=== PATIENT | male | born 1960 | race Caucasian/White ===

== ENCOUNTER 2020-11-08 15:40 | Emergency (ER) | payer OTHER, SELFPAY ==
--- NOTE | 2020-11-08 15:27 | ECG_ITS ---
Test Reason : CHEST PAIN Blood Pressure : / mmHG Vent. Rate : 097 BPM Atrial Rate : 097 BPM P-R Int : 194 ms QRS Dur : 168 ms QT Int : 408 ms P-R-T Axes : 059 117 043 degrees QTc Int : 518 ms Sinus rhythm with occasional Premature ventricular complexes Right bundle branch block Abnormal ECG When compared with ECG of 25-MAR-2019 10:10, Premature ventricular complexes are now Present Referred By: Generic ED Physician Electronically Signed By:Bryan Juarez
[2020-11-08 15:33] VITALS: BP 126/65; PULSE 100; O2SAT 95
[2020-11-08 17:35] VITALS: BP 155/81; PULSE 86; RESP 14; TEMP 36.4; O2SAT 97; BMI 35.4
[2020-11-08 17:52] LABS: MANUAL DIFF FLAG NO
[2020-11-08 17:59] LABS: Basophils Absolute Auto 0.1 X10*3/uL (0.0-0.2); Basophils Percent Auto 0.9 % (0-2); Eosinophils Absolute Auto 0.2 X10*3/uL (0.0-0.4); Eosinophils Percent Auto 1.9 % (0-4); Hematocrit 36.6 % (42-52); Hemoglobin 11.7 g/dl (14.0-18.0); Imm Gran Abs Auto 0.08 X10*3/uL (0.00-0.03); Lymphocytes Absolute Auto 1.1 X10*3/uL (1.2-4.9); Lymphocytes Percent Auto 13.9 % (20-40); Mean Corpuscular Hemoglobin 26.8 pg (27.0-33.0); Mean Corpuscular Volume 83.8 fL (80-98); Mean Platelet Volume 11.6 fL (9.4-12.4); Monocytes Absolute Auto 0.6 X10*3/uL (0.1-1.2); Monocytes Percent Auto 7.5 % (2-11); Neutrophils Absolute Auto 6.2 X10*3/uL (2.0-8.3); Neutrophils Percent Auto 74.8 % (45-73); Platelet Count 117 X10*3/uL (160-400); Red Blood Count 4.37 X10*6/uL (4.60-5.80); Red Cell Distribution Width 14.3 % (11.0-16.0); White Blood Count 8.2 X10*3/uL (4.8-10.8)
[2020-11-08 18:18] LABS: Anion Gap 15 (12-20); Blood Urea Nitrogen 14 mg/dL (9-16); Carbon Dioxide 24 mmol/L (22-29); Chloride 105 mmol/L (96-108); Creatinine Clr Calc Pharmacy 63.5; Estimated Glomerular Filt Rate 47; Glucose Random 153 mg/dL (60-115); Potassium 4.4 mmol/L (3.3-5.1); Sodium 140 mmol/L (135-145)
--- NOTE | 2020-11-08 19:33 | ED_ITS ---
HPI - Chest Pain General Chief Complaint: Chest Pain Stated Complaint: chest pain Time Seen by Provider: 11/08/20 19:33 Source: patient Mode of arrival: ambulatory Limitations: no limitations History of Present Illness HPI narrative: Patient with history of intellectual disability, tetralogy of Fallot status post shunt, AICD placement, asthma, hypothyroidism, seizure disorder, bipolar disorder with frequent chest pain 3 to 4 times a week had cardiac catheterization done in the past which was negative was seen at [facility] today earlier at 03:00 2 sets of cardiac enzymes negative comes here as complaining of similar pain since 16:00 now EKG done was normal sinus rhythm without any ischemic changes Related Data Allergies Allergy/AdvReac Type Severity Reaction Status Date / Time peas Allergy Unknown HIVES Unverified 12/19/19 15:39 From Lipitor Allergy Unknown HIVES Uncoded 12/19/19 15:39 lipitor Allergy Unknown hives, Uncoded 07/03/17 00:00 rash, difficulty breathing peas Allergy Unknown Uncoded 07/03/17 00:00 Review of Systems Review of Systems: Yes all other systems are reviewed and are negative [facility] Past Medical History Medical History Anxiety Artificial cardiac pacemaker Asthma Cardiac defibrillator in place COPD (chronic obstructive pulmonary disease) Depression Developmental delay, mild Diabetes GERD (gastroesophageal reflux disease) History of ETOH abuse Hyperlipidemia Hypertension Hyperthyroidism RBBB Seizure Sleep apnea Surgical History History of cardiac cath Social History Social History Advance Directives: No Physical Exam Vital Signs: Vital Signs: Last Vital Signs Temp 98.7 F 11/08/20 19:34 Pulse 87 11/08/20 19:34 Resp 16 11/08/20 19:34 BP 164/84 H 11/08/20 19:34 Pulse Ox 99 11/08/20 19:34 Body Mass Index 35.4 Appearance: Alert. Oriented X3. No acute distress. Eyes: PERRLA, No Nystagmus ENT: Pharynx normal. Oral Mucosa moist Neck: Normal inspection. Neck supple. CVS: Normal heart rate and rhythm. Pulses normal. Respiratory: No respiratory distress. Equal air entry bilateral, no wheezing/rales/rhonchi Abdomen: Soft and nontender. Bowel sounds are present, no mass palpable, no CVA tenderness Skin: Skin warm and dry. Normal skin color. Normal skin turgor. Extremities: No lower extremity edema. No calf tenderness Neuro: Oriented X 3. MDM - Chest Pain MDM Narrative Medical decision making narrative: Patient with atypical chest pain stable troponin as in the past no acute EKG changes pain similar to that in the pas, t had troponin done in the morning which was also negative will discharge patient home Lab Data Attestation: I reviewed the patient's lab results. Result diagrams: 11/08/20 17:46 11/08/20 17:46 Labs: Lab Results 11/08/20 11/08/20 11/08/20 Range/Units 17:46 17:46 17:46 WBC 8.2 (4.8-10.8) X10*3/uL RBC 4.37 L (4.60-5.80) X10*6/uL Hgb 11.7 L (14.0-18.0) g/dl Hct 36.6 L (42-52) % MCV 83.8 (80-98) fL MCH 26.8 L (27.0-33.0) pg MCHC 32.0 (31.0-36.0) g/dl RDW 14.3 (11.0-16.0) % Plt Count 117 L (160-400) X10*3/uL MPV 11.6 (9.4-12.4) fL Immature Gran % (Auto) 1.0 H (0.0-0.4) % Neut % (Auto) 74.8 H (45-73) % Lymph % (Auto) 13.9 L (20-40) % Runnels % (Auto) 7.5 (2-11) % Eos % (Auto) 1.9 (0-4) % Baso % (Auto) 0.9 (0-2) % Lymph # (Auto) 1.1 L (1.2-4.9) X10*3/uL Runnels # (Auto) 0.6 (0.1-1.2) X10*3/uL Eos # (Auto) 0.2 (0.0-0.4) X10*3/uL Baso # (Auto) 0.1 (0.0-0.2) X10*3/uL Abs Immat Gran (auto) 0.08 H (0.00-0.03) X10*3/uL Absolute Neuts (auto) 6.2 (2.0-8.3) X10*3/uL Absolute Nucleated RBC 0.000 (0.0-0.012) X10*3/uL Nucleated RBC % (auto) 0.0 (0.0-0.2) /100WBC Sodium 140 (135-145) mmol/L Potassium 4.4 (3.3-5.1) mmol/L Chloride 105 (96-108) mmol/L Carbon Dioxide 24 (22-29) mmol/L Anion Gap 15 (12-20) BUN 14 (9-16) mg/dL Creatinine 1.54 H (0.5-1.4) mg/dL Estim Creat Clear Calc 63.5 Estimated GFR 47 Random Glucose 153 H (60-115) mg/dL Calcium 8.0 L (8.4-10.2) mg/dL Troponin I High Sens 8.0 (<3.5-35.0) ng/L ECG Data ECG #1: Attestation: I personally reviewed and interpreted this ECG as follows: Interpretation: Normal sinus rhythm with occasional unifocal PVC admitted branch block bifascicular block heart rate 97 beats per minute no acute ischemic changes no change from the EKG done in the [facility] today Discharge Plan Discharge Clinical Impression: Atypical chest pain Patient Disposition: Home, Self-Care Instructions: Chest Pain (ED) Additional Instructions: Follow-up with your PCP/telephone coin box collector Interventions: ED Discharge Assessment Last Done: 11/08/20 20:25 Discharge Date/Time: 11/08/20 20:25
[2020-11-08 19:34] VITALS: BP 164/84; PULSE 87; RESP 16; TEMP 37.1; O2SAT 99
[2020-11-08] MEDS: Ondansetron ODT 4 MG TAB.RAPDIS TRANSLINGU (20:24)
== END 2020-11-08 20:25 | disposition home or self-care (01) ==
PROVIDERS: Emergency Provider Internal Medicine; PCP Internal Medicine
DX: R07.89 Other chest pain (principal); I10 Essential (primary) hypertension; Z95.0 Presence of cardiac pacemaker
CPT/HCPCS: 36415; 80048; 84484; 85025; 93005; 99283; 99284

== ENCOUNTER 2021-01-02 08:58 | Emergency (ER) | payer OTHER, SELFPAY ==
--- NOTE | ~2021-01-02 | XR_ITS ---
EXAMINATION: XR CHEST CLINICAL INFORMATION: Shortness of breath. COMPARISON: 01/10/2019 chest radiographs. TECHNIQUE: Frontal view of the chest was obtained. FINDINGS: The lungs are clear. The heart and mediastinal structures are unremarkable. Pacemaker devices are noted in place without abnormality. XR/XR chest 1V IMPRESSION: No acute cardiopulmonary process.
[2021-01-02 09:05] VITALS: BP 133/87; PULSE 108; O2SAT 99
[2021-01-02 09:09] VITALS: BP 124/79; PULSE 106; RESP 20; TEMP 36.6; O2SAT 99; BMI 35.4
--- NOTE | 2021-01-02 09:13 | ED_ITS ---
HPI - SOB/Dyspnea General Chief Complaint: Dyspnea Stated Complaint: sob/cough Time Seen by Provider: 01/02/21 09:02 Source: patient Mode of arrival: ambulatory Limitations: no limitations History of Present Illness HPI Narrative: 60 year old male patient with history of intellectual disability, COPD,tetralogy of Fallot status post shunt, AICD placement, asthma, hypothyroidism, seizure disorder, bipolar disorder?presents to the emergency department with non productive cough and SOB X4 days. He states he was at [facility] yesterday and had a COVID test, labs and his entire work up was negative he states they did not give him a breathing treatment, and thats what he wanted. He states he is wheezy and he says i know my body i need one. He has no other concerns at this time. Denies chest pain, fevers, chills, recent sick contacts, changes in bowel habits MD elicited complaint: shortness of breath and cough Pertinent past history: COPD and asthma Onset (ago): day(s) (4) Context: recent illness Timing: intermittent and progressively worsening Severity: moderate Exacerbating factors: lying flat and exertion Relieving factors: bronchodilators Known history of: COPD and asthma Associated symptoms: denies other symptoms Treatment prior to arrival: none Related Data Home oxygen amount: none Previous Rx's Medication Instructions Recorded azithromycin 250 mg tablet See Rx Instructions .ROUTE 01/02/21 (Zithromax Z-Bryan) .COMPLEX #6 tab Allergies Allergy/AdvReac Type Severity Reaction Status Date / Time peas Allergy Unknown HIVES Unverified 12/19/19 15:39 From Lipitor Allergy Unknown HIVES Uncoded 12/19/19 15:39 lipitor Allergy Unknown hives, Uncoded 07/03/17 00:00 rash, difficulty breathing peas Allergy Unknown Uncoded 07/03/17 00:00 Review of Systems Review of Systems: Constitutional: No Fever, No Chills ENT/Mouth: No sore throat, No Rhinorrhea, No Swallowing Difficulty Cardiovascular: No Chest Pain, + SOB, + Orthopnea, No Edema Respiratory: + Cough, No Sputum, No Wheezing, No dyspnea Gastrointestinal: No Nausea, No Vomiting, No Diarrhea, No abdominal Pain Musculoskeletal: No joint pain, No Myalgias Skin: No Skin Lesions, No rash Neuro: No Weakness, No Numbness, No Dizziness, No Headache Psych: + Anxiety/Panic, No Depression Heme/Lymph: No Bruising, No Lymphadenopathy Endocrine: No Polyuria, No Polydipsia [facility] Past Medical History Medical History Anxiety Artificial cardiac pacemaker Asthma Cardiac defibrillator in place COPD (chronic obstructive pulmonary disease) Depression Developmental delay, mild Diabetes GERD (gastroesophageal reflux disease) History of ETOH abuse Hyperlipidemia Hypertension Hyperthyroidism RBBB Seizure Sleep apnea Surgical History History of cardiac cath Social History Social History Alcohol intake: unknown Patient Tobacco Use Status: Tobacco use Unknown Use of substances other than those prescribed or required for medical reasons: Unknown Advance Directives: No Advance Directives Information Provided: No Physical Exam Vital Signs: Vital Signs: Last Vital Signs Temp 97.9 F 01/02/21 09:09 Pulse 106 H 01/02/21 10:04 Resp 20 01/02/21 09:09 BP 124/79 01/02/21 09:09 Pulse Ox 99 01/02/21 09:09 Body Mass Index 35.4 Appearance: Alert. Oriented X3. No acute distress. Eyes: Pupils equal, round and reactive to light. ENT: Pharynx normal. Neck: Normal inspection. Neck supple. CVS: Normal heart rate and rhythm. Pulses normal. Respiratory: No respiratory distress. Breath sounds normal. Abdomen: Soft and nontender. +BS x4 Skin: Skin warm and dry. Normal skin color. Normal skin turgor. No rashes. Extremities: No lower extremity edema. Neuro: Oriented X 3. No motor deficit. No sensory deficit. Anxious Course Course Course Narrative: 60-year-old male with history of intellectual disability, COPD, tetralogy of Fallot status post shunt, AICD placement, asthma, hypothyroidism, seizure disorder, bipolar disorder presents to the ED with cough and SOB X4 days. He states he came in today because he feels like he needs a nebulizing treatment. Although he mentions to the nurses that he has left-sided flank pain, he did not mention this to me. He states he does has discomfort when he coughs. He was discharged from [facility] yesterday, where he had labs, COVID test, and a full workup which was all negative. He states he feels like he is wheezing however upon physical examination there is no wheezing ap preciated. A chest x-ray, COVID swab has been ordered. He will be given a breathing treatment, and plan to discharged home on antibiotics for bronchitis. Reevaluation(s) Reevaluation #1: CXR clear COVID negative. Patient is feeling much better after a Duoneb. He is stable for c/d home. He has an appointment coming up with his Speech Correction Assistant. MDM - SOB/Dyspnea Lab Data Labs: Lab Results 01/02/21 Range/Units 09:22 COVID-19 (CONG) Negative (Negative) COVID-19 Clin Com See Note Critical Care Time Critical Care Time Critical Care Time: No Discharge Plan Discharge Clinical Impression: Cough, Shortness of breath Patient Disposition: Home, Self-Care Instructions: Acute Cough (ED) Additional Instructions: Take your antibiotics as prescribed - as well as your previously prescribed prednisone and inhalers Drink plenty of fluids Your X-ray today showed no pneumonia and you tested negative for COVID Return to the emergency department with new or worsening symptoms Prescriptions: New azithromycin [Zithromax Z-Bryan] 250 mg tablet See Rx Instructions .ROUTE .COMPLEX Qty: 6 RF: 0
[2021-01-02 09:47] LABS: COVID-19 Test Negative (Negative); IDNOW Serial# 9DD0AD1C
[2021-01-02] MEDS: Albuterol/Iprat 2.5/0.5MG 3 ML AMPUL.NEB 1.5 ML INHALE (10:00)
[2021-01-02 10:04] VITALS: PULSE 106; O2SAT 99
== END 2021-01-02 10:50 | disposition home or self-care (01) ==
PROVIDERS: Physician Assistant; Emergency Provider Emergency Medicine; PCP Internal Medicine
DX: R06.02 Shortness of breath (principal); R05.9 Cough, unspecified; Z20.822 Contact with and (suspected) exposure to COVID-19; Z79.899 Other long term (current) drug therapy
CPT/HCPCS: 36415; 71045; 87635; 94640; 99284

== ENCOUNTER 2021-05-13 13:00 | Emergency (ER) | payer OTHER, SELFPAY ==
--- NOTE | 2021-05-13 | ECG_ITS ---
Test Reason : RIGHT ARM PAIN/CHEST PAIN Blood Pressure : / mmHG Vent. Rate : 121 BPM Atrial Rate : 062 BPM P-R Int : 416 ms QRS Dur : 030 ms QT Int : 210 ms P-R-T Axes : 000 076 248 degrees QTc Int : 298 ms Sinus rhythm with 1st degree A-V block with occasional , and consecutive Premature ventricular complexes with junctional escape complexes Right bundle branch block Right axis deviation Low voltage QRS Abnormal ECG When compared with ECG of 08-NOV-2020 15:24, IA interval has increased Referred By: Lindsey Riley Electronically Signed By:Bryan Juarez
--- NOTE | ~2021-05-13 | XR_ITS ---
EXAMINATION: XR CHEST CLINICAL INFORMATION: Chest pain COMPARISON: January 02, 2021 TECHNIQUE: AP portable view of the chest was obtained. FINDINGS: No significant abnormality is noted involving the heart, lungs, mediastinum, bony thorax or soft tissues. AICD in place. XR/XR chest 1V IMPRESSION: No acute disease.
--- NOTE | ~2021-05-13 | CT_ITS ---
EXAMINATION: CT HEAD WITHOUT CONTRAST CT CERVICAL SPINE WITHOUT CONTRAST CLINICAL INFORMATION: Trauma. COMPARISON: Multiple prior studies including most recent CT head and cervical spine 01/10/2019 TECHNIQUE: Imaging was performed from the skull base to vertex without intravenous administration of contrast. In addition, helical noncontrast CT imaging was acquired through the cervical spine and source images were reviewed along with axial reconstructions and sagittal and coronal MPRs. [This CT examination was performed using dose optimization techniques as appropriate, variously including the following: *Automated exposure control *Adjustment of mA and/or kV according to patient size (this includes techniques or standardized protocols for targeted exams where dose is matched to indication/reason for exam; i.e. extremities or head) *Use of iterative reconstruction technique] DLP: 1617 mGy-cm FINDINGS: HEAD: Stable 1 cm ovoid hyperdensity in the left frontal periventricular white matter. No change since CAT scan 09/17/2009 No acute intracranial abnormality. No intracranial mass, hemorrhage, or midline shift is visualized. The ventricles and sulci are proportional. No extra-axial collections are identified. Small retention cyst in the left maxillary sinus. Frontal sinus is hypoplastic. Mastoid air cells and middle ear cavities are normally aerated. CERVICAL SPINE: There is no evidence of acute cervical spine fracture. Vertebral bodies remain normal in height. Cervical vertebrae have normal alignment. There is multilevel degenerative spondylosis of the cervical spine with disc height narrowing and endplate spurs and facet joint arthrosis No pre- or paravertebral soft tissue abnormality is identified. Limited assessment of the lung apices is unremarkable. CT/CT cervical spine wo con IMPRESSION: 1. No acute intracranial pathology. 2. No CT evidence of acute cervical spine fracture or traumatic subluxation
[2021-05-13 13:16] VITALS: BP 105/57; BP 150/70; PULSE 62; PULSE 64; RESP 18; O2SAT 100; O2SAT 95; BMI 35.4
--- NOTE | 2021-05-13 13:30 | PC.NURSE ---
@[phone] CALL PLACED TO [facility] FOR INTERROGATION OF DEFIB AT DR PARKER REQUEST [phone]ING [address] URGENT PAGE OUT TO [facility] TOBACCO DRYING MACHINE OPERATOR ARISTEO OSMAN
--- NOTE | 2021-05-13 13:41 | ED_ITS ---
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 Has a history of AICD. Patient presented today with having lightheadedness subsequently felt something fired on him. [place] a shock. Since then patient has been having chest pain. Over the area of the defibrillator. Patient denies any diaphoresis. Positive history of high choles terol. No history of diabetes, hypertension, mi. Patient had a cardiac catheterization done previously it was grossly negative done at [facility]. Patient was at the store the time. No leg swelling. No bloody stool. No history of the same. No coughing or congestion or upper respiratory symptoms. Patient had his coronavirus vaccine. Patient is mentally challenged. Related Data Previous Rx's Medication Instructions Recorded azithromycin 250 mg tablet See Rx Instructions .ROUTE 01/02/21 (Zithromax Z-Bryan) .COMPLEX #6 tab Allergies Allergy/AdvReac Type Severity Reaction Status Date / Time peas Allergy Unknown HIVES Verified 05/13/21 13:20 From Lipitor Allergy Unknown HIVES Uncoded 05/13/21 13:20 lipitor Allergy Unknown hives, Uncoded 05/13/21 13:20 rash, difficulty breathing peas Allergy Unknown Unknown Uncoded 05/13/21 13:20 Review of Systems Review of Systems: Positive shortness of breath Yes all other systems are reviewed and are negative PMFSH Past Medical History Attestation statement: The following information was validated with the patient. Medical History Anxiety Artificial cardiac pacemaker Asthma Cardiac defibrillator in place COPD (chronic obstructive pulmonary disease) Depression Developmental delay, mild Diabetes GERD (gastroesophageal reflux disease) History of ETOH abuse Hyperlipidemia Hypertension Hyperthyroidism RBBB Seizure Sleep apnea Surgical History History of cardiac cath Social History Social History Alcohol intake: unknown Patient Tobacco Use Status: Tobacco use Unknown Advance Directives: No Advance Directives Information Provided: No Physical Exam Vital Signs: Vital Signs: Last Vital Signs Temp 98.0 F 05/13/21 15:24 Pulse 65 05/13/21 15:24 Resp 16 05/13/21 15:24 BP 120/75 05/13/21 15:24 Pulse Ox 96 05/13/21 15:24 BMI result Body Mass Index 35.4 Appearance: Alert. Oriented X3. No acute distress. Eyes: Pupils equal, round and reactive to light. ENT: Pharynx normal. Neck: Normal inspection. Neck supple. No lymph nodes noted. No crepitus CVS: Normal heart rate and rhythm. Pulses normal. Normal S1 and S2 Respiratory: No respiratory distress. Breath sounds normal. No Wheezing. No rales Abdomen: Soft and nontender. No rigidity. No distention. good BS x4 Skin: Skin warm and dry. Normal skin color. Normal skin turgor. Extremities: No lower extremity edema. Neurovascular intact to all extremities. No Lacerations. No Rash Neuro: Oriented X 3. No motor deficit. No sensory deficit. Moving all extermities. No slurred speech MDM - Chest Pain MDM Narrative Medical decision making narrative: Patient well appearing no distress. EKG is unchanged from previous it showed a sinus pattern heart rate was 60 has a wide QRS that is unchanged from previous patient's electrolytes unremarkable. His AICD was interrogated. The AICD did not fired. Patient's was in a baseline rhythm the whole day. Will discharge patient home. Previously it had a cardiac catheterization at [facility]. The CT was negative for any acute evidence of coronary artery disease. Patient is in stable condition with discharge home Medical Records Data Attestation: I reviewed the patient's medical records. Lab Data Attestation: I reviewed the patient's lab results. Result diagrams: 05/13/21 15:08 05/13/21 15:08 Labs: Lab Results 05/13/21 05/13/21 05/13/21 Range/Units 15:08 15:08 15:08 WBC 7.6 (4.8-10.8) X10*3/uL RBC 4.09 L (4.60-5.80) X10*6/uL Hgb 12.2 L (14.0-18.0) g/dl Hct 37.5 L (42.0-52.0) % MCV 91.7 (80.0-98.0) fL MCH 29.8 (27.0-33.0) pg MCHC 32.5 (31.0-36.0) g/dl RDW 12.9 (11.0-16.0) % Plt Count 103 L (160-400) X10*3/uL MPV 11.4 (9.4-12.4) fL Immature Gran % (Auto) 0.9 H (0.0-0.4) % Neut % (Auto) 68.6 (45-73) % Lymph % (Auto) 16.9 L (20-40) % [place] % (Auto) 7.4 (2-11) % Eos % (Auto) 5.3 H (0-4) % Baso % (Auto) 0.9 (0-2) % Lymph # (Auto) 1.3 (1.2-4.9) X10*3/uL [place] # (Auto) 0.6 (0.1-1.2) X10*3/uL Eos # (Auto) 0.4 (0.0-0.4) X10*3/uL Baso # (Auto) 0.1 (0.0-0.2) X10*3/uL Abs Immat Gran (auto) 0.07 H (0.00-0.03) X10*3/uL Absolute Neuts (auto) 5.2 (2.0-8.3) x10*3/uL Absolute Nucleated RBC 0.000 (0.0-0.012) X10*3/uL Nucleated RBC % (auto) 0.0 (0.0-0.2) /100WBC Sodium 141 (135-145) mmol/L Potassium 4.4 (3.3-5.1) mmol/L Chloride 106 (96-108) mmol/L Carbon Dioxide 28 (22-29) mmol/L Anion Gap 11 L (12-20) BUN 16 (9-16) mg/dL Creatinine 1.20 (0.5-1.4) mg/dL Estim Creat Clear Calc 80.5 Estimated GFR > 60 Random Glucose 113 (60-115) mg/dL Calcium 8.2 L (8.4-10.2) mg/dL Magnesium 2.1 (1.6-2.6) mg/dL Total Bilirubin 1.0 (0.0-1.0) mg/dL Direct Bilirubin 0.4 (0.0-0.5) mg/dL AST 15 (5-37) U/L ALT 14 (0-40) U/L Alkaline Phosphatase 78 (39-117) U/L Troponin I High Sens < 3.5 (<3.5-35.0) ng/L Total Protein 6.3 L (6.5-8.0) g/dL Albumin 3.7 (3.5-5.0) g/dL COVID-19 (CONG) (Negative) COVID-19 Clin Com 05/13/21 Range/Units 15:08 WBC (4.8-10.8) X10*3/uL RBC (4.60-5.80) X10*6/uL Hgb (14.0-18.0) g/dl Hct (42.0-52.0) % MCV (80.0-98.0) fL MCH (27.0-33.0) pg MCHC (31.0-36.0) g/dl RDW (11.0-16.0) % Plt Count (160-400) X10*3/uL MPV (9.4-12.4) fL Immature Gran % (Auto) (0.0-0.4) % Neut % (Auto) (45-73) % Lymph % (Auto) (20-40) % [place] % (Auto) (2-11) % Eos % (Auto) (0-4) % Baso % (Auto) (0-2) % Lymph # (Auto) (1.2-4.9) X10*3/uL [place] # (Auto) (0.1-1.2) X10*3/uL Eos # (Auto) (0.0-0.4) X10*3/uL Baso # (Auto) (0.0-0.2) X10*3/uL Abs Immat Gran (auto) (0.00-0.03) X10*3/uL Absolute Neuts (auto) (2.0-8.3) x10*3/uL Absolute Nucleated RBC (0.0-0.012) X10*3/uL Nucleated RBC % (auto) (0.0-0.2) /100WBC Sodium (135-145) mmol/L Potassium (3.3-5.1) mmol/L Chloride (96-108) mmol/L Carbon Dioxide (22-29) mmol/L Anion Gap (12-20) BUN (9-16) mg/dL Creatinine (0.5-1.4) mg/dL Estim Creat Clear Calc Estimated GFR Random Glucose (60-115) mg/dL Calcium (8.4-10.2) mg/dL Magnesium (1.6-2.6) mg/dL Total Bilirubin (0.0-1.0) mg/dL Direct Bilirubin (0.0-0.5) mg/dL AST (5-37) U/L ALT (0-40) U/L Alkaline Phosphatase (39-117) U/L Troponin I High Sens (<3.5-35.0) ng/L Total Protein (6.5-8.0) g/dL Albumin (3.5-5.0) g/dL COVID-19 (CONG) Negative (Negative) COVID-19 Clin Com See Note Discharge Plan Discharge Clinical Impression: Syncope Patient Disposition: Home, Self-Care Instructions: Syncope (ED) Prescriptions: No Action azithromycin [Zithromax Z-Bryan] 250 mg tablet See Rx Instructions .ROUTE .COMPLEX Qty: 6 0RF Rx Instructions: take 500 mg today (day 1), then 250 mg for 4 days (days 2-5) Referrals: Amari Vyas DO, MD [Primary Care Provider] - 2 days
[2021-05-13] MEDS: ondansetron HCL 4 MG/2 ML VIAL IVPUSH (14:19)
[2021-05-13] MEDS: HYDROmorphone HCl 0.5 MG/0.5 ML SYRINGE IVPUSH (14:19)
[2021-05-13 15:24] VITALS: BP 120/75; PULSE 65; RESP 16; TEMP 36.7; O2SAT 96
[2021-05-13 15:33] LABS: PLT CLUMP 1; SCAN SMEAR FLAG 1
[2021-05-13 15:35] LABS: Basophils Absolute Auto 0.1 X10*3/uL (0.0-0.2); Basophils Percent Auto 0.9 % (0-2); Eosinophils Absolute Auto 0.4 X10*3/uL (0.0-0.4); Eosinophils Percent Auto 5.3 % (0-4); Hematocrit 37.5 % (42.0-52.0); Hemoglobin 12.2 g/dl (14.0-18.0); Imm Gran Abs Auto 0.07 X10*3/uL (0.00-0.03); Imm Gran Pct Auto 0.9 % (0.0-0.4); Lymphocytes Absolute Auto 1.3 X10*3/uL (1.2-4.9); Lymphocytes Percent Auto 16.9 % (20-40); Mean Corpuscular HGB Conc 32.5 g/dl (31.0-36.0); Mean Corpuscular Hemoglobin 29.8 pg (27.0-33.0); Mean Corpuscular Volume 91.7 fL (80.0-98.0); Mean Platelet Volume 11.4 fL (9.4-12.4); Monocytes Absolute Auto 0.6 X10*3/uL (0.1-1.2); Monocytes Percent Auto 7.4 % (2-11); Neutrophils Absolute Auto 5.2 x10*3/uL (2.0-8.3); Neutrophils Percent Auto 68.6 % (45-73); Red Blood Count 4.09 X10*6/uL (4.60-5.80); Red Cell Distribution Width 12.9 % (11.0-16.0)
[2021-05-13 15:36] LABS: COVID-19 Test Negative (Negative)
[2021-05-13 15:37] LABS: Alanine Aminotransferase 14 U/L (0-40); Albumin Level 3.7 g/dL (3.5-5.0); Alkaline Phosphatase 78 U/L (39-117); Anion Gap 11 (12-20); Aspartate Amino Transferase 15 U/L (5-37); Bilirubin Direct 0.4 mg/dL (0.0-0.5); Blood Urea Nitrogen 16 mg/dL (9-16); Calcium 8.2 mg/dL (8.4-10.2); Carbon Dioxide 28 mmol/L (22-29); Chloride 106 mmol/L (96-108); Creatinine Clr Calc Pharmacy 80.5; Estimated Glomerular Filt Rate > 60; Glucose Random 113 mg/dL (60-115); Magnesium 2.1 mg/dL (1.6-2.6); Potassium 4.4 mmol/L (3.3-5.1); Sodium 141 mmol/L (135-145); Total Protein 6.3 g/dL (6.5-8.0)
[2021-05-13 15:38] LABS: Platelet Count 103 X10*3/uL (160-400); White Blood Count 7.6 X10*3/uL (4.8-10.8)
[2021-05-13 15:39] LABS: Troponin-I High Sensitivity < 3.5 ng/L (<3.5-35.0)
[2021-05-13 17:04] LABS: Appearance Urine CLEAR; Color Urine YELLOW; Glucose Urine UA NEG (NEG); Leukocyte Esterase Urine NEG (NEG); Nitrite Urine NEG (NEG); PH 5.5 (5.0-8.0); Specific Gravity - Urine >= 1.030 (1.005-1.025); Urine Blood NEG (NEG); Urine Ketones NEG (NEG); Urine Protein NEG (NEG-TRACE)
[2021-05-13 17:53] LABS: Mucus Urine 1+ /LPF; RBC Urine 0-2 /HPF (0); Squamous Epithelial Cell Urine 1+ /LPF; WBC Urine 0-2 /HPF (0-4)
== END 2021-05-13 21:20 | disposition home or self-care (01) ==
PROVIDERS: Emergency Provider Emergency Medicine Emergency Medical Services; PCP Internal Medicine
DX: R55 Syncope and collapse (principal); R07.89 Other chest pain; M54.9 Dorsalgia, unspecified; Z20.822 Contact with and (suspected) exposure to COVID-19; Z79.899 Other long term (current) drug therapy
CPT/HCPCS: 36415; 70450; 71045; 72125; 80048; 80076; 81001; 83735; 84484; 85025; 87635; 93005; 96374; 96375; 99284; J1170; J2405

== ENCOUNTER 2021-06-20 12:45 | Emergency (ER) | payer OTHER, SELFPAY ==
--- NOTE | ~2021-06-20 | XR_ITS ---
EXAMINATION: XR CHEST CLINICAL INFORMATION: Shortness of breath COMPARISON: May 13, 2021 TECHNIQUE: AP upright portable view of the chest was obtained. FINDINGS: No significant abnormality is noted involving the lungs, mediastinum, bony thorax or soft tissues. There is prominence of the cardiopericardial silhouette. AICD in place. XR/XR chest 1V IMPRESSION: No acute disease.
[2021-06-20 12:53] VITALS: BP 130/83; PULSE 84; RESP 14; TEMP 36.6; O2SAT 97; BMI 35.4
--- NOTE | 2021-06-20 13:12 | ED.CHESTPAIN ---
HPI - Chest Pain General Chief Complaint: Chest Pain Stated Complaint: shock by defib Time Seen by Provider: 06/20/21 13:08 History of Present Illness HPI narrative: Patient is a 61-year-old male with a history of AICD complained that the defibrillator shocked him x1. Patient denies any shortness of breath any chest pain any palpitation at the current time. History of similar symptoms in the past. Patient was sitting at the time under suddenly fired. Patient has no complaint otherwise. Tolerating fluid Related Data Previous Rx's Medication Instructions Recorded azithromycin 250 mg tablet See Rx Instructions .ROUTE 01/02/21 (Zithromax Z-Bryan) .COMPLEX #6 tab Allergies Allergy/AdvReac Type Severity Reaction Status Date / Time peas Allergy Unknown HIVES Verified 05/13/21 13:20 From Lipitor Allergy Unknown HIVES Uncoded 05/13/21 13:20 lipitor Allergy Unknown hives, Uncoded 05/13/21 13:20 rash, difficulty breathing peas Allergy Unknown Unknown Uncoded 05/13/21 13:20 Review of Systems Review of Systems: No fever no chills no dizziness no syncope Also reviewed of the [facility] Past Medical History Attestation statement: The following information was validated with the patient. Medical History Anxiety Artificial cardiac pacemaker Asthma Cardiac defibrillator in place COPD (chronic obstructive pulmonary disease) Depression Developmental delay, mild Diabetes GERD (gastroesophageal reflux disease) History of ETOH abuse Hyperlipidemia Hypertension Hyperthyroidism RBBB Seizure Sleep apnea Surgical History History of cardiac cath Social History Social History Alcohol intake: current Patient Tobacco Use Status: Former Tobacco user Smoked in Last 30 Days: No Use of substances other than those prescribed or required for medical reasons: No Advance Directives: No Advance Directives Information Provided: Yes Physical Exam Vital Signs: Vital Signs: Last Vital Signs Temp 97.9 F 06/20/21 12:53 Pulse 84 06/20/21 12:53 Resp 14 06/20/21 12:53 BP 130/83 06/20/21 12:53 Pulse Ox 97 06/20/21 12:53 BMI result Body Mass Index 35.4 Appearance: Alert. Oriented X3. No acute distress. Eyes: Pupils equal, round and reactive to light. ENT: Pharynx normal. Neck: Normal inspection. Neck supple. No lymph nodes noted. No crepitus CVS: Normal heart rate and rhythm. Pulses normal. Normal S1 and S2 Respiratory: No respiratory distress. Breath sounds normal. No Wheezing. No rales Abdomen: Soft and nontender. No rigidity. No distention. good BS x4 Skin: Skin warm and dry. Normal skin color. Normal skin turgor. Extremities: No lower extremity edema. Neurovascular intact to all extremities. No Lacerations. No Rash Neuro: Oriented X 3. No motor deficit. No sensory deficit. Moving all extermities. No slurred speech MDM - Chest Pain MDM Narrative Medical decision making narrative: Patient's defibrillator interrogated. No arrhythmia no shock was delivered. Electrolytes will be checked. Patient to be discharged home. History of similar episodes in the past. Patient given reassurance. Patient's electrolytes were normal. Patient's EKG showed a sinus pattern heart rate is 70 there is no acute changes when compared to previous EKG. Positive right bundle branch block noted Medical Records Data Attestation: I reviewed the patient's medical records. Lab Data Attestation: I reviewed the patient's lab results. Result diagrams: 06/20/21 13:48 06/20/21 13:48 Labs: Lab Results 06/20/21 06/20/21 06/20/21 Range/Units 13:48 13:48 13:48 WBC 8.2 (4.8-10.8) X10*3/uL RBC 4.03 L (4.60-5.80) X10*6/uL Hgb 12.3 L (14.0-18.0) g/dl Hct 37.3 L (42.0-52.0) % MCV 92.6 (80.0-98.0) fL MCH 30.5 (27.0-33.0) pg MCHC 33.0 (31.0-36.0) g/dl RDW 12.6 (11.0-16.0) % Plt Count 102 L (160-400) X10*3/uL MPV 11.1 (9.4-12.4) fL Immature Gran % (Auto) 1.6 H (0.0-0.4) % Neut % (Auto) 67.3 (45-73) % Lymph % (Auto) 17.6 L (20-40) % [place] % (Auto) 7.4 (2-11) % Eos % (Auto) 4.9 H (0-4) % Baso % (Auto) 1.2 (0-2) % Lymph # (Auto) 1.5 (1.2-4.9) X10*3/uL [place] # (Auto) 0.6 (0.1-1.2) X10*3/uL Eos # (Auto) 0.4 (0.0-0.4) X10*3/uL Baso # (Auto) 0.1 (0.0-0.2) X10*3/uL Abs Immat Gran (auto) 0.13 H (0.00-0.03) X10*3/uL Absolute Neuts (auto) 5.5 (2.0-8.3) x10*3/uL Absolute Nucleated RBC 0.000 (0.0-0.012) X10*3/uL Nucleated RBC % (auto) 0.0 (0.0-0.2) /100WBC Sodium 139 (135-145) mmol/L Potassium 4.2 (3.3-5.1) mmol/L Chloride 108 (96-108) mmol/L Carbon Dioxide 21 L (22-29) mmol/L Anion Gap 14 (12-20) BUN 17 H (9-16) mg/dL Creatinine 1.35 (0.5-1.4) mg/dL Estim Creat Clear Calc 71.6 Estimated GFR 54 Random Glucose 134 H (60-115) mg/dL Calcium 7.4 L D (8.4-10.2) mg/dL Troponin I High Sens < 3.5 (<3.5-35.0) ng/L Discharge Plan Discharge Clinical Impression: Chest pain Patient Disposition: Home, Self-Care Instructions: Chest Pain (DC) Prescriptions: No Action azithromycin [Zithromax Z-Bryan] 250 mg tablet See Rx Instructions .ROUTE .COMPLEX Qty: 6 0RF Rx Instructions: take 500 mg today (day 1), then 250 mg for 4 days (days 2-5) Referrals: Amari Vyas DO, MD [Primary Care Provider] - 2 days
[2021-06-20 13:52] LABS: MANUAL DIFF FLAG NO
[2021-06-20 13:55] LABS: Basophils Absolute Auto 0.1 X10*3/uL (0.0-0.2); Basophils Percent Auto 1.2 % (0-2); Eosinophils Absolute Auto 0.4 X10*3/uL (0.0-0.4); Eosinophils Percent Auto 4.9 % (0-4); Hematocrit 37.3 % (42.0-52.0); Hemoglobin 12.3 g/dl (14.0-18.0); Imm Gran Abs Auto 0.13 X10*3/uL (0.00-0.03); Imm Gran Pct Auto 1.6 % (0.0-0.4); Lymphocytes Absolute Auto 1.5 X10*3/uL (1.2-4.9); Lymphocytes Percent Auto 17.6 % (20-40); Mean Corpuscular Hemoglobin 30.5 pg (27.0-33.0); Mean Corpuscular Volume 92.6 fL (80.0-98.0); Mean Platelet Volume 11.1 fL (9.4-12.4); Monocytes Absolute Auto 0.6 X10*3/uL (0.1-1.2); Monocytes Percent Auto 7.4 % (2-11); Neutrophils Absolute Auto 5.5 x10*3/uL (2.0-8.3); Neutrophils Percent Auto 67.3 % (45-73); Platelet Count 102 X10*3/uL (160-400); Red Blood Count 4.03 X10*6/uL (4.60-5.80); Red Cell Distribution Width 12.6 % (11.0-16.0); White Blood Count 8.2 X10*3/uL (4.8-10.8)
[2021-06-20 14:11] LABS: Anion Gap 14 (12-20); Blood Urea Nitrogen 17 mg/dL (9-16); Calcium 7.4 mg/dL (8.4-10.2); Carbon Dioxide 21 mmol/L (22-29); Chloride 108 mmol/L (96-108); Creatinine Clr Calc Pharmacy 71.6; Estimated Glomerular Filt Rate 54; Glucose Random 134 mg/dL (60-115); Potassium 4.2 mmol/L (3.3-5.1); Sodium 139 mmol/L (135-145)
[2021-06-20 14:13] LABS: Troponin-I High Sensitivity < 3.5 ng/L (<3.5-35.0)
[2021-06-20] MEDS: Acetaminophen 325 MG TABLET 650 MG PO (14:14)
[2021-06-20] MEDS: ondansetron HCL 4 MG/2 ML VIAL IVPUSH (14:15)
--- NOTE | 2021-06-20 14:19 | ECG_ITS ---
Test Reason : chest pain Blood Pressure : / mmHG Vent. Rate : 068 BPM Atrial Rate : 068 BPM P-R Int : 238 ms QRS Dur : 176 ms QT Int : 460 ms P-R-T Axes : 071 111 047 degrees QTc Int : 489 ms Sinus rhythm with 1st degree A-V block Right bundle branch block Abnormal ECG When compared with ECG of 13-MAY-2021 13:17, Premature ventricular complexes are no longer Present Sinus rhythm is no longer with junctional escape complexes Vent. rate has decreased BY 53 BPM Right bundle branch block is now Present Referred By: Lindsey Riley Electronically Signed By:Bryan Juarez
--- NOTE | 2021-06-20 15:56 | PC.NURSE ---
awaiting transport home
== END 2021-06-20 17:20 | disposition home or self-care (01) ==
PROVIDERS: Emergency Provider Emergency Medicine Emergency Medical Services; PCP Internal Medicine
DX: R07.89 Other chest pain (principal); Z87.891 Personal history of nicotine dependence; Z79.899 Other long term (current) drug therapy
CPT/HCPCS: 36415; 71045; 80048; 84484; 85025; 93005; 99285; J2405

== ENCOUNTER 2021-07-23 12:21 | Observation (INO) | payer OTHER, SELFPAY ==
[2021-07-23] VITALS (7 sets, daily range): BP systolic 111–154; BP diastolic 76–102; PULSE 82–109; RESP 13–20; TEMP 35.7–36.9; O2SAT 93–98; BMI 36.9
--- NOTE | 2021-07-23 | ECG_ITS ---
Test Reason : cp Blood Pressure : / mmHG Vent. Rate : 087 BPM Atrial Rate : 087 BPM P-R Int : 232 ms QRS Dur : 184 ms QT Int : 428 ms P-R-T Axes : 061 110 037 degrees QTc Int : 515 ms Sinus rhythm with 1st degree A-V block Right bundle branch block Left posterior fascicular block Abnormal ECG When compared with ECG of 23-JUL-2021 15:40, CT interval has increased No significant changes seen Referred By: Parish Griffin Electronically Signed By:PATO ROMAN MD
--- NOTE | ~2021-07-23 | XR_ITS ---
EXAMINATION: XR CHEST CLINICAL INFORMATION: Chest pain COMPARISON: Chest x-ray 06/20/2021 TECHNIQUE: 2 views of the chest were obtained. FINDINGS: No change in pacemaker leads in the heart. Cardiac mediastinal contours unchanged. No acute abnormality. No pulmonary vascular congestion. Lungs are normally aerated. No pleural effusion and no pneumothorax. Multilevel degenerative spondylosis spine. XR/XR chest 2V IMPRESSION: No acute abnormality of chest.
--- NOTE | 2021-07-23 12:28 | ECG_ITS ---
Test Reason : chest pain Blood Pressure : / mmHG Vent. Rate : 100 BPM Atrial Rate : 100 BPM P-R Int : 198 ms QRS Dur : 174 ms QT Int : 388 ms P-R-T Axes : 069 119 019 degrees QTc Int : 500 ms Normal sinus rhythm with 1st degree A-V block Right bundle branch block Left posterior fascicular block Bifascicular block Abnormal ECG When compared with ECG of 20-JUN-2021 14:22, [place] interval has decreased Referred By: Generic ED Physician Electronically Signed By:PATO ROMAN MD
[2021-07-23 14:49] LABS: MANUAL DIFF FLAG NO
[2021-07-23 14:55] LABS: Basophils Absolute Auto 0.1 X10*3/uL (0.0-0.2); Eosinophils Absolute Auto 0.3 X10*3/uL (0.0-0.4); Eosinophils Percent Auto 4.1 % (0-4); Hematocrit 41.7 % (42.0-52.0); Hemoglobin 14.1 g/dl (14.0-18.0); Imm Gran Abs Auto 0.18 X10*3/uL (0.00-0.03); Imm Gran Pct Auto 2.2 % (0.0-0.4); Lymphocytes Absolute Auto 1.3 X10*3/uL (1.2-4.9); Lymphocytes Percent Auto 15.9 % (20-40); Mean Corpuscular HGB Conc 33.8 g/dl (31.0-36.0); Mean Corpuscular Hemoglobin 30.1 pg (27.0-33.0); Mean Corpuscular Volume 89.1 fL (80.0-98.0); Monocytes Absolute Auto 0.6 X10*3/uL (0.1-1.2); Neutrophils Absolute Auto 5.6 x10*3/uL (2.0-8.3); Neutrophils Percent Auto 69.8 % (45-73); Platelet Count 103 X10*3/uL (160-400); Red Blood Count 4.68 X10*6/uL (4.60-5.80); Red Cell Distribution Width 12.9 % (11.0-16.0)
--- NOTE | 2021-07-23 14:55 | PC.NURSE ---
Pt comes in with complaints of AICD shocking him earlier today, states he had a similar episode approx 1 month ago. Pt states he did not get a call from his [employer] company. Pt is A&Ox4, LCA, SR w/RBBB on monitor and EKG, states intermittant SSCP since earlier today. IV established, labs sent, awaiting MD burch. Call wallace within reach, will continue to monitor.
--- NOTE | 2021-07-23 15:05 | ECG_ITS ---
Test Reason : CHEST PAIN Blood Pressure : / mmHG Vent. Rate : 096 BPM Atrial Rate : 096 BPM P-R Int : 184 ms QRS Dur : 174 ms QT Int : 414 ms P-R-T Axes : 072 118 027 degrees QTc Int : 523 ms Normal sinus rhythm Right bundle branch block Left posterior fascicular block Bifascicular block Abnormal ECG When compared with ECG of 23-JUL-2021 12:30, No significant change was found Referred By: Andreia Landeros Electronically Signed By:PATO ROMAN MD
[2021-07-23 15:10] LABS: Anion Gap 12 (12-20); Blood Urea Nitrogen 16 mg/dL (9-16); Calcium 8.6 mg/dL (8.4-10.2); Carbon Dioxide 29 mmol/L (22-29); Chloride 105 mmol/L (96-108); Creatinine Clr Calc Pharmacy 82.9; Estimated Glomerular Filt Rate > 60; Glucose Random 138 mg/dL (60-115); Potassium 4.6 mmol/L (3.3-5.1); Sodium 141 mmol/L (135-145)
[2021-07-23 15:14] LABS: Troponin-I High Sensitivity 5.9 ng/L (<3.5-35.0)
[2021-07-23] MEDS: Morphine Sulfate 4 MG/ML CARTRIDGE IVPUSH ×2 (15:15→17:23)
[2021-07-23] MEDS: ondansetron HCL 4 MG/2 ML VIAL IVPUSH (15:15)
--- NOTE | 2021-07-23 16:48 | ED_ITS ---
HPI - Chest Pain General Chief Complaint: Chest Pain Stated Complaint: Chest pain' Time Seen by Provider: 07/23/21 14:51 Source: patient Mode of arrival: ambulatory Limitations: no limitations History of Present Illness HPI narrative: 61-year-old male who is seen by [facility] cardiology presents because he feels his defibrillator went off at 12:30 today. He felt a shock. Since then he has had right-sided chest pain. His chest pain feels like a constant pressure and he is nauseous. He sees Dr. Nix at [facility] for cardiology. He has a history of valve surgery as a kid, and has a zipper scar on his chest. States he has no heart palpitations, dizziness, shortness of breath, but has chest pain now. Related Data Previous Rx's Medication Instructions Recorded azithromycin 250 mg tablet See Rx Instructions .ROUTE 01/02/21 (Zithromax Z-Bryan) .COMPLEX #6 tab Allergies Allergy/AdvReac Type Severity Reaction Status Date / Time peas Allergy Unknown HIVES Verified 07/23/21 12:34 From Lipitor Allergy Unknown HIVES Uncoded 07/23/21 12:34 lipitor Allergy Unknown hives, Uncoded 07/23/21 12:34 rash, difficulty breathing peas Allergy Unknown Unknown Uncoded 07/23/21 12:34 Review of Systems Constitutional: Constitutional: Denies body ache(s), Denies chills, Denies fatigue, Denies fever(s), Denies headache(s), Denies malaise and Denies weakness Eyes: Eyes: Denies diplopia ENT: Denies vertigo, Denies dizziness, Denies otalgia, Denies headache(s), Denies mouth pain, Denies post nasal drip, Denies sinus pain, Denies sinus pressure, Denies sore throat and Denies throat swelling Cardiovascular: Cardiovascular: Reports chest pain, Denies syncope, Denies leg edema, Denies lightheadedness, Denies Loss of Consciousness, Denies palpitations and Denies dyspnea Comments: [place] his defibrillator went off, felt a shock Respiratory: Respiratory: Denies chest congestion, Denies cough and Denies dyspnea Gastrointestinal: Gastrointestinal: Denies abdominal pain, Denies hematochezia, Denies constipation, Denies diarrhea, Reports nausea and Denies vomiting Musculoskeletal: Musculoskeletal: Reports no additional musculoskeletal complaints Neurologic: Denies confusion, Denies vertigo, Denies dizziness, Denies syncope, Denies headache(s) and Denies weakness Psychiatric: Psychiatric: Denies anxiety, Denies confusion and Denies depression Endocrine: Endocrine: Denies fatigue and Denies palpitations Allergic/Immunologic: Allergic/Immunologic: Denies throat swelling [facility] Past Medical History Medical History Anxiety Artificial cardiac pacemaker Asthma Cardiac defibrillator in place COPD (chronic obstructive pulmonary disease) Depression Developmental delay, mild Diabetes GERD (gastroesophageal reflux disease) History of ETOH abuse Hyperlipidemia Hypertension Hyperthyroidism RBBB Seizure Sleep apnea Surgical History History of cardiac cath Social History Social History Alcohol intake: current Patient Tobacco Use Status: Former Tobacco user Advance Directives: No Advance Directives Information Provided: Yes Physical Exam Vital Signs: Vital Signs: Last Vital Signs Temp 98.2 F 07/23/21 12:39 Pulse 93 07/23/21 16:03 Resp 15 07/23/21 16:03 BP 111/81 07/23/21 16:03 Pulse Ox 94 07/23/21 16:03 BMI result Body Mass Index 36.9 Const: General: alert and awake; No confusion Nutritional Appearance: obese centrally obese Orientation/consciousness: patient oriented x3 and No confusion Limitations: no limitations HEENT: Head: Yes normal to inspection, Yes normocephalic and Yes atraumatic Ears: hearing grossly normal bilaterally and external ears normal General nose exam: Normal external nose present Face and sinus: Yes normal facial exam Mouth: Normal oral and palatal mucosa present Throat: Yes posterior oropharynx normal Eyes: Conjunctivae: conjunctivae normal Pupils: Equal, round and reactive pupils present EOM: EOMs intact bilaterally Neck: Neck: Yes full ROM, Yes no lymphadenopathy and Yes supple Resp: Effort & Inspection: normal respiratory effort and able to speak in complete sentences Auscultation: clear to auscultation bilaterally, no crackles, no rales, no rhonchi and no wheezes Cardio: Rate: regular rate Rhythm: regular rhythm Heart sounds: S1 normal heart sound present and S2 normal heart sound present GI: Inspection: Yes normal to inspection Palpation (GI): Soft to palpation, nontender, no guarding and not rigid Percussion: Yes normal to percussion Auscultation: normal bowel sounds Skin: General skin exam: no rashes or lesions noted Neuro: General: patient oriented x3 and No confusion Cranial nerves: Yes Equal, round and reactive pupils present Extrem: General: Yes normal to inspection and Yes full ROM Psych: Appearance: grossly normal Affect: normal affect Attitude: amarjit ative Thought process: Normal thought process present Course Course Course Narrative: 61-year-old male presents for chest pain and feeling like his defibrillator went off at 12:30 pm. Patient has nausea. Past medical history includes cardiac catheterization November of 2020, pac emaker/defibrillator, COPD, developmental delay, hypertension, hyperlipidemia, right bundle branch block, sleep apnea. First EKG shows right bundle branch block no acute ischemia. Patient continue s to have chest pain, 2nd EKG done 3 hours later shows no changes. EKG unchanged from June 2021. First troponin is negative, 5.9. Reevaluation(s) Reevaluation #1: Patient's chest pain is mostly resolved, although he states he feels it is starting to come back. No attending physician here is able to interrogate his pacemaker. [place] text with cardiologst Dr Dennison on utility of admitting patient and interrogating his pacemaker here. HEART score of 6 Patient tells me his defibrillator company is [employer]. Patient states he has a fib Dr Dennison states this sounds like an inappropriate dischrge of defibrillator, and that patient should be admitted for observation, and he can interrogate device tomorrow MDM - Chest Pain Lab Data Result diagrams: 07/23/21 14:44 07/23/21 14:44 Labs: Lab Results 07/23/21 07/23/21 07/23/21 Range/Units 14:44 14:44 14:44 WBC 8.0 (4.8-10.8) X10*3/uL RBC 4.68 (4.60-5.80) X10*6/uL Hgb 14.1 (14.0-18.0) g/dl Hct 41.7 L (42.0-52.0) % MCV 89.1 (80.0-98.0) fL MCH 30.1 (27.0-33.0) pg MCHC 33.8 (31.0-36.0) g/dl RDW 12.9 (11.0-16.0) % Plt Count 103 L (160-400) X10*3/uL MPV 11.0 (9.4-12.4) fL Immature Gran % (Auto) 2.2 H (0.0-0.4) % Neut % (Auto) 69.8 (45-73) % Lymph % (Auto) 15.9 L (20-40) % [place] % (Auto) 7.0 (2-11) % Eos % (Auto) 4.1 H (0-4) % Baso % (Auto) 1.0 (0-2) % Lymph # (Auto) 1.3 (1.2-4.9) X10*3/uL [place] # (Auto) 0.6 (0.1-1.2) X10*3/uL Eos # (Auto) 0.3 (0.0-0.4) X10*3/uL Baso # (Auto) 0.1 (0.0-0.2) X10*3/uL Abs Immat Gran (auto) 0.18 H (0.00-0.03) X10*3/uL Absolute Neuts (auto) 5.6 (2.0-8.3) x10*3/uL Absolute Nucleated RBC 0.000 (0.0-0.012) X10*3/uL Nucleated RBC % (auto) 0.0 (0.0-0.2) /100WBC Sodium 141 (135-145) mmol/L Potassium 4.6 (3.3-5.1) mmol/L Chloride 105 (96-108) mmol/L Carbon Dioxide 29 (22-29) mmol/L Anion Gap 12 (12-20) BUN 16 (9-16) mg/dL Creatinine 1.19 (0.5-1.4) mg/dL Estim Creat Clear Calc 82.9 Estimated GFR > 60 Random Glucose 138 H (60-115) mg/dL Calcium 8.6 D (8.4-10.2) mg/dL Troponin I High Sens 5.9 D (<3.5-35.0) ng/L ECG Data ECG #1: Interpretation: 12:30 EKG shows normal sinus at a rate of 100, CO interval 198, QRS 174, QTC 500 which is prolonged, patient has a right bundle-branch block, no ST elevations or depressions. EKG of 06/20/2021 shows right bundle branch block ECG #2: Interpretation: 15:40 sinus at a rate of 96, CO interval 184, QRS 174, QTC 523, right bundle branch block, QTC more prolonged from 1st EKG Scores Heart Score History: -1- moderately suspicious ECG: -1- non specific repolarization disturbance Age: -1- >45 - <65 Risk factory: -2- 3 or more risk factors or treated atherosclerosis Troponin: -0- < or = normal limit Score: 5 Risk: 16.6% Discharge Plan Discharge Clinical Impression: Chest pain, Defibrillator discharge Patient Disposition: Admitted As Inpatient
--- NOTE | 2021-07-23 17:57 | PM.IMHP ---
History of Present Illness Date of Service: 07/23/21 Chief Complaint: AICD Discharge 61-year-old male who is seen by [facility] cardiology presents because he feels his defibrillator went off at 12:30 today. ? He felt a shock.? Since then he has had right-sided chest pain.? His chest pain feels like a constant pressure and he is nauseous. ? He sees Dr. Nix at [facility] for cardiology. Call placed to Cardiology who recommends admit OBS on telemetry and will interrogate AICD and a.m. Review of Systems Review of Systems: Admits to right-sided chest pain that is intermittent Denies shortness of breath Denies nausea vomiting diarrhea Denies fever chills Denies paresthesias [facility] Medical History (Updated 07/23/21 @ 18:02 by Michael Coker DO) Anxiety Artificial cardiac pacemaker Asthma Cardiac defibrillator in place COPD (chronic obstructive pulmonary disease) Depression Developmental delay, mild Diabetes GERD (gastroesophageal reflux disease) History of ETOH abuse Hyperlipidemia Hypertension Hyperthyroidism RBBB Seizure Sleep apnea Surgical History History of cardiac cath Social History (Updated 07/23/21 @ 18:00 by Michael Coker DO) Alcohol intake: former Patient Tobacco Use Status: Former Tobacco user Advance Directives: No Advance Directives Information Provided: Yes Meds Allergies Allergy/AdvReac Type Severity Reaction Status Date / Time peas Allergy Unknown HIVES Verified 07/23/21 12:34 From Lipitor Allergy Unknown HIVES Uncoded 07/23/21 12:34 lipitor Allergy Unknown hives, Uncoded 07/23/21 12:34 rash, difficulty breathing peas Allergy Unknown Unknown Uncoded 07/23/21 12:34 Active Medications: Current Medications Acetaminophen (Acetaminophen 325 Mg Tablet) 650 mg PO Q6H PRN PRN Reason: Pain, Mild (Pain Scale 1-3) Enoxaparin Sodium (Enoxaparin Sodium 40 Mg/0.4 Ml Syringe) 40 mg SUBCUT Q24H RADHA Ondansetron HCl (Ondansetron Hcl 4 Mg/2 Ml Vial) 4 mg IVPUSH Q8H PRN PRN Reason: Nausea and Vomiting Pharmacy Consult (Consult Rx Perform Med Rec) 1 each MISCELLANE ONCE PRN PRN Reason: Consult order Sodium Chloride (0.9 % Sodium Chloride Flush 3 Ml Syringe) 3 ml IVFLUSH QSHIFT [facility] Home Medications Medication Instructions Recorded Confirmed Last Taken Type aspirin 81 mg tablet,delayed 1 tab PO DAILY 07/23/21 Unknown History release cyclobenzaprine 5 mg tablet 1 tab PO DAILY 07/23/21 Unknown History isosorbide mononitrate 30 mg 1 tab PO QAM 07/23/21 Unknown History tablet,extended release 24 hr levothyroxine 75 mcg tablet 1 tab PO QAM 07/23/21 Unknown History lisinopril 2.5 mg tablet 1 tab PO DAILY 07/23/21 Unknown History melatonin 5 mg tablet 1 tab PO BEDTIME 07/23/21 Unknown History naproxen 500 mg tablet 1 tab PO BID 07/23/21 Unknown History olanzapine 2.5 mg tablet mg PO 07/23/21 Unknown History paroxetine HCl 10 mg tablet 1 tab PO QAM 07/23/21 Unknown History trazodone 100 mg tablet 1 tab PO BEDTIME 07/23/21 Unknown History Physical Exam Vital Signs and Narrative: Vital Signs: Last Vital Signs Temp 98.2 F 07/23/21 12:39 Pulse 86 07/23/21 17:53 Resp 17 07/23/21 17:53 BP 125/83 07/23/21 17:53 Pulse Ox 93 07/23/21 17:53 BMI result Body Mass Index 36.9 Const: Other: Awake alert oriented x3 no acute distress Chest: Other: Sternal scar from childhood valvular surgery per patient Resp: Other: Clear to auscultation bilaterally no rales rhonchi or wheezes Cardio: Other: No S4; positive S1-S2; no S3 murmurs rubs or gallops GI: Other: Soft nontender nondistended with normoactive bowel sounds Neuro: Other: Cranial nerves 2-12 grossly intact as tested. Motor is 5/5 all extremities. Sensation is intact. Cognition consistent with developmental delay Extrem: Other: No edema bilaterally Results Labs CBC and Chem 7: 07/23/21 14:44 07/23/21 14:44 Labs: Laboratory Results - last 24 hr 07/23/21 07/23/21 07/23/21 14:44 14:44 14:44 MCV 89.1 MCH 30.1 MCHC 33.8 RDW 12.9 Plt Count 103 L MPV 11.0 Immature Gran % (Auto) 2.2 H Neut % (Auto) 69.8 Lymph % (Auto) 15.9 L [place] % (Auto) 7.0 Eos % (Auto) 4.1 H Baso % (Auto) 1.0 Lymph # (Auto) 1.3 [place] # (Auto) 0.6 Eos # (Auto) 0.3 Baso # (Auto) 0.1 Abs Immat Gran (auto) 0.18 H Absolute Neuts (auto) 5.6 Absolute Nucleated RBC 0.000 Nucleated RBC % (auto) 0.0 Anion Gap 12 Estim Creat Clear Calc 82.9 Estimated GFR > 60 Random Glucose 138 H Calcium 8.6 D Troponin I High Sens 5.9 D Assessment and Plan (1) Defibrillator discharge: Status: Acute (2) Hypertension: Status: Acute (3) Diabetes: Status: Acute (4) COPD (chronic obstructive pulmonary disease): Status: Acute (5) Sleep apnea: Status: Acute Plan 61-year-old male with known history of AICD placement presents after AICD discharge. He states this has happened in the past and there is no difference in his presentation at this time. He does complains of right-sided chest pain that has improved. 1. AICD discharge -cardiology records unavailable at this time -admit to telemetry; cardiology consult in a.m. for interrogation -continue outpatient therapies 2. Hypertension -acceptable control on current therapies -adjust as indicated 3.DMII -states diet control -will follow on list pro correctional scale adjust as indicated -diabetic diet 4. Anxiety/developmental delay -continue all outpatient therapies Full code Lovenox Will require at least 1 midnight going forward to observe on telemetry and interrogation of AICD. This cannot be accomplished in a less acute setting Quality Stroke Does the patient have a stroke diagnosis?: No VTE Prior VTE?: No VTE Risk Level:: Medical - moderate - high VTE Device Contraindication: Treatment Not Indicated VTE Drug Contraindication: N/A - Med Ordered
[2021-07-23 18:14] LABS: COVID-19 Test Negative (Negative)
[2021-07-23 18:19] LABS: Troponin-I High Sensitivity 6.1 ng/L (<3.5-35.0)
--- NOTE | 2021-07-23 18:47 | PHA.MEDREC ---
Pharmacy Consult ? Medication Reconciliation Pharmacy has completed the medication reconciliation. No remarkable issues. Marilin Shah, JanettD
[2021-07-23] MEDS: LORazepam 0.5 MG TABLET PO (19:49)
[2021-07-23] MEDS: Enoxaparin Sodium 40 MG/0.4 ML SYRINGE SUBCUT (19:58)
[2021-07-23] MEDS: Melatonin 3 MG TABLET 6 MG PO (22:36)
[2021-07-23] MEDS: Morphine Sulfate 2 MG/ML CARTRIDGE IVPUSH (22:37)
[2021-07-23] MEDS: Gabapentin 300 MG CAPSULE PO (22:37)
[2021-07-23] MEDS: traZODone HCL 100 MG TABLET PO (22:37)
[2021-07-23 22:55] LABS: Troponin-I High Sensitivity 5.2 ng/L (<3.5-35.0)
--- NOTE | 2021-07-24 | ECG_ITS ---
Test Reason : ed Blood Pressure : / mmHG Vent. Rate : 078 BPM Atrial Rate : 078 BPM P-R Int : 228 ms QRS Dur : 182 ms QT Int : 438 ms P-R-T Axes : 071 119 045 degrees QTc Int : 499 ms Sinus rhythm with 1st degree A-V block Non-specific intra-ventricular conduction block Abnormal ECG When compared with ECG of 23-JUL-2021 21:35, No significant change was found Referred By: Michael Coker Electronically Signed By:PEPE CABALLERO
[2021-07-24 03:58] VITALS: BP 135/74; PULSE 80; RESP 18; TEMP 36.6; O2SAT 93
[2021-07-24] MEDS: Levothyroxine Sodium 75 MCG TABLET PO (06:19)
[2021-07-24 06:42] LABS: MANUAL DIFF FLAG NO
[2021-07-24 07:06] LABS: Basophils Absolute Auto 0.1 X10*3/uL (0.0-0.2); Basophils Percent Auto 1.3 % (0-2); Eosinophils Absolute Auto 0.4 X10*3/uL (0.0-0.4); Eosinophils Percent Auto 6.4 % (0-4); Hematocrit 39.7 % (42.0-52.0); Hemoglobin 13.4 g/dl (14.0-18.0); Imm Gran Abs Auto 0.13 X10*3/uL (0.00-0.03); Imm Gran Pct Auto 1.9 % (0.0-0.4); Lymphocytes Absolute Auto 1.3 X10*3/uL (1.2-4.9); Lymphocytes Percent Auto 18.2 % (20-40); Mean Corpuscular HGB Conc 33.8 g/dl (31.0-36.0); Mean Corpuscular Hemoglobin 30.7 pg (27.0-33.0); Mean Corpuscular Volume 91.1 fL (80.0-98.0); Mean Platelet Volume 11.5 fL (9.4-12.4); Monocytes Absolute Auto 0.7 X10*3/uL (0.1-1.2); Monocytes Percent Auto 9.4 % (2-11); Neutrophils Absolute Auto 4.3 x10*3/uL (2.0-8.3); Neutrophils Percent Auto 62.8 % (45-73); Red Blood Count 4.36 X10*6/uL (4.60-5.80); White Blood Count 6.9 X10*3/uL (4.8-10.8)
[2021-07-24 07:25] LABS: Platelet Count 90 X10*3/uL (160-400)
[2021-07-24 07:31] LABS: Alanine Aminotransferase 11 U/L (0-40); Albumin Level 3.7 g/dL (3.5-5.0); Alkaline Phosphatase 76 U/L (39-117); Anion Gap 11 (12-20); Aspartate Amino Transferase 12 U/L (5-37); Bilirubin Total 0.9 mg/dL (0.0-1.0); Blood Urea Nitrogen 17 mg/dL (9-16); Calcium 8.2 mg/dL (8.4-10.2); Carbon Dioxide 30 mmol/L (22-29); Chloride 102 mmol/L (96-108); Creatinine Clr Calc Pharmacy 85.8; Estimated Glomerular Filt Rate > 60; Glucose Fasting 166 mg/dL (60-99); Potassium 4.6 mmol/L (3.3-5.1); Sodium 138 mmol/L (135-145); Total Protein 6.3 g/dL (6.5-8.0)
[2021-07-24 07:45] VITALS: BP 136/83; PULSE 82; RESP 18; TEMP 36.2; O2SAT 95
--- NOTE | 2021-07-24 08:28 | MHC.CM.PN ---
CM met with Patient at bedside and addressed OCAMPO with him, providing him with the original and placing a copy on the chart. Patient lives in a house with a Roommate and he required no services nor DME ASSISTANT COOK. Patient plans to discuss home PT options with MD. Home with or without services pending PT eval is the goal and CM has initiated and will follow for dc planning. Patient's Sister/Susie is the HCP, Patient has received [employer] vax X2 and PCP is DR. Vyas in [place].
[2021-07-24] MEDS: Aspirin Enteric Coated 81 MG TABLET.DR PO (09:18)
[2021-07-24] MEDS: Gabapentin 300 MG CAPSULE PO (09:18)
[2021-07-24] MEDS: Acetaminophen 325 MG TABLET 650 MG PO (09:18)
[2021-07-24] MEDS: 0.9 % Sodium Chloride Flush 3 ML SYRINGE IVFLUSH (09:19)
[2021-07-24] MEDS: Cyclobenzaprine HCl 5 MG TABLET PO (09:19)
[2021-07-24] MEDS: lisinopriL 2.5 MG TABLET PO (09:19)
[2021-07-24] MEDS: Isosorbide Mononitrate 30 MG TAB.ER.24H PO (09:19)
[2021-07-24] MEDS: Metoprolol Succinate ER 100 MG TAB.ER.24H PO (09:19)
[2021-07-24] MEDS: OLANZapine 2.5 MG TABLET PO (09:20)
[2021-07-24] MEDS: PARoxetine HCL 10 MG TABLET PO (09:20)
[2021-07-24 11:19] VITALS: BP 149/76; PULSE 75; RESP 18; TEMP 36.2; O2SAT 97
--- NOTE | 2021-07-24 12:32 | P.DS_ITS ---
DS: Providers Provider Date of Service: 07/24/21 Date of admission: 07/23/21 17:33 Date of discharge: 07/24/21 Primary care physician: Unknown Physician Consults: 07/23/21 18:59 Consult to Cardiology Routine Consulting Provider: Paul Dennison Reason for consultation: AICD interrogation Has provider been notified: No DS: Diagnosis Discharge Diagnosis (1) Defibrillator discharge: Status: Acute (2) Hypertension: Status: Acute (3) Diabetes: Status: Acute (4) COPD (chronic obstructive pulmonary disease): Status: Acute (5) Sleep apnea: Status: Acute DS: Summary Hospital Course Hospital Course: 61-year-old male who is seen by [facility] cardiology presents because he feels his defibrillator went off at 12:30 today. ? He felt a shock.? Since then he has had right-sided chest pain.? His chest pain feels like a constant pressure and he is nauseous. ? He sees Dr. Nix at [facility] for cardiology.? Call placed to Cardiology who recommends admit OBS on telemetry and will interrogate AICD and a.m. [facility] Patient admitted to telemetry overnight; no acute events overnight. Seen by Cardiology; AICD interrogated and found not to have any recent discharges. Patient is reassured and will be discharged home and resume therapies as pre- hospital Time Spent with Patient Time attestation: Total time spent providing and/or coordinating discharge services: Discharge coordination time: Greater than 30 minutes Quality: Safe Use of Opioids Does Pt have an Active Cancer Diagnosis on the Problem List?: No Quality: Stroke Does the patient have a stroke diagnosis?: No Physical Exam Vital Signs: Vital Signs: Last Vital Signs Temp 97.1 F 07/24/21 11:19 Pulse 75 07/24/21 11:19 Resp 18 07/24/21 11:19 BP 149/76 H 07/24/21 11:19 Pulse Ox 97 07/24/21 11:19 BMI result Body Mass Index 36.9 Const: Other: Awake alert oriented x3 no acute distress Chest: Other: Sternal scar from childhood valvular surgery per patient Resp: Other: Clear to auscultation bilaterally no rales rhonchi or wheezes Cardio: Other: No S4; positive S1-S2; no S3 murmurs rubs or gallops GI: Other: Soft nontender nondistended with normoactive bowel sounds Neuro: Other: Cranial nerves 2-12 grossly intact as tested. Motor is 5/5 all extremities. Sensation is intact. Cognition consistent with developmental delay Extrem: Other: No edema bilaterally DS: Data Data Completed and Pending Labs on day of discharge: Laboratory Results - last 24 hr 07/23/21 07/23/21 07/23/21 14:44 14:44 14:44 WBC 8.0 RBC 4.68 Hgb 14.1 Hct 41.7 L MCV 89.1 MCH 30.1 MCHC 33.8 RDW 12.9 Plt Count 103 L MPV 11.0 Immature Gran % (Auto) 2.2 H Neut % (Auto) 69.8 Lymph % (Auto) 15.9 L [place] % (Auto) 7.0 Eos % (Auto) 4.1 H Baso % (Auto) 1.0 Lymph # (Auto) 1.3 [place] # (Auto) 0.6 Eos # (Auto) 0.3 Baso # (Auto) 0.1 Abs Immat Gran (auto) 0.18 H Absolute Neuts (auto) 5.6 Absolute Nucleated RBC 0.000 Nucleated RBC % (auto) 0.0 Sodium 141 Potassium 4.6 Chloride 105 Carbon Dioxide 29 Anion Gap 12 BUN 16 Creatinine 1.19 Estim Creat Clear Calc 82.9 Estimated GFR > 60 Random Glucose 138 H Fasting Glucose Calcium 8.6 D Total Bilirubin AST ALT Alkaline Phosphatase Troponin I High Sens 5.9 D Total Protein Albumin COVID-19 (CONG) COVID-19 Clin Com 07/23/21 07/23/21 07/23/21 17:48 17:50 21:50 WBC RBC Hgb Hct MCV MCH MCHC RDW Plt Count MPV Immature Gran % (Auto) Neut % (Auto) Lymph % (Auto) [place] % (Auto) Eos % (Auto) Baso % (Auto) Lymph # (Auto) [place] # (Auto) Eos # (Auto) Baso # (Auto) Abs Immat Gran (auto) Absolute Neuts (auto) Absolute Nucleated RBC Nucleated RBC % (auto) Sodium Potassium Chloride Carbon Dioxide Anion Gap BUN Creatinine Estim Creat Clear Calc Estimated GFR Random Glucose Fasting Glucose Calcium Total Bilirubin AST ALT Alkaline Phosphatase Troponin I High Sens 6.1 5.2 Total Protein Albumin COVID-19 (CONG) Negative COVID-19 Clin Com See Note 07/24/21 07/24/21 06:11 06:11 WBC 6.9 RBC 4.36 L Hgb 13.4 L Hct 39.7 L MCV 91.1 MCH 30.7 MCHC 33.8 RDW 13.0 Plt Count 90 L MPV 11.5 Immature Gran % (Auto) 1.9 H Neut % (Auto) 62.8 Lymph % (Auto) 18.2 L [place] % (Auto) 9.4 Eos % (Auto) 6.4 H Baso % (Auto) 1.3 Lymph # (Auto) 1.3 [place] # (Auto) 0.7 Eos # (Auto) 0.4 Baso # (Auto) 0.1 Abs Immat Gran (auto) 0.13 H Absolute Neuts (auto) 4.3 Absolute Nucleated RBC 0.000 Nucleated RBC % (auto) 0.0 Sodium 138 Potassium 4.6 Chloride 102 Carbon Dioxide 30 H Anion Gap 11 L BUN 17 H Creatinine 1.15 Estim Creat Clear Calc 85.8 Estimated GFR > 60 Random Glucose Fasting Glucose 166 H Calcium 8.2 L Total Bilirubin 0.9 AST 12 ALT 11 Alkaline Phosphatase 76 Troponin I High Sens Total Protein 6.3 L Albumin 3.7 COVID-19 (CONG) COVID-19 Clin Com Discharge Plan Discharge Patient Disposition: Home, Self-Care Discharge Diagnosis: Chest pain Referrals: Physician,Unknown J [Primary Care Provider] - 1 Week Discharge Medications: Continued paroxetine HCl 10 mg tablet 1 tab PO DAILY 0RF isosorbide mononitrate 30 mg tablet extended release 24 hr 1 tab PO DAILY 0RF olanzapine 2.5 mg tablet 2.5 mg PO DAILY 0RF aspirin 81 mg tablet,delayed release (DR/EC) 1 tab PO DAILY 0RF levothyroxine 75 mcg tablet 1 tab PO DAILY 0RF trazodone 100 mg tablet 1 tab PO BEDTIME 0RF lisinopril 2.5 mg tablet 1 tab PO DAILY 0RF naproxen 500 mg tablet 1 tab PO BID PRN (Reason: Pain) 0RF cyclobenzaprine 5 mg tablet 1 tab PO DAILY 0RF melatonin 5 mg tablet 1 tab PO BEDTIME 0RF metoprolol succinate 100 mg tablet extended release 24 hr 1 tab PO DAILY 0RF gabapentin 300 mg Capsule 300 mg PO BID 0RF Discharge Orders: Discharge Order (Routine); Ordered 07/24/21 Ordered By: Michael Coker Diet: advance to usual diet Activity on Discharge: As tolerated Stand Alone Forms: Patient Portal Discharge page Care Plan Goals: Resume all previous meds Health Concerns: Follow-up with cardiology as scheduled Plan of Treatment: Follow-up with PCP as scheduled Assessment: See discharge summary
--- NOTE | 2021-07-24 12:38 | MHC.CM.PN ---
Patient has been medically cleared for dc to home today, self care. CM will provide RN with a coupon for a taxi ride home.
--- NOTE | 2021-07-24 13:23 | PM.CNCAR ---
History of Present Illness History of Present Illness Date of Service: 07/24/21 Consult reason: chest pain Chief complaint: AICD discharge Narrative: Patient presented to the hospital yesterday saying that his defibrillator discharge and then he subsequently developed right-sided chest pain. This was relieved with IV morphine. Subsequently last night developed chest pain again which he describes as pressure in the chest again relieved with only IV morphine. EKG did not show any new ischemic changes but shows bifascicular block with right bundle-branch block and left posterior fascicular block. He has remained hemodynamically stable. Troponin see Andreia been within normal limits. He complains of left-sided chest pressure not radiating to left arm which she feels like pressure in his chest. He said he has similar pressure and chest pain the past and has been worked up. He follows with Dr. Nix at [facility] for his defibrillator. He says defibrillator was implanted for atrial fibrillation which is probably not true. He does not know exactly why he has a defibrillator. He has prior history of hypertension, diabetes, sleep apnea, COPD. Review of Systems Constitutional: Constitutional: Reports no additional constitutional complaints Eyes: Eyes: Reports no additional eye complaints Cardiovascular: Cardiovascular: Reports chest pain at rest, Denies rapid heart rate, Denies lightheadedness, Denies Loss of Consciousness and Reports other (ICD discharge as per him) Respiratory: Respiratory: Reports no additional respiratory complaints Gastrointestinal: Gastrointestinal: Reports no additional gastrointestinal complaints Genitourinary: Genitourinary: Reports no additional male genitourinary complaints Musculoskeletal: Musculoskeletal: Reports no additional musculoskeletal complaints Integumentary/Breasts: Skin/Breast: Reports system reviewed and no additional complaints, except as docu Neurologic: Reports system reviewed and no additional complaints, except as documented Psychiatric: Psychiatric: Reports no additional psychiatric complaints [facility] Past Medical History Medical History (Updated 07/23/21 @ 18:02 by Michael Coker DO) Anxiety Artificial cardiac pacemaker Asthma Cardiac defibrillator in place COPD (chronic obstructive pulmonary disease) Depression Developmental delay, mild Diabetes GERD (gastroesophageal reflux disease) History of ETOH abuse Hyperlipidemia Hypertension Hyperthyroidism RBBB Seizure Sleep apnea Surgical History Surgical History History of cardiac cath Social History Social History (Updated 07/23/21 @ 18:00 by Michael Coker DO) Alcohol intake: former Patient Tobacco Use Status: Former Tobacco user service: No Current occupational status: disabled Meds Allergies Allergy/AdvReac Type Severity Reaction Status Date / Time peas Allergy Unknown HIVES Verified 07/23/21 12:34 From Lipitor Allergy Unknown HIVES Uncoded 07/23/21 12:34 lipitor Allergy Unknown hives, Uncoded 07/23/21 12:34 rash, difficulty breathing peas Allergy Unknown Unknown Uncoded 07/23/21 12:34 Active Medications: Current Medications Acetaminophen (Acetaminophen 325 Mg Tablet) 650 mg PO Q6H PRN PRN Reason: Pain, Mild (Pain Scale 1-3) Last Admin: 07/24/21 09:18 Dose: 650 mg Documented by: Aspirin (Aspirin Enteric Coated 81 Mg Tablet.Dr) 81 mg PO DAILY [facility] Last Admin: 07/24/21 09:18 Dose: 81 mg Documented by: Cyclobenzaprine HCl (Cyclobenzaprine Hcl 5 Mg Tablet) 5 mg PO DAILY [facility] Last Admin: 07/24/21 09:19 Dose: 5 mg Documented by: Enoxaparin Sodium (Enoxaparin Sodium 40 Mg/0.4 Ml Syringe) 40 mg SUBCUT Q24H [facility] Last Admin: 07/23/21 19:58 Dose: 40 mg Documented by: Gabapentin (Gabapentin 300 Mg Capsule) 300 mg PO BID [facility] Last Admin: 07/24/21 09:18 Dose: 300 mg Documented by: Isosorbide Mononitrate (Isosorbide Mononitrate 30 Mg Tab.Er.24h) 30 mg PO DAILY [facility]; Protocol Last Admin: 07/24/21 09:19 Dose: 30 mg Documented by: Levothyroxine Sodium (Levothyroxine Sodium 75 Mcg Tablet) 75 mcg PO DAILY@0600 [facility] Last Admin: 07/24/21 06:19 Dose: 75 mcg Documented by: Lisinopril (Lisinopril 2.5 Mg Tablet) 2.5 mg PO DAILY [facility]; Protocol Last Admin: 07/24/21 09:19 Dose: 2.5 mg Documented by: Lorazepam (Lorazepam 0.5 Mg Tablet) 0.5 mg PO Q6H PRN PRN Reason: Anxiety Last Admin: 07/23/21 19:49 Dose: 0.5 mg Documented by: Melatonin (Melatonin 3 Mg Tablet) 6 mg PO BEDTIME [facility] Last Admin: 07/23/21 22:36 Dose: 6 mg Documented by: Metoprolol Succinate (Metoprolol Succinate Er 100 Mg Tab.Er.24h) 100 mg PO DAILY [facility]; Protocol Last Admin: 07/24/21 09:19 Dose: 100 mg Documented by: Olanzapine (Olanzapine 2.5 Mg Tablet) 2.5 mg PO DAILY [facility] Last Admin: 07/24/21 09:20 Dose: 2.5 mg Documented by: Ondansetron HCl (Ondansetron Hcl 4 Mg/2 Ml Vial) 4 mg IVPUSH Q8H PRN PRN Reason: Nausea and Vomiting Paroxetine HCl (Paroxetine Hcl 10 Mg Tablet) 10 mg PO DAILY [facility] Last Admin: 07/24/21 09:20 Dose: 10 mg Documented by: Pharmacy Consult (Consult Rx Perform Med Rec) 1 each MISCELLANE ONCE PRN PRN Reason: Consult order Sodium Chloride (0.9 % Sodium Chloride Flush 3 Ml Syringe) 3 ml IVFLUSH QSHIFT [facility] Last Admin: 07/24/21 09:19 Dose: 3 ml Documented by: Trazodone HCl (Trazodone Hcl 100 Mg Tablet) 100 mg PO BEDTIME [facility] Last Admin: 07/23/21 22:37 Dose: 100 mg Documented by: Home Medications Medication Instructions Recorded Confirmed Last Taken Type aspirin 81 mg tablet,delayed 1 tab PO DAILY 07/23/21 07/23/21 07/23/21 History release cyclobenzaprine 5 mg tablet 1 tab PO DAILY 07/23/21 07/23/21 07/23/21 History gabapentin 300 mg capsule 300 mg PO BID 07/23/21 07/23/21 07/23/21 History isosorbide mononitrate 30 mg 1 tab PO DAILY 07/23/21 07/23/21 07/23/21 History tablet,extended release 24 hr levothyroxine 75 mcg tablet 1 tab PO DAILY 07/23/21 07/23/21 07/23/21 History lisinopril 2.5 mg tablet 1 tab PO DAILY 07/23/21 07/23/21 07/23/21 History melatonin 5 mg tablet 1 tab PO BEDTIME 07/23/21 07/23/21 07/22/21 History metoprolol succinate 100 mg 1 tab PO DAILY 07/23/21 07/23/21 07/23/21 History tablet,extended release 24 hr naproxen 500 mg tablet 1 tab PO BID PRN 07/23/21 07/23/21 Unknown History olanzapine 2.5 mg tablet 2.5 mg PO DAILY 07/23/21 07/23/21 07/23/21 History paroxetine HCl 10 mg tablet 1 tab PO DAILY 07/23/21 07/23/21 07/23/21 History trazodone 100 mg tablet 1 tab PO BEDTIME 07/23/21 07/23/21 07/23/21 History Physical Exam Vital Signs: Vital Signs: Last Vital Signs Temp 97.1 F 07/24/21 11:19 Pulse 75 07/24/21 11:19 Resp 18 07/24/21 11:19 BP 149/76 H 07/24/21 11:19 Pulse Ox 97 07/24/21 11:19 BMI result Body Mass Index 36.9 Const: General: cooperative, comfortable, no acute distress, alert and awake Nutritional Appearance: obese Orientation/consciousness: patient oriented x3 HEENT: Head: Yes normocephalic and Yes atraumatic Neck: Neck: Yes trachea midline, Yes supple and Yes no JVD Resp: Effort & Inspection: normal respiratory effort Auscultation: clear to auscultation bilaterally Cardio: Jugular venous distension: no JVD Palpation: normal PMI Rate: regular rate Rhythm: regular rhythm Heart sounds: S1 normal heart sound present, S2 normal heart sound present, no click, no gallops and no murmurs GI: Auscultation: normal bowel sounds Skin: General skin exam: no rashes or lesions noted Neuro: General: patient oriented x3 and no focal motor deficits Extrem: General: Yes no clubbing, cyanosis or edema Objective Labs and Meds Result diagrams: 07/24/21 06:11 07/24/21 06:11 Lab results: Laboratory Results - last 24 hr 07/23/21 07/23/21 07/23/21 14:44 14:44 14:44 WBC 8.0 RBC 4.68 Hgb 14.1 Hct 41.7 L MCV 89.1 MCH 30.1 MCHC 33.8 RDW 12.9 Plt Count 103 L MPV 11.0 Immature Gran % (Auto) 2.2 H Neut % (Auto) 69.8 Lymph % (Auto) 15.9 L [place] % (Auto) 7.0 Eos % (Auto) 4.1 H Baso % (Auto) 1.0 Lymph # (Auto) 1.3 [place]eman # (Auto) 0.6 Eos # (Auto) 0.3 Baso # (Auto) 0.1 Abs Immat Gran (auto) 0.18 H Absolute Neuts (auto) 5.6 Absolute Nucleated RBC 0.000 Nucleated RBC % (auto) 0.0 Sodium 141 Potassium 4.6 Chloride 105 Carbon Dioxide 29 Anion Gap 12 BUN 16 Creatinine 1.19 Estim Creat Clear Calc 82.9 Estimated GFR > 60 Random Glucose 138 H Fasting Glucose Calcium 8.6 D Total Bilirubin AST ALT Alkaline Phosphatase Troponin I High Sens 5.9 D Total Protein Albumin COVID-19 (CONG) COVID-19 Clin Com 07/23/21 07/23/21 07/23/21 17:48 17:50 21:50 WBC RBC Hgb Hct MCV MCH MCHC RDW Plt Count MPV Immature Gran % (Auto) Neut % (Auto) Lymph % (Auto) [place] % (Auto) Eos % (Auto) Baso % (Auto) Lymph # (Auto) [place]eman # (Auto) Eos # (Auto) Baso # (Auto) Abs Immat Gran (auto) Absolute Neuts (auto) Absolute Nucleated RBC Nucleated RBC % (auto) Sodium Potassium Chloride Carbon Dioxide Anion Gap BUN Creatinine Estim Creat Clear Calc Estimated GFR Random Glucose Fasting Glucose Calcium Total Bilirubin AST ALT Alkaline Phosphatase Troponin I High Sens 6.1 5.2 Total Protein Albumin COVID-19 (CONG) Negative COVID-19 Clin Com See Note 07/24/21 07/24/21 06:11 06:11 WBC 6.9 RBC 4.36 L Hgb 13.4 L Hct 39.7 L MCV 91.1 MCH 30.7 MCHC 33.8 RDW 13.0 Plt Count 90 L MPV 11.5 Immature Gran % (Auto) 1.9 H Neut % (Auto) 62.8 Lymph % (Auto) 18.2 L Hardeman % (Auto) 9.4 Eos % (Auto) 6.4 H Baso % (Auto) 1.3 Lymph # (Auto) 1.3 Hardeman # (Auto) 0.7 Eos # (Auto) 0.4 Baso # (Auto) 0.1 Abs Immat Gran (auto) 0.13 H Absolute Neuts (auto) 4.3 Absolute Nucleated RBC 0.000 Nucleated RBC % (auto) 0.0 Sodium 138 Potassium 4.6 Chloride 102 Carbon Dioxide 30 H Anion Gap 11 L BUN 17 H Creatinine 1.15 Estim Creat Clear Calc 85.8 Estimated GFR > 60 Random Glucose Fasting Glucose 166 H Calcium 8.2 L Total Bilirubin 0.9 AST 12 ALT 11 Alkaline Phosphatase 76 Troponin I High Sens Total Protein 6.3 L Albumin 3.7 COVID-19 (CONG) COVID-19 Clin Com ICD interrogation: dual-chamber [place] ICD in place, evaluated at bedside. No ICD discharge were seen yesterday. No arrhythmias were noted. Atrial pacing thresholds are in our capture mode. Ventricular pacing thresholds are stable. Atrial ventricular sensing is adequate. Pacing and shock lead impedance is stable. Battery life is adequate. Imaging Radiologist's impression: Impressions Chest X-Ray 07/23/21 17:01 IMPRESSION: No acute abnormality of chest. Assessment and Plan (1) Chest pain: Status: Acute Patient chest pain is very atypical for myocardial ischemia. His serial troponins are negative despite prolonged chest pain. His EKG is nonischemic. Cardiac pain appears to be either musculoskeletal or psychological. Can be discharged home from chest pain perspective. Patient also said he had ICD discharge, however ICD interrogation does not reveal any discharge. Again this most likely represents phantom shock. No arrhythmias detected. Continue metoprolol therapy. No other therapy indicated at this point time. Advised to follow-up with his genetic counselor at [facility]. Procedures Date of Service Date of Service: 07/24/21
== END 2021-07-24 14:29 | disposition home or self-care (01) ==
LOC: HO.ED 17:28 → HO.EDOVER 17:52 → HO.IMC 18:25
PROVIDERS: Internal Medicine; Physician Assistant; Admitting Provider Hospitalist; Emergency Provider Emergency Medicine Emergency Medical Services; Visit Provider Hospitalist
DX: R07.9 Chest pain, unspecified (principal); I10 Essential (primary) hypertension; E11.9 Type 2 diabetes mellitus without complications; J44.9 Chronic obstructive pulmonary disease, unspecified; G47.30 Sleep apnea, unspecified; I44.0 Atrioventricular block, first degree; I44.5 Left posterior fascicular block; E78.5 Hyperlipidemia, unspecified; E05.90 Thyrotoxicosis, unspecified without thyrotoxic crisis or storm; K21.9 Gastro-esophageal reflux disease without esophagitis; E66.9 Obesity, unspecified; L90.5 Scar conditions and fibrosis of skin; F41.8 Other specified anxiety disorders; Z87.891 Personal history of nicotine dependence; Z68.36 Body mass index [BMI] 36.0-36.9, adult; Z20.822 Contact with and (suspected) exposure to COVID-19; Z98.890 Other specified postprocedural states; Z88.8 Allergy status to other drugs, medicaments and biological substances; Z91.018 Allergy to other foods; Z79.82 Long term (current) use of aspirin; Z79.899 Other long term (current) drug therapy; Z45.02 Encounter for adjustment and management of automatic implantable cardiac defibrillator
CPT/HCPCS: 36415; 71046; 80048; 80053; 84484; 85025; 87635; 93005; 96372; 96374; 96375; 96376; 99219; 99285; J1650; J2270; J2405

== ENCOUNTER 2021-09-21 09:27 | Inpatient (IN) | payer OTHER, SELFPAY ==
--- NOTE | ~2021-09-21 | XR_ITS ---
EXAMINATION: XR CHEST CLINICAL INFORMATION: Chest pain. COMPARISON: 09/21/2021 TECHNIQUE: Frontal view of the chest was obtained. FINDINGS: The lungs remain hyperexpanded. No focal consolidation. No pleural effusion. Cardiac silhouette is unchanged. Left chest wall pacing device with leads in stable position. XR/XR chest 1V IMPRESSION: No acute abnormality.
--- NOTE | ~2021-09-21 | CT_ITS ---
EXAMINATION: CT ABDOMEN AND PELVIS WITHOUT CONTRAST CLINICAL INFORMATION: Tenderness left costovertebral angle. COMPARISON: 10/29/2016 TECHNIQUE: Multidetector volumetric imaging was performed from the superior aspect of the liver through the pubic symphysis. Sagittal and coronal reformatted images were obtained on the technologist's workstation. This CT examination was performed using dose optimization techniques as appropriate, variously including the following: *Automated exposure control *Adjustment of mA and/or kV according to patient size (this includes techniques or standardized protocols for targeted exams where dose is matched to indication/reason for exam; i.e. extremities or head) *Use of iterative reconstruction technique DLP: 804 mGy-cm FINDINGS: LUNG BASES: Streak artifact produced by cardiac leads. No acute findings in the visualized lung bases. No pulmonary consolidation or pleural effusion at either lung base. LIVER: The liver has normal size, shape, and attenuation. No evidence of liver mass. GALLBLADDER AND BILIARY TREE: Gallbladder is without radiopaque stones, wall thickening or pericholecystic fluid. No dilated bile ducts. PANCREAS: Normal. No edema, pancreatic ductal dilatation or mass. SPLEEN: Normal. ADRENAL GLANDS: Normal. KIDNEYS AND URETERS: The kidneys have normal size and cortical thickness. No perinephric fluid collection. No urolithiasis or hydroureteronephrosis. BLADDER: Urinary bladder is underdistended the bladder wall is chronically circumferentially thickened. No bladder diverticulum or calculus. BOWEL AND PERITONEUM: Stomach and small bowel are unremarkable. There appears to have been remote appendectomy with identification of a residual appendiceal base. This is unchanged in appearance compared to 10/29/2016. No inflammatory changes in the right lower quadrant. Mild diverticulosis of the distal descending and sigmoid colon without diverticulitis. No abdominal free fluid or pneumoperitoneum. Chronic mild haziness of central mesenteric fat is consistent with mild mesenteric panniculitis. ABDOMINAL WALL: Unremarkable. VASCULATURE: Unremarkable. LYMPH NODES: No pathologic sized lymph nodes in the abdomen or pelvis. No inguinal lymphadenopathy. PELVIC VISCERA: Prostate gland is grossly unremarkable. No pelvic mass. No pelvic free fluid. SKELETAL: Mild levocurvature of the degenerated lumbar spine. Facet arthropathy and lumbar spine is worst at the L4-L5 level. Chronic severe loss of disc height at L5-S1, old left pars interarticularis defect of L5 and chronic grade 2 anterolisthesis of L5 on S1. Bilateral neural foraminal stenosis of L5-S1 (left worse than right). CT/CT abdomen pelvis wo con IMPRESSION: * No acute imaging abnormalities in the abdomen or pelvis compared to 10/29/2016. * No evidence of renal calculi or hydroureteronephrosis. * Mild diverticulosis of the distal descending and sigmoid colon without diverticulitis. * Urinary bladder wall is chronically thickened. 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 * Chronic, mild mesenteric panniculitis.
--- NOTE | ~2021-09-21 | XR_ITS ---
EXAMINATION: XR CHEST CLINICAL INFORMATION: Cough, shortness of breath. COMPARISON: 07/23/2021 chest radiographs. TECHNIQUE: 2 views of the chest were obtained. FINDINGS: Support devices: Left-sided pacemaker device appears in good position. No significant abnormality is noted involving the heart, lungs, mediastinum, bony thorax or soft tissues. XR/XR chest 2V IMPRESSION: No acute cardiopulmonary process.
[2021-09-21 09:32] VITALS: BP 171/92; PULSE 100; RESP 20; TEMP 36.6; O2SAT 96; BMI 35.4
--- NOTE | 2021-09-21 10:00 | ED.CHESTPAIN ---
HPI - Chest Pain General Chief Complaint: Chest Pain Stated Complaint: CHEST PAIN, CRISIS Time Seen by Provider: 09/21/21 09:42 Source: patient Mode of arrival: ambulatory Limitations: no limitations History of Present Illness HPI narrative: 61-year-old male with a past medical history of cardiac defibrillator, COPD, anxiety, diabetes, alcohol abuse, hypertension, hyperlipidemia, right bundle branch block, sleep apnea, cardiac catheterization, presents for left-sided chest pain that radiates to left arm and suicidal ideation. Patient also has a cough and sore throat. patient states chest pain started at 11:30 yesterday. He denies nausea, denies shortness of breath. Denies fevers. Has had a cough with phlegm color change and sore throat since yesterday. Patient was seen at [facility] ER and discharged from there at 07:00 this morning. Patient took a bus directly here to [facility]. Patient endorses suicidal ideation. His plan is to take all the pills in his backpack. Tells me he has had 3 prior suicide attempts. States he has had to psychiatric hospital admissions, the last 1 4 months ago. Denies homicidal ideation or auditory or visual hallucinations. States he has been suicidal for 2 days because he is sick of going to the emergency room. States at [facility] he feels the staff think he is faking his symptoms for attention. He was suicidal because he is tired of coming to the emergency room. patient endorses left-sided flank pain and dysuria for the past several days MD complaint: chest pain Pertinent past history: coronary artery disease, [employer] and asthma Onset (ago): day(s) (1) Timing of current episode: constant Prior episodes: Yes Onset: during rest Pain location: left chest Pain radiation: left arm Quality: heaviness Relieving factors: nothing Exacerbating factors: nothing Associated symptoms: cough Treatment prior to arrival: none Risk Factors Coronary artery disease risk factors: diabetes, hyperlipidemia and hypertension Thoracic aortic dissection risk factors: none Related Data Home Medications Medication Instructions Recorded Confirmed aspirin 81 mg tablet,delayed 1 tab PO DAILY 07/23/21 07/23/21 release cyclobenzaprine 5 mg tablet 1 tab PO DAILY 07/23/21 07/23/21 gabapentin 300 mg capsule 300 mg PO BID 07/23/21 07/23/21 isosorbide mononitrate 30 mg 1 tab PO DAILY 07/23/21 07/23/21 tablet,extended release 24 hr levothyroxine 75 mcg tablet 1 tab PO DAILY 07/23/21 07/23/21 lisinopril 2.5 mg tablet 1 tab PO DAILY 07/23/21 07/23/21 melatonin 5 mg tablet 1 tab PO BEDTIME 07/23/21 07/23/21 metoprolol succinate 100 mg 1 tab PO DAILY 07/23/21 07/23/21 tablet,extended release 24 hr naproxen 500 mg tablet 1 tab PO BID PRN Pain 07/23/21 07/23/21 olanzapine 2.5 mg tablet 2.5 mg PO DAILY 07/23/21 07/23/21 paroxetine HCl 10 mg tablet 1 tab PO DAILY 07/23/21 07/23/21 trazodone 100 mg tablet 1 tab PO BEDTIME 07/23/21 07/23/21 Allergies Allergy/AdvReac Type Severity Reaction Status Date / Time peas Allergy Unknown HIVES Verified 07/23/21 12:34 From Lipitor Allergy Unknown HIVES Uncoded 07/23/21 12:34 lipitor Allergy Unknown hives, Uncoded 07/23/21 12:34 rash, difficulty breathing peas Allergy Unknown Unknown Uncoded 07/23/21 12:34 Review of Systems Constitutional: Constitutional: Denies body ache(s), Denies chills, Denies fatigue, Denies fever(s), Denies headache(s), Denies malaise and Denies weakness Eyes: Eyes: Denies diplopia ENT: Denies vertigo, Denies dizziness, Denies otalgia, Denies headache(s), Denies mouth pain, Denies post nasal drip, Denies sinus pain, Denies sinus pressure, Reports sore throat and Denies throat swelling Cardiovascular: Cardiovascular: Reports chest pain, Denies syncope, Denies leg edema, Denies lightheadedness, Denies Loss of Consciousness, Denies palpitations and Denies dyspnea Respiratory: Respiratory: Denies chest congestion, Reports cough and Denies dyspnea Gastrointestinal: Gastrointestinal: Denies abdominal pain, Denies hematochezia, Denies constipation, Denies diarrhea, Denies nausea and Denies vomiting Genitourinary: Genitourinary: Reports dysuria and Reports flank pain Musculoskeletal: Musculoskeletal: Reports no additional musculoskeletal complaints Neurologic: Denies confusion, Denies vertigo, Denies dizziness, Denies syncope, Denies headache(s) and Denies weakness Psychiatric: Psychiatric: Denies anxiety, Denies confusion, Reports depression, Denies visual hallucinations, Denies hallucinations, Denies homicidal ideation and Reports suicidal ideation Endocrine: Endocrine: Denies fatigue and Denies palpitations Allergic/Immunologic: Allergic/Immunologic: Denies throat swelling [facility] Past Medical History Medical History Anxiety Artificial cardiac pacemaker Asthma Cardiac defibrillator in place COPD (chronic obstructive pulmonary disease) Depression Developmental delay, mild Diabetes GERD (gastroesophageal reflux disease) History of ETOH abuse Hyperlipidemia Hypertension Hyperthyroidism RBBB Seizure Sleep apnea Surgical History History of cardiac cath Social History Social History (Updated 07/23/21 @ 18:00 by Michael Coker DO) Alcohol intake: former Patient Tobacco Use Status: Former Tobacco user Advance Directives: No Advance Directives Information Provided: No service: No Current occupational status: disabled Physical Exam Vital Signs: Vital Signs: Last Vital Signs Temp 98 F 09/21/21 09:32 Pulse 101 H 09/21/21 10:27 Resp 18 09/21/21 10:27 BP 171/92 H 09/21/21 09:32 Pulse Ox 96 09/21/21 09:32 O2 Del Method 09/21/21 09:32 BMI result Body Mass Index 35.4 Const: General: alert and awake; No confusion Nutritional Appearance: obese Orientation/consciousness: patient oriented x3 and No confusion Limitations: no limitations HEENT: Head: Yes normal to inspection, Yes normocephalic and Yes atraumatic Ears: hearing grossly normal bilaterally, external ears normal, TM's normal bilaterally and EAC's normal General nose exam: Normal external nose present Face and sinus: Yes normal facial exam and Yes sinuses nontender Mouth: Normal oral and palatal mucosa present Throat: Yes uvula midline and Yes posterior oropharynx abnormal ( Mildly erythematous) Eyes: Conjunctivae: conjunctivae normal Pupils: Equal, round and reactive pupils present EOM: EOMs intact bilaterally Neck: Neck: Yes full ROM, Yes no lymphadenopathy and Yes supple Chest: Chest palpation & inspection: normal inspection of the chest and normal palpation of entire chest wall Resp: Effort & Inspection: normal respiratory effort and able to speak in complete sentences Auscultation: no crackles, no rales, rhonchi, wheezes and diminished lung sounds Cardio: Rate: regular rate Rhythm: regular rhythm Heart sounds: S1 normal heart sound present and S2 normal heart sound present GI: Inspection: Yes Abdominal panniculus present and Yes obesity Palpation (GI): Soft to palpation, nontender, no guarding and not rigid Percussion: Yes normal to percussion Auscultation: normal bowel sounds : General: Yes CVA tenderness on the left Back/Spine/Pelvis: Back: CVA tenderness Skin: General skin exam: no rashes or lesions noted Neuro: General: patient oriented x3 and No confusion Cranial nerves: Yes Equal, round and reactive pupils present Extrem: General: Yes normal to inspection and Yes full ROM Psych: Appearance: grossly normal Affect: normal affect Attitude: cooperative Thought process: Normal thought process present Course Course Course Narrative: 61-year-old male with a past medical history of cardiac stent placement and defibrillator, presents for left-sided chest pain, cough, sore throat, and suicidal ideation. Additionally, patient also endorses dysuria and left-sided flank pain on exam, patient is afebrile with normal vitals. Patient has left-sided CVA tenderness, lungs are wheezy and rhonchorous. Will give nebulizer treatment, Tylenol for chest pain, will test for strep, flu, COVID, will get labs, troponin, EKG, chest x-ray, will get urine and CT abdomen pelvis to rule out stone. Reevaluation(s) Reevaluation #1: EKG shows no acute ischemia, initial troponin is negative, Chest x-ray is negative , shows patient has right bundle-branch block,, chemistry and hematology labs are negative, patient is COVID, flu, strep negative, urine shows no infection or drugs. on reexamination, patient is feeling a little better, states still has chest pain 8/10, lungs show wheezing and rhonchorous but patient is moving more air. Will give aspirin, Motrin, and prednisone CT shows nothing acute, awaiting delta the troponin at 13:30, will refer to crisis at that time if trop remains flat FINDINGS: Support devices: Left-sided pacemaker device appears in good position. No significant abnormality is noted involving the heart, lungs, mediastinum, bony thorax or soft tissues. XR/XR chest 2V IMPRESSION: No acute cardiopulmonary process. CT/CT abdomen pelvis wo con IMPRESSION: *? No acute imaging abnormalities in the abdomen or pelvis compared to 10/29/2016. *? No evidence of renal calculi or hydroureteronephrosis. *? Mild diverticulosis of the distal descending and sigmoid colon without diverticulitis. *? Urinary bladder wall is chronically thickened. 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 *? Chronic, mild mesenteric panniculitis. Reevaluation #2: repeat troponin is negative, patient will be evaluated by crisis now Time: 14:49 Reevaluation #3: patient placed in physician observation at this time, awaiting crisis and behavioral health evaluation MDM - Chest Pain Lab Data Result diagrams: 09/21/21 10:37 09/21/21 10:37 Labs: Lab Results 09/21/21 09/21/21 09/21/21 Range/Units 10:37 10:37 10:37 WBC 4.9 (4.8-10.8) X10*3/uL RBC 4.58 L (4.60-5.80) X10*6/uL Hgb 13.6 L (14.0-18.0) g/dl Hct 41.1 L (42.0-52.0) % MCV 89.7 (80.0-98.0) fL MCH 29.7 (27.0-33.0) pg MCHC 33.1 (31.0-36.0) g/dl RDW 13.3 (11.0-16.0) % Plt Count 86 L (160-400) X10*3/uL MPV 11.5 (9.4-12.4) fL Immature Gran % (Auto) 1.8 H (0.0-0.4) % Neut % (Auto) 66.0 (45-73) % Lymph % (Auto) 14.3 L (20-40) % Beckham % (Auto) 11.6 H (2-11) % Eos % (Auto) 5.1 H (0-4) % Baso % (Auto) 1.2 (0-2) % Lymph # (Auto) 0.7 L (1.2-4.9) X10*3/uL Beckham # (Auto) 0.6 (0.1-1.2) X10*3/uL Eos # (Auto) 0.3 (0.0-0.4) X10*3/uL Baso # (Auto) 0.1 (0.0-0.2) X10*3/uL Abs Immat Gran (auto) 0.09 H (0.00-0.03) X10*3/uL Absolute Neuts (auto) 3.2 (2.0-8.3) x10*3/uL Absolute Nucleated RBC 0.000 (0.0-0.012) X10*3/uL Nucleated RBC % (auto) 0.0 (0.0-0.2) /100WBC Sodium 137 (135-145) mmol/L Potassium 4.5 (3.3-5.1) mmol/L Chloride 105 (96-108) mmol/L Carbon Dioxide 23 (22-29) mmol/L Anion Gap 14 (12-20) BUN 23 H (9-16) mg/dL Creatinine 1.38 (0.5-1.4) mg/dL Estim Creat Clear Calc 70.0 Estimated GFR 53 Random Glucose 145 H (60-115) mg/dL Calcium 8.3 L (8.4-10.2) mg/dL Total Bilirubin 1.1 H (0.0-1.0) mg/dL AST 18 D (5-37) U/L ALT 20 (0-40) U/L Alkaline Phosphatase 81 (39-117) U/L Troponin I High Sens < 3.5 (<3.5-35.0) ng/L Total Protein 7.1 (6.5-8.0) g/dL Albumin 4.2 (3.5-5.0) g/dL Urine Color Urine Appearance Urine pH (5.0-8.0) Ur Specific [place] (1.005-1.025) Urine Protein (NEG-TRACE) MG/DL Urine Glucose (UA) (NEG) MG/DL Urine Ketones (NEG) MG/DL Urine Blood (NEG) Urine Nitrite (NEG) Ur Leukocyte Esterase (NEG) Urine Opiates Screen (Not Detect) Urine Fentanyl Screen (Not Detect) Ur Barbiturates Screen (Not Detect) Ur Phencyclidine Scrn (Not Detect) Ur Amphetamines Screen (Not Detect) U Benzodiazepines Scrn (Not Detect) Urine Cocaine Screen (Not Detect) U Marijuana (THC) Screen (Not Detect) COVID-19 (CONG) (Negative) COVID-19 Clin Com Influenza Type A (ANA) (Negative) Influenza Type B (ANA) (Negative) Influenza A & B Note S. pyogenes GrpA ANA (Negative) 09/21/21 09/21/21 09/21/21 Range/Units 10:37 10:38 10:38 WBC (4.8-10.8) X10*3/uL RBC (4.60-5.80) X10*6/uL Hgb (14.0-18.0) g/dl Hct (42.0-52.0) % MCV (80.0-98.0) fL MCH (27.0-33.0) pg MCHC (31.0-36.0) g/dl RDW (11.0-16.0) % Plt Count (160-400) X10*3/uL MPV (9.4-12.4) fL Immature Gran % (Auto) (0.0-0.4) % Neut % (Auto) (45-73) % Lymph % (Auto) (20-40) % Beckham % (Auto) (2-11) % Eos % (Auto) (0-4) % Baso % (Auto) (0-2) % Lymph # (Auto) (1.2-4.9) X10*3/uL Beckham # (Auto) (0.1-1.2) X10*3/uL Eos # (Auto) (0.0-0.4) X10*3/uL Baso # (Auto) (0.0-0.2) X10*3/uL Abs Immat Gran (auto) (0.00-0.03) X10*3/uL Absolute Neuts (auto) (2.0-8.3) x10*3/uL Absolute Nucleated RBC (0.0-0.012) X10*3/uL Nucleated RBC % (auto) (0.0-0.2) /100WBC Sodium (135-145) mmol/L Potassium (3.3-5.1) mmol/L Chloride (96-108) mmol/L Carbon Dioxide (22-29) mmol/L Anion Gap (12-20) BUN (9-16) mg/dL Creatinine (0.5-1.4) mg/dL Estim Creat Clear Calc Estimated GFR Random Glucose (60-115) mg/dL Calcium (8.4-10.2) mg/dL Total Bilirubin (0.0-1.0) mg/dL AST (5-37) U/L ALT (0-40) U/L Alkaline Phosphatase (39-117) U/L Troponin I High Sens (<3.5-35.0) ng/L Total Protein (6.5-8.0) g/dL Albumin (3.5-5.0) g/dL Urine Color Urine Appearance Urine pH (5.0-8.0) Ur Specific [place] (1.005-1.025) Urine Protein (NEG-TRACE) MG/DL Urine Glucose (UA) (NEG) MG/DL Urine Ketones (NEG) MG/DL Urine Blood (NEG) Urine Nitrite (NEG) Ur Leukocyte Esterase (NEG) Urine Opiates Screen (Not Detect) Urine Fentanyl Screen (Not Detect) Ur Barbiturates Screen (Not Detect) Ur Phencyclidine Scrn (Not Detect) Ur Amphetamines Screen (Not Detect) U Benzodiazepines Scrn (Not Detect) Urine Cocaine Screen (Not Detect) U Marijuana (THC) Screen (Not Detect) COVID-19 (CONG) Negative (Negative) COVID-19 Clin Com See Note Influenza Type A (ANA) Negative (Negative) Influenza Type B (ANA) Negative (Negative) Influenza A & B Note See Note S. pyogenes GrpA ANA Negative (Negative) 09/21/21 09/21/21 09/21/21 Range/Units 10:38 10:38 12:21 WBC (4.8-10.8) X10*3/uL RBC (4.60-5.80) X10*6/uL Hgb (14.0-18.0) g/dl Hct (42.0-52.0) % MCV (80.0-98.0) fL MCH (27.0-33.0) pg MCHC (31.0-36.0) g/dl RDW (11.0-16.0) % Plt Count (160-400) X10*3/uL MPV (9.4-12.4) fL Immature Gran % (Auto) (0.0-0.4) % Neut % (Auto) (45-73) % Lymph % (Auto) (20-40) % Beckham % (Auto) (2-11) % Eos % (Auto) (0-4) % Baso % (Auto) (0-2) % Lymph # (Auto) (1.2-4.9) X10*3/uL Beckham # (Auto) (0.1-1.2) X10*3/uL Eos # (Auto) (0.0-0.4) X10*3/uL Baso # (Auto) (0.0-0.2) X10*3/uL Abs Immat Gran (auto) (0.00-0.03) X10*3/uL Absolute Neuts (auto) (2.0-8.3) x10*3/uL Absolute Nucleated RBC (0.0-0.012) X10*3/uL Nucleated RBC % (auto) (0.0-0.2) /100WBC Sodium (135-145) mmol/L Potassium (3.3-5.1) mmol/L Chloride (96-108) mmol/L Carbon Dioxide (22-29) mmol/L Anion Gap (12-20) BUN (9-16) mg/dL Creatinine (0.5-1.4) mg/dL Estim Creat Clear Calc Estimated GFR Random Glucose (60-115) mg/dL Calcium (8.4-10.2) mg/dL Total Bilirubin (0.0-1.0) mg/dL AST (5-37) U/L ALT (0-40) U/L Alkaline Phosphatase (39-117) U/L Troponin I High Sens < 3.5 (<3.5-35.0) ng/L Total Protein (6.5-8.0) g/dL Albumin (3.5-5.0) g/dL Urine Color STRAW Urine Appearance CLEAR Urine pH 6.0 (5.0-8.0) Ur Specific [place] <= 1.005 (1.005-1.025) Urine Protein NEG (NEG-TRACE) MG/DL Urine Glucose (UA) NEG (NEG) MG/DL Urine Ketones NEG (NEG) MG/DL Urine Blood NEG (NEG) Urine Nitrite NEG (NEG) Ur Leukocyte Esterase NEG (NEG) Urine Opiates Screen Not Detected (Not Detect) Urine Fentanyl Screen Not Detected (Not Detect) Ur Barbiturates Screen Not Detected (Not Detect) Ur Phencyclidine Scrn Not Detected (Not Detect) Ur Amphetamines Screen Not Detected (Not Detect) U Benzodiazepines Scrn Not Detected (Not Detect) Urine Cocaine Screen Not Detected (Not Detect) U Marijuana (THC) Screen Not Detected (Not Detect) COVID-19 (CONG) (Negative) COVID-19 Clin Com Influenza Type A (ANA) (Negative) Influenza Type B (ANA) (Negative) Influenza A & B Note S. pyogenes GrpA ANA (Negative) ECG Data ECG #1: Interpretation: right bundle-branch block, sinus at a rate of 96, CA interval 200, QRS 172, QTC is prolonged at 05:10, no acute ischemia Discharge Plan Discharge Clinical Impression: Suicidal ideation, Chest pain Patient Disposition: Still a Patient Prescriptions: No Action paroxetine HCl 10 mg tablet 1 tab PO DAILY isosorbide mononitrate 30 mg tablet extended release 24 hr 1 tab PO DAILY olanzapine 2.5 mg tablet 2.5 mg PO DAILY aspirin 81 mg tablet,delayed release (DR/EC) 1 tab PO DAILY levothyroxine 75 mcg tablet 1 tab PO DAILY trazodone 100 mg tablet 1 tab PO BEDTIME lisinopril 2.5 mg tablet 1 tab PO DAILY naproxen 500 mg tablet 1 tab PO BID PRN (Reason: Pain) cyclobenzaprine 5 mg tablet 1 tab PO DAILY melatonin 5 mg tablet 1 tab PO BEDTIME metoprolol succinate 100 mg tablet extended release 24 hr 1 tab PO DAILY gabapentin 300 mg Capsule 300 mg PO BID
[2021-09-21] MEDS: Albuterol/Iprat 2.5/0.5MG 3 ML AMPUL.NEB INHALE (10:24)
[2021-09-21 10:27] VITALS: PULSE 101; RESP 18; O2SAT 97
[2021-09-21] MEDS: Acetaminophen 325 MG TABLET 975 MG PO (10:28)
--- NOTE | 2021-09-21 10:35 | PC.NURSE ---
Pt resting comfortably. Meds given as ordered. Pt needs are being met
[2021-09-21 10:46] LABS: MANUAL DIFF FLAG NO
[2021-09-21 10:48] LABS: Appearance Urine CLEAR; Color Urine STRAW; Glucose Urine UA NEG (NEG); Leukocyte Esterase Urine NEG (NEG); Nitrite Urine NEG (NEG); Specific Gravity - Urine <= 1.005 (1.005-1.025); Urine Blood NEG (NEG); Urine Ketones NEG (NEG); Urine Protein NEG (NEG-TRACE)
[2021-09-21 10:50] LABS: Basophils Absolute Auto 0.1 X10*3/uL (0.0-0.2); Basophils Percent Auto 1.2 % (0-2); Eosinophils Absolute Auto 0.3 X10*3/uL (0.0-0.4); Eosinophils Percent Auto 5.1 % (0-4); Hematocrit 41.1 % (42.0-52.0); Hemoglobin 13.6 g/dl (14.0-18.0); Imm Gran Abs Auto 0.09 X10*3/uL (0.00-0.03); Imm Gran Pct Auto 1.8 % (0.0-0.4); Lymphocytes Absolute Auto 0.7 X10*3/uL (1.2-4.9); Lymphocytes Percent Auto 14.3 % (20-40); Mean Corpuscular HGB Conc 33.1 g/dl (31.0-36.0); Mean Corpuscular Hemoglobin 29.7 pg (27.0-33.0); Mean Corpuscular Volume 89.7 fL (80.0-98.0); Mean Platelet Volume 11.5 fL (9.4-12.4); Monocytes Absolute Auto 0.6 X10*3/uL (0.1-1.2); Monocytes Percent Auto 11.6 % (2-11); Neutrophils Absolute Auto 3.2 x10*3/uL (2.0-8.3); Platelet Count 86 X10*3/uL (160-400); Red Blood Count 4.58 X10*6/uL (4.60-5.80); Red Cell Distribution Width 13.3 % (11.0-16.0); White Blood Count 4.9 X10*3/uL (4.8-10.8)
[2021-09-21 11:04] LABS: Amphetamine Screen Urine Not Detected (Not Detect); Barbiturates, Urine Not Detected (Not Detect); Benzodiazepines Screen Urine Not Detected (Not Detect); Cannabinoid Screen Urine Not Detected (Not Detect); Cocaine Screen Urine Not Detected (Not Detect); Fentanyl, urine Not Detected (Not Detect); Opiate Screen Urine Not Detected (Not Detect); Phencyclidine Screen Urine Not Detected (Not Detect)
[2021-09-21 11:05] LABS: Alanine Aminotransferase 20 U/L (0-40); Albumin Level 4.2 g/dL (3.5-5.0); Alkaline Phosphatase 81 U/L (39-117); Anion Gap 14 (12-20); Aspartate Amino Transferase 18 U/L (5-37); Bilirubin Total 1.1 mg/dL (0.0-1.0); Blood Urea Nitrogen 23 mg/dL (9-16); Calcium 8.3 mg/dL (8.4-10.2); Carbon Dioxide 23 mmol/L (22-29); Chloride 105 mmol/L (96-108); Estimated Glomerular Filt Rate 53; Glucose Random 145 mg/dL (60-115); Potassium 4.5 mmol/L (3.3-5.1); Sodium 137 mmol/L (135-145); Total Protein 7.1 g/dL (6.5-8.0)
[2021-09-21 11:07] LABS: COVID-19 Test Negative (Negative)
[2021-09-21 11:07] LABS: IDNOW Serial# 55D5AD1C; Influenza A Negative (Negative); Influenza B2 Negative (Negative)
[2021-09-21 11:11] LABS: Troponin-I High Sensitivity < 3.5 ng/L (<3.5-35.0)
[2021-09-21 11:13] LABS: IDNOW Serial# 08D9AD1C; Strep A Nucleic Acid Negative (Negative)
--- NOTE | 2021-09-21 11:22 | ECG_ITS ---
Test Reason : chest pain Blood Pressure : / mmHG Vent. Rate : 096 BPM Atrial Rate : 096 BPM P-R Int : 200 ms QRS Dur : 172 ms QT Int : 404 ms P-R-T Axes : 055 113 030 degrees QTc Int : 510 ms Normal sinus rhythm Right bundle branch block Abnormal ECG When compared with ECG of 24-JUL-2021 10:47, Right bundle branch block has replaced Non-specific intra-ventricular conduction block Referred By: Andreia Landeros Electronically Signed By:PATO ROMAN MD
[2021-09-21] MEDS: Aspirin 81 MG TAB.CHEW 243 MG PO (12:02)
[2021-09-21] MEDS: predniSONE 20 MG TABLET 60 MG PO (12:03)
[2021-09-21 12:50] LABS: Troponin-I High Sensitivity < 3.5 ng/L (<3.5-35.0)
[2021-09-21 15:12] VITALS: BP 140/75; PULSE 71; RESP 14; TEMP 36.1; O2SAT 95
--- NOTE | 2021-09-21 16:37 | PC.NURSE ---
[facility] smart sheet complete, plan for [facility] to see pt later tonight
--- NOTE | 2021-09-21 21:09 | MHC.CARE ---
Pt signed a CV with CARE at 9pm
[2021-09-22] VITALS (7 sets, daily range): BP systolic 120–209; BP diastolic 56–98; PULSE 87–105; RESP 18–20; TEMP 36.4–36.6; O2SAT 94–97; BMI 36.5
--- NOTE | 2021-09-22 | ECG_ITS ---
Test Reason : CHEST DISCOMFORT Blood Pressure : / mmHG Vent. Rate : 084 BPM Atrial Rate : 084 BPM P-R Int : 214 ms QRS Dur : 184 ms QT Int : 428 ms P-R-T Axes : 070 107 038 degrees QTc Int : 505 ms Sinus rhythm with 1st degree A-V block Right bundle branch block Abnormal ECG When compared with ECG of 21-SEP-2021 11:23, No significant change was found Referred By: Eric Rodriguez Electronically Signed By:PATO ROMAN MD
--- NOTE | 2021-09-22 | ECG_ITS ---
Test Reason : CP Blood Pressure : / mmHG Vent. Rate : 112 BPM Atrial Rate : 112 BPM P-R Int : 184 ms QRS Dur : 156 ms QT Int : 384 ms P-R-T Axes : 055 119 046 degrees QTc Int : 524 ms Sinus tachycardia with occasional Premature ventricular complexes Right bundle branch block Abnormal ECG No previous ECGs available Referred By: Toro Pino Electronically Signed By:PATO ROMAN MD
[2021-09-22] MEDS: traZODone HCL 50 MG TABLET PO (02:24)
[2021-09-22] MEDS: NaPROXEN 500 MG TABLET PO (02:24)
[2021-09-22] MEDS: hydrOXYzine HCL 25 MG TABLET PO (02:24)
--- NOTE | 2021-09-22 04:16 | PC.ADMIT ---
Pt is a 61 yo male admitted to unit after referral from CARE team. Arrived on unit from ED at 0023 on 09/22/21. Legal status: CV. Medical issues are asthma, cardiac pacemaker/defibrillation, COPD, developmental delay, mild diabetes, GERD, hyperlipidemia, HTN, Hyperthyroidism, RBBB, sleep apnea, seizure. Pt also stated that he has hx of passing out at random times, last time was 09/17/[address] [place] [address] [place], states not sure why this happens, possibly seizure related or defib issue? Providers were not able to discern. Pt states he has allergies to lipitor, peas, bee pollen and abilify all of which cause severe anaphylactic reaction. Pt denies substance and ETOH use. Pt states he has been sober for 2.5 years and is a non smoker for the last 30 years. Pt lives in a sober house. Precipitant to admission, per pt and crisis evaluation are that his chronic health issues and increased suicidal thinking brought him first to [facility] [place], then here for his depressive sx when he felt [facility] was dismissive of his mental health concerns. Pt presents as alert, oriented, pleasant, cooperative and talkative, [facility] to [facility] this morning. Provider tomahawk weapon system operator Berny Rodriguez notified of admission and orders obtained. Pt placed on 15 minute safety checks and was able to contract for safety.
[2021-09-22] MEDS: PARoxetine HCL 10 MG TABLET PO (09:04)
[2021-09-22] MEDS: Isosorbide Mononitrate 30 MG TAB.ER.24H PO (09:04)
[2021-09-22] MEDS: lisinopriL 2.5 MG TABLET PO (09:04)
[2021-09-22] MEDS: Levothyroxine Sodium 75 MCG TABLET PO (09:04)
[2021-09-22] MEDS: Aspirin Enteric Coated 81 MG TABLET.DR PO (09:04)
[2021-09-22 09:38] LABS: Alanine Aminotransferase 15 U/L (0-40); Albumin Level 3.8 g/dL (3.5-5.0); Alkaline Phosphatase 85 U/L (39-117); Anion Gap 12 (12-20); Aspartate Amino Transferase 11 U/L (5-37); Bilirubin Total 0.8 mg/dL (0.0-1.0); Blood Urea Nitrogen 20 mg/dL (9-16); Calcium 8.5 mg/dL (8.4-10.2); Carbon Dioxide 27 mmol/L (22-29); Chloride 106 mmol/L (96-108); Cholesterol 182 mg/dL; Creatinine Clr Calc Pharmacy 79.8; Estimated Glomerular Filt Rate > 60; Glucose Fasting 230 mg/dL (60-99); HDL Cholesterol 39 mg/dL; LDL Cholesterol Calculated 122 mg/dl; Potassium 4.9 mmol/L (3.3-5.1); Sodium 140 mmol/L (135-145); Total Protein 6.3 g/dL (6.5-8.0); Triglycerides 109 mg/dL
[2021-09-22 10:21] LABS: Glucose, Whole Blood 221 mg/dL (60-115)
[2021-09-22] MEDS: Aspirin 81 MG TAB.CHEW 324 MG PO (10:25)
[2021-09-22] MEDS: Nitroglycerin 0.4 MG TAB.SUBL SUBLINGUAL (10:30)
--- NOTE | 2021-09-22 10:33 | HO.PSYADMNOT ---
HPI Date of Service: 09/22/21 Chief Complaint: Depression, SI HPI Narrative: 61 yo single white male laura self-presented c/o SI due to chronic medical problems. he reports he had gone to [facility] but they had cleared him medically and did not find him suitable for psychiatric admission, so he came to [facility]. he reported a plan to overdose on his medications, which he brought with him in a backpack. pt was noted to be extremely solicitous of crisis staff and expressing affect incongruent with his stated stated depressed mood but consistent with his stated anxious mood. once on unit, pt c/o severe CP and went to ground in the [place]; rapid response was called and pt was ROMIed after very nearly being discharged to medicine service. met with pt later in the day when things were more calm, but pt was clearly very anxious about his medical status and did c/o SI 2/2 chronic medical problems. agreed to continue current regimen and to investigate whether it would be connelly from cardiology perspective to increase dosages of medications which might prolong QTc. Past Psychiatric History: long h/o crisis evaluations, inpatient stays, reported SI. reported h/o SIB (cutting self with broken CD, taking 8 pills of the same medication at once. both instances occurred while hospitalized). no current outpt providers, PCP prescribes psych meds currently. Medical Evaluation Reviewed: Yes [facility] Medical History Anxiety Artificial cardiac pacemaker Asthma Cardiac defibrillator in place COPD (chronic obstructive pulmonary disease) Depression Developmental delay, mild Diabetes GERD (gastroesophageal reflux disease) History of ETOH abuse Hyperlipidemia Hypertension Hyperthyroidism RBBB Seizure Sleep apnea Surgical History History of cardiac cath Family History: sibs have h/o alcohol use disorder Social History: developmentally disabled. 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 lives in a shared apartment with people he knows from and . he spends time with those friends and with a brother and sister. HS grad with support. mother three years ago, he was very close with her. Substance History: h/o alcohol dependence. sober 2 years, attends . h/o detoxes, [address]. h/o problematic gambling behaviors Trauma History: none described Diagnostics Vital Signs (24Hr): Vital Signs - 24 hr 09/21/21 15:12 09/22/21 00:38 Temperature 97 F 97.7 F Pulse Rate 71 87 Respiratory Rate 14 18 Blood Pressure 140/75 H 136/67 Pulse Oximetry 95 97 Oxygen Delivery Method Room Air Room Air BMI result Body Mass Index 36.5 Labs Results: 09/21/21 10:37 09/22/21 08:39 Labs: Laboratory Results - last 48 hr 09/21/21 09/21/21 09/21/21 10:37 10:37 10:37 WBC 4.9 RBC 4.58 L Hgb 13.6 L Hct 41.1 L MCV 89.7 MCH 29.7 MCHC 33.1 RDW 13.3 Plt Count 86 L MPV 11.5 Immature Gran % (Auto) 1.8 H Neut % (Auto) 66.0 Lymph % (Auto) 14.3 L [place] % (Auto) 11.6 H Eos % (Auto) 5.1 H Baso % (Auto) 1.2 Lymph # (Auto) 0.7 L [place] # (Auto) 0.6 Eos # (Auto) 0.3 Baso # (Auto) 0.1 Abs Immat Gran (auto) 0.09 H Absolute Neuts (auto) 3.2 Absolute Nucleated RBC 0.000 Nucleated RBC % (auto) 0.0 Sodium 137 Potassium 4.5 Chloride 105 Carbon Dioxide 23 Anion Gap 14 BUN 23 H Creatinine 1.38 Estim Creat Clear Calc 70.0 Estimated GFR 53 POC Glucose Random Glucose 145 H Fasting Glucose Calcium 8.3 L Total Bilirubin 1.1 H AST 18 D ALT 20 Alkaline Phosphatase 81 Troponin I High Sens < 3.5 Total Protein 7.1 Albumin 4.2 Triglycerides Cholesterol LDL Cholesterol, Calc HDL Cholesterol Urine Color Urine Appearance Urine pH Ur Specific [place] Urine Protein Urine Glucose (UA) Urine Ketones Urine Blood Urine Nitrite Ur Leukocyte Esterase Urine Opiates Screen Urine Fentanyl Screen Ur Barbiturates Screen Ur Phencyclidine Scrn Ur Amphetamines Screen U Benzodiazepines Scrn Urine Cocaine Screen U Marijuana (THC) Screen COVID-19 (CONG) COVID-19 Clin Com Influenza Type A (ANA) Influenza Type B (ANA) Influenza A & B Note S. pyogenes GrpA ANA 09/21/21 09/21/21 09/21/21 10:37 10:38 10:38 WBC RBC Hgb Hct MCV MCH MCHC RDW Plt Count MPV Immature Gran % (Auto) Neut % (Auto) Lymph % (Auto) [place] % (Auto) Eos % (Auto) Baso % (Auto) Lymph # (Auto) [place] # (Auto) Eos # (Auto) Baso # (Auto) Abs Immat Gran (auto) Absolute Neuts (auto) Absolute Nucleated RBC Nucleated RBC % (auto) Sodium Potassium Chloride Carbon Dioxide Anion Gap BUN Creatinine Estim Creat Clear Calc Estimated GFR POC Glucose Random Glucose Fasting Glucose Calcium Total Bilirubin AST ALT Alkaline Phosphatase Troponin I High Sens Total Protein Albumin Triglycerides Cholesterol LDL Cholesterol, Calc HDL Cholesterol Urine Color Urine Appearance Urine pH Ur Specific [place] Urine Protein Urine Glucose (UA) Urine Ketones Urine Blood Urine Nitrite Ur Leukocyte Esterase Urine Opiates Screen Urine Fentanyl Screen Ur Barbiturates Screen Ur Phencyclidine Scrn Ur Amphetamines Screen U Benzodiazepines Scrn Urine Cocaine Screen U Marijuana (THC) Screen COVID-19 (CONG) Negative COVID-Nubisio Com See Note Influenza Type A (ANA) Negative Influenza Type B (ANA) Negative Influenza A & B Note See Note S. pyogenes GrpA ANA Negative 09/21/21 09/21/21 09/21/21 10:38 10:38 12:21 WBC RBC Hgb Hct MCV MCH MCHC RDW Plt Count MPV Immature Gran % (Auto) Neut % (Auto) Lymph % (Auto) [place] % (Auto) Eos % (Auto) Baso % (Auto) Lymph # (Auto) [place] # (Auto) Eos # (Auto) Baso # (Auto) Abs Immat Gran (auto) Absolute Neuts (auto) Absolute Nucleated RBC Nucleated RBC % (auto) Sodium Potassium Chloride Carbon Dioxide Anion Gap BUN Creatinine Estim Creat Clear Calc Estimated GFR POC Glucose Random Glucose Fasting Glucose Calcium Total Bilirubin AST ALT Alkaline Phosphatase Troponin I High Sens < 3.5 Total Protein Albumin Triglycerides Cholesterol LDL Cholesterol, Calc HDL Cholesterol Urine Color STRAW Urine Appearance CLEAR Urine pH 6.0 Ur Specific [place] <= 1.005 Urine Protein NEG Urine Glucose (UA) NEG Urine Ketones NEG Urine Blood NEG Urine Nitrite NEG Ur Leukocyte Esterase NEG Urine Opiates Screen Not Detected Urine Fentanyl Screen Not Detected Ur Barbiturates Screen Not Detected Ur Phencyclidine Scrn Not Detected Ur Amphetamines Screen Not Detected U Benzodiazepines Scrn Not Detected Urine Cocaine Screen Not Detected U Marijuana (THC) Screen Not Detected COVID-19 (CONG) COVID-19 TrillTip Com Influenza Type A (ANA) Influenza Type B (ANA) Influenza A & B Note S. pyogenes GrpA ANA 09/22/21 09/22/21 08:39 10:17 WBC RBC Hgb Hct MCV MCH MCHC RDW Plt Count MPV Immature Gran % (Auto) Neut % (Auto) Lymph % (Auto) [place] % (Auto) Eos % (Auto) Baso % (Auto) Lymph # (Auto) [place] # (Auto) Eos # (Auto) Baso # (Auto) Abs Immat Gran (auto) Absolute Neuts (auto) Absolute Nucleated RBC Nucleated RBC % (auto) Sodium 140 Potassium 4.9 Chloride 106 Carbon Dioxide 27 Anion Gap 12 BUN 20 H Creatinine 1.23 Estim Creat Clear Calc 79.8 Estimated GFR > 60 POC Glucose 221 H Random Glucose Fasting Glucose 230 H D Calcium 8.5 Total Bilirubin 0.8 AST 11 ALT 15 Alkaline Phosphatase 85 Troponin I High Sens Total Protein 6.3 L Albumin 3.8 Triglycerides 109 Cholesterol 182 LDL Cholesterol, Calc 122 HDL Cholesterol 39 Urine Color Urine Appearance Urine pH Ur Specific [place] Urine Protein Urine Glucose (UA) Urine Ketones Urine Blood Urine Nitrite Ur Leukocyte Esterase Urine Opiates Screen Urine Fentanyl Screen Ur Barbiturates Screen Ur Phencyclidine Scrn Ur Amphetamines Screen U Benzodiazepines Scrn Urine Cocaine Screen U Marijuana (THC) Screen COVID-19 (CONG) COVID-19 Clin Com Influenza Type A (ANA) Influenza Type B (ANA) Influenza A & B Note S. pyogenes GrpA ANA Imaging Radiology Impressions: ITS Impressions Chest X-Ray 09/21/21 10:15 IMPRESSION: No acute cardiopulmonary process. Abdomen/Pelvis CT 09/21/21 10:26 IMPRESSION: * No acute imaging abnormalities in the abdomen or pelvis compared to 10/29/2016. * No evidence of renal calculi or hydroureteronephrosis. * Mild diverticulosis of the distal descending and sigmoid colon without diverticulitis. * Urinary bladder wall is chronically thickened. 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 * Chronic, mild mesenteric panniculitis. Meds/Allergies Allergies Allergies Allergy/AdvReac Type Severity Reaction Status Date / Time aripiprazole [From Abilify] Allergy Severe Rash Verified 09/22/21 02:28 peas Allergy Severe HIVES Verified 09/22/21 02:25 bee pollen [bee stings] AdvReac Severe Anaphylaxis Verified 09/22/21 02:29 lipitor Allergy Severe hives, Uncoded 09/22/21 02:26 rash, difficulty breathing Mental Status Exam Mental Status Exam Narrative: disheveled. no PMA/PMR. cooperative. speech nml in rate, amount, loudness, tone, latency. thoughts linear and logical. affect constricted, hyper-intense, mod-labile (tearful). mood depressed and anxious. endorses SI. no HI/AVH. Assessment & Plan Assessment & Plan (1) Suicidal ideation: Status: Acute Code(s): R45.851 - Suicidal ideations (2) Chest pain: Status: Acute Code(s): R07.9 - Chest pain, unspecified (3) Anxiety: Code(s): F41.9 - Anxiety disorder, unspecified (4) Depression: Code(s): F32.9 - Major depressive disorder, single episode, unspecified (5) Developmental delay, mild: Code(s): R62.50 - Unspecified lack of expected normal physiological development in childhood Plan ROMIed. continue to observe on psych unit. cardiology consult placed. continue home medications regimen. respiratory consult for BiPAP. stabilize, discharge to outpt care. Patient educated on: diagnosis and medication risk/benefits Reason for continued inpatient stay Substantial Risk for: harm to self, inability to function and rapid decompensation
--- NOTE | 2021-09-22 10:33 | PM.PSYDC ---
DS: Providers Provider Date of admission: 09/22/21 00:02 Primary care physician: Amari Vyas DO, MD Consults: 09/22/21 00:03 Consult to Hospitalist Routine Consulting Provider: Hospitalist Reason For Exam: chest discomfot respiratory sx thrombocytopenia DS: Medications Discharge Medications Home Medications: Previous Rx's Medication Instructions Recorded acetaminophen 325 mg tablet 650 mg PO Q6H PRN Headache/Pain 09/22/21 Mild Scale (1-3) #0 tabs aluminum-magnesium hydroxide 200 30 ml PO Q6H PRN Heartburn/Nausea 09/22/21 mg-200 mg/5 mL oral suspension #0 mL (MAG-AL) aspirin 81 mg tablet,delayed 81 mg PO DAILY #0 tabs 09/22/21 release hydroxyzine HCl 25 mg tablet 25 mg PO BEDTIME PRN Anxiety #0 09/22/21 tabs isosorbide mononitrate 30 mg 30 mg PO DAILY #0 tabs 09/22/21 tablet,extended release 24 hr levothyroxine 75 mcg tablet 75 mcg PO DAILY@0630 #0 tabs 09/22/21 lisinopril 2.5 mg tablet 2.5 mg PO DAILY #0 tabs 09/22/21 magnesium hydroxide 400 mg/5 mL 30 ml PO DAILY PRN Constipation #0 09/22/21 oral suspension (Milk of Magnesia) mL naproxen 500 mg tablet 500 mg PO BID PRN Pain, Moderate 09/22/21 (Pain Scale 4-6 #0 tabs nitroglycerin 0.4 mg sublingual 0.4 mg sublingual Q5MX3 PRN chest 09/22/21 tablet (Nitrostat) pain #0 tabs paroxetine HCl 10 mg tablet 10 mg PO DAILY #0 tabs 09/22/21 trazodone 50 mg tablet 50 mg PO BEDTIME PRN Insomnia #0 09/22/21 tabs Data Data Completed and Pending Completed studies during hospitalization [Text1]: 09/21/21 09/21/21 09/21/21 10:37 10:37 10:37 WBC 4.9 RBC 4.58 L Hgb 13.6 L Hct 41.1 L MCV 89.7 MCH 29.7 MCHC 33.1 RDW 13.3 Plt Count 86 L MPV 11.5 Immature Gran % (Auto) 1.8 H Neut % (Auto) 66.0 Lymph % (Auto) 14.3 L [place] % (Auto) 11.6 H Eos % (Auto) 5.1 H Baso % (Auto) 1.2 Lymph # (Auto) 0.7 L [place] # (Auto) 0.6 Eos # (Auto) 0.3 Baso # (Auto) 0.1 Abs Immat Gran (auto) 0.09 H Absolute Neuts (auto) 3.2 Absolute Nucleated RBC 0.000 Nucleated RBC % (auto) 0.0 Sodium 137 Potassium 4.5 Chloride 105 Carbon Dioxide 23 Anion Gap 14 BUN 23 H Creatinine 1.38 Estim Creat Clear Calc 70.0 Estimated GFR 53 POC Glucose Random Glucose 145 H Fasting Glucose Calcium 8.3 L Total Bilirubin 1.1 H AST 18 D ALT 20 Alkaline Phosphatase 81 Troponin I High Sens < 3.5 Total Protein 7.1 Albumin 4.2 Triglycerides Cholesterol LDL Cholesterol, Calc HDL Cholesterol Urine Color Urine Appearance Urine pH Ur Specific [place] Urine Protein Urine Glucose (UA) Urine Ketones Urine Blood Urine Nitrite Ur Leukocyte Esterase Urine Opiates Screen Urine Fentanyl Screen Ur Barbiturates Screen Ur Phencyclidine Scrn Ur Amphetamines Screen U Benzodiazepines Scrn Urine Cocaine Screen U Marijuana (THC) Screen COVID-19 (CONG) COVID-19 Clin Com Influenza Type A (ANA) Influenza Type B (ANA) Influenza A & B Note S. pyogenes GrpA ANA 09/21/21 09/21/21 09/21/21 10:37 10:38 10:38 WBC RBC Hgb Hct MCV MCH MCHC RDW Plt Count MPV Immature Gran % (Auto) Neut % (Auto) Lymph % (Auto) [place] % (Auto) Eos % (Auto) Baso % (Auto) Lymph # (Auto) [place] # (Auto) Eos # (Auto) Baso # (Auto) Abs Immat Gran (auto) Absolute Neuts (auto) Absolute Nucleated RBC Nucleated RBC % (auto) Sodium Potassium Chloride Carbon Dioxide Anion Gap BUN Creatinine Estim Creat Clear Calc Estimated GFR POC Glucose Random Glucose Fasting Glucose Calcium Total Bilirubin AST ALT Alkaline Phosphatase Troponin I High Sens Total Protein Albumin Triglycerides Cholesterol LDL Cholesterol, Calc HDL Cholesterol Urine Color Urine Appearance Urine pH Ur Specific [place] Urine Protein Urine Glucose (UA) Urine Ketones Urine Blood Urine Nitrite Ur Leukocyte Esterase Urine Opiates Screen Urine Fentanyl Screen Ur Barbiturates Screen Ur Phencyclidine Scrn Ur Amphetamines Screen U Benzodiazepines Scrn Urine Cocaine Screen U Marijuana (THC) Screen COVID-19 (CONG) Negative COVID-19 Clin Com See Note Influenza Type A (ANA) Negative Influenza Type B (ANA) Negative Influenza A & B Note See Note S. pyogenes GrpA ANA Negative 09/21/21 09/21/21 09/21/21 10:38 10:38 12:21 WBC RBC Hgb Hct MCV MCH MCHC RDW Plt Count MPV Immature Gran % (Auto) Neut % (Auto) Lymph % (Auto) [place] % (Auto) Eos % (Auto) Baso % (Auto) Lymph # (Auto) [place] # (Auto) Eos # (Auto) Baso # (Auto) Abs Immat Gran (auto) Absolute Neuts (auto) Absolute Nucleated RBC Nucleated RBC % (auto) Sodium Potassium Chloride Carbon Dioxide Anion Gap BUN Creatinine Estim Creat Clear Calc Estimated GFR POC Glucose Random Glucose Fasting Glucose Calcium Total Bilirubin AST ALT Alkaline Phosphatase Troponin I High Sens < 3.5 Total Protein Albumin Triglycerides Cholesterol LDL Cholesterol, Calc HDL Cholesterol Urine Color STRAW Urine Appearance CLEAR Urine pH 6.0 Ur Specific [place] <= 1.005 Urine Protein NEG Urine Glucose (UA) NEG Urine Ketones NEG Urine Blood NEG Urine Nitrite NEG Ur Leukocyte Esterase NEG Urine Opiates Screen Not Detected Urine Fentanyl Screen Not Detected Ur Barbiturates Screen Not Detected Ur Phencyclidine Scrn Not Detected Ur Amphetamines Screen Not Detected U Benzodiazepines Scrn Not Detected Urine Cocaine Screen Not Detected U Marijuana (THC) Screen Not Detected COVID-19 (CONG) COVID-19 Clin Com Influenza Type A (ANA) Influenza Type B (ANA) Influenza A & B Note S. pyogenes GrpA ANA 09/22/21 09/22/21 08:39 10:17 WBC RBC Hgb Hct MCV MCH MCHC RDW Plt Count MPV Immature Gran % (Auto) Neut % (Auto) Lymph % (Auto) [place] % (Auto) Eos % (Auto) Baso % (Auto) Lymph # (Auto) [place] # (Auto) Eos # (Auto) Baso # (Auto) Abs Immat Gran (auto) Absolute Neuts (auto) Absolute Nucleated RBC Nucleated RBC % (auto) Sodium 140 Potassium 4.9 Chloride 106 Carbon Dioxide 27 Anion Gap 12 BUN 20 H Creatinine 1.23 Estim Creat Clear Calc 79.8 Estimated GFR > 60 POC Glucose 221 H Random Glucose Fasting Glucose 230 H D Calcium 8.5 Total Bilirubin 0.8 AST 11 ALT 15 Alkaline Phosphatase 85 Troponin I High Sens Total Protein 6.3 L Albumin 3.8 Triglycerides 109 Cholesterol 182 LDL Cholesterol, Calc 122 HDL Cholesterol 39 Urine Color Urine Appearance Urine pH Ur Specific [place] Urine Protein Urine Glucose (UA) Urine Ketones Urine Blood Urine Nitrite Ur Leukocyte Esterase Urine Opiates Screen Urine Fentanyl Screen Ur Barbiturates Screen Ur Phencyclidine Scrn Ur Amphetamines Screen U Benzodiazepines Scrn Urine Cocaine Screen U Marijuana (THC) Screen COVID-19 (CONG) COVID-19 Clin Com Influenza Type A (ANA) Influenza Type B (ANA) Influenza A & B Note S. pyogenes GrpA ANA Imaging Diagnostic Imaging Impressions Chest X-Ray 09/21/21 10:15 IMPRESSION: No acute cardiopulmonary process. Abdomen/Pelvis CT 09/21/21 10:26 IMPRESSION: * No acute imaging abnormalities in the abdomen or pelvis compared to 10/29/2016. * No evidence of renal calculi or hydroureteronephrosis. * Mild diverticulosis of the distal descending and sigmoid colon without diverticulitis. * Urinary bladder wall is chronically thickened. 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 * Chronic, mild mesenteric panniculitis. DS: Summary Time Spent with Patient Time attestation: Total time spent providing and/or coordinating discharge services: Discharge Plan Discharge Disposition: [facility] Referrals: Amari Vyas DO, MD [Primary Care Provider] - 1 Week Discharge Medications: New isosorbide mononitrate 30 mg Tablet Extended Release 24 Hr 30 mg PO DAILY Qty: 0 0RF Protocol: Hold for SBP< HOLD for SBP < : 90 aspirin 81 mg Tablet,Delayed Release (Dr/Ec) 81 mg PO DAILY Qty: 0 0RF nitroglycerin [Nitrostat] 0.4 mg Tablet, Sublingual 0.4 mg sublingual Q5MX3 PRN (Reason: chest pain) Qty: 0 0RF lisinopril 2.5 mg Tablet 2.5 mg PO DAILY Qty: 0 0RF Protocol: Hold for SBP< HOLD for SBP < : 90 acetaminophen 325 mg Tablet 650 mg PO Q6H PRN (Reason: Headache/Pain Mild Scale (1-3)) Qty: 0 0RF paroxetine HCl 10 mg Tablet 10 mg PO DAILY Qty: 0 0RF naproxen 500 mg Tablet 500 mg PO BID PRN (Reason: Pain, Moderate (Pain Scale 4-6) Qty: 0 0RF trazodone 50 mg Tablet 50 mg PO BEDTIME PRN (Reason: Insomnia) Qty: 0 0RF hydroxyzine HCl 25 mg Tablet 25 mg PO BEDTIME PRN (Reason: Anxiety) Qty: 0 0RF MAG-AL 200-200 mg/5 mL Suspension 30 ml PO Q6H PRN (Reason: Heartburn/Nausea) Qty: 0 0RF magnesium hydroxide [Milk of Magnesia] 400 mg/5 mL Suspension 30 ml PO DAILY PRN (Reason: Constipation) Qty: 0 0RF levothyroxine 75 mcg Tablet 75 mcg PO DAILY@0630 Qty: 0 0RF Discontinued paroxetine HCl 10 mg tablet 1 tab PO DAILY isosorbide mononitrate 30 mg tablet extended release 24 hr 1 tab PO DAILY olanzapine 2.5 mg tablet 2.5 mg PO BID aspirin 81 mg tablet,delayed release (DR/EC) 1 tab PO DAILY levothyroxine 75 mcg tablet 1 tab PO DAILY trazodone 100 mg tablet 1 tab PO BEDTIME lisinopril 2.5 mg tablet 1 tab PO DAILY naproxen 500 mg tablet 1 tab PO BID PRN (Reason: Pain) cyclobenzaprine 5 mg tablet 1 tab PO DAILY melatonin 5 mg tablet 1 tab PO BEDTIME Discharge Orders: Discharge Order (Routine); Ordered 09/22/21 Ordered By: Hema Zeng Forms: Patient Portal Discharge page Care Plan Goals: rule out OR Health Concerns: chest pain chronic medical problems Plan of Treatment: inpatient medical care Assessment: expressing SI without plan or intent
[2021-09-22 11:05] LABS: B Type Natriuretic Peptide 87 pg/mL (<100); Troponin-I High Sensitivity < 3.5 ng/L (<3.5-35.0)
[2021-09-22 12:54] LABS: Glucose, Whole Blood 184 mg/dL (60-115)
[2021-09-22 14:48] LABS: Troponin-I High Sensitivity 4.8 ng/L (<3.5-35.0)
[2021-09-22] MEDS: LORazepam 1 MG TABLET PO (15:08)
[2021-09-22] MEDS: OLANZapine 2.5 MG TABLET PO (15:08)
[2021-09-22] MEDS: Gabapentin 300 MG CAPSULE PO ×2 (15:08→22:57)
[2021-09-22] MEDS: Metoprolol Succinate ER 100 MG TAB.ER.24H PO (15:29)
--- NOTE | 2021-09-22 15:40 | P.CONHOSP_ITS ---
History of Present Illness Data of Consult Service Date: 09/22/21 [place] [facility] [place] Primary Care Provider: Amari Vyas DO, MD HPI Reason for consult: chest discomfort 61yo M with hx Tetralogy of Fallot s/p surgical repair in 1969, trifascicular block s/p AICD 2008 with generator change in 2016, pAF, obesity, HTN, HLD, asthma, PONCE on BiPAP, GERD, DM2, hypothyroidism, possible seizure disorder, bipolar disorder, somatoform disorder, polysubstance abuse, and cognitive delay admitted to inpatient psychiatry with SI. He actually presented to the [place] ED just after being sent home from the [facility] ED yesterday morning. Rapid response was called this morning due to severe 10/10 chest pain radiating to the left arm. Pain is both sharp and squeezing, nonexertional, and partially worsened by pressing on the chest. Associated dyspnea but no wheezing. No di aphoresis. He was hypertensive (209/98) at the time. He was given 324 mg of ASA and NTG 0.4 mg SL x2. Initial hs-Tn-I <3.5, repeat 4.8; BNP 87; CXR without any infiltrates. BP now 127/75 and chest pain is much improved. Of note, he was just admitted to [facility] [place]21 for chest pain and ACS was ruled out. He's had 6 admissions over the past year for the same complaint. He is followed by Joyce Aguero NP of [facility] and is scheduled for outpatient stress test. Review of Systems Review of Systems: Yes all other systems are reviewed and are negative [facility] Medical History Anxiety Artificial cardiac pacemaker Asthma Cardiac defibrillator in place COPD (chronic obstructive pulmonary disease) Depression Developmental delay, mild Diabetes GERD (gastroesophageal reflux disease) History of ETOH abuse Hyperlipidemia Hypertension Hyperthyroidism RBBB Seizure Sleep apnea Surgical History History of cardiac cath Social History Household Members: Other Housing: Other Housing Other:: Sober House Do you presently have visiting nurse or other home services: No Alcohol intake: former Patient Tobacco Use Status: Former Tobacco user Quit Date: 30 years Tobacco use type: Cigarette Smoked in Last 30 Days: No Patient Interested in Nicotine Replacement: No Patient Given Instructions on How to Stop Smoking: No Second Hand Smoke Exposure: No Substance Use Type: Former Substance User, Prescription Drugs and Caffiene Substance Use Type Other:: former marijuana Currently Displaying Signs/Symptoms of Drug Intoxication Withdrawal: No Any prior treatment program specific to substance use: No Have you been hit, kicked, punched, or otherwise hurt by someone within the past year? If so, by whom?: No Do you feel safe in your current relationship?: No Is there a partner from a previous relationship who is making you feel unsafe now?: No Are you made to feel afraid or neglected: No Advance Directives: No Advance Directives Information Provided: No Advance Directives on File: No Healthcare Proxy: Yes (Sister Megha [phone]) Guardian: No Do you have thoughts of harming others: None Do you have a plan to hurt others: No Plan Recently lost weight without trying: No Nutrition Risks: No Nutritional Risk Poor oral hygiene: No service: No Current occupational status: disabled Sexual orientation: Did not discuss. Meds Allergies Allergy/AdvReac Type Severity Reaction Status Date / Time aripiprazole [From Abilify] Allergy Severe Rash Verified 09/22/21 02:28 peas Allergy Severe HIVES Verified 09/22/21 02:25 bee pollen [bee stings] AdvReac Severe Anaphylaxis Verified 09/22/21 02:29 lipitor Allergy Severe hives, Uncoded 09/22/21 02:26 rash, difficulty breathing Active Medications: Current Medications Acetaminophen (Acetaminophen 325 Mg Tablet) 650 mg PO Q6H PRN PRN Reason: Headache/Pain Mild Scale (1-3) Al Hydroxide/Mg Hydroxide (Magnesium Hydrox/Alum Hydrox 30 Ml Oral.Susp) 30 ml PO Q6H PRN PRN Reason: Heartburn/Nausea Albuterol Sulfate (Albuterol Sulfate 90 Mcg 8 Gm Inhaler) 2 puff INHALE RQ4H PRN PRN Reason: Shortness of Breath Aspirin (Aspirin Enteric Coated 81 Mg Tablet.) 81 mg PO DAILY [facility] Last Admin: 09/22/21 09:04 Dose: 81 mg Gabapentin (Gabapentin 300 Mg Capsule) 300 mg PO BID [facility] Last Admin: 09/22/21 15:08 Dose: 300 mg Hydroxyzine HCl (Hydroxyzine Hcl 25 Mg Tablet) 25 mg PO BEDTIME PRN PRN Reason: Anxiety Last Admin: 09/22/21 02:24 Dose: 25 mg Isosorbide Mononitrate (Isosorbide Mononitrate 30 Mg Tab.Er.24h) 30 mg PO DAILY [facility]; Protocol Last Admin: 09/22/21 09:04 Dose: 30 mg Levothyroxine Sodium (Levothyroxine Sodium 75 Mcg Tablet) 75 mcg PO DAILY@0630 [facility] Last Admin: 09/22/21 09:04 Dose: 75 mcg Lisinopril (Lisinopril 2.5 Mg Tablet) 2.5 mg PO DAILY [facility]; Protocol Last Admin: 09/22/21 09:04 Dose: 2.5 mg Magnesium Hydroxide (Milk Of Magnesia 30 Ml Oral.Susp) 30 ml PO DAILY PRN PRN Reason: Constipation Melatonin (Melatonin 3 Mg Tablet) 6 mg PO BEDTIME [facility] Metoprolol Succinate (Metoprolol Succinate Er 100 Mg Tab.Er.24h) 100 mg PO DAILY [facility]; Protocol Last Admin: 09/22/21 15:29 Dose: 100 mg Naproxen (Naproxen 500 Mg Tablet) 500 mg PO BID PRN PRN Reason: Pain, Moderate (Pain Scale 4-6 Last Admin: 09/22/21 02:24 Dose: 500 mg Nitroglycerin (Nitroglycerin 0.4 Mg Tab.Subl) 0.4 mg SUBLINGUAL Q5MX3 PRN PRN Reason: chest pain Olanzapine (Olanzapine 2.5 Mg Tablet) 2.5 mg PO DAILY [facility] Last Admin: 09/22/21 15:08 Dose: 2.5 mg Paroxetine HCl (Paroxetine Hcl 10 Mg Tablet) 10 mg PO DAILY [facility] Last Admin: 09/22/21 09:04 Dose: 10 mg Trazodone HCl (Trazodone Hcl 50 Mg Tablet) 50 mg PO BEDTIME PRN PRN Reason: Insomnia Last Admin: 09/22/21 02:24 Dose: 50 mg Trazodone HCl (Trazodone Hcl 100 Mg Tablet) 100 mg PO BEDTIME [facility] Physical Exam Vital Signs and Narrative: Vital Signs: Last Vital Signs Temp 97.6 F 09/22/21 10:50 Pulse 88 09/22/21 10:50 Resp 18 09/22/21 10:16 BP 120/56 L 09/22/21 10:50 Pulse Ox 95 09/22/21 10:50 O2 Del Method 09/22/21 10:50 BMI result Body Mass Index 36.5 Gen: c/o chest pain, anxious HEENT: sclera anicteric, moist mucus membranes Neck: supple Lungs: clear to auscultation bilaterally Heart: regular rate and rhythm, no murmurs Abd: soft, non-tender, non-distended, obese Ext: no edema Skin: warm/well-perfused Neuro: alert and oriented x3, no focal findings Psych: appropriate affect Results Labs CBC and Chem 7: 09/21/21 10:37 09/22/21 08:39 Labs: Laboratory Results - last 24 hr 09/22/21 09/22/21 09/22/21 08:39 10:17 10:39 Anion Gap 12 Estim Creat Clear Calc 79.8 Estimated GFR > 60 POC Glucose 221 H Fasting Glucose 230 H D Calcium 8.5 Total Bilirubin 0.8 AST 11 ALT 15 Alkaline Phosphatase 85 Troponin I High Sens < 3.5 B-Natriuretic Peptide Total Protein 6.3 L Albumin 3.8 Triglycerides 109 Cholesterol 182 LDL Cholesterol, Calc 122 HDL Cholesterol 39 09/22/21 09/22/21 09/22/21 10:39 12:49 14:15 Anion Gap Estim Creat Clear Calc Estimated GFR POC Glucose 184 H Fasting Glucose Calcium Total Bilirubin AST ALT Alkaline Phosphatase Troponin I High Sens 4.8 B-Natriuretic Peptide 87 Total Protein Albumin Triglycerides Cholesterol LDL Cholesterol, Calc HDL Cholesterol Imaging Radiologist's Impressions: Impressions Chest X-Ray 09/22/21 11:40 IMPRESSION: No acute abnormality. Assessment and Plan (1) Chest pain: Status: Acute Plan 61yo M with hx Tetralogy of Fallot s/p surgical repair in 1969, trifascicular block s/p AICD 2008 with generator change in 2017, pAF, obesity, HTN, HLD, asthma, PONCE on BiPAP, GERD, DM2, hypothyroidism, possible seizure disorder, bipolar disorder, somatoform disorder, polysubstance abuse, and cognitive delay admitted to inpatient psychiatry with SI. Rapid response for severe chest pain. Six admissions for ACS rule-out at [facility] over last year, all negative. Followed by [facility] and scheduled for stress test. # chest pain - Tn-I normal. no ischemic changes on EKG; has sinus rhythm with 1st deg AVB and RBBB, QTc 505 ms. - hs-Tn-I x3 normal, not cardiac chest pain per Cardiology. - continue ASA. pt has severe allergy to atorvastatin. continue metoprolol # RBBB - per Cardiology, follow JT prolongation index rather than QTc given wide QRS. JT prolongation index in him is normal (<112). continue olanzapine, prn hydroxyzine + trazodone, monitor EKG to measure JT prolongation index with any QT-prolonging medication additions/dose changese # HTN - continue metoprolol + Imdur + lisinopril # pAF - not on AC. continue metoprolol # PONCE - BiPAP 17/12 at night # asthma - prn albuterol UPD # thrombocytopenia - chronic- ?related to EtOH abuse # hypothyroidism - continue LT4 Thank you for this consultation. We are signing off the case at this time. Please communicate with us if any new medical questions arise.
--- NOTE | 2021-09-22 16:34 | PC.NURSE ---
Rapid response called on patient for c/o #10 CP. Occupational therapist called for nursing help after patient stated I need some help, I have chest pain I need some help . Patient reported to be walking down [place], using wall for support, slumped down to floor requesting help. Reports 10/10 CP with radiation to right arm and leg. C/O nausea, no diaphoresis. BP 209/98, HR95, RR24, 98% RA. POC 221. ASA administered per MD order, EKG obtained. Nitro 0.4mg administered VS 141/92, HR 99. Repeat Nitro administered. VS stabilized 94/56, HR 85, 96% RA, 97.6 Right side, 120/56, 88HR L side. Patient reports feeling better.
[2021-09-22 17:55] LABS: Glucose, Whole Blood 225 mg/dL (60-115)
[2021-09-22 18:14] LABS: Troponin-I High Sensitivity 5.9 ng/L (<3.5-35.0)
[2021-09-22] MEDS: traZODone HCL 100 MG TABLET PO (22:57)
[2021-09-22] MEDS: Melatonin 3 MG TABLET 6 MG PO (22:57)
[2021-09-22 23:15] LABS: Glucose, Whole Blood 223 mg/dL (60-115)
[2021-09-23] MEDS: Levothyroxine Sodium 75 MCG TABLET PO (06:49)
[2021-09-23 09:20] VITALS: BP 152/98; PULSE 93; RESP 17; TEMP 36.6; O2SAT 95
[2021-09-23] MEDS: Aspirin Enteric Coated 81 MG TABLET.DR PO (09:30)
[2021-09-23] MEDS: PARoxetine HCL 10 MG TABLET PO (09:30)
[2021-09-23] MEDS: lisinopriL 2.5 MG TABLET PO (09:31)
[2021-09-23] MEDS: Isosorbide Mononitrate 30 MG TAB.ER.24H PO (09:32)
[2021-09-23] MEDS: Gabapentin 300 MG CAPSULE PO ×2 (09:32→21:09)
[2021-09-23] MEDS: OLANZapine 2.5 MG TABLET PO (09:32)
[2021-09-23] MEDS: Metoprolol Succinate ER 100 MG TAB.ER.24H PO (09:32)
[2021-09-23 09:38] LABS: Glucose, Whole Blood 133 mg/dL (60-115)
--- NOTE | 2021-09-23 09:59 | P.CONCA_ITS ---
History of Present Illness History of Present Illness Date of Service: 09/23/21 Requesting physician: Hema Zeng Consult reason: other (Abnormal EKG) Chief complaint: Depression, SI Narrative: I was requested to see Joaquín in cardiology consultation today for noted QT prolongation on the EKG in the setting of wide QRS complex with right bundle- branch block. Joaquín S complex prior medical history follows with Dr. Nix at [facility]. He has a defibrillator, prior tetralogy of Fallot repair, last echocardiogram from last October at [facility] showed mild LV systolic dysfunction as well as dilated RV. He also has moderately dilated aortic root at 5 cm. Reported as having mild pulmonary regurgitation. Patient has multiple hospitalization due to chest pain syndrome which has been labile as noncardiac. Patient is very frustrated with this chest pain syndrome and as a result had suicidal ideation. He was therefore admitted to Behavioral Unit here for suicidal ideation. Plan to start him on psychiatric medication there was concern about QT prolongation and cardiology consult was sought. Patient currently continues to have these intermittent chest pain syndromes of unclear etiology but appears to be clearly not ischemic. Workup in the past has been negative. He denies any palpitations. He said last Monday he had a shock from his device and was checked and he was told that there was no clear device discharge and this appears to be more of for phantom shock, question psychological. Review of Systems Constitutional: Constitutional: Reports no additional constitutional complaints Eyes: Eyes: Reports no additional eye complaints Cardiovascular: Cardiovascular: Reports chest pain, Denies lightheadedness, Denies Loss of Consciousness, Denies palpitations and Denies dyspnea Respiratory: Respiratory: Reports no additional respiratory complaints and Denies dyspnea Gastrointestinal: Gastrointestinal: Reports no additional gastrointestinal complaints Genitourinary: Genitourinary: Reports no additional male genitourinary complaints Musculoskeletal: Musculoskeletal: Reports no additional musculoskeletal complaints Integumentary/Breasts: Skin/Breast: Reports system reviewed and no additional complaints, except as docu Neurologic: Reports system reviewed and no additional complaints, except as documented Psychiatric: Psychiatric: Reports suicidal ideation Endocrine: Endocrine: Denies palpitations Hematologic/Lymphatic: Hematologic/Lymphatic: Reports no additional hematologic/lymphatic complaints [facility] Past Medical History Medical History Anxiety Artificial cardiac pacemaker Asthma Cardiac defibrillator in place COPD (chronic obstructive pulmonary disease) Depression Developmental delay, mild Diabetes GERD (gastroesophageal reflux disease) History of ETOH abuse Hyperlipidemia Hypertension Hyperthyroidism RBBB Seizure Sleep apnea Surgical History Surgical History History of cardiac cath Social History Social History Household Members: Other Housing: Other Housing Other:: Sober House Do you presently have visiting nurse or other home services: No Alcohol intake: former Patient Tobacco Use Status: Former Tobacco user Quit Date: 30 years Tobacco use type: Cigarette Smoked in Last 30 Days: No Patient Interested in Nicotine Replacement: No Patient Given Instructions on How to Stop Smoking: No Second Hand Smoke Exposure: No Substance Use Type: Former Substance User, Prescription Drugs and Caffiene Substance Use Type Other:: former marijuana Currently Displaying Signs/Symptoms of Drug Intoxication Withdrawal: No Any prior treatment program specific to substance use: No Have you been hit, kicked, punched, or otherwise hurt by someone within the past year? If so, by whom?: No Do you feel safe in your current relationship?: No Is there a partner from a previous relationship who is making you feel unsafe now?: No Are you made to feel afraid or neglected: No Advance Directives: No Advance Directives Information Provided: No Advance Directives on File: No Healthcare Proxy: Yes (Sister Megha [phone]) Guardian: No Do you have thoughts of harming others: None Do you have a plan to hurt others: No Plan Recently lost weight without trying: No Nutrition Risks: No Nutritional Risk Poor oral hygiene: No service: No Current occupational status: disabled Sexual orientation: Did not discuss. Meds Allergies Allergy/AdvReac Type Severity Reaction Status Date / Time aripiprazole [From Abilify] Allergy Severe Rash Verified 09/22/21 02:28 peas Allergy Severe HIVES Verified 09/22/21 02:25 bee pollen [bee stings] AdvReac Severe Anaphylaxis Verified 09/22/21 02:29 lipitor Allergy Severe hives, Uncoded 09/22/21 02:26 rash, difficulty breathing Active Medications: Current Medications Acetaminophen (Acetaminophen 325 Mg Tablet) 650 mg PO Q6H PRN PRN Reason: Headache/Pain Mild Scale (1-3) Al Hydroxide/Mg Hydroxide (Magnesium Hydrox/Alum Hydrox 30 Ml Oral.Susp) 30 ml PO Q6H PRN PRN Reason: Heartburn/Nausea Albuterol Sulfate (Albuterol Sulfate 90 Mcg 8 Gm Inhaler) 2 puff INHALE RQ4H PRN PRN Reason: Shortness of Breath Albuterol Sulfate (Albuterol Sulfate (0.083%) 2.5 Mg/3 Ml Vial.Neb) 2.5 mg INHALE Q2H PRN PRN Reason: Shortness of Breath/Wheezing Aspirin (Aspirin Enteric Coated 81 Mg Tablet.Dr) 81 mg PO DAILY [facility] Last Admin: 09/23/21 09:30 Dose: 81 mg Gabapentin (Gabapentin 300 Mg Capsule) 300 mg PO BID [facility] Last Admin: 09/23/21 09:32 Dose: 300 mg Hydroxyzine HCl (Hydroxyzine Hcl 25 Mg Tablet) 25 mg PO BEDTIME PRN PRN Reason: Anxiety Last Admin: 09/22/21 02:24 Dose: 25 mg Isosorbide Mononitrate (Isosorbide Mononitrate 30 Mg Tab.Er.24h) 30 mg PO DAILY [facility]; Protocol Last Admin: 09/23/21 09:32 Dose: 30 mg Levothyroxine Sodium (Levothyroxine Sodium 75 Mcg Tablet) 75 mcg PO DAILY@0630 [facility] Last Admin: 09/23/21 06:49 Dose: 75 mcg Lisinopril (Lisinopril 2.5 Mg Tablet) 2.5 mg PO DAILY [facility]; Protocol Last Admin: 09/23/21 09:31 Dose: 2.5 mg Magnesium Hydroxide (Milk Of Magnesia 30 Ml Oral.Susp) 30 ml PO DAILY PRN PRN Reason: Constipation Melatonin (Melatonin 3 Mg Tablet) 6 mg PO BEDTIME [facility] Last Admin: 09/22/21 22:57 Dose: 6 mg Metoprolol Succinate (Metoprolol Succinate Er 100 Mg Tab.Er.24h) 100 mg PO DAILY [facility]; Protocol Last Admin: 09/23/21 09:32 Dose: 100 mg Naproxen (Naproxen 500 Mg Tablet) 500 mg PO BID PRN PRN Reason: Pain, Moderate (Pain Scale 4-6 Last Admin: 09/22/21 02:24 Dose: 500 mg Nitroglycerin (Nitroglycerin 0.4 Mg Tab.Subl) 0.4 mg SUBLINGUAL Q5MX3 PRN PRN Reason: chest pain Olanzapine (Olanzapine 2.5 Mg Tablet) 2.5 mg PO DAILY [facility] Last Admin: 09/23/21 09:32 Dose: 2.5 mg Paroxetine HCl (Paroxetine Hcl 10 Mg Tablet) 10 mg PO DAILY [facility] Last Admin: 09/23/21 09:30 Dose: 10 mg Trazodone HCl (Trazodone Hcl 50 Mg Tablet) 50 mg PO BEDTIME PRN PRN Reason: Insomnia Last Admin: 09/22/21 02:24 Dose: 50 mg Trazodone HCl (Trazodone Hcl 100 Mg Tablet) 100 mg PO BEDTIME [facility] Last Admin: 09/22/21 22:57 Dose: 100 mg Physical Exam Vital Signs: Vital Signs: Last Vital Signs Temp 97.9 F 09/23/21 09:20 Pulse 93 09/23/21 09:20 Resp 17 09/23/21 09:20 BP 152/98 H 09/23/21 09:20 Pulse Ox 95 09/23/21 09:20 O2 Del Method 09/23/21 09:20 BMI result Body Mass Index 36.5 Const: General: cooperative, comfortable, no acute distress, alert and awake Nutritional Appearance: obese Orientation/consciousness: patient oriented x3 HEENT: Head: Yes normocephalic and Yes atraumatic Neck: Neck: Yes trachea midline, Yes supple and Yes no JVD Resp: Effort & Inspection: normal respiratory effort Auscultation: clear to auscultation bilaterally Cardio: Jugular venous distension: no JVD Palpation: normal PMI Rate: regular rate Rhythm: regular rhythm Heart sounds: S1 normal heart sound present, S2 normal heart sound present, no click, no gallops and no murmurs GI: Inspection: Yes obesity Auscultation: normal bowel sounds Skin: General skin exam: no rashes or lesions noted Neuro: General: patient oriented x3 and no focal motor deficits Extrem: General: Yes no clubbing, cyanosis or edema Psych: Thought content: Suicidality present Objective Labs and Meds Result diagrams: 09/21/21 10:37 09/22/21 08:39 Lab results: Laboratory Results - last 24 hr 09/22/21 09/22/21 09/22/21 10:17 10:39 10:39 POC Glucose 221 H Magnesium Troponin I High Sens < 3.5 B-Natriuretic Peptide 87 09/22/21 09/22/21 09/22/21 12:49 14:15 17:42 POC Glucose 184 H Magnesium Troponin I High Sens 4.8 5.9 B-Natriuretic Peptide 09/22/21 09/22/21 09/22/21 17:42 17:50 23:00 POC Glucose 225 H 223 H Magnesium 2.0 Troponin I High Sens B-Natriuretic Peptide 09/23/21 09:29 POC Glucose 133 H Magnesium Troponin I High Sens B-Natriuretic Peptide Imaging Radiologist's impression: Impressions Chest X-Ray 09/22/21 11:40 IMPRESSION: No acute abnormality. Assessment and Plan (1) Abnormal EKG: Status: Acute Patient with right bundle-branch block with very prolonged QRS which is known and associated prognostic implication patient with tetralogy of Fallot repair in the past. But this appears to be not a new finding with right bundle-branch block. He is closely followed by Cardiology at [facility]. He has recurrent chest pain syndrome which appears to be noncardiac in nature. His QT see interval was noted to be prolonged however that is a poor indicator of repolarization in patients with very prolonged QRS complex. A better marker of repolarization inpatient prolonged QRS is JT prolongation index. Calculated JT prolongation index in him on the last EKG was 97.7 milliseconds which is within normal limits. Anything below 112 milliseconds is reasonable. I think he can be started on psychoactive medication and every time there is initiation or dose escalation should be followed by EKG to measure JT prolongation index, which is calculated as JT(100+hr)/518. (JT= QT-QRS). Will sign of the case at this point time. Thank you for allowing us to partake in his care Procedures Date of Service Date of Service: 09/23/21
[2021-09-23] MEDS: Albuterol Sulfate 90 MCG 8 GM INHALER 2 PUFF INHALE ×2 (10:03→22:12)
[2021-09-23 12:58] LABS: Glucose, Whole Blood 200 mg/dL (60-115)
--- NOTE | 2021-09-23 14:56 | P.PNPSI_ITS ---
Subjective Subjective Date of Service: 09/23/21 Reason For Visit: Depression, SI Interim History: pt found resting in his bed. easily rousable, comes to interview room for discussion. states his CP is gone, and he was seen by the flight engineer inspector this morning. states cards told him not to worry about the QTc. MD reviews cardiology note with pt, which supports his statement. c/o feeling agitated (frustrated) that he continues to have this relapsing remitting CP and nobody can tell him what it is. MD informs him cardiology believes it is not cardiac in etiology and suggests it may be psychogenic, which he considers. c/o depression being still high. MD recommends against changes to regimen currently and to continue and observe for improvement, to which pt agrees. per staff, dep 5 and anx 7 yesterday. no SI. no VH. interactive with peers. slept well. appetite good. moderate dep/anx. +SI, feels safe here. had BiPAP NOC. Mental Status Exam Mental Status Exam Narrative: disheveled. no PMA/PMR. cooperative. speech nml in rate, amount, loudness, tone, latency. thoughts linear and logical. affect constricted, hyper-intense, non-labile. mood depressed. endorses SI if he were to be outside the hospital. no HI/AVH expressed. Diagnostics Vital Signs (24Hr): Vital Signs - 24 hr 09/22/21 15:05 09/22/21 22:55 09/23/21 09:20 Temperature 98 F 97.9 F Pulse Rate 101 H 105 H 93 Respiratory Rate 20 18 17 Blood Pressure 127/75 145/85 H 152/98 H Pulse Oximetry 96 94 95 Oxygen Delivery Method Room Air Room Air Room Air BMI result Body Mass Index 36.5 Labs Results: 09/21/21 10:37 09/22/21 08:39 Labs: Laboratory Results - last 48 hr 09/22/21 09/22/21 09/22/21 08:39 10:17 10:39 Sodium 140 Potassium 4.9 Chloride 106 Carbon Dioxide 27 Anion Gap 12 BUN 20 H Creatinine 1.23 Estim Creat Clear Calc 79.8 Estimated GFR > 60 POC Glucose 221 H Fasting Glucose 230 H D Calcium 8.5 Magnesium Total Bilirubin 0.8 AST 11 ALT 15 Alkaline Phosphatase 85 Troponin I High Sens < 3.5 B-Natriuretic Peptide Total Protein 6.3 L Albumin 3.8 Triglycerides 109 Cholesterol 182 LDL Cholesterol, Calc 122 HDL Cholesterol 39 09/22/21 09/22/21 09/22/21 10:39 12:49 14:15 Sodium Potassium Chloride Carbon Dioxide Anion Gap BUN Creatinine Estim Creat Clear Calc Estimated GFR POC Glucose 184 H Fasting Glucose Calcium Magnesium Total Bilirubin AST ALT Alkaline Phosphatase Troponin I High Sens 4.8 B-Natriuretic Peptide 87 Total Protein Albumin Triglycerides Cholesterol LDL Cholesterol, Calc HDL Cholesterol 09/22/21 09/22/21 09/22/21 17:42 17:42 17:50 Sodium Potassium Chloride Carbon Dioxide Anion Gap BUN Creatinine Estim Creat Clear Calc Estimated GFR POC Glucose 225 H Fasting Glucose Calcium Magnesium 2.0 Total Bilirubin AST ALT Alkaline Phosphatase Troponin I High Sens 5.9 B-Natriuretic Peptide Total Protein Albumin Triglycerides Cholesterol LDL Cholesterol, Calc HDL Cholesterol 09/22/21 09/23/21 09/23/21 23:00 09:29 12:53 Sodium Potassium Chloride Carbon Dioxide Anion Gap BUN Creatinine Estim Creat Clear Calc Estimated GFR POC Glucose 223 H 133 H 200 H Fasting Glucose Calcium Magnesium Total Bilirubin AST ALT Alkaline Phosphatase Troponin I High Sens B-Natriuretic Peptide Total Protein Albumin Triglycerides Cholesterol LDL Cholesterol, Calc HDL Cholesterol Imaging Radiology Impressions: ITS Impressions Chest X-Ray 09/21/21 10:15 IMPRESSION: No acute cardiopulmonary process. Abdomen/Pelvis CT 09/21/21 10:26 IMPRESSION: * No acute imaging abnormalities in the abdomen or pelvis compared to 10/29/2016. * No evidence of renal calculi or hydroureteronephrosis. * Mild diverticulosis of the distal descending and sigmoid colon without diverticulitis. * Urinary bladder wall is chronically thickened. 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 * Chronic, mild mesenteric panniculitis. Chest X-Ray 09/22/21 11:40 IMPRESSION: No acute abnormality. Medications Medications Current Medications Acetaminophen (Acetaminophen 325 Mg Tablet) 650 mg PO Q6H PRN PRN Reason: Headache/Pain Mild Scale (1-3) Al Hydroxide/Mg Hydroxide (Magnesium Hydrox/Alum Hydrox 30 Ml Oral.Susp) 30 ml PO Q6H PRN PRN Reason: Heartburn/Nausea Albuterol Sulfate (Albuterol Sulfate 90 Mcg 8 Gm Inhaler) 2 puff INHALE RQ4H PRN PRN Reason: Shortness of Breath Last Admin: 09/23/21 10:03 Dose: 2 puff Albuterol Sulfate (Albuterol Sulfate (0.083%) 2.5 Mg/3 Ml Vial.Neb) 2.5 mg INHALE Q2H PRN PRN Reason: Shortness of Breath/Wheezing Aspirin (Aspirin Enteric Coated 81 Mg Tablet.Dr) 81 mg PO DAILY [facility] Last Admin: 09/23/21 09:30 Dose: 81 mg Gabapentin (Gabapentin 300 Mg Capsule) 300 mg PO BID [facility] Last Admin: 09/23/21 09:32 Dose: 300 mg Hydroxyzine HCl (Hydroxyzine Hcl 25 Mg Tablet) 25 mg PO BEDTIME PRN PRN Reason: Anxiety Last Admin: 09/22/21 02:24 Dose: 25 mg Isosorbide Mononitrate (Isosorbide Mononitrate 30 Mg Tab.Er.24h) 30 mg PO DAILY [facility]; Protocol Last Admin: 09/23/21 09:32 Dose: 30 mg Levothyroxine Sodium (Levothyroxine Sodium 75 Mcg Tablet) 75 mcg PO DAILY@0630 [facility] Last Admin: 09/23/21 06:49 Dose: 75 mcg Lisinopril (Lisinopril 2.5 Mg Tablet) 2.5 mg PO DAILY [facility]; Protocol Last Admin: 09/23/21 09:31 Dose: 2.5 mg Magnesium Hydroxide (Milk Of Magnesia 30 Ml Oral.Susp) 30 ml PO DAILY PRN PRN Reason: Constipation Melatonin (Melatonin 3 Mg Tablet) 6 mg PO BEDTIME [facility] Last Admin: 09/22/21 22:57 Dose: 6 mg Metoprolol Succinate (Metoprolol Succinate Er 100 Mg Tab.Er.24h) 100 mg PO DAILY [facility]; Protocol Last Admin: 09/23/21 09:32 Dose: 100 mg Naproxen (Naproxen 500 Mg Tablet) 500 mg PO BID PRN PRN Reason: Pain, Moderate (Pain Scale 4-6 Last Admin: 09/22/21 02:24 Dose: 500 mg Nitroglycerin (Nitroglycerin 0.4 Mg Tab.Subl) 0.4 mg SUBLINGUAL Q5MX3 PRN PRN Reason: chest pain Olanzapine (Olanzapine 2.5 Mg Tablet) 2.5 mg PO DAILY [facility] Last Admin: 09/23/21 09:32 Dose: 2.5 mg Paroxetine HCl (Paroxetine Hcl 10 Mg Tablet) 10 mg PO DAILY [facility] Last Admin: 09/23/21 09:30 Dose: 10 mg Trazodone HCl (Trazodone Hcl 50 Mg Tablet) 50 mg PO BEDTIME PRN PRN Reason: Insomnia Last Admin: 09/22/21 02:24 Dose: 50 mg Trazodone HCl (Trazodone Hcl 100 Mg Tablet) 100 mg PO BEDTIME [facility] Last Admin: 09/22/21 22:57 Dose: 100 mg Allergies Allergies Allergy/AdvReac Type Severity Reaction Status Date / Time aripiprazole [From Abilify] Allergy Severe Rash Verified 09/22/21 02:28 peas Allergy Severe HIVES Verified 09/22/21 02:25 bee pollen [bee stings] AdvReac Severe Anaphylaxis Verified 09/22/21 02:29 lipitor Allergy Severe hives, Uncoded 09/22/21 02:26 rash, difficulty breathing Assessment & Plan Assessment & Plan (1) Anxiety: Code(s): F41.9 - Anxiety disorder, unspecified (2) Chest pain: Status: Acute Code(s): R07.9 - Chest pain, unspecified Assessment and Plan: 61yo M with hx Tetralogy of Fallot s/p surgical repair in 1969, trifascicular block s/p AICD 2008 with generator change in 2016, pAF, obesity, HTN, HLD, asthma, PONCE on BiPAP, GERD, DM2, hypothyroidism, possible seizure disorder, bipolar disorder, somatoform disorder, polysubstance abuse, and cognitive delay admitted to inpatient psychiatry with SI. Rapid response for severe chest pain. Six admissions for ACS rule-out at [facility] over last year, all negative. Followed by [facility] Cardiology and scheduled for stress test. # chest pain - Tn-I normal. no ischemic changes on EKG; has sinus rhythm with 1st deg AVB and RBBB, QTc 505 ms. - hs-Tn-I x3 normal, not cardiac chest pain per Cardiology. - continue ASA. pt has severe allergy to atorvastatin. continue metoprolol # RBBB - per Cardiology, follow JT prolongation index rather than QTc given wide QRS. JT prolongation index in him is normal (<112). continue olanzapine, prn hydroxyzine + trazodone, monitor EKG to measure JT prolongation index with any QT-prolonging medication additions/dose changese # HTN - continue metoprolol + Imdur + lisinopril # pAF - not on AC. continue metoprolol # PONCE - BiPAP 19/03 at night # asthma - prn albuterol UPD # thrombocytopenia - chronic- ?related to EtOH abuse # hypothyroidism - continue LT4 Thank you for this consultation. We are signing off the case at this time. Please communicate with us if any new medical questions arise. Plan psych presentation unchanged. continue current medications. planning for discharge monday. I spent __35____ minutes with the patient and/or on the patient floor today, greater than?50% of which was spent counseling/coordinating care. Reason for contiued inpatient stay Substantial Risk for: harm to self, inability to function and med/psych decompensation
[2021-09-23 18:31] LABS: Glucose, Whole Blood 190 mg/dL (60-115)
[2021-09-23 20:13] VITALS: BP 135/60; PULSE 94; RESP 24; TEMP 36.8; O2SAT 96
[2021-09-23] MEDS: traZODone HCL 100 MG TABLET PO (21:09)
[2021-09-23] MEDS: Melatonin 3 MG TABLET 6 MG PO (21:09)
[2021-09-24] VITALS (7 sets, daily range): BP systolic 108–133; BP diastolic 65–80; PULSE 81–101; RESP 18–36; TEMP 36.4–36.8; O2SAT 94–96
--- NOTE | 2021-09-24 | ECG_ITS ---
Test Reason : chest pain Blood Pressure : / mmHG Vent. Rate : 090 BPM Atrial Rate : 090 BPM P-R Int : 208 ms QRS Dur : 178 ms QT Int : 412 ms P-R-T Axes : 065 110 046 degrees QTc Int : 504 ms Sinus rhythm with occasional Premature ventricular complexes and Premature atrial complexes Right bundle branch block Left posterior fascicular block Bifascicular block Abnormal ECG When compared with ECG of 22-SEP-2021 10:20, Premature atrial complexes are now Present Referred By: Refugio Sagastume Electronically Signed By:PATO ROMAN MD
[2021-09-24] MEDS: Albuterol Sulfate (0.083%) 2.5 MG/3 ML VIAL.NEB INHALE (00:07)
[2021-09-24] MEDS: Levothyroxine Sodium 75 MCG TABLET PO (06:16)
[2021-09-24] MEDS: Isosorbide Mononitrate 30 MG TAB.ER.24H PO (08:59)
[2021-09-24] MEDS: lisinopriL 2.5 MG TABLET PO (09:00)
[2021-09-24] MEDS: Metoprolol Succinate ER 100 MG TAB.ER.24H PO (09:00)
[2021-09-24] MEDS: PARoxetine HCL 10 MG TABLET PO (09:00)
[2021-09-24] MEDS: Aspirin Enteric Coated 81 MG TABLET.DR PO (09:00)
[2021-09-24] MEDS: OLANZapine 2.5 MG TABLET PO (09:01)
[2021-09-24] MEDS: Gabapentin 300 MG CAPSULE PO ×2 (09:01→21:09)
[2021-09-24 09:08] LABS: Glucose, Whole Blood 160 mg/dL (60-115)
[2021-09-24] MEDS: metFORMIN HCl 500 MG TABLET PO ×2 (13:09→18:04)
--- NOTE | 2021-09-24 14:21 | HO.PSYCHPN ---
Subjective Subjective Date of Service: 09/24/21 Reason For Visit: Depression, SI Interim History: calm, cooperative. states he is feeling more down today, c/o SI. encouraged pt to persevere on current psych regimen. pt c/o too many POC sticks. glucose reviewed, btwn 100 and 200. MD agrees to decrease POC to once daily and suggests starting metformin, with which pt agrees. per staff, anx 7, dep 5. sleeping OK. eating well. groggy in the morning. feels safe in the hospital but emphasizes that if he were in the community, that would not be the case. Mental Status Exam Mental Status Exam Narrative: disheveled. no PMA/PMR. cooperative. speech nml in rate, amount. incr loudness. nml tone, decr latency. thoughts linear and logical. affect constricted, hyper-intense, non-labile. mood depressed. endorses SI if he were to be outside the hospital. no HI/AVH expressed. Diagnostics Vital Signs (24Hr): Vital Signs - 24 hr 09/23/21 20:13 09/24/21 00:11 09/24/21 08:57 Temperature 98.2 F 98.2 F Pulse Rate 94 101 H 91 Respiratory Rate 24 H 18 Blood Pressure 135/60 108/68 Pulse Oximetry 96 95 Oxygen Delivery Method Room Air Room Air BMI result Body Mass Index 36.5 Labs Results: 09/21/21 10:37 09/22/21 08:39 Labs: Laboratory Results - last 48 hr 09/22/21 09/22/21 09/22/21 14:15 17:42 17:42 POC Glucose Magnesium 2.0 Troponin I High Sens 4.8 5.9 09/22/21 09/22/21 09/23/21 17:50 23:00 09:29 POC Glucose 225 H 223 H 133 H Magnesium Troponin I High Sens 09/23/21 09/23/21 09/24/21 12:53 18:27 09:05 POC Glucose 200 H 190 H 160 H Magnesium Troponin I High Sens Imaging Radiology Impressions: ITS Impressions Chest X-Ray 09/21/21 10:15 IMPRESSION: No acute cardiopulmonary process. Abdomen/Pelvis CT 09/21/21 10:26 IMPRESSION: * No acute imaging abnormalities in the abdomen or pelvis compared to 10/29/2016. * No evidence of renal calculi or hydroureteronephrosis. * Mild diverticulosis of the distal descending and sigmoid colon without diverticulitis. * Urinary bladder wall is chronically thickened. 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 * Chronic, mild mesenteric panniculitis. Chest X-Ray 09/22/21 11:40 IMPRESSION: No acute abnormality. Medications Medications Current Medications Acetaminophen (Acetaminophen 325 Mg Tablet) 650 mg PO Q6H PRN PRN Reason: Headache/Pain Mild Scale (1-3) Al Hydroxide/Mg Hydroxide (Magnesium Hydrox/Alum Hydrox 30 Ml Oral.Susp) 30 ml PO Q6H PRN PRN Reason: Heartburn/Nausea Albuterol Sulfate (Albuterol Sulfate 90 Mcg 8 Gm Inhaler) 2 puff INHALE RQ4H PRN PRN Reason: Shortness of Breath Last Admin: 09/23/21 22:12 Dose: 2 puff Albuterol Sulfate (Albuterol Sulfate (0.083%) 2.5 Mg/3 Ml Vial.Neb) 2.5 mg INHALE Q2H PRN PRN Reason: Shortness of Breath/Wheezing Last Admin: 09/24/21 00:07 Dose: 2.5 mg Aspirin (Aspirin Enteric Coated 81 Mg Tablet.Dr) 81 mg PO DAILY [facility] Last Admin: 09/24/21 09:00 Dose: 81 mg Gabapentin (Gabapentin 300 Mg Capsule) 300 mg PO BID [facility]PL[facility] BY [facility] Last Admin: 09/24/21 09:01 Dose: 300 mg Hydroxyzine HCl (Hydroxyzine Hcl 25 Mg Tablet) 25 mg PO BEDTIME PRN PRN Reason: Anxiety Last Admin: 09/22/21 02:24 Dose: 25 mg Isosorbide Mononitrate (Isosorbide Mononitrate 30 Mg Tab.Er.24h) 30 mg PO DAILY [facility]; Protocol Last Admin: 09/24/21 08:59 Dose: 30 mg Levothyroxine Sodium (Levothyroxine Sodium 75 Mcg Tablet) 75 mcg PO DAILY@0630 [facility] Last Admin: 09/24/21 06:16 Dose: 75 mcg Lisinopril (Lisinopril 2.5 Mg Tablet) 2.5 mg PO DAILY [facility] BY [facility]; Protocol Last Admin: 09/24/21 09:00 Dose: 2.5 mg Magnesium Hydroxide (Milk Of Magnesia 30 Ml Oral.Susp) 30 ml PO DAILY PRN PRN Reason: Constipation Melatonin (Melatonin 3 Mg Tablet) 6 mg PO BEDTIME [facility] Last Admin: 09/23/21 21:09 Dose: 6 mg Metformin HCl (Metformin Hcl 500 Mg Tablet) 500 mg PO BIDWM REPLACED BY [facility] Last Admin: 09/24/21 13:09 Dose: 500 mg Metoprolol Succinate (Metoprolol Succinate Er 100 Mg Tab.Er.24h) 100 mg PO DAILY [facility] BY [facility]; Protocol Last Admin: 09/24/21 09:00 Dose: 100 mg Naproxen (Naproxen 500 Mg Tablet) 500 mg PO BID PRN PRN Reason: Pain, Moderate (Pain Scale 4-6 Last Admin: 09/22/21 02:24 Dose: 500 mg Nitroglycerin (Nitroglycerin 0.4 Mg Tab.Subl) 0.4 mg SUBLINGUAL Q5MX3 PRN PRN Reason: chest pain Olanzapine (Olanzapine 2.5 Mg Tablet) 2.5 mg PO DAILY REPLACED BY [facility] Last Admin: 09/24/21 09:01 Dose: 2.5 mg Paroxetine HCl (Paroxetine Hcl 10 Mg Tablet) 10 mg PO DAILY REPLACED BY [facility] Last Admin: 09/24/21 09:00 Dose: 10 mg Trazodone HCl (Trazodone Hcl 50 Mg Tablet) 50 mg PO BEDTIME PRN PRN Reason: Insomnia Last Admin: 09/22/21 02:24 Dose: 50 mg Trazodone HCl (Trazodone Hcl 100 Mg Tablet) 100 mg PO BEDTIME REPLACED BY [facility] Last Admin: 09/23/21 21:09 Dose: 100 mg Allergies Allergies Allergy/AdvReac Type Severity Reaction Status Date / Time aripiprazole [From Abiliy] Allergy Severe Rash Verified 09/22/21 02:28 peas Allergy Severe HIVES Verified 09/22/21 02:25 bee pollen [bee stings] AdvReac Severe Anaphylaxis Verified 09/22/21 02:29 lipitor Allergy Severe hives, Uncoded 09/22/21 02:26 rash, difficulty breathing Assessment & Plan Assessment & Plan (1) Suicidal ideation: Status: Acute Code(s): R45.851 - Suicidal ideations (2) Chest pain: Status: Acute Code(s): R07.9 - Chest pain, unspecified (3) Anxiety: Code(s): F41.9 - Anxiety disorder, unspecified (4) Depression: Code(s): F32.9 - Major depressive disorder, single episode, unspecified (5) Developmental delay, mild: Code(s): R62.50 - Unspecified lack of expected normal physiological development in childhood Plan ROMIed. continue to observe on psych unit. cardiology consult suggests neuroleptic dosing may be increased as clinically indicated. continue home medications regimen. respiratory consult for BiPAP; pt has device metformin 500 BID started 09/24 for DM. stabilize, discharge to outpt care. I spent ___35___ minutes with the patient and/or on the patient floor today, greater than?50% of which was spent counseling/coordinating care. Reason for contiued inpatient stay Substantial Risk for: harm to self, inability to function and rapid decompensation
[2021-09-24] MEDS: hydrOXYzine HCL 25 MG TABLET PO (18:04)
[2021-09-24] MEDS: Nitroglycerin 0.4 MG TAB.SUBL SUBLINGUAL ×2 (18:35→18:46)
--- NOTE | 2021-09-24 19:02 | PM.EVENT ---
Event Note Date of Service: 09/24/21 Event Note: Seen because chest pain that is similar to and claims of AICD going off, Stat ECG shows no ischemic changes, QTc is 504 similar to prvious.. Exam unremarkable, discussed with cardiology and will observe for now, I will request troponin I. Patient is known to have these episodes including recent hospitalization at [facility] where device was checked and found to be Ok.
--- NOTE | 2021-09-24 19:25 | PC.NURSE ---
~6pm Patient was sitting on his bed and reported My pacemaker just fired , when RN stepped into the room patient was slumped forward clutching his chest; reporting 6/10 chest pain, Respirations 36/min, BP 133/80, HR 88, POX 95%; Hospitalist and Psychiatric Provider Notified via [employer]. Nitro glycerin administered x2, Stat ECG obtained. Dr. Sagastume assessed patient at bedside and ECG results. Chest pain resolved and patient is currently ambulating on unit, drinking fluids.
[2021-09-24] MEDS: Melatonin 3 MG TABLET 6 MG PO (21:09)
[2021-09-24] MEDS: traZODone HCL 100 MG TABLET PO (21:09)
[2021-09-25] VITALS (11 sets, daily range): BP systolic 120–152; BP diastolic 57–87; PULSE 81–90; RESP 18–22; TEMP 36.4–36.8; O2SAT 93–96
--- NOTE | 2021-09-25 | ECG_ITS ---
Test Reason : cp Blood Pressure : / mmHG Vent. Rate : 084 BPM Atrial Rate : 084 BPM P-R Int : 214 ms QRS Dur : 184 ms QT Int : 420 ms P-R-T Axes : 109 071 131 degrees QTc Int : 496 ms Sinus rhythm with 1st degree A-V block Right bundle branch block Abnormal ECG When compared with ECG of 24-SEP-2021 18:46, Premature ventricular complexes are no longer Present Premature atrial complexes are no longer Present Referred By: Parish Griffin Electronically Signed By:PEEP CABALLERO
[2021-09-25] MEDS: Nitroglycerin 0.4 MG TAB.SUBL SUBLINGUAL ×3 (02:12→02:30)
[2021-09-25] MEDS: Prochlorperazine Maleate 5 MG TABLET 10 MG PO (02:47)
[2021-09-25] MEDS: oxyCODONE HCl Immed Release 5 MG TABLET PO (02:48)
[2021-09-25] MEDS: Melatonin 3 MG TABLET 6 MG PO ×2 (03:28→22:01)
--- NOTE | 2021-09-25 05:21 | PC.NURSE ---
At approx. 0210 pt woke stating that his pacemaker fired and c/o chest pain 9/10. Vitals 133/73, 85, 93% RA, 97.6, RR 22. Pt did not appear diaphoretic or short of breath. Nitro 0.4 mg administered x3 at 0212, 0219, 0230. Pt continued to c/o pain 9/10 and reported feeling nauseous. Hospitalist, Dr. Guerra, notified at 0223. Stat EKG ordered, oxycodone 5 mg po once and compazine 10 mg po once ordered and administered at 0248. EKG completed and results texted to Dr. Guerra. Vitals remained stable. At 0323 pt reported feeling slightly better, rated pain 5/10. No further orders/recommendations at this time. Pt appears to be resting comfortably, sleeping in naps. Nursing will continue to monitor.
[2021-09-25] MEDS: Levothyroxine Sodium 75 MCG TABLET PO (06:48)
[2021-09-25] MEDS: PARoxetine HCL 10 MG TABLET PO (08:33)
[2021-09-25] MEDS: Aspirin Enteric Coated 81 MG TABLET.DR PO (08:34)
[2021-09-25] MEDS: lisinopriL 2.5 MG TABLET PO (08:34)
[2021-09-25] MEDS: Metoprolol Succinate ER 100 MG TAB.ER.24H PO (08:34)
[2021-09-25] MEDS: Isosorbide Mononitrate 30 MG TAB.ER.24H PO (08:34)
[2021-09-25] MEDS: metFORMIN HCl 500 MG TABLET PO ×2 (08:35→17:50)
[2021-09-25] MEDS: Gabapentin 300 MG CAPSULE PO ×2 (08:35→22:01)
[2021-09-25] MEDS: OLANZapine 2.5 MG TABLET PO (08:46)
[2021-09-25 09:50] LABS: Glucose, Whole Blood 143 mg/dL (60-115)
--- NOTE | 2021-09-25 10:28 | P.PNPSI_ITS ---
Subjective Subjective Date of Service: 09/25/21 Reason For Visit: Depression, SI Subjective Notes: Conditional Voluntary Healthcare Proxy: Yes (Megha sister [phone] not invoked) Medical Problems Affecting Mental Status: Yes Interim History: pt has pacemaker; abnormal ekg.cardiology consutl reviewed and in chart; pain syndrome with possible psychological etiology; pt is somatically focused; he tells me last night he felt a jolt from pacemaker; felt reassured that cardiology consult done and no acute pathology. He then told me about pain in flank area; no changes in urine; no constipation; asked for percocet. encouraged pt to use tylenol, ibuprofen, increase fluids and can use warm packs if needed. UA 09/21 negative and no fever. Pt appeared to do well with reassurance. Medication Compliance: No Side effects from medications: No Attending Groups: No Review of Systems pacemaker and pt report associated pain- monitor and see cardiology recommendations below Medical Review of Systems: unchanged Review of Systems: no change Review of Systems Review of Systems no change Yes all other systems are reviewed and are negative Constitutional: Reports no additional constitutional complaints, Denies body ache(s), Denies chills, Denies fatigue, Denies fever(s), Denies headache(s), Denies malaise and Denies weakness Eyes: Reports no additional eye complaints and Denies diplopia Denies vertigo, Denies dizziness, Denies otalgia, Denies headache(s), Denies mouth pain, Denies post nasal drip, Denies sinus pain, Denies sinus pressure, Reports sore throat and Denies throat swelling Cardiovascular: Reports chest pain, Denies syncope, Denies leg edema, Denies lightheadedness, Denies Loss of Consciousness, Denies palpitations and Denies dyspnea Respiratory: Reports no additional respiratory complaints, Denies chest congestion, Reports cough and Denies dyspnea Gastrointestinal: Reports no additional gastrointestinal complaints, Denies abdominal pain, Denies hematochezia, Denies constipation, Denies diarrhea, Denies nausea and Denies vomiting Genitourinary: Reports no additional male genitourinary complaints, Reports dysuria and Reports flank pain Musculoskeletal: Reports no additional musculoskeletal complaints Comments: pt reports pain/discomfort on lft flank area. Skin/Breast: Reports system reviewed and no additional complaints, except as docu Reports system reviewed and no additional complaints, except as documented, Denies confusion, Denies vertigo, Denies dizziness, Denies syncope, Denies headache(s) and Denies weakness Psychiatric: Denies anxiety, Denies confusion, Reports depression, Denies visual hallucinations, Denies hallucinations, Denies homicidal ideation and Reports suicidal ideation Endocrine: Denies fatigue and Denies palpitations Hematologic/Lymphatic: Reports no additional hematologic/lymphatic complaints Allergic/Immunologic: Denies throat swelling Mental Status Exam Mental Status Exam Narrative: disheveled. cooperative. speech nml in rate, amount. incr loudness. nml tone, decr latency. thoughts linear and logical. theme of thoughts on somatic discomfort. affect constricted, hyper-intense, non-labile. mood depressed. endorses SI if he were to be outside the hospital. no HI/AVH expressed. Judgement: Fair Diagnostics Vital Signs (24Hr): Vital Signs - 24 hr 09/24/21 18:34 09/24/21 18:46 09/24/21 18:35 Temperature Pulse Rate 88 90 88 Respiratory Rate 36 H Blood Pressure 133/80 113/65 133/80 Pulse Oximetry 96 Oxygen Delivery Method Room Air 09/24/21 21:06 09/25/21 02:12 09/25/21 02:30 Temperature 97.6 F Pulse Rate 81 83 87 Respiratory Rate 18 Blood Pressure 131/73 133/73 120/86 Pulse Oximetry 96 Oxygen Delivery Method Room Air 09/25/21 02:10 09/25/21 02:20 09/25/21 02:38 Temperature 97.6 F Pulse Rate 85 87 87 Respiratory Rate 22 H 20 20 Blood Pressure 133/73 120/86 140/59 H Pulse Oximetry 93 95 95 Oxygen Delivery Method Room Air Room Air Room Air 09/25/21 02:46 09/25/21 03:25 09/25/21 02:47 Temperature Pulse Rate 86 81 86 Respiratory Rate 18 18 Blood Pressure 128/78 123/57 L 128/78 Pulse Oximetry 94 94 Oxygen Delivery Method Room Air Room Air 09/25/21 02:52 09/25/21 08:25 Temperature 98.3 F Pulse Rate 86 90 Respiratory Rate 18 Blood Pressure 128/78 152/69 H Pulse Oximetry 96 Oxygen Delivery Method Room Air BMI result Body Mass Index 36.5 Labs Results: 09/21/21 10:37 09/22/21 08:39 Labs: Laboratory Results - last 48 hr 09/23/21 09/23/21 09/24/21 12:53 18:27 09:05 POC Glucose 200 H 190 H 160 H 09/25/21 08:32 POC Glucose 143 H Imaging Radiology Impressions: ITS Impressions Chest X-Ray 09/21/21 10:15 IMPRESSION: No acute cardiopulmonary process. Abdomen/Pelvis CT 09/21/21 10:26 IMPRESSION: * No acute imaging abnormalities in the abdomen or pelvis compared to 10/29/2016. * No evidence of renal calculi or hydroureteronephrosis. * Mild diverticulosis of the distal descending and sigmoid colon without diverticulitis. * Urinary bladder wall is chronically thickened. 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 * Chronic, mild mesenteric panniculitis. Chest X-Ray 09/22/21 11:40 IMPRESSION: No acute abnormality. Medications Medications Current Medications Acetaminophen (Acetaminophen 325 Mg Tablet) 650 mg PO Q6H PRN PRN Reason: Headache/Pain Mild Scale (1-3) Al Hydroxide/Mg Hydroxide (Magnesium Hydrox/Alum Hydrox 30 Ml Oral.Susp) 30 ml PO Q6H PRN PRN Reason: Heartburn/Nausea Albuterol Sulfate (Albuterol Sulfate 90 Mcg 8 Gm Inhaler) 2 puff INHALE RQ4H PRN PRN Reason: Shortness of Breath Last Admin: 09/23/21 22:12 Dose: 2 puff Albuterol Sulfate (Albuterol Sulfate (0.083%) 2.5 Mg/3 Ml Vial.Neb) 2.5 mg INHALE Q2H PRN PRN Reason: Shortness of Breath/Wheezing Last Admin: 09/24/21 00:07 Dose: 2.5 mg Aspirin (Aspirin Enteric Coated 81 Mg Tablet.Dr) 81 mg PO DAILY [facility] Last Admin: 09/25/21 08:34 Dose: 81 mg Gabapentin (Gabapentin 300 Mg Capsule) 300 mg PO BID [facility] Last Admin: 09/25/21 08:35 Dose: 300 mg Hydroxyzine HCl (Hydroxyzine Hcl 25 Mg Tablet) 25 mg PO BEDTIME PRN PRN Reason: Anxiety Last Admin: 09/24/21 18:04 Dose: 25 mg Isosorbide Mononitrate (Isosorbide Mononitrate 30 Mg Tab.Er.24h) 30 mg PO DAILY [facility]; Protocol Last Admin: 06/25/22 08:34 Dose: 30 mg Levothyroxine Sodium (Levothyroxine Sodium 75 Mcg Tablet) 75 mcg PO DAILY@0630 [facility] Last Admin: 09/25/21 06:48 Dose: 75 mcg Lisinopril (Lisinopril 2.5 Mg Tablet) 2.5 mg PO DAILY [facility]; Protocol Last Admin: 09/25/21 08:34 Dose: 2.5 mg Magnesium Hydroxide (Milk Of Magnesia 30 Ml Oral.Susp) 30 ml PO DAILY PRN PRN Reason: Constipation Melatonin (Melatonin 3 Mg Tablet) 6 mg PO BEDTIME [facility] Last Admin: 09/24/21 21:09 Dose: 6 mg Melatonin (Melatonin 3 Mg Tablet) 6 mg PO BEDTIME PRN PRN Reason: insomnia Last Admin: 09/25/21 03:28 Dose: 6 mg Metformin HCl (Metformin Hcl 500 Mg Tablet) 500 mg PO BIDWM [facility] Last Admin: 09/25/21 08:35 Dose: 500 mg Metoprolol Succinate (Metoprolol Succinate Er 100 Mg Tab.Er.24h) 100 mg PO DAILY [facility]; Protocol Last Admin: 09/25/21 08:34 Dose: 100 mg Naproxen (Naproxen 500 Mg Tablet) 500 mg PO BID PRN PRN Reason: Pain, Moderate (Pain Scale 4-6 Last Admin: 09/22/21 02:24 Dose: 500 mg Nitroglycerin (Nitroglycerin 0.4 Mg Tab.Subl) 0.4 mg SUBLINGUAL Q5MX3 PRN PRN Reason: chest pain Last Admin: 09/25/21 02:30 Dose: 1 tab Olanzapine (Olanzapine 2.5 Mg Tablet) 2.5 mg PO DAILY [facility] Last Admin: 09/25/21 08:46 Dose: 2.5 mg Paroxetine HCl (Paroxetine Hcl 10 Mg Tablet) 10 mg PO DAILY [facility] Last Admin: 09/25/21 08:33 Dose: 10 mg Trazodone HCl (Trazodone Hcl 50 Mg Tablet) 50 mg PO BEDTIME PRN PRN Reason: Insomnia Last Admin: 09/22/21 02:24 Dose: 50 mg Trazodone HCl (Trazodone Hcl 100 Mg Tablet) 100 mg PO BEDTIME [facility] Last Admin: 09/24/21 21:09 Dose: 100 mg Allergies Allergies Allergy/AdvReac Type Severity Reaction Status Date / Time aripiprazole [From Abilify] Allergy Severe Rash Verified 09/22/21 02:28 peas Allergy Severe HIVES Verified 09/22/21 02:25 bee pollen [bee stings] AdvReac Severe Anaphylaxis Verified 09/22/21 02:29 lipitor Allergy Severe hives, Uncoded 09/22/21 02:26 rash, difficulty breathing Assessment & Plan Assessment & Plan (1) Suicidal ideation: Status: Acute Code(s): R45.851 - Suicidal ideations (2) Chest pain: Status: Acute Code(s): R07.9 - Chest pain, unspecified Assessment and Plan: review of cardiology consult shows complex cardiac history and pt has been closely followed by Dr Boyd ramon at [facility] summary of consult( see full consult for more details) Pain appears to be more of for phantom shock, question of psychological etiology. He has recurrent chest pain syndrome which appears to be noncardiac in nature.? A better marker of repolarization inpatient prolonged QRS is JT prolongation index- rather than QTC. Calculated JT prolongation index in him on the last EKG was 97.7 milliseconds which is within normal limits.? Anything below 112 milliseconds is reasonable.? Cardiology recommends every time there is initiation or dose escalation should be followed by EKG to measure JT prolongation index, which is calculated as JT(100+hr)/518.? (JT= QT-QRS). (3) Anxiety: Code(s): F41.9 - Anxiety disorder, unspecified (4) Depression: Code(s): F32.9 - Major depressive disorder, single episode, unspecified (5) Developmental delay, mild: Code(s): R62.50 - Unspecified lack of expected normal physiological development in childhood Plan CONTINUE WITH TREATMENT PLAN: continue to observe on psych unit. cardiology consult suggests neuroleptic dosing may be increased as clinically indicated and repeat ekg and calculate JT prolongation by JT(100+hr)/518.? (JT= QT-QRS). with dose escalation or new medications continue home medications regimen. respiratory consult for BiPAP; pt has device metformin 500 BID started 09/24 for DM. stabilize, discharge to outpt care. I spent __30____ minutes with the patient and/or on the patient floor today, greater than?50% of which was spent counseling/coordinating care. Patient educated on: medication risk/benefits, therapeutic strategies and medical condition Informed Consent: further education needed Reason for contiued inpatient stay Substantial Risk for: inability to function, rapid decompensation and med/psych decompensation
--- NOTE | 2021-09-25 19:20 | PC.NURSE ---
Patient reports having had a good day, no episodes of chest pain throughout the day.
[2021-09-25] MEDS: traZODone HCL 100 MG TABLET PO (22:01)
[2021-09-25] MEDS: Lidocaine 4 % Patch ADH..PATCH 1 PATCH TRANSDERMA ×2 (22:04→22:06)
[2021-09-26 08:05] VITALS: BP 157/85; PULSE 79; RESP 20; TEMP 36.6; O2SAT 96
[2021-09-26] MEDS: Albuterol Sulfate 90 MCG 8 GM INHALER 2 PUFF INHALE (08:11)
[2021-09-26] MEDS: lisinopriL 2.5 MG TABLET PO (08:12)
[2021-09-26] MEDS: Isosorbide Mononitrate 30 MG TAB.ER.24H PO (08:12)
[2021-09-26] MEDS: metFORMIN HCl 500 MG TABLET PO ×2 (08:12→17:37)
[2021-09-26] MEDS: OLANZapine 2.5 MG TABLET PO ×2 (08:12→21:49)
[2021-09-26] MEDS: Metoprolol Succinate ER 100 MG TAB.ER.24H PO (08:12)
[2021-09-26] MEDS: Aspirin Enteric Coated 81 MG TABLET.DR PO (08:12)
[2021-09-26] MEDS: Gabapentin 300 MG CAPSULE PO ×2 (08:12→21:13)
[2021-09-26] MEDS: Levothyroxine Sodium 75 MCG TABLET PO (08:13)
[2021-09-26] MEDS: PARoxetine HCL 10 MG TABLET PO (08:13)
[2021-09-26] MEDS: Lidocaine 4 % Patch ADH..PATCH 1 PATCH TRANSDERMA ×2 (08:20→08:21)
[2021-09-26] MEDS: Acetaminophen 325 MG TABLET 650 MG PO (08:21)
[2021-09-26 08:23] LABS: Glucose, Whole Blood 173 mg/dL (60-115)
[2021-09-26] MEDS: NaPROXEN 500 MG TABLET PO ×2 (09:30→21:13)
--- NOTE | 2021-09-26 12:09 | P.PNPSI_ITS ---
Subjective Subjective Date of Service: 09/26/21 Reason For Visit: Depression, SI Interim History: pt is somatically focused; reports left flank pain level 3/10 and he asks again for percocet. he tells me he continues to feels intermittent jolts from pacemaker; calmer with reassurance that cardiology consult done and no acute pathology. No SI or HI, compliant with meds Medication Compliance: Yes Side effects from medications: No Review of Systems Acute medical concerns: No Review of Systems Review of Systems no change Yes all other systems are reviewed and are negative Constitutional: Reports no additional constitutional complaints, Denies body ache(s), Denies chills, Denies fatigue, Denies fever(s), Denies headache(s), Denies malaise and Denies weakness Eyes: Reports no additional eye complaints and Denies diplopia Denies vertigo, Denies dizziness, Denies otalgia, Denies headache(s), Denies mouth pain, Denies post nasal drip, Denies sinus pain, Denies sinus pressure, Reports sore throat and Denies throat swelling Cardiovascular: Reports chest pain, Denies syncope, Denies leg edema, Denies lightheadedness, Denies Loss of Consciousness, Denies palpitations and Denies dyspnea Respiratory: Reports no additional respiratory complaints, Denies chest congestion, Reports cough and Denies dyspnea Gastrointestinal: Reports no additional gastrointestinal complaints, Denies abdominal pain, Denies hematochezia, Denies constipation, Denies diarrhea, Denies nausea and Denies vomiting Genitourinary: Reports no additional male genitourinary complaints, Reports dysuria and Reports flank pain Musculoskeletal: Reports no additional musculoskeletal complaints Skin/Breast: Reports system reviewed and no additional complaints, except as docu Reports system reviewed and no additional complaints, except as documented, Denies confusion, Denies vertigo, Denies dizziness, Denies syncope, Denies headache(s) and Denies weakness Psychiatric: Denies anxiety, Denies confusion, Reports depression, Denies visual hallucinations, Denies hallucinations, Denies homicidal ideation and Reports suicidal ideation Endocrine: Denies fatigue and Denies palpitations Hematologic/Lymphatic: Reports no additional hematologic/lymphatic complaints Allergic/Immunologic: Denies throat swelling Mental Status Exam Mental Status Exam Narrative: disheveled. cooperative. speech nml in rate, amount. incr loudness. nml tone, decr latency. thoughts linear and logical. theme of thoughts on somatic discomfort. affect constricted, hyper-intense, non-labile. mood depressed. endorses SI if he were to be outside the hospital. no HI/AVH expressed. Diagnostics Vital Signs (24Hr): Vital Signs - 24 hr 09/25/21 21:28 09/26/21 08:05 Temperature 97.8 F 97.8 F Pulse Rate 86 79 Respiratory Rate 18 20 Blood Pressure 133/87 157/85 H Pulse Oximetry 96 96 Oxygen Delivery Method Room Air Room Air BMI result Body Mass Index 36.5 Labs Results: 09/21/21 10:37 09/22/21 08:39 Labs: Laboratory Results - last 48 hr 09/25/21 09/26/21 08:32 08:10 POC Glucose 143 H 173 H Imaging Radiology Impressions: ITS Impressions Chest X-Ray 09/21/21 10:15 IMPRESSION: No acute cardiopulmonary process. Abdomen/Pelvis CT 09/21/21 10:26 IMPRESSION: * No acute imaging abnormalities in the abdomen or pelvis compared to 10/29/2016. * No evidence of renal calculi or hydroureteronephrosis. * Mild diverticulosis of the distal descending and sigmoid colon without diverticulitis. * Urinary bladder wall is chronically thickened. 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 * Chronic, mild mesenteric panniculitis. Chest X-Ray 09/22/21 11:40 IMPRESSION: No acute abnormality. Medications Medications Current Medications Acetaminophen (Acetaminophen 325 Mg Tablet) 650 mg PO Q6H PRN PRN Reason: Headache/Pain Mild Scale (1-3) Last Admin: 09/26/21 08:21 Dose: 650 mg Al Hydroxide/Mg Hydroxide (Magnesium Hydrox/Alum Hydrox 30 Ml Oral.Susp) 30 ml PO Q6H PRN PRN Reason: Heartburn/Nausea Albuterol Sulfate (Albuterol Sulfate 90 Mcg 8 Gm Inhaler) 2 puff INHALE RQ4H PRN PRN Reason: Shortness of Breath Last Admin: 09/26/21 08:11 Dose: 2 puff Albuterol Sulfate (Albuterol Sulfate (0.083%) 2.5 Mg/3 Ml Vial.Neb) 2.5 mg INHALE Q2H PRN PRN Reason: Shortness of Breath/Wheezing Last Admin: 09/24/21 00:07 Dose: 2.5 mg Aspirin (Aspirin Enteric Coated 81 Mg Tablet.Dr) 81 mg PO DAILY [facility] Last Admin: 09/26/21 08:12 Dose: 81 mg Gabapentin (Gabapentin 300 Mg Capsule) 300 mg PO BID [facility] Last Admin: 09/26/21 08:12 Dose: 300 mg Hydroxyzine HCl (Hydroxyzine Hcl 25 Mg Tablet) 25 mg PO BEDTIME PRN PRN Reason: Anxiety Last Admin: 09/24/21 18:04 Dose: 25 mg Isosorbide Mononitrate (Isosorbide Mononitrate 30 Mg Tab.Er.24h) 30 mg PO DAILY [facility]; Protocol Last Admin: 09/26/21 08:12 Dose: 30 mg Levothyroxine Sodium (Levothyroxine Sodium 75 Mcg Tablet) 75 mcg PO DAILY@30 [facility] Last Admin: 09/26/21 08:13 Dose: 75 mcg Lidocaine (Lidocaine 4 % Patch Adh..Patch) 1 patch TRANSDERMA DAILY [facility]; Protocol Last Admin: 09/26/21 08:20 Dose: 1 patch Lidocaine (Lidocaine 4 % Patch Adh..Patch) 1 patch TRANSDERMA DAILY [facility]; Protocol Last Admin: 09/26/21 08:21 Dose: 1 patch Lisinopril (Lisinopril 2.5 Mg Tablet) 2.5 mg PO DAILY [facility]; Protocol Last Admin: 09/26/21 08:12 Dose: 2.5 mg Magnesium Hydroxide (Milk Of Magnesia 30 Ml Oral.Susp) 30 ml PO DAILY PRN PRN Reason: Constipation Melatonin (Melatonin 3 Mg Tablet) 6 mg PO BEDTIME [facility] Last Admin: 09/25/21 22:01 Dose: 6 mg Melatonin (Melatonin 3 Mg Tablet) 6 mg PO BEDTIME PRN PRN Reason: insomnia Last Admin: 09/25/21 03:28 Dose: 6 mg Metformin HCl (Metformin Hcl 500 Mg Tablet) 500 mg PO BIDWM [facility] Last Admin: 09/26/21 08:12 Dose: 500 mg Metoprolol Succinate (Metoprolol Succinate Er 100 Mg Tab.Er.24h) 100 mg PO DAILY [facility]; Protocol Last Admin: 09/26/21 08:12 Dose: 100 mg Naproxen (Naproxen 500 Mg Tablet) 500 mg PO BID PRN PRN Reason: Pain, Moderate (Pain Scale 4-6 Last Admin: 09/26/21 09:30 Dose: 500 mg Nitroglycerin (Nitroglycerin 0.4 Mg Tab.Subl) 0.4 mg SUBLINGUAL Q5MX3 PRN PRN Reason: chest pain Last Admin: 09/25/21 02:30 Dose: 1 tab Olanzapine (Olanzapine 2.5 Mg Tablet) 2.5 mg PO DAILY [facility] Last Admin: 09/26/21 08:12 Dose: 2.5 mg Paroxetine HCl (Paroxetine Hcl 10 Mg Tablet) 10 mg PO DAILY [facility] Last Admin: 09/26/21 08:13 Dose: 10 mg Trazodone HCl (Trazodone Hcl 50 Mg Tablet) 50 mg PO BEDTIME PRN PRN Reason: Insomnia Last Admin: 09/22/21 02:24 Dose: 50 mg Trazodone HCl (Trazodone Hcl 100 Mg Tablet) 100 mg PO BEDTIME [facility] Last Admin: 09/25/21 22:01 Dose: 100 mg Allergies Allergies Allergy/AdvReac Type Severity Reaction Status Date / Time aripiprazole [From Abilify] Allergy Severe Rash Verified 09/22/21 02:28 peas Allergy Severe HIVES Verified 09/22/21 02:25 bee pollen [bee stings] AdvReac Severe Anaphylaxis Verified 09/22/21 02:29 lipitor Allergy Severe hives, Uncoded 09/22/21 02:26 rash, difficulty breathing Assessment & Plan Assessment & Plan (1) Suicidal ideation: Status: Acute Code(s): R45.851 - Suicidal ideations (2) Chest pain: Status: Acute Code(s): R07.9 - Chest pain, unspecified Assessment and Plan: review of cardiology consult shows complex cardiac history and pt has been closely followed by Dr Boyd ramon at [facility] summary of consult( see full consult for more details) Pain appears to be more of for phantom shock, question of psychological etiology. He has recurrent chest pain syndrome which appears to be noncardiac in nature.? A better marker of repolarization inpatient prolonged QRS is JT prolongation index- rather than QTC. Calculated JT prolongation index in him on the last EKG was 97.7 milliseconds which is within normal limits.? Anything below 112 milliseconds is reasonable.? Cardiology recommends every time there is initiation or dose escalation should be followed by EKG to measure JT prolongation index, which is calculated as JT(100+hr)/518.? (JT= QT-QRS). (3) Anxiety: Code(s): F41.9 - Anxiety disorder, unspecified (4) Depression: Code(s): F32.9 - Major depressive disorder, single episode, unspecified (5) Developmental delay, mild: Code(s): R62.50 - Unspecified lack of expected normal physiological development in childhood Plan CONTINUE WITH TREATMENT PLAN: continue to observe on psych unit. cardiology consult suggests neuroleptic dosing may be increased as clinically indicated and repeat ekg and calculate JT prolongation by JT(100+hr)/518.? (JT= QT-QRS). with dose escalation or new medications continue home medications regimen. respiratory consult for BiPAP; pt has device metformin 500 BID started 09/24 for DM. started on lidocaine patch stabilize, discharge to outpt care. I spent __15____ minutes with the patient and/or on the patient floor today, greater than?50% of which was spent counseling/coordinating care. Reason for contiued inpatient stay Substantial Risk for: harm to self, inability to function and med/psych decompensation
[2021-09-26 21:10] VITALS: BP 107/67; PULSE 80; RESP 20; TEMP 36.7; O2SAT 96
[2021-09-26] MEDS: hydrOXYzine HCL 25 MG TABLET PO (21:13)
[2021-09-26] MEDS: traZODone HCL 100 MG TABLET PO (21:13)
[2021-09-26] MEDS: Melatonin 3 MG TABLET 6 MG PO (21:13)
[2021-09-27] VITALS (7 sets, daily range): BP systolic 83–119; BP diastolic 53–62; PULSE 84–93; RESP 16; TEMP 36.7; O2SAT 94–97
--- NOTE | 2021-09-27 | ECG_ITS ---
Test Reason : CP Blood Pressure : / mmHG Vent. Rate : 087 BPM Atrial Rate : 087 BPM P-R Int : 192 ms QRS Dur : 182 ms QT Int : 418 ms P-R-T Axes : 065 108 047 degrees QTc Int : 502 ms Normal sinus rhythm Right bundle branch block Abnormal ECG When compared with ECG of 25-SEP-2021 02:50, No significant change was found Referred By: Shirley Wang Electronically Signed By:PEPE CABALLERO
[2021-09-27] MEDS: Levothyroxine Sodium 75 MCG TABLET PO (06:56)
[2021-09-27] MEDS: OLANZapine 2.5 MG TABLET PO (10:02)
[2021-09-27] MEDS: Gabapentin 300 MG CAPSULE PO ×2 (10:02→20:57)
[2021-09-27] MEDS: metFORMIN HCl 500 MG TABLET PO ×2 (10:02→17:48)
[2021-09-27] MEDS: PARoxetine HCL 10 MG TABLET PO (10:02)
[2021-09-27] MEDS: Metoprolol Succinate ER 100 MG TAB.ER.24H PO (10:02)
[2021-09-27] MEDS: Isosorbide Mononitrate 30 MG TAB.ER.24H PO (10:02)
[2021-09-27] MEDS: lisinopriL 2.5 MG TABLET PO (10:02)
[2021-09-27] MEDS: Aspirin Enteric Coated 81 MG TABLET.DR PO (10:02)
[2021-09-27] MEDS: Lidocaine 4 % Patch ADH..PATCH 1 PATCH TRANSDERMA ×2 (10:03)
[2021-09-27] MEDS: Acetaminophen 325 MG TABLET 650 MG PO ×2 (12:33→21:19)
--- NOTE | 2021-09-27 14:59 | HO.PSYCHPN ---
Subjective Subjective Date of Service: 09/27/21 Reason For Visit: Depression, SI Interim History: calm, cooperative. aware he will be discharged tomorrow. interested in glucometer so he can check his FSBS. will F/U with PCP after discharge. does c/o CP pver weekend and flank pain; informs pt that these are complaints to be followed up by his outpatient cardiology team and PCP. per staff, c/o left flank and shoulder pain. tyl/naprox worked well. denies SI/HI. denied CP yesterday. denied anxiety. endorsed dep 6. later in the day agitated and expressing SI. had a PRN of zyprexa, calmed, and slept well. Mental Status Exam Mental Status Exam Narrative: disheveled. no PMA/PMR. cooperative. speech nml in rate, amount. incr loudness. nml tone, decr latency. thoughts linear and logical. affect constricted, hyper-intense, non-labile. mood depressed. no SI/HI/AVH expressed. Diagnostics Vital Signs (24Hr): Vital Signs - 24 hr 09/26/21 21:10 09/27/21 06:00 Temperature 98.1 F 98.1 F Pulse Rate 80 93 Respiratory Rate 20 16 Blood Pressure 107/67 100/53 L Pulse Oximetry 96 95 Oxygen Delivery Method Room Air Room Air BMI result Body Mass Index 36.5 Labs Results: 09/21/21 10:37 09/22/21 08:39 Labs: Laboratory Results - last 48 hr 09/26/21 08:10 POC Glucose 173 H Imaging Radiology Impressions: ITS Impressions Chest X-Ray 09/21/21 10:15 IMPRESSION: No acute cardiopulmonary process. Abdomen/Pelvis CT 09/21/21 10:26 IMPRESSION: * No acute imaging abnormalities in the abdomen or pelvis compared to 10/29/2016. * No evidence of renal calculi or hydroureteronephrosis. * Mild diverticulosis of the distal descending and sigmoid colon without diverticulitis. * Urinary bladder wall is chronically thickened. 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 * Chronic, mild mesenteric panniculitis. Chest X-Ray 09/22/21 11:40 IMPRESSION: No acute abnormality. Medications Medications Current Medications Acetaminophen (Acetaminophen 325 Mg Tablet) 650 mg PO Q6H PRN PRN Reason: Headache/Pain Mild Scale (1-3) Last Admin: 09/27/21 12:33 Dose: 650 mg Al Hydroxide/Mg Hydroxide (Magnesium Hydrox/Alum Hydrox 30 Ml Oral.Susp) 30 ml PO Q6H PRN PRN Reason: Heartburn/Nausea Albuterol Sulfate (Albuterol Sulfate 90 Mcg 8 Gm Inhaler) 2 puff INHALE RQ4H PRN PRN Reason: Shortness of Breath Last Admin: 09/26/21 08:11 Dose: 2 puff Albuterol Sulfate (Albuterol Sulfate (0.083%) 2.5 Mg/3 Ml Vial.Neb) 2.5 mg INHALE Q2H PRN PRN Reason: Shortness of Breath/Wheezing Last Admin: 09/24/21 00:07 Dose: 2.5 mg Aspirin (Aspirin Enteric Coated 81 Mg Tablet.Dr) 81 mg PO DAILY [facility] Last Admin: 09/27/21 10:02 Dose: 81 mg Gabapentin (Gabapentin 300 Mg Capsule) 300 mg PO BID [facility] Last Admin: 09/27/21 10:02 Dose: 300 mg Gabapentin (Gabapentin 300 Mg Capsule) 300 mg PO DAILY PRN PRN Reason: anxiety Hydroxyzine HCl (Hydroxyzine Hcl 25 Mg Tablet) 25 mg PO BEDTIME PRN PRN Reason: Anxiety Last Admin: 09/26/21 21:13 Dose: 25 mg Isosorbide Mononitrate (Isosorbide Mononitrate 30 Mg Tab.Er.24h) 30 mg PO DAILY [facility]; Protocol Last Admin: 09/27/21 10:02 Dose: 30 mg Levothyroxine Sodium (Levothyroxine Sodium 75 Mcg Tablet) 75 mcg PO DAILY@0630 [facility] Last Admin: 09/27/21 06:56 Dose: 75 mcg Lidocaine (Lidocaine 4 % Patch Adh..Patch) 1 patch TRANSDERMA DAILY [facility]; Protocol Last Admin: 09/27/21 10:03 Dose: 1 patch Lidocaine (Lidocaine 4 % Patch Adh..Patch) 1 patch TRANSDERMA DAILY [facility]; Protocol Last Admin: 09/27/21 10:03 Dose: 1 patch Lisinopril (Lisinopril 2.5 Mg Tablet) 2.5 mg PO DAILY [facility]; Protocol Last Admin: 09/27/21 10:02 Dose: 2.5 mg Magnesium Hydroxide (Milk Of Magnesia 30 Ml Oral.Susp) 30 ml PO DAILY PRN PRN Reason: Constipation Melatonin (Melatonin 3 Mg Tablet) 6 mg PO BEDTIME [facility] Last Admin: 09/26/21 21:13 Dose: 6 mg Melatonin (Melatonin 3 Mg Tablet) 6 mg PO BEDTIME PRN PRN Reason: insomnia Last Admin: 09/25/21 03:28 Dose: 6 mg Metformin HCl (Metformin Hcl 500 Mg Tablet) 500 mg PO BIDWM [facility] Last Admin: 09/27/21 10:02 Dose: 500 mg Metoprolol Succinate (Metoprolol Succinate Er 100 Mg Tab.Er.24h) 100 mg PO DAILY [facility]; Protocol Last Admin: 09/27/21 10:02 Dose: 100 mg Naproxen (Naproxen 500 Mg Tablet) 500 mg PO BID PRN PRN Reason: Pain, Moderate (Pain Scale 4-6 Last Admin: 09/26/21 21:13 Dose: 500 mg Nitroglycerin (Nitroglycerin 0.4 Mg Tab.Subl) 0.4 mg SUBLINGUAL Q5MX3 PRN PRN Reason: chest pain Last Admin: 09/25/21 02:30 Dose: 1 tab Olanzapine (Olanzapine 2.5 Mg Tablet) 2.5 mg PO DAILY [facility] Last Admin: 09/27/21 10:02 Dose: 2.5 mg Olanzapine (Olanzapine 2.5 Mg Tablet) 2.5 mg PO DAILY PRN PRN Reason: anxiety somatic preoccupation Last Admin: 09/26/21 21:49 Dose: 2.5 mg Paroxetine HCl (Paroxetine Hcl 10 Mg Tablet) 10 mg PO DAILY [facility] Last Admin: 09/27/21 10:02 Dose: 10 mg Trazodone HCl (Trazodone Hcl 50 Mg Tablet) 50 mg PO BEDTIME PRN PRN Reason: Insomnia Last Admin: 09/22/21 02:24 Dose: 50 mg Trazodone HCl (Trazodone Hcl 100 Mg Tablet) 100 mg PO BEDTIME [facility] Last Admin: 09/26/21 21:13 Dose: 100 mg Allergies Allergies Allergy/AdvReac Type Severity Reaction Status Date / Time aripiprazole [From Abilify] Allergy Severe Rash Verified 09/22/21 02:28 peas Allergy Severe HIVES Verified 09/22/21 02:25 bee pollen [bee stings] AdvReac Severe Anaphylaxis Verified 09/22/21 02:29 lipitor Allergy Severe hives, Uncoded 09/22/21 02:26 rash, difficulty breathing Assessment & Plan Assessment & Plan (1) Suicidal ideation: Status: Acute Code(s): R45.851 - Suicidal ideations (2) Chest pain: Status: Acute Code(s): R07.9 - Chest pain, unspecified Assessment and Plan: review of cardiology consult shows complex cardiac history and pt has been closely followed by Dr Boyd ramon at [facility] summary of consult( see full consult for more details) Pain appears to be more of for phantom shock, question of psychological etiology. He has recurrent chest pain syndrome which appears to be noncardiac in nature.? A better marker of repolarization inpatient prolonged QRS is JT prolongation index- rather than QTC. Calculated JT prolongation index in him on the last EKG was 97.7 milliseconds which is within normal limits.? Anything below 112 milliseconds is reasonable.? Cardiology recommends every time there is initiation or dose escalation should be followed by EKG to measure JT prolongation index, which is calculated as JT(100+hr)/518.? (JT= QT-QRS). (3) Anxiety: Code(s): F41.9 - Anxiety disorder, unspecified (4) Depression: Code(s): F32.9 - Major depressive disorder, single episode, unspecified (5) Developmental delay, mild: Code(s): R62.50 - Unspecified lack of expected normal physiological development in childhood Plan CONTINUE WITH TREATMENT PLAN: continue to observe on psych unit. cardiology consult suggests neuroleptic dosing may be increased as clinically indicated and repeat ekg and calculate JT prolongation by JT(100+hr)/518.? (JT= QT-QRS). with dose escalation or new medications continue home medications regimen. respiratory consult for BiPAP; pt has device metformin 500 BID started 09/24 for DM. started on lidocaine patch discharge to outpt care 09/28. I spent ___25___ minutes with the patient and/or on the patient floor today, greater than?50% of which was spent counseling/coordinating care. Reason for contiued inpatient stay Substantial Risk for: inability to function and rapid decompensation
[2021-09-27] MEDS: Nitroglycerin 0.4 MG TAB.SUBL SUBLINGUAL (20:15)
[2021-09-27] MEDS: oxyCODONE HCl Immed Release 5 MG TABLET PO (20:15)
--- NOTE | 2021-09-27 20:15 | PM.EVENT ---
Event Note Date of Service: 09/27/21 Event Note: Rapid response was called because pt fell to the ground, no head injury or LOC, complains of chest pain (has had similar episodes during this admission), pt claims of AICD going off, Stat ECG shows no ischemic changes, Normal sinus rhythm, Right bundle branch block, QTc is 502 (prev 504, no significant changes). I consulted with hospitalist, Dr. Griffin, will order troponin and oxycodone 5 mg. Pt also received his nitro. Patient is known to have these episodes including [place] [facility] [place] and found to be Ok.
[2021-09-27] MEDS: traZODone HCL 100 MG TABLET PO (20:57)
[2021-09-27] MEDS: Melatonin 3 MG TABLET 6 MG PO (20:57)
[2021-09-27] MEDS: NaPROXEN 500 MG TABLET PO (21:19)
--- NOTE | 2021-09-27 22:13 | PC.NURSE ---
At 20:00 pt came out of his room into the hallway, and lowered self to the ground while grabbing his chest. Rapid response was called, pt was A/Ox3, reporting chest and arm pain and lightheadedness. 0.4mg Nitro SL given at 20:15, VS - BP 107/53, HR 84, O2 97% RR 16. Responding MD ordered labs, EKG, orthostatic VS, 5mg oxycodone given at 20:20. Orthostatic VS show drop in bp when changing position, CONTROL INSPECTOR aware. Pt continues to c/o chest pain, given naproxen, tylenol with HS meds. Pt agreeable to call if feeling lightheaded again and to change positions slowly.
[2021-09-28] MEDS: Levothyroxine Sodium 75 MCG TABLET PO (06:14)
[2021-09-28 08:00] VITALS: BP 125/70; BP 126/82; PULSE 82; PULSE 89; RESP 22; TEMP 36.4; O2SAT 96
[2021-09-28] MEDS: Lidocaine 4 % Patch ADH..PATCH 1 PATCH TRANSDERMA ×2 (08:42→08:44)
[2021-09-28] MEDS: Isosorbide Mononitrate 30 MG TAB.ER.24H PO (08:43)
[2021-09-28] MEDS: PARoxetine HCL 10 MG TABLET PO (08:43)
[2021-09-28] MEDS: Aspirin Enteric Coated 81 MG TABLET.DR PO (08:43)
[2021-09-28] MEDS: OLANZapine 2.5 MG TABLET PO (08:43)
[2021-09-28] MEDS: lisinopriL 2.5 MG TABLET PO (08:44)
[2021-09-28] MEDS: Gabapentin 300 MG CAPSULE PO (08:44)
[2021-09-28] MEDS: Metoprolol Succinate ER 100 MG TAB.ER.24H PO (08:44)
[2021-09-28] MEDS: metFORMIN HCl 500 MG TABLET PO (08:44)
[2021-09-28 08:59] LABS: Glucose, Whole Blood 149 mg/dL (60-115)
[2021-09-28] MEDS: Acetaminophen 325 MG TABLET 650 MG PO (10:57)
--- NOTE | 2021-09-28 11:21 | PM.PSYDC ---
DS: Providers Provider Date of Service: 09/28/21 Date of admission: 09/22/21 00:02 Primary care physician: Amari Vyas DO, MD Consults: 09/22/21 00:03 Consult to Hospitalist Routine Consulting Provider: Hospitalist Reason For Exam: chest discomfot respiratory sx thrombocytopenia 09/22/21 18:49 Consult to Cardiology Routine Consulting Provider: Paul Dennison Reason for consultation: chest pain, hx TOF s/p repair, ICD DS: Diagnosis Discharge Diagnosis (1) Suicidal ideation: Status: Acute (2) Chest pain: Status: Acute (3) Anxiety: (4) Depression: (5) Developmental delay, mild: DS: Medications Discharge Medications Home Medications: Previous Rx's Medication Instructions Recorded acetaminophen 325 mg tablet 650 mg PO Q6H PRN Headache/Pain 09/22/21 Mild Scale (1-3) #0 tabs aspirin 81 mg tablet,delayed 81 mg PO DAILY #0 tabs 09/22/21 release hydroxyzine HCl 25 mg tablet 25 mg PO BEDTIME PRN Anxiety #0 09/22/21 tabs isosorbide mononitrate 30 mg 30 mg PO DAILY #0 tabs 09/22/21 tablet,extended release 24 hr levothyroxine 75 mcg tablet 75 mcg PO DAILY@0630 #0 tabs 09/22/21 lisinopril 2.5 mg tablet 2.5 mg PO DAILY #0 tabs 09/22/21 naproxen 500 mg tablet 500 mg PO BID PRN Pain, Moderate 09/22/21 (Pain Scale 4-6 #0 tabs paroxetine HCl 10 mg tablet 10 mg PO DAILY #0 tabs 09/22/21 albuterol sulfate 90 mcg/actuation 2 puff inhalation RQ4H PRN 09/28/21 aerosol inhaler Shortness Of Breath 30 days #1 inhaler gabapentin 300 mg capsule 300 mg PO BID #0 caps 09/28/21 gabapentin 300 mg capsule 300 mg PO BID 30 days #60 caps 09/28/21 gabapentin 300 mg capsule 300 mg PO DAILY PRN anxiety #0 caps 09/28/21 lidocaine 4 % topical patch 1 patch transdermal DAILY 30 days 09/28/21 (Lidocaine Pain Relief) #30 ea melatonin 3 mg tablet 6 mg PO BEDTIME #0 tabs 09/28/21 metformin 500 mg tablet 500 mg PO BIDWM 30 days #60 tabs 06/28/22 metoprolol succinate 100 mg 100 mg PO DAILY #0 tabs 09/28/21 tablet,extended release 24 hr olanzapine 2.5 mg tablet 2.5 mg PO DAILY #0 tabs 09/28/21 olanzapine 2.5 mg tablet 2.5 mg PO DAILY PRN anxiety 09/28/21 somatic preoccupation #0 tabs trazodone 100 mg tablet 100 mg PO BEDTIME #0 tabs 09/28/21 Mental Status Exam Mental Status Exam Narrative: disheveled. no PMA/PMR. cooperative. speech nml in rate, amount. incr loudness. nml tone, decr latency. thoughts linear and logical. affect constricted, hyper-intense, non-labile. mood a little depressed, not as bad. no SI/SIBI/HI/AVH. Data Data Completed and Pending Completed studies during hospitalization [Text1]: 09/21/21 09/22/21 09/22/21 12:21 08:39 10:17 Sodium 140 Potassium 4.9 Chloride 106 Carbon Dioxide 27 Anion Gap 12 BUN 20 H Creatinine 1.23 Estim Creat Clear Calc 79.8 Estimated GFR > 60 POC Glucose 221 H Fasting Glucose 230 H D Calcium 8.5 Magnesium Total Bilirubin 0.8 AST 11 ALT 15 Alkaline Phosphatase 85 Troponin I High Sens < 3.5 B-Natriuretic Peptide Total Protein 6.3 L Albumin 3.8 Triglycerides 109 Cholesterol 182 LDL Cholesterol, Calc 122 HDL Cholesterol 39 09/22/21 09/22/21 09/22/21 10:39 10:39 12:49 Sodium Potassium Chloride Carbon Dioxide Anion Gap BUN Creatinine Estim Creat Clear Calc Estimated GFR POC Glucose 184 H Fasting Glucose Calcium Magnesium Total Bilirubin AST ALT Alkaline Phosphatase Troponin I High Sens < 3.5 B-Natriuretic Peptide 87 Total Protein Albumin Triglycerides Cholesterol LDL Cholesterol, Calc HDL Cholesterol 09/22/21 09/22/21 09/22/21 14:15 17:42 17:42 Sodium Potassium Chloride Carbon Dioxide Anion Gap BUN Creatinine Estim Creat Clear Calc Estimated GFR POC Glucose Fasting Glucose Calcium Magnesium 2.0 Total Bilirubin AST ALT Alkaline Phosphatase Troponin I High Sens 4.8 5.9 B-Natriuretic Peptide Total Protein Albumin Triglycerides Cholesterol LDL Cholesterol, Calc HDL Cholesterol 09/22/21 09/22/21 09/23/21 17:50 23:00 09:29 Sodium Potassium Chloride Carbon Dioxide Anion Gap BUN Creatinine Estim Creat Clear Calc Estimated GFR POC Glucose 225 H 223 H 133 H Fasting Glucose Calcium Magnesium Total Bilirubin AST ALT Alkaline Phosphatase Troponin I High Sens B-Natriuretic Peptide Total Protein Albumin Triglycerides Cholesterol LDL Cholesterol, Calc HDL Cholesterol 09/23/21 09/23/21 09/24/21 12:53 18:27 09:05 Sodium Potassium Chloride Carbon Dioxide Anion Gap BUN Creatinine Estim Creat Clear Calc Estimated GFR POC Glucose 200 H 190 H 160 H Fasting Glucose Calcium Magnesium Total Bilirubin AST ALT Alkaline Phosphatase Troponin I High Sens B-Natriuretic Peptide Total Protein Albumin Triglycerides Cholesterol LDL Cholesterol, Calc HDL Cholesterol 09/25/21 09/26/21 09/27/21 08:32 08:10 20:26 Sodium Potassium Chloride Carbon Dioxide Anion Gap BUN Creatinine Estim Creat Clear Calc Estimated GFR POC Glucose 143 H 173 H Fasting Glucose Calcium Magnesium Total Bilirubin AST ALT Alkaline Phosphatase Troponin I High Sens 4.0 B-Natriuretic Peptide Total Protein Albumin Triglycerides Cholesterol LDL Cholesterol, Calc HDL Cholesterol 09/28/21 08:56 Sodium Potassium Chloride Carbon Dioxide Anion Gap BUN Creatinine Estim Creat Clear Calc Estimated GFR POC Glucose 149 H Fasting Glucose Calcium Magnesium Total Bilirubin AST ALT Alkaline Phosphatase Troponin I High Sens B-Natriuretic Peptide Total Protein Albumin Triglycerides Cholesterol LDL Cholesterol, Calc HDL Cholesterol Imaging Diagnostic Imaging Impressions Chest X-Ray 09/21/21 10:15 IMPRESSION: No acute cardiopulmonary process. Abdomen/Pelvis CT 09/21/21 10:26 IMPRESSION: * No acute imaging abnormalities in the abdomen or pelvis compared to 10/29/2016. * No evidence of renal calculi or hydroureteronephrosis. * Mild diverticulosis of the distal descending and sigmoid colon without diverticulitis. * Urinary bladder wall is chronically thickened. 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 * Chronic, mild mesenteric panniculitis. Chest X-Ray 09/22/21 11:40 IMPRESSION: No acute abnormality. DS: Summary Hospital Course Hospital Course: per 09/22 admission note: 61 yo single white male laura self-presented c/o SI due to chronic medical problems.? he reports he [place] [facility] but they had cleared him medically and did not find him suitable for psychiatric admission, so he came to [facility].? he reported a plan to overdose on his medications, which he brought with him in a backpack.? pt was noted to be extremely solicitous of crisis staff and expressing affect incongruent with his stated stated depressed mood but consistent with his stated anxious mood.? once on unit, pt c/o severe CP and went to ground in the [place]; rapid response was called and pt was ROMIed after very nearly being discharged to medicine service.? met with pt later in the day when things were more calm, but pt was clearly very anxious about his medical status and did c/o SI 2/2 chronic medical problems.? agreed to continue current regimen and to investigate whether it would be connelly from cardiology perspective to increase dosages of medications which might prolong QTc. Past Psychiatric History: long h/o crisis evaluations, inpatient stays, reported SI. reported h/o SIB (cutting self with broken CD, taking 8 pills of the same medication at once.? both instances occurred while hospitalized). no current outpt providers, PCP prescribes psych meds currently. Medical Evaluation Reviewed: Yes [facility] Medical History? Anxiety Artificial cardiac pacemaker Asthma Cardiac defibrillator in place COPD (chronic obstructive pulmonary disease) Depression Developmental delay, mild Diabetes GERD (gastroesophageal reflux disease) History of ETOH abuse Hyperlipidemia Hypertension Hyperthyroidism RBBB Seizure Sleep apnea Surgical History? History of cardiac cath Family History: sibs have h/o alcohol use disorder Social History: developmentally disabled.? 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 lives in a shared apartment with people he knows from and .? he spends time with those friends and with a brother and sister.? HS grad with support.? mother three years ago, he was very close with her. Substance History: h/o alcohol dependence.? sober 2 years, attends .? h/o detoxes, [address]. h/o problematic gambling behaviors Trauma History: none described 09/23: calm, cooperative.? states he is feeling more down today, c/o SI.? encouraged pt to persevere on current psych regimen.? pt c/o too many POC sticks.? glucose reviewed, btwn 100 and 200.? MD agrees to decrease POC to once daily and suggests starting metformin, with which pt agrees.? per staff, anx 7, dep 5.? sleeping OK.? eating well.? groggy in the morning.? feels safe in the hospital but emphasizes that if he were in the community, that would not be the case. 09/24: pt found resting in his bed.? easily rousable, comes to interview room for discussion.? states his CP is gone, and he was seen by the cotton wringer this morning.? states cards told him not to worry about the QTc.? reviews cardiology note with pt, which supports his statement.? c/o feeling agitated (frustrated) that he continues to have this relapsing remitting CP and nobody can tell him what it is.? MD informs him cardiology believes it is not cardiac in etiology and suggests it may be psychogenic, which he considers.? c/o depression being still high. ? MD recommends against changes to regimen currently and to continue and observe for improvement, to which pt agrees.? per staff, dep 5 and anx 7 yesterday.? no SI.? no VH.? interactive with peers.? slept well.? appetite good.? moderate dep/anx.? +SI, feels safe here.? had BiPAP NOC. 09/25: pt has pacemaker; abnormal ekg.cardiology consutl reviewed and in chart;? pain syndrome with possible psychological etiology; pt is somatically focused; he tells me last night he felt a jolt from pacemaker; felt reassured that cardiology consult done and no acute pathology. He then told me about pain in flank area; no changes in urine; no constipation; asked for percocet. encouraged pt to use tylenol, ibuprofen, increase fluids and can use warm packs if needed. UA 09/21 negative and no fever. Pt appeared to do well with reassurance 09/26: pt is somatically focused; reports left flank pain level 3/10 and he asks again for percocet. he tells me he continues to feels intermittent jolts from pacemaker; calmer with reassurance that cardiology consult done and no acute pathology. No SI or HI, compliant with meds 09/27: calm, cooperative.? aware he will be discharged tomorrow.? interested in glucometer so he can check his FSBS.? will F/U with PCP after discharge.? does c/o CP pver weekend and flank pain; informs pt that these are complaints to be followed up by his outpatient cardiology team and PCP.? per staff, c/o left flank and shoulder pain.? tyl/naprox worked well.? denies SI/HI.? denied CP yesterday.? denied anxiety.? endorsed dep 6.? later in the day agitated and expressing SI.? had a PRN of zyprexa, calmed, and slept well. Precis: continued home medications regimen. respiratory consult for BiPAP; pt has device metformin 500 BID started 09/24 for DM. started on lidocaine patch cardiology consult suggests neuroleptic dosing may be increased as clinically indicated and repeat ekg and calculate? ? JT prolongation? by JT(100+hr)/518.? (JT= QT-QRS) with dose escalation or new medications. discharged to outpt care 09/28. SI resolved. review of cardiology consult shows complex cardiac history and pt has been closely followed by Dr Boyd ramon at [facility] summary of consult( see full consult for more details) Pain appears to be more of for phantom shock, question of psychological etiology. He has recurrent chest pain syndrome which appears to be noncardiac in nature.? A better marker of repolarization inpatient prolonged QRS is JT prolongation index- rather than QTC.? ? Calculated JT prolongation index in him on the last EKG was 97.7 milliseconds which is within normal limits.? Anything below 112 milliseconds is reasonable.? Cardiology recommends every time there is initiation or dose escalation should be followed by EKG to measure JT prolongation index, which is calculated as JT(100+hr)/518.? (JT= QT-QRS). Time Spent with Patient Time attestation: Total time spent providing and/or coordinating discharge services: Time spent: Greater than 30 minutes Discharge Plan Discharge Patient Disposition: Home, Self-Care Discharge Diagnosis: Depressive Disorder NOS Referrals: [facility], THERAPIST [Other] - 10/07/21 10:00 am Jean Paul Drake (psychiatrist) [Other] - 10/21/21 2:00 pm (In office appointment) Amari Vyas DO, MD [Primary Care Provider] - 10/01/21 9:30 am Discharge Medications: New isosorbide mononitrate 30 mg Tablet Extended Release 24 Hr 30 mg PO DAILY Qty: 0 0RF Protocol: Hold for SBP< HOLD for SBP < : 90 aspirin 81 mg Tablet,Delayed Release (Dr/Ec) 81 mg PO DAILY Qty: 0 0RF lisinopril 2.5 mg Tablet 2.5 mg PO DAILY Qty: 0 0RF Protocol: Hold for SBP< HOLD for SBP < : 90 acetaminophen 325 mg Tablet 650 mg PO Q6H PRN (Reason: Headache/Pain Mild Scale (1-3)) Qty: 0 0RF paroxetine HCl 10 mg Tablet 10 mg PO DAILY Qty: 0 0RF naproxen 500 mg Tablet 500 mg PO BID PRN (Reason: Pain, Moderate (Pain Scale 4-6) Qty: 0 0RF hydroxyzine HCl 25 mg Tablet 25 mg PO BEDTIME PRN (Reason: Anxiety) Qty: 0 0RF levothyroxine 75 mcg Tablet 75 mcg PO DAILY@0630 Qty: 0 0RF metformin 500 mg Tablet 500 mg PO BIDWM 30 Days Qty: 60 0RF lidocaine [Lidocaine Pain Relief] 4 % Adhesive Patch,Medicated 1 patch transdermal DAILY 30 Days Qty: 30 0RF Protocol: Apply to: Apply to: left lower back albuterol sulfate 90 mcg/actuation Hfa Aerosol Inhaler 2 puff inhalation RQ4H PRN (Reason: Shortness Of Breath) 30 Days Qty: 1 0RF metoprolol succinate 100 mg Tablet Extended Release 24 Hr 100 mg PO DAILY Qty: 0 0RF Protocol: Hold for SBP/HR < HOLD for SBP < : 90 HOLD for HR < : 60 olanzapine 2.5 mg Tablet 2.5 mg PO DAILY Qty: 0 0RF olanzapine 2.5 mg Tablet 2.5 mg PO DAILY PRN (Reason: anxiety somatic preoccupation ) Qty: 0 0RF trazodone 100 mg Tablet 100 mg PO BEDTIME Qty: 0 0RF gabapentin 300 mg Capsule 300 mg PO DAILY PRN (Reason: anxiety) Qty: 0 0RF gabapentin 300 mg Capsule 300 mg PO BID Qty: 0 0RF melatonin 3 mg Tablet 6 mg PO BEDTIME Qty: 0 0RF gabapentin 300 mg capsule 300 mg PO BID 30 Days Qty: 60 0RF Discontinued paroxetine HCl 10 mg tablet 1 tab PO DAILY isosorbide mononitrate 30 mg tablet extended release 24 hr 1 tab PO DAILY olanzapine 2.5 mg tablet 2.5 mg PO BID aspirin 81 mg tablet,delayed release (DR/EC) 1 tab PO DAILY levothyroxine 75 mcg tablet 1 tab PO DAILY trazodone 100 mg tablet 1 tab PO BEDTIME lisinopril 2.5 mg tablet 1 tab PO DAILY naproxen 500 mg tablet 1 tab PO BID PRN (Reason: Pain) cyclobenzaprine 5 mg tablet 1 tab PO DAILY melatonin 5 mg tablet 1 tab PO BEDTIME Discharge Orders: Discharge Order (Routine); Ordered 09/28/21 Ordered By: Hema Zeng Diet: advance to usual diet Activity on Discharge: As tolerated Stand Alone Forms: Patient Portal Discharge page, Community Support Care Plan Goals: remain safe and stable in outapatient treatment setting Health Concerns: chest pain chronic medical problems Plan of Treatment: take medications as prescribed, attend appointments as scheduled Assessment: not at imminent risk of harm to self or others
[2021-09-28 12:12] VITALS: BP 102/52; BP 109/72; PULSE 91; PULSE 92
== END 2021-09-28 13:09 | disposition home or self-care (01) | DRG 881 ==
LOC: HO.ED 14:49 → HO.PADLT16 09-22 00:08
PROVIDERS: Family Medicine; Physician Assistant; Registered Nurse; Admitting Provider Psychiatry & Neurology Psychiatry; Emergency Provider Emergency Medicine; PCP Internal Medicine; Visit Provider Psychiatry & Neurology Psychiatry
DX: F32.9 Major depressive disorder, single episode, unspecified (principal); R45.851 Suicidal ideations; I10 Essential (primary) hypertension; E78.5 Hyperlipidemia, unspecified; F41.9 Anxiety disorder, unspecified; R62.50 Unspecified lack of expected normal physiological development in childhood; Z20.822 Contact with and (suspected) exposure to COVID-19; I48.0 Paroxysmal atrial fibrillation; E03.9 Hypothyroidism, unspecified; D69.59 Other secondary thrombocytopenia; Z87.891 Personal history of nicotine dependence; E66.9 Obesity, unspecified; G47.33 Obstructive sleep apnea (adult) (pediatric); I45.10 Unspecified right bundle-branch block; G40.909 Epilepsy, unspecified, not intractable, without status epilepticus; F10.10 Alcohol abuse, uncomplicated; Z91.52 Personal history of nonsuicidal self-harm; Z68.36 Body mass index [BMI] 36.0-36.9, adult; Z95.810 Presence of automatic (implantable) cardiac defibrillator; Z88.8 Allergy status to other drugs, medicaments and biological substances; Z79.82 Long term (current) use of aspirin; Z79.84 Long term (current) use of oral hypoglycemic drugs; Z79.890 Hormone replacement therapy; Z79.899 Other long term (current) drug therapy
CPT/HCPCS: 36415; 71045; 71046; 74176; 80053; 80061; 80307; 81003; 82947; 83735; 83880; 84484; 85025; 87502; 87635; 87651; 93005; 94640; 94660; 99285

== ENCOUNTER 2021-10-23 13:49 | Emergency (ER) | payer OTHER, SELFPAY ==
--- NOTE | ~2021-10-23 | XR_ITS ---
EXAMINATION: XR CHEST CLINICAL INFORMATION: Cough COMPARISON: 09/22/2021 TECHNIQUE: Frontal view of the chest was obtained. FINDINGS: A ICD in place unchanged. No significant abnormality is noted involving the heart, lungs, mediastinum, bony thorax or soft tissues. XR/XR chest 1V IMPRESSION: Unremarkable examination.
--- NOTE | ~2021-10-23 | CT_ITS ---
EXAM: CT scan of the head and cervical spine. INDICATION: Reason for Exam Pain, fall TECHNIQUE: A noncontrast CT scan was performed from the skull base to the vertex. A noncontrast CT scan of the cervical spine was performed from the base of the skull through T1 at 2.5 mm and 1.25 mm collimation. Coronal and sagittal reformats were obtained at the acquisition workstation. This CT examination was performed using dose optimization techniques as appropriate, variously including the following: *Automated exposure control *Adjustment of mA and/or kV according to patient size (this includes techniques or standardized protocols for targeted exams where dose is matched to indication/reason for exam; i.e. extremities or head) *Use of iterative reconstruction technique DLP: 673 and 753 mGy-cm COMPARISON: Baseline 05/13/2021 FINDINGS: Head: High density focus left periatrial location similar to baseline favoring calcification. There is no evidence of acute intracranial hemorrhage or territorial infarction. Warner-white matter differentiation is preserved. No abnormal mass effect or midline shift. No extra-axial fluid collections. No abnormal attenuation is demonstrated within the brain parenchyma. Scattered periventricular and deep white matter hypodensities consistent with microangiopathy. The ventricles and sulcal spaces are proportional without hydrocephalus. Proportional prominence of the ventricles and sulcal spaces. No acute osseous or soft tissue abnormalities. The mastoid air cells and visualized portions of the paranasal sinuses are well aerated. Cervical Spine: Bulky spurring anteriorly noted once again. No definite deformity. Dystrophic ossification posteriorly possibly involving the nuchal ligament mid cervical spine. The atlantooccipital and atlantoaxial articulations remain well aligned. Straightening of the normal cervical lordosis. Otherwise, there is anatomic alignment of the vertebral bodies and posterior elements. No evidence of acute fracture or subluxation.There is no prevertebral soft tissue swelling. The thyroid gland and remaining cervical soft tissues are normal in appearance. The lung apices demonstrate no abnormalities. CT/CT cervical spine wo con IMPRESSION: No acute intracranial pathology. Chronic finding stable. No acute fracture subluxation cervical spine.
--- NOTE | 2021-10-23 13:58 | ECG_ITS ---
Test Reason : CHEST PAIN Blood Pressure : / mmHG Vent. Rate : 087 BPM Atrial Rate : 087 BPM P-R Int : 228 ms QRS Dur : 170 ms QT Int : 432 ms P-R-T Axes : 067 117 037 degrees QTc Int : 519 ms Sinus rhythm with 1st degree A-V block Right bundle branch block Left posterior fascicular block Abnormal ECG When compared with ECG of 27-SEP-2021 20:39, AR interval has increased Referred By: Franny Gonzalez Electronically Signed By:Bryan Juarez
[2021-10-23 14:01] VITALS: BP 162/79; PULSE 97; RESP 20; TEMP 36.6; O2SAT 97; BMI 35.4
--- NOTE | 2021-10-23 14:31 | ED.GENADULT ---
HPI - General Adult General Chief complaint: General Medical Stated complaint: dfib went off Time Seen by Provider: 10/23/21 13:58 Source: patient Mode of arrival: EMS History of Present Illness HPI narrative: 61-year-old male brought in by EMS after patient states [place], felt his defibrillator ?go off? and states that it felt like someone punching him in the chest. The firing of his defibrillator patient reports resulted in him falling backwards and striking his head. He denies any loss of consciousness denies any prodrome all symptoms such as dizziness or palpitations and states that the pain did and does radiate down his left arm and worsens with deep inspiration. Patient states that this is happen before and that each time he has been told that the defibrillator did not fire. Patient reports nausea. Related Data Previous Rx's Medication Instructions Recorded acetaminophen 325 mg tablet 650 mg PO Q6H PRN Headache/Pain 09/22/21 Mild Scale (1-3) #0 tabs aspirin 81 mg tablet,delayed 81 mg PO DAILY #0 tabs 09/22/21 release hydroxyzine HCl 25 mg tablet 25 mg PO BEDTIME PRN Anxiety #0 09/22/21 tabs isosorbide mononitrate 30 mg 30 mg PO DAILY #0 tabs 09/22/21 tablet,extended release 24 hr levothyroxine 75 mcg tablet 75 mcg PO DAILY@0630 #0 tabs 09/22/21 lisinopril 2.5 mg tablet 2.5 mg PO DAILY #0 tabs 09/22/21 naproxen 500 mg tablet 500 mg PO BID PRN Pain, Moderate 09/22/21 (Pain Scale 4-6 #0 tabs paroxetine HCl 10 mg tablet 10 mg PO DAILY #0 tabs 09/22/21 albuterol sulfate 90 mcg/actuation 2 puff inhalation RQ4H PRN 09/28/21 aerosol inhaler Shortness Of Breath 30 days #1 inhaler gabapentin 300 mg capsule 300 mg PO BID #0 caps 09/28/21 gabapentin 300 mg capsule 300 mg PO BID 30 days #60 caps 09/28/21 gabapentin 300 mg capsule 300 mg PO DAILY PRN anxiety #0 caps 09/28/21 lidocaine 4 % topical patch 1 patch transdermal DAILY 30 days 09/28/21 (Lidocaine Pain Relief) #30 ea melatonin 3 mg tablet 6 mg PO BEDTIME #0 tabs 09/28/21 metformin 500 mg tablet 500 mg PO BIDWM 30 days #60 tabs 09/28/21 metoprolol succinate 100 mg 100 mg PO DAILY #0 tabs 09/28/21 tablet,extended release 24 hr olanzapine 2.5 mg tablet 2.5 mg PO DAILY #0 tabs 09/28/21 olanzapine 2.5 mg tablet 2.5 mg PO DAILY PRN anxiety 09/28/21 somatic preoccupation #0 tabs trazodone 100 mg tablet 100 mg PO BEDTIME #0 tabs 09/28/21 Allergies Allergy/AdvReac Type Severity Reaction Status Date / Time aripiprazole [From Abilify] Allergy Severe Rash Verified 09/22/21 02:28 peas Allergy Severe HIVES Verified 09/22/21 02:25 bee pollen [bee stings] AdvReac Severe Anaphylaxis Verified 09/22/21 02:29 lipitor Allergy Severe hives, Uncoded 09/22/21 02:26 rash, difficulty breathing Review of Systems Review of Systems: Pertinent positives and negatives as stated in HPI and 10 point review of systems is otherwise negative. [facility] Past Medical History Source: nursing notes reviewed Medical History Anxiety Artificial cardiac pacemaker Asthma Cardiac defibrillator in place COPD (chronic obstructive pulmonary disease) Depression Developmental delay, mild Diabetes GERD (gastroesophageal reflux disease) History of ETOH abuse Hyperlipidemia Hypertension Hyperthyroidism RBBB Seizure Sleep apnea Surgical History History of cardiac cath Social History Social History Household Members: Other Housing: Other Housing Other:: Sober House Do you presently have visiting nurse or other home services: No Alcohol intake: former Patient Tobacco Use Status: Former Tobacco user Quit Date: 30 years Tobacco use type: Cigarette Second Hand Smoke Exposure: No Substance Use Type: Former Substance User, Prescription Drugs and Caffiene Advance Directives: Yes Advance Directives Information Provided: Yes Advance Directives on File: No service: No Current occupational status: disabled Sexual orientation: Did not discuss. Physical Exam ED Vital Signs: Vital Signs - 24 hr 10/23/21 14:01 Temperature 97.8 F Pulse Rate 97 Respiratory Rate 20 Blood Pressure 162/79 H Pulse Oximetry 97 Oxygen Delivery Method Room Air BMI result Body Mass Index 35.4 VITAL SIGNS: Reviewed. GENERAL: Well developed, well nourished, in no acute distress. HEAD: Normocephalic/atraumatic EYES: PERRLA, EOMI EARS: Ext canals without abnormality OROPHARYNX: no oral lesions noted, posterior pharynx clear LUNGS: Normal breath sounds. No adventitious sounds or accessory muscle use. SpO2<97> CARDIOVASCULAR: Regular rate and rhythm without noted murmurs, no JVD or lower extremity edema. ABDOMEN: Soft, non-tender, non-distended with bowel sounds. MUSCULOSKELETAL: No tenderness, deformities, or effusions noted on gross inspection. EXTREMITIES: No cyanosis, clubbing or edema. SKIN: Inspection of the skin reveals no rashes NEUROLOGIC: Alert and oriented x 4. Strength and sensation to light touch were grossly intact x 4. Course Course Course Narrative: 61-year-old male with history and clinical presentation concerning for possible cardiac etiology although possibility of seizure related. Review of all investigations without acute findings when compared to baseline. EKG without acute changes and case was discussed with the geometry professor who recommends interrogation and this was completed. Follow up PO challenge and then d/c home. Reevaluation(s) Reevaluation #1: Called [employer] rep for interrogation. Time: 16:36 Reevaluation #2: Will send infor to Rep, she did call back. Time: 16:45 Medical Decision Making Lab Data Result diagrams: 10/23/21 14:55 10/23/21 14:55 Labs: Lab Results 10/23/21 10/23/21 10/23/21 Range/Units 14:49 14:55 14:55 WBC 7.2 (4.8-10.8) X10*3/uL RBC 4.15 L (4.60-5.80) X10*6/uL Hgb 12.5 L (14.0-18.0) g/dl Hct 37.4 L (42.0-52.0) % MCV 90.1 (80.0-98.0) fL MCH 30.1 (27.0-33.0) pg MCHC 33.4 (31.0-36.0) g/dl RDW 13.0 (11.0-16.0) % Plt Count 90 L (160-400) X10*3/uL MPV 11.4 (9.4-12.4) fL Immature Gran % (Auto) 0.8 H (0.0-0.4) % Neut % (Auto) 74.6 H (45-73) % Lymph % (Auto) 13.3 L (20-40) % Elmore % (Auto) 7.3 (2-11) % Eos % (Auto) 3.0 (0-4) % Baso % (Auto) 1.0 (0-2) % Lymph # (Auto) 1.0 L (1.2-4.9) X10*3/uL Elmore # (Auto) 0.5 (0.1-1.2) X10*3/uL Eos # (Auto) 0.2 (0.0-0.4) X10*3/uL Baso # (Auto) 0.1 (0.0-0.2) X10*3/uL Abs Immat Gran (auto) 0.06 H (0.00-0.03) X10*3/uL Absolute Neuts (auto) 5.4 (2.0-8.3) x10*3/uL Absolute Nucleated RBC 0.000 (0.0-0.012) X10*3/uL Nucleated RBC % (auto) 0.0 (0.0-0.2) /100WBC Smear Tech's Comments VERIFIED PT 13.2 H (10.0-13.1) SEC INR 1.1 (0.9-1.1) VBG pH (7.32-7.43) VBG pCO2 mmHg VBG pO2 mmHg VBG HCO3 (22-26) mmol/L VBG O2 Saturation % VBG Base Excess mmol/L Sodium (135-145) mmol/L Potassium (3.3-5.1) mmol/L Chloride (96-108) mmol/L Carbon Dioxide (22-29) mmol/L Anion Gap (12-20) BUN (9-16) mg/dL Creatinine (0.5-1.4) mg/dL Estim Creat Clear Calc Estimated GFR Random Glucose (60-115) mg/dL Calcium (8.4-10.2) mg/dL Magnesium (1.6-2.6) mg/dL Total Bilirubin (0.0-1.0) mg/dL AST (5-37) U/L ALT (0-40) U/L Alkaline Phosphatase (39-117) U/L Troponin I High Sens (<3.5-35.0) ng/L Total Protein (6.5-8.0) g/dL Albumin (3.5-5.0) g/dL COVID-19 (CONG) Negative (Negative) COVID-19 Clin Com See Note 10/23/21 10/23/21 10/23/21 Range/Units 14:55 14:55 15:05 WBC (4.8-10.8) X10*3/uL RBC (4.60-5.80) X10*6/uL Hgb (14.0-18.0) g/dl Hct (42.0-52.0) % MCV (80.0-98.0) fL MCH (27.0-33.0) pg MCHC (31.0-36.0) g/dl RDW (11.0-16.0) % Plt Count (160-400) X10*3/uL MPV (9.4-12.4) fL Immature Gran % (Auto) (0.0-0.4) % Neut % (Auto) (45-73) % Lymph % (Auto) (20-40) % Elmore % (Auto) (2-11) % Eos % (Auto) (0-4) % Baso % (Auto) (0-2) % Lymph # (Auto) (1.2-4.9) X10*3/uL Elmore # (Auto) (0.1-1.2) X10*3/uL Eos # (Auto) (0.0-0.4) X10*3/uL Baso # (Auto) (0.0-0.2) X10*3/uL Abs Immat Gran (auto) (0.00-0.03) X10*3/uL Absolute Neuts (auto) (2.0-8.3) x10*3/uL Absolute Nucleated RBC (0.0-0.012) X10*3/uL Nucleated RBC % (auto) (0.0-0.2) /100WBC Smear Tech's Comments PT (10.0-13.1) SEC INR (0.9-1.1) VBG pH 7.44 H (7.32-7.43) VBG pCO2 32 mmHg VBG pO2 67 mmHg VBG HCO3 22 (22-26) mmol/L VBG O2 Saturation 93.0 % VBG Base Excess -1.0 mmol/L Sodium 141 (135-145) mmol/L Potassium 3.9 D (3.3-5.1) mmol/L Chloride 109 H (96-108) mmol/L Carbon Dioxide 25 (22-29) mmol/L Anion Gap 11 L (12-20) BUN 14 (9-16) mg/dL Creatinine 1.20 (0.5-1.4) mg/dL Estim Creat Clear Calc 80.5 Estimated GFR > 60 Random Glucose 183 H (60-115) mg/dL Calcium 7.8 L D (8.4-10.2) mg/dL Magnesium 1.8 (1.6-2.6) mg/dL Total Bilirubin 0.8 (0.0-1.0) mg/dL AST 14 (5-37) U/L ALT 15 (0-40) U/L Alkaline Phosphatase 74 (39-117) U/L Troponin I High Sens 5.7 (<3.5-35.0) ng/L Total Protein 6.1 L (6.5-8.0) g/dL Albumin 3.7 (3.5-5.0) g/dL COVID-19 (CONG) (Negative) COVID-19 Clin Com ECG Data Attestation: I personally reviewed and interpreted this ECG as follows: Prior ECG tracings: available for review Interpretation: Sinus rhythm with first-degree AV block (this is new when compared to prior), HR-87, RBBB, no STEMI, Discharge Plan Discharge Clinical Impression: Fall, Encounter for interrogation of cardiac defibrillator Patient Disposition: Home, Self-Care Instructions: Fall Prevention for Older Adults (ED), Implantable Cardioverter Defibrillator (DC) Additional Instructions: 1. Resume all home medications as prescribed. 2. Follow-up with your geometry professor and primary care provider by calling their office is on Monday morning and setting up an appointment for re-evaluation. Return to the ER for worsening symptoms. Prescriptions: No Action isosorbide mononitrate 30 mg Tablet Extended Release 24 Hr 30 mg PO DAILY Qty: 0 0RF Protocol: Hold for SBP< HOLD for SBP < : 90 aspirin 81 mg Tablet,Delayed Release (Dr/Ec) 81 mg PO DAILY Qty: 0 0RF lisinopril 2.5 mg Tablet 2.5 mg PO DAILY Qty: 0 0RF Protocol: Hold for SBP< HOLD for SBP < : 90 acetaminophen 325 mg Tablet 650 mg PO Q6H PRN (Reason: Headache/Pain Mild Scale (1-3)) Qty: 0 0RF paroxetine HCl 10 mg Tablet 10 mg PO DAILY Qty: 0 0RF naproxen 500 mg Tablet 500 mg PO BID PRN (Reason: Pain, Moderate (Pain Scale 4-6) Qty: 0 0RF hydroxyzine HCl 25 mg Tablet 25 mg PO BEDTIME PRN (Reason: Anxiety) Qty: 0 0RF levothyroxine 75 mcg Tablet 75 mcg PO DAILY@0630 Qty: 0 0RF metformin 500 mg Tablet 500 mg PO BIDWM 30 Days Qty: 60 0RF lidocaine [Lidocaine Pain Relief] 4 % Adhesive Patch,Medicated 1 patch transdermal DAILY 30 Days Qty: 30 0RF Protocol: Apply to: Apply to: left lower back albuterol sulfate 90 mcg/actuation Hfa Aerosol Inhaler 2 puff inhalation RQ4H PRN (Reason: Shortness Of Breath) 30 Days Qty: 1 0RF metoprolol succinate 100 mg Tablet Extended Release 24 Hr 100 mg PO DAILY Qty: 0 0RF Protocol: Hold for SBP/HR < HOLD for SBP < : 90 HOLD for HR < : 60 olanzapine 2.5 mg Tablet 2.5 mg PO DAILY Qty: 0 0RF olanzapine 2.5 mg Tablet 2.5 mg PO DAILY PRN (Reason: anxiety somatic preoccupation ) Qty: 0 0RF trazodone 100 mg Tablet 100 mg PO BEDTIME Qty: 0 0RF gabapentin 300 mg Capsule 300 mg PO DAILY PRN (Reason: anxiety) Qty: 0 0RF gabapentin 300 mg Capsule 300 mg PO BID Qty: 0 0RF melatonin 3 mg Tablet 6 mg PO BEDTIME Qty: 0 0RF gabapentin 300 mg capsule 300 mg PO BID 30 Days Qty: 60 0RF
[2021-10-23 15:04] LABS: Mean Corpuscular Volume 90.1 fL (80.0-98.0); PLT CLUMP 1; SCAN SMEAR FLAG 1
[2021-10-23 15:05] LABS: Basophils Absolute Auto 0.1 X10*3/uL (0.0-0.2); Eosinophils Absolute Auto 0.2 X10*3/uL (0.0-0.4); Hematocrit 37.4 % (42.0-52.0); Hemoglobin 12.5 g/dl (14.0-18.0); Imm Gran Abs Auto 0.06 X10*3/uL (0.00-0.03); Imm Gran Pct Auto 0.8 % (0.0-0.4); Lymphocytes Percent Auto 13.3 % (20-40); MANUAL DIFF FLAG SCAN; Mean Corpuscular HGB Conc 33.4 g/dl (31.0-36.0); Mean Corpuscular Hemoglobin 30.1 pg (27.0-33.0); Mean Platelet Volume 11.4 fL (9.4-12.4); Monocytes Absolute Auto 0.5 X10*3/uL (0.1-1.2); Monocytes Percent Auto 7.3 % (2-11); Neutrophils Absolute Auto 5.4 x10*3/uL (2.0-8.3); Neutrophils Percent Auto 74.6 % (45-73); Red Blood Count 4.15 X10*6/uL (4.60-5.80)
[2021-10-23 15:13] LABS: INTERNATIONAL NORM RATIO 1.1 (0.9-1.1); Prothrombin Time 13.2 SEC (10.0-13.1)
[2021-10-23 15:19] LABS: COVID-19 Test Negative (Negative); IDNOW Serial# 55D5AD1C
[2021-10-23 15:23] LABS: Platelet Count 90 X10*3/uL (160-400); SLIDE REVIEW VERIFIED; White Blood Count 7.2 X10*3/uL (4.8-10.8)
[2021-10-23 15:27] LABS: VBG HCO3 22 mmol/L (22-26); VBG pCO2 32 mmHg; VBG pH 7.44 (7.32-7.43); VBG pO2 67 mmHg
[2021-10-23 15:36] LABS: Alanine Aminotransferase 15 U/L (0-40); Albumin Level 3.7 g/dL (3.5-5.0); Alkaline Phosphatase 74 U/L (39-117); Anion Gap 11 (12-20); Aspartate Amino Transferase 14 U/L (5-37); Bilirubin Total 0.8 mg/dL (0.0-1.0); Blood Urea Nitrogen 14 mg/dL (9-16); Calcium 7.8 mg/dL (8.4-10.2); Carbon Dioxide 25 mmol/L (22-29); Chloride 109 mmol/L (96-108); Creatinine Clr Calc Pharmacy 80.5; Estimated Glomerular Filt Rate > 60; Glucose Random 183 mg/dL (60-115); Magnesium 1.8 mg/dL (1.6-2.6); Potassium 3.9 mmol/L (3.3-5.1); Sodium 141 mmol/L (135-145); Total Protein 6.1 g/dL (6.5-8.0)
[2021-10-23 15:40] LABS: Troponin-I High Sensitivity 5.7 ng/L (<3.5-35.0)
[2021-10-23] MEDS: Acetaminophen 325 MG TABLET 975 MG PO (16:48)
[2021-10-23 18:46] LABS: Venous Blood Gas Refer to POC result
[2021-10-23] MEDS: Magnesium Hydrox/Alum Hydrox 30 ML ORAL.SUSP PO (19:02)
== END 2021-10-23 19:27 | disposition home or self-care (01) ==
PROVIDERS: Emergency Provider Student in an Organized Health Care Education/Training Program
DX: Z45.02 Encounter for adjustment and management of automatic implantable cardiac defibrillator (principal); Z95.810 Presence of automatic (implantable) cardiac defibrillator; I44.0 Atrioventricular block, first degree; Z91.81 History of falling; Z20.822 Contact with and (suspected) exposure to COVID-19; E11.9 Type 2 diabetes mellitus without complications; I10 Essential (primary) hypertension; E78.5 Hyperlipidemia, unspecified; Z87.891 Personal history of nicotine dependence; Z79.82 Long term (current) use of aspirin; Z79.899 Other long term (current) drug therapy; Z79.84 Long term (current) use of oral hypoglycemic drugs
CPT/HCPCS: 36415; 70450; 71045; 72125; 80053; 82803; 83735; 84484; 85025; 85610; 87635; 93005; 99283; 99284

== ENCOUNTER 2022-04-07 13:14 | Emergency (ER) | payer OTHER, SELFPAY ==
--- NOTE | 2022-04-07 | ECG_ITS ---
Test Reason : chest pain Blood Pressure : / mmHG Vent. Rate : 093 BPM Atrial Rate : 093 BPM P-R Int : 204 ms QRS Dur : 166 ms QT Int : 410 ms P-R-T Axes : 058 114 043 degrees QTc Int : 509 ms Sinus rhythm with Premature atrial complexes with Aberrant conduction Right bundle branch block Abnormal ECG When compared with ECG of 23-OCT-2021 15:19, No significant changes seen Referred By: Generic ED Physician Electronically Signed By:PEPE CABALLERO
--- NOTE | ~2022-04-07 | CT_ITS ---
EXAMINATION: CT ANGIOGRAM OF THE CHEST WITH AND WITHOUT CONTRAST (CT PULMONARY ANGIOGRAM FOR PE) CLINICAL INFORMATION: Reason for Exam cp with pain radiating to back and shoulder COMPARISON: 05/08/2017 TECHNIQUE: Prior to contrast administration, noncontrast localization images were obtained. Subsequently, multidetector volumetric imaging was performed from the thoracic inlet to below the diaphragms following the administration of 80 mL Omnipaque 350 intravenous contrast. No contrast reaction reported Sagittal, coronal, and MIP oblique sagittal reformatted images were obtained on the CT workstation, uploaded to PACS, and reviewed. This CT examination was performed using dose optimization techniques as appropriate, variously including the following: *Automated exposure control *Adjustment of mA and/or kV according to patient size (this includes techniques or standardized protocols for targeted exams where dose is matched to indication/reason for exam; i.e. extremities or head) *Use of iterative reconstruction technique Total exam dose-length product 410 mGy-cm FINDINGS: QUALITY OF STUDY/CONTRAST BOLUS: Satisfactory. PULMONARY ARTERIES: No central or segmental pulmonary emboli. THORACIC AORTA: No aneurysm or dissection. LUNG: No focal consolidation, nodules or masses. PLEURA: No pleural effusion or pneumothorax. MEDIASTINUM: Cardiomegaly. No pericardial effusion. No significant mediastinal or hilar adenopathy. No evidence of septal bowing or right heart strain. CORONARY ARTERY CALCIFICATION: None visualized on this study. CHEST WALL/AXILLA: No axillary or internal mammary adenopathy. A left chest wall cardiac device is again noted. OSSEOUS STRUCTURES: No acute or suspicious osseous abnormality. UPPER ABDOMEN: Unremarkable. No reflux of contrast into the hepatic veins to suggest elevated right heart pressures. CT/CT angio chest PE protocol IMPRESSION: 1. No acute pulmonary embolus. 2. Cardiomegaly VTE: negative
--- OUTSIDE RECORDS SUMMARY | 2022-04-07 13:25 | XMS_ITS | Continuity of Care Document ---
:1960 Author Organization [facility] Address [address] [place] [address] Support Name Relationship Address Phone Pcp-None, Primary Care Provider Unavailable Unavailabl e Pcp-None, Family Provider Unavailable Unavailable Alissa Limon Emergency Provider [address] [facility] [phone] Semc - Mmr [address] [place] [address] Gurjit Solomon Admit Provider [address] [facility] Ccp [address] [place] [address] Gurjit Solomon Attending Provider [address] [place] [address] Ccp [address] [place] [address] Allergies, Adverse Reactions, Alerts Allergen Type Severity Reaction Last Updated Verified Status atorvastatin Allergy Unknown Hives June 30, 2019 Y Ac tive peas Allergy Unknown Hives (Green Peas) June 30, 2019 Y Active Medications Active Medications Medication Dose Units Route Sig Start Date Status Amlodipine [Norvasc] 2.5 MG PO DAILY April 032018 Active Aspirin [Aspir 81] 81 MG PO DAILY April 21, 2018 Active Levothyroxine Sodium 75 MCG PO 0600 April 032018 Active Sotalol Hcl [Sorine] 80 MG PO TWICE A DAY April 21, 2018 Active Lisinopril [Zestril] 5 MG PO DAILY June 30, 2019 Active Discontinued Medications Medication Dose Units Route Sig Start Date Discontinued Statu s Date Acetaminophen 650 MG PO EVERY 6 AprilJune 30, 2019 Dis continued HOURS PRN 2018 For Pain Albuterol Sulfate 2 PUFF INH EVERY 4 AprilJune 30, 2019 Discontinued [Proventil Hfa] HOURS PRN 2018 For Shortness Of Breath Cyclobenzaprine 5 MG PO THREE TIMES AprilJune 29 20 Discontinued Hcl A DAY PRN 2018 For Muscle Spasm Febuxostat 80 MG PO DAILY AprilJune 30, 2019 Discon tinued [Uloric] 2018 Fluticasone 50 Mcg 1 PUFF INH DAILY AprilApril 21 iscontinued Disk [Flovent 50 2018 Mcg Diskus] Lorazepam [Ativan] 0.5 MG PO DAILY PRN AprilJune 29 020 Discontinued For Anxiety 2018 Metformin 500 MG PO TWICE A DAY AprilJune 30, 2019 Dis continued [Glucophage] WITH MEALS 2018 Montelukast Sodium 10 MG PO ONCE DAILY AprilJune 30, 2019 Discontinued [Singulair] AT BEDTIME 2018 Omeprazole 20 MG PO DAILY AprilJune 30, 2019 Discon tinued [Prilosec] 2018 Trazodone HCl 50 MG PO ONCE DAILY AprilJune 30, 2019 Discontinued AT BEDTIME 2018 Fluticasone 50 Mcg 1 SPRAY NASAL TWICE A DAY AprilJune 30, 2019 Discontinued Nasal [Flonase] 2018 Problem List Active Problems Medical Problem Onset Date Status Obstructive sleep apnea Active Sleep apnea Active Diabetes Active Alcohol abuse Active Essential hypertension Active Type 2 diabetes mellitus Active Dyslipidemia Active Mood disorder Active Afib Active Depression Active Hypothyroidism Active 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 Mixed hyperlipidemia Active Atypical chest pain Active QT prolongation Active Seizure Active Tetralogy of Fallot Active Chest pain, rule out acute myocardial infarction Active Bipolar 1 disorder Active Paroxysmal atrial fibrillation Active 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 Ref. Range Result Comment Add-On Test Request June 30, 2019 Added test 7:50am White Blood Count June 30, 2019 8.7 X10 3/uL 4.5-11.0 2:06am Red Blood Count June 30, 2019 4.78 X10 4.00-5.50 2:06am 6/uL Hemoglobin June 30, 2019 12.5 g/dl 12.0-17.0 2:06am Hematocrit June 30, 2019 40.1 % 35.0-50.0 2:06am Mean Corpuscular Volume June 30, 2019 83.9 fl 80.0-100 .0 2:06am Mean Corpuscular June 30, 2019 26.2 pg Low 27.0-34.0 Hemoglobin 2:06am Mean Corpuscular June 30, 2019 31.2 g/dl 31.0-36.0 Hemoglobin Concent 2:06am Red Cell Distribution June 30, 2019 13.8 % 11.5-15.0 Width 2:06am Platelet Count June 30, 2019 127 X10 3/uL Low 150-400 2:06am Immature Granulocyte % June 30, 2019 1.3 % (Auto) 2:06am Neutrophils (%) (Auto) June 30, 2019 61.7 % 2:06am Lymphocytes (%) (Auto) June 30, 2019 20.1 % 2:06am Monocytes (%) (Auto) June 30, 2019 9.0 % 2:06am Eosinophils (%) (Auto) June 30, 2019 6.4 % 2:06am Basophils (%) (Auto) June 30, 2019 1.5 % 2:06am Immature Granulocyte # June 30, 2019 0.11 X10 High 0.00-0.09 (Auto) 2:06am 3/uL Neutrophils # (Auto) June 30, 2019 5.4 X10 3/uL 1.5-7.8 2:06am Lymphocytes # (Auto) June 30, 2019 1.8 X10 3/uL 1.0-4.8 2:06am Monocytes # (Auto) June 30, 2019 0.8 X10 3/uL 0.0-0.8 2:06am Eosinophils # (Auto) June 30, 2019 0.6 X10 3/uL High 0.0-0.5 2:06am Basophils # (Auto) June 30, 2019 0.1 X10 3/uL 0.0-0.2 2:06am Hemoglobin A1c June 30, 2019 6.5 High 4.3-5.9 2:06am Estimated Average June 30, 2019 140 mg/dl Glucose (eAG) 2:06am Nucleated Red Blood June 30, 2019 0.0 /100 WBC 0.0-0.0 Cells % 2:06am Sodium Level June 30, 2019 136 mmol/L Low 137-146 2:06am Potassium Level June 30, 2019 4.4 mmol/L 3.5-5.3 2:06am Chloride Level June 30, 2019 99 mmol/L 98-107 2:06am Carbon Dioxide Level June 30, 2019 23 mmol/L 23-32 2:06am Anion Gap June 30, 2019 14 mmol/L 5-15 2:06am Blood Urea Nitrogen June 30, 2019 22 mg/dl 5-25 2:06am Creatinine June 30, 2019 1.3 mg/dL 0.6-1.4 2:06am Estimated Creatinine June 30, 2019 74.6 ml/min This value is Clearance 2:06am calculated by Cockcroft Suraj t Equation using ideal body weight. This result is dependent on a n accurate patie nt height and weight which i s obtained from patients medic al record." Cockcroft, D.W . and M.H. Gault . Prediction of creatinine clearance from serum creatinine. Nephron. 1976. 16(1):31-41. Estimated GFR ( June 30, 2019 > 60 60- Guatemalan) 2:06am Estimated GFR June 30, 2019 > 60 60- (Non- 2:06am BUN/Creatinine Ratio June 30, 2019 16.9 10.0-20.0 2:06am Glucose Level June 30, 2019 172 mg/dL High 70-100 2:06am Calcium Level June 30, 2019 8.4 mg/dl Low 8.6-10.3 2:06am Phosphorus Level June 30, 2019 4.1 mg/dL 2.5-4.5 2:06am Magnesium Level June 30, 2019 1.8 mg/dL 1.8-2.5 2:06am Total Bilirubin June 30, 2019 0.3 mg/dl 2:06am Direct Bilirubin June 30, 2019 < 0.2 mg/dl 2:06am Aspartate Amino Transf June 30, 2019 16 U/L 15-41 (AST/SGOT) 2:06am Alanine June 30, 2019 14 U/L 14-63 Aminotransferase 2:06am (ALT/SGPT) Creatine Kinase MB June 30, 2019 2.0 ng/ml 0.0-6.0 9:50am Troponin T June 30, 2019 < 0.01 ng/ml 9:50am Total Protein June 30, 2019 7.0 g/dL 6.4-8.3 2:06am Albumin June 30, 2019 4.1 g/dl 4.0-5.0 2:06am Albumin/Globulin Ratio June 30, 2019 1.4 1.0-2.6 2:06am Triglycerides Level June 30, 2019 134 mg/dL < =150 mg/dL = 2:06am Desirable Cholesterol Level June 30, 2019 177 mg/dl <20 0 mg/dL = 2:06am Desirable LDL Cholesterol, June 30, 2019 99 mg/dl Calculated 2:06am HDL Cholesterol June 30, 2019 51 mg/dL 40- < 40 mg/dl: Low HDL- cholesterol(major risk factor for CHD) 2:06am >/= 60 mg/dl: High HDL-cholesterol(negative risk factor for CHD) HDL-cholestero l is affected by a number of factors, e.g., smoking, excercise, hormones, sex and age. Cholesterol Ratio June 30, 2019 1.9 LDL /HDL Interpretation: (LDL/HDL) 2:06am Ratio Men Wome n 1/2 Average 1. 00 1.47 Average 3.55 3 .22 2X Average 6.2 5 5.03 3X Average 7.9 9 6.14 Cholesterol/HDL Ratio June 30, 2019 3.5 Cholesterol/HDL Interpretation: 2:06am Ratio Men Wom en 1/2 Average 3 .43 3.27 Average 4.97 4.44 2X Average 9. 55 7.05 3X Average 23 .39 11.04 Alkaline Phosphatase June 30, 2019 81 U/L 40-129 2:06am Advance Directives Advance Directive Response Recorded Date/Time Advance Directives No June 30, 2019 10:38 am Health Care Proxy Yes June 30, 2019 10:38 am Pt has Medical Orders for Life Sustaining Tx Form No April 21, 2018 12:53am (MOLST)? Chief Complaint and Reason for Visit Encounter Admit Date Chief Complaint Reason for Visit Discharged Inpatient June 30, 2019 CHEST PAIN R/O Chest pain, rule out acute myocardial infarction 5:59am DC,PACEMAKER FIRED X3 Mood disor ryder Pacemaker compli cations Hospital Discharge Instructions No known hospital discharge instructions. Hospital Discharge Medications Medication Dose Units Route Sig Qty Days Order Status Instru ctions Date Acetaminophen 650 MG PO EVERY 6 April Disconti nued HOURS PRN 2018 For Pain Albuterol 2 PUFF INH EVERY 4 April Discontinued Sulfate HOURS PRN 2018 For Shortness Of Breath Amlodipine 2.5 MG PO DAILY April Aspirin 81 MG PO DAILY April Cyclobenzaprine 5 MG PO THREE April Discont inued Hcl TIMES A 2018 DAY PRN For Muscle Spasm Febuxostat 80 MG PO DAILY Kathryn Discontinued 2018 Fluticasone 50 1 PUFF INH DAILY April Disconti nued Mcg Disk 2018 Levothyroxine 75 MCG PO 0600 April Active Sodium 2018 Lorazepam 0.5 MG PO DAILY PRN April Discontinu ed For 2018 Anxiety Metformin 500 MG PO TWICE A April Discontinued DAY WITH 2018 MEALS Montelukast 10 MG PO ONCE DAILY April Discont inued Sodium AT BEDTIME 2018 Omeprazole 20 MG PO DAILY April Discontinued 2018 Sotalol Hcl 80 MG PO TWICE A Kathryn Active DAY 2018 Trazodone HCl 50 MG PO ONCE DAILY April Disco ntinued AT BEDTIME 2018 Fluticasone 50 1 SPRAY NASAL TWICE A April Discont inued Mcg Nasal DAY 2018 Lisinopril 5 MG PO DAILY June Encounters Encounter Facility Location Admit/Visit Discharge/Departure Atte nding Date Date Provider Discharged [facility] 6 June 30, 2019 June 30, 2019 3:57pm [facility] 5:59am [facility] Discharged [address] [facility] 21April 21, [facility] 2:35[facility] José Encounter Diagnosis Onset Date Chest pain, rule out acute myocardial infarction Mood disorder Pacemaker complications Functional Status Query Response Date Recorded Comment Patient Behavior Appropriate June 30, 2019 11:50pm Cooperative Query Response Date Recorded Comment Assistive Devices None June 30, 2019 10:38am Immunizations No known immunizations. Payers Payer Name Policy Type Covered Covered Relationship Subscriber Sub scriber Constitution Party Constitution Party Id Id [facility] [id number] Self / Same As JOAQUÍN [id number] [facility] NO Patient NO Self Pay Personal Payment (Xie - No Insurance) Plan of Care Instructions Dear Mr. Barrientos, You presented to our hospital with chest pain. We have interrogated your device and you were not shocked. It did not show any arrhythmia to explain your symptoms. Elektrocardiogram of your heart and heart enzymes were also checked and they ruled out a heart attack. You will be discharged back to your resp ite. No changes were made to your medication regimen. You were also evaluated by psychiatry an d they do not believe you have any active suicidal ideation. They recommended that you be discharged back to the respite. Please continue taking all your medicati ons as before. You prefer to follow up with cardiology at [facility]. Please call [phone] or [phone] to make an appointment with cardiology at [facility], Dr. Kali Richardson or Dr. Mack Candelaria. We have left a voicemail for their office for this appo intment. Please follow up with your PCP in a week . It was a pleasure taking care of you! Social History Query Response Date Recorded Comment Lives With Other June 30, 2019 6:38am Query Response Start Date Stop Date Smoking Status Never smoker Vital Signs Vital Reading Result Reference Range Collection Date/ Time Height 1.75 m June 30, 2019 1 0:07am Weight 110.404 kg June 30, 2019 1 0:13am Temperature 97.8 F 97.6 F-99.6 F June 30, 2019 1 1:59am Pulse 78 BPM 60-90 June 30, 2019 1 1:59am Respiration 118 RPM 12-24 June 30, 2019 1 1:59am Pulse Oximetry 100 % 95-100 June 30, 2019 1 1:59am Blood Pressure Systolic 111 90-140 June 11:59am Blood Pressure Diastolic 68 60-90 June 022019 11:59am Body Mass Index 35.9 June 30, 2019 1 0:07am
--- OUTSIDE RECORDS SUMMARY | 2022-04-07 13:25 | XMS_ITS | Continuity of Care Document ---
:1960 Author Organization [facility] Address [address] [place] [address] Support Name Relationship Address Phone Pcp-None, Primary Care Provider Unavailable Unavailabl e Pcp-None, Family Provider Unavailable Unavailable Alissa Limon Emergency Provider [address] [facility] [phone] Semc - Mmr [address] [place] [address] Gurjit Solomon Admit Provider [address] [facility] [phone] Ccp [address] [place] [address] Gurjit Solomon Attending Provider [address] [place] [address] Ccp [address] [place] [address] Allergies, Adverse Reactions, Alerts Allergen Type Severity [...] ( June 30, 2019 > 60 60- Ecuadorean) 2:06am Estimated GFR June 30, 2019 > [...] pain, rule out acute myocardial infarction 5:59am [place],PACEMAKER FIRED X3 Mood disor ryder Pacemaker compli [...] Muscle Spasm Febuxostat 80 MG PO DAILY April Discontinued 2018 Fluticasone 50 1 PUFF INH [...] June 30, 2019 June 30, 2019 3:57pm [facility] 5:59am [facility] Discharged [address] April 21April 21, [facility] 1:03[facility] 2:35pm José Encounter Diagnosis Onset Date Chest pain, rule out acute myocardial infarction Mood disorder Pacemaker complications Functional Status Query Response Date Recorded Comment Patient Behavior Appropriate June 30, 2019 11:50pm Cooperative Query Response Date Recorded Comment Assistive Devices None June 30, 2019 10:38am Immunizations No known immunizations. Payers Payer Name Policy Type Covered Covered Relationship Subscriber Sub scriber Democrat Democrat Id Id [facility] Commercial JOAQUÍN [id number] Self / Same As JOAQUÍN [id number] [facility] NO Patient NO Self Pay Personal [...] prefer to follow up with cardiology at [facility]. Please call [phone] or [phone] to make an appointment with cardiology at [facility], Dr. Kali Richardson or Dr. Mack Candelaria. [...]
--- OUTSIDE RECORDS SUMMARY | 2022-04-07 13:25 | XMS_ITS | Continuity of Care Document ---
:1960 Author Organization [facility] Address [address] [place] [address] Support Name Relationship Address Phone Patricio Gayle Emergency Provider [facility] r Unavailable [address] [place] [address] Pcp-Renny, Primary Care Provider Unavailable Unavailabl e Allergies, Adverse Reactions, Alerts Allergen Type Severity Reaction Last Updated Verified Status atorvastatin Allergy Hives July 14, 2018 Y Ac tive peas Allergy Hives July 14, 2018 Y Activ e Medications No medication information available. Problem List Active Problems Medical Problem Onset Date Status Chest pain Active Procedures Procedure Date Status XR chest 2V July 14, 2018 active EKG ED Electrocardiogram July 14, 2018 active XR chest 1V portable July 11, 2018 completed Relevant Diagnostic Tests and/or Laboratory Data Laboratory Results Test Date/Time Result Interp. Ref. Range Result Comment White Blood Count July 14, 2018 7.3 X10 4.5-11.0 9:03pm 3/uL Red Blood Count July 14, 2018 4.10 X10 4.00-5.50 9:03pm 6/uL Hemoglobin July 14, 2018 11.3 g/dl Low 12.0-17.0 9:03pm Hematocrit July 14, 2018 35.6 % 35.0-50.0 9:03pm Mean Corpuscular July 14, 2018 86.8 fl 80.0-100.0 Volume 9:03pm Mean Corpuscular July 14, 2018 27.6 pg 27.0-34.0 Hemoglobin 9:03pm Mean Corpuscular July 14, 2018 31.7 g/dl 31.0-36.0 Hemoglobin Concent 9:03pm Red Cell Distribution July 14, 2018 13.5 % 11.5-15.0 Width 9:03pm Platelet Count July 14, 2018 116 X10 Low 150-400 9:03pm 3/uL Immature Granulocyte % July 14, 2018 1.9 % (Auto) 9:03pm Neutrophils (%) (Auto) July 14, 2018 64.4 % 9:03pm Lymphocytes (%) (Auto) July 14, 2018 17.7 % 9:03pm Monocytes (%) (Auto) July 14, 2018 8.5 % 9:03pm Eosinophils (%) (Auto) July 14, 2018 6.4 % 9:03pm Basophils (%) (Auto) July 14, 2018 1.1 % 9:03pm Immature Granulocyte # July 14, 2018 0.14 X10 High 0.00-0.09 (Auto) 9:03pm 3/uL Neutrophils # (Auto) July 14, 2018 4.7 X10 1.5-7.8 9:03pm 3/uL Lymphocytes # (Auto) July 14, 2018 1.3 X10 1.0-4.8 9:03pm 3/uL Monocytes # (Auto) July 14, 2018 0.6 X10 0.0-0.8 9:03pm 3/uL Eosinophils # (Auto) July 14, 2018 0.5 X10 0.0-0.5 9:03pm 3/uL Basophils # (Auto) July 14, 2018 0.1 X10 0.0-0.2 9:03pm 3/uL Nucleated Red Blood July 14, 2018 0.0 /100 0.0-0.0 Cells % 9:03pm WBC Prothrombin Time July 11, 2018 14.8 SEC High 11.7-14.7 9:35am Prothromb Time July 11, 2018 1.1 Sugges devendra INR targets for patients on Warfarin therapy. International Ratio 9:35am INDIC ATION TARGET INR -DVT or PE, At rial Fibrillation 2.0 to 3.0 -Valvular dise ase(varies depending on 2.0 to 3.0 or location of va lve, type of valve, and 2.5 to 3.5 risk factors). REFERENCE: The Seventh ACCP Conference on Antithrombotic and Thromblytic T herapy; evidence-based guidelines. Chest 2004; 1 26(Suppl); 163S-696S. Activated Partial July 11, 2018 28.3 Sec 22.3-35.9 Thromboplast Time 9:35am Sodium Level July 14, 2018 140 mmol/L 137-146 9:03pm Potassium Level July 14, 2018 4.7 mmol/L 3.5-5.3 9:03pm Chloride Level July 14, 2018 101 mmol/L 98-107 9:03pm Carbon Dioxide Level July 14, 2018 27 mmol/L 23-32 9:03pm Anion Gap July 14, 2018 12 mmol/L 5-15 9:03pm Blood Urea Nitrogen July 14, 2018 14 mg/dl -25 9:03pm Creatinine July 14, 2018 1.3 mg/dL 0.6-1.4 9:03pm Estimated Creatinine July 14, 2018 63.4 ml/min ???This value is Clearance 9:03pm calculated by Cockcroft Suraj t Equation using ideal body alexia ght. This result is dependent on a n accurate patie nt height and alexia ght which is obtai kayli from patient?? ?s medical record .??? Joey Guzman . and Naeem Bowers. Prediction of creatinine clearance from serum creatini ne. Nephron. 1976. 16(1):31-41. Estimated GFR ( July 14, 2018 > 60 60- Macedonian) 9:03pm Estimated GFR July 14, 2018 > 60 60- (Non- 9:03pm BUN/Creatinine Ratio July 14, 2018 10.8 10.0-20.0 9:03pm Glucose Level July 14, 2018 165 mg/dL High 70-100 9:03pm Calcium Level July 14, 2018 8.4 mg/dl Low 8.6-10.3 9:03pm Magnesium Level July 11, 2018 2.0 mg/dL 1.8-2.5 9:35am Total Bilirubin July 11, 2018 0.4 mg/dl 9:35am Aspartate Amino Transf July 11, 2018 16 U/L 15-41 (AST/SGOT) 9:35am Alanine July 11, 2018 25 U/L 14-63 Aminotransferase 9:35am (ALT/SGPT) Troponin T July 15, 2018 < 0.01 12:12am ng/ml Total Protein July 11, 2018 6.6 g/dL 6.4-8.3 9:35am Albumin July 11, 2018 3.6 g/dl Low 4.0-5.0 9:35am Albumin/Globulin Ratio July 11, 2018 1.2 1.0-2.6 9:35am Alkaline Phosphatase July 11, 2018 117 U/L 40-129 9:35am Advance Directives Advance Directive Response Recorded Date/Time Advance Directives No July 14, 2018 9:51p m Health Care Proxy No July 14, 2018 9:51p m Chief Complaint and Reason for Visit Encounter Admit Date Chief Complaint Reason for Visit Departed Emergency July 14, 2018 8:44pm chest pain Hospital Discharge Instructions No known hospital discharge instructions. Encounters Encounter Facility Location Admit/Visit Discharge/Departure Atte nding Date Date Provider Departed [facility] July 14, 2018 July 15, 2018 1:31am [facility]arted [facility] July 11, 2018 July 11, 2018 2:32pm [facility] Functional Status No known functional status. Immunizations No known immunizations. Payers Payer Name Policy Type Covered Covered Green Party Relationship Subscriber Subscriber Id Green Party Id [facility] JOAQUÍN [id number] Self / Same JOAQUÍN [id number] Care Odin NO As Patient NO [facility] No Medicaid JOAQUÍN [id number] Self / Same JOAQUÍN 1 [id number] PCC NO As Patient NO Medicare A&B Medicare JOAQUÍN [id number] Self / Same JOAQUÍN [id number] Primary NO As Patient NO Self Pay Personal Payment (Xie - No Insurance) Plan of Care No Known Plan of Care Information Social History Query Response Date Recorded Comment Lives With Friend/Roommate July 14, 2018 9:03pm Living Situation Community Housing July 14, 2018 9:03pm Query Response Start Date Stop Date Smoking Status Never smoker Vital Signs Vital Reading Result Reference Range Collection Date/ Time Height 1.75 m July 14, 2018 8 :49pm Weight 113.398 kg July 14, 2018 8 :49pm Temperature 98.2 F 97.6 F-99.6 F July 14, 2018 8 :49pm Pulse 80 BPM 60-90 July 14, 2018 1 1:08pm Respiration 16 RPM 12-24 July 14, 2018 1 1:08pm Pulse Oximetry 99 % 95-100 July 14, 2018 1 1:08pm Blood Pressure Systolic 120 90-140 July 11:08pm Blood Pressure Diastolic 92 60-90 July 022018 11:08pm Body Mass Index 36.9 July 14, 2018 8 :49pm
--- OUTSIDE RECORDS SUMMARY | 2022-04-07 13:25 | XMS_ITS | Continuity of Care Document ---
:1960 Author Organization [facility] Address [address] [place] [address] Support Name Relationship Address Phone Pcp-None, Primary Care Provider Unavailable Unavailabl e Pcp-None, Family Provider Unavailable Unavailable Alissa Limon Emergency Provider [address] [facility] Sem[facility] - Mmr [address] [place] [address] Gurjit Solomon Admit Provider [address] [facility] [phone] C[place] [address] [place] [address] Gurjit Solomon Attending Provider [address] [place] [address] C[place] [address] [place] [address] Allergies, Adverse Reactions, Alerts Allergen Type Severity [...] ( June 30, 2019 > 60 60- Sri Lankan) 2:06am Estimated GFR June 30, 2019 > [...] pain, rule out acute myocardial infarction 5:59am [place],PACEMAKER FIRED X3 Mood disor ryder Pacemaker compli [...] June 30, 2019 June 30, 2019 3:57pm [facility] 5:59am [facility] Discharged [address] April 21April 21, [facility] 1:03am 2:35pm José Encounter Diagnosis Onset [...] scriber Constitution Party Constitution Party Id Id [facility] [id number] Self / Same As JOAQUÍN [id number] [facility] NO Patient NO Self Pay Personal Payment [...] prefer to follow up with cardiology at [facility]. Please call [phone] or [phone] to make an appointment with cardiology at [facility], Dr. Kali Richardson or Dr. Mack Candelaria. [...]
--- OUTSIDE RECORDS SUMMARY | 2022-04-07 13:25 | XMS_ITS | Continuity of Care Document ---
:1960 Author Organization [facility] Address [address] [place] [address] Support Name Relationship Address Phone E/R Physician, E Primary Care Provider Unavailable Unavailab Patricio Ann Emergency Provider [facility] r Unavailable [address] [place] [address] Allergies, Adverse Reactions, Alerts Allergen Type Severity Reaction Last Updated Verified Status atorvastatin Allergy Hives July 11, 2018 Y Ac tive peas Allergy Hives July 11, 2018 Y Activ e Medications No medication information available. Problem List No problem information available. Procedures Procedure Date Status XR chest 1V portable July 11, 2018 completed Relevant Diagnostic Tests and/or Laboratory Data Laboratory Results Test Date/Time Result Interp. Ref. Range Result Comment White Blood Count July 11, 2018 8.5 X10 4.5-11.0 9:35am 3/uL Red Blood Count July 11, 2018 4.22 X10 4.00-5.50 9:35am 6/uL Hemoglobin July 11, 2018 11.6 g/dl Low 12.0-17.0 9:35am Hematocrit July 11, 2018 36.7 % 35.0-50.0 9:35am Mean Corpuscular July 11, 2018 87.0 fl 80.0-100.0 Volume 9:35am Mean Corpuscular July 11, 2018 27.5 pg 27.0-34.0 Hemoglobin 9:35am Mean Corpuscular July 11, 2018 31.6 g/dl 31.0-36.0 Hemoglobin Concent 9:35am Red Cell Distribution July 11, 2018 13.7 % 11.5-15.0 Width 9:35am Platelet Count July 11, 2018 104 X10 Low 150-400 9:35am 3/uL Immature Granulocyte % July 11, 2018 0.7 % (Auto) 9:35am Neutrophils (%) (Auto) July 11, 2018 73.4 % 9:35am Lymphocytes (%) (Auto) July 11, 2018 14.7 % 9:35am Monocytes (%) (Auto) July 11, 2018 7.4 % 9:35am Eosinophils (%) (Auto) July 11, 2018 3.1 % 9:35am Basophils (%) (Auto) July 11, 2018 0.7 % 9:35am Immature Granulocyte # July 11, 2018 0.06 X10 0.00-0.09 (Auto) 9:35am 3/uL Neutrophils # (Auto) July 11, 2018 6.2 X10 1.5-7.8 9:35am 3/uL Lymphocytes # (Auto) July 11, 2018 1.3 X10 1.0-4.8 9:35am 3/uL Monocytes # (Auto) July 11, 2018 0.6 X10 0.0-0.8 9:35am 3/uL Eosinophils # (Auto) July 11, 2018 0.3 X10 0.0-0.5 9:35am 3/uL Basophils # (Auto) July 11, 2018 0.1 X10 0.0-0.2 9:35am 3/uL Nucleated Red Blood July 11, 2018 0.0 /100 0.0-0.0 Cells % 9:35am WBC Prothrombin Time July 11, 2018 14.8 [...] 22.3-35.9 Thromboplast Time 9:35am Sodium Level July 11, 2018 140 mmol/L 137-146 9:35am Potassium Level July 11, 2018 4.1 mmol/L 3.5-5.3 9:35am Chloride Level July 11, 2018 103 mmol/L 98-107 9:35am Carbon Dioxide Level July 11, 2018 24 mmol/L 23-32 9:35am Anion Gap July 11, 2018 13 mmol/L 5-15 9:35am Blood Urea Nitrogen July 11, 2018 16 mg/dl 5-25 9:35am Creatinine July 11, 2018 1.1 mg/dL 0.6-1.4 9:35am Estimated Creatinine July 11, 2018 75.0 ml/min ???This value is Clearance 9:35am calculated by Cockcroft Suraj t Equation using ideal body alexia ght. This result is dependent on a n accurate patie nt height and alexia ght which is obtai kayli from patient?? ?s medical record .??? Joey Guzman . and MJosselinHJosselin Bowers. Prediction of creatinine clearance from serum creatini ne. Nephron. 1976. 16(1):31-41. Estimated GFR ( July 11, 2018 > 60 60- Rwandan) 9:35am Estimated GFR July 11, 2018 > 60 60- (Non- 9:35am BUN/Creatinine Ratio July 11, 2018 14.5 10.0-20.0 9:35am Glucose Level July 11, 2018 198 mg/dL High 70-100 9:35am Calcium Level July 11, 2018 8.4 mg/dl Low 8.6-10.3 9:35am Magnesium Level July 11, 2018 2.0 mg/dL 1.8-2.5 9:35am Total Bilirubin July 11, 2018 0.4 mg/dl 9:35am Aspartate Amino Transf July 11, 2018 16 U/L 15-41 (AST/SGOT) 9:35am Alanine July 11, 2018 25 U/L 14-63 Aminotransferase 9:35am (ALT/SGPT) Troponin T July 11, 2018 < 0.01 9:35am ng/ml Total Protein July 11, 2018 6.6 g/dL 6.4-8.3 9:35am Albumin July 11, 2018 3.6 g/dl Low 4.0-5.0 9:35am Albumin/Globulin Ratio July 11, 2018 1.2 1.0-2.6 9:35am Alkaline Phosphatase July 11, 2018 117 U/L 40-129 9:35am Advance Directives Advance Directive Response Recorded Date/Time Advance Directives No July 11, 2018 9:16a m Health Care Proxy No July 11, 2018 9:16a m Chief Complaint and Reason for Visit Encounter Admit Date Chief Complaint Reason for Visit Departed Emergency July 11, 2018 9:07am Chest pain Hospital Discharge Instructions No known hospital discharge instructions. Encounters Encounter Facility Location Admit/Visit Discharge/Departure Atte nding Date Date Provider Departed [facility] July 11, 2018 July 11, 2018 2:32pm [facility] Functional Status No known functional status. Immunizations No known immunizations. Payers Payer Name Policy Type Covered Covered Libertarian Relationship Subscriber Subscriber Id Libertarian Id [employer] JOAQUÍN [id number] Self / Same JOAQUÍN [id number] Care Tarrs NO As Patient NO [facility] No Medicaid JOAQUÍN [id number] Self / Same JOAQUÍN 1 [id number] PCC NO As Patient NO Medicare A&B Medicare JOAQUÍN [id number] Self / Same JOAQUÍN [id number] Primary NO As Patient NO Self Pay Personal Payment (Xie - No Insurance) Plan of Care No Known Plan of Care Information Social History Query Response Date Recorded Comment Lives With Alone July 11, 2018 9:29am Living Situation [facility] July 11, 2018 9:29am Query Response Start Date Stop Date Smoking Status Never smoker Vital Signs Vital Reading Result Reference Range Collection Date/ Time Height 1.75 m July 11, 2018 9 :28am Weight 113.398 kg July 11, 2018 9 :28am Temperature 97.4 F 97.6 F-99.6 F July 11, 2018 9 :18am Pulse 68 BPM 60-90 July 11, 2018 1 2:23pm Respiration 18 RPM 12-24 July 11, 2018 1 2:23pm Pulse Oximetry 98 % 95-100 July 11, 2018 1 2:23pm Blood Pressure Systolic 110 90-140 July 12:23pm Blood Pressure Diastolic 55 60-90 July 022018 12:23pm Body Mass Index 36.9 July 11, 2018 9 :28am
--- OUTSIDE RECORDS SUMMARY | 2022-04-07 13:25 | XMS_ITS | Continuity of Care Document ---
:1960 Author Organization [facility] Address [address] [place] [address] Support Name Relationship Address Phone Pcp-None, Primary Care Provider Unavailable Unavailabl e Pcp-None, Family Provider Unavailable Unavailable Alissa Limon Emergency Provider [address] [facility] [phone] [address] - [address] [place] [address] Gurjit Solomon Admit Provider [address] [facility] [address] [address] [place] [address] Gurjit Solomon Attending Provider [address] [place] [address] C[address] [place] [address] Allergies, Adverse Reactions, Alerts Allergen Type Severity [...] ( June 30, 2019 > 60 60- Iraqi) 2:06am Estimated GFR June 30, 2019 > [...] pain, rule out acute myocardial infarction 5:59am [place],PACEMAKER FIRED X3 Mood disor ryder Pacemaker compli [...] June 30, 2019 June 30, 2019 3:57pm [facility] 5:59am [facility] Discharged [address] April 21April 21, [facility] 2:35pm José Encounter Diagnosis Onset Date Chest pain, rule out acute myocardial infarction Mood disorder Pacemaker complications Functional Status Query Response Date Recorded Comment Patient Behavior Appropriate June 30, 2019 11:50pm Cooperative Query Response Date Recorded Comment Assistive Devices None June 30, 2019 10:38am Immunizations No known immunizations. Payers Payer Name Policy Type Covered Covered Relationship Subscriber Sub scriber Alliance Party Alliance Party Id Id [facility] [id number] Self / Same As JOAQUÍN [id number] [facility] NO Patient NO Self Pay [...] prefer to follow up with cardiology at [facility]. Please call [phone] or [phone] to make an appointment with cardiology at [facility], Dr. Kali Richardson or Dr. Mack Candelaria. [...]
--- OUTSIDE RECORDS SUMMARY | 2022-04-07 13:26 | XMS_ITS | Continuity of Care Document ---
:1960 Author Organization [facility] Address [address] [place] [address] Support Name Relationship Address Phone Pcp-None, Primary Care Provider Unavailable Unavailabl e Pcp-None, Family Provider Unavailable Unavailable Alissa Limon Emergency Provider [address] [facility] [address] [place] [address] Gurjit Solomon Admit Provider [address] [facility] [address] [address] [place] [address] Gurjit Solomon Attending Provider [address] [place] [address] C[address] [place] [address] Allergies, Adverse Reactions, Alerts Allergen Type Severity [...] ( June 30, 2019 > 60 60- Bhutanese) 2:06am Estimated GFR June 30, 2019 > [...] pain, rule out acute myocardial infarction 5:59am [place],PACEMAKER FIRED X3 Mood disor ryder Pacemaker compli [...] June 30, 2019 June 30, 2019 3:57pm [facility] 5:59am [facility] Discharged [address] April 21April 21, [facility] 2018 1:03am 2:35pm José Encounter Diagnosis Onset Date Chest pain, rule out acute myocardial infarction Mood disorder Pacemaker complications Functional Status Query Response Date Recorded Comment Patient Behavior Appropriate June 30, 2019 11:50pm Cooperative Query Response Date Recorded Comment Assistive Devices None June 30, 2019 10:38am Immunizations No known immunizations. Payers Payer Name Policy Type Covered Covered Relationship Subscriber Sub scriber Republican Republican Id Id [facility] [id number] Self / Same As JOAQUÍN [id number] [facility] NO Patient NO Self Pay Personal [...] prefer to follow up with cardiology at [facility]. Please call [phone] or [phone] to make an appointment with cardiology at [facility], Dr. Kali Richardson or Dr. [...]
--- OUTSIDE RECORDS SUMMARY | 2022-04-07 13:26 | XMS_ITS | Continuity of Care Document ---
:1960 Author Organization [facility] Address [address] [place] [address] Phone Care Team Providers Name Role Phone Pcp-None, MD Singh Primary Care Provider Unavailable Pcp-None, MD Singh Family Provider Unavailable Hospitalist, Model (IS ONLY) Emergency Provider Unavailable MD Juan Andersen Other Provider MD Cathleen Washington Attending Provider MD Louie Hart Other Provider MD Cyndi Sampson Other Provider TERESSA RUIZ Primary Care Provider TERESSA RUIZ Family Provider MD Prakash Saravia Emergency Provider Chief Complaint and Reason for Visit Chief Complaint CHEST PAIN LOWER LT ABD PAIN Reason for Visit Abdominal pain BPH (benign prostatic hyperp lasia) 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 Chest pain Neck pain Tetralogy of Fallot Essential hypertension Mixed hyperlipidemia Paroxysmal atrial fibrillati on Type 2 diabetes mellitus Allergies, Adverse Reactions, Alerts Allergen Type Severity Reaction Last Updated Verified Status atorvastatin Allergy Unknown Hives November 28, Yes Acti ve 2021 9:15pm peas Allergy Unknown Hives (Green November 28, Yes Acti ve Peas) 2021 9:15pm bee venom protein Allergy Unknown November 28, Yes Active (honey bee) 2022 9:20pm Social History Smoking Status Status Start Date End Date Date of Observat ion Never smoked tobacco (finding) M arch 2019 6:38am Observation Status Observation Response Date of Response Lives With Other November 21, 2021 1: 46pm Living Situation [facility] November 21, 2021 12 :13pm Living Situation [facility] November 282021 10:44pm Additional Data Assigned Sex Male Problems Active Problems Medical Problem Onset Date Status BPH (benign prostatic hyperplasia) Activ e Obstructive sleep apnea Active Sleep apnea Active Diabetes Active Alcohol abuse Active Essential hypertension Active Type 2 diabetes mellitus Active Dyslipidemia Active Mood disorder Active Afib Active Depression Active Hypothyroidism Active 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 Mixed hyperlipidemia Active Atypical chest pain Active QT prolongation Active Seizure Active Tetralogy of Fallot Active Tetralogy of Fallot Active Chest pain, rule out acute myocardial infarction Active Bipolar 1 disorder Active Paroxysmal atrial fibrillation Active Neck pain Active 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 Abdominal pain Active Chest pain Active Chest pain Active Hypertension Active Inactive/Resolved Problems Medical Problem Onset Date Status Closed head injury Resolved Medications Medication Status Dose Units Route Directions Qty Days Start End Ins tructions Date Date Metformin Discontin 500 MG PO TWICE A DAY April ued WITH MEALS 2018 1:00am 11:30a m Fluticasone Discontin 1 PUFF INH DAILY Aprilr Propionate ued (Flovent 50 2018, Mcg Diskus) 1:00am 2018 60 PUFF/DISK 2:28am Disk Acetaminophen Discontin 650 MG PO EVERY 6 April Meng h ued HOURS 2018 1:00am 11:34a m Lorazepam Discontin 0.5 MG PO DAILY April ued 2018 1:00am 11:30a m Omeprazole Discontin 20 MG PO DAILY April ued 2018 1:00am 11:30a m Montelukast Discontin 10 MG PO ONCE DAILY April ch ued AT BEDTIME 2018 1:00am 11:30a m Albuterol Discontin 2 PUFF INH EVERY 4 April Sulfate ued HOURS , (Proventil 2018 2019 Hfa) 6.7 GM 1:00am 11:34a Hfa.Aer.Ad m Cyclobenzapri Discontin 5 MG PO THREE TIMES April ne ued A DAY 2018 1:00am 11:30a m Febuxostat Discontin 80 MG PO DAILY April (Uloric) 80 ued , MG Tablet 2018 2019 1:00am 11:30a m Trazodone HCl Discontin 50 MG PO ONCE DAILY April arch ued AT BEDTIME 2018 1:00am 11:30a m Fluticasone Discontin 1 SPRAY NASAL TWICE A DAY April Ma rch Propionate ued 2018 1:00am 11:30a m Isosorbide Active 30 MG PO DAILY November Mononitrate 2021 12:00am Metoprolol Active 100 MG PO DAILY November Succinate 2021 12:00am Olanzapine Active 2.5 MG PO TWICE A DAY November 20, 2021 12:00am Aspirin Active 81 MG PO DAILY November 20, 2021 12:00am Levothyroxine Active 75 MCG PO DAILY November 20, 2021 12:00am Gabapentin Active 300 MG PO TWICE A DAY November 20, 2021 12:00am Albuterol Active 1 INH INH FOUR TIMES [place] Sulfate DAILY 2021 12:00am Lisinopril Active 2.5 MG PO DAILY November 20, 2021 12:00am Naproxen Active 500 MG PO TWICE A DAY November 20, 2021 12:00am Cyclobenzapri Active 5 MG PO DAILY November 12:00am Trazodone Active 100 MG PO ONCE DAILY November AT BEDTIME 2021 12:00am Melatonin Active 5 MG PO ONCE DAILY November AT BEDTIME 2021 12:00am Sennosides Active 8.6 MG PO TWICE A DAY November (Senna) 8.6 , mg Capsule 2021 12:00am Procedures Procedure Date Performed Status EKG ED Electrocardiogram November 20, 2021 1:18am completed XR chest 2V November 20, 2021 1:18am completed CT cervical spine wo contrast November 20, 2021 12:28pm comp leted CT abd pelvis wo/w contrast November 20, 2021 10:57am comple devendra US bladder November 21, 2021 9:28am completed EKG ED Electrocardiogram November 20, 2021 1:40pm completed NM bone scan whole body November 22, 2021 7:00am completed EKG Electrocardiogram November 21, 2021 6:26pm completed CT head/brain wo contrast November 23, 2021 9:22am completed SARS-CoV-2, Influenza & RSV (PCR) comple devendra Relevant Diagnostic Tests and/or Laboratory Data Laboratory Results Test Date/Time Result Interpretation Reference Result Perfo rming Range Comment Site Add-On Test November Added [facility] Request 2021 test [address] [facility] 3:59pm [place] A [address] White Blood Count November 5.6 X10 4.5-11.0 [facility] 2021 3/uL [address] [facility] 8:20am [place] A [address] White Blood Count November 8.5 X10 4.5-11.0 [facility] 2021 3/uL [address] [facility] 9:50pm [place] [address]35 Red Blood Count November 3.95 X10 4.00-5.50 [facility] 2021 6/uL [address] [facility] 8:20am [place] A 60445 Red Blood Count November 4.46 X10 4.00-5.50 [facility] 2021 6/uL [address] [facility] 9:50pm [place] A 74696 Hemoglobin November 12.0 g/dl 12.0-17.0 [facility] 2021 [address] [facility] 8:20am [place] A [address]35 Hemoglobin November 13.8 g/dl 12.0-17.0 [facility] 2021 235 [facility] 9:50pm [place] A [address]27 Hematocrit November 36.9 % 35.0-50.0 [facility] 2021 235 [facility] 8:20am [place] A [address]33 Hematocrit November 41.4 % 35.0-50.0 [facility] 2021 [address] [facility] 9:50pm [place] A [address]389 Mean Corpuscular November 93.4 fl 80.0-100.0 [facility] Volume 2021 [address] [facility] 8:20am [place] A [address]1505 Mean Corpuscular November 92.8 fl 80.0-100.0 [facility] Volume [address] 9:50pm [place] A [address] Mean Corpuscular [place] 30.4 pg 27.0-34.0 [facility] Hemoglobin 2021 [address] [facility] [address] 8:20am [place] A [address] Mean Corpuscular [place] 30.9 pg 27.0-34.0 [facility] Hemoglobin [address] 9:50pm [place] A [address] Mean Corpuscular [place] 32.5 g/dl 31.0-36.0 [facility] Hemoglobin [address] [facility] [address] Con[place] 8:20am [place] A [address]67 Mean Corpuscular November 33.3 g/dl 31.0-36.0 [facility] Hemoglobin [address] [facility] [address] [place] 9:50pm [place] A 11897 Red Cell November 12.6 % 11.5-15.0 [facility] Distribution [address] Width 8:20am [place] A [address]33 Red Cell [place] 12.5 % 11.5-15.0 [facility] Distribution [address] Width 9:50pm [place] A [address]1593 Platelet Count November 90 X10 150-400 [facility] 2021 3/uL [address] [facility] [address] 8:20am [place] A [address]694 Platelet Count November 103 X10 150-400 [facility] 2021 3/uL [address] [facility] [address] 9:50pm [place] A [address] Immature [place] 1.1 % [facility] Granulocyte % [address] (Auto) 8:20am [place] A [address] Immature November 1.5 % [facility] Granulocyte % [address] (Auto) 9:50pm [place] A [address]893 Neutrophils (%) November 62.7 % [facility] (Auto) 2021 [facility] 8:20am [place] A 48496 Neutrophils (%) November 66.2 % [facility] (Auto) 2021 [address] [facility] 9:50pm [place] A 79987 Lymphocytes (%) November 18.8 % [facility] (Auto) 2021 [facility] 8:20am [place] A 12251 Lymphocytes (%) November 18.0 % [facility] (Auto) 2021 [facility] 9:50pm [place] A 10772 Monocytes (%) November 9.8 % [facility] ([facility] 2021 [facility] 8:20am [place] A 94775 Monocytes (%) November 8.7 % [facility] (Auto) 2021 [facility] 9:50pm [place] A 96817 Eosinophils (%) November 6.2 % [facility] (Auto) 2021 [address] [facility] 8:20am [place] A 63438 Eosinophils (%) November 4.2 % [facility] (Auto) 2021 [facility] 9:50pm [place] A 52320 Basophils (%) November 1.4 % [facility] (Auto) 2021 [facility] 8:20am [place] A 81963 Basophils (%) November 1.4 % [facility] (Auto) 2021 [address] [facility] 9:50pm [place] A 00893 Immature [place] 0.06 X10 0.00-0.09 [facility] Granulocyte # 2021 3/uL [address] (Auto) 8:20am [place] A 11536 Immature [place] 0.13 X10 0.00-0.09 [facility] Granulocyte # 2021 3/uL [address] (Auto) 9:50pm [place] A [address]25 Neutrophils # November 3.5 X10 1.5-7.8 [facility] (Auto) 2021 3/uL [address] [facility] 8:20am [place] A 95868 Neutrophils # [place] 5.6 X10 1.5-7.8 [facility] (Auto) 2021 3/uL [address] [facility] [address] 9:50pm [place] A [address]217 Lymphocytes # [place] 1.1 X10 1.0-4.8 [facility] (Auto) 2021 3/uL [address] [facility] [address] 8:20am [place] A [address]884 Lymphocytes # [place] 1.5 X10 1.0-4.8 [facility] (Auto) 2021 3/uL [address] [facility] 9:50pm [place] A 07121 Monocytes # [place] 0.6 X10 0.0-0.8 [facility] (Auto) 2021 3/uL [address] [facility] 8:20am [place] A [address]1192 Monocytes # [place] 0.7 X10 0.0-0.8 [facility] (Auto) 2021 3/uL [address] [facility] 9:50pm [place] A 01365 Eosinophils # [place] 0.4 X10 0.0-0.5 [facility] (Auto) 2021 3/uL [address] [facility] [address] 8:20am [place] A [address]4212 Eosinophils # [place] 0.4 X10 0.0-0.5 [facility] (Auto) 2021 3/uL [address] [facility] 9:50pm [place] A 24603 Basophils # [place] 0.1 X10 0.0-0.2 [facility] (Auto) 2021 3/uL [address] [facility] [address] 8:20am [place] A 10704 Basophils # [place] 0.1 X10 0.0-0.2 [facility] (Auto) 2021 3/uL [address] [facility] 9:50pm [place] A 70671 Hemoglobin A1c November 6.6 4.3-5.9 [facility] 2021 [address] [facility] 6:10am [place] A 22324 Estimated Average November 143 mg/dl [facility] Glucose (eAG) 2021 [address] [facility] 6:10am [place] A 03097 Nucleated Red [place] 0.0 /100 0.0-0.0 [facility] Blood Cells % 2021 WBC [address] [facility] [address] 8:20am [place] A 17583 Nucleated Red [place] 0.0 /100 0.0-0.0 [facility] Blood Cells % 2021 WBC [address] [facility] 9:50pm [place] A [address]6635 Prothrombin Time November 11.1 9.3-12.1 [facility] 2021 Seconds [address] [facility] 5:31am [place] A 65948 Prothromb Time November 1.0 0.9-1.2 Reference Interval is for non-anticoagulated patients. [facility] 2021 Suggested I NR Therapeutic Range for Vitamin K antogonist therapy: [address] [facility] Ratio 5:31am LEVELS OF [place] M A 99978 THERAPY INDICATIONS TARGET INR RANGE Standard Dose Venous Thrombosis, 2.0 - 3.0 Atrial Fibrillation , Pulmonary Embolism. High Dose Valvular H eart Disease, 2.5 - 3.5 Mechanical Heart, Intracardiac Thromb osis. Urine Color November Yellow Yellow [facility] 2021 [address] [facility] 10:06pm [place] A 93211 Urine Clarity November [facility] 2021 [address] [facility] 10:06pm [place] A 63258 Urine pH November 5.5 5.0-8.0 [facility] 2021 [address] [facility] 10:06pm [place] A 68634 Urine Specific November 1.013 1.005-1.03 [facility] [place] 2021 0 [address] [facility] 10:06pm [place] A 22550 Urine Blood November Negative Negative [facility] 2021 mg/dL [address] [facility] 10:06pm [place] A 01544 Urine Protein November Negative Negative [facility] 2021 mg/dL [address] [facility] 10:06pm [place] A 80779 Urine Glucose November Negative Negative [facility] ([facility]) 2021 mg/dl [address] [facility] 10:06pm [place] A 06902 Urine Ketones November Negative Negative [facility] 2021 mg/dL [address] [facility] 10:06pm [place] A 48064 Urine Nitrate November Negative Negative [facility] 2021 [address] [facility] 10:06pm [place] A 03361 Urine Bilirubin November Negative Negative [facility] 2021 mg/dL [address] [facility] 10:06pm Rome[place] Perry A [address] Urine [place] 0.2 Normal [facility] Urobilinogen 2021 E.U./dL [facility] 10:06pm [place] [address] Urine Leukocyte November Negative Negative [facility] Esterase 2021 mg/dL [address] [facility] 10:06pm Romeo [place] 67033 Sodium Level November 141 137-146 [facility] 2021 mmol/L [address] [facility] 6:10am [place] A 55110 Sodium Level November 137 137-146 [facility] 2021 mmol/L [address] [facility] 9:50pm [place] A 05562 Potassium Level November 4.2 3.5-5.3 [facility] 2021 mmol/L [address] [facility] 6:10am [place] A 81013 Potassium Level November 4.7 3.5-5.3 Specimen [facility] 2021 mmol/L hemolyzed, 235 [facility] 9:50pm results [place] A 18804 affected Chloride Level November 102 98-107 [facility] 2021 mmol/L [address] [facility] 6:10am [place] A 49796 Chloride Level November 99 mmol/L 98-107 [facility] 2021 [address] [facility] 9:50pm [place] A 53549 Carbon Dioxide November 26 mmol/L 23-32 [facility] Level 2021 [address] [facility] 6:10am [place] A 65740 Carbon Dioxide November 27 mmol/L [facility] Level 2021 [address] [facility] 9:50pm [place] A 19799 Anion Gap November 13 mmol/L 08-15 [facility] 2021 [address] [facility] 6:10am [place] A 64444 Anion Gap November 11 mmol/L 08-15 [facility] 2021 [address] [facility] 9:50pm [place] A 09511 Blood Urea November 16 mg/dl 08-25 [facility] Nitrogen 2021 235 [facility] 6:10am [place] A 55402 Blood Urea November 22 mg/dl 08-25 [facility] Nitrogen 2021 [address] [facility] 9:50pm [place] A 72611 Creatinine November 1.1 mg/dL 0.6-1.4 [facility] 2021 [address] [facility] 6:10am [place] A 51175 Creatinine November 1.3 mg/dL 0.6-1.4 [facility] 2021 [address] [facility] 9:50pm [place] A 63796 Estimated November 74.7 This value [facility] Creatinine 2021 ml/min is calculated 235 [facility] Clearance 6:10am [place] [address] Gault Equation using ideal body weight. This result is dependent on an accurate patient height and weight which is obtained from patients medical record. Cockmicheletoft, D.W. and M.H. Gault. Prediction of creatinine clearance from serum creatinine. Nephron. 1976. 16(1):31-41. Estimated November 74.4 This value [facility] Creatinine 2021 ml/min is calculated 235 [facility] Clearance 9:50pm [place] [address] Gault Equation using ideal body weight. This result is dependent on an accurate patient height and weight which is obtained from patients medical record. Cockmicheletoft, D.W. and M.H. Gault. Prediction of creatinine clearance from serum creatinine. Nephron. 1976. 16(1):31-41. Estimated GFR November 85 >60 [facility] ( 2021 235 [facility]) 6:10am [place] A 36243 Estimated GFR November 69 >60 [facility] ( 2021 235 [facility]) 9:50pm [place] A 42938 Estimated GFR November 73 >60 [facility] (Non- [address] [place] 6:10am [place] A 75723 Estimated GFR November 60 >60 [facility] (Non- [address] [place] 9:50pm [place] A [address]698 BUN/Creatinine November 14.5 10.0-20.0 [facility] Ratio 2021 235 [facility] 6:10am [place] A 37626 BUN/Creatinine November 16.9 10.0-20.0 [facility] Ratio 2021 [address] [facility] 9:50pm [place] A 18277 Glucose Level November 106 mg/dL 70-100 [facility] 2021 [facility] 6:10am [place] A 31711 Glucose Level November 226 mg/dL 70-100 [facility] 2021 [address] [facility] 9:50pm [place] A 18470 Calcium Level November 8.6 mg/dl 8.6-10.3 [facility] 2021 [address] [facility] 6:10am [place] A 37346 Calcium Level November 8.8 mg/dl 8.6-10.3 [facility] 2021 [address] [facility] 9:50pm [place] A 89475 Total Bilirubin November 0.3 mg/dl <1.1 [facility] 2021 [address] [facility] 9:50pm [place] A 23443 Aspartate Amino November 16 U/L - [facility] Transf (AST/SGOT) 2021 2 35 [facility] 9:50pm [place] A 31187 Alanine November 18 U/L 14-63 [facility] Aminotransferase 2021 23 5 [facility] (ALT/SGPT) 9:50pm Romeo VILLALOBOS 68481 Troponin T High November 13 ng/L <13 Normal range: Females <9 ng/L [facility] Sensitivity 2021 Males <14 ng/L 2 35 [facility] 12:10am [place] [address] Values greater than or equal to 52 ng/L indicates acute myocardial injury/infarction Values between '10 and 51 ng/L' (for females) or '15 and 51 ng/L' (for males) require clinical correlation and is not diagnostic of acute myocardial injury. Consider repeat at 1 and 3 hours. A dynamic incr ease of ? greater than 5 ng/L? at 1 hour or 3 hours indicates of acute myocardial injury/infarction. For a patient with an estimated GFR of less than 30 mL/min/1.73 m2 or receiving dialysis, a dynamic increase of greater than 20% at 3 hours indicates acute myocardial injury. A value of les s than 9 ng/L (in females) or less than 14 ng/L (in males) with a dynamic change of less than 3 ng/L, greater than 3 hours after symptom onset, generally rules out acute myocardial injury/infarction. Refer to Chest Pain order sets for additional clinical decision support (using the HEART score for the ED or the TONI score for the inpatient setting). Total Protein November 6.7 g/dL 6.4-8.3 [facility] 2021 235 [facility] 9:50pm Rome[place] 30[address] Albumin November 4.0 g/dl 4.0-5.0 [facility] 2021 [address] [facility] 9:50pm [place] De[place]re 712[address] Albumin/Globulin November 1.5 1.0-2.6 Denise nolasco [facility] Ratio 2021 [address] [facility] 9:50pm Romeo [place] 196[address] Alkaline November 93 U/L 40-129 [facility] Phosphatase 2021 235 [facility] 9:50pm [place] 174[address] Lipase November 36 U/L 13-60 [facility] 2021 235 [facility] 9:50pm Romeo Deondre 32202 Prostate Specific November 0.63 <3.09 [facility] Antigen 2021 ng/ml 736 [facility] 12:10am [facility] [address] Thyroid November 4.83 0.34-5.60 [facility] Stimulating 2021 uIU/mL [address] [facility] Hormone (TSH) 8:20am [facility] Bedside Glucose November 165 mg/dl 70-100 NOTE: Any discrepancy between finger stick glucose result [facility] 2021 and patient's clin ical presentation should be 235 [facility] 11:31am confirmed by the la boratory. [facility] [address] Microbiology Results Procedure Source Result Collection Result Result Performin g Date/Time Date/Time Comment Site SARS-CoV-2, Nares, Both November 23, Goo d [facility] Influenza & Left & 2021 1:56pm [facility] RSV (PCR) Right [facility] [address] Diagnostic Imaging Reports Report Dictated Date/Time Dictated By Status Radiology Report November 20, 2021 9:08am Deniz Silva MD comp leted [facility] [address] [place] [address] Patient Name: Joaquín Barrientos [facility] rd#: [id number] Address: [address] [place] [address] City/State/Zip: [place] [address]: Ethan Washington MD Insurance: [facility] /Age/Sex: 1960/61/M Self Pay Admit/Reg Date: 11/20/[address]: Haris Bradshaw DO Location: ED[facility]/GSXFR-7 PCP: PcpMd MELANIE Johnson Date of Service: 11/20/21 Order (s): XR chest 2V CPT Code: 46547 Report Number: [id number] Reason for Exam: Chest Pain EXAM: Chest radiograph frontal and later al views INDICATION: Chest pain COMPARISON: Portable chest radiograph f rom 06/30/2019. FINDINGS/IMPRESSION: Stable size of the cardiac silhouette w ith unchanged appearance of left-sided pacemaker. Mild pulmonary vascular conge stion. Right and left lower lobe opacities could represent atelectasis or developing infection/pneumonia. No pleural effusions or pneumothorax. Dictated By: Deniz Silva MD 11/20/21 0 908 Signed By: Deniz Silva MD 11/20/21 0913 TD/TT: 11/20/21 0908Tech: [facility] cc: TASHA; TIA; CRYSTAL Lee MD; Cathleen Washington MD; Vince Bradshaw DO Report Dictated Date/Time Dictated By Status Electrocardiogram November 20, 2021 Warren Rivas MD completed [facility] [address] [place] [address] Patient Name: [facility] rd#: [id number] Address: [address] [place] [address] City/State/Zip: [place] [address]: Ethan Washington MD Insurance: [facility] /Age/Sex: 1960/61/M Self Pay Admit/Reg Date: 11/20/[address]: Haris Bradshaw DO [facility] PCP: Md MELANIE Lee Date of Service: 11/20/21 Order (s): EKG ED Electrocardiogram CPT Code: 20821 Report Number: [id number] Reason for Exam: Chest Pain SINUS RHYTHM RIGHT BUNDLE BRANCH BLOCK LEFT POSTERIOR FASCICULAR BLOCK Dictated By: Warren Rivas MD 11/20/21 Signed By: Warren Rivas MD 11/20/21 1442 TD/TT: 11/20/21 1441Tech: cc: TASHA; CRYSTAL Lee MD; Titus Bradshaw DO Report Dictated Date/Time Dictated By Status Radiology Report November 20, 2021 1:35pm Titus Martinez MD compl eted [facility] [address] [place] [address] Patient Name: [facility] rd#: [id number] Address: [address] [place] [address] 85 City/State/Zip: [place] [address]: Ethan Washington MD Insurance: [facility] /Age/Sex: 1960/61/M Self Pay Admit/Reg Date: 11/20/[address]: Caio Washington MD; Michael Shannon [facility] Location: [facility]/GSXFR-[id number] PCP: PcpMd MELANIE Johnson Date of Service: 11/20/21 Order (s): CT abd pelvis wo/w contrast; CT cervical spine wo contrast CPT Code: 25386; 51811 Report Number: [id number] Reason for Exam: hx cervical fracture in past. neck pain PROCEDURE: CERVICAL SPINE CT HISTORY: Neck pain. History of cervical fracture. COMPARISON: None TECHNIQUE: Noncontrast CT of the cervic al spine.Multiplanar imaging was reviewed. CT technique involves the adju stment of the mA and/or kV according to patient size. MIPS Measure #361 Patient Exposure to Ionizing Radiation was submitted to [employer] (ACR) [place] onal Data Registry (NRDR) and MIPS Measure #359 standard nomenclature was used for Dose Index registry submission and Measure #436 Adaptive Statistical I terative Reconstruction (ASIR) and Auto mA and Smart mA software, were used to r educe radiation dose to the patient. FINDINGS: Please note that CT examinati on of the spinal canal (especially without intrathecal contrast) is very li mited. If there is clinical concern for spinal cord abnormality/injury, spinal s tenosis, disc protrusion or nerve impingement then MRI exam should be cons idered. The prevertebral soft tissues are withi n normal limits. Subtle curvilinear lucency at the base of the dens (sagitta l bone window image, #39), suggesting age indeterminant nondisplaced odontoid type II fracture. Mild cervical lordosis. Multilevel anterior endplate o steophytes. Calcification of anterior longitudinal ligament. Questionable inju ry at the calcified ALL at the levels of C3-C4 and C7-T1. Cervicocranial junction shows no appart ent abnormality. At the C3-C4, there is right uncovertebral hypertrophy causing severe right neuroforaminal narrowing. At C6-7, there are diffuse calcified dis c bulge and central calcified disc protrusion causing spinal canal narrowin g. Visualized soft tissues of the neck preet w no significant abnormality. No acute process at the pulmonary apice s. IMPRESSION: Subtle curvilinear lucency at the base of the dens (sagittal bone window image, #39), suggesting age indeterminant nondi splaced odontoid type II fracture. No prior study available for comparison. Questionable injury at the calcified an terior longitudinal ligament at the levels of C3-C4 and C7-T1. Degenerative change in the cervical spi ne with spinal canal narrowing at C6-C7. Cervical spine MR can be considered for further evaluation. Examination: CT abd pelvis wo/w contras t Indication:abd pain/LLQ Comparison: None Technique: CT abdomen angiography and p leora was performed without and with in travenous contrast . 90 mL of Omnipaque 350. Coronal and sagittal reformatted images were provided for interpretation. MIPS Measure #361 Patient Exposure to Ionizing Radiation was submitted to [employer] (ACR) [facility] Radiology Data Registry (NRDR) and MIPS Measure #359 standard nomenclature was used for Dose Index registry submission and Measure #436 Adaptive S tatistical Iterative Reconstruction (ASIR) and Auto mA and Smart mA software , were used to reduce radiation dose to the patient. Findings: 2 leads pacemaker, partially visualized. Lung bases: Clear. Liver: The liver is unremarkable. Gallbladder: Unremarkable Pancreas: [Unremarkable Spleen: [Unremarkable Adrenal glands: [Unremarkable Kidneys: [Unremarkable Mesentery and retroperitoneum: There is no intraperitoneal free air, free fluid, or formed fluid collections. Ther e are no enlarged mesenteric or retroperitoneal lymph nodes. [There is n o aneurysmal dilatation of the abdominal aorta. Bowel: [There are no dilated loops of b owel or evidence of bowel obstruction. There is no abnormal bowel wall thickeni ng or peribowel inflammatory change. No acute appendicitis. A few diverticula in the sigmoid colon. No diverticulitis. Pelvis: 2.3 cm nodule in the posterior inferior aspect of bladder wall versus prostate protrusion into the bladder. Pr ostate measures 4.7 x 3.4 x 4.3 cm. Questionable trace air in the anterior bladder. Mild bladder wall thickening, measuring 6 mm in thickness. Overlying soft tissues and Axial skelet on: Facet hypertrophy in the lower lumbar spine. Degenerative changes in th e lower lumbar spine with diffuse disc bulge. Bilateral pars defects of L5. Grade 2 a nterolisthesis of L5 over S1. Exaggerated lumbar lordosis. Multilevel disc vacuum phenomena in the thoracolumbar spine. Impression: 2.3 cm nodule in the posterior inferior aspect of bladder wall versus prostate protrusion into the bladder. Direct exam ination or ULTRASOUND is suggested to rule out bladder neoplasm. Mild bladder wall thickening. Question air in the bladder. Clinical correlation with cystitis. No urolithiasis. No hydroureteronephros is. No colonic diverticulitis. Bilateral pars defects of L5. Grade 2 a nterolisthesis of L5 over S1. The above critical findings were discus sed with Dr. Washington at 2:46 PM on 11/20/2021. Dictated By: Titus Martinez MD 11/20/21 13 35 Signed By: Titus Martinez MD 11/20/21 1452 TD/TT: 11/20/21 1335Tech: [id number] cc: TIA; DEANNE; SOREN* Md Jesus MD; Cathleen Washington MD; Ceferino Shannon, PAC Report Dictated Date/Time Dictated By Status Radiology Report November 21, 2021 4:29pm Fer Lopez MD [address] [id number] Patient Name: Joaquín Barrientos rd#: [id number] Address: [address] [place] [address] 85 City/State/Zip: [place] [address]: Ethan Washington MD Insurance: [facility] /Age/Sex: 1960/61/M Self Pay Admit/Reg Date: 11/21/[address]: Caio Washington MD Location: [address] PCP: Md MELANIE Lee Date of Service: 11/21/21 Order (s): US bladder CPT Code: 39957 Report Number: [id number] Reason for Exam: possible tumor per imag ing study US bladder Indication: Possible tumor per imaging study Comparison: CT scan of the abdomen and pelvis dated November 20, 2021. FINDINGS: The prostate gland is prominent and het erogeneous measuring 4.3 x 3.7 x 3.8 cm with a total volume of 32 ml. There is u rinary bladder wall thickening intra and loculation. There is a solid nodule dens ity at the base of the bladder with maximum diameter of 1.3 cm it appears to be adjacent to the protruding segment of the prostate into the bladder lumen w ith more echogenic appearance. A small bladder lesion is not excluded. There is no post void residual. IMPRESSION: Echogenic solid nodule in the base of t he bladder requires further evaluation with direct visualization to exclude jey dder mass. It appears adjacent to the protruding prostate into the bladder bas e. However, the echogenicity is higher than prostate gland. Dictated By: Fer Lopez MD 11/21/211628 Signed By: Fer Lopez MD 11/21/21 164 1 TD/TT: 11/21/211628Tech: [id number] cc: HRSSPETE; PCPNO* Pcp-MD Renny; Cathleen Washington MD Report Dictated Date/Time Dictated By Status Radiology Report November 22, 2021 5:27pm [place] [address] Patient Name: Joaquín Barrientos [facility] rd#: [id number] Address: [address] [place] [address] 85 City/State/Zip: [place] [address]: Ethan Washington MD Insurance: [facility] /Age/Sex: 1960/61/M Self Pay Admit/Reg Date: 11/21/[address]: Caio Washington MD Location: 3A.GS/UR390-E PCP: Md MELANIE Lee Date of Service: 11/22/21 Order (s): NM bone scan whole body CPT Code: 19295 Report Number: [id number] Reason for Exam: c2 fracture THREE PHASE BONE SCAN OF CERVICAL SPINE WELL AND BONE SCAN OF WHOLE BODY CLINICAL INFORMATION PROVIDED: Chronic neck and back pain. Status post fall 2 years ago. Suspected fracture seen on re cent cervical spine CT from November 20, 2021. COMPARISON: Multiple prior studies dati ng back to January 19, 2019 TECHNIQUE: After intravenous administra tion of 23.7 millicurie of technetium 99m labeled MDP, three-phase bone scan o f the cervical spine was obtained. In addition, bone scan was obtained of the whole body. FINDINGS: THREE-PHASE BONE SCAN OF THE CERVICAL S PINE: No significant asymmetric hyperemia is noted. Small asymmetric increased uptake invol ving left upper posterior lateral cervical spine likely due to facet joint DJD seen in this area is seen. No other significant abnormalities are noted. REST OF THE WHOLE BODY BONE SCAN: Increased uptake involving left parieta l bone corresponding to 1.4 x 0.9 cm lobulated lytic lesion seen on head CT f rom January 19, 2019 is noted. Slight heterogeneous thoracolumbar spin e uptake likely corresponding to DJD seen on CT is seen. Evaluation of the proximal femur is bhardwaj ited due to patient's hands overlying this area. Evaluation of the lower extre mity is limited due to motion artifact. (Repeat study was difficult as patient w as complaining of a lot of pain.) Symmetric renal uptake is seen. IMPRESSION: No evidence of increased uptake in the region of C2 Increased uptake involving left parieta l bone corresponding to 1.4 x 0.9 cm lobulated lytic lesion seen on head CT f rom January 19, 2019 of uncertain etiology, likely benign in the absence o f known cancer. Repeat head CT is recommended to assess whether there is a ny significant change in the lytic lesion. Dictated By: Eduar Monzon MD 11/22/211726 Signed By: Eduar Monzon MD 11/22/211736 TD/TT: 11/22/211726Tech: [id number] cc: [facility]; PCPNO* Pcp-MD Renny; Cathleen Washington MD Report Dictated Date/Time Dictated By Status Electrocardiogram November 20, 2021 1:40am Jagjit Blum MD [address] [address] [place] [address] Patient Name: Joaquín Barrientos [facility] rd#: [id number] Address: [address] [place] [address] 85 City/State/Zip: [place] [address]: Ethan Washington MD Insurance: [facility] /Age/Sex: 1960/61/M Self Pay Admit/Reg Date: 11/21/[address]: Olga/ R Olga Correa [id number] PCP: PcpMd MELANIE Johnson Date of Service: 11/20/21 Order (s): EKG ED Electrocardiogram CPT Code: 84557 Report Number: [id number] Reason for Exam: CP Sinus rhythm Right axis deviation Right bundle branch block Left posterior fascicular block Low QRS voltages in precordial leads Dictated By: Jagjit Blum MD 11/20/21 01 40 Signed By: Jagjit Blum MD 11/22/211817 TD/TT: 11/20/21 0140Tech: [email or web address] cc: E/R; PCPNO* E/R PhysicianOlga ; Md Jesus MD Report Dictated Date/Time Dictated By Status Electrocardiogram November 21, 2021 6:26pm Jagjit Blum MD [address] [address] Patient Name: Joaquín Barrientos [facility] rd#: [id number] Address: [address] [place] [address] 85 City/State/Zip: [place] [address]: Ethan Washington MD Insurance: [facility] /Age/Sex: 1960/61/M Self Pay Admit/Reg Date: 11/21/[address]: Caio Washington MD [id number] PCP: Md MELANIE Lee Date of Service: 11/21/21 Order (s): EKG Electrocardiogram CPT Code: 94856 Report Number: [id number] Reason for Exam: CP Sinus rhythm with 1st degree A-V block Rightward axis Right bundle branch block Left posterior fascicular block Low QRS voltages in precordial leads Dictated By: Jagjit Blum MD 11/21/21 18 26 Signed By: Jagjit Blum MD 11/22/211818 TD/TT: 11/21/21 1826Tech: [id number] cc: TIA; SOREN* Md Jesus MD; Cathleen Washington MD Report Dictated Date/Time Dictated By Status Radiology Report November 23, 2021 10:26am Saulo Mcnulty MD completed [facility] [address] [place] [address] Patient Name: Joaquín Barrientos [facility] rd#: [id number] Address: [address] [place] [address] 85 City/State/Zip: [place] [address]: Ethan Washington MD Insurance: [facility] /Age/Sex: 1960/61/M Self Pay Admit/Reg Date: 11/21/[address]: Caio Washington MD Location: [address] PCP: Md MELANIE Lee Date of Service: 11/23/21 Order (s): CT head/brain wo contrast CPT Code: 75469 Report Number: [id number] Reason for Exam: followup parietal lesio n lytic from 2019 CT head/brain wo contrast CLINICAL HISTORY: 61 years old Male wit h followup parietal lesion lytic from 2019 TECHNIQUE: Axial images from the base o f the skull to the vertex are obtained. COMPARISON: 01/19/2019 FINDINGS: This area hyperdensity within the left frontal lobe, similar to the previous exam. Mild periventricular whit e matter changes are present. There is no evidence of intracranial hemorrhage, midline shift or mass-effect. The ventricles and sulci are unremarkable. T here are no extra-axial fluid collections. There are no fluid levels i n the paranasal sinuses. The lytic process within the left parietal lobe se en on the previous exam appears less conspicuous. There is new bone formation in its periphery with increased bony matrix centrally. IMPRESSION: No evidence of acute intracranial proce ss. Stable hyperdense area within the left frontal lobe possibly due to dystrophic calcification. Mild chronic small vessel ischemic ruffin ges. Interval increase in osseous matrix in previously seen osseous lesion within the left parietal skull which appears to be resolving. Automated exposure control and dose red uction techniques were utilized. Dictated By: Saulo Mcnulty MD 2 1026 Signed By: Saulo Mcnulty MD 11/24/21 0 558 TD/TT: 11/23/21 1026Tech: [id number] cc: HRSSPETE; PCPNO* Pcp-MD Renny; Cathleen Washington MD Vital Signs Vital Reading Result Reference Range Collection Date/ Time Height 177.8 cm November 20 11:25pm Weight 108.86 kg November 22 5:15am Body Temperature 97.5 [degF] 97.6-99.6 November 23 7:45am Heart Rate 77 /min 60-90 November 23 9:00am Respiratory rate 20 /min -November 23 7:45am Oxygen saturation by Pulse 98 % 95-100 Novus 2021 7:45am oximetry BP Systolic 127 mm[Hg] 90-140 November 23 7:45am BP Diastolic 86 mm[Hg] 60-90 November 23 7:45am BMI (Body Mass Index) 26.9 kg/m2 November 11:25pm Height 175.26 cm November 28 10:45pm Weight 108.86 kg November 28 10:45pm Body Temperature 97.7 [degF] 97.6-99.6 November 28 11:53pm Heart Rate 76 /min 60-90 November 28 11:53pm Respiratory rate 18 /min -November 28 11:53pm Oxygen saturation by Pulse 95 % 95-100 Novus 2021 11:53pm oximetry BP Systolic 120 mm[Hg] 90-140 November 28 11:53pm BP Diastolic 78 mm[Hg] 60-90 November 28 11:53pm BMI (Body Mass Index) 35.4 kg/m2 November 10:45pm Advance Directives Advance Directive Response Recorded Date/Time Pt has Medical Orders for Life Sustaining Tx Form No November 21, 2021 1:46pm (MOLST)? Advance Directives No November 21, 2021 1: 46pm Health Care Proxy Yes November 21, 2021 1: 46pm Advance Directives No November 28, 2021 9: 34pm Health Care Proxy No November 28, 2021 9: 34pm Insurance Providers Guarantor Joaquín Barrientos Address [address] [address] Contact Info. Home Phone: Payer Policy Id Coverage Id Subscriber's Subscriber Effective Expi ration Name Id Date Date [facility] [id number] Joaquín Floyd [id number] [facility] Medicare A&B [id number] Joaquín Barrientos [id number] Self Pay Self N/A Encounters Encounter Location(s) Arrival/Admit Date Discharge/Depart Date Provider(s) Discharged [facility] November 21, 2021 November 23, 2021 Zamora , Inpatient Medical 9:59am 4:58pm Center-3A Departed [facility] November 28, 2021 November 29, 2021 nul l Emergency Medical 9:07pm 12:08am Center-Emergency Dept Recent Diagnosis Onset Date Abdominal pain BPH (benign prostatic hyperplasia) Cardiac defibrillator in situ Chest pain Neck pain Tetralogy of Fallot Essential hypertension Mixed hyperlipidemia Paroxysmal atrial fibrillation Type 2 diabetes mellitus Functional Status Observation Response Date Recorded Assistive Devices None November 21, 2021 1: 46pm Ambulation Tolerance Good November 23, 2021 1 0:43am Bathing Type Self Care November 23, 2021 10 :43am Date of Last Bowel Movement 11/23/21 November 23, 2021 11:58am Oral Care Teeth Brushing November 23, 2021 10 :43am Mouth Rinse November 23, 2021 10 :43am Mental Status Observation Response Date Recorded Arousable To Name November 23, 2021 11 :58am Patient Behavior Appropriate November 23, 2021 11 :58am Cooperative November 23, 2021 11 :58am Comprehension Ability Understands Concepts November 23, 2021 11:58am Level of Consciousness Awake November 23, 2021 11:58am Alert November 23, 2021 11 :58am Appropriate November 23, 2021 11 :58am Follows Commands November 23, 2021 11 :58am Assessments Diagnosis Onset Date Resolution Status Abdominal pain acute BPH (benign prostatic hyperplasia) acute Cardiac defibrillator in situ ac dianne Chest pain acute Neck pain acute Tetralogy of Fallot chronic Essential hypertension chronic Mixed hyperlipidemia chronic Paroxysmal atrial fibrillation c hronic Type 2 diabetes mellitus chronic Plan of Treatment Future Tests Future scheduled test information is unavailable Pending Tests Test Name Date ordered VTE Risk Assessment Medical November 20, 2021 4:17am Future Visits Future appointment information is unavailable Referrals to Other Providers Reason for Referral Start Provider Provider Contact Provider Address Referral Date Information Pcp-Renny , Md MD TERESSA RUIZ Work Phone: [address] [place] [address] [address] [facility] [address] [place] [address] Wally Bertha Work Phone: [facility] Urology MD Diana [address], [address] [facility] [address] Future Procedures Procedure Name Scheduled Date Hospital Level of Care November 21, 2021 9:59am Discharge November 23, 2021 3:08pm Brace Affected Area November 20, 2021 2:51pm Cardiology Consult November 20, 2021 4:58am Saline Lock Insert/Manage November 20, 2021 1:18am Medical Record Request November 20, 2021 4:28am Notify Provider November 20, 2021 4:19am Oxygen Initiate/Maintain November 20, 2021 1:18am Post Discharge Follow Up November 23, 2021 3:08pm Orthopedics Consult November 20, 2021 10:55am Patient Preference for Pain Management November 20 4:17am Provider Order to Nurse November 20, 2021 4:19am Provider Order to Nurse November 20, 2021 1:56pm Continuous Pulse Oximetry November 20, 2021 1:18am Sequential Compression Device November 20, 2021 4:17am Urology Consult November 22, 2021 3:58pm Saline Lock Insert/Manage November 28, 2021 9:30pm Future Medications Future medication information is unavailable Patient Instructions Benign Prostatic Hyperplasia ED Pain, Acute, Uncertain Cause Goals Acute Goals FOLLOWUP WITH UROLOGY FOR BLADDER LESION AND FOR HEAD CT BECAUSE Bone Scan: No evidence of increased uptake in the r egion of C Increased uptake involving left parietal bone corresponding to 1.4 x 0.9 cm lobulated lytic lesion seen on head CT from January 19, 2019 of uncertain etiology, likely benign in the absence of known cancer. Repeat head CT is recommended to assess whether there is any significant change in the lytic lesion. Pelvis: 2.3 cm nodule in the posterior i nferior aspect of bladder wall versus prostate protrusion into the bladder. Prostate measures 4.7 x 3.4 x 4.3 cm. Questionable trace air in the anterior b ladder. Mild bladder wall thickening, measuring 6 mm in thickness. CAN OBTAIN LIDODERM PATCHES 4% OVER THE COUNTER NOTES FOR YOU TO KEEP AND FOR YOUR DOCTO R: 61 year old male with past medical histo ry of AICD, hypertension, morbid obesity, alcohol use disorder, neuropathic pain. Presents with left-sided chest pain real ly radiation to the back listless and hand numbness associated with cervical neck DJD and na usea Cardiology consult/CHEST PAIN: Chest pain due to High sensitivity troponins are negative x2 Telemetry monitoring I do not think that a stress test is ne cessary at this time as the patient's discomfort appears to be reproducible by abdominal manipulatio n. Given the patient's multiple risk factors, however, if he experiences further discomfort that i s not related to abdominal distension a nuclear stress test would be advised either during this hosp italization, or after he returns to the care of his paced a physician's. Paroxysmal atrial fibrillation previousl y on sotalol this was stopped due to prolonged QTC currently on metoprolol Continue metoprolol XL 100 mg q.a.m. AICD pacemaker has fired previously not recently initially placed in 2004, generator change in 2013 Hypertension Continue Toprol, lisinopril Alcohol use disorder only drank once preet uld not need medication for withdrawal Neuropathic pain Continue gabapentin Neck pain/left upper extremity tingling and weakness Patient Orthopedics He has been unable to follow at regular spine surgery Continue close monitoring 11/23: Follow-up 11/23/2021: Nuclear medicine b one scan has been completed. There is no evidence of increased uptake over the cervical spine . Fracture seen on CT scan likely chronic from a fall 2 years ago. Patient is otherwise neurolog ically intact. Appears his left upper extremity radicular symptoms have improved. No indication fo r acute orthopedic surgical spine intervention. Ortho Spine will sign off. Patient hard collar may be discontinued. However, the patient does have discomfort, may be used on an as-needed basis. CT Neck: Impression 2.3 cm nodule in the posterior inferior aspect of bladder wall versus prostate protrusion into the bladder. Direct examination or ULTRASOUN D is suggested to rule out bladder neoplasm. Mild bladder wall thickening. Question a ir in the bladder. Clinical correlation with cystitis. No urolithiasis. No hydroureteronephrosi s. No colonic diverticulitis. Bilateral pars defects of L5. Grade 2 an terolisthesis of L5 over S1. IMPRESSION: Subtle curvilinear lucency at the base o f the dens (sagittal bone window image, #39), suggesting age indeterminant nondisplaced odontoid type II fracture. No prior study available for comparison Overlying soft tissues and Axial skeleto n: Facet hypertrophy in the lower lumbar spine. Degenerative changes in the lower lumbar spine with d iffuse disc bulge. Bilateral pars defects of L5. Grade 2 an terolisthesis of L5 over S1. Exaggerated lumbar lordosis. Multilevel disc vacuum phenomena in the thoracolumbar spine. Bone Scan: IMPRESSION No evidence of increased uptake in the r egion of C Increased uptake involving left parietal bone corresponding to 1.4 x 0.9 cm lobulated lytic lesion seen on head CT from January 19, 2019 of uncertain etiology, likely benign in the absence of known cancer. Repeat head CT is recommended to assess whether there is any significant change in the lytic lesion. Abdominal pain/nausea Zofran CT and pelvis: Lung bases: Clear. Liver: The liver is unremarkable. Gallbladder: Unremarkable Pancreas: [Unremarkable Spleen: [Unremarkable Adrenal glands: [Unremarkable Kidneys: [Unremarkable Mesentery and retroperitoneum: There is no intraperitoneal free air, free fluid, or formed fluid collections. There are no enlarged mesen teric or retroperitoneal lymph nodes. [There is no aneurysmal dilatation of the abdominal a erickson. Bowel: [There are no dilated loops of scott wel or evidence of bowel obstruction. There is no abnormal bowel wall thickening or peribowel infla mmatory change. No acute appendicitis. A few diverticula in the sigmoid colon. No diverticulitis. Pelvis: 2.3 cm nodule in the posterior i nferior aspect of bladder wall versus prostate protrusion into the bladder. Prostate measures 4.7 x 3.4 x 4.3 cm. Questionable trace air in the anterior b ladder. Mild bladder wall thickening, measuring 6 mm in thickness. BLADDER US: pending Absence of falls Including: - Early & often mobilization when approp riate - Passive/active range of motion as appr opriate - toileting schedule implementation - implementation of fall risk interventi ons Cardiac rhythm stable Including: - Cardiac rhythm back to baseline or antoni eostasis Decrease in sensory misperception Including: - Assess for s/s of Hallucinations and I mpaired Sensory Perception - Reality Orientation - Diversional Activities - Promote Family Participation Alleviation of anxiety Including: -Utilization of coping skills -Demonstrates/verbalizes decreased anxie ty
--- OUTSIDE RECORDS SUMMARY | 2022-04-07 13:26 | XMS_ITS | Continuity of Care Document ---
:1960 Author Organization [facility] Address [address] [place] [address] Phone Support Name Relationship Address Phone Megha Aguayo Sister [address] [facility] [place] [address] Pcp-Renny, Primary Care Provider Unavailable Alissa Mckenna Emergency Provider [address] [facility] [place] [address] Gurjit Solomon Admit Provider [address] [facility] [place] [address] Allergies, Adverse Reactions, Alerts Allergen Type Severity Reaction Last Updated Verified Status atorvastatin Allergy Unknown Hives June 30, 2019 Yes Active peas Allergy Unknown Hives (Green Peas) June 30, 2019 Yes Active Medications Medication Status Dose Units Route Sig Qty Days Start End Instruct ions Date Date Acetaminophen Discontin 650 MG Oral EVERY April ued 6 , HOURS 2018 2019 1:19am 11:34am Albuterol Discontin 2 PUFF Inhalati EVERY April Sulfate ued on 4 , HOURS 2018 2019 1:19am 11:34am Amlodipine Active 2.5 MG Oral DAILY April 21, 2018 1:19am Aspirin Active 81 MG Oral DAILY April 21, 2018 1:19am Cyclobenzaprin Discontin 5 MG Oral THREE April e Hcl ued TIMES , A DAY 2018 2019 1:19am 11:30am Febuxostat Discontin 80 MG Oral DAILY April ued 2018 1:19am 11:30am Fluticasone 50 Discontin 1 PUFF Inhalati DAILY April nuary Mcg Disk ued on 2018 1:19am 1:28am Levothyroxine Active 75 MCG Oral 599 1:19am Lorazepam Discontin 0.5 MG Oral DAILY April ued 2018 1:19am 11:30am Metformin Discontin 500 MG Oral TWICE April ued A DAY 2018 MEALS 1:19am 11:30am Montelukast Discontin 10 MG Oral ONCE April Sodium ued DAILY , AT 2018 2019 BEDTIM 1:19am 11:30am E Omeprazole Discontin 20 MG Oral DAILY April ued 2018 1:19am 11:30am Sotalol Hcl Active 80 MG Oral TWICE April A DAY 2018 1:19am Trazodone HCl Discontin 50 MG Oral ONCE April ued DAILY , AT 2018 2019 BEDTIM 1:19am 11:30am E Fluticasone 50 Discontin 1 SPRAY Nasal TWICE April Mcg Nasal ued A DAY 2018 1:28am 11:30am Lisinopril Active 5 MG Oral DAILY June 30, 2019 11:29am Problems Active Problems Medical Problem Onset Date [...] Onset Date Status Closed head injury Resolved Procedures Procedure Date Performed Status EKG ED Electrocardiogram June 30, 2019 active XR chest 1V portable June 30, 2019 completed EKG Electrocardiogram June 30, 2019 completed Relevant Diagnostic Tests and/or Laboratory Data Laboratory Results Test Date/Time Result Interpretation Reference Result Perfo rming Range Comment Site Add-On Test June 29, [facility], [address] [facility] Request 2019 7:50am test [place] [address] White Blood Count June 29, 8.7 X10 4.5-11.0 [facility], [address] [place] [address] 2019 2:06am 3/uL [place] A 18907 Red Blood Count June 29, 4.78 X10 4.00-5.50 [facility], [address] [place] [address] 2019 2:06am 6/uL [place] A [address] Hemoglobin June 29, 12.5 12.0-17.0 [facility], [address] [place] [address] 2019 2:06am g/dl [place] A [address] Hematocrit June 29, 40.1 % 35.0-50.0 [facility], [address] [place] [address] 2019 2:06am [facility] A 14745 Mean Corpuscular June 29, 83.9 fl 80.0-100.0 [facility], [address] [place] [address] Volume 2019 2:06am [facility] A 33867 Mean Corpuscular June 29, 26.2 pg 27.0-34.0 [facility], [address] [place] [address] Hemoglobin 2020 2:06am [facility] 27394 Mean Corpuscular June 29, 31.2 31.0-36.0 [facility], [address] [place] [address] Hemoglobin Concent 2019 2:06am g/dl [facility] 55795 Red Cell June 29, 13.8 % 11.5-15.0 [facility] Katja [facility], [address] [place] [address] Distribution Width 2019 2:06am [facility] 43320 Platelet Count June 29, 127 X10 150-400 [facility], [address] [place] [address] 2019 2:06am 3/uL [facility] A 81841 Immature June 29, 1.3 % [facility], [address] [place] [address] Granulocyte % 2019 2:[place] [address] (Auto) Neutrophils (%) June 29, 61.7 % [facility], [address] [place] [address] (Auto) 2019 2:06am [facility] A 09113 Lymphocytes (%) June 29, 20.1 % [facility], [address] [place] [address] (Auto) 2019 2:06am [facility] A 82264 Monocytes (%) June 29, 9.0 % [facility], [address] [place] [address] (Auto) 2019 2:06am [facility] A 34358 Eosinophils (%) June 29, 6.4 % [facility], [address] [place] [address] (Auto) 2019 2:06am [place] M A 65783 Basophils (%) June 29, 1.5 % [facility], [address] [place] [address] (Auto) 2019 2:06am [place] M A 95440 Immature June 29, 0.11 X10 0.00-0.09 [facility], [address] [place] [address] Granulocyte # 2019 2:06am 3/uL [place] (Auto) Neutrophils # June 29, 5.4 X10 1.5-7.8 [facility], [address] [place] [address] (Auto) 2019 2:06am 3/uL [place] M A 85440 Lymphocytes # June 29, 1.8 X10 1.0-4.8 [facility], [address] [place] [address] (Auto) 2019 2:06am 3/uL [place] M A 57731 Monocytes # (Auto) June 29, 0.8 X10 0.0-0.8 [facility], [address] [place] [address] 2019 2:06am 3/uL [place] A 77261 Eosinophils # June 29, 0.6 X10 0.0-0.5 [facility], [address] [place] [address] (Auto) 2019 2:06am 3/uL [place] M A 16792 Basophils # (Auto) June 29, 0.1 X10 0.0-0.2 [facility], [address] [place] [address] 2019 2:06am 3/uL [place] A 35177 Hemoglobin A1c June 29, 6.5 4.3-5.9 [facility], [address] [place] [address] 2019 2:06am [place] M A 36254 Estimated Average June 29, 140 [facility], [address] [place] [address] Glucose (eAG) 2019 2:06am mg/dl Sin on Nucleated Red June 29, 0.0 /100 0.0-0.0 [facility], [address] [place] [address] Blood Cells % 2019 2:06am WBC Sin on Sodium Level June 29, 136 137-146 [facility], [address] [facility] 2020 2:06am mmol/L [facility] A 53007 Potassium Level June 29, 4.4 3.5-5.3 [facility], [address] [facility] 2020 2:06am mmol/L [facility] A 49039 Chloride Level June 29, 99 98-107 [facility], [address] [facility] 2020 2:06am mmol/L [facility] A 20470 Carbon Dioxide June 29, 23 23-32 [facility], [address] [facility] Level 2020 2:06am mmol/L [facility] A 32145 Anion Gap June 29, 14 5-[address] [facility], [address] [facility] 2020 2:06am mmol/L [facility] A 96408 Blood Urea June 29, 22 mg/dl 5-25 [facility], [address] [facility] Nitrogen 2019 2:06am [facility] A 74751 Creatinine June 29, 1.3 0.6-1.4 [facility], [address] [place] [address] 2020 2:06am mg/dL [facility] A 71868 Estimated June 29, 74.6 This value [facility], [address] [place] [address] Creatinine 2020 2:06am ml/min is [facility] 55567 Clearance calculated by Cockcroft Gault Equation using ideal body weight. This result is dependent on an accurate patient height and weight which is obtained from patients medical record. Nashcroft, D.W. and M.H. Gault. Prediction of creatinine clearance from serum creatinine. Nephron. 1976. 16(1):31-41 . Estimated GFR June 29, > 60 >60 [facility], [address] [facility] () 2020 2:06am [place] [address] Estimated GFR June 29, > 60 >60 [facility], [address] [place] [address] (Non- 2020 2:06[place] [address] Irish BUN/Creatinine June 29, 16.9 10.0-20.0 [facility], [address] [facility] Ratio 2019 2:06am [place] A 11839 Glucose Level June 29, 172 70-100 [facility], [address] [place] [address] 2019 2:06am mg/dL Kory Mendosa 09622 Calcium Level June 29, 8.4 8.6-10.3 [facility], [address] [place] [address] 2019 2:06am mg/dl [place] 13592 Phosphorus Level June 29, 4.1 2.5-4.5 [facility], [address] [place] [address] 2019 2:06am mg/dL K[place]osa 71727 Magnesium Level June 29, 1.8 1.8-2.5 [facility], [address] [place] [address] 2019 2:06am mg/dL Kory [place]osa 89914 Total Bilirubin June 29, 0.3 <1.2 [facility], [address] [place] [address] 2019 2:06am mg/dl K[place]osa 71943 Direct Bilirubin June 29, < 0.2 <0.5 [facility], [address] [place] [address] 2019 2:06am mg/dl Kory Mendosa 63026 Aspartate Amino June 29, 16 U/L 15-41 [facility], [address] [place] [address] Transf (AST/SGOT) 2019 2:06am Kory VILLALOBOS 08789 Alanine June 29, 14 U/L 14-63 [facility], [address] [place] [address] Aminotransferase 2019 2:06[place] [address] (ALT/SGPT) Creatine Kinase MB June 29, 2.0 0.0-6.0 [facility], [address] [place] [address] 2019 9:50am ng/ml Kory Mendosa 72420 Troponin T June 29, < 0.01 [facility], [address] [place] [address] 2019 9:50am ng/ml K[place]osa 49259 Total Protein June 29, 7.0 g/dL 6.4-8.3 [facility], [address] [place] [address] 2019 2:06am Kory Mendosa 59009 Albumin June 29, 4.1 g/dl 4.0-5.0 [facility], [address] [place] [address] 2019 2:06am [facility] A 79950 Albumin/Globulin June 29, 1.4 1.0-2.6 [facility], [address] [place] [address] Ratio 2019 2:06am [facility] A 83551 Triglycerides June 29, 134 <150 <=150 mg/dL [facility], [address] [place] [address] Level 2019 2:06am mg/dL = Desirable [facility] 98514 Cholesterol Level June 29, 177 <200 <200 mg/dL [facility], [address] [place] [address] 2019 2:06am mg/dl = Desirable [facility] 91651 LDL Cholesterol, June 29, 99 mg/dl <130 [facility], [address] [place] [address] Calculated 2019 2:06am [facility] 75201 HDL Cholesterol June 29, 51 mg/dL >40 < 40 mg/dl: [facility], [address] [place] [address] 2019 2:06am Low [facility] A 62971 HDL-cholest enmanuel(major risk factor for CHD)>/= 60 mg/dl: High HDL-cholest enmanuel(negati ve risk factor for CHD)HDL-cho lesterol is affected by a number of factors, e.g., smoking, excercise, hormones, sex and age. Cholesterol Ratio June 29, 1.9 LDL/HDL [facility], [address] [place] [address] (LDL/HDL) 2019 2:06am Interpretat [facility] 31605 ion:Ratio Men Women1/2 Average 1.00 1.47Average 3.55 3.222X Average 6.25 5.033X Average 7.99 6.14 Cholesterol/HDL June 29, 3.5 Cholesterol [facility], [address] [place] [address] Ratio 2019 2:06am /HDL [facility] A 74899 Interpretat ion: Ratio Men Women 1/2 Average 3.43 3.27 Average 4.97 4.44 2X Average 9.55 7.05 3X Average 23.39 11.04 Alkaline June 29, 81 U/L 40-[address] [facility], [address] [place] [address] Phosphatase 2019 2:06am [facility] 30514 Diagnostic Imaging Reports Report Dictated Date/Time Dictated By Status Communication Report April 21, 2018 1:32pm Service Allscript s completed [address] [address] CDI Assessment Signed Patient: WASHINGTON SARABIA Medical Record#: [id number] : 1960 Acct:[id number] Age/Sex: 58 / M Admit/Reg Date: 04/20/18 Loc: 3NE. Room: [place] [address] Report Number : [id number]: Sharmin Amanda MD PT : WASHINGTON SARABIA : 1960 ACCT: [id number] ADMIT DATE: 04-20-2018 Dictated By: Maya Su Signed By: Maya Su 04/21/18 1 332 DD/ 1332 TD/TT: 04/21/18 133 Cutter First: Maria Elena Peterson cc: * Case Management Initial April 21, 2018 2:23pm Service Allscr ipts completed Assessment [address] [address] Initial Discharge Planning Signed Patient: WASHINGTON SARABIA Medical Record#: [id number] : 1960 Acct:[id number] Age/Sex: 58 / M Admit/Reg Date: 04/20/18 Loc: 3NE. Room: [place] [address] Report Number : [id number]: Sharmin Amanda MD Patient Name: WASHINGTON SARABIA MRN: [id number] Acct Number: [id number] : 1960 Age: 58 Admission Information Patient Type: INPATIENT Admit Date: 04/20/2018 Admit Time: 20:1 5 Admit Reason: CHEST PAIN Unit: 3NE. Bed: [place] [address] Discharge Disposition: Xfer to [facility] 7.Initial Discharge Planning Assessment Created by : Ana alas Date/Time 2018-04-21 14:21:09.000 Initial Discharge Planning Assessment Interviewed:: Patient Prior Functional Status: Independent Have you ever served in the [employer]?: No Living Situation / Support System: Home less Anticipated Discharge Discussed With: P atient Anticipated Discharge Plan: Psych Facil ity (Inpatient) Note: Patient sleeping at time of CM vi sit, answering CM questions minimally. Patient was on an inpatient Psychiatry floor before being transferred to medicine. [facility] PCP [facility] at [facility]. Per EMR, patient is homeless and patient's Megha peña ([phone]) is listed as patient's contact. Patient will like ly be discharged back to inpatient psych when medically cleared. Will cont inue to follow. Electronically signed by: Ana castillo Electronically signed on: 2018-04-21 Dictated By: Maya Su Signed By: Maya Su 04/21/18 1 423 DD/DT: TD/TT: Cutter First: [id number] cc: * Radiology Report April 21, 2018 3:56pm Grant Bashir MD [address] [address] Patient Name: WASHINGTON SARABIA [address]#: [id number] Address: [address] [place] [address] Account#: [id number] City/State/Zip: [place], [place] [address] : Sharmin Amanda MD [facility] /Age/Sex: 1960/58/M Self Pay Admit/Reg Date: 04/20/[address]: Gume Mckeon MD [facility][id number] PCP: Md Jesus Date of Service: 04/20/18 Order (s): XR chest 2V CPT Code: 08967 Report Number: [id number] Reason for Exam: chest pain CHEST (2 views) (30010) History: chest pain Findings: The heart size is within normal limits with a tortuous aorta. The lungs are clear. There is no confluent infiltrate or effusion. There is multilead cardiac pacemaker. IMPRESSION: No acute process seen. No ED interpretation available. Dictated By: Grant Bashir MD 1555 Signed By: Grant Sanchez MD 7 TD/TT: 04/21/18 1556Tech: [id number] cc: Germania Mckeon MD; Md Jesus ; Kylah Amanda MD* Radiology Report June 30, 2019 12:41pm [place] [address] Patient Name: Washington Sarabia [facility] rd#: [id number] Address: [address] [place] [address] Account#: [id number] City/State/Zip: [place] [address]: Gurjit Solomon MD Insurance: [facility] /Age/Sex: 1960/59/M Self Pay Admit/Reg Date: 06/30/[address]: Kylah Limon MD Location: S6W./WA0568-M PCP: Md Jesus Date of Service: 06/30/19 Order (s): XR chest 1V portable CPT Code: 44355 Report Number: [id number] Reason for Exam: Chest Pain CLINICAL INDICATION: Chest pain. ED INTERPRETATION: Cardiomegaly. PORTABLE UPRIGHT CHEST: 06/30/20192019 2:18 AM. The lungs are clear. Top normal heart size. Mediastinum unremarka ble. Cardiac pacer with 3 leads from left chest in good position. No change c ompared with 01/18/2019 . Dictated By: Kali Gayle MD 06/30/191240 Signed By: Kali Gayle MD 06/30/191241 TD/TT: 06/30/191240Tech: [id number] cc: RICO; SOREN; PRUSU* Gurjit Solomon MD; PcpMd Alex ; Esperanza Limon MD Case Management Notes June 30, 2019 12:53pm Service Allscript s [address] Assessment Note Signed Patient: Washington Sarabia Medical Record#: [id number] : 1960 Acct:[id number] Age/Sex: 59 / M Admit/Reg Date: 06/30/19 Loc: [facility]. Room: [address] Report Number : [id number]: Gurjit Solomon MD Patient Name: Washington Sarabia MRN: [id number] Acct Number: [id number] : 1960 Age: 59 Admission Information Patient Type: INPATIENT OBSERVATION Admit Date: 06/30/2019 Admit Time: 05:5 9 Admit Reason: CHEST PAIN R/O MA,PACEMAK ER FIRED X3 Unit: [address] Bed: [address] Discharge Disposition: Home, Self-Care 3. Case Management Note Created by : Celio Redman Date/Time 06-29 12:52:07.000 Note: reports Pt is medically stable to discharge back to [facility]: [facility], [place], [place] today. [facility] requested a copy of his discharge paperwork when he discharges; patient r eports he will walk over from ED when cleared, nurse may provide assista nce to get him there. SW will fax at time of discharge. All in agreement wit h discharge plan. Electronically signed by: Celio Redman Electronically signed on: 2019-06-30 Dictated By: Maya Su Signed By: Maya Su 06/30/19 1 253 DD/DT: TD/TT: Cutter First: [id number] cc: * Advance Directives Advance Directive Response Recorded Date/Time Pt has Medical Orders for Life Sustaining Tx No April 21, 2018 12:53am Form (MOLST)? Advance Directives No June 30, 2019 10: 38am Health Care Proxy Yes June 30, 2019 10: 38am Chief Complaint and Reason for Visit Chief Complaint CHEST PAIN R/O MA,PACEMAKER FIRED X3 Reason for Visit Chest pain, rule out acute m yocardial infarction Mood disorder Pacemaker complications Encounters Encounter Location(s) Arrival/Admit Date Discharge/Depart Date Provider(s) Discharged [facility] April 21, 2018 April 21, 2018 [facility] 1:03am 2:35pm MD Ina Discharged [facility] June 30, 2019 June 30, 2019 Cristina monete A Inpatient Medical 5:59am 3:57pm MD Juanito [address] Recent Diagnosis Onset Date Chest pain, rule out acute myocardial infarction Mood disorder Pacemaker complications Assessments Diagnosis Onset Date Resolution Status Chest pain, rule out acute myocardial infarction acute Mood disorder acute Pacemaker complications acute Functional Status Observation Response Date Recorded Assistive Devices None June 30, 2019 10: 38am Goals Acute Goals Dear Mr. Sarabia, You presented to our hospital with chest pain. We have interrogated your device and you were not shocked. It did not show any arrhythmia to explain your symptoms. Elektrocardiogram of your heart and heart enzymes were also checked and they ruled out a heart attack. You will be discharged back to your [facility] ite. No changes were made to your medication regimen. You were also evaluated by psychiatry an d they do not believe you have any active suicidal ideation. They recommended that you be discharged back to the respite. Please continue taking all your medicati ons as before. You prefer to follow up with cardiology at [facility]. Please call [phone] or [phone] to make an appointment with cardiology at [facility], Dr. Kali Richardson or Dr. Mack Candelaria. We have left a voicemail for their office for this appo intment. Please follow up with your PCP in a week . It was a pleasure taking care of you! Mental Status Observation Response Date Recorded Patient Behavior Appropriate June 30, 2019 11: 50pm Cooperative June 30, 2019 11: 50pm Medical Equipment No Medical Equipment Information available Insurance Providers Guarantor Washington Sarabia Address [address] [place] [address] Contact Info. Home Phone: Payer Policy Id Coverage Id Subscriber's Subscriber Effective Expi ration Name Id Date Date [facility] [id number] WASHINGTON SARABIA [id number] Care [place] Self Pay Self N/A Plan of Treatment Future Tests Future scheduled test information is unavailable Pending Tests Pending diagnostic test information is unavailable Future Visits Future appointment information is unavailable Referrals to Other Providers Reason for Referral Start Provider Provider Contact Provider Address Referral Date Information Md Pcp-None Future Procedures Future procedure information is unavailable Future Medications Future medication information is unavailable Patient Instructions Patient instructions are unavailable Social History Smoking Status Status Date of Observation Never smoked tobacco (finding) June 30, 2019 6:38am Observation Status Observation Response Date of Response Lives With Other June 30, 2019 6:3 8am Assigned Sex Male Vital Signs Vital Reading Result Reference Range Collection Date/ Time Height 175.26 cm June 30, 2019 10:07am Weight 110.40 kg June 30, 2019 10:13am Body Temperature 97.8 [degF] 97.6-99.6 June 29 0 11:59am Heart Rate 78 /min 60-90 June 30, 2019 11:59am Respiratory rate 118 /min 12-24 June 29 0 11:59am Oxygen saturation by Pulse 100 % 95-100 June 30, 2019 11:59am oximetry BP Systolic 111 mm[Hg] 90-140 June 30, 2019 11:59am BP Diastolic 68 mm[Hg] 60-90 June 30, 2019 11:59am BMI (Body Mass Index) 35.9 kg/m2 June 10:07am
--- OUTSIDE RECORDS SUMMARY | 2022-04-07 13:26 | XMS_ITS | Continuity of Care Document ---
:[address] [facility] Address [address] [place] [address] Phone Care Team Providers Name Role Phone Pcp-None, MD Singh Primary Care Provider Unavailable Pcp-None, MD Singh Family Provider Unavailable Hospitalist, Model (IS ONLY) Emergency Provider Unavailable MD Juan Andersen Other Provider MD Cathleen Washington Attending Provider MD Louie Hart Other Provider MD Camilla Padtimothy Other Provider Chief Complaint and Reason for Visit Chief Complaint CHEST PAIN Reason for Visit Abdominal pain 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 Chest pain Neck pain Tetralogy of Fallot Essential hypertension Mixed hyperlipidemia Paroxysmal atrial fibrillati on Type 2 diabetes mellitus Allergies, Adverse Reactions, Alerts Allergen Type Severity Reaction Last Updated Verified Status atorvastatin Allergy Unknown Hives November 20, Yes Acti ve 2021 1:32am peas Allergy Unknown Hives (Green Peas) November 20, Yes Active 2021 1:32am Social History Smoking Status Status Start Date End Date Date of Observat ion Never smoked tobacco (finding) M arch 2019 6:38am Observation Status Observation Response Date of Response Lives With Other November 21, 2021 1: 46pm Living Situation [facility] November 21, 2021 12 :13pm Additional Data Assigned Sex Male Problems Active [...] 1 SPRAY NASAL TWICE A DAY April rch Propionate ued 2018 1:00am 11:30a m Isosorbide Active 30 MG PO DAILY November Mononitrate , (Imdur) 30 mg 2021 Tablet 12:00am Extended Release 24 Hr Metoprolol Active 100 MG PO DAILY November 12:00am Olanzapine Active 2.5 MG PO TWICE A DAY November 20, 2021 12:00am Aspirin Active 81 MG PO DAILY November 20, 2021 12:00am Levothyroxine Active 75 MCG PO DAILY November 20, 2021 12:00am Gabapentin Active 300 MG PO TWICE A DAY November 20, 2021 12:00am Albuterol Active 1 INH INH FOUR TIMES November Sulfate DAILY 2021 12:00am Lisinopril Active 2.5 MG PO DAILY November 20, 2021 12:00am Naproxen Active 500 MG PO TWICE A DAY November 20, 2021 12:00am Cyclobenzapri Active 5 MG PO DAILY November 12:00am Trazodone Active 100 MG PO ONCE DAILY November AT BEDTIME 2021 12:00am Melatonin Active 5 MG PO ONCE DAILY November AT BEDTIME 2021 12:00am Procedures Procedure Date Performed Status [...] head/brain wo contrast November 23, 2021 9:22am active Relevant Diagnostic Tests and/or Laboratory Data Laboratory Results Test Date/Time Result Interpretation Reference Result Perfo rming Range Comment Site Add-On Test November [facility] Request 2021 test [address] [facility] 3:59pm Romeo [place] [address] White Blood November 5.6 X10 4.5-11.0 [facility] Count 2021 3/uL [address] [facility] 8:20am [place]o [place] [address] Red Blood Count November 3.95 X10 4.00-5.50 [facility] 2021 6/uL [address] 8:20am [place] [address] Hemoglobin November 12.0 g/dl 12.0-17.0 [facility] [address] 8:20am [place] [address] Hematocrit November 36.9 % 35.0-50.0 [facility] [address] 8:20am [place] [address] Mean November 93.4 fl 80.0-100.0 [facility] Corpuscular 2021 [address] [facility] [address] Volume 8:20am [place] [address] Mean November 30.4 pg 27.0-34.0 [facility] Corpuscular 2021 [address] [facility] [address] Hemoglobin 8:20[place] [address] Mean November 32.5 g/dl 31.0-36.0 [facility] Corpuscular 2021 [address] [facility] [address] Hemoglobin 8:20[place] [address] Concent Red Cell November 12.6 % 11.5-15.0 [facility] Distribution [address] Width 8:20am [place] [address] Platelet Count November 90 X10 150-400 [facility] 2021 3/uL [address] [facility] 8:20am [place] [address] Immature November 1.1 % [facility] Granulocyte % 2021 [address] [facility] (Auto) 8:20am [place] [address] Neutrophils (%) November 62.7 % [facility] (Auto) 2021 235 [facility] 8:20am [place] [address] Lymphocytes (%) November 18.8 % [facility] (Auto) 2021 235 [facility] 8:20am [place] [address] Monocytes (%) November 9.8 % [facility] (Auto) 2021 [address] [facility] 8:20am [place] [address] Eosinophils (%) November 6.2 % [facility] (Auto) 2021 235 [facility] 8:20am [place] [address] Basophils (%) [place] 1.4 % [facility] (Auto) 2021 [address] [facility] 8:20am [place] [address] Immature [place] 0.06 X10 0.00-0.09 [facility] Granulocyte # 2021 3/uL [address] [facility] (Auto) 8:20am [place] [address] Neutrophils # [place] 3.5 X10 1.5-7.8 [facility] (Auto) 2021 3/uL 235 [facility] 8:20am [place] [address] Lymphocytes # [place] 1.1 X10 1.0-4.8 [facility] (Auto) 2021 3/uL [address] [facility] 8:20am [place] [address] Monocytes # [place] 0.6 X10 0.0-0.8 [facility] (Auto) 2021 3/uL [address] [facility] 8:20am [place] [address] Eosinophils # [place] 0.4 X10 0.0-0.5 [facility] (Auto) 2021 3/uL [address] [facility] 8:20am [place] [address] Basophils # [place] 0.1 X10 0.0-0.2 [facility] (Auto) 2021 3/uL [address] [facility] 8:20am [place] [address] Hemoglobin A1c November 6.6 4.3-5.9 [facility] 2021 [address] [facility] 6:10am [place] [address] Estimated [place] 143 mg/dl [facility] Average Glucose 2021 235 [facility] (eAG) 6:10am [place] [address] Nucleated Red November 0.0 /100 0.0-0.0 [facility] Blood Cells % 2021 WBC [address] [facility] 8:20am [place] [address] Prothrombin [place] 11.1 9.3-12.1 [facility] Time 2021 Seconds 235 [facility] 5:31am [place] [address] Prothromb Time November 1.0 0.9-1.2 Reference Interval is for non-anticoagulated patients. [facility] International 2021 Suggested I NR Therapeutic Range for Vitamin K antogonist therapy: [address] [place] [address] Ratio 5:31am LEVELS [place] [address] THERAPY INDICATIONS TARGET INR RANGE Standard Dose Venous Thrombosis, 2.0 - 3.0 Atrial Fibrillation , Pulmonary Embolism. High Dose Valvular H eart Disease, 2.5 - 3.5 Mechanical Heart, Intracardiac Thromb osis. Sodium Level November 141 137-146 [facility] 2021 mmol/L 235 [facility] 6:10am [place] [address] Potassium Level November 4.2 3.5-5.3 [facility] 2021 mmol/L [address] [place] [address] 6:10am [place] [address] Chloride Level November 102 98-107 [facility] 2021 mmol/L [address] [place] [address] 6:10am [place] [address] Carbon Dioxide November 26 mmol/L -32 [facility] Level 2021 235 [facility] 6:10am [place] [address] Anion Gap November 13 mmol/L -15 [facility] [address] [place] [address] 6:10am [place] [address] Blood Urea November 16 mg/dl -25 [facility] Nitrogen 2021 235 [facility] 6:10am [place] [address] Creatinine November 1.1 mg/dL 0.6-1.4 [facility] 2021 235 [facility] 6:10am [place] [address] Estimated November 74.7 This value [facility] Creatinine 2021 ml/min is calculated [address] [place] [address] Clearance 6:10am [place] [address] Gault Equation using ideal body weight. This result is dependent on an accurate patient height and weight which is obtained from patients medical record. Mukeshoflaura D.W. [employer]. Gault. Prediction of creatinine clearance from serum creatinine. Nephron. 1976. 16(1):31-41. Estimated GFR November 85 >60 [facility] ( 2021 235 [facility]) 6:10am [place] [address] Estimated GFR November 73 >60 [facility] (Non- 2021 [address] [facility] 6:10am [place] [address] BUN/Creatinine November 14.5 10.0-20.0 [facility] Ratio 2021 235 [facility] 6:10am [place] [address] Glucose Level November 106 mg/dL 70-100 [facility] 2021 [facility] 6:10am [place] [address] Calcium Level November 8.6 mg/dl 8.6-10.3 [facility] 2021 235 [facility] 6:10am [place] [address] Troponin T High November 13 ng/L <13 Normal range: Females <9 ng/L [facility] Sensitivity 2021 Males <14 ng/L 2 35 [facility] 12:10am [place] [address] Values greater than or equal to 52 [...] the TONI score for the inpatient setting). Prostate November 0.[address] [facility] Specific 2021 ng/ml [address] Antigen 12:10am [facility] [address] Thyroid November 4.83 0.34-5.60 [facility] Stimulating 2021 uIU/mL [address] [facility] Hormone (TSH) 8:20am [facility] [address] Bedside Glucose November 165 mg/dl 70-100 NOTE: Any discrepancy between finger stick glucose result [facility] 2021 and patient's clin ical presentation should be 235 [facility] 11:31am confirmed by the la boratory. [facility] [address] Diagnostic Imaging Reports Report Dictated Date/Time Dictated By Status Radiology Report November 20, 2021 9:08am Deniz Silva MD comp leted [facility] Care [address] [place] [address] Patient Name: Joaquín Barrientos [facility] rd#: [id number] Address: [address] [place] [address] 85 City/State/Zip: [place] [address]: Laura [place] MD Insurance: [facility] /Age/Sex: 1960/61/M Self Pay Admit/Reg Date: 11/20/[address]: Haris Bradshaw DO Location: ED.ING/GSXFR-7 PCP: Md MELANIE Lee Date of Service: 11/20/21 Order (s): XR chest 2V CPT Code: 40501 Report Number: [id number] Reason for Exam: Chest Pain EXAM: Chest radiograph frontal and later al views INDICATION: Chest pain COMPARISON: Portable chest radiograph f rom 06/30/2019. FINDINGS/IMPRESSION: Stable size of the cardiac silhouette w ith unchanged appearance of left-sided pacemaker. Mild pulmonary vascular conge stion. Right and left lower lobe opacities could represent atelectasis or developing infection/pneumonia. No pleural effusions or pneumothorax. Dictated By: Deniz Sliva MD 11/20/21 0 908 Signed By: Deniz Silva MD 11/20/21 0913 TD/TT: 11/20/21 0908Tech: [facility] cc: TASHA; SHAYESPNABIL; CRYSTAL Lee MD; Cathleen [place] MD; Vince Bradshaw DO Report Dictated Date/Time Dictated By Status Electrocardiogram November 20, 2021 Warren Rivas MD completed [facility] [address] [place] [address] Patient Name: Floyd,[facility] [place] rd#: [id number] Address: [address] [place] [address] 85 City/State/Zip: [place] [address]: Laura Washington MD Insurance: [facility] /Age/Sex: 1960/61/M Self Pay Admit/Reg Date: 11/20/[address]: Haris Bradshaw DO Location: ED.[place] [address] PCP: Md MELANIE Lee Date of Service: 11/20/21 Order (s): EKG ED Electrocardiogram CPT Code: 29933 Report Number: [id number] Reason for Exam: Chest Pain SINUS RHYTHM RIGHT BUNDLE BRANCH BLOCK LEFT POSTERIOR FASCICULAR BLOCK Dictated By: Warren Rivas MD 11/20/21 Signed By: Warren Rivas MD 11/20/21 1442 TD/TT: 11/20/21 1441Tech: cc: TASHA; CRYSTAL Lee MD; Titus Bradshaw DO Report Dictated Date/Time Dictated By Status Radiology Report November 20, 2021 1:35pm Titus Martinez MD compl eted [facility] [address] [place] [address] Patient Name: Joaquín Barrientos [facility] rd#: [id number] Address: [address] [place] [address] 85 City/State/Zip: [place] [address]: Laura [place] MD Insurance: [facility] /Age/Sex: 1960/61/M Self Pay Admit/Reg Date: 11/20/[address]: Caio [place] MD; DAKOTA Mariano Location: ED.ING/GSXFR-7 PCP: Pcp-Md MELANIE Lawson Date of Service: 11/20/21 Order (s): CT abd pelvis wo/w contrast; CT cervical spine wo contrast CPT Code: 79229; 75375 Report Number: [id number] Reason for Exam: hx cervical fracture in past. neck pain PROCEDURE: CERVICAL SPINE CT HISTORY: Neck pain. History of cervical fracture. COMPARISON: None TECHNIQUE: Noncontrast CT of the cervic al spine.Multiplanar imaging was reviewed. CT technique involves the adju stment of the mA and/or kV according to patient size. MIPS Measure #361 Patient Exposure to Ionizing Radiation was submitted to [employer] (ACR) Elizabeth onal Data [...] Exposure to Ionizing Radiation was submitted to [facility] [employer] (ACR) [facility] Radiology Data Registry (NRDR) and MIPS Measure [...] Martinez MD 11/20/21 1452 TD/TT: 11/20/21 1335Tech: [id number] cc: TIA; DEANNE; CRYSTAL Lee MD; Cathleen [place] MD; Ceferino Shannon, PAC Report Dictated Date/Time Dictated By Status Radiology Report November 21, 2021 4:29pm Fer Lopez MD com [address] [address] Patient Name: Joaquín Barrientos [facility] rd#: [id number] Address: [address] [place] [address] City/State/Zip: [place] [address]: Laura [place] MD Insurance: [facility] /Age/Sex: 1960/61/M Self Pay Admit/Reg Date: 11/21/[address]: Caio [place] MD Location: 3A.GS/HX479-[id number] PCP: Md MELANIE Lee Date of Service: 11/21/21 Order (s): US bladder CPT Code: 07576 Report Number: [id number] Reason for Exam: possible tumor per [...] prostate gland. Dictated By: Fer Lopez MD 11/21/219 Signed By: Fer Lopez MD 11/21/21 164 1 TD/TT: 11/21/21 1629Tech: [id number] cc: HRSSPETE; PCPNO* Pcp-MD Renny; Cathleen [place] MD Report Dictated Date/Time Dictated By Status Radiology Report November 22, 2021 5:27pm Eduar Monzon MD [place] [address] [place], [place] [address] Patient Name: Joaquín Barrientos [place] [address]#: [id number] Address: [address] [place] [address] City/State/Zip: [place] [address]: Laura Washington MD Insurance: [facility] /Age/Sex: 1960/61/M Self Pay Admit/Reg Date: 11/21/[address]: Caio [place] MD Location: 3A./SE726-C PCP: Md MELANIE Lee Date of Service: 11/22/21 Order (s): NM bone scan whole body CPT Code: 25634 Report Number: [id number] Reason for Exam: c2 fracture THREE [...] By: Eduar Monzon MD 11/22/211736 TD/TT: 11/22/211726Tech: [facility] cc: HRSSPETE; PCPNO* Md Jesus MD; Cathleen [place] MD Report Dictated Date/Time Dictated By Status Electrocardiogram November 20, 2021 1:40am Jagjit Blum MD [place] [address] [place] [address] Patient Name: Joaquín Barrientos [facility] rd#: [id number] Address: [address] [place] [address] City/State/Zip: [place] [address]: Laura Washington MD Insurance: [facility] /Age/Sex: 1960/61[birth year]M Self Pay Admit/Reg Date: 11/21/[address]: Olga Azul Location: 3A.GS/BA288-Q PCP: Md MELANIE Lee Date of Service: 11/20/21 Order (s): EKG ED Electrocardiogram CPT Code: 03353 Report Number: [id number] Reason for Exam: CP Sinus rhythm Right axis deviation Right bundle branch block Left posterior fascicular block Low QRS voltages in precordial leads Dictated By: Jagjit Blum MD 11/20/21 40 Signed By: Jagjit Blum MD 11/22/211817 TD/TT: 11/20/21 0140Tech: [facility] cc: E/R; PCPNO* E/R Physician,E ; Md Jesus MD Report Dictated Date/Time Dictated By Status Electrocardiogram November 21, 2021 6:26pm Jagjti Blum MD [place] [address] [place] [address] Patient Name: Joaquín Barrientos [facility] rd#: [id number] Address: [address] [place] [address] City/State/Zip: [place] [address]: Laura Washington MD Insurance: [facility] /Age/Sex: 1960/61/M Self Pay Admit/Reg Date: 11/21/[address]: Caio [place] MD Location: [address] [place] [address] PCP: Md MELANIE Lee Date of Service: 11/21/21 Order (s): EKG Electrocardiogram CPT Code: 25017 Report Number: [id number] Reason for Exam: CP Sinus rhythm with 1st degree A-V block Rightward axis Right bundle branch block Left posterior fascicular block Low QRS voltages in precordial leads Dictated By: Jagjit Blum MD 11/21/21 Signed By: Jagjit Blum MD 11/22/211818 TD/TT: 11/21/211825Tech: [facility] cc: HRSSPETE; PCPJUAN Lee MD; Cathleen [place] MD Vital Signs Vital Reading Result Reference Range Collection Date/ Time Height 177.8 cm November 20 11:25pm Weight 108.86 kg November 22 5:15am Body Temperature 97.5 [degF] 97.6-99.6 November 23 7:45am Heart Rate 83 /min 60-90 November 23 7:45am Respiratory rate 20 /min 12-24 November 23 7:45am Oxygen saturation by Pulse 98 % 95-100 Augus t 2021 7:45am oximetry BP Systolic 127 mm[Hg] 90-140 November 23 7:45am BP Diastolic 86 mm[Hg] 60-90 November 23 7:45am BMI (Body Mass Index) 26.9 kg/m2 November 11:25pm Advance Directives Advance Directive Response Recorded Date/Time Pt has Medical Orders for Life Sustaining Tx Form No November 21, 2021 1:46pm (MOLST)? Advance Directives No November 21, 2021 1: 46pm Health Care Proxy Yes November 21, 2021 1: 46pm Insurance Providers Guarantor Joaquín Barrientos Address [address] [place] [address] Contact Info. Home Phone: Payer Policy Id Coverage Id Subscriber's Subscriber Effective Expi ration Name Id Date Date [facility] [id number] Joaquín Barrientos [id number] [place] Self Pay Self N/A Encounters Encounter Location(s) Arrival/Admit Date Discharge/Depart Date Provider(s) Admitted [facility] November 21, 2021 Cathleen savage , Inpatient Medical 9:59am Center-3A Recent Diagnosis Onset Date Abdominal pain Cardiac defibrillator in situ Chest pain Neck pain Tetralogy of Fallot Essential hypertension Mixed hyperlipidemia Paroxysmal atrial fibrillation Type 2 diabetes mellitus Functional Status Observation Response Date Recorded Assistive Devices None November 21, 2021 1: 46pm Ambulation Tolerance Good November 22, 2021 9 :28pm Bathing Type Self Care November 22, 2021 9: 28pm Date of Last Bowel Movement 11/21/21 November 22, 2021 9:31pm Oral Care Teeth Brushing November 22, 2021 9: 28pm Mouth Rinse November 22, 2021 9: 28pm Mental Status Observation Response Date Recorded Arousable To Name November 22, 2021 9: 31pm Patient Behavior Appropriate November 22, 2021 9: 31pm Cooperative November 22, 2021 9: 31pm Comprehension Ability Understands Concepts November 22, 2021 9:31pm Level of Consciousness Awake November 22, 2021 9:31pm Alert November 22, 2021 9: 31pm Appropriate November 22, 2021 9: 31pm Follows Commands November 22, 2021 9: 31pm Assessments Diagnosis Onset Date Resolution Status Abdominal pain acute Cardiac defibrillator in situ [place] Chest pain acute Neck pain acute Tetralogy of Fallot chronic Essential hypertension chronic Mixed hyperlipidemia chronic Paroxysmal atrial fibrillation c hronic Type 2 diabetes mellitus chronic Plan of Treatment Future Tests Future scheduled test information is unavailable Pending Tests Test Name Date ordered VTE Risk Assessment Medical November 20, 2021 4:17am Future Visits Future appointment information is unavailable Referrals to Other Providers Referral information is unavailable Future Procedures Procedure Name Scheduled Date Hospital Level of Care November 21, 2021 9:59am Brace Affected Area November 20, 2021 2:51pm Cardiology Consult November 20, 2021 4:58am Code Status November 20, 2021 4:17am Saline Lock Insert/Manage November 20, 2021 1:18am Medical Record Request November 20, 2021 4:28am Notify Provider November 20, 2021 4:19am Oxygen Initiate/Maintain November 20, 2021 1:18am Orthopedics Consult November 20, 2021 10:55am Patient Preference for Pain Management November 20 4:17am Provider Order to Nurse November 20, 2021 4:19am Provider Order to Nurse November 20, 2021 1:56pm Continuous Pulse Oximetry November 20, 2021 1:18am Sequential Compression Device November 20, 2021 4:17am Urology Consult November 22, 2021 3:58pm Future Medications Future medication information is unavailable Patient Instructions Patient instructions are unavailable Goals Acute Goals Absence of falls Including: - Early & [...]
--- OUTSIDE RECORDS SUMMARY | 2022-04-07 13:26 | XMS_ITS | Continuity of Care Document ---
:1960 Author Organization [facility] Address [address] [place] [address] Phone Care Team Providers Name Role Phone Pcp-Renny, MD Singh Primary Care Provider Unavailable Pcp-MD Melanie Lawson Family Provider Unavailable Hospitalist, Model (IS ONLY) Emergency Provider Unavailable MD Juan Andersen Other Provider MD Cathleen Washington Attending Provider MD Louie Hart Other Provider MD Camilla [facility] Other Provider TERESSA RUIZ Primary Care Provider TERESSA RUIZ Family Provider MD Prakash Saravia Emergency Provider MD Danis Hall Other Provider Chief Complaint and Reason for Visit Chief Complaint CHEST PAIN LOWER LT ABD PAIN CHEST PAIN Reason for Visit Abdominal pain BPH (benign prostatic hyperp lasia) 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 Chest pain Neck pain Tetralogy of Fallot Essential hypertension Mixed hyperlipidemia Paroxysmal atrial fibrillati on Type 2 diabetes mellitus Atypical chest pain Chest pain Allergies, Adverse Reactions, Alerts Allergen Type Severity Reaction Last Updated Verified Status atorvastatin Allergy Unknown Hives Bartlett 31st, Yes Acti ve 2021 9:23am peas Allergy Unknown Hives (Green December 01, Yes Acti ve Peas) 2021 9:23am bee venom protein Allergy Unknown December 01, Yes Active (honey bee) 2021 9:23am Social History Smoking Status Status Start Date End Date Date of Observat ion Never smoked tobacco (finding) M arch 2019 6:38am Observation Status Observation Response Date of Response Lives With Other November 21, 2021 1: 46pm Living Situation Detention November 21, 2021 12 :13pm Living Situation Private Home December 01, 2021 7: 24pm Living Situation [facility] Treatment Facility November [id number] [...] Start End Ins tructions Date Date Metformin Disconti 500 MG PO TWICE A DAY April WITH MEALS 2018 1:00am 11:30a m Fluticasone Disconti 1 PUFF INH DAILY Aprilr Propionate (Flovent 50 2018, Mcg Diskus) 1:00am 2018 60 PUFF/DISK 2:28am Disk Acetaminophen Disconti 650 MG PO EVERY 6 April nu HOURS 2018 1:00am 11:34a m Lorazepam Disconti 0.5 MG PO DAILY April 1:00am 11:30a m Omeprazole Disconti 20 MG PO DAILY April 1:00am 11:30a m Montelukast Disconti 10 MG PO ONCE DAILY Kathryn Meng h nued AT BEDTIME 2018 1:00am 11:30a m Albuterol Disconti 2 PUFF INH EVERY 4 April Sulfate nued HOURS , (Proventil 2018 2019 Hfa) 6.7 GM 1:00am 11:34a Hfa.Aer.Ad m Cyclobenzapri Disconti 5 MG PO THREE TIMES April M arch ne nued A DAY 2018 1:00am 11:30a m Febuxostat Disconti 80 MG PO DAILY April (Uloric) 80 nued , MG Tablet 2018 2019 1:00am 11:30a m Trazodone HCl Disconti 50 MG PO ONCE DAILY April rch nued AT BEDTIME 2018 1:00am 11:30a m Fluticasone Disconti 1 SPRAY NASAL TWICE A DAY April ch Propionate nued 2018 1:00am 11:30a m Isosorbide Active 30 MG PO DAILY November Mononitrate 2021 12:00am Metoprolol Active 100 MG PO DAILY November Succinate 2021 12:00am Olanzapine Active 2.5 MG PO TWICE A DAY November 20, 2021 12:00am Aspirin Active 81 MG PO DAILY November 20, 2021 12:00am Levothyroxine Active 75 MCG PO DAILY@0600 November 20, 2021 12:00am Gabapentin Active 300 MG PO TWICE A DAY November 20, 2021 12:00am Albuterol Active 2 INH INH DAILY November 12:00am Lisinopril Active 2.5 MG PO DAILY November 20, 2021 12:00am Naproxen Active 500 MG PO TWICE A DAY November 20, 2021 12:00am Cyclobenzapri Active 5 MG PO DAILY November ne 2021 12:00am Trazodone Active 100 MG PO ONCE DAILY November AT BEDTIME 2021 12:00am Melatonin Disconti 5 MG PO ONCE DAILY November nued AT BEDTIME 2021 12:00am 3:14pm Sennosides Disconti 8.6 MG PO TWICE A DAY November t (Senna) 8.6 nued , mg Capsule 2021 2021 12:00am 3:28pm Multivitamin Active 1 TAB PO DAILY December 01, 2021 12:00am Metformin Active 500 MG PO TWICE A DAY December 01, 2021 12:00am Diphenhydrami Active 50 MG PO DAILY November ne Hcl 2021 12:00am Magnesium Active 30 ML PO DAILY November Hydroxide , (Milk Of 2021 Magnesia) 400 12:00am mg/5 mL Suspension Bismuth Active 524 MG PO DAILY November do not exc eed Subsalicylate dose s in a (Kaopectate 2021 24 hour (Bismuth 12:00am period Subsalicy)) 262 mg/15 mL Suspension Lidocaine Active 1 PATCH TOPICAL DAILY November leave on most , painful area 2021 for up to 12 12:00am hrs Melatonin Active 3 MG PO DAILY December 01, 2021 12:00am Sennosides Active 17.2 MG PO DAILY November (Senna) 8.6 , mg capsule 2021 3:28pm Procedures Procedure Date Performed Status EKG ED [...] SARS-CoV-2, Influenza & RSV (PCR) comple devendra EKG ED Electrocardiogram December 01, 2021 9:08am active XR chest 2V December 01, 2021 9:13am completed EKG ED Electrocardiogram December 01, 2021 10:05am active Relevant Diagnostic Tests and/or Laboratory Data Laboratory Results Test Date/Time Result Interpretation Reference Result Perfo rming Range Comment Site Add-On Test November Added Good [facility] Request 2021 test [address] [facility] 3:59pm Romeo Mendosa [id number] White Blood Count Bartlett 5.6 X10 4.5-11.0 [facility] 2021 3/uL [address] [facility] 8:20am [place] [address] White Blood Count [place] 8.5 X10 4.5-11.0 [facility] 2021 3/uL [address] [facility] 9:50pm [place] [address]227 White Blood Count Bartlett 6.5 X10 4.5-11.0 [facility] 2021 3/uL [address] [facility] 9:49am [place] [address]114 Red Blood Count November 3.95 X10 4.00-5.50 [facility] 2021 6/uL [address] [facility] 8:20am [place] A [address]2596 Red Blood Count November 4.46 X10 4.00-5.50 [facility] 2021 6/uL [address] [facility] 9:50pm [place] [address]296 Red Blood Count November 4.55 X10 4.00-5.50 [facility] 2021 6/uL [address] [facility] 9:49am [place] 11882 Hemoglobin November 12.0 g/dl 12.0-17.0 [facility] 2021 [address] [facility] 8:20am [place] [address] Hemoglobin November 13.8 g/dl 12.0-17.0 [facility] 2021 [address] [facility] 9:50pm [place] [address]33 Hemoglobin November 13.8 g/dl 12.0-17.0 [facility] 2021 [address] [facility] 9:49am [place] [address]498 Hematocrit November 36.9 % 35.0-50.0 [facility] 2021 [address] [facility] 8:20am [place] [address]78 Hematocrit November 41.4 % 35.0-50.0 [facility] 2021 [address] [facility] 9:50pm [place] A [address]95 Hematocrit November 42.0 % 35.0-50.0 [facility] 2021 [address] [facility] 9:49am [place] A [address] Mean Corpuscular Bartlett 93.4 fl 80.0-100.0 [facility] Volume [address] [facility] [address] 8:20am [place] A [address]197 Mean Corpuscular Bartlett 92.8 fl 80.0-100.0 [facility] Volume [address] [facility] [address] 9:50pm [place] A [address]9622 Mean Corpuscular Bartlett 92.3 fl 80.0-100.0 [facility] Volume 2021 [address] [facility] 9:49am [place] A 42996 Mean Corpuscular Bartlett 30.4 pg 27.0-34.0 [facility] Hemoglobin 2021 [address] [facility] 8:20am [place] A [address]178 Mean Corpuscular Bartlett 30.9 pg 27.0-34.0 [facility] Hemoglobin 2021 [address] [facility] 9:50pm [place] A 17025 Mean Corpuscular Bartlett 30.3 pg 27.0-34.0 [facility] Hemoglobin 2021 [address] [facility] 9:49am [place] A 98608 Mean Corpuscular Bartlett 32.5 g/dl 31.0-36.0 [facility] Hemoglobin 2021 [address] [facility] Concent 8:20am [place] A 95430 Mean Corpuscular Bartlett 33.3 g/dl 31.0-36.0 [facility] Hemoglobin 2021 [address] [facility] Concent 9:50pm [place] A [address]7630 Mean Corpuscular Bartlett 32.9 g/dl 31.0-36.0 [facility] Hemoglobin 2021 [address] [facility] Concent 9:49am [place] A 92093 Red Cell Bartlett 12.6 % 11.5-15.0 [facility] Distribution 2021 235 [facility] Width 8:20am [place] A 43238 Red Cell Bartlett 12.5 % 11.5-15.0 [facility] Distribution [address] Width 9:50pm [place] A [address]4072 Red Cell Bartlett 12.5 % 11.5-15.0 [facility] Distribution [address] Width 9:49am [place] A 29542 Platelet Count November 90 X10 150-400 [facility] 2021 3/uL [address] 8:20am [place] A [address] Platelet Count November 103 X10 150-400 [facility] 2021 3/uL [address] 9:50pm [place] A [address] Platelet Count November 99 X10 150-400 [facility] 2021 3/uL [address] 9:49am [place] A 10802 Immature Bartlett 1.1 % [facility] Granulocyte % [address] (Auto) 8:20am [place] A 86273 Immature Bartlett 1.5 % [facility] Granulocyte % [address] (Auto) 9:50pm [place] A 17206 Immature Bartlett 1.9 % [facility] Granulocyte % [address] (Auto) 9:49am [place] A 42350 Neutrophils (%) November 62.7 % [facility] (Auto) [address] 8:20am [place] A 19864 Neutrophils (%) November 66.2 % [facility] (Auto) [address] 9:50pm [place] A 84788 Neutrophils (%) November 69.9 % [facility] (Auto) [address] 9:49am [place] A 37172 Lymphocytes (%) November 18.8 % [facility] (Auto) [address] 8:20am [place] A 60588 Lymphocytes (%) November 18.0 % [facility] (Auto) 2021 [address] [facility] 9:50pm [place] A 74468 Lymphocytes (%) November 13.4 % [facility] (Auto) 2021 [address] [facility] 9:49am [place] A 57458 Monocytes (%) November 9.8 % [facility] (Auto) 2021 [address] [facility] 8:20am [place] A 44956 Monocytes (%) November 8.7 % [facility] (Auto) 2021 [address] [facility] 9:50pm [place] A 96728 Monocytes (%) November 8.2 % [facility] (Auto) 2021 [facility] 9:49am [place] A 28639 Eosinophils (%) November 6.2 % [facility] (Auto) 2021 [address] [facility] 8:20am [place] A 16829 Eosinophils (%) November 4.2 % [facility] (Auto) 2021 [address] [facility] 9:50pm [place] A 32176 Eosinophils (%) November 5.2 % [facility] (Auto) 2021 [facility] 9:49am [place] A 87446 Basophils (%) November 1.4 % [facility] (Auto) 2021 [address] [facility] 8:20am [place] A 71694 Basophils (%) November 1.4 % [facility] (Auto) 2021 [address] [facility] 9:50pm [place] A 94143 Basophils (%) November 1.4 % [facility] (Auto) [address] [facility] [address] 9:49am [place] A 17926 Immature Bartlett 0.06 X10 0.00-0.09 [facility] Granulocyte # 2021 3/uL [address] (Auto) 8:20am [place] A 57868 Immature Bartlett 0.13 X10 0.00-0.09 [facility] Granulocyte # 2021 3/uL [address] (Auto) 9:50pm [place] A 98179 Immature Bartlett 0.12 X10 0.00-0.09 [facility] Granulocyte # 2021 3/uL [address] [facility] [address] (Auto) 9:49am [place] A 07445 Neutrophils # Bartlett 3.5 X10 1.5-7.8 [facility] (Auto) 2021 3/uL [address] [facility] [address] 8:20am [place] A 20163 Neutrophils # Bartlett 5.6 X10 1.5-7.8 [facility] (Auto) 2021 3/uL [address] [facility] [address] 9:50pm [place] A 86854 Neutrophils # Bartlett 4.5 X10 1.5-7.8 [facility] (Auto) 2021 3/uL [address] [facility] [address] 9:49am [place] A 70852 Lymphocytes # Bartlett 1.1 X10 1.0-4.8 [facility] (Auto) 2021 3/uL [address] 8:20am [place] A 75462 Lymphocytes # Bartlett 1.5 X10 1.0-4.8 [facility] (Auto) 2021 3/uL [address] [facility] [address] 9:50pm [place] A 73423 Lymphocytes # Bartlett 0.9 X10 1.0-4.8 [facility] (Auto) 2021 3/uL [address] 9:49am [place] A 27300 Monocytes # Bartlett 0.6 X10 0.0-0.8 [facility] (Auto) 2021 3/uL [address] 8:20am [place] A 97302 Monocytes # Bartlett 0.7 X10 0.0-0.8 [facility] (Auto) 2021 3/uL [address] 9:50pm [place] A 77410 Monocytes # Bartlett 0.5 X10 0.0-0.8 [facility] (Auto) 2021 3/uL [address] 9:49am [place] A 46018 Eosinophils # Bartlett 0.4 X10 0.0-0.5 [facility] (Auto) 2021 3/uL [address] [facility] 8:20am [place] A 08476 Eosinophils # Bartlett 0.4 X10 0.0-0.5 [facility] (Auto) 2021 3/uL [address] [facility] 9:50pm [place] A 56515 Eosinophils # Bartlett 0.3 X10 0.0-0.5 [facility] (Auto) 2021 3/uL [address] [facility] 9:49am [place] A 40919 Basophils # Bartlett 0.1 X10 0.0-0.2 [facility] (Auto) 2021 3/uL [address] [facility] 8:20am [place] A 24566 Basophils # Bartlett 0.1 X10 0.0-0.2 [facility] (Auto) 2021 3/uL [address] [facility] 9:50pm [place] A 29465 Basophils # Bartlett 0.1 X10 0.0-0.2 [facility] (Auto) 2021 3/uL [address] [facility] 9:49am [place] A 87279 Hemoglobin A1c November 6.6 4.3-5.9 [facility] 2021 [address] [facility] 6:10am [place] A 33559 Estimated Average November 143 mg/dl Go [facility] Glucose (eAG) 2021 [address] [facility] 6:10am [place] A 37092 Nucleated Red Bartlett 0.0 /100 0.0-0.0 [facility] Blood Cells % 2021 WBC [address] [facility] 8:20am [place] A 35833 Nucleated Red Bartlett 0.0 /100 0.0-0.0 [facility] Blood Cells % 2021 WBC [address] [facility] 9:50pm [place] A 06977 Nucleated Red Bartlett 0.0 /100 0.0-0.0 [facility] Blood Cells % 2021 WBC [address] [facility] 9:49am [place] A 98424 Prothrombin Time November 11.1 9.3-12.1 [facility] 2021 Seconds [address] [facility] 5:31am [place] A 02803 Prothromb Time November 1.0 0.9-1.2 Reference Interval is for non-anticoagulated patients. [facility] 2021 Suggested I NR Therapeutic Range for Vitamin K antogonist therapy: [address] [facility] Ratio 5:31am LEVELS OF [place] A 82652 THERAPY INDICATIONS TARGET INR RANGE Standard Dose Venous Thrombosis, 2.0 - 3.0 Atrial Fibrillation , Pulmonary Embolism. High Dose Valvular H eart Disease, 2.5 - 3.5 Mechanical Heart, Intracardiac Thromb osis. Urine Color November Yellow Yellow [facility] 2021 [address] [facility] 10:06pm [place] A 43378 Urine Clarity November Clear Clear [facility] 2021 [address] [facility] 10:06pm [place] A 02360 Urine pH November 5.5 5.0-8.0 [facility] 2021 [address] [facility] 10:06pm [place] A 21936 Urine Specific November 1.013 1.005-1.03 [facility] Scribner 2021 0 [address] [facility] 10:06pm [place] A 25394 Urine Blood November Negative Negative [facility] 2021 mg/dL [address] [facility] 10:06pm [place] A 17610 Urine Protein November Negative Negative [facility] 2021 mg/dL [address] [facility] 10:06pm [place] A 57048 Urine Glucose Bartlett Negative Negative [facility] (UA) 2021 mg/dl [address] [facility] 10:06pm [place] A 05029 Urine Ketones November Negative Negative [facility] 2021 mg/dL [address] [facility] 10:06pm [place] A 94437 Urine Nitrate November Negative Negative [facility] 2021 [address] [facility] 10:06pm [place] A 23151 Urine Bilirubin November Negative Negative [facility] 2021 mg/dL [address] [facility] 10:06pm [place] A 59312 Urine November 0.2 Normal [facility] Urobilinogen 2021 E.U./dL [address] [facility] 10:06pm [place] A 17720 Urine Leukocyte November Negative Negative [facility] Esterase 2021 mg/dL [address] [facility] 10:06pm [place] A 52235 Sodium Level November 141 137-146 [facility] 2021 mmol/L [address] [facility] 6:10am [place] A 97862 Sodium Level November 137 137-146 [facility] 2021 mmol/L [address] [facility] 9:50pm [place] A 72273 Sodium Level November 138 137-146 [facility] 2021 mmol/L [address] [facility] 9:49am [place] A 37956 Potassium Level November 4.2 3.5-5.3 [facility] 2021 mmol/L [address] [facility] 6:10am [place] 73928 Potassium Level November 4.7 3.5-5.3 Specimen [facility] 2021 mmol/L hemolyzed, [address] [facility] 9:50pm results [place] 29974 affected Potassium Level November 5.1 3.5-5.3 [facility] 2021 mmol/L [address] [facility] 9:49am [place] A 58490 Chloride Level November 102 98-107 [facility] 2021 mmol/L [address] [facility] 6:10am [place] A 16016 Chloride Level November 99 mmol/L 98-107 [facility] 2021 [address] [facility] 9:50pm [place] A 89663 Chloride Level November 99 mmol/L 98-107 [facility] 2021 [address] [facility] 9:49am [place] A 80894 Carbon Dioxide November 26 mmol/L -32 [facility] Level 2021 [address] [facility] 6:10am [place] A 68819 Carbon Dioxide November 27 mmol/L [facility] Level 2021 [address] [facility] 9:50pm [place] A 82169 Carbon Dioxide November 27 mmol/L [facility] Level 2021 [address] [facility] 9:49am [place] A 75409 Anion Gap November 13 mmol/L 08-15 [facility] 2021 [address] [facility] 6:10am [place] A 56509 Anion Gap November 11 mmol/L 08-15 [facility] 2021 [address] [facility] 9:50pm [place] A 99504 Anion Gap November 12 mmol/L 08-15 [facility] 2021 [address] [facility] 9:49am [place] A 62167 Blood Urea November 16 mg/dl 08-25 [facility] Nitrogen 2021 [address] [facility] 6:10am [place] A 43124 Blood Urea November 22 mg/dl 08-25 [facility] Nitrogen 2021 [address] [facility] 9:50pm [place] A 81284 Blood Urea November 24 mg/dl 08-25 [facility] Nitrogen 2021 [address] [facility] 9:49am [place] A 08938 Creatinine November 1.1 mg/dL 0.6-1.4 [facility] 2021 [address] [facility] 6:10am [place] A 92276 Creatinine November 1.3 mg/dL 0.6-1.4 [facility] 2021 [address] [facility] 9:50pm [place] A 82801 Creatinine November 1.2 mg/dL 0.6-1.4 [facility] 2021 [address] [facility] 9:49am [place] A 98771 Estimated Bartlett 74.7 This value [facility] Creatinine 2021 ml/min is calculated [address] [facility] Clearance 6:10am [place] [address] Gault Equation using ideal body weight. This result is dependent on an accurate patient height and weight which is obtained from patients medical record. Cockcroft, D.W. and M.H. Gault. Prediction of creatinine clearance from serum creatinine. Nephron. 1975. 16(1):31-41. Estimated November 74.4 This value [facility] Creatinine 2021 ml/min is calculated [address] Clearance 9:50pm [place] [address] Gault Equation using ideal body weight. This result is dependent on an accurate patient height and weight which is obtained from patients medical record. Cockcroft, D.W. and M.H. Gault. Prediction of creatinine clearance from serum creatinine. Nephron. 1975. 16(1):31-41. Estimated November Planning Intern Unable to [facility] Creatinine 2021 Calculate [address] Clearance 9:49am CRCL,Ht [place] A [address]90 and/or Wt missing Estimated GFR November 85 >60 [facility] ([address] Citizen [place]) 6:10am [place] A 80622 Estimated GFR November 69 >60 [facility] ( [address] [place]) 9:50pm [place] A 05442 Estimated GFR November 76 >60 [facility] ( [address] Citizen [place]) 9:49am [place] A 24263 Estimated GFR November 73 >60 [facility] (Non- [address] [place] 6:10am [place] A 56928 Estimated GFR November 60 >60 [facility] (Non- [address] [place] 9:50pm [place] A 84452 Estimated GFR November 66 >60 [facility] (Non- [address] [place] 9:49am [place] A 14226 BUN/Creatinine November 14.5 10.0-20.0 [facility] Ratio [address] 6:10am [place] A 08751 BUN/Creatinine Bartlett 16.9 10.0-20.0 [facility] Ratio 2021 [address] [facility] 9:50pm [place] A 16605 BUN/Creatinine November 20.0 10.0-20.0 [facility] Ratio 2021 [address] [facility] 9:49am [place] A 53206 Glucose Level November 106 mg/dL 70-100 [facility] 2021 [address] [facility] 6:10am [place] A 20682 Glucose Level November 226 mg/dL 70-100 [facility] 2021 [address] [facility] 9:50pm [place] A 95052 Glucose Level November 226 mg/dL 70-100 [facility] 2021 [address] [facility] 9:49am [place] A 89983 Calcium Level November 8.6 mg/dl 8.6-10.3 [facility] 2021 [address] [facility] 6:10am [place] A 43788 Calcium Level November 8.8 mg/dl 8.6-10.3 [facility] 2021 [address] [facility] 9:50pm [place] A 23801 Calcium Level November 9.1 mg/dl 8.6-10.3 [facility] 2021 [address] [facility] 9:49am [place] A 32032 Total Bilirubin November 0.3 mg/dl <1.1 [facility] 2021 [address] [facility] 9:50pm [place] A 30160 Total Bilirubin November 0.4 mg/dl <1.1 [facility] [facility] 2021 235 [facility] 9:49am [place] [address] Aspartate Amino November 16 U/L 15-41 [facility] Transf (AST/SGOT) 2021 2 35 [facility] 9:50pm [place] A [address]692 Aspartate Amino November 17 U/L 15-41 [facility] Transf (AST/SGOT) 2021 2 35 [facility] 9:49am [place] A [address]379 Alanine November 18 U/L 14-63 [facility] Aminotransferase 2021 23 5 [facility] (ALT/SGPT) 9:50pm [facility] [address] Alanine November 20 U/L [facility] Aminotransferase 2021 23 5 [facility] (ALT/SGPT) 9:49am [facility] [address]67 Troponin T High November 13 ng/L <13 Normal range: Females <9 ng/L [facility] Sensitivity 2021 Males <14 ng/L 2 35 [facility] 12:10am [facility] A 83940 Values greater than or equal to 52 [...] the TONI score for the inpatient setting). Troponin T High November 16 ng/L <13 Normal range: Females <9 ng/L [facility] Sensitivity 2021 Males <14 ng/L 2 35 [facility] 1:09pm [facility] A 67168 Values greater than or equal to 52 [...] score for the inpatient setting). Total Protein [place] 6.7 g/dL 6.4-8.3 [facility] 2021 [facility] 9:50pm [place] M A [address]86 Total Protein [place] 6.7 g/dL 6.4-8.3 [facility] 2021 235 [facility] 9:49am [place] [address]289 Albumin [place] 4.0 g/dl 4.0-5.0 [facility] 2021 235 [facility] 9:50pm [place] [address]64 Albumin [place] 4.3 g/dl 4.0-5.0 [facility] 2021 235 [facility] 9:49am [place] A [address]10 Albumin/Globulin [place] 1.5 1.0-2.6 [facility] Ratio 2021 235 [facility] 9:50pm [place] A [address]65 Albumin/Globulin [place] 1.8 1.0-2.6 [facility] Ratio 2021 235 [facility] 9:49am [place] M A [address]8741 Alkaline [place] 93 U/L 40-129 [facility] Phosphatase [address] [facility] [address] 9:50pm [place] A [address]247 Alkaline [place] 84 U/L 40-129 [facility] Phosphatase [address] [facility] [address] 9:49am [place] M A [address]89 Lipase [place] 36 U/L 13-60 [facility] 2021 235 [facility] 9:50pm [place] M A [address]7566 Prostate Specific [place] 0.63 <3.09 [facility] Antigen 2021 ng/ml 736 [facility] 12:10am [facility] [address] Thyroid November 4.83 0.34-5.60 [facility] Stimulating 2021 uIU/mL [address] [facility] Hormone (TSH) 8:20am [facility] Bedside Glucose November 165 mg/dl 70-100 NOTE: Any discrepancy between finger stick glucose result [facility] 2021 and patient's clin ical presentation should be 235 [facility] 11:31am [facility] Bedside Glucose November 133 mg/dl 70-100 NOTE: Any discrepancy between finger stick glucose result [facility] 2021 and patient's clin ical presentation should be 235 [facility] 7:12pm confirmed by the [facility]. [facility] Microbiology Results Procedure Source Result Collection Result Result Performin g Date/Time Date/Time Comment Site SARS-CoV-2, Nares, Both November 23, [facility] Influenza & Left & 2021 1:56pm [facility] ([facility] Right [facility] [address] Diagnostic Imaging Reports Report Dictated Date/Time Dictated By Status Radiology Report November 20, 2021 9:08am Deniz Silva MD comp leted [facility] [address] [place] [address] Patient Name: Joaquín Barrientos [facility] rd#: [id number] Address: [address] [place] [address] City/State/Zip: [place] [address]: Laura Washington MD Insurance: [facility] /Age/Sex: 1960/61[birth year]M Self Pay Admit/Reg Date: 11/20/[address]: Haris Bradshaw DO Location: ED.INGS/GSXFR-7 PCP: PcpMd MELANIE Johnson Date of Service: 11/20/21 Order (s): XR chest 2V CPT Code: 19761 Report Number: [id number] Reason for Exam: Chest Pain EXAM: [...] Silva MD 11/20/21 0913 TD/TT: 11/20/21 0908Tech: [facility] cc: TASHA; TIA; CRYSTAL Lee MD; Cathleen Washington MD; Vince Bradshaw DO Report Dictated Date/Time Dictated By Status Electrocardiogram November 20, 2021 Warren Rivas MD completed [place] [id number] Patient Name: Joaquín Barrientos [facility] rd#: [id number] Address: [address] [place] [address] 85 City/State/Zip: [place] [address]: Laura Washington MD Insurance: [facility] /Age/Sex: 1960/61/M Self Pay Admit/Reg Date: 11/20/[address]: Haris Bradshaw DO [facility] PCP: Md MELANIE Lee Date of Service: 11/20/21 Order (s): EKG ED Electrocardiogram CPT Code: 19742 Report Number: [id number] Reason for Exam: Chest Pain SINUS RHYTHM RIGHT BUNDLE BRANCH BLOCK LEFT POSTERIOR FASCICULAR BLOCK Dictated By: Warren Rivas MD 11/20/21 Signed By: Warren Rivas MD 11/20/21 144 TD/TT: 11/20/21 1441Tech: cc: TASHA; PCPSHANNAN* Md Jesus MD; Titus Bradshaw DO Report Dictated Date/Time Dictated By Status Radiology Report November 20, 2021 1:35pm Titus Martinez MD compl eted [facility] [address] [place] [address] Patient Name: Joaquín Barrientos [facility] rd#: [id number] Address: [address] [place] [address] 85 City/State/Zip: [place] [address]: Laura Washington MD Insurance: [facility] /Age/Sex: 1960/61/M Self Pay Admit/Reg Date: 11/20/[address]: Caio Washington MD; Michael Shannon [facility] Location: ED.[facility]/XFR-7 PCP: Md MELANIE Lee Date of Service: 11/20/21 Order (s): CT abd pelvis wo/w contrast; CT cervical spine wo contrast CPT Code: 60197; 45576 Report Number: [id number] Reason for Exam: hx cervical fracture in past. neck pain PROCEDURE: CERVICAL SPINE CT HISTORY: Neck pain. History of cervical fracture. COMPARISON: None TECHNIQUE: Noncontrast CT of the cervic al spine.Multiplanar imaging was reviewed. CT technique involves the adju stment of the mA and/or kV according to patient size. MIPS Measure #361 Patient Exposure to Ionizing Radiation was submitted to [employer] (A[employer]) Elizabeth onal Data [...] to [employer] ([employer]) [facility] Radiology Data Registry (NRDR) and MIPS [...] Martinez MD 11/20/21 1452 TD/TT: 11/20/21 1335Tech: [id number] cc: TIA; DEANNE; CRYSTAL Singh PcpMD Alex; Cathleen Washington MD; Ceferino Shannon, PAC Report Dictated Date/Time Dictated By Status Radiology Report November 21, 2021 4:29pm Fer Lopez MD com [address] [address] Patient Name: Joaquín Barrientos [facility] rd#: [id number] Address: [address] [place] [address] City/State/Zip: [place] [address]: Laura Washington MD Insurance: [facility] /Age/Sex: 1960/61/M Self Pay Admit/Reg Date: 11/21/[address]: Caio Washington MD Location: 3A.GS/CI840-Q PCP: Md MELANIE Lee Date of Service: 11/21/21 Order (s): US bladder CPT Code: 11761 Report Number: [id number] Reason for Exam: possible tumor per [...] prostate gland. Dictated By: Fer Lopez MD 11/21/21 1629 Signed By: Fer Lopez MD 11/21/21 164 1 TD/TT: 11/21/21 1629Tech: [id number] cc: HRSSPETE; PCPNO* Md Rodriguez-MD Renny; Cathleen Washington MD Report Dictated Date/Time Dictated By Status Radiology Report November 22, 2021 5:27pm Eduar Monzon MD [address] [address] Patient Name: Joaquín Barrientos rd#: [id number] Address: [address] [place] [address] 85 City/State/Zip: [place] [address]: Laura Washington MD Insurance: [facility] /Age/Sex: 1960/61/M Self Pay Admit/Reg Date: 11/21/[address]: Caio Washington MD Location: 3A./NC616-P PCP: Md MELANIE Lee Date of Service: 11/22/21 Order (s): NM bone scan whole body CPT Code: 23540 Report Number: [id number] Reason for Exam: c2 fracture THREE [...] By: Eduar Monzon MD 11/22/211736 TD/TT: 11/22/211726Tech: [facility] cc: HRSSPNABIL; SOREN* Pcp-MD Renny; Cathleen Washington MD Report Dictated Date/Time Dictated By Status Electrocardiogram November 20, 2021 1:40am Jagjit Blum MD [place] [address] [place] [address] Patient Name: Joaquín Barrientos [facility] rd#: [id number] Address: [address] [place] [address] 85 [facility]/Zip: [place] [address]: Laura Washington MD Insurance: [facility] /Age/Sex: 1960/61[birth year]M Self Pay Admit/Reg Date: 11/21/[address]: E/ R Olga Correa Location: 3A./FH840-I PCP: Md MELANIE Lee Date of Service: 11/20/21 Order (s): EKG ED Electrocardiogram CPT Code: 77163 Report Number: [id number] Reason for Exam: CP Sinus rhythm [...] November 21, 2021 6:26pm Jagjit Blum MD [place] [id number] Patient Name: Joaquín Barrientos [facility] rd#: [id number] Address: [address] [place] [address] [facility]/Zip: [place] [address]: Laura Washington MD Insurance: [facility] /Age/Sex: 1960/61/M Self Pay Admit/Reg Date: 11/21/[address]: Caio Washington MD Location: 3A./OC288-V PCP: Md MELANIE Lee Date of Service: 11/21/21 Order (s): EKG Electrocardiogram CPT Code: 65820 Report Number: [id number] Reason for Exam: CP Sinus rhythm with 1st degree A-V block Rightward axis Right bundle branch block Left posterior fascicular block Low QRS voltages in precordial leads Dictated By: Jagjit Blum MD 11/21/21 Signed By: Jagjit Blum MD 11/22/211818 TD/TT: 11/21/211825Tech: [facility] cc: [facility] HEALTHNABIL; SOREN* Pcp-MD Renny; Cathleen Washington MD Report Dictated Date/Time Dictated By Status Radiology Report November 23, 2021 10:26am Saulo Mcnulty MD completed [facility] [address] [place] [address] Patient Name: Joaquín Barrientos [facility] rd#: [id number] Address: [address] [place] [address] City/State/Zip: [place] [address]: Laura Washington MD Insurance: [facility] /Age/Sex: 1960/61/M Self Pay Admit/Reg Date: 11/21/[address]: Caio Washington MD Location: ./XB718-S PCP: PcpMd MELANIE Johnson Date of Service: 11/23/21 Order (s): CT head/brain wo contrast CPT Code: 74982 Report Number: [id number] Reason for Exam: followup parietal lesio n lytic from 2018 CT head/brain wo contrast CLINICAL HISTORY: 61 [...] MD 11/24/21 0 558 TD/TT: 11/23/21 1026Tech: [id number] cc: HRSSPETE; SOREN* PcpMD Alex; Cathleen Washington MD Report Dictated Date/Time Dictated By Status Radiology Report December 01, 2021 10:06am Fer Dodge MD compl eted [place] [address] [place] [address] Patient Name: Joaquín Barrientos [facility] rd#: [id number] Address: [address] City/State/Zip: [place] [address]: Prakash Saravia MD Insurance: [facility] /Age/Sex: 1960/61/M Self Pay Admit/Reg Date: 12/01/[address]: HEAVENLY Montes De Oca Location: ED.GS/ PCP: Pcp-Beba StaffMd Date of Service: 12/01/21 Order (s): XR chest 2V CPT Code: 89033 Report Number: [id number] Reason for Exam: chest pain Patient name: Joaquín Barrientos Exam: XR chest 2V Technique: Portable AP Chest film. Procedure Date and Time: 12/01/2021 9:28 AM Indication: chest pain Comparison: Chest x-ray 11/20/2021. FINDINGS: LINES/TUBES: 3-lead left-sided pacemake r is stable. LUNGS/PLEURA: No focal consolidation. N o pleural effusion. No pneumothorax. HEART AND MEDIASTINUM: Normal cardiomed iastinal silhouette. IMPRESSION: NO ACUTE PROCESS. Dictated By: Fer Dodge MD 12/01/21 1006 Signed By: Fer Dodge MD 12/01/21 1011 TD/TT: 12/01/21 1006Tech: SVCRPACS cc: LOGEM; PCPNS; RICJACQUELINE* DAKOTA Owen; Prakash Saravia MD; TERESSA CONCEPCION Vital Signs Vital Reading Result Reference Range Collection Date/ Time Height 177.8 cm November 20 11:25pm Weight 108.86 kg November 22 5:15am Body Temperature 97.5 [degF] 97.6-99.6 November 23 7:45am Heart Rate 77 /min 60-90 November 23 9:00am Respiratory rate 20 /min -November 23 7:45am Oxygen saturation by Pulse 98 % 95-100 Augus 2021 7:45am oximetry BP Systolic 127 mm[Hg] [...] (Body Mass Index) 35.4 kg/m2 November 10:45pm Heart Rate 84 /min 60-90 December 01 7:10pm Respiratory rate 18 /min -December 01 3:30pm Oxygen saturation by Pulse 95 % 95-100 Nov[facility] 2021 7:10pm oximetry BP Systolic 120 mm[Hg] 90-140 December 01 7:10pm BP Diastolic 83 mm[Hg] 60-90 December 01 7:10pm Advance Directives Advance Directive Response Recorded Date/Time Pt has Medical Orders for Life Sustaining Tx Form No November 21, 2021 1:46pm (MOLST)? Advance Directives No November 21, 2021 1: 46pm Health Care Proxy Yes November 21, 2021 1: 46pm Advance Directives No December 01, 2021 8: 50am Health Care Proxy No December 01, 2021 8: 50am Advance Directives No November 28, 2021 9: 34pm Health Care Proxy No November 28, 2021 9: 34pm Insurance Providers Guarantor Joaquín Barrientos Address [address] [place] [address] Contact Info. Home Phone: Payer Policy Id Coverage Id Subscriber's Subscriber Effective Expi ration Name Id Date Date [facility] [id number] Joaquín Barrientos [id number] [facility] Medicare A&B [id number] Joaquín Barrientos [id number] Self Pay Self N/A Encounters Encounter Location(s) Arrival/Admit Date Discharge/Depart Date Provider(s) Discharged [facility] November 21, 2021 November 23, 2021 Zamora , Inpatient Medical 9:59am 4:58pm [facility] Departed [facility] November 28, 2021 November 29, 2021 nul l Emergency Medical 9:07pm 12:08am Center-Emergency Dept Admitted [facility] December 01, 2021 Cathleen savage , Inpatient Medical 3:24pm [facility] Recent Diagnosis Onset Date Abdominal pain BPH (benign prostatic hyperplasia) Cardiac defibrillator in situ Chest pain Neck pain Tetralogy of Fallot Essential hypertension Mixed hyperlipidemia Paroxysmal atrial fibrillation Type 2 diabetes mellitus Atypical chest pain Chest pain Functional Status Observation Response Date Recorded Assistive Devices None November 21, 2021 1: 46pm Ambulation Tolerance [facility] November 23, 2021 1 0:43am Bathing Type [...] hyperplasia) acute Cardiac defibrillator in situ ac [place] Chest pain acute Neck pain acute Tetralogy of Fallot chronic Essential hypertension chronic Mixed hyperlipidemia chronic Paroxysmal atrial fibrillation c hronic Type 2 diabetes mellitus chronic Atypical chest pain acute Chest pain acute Plan of Treatment Future Tests Future scheduled test information is unavailable Pending Tests Test Name Date ordered [facility] November 20, 2021 4:17am [facility] December 01, 2021 3:24pm Future Visits Future appointment information is unavailable Referrals to Other Providers Reason for Referral Start Provider Provider Contact Provider Address Referral Date Information Pcp-Renny , Md MD TERESSA RUIZ Work Phone: [address] [place] [address] [employer] [address] [place], [place] [address] Wally Stone Work Phone: [facility] Urology MD Diana [address], [address] [facility] [address] Future Procedures Procedure Name Scheduled Date Hospital [...] 4:17am Urology Consult November 22, 2021 3:58pm EKG ED Electrocardiogram December 01, 2021 10:05am EKG ED Electrocardiogram Bartlett 31st, 2022 9:08am Hospital Level of Care December 01, 2021 3:24pm Basic Metabolic Panel December 02, 2021 6:00am Basic Metabolic Panel December 03, 2021 6:00am Cardiology Consult December 01, 2021 7:07pm Complete Blood Count Auto Diff December 02, 2021 6:0 0am Complete Blood Count Auto Diff December 03, 2021 6:0 0am Code Status December 01, 2021 3:24pm ED Transfer of Care to Adm Physician December 01, 2021 3:23pm EKG PRN for Chest Pain December 01, 2021 9:08am Peripheral IV Insert/Manage December 01, 2021 9:08am Patient Preference for Pain Management December 01 3:24pm Provider Order to Nurse December 01, 2021 7:19pm Continuous Pulse Oximetry December 01, 2021 9:08am Sequential Compression Device December 01, 2021 3:24pm Saline Lock Insert/Manage November 28, 2021 9:30pm [...]
--- OUTSIDE RECORDS SUMMARY | 2022-04-07 13:27 | XMS_ITS | Continuity of Care Document ---
:1960 Author Organization [facility] Address [address] [place] [address] Phone Care Team Providers Name Role Phone MOHANRILEYISHTERESSA Espinoza Primary Care Provider MOHANSUSYOlga TERESSA Family Provider Hospitalist, Model (IS ONLY) Emergency Provider Unavailable MD Danis Hall Other Provider MD Sean Salmeron Attending Provider MD Prakash Saravia Emergency Provider MD Faizan Leong Other Provider MD Hardik Han Other Provider MD Grant Ahmadi Other Provider MD Zach Rice Attending Provider MD Thomas Nath Other Provider MD Jesenia Rivas Attending Provider MD Gilmer Mayfield Other Provider MD Cory Cortez Attending Provider MD Nathaniel Rooney Other Provider Chief Complaint and Reason for Visit Chief Complaint CHEST PAIN SYNCOPE AICD FIRING CHEST PAIN Reason for Visit Atypical chest pain Chest pain 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 Essential hypertension Paroxysmal atrial fibrillati on Alcohol abuse Asthma Obstructive sleep apnea Pulmonary embolism Pulmonary nodule Readmission after hospitaliz ation within last 30 days Syncope Diabetes Afib Alcohol abuse Atypical chest pain Defibrillator discharge Pulmonary embolism Tetralogy of Fallot 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 Diabetes Hypertension Atypical chest pain Bipolar 1 disorder Chest pain CAD (coronary artery disease ), [place] coronary artery 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 Essential hypertension Paroxysmal atrial fibrillati on Allergies, Adverse Reactions, Alerts Allergen Type Severity Reaction Last Updated Verified Status atorvastatin Allergy Unknown Hives December 29, Yes A ctive 2021 4:48pm peas Allergy Unknown Hives (Green December 29, Yes A ctive Peas) 2021 4:48pm bee venom protein Allergy Unknown December 29, Yes Active (honey bee) 2021 4:48pm Social History Smoking Status Status Start Date End Date Date of Observat ion Never smoked tobacco (finding) M [facility] 2019 6:38am Observation Status Observation Response Date of Response Living Situation Long-Term November 21, 2021 12 :13pm Living Situation Sober House December 03, 2021 9:23am Living Situation Residential Treatment December 30 Facility 12:52pm Lives With Friend/Roommate December 30, 2021 3:49pm Other December 30, 2021 3:49pm Living Situation Residential Treatment November 28, 2021 10:44pm Facility Is Anyone Dependent on your No December 2:30am Care? Living Situation Private Home December 08, 2021 2:30am Living Situation Residential Treatment December 11 9:00pm Facility Additional Data Assigned Sex Male Family History Relationship Condition Age at Onset Recorded Date/Ti me father Unknown Malignant neoplasm Unknown mother Unknown Heart disease Unknown Problems Active Problems Medical Problem Onset Date Status BPH (benign prostatic hyperplasia) Activ e Readmission after hospitalization within last 30 days Active Obstructive sleep apnea Active Sleep apnea Active Diabetes Active Alcohol abuse Active Essential hypertension Active Type 2 diabetes mellitus Active Dyslipidemia Active Mood disorder Active Afib Active Depression Active Hypothyroidism Active 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 Mixed hyperlipidemia Active Pulmonary nodule Active CAD (coronary artery disease), [place] coronary artery Active Atypical chest pain Active Atypical chest pain Active QT prolongation Active Seizure Active Syncope Active Defibrillator discharge Active Tetralogy of Fallot Active Tetralogy of Fallot Active Chest pain, rule out acute myocardial infarction Active Bipolar 1 disorder Active Paroxysmal atrial fibrillation Active Pulmonary embolism Active Pulmonary embolism Active Neck pain Active 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 Abdominal pain Active Chest pain Active Chest pain Active Chest pain Active Hypertension Active Asthma Active Inactive/Resolved Problems Medical Problem Onset Date Status Closed head injury Resolved Chest pain Resolved Medications Medication Status Dose Units Route Directions Qty Days Start End Ins tructions Date Date Metformin Disconti 500 MG PO TWICE A DAY April WITH MEALS 2018 1:00am 11:30a m Fluticasone Disconti 1 PUFF INH DAILY Apriluar Propionate (Flovent 50 2018, Mcg Diskus) 1:00am 2018 60 PUFF/DISK 2:28am Disk Acetaminophen Disconti 650 MG PO EVERY 6 April nued HOURS 2018 1:00am 11:34a m Lorazepam Disconti 0.5 MG PO DAILY April 1:00am 11:30a m Omeprazole Disconti 20 MG PO DAILY April nued 2018 1:00am 11:30a m Montelukast Disconti 10 MG PO ONCE DAILY April h nued AT BEDTIME 2018 1:00am 11:30a m Albuterol Disconti 2 PUFF INH EVERY 4 April Sulfate nued HOURS , (Proventil 2018 2019 Hfa) 6.7 GM 1:00am 11:34a Hfa.Aer.Ad m Cyclobenzapri Disconti 5 MG PO THREE TIMES April M arch ne nued A DAY 2018 1:00am 11:30a m Febuxostat Disconti 80 MG PO DAILY April (Uloric) 80 nu, MG Tablet 2018 2019 1:00am 11:30a m Trazodone HCl Disconti 50 MG PO ONCE DAILY Kathryn Ma rch nued AT BEDTIME 2018 1:00am 11:30a m Fluticasone Disconti 1 SPRAY NASAL TWICE A DAY April Mar ch Propionate nued 2018 1:00am 11:30a m Isosorbide Disconti 30 MG PO DAILY Novemberem Mononitrate nued 2021 8th, 12:00am 2021 12:22p m Metoprolol Active 100 MG PO DAILY November Succinate 2021 12:00am Olanzapine Active 2.5 MG PO TWICE A DAY November 20, 2021 12:00am Aspirin Disconti 81 MG PO DAILY Novemberem nu2021 8th, 12:00am 2021 12:22p m Levothyroxine Active 75 MCG PO DAILY@0600 November 20, 2021 12:00am Gabapentin Active 300 MG PO TWICE A DAY November 20, 2021 12:00am Albuterol Active 2 INH INH DAILY November 12:00am Lisinopril Active 2.5 MG PO DAILY November 20, 2021 12:00am Naproxen Disconti 500 MG PO TWICE A DAY November 8th, 12:00am 2021 12:22p m Cyclobenzapri Active 5 MG PO DAILY November 12:00am Trazodone Active 100 MG PO ONCE DAILY November AT BEDTIME 2021 12:00am Melatonin Disconti 5 MG PO ONCE DAILY Novembered AT BEDTIME 2021 12:00am 3:14pm Sennosides Disconti 8.6 MG PO TWICE A DAY November Augus t (Senna) 8.6 , mg Capsule 2021 2021 12:00am 3:28pm Multivitamin Disconti 1 TAB PO DAILY November nu2021, 12:00am 2021 8:07am Metformin Disconti 500 MG PO TWICE A DAY Novemberem nued 2021, 12:00am 2021 8:02am Diphenhydrami Active 50 MG PO DAILY November Hcl 2021 12:00am Magnesium Disconti 30 ML PO DAILY [place] Septem Hydroxide nued , mike (Milk Of 2021, Magnesia) 400 12:00am 2021 mg/5 mL 8:08am Suspension Bismuth Active 524 MG PO DAILY November do not exc eed Subsalicylate , dose s in a (Kaopectate 2021 24 hour (Bismuth 12:00am period Subsalicy)) 262 mg/15 mL Suspension Lidocaine Active 1 PATCH TOPICAL DAILY November leave on most , painful area 2021 for up to 12 12:00am hrs Melatonin Active 3 MG PO DAILY December 01, 2021 12:00am Sennosides Disconti 17.2 MG PO DAILY November (Senna) 8.6 nued , mike mg capsule 2021 10, 3:28pm 2021 11:43a m Rivaroxaban Disconti 0 .ROUTE .COMPLEX 1 Sept Sept m take one-15 (Xarelto nued er , mike mg tablet Dvt-Pe Treat 2021, twice d aily 30d Start) 15 12:00am 2021 for 21 days, mg (42)- 20 3:56pm then on e-20 mg (9) mg tablet Tablets,Dose once da meggan; Pack must take with meal/food Acetaminophen Active 650 MG PO DAILY Septemb er 2021 12:00am Rivaroxaban Disconti 15 MG PO TWICE A DAY Sep tem Continue (Xarelto) 15 nued er , mike until mg Tablet 2022 03, 12/29/2021 12:00am 2021 12:48p m Rivaroxaban Disconti [address] art from (Xarelto) 20 nued er 8th, mike 12/30 mg Tablet 2021, 12:00am 2021 3:56pm Nicotine Active 1 PATCH TRANSDE EVERY 24 15 Decemb RM HOURS er 2021 12:25pm Rivaroxaban Disconti 15 MG PO TWICE A DAY 0 Sep tem Xarelto 15 mg p.o. twice daily, until 12/29/2021 (Xarelto) 15 nued er mike Patient should be continued on Xarelto 20 mg p.o. daily from 12/30/2021. mg Tablet 2021 12:47pm 3:56pm Procedures Procedure Date Performed Status EKG ED Electrocardiogram December 01, 2021 9:08am completed XR chest 2V December 01, 2021 9:13am completed EKG ED Electrocardiogram December 01, 2021 10:05am completed EKG ED Electrocardiogram December 29, 2021 4:13pm complet ed CT head/brain wo contrast December 29, 2021 4:21pm comple devendra CT angio chest with contrast December 29, 2021 4:46pm com pleted XR chest 1V portable December 29, 2021 4:13pm completed EKG ED Electrocardiogram December 29, 2021 1:42pm complet ed CT head/brain wo contrast December 07, 2021 8:23pm complet ed CT cervical spine wo contrast December 07, 2021 8:28pm com pleted EKG ED Electrocardiogram December 07, 2021 8:29pm active CT thoracic spine wo contrast December 07, 2021 8:29pm com pleted CT abdomen pelvis w contrast December 07, 2021 8:31pm comp leted CT chest w contrast December 07, 2021 9:35pm completed EKG Electrocardiogram December 08, 2021 8:00am completed US venous duplex LE BI December 08, 2021 8:28am completed Echo TTE comp w/dop w contrast December 08, 2021 8:25am co mpleted SARS-CoV-2, Influenza & RSV (PCR) comple devendra EKG ED Electrocardiogram December 10, 2021 8:54pm complete d XR chest 1V portable December 10, 2021 8:54pm completed EKG Electrocardiogram December 12, 2021 12:52pm completed Relevant Diagnostic Tests and/or Laboratory Data Laboratory Results Test Date/Time Result Interpretation Reference Result Perfo rming Range Comment Site Add-On Test December Added test Good [facility] Request 2021 235 [facility] 1:50am Joseph M A [id number] White Blood December 7.2 X10 4.5-11.0 [facility] Count 2021 3/uL [address] [facility] 6:11am Joseph M A 38850 White Blood December 6.2 X10 4.5-11.0 [facility] Count 2021 3/uL 235 [facility] 6:27am Joseph M A [id number] White Blood Brittany 8.3 X10 4.5-11.0 [facility] Count 2021 3/uL [address] [facility] 7:04am Joseph M A 89734 White Blood Brittany 6.3 X10 4.5-11.0 [facility] Count 2021 3/uL 235 [facility] 9:06am Joseph M A 09034 Red Blood Count Brittany 4.53 X10 4.00-5.50 [facility] 2021 6/uL 235 [facility] 6:11am Joseph M A 94182 Red Blood Count Brittany 4.02 X10 4.00-5.50 [facility] 2021 6/uL 235 [facility] 6:27am Joseph M A 38833 Red Blood Count Brittany 4.49 X10 4.00-5.50 [facility] 2021 6/uL 235 [facility] 7:04am Joseph M A 58665 Red Blood Count Brittany 4.41 X10 4.00-5.50 [facility] 2021 6/uL 235 [facility] 9:06am Joseph M A 69115 Hemoglobin Brittany 13.7 g/dl 12.0-17.0 [facility] 2021 [facility] 6:11am Joseph M A 33572 Hemoglobin Brittany 12.5 g/dl 12.0-17.0 [facility] 2021 [address] [facility] 6:27am Joseph M A 89971 Hemoglobin Brittany 13.3 g/dl 12.0-17.0 [facility] 2021 235 [facility] 7:04am Joseph M A 97605 Hemoglobin Brittany 13.2 g/dl 12.0-17.0 [facility] 2021 235 [facility] 9:06am Joseph M A 75555 Hematocrit Brittany 41.9 % 35.0-50.0 [facility] 2021 [address] [facility] 6:11am Joseph M A 13048 Hematocrit Brittany 37.3 % 35.0-50.0 [facility] [address] [facility] [address] 6:27am [facility] A 81918 Hematocrit December 40.8 % 35.0-50.0 [facility] 2021 [address] [facility] [address] 7:04am [facility] A 34880 Hematocrit December 41.0 % 35.0-50.0 [facility] 2021 [address] [facility] [address] 9:06am [facility] A 07806 Mean December 92.5 fl 80.0-100.0 [facility] Corpuscular [address] Volume 6:11am [facility] A 60846 Mean December 92.8 fl 80.0-100.0 [facility] Corpuscular 2021 [facility] Volume 6:27am [facility] A 55623 Mean December 90.9 fl 80.0-100.0 [facility] Corpuscular [address] [facility] [address] Volume 7:04am [facility] A 91150 Mean December 93.0 fl 80.0-100.0 [facility] Corpuscular [address] Volume 9:06am [facility] A 68486 Mean December 30.2 pg 27.0-34.0 [facility] [address] Hemoglobin 6:11am [facility] 88091 Mean December 31.1 pg 27.0-34.0 [facility] [address] Hemoglobin 6:27am [facility] 74855 Mean December 29.6 pg 27.0-34.0 [facility] [address] Hemoglobin 7:04am [facility] 63401 Mean December 29.9 pg 27.0-34.0 [facility] [address] Hemoglobin 9:06am [facility] 55749 Mean December 32.7 g/dl 31.0-36.0 [facility] [address] Hemoglobin 6:11am Francesco VILLALOBOS 408[address] Concent Mean December 33.5 g/dl 31.0-36.0 [facility] [address] Hemoglobin 6:27[place] [address] Concent Mean December 32.6 g/dl 31.0-36.0 [facility] [address] Hemoglobin 7:04am Francesco VILLALOBOS 19192 Concent Mean December 32.2 g/dl 31.0-36.0 [facility] [address] Hemoglobin 9:06am Francesco VILLALOBOS 68537 Concent Red Cell Brittany 12.5 % 11.5-15.0 [facility] [address] Width 6:11am Joseph M A 89578 Red Cell Brittany 12.3 % 11.5-15.0 [facility] [address] Width 6:27am Joseph [place] A 44629 Red Cell Brittany 12.4 % 11.5-15.0 [facility] [address] Width 7:04am Joseph M A 61698 Red Cell December 13.0 % 11.5-15.0 [facility] [address] Width 9:06am Joseph Orlando A 79014 Platelet Count December 103 X10 150-400 [facility] 2021 3/uL with previous [address] 6:11am results Joseph M A 14336 Platelet Count December 90 X10 3/uL 150-400 [facility] 2021 with previous [address] 6:27am results Joseph M A 46999 Platelet Count December 101 X10 150-400 [facility] 2021 3/uL [address] 7:04am Joseph M A 08731 Platelet Count December 75 X10 3/uL 150-400 [facility] [address] 9:06am Joseph M A 17654 Immature Brittany 1.9 % [facility] Granulocyte % [address] (Auto) 6:11am Joseph M A 35141 Immature Brittany 3.6 % [facility] Granulocyte % [address] (Auto) 9:28pm Joseph M A 44931 Immature Brittany 1.7 % [facility] Granulocyte % [address] (Auto) 2:00pm Joseph M A 71439 Neutrophils (%) December 61.5 % [facility] (Auto) 2021 [address] [facility] [address] 6:11am Joseph M A 60355 Neutrophils (%) December Not [facility] (Auto) 2021 Reportable [address] [facility] [address] 6:27am Joseph M A 35671 Neutrophils (%) December Not [facility] (Auto) 2021 Reportable [address] 7:04am Joseph M A 88814 Neutrophils (%) Brittany 61.5 % [facility] (Auto) 2021 [address] [facility] [address] 2:00pm Joseph M A 87238 Lymphocytes (%) Brittany 19.3 % [facility] (Auto) 2021 [address] [facility] [address] 6:11am Joseph M A 11433 Lymphocytes (%) December Not [facility] (Auto) 2021 Reportable [address] [facility] [facility] [address] 6:27am Joseph M A 89777 Lymphocytes (%) Brittany Not [facility] (Auto) 2021 Reportable [address] 7:04am Joseph M A 27654 Lymphocytes (%) Brittany 18.6 % [facility] (Auto) 2021 [address] [facility] [address] 2:00pm Joseph M A 05815 Monocytes (%) December 10.0 % [facility] (Auto) 2021 [address] [facility] [facility] [address] 6:11am Joseph M A 20906 Monocytes (%) December Not [facility] (Auto) 2021 Reportable [address] 6:27am Joseph M A 44732 Monocytes (%) December Not [facility] (Auto) 2021 Reportable [address] 7:04am Joseph M A 17272 Monocytes (%) Brittany 10.1 % [facility] (Auto) [address] 2:00pm Joseph M A 06563 Eosinophils (%) Brittany 6.0 % [facility] (Auto) [address] 6:11am Joseph M A 11405 Eosinophils (%) Brittany Not [facility] (Auto) 2021 Reportable [address] 6:27am Joseph M A 34120 Eosinophils (%) December Not [facility] (Auto) 2021 Reportable [address] 7:04am Joseph M A 60239 Eosinophils (%) Brittany 7.2 % [facility] (Auto) [address] 2:00pm Joseph M A 74412 Basophils (%) Brittany 1.3 % [facility] (Auto) [address] 6:11am Joseph M A 59413 Basophils (%) December Not [facility] (Auto) 2021 Reportable [address] 6:27am Joseph M A 99789 Basophils (%) December Not [facility] (Auto) 2021 Reportable [address] [facility] [address] 7:04am Joseph M A 20209 Basophils (%) December 0.9 % [facility] (Auto) [address] 2:00pm Joseph M A 90153 Immature Brittany 0.14 X10 0.00-0.09 [facility] Granulocyte # 2021 3/uL [address] (Auto) 6:11am Joseph M A 47940 Immature Brittany 0.28 X10 0.00-0.09 [facility] Granulocyte # 2021 3/uL [address] (Auto) 9:28pm Joseph M A 89884 Immature Brittany 0.12 X10 0.00-0.09 [facility] Granulocyte # 2021 3/uL 235 [facility] (Auto) 2:00pm Joseph M A 29932 Neutrophils # Brittany 4.4 X10 1.5-7.8 [facility] (Auto) 2021 3/uL 235 [facility] 6:11am Joseph M A 43803 Neutrophils # Brittany Not [facility] (Auto) 2021 Reportable 235 [facility] 6:27am Joseph M A 85154 Neutrophils # Brittany Not [facility] (Auto) 2021 Reportable 235 [facility] 7:04am Joseph M A 33114 Neutrophils # Brittany 4.3 X10 1.5-7.8 [facility] (Auto) 2021 3/uL 235 [facility] 2:00pm Joseph M A 41378 Lymphocytes # Brittany 1.4 X10 1.0-4.8 [facility] (Auto) 2021 3/uL 235 [facility] 6:11am Joseph M A 88441 Lymphocytes # Brittany Not [facility] (Auto) 2021 Reportable 235 [facility] 6:27am Joseph M A 45523 Lymphocytes # Brittany Not [facility] (Auto) [address] [place] [address] 7:04am Joseph M A 78325 Lymphocytes # Brittany 1.3 X10 1.0-4.8 [facility] (Auto) 2021 3/uL 235 [facility] 2:00pm Joseph M A 21946 Monocytes # Brittany 0.7 X10 0.0-0.8 [facility] (Auto) 2021 3/uL 235 [facility] 6:11am Joseph M A 29198 Monocytes # Brittany 0.7 X10 0.0-0.8 [facility] (Auto) 2021 3/uL 235 [facility] 9:28pm Joseph M A 55141 Monocytes # Brittany 0.7 X10 0.0-0.8 [facility] (Auto) 2021 3/uL [address] [facility] [address] 2:00pm Joseph M A 75933 Eosinophils # Brittany 0.4 X10 0.0-0.5 [facility] (Auto) 2021 3/uL [address] [facility] [address] 6:11am Joseph M A 97941 Eosinophils # Brittany 0.6 X10 0.0-0.5 [facility] (Auto) 2021 3/uL 235 [facility] 9:28pm Joseph M A 91753 Eosinophils # Brittany 0.5 X10 0.0-0.5 [facility] (Auto) 2021 3/uL 235 [facility] 2:00pm Joseph M A 40760 Basophils # Brittany 0.1 X10 0.0-0.2 [facility] (Auto) 2021 3/uL 235 [facility] 6:11am Joseph M A 14621 Basophils # Brittany Not [facility] (Auto) 2021 Reportable 235 [facility] 6:27am Joseph M A 96303 Basophils # Brittany Not [facility] (Auto) 2021 Reportable 235 [facility] 7:04am Joseph M A 69534 Basophils # Brittany 0.1 X10 0.0-0.2 [facility] (Auto) 2021 3/uL 235 [facility] 2:00pm Joseph M A 61733 Neutrophils % Brittany 59 % [facility] (Manual) 2021 235 [facility] 6:27am Joseph M A 87193 Neutrophils % Brittany 51 % [facility] (Manual) 2021 235 [facility] 7:04am Joseph M A 19542 Neutrophils % Brittany 70 % [facility] (Manual) 2021 235 [facility] 9:06am Joseph M A 81460 Band Brittany 1 % 0-6 [facility] Neutrophils % [address] (Manual) 6:27am Joseph M A 91022 Band Brittany 2 % 0-6 [facility] Neutrophils % 2021 N [facility] (Manual) 7:04am Joseph M A 24113 Lymphocytes % Brittany 19 % [facility] (Manual) 2021 [facility] 6:27am Joseph M A 02027 Lymphocytes % Brittany 28 % [facility] (Manual) [address] [facility] [address] 7:04am Joseph M A 64086 Lymphocytes % Brittany 16 % [facility] (Manual) 2021 [facility] 9:06am Joseph M A 44013 Reactive Brittany 1 % [facility] Lymphocytes % 2021 No rth [facility] (Manual) 6:27am Joseph M A 38967 Reactive Brittany 2 % [facility] Lymphocytes % 2021 N [facility] (Manual) 7:04am Joseph M A 57717 Monocytes % Brittany 8 % [facility] (Manual) 2021 [facility] 6:27am Joseph M A 87576 Monocytes % Brittany 13 % [facility] (Manual) 2021 [facility] 7:04am Joseph M A 03913 Monocytes % Brittany 5 % [facility] (Manual) 2021 [facility] 9:06am Joseph M A 92277 Eosinophils % Brittany 9 % [facility] (Manual) 2021 [facility] 6:27am Joseph M A 98263 Eosinophils % Brittany 4 % [facility] (Manual) 2021 [facility] 7:04am Joseph M A 93660 Eosinophils % Brittany 9 % [facility] (Manual) 2021 [facility] 9:06am Joseph M A 22397 Basophils % Brittany 1 % [facility] (Manual) 2021 [facility] 8:48pm Joseph M A 35812 Metamyelocytes Brittany 3 % 0-1 [facility] % (manual) 8th, [address] [place] [address] 6:27am Joseph M A 22514 Myelocytes % Brittany 2 % 0-0 [facility] (Manual) [address] [place] [address] 8:48pm Joseph M A 54928 Neutrophils # Brittany 3.7 X10 1.5-7.8 [facility] (Manual) 2021 3/uL [address] [place] [address] 6:27am Joseph M A 79291 Neutrophils # Brittany 4.4 X10 1.5-7.8 [facility] [facility] (Manual) 2021 3/uL [address] [place] [address] 7:04am Joseph M A 55885 Neutrophils # Brittany 4.4 X10 1.5-7.8 [facility] (Manual) 2021 3/[address] 9:06am Joseph M A 24906 Lymphocytes # Brittany 1.2 X10 1.0-4.8 [facility] (Manual) 2021 3/uL [address] [place] [address] 6:27am Joseph M A 72624 Lymphocytes # Brittany 2.5 X10 1.0-4.8 [facility] (Manual) 2021 3/uL [address] [place] [address] 7:04am Joseph M A 12125 Lymphocytes # Brittany 1.0 X10 1.0-4.8 [facility] (Manual) 2021 3/uL [address] [place] [address] 9:06am Joseph M A 14199 Monocytes # Brittany 0.5 X10 0.0-0.8 [facility] (Manual) 2021 3/uL [address] [place] [address] 6:27am Joseph M A 94517 Monocytes # Brittany 1.1 X10 0.0-0.8 [facility] (Manual) 2021 3/uL [address] [place] [address] 7:04am Joseph M A 37243 Monocytes # Brittany 0.3 X10 0.0-0.8 [facility] (Manual) 2021 3/uL [address] [place] [address] 9:06am Joseph M A 30697 Eosinophils # Brittany 0.6 X10 0.0-0.5 [facility] (Manual) 2021 3/uL [address] 6:27am Joseph M A 59493 Eosinophils # Brittany 0.3 X10 0.0-0.5 [facility] (Manual) 2021 3/uL [address] 7:04am Joseph M A 31454 Eosinophils # Brittany 0.6 X10 0.0-0.5 [facility] (Manual) 2021 3/uL [address] 9:06am Joseph M A 88960 Basophils # Brittany 0.1 X10 0.0-0.2 [facility] (Manual) 2021 3/uL 235 [facility] 8:48pm Joseph M A [address] [facility] Estimate 2021 235 [facility] 6:27am Joseph M A [address] [facility] Estimate 2021 235 [facility] 7:04am Joseph M A [address] [facility] Estimate 2021 235 [facility] 9:06am Joseph M A 85928 Red Blood Cell Brittany Normal [facility] Morphology 2021 morphology [address] [facility] [address] 8:53am Joseph M A 66877 Red Blood Cell Brittany Normal [facility] Morphology 2021 morphology [address] [facility] [address] 7:04am Joseph M A 48296 Polychromasia Brittany Slight [facility] 2021 [address] 6:27am Joseph M A 48783 Hypochromasia Brittany Slight [facility] 2021 235 [facility] 6:27am Joseph M A 80527 Macrocytosis Brittany Slight [facility] 2021 [address] 9:06am Joseph M A 93444 Ovalocytes Brittany Slight [facility] 2021 [address] 6:27am Joseph M A 53124 Ovalocytes Brittany Slight [facility] 2021 [address] [facility] 9:06am Joseph M A 45231 Nucleated Red Brittany 0.0 /100 0.0-0.0 [facility] Blood Cells % 2021 [facility]BC [address] 6:11am Francesco Perry A 27788 Nucleated Red Brittany 0.0 /100 0.0-0.0 [facility] Blood Cells % 2021 WBC [address] 6:27am Francesco Perry A [address]13 Nucleated Red Brittany 0.0 /100 0.0-0.0 [facility] Blood Cells % 2021 WBC [address] 7:04am Francesco Perry A 01898 Nucleated Red Brittany 0.0 /100 0.0-0.0 [facility] Blood Cells % 2021 WBC [address] [facility] [address] 9:06am Francesco [place] A 91021 Urine Color December Yellow Yellow [facility] 2021 235 [facility] 12:23am [place] A [address] Urine Clarity December Clear Clear [facility] 2021 [address] 12:23am Francesco Perry A 33349 Urine pH December 5.5 5.0-8.0 [facility] 2021 235 [facility] 12:23am Francesco Perry A 68799 Urine Specific Brittany 1.007 1.005-1.03 [facility] [place] 2021 0 235 [facility] 12:23am Francesco Perry A 45310 Urine Blood December Negative Negative [facility] 2021 mg/dL 235 [facility] 12:23am Francesco Perry A 71890 Urine Protein December Negative Negative [facility] 2021 mg/dL 235 [facility] 12:23am Francesco Perry A 71954 Urine Glucose December Negative Negative [facility] (UA) 2021 mg/dl 235 [facility] 12:23am Francesco Perry A 59920 Urine Ketones December Negative Negative [facility] 2021 mg/dL 235 [facility] 12:23am Francesco Perry A 65695 Urine Nitrate December Negative Negative [facility] 2021 [address] [facility] [address] 12:23am Joseph M A 00095 Urine Bilirubin December Negative Negative [facility] 2021 mg/dL 235 [facility] 12:23am Joseph M A 81341 Urine Brittany 0.2 E.U./dL Normal [facility] Urobilinogen 2021 235 [facility] 12:23am Joseph M A 06650 Urine Leukocyte December Negative Negative [facility] Esterase 2021 mg/dL 235 [facility] 12:23am Joseph M A 99290 Sodium Level December 138 mmol/L 137-146 [facility] 2021 235 [facility] 6:11am Joseph M A 83604 Sodium Level December 143 mmol/L 137-146 [facility] 2021 235 [facility] 6:27am Joseph M A 95442 Sodium Level December 141 mmol/L 137-146 [facility] 2021 235 [facility] 7:04am Joseph M A 13313 Sodium Level December 140 mmol/L 137-146 [facility] 2021 235 [facility] 9:06am Joseph M A 29215 Potassium Level December 4.6 mmol/L 3.5-5.3 Specimen [facility] 2021 hemolyzed, [facility] 6:11am results Joseph M A 02215 affected Potassium Level December 4.5 mmol/L 3.5-5.3 [facility] 2021 235 [facility] 6:27am Joseph M A 14070 Potassium Level December 4.3 mmol/L 3.5-5.3 [facility] 2021 235 [facility] 7:04am Joseph M A 85939 Potassium Level December 4.4 mmol/L 3.5-5.3 Specimen [facility] 2021 hemolyzed, 235 [facility] 9:06am results Joseph M A 00972 affected Chloride Level December 99 mmol/L 98-107 [facility] 2021 235 [facility] 6:11am Joseph M A 49966 Chloride Level December 103 mmol/L 98-107 [facility] 2021 [address] [facility] [facility] [facility] [address] 6:27am Joseph M A 03301 Chloride Level December 103 mmol/L 107 [facility] 2021 [address] [facility] [facility] [facility] [address] 7:04am Joseph M A 64425 Chloride Level December 103 mmol/L 107 [facility] 2021 [address] [facility] [facility] [facility] [address] 9:06am Joseph M A 75728 Carbon Dioxide December 23 mmol/L [facility] Level 2021 235 [facility] 6:11am Joseph M A 46394 Carbon Dioxide December 29 mmol/L [facility] Level 2021 235 [facility] 6:27am Joseph M A 42579 Carbon Dioxide December 29 mmol/L [facility] Level 2021 235 [facility] 7:04am Joseph M A 43025 Carbon Dioxide December 26 mmol/L [facility] Level 2021 235 [facility] 9:06am Joseph M A 13570 Anion Gap December 16 mmol/L 08-15 [facility] 2021 235 [facility] 6:11am Joseph M A 10220 Anion Gap December 11 mmol/L 08-15 [facility] 2021 235 [facility] 6:27am Joseph M A 51452 Anion Gap December 9 mmol/L 08-15 [facility] 2021 [address] [facility] [address] 7:04am Joseph M A 15957 Anion Gap December 12 mmol/L 08-15 [facility] 2021 235 [facility] 9:06am Joseph M A 47050 Blood Urea December 31 mg/dl 08-25 [facility] Nitrogen 2021 [address] [facility] [facility] [facility] [address] 6:11am Joseph M A 52945 Blood Urea December 23 mg/dl 08-25 [facility] Nitrogen 2021 [address] [facility] [facility] [facility] [address] 6:27am Joseph M A 22518 Blood Urea December 22 mg/dl 08-25 [facility] Nitrogen 2021 235 [facility] 7:04am Joseph M A 03761 Blood Urea December 17 mg/dl 5-25 [facility] Nitrogen 2021 235 [facility] 9:06am Joseph M A 05638 Creatinine December 1.3 mg/dL 0.6-1.4 [facility] 2021 235 [facility] 6:11am Joseph M A 46935 Creatinine Brittany 1.2 mg/dL 0.6-1.4 [facility] 2021 235 [facility] 6:27am Joseph M A 11721 Creatinine Brittany 1.1 mg/dL 0.6-1.4 [facility] 2021 [address] [facility] [facility] [address] 7:04am Joseph M A 94001 Creatinine December 1.2 mg/dL 0.6-1.4 [facility] 2021 235 [facility] 9:06am Joseph M A 28711 Estimated December 75.2 ml/min This value [facility] Creatinine 2021 is calculated [address] Clearance 6:11am [place] [address] Gault Equation using ideal body weight. This result is dependent on an accurate patient height and weight which is obtained from patients medical record. Cockcroft, D.W. and M.H. Gault. Prediction of creatinine clearance from serum creatinine. Nephron. 1975. 16(1):31-41. Estimated December 81.9 ml/min This value [facility] Creatinine 2021 is calculated [address] Clearance 6:27am [place] [address] Gault Equation using ideal body weight. This result is dependent on an accurate patient height and weight which is obtained from patients medical record. Cockcroft, D.W. and M.H. Gault. Prediction of creatinine clearance from serum creatinine. Nephron. 1975. 16(1):31-41. 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 Creatinine 2021 Calculate [address] Clearance 7:04am CRCL,Ht Joseph M A 11013 and/or Wt missing Estimated December 80.6 ml/min This value [facility] Creatinine 2021 is calculated [address] Clearance 9:06am [place] [address] Gault Equation using ideal body weight. This result is dependent on an accurate patient height and weight which is obtained from patients medical record. Joey Guzman. and M.H. Gault. Prediction of creatinine clearance from serum creatinine. Nephron. 1976. 16(1):31-41. Estimated GFR December 69 >60 [facility] ( [address] Pakistani) 6:11am Joseph M A 50480 Estimated GFR December 76 >60 [facility] ( [address] Pakistani) 6:27am Joseph M A 50135 Estimated GFR December 85 >60 [facility] ( [address] Pakistani) 7:04am Joseph M A 26707 Estimated GFR December 76 >60 [facility] ( [address] Pakistani) 9:06am Joseph M A 03695 Estimated GFR December 60 >60 [facility] (Non- [address] Pakistani 6:11am Joseph M A 11534 Estimated GFR December 66 >60 [facility] (Non- [address] Pakistani 6:27am Joseph M A 00068 Estimated GFR December 73 >60 [facility] (Non- [address] Pakistani 7:04am Joseph M A 27926 Estimated GFR December 66 >60 [facility] (Non- [address] Pakistani 9:06am Joseph M A 17928 BUN/Creatinine December 23.8 10.0-20.0 [facility] Ratio [address] 6:11am Joseph M A 05706 BUN/Creatinine December 19.2 10.0-20.0 [facility] Ratio [address] 6:27am Joseph M A 74874 BUN/Creatinine December 20.0 10.0-20.0 [facility] Ratio 2021 [facility] 7:04am Joseph M A 36379 BUN/Creatinine December 14.2 10.0-20.0 [facility] Ratio 2021 [facility] 9:06am Joseph M A 20527 Glucose Level Brittany 145 mg/dL 70-100 [facility] 2021 [facility] 6:11am Joseph M A 92953 Glucose Level Brittany 103 mg/dL 70-100 [facility] 2021 [facility] 6:27am Joseph M A 44573 Glucose Level Brittany 131 mg/dL 70-100 [facility] 2021 [facility] 7:04am Joseph M A 67435 Glucose Level Brittany 147 mg/dL 70-100 [facility] 2021 [facility] 9:06am Joseph M A 20543 Calcium Level Brittany 8.4 mg/dl 8.6-10.3 [facility] 2021 235 [facility] 6:11am Joseph M A 81355 Calcium Level Brittany 8.5 mg/dl 8.6-10.3 [facility] 2021 235 [facility] 6:27am Joseph M A 52605 Calcium Level Brittany 8.7 mg/dl 8.6-10.3 [facility] 2021 [facility] 7:04am Joseph M A 92243 Calcium Level Brittany 8.2 mg/dl 8.6-10.3 [facility] 2021 235 [facility] 9:06am Joseph M A 91552 Phosphorus Brittany 4.6 mg/dL 2.5-4.5 [facility] Level 2021 235 [facility] 6:27am Joseph M A 18290 Magnesium Level Brittany 1.9 mg/dL 1.8-2.5 [facility] 2021 [facility] 6:27am Joseph M A 90741 Magnesium Level Brittany 2.0 mg/dL 1.8-2.5 [facility] 2021 235 [facility] 9:28pm Francesco Perry A 41680 Total Bilirubin November 0.4 mg/dl <1.1 [facility] 2021 235 [facility] 9:49am Francesco Perry A 73855 Total Bilirubin Brittany 0.4 mg/dl <1.1 [facility] 2021 235 [facility] 6:27am Francesco Perry A 87902 Total Bilirubin Brittany 0.4 mg/dl <1.1 [facility] 2021 235 [facility] 2:00pm Francesco Mendosa 10845 Aspartate Amino November 17 U/L [facility] Transf 2021 [facility] (AST/SGOT) 9:49am Francesco VILLALOBOS 03534 Aspartate Amino December 14 U/L [facility] Transf 2021 235 [facility] (AST/SGOT) 6:27am Francesco VILLALOBOS 66526 Aspartate Amino December 13 U/L [facility] Transf 2021 235 [facility] (AST/SGOT) 2:00pm Francesco VILLALOBOS 93542 Alanine November 20 U/L 14 [facility] Aminotransferas 2021 235 [facility] e (ALT/SGPT) 9:49[place] [address] Alanine December 17 U/L [facility] Aminotransferas 2021 235 [facility] e (ALT/SGPT) 6:27[place] [address] Alanine December 13 U/L 63 [facility] Aminotransferas 2021 [facility] e (ALT/SGPT) 2:00pm [place] [address] Troponin T High November 16 ng/L <13 Normal range: Females <9 ng/L [facility] Sensitivity 2021 Males <14 ng/L 2 35 [facility] 1:09pm Francesco Mendosa 01747 Values greater than or equal to 52 [...] for the inpatient setting). Troponin T High December 11 ng/L <13 Normal range: Females <9 ng/L [facility] Sensitivity 2021 Males <14 ng/L 23 5 [facility] 12:05am [facility] A 14886 Values greater than or equal to 52 [...] for the inpatient setting). Troponin T High December 09 ng/L <13 Normal range: Females <9 ng/L [facility] Sensitivity 2021 Males <14 ng/L 2 35 [facility] 3:55pm Francesco Perry A 38747 Values greater than or equal to 52 [...] for the inpatient setting). Troponin T High December 09 ng/L <13 Normal range: Females <9 ng/L [facility] Sensitivity 2021 Males <14 ng/L 2 35 [facility] 8:06pm Francesco Perry A 73600 Values greater than or equal to 52 [...] score for the inpatient setting). Total Protein [place] 6.7 g/dL 6.4-8.3 [facility] 2021 235 [facility] 9:49am Joseph M A 58796 Total Protein December 6.2 g/dL 6.4-8.3 [facility] 2021 235 [facility] 6:27am Joseph M A 94138 Total Protein Brittany 6.5 g/dL 6.4-8.3 [facility] 2021 235 [facility] 2:00pm Joseph M A 95848 Albumin [place] 4.3 g/dl 4.0-5.0 [facility] 2021 235 [facility] 9:49am Joseph M A 93369 Albumin Brittany 3.7 g/dl 4.0-5.0 [facility] 2021 235 [facility] 6:27am Joseph M A 20102 Albumin Brittany 3.8 g/dl 4.0-5.0 [facility] 2021 235 [facility] 2:00pm Joseph M A 95361 Albumin/Globuli [place] 1.8 1.0-2.6 [facility] n Ratio 2021 235 [facility] 9:49am Joseph M A 82135 Albumin/Globuli Brittany 1.5 1.0-2.6 [facility] n Ratio 2021 235 [facility] 6:27am Joseph M A 66461 Albumin/Globuli Brittany 1.4 1.0-2.6 [facility] n Ratio 2021 235 [facility] 2:00pm Joseph M A 66799 Triglycerides December 246 mg/dL <150 200 - 499 [facility] Level 2021 mg/dL = High [address] 9:06am Joseph M A 60173 Cholesterol December 214 mg/dl <199 200-239 mg/dL [facility] Level 2021 = Borderline [address] 9:06am Joseph M A 67366 LDL December 122 mg/dl <129 [facility] Cholesterol, [address] Calculated 9:06am [facility] [address] HDL Cholesterol December 43 mg/dL >40 < 40 mg/d l: Low HDL-cholesterol(major risk factor for CHD) [facility] 2021 >/= 60 mg/dl: High HDL-cholesterol(negative risk factor for CHD) 235 [facility] 9:06am HDL-cholestero l is affected by a number of factors, e.g., smoking, excercise, hormones, sex and age. Francesco VILLALOBOS 14475 Cholesterol Brittany 2.8 LDL/HDL Interpreta tion: [facility] Ratio (LDL/HDL) 2021 Ratio Men Wom en 235 [facility] 9:06am 1/2 Average 1.00 1.4 7 [facility] 32145 Average 3.55 3.22 2X Average 6.25 5.03 3X Average 7.99 6.14 Cholesterol/HDL Brittany 5.0 Cholesterol/HD L Interpretation: [facility] Ratio 2021 Ratio Men Women 23 5 [facility] 9:06am 1/2 Average 3.43 3. 27 [facility] 53137 Average 4.97 4.44 2X Average 9.55 7.0 5 3X Average 23.39 11 .04 Alkaline [place] 84 U/L 40-129 [facility] Phosphatase 2021 235 [facility] 9:49am Francesco Deondre 35105 Alkaline Brittany 73 U/L 40-129 [facility] Phosphatase 2021 235 [facility] 6:27am Francesco Mendosa 70470 Alkaline Brittany 72 U/L 40-129 [facility] Phosphatase 2021 235 [facility] 2:00pm Francesco Mendosa 06540 Lipase Brittany 30 U/L 13-60 [facility] 2021 235 [facility] 8:48pm Francesco Mendosa 27950 Thyroid Brittany 3.86 uIU/mL 0.34-5.60 [facility] Stimulating 2021 235 [facility] Hormone (TSH) 9:28[place] [address] Bedside Glucose December 181 mg/dl 70-100 NOTE: Any discrepancy between finger stick glucose result [facility] 2021 and patient's clini joanne presentation should be 235 [facility] 11:40am confirmed by the de boratory. [facility] Bedside Glucose December 121 mg/dl 70-100 NOTE: Any discrepancy between finger stick glucose result [facility] 2021 and patient's clini joanne presentation should be [address] [facility] [address] 10:57am confirmed by the de boratory. [facility] Bedside Glucose December 256 mg/dl 70-100 NOTE: Any discrepancy between finger stick glucose result [facility] 2021 and patient's clin ical presentation should be 235 [facility] 11:31am confirmed by the de boratory. [facility] Bedside Glucose December 144 mg/dl 70-100 NOTE: Any discrepancy between finger stick glucose result [facility] 2021 and patient's clin ical presentation should be 235 [facility] 10:28am confirmed by the de boratory. [facility] Microbiology Results Procedure Source Result Collection Result Result Performin g Date/Time Date/Time Comment Site SARS-CoV-2, Nares, Both December [facility] Influenza & Left & [address] [facility] RSV (PCR) Right 2:18am Francesco Mendosa 88563 Diagnostic Imaging Reports Report Dictated Date/Time Dictated By Status Radiology Report December 01, 2021 10:06am Fer Dodge MD compl eted [address] [address] Patient Name: Joaquín Barrientos [facility] rd#: [id number] Address: [address] City/State/Zip: [place] [address]: Prakash Saravia MD Insurance: [facility] /Age/Sex: 1960/61/M Self Pay Admit/Reg Date: 12/01/[address]: HEAVENLY Montes De Oca Location: ED.GS/ PCP: Pcp-Non Staff, Date of Service: 12/01/21 Order (s): XR chest 2V CPT Code: 53300 Report Number: [id number] Reason for Exam: chest pain Patient [...] Dodge MD 12/01/21 1011 TD/TT: 12/01/21 1006Tech: [facility] cc: LOGEM; PCPNS; RICJACQUELINE* DAKOTA Owen; Prakash Saravia MD; TERESSA CONCEPCION Report Dictated Date/Time Dictated By Status Electrocardiogram December 01, 2021 8:57am Prakash Saravia MD comp [place] [id number] Patient Name: Joaquín Barrientos [facility] rd#: [id number] Address: [address] City/State/Zip: [place] [address]: Sean Salmeron MD Insurance: [facility] /Age/Sex: 1960/61/M Self Pay Admit/Reg Date: 12/01/[address]: HEAVENLY Montes De Oca [facility] P[facility]: Pcp-Beba lopes Md Date of Service: 12/01/21 Order (s): EKG ED Electrocardiogram CPT Code: 85752 Report Number: [id number] Reason for Exam: Chest pain CONSIDER ACUTE ST ELEVATION [place] Sinus rhythm with borderline 1st degree A-V block Rightward axis Right bundle branch block Inferior and septal ST elevation, CONSI WILLOW ACUTE INFARCT Lateral ST-T abnormality suggests myoca rdial injury/ischemia Dictated By: Prakash Saravia MD 12/01/21 08 57 Signed By: Prakash Saravia MD 12/02/21 0816 TD/TT: 12/01/21 0857Tech: AMADO cc: LOGEM; PCPNS* DAKOTA Owen; TERESSA RUIZ Report Dictated Date/Time Dictated By Status Electrocardiogram December 01, 2021 10:05am Prakash Saravia MD com pleted [facility] [address] [place] [address] Patient Name: Joaquín Barrientos [facility] [place] rd#: [id number] Address: [address] City/State/Zip: [place] [address]: Sean Salmeron MD Insurance: [facility] /Age/Sex: 1960/61/M Self Pay Admit/Reg Date: 12/01/[address]: HEAVENLY Montes De Oca Location: [address] [place] [address] PCP: Pcp-Beba lopes Md Date of Service: 12/01/21 Order (s): EKG ED Electrocardiogram CPT Code: 15383 Report Number: [id number] Reason for Exam: CHEST PAIN Sinus rhythm Lead(s) unsuitable for analysis: V3 Right axis deviation Right bundle branch block Dictated By: Prakash Saravia MD 12/01/21 10 05 Signed By: Prakash Saravia MD 12/02/21816 TD/TT: 12/01/21 1005Tech: AMADO cc: LOGEM; PCPNS* DAKOTA Owen; TERESSA RUIZ Report Dictated Date/Time Dictated By Status Radiology Report December 07, 2021 10:53pm Lary Rhodes MD completed [facility] [address] [place] [address] Patient Name: Joaquín Barrientos [facility] rd#: [id number] Address: [address] City/State/Zip: [place] [address]: Harlan Davis DO Insurance: [facility] /Age/Sex: 1960/61/M Self Pay Admit/Reg Date: 12/07/[address]: DAKOTA Hutchinson Location: ED.GS/ PCP: Lissette Marin Md Date of Service: 12/07/21 Order (s): CT head/brain wo contrast CPT Code: 64009 Report Number: [id number] Reason for Exam: syncope with head strik e CT Brain History: Headache following injury and syncope. Comparison: Nearly 3 weeks prior. Technique: CT of the brain was performe d without contrast using standard department protocol. Automated exposure control and dose reduction techniques were utilized. Findings: No new disease. No extra-axia l fluid collections. Stable small parenchymal density near left frontal ho rn. Impression: No acute intracranial abnor mality. * * Automated exposure control and dose r eduction techniques were utilized Dictated By: Lary Rhodes MD 12/07/212252 Signed By: Lary Rhodes MD 12/07/21 9 TD/TT: 12/07/212252Tech: [id number] cc: JOSE; VIVEK; ANAM* TERESSA RUIZ; DAKOTA Victor; Phil Davis DO Report Dictated Date/Time Dictated By Status Radiology Report December 07, 2021 10:56pm Lary Rhodes MD completed [address] [address] Patient Name: Joaquín Barrientos rd#: [id number] Address: [facility] City/State/Zip: [place] [address]: Harlan Davis DO Insurance: [facility] /Age/Sex: 1960/61/M Self Pay Admit/Reg Date: 12/07/[address]: DAKOTA Hutchinson Location: ED.GS/ PCP: Lissette Marin Md Date of Service: 12/07/21 Order (s): CT cervical spine wo contrast CPT Code: 07131 Report Number: [id number] Reason for Exam: pain s/p fall Cervical Spine CT History: pain following injury. Technique: Helical CT of the cervical s pine is performed with multiplanar reformations. Automated exposure control and dose reduction techniques were utilized. Comparison: None. Findings: Normal alignment and preserve d mineralization. Protruding nearly confluent bulky anterior osteophytes at multiple levels including ring of C1 and body of C2. Moderate degenerative change s of the apophyseal facets both upper and lower cervical spine. Patent bilater al cervical neural foramina.. The disc spaces are preserved. The atlanto-dens i nterval is narrowed with osteophyte formation. There is no definite preverte bral soft tissue thickening. There is no fracture or dislocation. Impression: No evidence of fracture. La rge bulky anterior osteophytes at multiple levels. Moderate degenerative c hanges of the apophyseal facets. * Automated exposure control and dose r eduction techniques were utilized Dictated By: Lary Rhodes MD 12/07/212255 Signed By: Lary Rhodes MD 12/07/21 230 2 TD/TT: 12/07/212255Tech: [id number] cc: JOSE; VIVEK; ANAM* TERESSA RUIZ; DAKOTA Victor; Phil Davis DO Report Dictated Date/Time Dictated By Status Radiology Report December 08, 2021 7:58am Eduar Rm MD [address] [place] [address] Patient Name: Joaquín Barrientos [facility] rd#: [id number] Address: [address] City/State/Zip: [place] [address]: Jesenia Rivas MD Insurance: [facility] /Age/Sex: 1960/61/M Self Pay Admit/Reg Date: 12/07/[address]: DAKOTA Hutchinson Location: ./[id number] PCP: PcpCarla lopes Md Date of Service: 12/07/21 Order (s): CT abdomen pelvis w contrast; CT chest w contrast; CT thoracic spine wo contrast CPT Code: 96835; 75719; 00359 Report Num mike: [id number] Reason for Exam: L sided lower rib pain s/p fall ADDENDUM Right lower lobe segmental and subsegme ntal pulmonary emboli are noted. Preliminary wet reading was provided by TRS at the conclusion of the exam and there is no clinically significant disag reement. Addendum Dictated By: Eduar Rm MD Addendum Signed By: Eduar Rm MD 2 0837 DD/ /22/833 TD/TT: 12/08/2110/22/833 CHEST [address]: IV adminis tration of 90 cc of Omnipaque 350 and without oral contrast. Please note that subtle bowel pathology cannot be ruled out without the oral contrast. Automated exposure control and dose red uction technique were utilized. CLINICAL INFORMATION PROVIDED: Pain aft er trauma COMPARISON: Chest x-ray from December 01, 2021 FINDINGS: CHEST CT: Minor scattered discoid changes are not ed. 6.7 mm subpleural nodule in the left posterior costophrenic sulcus is no devendra. Major bronchi are grossly normal. No si gnificant pleural abnormality is seen. No significant mediastinal,hilar, axill india, or supraclavicular adenopathy is seen. Left sided pacer is noted. Visualized p ortion of thyroid glands is grossly unremarkable. Visualized portion of the esophagus is unremarkable. Ascending thoracic aorta is mildly prominent measu ring 4.1 cm. Pulmonary arteries are not grossly enlarged. No definite filling de fect is noted within the adequately opacified portion of the pulmonary arter ies No significant pericardial effusion is seen. Old left posterior fifth and sixth rib fractures are noted. Old fract ures involving right posterior ninth and eighth costovertebral junction area are noted. ABDOMEN AND PELVIC CT: Liver demonstrates a normal appearance. There is no bile duct dilatation. Gallbladder is grossly unremarkable. Wright creas demonstrates a normal appearance. The adrenal glands demonstrate normal a ppearance. Spleen demonstrates normal size. Kidneys demonstrate normal appeara nce. Stomach is not well distended and canno t be adequately assessed. Small bowel loops are not dilated or thickened. Scattered colonic diverticulosis is not ed without diverticulitis. Patient is likely status post partial appendectomy. No significant adenopathy is seen. Ther e is no abnormal mesenteric fatty infiltration. No free air is noted. No s ignificant free fluid is seen. No significant ventral hernia is noted. There is no evidence of AAA. SMA is pat ent. 2.1 x 1.4 cm posterior bladder mass mariann domenico protrusion of the mildly enlarged prostate gland is seen. No evidence of decubitus ulcer is seen. There is no definite evidence of clot within the visualized IVC and pelvic vei ns. Penile calcifications suspicious for Peyronie disease are noted. BONES: No aggressive bony lesions are n oted. IMPRESSION: No acute intra-abdominal or intrathorac ic injury 2.1 x 1.4 cm posterior bladder mass mariann domenico protrusion of the mildly enlarged prostate gland. Bladder ultrasound is re commended. 6.7 mm subpleural nodule in the left po sterior costophrenic sulcus The Fleischner Society recommendations for follow-up and management of pulmonary nodules smaller than 8 mm dete cted incidentally on CT are as follows: First, the patient should be identified as low or high risk. Low risk is defined as minimal or absent history of smoking and other known risk factors. All other patients are considered high r isk. If the nodule is greater than 6 mm and less than or equal to 8 mm in diameter, low risk patients require initial follow -up CT in 6 to 12 months and then at 18 to 24 months if no change. High risk pat ients require initial follow-up CT at 3 to 6 months and then at 9 to 12 and agai n for a third time at 24 months if no change. See above for other details. THORACIC SPINE CT CLINICAL INFORMATION PROVIDED: Pain aft er injury COMPARISON: None available at the time of dictation TECHNIQUE: No additional contrast was u tilized. 3D reconstruction using the independent workstation, performed by the neurodiagnostic technologist was reviewed. Automated exposure control and dose red uction technique were utilized. FINDINGS: No fracture-dislocation or aggressive b mira lesion is noted. Osteopenia is noted. 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 9.4 mm probable bone island involving posterior T6 vertebral body is seen. Multilevel mild spondylosis is seen. IMPRESSION: No acute bony injury See the body of report for other detail s. Dr. Eduar rm was able to get in touch with Dr. Rivas at 8:23 AM, 12/08/2021 and discussed the findings in the impres manuel of the report. Dictated By: Eduar Rm MD 12/08/21 0758 Signed By: Eduar Rm MD 12/08/21826 TD/TT: 12/08/21 0758Tech: [id number] cc: VIVEK; PUNEET MENDIETA* TERESSA RUIZ; Jesenia Rivas MD; DAKOTA Victor Report Dictated Date/Time Dictated By Status Electrocardiogram December 08, 2021 12:11am Warren mendoza MD completed [facility] [address] [place] [address] Patient Name: [facility] rd#: [id number] Address: [address] City/State/Zip: [place] [address]: Jesenia Rivas MD Insurance: [facility] /Age/Sex: 1960/61/M Self Pay Admit/Reg Date: 12/07/[address]: Juan A garza MD Location: [address] [place] [address] PCP: Pcp-Beba lopes Md Date of Service: 12/08/21 Order (s): EKG Electrocardiogram CPT Code: 83831 Report Number: [id number] Reason for Exam: SYNCOPE SINUS RHYTHM VENTRICULAR PREMATURE COMPLEX FIRST DEGREE AV BLOCK RBBB AND LPFB Summary: Abnormal ECG Dictated By: Warren Espinal MD 10 Signed By: Warren Espinal MD 12/08/21913 TD/TT: 12/08/2110Tech: ALYSHA cc: MONICA; VIVEK* Javy Molina MD; TERESSA RUIZ Report Dictated Date/Time Dictated By Status Radiology Report December 08, 2021 1:51pm Gaurang Ramos MD c ompleted [facility] [address] [place] [address] Patient Name: [facility] rd#: [id number] Address: [address] City/State/Zip: [place] [address]: Jesenia Rivas MD Insurance: [facility] /Age/Sex: 1960/61/M Self Pay Admit/Reg Date: 12/08/[address]: Susan daugherty MD [id number] PCP: PcpCarla lopes Md Date of Service: 12/08/21 Order (s): US venous duplex LE BI CPT Code: 38514 Report Number: [id number] Reason for Exam: Acute PE, question DVT BILATERAL DUPLEX LEG VENOUS ULTRASOUND ( 97809) HISTORY: Acute PE. TECHNIQUE: Examination of the bilateral common femoral veins, superficial femoral veins and popliteal veins was pe rformed using B-mode imaging with compression, color Doppler flow and spec tral waveform analysis COMPARISON: Left lower limb ultrasound dated . FINDINGS: B-mode imaging demonstrates n o evidence of thrombus, and there is good compressibility seen within all vis ualized vascular structures. Doppler imaging demonstrates good flow throughou t these vascular structures. There is good augmentation seen in the popliteal region with calf compression. The deep calf veins to the extent visualized is n ormal. IMPRESSION: Negative for deep venous thrombosis ciara aterally. Dictated By: Gaurang Ramos MD 12/08/21 1351 Signed By: Gaurang Ramos MD 12/08/21 135 7 TD/TT: 12/08/21 1351Tech: [id number] cc: VIVEK; TERESSA GAYTAN; Jesenia Rivas MD Report Dictated Date/Time Dictated By Status Echocardiogram December 08, 2021 9:28am Daron Leong MD c ompleted [address] [place] [address] Patient Name: Joaquín Barrientos [facility] rd#: [id number] Address: [address] City/State/Zip: [place] [address]: Jesenia Rivas MD Insurance: [facility] /Age/Sex: 1960/61/M Self Pay Admit/Reg Date: 12/08/[address]: Susan daugherty MD Location: 3B./FR001-J PCP: Pcp-Beba lopes Md Date of Service: 12/08/21 Order (s): Echo TTE comp w/dop w contras t CPT Code: C8929 Report Number: [id number] Reason for Exam: Acute pulmonary embolis m Transthoracic Echocardiography Report (T TE) Demographics Patient Name Floyd Yanes Gender Male MR Number [id number] Date of [birth year] Age 61 year (s) Room Number GS351 Height 69 inches Date of study 12/08/2021 Weight 247.01 pounds Referring MD Jesenia Rivas BSA 2.2 6 m^2 MD Erasto Blum MD Interpreting MD Daron Leong MD BMI 3 6.48 kg/m^2 Fellow Sheet Heater Krys Chen [facility] Conclusions Summary Definity .5mL was given IV to enhance w all motion assessment. LV size is normal. EF 50-55% There is mild concentric LVH. ? Patch is seen in images 7-9. No clear residual VSD. Septal motion consistent with prior car diac surgery and/or pacemaker. The left atrium is mildly dilated by in dexed volume. The right atrial chamber size is normal . ICD / Pacemaker lead seen in right hear t. The aortic valve is trileaflet. The aortic valve leaflets are mildly th ickened. There is no aortic stenosis. Mild aortic regurgitation. The mitral valve leaflets are mildly th ickened. There is mitral annular calcification. There is mild mitral regurgitation. There is moderate TR. Estimated RVSP mildly increased at 45 m mHg. Findings MITRAL VALVE: The mitral valve leaflets are mildly th ickened. There is mitral annular calcification. There is mild mitral regurgitation. AORTIC VALVE: The aortic valve is trileaflet. The aortic valve leaflets are mildly th ickened. There is no aortic stenosis. Mild aortic regurgitation. TRICUSPID VALVE: The tricuspid valve is structurally nor mal. There is moderate TR. Estimated RVSP mildly increased at 45 m mHg. PULMONIC VALVE: There is moderate pulmonic regurgitatio n. Peak gradient is 25 mmHg, mean 12 mmHg, 2.5 m/s velocity. ATRIA: The left atrium is mildly dilated by in dexed volume. The right atrial chamber size is normal . ICD / Pacemaker lead seen in right hear t. LEFT VENTRICLE: Definity .5mL was given IV to enhance w all motion assessment. LV size is normal. EF 50-55% There is mild concentric LVH. ? Patch is seen in images 7-9. No clear residual VSD. Septal motion consistent with prior car diac surgery and/or pacemaker. RIGHT VENTRICLE: RV size and systolic function are wes l. Pacemaker / ICD wire visualized in the right ventricle. PERICARDIAL AND PLEURA: There is a pericardial fat pad present. MISCELLANEOUS: Dilated aortic root (4.2 cm). Dilated ascending aorta (3.7 cm). The IVC appears normal with preserved i nspiratory collapse. Type of Study TTE procedure: Echo complete w contrast (MT 6.1), Echo complete w doppler (MT 6.1). Technical Quality: Technically difficul t study due to patient's body habitus.Study Location: Portable Indications: Tetralogy of fallot - 745. 2 and s/P TOF repair. Patient Status: Routine Contrast Medium: Definity. HR: 94 bpmBP: 145/78 mmHg Atria LA Dimension: 3.6 cm LA Systolic Pressu re: 12.37 mmHg LA/Aorta: 0.86 LA Volume/Index: 78.5 ml /35m^2 Left Ventricle Diastolic Dimension: 5.1 cm Systolic Di mension: 3 cm Septum Diastolic: 1.4 cm PW Diastolic: 1.3 cm FS: 41.18 % LV EDV/LV EDV Index: 138 ml/61 m^2 CI: 2.61 l/min*m^2 CO: 5.9 l/min Right Ventricle RVOT VTI: 39.3 cm RV Systolic Pressure: 44.48 mmHg Miscellaneous Aorta Aortic Root: 4.2 cm Ascending Aorta: 3.7 cm Mitral Valve Peak E-Wave: 97.9 cm/s Peak A-Wave: 32. 8 cm/s P1/2t: 33 msec E/A Ratio: 2.98 Mean Velocity: 79.4 cm/s Peak Gradient: 3.83 mmHg Mean Gradient: 3 mmHg Deceleration Time : 113 msec Area (PHT): 6.67 cm^2 Area (continuity) : 2.11 cm^2 Aortic Valve Peak Velocity: 189 cm/s Mean Velocity: 133 cm/s Peak Gradient: 14.29 mmHg Mean Gradient : 7 mmHg Area (continuity): 2.03 cm^2 AV VTI: 31 cm Tricuspid Valve Estimated RVSP: 45 mmHg Estimated RAP: 8 mmHg TR Velocity: 302 cm/s TR Gradient: 36.4 8 mmHg Pulmonic Valve Peak Velocity: 115 cm/s Peak Gradient: 5.29 mmHg Mean Velocity: 81 cm/s Mean Gradient: 3 mmHg Estimated PASP: 44.48 mmHg LVOT Peak Velocity: 107 cm/s Mean Velocity: 68.9 cm/s Peak Gradient: 5 mmHg Mean Gradient: 2 mmHg LVOT Diameter: 2 cm LVOT VTI: 20 cm Signature Dictated By: Daron Leong MD 12/08/21927 Signed By: Daron Leong MD 12/08/21 TD/TT: 12/08/21927Tech: [facility] cc: NATALY; VIVEK; DARRELL* Daron Leong MD; TERESSA RUIZ; Mauro Rivas MD Report Dictated Date/Time Dictated By Status Radiology Report December 11, 2021 10:21am Matt Granger MD co mpleted [address] [address] [place] [address] Patient Name: Joaquín Barrientos [facility] rd#: [id number] Address: [address] City/State/Zip: [place] [address]: Dillon Mcdonald MD Insurance: [facility] /Age/Sex: 1960/61/M Self Pay Admit/Reg Date: 12/11/[address]: Haris Bradshaw DO Location: ED.INGS/GSSailajaFR-4 PCP: PcpCarla arrington Md Date of Service: 12/10/21 Order (s): XR chest 1V portable CPT Code: 66386 Report Number: [id number] Reason for Exam: Chest Pain XR chest 1V portable, 12/10/2021 9:02 PM CLINICAL HISTORY: Chest pain. COMPARISON: 12/01/2021 TECHNIQUE: 1 view is obtained. FINDINGS: The lungs are clear. The heart is enlar ged. The lateral costophrenic sulci are blunted. Left sided pacemaker device is noted. IMPRESSION: No evidence of active cardiopulmonary p rocess. Cardiomegaly. Dictated By: Matt Granger MD 12/11/21 1021 Signed By: Matt Granger MD 12/11/21 1025 TD/TT: 12/11/21 1021Tech: [facility] cc: [id number]; JEANETH01; PCPNS* TERESSA RUIZ; Orlando Dodge; Titus Bradshaw DO Report Dictated Date/Time Dictated By Status Electrocardiogram December 10, 2021 8:49pm Warren Rivas MD co mpleted [address] [address] Patient Name: Joaquín Barrientos [facility] rd#: [id number] Address: [address] City/State/Zip: [place] [address]: Dillon Mcdonald MD Insurance: [facility] /Age/Sex: 1960/61/M Self Pay Admit/Reg Date: 12/11/[address]: Haris Bradshaw DO Location: ED.INGS/GSX-4 PCP: PcpCarla arrington Md Date of Service: 12/10/21 Order (s): EKG ED Electrocardiogram CPT Code: 03390 Report Number: [id number] Reason for Exam: Chest Pain SINUS RHYTHM RIGHT BUNDLE BRANCH BLOCK [120+ ms QRS DURATION, UPRIGHT V1, 40+ ms S IN I/aVL/V4/V5/V6] LEFT POSTERIOR FASCICULAR BLOCK [QRS AX IS > 109, INFERIOR Q] ABNORMAL ECG No STEMI. Dictated By: Warren Rivas MD 12/10/21 49 Signed By: Warren Rivas MD 12/11/21 1311 TD/TT: 12/10/212048Tech: [email or web address] cc: [email or web address]; PCPNS* TERESSA RUIZ; Titus Bradshaw DO Report Dictated Date/Time Dictated By Status Cardiac Catheterization December 02, 2021 12:06pm Erasto Blum MD completed [address] [address] [place] [address] Patient Name: Joaquín Barrientos [facility] rd#: [id number] Address: [address] City/State/Zip: [place] [address]: Sean Salmeron MD Insurance: [facility] /Age/Sex: 1960/61/M Self Pay Admit/Reg Date: 12/03/[address]: Orlando Virgen Location: [address] [place] [address] PCP: Pcp-Beba lopes Md Date of Service: 12/02/21 Order (s): Cardiac Cath Order CPT Code: Report Number: [id number] Reason for Exam: CP Cardiac Catheterization and Peripheral V ascular Report Demographics Name Floyd Yanes 1960 [address] 69 inches Age 61 year(s) Weight 24 5 pounds Gender Male BSA 2.2 5 m^2 Race Caucasi an BMI 36.18 kg/m^2 # Primary Procedure 12/02/2021 Care Date Physician Referring Diagnostic Erasto Blum MD Physician Physician Interventional Physician Admission Status: Inpatient Procedure Risk Factors The patient risk factors include:hyperc holesterolemia, arterial hypertension, diabetes, dyslipidemia an d former tobacco use. Conclusions: Procedure Data Procedure Date Date: 12/02/2021tart: 12:06 Signatures Procedure Type Diagnostic procedure: Cardiac Cath (MT 6.1) Dictated By: Erasto Blum MD 12/02/21 1 206 Signed By: Erasto Blum MD 12/13/21 1510 TD/TT: 12/02/21 1206Tech: [email or web address] cc: VENKATA; PCPNS* Erasto Blum MD; TERESSA RUIZ Report Dictated Date/Time Dictated By Status Electrocardiogram December 12, 2021 12:52pm Jagjit Blum MD completed [address] [address] Patient Name: Joaquín Barrientos [facility] rd#: [id number] Address: [facility] [employer] [facility] [address] City/State/Zip: [place] [address]: Jesenia Rivas MD Insurance: [facility] /Age/Sex: 1960/61/M Self Pay Admit/Reg Date: 12/11/[address]: Kylah gan MD Location: [address] [place], [place] [id number] PCP: PcpCarla lopes Md Date of Service: 12/12/21 Order (s): EKG Electrocardiogram CPT Code: 23902 Report Number: [id number] Reason for Exam: ARRTHYMIA Sinus rhythm with 1st degree A-V block Right axis deviation RBBB with Left Posterior Fascicular Blo ck. Dictated By: Jagjit Blum MD 12/12/21 12 52 Signed By: Jagjit Blum MD 12/13/21 1708 TD/TT: 12/12/21 1252Tech: TAURUS cc: [email or web address]; PCPBENITA* TERESSA RUIZ; Orlando Dodge Report Dictated Date/Time Dictated By Status Radiology Report December 29, 2021 5:06pm Desmond Guillermo MD completed [facility] [address] [place] [address] Patient Name: Joaquín Barrientos rd#: [id number] Address: [address] City/State/Zip: [place] Attend ing Dr: Melania Blake MD Insurance: [facility] /Age/Sex: 1960/61/M Self Pay Admit/Reg Date: 12/29/[address]: Gume Rod MD Location: ED.GS/ PCP: Pcp-Non StaffMd Date of Service: 12/29/21 Order (s): CT head/brain wo contrast CPT Code: 33370 Report Number: [id number] Reason for Exam: severe headache CLINICAL HISTORY:Patient with severe he adache. Please evaluate TECHNIQUE: Axial images through the hea d were obtained. Bone and soft tissue windows were obtained. Sagittal and ruiz nal reconstructions were performed. Automated exposure control and dose redu ction techniques were utilized with mA and kV adjusted for patient size. FINDINGS: Comparison is made with the p rior exam in 12/07/2021 and 11/23/2021. The hyperdensity anterior to left front al horn in the left frontal lobe is unchanged from the prior exam. There is normal avalos-white matter diffe rentiation. The ventricles are of appropriate size and configuration. The sulci are again mildly prominent consist ent with age-related parenchymal tissue loss. There is no evidence of any new intra-axial or extra-axial hemorrhage. T here is no evidence of any midline shift. There is no evidence of any mass, mass effect or edema. There is no territorial region of mass effect or estefany ma to suggest any large area of acute infarction. The cerebellum and brainstem are grossl y unremarkable. The pituitary gland is nonenlarged in size. The visualized extra-axial regions are unremarkable for acute abnormality. There is no evidence of any fracture of the calvarium. The bone windows are unremarkable for acute abnormality. IMPRESSION: 1. There is no evidence of any intracra nial hemorrhage. 2. No obvious large area of territorial mass effect or edema is seen to suggest any large area of acute infarction or ma ss on this nonenhanced study. MRI/MRA would be more sensitive for subtle areas of acute ischemia, subtle mass or subtle aneurysm. 3. Stable appearing 1 cm hyperdensity i n the left frontal lobe adjacent to the left frontal horn. 4. No significant interval change on e prior exam. Dictated By: Desmond Guillermo MD 12/29 Signed By: Desmond Guillermo MD 12/29/211715 TD/TT: 12/29/211705Tech: [id number] cc: MUREL; PCPNS* Loree Blake MD; TERESSA RUIZ Report Dictated Date/Time Dictated By Status Radiology Report December 29, 2021 5:20pm Desmond Guillermo MD completed [address] [address] [place] [address] Patient Name: Joaquín Barrientos [facility] rd#: [id number] Address: [address] City/State/Zip: [place] [address]: Melania Blake MD Insurance: [facility] /Age/Sex: 1960/61/M Self Pay Admit/Reg Date: 12/29/[address]: Gume Rod MD Location: ED.GS/ PCP: PcpCarla Marin Md Date of Service: 12/29/21 Order (s): CT angio chest with contrast CPT Code: 40883 Report Number: [id number] Reason for Exam: f/u PE CLINICAL HISTORY:Patient with chest pain . Please follow-up for pulmonary embolus. TECHNIQUE: Axial images through the [facility] st were obtained following the intravenous injection of 90 mL iodinated contrast in the left antecubital fossa.Automated exposure control and dos e reduction techniques were utilized with mA and kV adjusted for patient size . 2D MIPS reconstructions were performed on the same workstation. Sagit mike and coronal reformat reconstructions were also obtained. Soft tissue tissue, bone and lung windows were also obtained on the same workstation. FINDINGS: Comparison is made with the p rior exam on 12/07/2021. The previously noted distal right lower lung pulmonary emboli are no longer present on this exam. The main pulmonary arteries are patent without evidence of any obvious thrombus or filling defect. The pulmonary artery is normal in size and caliber. There is no evidence of any thrombus or filling defect noted in the remaining distal branches of the pulmona ry arteries in both lungs. The main pulmonary veins are normal in size and c aliber. The a ascending thoracic aorta is again mildly dilated at 4.1 cm. The remaining aorta is normal in size and caliber with out evidence of any aneurysm or dissection. The heart size is mildly enl arged. There is a pacemaker with leads extending into the heart. There is no ev idence of any left heart strain. There is no evidence of any pericardial effusi on. There are mild coronary artery wall calcifications. There is no evidence of any mediastinal or hilar adenopathy. The trachea and mainstem bronchi are patent. The esophag us is intact. There is mild dependent atelectasis and scarring noted at both lung bases. There is no evidence of any mass, consol idation or infiltrate in either lung. There is no evidence of any pleural effu manuel. The 6 mm nodule in the left lower lung is again noted.. The visualized portion of the thyroid g land is grossly intact. There is no evidence of any axillary adenopathy. The visualized abdominal viscera are gr ossly unremarkable for acute abnormality. There is no evidence of any adrenal mass. There is fatty infiltration of the liver. There is a sm all splenule again noted posteriorly in the hilum. The bone windows are unremarkable for a cute abnormality. Lobe of the chronic scattered rib fractures are again seen u nchanged from the prior exam. No acute fractures noted. Mild degenerative buchanan es in the thoracic spine are noted. IMPRESSION: 1. There is no evidence of any new acut e pulmonary arterial thrombus or embolus. The previously noted filling de fects in the right lower pulmonary arteries is no longer present. 2. No acute infiltrate, pleural effusio n or mass is seen in either lung. 3. Other chronic findings as described above unchanged from the prior exam. Dictated By: Desmond Guillermo MD 12/29 Signed By: Desmond Guillermo MD 12/29/21 1734 TD/TT: 12/29/211719Tech: [id number] cc: ARACELI; PCPNS* Loree Blake MD; TERESSA RUIZ Report Dictated Date/Time Dictated By Status Radiology Report December 30, 2021 8:35am Rl Granados MD completed [facility] [address] [place] [address] Patient Name: Joaquín Barrientos [facility] rd#: [id number] Address: [address] City/State/Zip: [place] [address]: Cory Cortez MD Insurance: [facility] /Age/Sex: 1960/61/M Self Pay Admit/Reg Date: 12/29/[address]: Gume Rod MD Location: ED.INGS/GSXFR-5 PCP: PcpCarla arrington Md Date of Service: 12/29/21 Order (s): XR chest 1V portable CPT Code: 60473 Report Number: [id number] Reason for Exam: Chest Pain Study: Portable upright chest 1 view Indication: Chest pain Comparison: 12/10/2021 Findings: Left chest wall device with leads uncha nged. Heart is enlarged but stable. No consolidation or pleural effusion. Minim ally increased interstitial markings. No confluent CHF or pulmonary edema. No pne umothorax. Impression: Cardiomegaly with possible slight interstitial edema. No focal airspace disease or overt CHF. Dictated By: Rl Granados MD 12/3035 Signed By: Rl Granados MD 12/30/2139 TD/TT: 12/30/2135Tech: [email or web address] cc: [email or web address]; [email or web address]; PCPNS* Loree Blake MD; TERESSA RUIZ; Michael Cortez MD Report Dictated Date/Time Dictated By Status Electrocardiogram December 29, 2021 1:42pm Linh Kee completed [facility] [address] [place] [address] Patient Name: Joaquín Barrientos [facility] rd#: [id number] Address: [address] [facility]/Zip: [place] [address]: Cory Cortez MD Insurance: [facility] /Age/Sex: 1960/61/M Self Pay Admit/Reg Date: 12/30/[address]: Mak Davis DO Location: ED.INGS/EUGENIEX-5 PCP: PcpCarla arrington Md Date of Service: 12/29/21 Order (s): EKG ED Electrocardiogram CPT Code: 70663 Report Number: [id number] Reason for Exam: cp SINUS RHYTHM FIRST DEGREE AV BLOCK RBBB AND LPFB Dictated By: Titus Bradshaw DO 12/29/21 134 Signed By: Titus Bradshaw DO 12/30/21 13 54 TD/TT: 12/29/21 1342Tech: [id number] cc: JOSE; PCPNS* TERESSA RUIZ; Harlan Davis DO Report Dictated Date/Time Dictated By Status Electrocardiogram December 29, 2021 4:41pm Warren Rivas MD c ompleted [address] [address] [place] [address] Patient Name: Joaquín Barrientos [facility] rd#: [id number] Address: [address] [facility]/Zip: [place] [address]: Cory Cortez MD Insurance: [facility] /Age/Sex: 1960/61/M Self Pay Admit/Reg Date: 12/30/[address]: Gume Rod MD Location: ED.INGS/EUGENIEXMANDO5 PCP: PcpCarla arrington Md Date of Service: 12/29/21 Order (s): EKG ED Electrocardiogram CPT Code: 53126 Report Number: [id number] Reason for Exam: Chest pain SINUS RHYTHM RIGHT BUNDLE BRANCH BLOCK [120+ ms QRS DURATION, UPRIGHT V1, 40+ ms S IN I/a VL/V4/V5/V6] LEFT POSTERIOR FASCICULAR BLOCK [QRS AX IS > 109, INFERIOR Q] ABNORMAL ECG Dictated By: Warren Rivas MD 12/29/21 16 41 Signed By: Warren Rivas MD 12/30/21 1433 TD/TT: 12/29/21 1641Tech: [email or web address] cc: [email or web address]; PCPNS* Loree Blake MD; TERESSA RUIZ Vital Signs Vital Reading Result Reference Range Collection Date/ Time Height 175.26 cm December 02, 12:39am Weight 111.13 kg December 02, 022 12:39am Body Temperature 98.3 [degF] 97.6-99.6 December 03, 2021 7:25am Heart Rate 81 /min -December 03, 022 11:39am Respiratory rate 20 /min 03-26December 03, 2021 7:25am Oxygen saturation by Pulse 96 % 95-100 [facility] 2021 7:25am oximetry BP Systolic 135 mm[Hg] 90-140 December 03, 2 022 7:25am BP Diastolic 47 mm[Hg] 60-90 December 03, 2 022 7:25am BMI (Body Mass Index) 36.2 kg/m2 December 02, 2021 12:39am Height 175.26 cm December 08, 2:22am Weight 112.26 kg December 08, 022 2:22am Body Temperature 98.1 [degF] 97.6-99.6 December 09, 2021 8:20am Heart Rate 89 /min -December 09, 022 8:20am Respiratory rate 18 /min 03-26December 09, 2021 8:20am Oxygen saturation by Pulse 96 % 95-100 [facility] 2021 8:20am oximetry BP Systolic 136 mm[Hg] 90-140 December 09, 2 022 8:20am BP Diastolic 78 mm[Hg] 60-90 December 09, 2 022 8:20am BMI (Body Mass Index) 36.5 kg/m2 December 08, 2021 2:22am Height 175.26 cm December 11, 2021 9:12pm Weight 110.84 kg December 13, 2021 7:11am Body Temperature 98.2 [degF] 97.6-99.6 December 13, 2021 7:52am Heart Rate 70 /min -December 13, 2021 10:04am Respiratory rate 20 /min 03-26December 13, 2021 7:52am Oxygen saturation by Pulse 96 % 95-100 [facility] 2021 oximetry 10:13am BP Systolic 115 mm[Hg] 90-140 December 13, 2021 7:52am BP Diastolic 66 mm[Hg] 60-90 December 13, 2021 7:52am BMI (Body Mass Index) 36.5 kg/m2 December 11, 2021 9:12pm Height 175.26 cm December 29, 2021 4:34pm Weight 108.86 kg December 29, 2021 4:34pm Body Temperature 97.4 [degF] 97.6-99.6 December 29, 2021 1:40pm Heart Rate 94 /min -December 30, 2021 3:45pm Respiratory rate 20 /min -December 30, 2021 3:45pm Oxygen saturation by Pulse 97 % 95-100 [facility] 2021 3:45pm oximetry BP Systolic 121 mm[Hg] 90-140 December 30, 2021 3:45pm BP Diastolic 72 mm[Hg] 60-90 December 30, 2021 3:45pm BMI (Body Mass Index) 35.4 kg/m2 December 29, 2021 4:34pm Advance Directives Advance Directive Response Recorded Date/Time Advance Directives No November 21, 2021 1: 46pm Health Care Proxy Yes November 21, 2021 1: 46pm Advance Directives No December 02, 2021 11:25am Health Care Proxy No December 02, 2021 11:25am Advance Directives U December 30, 2021 3:49pm Health Care Proxy U December 30, 2021 3:49pm Pt has Medical Orders for Life Sustaining Tx No December 30, 2021 3:49pm Form (MOLST)? Advance Directives No November 28, 2021 9: 34pm Health Care Proxy No November 28, 2021 9: 34pm Advance Directives No December 08, 2021 9:15am Health Care Proxy No December 08, 2021 9:15am Advance Directives No December 12, 2021 1:59pm Health Care Proxy No December 12, 2021 1:59pm Insurance Providers Guarantor Joaquín Barrientos Address [address] [place] [address] Contact Info. Home Phone: Payer Policy Id Coverage Id Subscriber's Subscriber Effective Expi ration Name Id Date Date [facility] [id number] Joaquín Barrientos [id number] [employer] Medicare A&B [id number] Joaquín Maiert [id number] Self Pay Self N/A Encounters Encounter Location(s) Arrival/Admit Date Discharge/Depart Date Provider(s) Discharged [facility] December 03, December 03, 2021 Luther Salmeron , Inpatient Medical 2021 9:24am 1:31pm Center-3A Discharged [facility] December 08, December 09, 2021 Danay Rice Inpatient Medical 2021 12:49pm 2:05pm MD Center-3B Discharged [facility] December 11, December 13, 2021 Susan gonzalez Inpatient Medical 2021 1:50am 2:25pm MD Rob Center-3B Discharged [facility] December 30, December 30, 2021 Millicent Cortez , Inpatient Medical 2021 12:50pm 7:44pm MD Center-Ed Inpatient Recent Diagnosis Onset Date Atypical chest pain Chest pain Cardiac defibrillator in situ Essential hypertension Paroxysmal atrial fibrillation Alcohol abuse Asthma Obstructive sleep apnea Pulmonary embolism Pulmonary nodule Readmission after hospitalization within last 30 days Syncope Diabetes Afib Alcohol abuse Atypical chest pain Defibrillator discharge Pulmonary embolism Tetralogy of Fallot Cardiac defibrillator in situ Diabetes Hypertension Atypical chest pain Bipolar 1 disorder Chest pain CAD (coronary artery disease), [place] coronary artery Cardiac defibrillator in situ Essential hypertension Paroxysmal atrial fibrillation Functional Status Observation Response Date Recorded Assistive Devices None December 02, 2021 11:25am Ambulation Tolerance [facility] December 03, 2021 4:07am Date of Last Bowel Movement 12/03/21December 2n d2021 4:07am Oral Care Teeth Brushing December 03, 2021 4:07am Mouth Rinse December 03, 2021 4:07am Assistive Devices None December 30, 2021 3:49pm Assistive Devices None December 08, 2021 9:15am Ambulation Tolerance [facility] December 09, 2021 10:18am Date of Last Bowel Movement 12/09/21December 8t , 2021 10:18am Oral Care Teeth Brushing December 09, 2021 10:18am Assistive Devices None December 12, 2021 1:59pm Ambulation Tolerance Good December 13 12:00pm Bathing Type Shower December 13, 2021 12:00pm Date of Last Bowel Movement 12/12/21 December 132021 12:00pm Oral Care Teeth Brushing December 13, 2021 12:00pm Antiseptic Oral Rinse December 13 12:00pm Mental Status Observation Response Date Recorded Arousable To Name December 03, 2021 4:07am Patient Behavior Asleep December 03, 2021 4:07am Comprehension Ability Understands Concepts December 03 4:07am Level of Consciousness Awake December 03 4:07am Alert December 03, 2021 4:07am Appropriate December 03, 2021 4:07am Follows Commands December 03, 2021 4:07am Arousable To Name December 09, 2021 11:29am Normal for Patient December 09, 2021 11:29am Patient Behavior Appropriate December 09, 2021 10:22am Cooperative December 09, 2021 10:22am Comprehension Ability Understands Concepts December 09 11:29am Level of Consciousness Awake December 09 11:29am Alert December 09, 2021 11:29am Appropriate December 09, 2021 11:29am Arousable To Name December 13, 2021 10:13am Patient Behavior Appropriate December 13, 2021 10:13am Cooperative December 13, 2021 10:13am Comprehension Ability Understands Concepts December 13 10:13am Level of Consciousness Awake December 13 10:13am Alert December 13, 2021 10:13am Appropriate December 13, 2021 10:13am Follows Commands December 13, 2021 10:13am Assessments Diagnosis Onset Date Resolution Status Atypical chest pain acute Chest pain acute Cardiac defibrillator in situ ch ronic Essential hypertension chronic Paroxysmal atrial fibrillation c hronic Alcohol abuse acute Asthma acute Obstructive sleep apnea acute Pulmonary embolism chronic Pulmonary nodule acute Readmission after hospitalization within last 30 acute days Syncope acute Diabetes chronic Afib acute Alcohol abuse acute Atypical chest pain acute Defibrillator discharge acute Pulmonary embolism chronic Tetralogy of Fallot acute Cardiac defibrillator in situ ch ronic Diabetes chronic Hypertension chronic Atypical chest pain acute Bipolar 1 disorder acute Chest pain acute CAD (coronary artery disease), [place] coronary chronic artery Cardiac defibrillator in situ ch ronic Essential hypertension chronic Paroxysmal atrial fibrillation c hronic Plan of Treatment Future Tests Future scheduled test information is unavailable Pending Tests Test Name Date ordered [facility]TE Risk Assessment Medical November 20, 2021 4:17am [facility]TE Risk Assessment Medical December 03, 2021 9:23am [facility]TE Risk Assessment Medical December 01, 2021 3:24pm [facility]TE Risk Assessment Medical December 29, 2021 9:34p m [facility]TE Risk Assessment Medical December 11, 2021 1:50a m Future Visits Future appointment information is unavailable Referrals to Other Providers Reason for Referral Start Provider Provider Contact Provider Address Referral Date Information Pcp-Renny , Md MD TERESSA RUIZ Work Phone: [address] [place], [place] [address] TERESSA MERCADANTE Work Phone: [address] [place] [address] TERESSA MERCADANTE Work Phone: [address] [place], [place] [address] Wally S Work Phone: [facility] MD Diana [address], [address] [facility] [address] TERESSA MERCADANTE Work Phone: [address] [place] [address] TERESSA MERCADANTE Work Phone: [address] [facility] [address] [place] [address] Future Procedures Procedure Name Scheduled Date Hospital [...] 4:17am Urology Consult November 22, 2021 3:58pm Hospital Level of Care December 03, 2021 9:24am Case Management Consult December 01, 2021 11:47pm Discharge December 03, 2021 11:46am Spiritual Care Consult December 01, 2021 11:47pm Enamel Applier Consult December 01, 2021 11:47pm Cardiology Consult December 01, 2021 7:07pm ED Transfer of Care to Adm Physician December 01, 2021 3:23pm EKG PRN for Chest Pain December 01, 2021 9:08am Peripheral IV Insert/Manage December 01, 2021 9:08am Patient Preference for Pain Management December 01 3:24pm Patient Preference for Pain Management December 03, 2021 9:24am Provider Order to Nurse December 01, 2021 7:19pm Continuous Pulse Oximetry December 01, 2021 9:08am Sequential Compression Device December 01, 2021 3:24pm Sequential Compression Device December 03, 2021 9:24 am Transradial Band December 02, 2021 1:51pm Hospital Level of Care December 30, 2021 12:50pm Discharge December 30, 2021 3:54pm Activity December 29, 2021 9:34pm Cardiology Consult December 29, 2021 9:34pm EKG PRN for Chest Pain December 29, 2021 4:13pm Peripheral IV Insert/Manage December 29, 2021 4:13p m Patient Preference for Pain Management December 29, 2021 9:34pm Provider Order to Nurse December 30, 2021 6:44am Psychiatry Consult December 30, 2021 11:50am Continuous Pulse Oximetry December 29, 2021 4:13pm Sequential Compression Device December 29, 2021 9:3 4pm Saline Lock Insert/Manage November 28, 2021 9:30pm EKG ED Electrocardiogram December 07, 2021 8:29pm Hospital Level of Care December 08, 2021 12:49pm Discharge December 09, 2021 12:24pm Nutrition Consult December 08, 2021 11:30am Activity December 07, 2021 11:44pm Cardiology Consult December 07, 2021 11:46pm Hematology Consult December 08, 2021 8:27am Add Hypoglycemia Protocol Orders December 07, 2021 1 1:46pm Pulmonology Consult December 08, 2021 8:24am Hospital Level of Care December 11, 2021 1:50am Case Management Consult December 12, 2021 6:52am Discharge December 13, 2021 12:31pm Spiritual Care Consult December 12, 2021 6:52am Enamel Applier Consult December 12, 2021 6:52am Cardiology Consult December 11, 2021 1:50am ED Transfer of Care to Adm Physician December 11 2 1:37am Saline Lock Insert/Manage December 10, 2021 8:54pm Oxygen Initiate/Maintain December 10, 2021 8:54pm Patient Preference for Pain Management December 11, 2021 1:50am Continuous Pulse Oximetry December 10, 2021 8:54pm Sequential Compression Device December 11, 2021 1:5 0am Future Medications Future medication information is unavailable Patient Instructions Benign Prostatic Hyperplasia ED Pain, Acute, Uncertain Cause Xarelto Oral Tablet 15 mg Pulmonary Embolism Causes of Syncope Embolism Pulmonary Dc Pulmonary Embolism Understanding the Pain Response ED Chest Pain, Noncardiac Goals Acute Goals Mr. Barrientos YOu will need to follow up with your [facility] doctor within 1-2 weeks. Please see the urologist as an outpatien t regarding your prostate. Please refrain from drinking any alcohol . Thank you Patient will be discharged back to [facility] detox program. Patient is currently on anticoagulation with Xarelto for recently diagnosed pulmonary embolism. To get follow-up with the PCP and also w nya the assistant reading teacher as an outpatient. Patient is explained in detail regarding the risks and benefits of anticoagulation therapy. You came in for evaluation of chest pain presumed to be atypical at this point. You will be discharged to detox facility with plan t o complete your treatment program and to take medications as previously prescribed, there has been no medication changes please follow-up with primary supervisory investigative specialist for restarting anticoagulat ion with Xarelto. Cardiac rhythm stable Including: - Cardiac rhythm back to baseline or antoni eostasis Absence of falls Including: - Early & often mobilization when approp riate - Passive/active range of motion as appr opriate - toileting schedule implementation - implementation of fall risk interventi ons Surgical site healing Including: - Surgical site clean, dry and intact - Absence of redness or drainage - Site care continued as applicable Alleviation of anxiety Including: -Utilization of coping skills -Demonstrates/verbalizes decreased anxie ty Glucose level within specified parameter Absence of falls Including: - Early & often mobilization when approp riate - Passive/active range of motion as appr opriate - toileting schedule implementation - implementation of fall risk interventi ons Understand Mgmt Strategy-DKA Patient/Caregiver understand: - Pathophysiology - Reportable s/s and when to seek medica l care - Treatment plan and post discharge foll ow up - Medication regime, energy conservation , dietary & lifestyle modification Understand Mgmt Strategy-Diabetes Patient/Caregiver understand: - Pathophysiology - Reportable s/s and when to seek medica l care - Treatment plan and post discharge foll ow up - Medication regime, energy conservation , dietary & lifestyle modification Skin integrity intact - No evidence of impaired skin integrity - Patient/caregivers participating in pr eventative measures Prevention of aspiration Including: - Absence of regurgitation, gagging, cou ghing, fever, cyanosis and respiratory insufficiency - Aspiration precautions Understand Mgmt Strategy-Seizure Patient/Caregiver understand: - Pathophysiology - Reportable s/s and when to seek medica l care - Treatment plan and post discharge foll ow up - Medication compliance, environmental s afety & lifestyle modification Cardiac rhythm stable Including: - Cardiac rhythm back to baseline or antoni eostasis Absence of fluid/electrolyte imbalance Including: - Improved lab values - Adequate urine output - Adequate hydration - Stable weight if appropriate Absence of falls Including: - Early & often mobilization when approp riate - Passive/active range of motion as appr opriate - toileting schedule implementation - implementation of fall risk interventi ons Cardiac rhythm stable Including: - Cardiac rhythm back to baseline or antoni eostasis Pt reports/exhibits pain at alejo level Including: - Pain controlled by pharmacological/non -pharmacological means - Establish realistic pain and function goals prior to initiating opioid therapy in patients with chronic pain if applica ble - Discuss known risks and realistic bene fits of opioid therapy Circulatory function W/in Spec Bandar Absence of: - S/s of altered tissue perfusion - Cardiac dysrhythmia - Metabolic acidosis - Pain Improved activity tolerance Including: - Progressing activity toward baseline - Understands energy conservation manage ment - Physical/Occupational therapy if appro priate Understand Mgmt Strategy-Angina Patient/Caregiver understand: - Pathophysiology - Reportable s/s and when to seek medica l care - Treatment plan and post discharge foll ow up - Medication regime, energy conservation & lifestyle modification Safely transition to next level of care Patient/family has: - Appropriate access to resources and avila pport services as applicable
--- OUTSIDE RECORDS SUMMARY | 2022-04-07 13:27 | XMS_ITS | Continuity of Care Document ---
:1960 Author Organization [facility] Address [address] [place] [address] Phone Care Team Providers Name Role Phone Pcp-MD Melanie Lawson Primary Care Provider Unavailable Pcp-MD Melanie Lawson Family Provider Unavailable Hospitalist, Model (IS ONLY) Emergency Provider Unavailable MD Juan Andersen Other Provider MD Cathleen Washington Attending Provider MD Louie Hart Other Provider MD Camilla [facility] Other Provider TERESSA RUIZ Primary Care Provider TERESSA RUIZ Family Provider MD Prakash Saravia Emergency Provider MD Danis Hall Other Provider MD Sean Salmeron Attending Provider Chief Complaint and Reason for Visit Chief Complaint CHEST PAIN LOWER LT ABD PAIN CHEST PAIN Reason for Visit Abdominal pain BPH (benign prostatic hyperp lasia) 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 Chest pain Neck pain Tetralogy of Fallot Essential hypertension Mixed hyperlipidemia Paroxysmal atrial fibrillati on Type 2 diabetes mellitus Atypical chest pain 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 Chest pain Essential hypertension Paroxysmal atrial fibrillati on Allergies, Adverse Reactions, Alerts Allergen Type Severity Reaction Last Updated Verified Status atorvastatin Allergy Unknown Hives December 01, Yes Acti ve 2021 9:23am peas Allergy Unknown Hives (Green December 01, Yes Acti ve Peas) 2021 9:23am bee venom protein Allergy Unknown December 01, Yes Active (honey bee) 2021 9:23am Social History Smoking Status Status Start Date End Date Date of Observat ion Never smoked tobacco (finding) M arch 2019 6:38am Observation Status Observation Response Date of Response Living Situation Care Home November 21, 2021 12 :13pm Living Situation Sober House December 03, 2021 9:23am Lives With Alone December 02, 2021 11:25am Living Situation [facility] November [id number] [...] Disconti 1 PUFF INH DAILY Aprilr Propionate nu (Flovent 50 2018, Mcg Diskus) 1:00am 2018 60 PUFF/DISK 2:28am Disk Acetaminophen Disconti 650 MG PO EVERY 6 April nued HOURS 2018 1:00am 11:34a m Lorazepam Disconti 0.5 MG PO DAILY April 1:00am 11:30a m Omeprazole Disconti 20 MG PO DAILY Apriled 2018 1:00am 11:30a m Montelukast Disconti 10 MG PO ONCE DAILY April Meng h nued AT BEDTIME 2018 1:00am [...] Disconti 50 MG PO ONCE DAILY April Ma rch nued AT BEDTIME 2018 1:00am [...] Albuterol Active 2 INH INH DAILY November Sulfate 2021 12:00am Lisinopril Active 2.5 MG PO [...] Disconti 8.6 MG PO TWICE A DAY 60 November Augus t (Senna) 8.6 nued , mg Capsule [...] ED Electrocardiogram December 01, 2021 10:05am completed Relevant Diagnostic Tests and/or Laboratory Data Laboratory Results Test Date/Time Result Interpretation Reference Result Perfo rming Range Comment Site Add-On Test [place] Added [facility] Request 2021 test [address] [facility] 3:59pm Noel M A [id number] White Blood Count November 5.6 X10 4.5-11.0 [facility] 2021 3/uL [address] [facility] 8:20am Noel M A 24790 White Blood Count November 8.5 X10 4.5-11.0 [facility] 2021 3/uL 235 [facility] 9:50pm Noel M A 05537 White Blood Count December 7.2 X10 4.5-11.0 [facility] 2021 3/uL 235 [facility] 6:11am Noel M A 85961 Red Blood Count November 3.95 X10 4.00-5.50 [facility] 2021 6/uL 235 [facility] 8:20am Noel M A 88746 Red Blood Count November 4.46 X10 4.00-5.50 [facility] 2021 6/uL 235 [facility] 9:50pm Noel M A 67100 Red Blood Count December 4.53 X10 4.00-5.50 [facility] 2021 6/uL 235 [facility] 6:11am Noel M A 03817 Hemoglobin November 12.0 g/dl 12.0-17.0 [facility] 2021 235 [facility] 8:20am Noel M A 34045 Hemoglobin November 13.8 g/dl 12.0-17.0 [facility] 2021 235 [facility] 9:50pm Noel M A 94940 Hemoglobin December 13.7 g/dl 12.0-17.0 [facility] 2021 235 [facility] 6:11am Noel M A 83598 Hematocrit November 36.9 % 35.0-50.0 [facility] 2021 235 [facility] 8:20am Noel M A 52428 Hematocrit November 41.4 % 35.0-50.0 [facility] 2021 235 [facility] 9:50pm Noel M A 37270 Hematocrit Brittany 41.9 % 35.0-50.0 [facility] 2021 235 [facility] 6:11am Noel M A 06804 Mean Corpuscular [place] 93.4 fl 80.0-100.0 [facility] Volume 2021 235 [facility] 8:20am Noel M A 04908 Mean Corpuscular November 92.8 fl 80.0-100.0 [facility] Volume 2021 235 [facility] 9:50pm Noel M A 93793 Mean Corpuscular December 92.5 fl 80.0-100.0 [facility] Volume 2021 235 [facility] 6:11am Noel M A 18314 Mean Corpuscular November 30.4 pg 27.0-34.0 [facility] Hemoglobin 2021 235 [facility] 8:20am Noel M A 27434 Mean Corpuscular November 30.9 pg 27.0-34.0 [facility] Hemoglobin 2021 235 [facility] 9:50pm Noel M A 74689 Mean Corpuscular December 30.2 pg 27.0-34.0 [facility] Hemoglobin 2021 235 [facility] 6:11am Noel M A 29138 Mean Corpuscular November 32.5 g/dl 31.0-36.0 [facility] Hemoglobin 2021 235 [facility] Concent 8:20am Noel M A 91055 Mean Corpuscular November 33.3 g/dl 31.0-36.0 [facility] Hemoglobin 2021 235 [facility]cent 9:50pm Noel M A 29697 Mean Corpuscular Brittany 32.7 g/dl 31.0-36.0 [facility] Hemoglobin 2021 235 [facility] Concent 6:11am Noel M A 09441 Red Cell [place] 12.6 % 11.5-15.0 [facility] Distribution [address] Width 8:20am Noel M A 29819 Red Cell November 12.5 % 11.5-15.0 [facility] Distribution [address] Width 9:50pm Noel M A 24126 Red Cell December 12.5 % 11.5-15.0 [facility] Distribution [address] Width 6:11am Noel M A 05806 Platelet Count November 90 X10 150-400 [facility] 2021 3/uL [address] 8:20am Noel M A 91114 Platelet Count November 103 X10 150-400 [facility] 2021 3/uL [address] 9:50pm Noel M A 26815 Platelet Count December 103 X10 150-400 Correlates [facility] 2021 3/uL with previous [address] 6:11am results Noel M A 11496 Immature November 1.1 % [facility] Granulocyte % [address] (Auto) 8:20am Noel M A 24638 Immature November 1.5 % [facility] Granulocyte % [address] (Auto) 9:50pm Noel M A 34687 Immature December 1.9 % [facility] Granulocyte % [address] (Auto) 6:11am Noel M A 96785 Neutrophils (%) November 62.7 % [facility] (Auto) [address] 8:20am Noel M A 96605 Neutrophils (%) November 66.2 % [facility] (Auto) [address] 9:50pm Noel M A 49203 Neutrophils (%) December 61.5 % [facility] (Auto) [address] 6:11am Noel M A 75504 Lymphocytes (%) November 18.8 % [facility] (Auto) [address] 8:20am Noel M A 73888 Lymphocytes (%) November 18.0 % [facility] (Auto) 2021 235 [facility] 9:50pm Noel M A 52376 Lymphocytes (%) December 19.3 % [facility] (Auto) 2021 235 [facility] 6:11am Noel M A 34701 Monocytes (%) November 9.8 % [facility] (Auto) 2021 235 [facility] 8:20am Noel M A 32533 Monocytes (%) November 8.7 % [facility] (Auto) 2021 235 [facility] 9:50pm Noel M A 40827 Monocytes (%) December 10.0 % [facility] (Auto) 2021 235 [facility] 6:11am Noel M A 08956 Eosinophils (%) November 6.2 % [facility] (Auto) 2021 235 [facility] 8:20am Noel M A 38083 Eosinophils (%) November 4.2 % [facility] (Auto) 2021 235 [facility] 9:50pm Noel M A 84843 Eosinophils (%) December 6.0 % [facility] (Auto) 2021 235 [facility] 6:11am Noel M A 03955 Basophils (%) November 1.4 % [facility] (Auto) 2021 235 [facility] 8:20am Noel M A 28176 Basophils (%) November 1.4 % [facility] (Auto) 2021 235 [facility] 9:50pm Noel M A 10917 Basophils (%) December 1.3 % [facility] (Auto) 2021 235 [facility] 6:11am Noel M A 86411 Immature [place] 0.06 X10 0.00-0.09 [facility] Granulocyte # 2021 3/uL [address] [facility] (Auto) 8:20am Noel M A 91795 Immature [place] 0.13 X10 0.00-0.09 [facility] Granulocyte # 2021 3/uL [address] (Auto) 9:50pm Noel M A 30880 Immature Brittany 0.14 X10 0.00-0.09 [facility] Granulocyte # 2021 3/uL [address] (Auto) 6:11am Noel M A 36222 Neutrophils # [place] 3.5 X10 1.5-7.8 [facility] (Auto) 2021 3/uL [address] [facility] [address] 8:20am Noel M A 68958 Neutrophils # [place] 5.6 X10 1.5-7.8 [facility] (Auto) 2021 3/uL 235 [facility] 9:50pm Noel M A 04280 Neutrophils # Brittany 4.4 X10 1.5-7.8 [facility] (Auto) 2021 3/uL 235 [facility] 6:11am Noel M A 80096 Lymphocytes # [place] 1.1 X10 1.0-4.8 [facility] (Auto) 2021 3/uL [address] [facility] [address] 8:20am Noel M A 27938 Lymphocytes # [place] 1.5 X10 1.0-4.8 [facility] (Auto) 2021 3/uL 235 [facility] 9:50pm Noel M A 72199 Lymphocytes # Brittany 1.4 X10 1.0-4.8 [facility] (Auto) 2021 3/uL [address] [facility] [address] 6:11am Noel M A 04328 Monocytes # [place] 0.6 X10 0.0-0.8 [facility] (Auto) 2021 3/uL [address] [facility] [address] 8:20am Noel M A 28187 Monocytes # [place] 0.7 X10 0.0-0.8 [facility] (Auto) 2021 3/uL 235 [facility] 9:50pm Noel M A 96737 Monocytes # Brittany 0.7 X10 0.0-0.8 [facility] (Auto) 2021 3/uL 235 [facility] 6:11am Noel M A 88894 Eosinophils # [place] 0.4 X10 0.0-0.5 [facility] (Auto) 2021 3/uL [address] [facility] [address] 8:20am Noel M A 69110 Eosinophils # [place] 0.4 X10 0.0-0.5 [facility] (Auto) 2021 3/uL 235 [facility] 9:50pm Noel M A 86832 Eosinophils # Brittany 0.4 X10 0.0-0.5 [facility] (Auto) 2021 3/uL 235 [facility] 6:11am Noel M A 26791 Basophils # [place] 0.1 X10 0.0-0.2 [facility] (Auto) 2021 3/uL 235 [facility] 8:20am Noel M A 35935 Basophils # [place] 0.1 X10 0.0-0.2 [facility] (Auto) 2021 3/uL 235 [facility] 9:50pm Noel M A 09086 Basophils # Brittany 0.1 X10 0.0-0.2 [facility] (Auto) 2021 3/uL 235 [facility] 6:11am Noel M A 99209 Hemoglobin A1c November 6.6 4.3-5.9 [facility] 2021 235 [facility] 6:10am Noel M A 33227 Estimated Average November 143 mg/dl [facility] Glucose (eAG) 2021 [address] [facility] 6:10am Noel M A 83721 Nucleated Red [place] 0.0 /100 0.0-0.0 [facility] Blood Cells % 2021 WBC [address] [facility] [address] 8:20am Noel M A 66307 Nucleated Red [place] 0.0 /100 0.0-0.0 [facility] Blood Cells % 2021 WBC [address] [facility] 9:50pm Noel M A 73440 Nucleated Red Brittany 0.0 /100 0.0-0.0 [facility] Blood Cells % 2021 [facility] Noel M A 93594 Prothrombin Time November 11.1 9.3-12.1 Goo d [facility] 2021 Seconds 235 [facility] 5:31am Noel M A 65409 Prothromb Time November 1.0 0.9-1.2 Reference Interval is for non-anticoagulated patients. [facility] 2021 Suggested I NR Therapeutic Range for Vitamin K antogonist therapy: 235 [facility] Ratio 5:31am LEVELS OF Noel M A 24803 THERAPY INDICATIONS TARGET INR RANGE Standard Dose Venous Thrombosis, 2.0 - 3.0 Atrial Fibrillation , Pulmonary Embolism. High Dose Valvular H eart Disease, 2.5 - 3.5 Mechanical Heart, Intracardiac Thromb osis. Urine Color November Yellow Yellow [facility] 2021 235 [facility] 10:06pm Noel M A 51445 Urine Clarity November Clear Clear [facility] 2021 235 [facility] 10:06pm Noel M A 04413 Urine pH November 5.5 5.0-8.0 [facility] 2021 235 [facility] 10:06pm Noel M A 54175 Urine Specific November 1.013 1.005-1.03 [facility] [place] 2021 0 235 [facility] 10:06pm Noel M A 79720 Urine Blood November Negative Negative [facility] 2021 mg/dL 235 [facility] 10:06pm Noel M A 15541 Urine Protein November Negative Negative [facility] 2021 mg/dL 235 [facility] 10:06pm Noel M A 51218 Urine Glucose November Negative Negative [facility] (UA) 2021 mg/dl 235 [facility] 10:06pm Noel M A 91031 Urine Ketones November Negative Negative [facility] 2021 mg/dL 235 [facility] 10:06pm Noel M A 45302 Urine Nitrate November Negative Negative [facility] 2021 235 [facility] 10:06pm Romeo Perry A 05294 Urine Bilirubin November Negative Negative [facility] 2021 mg/dL 235 [facility] 10:06pm Noel M A 49931 Urine [place] 0.[address] [facility] Urobilinogen 2021 E.U./dL [address] 10:06pm Romeo Perry A 02376 Urine Leukocyte November Negative Negative [facility] Esterase 2021 mg/dL 235 [facility] 10:06pm Noel Orlando A 13094 Sodium Level November 141 137-146 [facility] 2021 mmol/L 235 [facility] 6:10am Noel M A 03791 Sodium Level November 137 137-146 [facility] 2021 mmol/L 235 [facility] 9:50pm Noel Orlando A 78075 Sodium Level December 138 137-146 [facility] 2021 mmol/L 235 [facility] 6:11am Noel M A 62900 Potassium Level November 4.2 3.5-5.3 [facility] 2021 mmol/L 235 [facility] 6:10am Noel M A 05705 Potassium Level November 4.7 3.5-5.3 Specimen [facility] 2021 mmol/L hemolyzed, 235 [facility] 9:50pm results Noel M A 10310 affected Potassium Level December 4.6 3.5-5.3 Specimen [facility] 2021 mmol/L hemolyzed, 235 [facility] 6:11am results Noel M A 72619 affected Chloride Level November 102 98-107 [facility] 2021 mmol/L 235 [facility] 6:10am Noel M A 30994 Chloride Level November 99 mmol/L 98-107 [facility] 2021 235 [facility] 9:50pm Noel M A 04658 Chloride Level December 99 mmol/L 98107 [facility] 2021 235 [facility] 6:11am Noel M A 90300 Carbon Dioxide November 26 mmol/L 23-32 [facility] Level 2021 [address] [facility] [address] 6:10am Noel M A 17719 Carbon Dioxide November 27 mmol/L [facility] Level 2021 [address] [facility] [address] 9:50pm Noel M A 89118 Carbon Dioxide December 24 mmol/L [facility] Level 2021 [address] [facility] [address] 6:11am Noel M A 95255 Anion Gap November 13 mmol/L 08-15 [facility] 2021 [address] [facility] [address] 6:10am Noel M A 10668 Anion Gap November 11 mmol/L 08-15 [facility] 2021 [address] [facility] [address] 9:50pm Noel M A 01920 Anion Gap December 16 mmol/L 08-15 [facility] 2021 235 [facility] 6:11am Noel M A 34651 Blood Urea November 16 mg/dl 08-25 [facility] Nitrogen 2021 235 [facility] 6:10am Noel M A 51858 Blood Urea November 22 mg/dl 08-25 [facility] Nitrogen 2021 [address] [facility] [address] 9:50pm Noel M A 33969 Blood Urea December 31 mg/dl 08-25 [facility] Nitrogen 2021 235 [facility] 6:11am Noel M A 94217 Creatinine November 1.1 mg/dL 0.6-1.4 [facility] [address] [facility] [address] 6:10am Noel M A 02599 Creatinine November 1.3 mg/dL 0.6-1.4 [facility] [address] [facility] [address] 9:50pm Noel M A 57460 Creatinine December 1.3 mg/dL 0.6-1.4 [facility] [address] [facility] [address] 6:11am Noel M A 90912 Estimated November 74.7 This value [facility] Creatinine 2021 ml/min is calculated [address] [facility] [address] Clearance 6:10am [place] [address] Gault Equation using ideal body weight. This result is dependent on an accurate patient height and weight which is obtained from patients medical record. Cockcroft, D.W. and M.H. Gault. Prediction of creatinine clearance from serum creatinine. Nephron. 1975. 16(1):-. Estimated November 74.4 This value [facility] Creatinine 2021 ml/min is calculated [address] Clearance 9:50pm [place] [address] Gault Equation using ideal body weight. This result is dependent on an accurate patient height and weight which is obtained from patients medical record. Cockcroft, D.W. and M.H. Gault. Prediction of creatinine clearance from serum creatinine. Nephron. 1975. 16(1):-41. Estimated December 75.2 This value [facility] Creatinine 2021 ml/min is calculated [address] Clearance 6:11am [place] [address] Gault Equation using ideal body weight. This result is dependent on an accurate patient height and weight which is obtained from patients medical record. Cockcroft, D.W. and M.H. Gault. Prediction of creatinine clearance from serum creatinine. Nephron. 1975. 16(1):31-41. Estimated GFR November 85 >60 [facility] ( [address] [place]) 6:10am Noel M A 19042 Estimated GFR November 69 >60 [facility] ( [address] [place]) 9:50pm Noel M A 26810 Estimated GFR December 69 >60 [facility] ( [address] [place]) 6:11am Noel M A 00376 Estimated GFR November 73 >60 [facility] (Non- [address] [place] 6:10am Noel M A 32829 Estimated GFR November 60 >60 [facility] (Non- [address] [place] 9:50pm Noel M A 51079 Estimated GFR December 60 >60 [facility] (Non- 2021 235 [facility] [place] 6:11am Noel M A 41705 BUN/Creatinine November 14.5 10.0-20.0 [facility] Ratio 2021 235 [facility] 6:10am Noel M A 25453 BUN/Creatinine November 16.9 10.0-20.0 [facility] Ratio 2021 235 [facility] 9:50pm Noel M A 98504 BUN/Creatinine December 23.8 10.0-20.0 [facility] Ratio 2021 235 [facility] 6:11am Noel M A 06419 Glucose Level November 106 mg/dL 70-100 [facility] 2021 235 [facility] 6:10am Noel M A 77220 Glucose Level November 226 mg/dL 70-100 [facility] 2021 235 [facility] 9:50pm Noel M A 07681 Glucose Level December 145 mg/dL 70-100 [facility] 2021 235 [facility] 6:11am Noel M A 46852 Calcium Level November 8.6 mg/dl 8.6-10.3 [facility] 2021 235 [facility] 6:10am Noel M A 70431 Calcium Level November 8.8 mg/dl 8.6-10.3 [facility] 2021 235 [facility] 9:50pm Noel M A 95233 Calcium Level December 8.4 mg/dl 8.6-10.3 [facility] 2021 235 [facility] 6:11am Noel M A 42753 Total Bilirubin November 0.3 mg/dl <1.1 [facility] 2021 235 [facility] 9:50pm Noel M A 16211 Total Bilirubin November 0.4 mg/dl <1.1 [facility] 2021 235 [facility] 9:49am Noel M A 28177 Aspartate Amino [place] 16 U/L 15-41 [facility] Transf (AST/SGOT) 2021 2 35 [facility] 9:50pm Noel M A 49091 Aspartate Amino November 17 U/L 15- [facility] Transf (AST/SGOT) 2021 2 35 [facility] 9:49am [facility] A 77258 Alanine November 18 U/L [facility] Aminotransferase 2021 23 5 [facility] (ALT/SGPT) 9:50pm [place] [address] Alanine November 20 U/L [facility] Aminotransferase 2021 23 5 [facility] (ALT/SGPT) 9:49[place] [address] Troponin T High November 13 ng/L <13 Normal range: Females <9 ng/L [facility] Sensitivity 2021 Males <14 ng/L 2 35 [facility] 12:10am Noel M A 02522 Values greater than or equal to 52 [...] ng/L <13 Normal range: Females <9 ng/L [facility] Sensitivity 2021 Males <14 ng/L 2 35 [facility] 1:09pm Noel M A 03608 Values greater than or equal to 52 [...] setting). Total Protein November 6.7 g/dL 6.4-8.3 [facility] 2021 [facility] 9:50pm Noel M A 18792 Total Protein November 6.7 g/dL 6.4-8.3 [facility] 2021 235 [facility] 9:49am Noel M A 56180 Albumin [place] 4.0 g/dl 4.0-5.0 [facility] 2021 235 [facility] 9:50pm Noel M A 42689 Albumin [place] 4.3 g/dl 4.0-5.0 [facility] 2021 235 [facility] 9:49am Noel M A 59376 Albumin/Globulin [place] 1.5 1.0-2.6 [facility] Ratio 2021 235 [facility] 9:50pm Noel M A 75719 Albumin/Globulin November 1.8 1.0-2.6 [facility] Ratio 2021 235 [facility] 9:49am Noel M A 08142 Alkaline [place] 93 U/L 40-129 [facility] Phosphatase 2021 235 [facility] 9:50pm Noel M A 71964 Alkaline [place] 84 U/L 40-129 [facility] Phosphatase [address] 9:49am Noelkathy Mendosa [address] Lipase November 36 U/L 13-60 [facility] [address] 9:50pm Romeo Mendosa Prostate Specific [place] 0.63 <3.09 [facility] Clinical Labs Antigen 2021 ng/ml 736 [facility] 12:10am [facility] [address] Thyroid November 4.83 0.34-5.60 [facility] Stimulating 2021 uIU/mL [address] [facility] Hormone (TSH) 8:20am [facility] Bedside Glucose November 165 mg/dl 70-100 NOTE: Any discrepancy between finger stick glucose result [facility] 2021 and patient's clin ical presentation should be 235 [facility] 11:31am confirmed by the tn neto. [facility] Bedside Glucose December 181 mg/dl 70-100 NOTE: Any discrepancy between finger stick glucose result [facility] 2021 and patient's clini joanne presentation should be 235 [facility] 11:40am confirmed by the tn [facility]. [facility] Microbiology Results Procedure Source Result Collection Result Result Performin g Date/Time Date/Time Comment Site SARS-CoV-2, Nares, Both November 23, [place] d [facility] Influenza & Left & 2021 1:56pm [address] RSV (PCR) Right Noel M [facility] Reports Report Dictated Date/Time Dictated By Status Radiology Report November 20, 2021 9:08am Deniz Silva MD comp leted [facility] [address] [place] [address] Patient Name: Joaquín Barrientos [facility] rd#: [id number] Address: [address] [place] [address] City/State/Zip: [place] [address]: Ethan Washington MD Insurance: [facility] /Age/Sex: 1960/61[birth year]M Self Pay Admit/Reg Date: 11/20/[address]: Haris Bradshaw DO Location: ED.MELONIE/EUGENIEXFRDavid7 PCP: Md MELANIE Lee Date of Service: 11/20/21 Order (s): XR chest 2V CPT Code: 87796 Report Number: [id number] Reason for Exam: Chest Pain EXAM: [...] Silva MD 11/20/21 0913 TD/TT: 11/20/21 0908Tech: [facility] cc: [id number]; HRSSPETE; PCPNO* PcpMD Alex; Cathleen Washington MD; Vince Bradshaw DO Report Dictated Date/Time Dictated By Status Electrocardiogram November 20, 2021 Warren iRvas MD completed [place] [id number] Patient Name: Joaquín Barrientos [facility] rd#: [id number] Address: [address] [place] [address] 85 City/State/Zip: [place] [address]: Ethan Washington MD Insurance: [facility] /Age/Sex: 1960/61[birth year]M Self Pay Admit/Reg Date: 11/20/[address]: Haris Bradshaw DO Location: ED.MELONIE/EUGENIEXMANDO7 PCP: Md MELANIE Lee Date of Service: 11/20/21 Order (s): EKG ED Electrocardiogram CPT Code: 61211 Report Number: [id number] Reason for Exam: Chest Pain SINUS RHYTHM RIGHT BUNDLE BRANCH BLOCK LEFT POSTERIOR FASCICULAR BLOCK Dictated By: Warren Rivas MD 11/20/21 Signed By: Warren Rivas MD 11/20/21 1442 TD/TT: 11/20/21 1441Tech: cc: [email or web address]; PCPSHANNAN* Pcp-MD Renny; Titus Bradshaw DO Report Dictated Date/Time Dictated By Status Radiology Report November 20, 2021 1:35pm Titus Martinez MD compl eted [facility] [address] [place] [address] Patient Name: Joaquín Barrientos [facility] rd#: [id number] Address: [address] [place] [address] City/State/Zip: [place] [address]: Ethan Washington MD Insurance: [facility] /Age/Sex: 1960/61[birth year]M Self Pay Admit/Reg Date: 11/20/[address]: Caio Washington MD; Michael Moy, [facility] Location: ED[facility]/GSXFR-7 PCP: Pcp-Md MELANIE Lawson Date of Service: 11/20/21 Order (s): CT abd pelvis wo/w contrast; CT cervical spine wo contrast CPT Code: 48053; 21578 Report Number: [id number] Reason for Exam: hx cervical fracture in past. neck pain PROCEDURE: CERVICAL SPINE CT HISTORY: Neck pain. History of cervical fracture. COMPARISON: None TECHNIQUE: Noncontrast CT of the cervic al spine.Multiplanar imaging was reviewed. CT technique involves the adju stment of the mA and/or kV according to patient size. MIPS Measure #361 Patient Exposure to Ionizing Radiation was submitted to [employer] ([employer]) Elizabeth onal Data [...] to [employer] ([employer]) [facility] [...] Martinez MD 11/20/21 1452 TD/TT: 11/20/21 1335Tech: [id number] cc: TIA; DEANNE; CRYSTAL Singh Pcp-MD Renny; Cathleen Washington MD; Ceferino Shannon, PAC Report Dictated Date/Time Dictated By Status Radiology Report November 21, 2021 4:29pm Fer Lopez MD com pleted [facility] [address] [place] [address] Patient Name: Joaquín Barrientos [facility] rd#: [id number] Address: [address] [place] [address] City/State/Zip: [place] [address]: Ethan Washington MD Insurance: [facility] /Age/Sex: 1960/61[birth year]M Self Pay Admit/Reg Date: 11/21/[address]: Caio Washington MD Location: 3A./[id number]-Y PCP: Md MELANIE Lee Date of Service: 11/21/21 Order (s): US bladder CPT Code: 90244 Report Number: [id number] Reason for Exam: possible tumor per [...] November 22, 2021 5:27pm Eduar Monzon MD [place] [address] [place] [address] Patient Name: Joaquín Barrientos [facility] rd#: [id number] Address: [address] [place] [address] City/State/Zip: [place] [address]: Ethan Washington MD Insurance: [facility] /Age/Sex: 1960/61[birth year]M Self Pay Admit/Reg Date: 11/21/[address]: Caio Washington MD Location: 3A./[id number]-M PCP: Md MELANIE Lee Date of Service: 11/22/21 Order (s): NM bone scan whole body CPT Code: 23424 Report Number: [id number] Reason for Exam: c2 fracture THREE [...] By: Eduar Monzon MD 11/22/211736 TD/TT: 11/22/211726Tech: [facility] cc: HRSSPETE; PCPNO* Md Jesus MD; Cathleen Washington MD Report Dictated Date/Time Dictated By Status Electrocardiogram November 20, 2021 1:40am Jagjit Blum MD comp [facility] [address] [place] [address] Patient Name: Joaquín Barrientos [facility] rd#: [id number] Address: [address] [place] [address] City/[facility]/Zip: [place] [address]: Ethan Washington MD Insurance: [facility] /Age/Sex: 1960/61[birth year]M Self Pay Admit/Reg Date: 11/21/[address]: E/ R Olga Correa Location: 3A.[email or web address]][id number] PCP: Md MELANIE Lee Date of Service: 11/20/21 Order (s): EKG ED Electrocardiogram CPT Code: 79656 Report Number: [id number] Reason for Exam: CP Sinus rhythm [...] November 21, 2021 6:26pm Jagjit Blum MD comp [facility] [address] [place] [address] Patient Name: Joaquín Barrientos [facility] rd#: [id number] Address: [address] [place] [address] City/State/Zip: [place] [address]: Ethan Washington MD Insurance: [facility] /Age/Sex: 1960/61/M Self Pay Admit/Reg Date: 11/21/[address]: Caio Washington MD Location: 3A.[facility] [[email or web address]][id number] PCP: Md MELANIE Lee Date of Service: 11/21/21 Order (s): EKG Electrocardiogram CPT Code: 10719 Report Number: [id number] Reason for Exam: CP Sinus rhythm with 1st degree A-V block Rightward axis Right bundle branch block Left posterior fascicular block Low QRS voltages in precordial leads Dictated By: Jagjit Blum MD 11/21/21 18 26 Signed By: Jagjit Blum MD 11/22/211818 TD/TT: 11/21/211825Tech: [facility] cc: HRSSPNABIL; PCPSHANNAN* Md Jesus MD; Cathleen Washington MD Report Dictated Date/Time Dictated By Status Radiology Report November 23, 2021 10:26am Saulo Mcnulty MD completed [address] [address] Patient Name: Joaquín Barrientos [facility] rd#: [id number] Address: [address] [place] [address] 85 City/State/Zip: [place] [address]: Ethan Washington MD Insurance: [facility] /Age/Sex: 1960/61/M Self Pay Admit/Reg Date: 11/21/[address]: Caio Washington MD Location: [address]A.[address] PCP: Md MELANIE Lee Date of Service: 11/23/21 Order (s): CT head/brain wo contrast CPT Code: 24717 Report Number: [id number] Reason for Exam: followup parietal lesio [...] MD 11/24/21 0 558 TD/TT: 11/23/21 1026Tech: [id number] cc: HRSSPETE; PCPNO* Pcp-MD Renny; Cathleen Washington MD Report Dictated Date/Time Dictated By Status Radiology Report December 01, 2021 10:06am [place] [address] Patient Name: Joaquín Barrientos [facility] rd#: [id number] Address: [address] City/State/Zip: [place] [address]: Prakash Saravia MD Insurance: [facility] /Age/Sex: 1960/61[birth year]M Self Pay Admit/Reg Date: 12/01/[address]: HEAVENLY Montes De Oca Location: ED.GS/ PCP: Pcp-Non StaffMd Date of Service: 12/01/21 Order (s): XR chest 2V CPT Code: 94811 Report Number: [id number] Reason for Exam: chest pain Patient [...] Dodge MD 12/01/21 1011 TD/TT: 12/01/21 1006Tech: [facility] cc: LOGEM; PCPNS; AMADO* DAKOTA Owen; Prakash Saravia MD; TERESSA CONCEPCION Report Dictated Date/Time Dictated By Status Electrocardiogram December 01, 2021 8:57am Prakash Saravia MD comp leted [facility] [address] [place] [address] Patient Name: Joaquín Barrientos [facility] rd#: [id number] Address: [address] City/State/Zip: [place] [address]: Sean Salmeron MD Insurance: [facility] /Age/Sex: 1960/61[birth year]M Self Pay Admit/Reg Date: 12/01/[address]: HEAVENLY Montes De Oca Location: [address] [place] [address] PCP: Pcp-Beba lopes Md Date of Service: 12/01/21 Order (s): EKG ED Electrocardiogram CPT Code: 50991 Report Number: [id number] Reason for Exam: Chest pain CONSIDER ACUTE ST ELEVATION CO Sinus rhythm with borderline 1st degree A-V block Rightward axis Right bundle branch block Inferior and septal ST elevation, CONSI WILLOW ACUTE INFARCT Lateral ST-T abnormality suggests myoca rdial injury/ischemia Dictated By: Prakash Saravia MD 12/01/21 08 57 Signed By: Prakash Saravia MD 12/02/21 0816 TD/TT: 12/01/21 0857Tech: AMADO cc: LOGEM; PCPBENITA* DAKOTA Owen; TERESSA RUIZ Report Dictated Date/Time Dictated By Status Electrocardiogram December 01, 2021 10:05am Prakash Saravia MD com pleted [facility] [address] [place] [address] Patient Name: Joaquín Barrientos [facility] rd#: [id number] Address: [address] City/State/Zip: [place] [address]: Sean Salmeron MD Insurance: [facility] /Age/Sex: 1960/61[birth year]M Self Pay Admit/Reg Date: 12/01/[address]: HEAVENLY Montes De Oca Location: [address] [place] [address] PCP: Pcp-Non Kirill lopes Md Date of Service: 12/01/21 Order (s): EKG ED Electrocardiogram CPT Code: 58987 Report Number: [id number] Reason for Exam: CHEST PAIN Sinus rhythm Lead(s) unsuitable for analysis: V3 Right axis deviation Right bundle branch block Dictated By: Prakash Saravia MD 12/01/21 05 Signed By: Prakash Saravia MD 12/02/21816 TD/TT: 12/01/21 1005Tech: AMADO cc: LOGEM; PCPNS* Shira Al PAC; TERESSA RUIZ Vital Signs Vital Reading Result [...] Oxygen saturation by Pulse 95 % 95-100 Augus 2021 11:53pm oximetry BP Systolic 120 mm[Hg] 90-140 November 28 11:53pm BP Diastolic 78 mm[Hg] 60-90 November 28 11:53pm BMI (Body Mass Index) 35.4 kg/m2 November 10:45pm Height 175.26 cm December 02 12:39am Weight 111.13 kg December 02 12:39am Body Temperature 98.3 [degF] 97.6-99.6 December 03, 2021 7:25am Heart Rate 81 /min 60-90 December 03 11:39am Respiratory rate 20 /min -December 03, 2021 7:25am Oxygen saturation by Pulse 96 % 95-100 2021 7:25am oximetry BP Systolic 135 mm[Hg] 90-140 December 03 7:25am BP Diastolic 47 mm[Hg] 60-90 December 03 7:25am BMI (Body Mass Index) 36.2 kg/m2 December 02, 2021 12:39am Advance Directives Advance Directive Response Recorded Date/Time Advance Directives No November 21, 2021 1: 46pm Health Care Proxy Yes November 21, 2021 1: 46pm Advance Directives No December 02, 2021 11:25am Health Care Proxy No December 02, 2021 11:25am Pt has Medical Orders for Life Sustaining Tx No December 02, 2021 11:25am Form (MOLST)? Advance Directives No November 28, 2021 9: 34pm Health Care Proxy No November 28, 2021 9: 34pm Insurance Providers Guarantor Joaquín Barrientos Address [address] [place] [address] Contact Info. Home Phone: Payer Policy Id Coverage Id Subscriber's Subscriber Effective Expi ration Name Id Date Date [facility] [id number] Joaquín Barrientos [id number] [employer] Medicare A&B [id number] Joaquín Barrientos [id number] Self Pay Self N/A Encounters Encounter Location(s) Arrival/Admit Date Discharge/Depart Date Provider(s) Discharged [facility] November 21, 2021 November 23, 2021 Zamora , Inpatient Medical 9:59am 4:58pm Center-[facility] Departed [facility] November 28, 2021 November 29, 2021 nul l Emergency Medical 9:07pm 12:08am Center-Emergency Dept Discharged [facility] December 03December 03, 2021 Luther Salmeron , Inpatient Medical 2021 9:24am 1:31pm Center-3A Recent Diagnosis Onset Date Abdominal pain BPH (benign prostatic hyperplasia) Cardiac defibrillator in situ Chest pain Neck pain Tetralogy of Fallot Essential hypertension Mixed hyperlipidemia Paroxysmal atrial fibrillation Type 2 diabetes mellitus Atypical chest pain Cardiac defibrillator in situ Chest pain Essential hypertension Paroxysmal atrial fibrillation Functional Status Observation Response Date Recorded Assistive Devices None November 21, 2021 1: 46pm Ambulation Tolerance [facility], [facility]1983 November 23, 2021 1 0:43am Bathing Type Self Care November 23, 2021 10 :43am Date of Last Bowel Movement 11/23/21 November 23, 2021 11:58am Oral Care Teeth Brushing November 23, 2021 10 :43am Mouth Rinse November 23, 2021 10 :43am Assistive Devices None December 02, 2021 11:25am Ambulation Tolerance [facility] December 03, 2021 4:07am Date of Last Bowel Movement 12/03/21December 4:07am Oral Care Teeth Brushing December 03, 2021 4:07am Mouth Rinse December 03, 2021 4:07am Mental Status Observation Response Date Recorded Arousable To Name November 23, 2021 11 :58am Patient Behavior Appropriate November 23, 2021 11 :58am Cooperative November 23, 2021 11 :58am Comprehension Ability Understands Concepts November 23, 2021 11:58am Level of Consciousness Awake November 23, 2021 11:58am Alert November 23, 2021 11 :58am Appropriate November 23, 2021 11 :58am Follows Commands November 23, 2021 11 :58am Arousable To Name December 03, 2021 4:07am Patient Behavior Asleep December 03, 2021 4:07am Comprehension Ability Understands Concepts December 03 4:07am Level of Consciousness Awake December 03 4:07am Alert December 03, 2021 4:07am Appropriate December 03, 2021 4:07am Follows Commands December 03, 2021 4:07am Assessments Diagnosis Onset Date Resolution Status Abdominal pain acute BPH (benign prostatic hyperplasia) acute Cardiac defibrillator in situ ac tolowa dee-ni' Chest pain acute Neck pain acute Tetralogy of Fallot chronic Essential hypertension chronic Mixed hyperlipidemia chronic Paroxysmal atrial fibrillation c hronic Type 2 diabetes mellitus chronic Atypical chest pain acute Cardiac defibrillator in situ ac tolowa dee-ni' Chest pain acute Essential hypertension chronic Paroxysmal atrial fibrillation c [...] Md MD TERESSA RUIZ Work Phone: [address] [facility] [address] [place] [address] TERESSA RUIZ Work Phone: [address] [place] [address] [address] [facility] [address] [place] [address] Wally Stone Work Phone: [facility] Urology MD Diana [address], [address] [facility] [address] Future Procedures Procedure Name Scheduled Date Hospital [...] 4:17am Urology Consult November 22, 2021 3:58pm Cardiac Cath Order December 02, 2021 11:13am Hospital Level of Care December 03, 2021 9:24am Case Management Consult December 01, 2021 11:47pm Discharge December 03, 2021 11:46am Spiritual Care Consult December 01, 2021 11:47pm Chinese Herbalist Consult December 01, 2021 11:47pm Cardiology Consult [...] am Transradial Band December 02, 2021 1:51pm Saline Lock Insert/Manage November 28, 2021 9:30pm [...] 6 mm in thickness. BLADDER US: pending Mr. Barrietnos YOu will need to follow up with your [facility] doctor within 1-2 weeks. Please see the urologist as an outpatien t regarding your prostate. Please refrain from drinking any alcohol . Thank you Absence of falls Including: - Early & [...] of coping skills -Demonstrates/verbalizes decreased anxie ty Cardiac rhythm stable Including: - Cardiac rhythm [...]
--- OUTSIDE RECORDS SUMMARY | 2022-04-07 13:27 | XMS_ITS | Continuity of Care Document ---
:1960 Author Organization [facility] Address [address] [place] [address] Phone Care Team Providers Name Role Phone Pcp-MD Melanie Lawson Primary Care Provider Unavailable Pcp-Renny, MD Singh Family Provider Unavailable Hospitalist, Model (IS ONLY) Emergency Provider Unavailable MD Pool Andersen Other Provider MD Cathleen Washington Attending Provider MD Louie Hart Other Provider MD Cyndi Sampson Other Provider TERESSA RUIZ Primary Care Provider TERESSA RUIZ Family Provider MD Prakash Saravia Emergency Provider MD Danis Hall Other Provider MD Sean Salmeron Attending Provider MD Faizan Leong Other Provider MD Hardik Han Other Provider MD Grant Ahmadi Other Provider MD Zach Rice Attending Provider MD Thomas Nath Other Provider MD Dillon Mcdonald Attending Provider Chief Complaint and Reason for Visit Chief Complaint CHEST PAIN LOWER LT ABD PAIN CHEST PAIN SYNCOPE AICD FIRING Reason for Visit Abdominal pain BPH (benign prostatic hyperp lasia) Chest pain Neck pain Tetralogy of Fallot 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 Essential hypertension Mixed hyperlipidemia Paroxysmal atrial fibrillati on Type 2 diabetes mellitus Atypical chest pain Chest pain 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 Essential hypertension Paroxysmal atrial fibrillati on Alcohol abuse Asthma Obstructive sleep apnea Pulmonary embolism Pulmonary nodule Readmission after hospitaliz ation within last 30 days Syncope Diabetes Afib Alcohol abuse Atypical chest pain Defibrillator discharge Pulmonary embolism Tetralogy of Fallot 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 Diabetes Hypertension Allergies, Adverse Reactions, Alerts Allergen Type Severity Reaction Last Updated Verified Status atorvastatin Allergy Unknown Hives December 10, Yes Ac tive 2021 8:56pm peas Allergy Unknown Hives (Green December 10, Yes Ac tive Peas) 2021 8:56pm bee venom protein Allergy Unknown December 10, Yes Active (honey bee) 2021 8:56pm Social History Smoking Status Status Start Date End Date Date of Observat ion Never smoked tobacco (finding) M arch 2019 6:38am Observation Status Observation Response Date of Response Living Situation Snf November 21, 2021 12 :13pm Living Situation Sober House December 03, 2021 9:23am Living Situation Residential Treatment November 28, 2021 10:44pm Facility Is Anyone Dependent on your No December 2:30am Care? Living Situation Private Home December 08, 2021 2:30am Lives With Other December 08, 2021 9:15am Additional Data Assigned Sex Male Family History [...] pacemaker Mixed hyperlipidemia Active Pulmonary nodule Active Atypical chest pain Active QT prolongation [...] 500 MG PO TWICE A DAY April nued WITH MEALS 2018 1:00am 11:30a m Fluticasone Disconti 1 PUFF INH DAILY April Propionate nu (Flovent 50 2018, Mcg Diskus) 1:00am 2018 60 PUFF/DISK 2:28am Disk Acetaminophen Disconti 650 MG PO EVERY 6 April nued HOURS 2018 1:00am 11:34a m Lorazepam Disconti 0.5 MG PO DAILY April nu2018 1:00am 11:30a m Omeprazole Disconti 20 MG PO DAILY April nu2018 1:00am 11:30a m Montelukast Disconti 10 MG [...] m Isosorbide Disconti 30 MG PO DAILY November Mononitrate nu2021 8th, 12:00am 2021 12:22p m Metoprolol Active 100 MG PO DAILY November Succinate 2021 12:00am Olanzapine Active 2.5 MG PO TWICE A DAY November 20, 2021 12:00am Aspirin Disconti 81 MG PO DAILY November 8th, 12:00am 2021 12:22p m Levothyroxine Active [...] Disconti 5 MG PO ONCE DAILY November AT BEDTIME 2021 12:00am 3:14pm Sennosides Disconti 8.6 MG PO TWICE A DAY November Augus t (Senna) 8.6 , mg Capsule 2021 2021 12:00am 3:28pm Multivitamin Active 1 TAB PO DAILY December 01, 2021 12:00am Metformin Active 500 MG PO TWICE A DAY December 01, 2021 12:00am Diphenhydrami Active 50 MG PO DAILY November 12:00am Magnesium Active 30 ML PO DAILY November, (Milk Of 2021 Magnesia) 400 12:00am mg/5 mL Suspension Bismuth Active 524 MG PO DAILY November do not exc eed Subsalicylate , 8 dose s in a (Kaopectate 2021 24 [...] 2021 10, 3:28pm 2021 11:43a m Rivaroxaban Active 0 .ROUTE .COMPLEX 1 Sept t catracho one-15 (Xarelto er 7th, mg tablet Dvt-Pe Treat 2021 twice d aily 30d Start) 15 12:00am for 21 days, mg (42)- 20 then one -20 mg (9) mg tablet Tablets,Dose once da meggan; Pack must take with meal/food Acetaminophen Active 650 MG PO DAILY Sept er 2021 12:00am Rivaroxaban Active 15 MG PO TWICE A DAY Sept Continue (Xarelto) 15 er 8th, until mg Tablet 202112/29/2021 12:00am Rivaroxaban Active 20 MG PO DAILY Sept Start from (Xarelto) 20 er 8th, 12/30 mg Tablet 2021 12:00am Nicotine Active 1 PATCH TRANSDE EVERY 24 15 RM HOURS er 2021 12:25pm Procedures Procedure Date Performed Status EKG ED [...] ED Electrocardiogram December 01, 2021 10:05am completed CT head/brain wo contrast December 07, 2021 [...] 1V portable December 10, 2021 8:54pm completed Relevant Diagnostic Tests and/or Laboratory Data Laboratory Results Test Date/Time Result Interpretation Reference Result Perfo rming Range Comment Site Add-On Test November Added test [facility] Request 2021 [address] [facility] 3:59pm [place] [id number] Add-On Test December Added test [facility] Request 2021 [address] [facility] 1:50am [place] [address]359 White Blood November 5.6 X10 4.5-11.0 [facility] Count 2021 3/uL [address] [facility] 8:20am [place] 57867 White Blood November 8.5 X10 4.5-11.0 [facility] Count 2021 3/uL [address] [facility] 9:50pm [place] 48778 White Blood December 7.2 X10 4.5-11.0 [facility] Count 2021 3/uL [address] [facility] 6:11am [place] 86849 White Blood December 6.2 X10 4.5-11.0 [facility] Count 2021 3/uL [address] [facility] 6:27am [place] [address]239 White Blood Brittany 8.3 X10 4.5-11.0 [facility] Count 2021 3/uL [address] [facility] 7:04am [place] 69137 Red Blood Count November 3.95 X10 4.00-5.50 [facility] 2021 6/uL [address] [facility] 8:20am [place] [address]10 Red Blood Count November 4.46 X10 4.00-5.50 [facility] 2021 6/uL [address] [facility] 9:50pm [place] 27870 Red Blood Count December 4.53 X10 4.00-5.50 [facility] 2021 6/uL [address] [facility] 6:11am [place] 18815 Red Blood Count December 4.02 X10 4.00-5.50 [facility] 2021 6/uL [address] [facility] 6:27am [place] [address]113 Red Blood Count December 4.49 X10 4.00-5.50 [facility] 2021 6/uL [address] [facility] 7:04am [place] [address]100 Hemoglobin November 12.0 g/dl 12.0-17.0 [facility] 2021 [address] [facility] 8:20am [place] [address]30 Hemoglobin November 13.8 g/dl 12.0-17.0 [facility] 2021 [address] [facility] 9:50pm [place] 65369 Hemoglobin Brittany 13.7 g/dl 12.0-17.0 [facility] [address] [facility] 6:11am [place] 22552 Hemoglobin Brittany 12.5 g/dl 12.0-17.0 [facility] 2021 [address] [facility] 6:27am [place] [address]6542 Hemoglobin Brittany 13.3 g/dl 12.0-17.0 [facility] [address] [facility] 7:04am [place] [address]3045 Hematocrit November 36.9 % 35.0-50.0 [facility] [address] 8:20am [place] [address]471 Hematocrit November 41.4 % 35.0-50.0 [facility] [address] 9:50pm [place] A [address]302 Hematocrit December 41.9 % 35.0-50.0 [facility] [address] 6:11am [place] [address]134 Hematocrit December 37.3 % 35.0-50.0 [facility] [address] 6:27am [place] A [address]67 Hematocrit December 40.8 % 35.0-50.0 [facility] [address] 7:04am [place] A 12637 Mean November 93.4 fl 80.0-100.0 [facility] [address] [facility] [address] Volume 8:20am [place] A [address] Mean November 92.8 fl 80.0-100.0 [facility] [address] [facility] [address] Volume 9:50pm [place] A 48627 Mean December 92.5 fl 80.0-100.0 [facility] [address] [facility] [address] Volume 6:11am [place] 03535 Mean December 92.8 fl 80.0-100.0 [facility] [address] Volume 6:27am [place] A 79484 Mean December 90.9 fl 80.0-100.0 [facility] [employer] [address] Volume 7:04am [place] A 71751 Mean November 30.4 pg 27.0-34.0 [facility] [address] Hemoglobin 8:20[place] [address] Mean November 30.9 pg 27.0-34.0 [facility] [address] Hemoglobin 9:50pm [facility] [address] Mean December 30.2 pg 27.0-34.0 [facility] [address] Hemoglobin 6:11am [facility] 48064 Mean December 31.1 pg 27.0-34.0 [facility] [employer] [address] Hemoglobin 6:27am [facility] 71576 Mean December 29.6 pg 27.0-34.0 [facility] [address] Hemoglobin 7:04am [facility] 04672 Mean November 32.5 g/dl 31.0-36.0 [facility] [address] Hemoglobin 8:20am [facility] 73579 Concent Mean November 33.3 g/dl 31.0-36.0 [facility] [address] Hemoglobin 9:50pm [facility] 33502 Concent Mean December 32.7 g/dl 31.0-36.0 [facility] [address] Hemoglobin 6:11am [facility] 32946 Concent Mean December 33.5 g/dl 31.0-36.0 [facility] [address] Hemoglobin 6:27am [facility] 13188 Concent Mean December 32.6 g/dl 31.0-36.0 [facility] [address] Hemoglobin 7:04am [facility] 89388 Concent Red Cell November 12.6 % 11.5-15.0 [facility] Distribution [address] Width 8:20am [facility] [address] Red Cell November 12.5 % 11.5-15.0 [facility] Distribution [address] Width 9:50pm [place] A 58864 Red Cell December 12.5 % 11.5-15.0 [facility] Distribution [address] Width 6:11am [place] 13067 Red Cell December 12.3 % 11.5-15.0 [facility] Distribution [address] Width 6:27am [place] 05153 Red Cell December 12.4 % 11.5-15.0 [facility] Distribution [address] Width 7:04am [place] [address]6623 Platelet Count November 90 X10 3/uL 150-400 [facility] [address] 8:20am [place] [address] Platelet Count November 103 X10 150-400 [facility] 2021 3/uL [address] 9:50pm [place] 11861 Platelet Count December 103 X10 150-400 [facility] 2021 3/uL with previous [address] 6:11am results [place] A [address]8316 Platelet Count December 90 X10 3/uL 150-400 [facility] 2021 with previous [address] 6:27am results [place] A 00736 Platelet Count December 101 X10 150-400 [facility] 2021 3/uL [address] 7:04am [place] 43318 Immature November 1.1 % [facility] Granulocyte % [address] (Auto) 8:20am [place] [address]62 Immature [place] 1.5 % [facility] Granulocyte % [address] (Auto) 9:50pm [place] 61124 Immature Brittany 1.9 % [facility] Granulocyte % [address] (Auto) 6:11am [place] 52399 Immature [place]any 3.6 % [facility] Granulocyte % [address] (Auto) 9:28pm [place] 52206 Neutrophils (%) November 62.7 % [facility] (Auto) [address] 8:20am [place] 63032 Neutrophils (%) November 66.2 % [facility] (Auto) [address] 9:50pm [place] 10171 Neutrophils (%) December 61.5 % [facility] (Auto) [address] 6:11am [place] A 73660 Neutrophils (%) December Not [facility] (Auto) 2021 Reportable [address] 6:27am [place] A 31495 Neutrophils (%) December Not [facility] (Auto) 2021 Reportable [address] [facility] [address] 7:04am [place] A 32019 Lymphocytes (%) November 18.8 % [facility] (Auto) [address] 8:20am [place] 43391 Lymphocytes (%) November 18.0 % [facility] (Auto) [address] 9:50pm [place] 03073 Lymphocytes (%) December 19.3 % [facility] (Auto) [address] 6:11am [place] A 61764 Lymphocytes (%) December Not [facility] (Auto) 2021 Reportable [address] 6:27am [place] A 48729 Lymphocytes (%) December Not [facility] (Auto) 2021 Reportable [address] [facility] [address] 7:04am [place] A 24672 Monocytes (%) November 9.8 % [facility] (Auto) [address] 8:20am [place] A 15450 Monocytes (%) November 8.7 % [facility] (Auto) [address] 9:50pm [place] A 26016 Monocytes (%) December 10.0 % [facility] (Auto) [address] 6:11am [place] A 37709 Monocytes (%) December Not [facility] (Auto) 2021 Reportable [address] 6:27am [place] A 52817 Monocytes (%) December Not [facility] (Auto) 2021 Reportable [address] [facility] [address] 7:04am [place] 35607 Eosinophils (%) November 6.2 % [facility] (Auto) [address] 8:20am [place] 22061 Eosinophils (%) November 4.2 % [facility] (Auto) [address] 9:50pm [place] 62438 Eosinophils (%) Brittany 6.0 % [facility] (Auto) [address] 6:11am [place] A 69159 Eosinophils (%) December Not [facility] (Auto) 2021 Reportable [address] 6:27am [place] A 10833 Eosinophils (%) December Not [facility] (Auto) 2021 Reportable [address] [facility] [address] 7:04am [place] A 63172 Basophils (%) November 1.4 % [facility] (Auto) [address] 8:20am [place] A 07673 Basophils (%) November 1.4 % [facility] (Auto) [address] 9:50pm [place] A 85283 Basophils (%) December 1.3 % [facility] (Auto) [address] 6:11am [place] A 24009 Basophils (%) December Not [facility] (Auto) 2021 Reportable [address] 6:27am [place] 04666 Basophils (%) December Not [facility] (Auto) 2021 Report[address] 7:04am [place] 45396 Immature November 0.06 X10 0.00-0.09 [facility] Granulocyte # 2021 3/uL [address] (Auto) 8:20am [place] 61360 Immature [place] 0.13 X10 0.00-0.09 [facility] Granulocyte # 2021 3/uL [address] (Auto) 9:50pm [place] 67134 Immature Brittany 0.14 X10 0.00-0.09 [facility] Granulocyte # 2021 3/uL [address] (Auto) 6:11am [place] 05536 Immature Brittany 0.28 X10 0.00-0.09 [facility] Granulocyte # 2021 3/uL [address] (Auto) 9:28pm [place] A 10122 Neutrophils # [place] 3.5 X10 1.5-7.8 [facility] (Auto) 2021 3/uL [address] 8:20am [place] A 23302 Neutrophils # [place] 5.6 X10 1.5-7.8 [facility] (Auto) 2021 3/uL [address] 9:50pm [place] A 63119 Neutrophils # Brittany 4.4 X10 1.5-7.8 [facility] (Auto) 2021 3/uL [address] 6:11am [place] A 39640 Neutrophils # Brittany Not [facility] (Auto) [address] [place] [address] 6:27am [place] A 13019 Neutrophils # Brittany Not [facility] (Auto) [address] [place] [address] Street 7:04am [place] A 38087 Lymphocytes # [place] 1.1 X10 1.0-4.8 [facility] (Auto) 2021 3/uL [address] 8:20am [place] A 18858 Lymphocytes # [place] 1.5 X10 1.0-4.8 [facility] (Auto) 2021 3/uL [address] 9:50pm [place] A 29615 Lymphocytes # Brittany 1.4 X10 1.0-4.8 [facility] (Auto) 2021 3/uL [address] [facility] 6:11am [place] A 16074 Lymphocytes # Brittany Not [facility] (Auto) 2021 Reportable [address] [facility] 6:27am [place] A 02637 Lymphocytes # Brittany Not [facility] (Auto) [address] [place] [address] 7:04am [place] A 12834 Monocytes # [place] 0.6 X10 0.0-0.8 [facility] (Auto) 2021 3/uL [address] [facility] 8:20am [place] A 44831 Monocytes # [place] 0.7 X10 0.0-0.8 [facility] (Auto) 2021 3/uL [address] [facility] 9:50pm [place] A 98274 Monocytes # Brittany 0.7 X10 0.0-0.8 [facility] (Auto) 2021 3/uL [address] [facility] 6:11am [place] A 11159 Monocytes # Brittany 0.7 X10 0.0-0.8 [facility] (Auto) 2021 3/uL [address] [facility] 9:28pm [place] A 53723 Eosinophils # [place] 0.4 X10 0.0-0.5 [facility] (Auto) 2021 3/uL [address] [facility] 8:20am [place] A 65721 Eosinophils # [place] 0.4 X10 0.0-0.5 [facility] (Auto) 2021 3/uL [address] [facility] 9:50pm [place] A 28626 Eosinophils # Brittany 0.4 X10 0.0-0.5 [facility] (Auto) 2021 3/uL [address] 6:11am [place] A 54028 Eosinophils # Brittany 0.6 X10 0.0-0.5 [facility] (Auto) 2021 3/uL [address] [facility] 9:28pm [place] A 14018 Basophils # [place] 0.1 X10 0.0-0.2 [facility] (Auto) 2021 3/uL [address] 8:20am [place] A 03344 Basophils # [place] 0.1 X10 0.0-0.2 [facility] (Auto) 2021 3/uL [address] 9:50pm [place] A 72621 Basophils # Brittany 0.1 X10 0.0-0.2 [facility] (Auto) 2021 3/uL [address] 6:11am [place] A 68913 Basophils # Brittany Not [facility] (Auto) 2021 Reportable [address] 6:27am [place] A 38552 Basophils # Brittany Not [facility] (Auto) 2021 Reportable [address] [facility] [address] 7:04am [place] 41498 Neutrophils % Brittany 59 % [facility] (Manual) [address] 6:27am [place] A 89933 Neutrophils % Brittany 51 % [facility] (Manual) [address] 7:04am [place] 89928 Band Brittany 1 % 0-6 [facility] Neutrophils % [address] (Manual) 6:27am [place] A 39227 Band Brittany 2 % 0-6 [facility] Neutrophils % [address] (Manual) 7:04am [place] A 88310 Lymphocytes % Brittany 19 % [facility] (Manual) [address] 6:27am [place] A 13807 Lymphocytes % Brittany 28 % [facility] (Manual) [address] 7:04am [place] A 74572 Reactive Brittany 1 % [facility] Lymphocytes % [address] (Manual) 6:27am [place] A 46122 Reactive Britt[place] 2 % [facility] Lymphocytes % [address] (Manual) 7:04am [place] A 30762 Monocytes % Brittany 8 % [facility] (Manual) 2021 [facility] 6:27am [place] A 65135 Monocytes % Brittany 13 % [facility] (Manual) 2021 [facility] 7:04am [place] A 19521 Eosinophils % Brittany 9 % [facility] (Manual) 2021 [facility] 6:27am [place] 72082 Eosinophils % Brittany 4 % [facility] (Manual) 2021 [facility] 7:04am [place] A 86522 Basophils % Brittany 1 % [facility] (Manual) 2021 [facility] 8:48pm [place] A 26498 Metamyelocytes Brittany 3 % 0-1 [facility] % (manual) 2021 [facility] 6:27am [place] A 15877 Myelocytes % Brittany 2 % 0-0 [facility] (Manual) 2021 [address] [facility] 8:48pm [place] A 75068 Neutrophils # Brittany 3.7 X10 1.5-7.8 [facility] (Manual) 2021 3/uL [address] [facility] 6:27am [place] A 21974 Neutrophils # Brittany 4.4 X10 1.5-7.8 [facility] (Manual) 2021 3/uL [address] [facility] 7:04am [place] A 07031 Lymphocytes # Brittany 1.2 X10 1.0-4.8 [facility] (Manual) 2021 3/uL [address] [facility] 6:27am [place] A 58251 Lymphocytes # Brittany 2.5 X10 1.0-4.8 [facility] (Manual) 2021 3/uL [address] [facility] 7:04am [place] A 47587 Monocytes # Brittany 0.5 X10 0.0-0.8 [facility] (Manual) 2021 3/uL [address] [facility] 6:27am [place] 13207 Monocytes # Brittany 1.1 X10 0.0-0.8 [facility] (Manual) 2021 3/uL [address] [facility] 7:04am [place] A 27738 Eosinophils # Brittany 0.6 X10 0.0-0.5 [facility] (Manual) 2021 3/uL [address] [facility] 6:27am [place] A 86304 Eosinophils # Brittany 0.3 X10 0.0-0.5 [facility] (Manual) 2021 3/uL [address] [facility] 7:04am [place] A 16030 Basophils # Brittany 0.1 X10 0.0-0.2 [facility] (Manual) 2021 3/uL [address] [facility] 8:48pm [place] A 23800 Platelet Brittany Decreased [facility] Estimate 2021 [address] [facility] 6:27am [place] A 48407 Platelet Brittany Decreased [facility] Estimate 2021 [address] [facility] 7:04am [place] A 70321 Red Blood Cell Brittany Normal [facility] Morphology [address] [facility] 8:53am [place] A 02458 Red Blood Cell Brittany Normal [facility] Morphology 2021 morphology 235 [facility] 7:04am [place] A 92630 Polychromasia December Slight [facility] 2021 [address] [facility] 6:27am [place] A 60380 Hypochromasia December Slight [facility] 2021 [address] [facility] 6:27am [place] A 60872 Ovalocytes December Slight [facility] 2021 [address] [facility] 6:27am [place] A 21673 Hemoglobin A1c November 6.6 4.3-5.9 [facility] 2021 [address] [facility] 6:10am [place] 49489 Estimated November 143 mg/dl [facility] Average Glucose 2021 [address] [facility] (eAG) 6:10am [place] 71621 Nucleated Red November 0.0 /100 0.0-0.0 [facility] Blood Cells % 2021 WBC [address] 8:20am [place] [address] Nucleated Red [place] 0.0 /100 0.0-0.0 [facility] Blood Cells % 2021 WBC [address] 9:50pm [place] [address] Nucleated Red Brittany 0.0 /100 0.0-0.0 [facility] Blood Cells % 2021 WBC [address] 6:11am [place] [address] Nucleated Red Brittany 0.0 /100 0.0-0.0 [facility] Blood Cells % 2021 WBC [address] 6:27am [place] [address] Nucleated Red Brittany 0.0 /100 0.0-0.0 [facility] Blood Cells % 2021 WBC [address] [facility] 7:04am [place] [address]52 Prothrombin November 11.1 9.3-12.1 [facility] Time 2021 Seconds 235 [facility] 5:31am [place] [address] Prothromb Time November 1.0 0.9-1.2 Reference Interval is for non-anticoagulated patients. [facility] 2021 Suggested I NR Therapeutic Range for Vitamin K antogonist therapy: [address] [place] [address] Ratio 5:31am LEVELS OF [place] [address]01 THERAPY INDICATIONS TARGET INR RANGE Standard Dose Venous Thrombosis, 2.0 - 3.0 Atrial Fibrillation , Pulmonary Embolism. High Dose Valvular H eart Disease, 2.5 - 3.5 Mechanical Heart, Intracardiac Thromb osis. Urine Color November Yellow Yellow [facility] 2021 [facility] 10:06pm [place] A [address]99 Urine Color December Yellow Yellow [facility] 2021 235 [facility] 12:23am [place] 24994 Urine Clarity November Clear Clear [facility] 2021 235 [facility] 10:06pm [place] A 16514 Urine Clarity December Clear Clear [facility] [address] 12:23am [place] 86987 Urine pH [place] 5.5 5.0-8.0 [facility] 2021 235 [facility] 10:06pm [place] 43847 Urine pH Brittany 5.5 5.0-8.0 [facility] 2021 235 [facility] 12:23am [place] 06787 Urine Specific [place] 1.013 1.005-1.03 [facility] [place] 2021 [address] 10:06pm [place] [address] Urine Specific Brittany 1.007 1.005-1.03 [facility] [place] 2021 0 235 [facility] 12:23am [place] [address]155 Urine Blood November Negative Negative [facility] 2021 mg/dL 235 [facility] 10:06pm [place] 29452 Urine Blood December Negative Negative [facility] 2021 mg/dL 235 [facility] 12:23am [place] 41940 Urine Protein November Negative Negative [facility] 2021 mg/dL 235 [facility] 10:06pm [place] 82423 Urine Protein December Negative Negative [facility] 2021 mg/dL 235 [facility] 12:23am [place] A 46872 Urine Glucose November Negative Negative [facility] () 2021 mg/dl 235 [facility] 10:06pm [place] 64279 Urine Glucose December Negative Negative [facility] (UA) 2021 mg/dl 235 [facility] 12:23am [place] 02904 Urine Ketones November Negative Negative [facility] 2021 mg/dL 235 [facility] 10:06pm [place] [address]1320 Urine Ketones December Negative Negative [facility] 2021 mg/dL 235 [facility] 12:23am [place] 37655 Urine Nitrate November Negative Negative [facility] 2021 235 [facility] 10:06pm [place] 71427 Urine Nitrate December Negative Negative [facility] 2021 235 [facility] 12:23am [place] 04891 Urine Bilirubin November Negative Negative [facility] 2021 mg/dL 235 [facility] 10:06pm [place] 44142 Urine Bilirubin December Negative Negative [facility] 2021 mg/dL 235 [facility] 12:23am [place] 74935 Urine November 0.2 E.U./dL Normal [facility] Urobilinogen 2021 235 No [address] [facility] 10:06pm [place] 76166 Urine December 0.2 E.U./dL Normal [facility]robilinogen 2021 235 [facility] 12:23am [place] 83819 Urine Leukocyte November Negative Negative [facility] Esterase 2021 mg/dL 235 [facility] 10:06pm [place] A 75759 Urine Leukocyte December Negative Negative [facility] Esterase 2021 mg/dL 235 [facility] 12:23am [place] [address]1312 Sodium Level November 141 mmol/L 137-146 [facility] 2021 235 [facility] 6:10am [place] 82756 Sodium Level November 137 mmol/L 137-146 [facility] 2021 235 [facility] 9:50pm [place] 73066 Sodium Level December 138 mmol/L 137-146 [facility] 2021 235 [facility] 6:11am [place] 40327 Sodium Level December 143 mmol/L 137-146 [facility] 2021 235 [facility] 6:27am [place] 46226 Sodium Level December 141 mmol/L 137-146 [facility] 2021 235 [facility] 7:04am [place] 89486 Potassium Level November 4.2 mmol/L 3.5-5.3 [facility] 2021 235 [facility] 6:10am [place] 32558 Potassium Level November 4.7 mmol/L 3.5-5.3 Specimen [facility] 2021 [address]olyzed, [address] 9:50pm results [place] 22142 affected Potassium Level December 4.6 mmol/L 3.5-5.3 Specimen [facility] 2021 hemolyzed, 235 [facility] 6:11am results [place] 40827 affected Potassium Level December 4.5 mmol/L 3.5-5.3 [facility] [address] 6:27am [place] [address]262 Potassium Level December 4.3 mmol/L 3.5-5.3 [facility] [address] 7:04am [place] 65253 Chloride Level November 102 mmol/L 98-107 [facility] [address] 6:10am [place] 83089 Chloride Level November 99 mmol/L 98-107 [facility] 2021 235 [facility] 9:50pm [place] 84231 Chloride Level December 99 mmol/L 98-107 [facility] [address] 6:11am [place] 27125 Chloride Level December 103 mmol/L 98-107 [facility] [address] 6:27am [place] 97993 Chloride Level December 103 mmol/L 98-107 [facility] [address] 7:04am [place] 03562 Carbon Dioxide November 26 mmol/L - [facility] [address] 6:10am [place] A 24448 Carbon Dioxide November 27 mmol/L -32 [facility] Level [address] 9:50pm [place] 01902 Carbon Dioxide December 23 mmol/L -32 [facility] Level [address] 6:11am [place] A 69319 Carbon Dioxide December 29 mmol/L - [facility] Level [address] 6:27am [place] 15273 Carbon Dioxide December 29 mmol/L -32 [facility] Level 2021 235 [facility] 7:04am [place] 71881 Anion Gap November 13 mmol/L 08-15 [facility] 2021 235 [facility] 6:10am [place] 49048 Anion Gap November 11 mmol/L 08-15 [facility] [address] 9:50pm [place] 09890 Anion Gap December 16 mmol/L 08-15 [facility] 2021 235 [facility] 6:11am [place] 26845 Anion Gap December 11 mmol/L 08-15 [facility] 2021 235 [facility] 6:27am [place] 02383 Anion Gap December 9 mmol/L 08-15 [facility] 2021 235 [facility] 7:04am [place] 24164 Blood Urea November 16 mg/dl 08-25 [facility] Nitrogen 2021 235 [facility] 6:10am [place] 61618 Blood Urea November 22 mg/dl 08-25 [facility] Nitrogen 2021 235 [facility] 9:50pm [place] 85726 Blood Urea December 31 mg/dl 08-25 [facility] Nitrogen 2021 235 [facility] 6:11am [place] 85575 Blood Urea December 23 mg/dl 08-25 [facility] Nitrogen 2021 235 [facility] 6:27am [place] 59323 Blood Urea Brittany 22 mg/dl 08-25 [facility] Nitrogen [address] 7:04am [place] 42763 Creatinine November 1.1 mg/dL 0.6-1.4 [facility] 2021 235 [facility] 6:10am [place] 51711 Creatinine November 1.3 mg/dL 0.6-1.4 [facility] 2021 235 [facility] 9:50pm [place] 56396 Creatinine December 1.3 mg/dL 0.6-1.4 [facility] [address] 6:11am [place] [address] Creatinine December 1.2 mg/dL 0.6-1.4 [facility] [address] 6:27am [place] A [address] Creatinine December 1.1 mg/dL 0.6-1.4 [facility] [address] 7:04am [place] A [address] Estimated November 74.7 ml/min This value [facility] Creatinine 2021 is calculated [address] Clearance 6:10am [place] [address] Gault Equation using ideal body weight. This result is dependent on an accurate patient height and weight which is obtained from patients medical record. Cockmicheletoft, D.W. and M.H. Gault. Prediction of creatinine clearance from serum creatinine. Nephron. 1975. 16(1):31-41. Estimated November 74.4 ml/min This value [facility] Creatinine 2021 is calculated [address] Clearance 9:50pm [place] [address] Gault Equation using ideal body weight. This result is dependent on an accurate patient height and weight which is obtained from patients medical record. Cockmicheletoft, D.W. and M.H. Gault. Prediction of creatinine clearance from serum creatinine. Nephron. 1975. 16(1):31-41. Estimated December 75.2 ml/min This value [facility] Creatinine 2021 is calculated [address] [facility] [address] Clearance 6:11am [place] [address] Gault Equation using ideal body weight. This result is dependent on an accurate patient height and weight which is obtained from patients medical record. Cockcroft, D.W. and M.H. Gault. Prediction of creatinine clearance from serum creatinine. Nephron. 1975. 16(1):31-41. Estimated December 81.9 ml/min This value [facility] Creatinine 2021 is calculated [address] Clearance 6:27am [place] [address] Gault Equation using ideal body weight. This result is dependent on an accurate patient height and weight which is obtained from patients medical record. Joey Guzman. and M.H. Robinson. Prediction of creatinine clearance from serum creatinine. Nephron. 1976. 16(1):31-41. Estimated Brittany [employer]cover[employer]anger Unable to [facility] Creatinine [address] Clearance 7:04am CRCL,Ht [place] [address] and/or Wt missing Estimated GFR November 85 >60 [facility] ( [address] Vincentian) 6:10am [place] A 91659 Estimated GFR November 69 >60 [facility] ( [address] Vincentian) 9:50pm [place] 84129 Estimated GFR December 69 >60 [facility] ( [address] Vincentian) 6:11am [place] 13962 Estimated GFR December 76 >60 [facility] ( [address] Vincentian) 6:27am [place] 75966 Estimated GFR December 85 >60 [facility] ( [address] Vincent[place]) 7:04am [place] 87900 Estimated GFR November 73 >60 [facility] (Non- [address] [place] 6:10am [place] 57672 Estimated GFR November 60 >60 [facility] (Non- [address] [place] 9:50pm [place] 82516 Estimated GFR December 60 >60 [facility] (Non- [address] [place] 6:11am [place] 52320 Estimated GFR December 66 >60 [facility] (Non- [address] [place] 6:27am [place] 73519 Estimated GFR December 73 >60 [facility] (Non- [address] [place] 7:04am [place] 32500 BUN/Creatinine November 14.5 10.0-20.0 [facility] Ratio 2021 235 [facility] 6:10am [place] 93569 BUN/Creatinine November 16.9 10.0-20.0 [facility] Ratio 2021 235 [facility] 9:50pm [place] 81915 BUN/Creatinine December 23.8 10.0-20.0 [facility] Ratio 2021 235 [facility] 6:11am [place] 14615 BUN/Creatinine December 19.2 10.0-20.0 [facility] Ratio 2021 235 [facility] 6:27am [place] 52749 BUN/Creatinine December 20.0 10.0-20.0 [facility] Ratio 2021 235 [facility] 7:04am [place] 53321 Glucose Level November 106 mg/dL 70-100 [facility] 2021 235 [facility] 6:10am [place] 67749 Glucose Level November 226 mg/dL 70-100 [facility] 2021 235 [facility] 9:50pm [place] 33236 Glucose Level December 145 mg/dL 70-100 [facility] 2021 235 [facility] 6:11am [place] 77684 Glucose Level December 103 mg/dL 70-100 [facility] 2021 235 [facility] 6:27am [place] 40085 Glucose Level December 131 mg/dL 70-100 [facility] 2021 235 [facility] 7:04am [place] 06214 Calcium Level November 8.6 mg/dl 8.6-10.3 [facility] 2021 235 [facility] 6:10am [place] 17018 Calcium Level November 8.8 mg/dl 8.6-10.3 [facility] 2021 235 [facility] 9:50pm [place] 88618 Calcium Level December 8.4 mg/dl 8.6-10.3 [facility] 2021 [facility] 6:11am [place] 18429 Calcium Level Brittany 8.5 mg/dl 8.6-10.3 [facility] 2021 [facility] 6:27am [place] 01023 Calcium Level Brittany 8.7 mg/dl 8.6-10.3 [facility] 2021 [facility] 7:04am [place] 63735 Phosphorus Brittany 4.6 mg/dL 2.5-4.5 [facility] Level 2021 [facility] 6:27am [place] 61122 Magnesium Level Brittany 1.9 mg/dL 1.8-2.5 [facility] 2021 [facility] 6:27am [place] 13213 Magnesium Level Brittany 2.0 mg/dL 1.8-2.5 [facility] 2021 [facility] 9:28pm [place] 35629 Total Bilirubin [place] 0.3 mg/dl <1.1 [facility] 2021 [facility] 9:50pm [place] 01876 Total Bilirubin [place] 0.4 mg/dl <1.1 [facility] 2021 [facility] 9:49am [place] 68961 Total Bilirubin Brittany 0.4 mg/dl <1.1 [facility] 2021 [facility] 6:27am [place] A 25285 Aspartate Amino [place] 16 U/L 15-41 [facility] Transf 2021 [facility] (AST/SGOT) 9:50pm [place] [address] Aspartate Amino [place] 17 U/L 15-41 [facility] Transf 2021 [facility] (AST/SGOT) 9:49am [place] 20441 Aspartate Amino Brittany 14 U/L 15-41 [facility] Transf 2021 [facility] (AST/SGOT) 6:27am [place] [address]23[address] Alanine [place] 18 U/L 14-63 [facility] Aminotransferas 2021 235 [facility] e (ALT/SGPT) 9:[place] [address] Alanine November 20 U/L [facility] Aminotransferas 2021 235 [facility] e (ALT/SGPT) 9:49[place] [address] Alanine December 17 U/L [facility] Aminotransferas 2021 235 [facility] e (ALT/SGPT) 6:27am [place] [address] Troponin T High November 13 ng/L <13 Normal range: Females <9 ng/L [facility] Sensitivity 2021 Males <14 ng/L 2 35 [facility] 12:10am [place] 45839 Values greater than or equal to 52 [...] ng/L <13 Normal range: Females <9 ng/L [facility] Sensitivity 2021 Males <14 ng/L 2 35 [facility] 1:09pm [place] 21932 Values greater than or equal to 52 [...] ng/L <13 Normal range: Females <9 ng/L [facility] Sensitivity 2021 Males <14 ng/L 23 5 [facility] 12:05am [place] 99503 Values greater than or equal to 52 [...] the inpatient setting). Troponin T High December 12 ng/L <13 Normal range: Females <9 ng/L [facility] Sensitivity 2021 Males <14 ng/L 2 35 [facility] 7:04am [place] 48245 Values greater than or equal to 52 [...] setting). Total Protein November 6.7 g/dL 6.4-8.3 [facility] 2021 [facility] 9:50pm [place] 99145 Total Protein November 6.7 g/dL 6.4-8.3 [facility] 2021 [facility] 9:49am [place] 40118 Total Protein December 6.2 g/dL 6.4-8.3 [facility] 2021 [facility] 6:27am [place] 77450 Albumin November 4.0 g/dl 4.0-5.0 [facility] 2021 [facility] 9:50pm [place] 72550 Albumin November 4.3 g/dl 4.0-5.0 [facility] 2021 [facility] 9:49am [place] 18442 Albumin December 3.7 g/dl 4.0-5.0 [facility] 2021 [facility] 6:27am [place] 68438 Albumin/Globuli November 1.5 1.0-2.6 [facility] n Ratio 2021 [facility] 9:50pm [place] 94846 Albumin/Globuli [place] 1.8 1.0-2.6 [facility] n Ratio [address] 9:49am [place] 48291 Albumin/Globuli December 1.5 1.0-2.6 [facility] n Ratio 2021 235 [facility] 6:27am [place] 77078 Alkaline [place] 93 U/L 40-129 [facility] Phosphatase 2021 [address] [facility] [address] 9:50pm [place] 56203 Alkaline November 84 U/L 40-129 [facility] Phosphatase 2021 [address] [facility] [address] 9:49am [place] 24269 Alkaline Brittany 73 U/L 40-129 [facility] 6:27[facility] [place] 369[address] Lipase November 36 U/L 13-60 [facility] 2021 235 [facility] 9:50pm [place] 81393 Lipase December 30 U/L 13-60 [facility] 2021 235 [facility] 8:48pm [place] 95059 Prostate November 0.63 ng/ml <3.09 [facility] Clinical Labs Specific 2021 [address] [address] [facility] [address] Antigen 12:10am [facility] [address] Thyroid November 4.83 uIU/mL 0.34-5.60 [facility] Stimulating 2021 235 [address] [facility] Hormone (TSH) 8:20[place] [address] Thyroid December 3.86 uIU/mL 0.34-5.60 [facility] Stimulating 2021 235 [address] [facility] Hormone (TSH) 9:28[place] [address] Bedside Glucose November 165 mg/dl 70-100 NOTE: Any discrepancy between finger stick glucose result [facility] 2021 and patient's clin ical presentation should be 235 [facility] 11:31am [place] [address] Bedside Glucose December 181 mg/dl 70-100 NOTE: Any discrepancy between finger stick glucose result [facility] 2021 and patient's clini joanne presentation should be 235 [facility] 11:40am confirmed by the [place]. [facility] Bedside Glucose December 121 mg/dl 70-100 NOTE: Any discrepancy between finger stick glucose result [facility] 2021 and patient's clini joanne presentation should be 235 [facility] 10:57am confirmed by the [place]. [facility] Bedside Glucose December 129 mg/dl 70-100 NOTE: Any discrepancy between finger stick glucose result [facility] 2021 and patient's clin ical presentation should be 235 [facility] 12:42pm confirmed by the [place]. [facility] Microbiology Results Procedure Source Result Collection Result Result Performin g Date/Time Date/Time Comment Site SARS-CoV-2, Nares, Both November 23, [facility] Influenza & Left & 2021 1:56pm [address] RSV (PCR) Right [place] [address] SARS-CoV-2, Nares, Both December [facility] Influenza & Left & [address] RSV (PCR) Right 2:18am [place] [address] Diagnostic Imaging Reports Report Dictated Date/Time Dictated By Status Radiology Report November 20, 2021 9:08am Deniz Silva MD comp [facility] [address] [place] [address] Patient Name: Joaquín Barrientos [facility] rd#: [id number] Address: [address] [place] [address] City/State/Zip: [place] [address]: Laura Washington MD Insurance: [facility] /Age/Sex: 1960/61/M Self Pay Admit/Reg Date: 11/20/[address]: Haris Bradshaw DO Location: ED[facility]/XFR-7 PCP: PcpMd MELANIE Johnson Date of Service: 11/20/21 Order (s): XR chest 2V CPT Code: 76675 Report Number: [id number] Reason for Exam: Chest Pain EXAM: [...] Silva MD 11/20/21 0913 TD/TT: 11/20/21 0908Tech: [facility] cc: TASHA; TIA; CRYSTAL Lee MD; Cathleen Washington MD; Vince Bradshaw DO Report Dictated Date/Time Dictated By Status Electrocardiogram November 20, 2021 Warren Rivas MD completed [address] [id number] Patient Name: Joaquín Barrientos [facility] rd#: [id number] Address: [address] [place] [address] City/State/Zip: [place] [address]: Laura Washington MD Insurance: [facility] /Age/Sex: 1960/61/M Self Pay Admit/Reg Date: 11/20/[address]: Haris Bradshaw DO [facility] PCP: Md MELANIE Lee Date of Service: 11/20/21 Order (s): EKG ED Electrocardiogram CPT Code: 79249 Report Number: [id number] Reason for Exam: Chest Pain SINUS RHYTHM RIGHT BUNDLE BRANCH BLOCK LEFT POSTERIOR FASCICULAR BLOCK Dictated By: Warren Rivas MD 11/20/21 Signed By: Warren Rivas MD 11/20/21 1442 TD/TT: 11/20/21 1441Tech: cc: TASHA; CRYSTAL Lee MD; Titus Bradshaw DO Report Dictated Date/Time Dictated By Status Radiology Report November 20, 2021 1:35pm Titus Martinez MD compl eted [facility] [address] [place] [address] Patient Name: Joaquín Barrientos rd#: [id number] Address: [address] [place] [address] City/State/Zip: [place] [address]: Laura Washington MD Insurance: [facility] /Age/Sex: 1960/61/M Self Pay Admit/Reg Date: 11/20/[address]: Caio Washington MD; Michael Shannon [facility] Location: ED[facility]/GSXFR-7 PCP: Md MELANIE Lee Date of Service: 11/20/21 Order (s): CT abd pelvis wo/w contrast; CT cervical spine wo contrast CPT Code: 74307; 73233 Report Number: [id number] Reason for Exam: hx cervical fracture in past. neck pain PROCEDURE: CERVICAL SPINE CT HISTORY: Neck pain. History of cervical fracture. COMPARISON: None TECHNIQUE: Noncontrast CT of the cervic al spine.Multiplanar imaging was reviewed. CT technique involves the adju stment of the mA and/or kV according to patient size. MIPS Measure #361 Patient Exposure to Ionizing Radiation was submitted to [employer] (ACR) [place] onal Data [...] to [employer] (A[employer]) [place] [employer] Data [employer] (NRDR) and MIPS Measure [...] Martinez MD 11/20/21 1452 TD/TT: 11/20/21 1335Tech: [email or web address] cc: TIA; DEANNE; SOREN* Md Jesus MD; Cathleen Washington MD; Ceferino Shannon PAC Report Dictated Date/Time Dictated By Status Radiology Report November 21, 2021 4:29pm Fer Lopez MD com [address] [id number] Patient Name: Joaquín Barrientos [facility] rd#: [id number] Address: [address] [place] [address] 85 City/State/Zip: [place] [address]: Laura Washington MD Insurance: [facility] /Age/Sex: 1960/61/M Self Pay Admit/Reg Date: 11/21/[address]: Caio Washington MD Location: 3A./AE331-J PCP: Md MELANIE Lee Date of Service: 11/21/21 Order (s): US bladder CPT Code: 99657 Report Number: [id number] Reason for Exam: possible tumor per [...] 11/21/21 1629Tech: [id number] cc: HRSSPETE; PCPNO* Md Jesus MD; Cathleen Washington MD Report Dictated Date/Time Dictated By Status Radiology Report November 22, 2021 5:27pm Eduar Rm MD [address] [id number] Patient Name: Joaquín Barrientos [facility] rd#: [id number] Address: [address] [place] [address] 85 City/State/Zip: [place] [address]: Laura Washington MD Insurance: [facility] /Age/Sex: 1960/61[birth year]M Self Pay Admit/Reg Date: 11/21/[address]: Caio Washington MD Location: 3A.GS/NJ628-Z PCP: Md MELANIE Lee Date of Service: 11/22/21 Order (s): NM bone scan whole body CPT Code: 78829 Report Number: [id number] Reason for Exam: c2 fracture THREE [...] in the lytic lesion. Dictated By: Eduar Rm MD 11/22/211726 Signed By: Eduar Rm MD 11/22/211736 TD/TT: 11/22/211726Tech: [facility] cc: HRSSPNABIL; PCPNO* Pcp-MD Renny; Cathleen Washington MD Report Dictated Date/Time Dictated By Status Electrocardiogram November 20, 2021 1:40am Jagjit Blum MD [address] [address] [place] [address] Patient Name: [place] rd#: [id number] Address: [address] [place] [address] 85 City/State/Zip: [place] [id number] Attending Dr: Laura Washington MD Insurance: [facility] /Age/Sex: 1960/61[birth year]M Self Pay Admit/Reg Date: 11/21/[address]: E/ R Olga Correa Location: 3A./PF319-C PCP: PcpMd MELANIE Johnson Date of Service: 11/20/21 Order (s): EKG ED Electrocardiogram CPT Code: 53481 Report Number: [id number] Reason for Exam: CP Sinus rhythm [...] November 21, 2021 6:26pm [place] [address] Patient Name: Joaquín Barrientos [facility] rd#: [id number] Address: [address] [place] [address] 85 City/State/Zip: [place] [address]: Laura Washington MD Insurance: [facility] /Age/Sex: 1960/61/M Self Pay Admit/Reg Date: 11/21/[address]: Caio Washington MD [facility] PCP: Md MELANIE Lee Date of Service: 11/21/21 Order (s): EKG Electrocardiogram CPT Code: 66892 Report Number: [id number] Reason for Exam: CP Sinus rhythm with 1st degree A-V block Rightward axis Right bundle branch block Left posterior fascicular block Low QRS voltages in precordial leads Dictated By: Jagjit Blum MD 11/21/21 18 Signed By: Jagjit Blum MD 11/22/211818 TD/TT: 11/21/211825Tech: TAURUS cc: TIA; SOREN* Md Jesus MD; Cathleen Washington MD Report Dictated Date/Time Dictated By Status Radiology Report November 23, 2021 10:26am Saulo Mcnulty MD completed [facility] [address] [place] [address] Patient Name: Joaquín Barrientos [facility] rd#: [id number] Address: [address] [place] [address] 85 City/State/Zip: [place] [address]: Laura Washington MD Insurance: [facility] /Age/Sex: 1960/61/M Self Pay Admit/Reg Date: 11/21/[address]: Caio Washington MD Location: 3A./ZJ421-N PCP: Md MELANIE Lee Date of Service: 11/23/21 Order (s): CT head/brain wo contrast CPT Code: 45423 Report Number: [id number] Reason for Exam: followup parietal lesio [...] MD 11/24/21 0 558 TD/TT: 11/23/21 1026Tech: [id number] cc: HRSSPETE; PCPNO* Pcp-MD Renny; Cathleen Washington MD Report Dictated Date/Time Dictated By Status Radiology Report December 01, 2021 10:06am Fer Dodge MD compl eted [facility] [address] [place] [address] Patient Name: Joaquín Barrientos [address] rd#: [id number] Address: [address] City/State/Zip: [place] [address]: Prakash Saravia MD Insurance: [facility] /Age/Sex: 1960/61/M Self Pay Admit/Reg Date: 12/01/[address]: HEAVENLY Montes De Oca Location: ED.GS/ PCP: Pcp-Beba Marin Md Date of Service: 12/01/21 Order (s): XR chest 2V CPT Code: 55620 Report Number: [id number] Reason for Exam: chest pain Patient [...] Dodge MD 12/01/21 1011 TD/TT: 12/01/21 1006Tech: SVCRPA cc: LOGEM; PCPNS; RICJU* DAKOTA Owen; Prakash Saravia MD; TERESSA CONCEPCION Report Dictated Date/Time Dictated By Status Electrocardiogram December 01, 2021 8:57am Prakash Saravia MD comp leted [facility] [address] [place] [address] Patient Name: Joaquín Barrientos [facility] [place] rd#: [id number] Address: [address] City/State/Zip: [place] [address]: Sean Salmeron MD Insurance: [facility] /Age/Sex: 1960/61/M Self Pay Admit/Reg Date: 12/01/[address]: HEAVENLY Montes De Oca Location: [address] [place] [address] PCP: PcpCarla lopes Md Date of Service: 12/01/21 Order (s): EKG ED Electrocardiogram CPT Code: 93209 Report Number: [id number] Reason for Exam: Chest pain CONSIDER ACUTE ST ELEVATION OR Sinus rhythm with borderline 1st degree A-V block Rightward axis Right bundle branch block Inferior and septal ST elevation, CONSI RYDER ACUTE INFARCT Lateral ST-T abnormality suggests myoca rdial injury/ischemia Dictated By: Prakash Saravia MD 12/01/21 57 Signed By: Parkash Saravia MD 12/02/2116 TD/TT: 12/01/21 0857Tech: AMADO cc: LOGEM; PCPNS* Shira Al PAC; TERESSA RUIZ Report Dictated Date/Time Dictated By Status Electrocardiogram December 01, 2021 10:05am Prakash Saravia MD com pleted [facility] [address] [place] [address] Patient Name: Joaquín Barrientos [facility] [place] rd#: [id number] Address: [address] City/State/Zip: [place] [address]: Sean Salmeron MD Insurance: [facility] /Age/Sex: 1960/61/M Self Pay Admit/Reg Date: 12/01/[address]: HEAVENLY Montes De Oca Location: 3A./OJ219-C PCP: PcpCarla lopes Md Date of Service: 12/01/21 Order (s): EKG ED Electrocardiogram CPT Code: 26192 Report Number: [id number] Reason for Exam: CHEST PAIN Sinus rhythm Lead(s) unsuitable for analysis: V3 Right axis deviation Right bundle branch block Dictated By: Prakash Saravia MD 12/01/21 10 05 Signed By: Prakash Saravia MD 12/02/21 08 TD/TT: 12/01/21 1005Tech: AMADO cc: LOGEM; PCPNS* Shira Al PAC; TERESSA RUIZ Report Dictated Date/Time Dictated By Status Radiology Report December 07, 2021 10:53pm Lary Rhodes MD completed [address] [address] [place] [address] Patient Name: Joaquín Barrientos [facility] rd#: [id number] Address: [address] City/State/Zip: [place] [address]: Harlan Davis DO Insurance: [facility] /Age/Sex: 1960/61/M Self Pay Admit/Reg Date: 12/07/[address]: DAKOTA Hutchinson Location: ED./ PCP: PcpCarla Marin Md Date of Service: 12/07/21 Order (s): CT head/brain wo contrast CPT Code: 06852 Report Number: [id number] Reason for Exam: syncope with head [...] were utilized Dictated By: Lary Rhodes MD 12/07/21 225 Signed By: Lary Rhodes MD 12/07/21 225 9 TD/TT: 12/07/21 2253Tech: [email or web address] cc: JOSE; PCPNS; ANAM* TERESSA RUIZ; Erasto Chowdary, DAKOTA; Phil Davis DO Report Dictated Date/Time Dictated By Status Radiology Report December 07, 2021 10:56pm Lary Rhodes MD completed [facility] [address] [place] [address] Patient Name: Joaquín Barrientos [facility] rd#: [id number] Address: [address] City/State/Zip: [place] [address]: Harlan Davis DO Insurance: [facility] /Age/Sex: 1960/61/M Self Pay Admit/Reg Date: 12/07/[address]: DAKOTA Hutchinson Location: ED.GS/ PCP: Pcp-Beba StaffMd Date of Service: 12/07/21 Order (s): CT cervical spine wo contrast CPT Code: 87352 Report Number: [id number] Reason for Exam: pain s/p fall Cervical [...] were utilized Dictated By: Lary Rhodes MD 12/07/21 2256 Signed By: Lary Rhodes MD 12/07/21 230 2 TD/TT: 12/07/21 2256Tech: [id number] cc: [email or web address]; PCPBENITA; ANAM* TERESSA RUIZ; DAKOTA Victor; Phil Davis DO Report Dictated Date/Time Dictated By Status Radiology Report December 08, 2021 7:58am Eduar Rm MD comp [address] [address] [facility] [place] [address] Patient Name: Joaquín Barrientos [facility] rd#: [id number] Address: [address] City/State/Zip: [place] [address]: Jesenia Rivas MD Insurance: [facility] /Age/Sex: 1960/61/M Self Pay Admit/Reg Date: 12/07/[address]: DAKOTA Hutchinson Location: [address] [place] [address] PCP: PcpCarla lopes Md Date of Service: 12/07/21 Order (s): CT abdomen pelvis w contrast; CT chest w contrast; CT thoracic spine wo contrast CPT Code: 31605; 83368; 82737 Report Num mike: [id number] Reason for Exam: L sided lower [...] using the independent workstation, performed by the chief cardiopulmonary technologist was reviewed. Automated exposure control and [...] 12/08/21 0758 Signed By: Eduar Rm MD 12/08/21 0827 TD/TT: 12/08/21 0758Tech: [id number] cc: VIVEK; PUNEET MENDIETA* TERESSA RUIZ; Jesenia Rivas MD; Erasto Chowdary, [facility] Report Dictated Date/Time Dictated By Status Electrocardiogram December 08, 2021 12:11am [place] mendoza MD completed [facility] [address] [place], [place] [address] Patient Name: Joaquín Barrientos [address]#: [id number] Address: [address] City/State/Zip: [place] [address]: Jesenia Rivas MD Insurance: [facility] /Age/Sex: 1960/61/M Self Pay Admit/Reg Date: 12/07/[address]: Juan A garza MD Location: 3B./WJ329-C PCP: Lissette lopes Md Date of Service: 12/08/21 Order (s): EKG Electrocardiogram CPT Code: 99663 Report Number: [id number] Reason for Exam: SYNCOPE SINUS RHYTHM VENTRICULAR PREMATURE COMPLEX FIRST DEGREE AV BLOCK RBBB AND LPFB Summary: Abnormal ECG Dictated By: [place] Espinal MD 10 Signed By: [place] Espinal MD 12/08/2114 TD/TT: 12/08/2110Tech: ALYSHA cc: MONICA; PCPNS* Javy Molina MD; TERESSA RUIZ Report Dictated Date/Time Dictated By Status Radiology Report December 08, 2021 1:51pm Gaurang Ramos MD [facility] [place] [address] Patient Name: Joaquín Barrientos [facility] rd#: [id number] Address: [facility] 0 City/State/Zip: [place] [address]: Jesenia Rivas MD Insurance: [facility] /Age/Sex: 1960/61[birth year]M Self Pay Admit/Reg Date: 12/08/[address]: Griselda daugherty MD Location: 3B./PQ953-I PCP: PcpCarla lopes Md Date of Service: 12/08/21 Order (s): US venous duplex LE BI CPT Code: 57584 Report Number: [id number] Reason for Exam: Acute PE, question DVT BILATERAL DUPLEX LEG VENOUS ULTRASOUND ( 26961) HISTORY: Acute PE. TECHNIQUE: Examination of the [...] 135 7 TD/TT: 12/08/21 1351Tech: [id number] cc: PCPBENITA; TERESSA GAYTAN; Jesenia Rivas MD Report Dictated Date/Time Dictated By Status Echocardiogram December 08, 2021 9:28am Daron [place] [address] Patient Name: Joaquín Barrientos [facility] rd#: [id number] Address: [facility] 0 City/State/Zip: [place] [address]: Jesenia Rivas MD Insurance: [facility] /Age/Sex: 1960/61/M Self Pay Admit/Reg Date: 12/08/[address]: Griselda daugherty MD [facility] PCP: Pcp-Beba lopes Md Date of Service: 12/08/21 Order (s): Echo TTE comp w/dop w contras t CPT Code: C8929 Report Number: [id number] Reason for Exam: Acute pulmonary embolis m Transthoracic Echocardiography Report (T TE) Demographics Patient Name Floyd Yanes Gender Male MR Number [id number] Date of [birth year] Age 61 year (s) Room Number GS351 Height 69 inches Date of study 12/08/2021 Weight 247.01 pounds Referring MD Jesenia Rivas BSA 2.2 6 m^2 MD Erasto Blum MD Interpreting MD Daron Leong MD BMI 3 6.48 kg/m^2 Fellow Mutual Fund Sales Agent Krys Chen, [facility] Conclusions Summary Definity .5mL was given [...] By: Daron Leong MD 12/08/21 TD/TT: 12/08/21927Tech: [email or web address] cc: NATALY; VIVEK; DARRELL* Daron Leong MD; TERESSA RUIZ; Mauro Rivas MD Report Dictated Date/Time Dictated By Status Radiology Report December 11, 2021 10:21am Matt Granger MD co mpleted [address] [address] [place] [address] Patient Name: Joaquín Barrientos [facility] rd#: [id number] Address: [facility] 8 City/State/Zip: [place] [address]: Dillon Mcdonald MD Insurance: [facility] /Age/Sex: 1960/61/M Self Pay Admit/Reg Date: 12/11/[address]: Haris Bradshaw DO Location: ED.INGS/GSXFR-4 PCP: Pcp-Beba arrington Md Date of Service: 12/10/21 Order (s): XR chest 1V portable CPT Code: 61870 Report Number: [id number] Reason for Exam: Chest Pain XR [...] Matt Granger MD 12/11/21 1025 TD/TT: 12/11/21 102Tech: [facility] cc: [email or web address]; [email or web address]; PCPNS* TERESSA RUIZ; Orlando Dodge; Titus Bradshaw DO Report Dictated Date/Time Dictated By Status Electrocardiogram December 10, 2021 8:49pm [place] Rivas MD co mpleted [facility] [address] [place] [address] Patient Name: Joaquín Barrientos [facility] rd#: [id number] Address: [facility] 8 City/State/Zip: [place] [address]: Dillon Mcdonald MD Insurance: [facility] /Age/Sex: 1960/61/M Self Pay Admit/Reg Date: 12/11/[address]: Haris Bradshaw DO Location: ED.[place] [address] PCP: PcpCarla arrington Md Date of Service: 12/10/21 Order (s): EKG ED Electrocardiogram CPT Code: 50119 Report Number: [id number] Reason for Exam: Chest Pain SINUS RHYTHM RIGHT BUNDLE BRANCH BLOCK [120+ ms QRS DURATION, UPRIGHT V1, 40+ ms S IN I/aVL/V4/V5/V6] LEFT POSTERIOR FASCICULAR BLOCK [QRS AX IS > 109, INFERIOR Q] ABNORMAL ECG No STEMI. Dictated By: [place] Rivas MD 12/10/21 20 49 Signed By: [place] Rivas MD 12/11/21 1311 TD/TT: 12/10/212048Tech: SAMANTHA cc: [email or web address]; PCPNS* TERESSA RUIZ; Titus Bradshaw DO Report Dictated Date/Time Dictated By Status Cardiac Catheterization December 02, 2021 12:06pm Erasto Blum MD completed [facility] [address] [place] [address] Patient Name: Joaquín Barrientos [address]#: [id number] Address: [address] City/State/Zip: [place] [address]: Sean Salmeron MD Insurance: [facility] /Age/Sex: 1960/61/M Self Pay Admit/Reg Date: 12/03/[address]: Orlando Virgen [facility] PCP: PcpCarla lopes Md Date of Service: 12/02/21 Order (s): Cardiac Cath Order CPT Code: Report Number: [id number] Reason for Exam: CP Cardiac Catheterization and [...] 12, 2021 12:52pm Jagjit Blum MD completed [facility] [address] [place] [address] Patient Name: Joaquín Barrientos [facility] rd#: [id number] Address: [address] City/State/Zip: [place], [place] Nicolás Attend ing Dr: Jesenia Rivas MD Insurance: [facility] /Age/Sex: 1960/61/M Self Pay Admit/Reg Date: 12/11/[address]: Kylah gan MD Location: 3B./NP805-Z PCP: Pcp-Beba lopes Md Date of Service: 12/12/21 Order (s): EKG Electrocardiogram CPT Code: 94493 Report Number: [id number] Reason for Exam: ARRTHYMIA Sinus rhythm with 1st degree A-V block Right axis deviation RBBB with Left Posterior Fascicular Blo ck. Dictated By: Jagjit Blum MD 12/12/21 12 52 Signed By: Jagjit Blum MD 12/13/21 1708 TD/TT: 12/12/21 1252Tech: TAURUS cc: [email or web address]; PCPNS* TERESSA RUIZ; Orlando Dodge Vital Signs Vital Reading Result Reference Range Collection Date/ Time Height 177.8 cm November 20 11:25pm Weight 108.86 kg November 22 5:15am Body Temperature 97.5 [degF] 97.6-99.6 November 23 7:45am Heart Rate 77 /min 60-90 November 23 9:00am Respiratory rate 20 /min -November 23 7:45am Oxygen saturation by Pulse 98 % 95-100 2021 7:45am oximetry BP Systolic 127 mm[Hg] [...] kg/m2 November 10:45pm Height 175.26 cm December 02, 2 022 12:39am Weight 111.13 kg December 02, 2 022 12:39am Body Temperature 98.3 [degF] 97.6-99.6 December 03, 2021 7:25am Heart Rate 81 /min 60-December 03, 2 022 11:39am Respiratory rate 20 /min 03-26December 03, 2021 7:25am Oxygen saturation by Pulse 96 % 95-100 [facility] 2021 7:25am oximetry BP Systolic 135 mm[Hg] 90-140 December 03, 2 022 7:25am BP Diastolic 47 mm[Hg] 60-90 December 03, 2 022 7:25am BMI (Body Mass Index) 36.2 kg/m2 December 02, 2021 12:39am Height 175.26 cm December 08, 2 022 2:22am Weight 112.26 kg December 08, 2 022 2:22am Body Temperature 98.1 [degF] 97.6-99.6 December 09, 2021 8:20am Heart Rate 89 /min 60-90 December 09, 2 022 8:20am Respiratory rate 18 /min -December 09, 2021 8:20am Oxygen saturation by Pulse 96 % 95-100 [facility] 2021 8:20am oximetry BP Systolic 136 mm[Hg] 90-140 December 09, 2 022 8:20am BP Diastolic 78 mm[Hg] 60-90 December 09, 2 022 8:20am BMI (Body Mass Index) 36.5 kg/m2 December 08, 2021 2:22am Heart Rate 74 /min 60-90 December 11, 2021 3:54pm Respiratory rate 18 /min 12-24 December 11, 2021 3:52pm Oxygen saturation by Pulse 97 % 95-100 Septe 2021 3:52pm oximetry BP Systolic 136 mm[Hg] 90-140 December 11, 2021 3:52pm BP Diastolic 60 mm[Hg] 60-90 December 11, 2021 3:52pm Advance Directives Advance Directive Response Recorded Date/Time Advance Directives No November 21, 2021 1: 46pm Health Care Proxy Yes November 21, 2021 1: 46pm Advance Directives No December 02, 2021 11:25am Health Care Proxy No December 02, 2021 11:25am Advance Directives No November 28, 2021 9: 34pm Health Care Proxy No November 28, 2021 9: 34pm Advance Directives No December 08, 2021 9:15am Health Care Proxy No December 08, 2021 9:15am Pt has Medical Orders for Life Sustaining Tx No December 08, 2021 9:15am Form (MOLST)? Advance Directives No December 10, 2021 8:11pm Health Care Proxy No December 10, 2021 8:11pm Insurance Providers Guarantor Joaquín Barrientos Address [address] [place] [address] Contact Info. Home Phone: Payer Policy Id Coverage Id Subscriber's Subscriber Effective Expi ration Name Id Date Date [facility] [id number] Joaquín Barrientos [id number] [facility] Medicare A&B [id number] Joaquín Barrientos [id number] Self Pay Self N/A Encounters Encounter Location(s) Arrival/Admit Date Discharge/Depart Provi ryder(s) Date Discharged [facility] November 21, 2021 November 23, 2021 Zamora , Inpatient Medical 9:59am 4:58pm Center-3A Departed [facility] November 28, 2021 November 29, 2021 da hernandez Emergency Medical 9:07pm 12:08am Center-Emergency Dept Discharged [facility] December 03December 03, 2021 Luther Salmeron , Inpatient Medical 2021 9:24am 1:31pm Center-3A Discharged [facility] December 08December 09, 2022 Danay Rice Inpatient Medical 2021 12:49pm 2:05pm , Center-3B Admitted [facility] December 11 Inpatient Medical 2021 1:50am Harry [place]-[facility] MD Inpatient Recent Diagnosis Onset Date Abdominal pain BPH (benign prostatic hyperplasia) Chest pain Neck pain Tetralogy of Fallot Cardiac defibrillator in situ Essential hypertension Mixed hyperlipidemia Paroxysmal atrial fibrillation Type 2 diabetes mellitus Atypical chest pain Chest pain Cardiac defibrillator in situ Essential hypertension Paroxysmal atrial fibrillation Alcohol abuse Asthma Obstructive sleep apnea Pulmonary embolism Pulmonary nodule Readmission after hospitalization within last 30 days Syncope Diabetes Afib Alcohol abuse Atypical chest pain Defibrillator discharge Pulmonary embolism Tetralogy of Fallot Cardiac defibrillator in situ Diabetes Hypertension Functional Status Observation Response Date Recorded Assistive [...] None December 02, 2021 11:25am Ambulation Tolerance Good December 03, 2021 4:07am Date of Last Bowel Movement 12/03/21 Brittany 2n 2021 4:07am Oral Care Teeth Brushing December 03, 2021 4:07am Mouth Rinse December 03, 2021 4:07am Assistive Devices None December 08, 2021 9:15am Ambulation Tolerance [facility] December 09, 2021 10:18am Date of Last Bowel Movement 12/09/21December 8t , 2021 10:18am Oral Care Teeth Brushing December 09, 2021 10:18am Mental Status Observation Response Date Recorded Arousable [...] 2021 11:29am Appropriate December 09, 2021 11:29am Assessments Diagnosis Onset Date Resolution Status Abdominal pain acute BPH (benign prostatic hyperplasia) acute Chest pain acute Neck pain acute Tetralogy of Fallot chronic Cardiac defibrillator in situ ch ronic Essential hypertension chronic Mixed hyperlipidemia chronic Paroxysmal [...] situ ch ronic Diabetes chronic Hypertension chronic Plan of Treatment Future Tests Future scheduled test information is unavailable Pending Tests Test Name Date ordered VTE Risk Assessment Medical November 20, 2021 4:17am VTE Risk Assessment Medical December 03, 2021 9:23am [facility]TE Risk Assessment Medical December 01, 2021 3:24pm [facility]TE Risk Assessment Medical December 11, 2021 1:50a m Future Visits Future appointment information is unavailable Referrals to Other Providers Reason for Referral Start Provider Provider Contact Provider Address Referral Date Information Pcp-Md MD TERESSA Lawson Work Phone: [address] [facility] [address] [address] TERESSA RUIZ Work Phone: [address] [place] [address] [address] [facility] [address] Wally Stone Work Phone: [facility] MD Diana [address], [address] [facility] [address] TERESSA RUIZ Work Phone: [address] [address] Future Procedures Procedure Name Scheduled Date [...] Spiritual Care Consult December 01, 2021 11:47pm Arc Trimmer Consult December 01, 2021 11:47pm Cardiology Consult [...] Level of Care December 11, 2021 1:50am Cardiology Consult December 11, 2021 1:50am Code Status December 11, 2021 1:50am ED Transfer of Care to Adm Physician December 11 1:37am Saline Lock Insert/Manage December 10, 2021 [...] Embolism Causes of Syncope Embolism Pulmonary Dc Goals Acute Goals FOLLOWUP WITH UROLOGY FOR [...] mm in thickness. BLADDER US: pending Mr. Barrientos YOu will need to follow up with your [facility] doctor within 1-2 weeks. Please see the [...]
--- OUTSIDE RECORDS SUMMARY | 2022-04-07 13:27 | XMS_ITS | Continuity of Care Document ---
:1960 [facility] Address [address] [place] [address] Phone Support Name Relationship Address Phone Megha Aguayo Sister [address] [facility] [place] [address] Pcp-Renny, Primary Care Provider Unavailable Alissa Mckenna Emergency Provider [address] [facility] [phone] [place] [address] Gurjit Solomon Admit Provider [address] [place] [address] Allergies, Adverse Reactions, Alerts Allergen Type Severity [...] 2019 completed EKG Electrocardiogram June 30, 2019 active Relevant Diagnostic Tests and/or Laboratory Data Laboratory Results Test Date/Time Result Interpretation Reference Result Perfo rming Range Comment Site Add-On Test June 29, [facility], [address] [facility] Request 2019 7:50am [place] [address] White Blood Count June 29, 8.7 X10 4.5-11.0 [facility], [address] [place] [address] 2019 2:06am 3/uL [place] [address] Red Blood Count June 29, 4.78 X10 4.00-5.50 [facility], [address] [place] [address] 2019 2:06am 6/uL [place] [address] Hemoglobin June 29, 12.5 12.0-17.0 [facility], [address] [place] [address] 2019 2:06am g/dl [place] A [address] Hematocrit June 29, 40.1 % 35.0-50.0 [facility], [address] [place] [address] 2019 2:06am [facility] A 38829 Mean Corpuscular June 29, 83.9 fl 80.0-100.0 [facility], [address] [place] [address] Volume 2019 2:06am [facility] A 71346 Mean Corpuscular June 29, 26.2 pg 27.0-34.0 [facility], [address] [place] [address] Hemoglobin 2020 2:06am [facility] 99667 Mean Corpuscular June 29, 31.2 31.0-36.0 [facility], [address] [place] [address] Hemoglobin Concent 2019 2:06am g/dl [facility] 39994 Red Cell June 29, 13.8 % 11.5-15.0 [facility] Katja [facility], [address] [place] [address] Distribution Width 2019 2:06am [facility] 20674 Platelet Count June 29, 127 X10 150-400 [facility], [address] [place] [address] 2019 2:06am 3/uL [facility] A 58558 Immature June 29, 1.3 % [facility], [address] [place] [address] Granulocyte % 2019 2:06[place] [address] (Auto) Neutrophils (%) June 29, 61.7 % [facility], [address] [place] [address] (Auto) 2019 2:06am [facility] A 35248 Lymphocytes (%) June 29, 20.1 % [facility], [address] [place] [address] (Auto) 2019 2:06am [facility] A 30529 Monocytes (%) June 29, 9.0 % [facility], [address] [place] [address] (Auto) 2019 2:06am [facility] A 16482 Eosinophils (%) June 29, 6.4 % [facility], [address] [place] [address] (Auto) 2019 2:06am [place] A 37178 Basophils (%) June 29, 1.5 % [facility], [address] [place] [address] (Auto) 2019 2:06am [place] A 88804 Immature June 29, 0.11 X10 0.00-0.09 [facility], [address] [place] [address] Granulocyte # 2020 2:06am 3/uL [place] (Auto) Neutrophils # June 29, 5.4 X10 1.5-7.8 [facility], [address] [place] [address] (Auto) 2019 2:06am 3/uL [place] A 80184 Lymphocytes # June 29, 1.8 X10 1.0-4.8 [facility], [address] [place] [address] (Auto) 2019 2:06am 3/uL [place] A 34350 Monocytes # (Auto) June 29, 0.8 X10 0.0-0.8 [facility], [address] [place] [address] 2019 2:06am 3/uL [place] A 84088 Eosinophils # June 29, 0.6 X10 0.0-0.5 [facility], [address] [place] [address] (Auto) 2019 2:06am 3/uL [place] A 76521 Basophils # (Auto) June 29, 0.1 X10 0.0-0.2 [facility], [address] [place] [address] 2019 2:06am 3/uL [place] A 11333 Nucleated Red June 29, 0.0 /100 0.0-0.0 [facility], [address] [place] [address] Blood Cells % 2020 2:06am WBC [place] Sodium Level June 29, 136 137-146 [facility], [address] [place] [address] 2019 2:06am mmol/L [place] A 85915 Potassium Level June 29, 4.4 3.5-5.3 [facility], [address] [place] [address] 2019 2:06am mmol/L [place] A 98489 Chloride Level June 29, 99 98-107 [facility], [address] [facility] 2020 2:06am mmol/L [facility] A 52343 Carbon Dioxide June 29, 23 23-32 [facility], [address] [facility] Level 2020 2:06am mmol/L [facility] A 50367 Anion Gap June 29, 14 5-15 [facility], [address] [facility] 2020 2:06am mmol/L [facility] A 02107 Blood Urea June 29, 22 mg/dl 5-25 [facility], [address] [facility] Nitrogen 2019 2:06am [facility] A 78758 Creatinine June 29, 1.3 0.6-1.4 [facility], [address] [place] [address] 2019 2:06am mg/dL [facility] A 47779 Estimated June 29, 74.6 This value [facility], [address] [place] [address] Creatinine 2020 2:06am ml/min is [facility] 61560 Clearance calculated by Cockcroft Gault Equation using ideal body weight. This result is dependent on an accurate patient height and weight which is obtained from patients medical record. MukeshofJoey sanchez. and M.H. Gault. Prediction of creatinine clearance from serum creatinine. Nephron. 1976. 16(1):31-41 . Estimated GFR June 29, > 60 >60 [facility], [address] [place] [address] () 2019 2:06am [facility] 03525 Estimated GFR June 29, > 60 >60 [facility], [address] [place] [address] (Non- 2020 2:06[place] [address] [place] BUN/Creatinine June 29, 16.9 10.0-20.0 [facility], [facility] Ratio 2019 2:06am [facility] A 64565 Glucose Level June 29, 172 70-100 [facility], [address] [place] [address] 2020 2:06am mg/dL [facility] 90892 Calcium Level June 29, 8.4 8.6-10.3 [facility], [address] [place] [address] 2019 2:06am mg/dl [place] A 08052 Phosphorus Level June 29, 4.1 2.5-4.5 [facility], [address] [place] [address] 2019 2:06am mg/dL Kory Mendosa 02787 Magnesium Level June 29, 1.8 1.8-2.5 [facility], [address] [place] [address] 2019 2:06am mg/dL Kory [place] 58737 Total Bilirubin June 29, 0.3 <1.2 [facility], [address] [place] [address] 2019 2:06am mg/dl Kory [place] 42537 Direct Bilirubin June 29, < 0.2 <0.5 [facility], [address] [place] [address] 2019 2:06am mg/dl Kory [place]osa 21483 Aspartate Amino June 29, 16 U/L 15-41 [facility], [address] [place] [address] Transf (AST/SGOT) 2019 2:06am Kory VILLALOBOS 32019 Alanine June 29, 14 U/L 14-63 [facility], [address] [place] [address] Aminotransferase 2019 2:06am B michael VILLALOBOS 72970 (ALT/SGPT) Creatine Kinase MB June 29, 2.0 0.0-6.0 [facility], [address] [place] [address] 2019 9:50am ng/ml Kory [place]osa 80317 Troponin T June 29, < 0.01 [facility], [address] [place] [address] 2019 9:50am ng/ml Kory Mendosa 67992 Total Protein June 29, 7.0 g/dL 6.4-8.3 [facility], [address] [place] [address] 2019 2:06am Kory Mendosa 36600 Albumin June 29, 4.1 g/dl 4.0-5.0 [facility], [address] [place] [address] 2019 2:06am Kory Mendosa 05635 Albumin/Globulin June 29, 1.4 1.0-2.6 [facility], [address] [place] [address] Ratio 2019 2:06am Kory Mendosa 75859 Triglycerides June 29, 134 <150 <=150 mg/dL [facility], [address] [place] [address] Level 2020 2:06am mg/dL = Desirable [facility] 13932 Cholesterol Level June 29, 177 <200 <200 mg/dL [facility], [address] [place] [address] 2019 2:06am mg/dl = Desirable [facility] 73879 LDL Cholesterol, June 29, 99 mg/dl <130 [facility], [address] [place] [address] Calculated 2019 2:06am [facility] 30274 HDL Cholesterol June 29, 51 mg/dL >40 < 40 mg/dl: [facility], [address] [place] [address] 2019 2:06am Low [facility] 42126 HDL-cholest enmanuel(major risk factor for CHD)>/= 60 mg/dl: High HDL-cholest enmanuel(negati ve risk factor for CHD)HDL-cho lesterol is affected by a number of factors, e.g., smoking, excercise, hormones, sex and age. Cholesterol Ratio June 29, 1.9 LDL/HDL [facility], [address] [place] [address] (LDL/HDL) 2019 2:06am Interpretat [facility] 53256 ion:Ratio Men Women1/2 Average 1.00 1.47Average 3.55 3.222X Average 6.25 5.033X Average 7.99 6.14 Cholesterol/HDL June 29, 3.5 Cholesterol [facility], [address] [place] [address] Ratio 2019 2:06am /HDL [facility] 53870 Interpretat ion: Ratio Men Women 1/2 Average 3.43 3.27 Average 4.97 4.44 2X Average 9.55 7.05 3X Average 23.39 11.04 Alkaline June 29, 81 U/L 40-129 [facility] Katja [facility], [address] [place] [address] Phosphatase 2020 2:06am [facility] 24848 Diagnostic Imaging Reports Report Dictated Date/Time Dictated By Status Communication Report April 21, 2018 1:32pm Service Allscript s completed [facility] [address] [place] [address] CDI Assessment Signed Patient: WASHINGTON SARABIA Medical Record#: [id number] : 1960 Acct:[id number] Age/Sex: 58 / M Admit/Reg Date: 04/20/18 Loc: 3NE. Room: [place] [address] Report Number : [id number]: Sharmin Amanda MD PT : WASHINGTON SARABIA : 1960 ACCT: [id number] ADMIT DATE: 04-20-2018 Dictated By: Maya Su Signed By: Maya Su 04/21/18 1 332 DD/ 31 TD/TT: 04/21/181331 Grinding Room Supervisor: Maria Elena Peterson cc: * Case Management Initial April 21, 2018 2:23pm Service Tayla ipts completed Assessment [address] [address] Initial Discharge Planning Signed Patient: WASHINGTON SARABIA Medical Record#: [id number] : 1960 Acct:[id number] Age/Sex: 58 / M Admit/Reg Date: 04/20/18 Loc: 3NE. Room: [place] [address] Report Number : [id number]: Sharmin Amanda MD Patient Name: WASHINGTON SARABIA MRN: [id number] Acct Number: [id number] : 1960 Age: 58 Admission Information Patient Type: INPATIENT Admit Date: 04/20/2018 Admit Time: 20:1 5 Admit Reason: CHEST PAIN Unit: 3NE. Bed: [place] [address] Discharge Disposition: Xfer to [facility] 7.Initial Discharge Planning Assessment Created by : Ana alas Date/Time 2018-04-21 14:21:09.000 Initial Discharge Planning Assessment Interviewed:: Patient Prior Functional Status: Independent Have you ever served in [facility]?: No Living Situation / Support System: Home less Anticipated Discharge Discussed With: Ally dunham Anticipated Discharge Plan: Psych Facil ity (Inpatient) Note: Patient sleeping at time of CM vi sit, answering CM questions minimally. Patient was on an inpatient Psychiatry floor before being transferred to medicine. Patient's PCP is at [facility]. Per EMR, patient is homeless and patient's Megha peña ([phone]) is listed as patient's contact. Patient will like ly be discharged back to inpatient psych when medically cleared. Will cont inue to follow. Electronically signed by: Ana castillo Electronically signed on: 2018-04-21 Dictated By: Maya Su Signed By: Maya Su 04/21/18 1 423 DD/DT: TD/TT: Grinding Room Supervisor: [id number] cc: * Radiology Report April 21, 2018 3:56pm Grant Bashir MD [address] [address] Patient Name: WASHINGTON SARABIA [facility] rd#: [id number] Address: [address] [place] [address] Account#: [id number] City/State/Zip: [place] [address] : Sharmin Amanda MD Insurance: [facility] /Age/Sex: 1960/58/M Self Pay Admit/Reg Date: 04/20/[address]: Gume Mckeon MD Location: [address] [place] [address] PCP: PcpMd Alex Date of Service: 04/20/18 Order (s): XR chest 2V CPT Code: 26864 Report Number: [id number] Reason for Exam: chest pain CHEST (2 views) (52486) History: chest pain Findings: The heart size is within normal limits with a tortuous aorta. The lungs are clear. There is no confluent infiltrate or effusion. There is multilead cardiac pacemaker. IMPRESSION: No acute process seen. No ED interpretation available. Dictated By: Grant Bashir MD 1556 Signed By: Grant Sanchez MD 1557 TD/TT: 04/21/18 1556Tech: [id number] cc: Germania Mckeon MD; PcpMd Alex ; Kylah Amanda MD* Radiology Report June 30, 2019 12:41pm [place] [address] Patient Name: Washington Sarabia [facility] rd#: [id number] Address: [address] [place] [address] Account#: [id number] City/State/Zip: [place] [address]: Gurjit Solomon MD Insurance: [facility] /Age/Sex: 1960/59/M Self Pay Admit/Reg Date: 06/30/[address]: Kylah Limon MD [address] PCP: Md Jesus Date of Service: 06/30/19 Order (s): XR chest 1V portable CPT Code: 58270 Report Number: [id number] Reason for Exam: Chest Pain CLINICAL INDICATION: Chest pain. ED INTERPRETATION: Cardiomegaly. PORTABLE UPRIGHT CHEST: 06/30/20192019 2:18 AM. The lungs are clear. Top normal heart size. Mediastinum unremarka ble. Cardiac pacer with 3 leads from left chest in good position. No change c ompared with 01/18/2019 . Dictated By: Kali Gayle MD 06/30/19 1241 Signed By: Kali Gayle MD 06/30/19 1242 TD/TT: 06/30/19 1241Tech: [id number] cc: RICO; PCPNO; PRUSU* Gurjit Solomon MD; Md Jesus ; Esperanza Limon MD Case Management Notes June 30, 2019 12:53pm [place] [address] CM Assessment Note Signed Patient: Washington Sarabia Medical Record#: [id number] : 1960 Acct:[id number] Age/Sex: 59 / M Admit/Reg Date: 06/30/19 Loc: [facility]. Room: [address] Report Number : [id number]: Gurjit Solomon MD Patient Name: Washington Sarabia MRN: [id number] Acct Number: [id number] : 1960 Age: 59 Admission Information Patient Type: INPATIENT OBSERVATION Admit Date: 06/30/2019 Admit Time: 05:5 9 Admit Reason: CHEST PAIN R/O NC,PACEMAK ER FIRED X3 Unit: [address] Bed: [address] Discharge Disposition: Home, Self-Care 3. Case Management Note Created by : Celio Redman Date/Time 06-29 12:52:07.000 Note: reports Pt is medically stable to discharge back to [facility]: Freddie Camilo MA today. Sarah'ozzy Mariee e requested a copy of his discharge paperwork when he discharges; patient r eports he will walk over from ED when cleared, nurse may provide assista nce to get him there. SW will fax at time of discharge. All in agreement wit discharge plan. Electronically signed by: Celio Redman Electronically signed on: 2019-06-30 Dictated By: Maya Su Signed By: Maya Su 06/30/19 1 253 DD/DT: TD/TT: Grinding Room Supervisor: SUSANA cc: * Advance Directives Advance Directive Response Recorded Date/Time Pt has Medical Orders for Life Sustaining Tx No April 21, 2018 12:53am Form (MOLST)? Advance Directives No June 30, 2019 10: 38am Health Care Proxy Yes June 30, 2019 10: 38am Chief Complaint and Reason for Visit Chief Complaint CHEST PAIN R/O NC,PACEMAKER FIRED X3 Reason for Visit Chest pain, rule out acute m yocardial infarction Mood disorder Pacemaker complications Encounters Encounter Location(s) Arrival/Admit Date Discharge/Depart Date Provider(s) Discharged [facility] April 21, 2018 April 21, 2018 [facility] [place] [facility]-3 1:03am 2:35pm MD Henderson Discharged [facility] June 30, 2019 June 30, 2019 [facility] laura A Inpatient Medical 5:59am 3:57pm MD Juanito Sainte Marie-[address] Recent Diagnosis Onset Date Chest pain, [...] to follow up with cardiology at [facility]. Please call [phone] or [phone] to make an appointment with cardiology at [facility], Dr. Kali Richardson or Dr. Mack Candelaria. We have left a voicemail for their office for this appo intment. Please follow up with your PCP in a week . It was a pleasure taking care of you! Mental Status No Mental Status Information Available Medical Equipment No Medical Equipment Information available Insurance Providers Guarantor Washington Sarabia Address [address] [place], [place] [address] Contact Info. Home Phone: Payer Policy Id Coverage Id Subscriber's Subscriber Effective Expi ration Name Id Date Date [facility] [id number] WASHINGTON SARABIA [id number] [facility] Self Pay Self N/A Plan of Treatment [...]
--- OUTSIDE RECORDS SUMMARY | 2022-04-07 13:28 | XMS_ITS | Continuity of Care Document ---
:1960 Author Organization Address [address] [place] [address] Phone Support Name Relationship Address Phone Megha Aguayo Sister [address] [facility] [place] [address] Pcp-Renny, Primary Care Provider Unavailable Alissa Mckenna Emergency Provider [address] [facility] [phone] [place] [address] Gurjit Solomon Admit Provider [address] [facility] [phone] [place] [address] Allergies, Adverse Reactions, Alerts Allergen Type Severity Reaction Last Updated Verified Status atorvastatin Allergy Unknown Hives January 18, Yes Act kelly 2019 peas Allergy Unknown Hives (Green Peas) January 18, Yes Active 2019 Medications Medication Status Dose Units Route Sig Qty Days Start End Instruct ions Date Date Acetaminophen Active 650 MG Oral EVERY April 08, HOURS 2018 1:19am Albuterol Active 2 PUFF Inhalati EVERY April Sulfate on 07 20, HOURS 2018 1:19am Amlodipine Active 2.5 MG Oral DAILY April 21, 2018 1:19am Aspirin Active 81 MG Oral DAILY April 21, 2018 1:19am Cyclobenzaprin Active 5 MG Oral THREE April e Hcl TIMES 2018 1:19am Febuxostat Active 80 MG Oral DAILY April 21, 2018 1:19am Fluticasone 50 Discontin 1 PUFF Inhalati DAILY April Ja nuary Mcg Disk ued on 2018 1:19am 1:28am Levothyroxine Active 75 MCG Oral 599 1:19am Lorazepam Active 0.5 MG Oral DAILY April 21, 2018 1:19am Metformin Active 500 MG Oral TWICE April A DAY , WITH 2019 MEALS 1:19am Montelukast Active 10 MG Oral ONCE April Sodium DAILY , AT 2019 BEDTIM 1:19am E Omeprazole Active 20 MG Oral DAILY April 21, 2018 1:19am Sotalol Hcl Active 160 MG Oral DAILY April 21, 2018 1:19am Trazodone HCl Active 50 MG Oral ONCE April DAILY , AT 2019 BEDTIM 1:19am E Fluticasone 50 Active 1 SPRAY Nasal TWICE April Mcg Nasal A DAY 2018 1:28am Problems Active Problems Medical Problem Onset Date Status Obstructive sleep apnea Active Sleep apnea Active Diabetes Active Alcohol abuse Active Essential hypertension Active Type 2 diabetes mellitus Active Dyslipidemia Active Afib Active Depression Active Hypothyroidism Active [...] XR chest 1V portable June 30, 2019 active Relevant Diagnostic Tests and/or Laboratory Data Laboratory Results Test Date/Time Result Interpretation Reference Result Perfo rming Range Comment Site White Blood June 29, 8.7 X10 4.5-11.0 [facility], [address] [place] [address] Count 2019 2:06am 3/uL [facility] A [address] Red Blood Count June 29, 4.78 X10 4.00-5.50 [facility] Clinical Labs, [address] [place] [address] 2019 2:06am 6/uL [facility] A 08476 Hemoglobin June 29, 12.5 12.0-17.0 [facility] Clinical Labs, [address] [place] [address] 2019 2:06am g/dl [place] A [address] Hematocrit June 29, 40.1 % 35.0-50.0 [facility] Clinical Labs, [address] [place] [address] 2019 2:06am [place] A 48672 Mean June 29, 83.9 fl 80.0-100.0 [facility] Clinical Labs, [address] [place] [address] Corpuscular 2019 2:06[place] [address] Volume Mean June 29, 26.2 pg 27.0-34.0 [facility] Katja carvalhos Clinical Labs, [address] [place] [address] Corpuscular 2020 2:06am [facility] [address] Hemoglobin Mean June 29, 31.2 31.0-36.0 [facility] Clinical Labs, [address] [facility] Corpuscular 2020 2:06am g/dl [facility] [address] Hemoglobin Concent Red Cell June 29, 13.8 % 11.5-15.0 [facility] Clinical Labs, [address] [place] [address] Distribution 2020 2:06[place] [address] Width Platelet Count June 29, 127 X10 150-400 [facility] Clinical Labs, [address] [place] [address] 2020 2:06am 3/uL [place] A 42287 Immature June 29, 1.3 % [facility] Clinical Labs, [address] [place] [address] Granulocyte % 2020 2:06[place] [address] (Auto) Neutrophils (%) June 29, 61.7 % [facility] Clinical Labs, [address] [place] [address] (Auto) 2020 2:06am [place] A [address]6561 Lymphocytes (%) June 29, 20.1 % [facility] Clinical Labs, [address] [place] [address] (Auto) 2020 2:06am [place] A 58629 Monocytes (%) June 29, 9.0 % [facility] Clinical Labs, [address] [place] [address] (Auto) 2020 2:06am [place] A 67392 Eosinophils (%) June 29, 6.4 % [facility] Clinical Labs, [address] [place] [address] (Auto) 2020 2:06am [place] A 16475 Basophils (%) June 29, 1.5 % [facility] Clinical Labs, [address] [place] [address] (Auto) 2020 2:06am [place] A 06314 Immature June 29, 0.11 X10 0.00-0.09 [facility] Clinical Labs, [address] [place] [address] Granulocyte # 2020 2:06am 3/[place] [address] (Auto) Neutrophils # June 29, 5.4 X10 1.5-7.8 [facility] Clinical Labs, [address] [place] [address] (Auto) 2020 2:06am 3/uL [place] A [address]64 Lymphocytes # June 29, 1.8 X10 1.0-4.8 [facility] Clinical Labs, [address] [facility] (Auto) 2020 2:06am 3/uL [place] A [address] Monocytes # June 29, 0.8 X10 0.0-0.8 [facility], [address] [facility] (Auto) 2020 2:06am 3/uL [place] [address] Eosinophils # June 29, 0.6 X10 0.0-0.5 [facility] Clinical Labs, [address] [place] [address] (Auto) 2020 2:06am 3/uL [place] A [address]81 Basophils # June 29, 0.1 X10 0.0-0.2 [facility] Clinical Labs, [address] [facility] (Auto) 2020 2:06am 3/u[place] [address] Nucleated Red June 29, 0.0 /100 0.0-0.0 [facility] Clinical Labs, [address] [facility] Blood Cells % 2019 2:06[place] [address] Sodium Level June 29, 136 137-146 [facility] Clinical Labs, [address] [facility] 2019 2:06am mmol/L [place] A [address] Potassium Level June 29, 4.4 3.5-5.3 [facility], [address] [place] [address] 2020 2:06am mmol/[place] [address] Chloride Level June 29, 99 98-107 [facility] Clinical Labs, [address] [facility] 2020 2:06am mmol/[place] A [address] Carbon Dioxide June 29, 23 23-32 [facility] Clinical Labs, [address] [place] [address] Level 2020 2:06am mmol/L [place] A [address] Anion Gap June 29, 14 5-15 [facility] Clinical Labs, [address] [facility] 2019 2:06am mmol/L [place] A [address] Blood Urea June 29, 22 mg/dl 5-25 [facility] Clinical Labs, [address] [place] [address] Nitrogen 2019 2:06am [place] A [address] Creatinine June 29, 1.3 0.6-1.4 [facility] Clinical Labs, [address] [place] [address] 2020 2:06am mg/dL [facility] A 10082 Estimated June 29, 74.6 This value [facility] Clinical Labs, [address] [place] [address] Creatinine 2020 2:06am ml/min is [facility] [address] Clearance calculated by Cockcroft Gault Equation using ideal body weight. This result is dependent on an accurate patient height and weight which is obtained from patients medical record. Cockcroft D.W. and M.H. Gault. Prediction of creatinine clearance from serum creatinine. Nephron. 1976. 16(1):31-41. Estimated GFR June 29, > 60 >60 [facility] Clinical Labs, [address] [place] [address] ( 2020 2:06am [place] A [address] Serbian) Estimated GFR June 29, > 60 >60 [facility] Clinical Labs, [address] [place] [address] (Non- 2020 2:[place] [address] Serbian BUN/Creatinine June 29, 16.9 10.0-20.0 [facility] Clinical Labs, [address] [place] [address] Ratio 2020 2:06am [facility] A 24932 Glucose Level June 29, 172 70-100 [facility] Clinical Labs, [address] [place] [address] 2020 2:06am mg/dL [facility] A 08101 Calcium Level June 29, 8.4 8.6-10.3 [facility] Clinical Labs, [address] [place] [address] 2020 2:06am mg/dl [facility] A 20530 Troponin T June 29, < 0.01 [facility] Clinical Labs, [address] [place] [address] 2019 2:06am ng/ml [facility] A 61102 Diagnostic Imaging Reports Report Dictated Date/Time Dictated By Status Communication Report April 21, 2018 1:32pm Service Allscript s completed [facility] [address] [place] [address] CDI Assessment Signed Patient: WASHINGTON SARABIA Medical Record#: [id number] : 1960 Acct:[id number] Age/Sex: 58 / M Admit/Reg Date: 04/20/18 Loc: [facility] Room: [place] [address] Report Number : [id number]: Sharmin Amanda MD PT : WASHINGTON SARABIA : 1960 ACCT: [id number] ADMIT DATE: 04-20-2018 Dictated By: Maya Su Signed By: Maya Su 04/21/18 1 332 DD/ 31 TD/TT: 04/21/181331 Gang Punch Operator: Maria Elena Peterson cc: * Case Management Initial April 21, 2018 2:23pm Service Tayla ipts completed Assessment [address] [address] Initial Discharge Planning Signed Patient: WASHINGTON SARABIA Medical Record#: [id number] : 1960 Acct:[id number] Age/Sex: 58 / M Admit/Reg Date: 04/20/18 Loc: 3NE. Room: [place] [address] Report Number : [id number]: Sharmin Amanda MD Patient Name: WASHINGTON SARABIA MRN: [id number] Acct Number: [id number] : 1960 Age: 58 Admission Information Patient Type: INPATIENT Admit Date: 04/20/2018 Admit Time: 20:1 5 Admit Reason: CHEST PAIN Unit: 3NE. Bed: [place] [address] Discharge Disposition: Xfer to [facility] 7.Initial Discharge Planning Assessment Created by : Ana alas Date/Time 2018-04-21 14:21:09.000 Initial Discharge Planning Assessment Interviewed:: Patient Prior Functional Status: Independent Have you ever served in the [facility] No Living Situation / Support System: Home less Anticipated Discharge Discussed With: Ally atriley Anticipated Discharge Plan: Psych Facil ity (Inpatient) Note: Patient sleeping at time of CM vi sit, answering CM questions minimally. Patient was on an inpatient Psychiatry floor before being transferred to medicine. Patient's PCP is at [facility]. Per EMR, patient is homeless and patient's Megha peña ([phone]) is listed as patient's contact. Patient will like ly be discharged back to inpatient psych when medically cleared. Will cont inue to follow. Electronically signed by: Ana castillo Electronically signed on: 2018-04-21 Dictated By: Maya Su Signed By: Maya Su 04/21/18 1 423 DD/DT: TD/TT: Gang Punch Operator: [id number] cc: * Radiology Report April 21, 2018 3:56pm Grant Bashir MD [address] [address] Patient Name: WASHINGTON SARABIA rd#: [id number] Address: [address] [place] [address] Account#: [id number] City/State/Zip: [place], [place] [address] : Sharmin Amanda MD Insurance: [facility] [place] /Age/Sex: 1960/58/M Self Pay Admit/Reg Date: 04/20/[address]: Gume Mckeon MD Location: [address] [place], [place] [id number] PCP: Md Jesus Date of Service: 04/20/18 Order (s): XR chest 2V CPT Code: 84922 Report Number: [id number] Reason for Exam: chest pain CHEST (2 views) (60433) History: chest pain Findings: The heart size is within normal limits with a tortuous aorta. The lungs are clear. There is no confluent infiltrate or effusion. There is multilead cardiac pacemaker. IMPRESSION: No acute process seen. No ED interpretation available. Dictated By: Grant Bashir MD 1555 Signed By: Grant Sanchez MD 1556 TD/TT: 04/21/181555Tech: [id number] cc: Germania Mckeon MD; Pcp-Md Renny ; Kylah Amanda MD* ED Discharge Packet January 19, 2019 7:15am Mirella Alicia DO completed [address] [address] [employer] Discharge Packet Signed Patient: Washington Sarabia Medical Record#: [id number] : 1960 Acct:[id number] Age/Sex: 58 / M Admit/Reg Date: 01/18/19 Loc: ED. Room: Report Number: [id number]: Selvin Meza MD Your Discharge Instructions: HEAD INJURY Your Prescriptions: Your Referrals: Dictated By: Mirella Alicia DO Signed By: Mirella Alicia DO 01/19/19 0 730 DD/ 4 TD/TT: 01/19/19714 Gang Punch Operator: Bertha DIAZ cc: * Radiology Report January 19, 2019 8:06am Gaurang Ramos MD co mpleted [address] [address] Patient Name: Washington Sarabia [facility] [place] rd#: [id number] Address: [address] [place] [address] Account#: [id number] City/State/[place] [address]: Selvin Meza MD Insurance: [facility] /Age/Sex: 1960/58/M Self Pay Admit/Reg Date: 01/18/[address]: Dwayne Alicia DO Location: ED.[facility]/ PCP: Pcp-Md Renny Date of Service: 01/19/19 Order (s): CT head/brain wo con CPT Code: 23107 Report Number: [id number] Reason for Exam: abnormal head ct BRAIN CT WITHOUT CONTRAST (68584) TECHNIQUE: Contiguous 5-mm axial images through the head were obtained without intravenous contrast. Automated exposure control and iterative reconstruction techniques were used. HISTORY: Follow-up abnormal brain CT in patient with head trauma. COMPARISON: Correlation made to CT brai n from 6 hours prior. FINDINGS: There is a persistent 8 x 6 mm hyperden sity (HU = 68) seen in relation to the tip of the left anterior horn, unchanged in size and appearance compared to prior study. There is no associated tanya a or mass effect. There is no evidence for intraventricular or subarachnoid hem orrhage. There is mild diffuse involutional ruffin ges and cerebral volume loss. There is no evidence for acute stroke neoplastic mass or raised intracranial pressure. 7 mm retention cyst left maxillary sinu s and partial sclerosis right mastoid air cells as previously described. IMPRESSION: Persistent 8 x 6 mm hypodensity related to the tip of the left anterior horn. Differentials would include a focus of c alcification, hemorrhage and calcified vascular anomaly. If clinically indicate d, delayed [address] or MRI recommended for further evaluation. Agreed with the TRS report. Dictated By: Gaurang Ramos MD 01/19/19805 Signed By: Gaurang Ramos MD 01/19/19 081 1 TD/TT: 01/19/19805Tech: [id number] cc: [email or web address]; [id number]; PCPNO* Selvin Meza MD; Mirella [facility] DO; Pcp-Md Renny Radiology Report January 19, 2019 8:12am Gaurang Ramos MD co mpleted [facility] [address] [place] [address] Patient Name: Washington Sarabia [facility] rd#: [id number] Address: [address] [place] [address] Account#: [id number] City/State/[place]: [place] [address]: Selvin Meza MD Insurance: [facility] /Age/Sex: 1960/58/M Self Pay Admit/Reg Date: 01/18/[address]: Jourdan mckeon MD Location: ED.[facility]/ PCP: Md Jesus Date of Service: 01/18/19 Order (s): CT head/brain wo con CPT Code: 12773 Report Number: [id number] Reason for Exam: HEADACHE S/P HEAD TRAUM A BRAIN CT WITHOUT CONTRAST ([id number]) TECHNIQUE: Contiguous 5-mm axial images through the head were obtained without intravenous contrast. Automated exposure control and iterative reconstruction techniques were used. HISTORY: Headache status post trauma COMPARISON: None FINDINGS: There is an 8 x 5 mm hyperdensity seen in relation to the anterior horn of the left lateral ventricle. There is no asso ciated intraventricular or subarachnoid hemorrhage. There is no associated edema or mass effect. There is mild diffuse microangiopathy a nd cerebral volume loss. There is no acute infarction or raised intracranial pressure. There is a small retention cyst left me sentery sinus and partial opacification of the right ethmoid air cells. The skull vault examination is unremark able. IMPRESSION: Subcentimeter hyperdensity seen in rela tion to the tip of the left anterior horn. Differentials would include small intracerebral bleed, area of calcifications or avascular malformation [address] is recommended for further evaluation. Agreed with the TRS report. Dictated By: Gaurang Ramos MD 01/19/19811 Signed By: Gaurang Ramos MD 01/19/19 8 TD/TT: 01/19/19811Tech: [id number] cc: [email or web address]; PCPNO* Selvin Meza MD; Pcp-Md Renny Radiology Report January 19, 2019 3:06pm Gaurang Ramos MD co mpleted [facility] [address] [place] [address] Patient Name: Washington Sarabia [facility] rd#: [id number] Address: [address] [place] [address] Account#: [id number] City/State/Zip: [place] [address]: Selvin Meza MD Insurance: [facility] /Age/Sex: 1960/58/M Self Pay Admit/Reg Date: 01/18/[address]: Jourdan mckeon MD Location: ED.[facility]/ PCP: PcpMd Alex Date of Service: 01/18/19 Order (s): XR chest 2V CPT Code: 37016 Report Number: [id number] Reason for Exam: CHEST PAIN Exam: XR chest 2V Technique: Frontal view chest. Procedure Date and Time: 01/18/2019 10: 10 PM Indication: CHEST PAIN Comparison: Comparison is made to prior study dated 01/16/2019. Limitations: None Findings: Heart is mildly enlarged. Triple lead p acemaker/AICD is noted in position. The lung is clear without focal active lesion. The osseous examination is normal. IMPRESSION: No acute cardiopulmonary abnormality or change in comparison. A negative chest x-ray does not exclude significant underlying pathology and should not preclude further evaluation w ith CT if clinically warranted. A preliminary read from the ED is not a vailable at the time of this dictation. Dictated By: Gaurang Ramos MD 01/19/19 1506 Signed By: Gaurang Ramos MD 01/19/19 150 7 TD/TT: 01/19/19 1506Tech: [id number] cc: [email or web address]; PCPNO* Selvin Meza MD; Pcp-Md Renny Advance Directives Advance Directive Response Recorded Date/Time Pt has Medical Orders for Life Sustaining Tx No April 21, 2018 12:53am Form (MOLST)? Advance Directives No June 30, 2019 6:0 7am Health Care Proxy No June 30, 2019 6:0 7am Chief Complaint and Reason for Visit Chief Complaint CHEST PAIN R/O AK,PACEMAKER FIRED X3 Reason for Visit Chest pain, rule out acute m yocardial infarction Pacemaker complications Encounters Encounter Location(s) Arrival/Admit Date Discharge/Depart Date Provider(s) Discharged [facility] April 21, 2018 April 21[facility] 2:35[facility] MD [place] Departed [facility] January 18, 2019 January 19, 2019 null Emergency Medical 9:09pm 8:19am Center-Emergency Admitted [facility] June 30, 2019 Gurjit Mendosa Inpatient Medical 3:34am MD [facility] Recent Diagnosis Onset Date Chest pain, rule out acute myocardial infarction Pacemaker complications Assessments Diagnosis Onset Date Resolution Status Chest pain, rule out acute myocardial infarction acute Pacemaker complications acute Functional Status No Functional Status information available Goals Goals may be documented in an alternate section. Mental Status No Mental Status Information Available Medical Equipment No Medical Equipment Information available Insurance Providers Guarantor Washington Sarabia Address [address] [place] [address] Contact Info. Home Phone: Payer Policy Id Coverage Id Subscriber's Subscriber Effective Expi ration Name Id Date Date [facility]ly [facility] [id number] WASHINGTON SARABIA [id number] Care [place] Self Pay Self N/A Social History Smoking Status Status Date of Observation Never smoked tobacco (finding) June 30, 2019 2:30am Observation Status Observation Response Date of Response Lives With Alone January 18, 2019 9 :44pm Living Situation Community Housing June 30, 2019 6:3 0am Assigned Sex Male Vital Signs Vital Reading Result Reference Range Collection Date/ Time Height 175.26 cm June 30, 2019 6:05am Weight 104.32 kg June 30, 2019 6:05am Body Temperature 97.1 [degF] 97.6-99.6 June 29 0 2:05am Heart Rate 77 /min 60-90 June 30, 2019 2:35am Respiratory rate 16 /min 12-24 June 29 0 2:35am Oxygen saturation by Pulse 98 % 95-100 June 30, 2019 2:35am oximetry BP Systolic 104 mm[Hg] 90-140 June 30, 2019 2:40am BP Diastolic 49 mm[Hg] 60-90 June 30, 2019 2:40am BMI (Body Mass Index) 34.0 kg/m2 June 6:05am
--- OUTSIDE RECORDS SUMMARY | 2022-04-07 13:28 | XMS_ITS | Continuity of Care Document ---
:1960 Author Organization [facility] Address [address] [place] [address] Phone Support Name Relationship Address Phone Megha Aguayo Sister 49 [facility] [phone] [place] [address] Pcp-Renny, Primary Care Provider Unavailable Alissa Mckenna Emergency Provider [address] [facility] [place] [address] Gurjit Solomon Admit Provider [address] [facility] [phone] [place] [address] Allergies, Adverse Reactions, Alerts Allergen Type Severity [...] 29, [facility], [address] [facility] Request 2019 7:50am [place] A [address] White Blood Count June 29, 8.7 X10 4.5-11.0 [facility], [address] [place] [address] 2019 2:06am 3/uL [place] A [address]187 Red Blood Count June 29, 4.78 X10 4.00-5.50 [facility], [address] [place] [address] 2019 2:06am 6/uL [place] A [address] Hemoglobin June 29, 12.5 12.0-17.0 [facility], [address] [place] [address] 2019 2:06am g/[place] A [address] Hematocrit June 29, 40.1 % 35.0-50.0 [facility], [address] [place] [address] 2019 2:06am [facility] A 95497 Mean Corpuscular June 29, 83.9 fl 80.0-100.0 [facility], [address] [place] [address] Volume 2019 2:06am [facility] A 16155 Mean Corpuscular June 29, 26.2 pg 27.0-34.0 [facility], [address] [place] [address] Hemoglobin 2020 2:06am [facility] 55309 Mean Corpuscular June 29, 31.2 31.0-36.0 [facility], [address] [place] [address] Hemoglobin Concent 2019 2:06am g/dl [facility] 72625 Red Cell June 29, 13.8 % 11.5-15.0 [facility] Katja [facility], [address] [place] [address] Distribution Width 2019 2:06am [facility] 32666 Platelet Count June 29, 127 X10 150-400 [facility], [address] [place] [address] 2019 2:06am 3/uL [facility] A 52268 Immature June 29, 1.3 % [facility], [address] [place] [address] Granulocyte % 2019 2:06[place] [address] (Auto) Neutrophils (%) June 29, 61.7 % [facility], [address] [place] [address] (Auto) 2019 2:06am [facility] A 14730 Lymphocytes (%) June 29, 20.1 % [facility], [address] [place] [address] (Auto) 2019 2:06am [facility] A 49648 Monocytes (%) June 29, 9.0 % [facility], [address] [place] [address] (Auto) 2019 2:06am [facility] A 66543 Eosinophils (%) June 29, 6.4 % [facility], [address] [place] [address] (Auto) 2019 2:06am [place] M A 24474 Basophils (%) June 29, 1.5 % [facility], [address] [place] [address] (Auto) 2019 2:06am [place] A [address] Immature June 29, 0.11 X10 0.00-0.09 [facility], [address] [place] [address] Granulocyte # 2019 2:06am 3/uL [place] (Auto) Neutrophils # June 29, 5.4 X10 1.5-7.8 [facility], [address] [place] [address] (Auto) 2019 2:06am 3/uL [place] M A [address]83 Lymphocytes # June 29, 1.8 X10 1.0-4.8 [facility], [address] [place] [address] (Auto) 2019 2:06am 3/uL [place] A [address] Monocytes # (Auto) June 29, 0.8 X10 0.0-0.8 [facility], [address] [place] [address] 2019 2:06am 3/uL [place] M A 40315 Eosinophils # June 29, 0.6 X10 0.0-0.5 [facility], [address] [place] [address] (Auto) 2019 2:06am 3/uL [place] A [address] Basophils # (Auto) June 29, 0.1 X10 0.0-0.2 [facility], [address] [place] [address] 2019 2:06am 3/uL [place] A [address]504 Hemoglobin A1c June 29, 6.5 4.3-5.9 [facility], [address] [place] [address] 2019 2:06am [place] A [address]25 Estimated Average June 29, 140 [facility], [address] [place] [address] Glucose (eAG) 2019 2:06am mg/dl [place] on Nucleated Red June 29, 0.0 /100 0.0-0.0 [facility], [address] [place] [address] Blood Cells % 2019 2:06am WBC [place] on Sodium Level June 29, 136 137-146 [facility], [address] [facility] 2020 2:06am mmol/L [facility] A 18031 Potassium Level June 29, 4.4 3.5-5.3 [facility], [address] [facility] 2020 2:06am mmol/L [facility] A 86631 Chloride Level June 29, 99 98-107 [facility], [address] [facility] 2020 2:06am mmol/L [facility] A 84718 Carbon Dioxide June 29, 23 23-32 [facility], [address] [facility] Level 2020 2:06am mmol/L [facility] A 01594 Anion Gap June 29, 14 5-15 [facility], [address] [facility] 2020 2:06am mmol/L [facility] A 72092 Blood Urea June 29, 22 mg/dl 5-25 [facility], [address] [facility] Nitrogen 2019 2:06am [facility] A 73329 Creatinine June 29, 1.3 0.6-1.4 [facility], [address] [place] [address] 2020 2:06am mg/dL [facility] A 35223 Estimated June 29, 74.6 This value [facility], [address] [place] [address] Creatinine 2020 2:06am ml/min is [facility] 97100 Clearance calculated by Cockcroft Gault Equation using ideal body weight. This result is dependent on an accurate patient height and weight which is obtained from patients medical record. Nashcroft, D.W. and M.H. Gault. Prediction of creatinine clearance from serum creatinine. Nephron. 1976. 16(1):31-41 . Estimated GFR June 29, > 60 >60 [facility], [address] [facility] () 2020 2:06[place] [address] Estimated GFR June 29, > 60 >60 [facility], [address] [place] [address] (Non- 2020 2:06[place] [address] Armenian BUN/Creatinine June 29, 16.9 10.0-20.0 [facility], [address] [facility] Ratio 2019 2:06am [place] A 23722 Glucose Level June 29, 172 70-100 [facility], [address] [place] [address] 2019 2:06am mg/dL Kory Mendosa 69972 Calcium Level June 29, 8.4 8.6-10.3 [facility], [address] [place] [address] 2019 2:06am mg/dl Kory Mendosa 12465 Phosphorus Level June 29, 4.1 2.5-4.5 [facility], [address] [place] [address] 2019 2:06am mg/dL Kory Mendosa 90751 Magnesium Level June 29, 1.8 1.8-2.5 [facility], [address] [place] [address] 2019 2:06am mg/dL Kory Mendosa 68963 Total Bilirubin June 29, 0.3 <1.2 [facility], [address] [place] [address] 2019 2:06am mg/dl Kory Mendosa 23048 Direct Bilirubin June 29, < 0.2 <0.5 [facility], [address] [place] [address] 2019 2:06am mg/dl Kory Mendosa 34967 Aspartate Amino June 29, 16 U/L 15-41 [facility], [address] [place] [address] Transf (AST/SGOT) 2019 2:06am Kory VILLALOBOS 79941 Alanine June 29, 14 U/L 14-63 [facility], [address] [place] [address] Aminotransferase 2019 2:06[place] [address] (ALT/SGPT) Creatine Kinase MB June 29, 2.0 0.0-6.0 [facility], [address] [place] [address] 2019 9:50am ng/ml Kory Mendosa 04227 Troponin T June 29, < 0.01 [facility], [address] [place] [address] 2019 9:50am ng/ml Kory Mendosa 56493 Total Protein June 29, 7.0 g/dL 6.4-8.3 [facility], [address] [place] [address] 2019 2:06am Kory Mendosa 48709 Albumin June 29, 4.1 g/dl 4.0-5.0 [facility], [address] [place] [address] 2019 2:06am [facility] A 55683 Albumin/Globulin June 29, 1.4 1.0-2.6 [facility], [address] [place] [address] Ratio 2019 2:06am [facility] A 21776 Triglycerides June 29, 134 <150 <=150 mg/dL [facility], [address] [place] [address] Level 2019 2:06am mg/dL = Desirable [facility] 21230 Cholesterol Level June 29, 177 <200 <200 mg/dL [facility], [address] [place] [address] 2019 2:06am mg/dl = Desirable [facility] 64190 LDL Cholesterol, June 29, 99 mg/dl <130 [facility], [address] [place] [address] Calculated 2019 2:06am [facility] 36206 HDL Cholesterol June 29, 51 mg/dL >40 < 40 mg/dl: [facility], [address] [place] [address] 2019 2:06am Low [facility] A 40715 HDL-cholest enmanuel(major risk factor for CHD)>/= 60 mg/dl: High HDL-cholest enmanuel(negati ve risk factor for CHD)HDL-cho lesterol is affected by a number of factors, e.g., smoking, excercise, hormones, sex and age. Cholesterol Ratio June 29, 1.9 LDL/HDL [facility], [address] [place] [address] (LDL/HDL) 2019 2:06am Interpretat [facility] [address] ion:Ratio Men Women1/2 Average 1.00 1.47Average 3.55 3.222X Average 6.25 5.033X Average 7.99 6.14 Cholesterol/HDL June 29, 3.5 Cholesterol [facility], [address] [place] [address] Ratio 2019 2:06am /HDL [facility] A 58167 Interpretat ion: Ratio Men Women 1/2 Average 3.43 3.27 Average 4.97 4.44 2X Average 9.55 7.05 3X Average 23.39 11.04 Alkaline June 29, 81 U/L 40-129 [facility], [address] [place] [address] Phosphatase 2019 2:06am [facility] 66766 Diagnostic Imaging Reports Report Dictated Date/Time Dictated By Status Communication Report April 21, 2018 1:32pm Service Allscript s completed [address] [address] CDI Assessment Signed Patient: WASHINGTON SARABIA Medical Record#: [id number] : 1960 Acct:[id number] Age/Sex: 58 / M Admit/Reg Date: 04/20/18 Loc: 3NE. Room: [place] [address] Report Number : [id number]: Sharmin Amanda MD PT : WASHINGTON SARABIA : 1960 ACCT: [id number] ADMIT DATE: 04-20-2018 Dictated By: Maya Su Signed By: Maya Su 04/21/18 1 332 DD/ 1332 TD/TT: 04/21/18 133 Instrument Panel Assembler: Maria Elena Peterson cc: * Case Management Initial April 21, 2018 2:23pm Service Allscr ipts completed Assessment [address] [address] Initial Discharge Planning Signed Patient: WASHINGTON SARABIA Medical Record#: [id number] : 1960 Acct:[id number] Age/Sex: 58 / M Admit/Reg Date: 04/20/18 Loc: 3NE. Room: [place] [address] Report Number : [id number]: Sharmin Amanda MD Patient Name: WASHINGTON SARABIA MRN: [id number] Acct Number: [id number] : 1960 Age: 58 Admission Information Patient Type: INPATIENT Admit Date: 04/20/2018 Admit Time: 20:1 5 Admit Reason: CHEST PAIN Unit: 3NE. Bed: [place] [address] Discharge Disposition: Xfer to [facility] 7.Initial Discharge Planning Assessment Created by : Ana alas Date/Time 2018-04-21 14:21:09.000 Initial Discharge Planning Assessment Interviewed:: Patient Prior Functional Status: Independent Have you ever served in the [employer]?: No Living Situation / Support System: Home less Anticipated Discharge Discussed With: P atient Anticipated Discharge Plan: Psych Facil ity (Inpatient) Note: Patient sleeping at time of CM vi sit, answering CM questions minimally. Patient was on an inpatient Psychiatry floor before being transferred to medicine. Patient's PCP is at [facility]. Per EMR, patient is homeless and patient's Megha peña ([phone]) is listed as patient's contact. Patient will like ly be discharged back to inpatient psych when medically cleared. Will cont inue to follow. Electronically signed by: Ana castillo Electronically signed on: 2018-04-21 Dictated By: Maya Su Signed By: Maya Su 04/21/18 1 423 DD/DT: TD/TT: Instrument Panel Assembler: [id number] cc: * Radiology Report April 21, 2018 3:56pm Grant Bashir MD [address] [address] Patient Name: WASHINGTON SARABIA [address]#: [id number] Address: [address] [place] [address] Account#: [id number] City/State/Zip: [place], [place] [address] : Sharmin Amanda MD [facility] /Age/Sex: 1960/58/M Self Pay Admit/Reg Date: 04/20/[address]: Gume Mckeon MD [facility][id number] PCP: Md Jesus Date of Service: 04/20/18 Order (s): XR chest 2V CPT Code: 64501 Report Number: [id number] Reason for Exam: chest pain CHEST (2 views) (08179) History: chest pain Findings: The heart size is within normal limits with a tortuous aorta. The lungs are clear. There is no confluent infiltrate or effusion. There is multilead cardiac pacemaker. IMPRESSION: No acute process seen. No ED interpretation available. Dictated By: Grant Bashir MD 1555 Signed By: Grant Sanchez MD 7 TD/TT: 04/21/18 1556Tech: [id number] cc: Germania Mckeon MD; Md Jesus ; Kylah Amanda MD* Radiology Report June 30, 2019 12:41pm K[place] [address] Patient Name: Washington Sarabia [facility] rd#: [id number] Address: [address] [place] [address] Account#: [id number] City/State/Zip: [place] [address]: Gurjit Solomon MD Insurance: [facility] /Age/Sex: 1960/59/M Self Pay Admit/Reg Date: 06/30/[address]: Kylah Limon MD Location: S6W./[id number] PCP: Md Jesus Date of Service: 06/30/19 Order (s): XR chest 1V portable CPT Code: 59912 Report Number: [id number] Reason for Exam: Chest Pain CLINICAL [...] June 30, 2019 12:53pm Service Allscript s [address] Assessment Note Signed Patient: Washington Sarabia Medical Record#: [id number] : 1960 Acct:[id number] Age/Sex: 59 / M Admit/Reg Date: 06/30/19 Loc: [facility]. Room: [address] Report Number : [id number]: Gurjit Solomon MD Patient Name: Washington Sarabia MRN: [id number] Acct Number: [id number] : 1960 Age: 59 Admission Information Patient Type: INPATIENT OBSERVATION Admit Date: 06/30/2019 Admit Time: 05:5 9 Admit Reason: CHEST PAIN R/O AK,PACEMAK ER FIRED X3 Unit: [address] Bed: [address] Discharge Disposition: Home, Self-Care 3. Case Management Note Created by : Celio Redman Date/Time 06-29 12:52:07.000 Note: reports Pt is medically stable to discharge back to CSS: [facility], [place], [place] today. [facility] requested a copy [...] Maya Su 06/30/19 1 253 DD/DT: TD/TT: Instrument Panel Assembler: [id number] cc: * Advance Directives Advance Directive [...] Location(s) Arrival/Admit Date Discharge/Depart Date Provider(s) Discharged [facility] April 21, 2018 April 21, 2018 [facility] Center-3 1:03am 2:35pm MD [place] [facility]charged [facility] June 30, 2019 June 30, 2019 Cristina monete A Inpatient Medical 5:59am 3:57pm MD Juanito [address] Recent Diagnosis Onset Date Chest pain, [...] You will be discharged back to your [facility] ite. No changes were made to your medication regimen. You were also evaluated by psychiatry an d they do not believe you have any active suicidal ideation. They recommended that you be discharged back to the respite. Please continue taking all your medicati ons as before. You prefer to follow up with cardiology at [facility]. Please call [phone] or [phone] to make an appointment with cardiology at [facility], Dr. Kali Richardson or Dr. Mack [...] Insurance Providers Guarantor Washington Sarabia Address [address] [address] Contact Info. Home Phone: Payer Policy Id Coverage Id Subscriber's Subscriber Effective Expi ration Name Id Date Date [facility] [id number] WASHINGTON SARABIA [id number] Care [place] Self Pay Self N/A Plan of Treatment [...]
--- OUTSIDE RECORDS SUMMARY | 2022-04-07 13:28 | XMS_ITS | Continuity of Care Document ---
:1960 Author Organization [facility] Address [address] [place] [address] Phone Care Team Providers Name Role Phone [...] Chest pain CAD (coronary artery disease ), resighini coronary artery 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 [...] Observat ion Never smoked tobacco (finding) [facility] 2019 6:38am Observation Status Observation Response Date of Response Living Situation Alf November 21, 2021 12 :13pm Living Situation [...] Pulmonary nodule Active CAD (coronary artery disease), resighini coronary artery Active Atypical chest pain Active [...] 12:00am Magnesium Disconti 30 ML PO DAILY [facility] Sept[facility] Hydroxide nued , mike (Milk Of [...] Site Add-On Test December Added test Good [facility] Request 2021 [address] [facility] 1:50am Amity M A 43385 White Blood December 7.2 X10 4.5-11.0 [facility] Count 2021 3/uL [address] [facility] 6:11am Amity M A 86015 White Blood December 6.2 X10 4.5-11.0 [facility] Count 2021 3/uL [address] [facility] 6:27am Amity M A 95217 White Blood Brittany 8.3 X10 4.5-11.0 [facility] Center Count 2021 3/uL [address] [facility] 7:04am Amity M A 74472 White Blood Brittany 6.3 X10 4.5-11.0 [facility] Center Count 2021 3/uL [address] [facility] 9:06am Amity M A 63682 Red Blood Count Brittany 4.53 X10 4.00-5.50 [facility] 2021 6/uL [address] [facility] 6:11am Amity M A 62975 Red Blood Count Brittany 4.02 X10 4.00-5.50 [facility] 2021 6/uL [address] [facility] 6:27am Amity M A 68096 Red Blood Count Brittany 4.49 X10 4.00-5.50 [facility] 2021 6/uL [address] [facility] 7:04am Amity M A 57005 Red Blood Count Brittany 4.41 X10 4.00-5.50 [facility] 2021 6/uL [address] [facility] 9:06am Amity M A 05264 Hemoglobin Brittany 13.7 g/dl 12.0-17.0 [facility] [address] [facility] 6:11am Amity M A 88533 Hemoglobin Brittany 12.5 g/dl 12.0-17.0 [facility] 2021 [address] [facility] 6:27am Amity M A 87815 Hemoglobin Brittany 13.3 g/dl 12.0-17.0 [facility] 2021 [address] [facility] 7:04am Amity M A 29059 Hemoglobin Brittany 13.2 g/dl 12.0-17.0 [facility] 2021 [address] [facility] 9:06am Amity M A 40957 Hematocrit Brittany 41.9 % 35.0-50.0 [facility] 2021 [address] [facility] 6:11am Amity M A 17774 Hematocrit Brittany 37.3 % 35.0-50.0 [facility] [address] 6:27am [facility] A 18881 Hematocrit December 40.8 % 35.0-50.0 [facility] [address] 7:04am [facility] A 19313 Hematocrit December 41.0 % 35.0-50.0 [facility] [address] 9:06am [facility] A 68507 Mean December 92.5 fl 80.0-100.0 [facility] Corpuscular [address] Volume 6:11am [facility] A 70341 Mean December 92.8 fl 80.0-100.0 [facility] Volume 6:27am [facility] A 97822 Mean December 90.9 fl 80.0-100.0 [facility] Corpuscular [address] Volume 7:04am [facility] A 14198 Mean December 93.0 fl 80.0-100.0 [facility] Corpuscular [address] Volume 9:06am [facility] A 63825 Mean December 30.2 pg 27.0-34.0 [facility] Corpuscular [address] Hemoglobin 6:11am [facility] 53869 Mean December 31.1 pg 27.0-34.0 [facility] Corpuscular [address] Hemoglobin 6:27am [facility] 36223 Mean December 29.6 pg 27.0-34.0 [facility] Corpuscular [address] Hemoglobin 7:04am [facility] 91649 Mean December 29.9 pg 27.0-34.0 [facility] Corpuscular [address] Hemoglobin 9:06am [facility] 99133 Mean December 32.7 g/dl 31.0-36.0 [facility] Corpuscular [address] Hemoglobin 6:11am Francesco VILLALOBOS [address] Concent Mean December 33.5 g/dl 31.0-36.0 [facility] Corpuscular [address] Hemoglobin 6:27[place] [address] Concent Mean December 32.6 g/dl 31.0-36.0 [facility] Corpuscular [address] Hemoglobin 7:04am Francesco VILLALOBOS 65281 Concent Mean December 32.2 g/dl 31.0-36.0 [facility] Corpuscular [address] Hemoglobin 9:06am Francesco VILLALOBOS 62997 Concent Red Cell Brittany 12.5 % 11.5-15.0 [facility] Distribution [address] Width 6:11am Amity M A 51369 Red Cell Brittany 12.3 % 11.5-15.0 [facility] Distribution [address] Width 6:27am [place] A [address] Red Cell Brittany 12.4 % 11.5-15.0 [facility] Distribution [address] Width 7:04am Amity M A 74173 Red Cell December 13.0 % 11.5-15.0 [facility] Distribution [address] Width 9:06am Amity [place] A 50961 Platelet Count December 103 X10 150-400 [facility] 2021 3/uL with previous [address] 6:11am results [place] M A 83040 Platelet Count December 90 X10 3/uL 150-400 [facility]rel[facility] 2021 with previous [address] 6:27am results Amity M A 47837 Platelet Count December 101 X10 150-400 [facility] 2021 3/uL [address] 7:04am Amity M A 44697 Platelet Count December 75 X10 3/uL 150-400 [facility] [address] 9:06am Amity M A 86405 Immature Brittany 1.9 % [facility] Granulocyte % [address] (Auto) 6:11am Amity M A 44058 Immature Brittany 3.6 % [facility] Granulocyte % [address] (Auto) 9:28pm Amity M A 50070 Immature Brittany 1.7 % [facility] Granulocyte % [address] (Auto) 2:00pm Amity M A 00446 Neutrophils (%) December 61.5 % [facility] (Auto) [address] 6:11am Amity M A 49818 Neutrophils (%) December Not [facility] (Auto) 2021 Reportable [address] 6:27am Amity M A 18858 Neutrophils (%) December Not [facility] (Auto) 2021 Reportable [address] [facility] 7:04am Amity M A 95220 Neutrophils (%) Brittany 61.5 % [facility] (Auto) [address] 2:00pm Amity M A 26778 Lymphocytes (%) Brittany 19.3 % [facility] (Auto) [address] 6:11am Amity M A 98436 Lymphocytes (%) December Not [facility] (Auto) 2021 Reportable [address] 6:27am Amity M A 73396 Lymphocytes (%) Brittany Not [facility] (Auto) 2021 Reportable [address] [facility] 7:04am Amity M A 31617 Lymphocytes (%) Brittany 18.6 % [facility] (Auto) [address] 2:00pm Amity M A 42445 Monocytes (%) December 10.0 % [facility] (Auto) [address] 6:11am Amity M A 41665 Monocytes (%) December Not [facility] (Auto) 2021 Reportable [address] 6:27am Amity M A 37827 Monocytes (%) December Not [facility] (Auto) 2021 Reportable [address] 7:04am Amity M A 37539 Monocytes (%) Brittany 10.1 % [facility] (Auto) [address] 2:00pm Amity M A 70699 Eosinophils (%) Brittany 6.0 % [facility] (Auto) [address] 6:11am Amity M A 85454 Eosinophils (%) Brittany Not [facility] (Auto) 2021 Reportable [address] 6:27am Amity M A 04027 Eosinophils (%) December Not [facility] (Auto) 2021 Reportable [address] 7:04am Amity M A 64735 Eosinophils (%) Brittany 7.2 % [facility] (Auto) 2021 [address] [facility] [address] 2:00pm Amity M A 21355 Basophils (%) Brittany 1.3 % [facility] (Auto) [address] 6:11am Amity M A 69607 Basophils (%) December Not [facility] (Auto) 2021 Reportable [address] 6:27am Amity M A 68124 Basophils (%) December Not [facility] (Auto) 2021 Reportable [address] 7:04am Amity M A 93229 Basophils (%) December 0.9 % [facility] (Auto) [address] 2:00pm Amity M A 52576 Immature Brittany 0.14 X10 0.00-0.09 [facility] Granulocyte # 2021 3/uL [address] (Auto) 6:11am Amity M A 36737 Immature Brittany 0.28 X10 0.00-0.09 [facility] Granulocyte # 2021 3/uL [address] (Auto) 9:28pm Amity M A 01491 Immature Brittany 0.12 X10 0.00-0.09 [facility] Granulocyte # 2021 3/uL 235 [facility] (Auto) 2:00pm Amity M A 12041 Neutrophils # Brittany 4.4 X10 1.5-7.8 [facility] (Auto) 2021 3/uL [address] [facility] 6:11am Amity M A 17133 Neutrophils # Brittany Not [facility] (Auto) 2021 Reportable [address] [facility] 6:27am Amity M A 61793 Neutrophils # Brittany Not [facility] (Auto) 2021 Reportable 235 [facility] 7:04am Amity M A 56564 Neutrophils # Brittany 4.3 X10 1.5-7.8 [facility] (Auto) 2021 3/uL [address] [facility] 2:00pm Amity M A 44313 Lymphocytes # Brittany 1.4 X10 1.0-4.8 [facility] (Auto) 2021 3/uL [address] [facility] 6:11am Amity M A 83653 Lymphocytes # Brittany Not [facility] (Auto) 2021 Reportable [address] [facility] 6:27am Amity M A 37190 Lymphocytes # Brittany Not [facility] (Auto) [address] [place] [address] 7:04am Amity M A 45767 Lymphocytes # Brittany 1.3 X10 1.0-4.8 [facility] (Auto) 2021 3/uL [address] [facility] 2:00pm Amity M A 05623 Monocytes # Brittany 0.7 X10 0.0-0.8 [facility] (Auto) 2021 3/uL [address] [facility] 6:11am Amity M A 80813 Monocytes # Brittany 0.7 X10 0.0-0.8 [facility] (Auto) 2021 3/uL [address] [facility] 9:28pm Amity M A 80206 Monocytes # Brittany 0.7 X10 0.0-0.8 [facility] (Auto) 2021 3/uL [address] 2:00pm Amity M A 80952 Eosinophils # Brittany 0.4 X10 0.0-0.5 [facility] (Auto) 2021 3/uL [address] 6:11am Amity M A 63425 Eosinophils # Brittany 0.6 X10 0.0-0.5 [facility] (Auto) 2021 3/uL [address] [facility] 9:28pm Amity M A 90229 Eosinophils # Brittany 0.5 X10 0.0-0.5 [facility] (Auto) 2021 3/uL [address] [facility] 2:00pm Amity M A 70363 Basophils # Brittany 0.1 X10 0.0-0.2 [facility] (Auto) 2021 3/uL [address] [facility] 6:11am Amity M A 43498 Basophils # Brittany Not [facility] (Auto) 2021 Reportable [address] [facility] 6:27am Amity M A 36739 Basophils # Brittany Not [facility] (Auto) 2021 Reportable 235 [facility] 7:04am Amity M A 17909 Basophils # Brittany 0.1 X10 0.0-0.2 [facility] (Auto) 2021 3/uL [address] [facility] 2:00pm Amity M A 89644 Neutrophils % Brittany 59 % [facility] (Manual) 2021 [address] [facility] 6:27am Amity M A 13018 Neutrophils % Brittany 51 % [facility] (Manual) 2021 [address] [facility] 7:04am Amity M A 82893 Neutrophils % Brittany 70 % [facility] (Manual) 2021 [address] [facility] 9:06am Amity M A 02138 Band Brittany 1 % 0-6 [facility] Neutrophils % [address] (Manual) 6:27am Amity M A 10547 Band Brittany 2 % 0-6 [facility] Neutrophils % 2021 N [facility] (Manual) 7:04am Amity M A 16346 Lymphocytes % Brittany 19 % [facility] (Manual) 2021 [facility] 6:27am Amity M A 18143 Lymphocytes % Brittany 28 % [facility] (Manual) [address] 7:04am Amity M A 58304 Lymphocytes % Brittany 16 % [facility] (Manual) 2021 [facility] 9:06am Amity M A 09522 Reactive Brittany 1 % [facility] Lymphocytes % 2021 No rth [facility] (Manual) 6:27am Amity M A 52010 Reactive Brittany 2 % [facility] Lymphocytes % 2021 N [facility] (Manual) 7:04am Amity M A 83192 Monocytes % Brittany 8 % [facility] (Manual) 2021 [facility] 6:27am Amity M A 38952 Monocytes % Brittany 13 % [facility] (Manual) 2021 [facility] 7:04am Amity M A 28595 Monocytes % Brittany 5 % [facility] (Manual) 2021 [facility] 9:06am Amity M A 15380 Eosinophils % Brittany 9 % [facility] (Manual) 2021 [facility] 6:27am Amity M A 92820 Eosinophils % Brittany 4 % [facility] (Manual) 2021 [facility] 7:04am Amity M A 18035 Eosinophils % Brittany 9 % [facility] (Manual) 2021 [facility] 9:06am Amity M A 69287 Basophils % Brittany 1 % [facility] (Manual) 2021 [facility] 8:48pm Amity M A 04274 Metamyelocytes Brittany 3 % 0-1 [facility] % (manual) 8th, [address] [place] [address] 6:27am Amity M A 51416 Myelocytes % Brittany 2 % 0-0 [facility] (Manual) [address] [place] [address] 8:48pm Amity M A 24274 Neutrophils # Brittany 3.7 X10 1.5-7.8 [facility] (Manual) 2021 3/uL [address] [place] [address] 6:27am Amity M A 07046 Neutrophils # Brittany 4.4 X10 1.5-7.8 [facility] (Manual) 2021 3/uL [address] [place] [address] 7:04am Amity M A 36341 Neutrophils # Brittany 4.4 X10 1.5-7.8 [facility] (Manual) 2021 3/[address] 9:06am Amity M A 96308 Lymphocytes # Brittany 1.2 X10 1.0-4.8 [facility] (Manual) 2021 3/uL [address] [place] [address] 6:27am Amity M A 12262 Lymphocytes # Brittany 2.5 X10 1.0-4.8 [facility] (Manual) 2021 3/uL [address] [place] [address] 7:04am Amity M A 68469 Lymphocytes # Brittany 1.0 X10 1.0-4.8 [facility] (Manual) 2021 3/uL [address] [place] [address] 9:06am Amity M A 59418 Monocytes # Brittany 0.5 X10 0.0-0.8 [facility] (Manual) 2021 3/uL [address] [place] [address] 6:27am Amity M A 76623 Monocytes # Brittany 1.1 X10 0.0-0.8 [facility] (Manual) 2021 3/uL [address] [place] [address] 7:04am Amity M A 43473 Monocytes # Brittany 0.3 X10 0.0-0.8 [facility] (Manual) 2021 3/uL [address] [place] [address] 9:06am Amity M A 08541 Eosinophils # Brittany 0.6 X10 0.0-0.5 [facility] (Manual) 2021 3/uL [address] 6:27am Amity M A 69306 Eosinophils # Brittany 0.3 X10 0.0-0.5 [facility] (Manual) 2021 3/uL [address] 7:04am Amity M A 65533 Eosinophils # Brittany 0.6 X10 0.0-0.5 [facility] (Manual) 2021 3/uL [address] 9:06am Amity M A 37357 Basophils # Brittany 0.1 X10 0.0-0.2 [facility] (Manual) 2021 3/uL [address] [facility] 8:48pm Amity M A 95732 Platelet Brittany Decreased [facility] Estimate 2021 [address] [facility] 6:27am Amity M A 40731 Platelet Brittany Decreased [facility] Estimate 2021 [address] [facility] 7:04am Amity M A 93866 Platelet Brittany Decreased [facility] Estimate 2021 [address] [facility] 9:06am Amity M A 01607 Red Blood Cell Brittany Normal [facility] Morphology 2021 morphology [address] [facility] [facility] [address] 8:53am Amity M A 09857 Red Blood Cell Brittany Normal [facility] Morphology 2021 morphology [address] [facility] [facility] [address] 7:04am Amity M A 96402 Polychromasia Brittany Slight [facility] [address] 6:27am Amity M A 28786 Hypochromasia Brittany Slight [facility] 2021 [address] [facility] 6:27am Amity M A 86606 Macrocytosis Brittany Slight [facility] [address] 9:06am Amity M A 91914 Ovalocytes Brittany Slight [facility] [address] 6:27am Amity M A 58526 Ovalocytes Brittany Slight [facility] [address] 9:06am Amity M A 37811 Nucleated Red Brittany 0.0 /100 0.0-0.0 [facility] Blood Cells % 2021 [facility] [address] [facility] [address] 6:11am Frances[place] A 49993 Nucleated Red Brittany 0.0 /100 0.0-0.0 [facility] Blood Cells % [address] WBC [address] 6:27am Francesco Perry A 91187 Nucleated Red Brittany 0.0 /100 0.0-0.0 [facility] Blood Cells % 2021 WBC [address] 7:04am Francesco Perry A 18025 Nucleated Red Brittany 0.0 /100 0.0-0.0 [facility] Blood Cells % 2021 WBC [address] [facility] [address] 9:06am [place] A 67303 Urine Color December Yellow Yellow [facility] 2021 235 [facility] 12:23am Francesco [place] A 90464 Urine Clarity December Clear Clear [facility] [address] 12:23am Francesco [place] A 36997 Urine pH December 5.5 5.0-8.0 [facility] 2021 [address] [facility] 12:23am Francesco Perry A 29859 Urine Specific Brittany 1.007 1.005-1.03 [facility] [place] 2021 0 235 [facility] 12:23am Francesco [place] A 67018 Urine Blood December Negative Negative [facility] 2021 mg/dL [address] [facility] 12:23am Francesco Perry A 54460 Urine Protein December Negative Negative [facility] 2021 mg/dL [address] [facility] 12:23am Francesco Perry A 96006 Urine Glucose December Negative Negative [facility] (UA) 2021 mg/dl [address] [facility] 12:23am Francesco Perry A 60169 Urine Ketones December Negative Negative [facility] 2021 mg/dL [address] [facility] 12:23am Francesco Perry A 45270 Urine Nitrate December Negative Negative [facility] [address] 12:23am Amity M A 66546 Urine Bilirubin December Negative Negative [facility] 2021 mg/dL [address] [facility] 12:23am Amity M A 74717 Urine Brittany 0.2 E.U./dL Normal [facility] Urobilinogen 2021 235 [facility] 12:23am Amity M A 38754 Urine Leukocyte December Negative Negative [facility] Esterase 2021 mg/dL [address] [facility] 12:23am Amity M A 78736 Sodium Level December 138 mmol/L 137-146 [facility] 2021 [address] [facility] 6:11am Amity M A 27663 Sodium Level December 143 mmol/L 137-146 [facility] 2021 [address] [facility] 6:27am Amity M A 12214 Sodium Level December 141 mmol/L 137-146 [facility] 2021 [address] [facility] 7:04am Amity M A 46850 Sodium Level December 140 mmol/L 137-146 [facility] 2021 [address] [facility] 9:06am Amity M A 20981 Potassium Level December 4.6 mmol/L 3.5-5.3 Specimen [facility] 2021 hemolyzed, [facility] 6:11am results Amity M A 03230 affected Potassium Level December 4.5 mmol/L 3.5-5.3 [facility] 2021 [address] [facility] 6:27am Amity M A 67936 Potassium Level December 4.3 mmol/L 3.5-5.3 [facility] 2021 [address] [facility] 7:04am Amity M A 42054 Potassium Level December 4.4 mmol/L 3.5-5.3 Specimen [facility] 2021 hemolyzed, 235 [facility] 9:06am results Amity M A 07165 affected Chloride Level December 99 mmol/L 98-107 [facility] 2021 [address] [facility] 6:11am Amity M A 66666 Chloride Level December 103 mmol/L 98-107 [facility] [address] 6:27am Amity M A 21772 Chloride Level December 103 mmol/L 107 [facility] [address] 7:04am Amity M A 76527 Chloride Level December 103 mmol/L 107 [facility] [address] 9:06am Amity M A 57861 Carbon Dioxide December 23 mmol/L [facility] Level 2021 [address] [facility] 6:11am Amity M A 90138 Carbon Dioxide December 29 mmol/L [facility] Level 2021 [address] [facility] 6:27am Amity M A 67003 Carbon Dioxide December 29 mmol/L [facility] Level 2021 [address] [facility] 7:04am Amity M A 86046 Carbon Dioxide December 26 mmol/L [facility] Level 2021 [address] [facility] 9:06am Amity M A 67960 Anion Gap December 16 mmol/L 08-15 [facility] 2021 [address] [facility] 6:11am Amity M A 53637 Anion Gap December 11 mmol/L 08-15 [facility] 2021 [address] [facility] 6:27am Amity M A 44411 Anion Gap December 9 mmol/L 08-15 [facility] [address] 7:04am Amity M A 43400 Anion Gap December 12 mmol/L 08-15 [facility] 2021 [address] [facility] 9:06am Amity M A 73246 Blood Urea December 31 mg/dl 08-25 [facility] Nitrogen [address] 6:11am Amity M A 28219 Blood Urea December 23 mg/dl 08-25 [facility] Nitrogen [address] 6:27am Amity M A 15453 Blood Urea December 22 mg/dl 08-25 [facility] Nitrogen 2021 [address] [facility] 7:04am Amity M A 15336 Blood Urea December 17 mg/dl 5-25 [facility] Nitrogen 2021 [address] [facility] 9:06am Amity M A 26049 Creatinine December 1.3 mg/dL 0.6-1.4 [facility] 2021 [address] [facility] 6:11am Amity M A 63028 Creatinine Brittany 1.2 mg/dL 0.6-1.4 [facility] 2021 [address] [facility] 6:27am Amity M A 16261 Creatinine Brittany 1.1 mg/dL 0.6-1.4 [facility] [address] 7:04am Amity M A 65646 Creatinine December 1.2 mg/dL 0.6-1.4 [facility] 2021 [address] [facility] 9:06am Amity M A 00556 Estimated December 75.2 ml/min This value [facility] Creatinine 2021 is calculated [address] Clearance 6:11am [place] [address] Gault Equation using ideal body weight. This result is dependent on an accurate patient height and weight which is obtained from patients medical record. Cockcroft, D.W. and M.H. Gault. Prediction of creatinine clearance from serum creatinine. Nephron. 1975. 16(1):31-41. Estimated December 81.9 ml/min This value [facility] Creatinine 2021 is calculated [address] Clearance 6:27am [place] [address] Gault Equation using ideal body weight. This result is dependent on an accurate patient height and weight which is obtained from patients medical record. Cockcroft, D.W. and M.H. Gault. Prediction of creatinine clearance from serum creatinine. Nephron. 1975. 16(1):31-41. 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 This result is dependent on an accurate patient height and weight which is obtained from patients medical record. Joey Guzman. and M.H. Gault. Prediction of creatinine clearance from serum creatinine. Nephron. 1976. 16(1):31-41. Estimated GFR December 69 >60 [facility] ( [address] Lebanese) 6:11am Amity M A [address]6442 Estimated GFR December 76 >60 [facility] ( [address] Lebanese) 6:27am Amity M A 38300 Estimated GFR December 85 >60 [facility] ( [address] Lebanese) 7:04am Amity M A 12706 Estimated GFR December 76 >60 [facility] ( [address] Lebanese) 9:06am Amity M A 98383 Estimated GFR December 60 >60 [facility] (Non- [address] Lebanese 6:11am Amity M A 71660 Estimated GFR December 66 >60 [facility] (Non- [address] Lebanese 6:27am Amity M A 59098 Estimated GFR December 73 >60 [facility] (Non- [address] Lebanese 7:04am Amity M A 23970 Estimated GFR December 66 >60 [facility] (Non- [address] Lebanese 9:06am Amity M A 42909 BUN/Creatinine December 23.8 10.0-20.0 [facility] Ratio [address] 6:11am Amity M A 49635 BUN/Creatinine December 19.2 10.0-20.0 [facility] Ratio [address] 6:27am Amity M A 01289 BUN/Creatinine December 20.0 10.0-20.0 [facility] Ratio 2021 [facility] 7:04am Amity M A 48692 BUN/Creatinine December 14.2 10.0-20.0 [facility] Ratio 2021 [facility] 9:06am Amity M A 63496 Glucose Level Brittany 145 mg/dL 70-100 [facility] 2021 [facility] 6:11am Amity M A 39262 Glucose Level Brittany 103 mg/dL 70-100 [facility] 2021 [facility] 6:27am Amity M A 15830 Glucose Level Brittany 131 mg/dL 70-100 [facility] 2021 [facility] 7:04am Amity M A 68003 Glucose Level Brittany 147 mg/dL 70-100 [facility] 2021 [facility] 9:06am Amity M A 19170 Calcium Level Brittany 8.4 mg/dl 8.6-10.3 [facility] 2021 235 [facility] 6:11am Amity M A 02225 Calcium Level Brittany 8.5 mg/dl 8.6-10.3 [facility] 2021 235 [facility] 6:27am Amity M A 43019 Calcium Level Brittany 8.7 mg/dl 8.6-10.3 [facility] 2021 [facility] 7:04am Amity M A 73819 Calcium Level Brittany 8.2 mg/dl 8.6-10.3 [facility] 2021 235 [facility] 9:06am Amity M A 79350 Phosphorus Brittany 4.6 mg/dL 2.5-4.5 [facility] Level 2021 235 [facility] 6:27am Amity M A 15349 Magnesium Level Brittany 1.9 mg/dL 1.8-2.5 [facility] 2021 [facility] 6:27am Amity M A 03626 Magnesium Level Brittany 2.0 mg/dL 1.8-2.5 [facility] 2021 235 [facility] 9:28pm Francesco Perry A 14800 Total Bilirubin November 0.4 mg/dl <1.1 [facility] 2021 235 [facility] 9:49am Francesco Perry A 45361 Total Bilirubin Brittany 0.4 mg/dl <1.1 [facility] 2021 235 [facility] 6:27am Francesco Perry A 49461 Total Bilirubin Brittany 0.4 mg/dl <1.1 [facility] 2021 235 [facility] 2:00pm Francesco Mendosa 44006 Aspartate Amino November 17 U/L [facility] Transf 2021 [facility] (AST/SGOT) 9:49am Francesco VILLALOBOS 30678 Aspartate Amino December 14 U/L [facility] Transf 2021 235 [facility] (AST/SGOT) 6:27am Francesco VILLALOBOS 77471 Aspartate Amino December 13 U/L [facility] Transf 2021 235 [facility] (AST/SGOT) 2:00pm Francesco VILLALOBOS 60286 Alanine November 20 U/L 14 [facility] Aminotransferas 2021 235 [facility] e (ALT/SGPT) 9:49[place] [address] Alanine December 17 U/L [facility] Aminotransferas 2021 235 [facility] e (ALT/SGPT) 6:27[place] [address] Alanine December 13 U/L 63 [facility] Aminotransferas 2021 [facility] e (ALT/SGPT) 2:00pm [place] [address] Troponin T High November 16 ng/L <13 Normal range: Females <9 ng/L [facility] Sensitivity 2021 Males <14 ng/L 2 35 [facility] 1:09pm Francesco Mendosa 20670 Values greater than or equal to 52 [...] ng/L <13 Normal range: Females <9 ng/L [facility] Sensitivity 2021 Males <14 ng/L 23 5 [facility] 12:05am [facility] A 91169 Values greater than or equal to 52 [...] ng/L <13 Normal range: Females <9 ng/L [facility] Sensitivity 2021 Males <14 ng/L 2 35 [facility] 3:55pm Francesco Perry A 93810 Values greater than or equal to 52 [...] ng/L <13 Normal range: Females <9 ng/L [facility] Sensitivity 2021 Males <14 ng/L 2 35 [facility] 8:06pm Francesco Perry A 01166 Values greater than or equal to 52 [...] score for the inpatient setting). Total Protein [facility] 6.7 g/dL 6.4-8.3 [facility] 2021 235 [facility] 9:49am Amity M A 88912 Total Protein December 6.2 g/dL 6.4-8.3 [facility] 2021 235 [facility] 6:27am Amity M A 42089 Total Protein Brittany 6.5 g/dL 6.4-8.3 [facility] 2021 235 [facility] 2:00pm Amity M A 65930 Albumin [facility] 4.3 g/dl 4.0-5.0 [facility] 2021 235 [facility] 9:49am Amity M A 74263 Albumin Brittany 3.7 g/dl 4.0-5.0 [facility] 2021 235 [facility] 6:27am Amity M A 76273 Albumin Brittany 3.8 g/dl 4.0-5.0 [facility] 2021 235 [facility] 2:00pm Amity M A 10908 Albumin/Globuli [facility] 1.8 1.0-2.6 [facility] n Ratio 2021 235 [facility] 9:49am Amity M A 00769 Albumin/Globuli Brittany 1.5 1.0-2.6 [facility] n Ratio 2021 235 [facility] 6:27am Amity M A 01046 Albumin/Globuli Brittany 1.4 1.0-2.6 [facility] n Ratio 2021 235 [facility] 2:00pm Amity M A 06057 Triglycerides December 246 mg/dL <150 200 - 499 [facility] Level 2021 mg/dL = High [address] [facility] [address] 9:06am Amity M A 80171 Cholesterol December 214 mg/dl <199 200-239 mg/dL [facility] Level 2021 = Borderline [address] [facility] [address] [facility] [address] 9:06am Amity M A 45908 LDL December 122 mg/dl <129 [facility] Cholesterol, [address] Calculated 9:06am [facility] 65[address] HDL Cholesterol December 43 mg/dL >40 < 40 mg/d l: Low HDL-cholesterol(major risk factor for CHD) [facility] 2021 >/= 60 mg/dl: High HDL-cholesterol(negative risk factor for CHD) 235 [facility] 9:06am HDL-cholestero l is affected by a number of factors, e.g., smoking, excercise, hormones, sex and age. Francesco VILLALOBOS 29890 Cholesterol Brittany 2.8 LDL/HDL Interpreta tion: [facility] Ratio (LDL/HDL) 2021 Ratio Men Wom en 235 [facility] 9:06am 1/2 Average 1.00 1.4 7 [facility] 42939 Average 3.55 3.22 2X Average 6.25 5.03 3X Average 7.99 6.14 Cholesterol/HDL Brittany 5.0 Cholesterol/HD L Interpretation: [facility] Ratio 2021 Ratio Men Women 23 5 [facility] 9:06am 1/2 Average 3.43 3. 27 [facility] 90605 Average 4.97 4.44 2X Average 9.55 7.0 5 3X Average 23.39 11 .04 Alkaline [facility] 84 U/L 40-129 [facility] Phosphatase 2021 235 [facility] 9:49am Francesco Deondre 51006 Alkaline Brittany 73 U/L 40-129 [facility] Phosphatase 2021 235 [facility] 6:27am Francesco Mendosa 73209 Alkaline Brittany 72 U/L 40-129 [facility] Phosphatase 2021 235 [facility] 2:00pm Francesco Mendosa 27508 Lipase Brittany 30 U/L 13-60 [facility] 2021 235 [facility] 8:48pm Francesco Mendosa 68622 Thyroid Brittany 3.86 uIU/mL 0.34-5.60 [facility] Stimulating 2021 235 [facility] Hormone (TSH) 9:28[place] [address] Bedside Glucose December 181 mg/dl 70-100 NOTE: Any discrepancy between finger stick glucose result [facility] 2021 and patient's clini joanne presentation should be 235 [facility] 11:40am confirmed by the ar boratory. [facility] Bedside Glucose December 121 mg/dl 70-100 NOTE: Any discrepancy between finger stick glucose result [facility] 2021 and patient's clini joanne presentation should be [address] [facility] [address] 10:57am confirmed by the ar boratory. [facility] Bedside Glucose December 256 mg/dl 70-100 NOTE: Any discrepancy between finger stick glucose result [facility] 2021 and patient's clin ical presentation should be 235 [facility] 11:31am confirmed by the ar boratory. [facility] Bedside Glucose December 144 mg/dl 70-100 NOTE: Any discrepancy between finger stick glucose result [facility] 2021 and patient's clin ical presentation should be 235 [facility] 10:28am confirmed by the ar boratory. [facility] Microbiology Results Procedure Source Result Collection Result Result Performin g Date/Time Date/Time Comment Site SARS-CoV-2, Nares, Both December [facility] Influenza & Left & 2021 235 [facility] RSV (PCR) Right 2:18am Francesco Mendosa [address] Diagnostic Imaging Reports Report Dictated Date/Time Dictated By Status Radiology Report December 01, 2021 10:06am Fer Dodge MD compl eted [address] [address] Patient Name: Joaquín Barrientos [facility] rd#: [id number] Address: [address] City/State/Zip: [place] [address]: Prakash Saravia MD Insurance: [facility] /Age/Sex: 1960/61[birth year]M Self Pay Admit/Reg Date: 12/01/[address]: HEAVENLY Montes De Oca Location: ED.GS/ PCP: Pcp-Non Staff, Date of Service: 12/01/21 Order (s): XR chest 2V CPT Code: 14744 Report Number: [id number] Reason for Exam: chest pain Patient [...] Dodge MD 12/01/21 1011 TD/TT: 12/01/21 1006Tech: [facility] cc: LOGEM; PCPNS; RICJACQUELINE* DAKOTA Owen; Prakash Saravia MD; TERESSA CONCEPCION Report Dictated Date/Time Dictated By Status Electrocardiogram December 01, 2021 8:57am Prakash Saravia MD comp [place] [id number] Patient Name: Joaquín Barrientos [facility] rd#: [id number] Address: [address] City/State/Zip: [place] [address]: Sean Salmeron MD Insurance: [facility] /Age/Sex: 1960/61[birth year]M Self Pay Admit/Reg Date: 12/01/[address]: HEAVENLY Montes De Oca [facility] PCP: Pcp-Beba lopes Md Date of Service: 12/01/21 Order (s): EKG ED Electrocardiogram CPT Code: 00578 Report Number: [id number] Reason for Exam: Chest pain CONSIDER ACUTE [facility] ELEVATION [place] Sinus rhythm with borderline 1st degree A-V [...] 2021 10:05am Prakash Saravia MD com pleted [facility] [address] [place] [address] Patient Name: Joaquín Barrientos [facility] [address] rd#: [id number] Address: [address] City/State/Zip: [place] [address]: Sean Salmeron MD Insurance: [facility] /Age/Sex: 1960/61[birth year]M Self Pay Admit/Reg Date: 12/01/[address]: HEAVENLY Montes De Oca Location: [address] [place] [address] PCP: Pcp-Beba lopes Md Date of Service: 12/01/21 Order (s): EKG ED Electrocardiogram CPT Code: 69225 Report Number: [id number] Reason for Exam: CHEST PAIN Sinus rhythm Lead(s) unsuitable for analysis: V3 Right axis deviation Right bundle branch block Dictated By: Prakash Saravia MD 12/01/21 10 05 Signed By: Prakash Saravia MD 12/02/21816 TD/TT: 12/01/21 1005Tech: AMADO cc: LOGEM; PCPNS* DAKOTA Owen; TERESSA RUIZ Report Dictated Date/Time Dictated By Status Radiology Report December 07, 2021 10:53pm Lary Rhodes MD completed [facility] [address] [place] [address] Patient Name: Joaquín Barrientos [facility] [address] rd#: [id number] Address: [address] City/State/Zip: [place] [address]: Harlan Davis DO Insurance: [facility] /Age/Sex: 1960/61[birth year]M Self Pay Admit/Reg Date: 12/07/[address]: DAKOTA Hutchinson Location: ED.GS/ PCP: Lissette Marin Md Date of Service: 12/07/21 Order (s): CT head/brain wo contrast CPT Code: 88905 Report Number: [id number] Reason for Exam: syncope with head [...] Lary Rhodes MD 12/07/21 9 TD/TT: 12/07/212252Tech: [id number] cc: JOSE; VIVEK; ANAM* TERESSA RUIZ; DAKOTA Victor; Phil Davis DO Report Dictated Date/Time Dictated By Status Radiology Report December 07, 2021 10:56pm Lary Rhodes MD completed [address] [address] Patient Name: Joaquín Barrientos rd#: [id number] Address: [facility] 0 City/State/Zip: [place] [address]: Harlan Davis DO Insurance: [facility] /Age/Sex: 1960/61[birth year]M Self Pay Admit/Reg Date: 12/07/[address]: DAKOTA Hutchinson Location: ED.GS/ PCP: Lissette Marin Md Date of Service: 12/07/21 Order (s): CT cervical spine wo contrast CPT Code: 64840 Report Number: [id number] Reason for Exam: pain s/p fall [...] Rhodes MD 12/07/21 230 2 TD/TT: 12/07/212255Tech: [id number] cc: JOSE; VIVEK; ANAM* TERESSA RUIZ; DAKOTA Victor; Phil Davis DO Report Dictated Date/Time Dictated By Status Radiology Report December 08, 2021 7:58am Eduar Rm MD [place] [address] [place] [address] Patient Name: Joaquín Barrientos [facility] rd#: [id number] Address: [address] City/State/Zip: [place] [address]: Jesenia Rivas MD Insurance: [facility] /Age/Sex: 1960/61[birth year]M Self Pay Admit/Reg Date: 12/07/[address]: DAKOTA Hutchinson Location: ./NB785-W PCP: PcpCarla lopes Md Date of Service: 12/07/21 Order (s): CT abdomen pelvis w contrast; CT chest w contrast; CT thoracic spine wo contrast CPT Code: 91425; 42965; 24778 Report Num mike: [id number] Reason for Exam: L sided lower [...] using the independent workstation, performed by the instrument technologist was reviewed. Automated exposure control and [...] manuel of the report. Dictated By: Eduar mR MD 12/08/21 0758 Signed By: Eduar Rm MD 12/08/21826 TD/TT: 12/08/21 0758Tech: [id number] cc: VIVEK; PUNEET MENDIETA* TERESSA RUIZ; Jesenia Rivas MD; DAKOTA Victor Report Dictated Date/Time Dictated By Status Electrocardiogram December 08, 2021 12:11am Warren mendoza MD completed [facility] [address] [place] [address] Patient Name: [facility] rd#: [id number] Address: [address] City/State/Zip: [place] [address]: Jesenia Rivas MD Insurance: [facility] /Age/Sex: 1960/61[birth year]M Self Pay Admit/Reg Date: 12/07/[address]: Juan A garza MD Location: [address] [place] [address] PCP: Pcp-Beba lopes Md Date of Service: 12/08/21 Order (s): EKG Electrocardiogram CPT Code: 39623 Report Number: [id number] Reason for Exam: SYNCOPE SINUS RHYTHM VENTRICULAR PREMATURE COMPLEX FIRST DEGREE AV BLOCK RBBB AND LPFB Summary: Abnormal ECG Dictated By: Warren Espinal MD 10 Signed By: Warren Espinal MD 12/08/21913 TD/TT: 12/08/2110Tech: ALYSHA cc: MONICA; VIVEK* Javy Molina MD; TERESSA RUIZ Report Dictated Date/Time Dictated By Status Radiology Report December 08, 2021 1:51pm Gaurang Ramos MD c ompleted [facility] [address] [place] [address] Patient Name: [place] rd#: [id number] Address: [address] City/State/Zip: [place] [address]: Jesenia Rivas MD Insurance: [facility] /Age/Sex: 1960/61/M Self Pay Admit/Reg Date: 12/08/[address]: Griselda daugherty MD [facility] PCP: PcpCarla lopes Md Date of Service: 12/08/21 Order (s): US venous duplex LE BI CPT Code: 54155 Report Number: [id number] Reason for Exam: Acute PE, question DVT BILATERAL DUPLEX LEG VENOUS ULTRASOUND ( 22087) HISTORY: Acute PE. TECHNIQUE: Examination of the [...] 2021 9:28am Daron Leong MD c ompleted [place] [address] [place] [address] Patient Name: Joaquín Barrientos [facility] rd#: [id number] Address: [address] City/State/Zip: [place] [address]: Jesenia Rivas MD Insurance: [facility] /Age/Sex: 1960/61[birth year]M Self Pay Admit/Reg Date: 12/08/[address]: Griselda daugherty MD Location: 3B./OR911-C PCP: Pcp-Beba lopes Md Date of Service: 12/08/21 Order (s): Echo TTE comp w/dop w contras t CPT Code: C8929 Report Number: [id number] Reason for Exam: Acute pulmonary embolis m Transthoracic Echocardiography Report (T TE) Demographics Patient Name Floyd Yanes Gender Male MR Number [id number] Date of [birth year] Age 61 year (s) Room Number GS351 Height 69 inches Date of study 12/08/2021 Weight 247.01 pounds Referring MD Jesenia Rivas BSA 2.2 6 m^2 MD Erasto Blum MD Interpreting MD Daron Leong MD BMI 3 6.48 kg/m^2 Fellow Caramel Cutter Helper Krys Chen [facility] Conclusions Summary Definity .5mL was [...] By: Daron Leong MD 12/08/21 TD/TT: 12/08/21927Tech: [facility] cc: NATALY; VIVEK; DARRELL* Daron Leong MD; TERESSA RUIZ; Mauro Rivas MD Report Dictated Date/Time Dictated By Status Radiology Report December 11, 2021 10:21am Matt Granger MD co mpleted [address] [address] [place] [address] Patient Name: Joaquín Barrientos [facility] rd#: [id number] Address: [address] City/State/Zip: [place] [address]: Dillon Mcdonald MD Insurance: [facility] /Age/Sex: 1960/61[birth year]M Self Pay Admit/Reg Date: 12/11/[address]: Haris Bradshaw DO Location: ED.INGS/GSSailajaFR-4 PCP: PcpCarla arrington Md Date of Service: 12/10/21 Order (s): XR chest 1V portable CPT Code: 10424 Report Number: [id number] Reason for Exam: Chest Pain XR [...] Granger MD 12/11/21 1025 TD/TT: 12/11/21 1021Tech: [facility] cc: [id number]; [id number]; PCPNS* TERESSA RUIZ; Orlando Dodge; Titus Bradshaw DO Report Dictated Date/Time Dictated By Status Electrocardiogram December 10, 2021 8:49pm Warren Rivas MD co mpleted [address] [address] Patient Name: Joaquín Barrientos [facility] rd#: [id number] Address: [address] City/State/Zip: [place] [address]: Dillon Mcdonald MD Insurance: [facility] /Age/Sex: 1960/61[birth year]M Self Pay Admit/Reg Date: 12/11/[address]: Haris Bradshaw DO Location: ED.INGS/GSX-4 PCP: PcpCarla arrington Md Date of Service: 12/10/21 Order (s): EKG ED Electrocardiogram CPT Code: 20634 Report Number: [id number] Reason for Exam: Chest Pain SINUS [...] 02, 2021 12:06pm Erasto Blum MD completed [place] [address] [place] [address] Patient Name: Joaquín Barrientos [facility] rd#: [id number] Address: [address] City/State/Zip: [place] [address]: Sean Salmeron MD Insurance: [facility] /Age/Sex: 1960/61[birth year]M Self Pay Admit/Reg Date: 12/03/[address]: Orlando Virgen Location: [address] [place] [address] PCP: Pcp-Beba lopes Md Date of Service: 12/02/21 Order (s): Cardiac Cath Order CPT Code: Report Number: [id number] Reason for Exam: CP Cardiac Catheterization and [...] 12, 2021 12:52pm Jagjit Blum MD completed [address] [address] Patient Name: Joaquín Barrientos [facility] rd#: [id number] Address: [facility] 8 City/State/Zip: [place] [address]: Jesenia Rivas MD Insurance: [facility] /Age/Sex: 1960/61[birth year]M Self Pay Admit/Reg Date: 12/11/[address]: Kylah gan MD Location: [address] [place], [place] [address]-D PCP: PcpCarla lopes Md Date of Service: 12/12/21 Order (s): EKG Electrocardiogram CPT Code: 45530 Report Number: [id number] Reason for Exam: ARRTHYMIA Sinus rhythm [...] 29, 2021 5:06pm Desmond Guillermo MD completed [facility] [address] [place] [address] Patient Name: Joaquín Barrientos rd#: [id number] Address: [address] City/State/Zip: [place] Attend ing Dr: Melania Blake MD Insurance: [facility] /Age/Sex: 1960/61[birth year]M Self Pay Admit/Reg Date: 12/29/[address]: Gume Rod MD Location: ED.GS/ PCP: Pcp-Non StaffMd Date of Service: 12/29/21 Order (s): CT head/brain wo contrast CPT Code: 24564 Report Number: [id number] Reason for Exam: severe headache CLINICAL [...] By: Desmond Guillermo MD 12/29/211715 TD/TT: 12/29/211705Tech: [id number] cc: MUREL; PCPNS* Loree Blake MD; TERESSA RUIZ Report Dictated Date/Time Dictated By Status Radiology Report December 29, 2021 5:20pm Desmond Guillermo MD completed [address] [address] [place] [address] Patient Name: Joaquín Barrientos [facility] rd#: [id number] Address: [address] City/State/Zip: [place] [address]: Melania Blake MD Insurance: [facility] /Age/Sex: 1960/61[birth year]M Self Pay Admit/Reg Date: 12/29/[address]: Gume Rod MD Location: ED.GS/ PCP: PcpCarla Marin Md Date of Service: 12/29/21 Order (s): CT angio chest with contrast CPT Code: 91052 Report Number: [id number] Reason for Exam: f/u PE CLINICAL HISTORY:Patient with chest pain . Please follow-up for pulmonary embolus. TECHNIQUE: Axial images through the [facility] st were obtained following the intravenous [...] Desmond Guillermo MD 12/29/21 1734 TD/TT: 12/29/211719Tech: [id number] cc: ARACELI; PCPNS* Loree Blake MD; TERESSA RUIZ Report Dictated Date/Time Dictated By Status Radiology Report December 30, 2021 8:35am Rl Granados MD completed [facility] [address] [place] [address] Patient Name: Joaquín Barrientos [facility] [address] rd#: [id number] Address: [address] City/State/Zip: [place] [address]: Cory Cortez MD Insurance: [facility] /Age/Sex: 1960/61[birth year]M Self Pay Admit/Reg Date: 12/29/[address]: Gume Rod MD Location: ED.INGS/GSXFR-5 PCP: PcpCarla arrington Md Date of Service: 12/29/21 Order (s): XR chest 1V portable CPT Code: 02040 Report Number: [id number] Reason for Exam: Chest Pain Study: [...] By: Rl Granados MD 12/30/2139 TD/TT: 12/30/2135Tech: [facility] cc: [id number]; [id number]; PCPNS* Loree Blake MD; TERESSA RUIZ; Michael Cortze MD Report Dictated Date/Time Dictated By Status Electrocardiogram December 29, 2021 1:42pm Linh Kee completed [facility] [address] [place] [address] Patient Name: Joaquín Barrientos [facility] [address] rd#: [id number] Address: [address] [facility]/Zip: [place] [address]: Cory Cortez MD Insurance: [facility] /Age/Sex: 1960/61[birth year]M Self Pay Admit/Reg Date: 12/30/[address]: Mak Davis DO Location: ED.INGS/EUGENIEX-5 PCP: PcpCarla arrington Md Date of Service: 12/29/21 Order (s): EKG ED Electrocardiogram CPT Code: 49413 Report Number: [id number] Reason for Exam: cp SINUS RHYTHM FIRST DEGREE AV BLOCK RBBB AND LPFB Dictated By: Titus Bradshaw DO 12/29/21 134 Signed By: Titus Bradshaw DO 12/30/21 13 54 TD/TT: 12/29/21 1342Tech: [id number] cc: JOSE; PCPNS* TERESSA RUIZ; Harlan Davis DO Report Dictated Date/Time Dictated By Status Electrocardiogram December 29, 2021 4:41pm Warren Rivas MD c ompleted [address] [address] [place] [address] Patient Name: Joaquín Barrientos [facility] rd#: [id number] Address: [address] [facility]/Zip: [place] [address]: Cory Cortez MD Insurance: [facility] /Age/Sex: 1960/61/M Self Pay Admit/Reg Date: 12/30/[address]: Gume Rod MD Location: ED.INGS/EUGENIEXMANDO5 PCP: PcpCarla arrington Md Date of Service: 12/29/21 Order (s): EKG ED Electrocardiogram CPT Code: 62362 Report Number: [id number] Reason for Exam: Chest pain SINUS [...] Oxygen saturation by Pulse 96 % 95-100 [facility] 2021 7:25am oximetry BP Systolic [...] Oxygen saturation by Pulse 96 % 95-100 [facility] 2021 8:20am oximetry BP Systolic [...] Oxygen saturation by Pulse 96 % 95-100 [facility] 2021 oximetry 10:13am BP Systolic [...] Oxygen saturation by Pulse 97 % 95-100 [facility] 2021 3:45pm oximetry BP Systolic [...] 1:59pm Insurance Providers Guarantor Joaquín Barrientos Address [address] [place] [address] Contact Info. Home Phone: Payer Policy Id Coverage Id Subscriber's Subscriber Effective Expi ration Name Id Date Date [facility] [id number] Joaquín Barrientos [id number] [employer] Medicare A&B [id number] Joaquín Maiert [id number] Self Pay Self N/A Encounters Encounter Location(s) Arrival/Admit Date Discharge/Depart Date Provider(s) Discharged [facility] December 03, December 03, 2021 Luther Salmeron , Inpatient Medical 2021 9:24am 1:31pm Center-3A Discharged [facility] December 08, December 09, 2021 Danay Rice Inpatient Medical 2021 12:49pm 2:05pm , Center-3B Discharged [facility] December 11, December 13, 2021 Griselda gonzalez Inpatient Medical 2021 1:50am 2:25pm MD Rob Center-3B Admitted [facility] December 30, Cory bennett , Inpatient Medical 2021 12:50pm Center-Ed Inpatient Recent Diagnosis Onset Date Atypical [...] disorder Chest pain CAD (coronary artery disease), resighini coronary artery Cardiac defibrillator in situ Essential hypertension Paroxysmal atrial fibrillation Functional Status Observation Response Date Recorded Assistive Devices None December 02, 2021 11:25am Ambulation Tolerance [facility] December 03, 2021 4:07am Date of Last Bowel Movement 12/03/21December 2n d2021 4:07am Oral Care Teeth Brushing December 03, 2021 4:07am Mouth Rinse December 03, 2021 4:07am Assistive Devices None December 30, 2021 3:49pm Assistive Devices None December 08, 2021 9:15am Ambulation Tolerance [facility] December 09, 2021 10:18am Date of Last Bowel Movement 12/09/21December 8t , 2021 10:18am Oral Care Teeth Brushing December 09, 2021 10:18am Assistive Devices None December 12, 2021 1:59pm Ambulation Tolerance [facility] December 13 12:00pm Bathing Type Shower December [...] Chest pain acute CAD (coronary artery disease), resighini coronary chronic artery Cardiac defibrillator in situ [...] Pcp-Md MD TERESSA Lawson Work Phone: [address] [address] TERESSA MERCADANTE Work Phone: [address] [address] TERESSA MERCADANTE Work Phone: [address] [place], [place] [address] 6 Wally S Work Phone: [facility] Urology MD Diana [address], [address] [facility] [address] TERESSA MERCADANTE Work Phone: [address] [place], [place] [address] TERESSA MERCADANTE Work Phone: [address] [place], [place] [address] 6 Future Procedures Procedure Name Scheduled [...] Spiritual Care Consult December 01, 2021 11:47pm Scientific Publications Editor Consult December 01, 2021 11:47pm Cardiology Consult [...] 9:34pm Cardiology Consult December 29, 2021 9:34pm Code Status December 29, 2021 9:34pm EKG PRN for [...] Spiritual Care Consult December 12, 2021 6:52am Scientific Publications Editor Consult December 12, 2021 6:52am Cardiology Consult [...] will need to follow up with your [facility] doctor within 1-2 weeks. Please see the urologist as an outpatien t regarding your prostate. Please refrain from drinking any alcohol . Thank you Patient will be discharged back to [place] detox program. Patient is currently on anticoagulation with Xarelto for recently diagnosed pulmonary embolism. 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 Patient is explained in detail regarding the risks and benefits of anticoagulation therapy. You came in for evaluation of chest pain presumed to be atypical at this point. You will be discharged to detox facility with plan t o complete your treatment program and to take medications as previously prescribed, there has been no medication changes please follow-up with primary automation technologist for restarting anticoagulat ion with Xarelto. Cardiac [...]
--- OUTSIDE RECORDS SUMMARY | 2022-04-07 13:28 | XMS_ITS | Continuity of Care Document ---
:1960 Author Organization [facility] Address [address] [place] [address] Phone Support Name Relationship Address Phone Megha Aguayo Sister [address] [facility] [phone] [place] [address] Pcp-Renny, Primary Care Provider Unavailable Alissa Mckenna Emergency Provider [address] [place] [address] Gurjit Solomon Admit Provider [address] [place] [address] Allergies, Adverse Reactions, Alerts Allergen Type Severity [...] [facility] Request 2019 7:50am [place] [address] White Blood Count June 29, 8.7 X10 4.5-11.0 [facility], [address] [place] [address] 2019 2:06am 3/uL [place] A 64852 Red Blood Count June 29, 4.78 X10 4.00-5.50 [facility] . [facility], [address] [place] [address] 2019 2:06am 6/uL [place] A [address] Hemoglobin June 29, 12.5 12.0-17.0 [facility], [address] [place] [address] 2019 2:06am g/dl [place] M A [address]992 Hematocrit June 29, 40.1 % 35.0-50.0 [facility], [address] [place] [address] 2019 2:06am [facility] A 16123 Mean Corpuscular June 29, 83.9 fl 80.0-100.0 [facility], [address] [place] [address] Volume 2019 2:06am [facility] A 77492 Mean Corpuscular June 29, 26.2 pg 27.0-34.0 [facility], [address] [place] [address] Hemoglobin 2020 2:06am [facility] 50756 Mean Corpuscular June 29, 31.2 31.0-36.0 [facility], [address] [place] [address] Hemoglobin Concent 2019 2:06am g/dl [facility] 80262 Red Cell June 29, 13.8 % 11.5-15.0 [facility] Katja [facility], [address] [place] [address] Distribution Width 2019 2:06am [facility] 17095 Platelet Count June 29, 127 X10 150-400 [facility], [address] [place] [address] 2019 2:06am 3/uL [facility] A 00602 Immature June 29, 1.3 % [facility], [address] [place] [address] Granulocyte % 2019 2:06[place] [address] (Auto) Neutrophils (%) June 29, 61.7 % [facility], [address] [place] [address] (Auto) 2019 2:06am [facility] A 44342 Lymphocytes (%) June 29, 20.1 % [facility], [address] [place] [address] (Auto) 2019 2:06am [facility] A 54841 Monocytes (%) June 29, 9.0 % [facility], [address] [place] [address] (Auto) 2019 2:06am [facility] A 32017 Eosinophils (%) June 29, 6.4 % [facility], [address] [place] [address] (Auto) 2019 2:06am [place] M A 34332 Basophils (%) June 29, 1.5 % [facility], [address] [place] [address] (Auto) 2019 2:06am [place] M A 32618 Immature June 29, 0.11 X10 0.00-0.09 [facility], [address] [place] [address] Granulocyte # 2019 2:06am 3/uL [place] on (Auto) Neutrophils # June 29, 5.4 X10 1.5-7.8 [facility], [address] [place] [address] (Auto) 2019 2:06am 3/uL [place] M A 33920 Lymphocytes # June 29, 1.8 X10 1.0-4.8 [facility], [address] [place] [address] (Auto) 2019 2:06am 3/uL [place] A [address]3776 Monocytes # (Auto) June 29, 0.8 X10 0.0-0.8 [facility], [address] [place] [address] 2019 2:06am 3/uL [place] A 59305 Eosinophils # June 29, 0.6 X10 0.0-0.5 [facility], [address] [place] [address] (Auto) 2019 2:06am 3/uL [place] M A 23688 Basophils # (Auto) June 29, 0.1 X10 0.0-0.2 [facility], [address] [place] [address] 2019 2:06am 3/uL [place] A [address]8315 Hemoglobin A1c June 29, 6.5 4.3-5.9 [facility], [address] [place] [address] 2019 2:06am [place] M A 80120 Estimated Average June 29, 140 [facility], [address] [place] [address] Glucose (eAG) 2019 2:06am mg/dl [place] Nucleated Red June 29, 0.0 /100 0.0-0.0 [facility], [address] [place] [address] Blood Cells % 2019 2:06am WBC [place] on Sodium Level June 29, 136 137-146 [facility], [address] [facility] 2020 2:06am mmol/L [facility] A 16316 Potassium Level June 29, 4.4 3.5-5.3 [facility], [address] [facility] 2020 2:06am mmol/L [facility] A 61957 Chloride Level June 29, 99 98-107 [facility], [address] [facility] 2020 2:06am mmol/L [facility] A 32674 Carbon Dioxide June 29, 23 23-32 [facility], [address] [facility] Level 2020 2:06am mmol/L [facility] A 71371 Anion Gap June 29, 14 5-[address] [facility], [address] [facility] 2020 2:06am mmol/L [facility] A 08520 Blood Urea June 29, 22 mg/dl 5-25 [facility], [address] [facility] Nitrogen 2019 2:06am [facility] A 68599 Creatinine June 29, 1.3 0.6-1.4 [facility], [address] [place] [address] 2020 2:06am mg/dL [facility] A 51236 Estimated June 29, 74.6 This value [facility], [address] [place] [address] Creatinine 2020 2:06am ml/min is [facility] 29100 Clearance calculated by Cockcroft Gault Equation using ideal body weight. This result is dependent on an accurate patient height and weight which is obtained from patients medical record. Nashcroft, D.W. and M.H. Gault. Prediction of creatinine clearance from serum creatinine. Nephron. 1976. 16(1):31-41 . Estimated GFR June 29, > 60 >60 [facility], [address] [facility] () 2020 2:06[place] [address] Estimated GFR June 29, > 60 >60 [facility], [address] [place] [address] (Non- 2020 2:06[place] [address] Nicaraguan BUN/Creatinine June 29, 16.9 10.0-20.0 [facility], [address] [facility] Ratio 2019 2:06am [place] A 41272 Glucose Level June 29, 172 70-100 [facility], [address] [place] [address] 2019 2:06am mg/dL Kory [place] 58[address] Calcium Level June 29, 8.4 8.6-10.3 [facility], [address] [place] [address] 2019 2:06am mg/dl [facility] 34405 Phosphorus Level June 29, 4.1 2.5-4.5 [facility], [address] [place] [address] 2019 2:06am mg/dL [place] 92486 Magnesium Level June 29, 1.8 1.8-2.5 [facility], [address] [place] [address] 2019 2:06am mg/dL [place] 49172 Total Bilirubin June 29, 0.3 <1.2 [facility], [address] [place] [address] 2019 2:06am mg/dl [place] 65574 Direct Bilirubin June 29, < 0.2 <0.5 [facility], [address] [place] [address] 2019 2:06am mg/dl K[place] 45781 Aspartate Amino June 29, 16 U/L 15-41 [facility], [address] [place] [address] Transf (AST/SGOT) 2019 2:06am Kory VILLALOBOS 62346 Alanine June 29, 14 U/L 14-63 [facility], [address] [place] [address] Aminotransferase 2019 2:06[place] [address] (ALT/SGPT) Creatine Kinase MB June 29, 2.0 0.0-6.0 [facility], [address] [place] [address] 2019 9:50am ng/ml [facility] [place] 50428 Troponin T June 29, < 0.01 [facility], [address] [place] [address] 2019 9:50am ng/ml [place] 87506 Total Protein June 29, 7.0 g/dL 6.4-8.3 [facility], [address] [place] [address] 2019 2:06am Kory [place] 25933 Albumin June 29, 4.1 g/dl 4.0-5.0 [facility], [address] [place] [address] 2019 2:06am [facility] A 04814 Albumin/Globulin June 29, 1.4 1.0-2.6 [facility], [address] [place] [address] Ratio 2019 2:06am [facility] A 52275 Triglycerides June 29, 134 <150 <=150 mg/dL [facility], [address] [place] [address] Level 2019 2:06am mg/dL = Desirable [facility] 10223 Cholesterol Level June 29, 177 <200 <200 mg/dL [facility], [address] [place] [address] 2019 2:06am mg/dl = Desirable [facility] 45048 LDL Cholesterol, June 29, 99 mg/dl <130 [facility], [address] [place] [address] Calculated 2019 2:06am [facility] 68236 HDL Cholesterol June 29, 51 mg/dL >40 < 40 mg/dl: [facility], [address] [place] [address] 2019 2:06am Low [facility] A 44764 HDL-cholest enmanuel(major risk factor for CHD)>/= 60 mg/dl: High HDL-cholest enmanuel(negati ve risk factor for CHD)HDL-cho lesterol is affected by a number of factors, e.g., smoking, excercise, hormones, sex and age. Cholesterol Ratio June 29, 1.9 LDL/HDL [facility], [address] [place] [address] (LDL/HDL) 2019 2:06am Interpretat [facility] 38599 ion:Ratio Men Women1/2 Average 1.00 1.47Average 3.55 3.222X Average 6.25 5.033X Average 7.99 6.14 Cholesterol/HDL June 29, 3.5 Cholesterol [facility], [address] [place] [address] Ratio 2019 2:06am /HDL [facility] A 05861 Interpretat ion: Ratio Men Women 1/2 Average 3.43 3.27 Average 4.97 4.44 2X Average 9.55 7.05 3X Average 23.39 11.04 Alkaline June 29, 81 U/L 40-[address] [facility], [address] [place] [address] Phosphatase 2019 2:06am [facility] 70174 Diagnostic Imaging Reports Report Dictated Date/Time Dictated By Status Communication Report April 21, 2018 1:32pm Service Allscript s completed [address] [address] CDI Assessment Signed Patient: WASHINGTON SARABIA Medical Record#: [id number] : 1960 Acct:[id number] Age/Sex: 58 / M Admit/Reg Date: 04/20/18 Loc: 3NE. Room: [place] [address] Report Number : [id number]: Sharmin Amanda MD PT : WASHINGTON SARABIA : 1960 ACCT: [id number] ADMIT DATE: 04-20-2018 Dictated By: Maya Su Signed By: Maya Su 04/21/18 1 332 DD/ 1332 TD/TT: 04/21/18 133 Window And Door Installer: Maria Elena Peterson cc: * Case Management Initial April 21, 2018 2:23pm Service Allscr ipts completed Assessment [address] [address] Initial Discharge Planning Signed Patient: WASHINGTON SARABIA Medical Record#: [id number] : 1960 Acct:[id number] Age/Sex: 58 / M Admit/Reg Date: 04/20/18 Loc: 3NE. Room: [place] [address] Report Number : [id number]: Sharmin Amanda MD Patient Name: WASHINGTON SARABIA MRN: [id number] Acct Number: [id number] : 1960 Age: 58 Admission Information Patient Type: INPATIENT Admit Date: 04/20/2018 Admit Time: 20:1 5 Admit Reason: CHEST PAIN Unit: 3NE. Bed: [place] [address] Discharge Disposition: Xfer to [facility] 7.Initial Discharge Planning Assessment Created by : Ana alas Date/Time 2018-04-21 14:21:09.000 Initial Discharge Planning Assessment Interviewed:: Patient Prior Functional Status: Independent Have you ever served in the [employer]?: No Living Situation / Support System: Home less Anticipated Discharge Discussed With: P atient Anticipated Discharge Plan: Psych Facil ity (Inpatient) Note: Patient sleeping at time of CM vi sit, answering CM questions minimally. Patient was on an inpatient Psychiatry floor before being transferred to medicine. Patient's PCP is at [facility]. Per EMR, patient is homeless and patient's Megha peña ([phone]) is listed as patient's contact. Patient will like ly be discharged back to inpatient psych when medically cleared. Will cont inue to follow. Electronically signed by: Ana castillo Electronically signed on: 2018-04-21 Dictated By: Maya Su Signed By: Maya Su 04/21/18 1 423 DD/DT: TD/TT: Window And Door Installer: [id number] cc: * Radiology Report April 21, 2018 3:56pm Grant Bashir MD [address] [address] Patient Name: WASHINGTON SARABIA [address]#: [id number] Address: [address] [place] [address] Account#: [id number] City/State/Zip: [place], [place] [address] : Sharmin Amanda MD [facility] /Age/Sex: 1960/58/M Self Pay Admit/Reg Date: 04/20/[address]: Gume Mckeon MD Location: [facility][id number] PCP: Md Jesus Date of Service: 04/20/18 Order (s): XR chest 2V CPT Code: 86861 Report Number: [id number] Reason for Exam: chest pain CHEST (2 views) (12169) History: chest pain Findings: The heart size is within normal limits with a tortuous aorta. The lungs are clear. There is no confluent infiltrate or effusion. There is multilead cardiac pacemaker. IMPRESSION: No acute process seen. No ED interpretation available. Dictated By: Grant Bashir MD 1555 Signed By: Grant Sanchez MD 7 TD/TT: 04/21/18 1556Tech: [id number] cc: Germania Mckeon MD; Md Jesus ; Kylah Amanda MD* Radiology Report June 30, 2019 12:41pm [place] [address] Patient Name: Washington Sarabia [facility] rd#: [id number] Address: [address] [place] [address] Account#: [id number] City/State/Zip: [place] [address]: Gurjit Solomon MD Insurance: [facility] /Age/Sex: 1960/59/M Self Pay Admit/Reg Date: 06/30/[address]: Kylah Limon MD Location: S6W./[id number] PCP: Md Jseus Date of Service: 06/30/19 Order (s): XR chest 1V portable CPT Code: 08828 Report Number: [id number] Reason for Exam: Chest Pain CLINICAL [...] June 30, 2019 12:53pm Service Allscript s [address] Assessment Note Signed Patient: Washington Sarabia Medical Record#: [id number] : 1960 Acct:[id number] Age/Sex: 59 / M Admit/Reg Date: 06/30/19 Loc: [facility]. Room: [address] Report Number : [id number]: Gurjit Solomon MD Patient Name: Washington Sarabia MRN: [id number] Acct Number: [id number] : 1960 Age: 59 Admission Information Patient Type: INPATIENT OBSERVATION Admit Date: 06/30/2019 Admit Time: 05:5 9 Admit Reason: CHEST PAIN R/O AK,PACEMAK ER FIRED X3 Unit: [address] Bed: [address] Discharge Disposition: Home, Self-Care 3. Case Management Note Created by : Celio Redman Date/Time 06-29 12:52:07.000 Note: reports Pt is medically stable to discharge back to CSS: [facility], [place], [place] today. [facility] requested a copy [...] Maya Su 06/30/19 1 253 DD/DT: TD/TT: Window And Door Installer: [id number] cc: * Electrocardiogram June 30, 2019 6:45am [place] [address] Patient Name: Washington Sarabia [facility] rd#: [id number] Address: [address] [place] [address] Account#: [id number] City/State/Zip: [place] [address]: Gurjit Solomon MD Insurance: [facility] /Age/Sex: 1960/59/M Self Pay Admit/Reg Date: 06/30/[address]: Nic Barrett, PGY [address] PCP: Md Jesus Date of Service: 06/30/19 Order (s): EKG Electrocardiogram CPT Code: 00617 Report Number: [id number] Reason for Exam: chest pain Sinus rhythm with 1st degree A-V block Rightward axis Right bundle branch block Low QRS voltages in precordial leads Comparison Summary: No serial compariso n made Summary: Abnormal ECG Dictated By: Pal Patterson MD 06/30/19 0 645 Signed By: Pal Patterson MD 07/04/19 1218 TD/TT: 06/30/19 0645Tech: [email or web address] cc: REBECCA; SOREN* PcpMd Alex ; Pal Patterson MD Advance Directives Advance Directive Response Recorded Date/Time [...] Location(s) Arrival/Admit Date Discharge/Depart Date Provider(s) [facility]charged [facility] April 21, 2018 April 21, 2018 José Rodriguez [facility] 1:03am 2:35pm MD Kenneth [facility]charged [facility] June 30, 2019 June 30, 2019 Cristina Mendosa Inpatient Medical 5:59am 3:57pm MD Juanito [address] Recent Diagnosis Onset Date Chest pain, [...] cardiology at [facility]. Please call [phone] or [phone] to make an appointment with cardiology at [...] Insurance Providers Guarantor Washington Sarabia Address [address] [address] Contact Info. Home Phone: Payer Policy Id Coverage Id Subscriber's Subscriber Effective Expi ration Name Id Date Date [facility] [id number] WASHINGTON SARABIA [id number] [facility] Self Pay Self N/A Plan of Treatment Future Tests Future scheduled test information is unavailable Pending Tests Pending diagnostic test information is unavailable Future Visits Future appointment information is unavailable Referrals to Other Providers Reason for Referral Start Provider Provider Contact Provider Address Referral Date Information Pcp-None Future Procedures Future procedure information is [...]
--- OUTSIDE RECORDS SUMMARY | 2022-04-07 13:28 | XMS_ITS | Continuity of Care Document ---
:1960 Author Organization [facility] Address [address] [place] [address] Phone Care Team Providers Name Role Phone [...] Provider MD Hardik Han Other Provider MD Galdino Grant Other Provider MD Zach Rice Attending Provider Chief Complaint and Reason for Visit Chief Complaint CHEST PAIN LOWER LT ABD PAIN CHEST PAIN SYNCOPE Reason for Visit Abdominal pain BPH (benign prostatic hyperp [place]) 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 Chest pain Neck pain Tetralogy of Fallot Essential hypertension Mixed hyperlipidemia Paroxysmal atrial fibrillati on Type 2 diabetes mellitus Atypical chest pain 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 Chest pain Essential hypertension Paroxysmal atrial fibrillati on Alcohol abuse Asthma Obstructive sleep apnea Pulmonary embolism Pulmonary nodule Readmission after hospitaliz ation within last 30 days Syncope Diabetes Allergies, Adverse Reactions, Alerts Allergen Type Severity Reaction Last Updated Verified Status atorvastatin Allergy Unknown Hives December 07, Yes Ac tive 2021 7:44pm peas Allergy Unknown Hives (Green December 07, Yes Ac tive Peas) 2021 7:44pm bee venom protein Allergy Unknown December 07, Yes Active (honey bee) 2021 7:44pm Social History Smoking Status Status Start Date End Date Date of Observat ion Never smoked tobacco (finding) M [facility] 2019 6:38am Observation Status Observation Response Date of Response Living Situation Custodial November 21, 2021 12 :13pm Living Situation [...] QT prolongation Active Seizure Active Syncope Active Tetralogy of Fallot Active Tetralogy of [...] Disconti 1 PUFF INH DAILY Apriluar Propionate nued (Flovent 50 2018, Mcg Diskus) 1:00am 2018 60 PUFF/DISK 2:28am Disk Acetaminophen Disconti 650 MG PO EVERY 6 April nued HOURS 2018 1:00am 11:34a m Lorazepam Disconti 0.5 MG PO DAILY April nued 2018 1:00am 11:30a m Omeprazole Disconti 20 MG [...] 30 MG PO DAILY Novemberem Mononitrate nued 2021, 12:00am 2021 12:22p m Metoprolol Active 100 MG PO DAILY November Succinate 2021 12:00am Olanzapine Active 2.5 MG PO TWICE A DAY November 20, 2021 12:00am Aspirin Disconti 81 MG PO DAILY November, 12:00am 2021 12:22p m Levothyroxine Active 75 MCG PO DAILY@0600 November 20, 2021 12:00am Gabapentin Active 300 MG PO TWICE A DAY November 20, 2021 12:00am Albuterol Active 2 INH INH DAILY November 12:00am Lisinopril Active 2.5 MG PO DAILY November 20, 2021 12:00am Naproxen Disconti 500 MG PO TWICE A DAY November, 12:00am 2021 12:22p m Cyclobenzapri Active 5 MG PO DAILY November 12:00am Trazodone Active 100 MG PO ONCE DAILY November AT BEDTIME 2021 12:00am Melatonin Disconti 5 MG PO ONCE DAILY November AT BEDTIME 2021 12:00am 3:14pm Sennosides Disconti 8.6 MG PO TWICE A DAY November t (Senna) 8.6 , mg Capsule 2021 2021 12:00am 3:28pm Multivitamin Active 1 TAB PO DAILY December 01, 2021 12:00am Metformin Active 500 MG PO TWICE A DAY December 01, 2021 12:00am Diphenhydrami Active 50 MG PO DAILY November Hcl 2021 12:00am Magnesium Active 30 ML [...] 8.6 nued , mike mg capsule 2021 7th, 3:28pm 2021 11:43a m Rivaroxaban Active 0 .ROUTE .COMPLEX 1 Sept t catracho one-15 (Xarelto er 7th, mg tablet Dvt-Pe Treat 2021 twice d aily 30d Start) 15 12:00am for 21 days, mg (42)- 20 then one -20 mg (9) mg tablet Tablets,Dose once da meggan; Pack must take with meal/food Acetaminophen Active 650 MG PO DAILY Sept er , 2021 12:00am Rivaroxaban Active 15 MG PO [...] Comment Site Add-On Test November Added test [facility] Request 2021 [address] [facility] 3:59pm [place] [id number] White Blood November 5.6 X10 4.5-11.0 [facility] Count 2021 3/uL [address] [facility] 8:20am [place] [id number] White Blood November 8.5 X10 4.5-11.0 [facility] Count 2021 3/uL [address] [facility] 9:50pm [place] 06062 White Blood Brittany 7.2 X10 4.5-11.0 [facility] Count 2021 3/uL [address] [facility] 6:11am [place] 41989 White Blood Brittany 6.2 X10 4.5-11.0 [facility] Count 2021 3/uL [address] [facility] 6:27am [place] 29637 Red Blood Count November 3.95 X10 4.00-5.50 [facility] 2021 6/uL [address] [facility] 8:20am [place] 75077 Red Blood Count November 4.46 X10 4.00-5.50 [facility] 2021 6/uL [address] [facility] 9:50pm [place] 56967 Red Blood Count December 4.53 X10 4.00-5.50 [facility] 2021 6/uL [address] [facility] 6:11am [place] 57826 Red Blood Count December 4.02 X10 4.00-5.50 [facility] 8th, 2022 6/uL [address] [facility] 6:27am [place] 69504 Hemoglobin November 12.0 g/dl 12.0-17.0 [facility] 2021 [facility] 8:20am [place] 63959 Hemoglobin November 13.8 g/dl 12.0-17.0 [facility] 2021 [facility] 9:50pm [place] 32707 Hemoglobin December 13.7 g/dl 12.0-17.0 [facility] 2021 [facility] 6:11am [place] 18330 Hemoglobin December 12.5 g/dl 12.0-17.0 [facility] 2021 [facility] 6:27am [place] 33912 Hematocrit November 36.9 % 35.0-50.0 [facility] 2021 [facility] 8:20am [place] 71481 Hematocrit November 41.4 % 35.0-50.0 [facility] 2021 [facility] 9:50pm [place] 84632 Hematocrit December 41.9 % 35.0-50.0 [facility] 2021 [facility] 6:11am [place] 65288 Hematocrit December 37.3 % 35.0-50.0 [facility] 2021 [facility] 6:27am [place] 70210 Mean November 93.4 fl 80.0-100.0 [facility] Corpuscular 2021 [facility] Volume 8:20am [place] 32590 Mean November 92.8 fl 80.0-100.0 [facility] Corpuscular 2021 [facility] Volume 9:50pm [place] 25107 Mean December 92.5 fl 80.0-100.0 [facility] Corpuscular 2021 [facility] Volume 6:11am [place] 59655 Mean December 92.8 fl 80.0-100.0 [facility] Corpuscular [address] Volume 6:27am [facility] A 38091 Mean November 30.4 pg 27.0-34.0 [facility] Corpuscular [address] Hemoglobin 8:20am [facility] 01585 Mean November 30.9 pg 27.0-34.0 [facility] [employer] [address] Hemoglobin 9:50pm [facility] 89844 Mean December 30.2 pg 27.0-34.0 [facility] [employer] [address] Hemoglobin 6:11am [facility] 16805 Mean December 31.1 pg 27.0-34.0 [facility] [employer] [address] Hemoglobin 6:27am [facility] 20104 Mean November 32.5 g/dl 31.0-36.0 [facility] [employer] [address] Hemoglobin 8:20am [facility] 15864 Concent Mean November 33.3 g/dl 31.0-36.0 [facility] [employer] [address] Hemoglobin 9:50pm [facility] 51572 Concent Mean December 32.7 g/dl 31.0-36.0 [facility] [employer] [address] Hemoglobin 6:11am [facility] 26276 Concent Mean December 33.5 g/dl 31.0-36.0 [facility] Corp[employer] [address] Hemoglobin 6:27am [facility] 37989 Concent Red Cell November 12.6 % 11.5-15.0 [facility] Distribution [address] Width 8:20am [facility] 73993 Red Cell November 12.5 % 11.5-15.0 [facility] Distribution [address] Width 9:50pm [facility] 05247 Red Cell December 12.5 % 11.5-15.0 [facility] Distribution [address] Width 6:11am [place] 21018 Red Cell December 12.3 % 11.5-15.0 [facility] Distribution [address] Width 6:27am [place] 24280 Platelet Count November 90 X10 3/uL 150-[facility] [address] 8:20am [place] [address] Platelet Count November 103 X10 150-400 [facility] 2021 3/uL [address] 9:50pm [place] [address]25 Platelet Count December 103 X10 150-400 Correlates [facility] 2021 3/uL with previous [address] 6:11am [place] 47239 Platelet Count December 90 X10 3/uL 150-[address] [facility] 2021 with previous [address] 6:27am [place] 75421 Immature November 1.1 % [facility] Granulocyte % [address] (Auto) 8:20am [place] 80918 Immature November 1.5 % [facility] Granulocyte % [address] (Auto) 9:50pm [place] 19978 Immature December 1.9 % [facility] Granulocyte % [address] (Auto) 6:11am [place] 04015 Neutrophils (%) November 62.7 % [facility] (Auto) [address] 8:20am [place] 84949 Neutrophils (%) November 66.2 % [facility] (Auto) [address] 9:50pm [place] 59811 Neutrophils (%) December 61.5 % [facility] (Auto) [address] 6:11am [place] 56086 Neutrophils (%) December Not [facility] (Auto) 2021 Reportable [address] 6:27am [place] 67563 Lymphocytes (%) November 18.8 % [facility] (Auto) [address] 8:20am [place] 78640 Lymphocytes (%) November 18.0 % [facility] (Auto) 2021 [address] [facility] [facility] 9:50pm [place] 62117 Lymphocytes (%) December 19.3 % [facility] (Auto) 2021 [address] [facility] 6:11am [place] 88051 Lymphocytes (%) December Not [facility] (Auto) 2021 Reportable [address] 6:27am [place] 97759 Monocytes (%) November 9.8 % [facility] (Auto) 2021 [address] 8:20am [place] 56617 Monocytes (%) November 8.7 % [facility] (Auto) 2021 [address] 9:50pm [place] 94602 Monocytes (%) December 10.0 % [facility] (Auto) 2021 [address] [facility] 6:11am [place] 69969 Monocytes (%) December Not [facility] (Auto) 2021 Reportable [address] [facility] [facility] 6:27am [place] 29057 Eosinophils (%) November 6.2 % [facility] (Auto) [address] 8:20am [place] 20877 Eosinophils (%) November 4.2 % [facility] (Auto) [address] 9:50pm [place] 77496 Eosinophils (%) December 6.0 % [facility] (Auto) [address] 6:11am [place] 72617 Eosinophils (%) December Not [facility] (Auto) 2021 Reportable [address] 6:27am [place] 84705 Basophils (%) November 1.4 % [facility] (Auto) [address] 8:20am [place] 75095 Basophils (%) [place] 1.4 % [facility] (Auto) 2021 [address] 9:50pm [place] 59560 Basophils (%) Brittany 1.3 % [facility] (Auto) [address] 6:11am [place] 30496 Basophils (%) Brittany Not [facility] (Auto) 2021 Reportable [address] 6:27am [place] 53329 Immature [place] 0.06 X10 0.00-0.09 [facility] Granulocyte # 2021 3/uL [address] (Auto) 8:20am [place] 02426 Immature [place] 0.13 X10 0.00-0.09 [facility] Granulocyte # 2021 3/uL [address] [facility] [address] (Auto) 9:50pm [place] 52172 Immature Brittany 0.14 X10 0.00-0.09 [facility] Granulocyte # 2021 3/uL [address] (Auto) 6:11am [place] 70703 Neutrophils # [place] 3.5 X10 1.5-7.8 [facility] (Auto) 2021 3/uL [address] [facility] [facility] 8:20am [place] 09770 Neutrophils # [place] 5.6 X10 1.5-7.8 [facility] (Auto) 2021 3/uL [address] 9:50pm [place] 10788 Neutrophils # Brittany 4.4 X10 1.5-7.8 [facility] (Auto) 2021 3/uL [address] 6:11am [place] 64716 Neutrophils # Brittany Not [facility] (Auto) 2021 Reportable [address] 6:27am [place] 01329 Lymphocytes # [place] 1.1 X10 1.0-4.8 [facility] (Auto) 2021 3/uL [address] 8:20am [place] 13960 Lymphocytes # [place] 1.5 X10 1.0-4.8 [facility] (Auto) 2021 3/uL [address] [facility] [facility] 9:50pm [place] 63099 Lymphocytes # Brittany 1.4 X10 1.0-4.8 [facility] (Auto) 2021 3/uL [address] 6:11am [place] 19342 Lymphocytes # Brittany Not [facility] (Auto) 2021 Reportable [address] [facility] 6:27am [place] 98704 Monocytes # [place] 0.6 X10 0.0-0.8 [facility] (Auto) 2021 3/uL [address] 8:20am [place] 13664 Monocytes # [place] 0.7 X10 0.0-0.8 [facility] (Auto) 2021 3/uL [address] 9:50pm [place] 62883 Monocytes # Brittany 0.7 X10 0.0-0.8 [facility] (Auto) 2021 3/uL [address] 6:11am [place] 11136 Eosinophils # [place] 0.4 X10 0.0-0.5 [facility] (Auto) 2021 3/uL [address] 8:20am [place] 22618 Eosinophils # [place] 0.4 X10 0.0-0.5 [facility] (Auto) 2021 3/uL [address] 9:50pm [place] 70896 Eosinophils # Brittany 0.4 X10 0.0-0.5 [facility] (Auto) 2021 3/uL [address] 6:11am [place] 24694 Basophils # [place] 0.1 X10 0.0-0.2 [facility] (Auto) 2021 3/uL [address] 8:20am [place] 23368 Basophils # [place] 0.1 X10 0.0-0.2 [facility] (Auto) 2021 3/uL [address] 9:50pm [place] 83663 Basophils # Brittany 0.1 X10 0.0-0.2 [facility] (Auto) 2021/uL [address] 6:11am [place] 64304 Basophils # Brittany Not [facility] (Auto) 2021 Reportable [address] [facility] 6:27am [place] 99692 Neutrophils % Brittany 59 % [facility] (Manual) [address] 6:27am [place] 66093 Band Brittany 1 % 0-6 [facility] Neutrophils % [address] (Manual) 6:27am [place] 70517 Lymphocytes % Brittany 19 % [facility] (Manual) [address] 6:27am [place] 39962 Reactive Brittany 1 % [facility] Lymphocytes % [address] (Manual) 6:27am [place] 91461 Monocytes % Brittany 8 % [facility] (Manual) [address] 6:27am [place] 69347 Eosinophils % Brittany 9 % [facility] (Manual) [address] 6:27am [place] 37863 Basophils % Brittany 1 % [facility] (Manual) [address] 8:48pm [place] 14557 Metamyelocytes Brittany 3 % 0-1 [facility] % (manual) [address] 6:27am [place] 89970 Myelocytes % Brittany 2 % 0-0 [facility] (Manual) [address] 8:48pm [place] 28106 Neutrophils # Brittany 3.7 X10 1.5-7.8 [facility] (Manual) 2021 3/uL [address] 6:27am [place] 73097 Lymphocytes # Brittany 1.2 X10 1.0-4.8 [facility] (Manual) 2021 3/uL [address] [facility] 6:27am [place] 58941 Monocytes # Brittany 0.5 X10 0.0-0.8 [facility] (Manual) 2021 3/uL [address] [facility] 6:27am [place] 03218 Eosinophils # Brittany 0.6 X10 0.0-0.5 [facility] (Manual) 2021 3/uL [address] [facility] 6:27am [place] 58588 Basophils # Brittany 0.1 X10 0.0-0.2 [facility] (Manual) 2021 3/uL [address] [facility] 8:48pm [place] 54535 Platelet Brittany Decreased [facility] Estimate 2021 [address] [facility] 6:27am [place] 48388 Red Blood Cell December Normal [facility] Morphology [address] [facility] 8:53am [place] 93929 Polychromasia Brittany Slight [facility] 2021 [address] [facility] 6:27am [place] [address] [facility] 2021 [address] [facility] 6:27am [place] 37079 Ovalocytes December Slight [facility] 2021 [address] [facility] 6:27am [place] 18659 Hemoglobin A1c November 6.6 4.3-5.9 [facility] 2021 [address] [facility] 6:10am [place] 34863 Estimated November 143 mg/dl [facility] Average Glucose 2021 [address] [facility] (eAG) 6:10am [place] 85797 Nucleated Red November 0.0 /100 0.0-0.0 [facility] Blood Cells % [address] [facility] 8:20am [place] 50655 Nucleated Red November 0.0 /100 0.0-0.0 [facility] Blood Cells % [address] [facility] 9:50pm [place] 93099 Nucleated Red Brittany 0.0 /100 0.0-0.0 [facility] Blood Cells % 2021 WBC [address] 6:11am [place] 08030 Nucleated Red Brittany 0.0 /100 0.0-0.0 [facility] Blood Cells % 2021 WBC [address] 6:27am [place] 74868 Prothrombin November 11.1 9.3-12.1 [facility] Time 2021 Seconds [address] [facility] 5:31am [place] 70211 Prothromb Time November 1.0 0.9-1.2 Reference Interval is for non-anticoagulated patients. [facility] [employer] 2021 Suggested I NR Therapeutic Range for Vitamin K antogonist therapy: [address] [facility] Ratio 5:31am LEVELS OF [place] 46549 THERAPY INDICATIONS TARGET INR RANGE Standard Dose Venous Thrombosis, 2.0 - 3.0 Atrial Fibrillation , Pulmonary Embolism. High Dose Valvular H eart Disease, 2.5 - 3.5 Mechanical Heart, Intracardiac Thromb osis. Urine Color November Yellow Yellow [facility] 2021 [address] [facility] 10:06pm [place] 68658 Urine Color December Yellow Yellow [facility] 2021 [address] [facility] 12:23am [place] 09434 Urine Clarity November Clear Clear [facility] 2021 [address] [facility] 10:06pm [place] 67359 Urine Clarity December Clear Clear [facility] 2021 [address] [facility] 12:23am [place] 53138 Urine pH November 5.5 5.0-8.0 [facility] 2021 [address] [facility] 10:06pm [place] 87000 Urine pH December 5.5 5.0-8.0 [facility] 2021 [address] [facility] 12:23am [place] 51013 Urine Specific [place] 1.013 1.005-1.03 [facility] [place] 2021 [address] 10:06pm [place] 94155 Urine Specific Brittany 1.007 1.005-1.03 [facility] [place] 2021 [address] 12:23am [place] 77396 Urine Blood November Negative Negative [facility] 2021 mg/dL [address] 10:06pm [place] 44615 Urine Blood Brittany Negative Negative [facility] 2021 mg/dL [address] 12:23am [place] 56109 Urine Protein November Negative [address] [facility] 2021 mg/dL [address] 10:06pm [place] 35703 Urine Protein Brittany Negative Negative [facility] 2021 mg/dL [address] 12:23am [place] 52622 Urine Glucose November Negative [address] [facility] () 2021 mg/dl [address] 10:06pm [place] 84383 Urine Glucose Brittany Negative Negative [facility] () 2021 mg/dl [address] 12:23am [place] 91682 Urine Ketones November Negative [address] [facility] 2021 mg/dL [address] 10:06pm [place] 89704 Urine Ketones Brittany Negative Negative [facility] 2021 mg/dL [address] 12:23am [place] 41566 Urine Nitrate November Negative [address] [facility] [address] 10:06pm [place] 90460 Urine Nitrate December Negative Negative [facility] [address] 12:23am [place] 18188 Urine Bilirubin [place] Negative Negative [facility] 2021 mg/dL [address] 10:06pm [place] 08447 Urine Bilirubin Brittany Negative Negative [facility] 2021 mg/dL [address] 12:23am [place] 06369 Urine [place] 0.2 E.U./dL Normal [facility] Urobilinogen [address] 10:06pm [place] 69676 Urine December 0.2 E.U./dL Normal [facility] Urobilinogen 2021 235 [facility] 12:23am [place] 10589 Urine Leukocyte November Negative Negative [facility] Esterase 2021 mg/dL [address] [facility] 10:06pm [place] 50554 Urine Leukocyte December Negative Negative [facility] Esterase 2021 mg/dL [address] [facility] 12:23am [place] 14707 Sodium Level November 141 mmol/L 137-146 [facility] 2021 235 [facility] 6:10am [place] 28773 Sodium Level November 137 mmol/L 137-146 [facility] 2021 235 [facility] 9:50pm [place] 83314 Sodium Level December 138 mmol/L 137-146 [facility] 2021 235 [facility] 6:11am [place] 19850 Sodium Level December 143 mmol/L 137-146 [facility] 2021 [address] [facility] 6:27am [place] 47125 Potassium Level November 4.2 mmol/L 3.5-5.3 [facility] 2021 235 [facility] 6:10am [place] 45054 Potassium Level November 4.7 mmol/L 3.5-5.3 Specimen [facility] 2021 hemolyzed, 235 [facility] 9:50pm results [place] 53978 affected Potassium Level December 4.6 mmol/L 3.5-5.3 Specimen [facility] 2021 hemolyzed, [address] [facility] 6:11am results [place] 53063 affected Potassium Level December 4.5 mmol/L 3.5-5.3 [facility] 2021 [address] [facility] 6:27am [place] 64728 Chloride Level November 102 mmol/L 98-107 [facility] 2021 [address] [facility] 6:10am [place] 33320 Chloride Level November 99 mmol/L 98-107 [facility] [address] 9:50pm [place] 86278 Chloride Level December 99 mmol/L 98107 [facility] [address] 6:11am [place] 83001 Chloride Level December 103 mmol/L [facility] [address] 6:27am [place] [address] Carbon Dioxide November 26 mmol/L [facility] Level 2021 235 [facility] 6:10am [place] A [address] Carbon Dioxide November 27 mmol/L [facility] Level 2021 235 [facility] 9:50pm [place] A [address] Carbon Dioxide December 23 mmol/L [facility] Level 2021 235 [facility] 6:11am [place] A [address]40 Carbon Dioxide December 29 mmol/L [facility] Level 2021 235 [facility] 6:27am [place] A 16599 Anion Gap November 13 mmol/L 08-15 [facility] 2021 235 [facility] 6:10am [place] A 76190 Anion Gap November 11 mmol/L 08-15 [facility] 2021 235 [facility] 9:50pm [place] 50985 Anion Gap December 16 mmol/L 08-15 [facility] 2021 235 [facility] 6:11am [place] [address]78 Anion Gap December 11 mmol/L 08-15 [facility] 2021 235 [facility] 6:27am [place] 15398 Blood Urea November 16 mg/dl 08-25 [facility] Nitrogen 2021 235 [facility] 6:10am [place] [address]64 Blood Urea November 22 mg/dl 08-25 [facility] Nitrogen 2021 235 [facility] 9:50pm [place] A [address]211 Blood Urea December 31 mg/dl 08-25 [facility] Nitrogen 2021 235 [facility] 6:11am [place] A [address]278 Blood Urea December 23 mg/dl 08-25 [facility] Nitrogen [address] 6:27am [place] [address] Creatinine November 1.1 mg/dL 0.6-1.4 [facility] [address] 6:10am [place] [address] Creatinine November 1.3 mg/dL 0.6-1.4 [facility] [address] 9:50pm [place] [address]486 Creatinine December 1.3 mg/dL 0.6-1.4 [facility] [address] 6:11am [place] A [address]89 Creatinine December 1.2 mg/dL 0.6-1.4 [facility] 2021 235 [facility] 6:27am [place] A 18082 Estimated November 74.7 ml/min This value [facility] Creatinine 2021 is calculated [address] Clearance 6:10am [place] [address] Gault Equation using ideal body weight. This result is dependent on an accurate patient height and weight which is obtained from patients medical record. Cockcroft, D.W. and M.H. Gault. Prediction of creatinine clearance from serum creatinine. Nephron. 1975. 16(1):31-41. Estimated November 74.4 ml/min This value [facility] Creatinine 2021 is calculated [address] Clearance 9:50pm [place] [address] Gault Equation using ideal body weight. This result is dependent on an accurate patient height and weight which is obtained from patients medical record. Cockcroft, D.W. and M.H. Gault. Prediction of creatinine clearance from serum creatinine. Nephron. 1975. 16(1):31-41. Estimated December 75.2 ml/min This value [facility] Creatinine 2021 is calculated [address] Clearance 6:11am [place] [address] Gault Equation using ideal body weight. This result is dependent on an accurate patient height and weight which is obtained from patients medical record. Cockcroft, D.W. and M.H. Gault. Prediction of creatinine clearance from serum creatinine. Nephron. 1975. 16(1):31-41. Estimated December 81.9 ml/min This value [facility] Creatinine 2021 is calculated [address] Clearance 6:27am [place] [address] Gault Equation using ideal body weight. This result is dependent on an accurate patient height and weight which is obtained from patients medical record. Cockcroft, D.W. and M.H. Gault. Prediction of creatinine clearance from serum creatinine. Nephron. 1975. 16(1):31-41. Estimated GFR November 85 >60 [facility] ( [address] [place]) 6:10am [place] A [address]126 Estimated GFR November 69 >60 [facility] ( [address] [place]) 9:50pm [place] [address]142 Estimated GFR December [address] >60 [facility] ( [address] [place]) 6:11am [place] A 10050 Estimated GFR December 76 >60 [facility] ( [address] [place]) 6:27am [place] [address]309 Estimated GFR November 73 >60 [facility] (Non- [address] [place] 6:10am [place] A [address]907 Estimated GFR November [address] [facility] (Non- [address] [place] 9:50pm [place] A [address]92 Estimated GFR December [address] [facility] (Non- [address] [place] 6:11am [place] A [address]6790 Estimated GFR December 66 >60 [facility] (Non- 2021 235 [facility] 6:27am [place] A [address]757 BUN/Creatinine November 14.5 10.0-20.0 [facility] Ratio 2021 [facility] 6:10am [place] A [address]106 BUN/Creatinine November 16.9 10.0-20.0 [facility] Ratio 2021 [facility] 9:50pm [place] A 11294 BUN/Creatinine December 23.8 10.0-20.0 [facility] Ratio 2021 [facility] 6:11am [place] A 41582 BUN/Creatinine December 19.2 10.0-20.0 [facility] Ratio 2021 [facility] 6:27am [place] A 36643 Glucose Level November 106 mg/dL 70-100 [facility] 2021 [facility] 6:10am [place] A 52086 Glucose Level November 226 mg/dL 70-100 [facility] 2021 [facility] 9:50pm [place] A 26968 Glucose Level December 145 mg/dL 70-100 [facility] 2021 [facility] 6:11am [place] A 37249 Glucose Level December 103 mg/dL 70-100 [facility] 2021 [facility] 6:27am [place] 63192 Calcium Level November 8.6 mg/dl 8.6-10.3 [facility] 2021 235 [facility] 6:10am [place] A [address]1008 Calcium Level November 8.8 mg/dl 8.6-10.3 [facility] 2021 [facility] 9:50pm [place] 47363 Calcium Level December 8.4 mg/dl 8.6-10.3 [facility] 2021 235 [facility] 6:11am [place] A 17422 Calcium Level December 8.5 mg/dl 8.6-10.3 [facility] 2021 235 [facility] 6:27am [place] [address]408 Phosphorus Brittany 4.6 mg/dL 2.5-4.5 [facility] Level 2021 235 [facility] 6:27am [place] [address]183 Magnesium Level December 1.9 mg/dL 1.8-2.5 [facility] 2021 235 [facility] 6:27am [place] A [address] Total Bilirubin November 0.3 mg/dl <1.1 [facility] 2021 [facility] 9:50pm [place] [address] Total Bilirubin November 0.4 mg/dl <1.1 [facility] 2021 [facility] 9:49am [place] [address] Total Bilirubin December 0.4 mg/dl <1.1 [facility] 2021 [facility] 6:27am [place] [address] Aspartate Amino [place] 16 U/L [facility] Transf 2021 [facility] (AST/SGOT) 9:50pm [place] [address] Aspartate Amino [place] 17 U/L [facility] Transf 2021 [facility] (AST/SGOT) 9:49am [place] 585[address] Aspartate Amino Brittany 14 U/L [facility] Transf 2021 235 [facility] (AST/SGOT) 6:27am [place] 135[address] Alanine November 18 U/L 14 [facility] Aminotransferas 2021 [facility] e (ALT/SGPT) 9:50[place] [address] Alanine [place] 20 U/L [facility] Aminotransferas 2021 [facility] e (ALT/SGPT) 9:49am [place] [address] Alanine Brittany 17 U/L [facility] Aminotransferas 2021 235 [facility] e (ALT/SGPT) 6:27[place] [address] Troponin T High [place] 13 ng/L <13 Normal range: Females <9 ng/L [facility] Sensitivity 2021 Males <14 ng/L 2 35 [facility] 12:10am [place] A [address]2837 Values greater than or equal to 52 [...] ng/L <13 Normal range: Females <9 ng/L [facility] Sensitivity 2021 Males <14 ng/L 2 35 [facility] 1:09pm [place] A [address]2677 Values greater than or equal to 52 [...] the inpatient setting). Troponin T High December 10 ng/L <13 Normal range: Females <9 ng/L [facility] Sensitivity 2021 Males <14 ng/L 23 5 [facility] 12:05am [place] A [address]642 Values greater than or equal to 52 [...] setting). Total Protein November 6.7 g/dL 6.4-8.3 [facility] 2021 [facility] 9:50pm [place] A 84[address] Total Protein November 6.7 g/dL 6.4-8.3 [facility] 2021 235 [facility] 9:49am [place] 33816 Total Protein December 6.2 g/dL 6.4-8.3 [facility] 2021 235 [facility] 6:27am [place] [address]83 Albumin November 4.0 g/dl 4.0-5.0 [facility] 2021 235 [facility] 9:50pm [place] 23951 Albumin November 4.3 g/dl 4.0-5.0 [facility] 2021 235 [facility] 9:49am [place] 68698 Albumin Brittany 3.7 g/dl 4.0-5.0 [facility] 2021 235 [facility] 6:27am [place] A 00598 Albumin/Globuli [place] 1.5 1.0-2.6 [facility] n Ratio 2021 235 [facility] 9:50pm [place] A 46838 Albumin/Globuli November 1.8 1.0-2.6 [facility] n Ratio 2021 235 [facility] 9:49am [place] A 00849 Albumin/Globuli Brittany 1.5 1.0-2.6 [facility] n Ratio 2021 235 [facility] 6:27am [place] 08642 Alkaline November 93 U/L 40-129 [facility] Phosphatase 2021 235 [facility] 9:50pm [place] [address] Alkaline November 84 U/L 40-129 [facility] Phosphatase 2021 235 [facility] 9:49am [place] A 18567 Alkaline December 73 U/L 40-129 [facility] Phosphatase [address] [facility] 6:27am [place] A [address]23 Lipase November 36 U/L 13-60 [facility] 2021 235 [facility] 9:50pm [place] A [address]8822 Lipase Brittany 30 U/L 13-60 [facility] 2021 235 [facility] 8:48pm [place] A 21831 Prostate November 0.63 ng/ml <3.09 [facility] Clinical Labs Specific [address] Antigen 12:10am [facility] [address] Thyroid November 4.83 uIU/mL 0.34-5.60 [facility] Stimulating 2021 235 [facility] Hormone (TSH) 8:20am [place] [address] Bedside Glucose November 165 mg/dl 70-100 NOTE: Any discrepancy between finger stick glucose result [facility] 2021 and patient's clin ical presentation should be 235 [facility] 11:31am confirmed by the [facility]. [facility] [address] Bedside Glucose December 181 mg/dl 70-100 NOTE: Any discrepancy between finger stick glucose result [facility] 2021 and patient's clini joanne presentation should be 235 [facility] 11:40am confirmed by the [facility]. [facility] [address] Bedside Glucose December 121 mg/dl 70-100 NOTE: Any discrepancy between finger stick glucose result [facility] 2021 and patient's clini joanne presentation should be 235 [facility] 10:57am confirmed by the [facility]. [facility] [address] Microbiology Results Procedure Source Result Collection Result Result Performin g Date/Time Date/Time Comment Site SARS-CoV-2, Nares, Both November 23 Goo d [facility] Influenza & Left & 2021 1:56pm 235 [address] [facility] RSV (PCR) Right [facility] [address] SARS-CoV-2, Nares, Both December [facility] Influenza & Left & 2021 [address] [facility] RSV (PCR) Right 2:18am [facility] [address] Diagnostic Imaging Reports Report Dictated Date/Time Dictated By Status Radiology Report November 20, 2021 9:08am Deniz Silva MD comp [facility] [address] [place] [address] Patient Name: Joaquín Barrientos [facility] rd#: [id number] Address: [address] [place] [address] City/State/Zip: [place] [address]: Ethan Washington MD Insurance: [facility] /Age/Sex: 1960/61/M Self Pay Admit/Reg Date: 11/20/[address]: Haris Bradshaw DO Location: ED.[facility]/GSXFR-7 PCP: PcpMd MELANIE Johnson Date of Service: 11/20/21 Order (s): XR chest 2V CPT Code: 18321 Report Number: [id number] Reason for Exam: Chest Pain EXAM: [...] Silva MD 11/20/21 0913 TD/TT: 11/20/21 0908Tech: [facility] cc: TASHA; TIA; CRYSTAL Lee MD; Cathleen Washington MD; Vince Bradshaw DO Report Dictated Date/Time Dictated By Status Electrocardiogram November 20, 2021 Warren Rivas MD completed [facility] [address] [place], [place] [address] [facility] [id number] Address: [address] [place] [address] City/State/Zip: [place] [address]: Ethan Washington MD Insurance: [facility] /Age/Sex: 1960/61[birth year]M Self Pay Admit/Reg Date: 11/20/[address]: Haris Bradshaw DO [facility] PCP: Md MELANIE Lee Date of Service: 11/20/21 Order (s): EKG ED Electrocardiogram CPT Code: 76061 Report Number: [id number] Reason for Exam: Chest Pain SINUS RHYTHM RIGHT BUNDLE BRANCH BLOCK LEFT POSTERIOR FASCICULAR BLOCK Dictated By: Warren Rivas MD 11/20/21 Signed By: Warren Rivas MD 11/20/21 1442 TD/TT: 11/20/21 1441Tech: cc: TASHA; CRYSTAL Lee MD; Titus Bradshaw DO Report Dictated Date/Time Dictated By Status Radiology Report November 20, 2021 1:35pm Titus Martinez MD compl eted [facility] [address] [place] [address] Patient Name: Joaquín Barrientos [facility] rd#: [id number] Address: [address] [place] [address] City/State/Zip: [place] [address]: Ethan Washington MD Insurance: [facility] /Age/Sex: 1960/61/M Self Pay Admit/Reg Date: 11/20/[address]: Caio Washington MD; Michael Shannon [facility] Location: ED.[facility]/GSXFR-7 PCP: PcpMd MELANIE Johnson Date of Service: 11/20/21 Order (s): CT abd pelvis wo/w contrast; CT cervical spine wo contrast CPT Code: 54852; 67970 Report Number: [id number] Reason for Exam: hx cervical fracture in past. neck pain PROCEDURE: CERVICAL SPINE CT HISTORY: Neck pain. History of cervical fracture. COMPARISON: None TECHNIQUE: Noncontrast CT of the cervic al spine.Multiplanar imaging was reviewed. CT technique involves the adju stment of the mA and/or kV according to patient size. MIPS Measure #361 Patient Exposure to Ionizing Radiation was submitted to [employer] (ACR) [place] onal Data [...] to [employer] (ACR) [facility] Radiology Data Registry (NRDR) and MIPS Measure [...] Martinez MD 11/20/21 1452 TD/TT: 11/20/21 1335Tech: [id number] cc: TIA; DEANNE; CRYSTAL Lee MD; Cathleen Washington MD; Ceferino Shannon, PAC Report Dictated Date/Time Dictated By Status Radiology Report November 21, 2021 4:29pm Fer Lopez MD com [address] [id number] Patient Name: Joaquín Barrientos [facility] rd#: [id number] Address: [address] [place] [address] City/State/Zip: [place] [address]: Ethan Washington MD Insurance: [facility] /Age/Sex: 1960/61/M Self Pay Admit/Reg Date: 11/21/[address]: Caio Washington MD Location: .[place] [id number] PCP: Md MELANIE Lee Date of Service: 11/21/21 Order (s): US bladder CPT Code: 21870 Report Number: [id number] Reason for Exam: possible tumor per [...] November 22, 2021 5:27pm Eduar Rm MD [place] [id number] Patient Name: Joaquín Barrientos rd#: [id number] Address: [address] [place] [address] City/State/Zip: [place] [address]: Ethan Washington MD Insurance: [facility] /Age/Sex: 1960/61/M Self Pay Admit/Reg Date: 11/21/[address]: Caio Washington MD Location: 3A./[id number]-F PCP: Md MELANIE Lee Date of Service: 11/22/21 Order (s): NM bone scan whole body CPT Code: 02252 Report Number: [id number] Reason for Exam: c2 fracture THREE [...] By: Eduar Rm MD 11/22/211736 TD/TT: 11/22/211726Tech: [facility] cc: HRSSPETE; PCPNO* Pcp-MD Renny; Cathleen Washington MD Report Dictated Date/Time Dictated By Status Electrocardiogram November 20, 2021 1:40am Jagjit Blum MD [facility] [address] [place] [address] Patient Name: Joaquín Barrientos [facility] rd#: [id number] Address: [address] [place] [address] City/State/Zip: [place] [address]: Ethan Washington MD Insurance: [facility] /Age/Sex: 1960/61[birth year]M Self Pay Admit/Reg Date: 11/21/[address]: Olga Azul Location: 3A./FD878-J PCP: Md MELANIE Lee Date of Service: 11/20/21 Order (s): EKG ED Electrocardiogram CPT Code: 26017 Report Number: [id number] Reason for Exam: CP Sinus rhythm [...] November 21, 2021 6:26pm Jagjit Blum MD [address] [address] Patient Name: Joaquín Barrientos [facility] rd#: [id number] Address: [address] [place] [address] City/State/Zip: [place] [address]: Ethan Washington MD Insurance: [facility] /Age/Sex: 1960/61/M Self Pay Admit/Reg Date: 11/21/[address]: Caio Washington MD [facility] PCP: Md MELANIE Lee Date of Service: 11/21/21 Order (s): EKG Electrocardiogram CPT Code: 06236 Report Number: [id number] Reason for Exam: CP Sinus rhythm with 1st degree A-V block Rightward axis Right bundle branch block Left posterior fascicular block Low QRS voltages in precordial leads Dictated By: Jagjit Blum MD 11/21/21 18 Signed By: Jagjit Blum MD 11/22/211818 TD/TT: 11/21/21 1826Tech: ARKBA cc: SHAYESPNABIL; SOREN* Md Jesus MD; Cathleen Washington MD Report Dictated Date/Time Dictated By Status Radiology Report November 23, 2021 10:26am Saulo Mcnulty MD completed [facility] [address] [place] [address] Patient Name: Joaquín Barrientos [facility] rd#: [id number] Address: [address] [place] [address] City/State/Zip: [place] [address]: Ethan Washington MD Insurance: [facility] /Age/Sex: 1960/61/M Self Pay Admit/Reg Date: 11/21/[address]: Caio Washington MD [facility] PCP: Md MELANIE Lee Date of Service: 11/23/21 Order (s): CT head/brain wo contrast CPT Code: 38194 Report Number: [id number] Reason for Exam: followup parietal lesio [...] MD 11/24/21 0 558 TD/TT: 11/23/21 1026Tech: [id number] cc: HRSSPETE; SOREN* Pcp-MD Renny; Cathleen Washington MD Report Dictated Date/Time Dictated By Status Radiology Report December 01, 2021 10:06am Fer Dodge MD compl eted [address] [address] Patient Name: Joaquín Barrientos rd#: [id number] Address: [email or web address] City/State/Zip: [place] [address]: Prakash Saravia MD Insurance: [facility] /Age/Sex: 1960/61/M Self Pay Admit/Reg Date: 12/01/[address]: HEAVENLY Montes De Oca Location: ED.GS/ PCP: Pcp-Beba Marin Md Date of Service: 12/01/21 Order (s): XR chest 2V CPT Code: 05952 Report Number: [id number] Reason for Exam: chest pain Patient [...] TD/TT: 12/01/21 1006Tech: [id number] cc: LOGEM; PCPNS; AMADO* DAKOTA Owen; Prakash Saravia MD; TERESSA CONCEPCION Report Dictated Date/Time Dictated By Status Electrocardiogram December 01, 2021 8:57am Prakash Saravia MD comp leted [facility] [address] [place] [address] Patient Name: Joaquín Barrientos [facility] rd#: [id number] Address: [address] City/State/Zip: [place] [address]: Sean Salmeron MD Insurance: [facility] /Age/Sex: 1960/61[birth year]M Self Pay Admit/Reg Date: 12/01/[address]: HEAVENLY Montes De Oca [facility] PCP: PcpCarla lopes Md Date of Service: 12/01/21 Order (s): EKG ED Electrocardiogram CPT Code: 90972 Report Number: [id number] Reason for Exam: Chest pain CONSIDER ACUTE ST ELEVATION DC Sinus rhythm with borderline 1st degree A-V [...] 2021 10:05am Prakash Saravia MD com pleted [facility] [address] [place] [address] Patient Name: Joaquín Barrientos [facility] rd#: [id number] Address: [address] City/State/Zip: [place] [address]: Sean Salmeron MD Insurance: [facility] /Age/Sex: 1960/61/M Self Pay Admit/Reg Date: 12/01/[address]: HEAVENLY Montes De Oca Location: 3[id number] PCP: PcpCarla lopes Md Date of Service: 12/01/21 Order (s): EKG ED Electrocardiogram CPT Code: 60281 Report Number: [id number] Reason for Exam: CHEST PAIN Sinus rhythm Lead(s) unsuitable for analysis: V3 Right axis deviation Right bundle branch block Dictated By: Prakash Saravia MD 12/01/21 10 05 Signed By: Prakash Saravia MD 12/02/21 08 TD/TT: 12/01/21 1005Tech: AMADO cc: BORIS; PCPBENITA* Shira Al PAC; TERESSA RUIZ Report Dictated Date/Time Dictated By Status Radiology Report December 07, 2021 10:53pm Lary Rhodes MD completed [place] [address] [address] [place], [place] [address] Patient Name: Joaquín Barrientos [facility] rd#: [id number] Address: [email or web address] City/State/Zip: [place] [address]: Harlan Davis DO Insurance: [facility] /Age/Sex: 1960/61[birth year]M Self Pay Admit/Reg Date: 12/07/[address]: DAKOTA Hutchinson Location: ED.GS/ PCP: PcpCarla Marin Md Date of Service: 12/07/21 Order (s): CT head/brain wo contrast CPT Code: 70210 Report Number: [id number] Reason for Exam: syncope with head strik [...] 12/07/212252 Signed By: Lary Rhodes MD 12/07/21 225 9 TD/TT: 12/07/21 2253Tech: [id number] cc: JOSE; VIVEK; ANAM* TERESSA RUIZ; DAKOTA Victor; Phil Davis DO Report Dictated Date/Time Dictated By Status Radiology Report December 07, 2021 10:56pm Lary Rhodes MD completed [place] [address] No [facility] GRISELDA [place]ters [address] Patient Name: Joaquín Barrientos rd#: [id number] Address: [address] City/State/Zip: [place] [address]: Harlan Davis DO Insurance: [facility] /Age/Sex: 1960/61[birth year]M Self Pay Admit/Reg Date: 12/07/[address]: DAKOTA Hutchinson Location: ED.GS/ PCP: Pcp-Non Staff, Date of Service: 12/07/21 Order (s): CT cervical spine wo contrast CPT Code: 32000 Report Number: [id number] Reason for Exam: pain s/p fall [...] Rhodes MD 12/07/21 230 2 TD/TT: 12/07/212255Tech: [id number] cc: JOSE; PCPNS; ANAM* MERCADANTE,DAKOTA Gonsalez; Phil Davis DO Report Dictated Date/Time Dictated By Status Radiology Report December 08, 2021 7:58am Eduar Rm MD comp [facility] [address] [place] [facility] [place] [address] Patient Name: Joaquín Barrientos rd#: [id number] Address: [address] City/State/Zip: [place] [address]: Jesenia Rivas MD Insurance: [facility] [facility]Age[facility]Sex: 1960/61/M Self Pay Admit/Reg Date: 12/07/[address]: DAKOTA Hutchinson [facility] PCP: PcpCarla lopes Md Date of Service: 12/07/21 Order (s): CT abdomen pelvis w contrast; CT chest w contrast; CT thoracic spine wo contrast CPT Code: 71925; 41729; 36222 Report Num mike: [id number] Reason for Exam: L sided lower [...] using the independent workstation, performed by the electro mechanical technologist was reviewed. Automated exposure control and [...] Rm MD 12/08/21 0827 TD/TT: 12/08/21 0758Tech: [id number] cc: VIVEK; DARRELL; ANAM* TERESSA RUIZ; Jesenia Rivas MD; DAKOTA Victor Report Dictated Date/Time Dictated By Status Electrocardiogram December 08, 2021 12:11am Warren mendoza MD completed [facility] [address] [place] [address] Patient Name: Joaquín Barrientos [facility] rd#: [id number] Address: [email or web address] City/State/Zip: [place] [address]: Jesenia Rivas MD Insurance: [facility] /Age/Sex: 1960/61/M Self Pay Admit/Reg Date: 12/07/[address]: Juan A garza MD Location: 3B./[id number] PCP: PcpCarla lopes Md Date of Service: 12/08/21 Order (s): EKG Electrocardiogram CPT Code: 35226 Report Number: [id number] Reason for Exam: SYNCOPE SINUS RHYTHM VENTRICULAR PREMATURE COMPLEX FIRST DEGREE AV BLOCK RBBB AND LPFB Summary: Abnormal ECG Dictated By: Warren Espinal MD 10 Signed By: Warren Espinal MD 12/08/21 0914 TD/TT: 12/08/2110Tech: ALYSHA cc: MONICA; PCPNS* Javy Molina MD; TERESSA RUIZ Report Dictated Date/Time Dictated By Status Radiology Report December 08, 2021 1:51pm Gaurang Ramos [place] [address] Patient Name: Joaquín Barrientos [facility] rd#: [id number] Address: [email or web address] City/State/Zip: [place] [address]: Jesenia Rivas MD Insurance: [facility] /Age/Sex: 1960/61/M Self Pay Admit/Reg Date: 12/08/[address]: Griselda daugherty MD Location: 3B./[id number] PCP: PcpCarla lopes Md Date of Service: 12/08/21 Order (s): US venous duplex LE BI CPT Code: 68213 Report Number: [id number] Reason for Exam: Acute PE, question DVT BILATERAL DUPLEX LEG VENOUS ULTRASOUND ( 91733) HISTORY: Acute PE. TECHNIQUE: Examination of the [...] 2021 9:28am Daron Leong MD c ompleted [address] [address] [place] [address] Patient Name: Joaquín Barrientos [facility] rd#: [id number] Address: [address] City/State/Zip: [place] [address]: Jesenia Rivas MD Insurance: [facility] /Age/Sex: 1960/61[birth year]M Self Pay Admit/Reg Date: 12/08/[address]: Griselda daugherty MD Location: .[address] PCP: PcpCarla lopes Md Date of Service: 12/08/21 Order (s): Echo TTE comp w/dop w contras t CPT Code: C8929 Report Number: [id number] Reason for Exam: Acute pulmonary embolis m Transthoracic Echocardiography Report (T TE) Demographics Patient Name Floyd Yanes Gender Male MR Number [id number] Date of [birth year] Age 61 year (s) Room Number GS351 Height 69 inches Date of study 12/08/2021 Weight 247.01 pounds Referring MD Jesenia Rivas BSA 2.2 6 m^2 MD Erasto Blum MD Interpreting MD Daron Leong MD BMI 3 6.48 kg/m^2 Fellow [employer] Member Krys Chen, [facility] Conclusions Summary [...] By: Daron Leong MD 12/08/21 TD/TT: 12/08/21927Tech: [facility] cc: NATALY; VIVEK; DARRELL* Daron Leong MD; TERESSA RUIZ; Mauro Rivas MD Report Dictated Date/Time Dictated By Status Cardiac Catheterization December 02, 2021 12:06pm [place] [address] Patient Name: Joaquín Barrientos [address] rd#: [id number] Address: [email or web address] City/State/Zip: [place] [address]: Sean Salmeron MD Insurance: [facility] /Age/Sex: 1960/61/M Self Pay Admit/Reg Date: 12/03/[address]: Orlando Virgen Location: [address] [place] [address] PCP: Pcp-Beba lopes Md Date of Service: 12/02/21 Order (s): Cardiac Cath Order CPT Code: Report Number: [id number] Reason for Exam: CP Cardiac Catheterization and [...] Blum MD 12/13/21 1510 TD/TT: 12/02/21 1206Tech: CCPA cc: VENKATA; PCPNS* Erasto Blum MD; TERESSA RUIZ Vital Signs Vital Reading Result Reference Range Collection Date/ Time Height 177.8 cm November 20 11:25pm Weight 108.86 kg November 22 5:15am Body Temperature 97.5 [degF] 97.6-99.6 November 23 7:45am Heart Rate 77 /min 60-90 November 23 9:00am Respiratory rate 20 /min -November 23 7:45am Oxygen saturation by Pulse 98 % 95-100 [facility] t 2021 7:45am oximetry BP Systolic 127 [...] saturation by Pulse 95 % 95-100 [facility] t 2021 11:53pm oximetry BP Systolic 120 mm[Hg] 90-140 November 28 11:53pm BP Diastolic 78 mm[Hg] 60-90 November 28 11:53pm BMI (Body Mass Index) 35.4 kg/m2 November 10:45pm Height 175.26 cm December 02, 2 022 12:39am Weight 111.13 kg December 02, 2 022 12:39am Body Temperature 98.3 [degF] 97.6-99.6 December 03, 2021 7:25am Heart Rate 81 /min 60-90 December 03, 2 022 11:39am Respiratory rate 20 /min -December 03, 2021 7:25am Oxygen saturation by Pulse 96 % 95-100 [facility] 2021 7:25am oximetry BP Systolic 135 mm[Hg] [...] Oxygen saturation by Pulse 96 % 95-100 [facility] 2021 8:20am oximetry BP Systolic 136 mm[Hg] 90-140 December 09, 2 022 8:20am BP Diastolic 78 mm[Hg] 60-90 December 09, 2 022 8:20am BMI (Body Mass Index) 36.5 kg/m2 December 08, 2021 2:22am Advance Directives Advance Directive Response Recorded Date/Time [...] No December 08, 2021 9:15am Form (MOLST)? Insurance Providers Guarantor Joaquín Barrientos Address [address] [place] [address] Contact Info. Home Phone: Payer Policy Id Coverage Id Subscriber's Subscriber Effective Expi ration Name Id Date Date [facility] [id number] Joaquín Barrientos [id number] [employer] Medicare A&B [id number] Joaquín Maiert [id number] Self Pay Self N/A Encounters Encounter Location(s) Arrival/Admit Date Discharge/Depart Date Provider(s) Discharged [facility] November 21, 2021 November 23, 2021 Zamora , Inpatient Medical 9:59am 4:58pm Center-3A Departed [facility] November 28, 2021 November 29, 2021 numary hernandez Emergency Medical 9:07pm 12:08am Center-Emergency Dept Discharged [facility] December 03December 03, 2021 Luther Salmeron , Inpatient Medical 2021 9:24am 1:31pm Center-3A Discharged [facility] December 08December 09, 2021 Danay Recinosla Inpatient Medical 2021 12:49pm 2:05pm , Center-3B Recent Diagnosis Onset Date Abdominal pain BPH (benign prostatic hyperplasia) Cardiac defibrillator in situ Chest pain Neck pain Tetralogy of Fallot Essential hypertension Mixed hyperlipidemia Paroxysmal atrial fibrillation Type 2 diabetes mellitus Atypical chest pain Cardiac defibrillator in situ Chest pain Essential hypertension Paroxysmal atrial fibrillation Alcohol abuse Asthma Obstructive sleep apnea Pulmonary embolism Pulmonary nodule Readmission after hospitalization within last 30 days Syncope Diabetes Functional Status Observation Response Date Recorded Assistive Devices None November 21, 2021 1: 46pm Ambulation Tolerance [facility] November 23, 2021 1 0:43am Bathing Type [...] None December 08, 2021 9:15am Ambulation Tolerance Good December 09, 2021 10:18am Date of Last Bowel Movement 12/09/21December 82021 10:18am Oral Care Teeth Brushing December 09, [...] hyperplasia) acute Cardiac defibrillator in situ [facility] Chest pain acute Neck pain acute Tetralogy of Fallot chronic Essential hypertension chronic Mixed hyperlipidemia chronic Paroxysmal atrial fibrillation c hronic Type 2 diabetes mellitus chronic Atypical chest pain acute Cardiac defibrillator in situ [facility] [place] Chest pain acute Essential hypertension chronic Paroxysmal atrial fibrillation c hronic Alcohol abuse acute Asthma acute Obstructive sleep apnea acute Pulmonary embolism acute Pulmonary nodule acute Readmission after hospitalization within last 30 acute days Syncope acute Diabetes chronic Plan of Treatment Future Tests Future [...] Md MD TERESSA RUIZ Work Phone: [address] [place] [address] TERESSA RUIZ Work Phone: [address] [place] [address] Wally Stone Work Phone: [facility] MD Diana [address], [address] [facility] [address] TERESSA RUIZ Work Phone: [address] [place], [place] [address] Future Procedures Procedure Name Scheduled [...] Spiritual Care Consult December 01, 2021 11:47pm Credentialer Consult December 01, 2021 11:47pm Cardiology Consult [...] 1:46pm Pulmonology Consult December 08, 2021 8:24am Future Medications Future medication information is unavailable [...] will need to follow up with your [facility] doctor within 1-2 weeks. Please see [...]
[2022-04-07 13:29] VITALS: BP 140/71; PULSE 90; RESP 20; TEMP 36.4; O2SAT 97; BMI 35.4
--- OUTSIDE RECORDS SUMMARY | 2022-04-07 13:29 | XMS_ITS | Continuity of Care Document ---
:1960 Author Organization [facility] Address [address] [place] [address] Phone Care Team Providers Name Role Phone [...] Provider MD Faizan Leong Other Provider MD Jesenia Rivas Attending Provider Laundry Route Driver, Tala Other Provider Unavailable Chief Complaint and Reason for Visit Chief [...] pain Essential hypertension Paroxysmal atrial fibrillati on Readmission after hospitaliz ation within last 30 [...] Observat ion Never smoked tobacco (finding) M [facility] 2019 6:38am Observation Status Observation Response Date of Response Living Situation Jail November 21, 2021 12 :13pm Living Situation Sober House December 03, 2021 9:23am Living Situation Residential Treatment November 28, 2021 10:44pm Facility Is Anyone Dependent on your No December 2:30am Care? Living Situation Private Home December 08, 2021 2:30am Lives With Family December 08, 2021 2:30am Additional Data Assigned Sex Male Family History [...] Fluticasone Disconti 1 PUFF INH DAILY April Januar Propionate nued (Flovent 50 2018, Mcg Diskus) [...] Isosorbide Active 30 MG PO DAILY November Mononi2021 12:00am Metoprolol Active 100 MG PO DAILY [...] contrast December 07, 2021 8:29pm com pleted XR hip pelvis LT min 2V December 07, 2021 8:30pm active CT abdomen pelvis w contrast December 07, 2021 8:31pm comp leted CT chest w contrast December 07, 2021 9:35pm completed EKG Electrocardiogram December 08, 2021 8:00am completed US bladder December 08, 2021 8:23am active Echo TTE cmp w/dop wo contrast December 08, 2021 8:25am ac tive US venous duplex LE BI December 08, 2021 8:28am active SARS-CoV-2, Influenza & RSV (PCR) comple devendra Relevant Diagnostic Tests and/or Laboratory Data Laboratory Results Test Date/Time Result Interpretation Reference Result Perfo rming Range Comment Site Add-On Test November Added test [facility] Request 2021 [address] [facility] 3:59pm [place] [address] White Blood November 5.6 X10 4.5-11.0 [facility] Count 2021 3/uL [address] [facility] 8:20am [place] [address] White Blood November 8.5 X10 4.5-11.0 [facility] Count 2021 3/uL [address] [facility] 9:50pm [place] [address] White Blood December 7.2 X10 4.5-11.0 [facility] Count 2021 3/uL [address] [facility] 6:11am [place] [address] White Blood Brittany 8.4 X10 4.5-11.0 [facility] Count 2021 3/uL [address] [facility] 8:48pm [place] A [address] Red Blood Count November 3.95 X10 4.00-5.50 [facility] 2021 6/uL [address] [facility] 8:20am [place] [address]86 Red Blood Count November 4.46 X10 4.00-5.50 [facility] 2021 6/uL [address] [facility] 9:50pm [place] [address] Red Blood Count December 4.53 X10 4.00-5.50 [facility] 2021 6/uL [address] [facility] 6:11am [place] [address] Red Blood Count December 4.05 X10 4.00-5.50 [facility] 2021 6/uL [address] [facility] 8:48pm [place] [address] Hemoglobin November 12.0 g/dl 12.0-17.0 [facility] 2021 [facility] 8:20am [place] [address] Hemoglobin November 13.8 g/dl 12.0-17.0 [facility] 2021 [facility] 9:50pm [place] [address] Hemoglobin December 13.7 g/dl 12.0-17.0 [facility] 2021 [facility] 6:11am [place] [address] Hemoglobin December 12.7 g/dl 12.0-17.0 [facility] 2021 [facility] 8:48pm [place] [address] Hematocrit November 36.9 % 35.0-50.0 [facility] 2021 [facility] 8:20am [place] [address] Hematocrit November 41.4 % 35.0-50.0 [facility] 2021 [facility] 9:50pm [place] [address] Hematocrit December 41.9 % 35.0-50.0 [facility] [address] 6:11am [facility] A [address] Hematocrit December 37.3 % 35.0-50.0 [facility] [address] 8:48pm [facility] A [address] Mean November 93.4 fl 80.0-100.0 [facility] Corp[facility] [address] Volume 8:20am [facility] A 91356 Mean November 92.8 fl 80.0-100.0 [facility] [employer] [address] Volume 9:50pm [facility] A 54569 Mean December 92.5 fl 80.0-100.0 [facility] [employer] [address] Volume 6:11am [facility] A 94604 Mean December 92.1 fl 80.0-100.0 [facility] [employer] [address] Volume 8:48pm [facility] [address] Mean November 30.4 pg 27.0-34.0 [facility] [employer] [address] Hemoglobin 8:20am [facility] 6[address] Mean November 30.9 pg 27.0-34.0 [facility] [employer] [address] Hemoglobin 9:50pm [facility] [address] Mean December 30.2 pg 27.0-34.0 [facility] [employer] [address] Hemoglobin 6:11am [facility] 8[address] Mean December 31.4 pg 27.0-34.0 [facility] [employer] [address] Hemoglobin 8:48pm [facility] 575[address] Mean November 32.5 g/dl 31.0-36.0 [facility] [employer] [address] Hemoglobin 8:20am [facility] [address] Concent Mean November 33.3 g/dl 31.0-36.0 [facility] [employer] [address] Hemoglobin 9:50pm [place] [address] Concent Mean December 32.7 g/dl 31.0-36.0 [facility] [employer] [address] Hemoglobin 6:11am [place] [address] Concent Mean December 34.0 g/dl 31.0-36.0 [facility] [employer] [address] Hemoglobin 8:48pm [place] [address] Concent Red Cell November 12.6 % 11.5-15.0 [facility] Distribution [address] Width 8:20am [place] [address] Red Cell November 12.5 % 11.5-15.0 [facility] [address] Width 9:50pm [place] [address] Red Cell December 12.5 % 11.5-15.0 [facility] Distribution [address] Width 6:11am [place] [address] Red Cell December 12.3 % 11.5-15.0 [facility] [address] Width 8:48pm [place] [address] Platelet Count November 90 X10 3/uL 150-400 [facility] [address] 8:20am [place] [address] Platelet Count November 103 X10 150-400 [facility] 2021 3/uL [address] 9:50pm [place] [address] Platelet Count December 103 X10 150-400 [facility] 2021 3/uL with previous [address] 6:11am results [place] A [address] Platelet Count December 99 X10 3/uL 150-400 [facility] [address] 8:48pm [place] [address] Immature November 1.1 % [facility] Granulocyte % [address] (Auto) 8:20am [place] [address] Immature November 1.5 % [facility] Granulocyte % [address] (Auto) 9:50pm [place] [address] Immature December 1.9 % [facility] Granulocyte % [address] (Auto) 6:11am [place] [address] Neutrophils (%) November 62.7 % [facility] (Auto) [address] [facility] [address] 8:20am [place] [address] Neutrophils (%) November 66.2 % [facility] (Auto) [address] [facility] [address] 9:50pm [place] [address] Neutrophils (%) December 61.5 % [facility] (Auto) 2021 [address] [facility] 6:11am [place] [address] Neutrophils (%) December Not [facility] (Auto) 2021 Reportable [address] [facility] 8:48pm [place] A [address]883 Lymphocytes (%) November 18.8 % [facility] (Auto) 2021 [address] [facility] 8:20am [place] [address] Lymphocytes (%) November 18.0 % [facility] (Auto) 2021 [address] [facility] 9:50pm [place] [address]99 Lymphocytes (%) December 19.3 % [facility] (Auto) 2021 [address] [facility] 6:11am [place] [address] Lymphocytes (%) December Not [facility] (Auto) 2021 Reportable [address] [facility] 8:48pm [place] A [address] Monocytes (%) November 9.8 % [facility] (Auto) [address] [facility] [address] 8:20am [place] A [address] Monocytes (%) November 8.7 % [facility] (Auto) 2021 [address] [facility] 9:50pm [place] A [address]87 Monocytes (%) December 10.0 % [facility] (Auto) 2021 [facility] 6:11am [place] A [address]83 Monocytes (%) Brittany Not [facility] (Auto) [address] [facility] [address] 8:48pm [place] [address] Eosinophils (%) [place] 6.2 % [facility] (Auto) 2021 [address] [facility] 8:20am [place] [address]103 Eosinophils (%) [place] 4.2 % [facility] (Auto) [address] [facility] [address] 9:50pm [place] A [address]71 Eosinophils (%) [place] 6.0 % [facility] (Auto) 2021 [address] [facility] 6:11am [place] [address] Eosinophils (%) December Not [facility] (Auto) 2021 Reportable [address] [facility] 8:48pm [place] A [address] Basophils (%) November 1.4 % [facility] (Auto) 2021 [address] [facility] 8:20am [place] [address]20 Basophils (%) November 1.4 % [facility] (Auto) 2021 [address] [facility] 9:50pm [place] A 28394 Basophils (%) Brittany 1.3 % [facility] (Auto) 2021 [address] [facility] 6:11am [place] [address]201 Basophils (%) December Not [facility] (Auto) 2021 Reportable [address] [facility] 8:48pm [place] 17053 Immature [place] 0.06 X10 0.00-0.09 [facility] Granulocyte # 2021 3/uL [address] (Auto) 8:20am [place] [address] Immature [place] 0.13 X10 0.00-0.09 [facility] Granulocyte # 2021 3/uL [address] (Auto) 9:50pm [place] [address] Immature Brittany 0.14 X10 0.00-0.09 [facility] Granulocyte # 2021 3/uL [address] (Auto) 6:11am [place] [address] Neutrophils # [place] 3.5 X10 1.5-7.8 [facility] (Auto) 2021 3/uL [address] [facility] 8:20am [place] A [address]996 Neutrophils # [place] 5.6 X10 1.5-7.8 [facility] (Auto) 2021 3/uL [address] [facility] 9:50pm [place] A 10247 Neutrophils # Brittany 4.4 X10 1.5-7.8 [facility] (Auto) 2021 3/uL [address] [facility] 6:11am [place] A 15449 Neutrophils # Brittany Not [facility] (Auto) [address] [place] [address] 8:48pm [place] A [address]894 Lymphocytes # [place] 1.1 X10 1.0-4.8 [facility] (Auto) 2021 3/uL [address] [facility] 8:20am [place] A [address]4668 Lymphocytes # [place] 1.5 X10 1.0-4.8 [facility] (Auto) 2021 3/uL [address] [facility] 9:50pm [place] A [address]96 Lymphocytes # Brittany 1.4 X10 1.0-4.8 [facility] (Auto) 2021 3/uL [address] [facility] 6:11am [place] A [address]90 Lymphocytes # Brittany Not [facility] (Auto) [address] [place] [address] 8:48pm [place] A [address]37 Monocytes # [place] 0.6 X10 0.0-0.8 [facility] (Auto) 2021 3/uL [address] [facility] 8:20am [place] A 16649 Monocytes # [place] 0.7 X10 0.0-0.8 [facility] (Auto) 2021 3/uL [address] [facility] 9:50pm [place] A [address]1276 Monocytes # Brittany 0.7 X10 0.0-0.8 [facility] (Auto) 2021 3/uL [address] [facility] 6:11am [place] [address] Eosinophils # [place] 0.4 X10 0.0-0.5 [facility] (Auto) 2021 3/uL [address] [facility] [address] 8:20am [place] [address] Eosinophils # [place] 0.4 X10 0.0-0.5 [facility] (Auto) 2021 3/uL [address] [facility] 9:50pm [place] A 22581 Eosinophils # Brittany 0.4 X10 0.0-0.5 [facility] (Auto) 2021 3/uL [address] [facility] 6:11am [place] A 61431 Basophils # [place] 0.1 X10 0.0-0.2 [facility] (Auto) 2021 3/uL [address] [facility] 8:20am [place] A 37697 Basophils # [place] 0.1 X10 0.0-0.2 [facility] (Auto) 2021 3/uL [address] [facility] 9:50pm [place] A 89555 Basophils # Brittany 0.1 X10 0.0-0.2 [facility] (Auto) 2021 3/uL [address] [facility] 6:11am [place] 14588 Basophils # Brittany Not [facility] (Auto) 2021 Reportable [address] [facility] 8:48pm [place] A 05184 Neutrophils % Brittany 80 % [facility] (Manual) 2021 [address] [facility] 8:48pm [place] A 96429 Lymphocytes % Brittany 12 % [facility] (Manual) 2021 [address] [facility] 8:48pm [place] A 06888 Monocytes % Brittany 2 % [facility] (Manual) 2021 [address] [facility] 8:48pm [place] A 55100 Eosinophils % Brittany 3 % [facility] (Manual) 2021 [address] [facility] 8:48pm [place] A 09542 Basophils % Brittany 1 % [facility] (Manual) 2021 [address] [facility] 8:48pm [place] A 63207 Myelocytes % December 2 % 0-0 [facility] (Manual) 2021 [address] [facility] 8:48pm [place] A 41799 Neutrophils # Brittany 6.7 X10 1.5-7.8 [facility] (Manual) 2021 3/uL [address] [facility] 8:48pm [place] A 35463 Lymphocytes # Brittany 1.0 X10 1.0-4.8 [facility] (Manual) 2021 3/uL [address] [facility] 8:48pm [place] A 83431 Monocytes # Brittany 0.2 X10 0.0-0.8 [facility] (Manual) 2021 3/uL [address] [facility] 8:48pm [place] A [address]012 Eosinophils # Brittany 0.3 X10 0.0-0.5 [facility] (Manual) 2021 3/uL [address] [facility] 8:48pm [place] 11191 Basophils # Brittany 0.1 X10 0.0-0.2 [facility] (Manual) 2021 3/uL [address] [facility] 8:48pm [place] [address]4558 Platelet Brittany Decreased [facility] Estimate 2021 [address] [facility] 8:48pm [place] [address] Ovalocytes [address] [facility] 2021 [address] [facility] 8:48pm [place] [address]352 Hemoglobin A1c November 6.6 4.3-5.9 [facility] 2021 [address] [facility] 6:10am [place] [address]058 Estimated November 143 mg/dl [facility] Average Glucose 2021 [address] [facility] (eAG) 6:10am [place] 76643 Nucleated Red November 0.0 /100 0.0-0.0 [facility] Blood Cells % 2021 WBC [address] [facility] 8:20am [place] A [address]69 Nucleated Red November 0.0 /100 0.0-0.0 [facility] Blood Cells % 2021 WBC [address] [facility] 9:50pm [place] [address]99 Nucleated Red Brittany 0.0 /100 0.0-0.0 [facility] Blood Cells % [address] WBC [address] 6:11am [place] [address] Nucleated Red [place] 0.0 /100 0.0-0.0 [facility] Blood Cells % 2021 [facility] 8:48[facility] [place] [address]994 Prothrombin November 11.1 9.3-12.1 [facility] Time 2021 Seconds [address] [facility] 5:31am [place] A [address] Prothromb Time November 1.0 0.9-1.2 Reference Interval is for non-anticoagulated patients. [facility] 2021 Suggested I NR Therapeutic Range for Vitamin K antogonist therapy: [address] [facility] Ratio 5:31am LEVELS [place] [address] THERAPY INDICATIONS TARGET INR RANGE Standard Dose Venous Thrombosis, 2.0 - 3.0 Atrial Fibrillation , Pulmonary Embolism. High Dose Valvular H eart Disease, 2.5 - 3.5 Mechanical Heart, Intracardiac Thromb osis. Urine Color November Yellow Yellow [facility] 2021 [address] [facility] 10:06pm [place] [address] Urine Color December Yellow Yellow [facility] 2021 [address] [facility] 12:23am [place] 79670 Urine Clarity November Clear Clear [facility] 2021 [address] [facility] 10:06pm [place] 85618 Urine Clarity December Clear Clear [facility] 2021 [address] [facility] 12:23am [place] A 87592 Urine pH November 5.5 5.0-8.0 [facility] 2021 [address] [facility] 10:06pm [place] 79551 Urine pH December 5.5 5.0-8.0 [facility] 2021 [address] [facility] 12:23am [place] [address] Urine Specific [place] 1.013 1.005-1.03 [facility] [address] [facility] [address] 10:06pm [place] [address]66 Urine Specific [place] 1.007 1.005-1.03 [facility] [address] [facility] [address] 12:23am [place] [address] Urine Blood November Negative Negative [facility] 2021 mg/dL 235 [facility] [address] 10:06pm [place] 28031 Urine Blood Brittany Negative Negative [facility] 2021 mg/dL 235 [facility] [address] 12:23am [place] [address]122 Urine Protein November Negative Negative [facility] 2021 mg/dL 235 [facility] [address] 10:06pm [place] [address]403 Urine Protein Brittany Negative Negative [facility] 2021 mg/dL 235 [facility] [address] 12:23am [place] [address]7835 Urine Glucose November Negative Negative [facility] () 2021 mg/dl 235 [facility] [address] 10:06pm [place] [address]85 Urine Glucose Brittany Negative Negative [facility] () 2021 mg/dl [address] [facility] [address] 12:23am [place] [address]6627 Urine Ketones November Negative Negative [facility] 2021 mg/dL 235 [facility] [address] 10:06pm [place] [address]3723 Urine Ketones Brittany Negative Negative [facility] 2021 mg/dL 235 [facility] [address] 12:23am [place] [address]492 Urine Nitrate November Negative Negative [facility] [address] [facility] [address] 10:06pm [place] 16943 Urine Nitrate December Negative Negative [facility] [address] [facility] [address] 12:23am [place] 39951 Urine Bilirubin [place] Negative Negative [facility] 2021 mg/dL 235 [facility] [address] 10:06pm [place] 35935 Urine Bilirubin [place] Negative Negative [facility] 2021 mg/dL 235 [facility] [address] 12:23am [place] [address]47[address] Urine [place] 0.2 E.U./dL Normal [facility] Urobilinogen [address] 10:06pm [place] [address]74[address] Urine December 0.2 E.U./dL Normal [facility] Urobilinogen 2021 235 [facility] 12:23am [place] 75573 Urine Leukocyte November Negative Negative [facility] Esterase 2021 mg/dL [address] [facility] 10:06pm [place] 39315 Urine Leukocyte December Negative Negative [facility] Esterase 2021 mg/dL [address] [facility] 12:23am [place] [address]20 Sodium Level November 141 mmol/L 137-146 [facility] 2021 [address] [facility] 6:10am [place] [address] Sodium Level November 137 mmol/L 137-146 [facility] 2021 [address] [facility] 9:50pm [place] [address]8850 Sodium Level December 138 mmol/L 137-146 [facility] 2021 [address] [facility] 6:11am [place] [address]76 Sodium Level December 141 mmol/L 137-146 [facility] 2021 [address] [facility] 8:48pm [place] [address] Potassium Level November 4.2 mmol/L 3.5-5.3 [facility] 2021 [address] [facility] 6:10am [place] [address] Potassium Level November 4.7 mmol/L 3.5-5.3 Specimen [facility] 2021 hemolyzed, 235 [facility] 9:50pm [place] [address] affected Potassium Level December 4.6 mmol/L 3.5-5.3 Specimen [facility] 2021 hemolyzed, [address] [facility] 6:11am results [place] [address]309 affected Potassium Level December 4.5 mmol/L 3.5-5.3 [facility] 2021 [address] [facility] 8:48pm [place] [address]441 Chloride Level November 102 mmol/L 98-107 [facility] 2021 [address] [facility] 6:10am [place] 98496 Chloride Level November 99 mmol/L 98-107 [facility] [address] [facility] [address] 9:50pm [place] [address]357 Chloride Level December 99 mmol/L 98107 [facility] [address] [facility] [address] 6:11am [place] [address] Chloride Level December 105 mmol/L [facility] [address] [facility] [address] 8:48pm [place] [address]20[address] Carbon Dioxide November 26 mmol/L [facility] Level 2021 [address] [facility] 6:10am [place] A 23898 Carbon Dioxide November 27 mmol/L [facility] Level 2021 [address] [facility] 9:50pm [place] A 71955 Carbon Dioxide December 23 mmol/L [facility] Level 2021 [address] [facility] 6:11am [place] [address]1118 Carbon Dioxide December 27 mmol/L [facility] Level 2021 [address] [facility] 8:48pm [place] 28988 Anion Gap November 13 mmol/L 08-15 [facility] 2021 [address] [facility] 6:10am [place] 16153 Anion Gap November 11 mmol/L 08-15 [facility] 2021 235 [facility] 9:50pm [place] M A [address]30 Anion Gap December 16 mmol/L 08-15 [facility] 2021 235 [facility] 6:11am [place] M A 72436 Anion Gap December 9 mmol/L 08-15 [facility] 2021 235 [facility] 8:48pm [place] M A 54960 Blood Urea November 16 mg/dl 08-25 [facility] Nitrogen 2021 235 [facility] 6:10am [place] M A 70156 Blood Urea November 22 mg/dl 08-25 [facility] Nitrogen 2021 235 [facility] 9:50pm [place] M A 15956 Blood Urea December 31 mg/dl 08-25 [facility] Nitrogen 2021 235 [facility] 6:11am [place] M A 84861 Blood Urea December 20 mg/dl 08-25 [facility] Nitrogen [address] [facility] [address] 8:48pm [place] M A 15879 Creatinine November 1.1 mg/dL 0.6-1.4 [facility] [address] [facility] [address] 6:10am [place] A 52570 Creatinine November 1.3 mg/dL 0.6-1.4 [facility] 2021 235 [facility] 9:50pm [place] M A 15237 Creatinine December 1.3 mg/dL 0.6-1.4 [facility] [address] [facility] [address] 6:11am [place] M A 35000 Creatinine December 1.2 mg/dL 0.6-1.4 [facility] 2021 235 [facility] 8:48pm [place] M A 11272 Estimated November 74.7 ml/min This value [facility] Creatinine [address] [facility] [address] Clearance 6:10am [place] [address] Gault Equation using ideal body weight. This result is dependent on an accurate patient height and weight which is obtained from patients medical record. Cockcroft, D.W. and M.H. Gault. Prediction of creatinine clearance from serum creatinine. Nephron. 1975. 16(1):31-41. Estimated November 74.4 ml/min This value [facility] Creatinine [address] [facility] [address] Clearance 9:50pm [place] [address] Gault Equation using ideal body weight. This result is dependent on an accurate patient height and weight which is obtained from patients medical record. Cockcroft, D.W. and M.H. Gault. Prediction of creatinine clearance from serum creatinine. Nephron. 1975. 16(1):31-41. Estimated December 75.2 ml/min This value [facility] Creatinine 2021 is calculated [address] Clearance 6:11am [place] [address] Gault Equation using ideal body weight. This result is dependent on an accurate patient height and weight which is obtained from patients medical record. Joey Guzman. and MJosselinHJosselin Bowers. Prediction of creatinine clearance from serum creatinine. Nephron. 1976. 16(1):31-41. Estimated Brittany [employer] Inspector Unable to [facility] Creatinine 2021 Calculate [address] Clearance 8:48pm CRCL,Ht [place] M A [address]34 and/or Wt missing Estimated GFR November 85 >60 [facility] ( [address] [place]) 6:10am [place] M A 88610 Estimated GFR November 69 >60 [facility] ( [address] [place]) 9:50pm [place] M A 58509 Estimated GFR December 69 >60 [facility] ( [address] [place]) 6:11am [place] M A 84661 Estimated GFR December 76 >60 [facility] ( [address] [place]) 8:48pm [place] M A 16694 Estimated GFR November 73 >60 [facility] (Non- [address] [place] 6:10am [place] M A 26863 Estimated GFR November 60 >60 [facility] (Non- [address] [place] 9:50pm [place] M A 30310 Estimated GFR December 60 >60 [facility] (Non- [address] [place] 6:11am [place] M A 04262 Estimated GFR December 66 >60 [facility] (Non- [address] [place] 8:48pm [place] M A 85746 BUN/Creatinine November 14.5 10.0-20.0 [facility] Ratio [address] 6:10am [place] M A 13426 BUN/Creatinine November 16.9 10.0-20.0 [facility] Ratio 2021 235 [facility] 9:50pm [place] M A 64125 BUN/Creatinine December 23.8 10.0-20.0 [facility] Ratio 2021 235 [facility] 6:11am [place] M A 13938 BUN/Creatinine December 16.7 10.0-20.0 [facility] Ratio 2021 235 [facility] 8:48pm [place] M A 28013 Glucose Level November 106 mg/dL 70-100 [facility] 2021 235 [facility] 6:10am [place] A 75181 Glucose Level November 226 mg/dL 70-100 [facility] 2021 235 [facility] 9:50pm [place] M A 14100 Glucose Level December 145 mg/dL 70-100 [facility] 2021 235 [facility] 6:11am [place] M A 30568 Glucose Level December 165 mg/dL 70-100 [facility] 2021 235 [facility] 8:48pm [place] A 08108 Calcium Level November 8.6 mg/dl 8.6-10.3 [facility] 2021 235 [facility] 6:10am [place] M A 50391 Calcium Level November 8.8 mg/dl 8.6-10.3 [facility] 2021 235 [facility] 9:50pm [place] M A 16368 Calcium Level December 8.4 mg/dl 8.6-10.3 [facility] 2021 235 [facility] 6:11am [place] M A 60918 Calcium Level December 8.4 mg/dl 8.6-10.3 [facility] 2021 235 [facility] 8:48pm [place] M A 30032 Total Bilirubin November 0.3 mg/dl <1.1 [facility] 2021 235 [facility] 9:50pm [place] M A 86684 Total Bilirubin November 0.4 mg/dl <1.1 [facility] 2021 235 [facility] 9:49am [place] M A 51372 Total Bilirubin December < 0.2 mg/dl <1.1 [facility] 2021 [facility] 8:48pm [place] M A 73893 Aspartate Amino November 16 U/L [facility] Transf 2021 [facility] (AST/SGOT) 9:50pm [place] [address] Aspartate Amino November 17 U/L [facility] Transf 2021 235 [facility] (AST/SGOT) 9:49am [place] [address] Aspartate Amino December 13 U/L [facility] Transf 2021 [facility] (AST/SGOT) 8:48pm [place] [address] Alanine November 18 U/L [facility] Aminotransferas 2021 [facility] e (ALT/SGPT) 9:[place] [address] Alanine November 20 U/L [facility] Aminotransferas 2021 [facility] e (ALT/SGPT) 9:[place] [address] Alanine December 18 U/L [facility] Aminotransferas 2021 [facility] e (ALT/SGPT) 8:48[place] [address] Troponin T High November 13 ng/L <13 Normal range: Females <9 ng/L [facility] Sensitivity 2021 Males <14 ng/L 2 [facility] 12:10am [place] M A 60174 Values greater than or equal to 52 [...] ng/L <13 Normal range: Females <9 ng/L [facility] Sensitivity 2021 Males <14 ng/L 2 35 [facility] 1:09pm [place] M A 76643 Values greater than or equal to 52 [...] ng/L <13 Normal range: Females <9 ng/L [facility] Sensitivity 2021 Males <14 ng/L 23 5 [facility] 12:05am [place] M A 18436 Values greater than or equal to 52 [...] setting). Total Protein November 6.7 g/dL 6.4-8.3 [facility] 2021 [facility] 9:50pm [place] A 08240 Total Protein November 6.7 g/dL 6.4-8.3 [facility] 2021 [facility] 9:49am [place] M A 45793 Total Protein December 6.3 g/dL 6.4-8.3 [facility] 2021 235 [facility] 8:48pm [place] A [address]109 Albumin [place] 4.0 g/dl 4.0-5.0 [facility] 2021 [facility] 9:50pm [place] M A 36332 Albumin [place] 4.3 g/dl 4.0-5.0 [facility] 2021 [facility] 9:49am [place] A 09329 Albumin December 3.7 g/dl 4.0-5.0 [facility] 2021 235 [facility] 8:48pm [place] M A 72462 Albumin/Globuli [place] 1.5 1.0-2.6 [facility] n Ratio 2021 [facility] 9:50pm [place] M A 80518 Albumin/Globuli [place] 1.8 1.0-2.6 [facility] n Ratio 2021 [facility] 9:49am [place] M A 34758 Albumin/Globuli Britt[place] 1.4 1.0-2.6 [facility] n Ratio [address] [facility] [address] 8:48pm [place] A [address] Alkaline November 93 U/L 40-129 [facility] Phosphatase 2021 [address] [facility] [address] 9:50pm [place] A [address] Alkaline November 84 U/L 40-129 [facility] Phosphatase 2021 [address] [facility] [address] 9:49am [place] A [address] Alkaline December 81 U/L 40-129 [facility] Phosphatase [facility] [address] [facility] [address] 8:48pm [place] A [address]9868 Lipase November 36 U/L 13-60 [facility] [address] [facility] [address] 9:50pm [place] A 47685 Lipase December 30 U/L 13-60 [facility] [address] [facility] [address] 8:48pm [place] A 8[address] Prostate November 0.63 ng/ml <3.09 [facility] Clinical Labs Specific [address] Antigen 12:10am [facility] [address] Thyroid November 4.83 uIU/mL 0.34-5.60 [facility] Stimulating 2021 235 [facility] Hormone (TSH) 8:20am Heriberto Felix01 Bedside Glucose November 165 mg/dl 70-100 NOTE: Any discrepancy between finger stick glucose result [facility] 2021 and patient's clin ical presentation should be 235 [facility] 11:31am confirmed by the qu[place]. Romeo VILLALOBOS Bedside Glucose December 181 mg/dl 70-100 NOTE: Any discrepancy between finger stick glucose result [facility] 2021 and patient's clini joanne presentation should be 235 [facility] 11:40am confirmed by the [place] duque. Romeo VILLALOBOS Bedside Glucose December 121 mg/dl 70-100 NOTE: Any discrepancy between finger stick glucose result [facility] 2021 and patient's clini joanne presentation should be [address] [facility] [address] 6:09am confirmed by the [place]. Romeo VILLALOBOS 96965 Microbiology Results Procedure Source Result Collection Result Result Performin g Date/Time Date/Time Comment Site SARS-CoV-2, Nares, Both November 23, Goo d [facility] Influenza & Left & 2021 1:56pm [address] RSV (PCR) Right Romeo Mendosa [address] SARS-CoV-2, Nares, Both December [facility] Influenza & Left & [address] RSV (PCR) Right 2:18am Romeo Mendosa Diagnostic Imaging Reports Report Dictated Date/Time Dictated By Status Radiology Report November 20, 2021 9:08am Deniz Silva MD comp [facility] [address] [place] [address] Patient Name: Joaquín Barrientos [facility] rd#: [id number] Address: [address] [place] [address] City/State/Zip: [place] [address]: Ethan Washington MD Insurance: [facility] /Age/Sex: 1960/61[birth year]M Self Pay Admit/Reg Date: 11/20/[address]: Haris Bradshaw DO [facility] PCP: Md MELANIE Lee Date of Service: 11/20/21 Order (s): XR chest 2V CPT Code: 29488 Report Number: [id number] Reason for Exam: Chest Pain EXAM: [...] Silva MD 11/20/21 0913 TD/TT: 11/20/21 0908Tech: [employer] [place] cc: [id number]; HRSSPETE; PCPNO* Md Jesus MD; Cathleen [place] MD; Vince Bradshaw DO Report Dictated Date/Time Dictated By Status Electrocardiogram November 20, 2021 Warren Rivas MD completed [facility] [address] [place] [address] Patient Name: Joaquín Barrientos [facility] [place] rd#: [id number] Address: [address] [place] [address] 85 [facility]/Zip: [place] [address]: Ethan Washington MD Insurance: [facility] /Age/Sex: 1960/61[birth year]M Self Pay Admit/Reg Date: 11/20/[address]: Haris Bradshaw DO Location: ED.[facility]/XFR-7 PCP: Md MELANIE Lee Date of Service: 11/20/21 Order (s): EKG ED Electrocardiogram CPT Code: 10360 Report Number: [id number] Reason for Exam: Chest Pain SINUS RHYTHM RIGHT BUNDLE BRANCH BLOCK LEFT POSTERIOR FASCICULAR BLOCK Dictated By: Warren Rivas MD 11/20/21 Signed By: Warren Rivas MD 11/20/21 1442 TD/TT: 11/20/21 1441Tech: cc: TASHA; CRYSTAL Lee MD; Titus Bradshaw DO Report Dictated Date/Time Dictated By Status Radiology Report November 20, 2021 1:35pm Titus Martinez MD compl eted [place] [address] [place] [address] Patient Name: Joaquín Barrientos [facility] rd#: [id number] Address: [address] [place] [address] City/State/Zip: [place] [address]: Ethan Washington MD Insurance: [facility] /Age/Sex: 1960/61[birth year]M Self Pay Admit/Reg Date: 11/20/[address]: Caio [place] MD; DAKOTA Mariano Location: ED.[facility]/GSXFR-7 PCP: Md MELANIE Lee Date of Service: 11/20/21 Order (s): CT abd pelvis wo/w contrast; CT cervical spine wo contrast CPT Code: 55395; 67844 Report Number: [id number] Reason for Exam: hx cervical fracture in past. neck pain PROCEDURE: CERVICAL SPINE CT HISTORY: Neck pain. History of cervical fracture. COMPARISON: None TECHNIQUE: Noncontrast CT of the cervic al spine.Multiplanar imaging was reviewed. CT technique involves the adju stment of the mA and/or kV according to patient size. MIPS Measure #361 Patient Exposure to Ionizing Radiation was submitted to [employer] (ACR) Elizabeth onal Data [...] to [employer] (ACR) [facility] Radiology Data Registry (NRDR) and MIPS [...] Martinez MD 11/20/21 1452 TD/TT: 11/20/21 1335Tech: [id number] cc: TIA; DEANNE; CRYSTAL Lee MD; Cathleen [place] MD; Ceferino Shannon, PAC Report Dictated Date/Time Dictated By Status Radiology Report November 21, 2021 4:29pm Fer [facility] [address] [place] [address] Patient Name: Joaquín Barrientos [facility] rd#: [id number] Address: [address] [place] [address] City/State/Zip: [place] [address]: Ethan Washington MD Insurance: [facility] /Age/Sex: 1960/61[birth year]M Self Pay Admit/Reg Date: 11/21/[address]: Caio [place] MD Location: 3A./SZ536-J PCP: Md MELANIE Lee Date of Service: 11/21/21 Order (s): US bladder CPT Code: 47922 Report Number: [id number] Reason for Exam: possible tumor per [...] November 22, 2021 5:27pm Eduar Rm MD [place] [address] [place] [address] Patient Name: Joaquín Barrientos [facility] rd#: [id number] Address: [address] [place] [address] City/State/Zip: [place] [address]: Ethan Washington MD Insurance: [facility] /Age/Sex: 1960/61[birth year]M Self Pay Admit/Reg Date: 11/21/[address]: Caio [place] MD Location: 3A./[id number] PCP: Md MELANIE Lee Date of Service: 11/22/21 Order (s): NM bone scan whole body CPT Code: 67009 Report Number: [id number] Reason for Exam: c2 fracture THREE [...] By: Eduar Rm MD 11/22/211736 TD/TT: 11/22/211726Tech: [employer] cc: HRSSPETE; PCPNO* Md Jesus MD; Cathleen [place] MD Report Dictated Date/Time Dictated By Status Electrocardiogram November 20, 2021 1:40am Jagjit Blum MD [place] [address] [address] [place] [id number] Patient Name: Joaquín Barrientos rd#: [id number] Address: [address] [place] [address] City/State/Zip: [place] [address]: Ethan Washington MD Insurance: [facility] /Age/Sex: 1960/61/M Self Pay Admit/Reg Date: 11/21/[address]: E/ R Olga Correa [facility] PCP: Md MELANIE Lee Date of Service: 11/20/21 Order (s): EKG ED Electrocardiogram CPT Code: 16027 Report Number: [id number] Reason for Exam: CP Sinus rhythm Right axis deviation Right bundle branch block Left posterior fascicular block Low QRS voltages in precordial leads Dictated By: Jagjit Blum MD 11/20/21 01 40 Signed By: Jagjit Blum MD 11/22/211817 TD/TT: 11/20/21 0140Tech: [facility] cc: E/R; PCPSHANNAN* E/R PhysicianOlga ; Md Jesus MD Report Dictated Date/Time Dictated By Status Electrocardiogram November 21, 2021 6:26pm Jagjit Blum MD comp leted [facility] [address] [place] [address] Patient Name: [facility] rd#: [id number] Address: [address] [place] [address] City/State/Zip: [place] [address]: Ethan Washington MD Insurance: [facility] /Age/Sex: 1960/61/M Self Pay Admit/Reg Date: 11/21/[address]: Caio Washington MD Location: [address] [place] [address] PCP: Md MELANIE Lee Date of Service: 11/21/21 Order (s): EKG Electrocardiogram CPT Code: 94603 Report Number: [id number] Reason for Exam: CP Sinus rhythm with 1st degree A-V block Rightward axis Right bundle branch block Left posterior fascicular block Low QRS voltages in precordial leads Dictated By: Jagjit Blum MD 11/21/21 18 26 Signed By: Jagjit Blum MD 11/22/211818 TD/TT: 11/21/21 1826Tech: [facility] cc: HRSSPETE; CRYSTAL Lee MD; Cathleen [place] MD Report Dictated Date/Time Dictated By Status Radiology Report November 23, 2021 10:26am Saulo Mcnulty MD completed [facility] [address] [place] [address] Patient Name: [facility] rd#: [id number] Address: [address] [place] [address] City/State/Zip: [place] [address]: Ethan Washington MD Insurance: [facility] /Age/Sex: 1960/61[birth year]M Self Pay Admit/Reg Date: 11/21/[address]: Caio Washington MD Location: 3A./[id number]-C PCP: Pcp-Md MELANIE Lawson Date of Service: 11/23/21 Order (s): CT head/brain wo contrast CPT Code: 33047 Report Number: [id number] Reason for Exam: followup parietal lesio [...] MD 11/24/21 0 558 TD/TT: 11/23/21 1026Tech: [id number] cc: HRSSPETE; PCPNO* Pcp-MD Renny; Cathleen [place] MD Report Dictated Date/Time Dictated By Status Radiology Report December 01, 2021 10:06am Fer Dodge MD compl eted [address] [address] Patient Name: Joaquín Barrientos [facility] rd#: [id number] Address: [address] City/State/Zip: [place] [address]: Prakash Saravia MD Insurance: [facility] /Age/Sex: 1960/61[birth year]M Self Pay Admit/Reg Date: 12/01/[address]: HEAVENLY Montes De Oca Location: ED.GS/ PCP: Pcp-Beba Marin Md Date of Service: 12/01/21 Order (s): XR chest 2V CPT Code: 09965 Report Number: [id number] Reason for Exam: chest pain Patient [...] Dodge MD 12/01/21 1011 TD/TT: 12/01/21 1006Tech: [employer] cc: LOGEM; PCPNS; RICJACQUELINE* DAKOTA Owen; Prakash Saravia MD; TERESSA CONCEPCION Report Dictated Date/Time Dictated By Status Electrocardiogram December 01, 2021 8:57am Prakash Saravia MD [address] [address] Patient Name: Joaquín Barrientos [facility] rd#: [id number] Address: [address] [facility]/State/Zip: [place] [address]: Sean Salmeron MD Insurance: [facility] /Age/Sex: 1960/61[birth year]M Self Pay Admit/Reg Date: 12/01/[address]: HEAVENLY Montes De Oca Location: 3A./KS213-I PCP: Pcp-Beba lopes Md Date of Service: 12/01/21 Order (s): EKG ED Electrocardiogram CPT Code: 88316 Report Number: [id number] Reason for Exam: Chest pain CONSIDER ACUTE [facility] Sinus rhythm with borderline 1st degree A-V [...] 2021 10:05am [place]rakash [place] [address] Patient Name: Joaquín Barrientos [facility] rd#: [id number] Address: [address] City/State/Zip: [place] [address]: Sean Salmeron MD Insurance: [facility] /Age/Sex: 1960/61[birth year]M Self Pay Admit/Reg Date: 12/01/[address]: HEAVENLY Montes De Oca Location: 3A./JC308-V PCP: PcpCarla lopes Md Date of Service: 12/01/21 Order (s): EKG ED Electrocardiogram CPT Code: 79891 Report Number: [id number] Reason for Exam: CHEST PAIN Sinus rhythm Lead(s) unsuitable for analysis: V3 Right axis deviation Right bundle branch block Dictated By: Prakash Saravia MD 12/01/21 10 05 Signed By: Prakash Saravia MD 12/02/21 0817 TD/TT: 12/01/21 1005Tech: AMADO cc: LOGEM; PCPNS* DAKOTA Owen; TERESSA RUIZ Report Dictated Date/Time Dictated By Status Radiology Report December 07, 2021 10:53pm Lary Rhodes MD completed [facility] [address] [place] [address] Patient Name: Joaquín Barrientos [address]#: [id number] Address: [address] City/State/Zip: [place] [address]: Harlan Davis DO Insurance: [facility] /Age/Sex: 1960/61[birth year]M Self Pay Admit/Reg Date: 12/07/[address]: DAKOTA Hutchinson Location: ED.GS/ PCP: Pcp-Non Staff, Date of Service: 12/07/21 Order (s): CT head/brain wo contrast CPT Code: 83705 Report Number: [id number] Reason for Exam: syncope with head [...] Lary Rhodes MD 12/07/21 9 TD/TT: 12/07/212252Tech: [id number] cc: JOSE; VIVEK; ANAM* GILBERT RUIZ PAC; Phil Davis DO Report Dictated Date/Time Dictated By Status Radiology Report December 07, 2021 10:56pm Lary Rhodes MD completed [facility] [address] [place] [address] Patient Name: Joaquín Barrientos [facility] [place] rd#: [id number] Address: [address] City/State/Zip: [place] [address]: Harlan Davis DO Insurance: [facility] /Age/Sex: 1960/61[birth year]M Self Pay Admit/Reg Date: 12/07/[address]: DAKOTA Hutchinson Location: ED.GS/ PCP: Pcp-Beba Marin Md Date of Service: 12/07/21 Order (s): CT cervical spine wo contrast CPT Code: 79208 Report Number: [id number] Reason for Exam: pain s/p fall [...] Rhodes MD 12/07/21 230 2 TD/TT: 12/07/212255Tech: [id number] cc: [email or web address]; PCPBENITA; ANAM* TERESSA RUIZ; DAKOTA Victor; Phil Davis DO Report Dictated Date/Time Dictated By Status Radiology Report December 08, 2021 7:58am Eduar Rm MD [facility] [address] [place] [address] Patient Name: Joaquín Barrientos [facility] rd#: [id number] Address: [facility] City/State/Zip: [place] [address]: Jesenia Rivas MD Insurance: [facility] /Age/Sex: 1960/61[birth year]M Self Pay Admit/Reg Date: 12/07/[address]: Rachid Chowdary PAC [facility] PCP: Pcp-Beba lopes Md Date of Service: 12/07/21 Order (s): CT abdomen pelvis w contrast; CT chest w contrast; CT thoracic spine wo contrast CPT Code: 96824; 48803; 71867 Report Num mike: [id number] Reason for Exam: L sided lower rib pain s/p fall ADDENDUM Right lower lobe segmental and subsegme ntal pulmonary emboli are noted. Preliminary wet reading was provided by TRS at the conclusion of the exam and there is no clinically significant disag reement. Addendum Dictated By: Eduar Rm MD Addendum Signed By: Eduar Rm MD 0837 DD/ /22/833 TD/TT: 12/08/2110/22/833 CHEST ABDOMEN [...] using the independent workstation, performed by the ct scan special procedures technologist was reviewed. Automated exposure control and [...] the report. Dictated By: Eduar Rm MD 12/08/21757 Signed By: Eduar Rm MD 12/08/21826 TD/TT: 12/08/21757Tech: [id number] cc: VIVEK; PUNEET MENDIETA* TERESSA RUIZ; Jesenia Rivas MD; DAKOTA Victor Report Dictated Date/Time Dictated By Status Electrocardiogram December 08, 2021 12:11am [place] [address] Patient Name: Joaquín Barrientos [facility] [address]#: [id number] Address: [facility] [address] City/State/Zip: [place] [address]: Jesenia Rivas MD Insurance: [facility] /Age/Sex: 1960/61/M Self Pay Admit/Reg Date: 12/07/[address]: Juan A garza MD Location: [address] [place], [place] [address] PCP: PcpCarla lopes Md Date of Service: 12/08/21 Order (s): EKG Electrocardiogram CPT Code: 09762 Report Number: [id number] Reason for Exam: SYNCOPE SINUS RHYTHM VENTRICULAR PREMATURE COMPLEX FIRST DEGREE AV BLOCK RBBB AND LPFB Summary: Abnormal ECG Dictated By: Warren Espinal MD 10 Signed By: Warren Espinal MD 12/08/21913 TD/TT: 12/08/2110Tech: [email or web address] cc: MONICA; VIVEK* Javy Molina MD; TERESSA RUIZ Vital Signs Vital Reading [...] November 10:45pm Height 175.26 cm December 02, 12:39am Weight 111.13 kg December 02, 022 12:39am Body Temperature 98.3 [degF] 97.6-99.6 December 03, 2021 7:25am Heart Rate 81 /min 60-December 03, 022 11:39am Respiratory rate 20 /min -December 03, 2021 7:25am Oxygen saturation by Pulse 96 % 95-100 [facility]2021 7:25am oximetry BP Systolic 135 mm[Hg] 90-140 December 03, 022 7:25am BP Diastolic 47 mm[Hg] 60-90 December 03, 7:25am BMI (Body Mass Index) 36.2 kg/m2 December 02, 2021 12:39am Height 175.26 cm December 08 2:22am Weight 112.26 kg December 08 2:22am Body Temperature 98.4 [degF] 97.6-99.6 December 08, 2021 7:55am Heart Rate 80 /min -December 08, 022 7:55am Respiratory rate 20 /min -December 08, 2021 7:55am Oxygen saturation by Pulse 99 % 95-100 2021 7:55am oximetry BP Systolic 145 mm[Hg] 90-140 December 08, 022 7:55am BP Diastolic 78 mm[Hg] 60-90 December 08, 022 7:55am BMI (Body Mass Index) 36.5 kg/m2 December [...] 34pm Advance Directives No December 08, 2021 2:30am Health Care Proxy No December 08, 2021 2:30am Pt has Medical Orders for Life Sustaining Tx No December 08, 2021 2:30am Form (MOLST)? Insurance Providers Guarantor Joaquín Barrientos Address [address] [place] [address] Contact Info. Home Phone: Payer Policy Id Coverage Id Subscriber's Subscriber Effective Expi ration Name Id Date Date [facility] [id number] Joaquín Barrientos [id number] [employer] Medicare A&B [id number] Joaquín Barrientos [id number] Self Pay Self N/A Encounters Encounter Location(s) Arrival/Admit Date Discharge/Depart Date Provider(s) Discharged [facility] November 21, 2021 November 23, 2021 Zamora , Inpatient Medical 9:59am 4:58pm Center-3A Departed [facility] November 28, 2021 November 29, 2021 nul l Emergency Medical 9:07pm 12:08am Center-Emergency Dept Discharged [facility] December 03, December 03, 2021 Luther Salmeron , Inpatient Medical 2021 9:24am 1:31pm Center-3A Admitted [facility] December 07 [facility] Inpatient Medical 2021 11:44pm MD Rob Center-3B Recent Diagnosis Onset Date Abdominal pain BPH (benign prostatic hyperplasia) Cardiac defibrillator in situ Chest pain Neck pain Tetralogy of Fallot Essential hypertension Mixed hyperlipidemia Paroxysmal atrial fibrillation Type 2 diabetes mellitus Atypical chest pain Cardiac defibrillator in situ Chest pain Essential hypertension Paroxysmal atrial fibrillation Readmission after hospitalization within last 30 days Syncope Diabetes Functional Status Observation Response Date Recorded Assistive Devices None November 21, 2021 1: 46pm Ambulation Tolerance [facility] November 23, 2021 1 0:43am Bathing Type Self Care November 23, 2021 10 :43am Date of Last Bowel Movement 11/23/21 November 23, 2021 11:58am Oral Care Teeth Brushing November 23, 2021 10 :43am Mouth Rinse November 23, 2021 10 :43am Assistive Devices None December 02, 2021 11:25am Ambulation Tolerance [facility] December 03, 2021 4:07am Date of Last Bowel Movement 12/03/21December 4:07am Oral Care Teeth Brushing December 03, 2021 4:07am Mouth Rinse December 03, 2021 4:07am Assistive Devices None December 08, 2021 2:30am Mental Status Observation Response Date Recorded Arousable [...] 03, 2021 4:07am Arousable To Name December 08, 2021 2:30am Patient Behavior Cooperative December 08, 2021 2:30am Anxious December 08, 2021 2:30am Comprehension Ability Understands Concepts December 08 2:30am Level of Consciousness Awake December 08 2:30am Alert December 08, 2021 2:30am Appropriate December 08, 2021 2:30am Follows Commands December 08, 2021 2:30am Assessments Diagnosis Onset Date Resolution Status Abdominal pain acute BPH (benign prostatic hyperplasia) acute Cardiac defibrillator in situ ac [employer] Chest pain acute Neck pain acute Tetralogy of Fallot chronic Essential hypertension chronic Mixed hyperlipidemia chronic Paroxysmal atrial fibrillation c hronic Type 2 diabetes mellitus chronic Atypical chest pain acute Cardiac defibrillator in situ ac [employer] Chest pain acute Essential hypertension chronic Paroxysmal atrial fibrillation c hronic Readmission after hospitalization within last 30 acute days Syncope acute Diabetes chronic Plan of Treatment Future Tests Future scheduled test information is unavailable Pending Tests Test Name Date ordered White Blood Count December 08, 2021 8:53am Red Blood Count December 08, 2021 8:53am Hemoglobin December 08, 2021 8:53am Hematocrit December 08, 2021 8:53am Mean Corpuscular Volume December 08, 2021 8:53am Mean Corpuscular Hemoglobin December 08, 2021 8:53am Mean Corpuscular Hemoglobin Concent December 08 8:53am Red Cell Distribution Width December 08, 2021 8:53am Platelet Count December 08, 2021 8:53am Neutrophils (%) (Auto) December 08, 2021 8:53am Lymphocytes (%) (Auto) December 08, 2021 8:53am Monocytes (%) (Auto) December 08, 2021 8:53am Eosinophils (%) (Auto) December 08, 2021 8:53am Basophils (%) (Auto) December 08, 2021 8:53am Neutrophils # (Auto) December 08, 2021 8:53am Lymphocytes # (Auto) December 08, 2021 8:53am Basophils # (Auto) December 08, 2021 8:53am Sodium Level December 08, 2021 8:53am Potassium Level December 08, 2021 8:53am Chloride Level December 08, 2021 8:53am Carbon Dioxide Level December 08, 2021 8:53am Blood Urea Nitrogen December 08, 2021 8:53am Creatinine December 08, 2021 8:53am Estimated GFR () December 08, 2021 8 :53am Estimated GFR (Non- December 08 8:53am Glucose Level December 08, 2021 8:53am Calcium Level December 08, 2021 8:53am Phosphorus Level December 08, 2021 8:53am Magnesium Level December 08, 2021 8:53am VTE Risk Assessment Medical November 20, 2021 4:17am VTE Risk Assessment Medical December 03, 2021 9:23am VTE Risk Assessment Medical December 01, 2021 3:24pm Comprehensive Metabolic Panel December 08, 2021 8:39 am Magnesium December 08, 2021 8:39am Phosphorous December 08, 2021 8:39am Future Visits Future appointment information is unavailable Referrals to Other Providers Reason for Referral Start Provider Provider Contact Provider Address Referral Date Information Pcp-Md MD TERESSA Lawson Work Phone: [address] [place] [address] [address] [place] [address] [place] [address] TERESSA RUIZ Work Phone: [address] [place] [address] [address] [facility] [address] Wally Stone Work Phone: [facility] MD Diana [address], [address] [facility] [address] Future Procedures Procedure Name Scheduled Date Hospital [...] Spiritual Care Consult December 01, 2021 11:47pm Locum Tenens Consult December 01, 2021 11:47pm Cardiology Consult [...] Saline Lock Insert/Manage November 28, 2021 9:30pm Basic Metabolic Panel December 08, 2021 8:53am Complete Blood Count Auto Diff December 08, 2021 8:5 3am Echo TTE cmp w/dop wo contrast December 08, 2021 8:2 5am EKG ED Electrocardiogram December 07, 2021 8:29pm XR hip pelvis LT min 2V December 07, 2021 8:30pm Hospital Level of Care December 07, 2021 11:44pm Activity December 07, 2021 11:44pm Cardiology Consult December 07, 2021 11:46pm Complete Blood Count Auto Diff December 09, 2021 6:0 0am Code Status December 07, 2021 11:44pm Hematology Consult December 08, 2021 8:27am Add [...] will need to follow up with your [facility] doctor within 1-2 weeks. Please see the [...]
--- OUTSIDE RECORDS SUMMARY | 2022-04-07 13:29 | XMS_ITS | Continuity of Care Document ---
:1960 Author Organization Address [address] [place] [address] Phone Care Team Providers Name Role Phone [...] Other Provider MD Jesenia Rivas Attending Provider Chief Complaint and Reason for [...] Verified Status atorvastatin Allergy Unknown Hives December 15, Yes A ctive 2021 9:10am peas Allergy Unknown Hives (Green December 15, Yes A ctive Peas) 2021 9:10am bee venom protein Allergy Unknown December 15, Yes Active (honey bee) 2021 9:10am Social History Smoking Status Status Start Date End Date Date of Observat ion Never smoked tobacco (finding) M [facility] 2019 6:38am Observation Status Observation Response Date of Response Living Situation Shelter November 21, 2021 12 :13pm Living Situation Sober House December 03, 2021 9:23am Living Situation Residential Treatment November 28, 2021 10:44pm Facility Is Anyone Dependent on your No December 2:30am Care? Living Situation Private Home December 08, 2021 2:30am Living Situation Residential Treatment December 11 9:00pm Facility Lives With Other December 12, 2021 1:59pm Additional Data Assigned Sex Male Family History [...] Disconti 30 MG PO DAILY November Mononitrate 2021 8th, 12:00am 2021 12:22p m Metoprolol [...] Active 50 MG PO DAILY November ne 2021 12:00am Magnesium Active 30 ML PO [...] m Rivaroxaban Active 0 .ROUTE .COMPLEX 1 t catracho one-15 (Xarelto er , mg tablet Dvt-Pe Treat 2021 twice d aily 30d Start) 15 12:00am for 21 days, mg (42)- 20 then one -20 mg (9) mg tablet Tablets,Dose once da meggan; Pack must take with meal/food Acetaminophen Active 650 MG PO DAILY er 2021 12:00am Rivaroxaban Disconti 15 MG PO TWICE A DAY Sep tem Continue (Xarelto) 15 nued er , mike until mg Tablet 2022 03, 12/29/2021 12:00am 2021 12:48p m Rivaroxaban Active 20 MG PO DAILY Start from (Xarelto) 20 er 8th, 12/30 mg Tablet 2021 12:00am Nicotine Active 1 PATCH TRANSDE EVERY 24 15 RM HOURS er 2021 12:25pm Rivaroxaban Active 15 MG PO TWICE A DAY 0 Xarelto 15 mg p.o. twice daily, until 12/29/2021 (Xarelto) 15 er Patient should be continued on Xarelto 20 mg p.o. daily from 12/30/2021. mg Tablet 2021 12:47pm Procedures Procedure Date Performed Status EKG ED [...] Comment Site Add-On Test November Added test [facility] Request 2021 [address] [facility] 3:59pm [place]o [place] A [id number] Add-On Test December Added test [facility] Request 2021 [address] [facility] 1:50am Davy M A 52824 White Blood November 5.6 X10 4.5-11.0 Jasvir [facility] Count 2021 3/uL [address] [facility] 8:20am Davy M A 88779 White Blood [facility] 8.5 X10 4.5-11.0 [facility] Count 2021 3/uL [address] [facility] [facility] [address] 9:50pm Davy M A 73163 White Blood Brittany 7.2 X10 4.5-11.0 [facility] Count 2021 3/uL [address] [facility] [address] 6:11am Davy M A 80961 White Blood Brittany 6.2 X10 4.5-11.0 [facility] Count 2021 3/uL [address] [facility] 6:27am Davy M A 29577 White Blood Brittany 8.3 X10 4.5-11.0 [facility] Count 2021 3/uL [address] [facility] 7:04am Davy M A 88987 Red Blood Count November 3.95 X10 4.00-5.50 [facility] 2021 6/uL [address] [facility] 8:20am Davy M A 48277 Red Blood Count November 4.46 X10 4.00-5.50 [facility] 2021 6/uL [address] [facility] 9:50pm Davy M A 97216 Red Blood Count December 4.53 X10 4.00-5.50 [facility] 2021 6/uL [address] [facility] 6:11am Davy M A 42293 Red Blood Count December 4.02 X10 4.00-5.50 [facility] 2021 6/uL [address] [facility] 6:27am Davy M A 13114 Red Blood Count December 4.49 X10 4.00-5.50 [facility] 2021 6/uL [address] [facility] 7:04am Davy M A 02208 Hemoglobin November 12.0 g/dl 12.0-17.0 [facility] 2021 [address] [facility] 8:20am Davy M A 04084 Hemoglobin November 13.8 g/dl 12.0-17.0 [facility] 2021 [address] [facility] 9:50pm Davy M A 55099 Hemoglobin December 13.7 g/dl 12.0-17.0 [facility] 2021 [facility] 6:11am Davy M A 31439 Hemoglobin December 12.5 g/dl 12.0-17.0 [facility] 2021 [address] [facility] 6:27am Davy M A 67390 Hemoglobin December 13.3 g/dl 12.0-17.0 [facility] 2021 [facility] 7:04am Davy M A 16421 Hematocrit November 36.9 % 35.0-50.0 [facility] 2021 [facility] 8:20am Davy M A 61252 Hematocrit November 41.4 % 35.0-50.0 [facility] 2021 [facility] 9:50pm Davy M A 50381 Hematocrit December 41.9 % 35.0-50.0 [facility] 2021 [facility] 6:11am Davy M A 57298 Hematocrit December 37.3 % 35.0-50.0 [facility] 2021 [facility] 6:27am Davy M A 40849 Hematocrit December 40.8 % 35.0-50.0 [facility] 2021 [facility] 7:04am Davy M A 34208 Mean November 93.4 fl 80.0-100.0 [facility] Corpuscular [address] [facility] [address] Volume 8:20am Davy M A 98333 Mean November 92.8 fl 80.0-100.0 [facility] [address] [facility] [address] Volume 9:50pm Davy M A 61092 Mean December 92.5 fl 80.0-100.0 [facility] [employer] [address] [facility] [facility] [address] Volume 6:11am Davy M A 34718 Mean Brittany 92.8 fl 80.0-100.0 [facility] [employer] [address] [facility] [address] Volume 6:27am Davy M A 89131 Mean December 90.9 fl 80.0-100.0 [facility] [employer] [address] Volume 7:04am Davy M A 61925 Mean November 30.4 pg 27.0-34.0 [facility] [employer] [address] Hemoglobin 8:20am [facility] 31749 Mean November 30.9 pg 27.0-34.0 [facility] [employer] [address] Hemoglobin 9:50pm [facility] 26200 Mean December 30.2 pg 27.0-34.0 [facility] [employer] [address] Hemoglobin 6:11am [facility] Mean December 31.1 pg 27.0-34.0 [facility] [employer] [address] Hemoglobin 6:27am [facility] 12850 Mean December 29.6 pg 27.0-34.0 [facility] [employer] [address] Hemoglobin 7:04am [facility] 78879 Mean November 32.5 g/dl 31.0-36.0 [facility] [employer] [address] Hemoglobin 8:20am [facility] 28033 Concent Mean November 33.3 g/dl 31.0-36.0 [facility] [employer] [address] Hemoglobin 9:50pm [facility] Concent Mean December 32.7 g/dl 31.0-36.0 [facility] [employer] [address] Hemoglobin 6:11am [facility] Concent Mean December 33.5 g/dl 31.0-36.0 [facility] [employer] [address] Hemoglobin 6:27am [facility] Concent Mean December 32.6 g/dl 31.0-36.0 [facility] [employer] [address] Hemoglobin 7:04[place] [address] Concent Red Cell November 12.6 % 11.5-15.0 [facility] Distribution [address] Width 8:20am Davy M A 31503 Red Cell November 12.5 % 11.5-15.0 [facility] Distribution [address] Width 9:50pm Davy M A 40020 Red Cell December 12.5 % 11.5-15.0 [facility] Distribution [address] Width 6:11am Davy M A 10651 Red Cell December 12.3 % 11.5-15.0 [facility] Distribution [address] Width 6:27am Davy M A 90738 Red Cell December 12.4 % 11.5-15.0 [facility] Distribution [address] Width 7:04am Davy M A 54913 Platelet Count November 90 X10 3/uL 150-400 [facility] [address] 8:20am Davy M A 02648 Platelet Count November 103 X10 150-400 [facility] 2021 3/uL [address] 9:50pm Davy M A 07299 Platelet Count December 103 X10 150-400 [facility] 2021 3/uL with previous [address] 6:11am results Davy M A 60728 Platelet Count December 90 X10 3/uL 150-400 [facility] 2021 with previous [address] 6:27am results Davy M A 05175 Platelet Count December 101 X10 150-400 [facility] 2021 3/uL [address] 7:04am Davy M A 57115 Immature November 1.1 % [facility] Granulocyte % [address] (Auto) 8:20am Davy M A 66490 Immature November 1.5 % [facility] Granulocyte % 2021 [address] [facility] [address] (Auto) 9:50pm Davy M A 30629 Immature Brittany 1.9 % [facility] Granulocyte % [address] (Auto) 6:11am Davy M A 81481 Immature Brittany 3.6 % [facility] Granulocyte % [address] (Auto) 9:28pm Davy M A 42022 Neutrophils (%) November 62.7 % [facility] (Auto) [address] 8:20am Davy M A 37450 Neutrophils (%) November 66.2 % [facility] (Auto) [address] 9:50pm Davy M A 24505 Neutrophils (%) December 61.5 % [facility] (Auto) [address] 6:11am Davy M A 74844 Neutrophils (%) December Not [facility] (Auto) [address] 6:27am Davy M A 66344 Neutrophils (%) December Not [facility] (Auto) 2021 Reportable [address] [facility] [facility] [address] 7:04am Davy M A 72922 Lymphocytes (%) November 18.8 % [facility] (Auto) [address] 8:20am Davy M A 30969 Lymphocytes (%) November 18.0 % [facility] (Auto) [address] 9:50pm Davy M A 64607 Lymphocytes (%) December 19.3 % [facility] (Auto) [address] 6:11am Davy M A 60430 Lymphocytes (%) December Not [facility] (Auto) [address] 6:27am Davy M A 66606 Lymphocytes (%) December Not [facility] (Auto) [address] Reportable [address] 7:04am Davy M A 31400 Monocytes (%) November 9.8 % [facility] (Auto) [address] 8:20am Davy M A 80461 Monocytes (%) November 8.7 % [facility] (Auto) [address] 9:50pm Davy M A 12896 Monocytes (%) December 10.0 % [facility] (Auto) [address] 6:11am Davy M A 23404 Monocytes (%) December Not [facility] (Auto) 2021 Reportable [address] 6:27am Davy M A 32910 Monocytes (%) December Not [facility] (Auto) 2021 Reportable [address] 7:04am Davy M A 80476 Eosinophils (%) November 6.2 % [facility] (Auto) [address] 8:20am Davy M A 67343 Eosinophils (%) November 4.2 % [facility] (Auto) [address] 9:50pm Davy M A 79070 Eosinophils (%) December 6.0 % [facility] (Auto) [address] 6:11am Davy M A 67253 Eosinophils (%) December Not [facility] (Auto) [address] 6:27am Davy M A 21935 Eosinophils (%) December Not [facility] (Auto) [address]able [address] 7:04am Davy M A 83769 Basophils (%) November 1.4 % [facility] (Auto) [address] 8:20am Davy M A 23818 Basophils (%) November 1.4 % [facility] (Auto) [address] 9:50pm Davy M A 58906 Basophils (%) December 1.3 % [facility] (Auto) [address] 6:11am Davy M A 63257 Basophils (%) Brittany Not [facility] (Auto) 2021 Reportable [address] 6:27am Davy M A 06003 Basophils (%) Brittany Not [facility] (Auto) 2021 Reportable [address] 7:04am Davy M A 92651 Immature [facility] 0.06 X10 0.00-0.09 [facility] Granulocyte # 2021 3/uL [address] (Auto) 8:20am Davy M A 99299 Immature [facility] 0.13 X10 0.00-0.09 [facility] Granulocyte # 2021 3/uL [address] (Auto) 9:50pm Davy M A 70716 Immature Brittany 0.14 X10 0.00-0.09 [facility] Granulocyte # 2021 3/uL [address] (Auto) 6:11am Davy M A 14735 Immature Brittany 0.28 X10 0.00-0.09 [facility] Granulocyte # 2021 3/uL [address] (Auto) 9:28pm Davy M A 01812 Neutrophils # [facility] 3.5 X10 1.5-7.8 [facility] (Auto) 2021 3/uL [address] 8:20am Davy M A 17107 Neutrophils # [facility] 5.6 X10 1.5-7.8 [facility] (Auto) 2021 3/uL [address] 9:50pm Davy M A 24322 Neutrophils # Brittany 4.4 X10 1.5-7.8 [facility] (Auto) 2021 3/uL [address] 6:11am Davy M A 39914 Neutrophils # Brittany Not [facility] (Auto) 2021 Reportable [address] 6:27am Davy M A 97544 Neutrophils # Brittany Not [facility] (Auto) 2021 Reportable [address] 7:04am Davy M A 85057 Lymphocytes # [facility] 1.1 X10 1.0-4.8 [facility] (Auto) 2021 3/uL [address] [facility] 8:20am Davy M A 88682 Lymphocytes # [facility] [place] 1.5 X10 1.0-4.8 [facility] (Auto) 2021 3/uL [address] [facility] 9:50pm Davy M A 68395 Lymphocytes # Brittany 1.4 X10 1.0-4.8 [facility] (Auto) 2021 3/uL [address] [facility] 6:11am Davy M A 50107 Lymphocytes # Brittany Not [facility] (Auto) [address] [place] [address] 6:27am Davy M A 90576 Lymphocytes # Brittany Not [facility] (Auto) [address] [place] [address] 7:04am Davy M A 45518 Monocytes # [facility] 0.6 X10 0.0-0.8 [facility] (Auto) 2021 3/uL [address] [facility] 8:20am Davy M A 78064 Monocytes # [place] 0.7 X10 0.0-0.8 [facility] (Auto) 2021 3/uL [address] [facility] 9:50pm Davy M A 52839 Monocytes # Brittany 0.7 X10 0.0-0.8 [facility] (Auto) 2021 3/uL [address] [facility] 6:11am Davy M A 67925 Monocytes # Brittany 0.7 X10 0.0-0.8 [facility] (Auto) 2021 3/uL [address] [facility] 9:28pm Davy M A 47596 Eosinophils # [facility] 0.4 X10 0.0-0.5 [facility] (Auto) 2021 3/uL [address] [facility] [address] 8:20am Davy M A 96012 Eosinophils # [facility] 0.4 X10 0.0-0.5 [facility] (Auto) 2021 3/uL [address] [facility] [address] 9:50pm Davy M A 00670 Eosinophils # Brittany 0.4 X10 0.0-0.5 [facility] (Auto) 2021 3/uL [address] [facility] [address] 6:11am Davy M A 23460 Eosinophils # Brittany 0.6 X10 0.0-0.5 [facility] (Auto) 2021 3/uL [address] [facility] [address] 9:28pm Davy M A 43014 Basophils # [place] 0.1 X10 0.0-0.2 [facility] (Auto) 2021 3/uL [address] [facility] [address] 8:20am Davy M A 63975 Basophils # [place] 0.1 X10 0.0-0.2 [facility] (Auto) 2021 3/uL [address] [facility] [address] 9:50pm Davy M A 48865 Basophils # Brittany 0.1 X10 0.0-0.2 [facility] (Auto) 2021 3/uL [address] [facility] [address] 6:11am Davy M A 77893 Basophils # Brittany Not [facility] (Auto) 2021 Reportable [address] [facility] 6:27am Davy M A 92081 Basophils # Brittany Not [facility] (Auto) 2021 Reportable [facility] 7:04[facility] Davy M A 67134 Neutrophils % Brittany 59 % [facility] (Manual) 2021 [address] [facility] 6:27am Davy M A 63682 Neutrophils % Brittany 51 % [facility] (Manual) 2021 [address] [facility] 7:04am Davy M A 43143 Band Brittany 1 % 0-6 [facility] Neutrophils % 2021 [address] [facility] (Manual) 6:27am Davy M A 94433 Band Brittany 2 % 0-6 [facility] Neutrophils % [address] [facility] (Manual) 7:04am Davy M A 63065 Lymphocytes % Brittany 19 % [facility] (Manual) 2021 235 [facility] 6:27am Davy M A 20042 Lymphocytes % Brittany 28 % [facility] (Manual) 2021 [facility] 7:04am Davy M A 73008 Reactive Brittany 1 % [facility] Lymphocytes % 2021 No rth [facility] (Manual) 6:27am Davy M A 92239 Reactive Brittany 2 % [facility] Lymphocytes % [address] [facility] (Manual) 7:04am Davy M A 58710 Monocytes % Brittany 8 % [facility] (Manual) 2021 [facility] 6:27am Davy M A 26935 Monocytes % Brittany 13 % [facility] (Manual) 2021 [facility] 7:04am Davy M A 92268 Eosinophils % Brittany 9 % [facility] (Manual) 2021 [facility] 6:27am Davy M A 54507 Eosinophils % Brittany 4 % [facility] (Manual) 2021 [facility] 7:04am Davy M A 67791 Basophils % Brittany 1 % [facility] (Manual) 2021 [facility] 8:48pm Davy M A 94242 Metamyelocytes Brittany 3 % 0-1 [facility] % (manual) 2021 [facility] 6:27am Davy M A 18702 Myelocytes % Brittany 2 % 0-0 [facility] (Manual) 2021 [facility] 8:48pm Davy M A 90503 Neutrophils # Brittany 3.7 X10 1.5-7.8 [facility] (Manual) 2021 3/uL [address] [facility] 6:27am Davy M A 35545 Neutrophils # Brittany 4.4 X10 1.5-7.8 [facility] (Manual) 2021 3/uL [address] [facility] 7:04am Davy M A 26873 Lymphocytes # Brittany 1.2 X10 1.0-4.8 [facility] (Manual) 2021 3/uL [address] [facility] 6:27am Davy M A 85710 Lymphocytes # Brittany 2.5 X10 1.0-4.8 [facility] (Manual) 2021 3/uL [address] [facility] [address] 7:04am Davy M A 76249 Monocytes # Brittany 0.5 X10 0.0-0.8 [facility] (Manual) 2021 3/uL [address] [facility] 6:27am Davy M A 07845 Monocytes # Brittany 1.1 X10 0.0-0.8 [facility] (Manual) 2021 3/uL 235 [facility] 7:04am Davy M A 39268 Eosinophils # Brittany 0.6 X10 0.0-0.5 [facility] (Manual) 2021 3/uL [address] [facility] 6:27am Davy M A 62250 Eosinophils # Brittany 0.3 X10 0.0-0.5 [facility] (Manual) 2021 3/uL [address] [facility] 7:04am Davy M A 71525 Basophils # Brittany 0.1 X10 0.0-0.2 [facility] (Manual) 2021 3/uL [address] [facility] 8:48pm Davy M A 68687 Platelet Brittany Decreased [facility] Estimate [address] [place] [address] 6:27am Davy M A 91668 Platelet Brittany Decreased [facility] Estimate 2021 235 [facility] 7:04am Davy M A 94794 Red Blood Cell Brittany Normal [facility] Morphology 2021 morphology [address] [facility] 8:53am Davy M A 61305 Red Blood Cell Brittany Normal [facility] Morphology 2021 morphology [address] [facility] [address] 7:04am Davy M A 51926 Polychromasia December Slight [facility] 2021 [address] [facility] 6:27am Davy M A 50258 Hypochromasia December Slight [facility] 2021 [address] [facility] [address] 6:27am Davy M A 82173 Ovalocytes Brittany Slight [facility] 2021 235 [facility] 6:27am Davy M A 30691 Hemoglobin A1c November 6.6 4.3-5.9 [facility] 2021 235 [facility] 6:10am Davy M A 76012 Estimated November 143 mg/dl [facility] Average Glucose 2021 [facility] (eAG) 6:10am Davy M A 40505 Nucleated Red November 0.0 /100 0.0-0.0 [facility] Blood Cells % [address] [facility] 8:20am Davy M A 47397 Nucleated Red [facility] 0.0 /100 0.0-0.0 [facility] Blood Cells % 2021 WBC [address] [facility] 9:50pm Davy M A 86220 Nucleated Red Brittany 0.0 /100 0.0-0.0 [facility] Blood Cells % [address] WBC [address] 6:11am Davy M A 34853 Nucleated Red Brittany 0.0 /100 0.0-0.0 [facility] Blood Cells % 2021 WBC [address] 6:27am Davy M A 13920 Nucleated Red Brittany 0.0 /100 0.0-0.0 [facility] Blood Cells % [address] [facility] 7:04am Davy M A 44615 Prothrombin November 11.1 9.3-12.1 [facility] Time 2021 Seconds 235 [facility] 5:31am Davy M A 98255 Prothromb Time November 1.0 0.9-1.2 Reference Interval is for non-anticoagulated patients. [facility] 2021 Suggested I NR Therapeutic Range for Vitamin K antogonist therapy: 235 [facility] Ratio 5:31am LEVELS OF Davy M A 25271 THERAPY INDICATIONS TARGET INR RANGE Standard Dose Venous Thrombosis, 2.0 - 3.0 Atrial Fibrillation , Pulmonary Embolism. High Dose Valvular H eart Disease, 2.5 - 3.5 Mechanical Heart, Intracardiac Thromb osis. Urine Color November Yellow Yellow [facility] 2021 [address] [facility] [address] 10:06pm Davy M A 22444 Urine Color December Yellow Yellow [facility] 2021 [address] [facility] [address] 12:23am Davy M A 37479 Urine Clarity November Clear Clear [facility] 2021 [address] [facility] [address] 10:06pm Davy M A 02567 Urine Clarity December Clear Clear [facility] 2021 [address] [facility] [address] 12:23am Davy M A 36092 Urine pH [facility] 5.5 5.0-8.0 [facility] 2021 [address] [facility] [address] 10:06pm Davy M A 85376 Urine pH December 5.5 5.0-8.0 [facility] 2021 [address] [facility] 12:23am Davy M A 19762 Urine Specific [facility] 1.013 1.005-1.03 [facility] [place] 2021 0 [address] [facility] [address] 10:06pm Davy M A 46267 Urine Specific Brittany 1.007 1.005-1.03 [facility] 2021 0 [address] [facility] [address] 12:23am Davy M A 72738 Urine Blood November Negative Negative [facility] 2021 mg/dL 235 [facility] 10:06pm Davy M A 60847 Urine Blood December Negative Negative [facility] 2021 mg/dL 235 [facility] 12:23am Davy M A 01121 Urine Protein November Negative Negative [facility] 2021 mg/dL 235 [facility] 10:06pm Davy M A 63482 Urine Protein December Negative Negative [facility] 2021 mg/dL [address] [facility] [address] 12:23am Davy M A 44107 Urine Glucose November Negative Negative [facility] (UA) 2021 mg/dl 235 [facility] 10:06pm Davy M A 16325 Urine Glucose December Negative Negative [facility] (UA) 2021 mg/dl [address] 12:23am Davy M A 40241 Urine Ketones November Negative Negative [facility] 2021 mg/dL 235 [facility] 10:06pm Davy M A 20888 Urine Ketones December Negative Negative [facility] 2021 mg/dL [address] [facility] 12:23am Davy M A 91255 Urine Nitrate November Negative Negative [facility] 2021 235 [facility] 10:06pm Davy M A 15659 Urine Nitrate December Negative Negative [facility] 2021 235 [facility] 12:23am Davy M A 36868 Urine Bilirubin November Negative Negative [facility] 2021 mg/dL 235 [facility] 10:06pm Davy M A 47580 Urine Bilirubin December Negative Negative [facility] 2021 mg/dL 235 [facility] 12:23am Davy M A 05792 Urine [facility] 0.2 E.U./dL Normal [facility] Urobilinogen 2021 235 No [facility] 10:06pm Davy M A 09690 Urine Brittany 0.2 E.U./dL Normal [facility] Urobilinogen 2021 235 [facility] 12:23am [place]y M A 02286 Urine Leukocyte November Negative Negative [facility] Esterase 2021 mg/dL 235 [facility] 10:06pm Davy M A 93201 Urine Leukocyte December Negative Negative [facility] Esterase 2021 mg/dL 235 [facility] 12:23am Davy M A 06757 Sodium Level November 141 mmol/L 137-146 [facility] 2021 235 [facility] 6:10am Davy M A 23582 Sodium Level November 137 mmol/L 137-146 [facility] 2021 235 [facility] 9:50pm Davy M A 13227 Sodium Level December 138 mmol/L 137-146 [facility] 2021 235 [facility] 6:11am Davy M A 58811 Sodium Level December 143 mmol/L 137-146 [facility] 2021 235 [facility] 6:27am Davy M A 25298 Sodium Level December 141 mmol/L 137-146 [facility] 2021 [facility] 7:04am Davy M A 06786 Potassium Level November 4.2 mmol/L 3.5-5.3 [facility] 2021 [facility] 6:10am Davy M A 33608 Potassium Level November 4.7 mmol/L 3.5-5.3 Specimen [facility] 2021 hemolyzed, 235 [facility] 9:50pm results Davy M A 40172 affected Potassium Level December 4.6 mmol/L 3.5-5.3 Specimen [facility] 2021 hemolyzed, 235 [facility] 6:11am results Davy M A 27356 affected Potassium Level December 4.5 mmol/L 3.5-5.3 [facility] 2021 [facility] 6:27am Davy M A 91045 Potassium Level December 4.3 mmol/L 3.5-5.3 [facility] 2021 [facility] 7:04am Davy M A 00361 Chloride Level November 102 mmol/L 98-107 [facility] 2021 [facility] 6:10am Davy M A 68281 Chloride Level November 99 mmol/L 98-107 [facility] 2021 [facility] 9:50pm Davy M A 23351 Chloride Level December 99 mmol/L 98-107 [facility] 2021 235 [facility] 6:11am Davy M A 74878 Chloride Level December 103 mmol/L 98-107 [facility] 2021 235 [facility] 6:27am Davy M A 67996 Chloride Level December 103 mmol/L 98-107 [facility] 2021 235 [facility] 7:04am Davy M A 22346 Carbon Dioxide November 26 mmol/L 23-32 [facility] Level 2021 235 [facility] 6:10am Davy M A 56585 Carbon Dioxide November 27 mmol/L [facility] Level 2021 [address] [facility] [address] 9:50pm Davy M A 83466 Carbon Dioxide December 24 mmol/L [facility] Level 2021 [address] [facility] [address] 6:11am Davy M A 97403 Carbon Dioxide December 29 mmol/L [facility] Level 2021 [address] [facility] [address] 6:27am Davy M A 14879 Carbon Dioxide December 29 mmol/L [facility] Level 2021 [address] [address] 7:04am Davy M A 98549 Anion Gap November 13 mmol/L 08-15 [facility] 2021 235 [facility] 6:10am Davy M A 90457 Anion Gap November 11 mmol/L 08-15 [facility] 2021 235 [facility] 9:50pm Davy M A 22128 Anion Gap December 16 mmol/L 08-15 [facility] 2021 235 [facility] 6:11am Davy M A 35944 Anion Gap December 11 mmol/L 08-15 [facility] 2021 235 [facility] 6:27am Davy M A 75058 Anion Gap December 9 mmol/L 08-15 [facility] 2021 235 [facility] 7:04am Davy M A 94423 Blood Urea November 16 mg/dl 08-25 [facility] Nitrogen 2021 235 [facility] 6:10am Davy M A 80918 Blood Urea November 22 mg/dl 08-25 [facility] Nitrogen 2021 [address] [facility] [address] 9:50pm Davy M A 15660 Blood Urea December 31 mg/dl 08-25 [facility] Nitrogen 2021 [address] [facility] [address] 6:11am Davy M A 79269 Blood Urea December 23 mg/dl 08-25 [facility] Nitrogen 2021 [address] [address] 6:27am Davy M A 82860 Blood Urea December 23 mg/dl 08-25 [facility] Nitrogen [address] [facility] [address] 7:04am [place] M A 04911 Creatinine November 1.1 mg/dL 0.6-1.4 [facility] [address] [address] [address] 6:10am [place]y M A 99908 Creatinine November 1.3 mg/dL 0.6-1.4 [facility] [address] 9:50pm [place] M A 09512 Creatinine December 1.3 mg/dL 0.6-1.4 [facility] [address] 6:11am [place] M A 47943 Creatinine December 1.2 mg/dL 0.6-1.4 [facility] [address] 6:27am Davy M A 23579 Creatinine December 1.1 mg/dL 0.6-1.4 [facility] [address] 7:04am Davy M A 22973 Estimated November 74.7 ml/min This value [facility] Creatinine 2021 is calculated [address] Clearance 6:10am [place] [address] Gault Equation using ideal body weight. This result is dependent on an accurate patient height and weight which is obtained from patients medical record. Cockcroft, D.W. and M.H. Gault. Prediction of creatinine clearance from serum creatinine. Nephron. 1975. 16(1):31-41. Estimated November 74.4 ml/min This value [facility] Creatinine 2021 is calculated [address] Clearance 9:50pm [place] [address] Gault Equation using ideal body weight. This result is dependent on an accurate patient height and weight which is obtained from patients medical record. Cockcroft, D.W. and M.H. Gault. Prediction of creatinine clearance from serum creatinine. Nephron. 1975. 16(1):31-41. Estimated December 75.2 ml/min This value [facility] Creatinine 2021 is calculated [address] Clearance 6:11am [place] [address] Gault Equation using ideal body weight. This result is dependent on an accurate patient height and weight which is obtained from patients medical record. Cockcroft, D.W. and M.H. Gault. Prediction of creatinine clearance from serum creatinine. Nephron. 1975. 16(1):31-41. Estimated December 81.9 ml/min This value [facility] Creatinine 2021 is calculated [address] Clearance 6:27am [place] [address] Gault Equation using ideal body weight. This result is dependent on an accurate patient height and weight which is obtained from patients medical record. Cockcroft, D.W. and M.H. Gault. Prediction of creatinine clearance from serum creatinine. Nephron. 1975. 16(1):31-41. Estimated December Enterprise Integration [employer] Unable to [facility] Creatinine 2021 Calculate [address] Clearance 7:04am CRCL,Ht [place] M A [address]1866 and/or Wt missing Estimated GFR November >60 [facility] ( [address] Nepalese) 6:10am Davy M A 03719 Estimated GFR November 69 >60 [facility] ( [address] Nepalese) 9:50pm Davy M A 55579 Estimated GFR December 69 >60 [facility] ( [address] Nepalese) 6:11am Davy M A 29938 Estimated GFR December 76 >60 [facility] ( [address] Nepalese) 6:27am Davy M A 73351 Estimated GFR December 85 >60 [facility] ( [address] Nepalese) 7:04am Davy M A 59287 Estimated GFR November 73 >60 [facility] (Non- [address] [place]alese 6:10am Davy M A 76873 Estimated GFR November 60 >60 [facility] (Non- [address] [place]alese 9:50pm Davy M A 60263 Estimated GFR December 60 >60 [facility] (Non- 2021 [address] [facility] Nepalese 6:11am Davy M A 09586 Estimated GFR December 66 >60 [facility] (Non- 2021 [address] [facility] Nepalese 6:27am Davy M A 57522 Estimated GFR December 73 >60 [facility] (Non- 2021 [address] [facility] Nepalese 7:04am Davy M A 79023 BUN/Creatinine November 14.5 10.0-20.0 [facility] Ratio 2021 235 [facility] 6:10am Davy M A 48740 BUN/Creatinine November 16.9 10.0-20.0 [facility] Ratio 2021 235 [facility] 9:50pm Davy M A 02990 BUN/Creatinine December 23.8 10.0-20.0 [facility] Ratio 2021 235 [facility] 6:11am Davy M A 69339 BUN/Creatinine December 19.2 10.0-20.0 [facility] Ratio 2021 [facility] 6:27am Davy M A 99434 BUN/Creatinine December 20.0 10.0-20.0 [facility] Ratio 2021 235 [facility] 7:04am Davy M A 34507 Glucose Level November 106 mg/dL 70-100 [facility] 2021 235 [facility] 6:10am Davy M A 88657 Glucose Level November 226 mg/dL 70-100 [facility] 2021 235 [facility] 9:50pm Davy M A 56508 Glucose Level December 145 mg/dL 70-100 [facility] 2021 235 [facility] 6:11am Davy M A 77399 Glucose Level December 103 mg/dL 70-100 [facility] 2021 235 [facility] 6:27am Davy M A 70509 Glucose Level December 131 mg/dL 70-100 [facility] 2021 235 [facility] 7:04am Davy M A 91496 Calcium Level [facility] 8.6 mg/dl 8.6-10.3 [facility] 2021 [facility] 6:10am Davy M A 35771 Calcium Level [facility] 8.8 mg/dl 8.6-10.3 [facility] 2021 [facility] 9:50pm Davy M A 20942 Calcium Level Brittany 8.4 mg/dl 8.6-10.3 [facility] 2021 235 [facility] 6:11am Davy M A 99669 Calcium Level Brittany 8.5 mg/dl 8.6-10.3 [facility] 2021 [facility] 6:27am Davy M A 67299 Calcium Level Brittany 8.7 mg/dl 8.6-10.3 [facility] 2021 [facility] 7:04am Davy M A 08612 Phosphorus Brittany 4.6 mg/dL 2.5-4.5 [facility] Level 2021 235 [facility] 6:27am Davy M A 54031 Magnesium Level Brittany 1.9 mg/dL 1.8-2.5 [facility] 2021 235 [facility] 6:27am Davy M A 56172 Magnesium Level Brittany 2.0 mg/dL 1.8-2.5 [facility] 2021 [facility] 9:28pm Davy M A 05474 Total Bilirubin November 0.3 mg/dl <1.1 [facility] 2021 [facility] 9:50pm Davy M A 61662 Total Bilirubin November 0.4 mg/dl <1.1 [facility] 2021 [facility] 9:49am Davy M A 10599 Total Bilirubin Brittany 0.4 mg/dl <1.1 [facility] 2021 [facility] 6:27am Davy M A 83298 Aspartate Amino [facility] 16 U/L 15-41 [facility] Transf 2021 235 [facility] (AST/SGOT) 9:[place] [address] Aspartate Amino November 17 U/L [facility] Transf 2021 235 [facility] (AST/SGOT) 9:[place] [address] Aspartate Amino December 14 U/L [facility] Transf 2021 235 [facility] (AST/SGOT) 6:27[place] [address] Alanine November 18 U/L [facility] Aminotransferas 2021 235 [facility] e (ALT/SGPT) 9:[place] [address] Alanine November 20 U/L [facility] Aminotransferas 2021 235 [facility] e (ALT/SGPT) 9:[place] [address] Alanine December 17 U/L [facility] Aminotransferas 2021 235 [facility] e (ALT/SGPT) 6:27[place] [address] Troponin T High November 13 ng/L <13 Normal range: Females <9 ng/L [facility] Sensitivity 2021 Males <14 ng/L 2 35 [facility] 12:10am Davy M A 10498 Values greater than or equal to 52 [...] ng/L <13 Normal range: Females <9 ng/L [facility] Sensitivity 2021 Males <14 ng/L 2 35 [facility] 1:09pm Davy M A 35402 Values greater than or equal to 52 [...] ng/L <13 Normal range: Females <9 ng/L [facility] Sensitivity 2021 Males <14 ng/L 23 5 [facility] 12:05am Davy M A 59471 Values greater than or equal to 52 [...] ng/L <13 Normal range: Females <9 ng/L [facility] Sensitivity 2021 Males <14 ng/L 2 35 [facility] 3:55pm Davy A 25705 Values greater than or equal to 52 [...] setting). Total Protein November 6.7 g/dL 6.4-8.3 [facility] 2021 235 [facility] 9:50pm Davy A 42734 Total Protein November 6.7 g/dL 6.4-8.3 [facility] 2021 235 [facility] 9:49am Davy M A 68672 Total Protein December 6.2 g/dL 6.4-8.3 [facility] 2021 235 [facility] 6:27am [place]y M A 96313 Albumin November 4.0 g/dl 4.0-5.0 [facility] 2021 235 [facility] 9:50pm Davy M A 63387 Albumin [facility] 4.3 g/dl 4.0-5.0 [facility] 2021 235 [facility] 9:49am [place]y M A 49717 Albumin Brittany 3.7 g/dl 4.0-5.0 [facility] 2021 235 [facility] 6:27am Davy M A 46606 Albumin/Globuli [facility] 1.5 1.0-2.6 [facility] n Ratio 2021 235 [facility] 9:50pm Davy M A 56726 Albumin/Globuli [facility] 1.8 1.0-2.6 [facility] n Ratio 2021 235 [facility] 9:49am Davy M A 30328 Albumin/Globuli Brittany 1.5 1.0-2.6 [facility] n Ratio 2021 235 [facility] 6:27am Davy M A 03879 Alkaline [facility] 93 U/L 40-129 [facility] Phosphatase 2021 235 [facility] 9:50pm [place]y M A 56980 Alkaline [facility] 84 U/L 40-129 [facility] Phosphatase [address] [facility] [address] 9:49am [place] M A 51832 Alkaline Brittany 73 U/L 40-129 [facility] Phosphatase 2021 235 [facility] 6:27am [place] M A 10441 Lipase [facility] 36 U/L 13-60 [facility] 2021 235 [facility] 9:50pm Davy M A 84101 Lipase Brittany 30 U/L 13-60 [facility] 2021 235 [facility] 8:48pm Davy M A 85227 Prostate [facility] 0.63 ng/ml <3.09 . [facility]'s Clinical Labs Specific [address] Antigen 12:10am [facility] [address] Thyroid [facility] 4.83 uIU/mL 0.34-5.60 [facility] Stimulating 2021 235 [facility] Hormone (TSH) 8:20am [facility] [address] Thyroid Brittany 3.86 uIU/mL 0.34-5.60 [facility] Stimulating [address] Hormone (TSH) 9:28pm Heriberto covington [place] Bedside Glucose November 165 mg/dl 70-100 NOTE: Any discrepancy between finger stick glucose result [facility] 2021 and patient's clin ical presentation should be [address] 11:31am confirmed by the la boratory. Romeo VILLALOBOS Bedside Glucose December 181 mg/dl 70-100 NOTE: Any discrepancy between finger stick glucose result [facility] 2021 and patient's clini joanne presentation should be [address] 11:40am confirmed by the [place] boratory. Romeo VILLALOBOS Bedside Glucose December 121 mg/dl 70-100 NOTE: Any discrepancy between finger stick glucose result [facility] 2021 and patient's clini joanne presentation should be [address] 10:57am confirmed by the [place] spragueatory. Romeo VILLALOBOS Bedside Glucose December 256 mg/dl 70-100 NOTE: Any discrepancy between finger stick glucose result [facility] 2021 and patient's clin ical presentation should be [address] 11:31am confirmed by the [place] boratory. Romeo VILLALOBOS Microbiology Results Procedure Source Result Collection Result Result Performin g Date/Time Date/Time Comment Site SARS-CoV-2, Nares, Both November 23, Goo [facility] Influenza & Left & 2021 1:56pm [address] RSV (PCR) Right Romeo Monzon SARS-CoV-2, Nares, Both December [facility] Influenza & Left & [address] RSV (PCR) Right 2:18am Romeo Mendosa [address] Diagnostic Imaging Reports Report Dictated Date/Time Dictated By Status Radiology Report November 20, 2021 9:08am Deniz Silva MD comp leted [facility] [address] [place] [address] Patient Name: Joaquín Barrientos [facility] rd#: [id number] Address: [address] [place] [address] 85 City/State/Zip: [place] [address]: Ethan Washington MD Insurance: [facility] /Age/Sex: 1960/61/M Self Pay Admit/Reg Date: 11/20/[address]: Haris Bradshaw DO Location: ED.INGS/GSXFR-7 PCP: PcpMd MELANIE Johnson Date of Service: 11/20/21 Order (s): XR chest 2V CPT Code: 49552 Report Number: [id number] Reason for Exam: Chest Pain EXAM: [...] Silva MD 11/20/21 0913 TD/TT: 11/20/21 0908Tech: [facility] cc: [id number]; HRSSPETE; JAZMINNO* Md Jesus MD; Cathleen Washington MD; Vince Bradshaw DO Report Dictated Date/Time Dictated By Status Electrocardiogram November 20, 2021 Warren Rivas MD completed [address] [id number] Patient Name: Joaquín Barrientos [facility] rd#: [id number] Address: [address] [place] [address] 85 [facility]/State/Zip: [place] [address]: Ethan Washington MD Insurance: [facility] /Age/Sex: 1960/61/M Self Pay Admit/Reg Date: 11/20/[address]: Haris Bradshaw DO Location: ED.INGS/GSXFR-7 PCP: Md MELANIE Lee Date of Service: 11/20/21 Order (s): EKG ED Electrocardiogram CPT Code: 82741 Report Number: [id number] Reason for Exam: Chest Pain SINUS RHYTHM RIGHT BUNDLE BRANCH BLOCK LEFT POSTERIOR FASCICULAR BLOCK Dictated By: Warren Rivas MD 11/20/21 Signed By: Warren Rivas MD 11/20/21 1442 TD/TT: 11/20/21 1441Tech: cc: [email or web address]; PCPNO* Pcp-MD Renny; Titus Bradshaw DO Report Dictated Date/Time Dictated By Status Radiology Report November 20, 2021 1:35pm Titus Martinez MD compl eted [place] [address] [place] [address] Patient Name: Joaquín Barrientos [facility] rd#: [id number] Address: [address] [place] [address] 85 City/State/Zip: [place] [address]: Ethan Washington MD Insurance: [facility] /Age/Sex: 1960/61/M Self Pay Admit/Reg Date: 11/20/[address]: Caio Washington MD; Michael Shannon, [place] Location: ED.[facility]/GSXFR-7 PCP: PcpMd MELANIE Johnson Date of Service: 11/20/21 Order (s): CT abd pelvis wo/w contrast; CT cervical spine wo contrast CPT Code: 61480; 54951 Report Number: [id number] Reason for Exam: hx cervical fracture in past. neck pain PROCEDURE: CERVICAL SPINE CT HISTORY: Neck pain. History of cervical fracture. COMPARISON: None TECHNIQUE: Noncontrast CT of the cervic al spine.Multiplanar imaging was reviewed. CT technique involves the adju stment of the mA and/or kV according to patient size. MIPS Measure #361 Patient Exposure to Ionizing Radiation was submitted to [employer] (ACR) Elizabeth onal Data [...] Martinez MD 11/20/21 1452 TD/TT: 11/20/21 1335Tech: [id number] cc: TIA; DEANNE; CRYSTAL Singh Pcp-MD Renny; Cathleen Washington MD; Ceferino Shannon, PAC Report Dictated Date/Time Dictated By Status Radiology Report November 21, 2021 4:29pm Fer Lopez MD com pleted [address] [place] [address] [place] [address] Patient Name: Joaquín Barrientos [facility] rd#: [id number] Address: [address] [place] [address] 85 City/State/Zip: [place] [address]: Ethan Washington MD Insurance: [facility] /Age/Sex: 1960/61/M Self Pay Admit/Reg Date: 11/21/[address]: Caio Washington MD Location: 3A.GS/[id number] PCP: Md MELANIE Lee Date of Service: 11/21/21 Order (s): US bladder CPT Code: 29001 Report Number: [id number] Reason for Exam: possible tumor per [...] November 22, 2021 5:27pm Eduar Monzon MD [address] [address] Patient Name: Joaquín Barrientos [facility] rd#: [id number] Address: [address] [place] [address] 85 City/State/Zip: [place] [address]: Ethan Washington MD Insurance: [facility] /Age/Sex: 1960/61/M Self Pay Admit/Reg Date: 11/21/[address]: Caio Washington MD [id number] PCP: PcpMd MELANIE Johnson Date of Service: 11/22/21 Order (s): NM bone scan whole body CPT Code: 30003 Report Number: [id number] Reason for Exam: c2 fracture THREE [...] lytic lesion. Dictated By: Eduar Monzon MD 11/22/21 0242 Signed By: Eduar Monzon MD 11/22/211736 TD/TT: 11/22/21 172Tech: SVCRPACS cc: HRSSPETE; CRYSTAL Lee MD; Cathleen Washington MD Report Dictated Date/Time Dictated By Status Electrocardiogram November 20, 2021 1:40am Jagjit Blum MD comp [facility] [address] [place] [address] Patient Name: Joaquín Barrientos [facility] rd#: [id number] Address: [address] [place] [address] 85 City/State/Zip: [place] [address]: Ethan Washington MD Insurance: [facility] /Age/Sex: 1960/61/M Self Pay Admit/Reg Date: 11/21/[address]: Olga/ R Olga Correa Location: [address] [place] [address] PCP: Md MELANIE Lee Date of Service: 11/20/21 Order (s): EKG ED Electrocardiogram CPT Code: 60875 Report Number: [id number] Reason for Exam: CP Sinus rhythm Right axis deviation Right bundle branch block Left posterior fascicular block Low QRS voltages in precordial leads Dictated By: Jagjit Blum MD 11/20/21 40 Signed By: Jagjit Blum MD 11/22/211817 TD/TT: 11/20/21 0140Tech: TAURUS cc: E/R; PCPJUAN E/R Olga Correa ; Md Jesus MD Report Dictated Date/Time Dictated By Status Electrocardiogram November 21, 2021 6:26pm Jagjit Blum MD comp [facility] [address] [place] [address] Patient Name: Joaquín Barrientos [place] [facility] rd#: [id number] Address: [address] [place] [address] 85 City/State/Zip: [place] [address]: Ethan Washington MD Insurance: [facility] /Age/Sex: 1960/61/M Self Pay Admit/Reg Date: 11/21/[address]: Caio Washington MD Location: 3A./UR089-F PCP: Md MELANIE Lee Date of Service: 11/21/21 Order (s): EKG Electrocardiogram CPT Code: 59449 Report Number: [id number] Reason for Exam: CP Sinus rhythm with 1st degree A-V block Rightward axis Right bundle branch block Left posterior fascicular block Low QRS voltages in precordial leads Dictated By: Jagjit Blum MD 11/21/21 Signed By: Jagjit Blum MD 11/22/211818 TD/TT: 11/21/211825Tech: TAURUS cc: TIA; CRYSTAL Lee MD; Cathleen Washington MD Report Dictated Date/Time Dictated By Status Radiology Report November 23, 2021 10:26am Saulo Mcnulty MD completed [facility] [address] [place] [address] Patient Name: Joaquín Barrientos [facility] rd#: [id number] Address: [address] [place] [address] City/State/Zip: [place] [address]: Ethan Washington MD Insurance: [facility] /Age/Sex: 1960/61/M Self Pay Admit/Reg Date: 11/21/[address]: Caio Washington MD Location: 3A./IV353-L PCP: Md MELANIE Lee Date of Service: 11/23/21 Order (s): CT head/brain wo contrast CPT Code: 94019 Report Number: [id number] Reason for Exam: followup parietal lesio [...] MD 11/24/21 0 558 TD/TT: 11/23/21 1026Tech: [id number] cc: HRSSPETE; PCPNO* Pcp-MD Renny; Cathleen Washington MD Report Dictated Date/Time Dictated By Status Radiology Report December 01, 2021 10:06am Fer Dodge MD compl eted [facility] [address] [place] [address] Patient Name: Joaquín Barrientos rd#: [id number] Address: [facility] 9 City/State/Zip: [place] [address]: Prakash Saravia MD Insurance: [facility] /Age/Sex: 1960/61/M Self Pay Admit/Reg Date: 12/01/[address]: HEAVENLY Montes De Oca Location: ED.GS/ PCP: Pcp-Non StaffMd Date of Service: 12/01/21 Order (s): XR chest 2V CPT Code: 21017 Report Number: [id number] Reason for Exam: chest pain Patient [...] 2021 8:57am Prakash Saravia MD comp leted [address] [address] [place] [address] Patient Name: Joaquín Barrientos [facility] rd#: [id number] Address: [facility] 9 City/State/Zip: [place] [address]: Sean Salmeron MD Insurance: [facility] /Age/Sex: 1960/61/M Self Pay Admit/Reg Date: 12/01/[address]: HEAVENLY Montes De Oca Location: [address] [place] [address]-W PCP: PcpCarla lopes Md Date of Service: 12/01/21 Order (s): EKG ED Electrocardiogram CPT Code: 51547 Report Number: [id number] Reason for Exam: Chest pain CONSIDER [...] 2021 10:05am Prakash Saravia MD com pleted [facility] [address] [place] [address] Patient Name: Joaquín Barrientos [facility] rd#: [id number] Address: [address] City/State/Zip: [place] [address]: Sean Salmeron MD Insurance: [facility] /Age/Sex: 1960/61/M Self Pay Admit/Reg Date: 12/01/[address]: HEAVENLY Montes De Oca Location: 3A./NT284-T PCP: Pcp-Beba lopes Md Date of Service: 12/01/21 Order (s): EKG ED Electrocardiogram CPT Code: 68666 Report Number: [id number] Reason for Exam: CHEST PAIN Sinus rhythm Lead(s) unsuitable for analysis: V3 Right axis deviation Right bundle branch block Dictated By: Prakash Saravia MD 12/01/21 10 05 Signed By: Prakash Saravia MD 12/02/21816 TD/TT: 12/01/21 1005Tech: AMADO cc: LOGEM; PCPNS* Shira Al PAC; TERESSA RUIZ Report Dictated Date/Time Dictated By Status Radiology Report December 07, 2021 10:53pm Lary Rhodes MD completed [facility] [address] [place] [address] Patient Name: Joaquín Barrientos [facility] rd#: [id number] Address: [address] City/State/Zip: [place] [address]: Harlan Davis DO Insurance: [facility] /Age/Sex: 1960/61/M Self Pay Admit/Reg Date: 12/07/[address]: Rachid Chowdary PAC Location: ED./ PCP: Pcp-Beba Marin Md Date of Service: 12/07/21 Order (s): CT head/brain wo contrast CPT Code: 59579 Report Number: [id number] Reason for Exam: syncope with head [...] Lary Rhodes MD 12/07/21 9 TD/TT: 12/07/212252Tech: [id number] cc: JOSE; VIVEK; ANAM* TERESSA RUIZ; DAKOTA Victor; Phil Davis DO Report Dictated Date/Time Dictated By Status Radiology Report December 07, 2021 10:56pm Lary Rhodes MD completed [address] [address] Patient Name: Joaquín Barrientos [facility] rd#: [id number] Address: [employer] 0 City/State/Zip: [place] [address]: Harlan Davis DO Insurance: [facility] /Age/Sex: 1960/61/M Self Pay Admit/Reg Date: 12/07/[address]: DAKOTA Hutchinson Location: ED.GS/ PCP: PcpCarla Marin Md Date of Service: 12/07/21 Order (s): CT cervical spine wo contrast CPT Code: 92167 Report Number: [id number] Reason for Exam: pain s/p fall [...] Rhodes MD 12/07/21 230 2 TD/TT: 12/07/212255Tech: [id number] cc: JOSE; PCPBENITA; ANAM* TERESSA RUIZ; DAKOTA Victor; Phil Davis DO Report Dictated Date/Time Dictated By Status Radiology Report December 08, 2021 7:58am [place] [address] Patient Name: Joaquín Barrientos [facility] rd#: [id number] Address: [employer] 0 City/State/Zip: [place] [address]: Jesenia Rivas MD Insurance: [facility] /Age/Sex: 1960/61/M Self Pay Admit/Reg Date: 12/07/[address]: DAKOTA Hutchinson Location: [address] [place], [place] [address]-D PCP: PcpCarla lopes Md Date of Service: 12/07/21 Order (s): CT abdomen pelvis w contrast; CT chest w contrast; CT thoracic spine wo contrast CPT Code: 19677; 49674; 58404 Report Num mike: [id number] Reason for Exam: L sided lower rib pain s/p fall ADDENDUM Right lower lobe segmental and subsegme ntal pulmonary emboli are noted. Preliminary wet reading was provided by TRS at the conclusion of the exam and there is no clinically significant disag reement. Addendum Dictated By: Eduar Monzon MD Addendum Signed By: Eduar Monzon MD 2 0837 DD/ /22/833 TD/TT: 12/08/2110/22/833 [...] using the independent workstation, performed by the histotechnologist supervisor was reviewed. Automated exposure control and dose [...] report for other detail s. Dr. Eduar monzon was able to get in touch with Dr. Rivas at 8:23 AM, 12/08/2021 and discussed the findings in the impres manuel of the report. Dictated By: Eduar Monzon MD 12/08/21 0758 Signed By: Eduar Monzon MD 12/08/21 0827 TD/TT: 12/08/21 0758Tech: [id number] cc: VIVEK; DARRELL; ANAM* TERESSA RUIZ; Jesenia Rivas MD; Erasto Chowdary, [facility] Report Dictated Date/Time Dictated By Status Electrocardiogram December 08, 2021 12:11am Warren mendoza MD completed [facility] [address] [place] [address] [facility] [id number] Address: [address] [facility]/State/Zip: [place] [address]: Jesenia Rivas MD Insurance: [facility] /Age/Sex: 1960/61/M Self Pay Admit/Reg Date: 12/07/[address]: Juan A garza MD Location: 3B./DV216-D PCP: Lissette lopes Md Date of Service: 12/08/21 Order (s): EKG Electrocardiogram CPT Code: 93035 Report Number: [id number] Reason for Exam: SYNCOPE SINUS RHYTHM VENTRICULAR PREMATURE COMPLEX FIRST DEGREE AV BLOCK RBBB AND LPFB Summary: Abnormal ECG Dictated By: Warren Espinal MD 10 Signed By: Warren Espinal MD 12/08/21913 TD/TT: 12/08/2110Tech: ALYSHA cc: MONICA; PCPNS* Javy Molina MD; TERESSA RUIZ Report Dictated Date/Time Dictated By Status Radiology Report December 08, 2021 1:51pm Gaurang Ramos MD c ompleted [facility] [address] [place] [address] Patient Name: Joaquín Barrientos [facility] rd#: [id number] Address: [address] City/State/Zip: [place] [address]: Jesenia Rivas MD Insurance: [facility] /Age/Sex: 1960/61/M Self Pay Admit/Reg Date: 12/08/[address]: Griselda daugherty MD [facility] PCP: PcpCarla lopes Md Date of Service: 12/08/21 Order (s): US venous duplex LE BI CPT Code: 36861 Report Number: [id number] Reason for Exam: Acute PE, question DVT BILATERAL DUPLEX LEG VENOUS ULTRASOUND ( 80399) HISTORY: Acute PE. TECHNIQUE: Examination of the [...] 2021 9:28am D[place] [address] Patient Name: Joaquín Barrientos [facility] rd#: [id number] Address: [facility] 0 City/State/Zip: [place] [address]: Jesenia Rivas MD Insurance: [facility] /Age/Sex: 1960/61/M Self Pay Admit/Reg Date: 12/08/[address]: Griselda daugherty MD Location: 3B./ZQ359-P PCP: Pcp-Non Kirill lopes Md Date of Service: 12/08/21 Order (s): Echo TTE comp w/dop w contras t CPT Code: C8929 Report Number: [id number] Reason for Exam: Acute pulmonary embolis m Transthoracic Echocardiography Report (T TE) Demographics Patient Name Floyd Yanes Gender Male MR Number [id number] Date of [birth year] Age 61 year (s) Room Number GS351 Height 69 inches Date of study 12/08/2021 Weight 247.01 pounds Referring MD Jesenia Rivas BSA 2.2 6 m^2 MD Erasto Blum MD Interpreting MD Daron Leong MD BMI 3 6.48 kg/m^2 Fellow Cement Mixer Driver Krys Chen, [facility] Conclusions Summary Definity .5mL was [...] By: Daron Leong MD 12/08/21 TD/TT: 12/08/21927Tech: SVCCPACS cc: NATALY; VIVEK; DARRELL* Daron Leong MD; TERESSA RUIZ; Mauro Rivas MD Report Dictated Date/Time Dictated By Status Radiology Report December 11, 2021 10:21am Matt Granger MD co mpleted [facility] [address] [place] [address] Patient Name: Joaquín Barrientos [facility] rd#: [id number] Address: [employer] City/State/Zip: [place] [address]: Dillon Mcdonald MD Insurance: [facility] /Age/Sex: 1960/61/M Self Pay Admit/Reg Date: 12/11/[address]: Haris Bradshaw DO Location: ED.INGS/GSXFR-4 PCP: PcpCarla arrington Md Date of Service: 12/10/21 Order (s): XR chest 1V portable CPT Code: 30805 Report Number: [id number] Reason for Exam: Chest Pain XR [...] Granger MD 12/11/21 1025 TD/TT: 12/11/21 1021Tech: [facility] cc: [id number]; [email or web address]; PCPNS* TERESSA RUIZ; Orlando Dodge; Titus Bradshaw DO Report Dictated Date/Time Dictated By Status Electrocardiogram December 10, 2021 8:49pm Warren [place] [address] Patient Name: Joaquín Barrientos [facility] rd#: [id number] Address: [facility] 8 City/State/Zip: [place] [address]: Dillon Mcdonald MD Insurance: [facility] /Age/Sex: 1960/61/M Self Pay Admit/Reg Date: 12/11/[address]: Haris Bradshaw DO Location: ED.MELONIE/GSXFR-4 PCP: PcpCarla arrington Md Date of Service: 12/10/21 Order (s): EKG ED Electrocardiogram CPT Code: 71167 Report Number: [id number] Reason for Exam: Chest Pain SINUS RHYTHM RIGHT BUNDLE BRANCH BLOCK [120+ ms QRS DURATION, UPRIGHT V1, 40+ ms S IN I/aVL/V4/V5/V6] LEFT POSTERIOR FASCICULAR BLOCK [QRS AX IS > 109, INFERIOR Q] ABNORMAL ECG No STEMI. Dictated By: Warren Rivas MD 12/10/21 49 Signed By: Warren Rivas MD 12/11/211310 TD/TT: 12/10/212048Tech: SAMANTHA cc: [email or web address]; PCPNS* TERESSA RUIZ; Titus Bradshaw DO Report Dictated Date/Time Dictated By Status Cardiac Catheterization December 02, 2021 12:06pm Erasto Blum MD completed [address] [address] [place] [address] Patient Name: Joaquín Barrientos [facility] rd#: [id number] Address: [address] City/State/Zip: [place] [address]: Sean Salmeron MD Insurance: [facility] /Age/Sex: 1960/61/M Self Pay Admit/Reg Date: 12/03/[address]: Orlando Virgen [facility] PCP: PcpCarla lopes Md Date of Service: 12/02/21 Order (s): Cardiac Cath Order CPT Code: Report Number: [id number] Reason for Exam: CP Cardiac Catheterization and [...] Blum MD 12/13/21 1510 TD/TT: 12/02/21 1206Tech: SVCCPACS cc: VENKATA; PCPNS* Erasto Blum MD; TERESSA RUIZ Report Dictated Date/Time Dictated By Status Electrocardiogram December 12, 2021 12:52pm Jagjit Blum MD completed [address] [address] Patient Name: Joaquín Barrientos [facility] rd#: [id number] Address: [address] City/State/Zip: [place] [address]: Jesenia Rivas MD Insurance: [facility] /Age/Sex: 1960/61/M Self Pay Admit/Reg Date: 12/11/[address]: Kylah gan MD [facility] P[facility]: Pcp-Beba lopes Md Date of Service: 12/12/21 Order (s): EKG Electrocardiogram CPT Code: 55458 Report Number: [id number] Reason for Exam: ARRTHYMIA Sinus rhythm [...] November 23 9:00am Respiratory rate 20 /min 12-November 23 7:45am Oxygen saturation by Pulse 98 % 95-[facility] 7:[facility] oximetry BP Systolic 127 mm[Hg] 90-140 November 23 7:45am BP Diastolic 86 mm[Hg] 60-90 November 23 7:45am BMI (Body Mass Index) 26.9 kg/m2 November 11:25pm Height 175.26 cm November 28 10:45pm Weight 108.86 kg November 28 10:45pm Body Temperature 97.7 [degF] 97.6-99.6 November 28 11:53pm Heart Rate 76 /min -November 28 11:53pm Respiratory rate 18 /min 03-26November 28 11:53pm Oxygen saturation by Pulse 95 % 95-100 [facility] 2021 11:53pm oximetry BP Systolic 120 [...] Oxygen saturation by Pulse 96 % 95-100 [facility] 2021 7:25am oximetry BP Systolic [...] 8:20am Heart Rate 89 /min 60-90 December 09 8:20am Respiratory rate 18 /min -December 09, 2021 8:20am Oxygen saturation by Pulse 96 % 95-100 [facility] 2021 8:20am oximetry BP Systolic 136 mm[Hg] 90-140 December 09 8:20am BP Diastolic 78 mm[Hg] 60-90 December 09 8:20am BMI (Body Mass Index) 36.5 kg/m2 December 08, 2021 2:22am Height 175.26 cm December 11, 2021 9:12pm Weight 110.84 kg December 13, 2021 7:11am Body Temperature 98.2 [degF] 97.6-99.6 December 13, 2021 7:52am Heart Rate 70 /min -December 13, 2021 10:04am Respiratory rate 20 /min -December 13, 2021 7:52am Oxygen saturation by Pulse 96 % 95-100 [facility] 2021 oximetry 10:13am BP Systolic 115 mm[Hg] 90-140 December 13, 2021 7:52am BP Diastolic 66 mm[Hg] 60-90 December 13, 2021 7:52am BMI (Body Mass Index) 36.5 kg/m2 December 11, 2021 9:12pm Advance Directives Advance Directive Response Recorded Date/Time [...] Care Proxy No December 12, 2021 1:59pm Pt has Medical Orders for Life Sustaining Tx No December 12, 2021 1:59pm Form (MOLST)? Insurance Providers Guarantor Joaquín Barrientos Address [address] [place] [address] Contact Info. Home Phone: Payer Policy Id Coverage Id Subscriber's Subscriber Effective Expi ration Name Id Date Date [facility] [id number] Joaquín Barrientos [id number] [facility] Medicare A&B [id number] Joaquín Barrientos [id number] Self Pay Self N/A Encounters Encounter Location(s) Arrival/Admit Date Discharge/Depart Date Provider(s) Discharged [facility] November 21, 2021 November 23, 2021 Zamora , Inpatient Medical 9:59am 4:58pm Center-3A Departed [facility] November 28, 2021 November 29, 2021 nul l Emergency Medical 9:07pm 12:08am Center-Emergency Dept Discharged [facility] December 03December 03, 2021 Luther Salmeron , Inpatient Medical 2021 9:24am 1:31pm Center-3A Discharged [facility] December 08, December 09, 2021 Danay Rice Inpatient Medical 2021 12:49pm 2:05pm MD Center-3B Discharged [facility] December 11, December 13, 2021 Griselda gonzalez Inpatient Medical 2021 1:50am 2:25pm MD Rob Center-3B Recent Diagnosis Onset Date [...] 10:13am Assessments Diagnosis Onset Date Resolution Status Abdominal [...] Pcp-Md MD TERESSA Lawson Work Phone: [address] [facility] [place] 6 TERESSA RUIZ Work Phone: [address] [facility] [place] 6 Wally Stone Work Phone: [facility] Urology MD Diana [address], [address] [facility] [address] TERESSA RUIZ Work Phone: [address] [facility] [place] 6 TERESSA RUIZ Work Phone: [address] [facility] [place] 6 Future Procedures Procedure Name Scheduled Date [...] Spiritual Care Consult December 01, 2021 11:47pm Ambulance Operations Supervisor Consult December 01, 2021 11:47pm Cardiology Consult [...] Spiritual Care Consult December 12, 2021 6:52am Ambulance Operations Supervisor Consult December 12, 2021 6:52am Cardiology Consult [...] Dc Pulmonary Embolism Understanding the Pain Response Goals Acute Goals FOLLOWUP WITH UROLOGY FOR [...] 6 mm in thickness. BLADDER US: pending MrJosselin Barrientos YOu will need to follow up with your [facility] doctor within 1-2 weeks. Please see the urologist as an outpatien t regarding your prostate. Please refrain from drinking any alcohol . Thank you Patient will be discharged back to [facility]. Patient is currently on anticoagulation with Xarelto for recently diagnosed pulmonary embolism. To get follow-up with the PCP and also w ith the traveling buyer as an outpatient. Patient is explained in detail regarding the risks and benefits of anticoagulation therapy. Absence of falls Including: - Early & [...]
--- OUTSIDE RECORDS SUMMARY | 2022-04-07 13:29 | XMS_ITS | Continuity of Care Document ---
:1960 Author Organization [facility] Address [address] [place] [address] Phone Care Team Providers Name Role Phone [...] November 21, 2021 1: 46pm Living Situation Assisted November 21, 2021 12 :13pm Additional Data [...] 500 MG PO TWICE A DAY April h ued WITH MEALS 2018 1:00am 11:30a m [...] Discontin 1 SPRAY NASAL TWICE A DAY Kathryn Ma rch Propionate ued 2018 1:00am 11:30a [...] wo contrast November 23, 2021 9:22am active SARS-CoV-2, Influenza & RSV (PCR) comple devendra Relevant Diagnostic Tests and/or Laboratory Data Laboratory Results Test Date/Time Result Interpretation Reference Result Perfo rming Range Comment Site Add-On Test November Added [facility] Request 2021 test [address] [facility] 3:59pm Romeo Mendosa [address] White Blood November 5.6 X10 4.5-11.0 [facility] Count 2021 3/uL [address] 8:20am [place] [address] Red Blood Count November 3.95 X10 4.00-5.50 [facility] 2021 6/uL [address] 8:20am [place] [address] Hemoglobin November 12.0 g/dl 12.0-17.0 [facility] 2021 [address] 8:20am [place] [address] Hematocrit November 36.9 % 35.0-50.0 [facility] 2021 [address] 8:20am [place] [address] Mean November 93.4 fl 80.0-100.0 [facility] Corpuscular [address] Volume 8:20am [place] [address] Mean November 30.4 pg 27.0-34.0 [facility] Corpuscular [address] Hemoglobin 8:20[place] [address] Mean November 32.5 g/dl 31.0-36.0 [facility] Corpuscular [address] Hemoglobin 8:20[place] [address] Concent Red Cell November 12.6 % 11.5-15.0 [facility] Distribution 2021 [address] Width 8:20am [place] [address] Platelet Count November 90 X10 150-400 [facility] 2021 3/uL [address] [facility] 8:20am [place] [address] Immature November 1.1 % [facility] Granulocyte % 2021 [address] [facility][1] (Auto) 8:20am [place] [address] Neutrophils (%) November 62.7 % [facility] (Auto) 2021 [address] [facility] 8:20am [place] [address]76 Lymphocytes (%) November 18.8 % [facility] (Auto) 2021 [address] 8:20am [place] [address] Monocytes (%) [place] 9.8 % [facility] (Auto) 2021 [address] [facility] 8:20am [place] [address] Eosinophils (%) [place] 6.2 % [facility] (Auto) 2021 [address] [facility] 8:20am [place] [address] Basophils (%) November 1.4 % [facility] (Auto) 2021 [address] [facility] 8:20am [place] [address] Immature [place] 0.06 X10 0.00-0.09 [facility] Granulocyte # 2021 3/uL [address] [facility][1] (Auto) 8:20am [place] [address] Neutrophils # [place] 3.5 X10 1.5-7.8 [facility] (Auto) 2021 3/uL [address] [facility] 8:20am [place] [address] Lymphocytes # [place] 1.1 X10 1.0-4.8 [facility] (Auto) 2021 3/uL [address] [facility] 8:20am [place] [address] Monocytes # [place] 0.6 X10 0.0-0.8 [facility] (Auto) 2021 3/uL [address] [facility] 8:20am [place] [address] Eosinophils # [place] 0.4 X10 0.0-0.5 [facility] (Auto) 2021 3/uL [address] [facility] 8:20am [place] [address]394 Basophils # [place] 0.1 X10 0.0-0.2 [facility] (Auto) 2021 3/uL [address] [facility] 8:20am [place] [address] Hemoglobin A1c November 6.6 4.3-5.9 [facility] 2021 [address] [facility] 6:10am [place] [address]94 Estimated [place] 143 mg/dl [facility] Average Glucose 2021 [address] [facility] (eAG) 6:10am [place] [address] Nucleated Red [place] 0.0 /100 0.0-0.0 [facility] Blood Cells % 2021 WBC [address] [facility][1] 8:20am [place] [address]852 Prothrombin November 11.1 9.3-12.1 [facility] Time 2021 Seconds [address] [facility] 5:31am [place] [address] Prothromb Time November 1.0 0.9-1.2 Reference Interval is for non-anticoagulated patients. [facility] 2021 Suggested I NR Therapeutic Range for Vitamin K antogonist therapy: [address] [place] [address] Ratio 5:31am LEVELS OF [place] A [address]80 THERAPY INDICATIONS TARGET INR RANGE Standard Dose Venous Thrombosis, 2.0 - 3.0 Atrial Fibrillation , Pulmonary Embolism. High Dose Valvular H eart Disease, 2.5 - 3.5 Mechanical Heart, Intracardiac Thromb osis. Sodium Level November 141 137-146 [facility] 2021 mmol/L [address] [facility] 6:10am [place] [address] Potassium Level November 4.2 3.5-5.3 [facility] 2021 mmol/L [address] [facility] 6:10am [place] [address]87 Chloride Level November 102 98-107 [facility] 2021 mmol/L [address] [place] [address] 6:10am [place] A [address]281 Carbon Dioxide November 26 mmol/L [facility] Level [address] [place] [address] 6:10am [place] A [address]779 Anion Gap November 13 mmol/L -15 [facility] [address] [place] [address] 6:10am [place] A [address]50 Blood Urea November 16 mg/dl - [facility] Nitrogen 2021 [address] [facility] 6:10am [place] [address] Creatinine November 1.1 mg/dL 0.6-1.4 [facility] [address] [place] [address] 6:10am [place] [address]137 Estimated November 74.7 This value [facility] Creatinine 2021 ml/min is calculated [address] [place] [address] Clearance 6:10am [place] [address] Gault Equation using ideal body weight. This result is dependent on an accurate patient height and weight which is obtained from patients medical record. Mukeshoft, D.W. and M.H. Gault. Prediction of creatinine clearance from serum creatinine. Nephron. 1976. 16(1):31-41. Estimated GFR November >60 [facility] ( 2021 [facility]) 6:10am [place] [address]105 Estimated GFR November 73 >60 [facility] (Non- 2021 [address] [facility] 6:10am [place] A [address] BUN/Creatinine November 14.5 10.0-20.0 [facility] Ratio 2021 [facility] 6:10am [place] [address]478 Glucose Level November 106 mg/dL 70-100 [facility] 2021 [facility] 6:10am [place] 14963 Calcium Level November 8.6 mg/dl 8.6-10.3 [facility] 2021 [facility] 6:10am [place] [address]145 Troponin T High November 13 ng/L <13 Normal range: Females <9 ng/L [facility] Sensitivity 2021 Males <14 ng/L 2 35 [facility] 12:10am [place] [address] Values greater than or equal to 52 [...] the inpatient setting). Prostate November 0.63 <3.09 [facility] Clinical Labs Specific 2021 ng/ml [address] Antigen 12:10am [facility] [address] Thyroid November 4.83 0.34-5.60 [facility] Stimulating 2021 uIU/mL [address] [facility] Hormone (TSH) 8:20am [facility] [address] Bedside Glucose November 165 mg/dl 70-100 NOTE: Any discrepancy between finger stick glucose result [facility] 2021 and patient's clin ical presentation should be 235 [facility] 11:31am confirmed by the la boratory. [facility] [address] Microbiology Results Procedure Source Result Collection Result Result Performin g Date/Time Date/Time Comment Site SARS-CoV-2, Nares, Both November 23, Goo d [facility] Influenza & Left & 2021 1:56pm [facility] Right [facility] [address] Diagnostic Imaging Reports Report Dictated Date/Time Dictated By Status Radiology Report November 20, 2021 9:08am Deniz Silva MD comp [facility] [address] [place] [address] Patient Name: Joaquín Barrientos [facility] rd#: [id number] Address: [address] [place] [address] City/State/Zip: [place] [address]: Laura Washington MD Insurance: [facility] /Age/Sex: 1960/61/M Self Pay Admit/Reg Date: 11/20/[address]: Haris Bradshaw DO Location: ED.INGS/GSXFR-7 PCP: PcpMd MELANIE Johnson Date of Service: 11/20/21 Order (s): XR chest 2V CPT Code: 70690 Report Number: [id number] Reason for Exam: Chest Pain EXAM: [...] Silva MD 11/20/21 0913 TD/TT: 11/20/21 0908Tech: [facility] cc: TASHA; SHAYESPNABIL; CRYSTAL Lee MD; Cathleen Washington MD; Vince Bradshaw DO Report Dictated Date/Time Dictated By Status Electrocardiogram November 20, 2021 Warren Rivas MD completed [facility] [address] [place] [id number] Patient Name: Joaquín Barrientos [facility] rd#: [id number] Address: [address] [place] [address] City/State/Zip: [place] [address]: Laura Washington MD Insurance: [facility] /Age/Sex: 1960/61/M Self Pay Admit/Reg Date: 11/20/[address]: Haris Bradshaw DO [facility] PCP: Md MELANIE Lee Date of Service: 11/20/21 Order (s): EKG ED Electrocardiogram CPT Code: 21993 Report Number: [id number] Reason for Exam: Chest Pain SINUS RHYTHM RIGHT BUNDLE BRANCH BLOCK LEFT POSTERIOR FASCICULAR BLOCK Dictated By: Warren Rivas MD 11/20/21 Signed By: Warren Rivas MD 11/20/21 1442 TD/TT: 11/20/21 1441Tech: cc: TASHA; PCPJUAN Lee MD; Titus Bradshaw DO Report Dictated Date/Time Dictated By Status Radiology Report November 20, 2021 1:35pm Titus Martinez MD compl eted [facility] [address] [place] [address] Patient Name: Joaquín Barrientos rd#: [id number] Address: [address] [place] [address] City/State/Zip: [place] [address]: Laura Washington MD Insurance: [facility] /Age/Sex: 1960/61/M Self Pay Admit/Reg Date: 11/20/[address]: Caio Washington MD; Michael Shannon [facility] Location: ED.INGS/GSXFR-7 PCP: PcpMd MELANIE Johnson Date of Service: 11/20/21 Order (s): CT abd pelvis wo/w contrast; CT cervical spine wo contrast CPT Code: 79688; 47984 Report Number: [id number] Reason for Exam: hx cervical fracture in past. neck pain PROCEDURE: CERVICAL SPINE CT HISTORY: Neck pain. History of cervical fracture. COMPARISON: None TECHNIQUE: Noncontrast CT of the cervic al spine.Multiplanar imaging was reviewed. CT technique involves the adju stment of the mA and/or kV according to patient size. MIPS Measure #361 Patient Exposure to Ionizing Radiation was submitted to [employer] (ACR) Elizabeth onal Data [...] to [employer] ([employer]) [facility] Radiology Data Registry (NRDR) and MIPS [...] Martinez MD 11/20/21 1452 TD/TT: 11/20/21 1335Tech: [id number] cc: TIA; DEANNE; SOREN* Md Jesus MD; Cathleen Washington MD; Ceferino Shannon, PAC Report Dictated Date/Time Dictated By Status Radiology Report November 21, 2021 4:29pm Fer Lopez MD com [address] [id number] Patient Name: Joaquín Barrientos [facility] rd#: [id number] Address: [address] [place] [address] City/State/Zip: [place] [address]: Laura Washington MD Insurance: [facility] /Age/Sex: 1960/61/M Self Pay Admit/Reg Date: 11/21/[address]: Caio Washington MD Location: ./[id number] PCP: Md MELANIE Lee Date of Service: 11/21/21 Order (s): US bladder CPT Code: 20151 Report Number: [id number] Reason for Exam: possible tumor per [...] November 22, 2021 5:27pm Eduar Monzon MD [place] [id number] Patient Name: Joaquín Barrientos rd#: [id number] Address: [address] [place] [address] City/State/Zip: [place] [address]: Laura Washington MD Insurance: [facility] /Age/Sex: 1960/61/M Self Pay Admit/Reg Date: 11/21/[address]: Caio Washington MD [id number] PCP: Md MELANIE Lee Date of Service: 11/22/21 Order (s): NM bone scan whole body CPT Code: 21994 Report Number: [id number] Reason for Exam: c2 fracture THREE [...] By: Eduar Monzon MD 11/22/211736 TD/TT: 11/22/211726Tech: [facility] cc: HRSSPNABIL; JAZMINNO* Pcp-MD Renny; Cathleen Washington MD Report Dictated Date/Time Dictated By Status Electrocardiogram November 20, 2021 1:40am Jagjit Blum MD [facility] [address] [place] [address] Patient Name: Joaquín Barrientos [facility] rd#: [id number] Address: [address] [place] [address] City/State/Zip: [place] [address]: Laura Washington MD Insurance: [facility] /Age/Sex: 1960/61[birth year]M Self Pay Admit/Reg Date: 11/21/[address]: Olga Azul Location: 3A./[id number]-D PCP: PcpMd MELANIE Johnson Date of Service: 11/20/21 Order (s): EKG ED Electrocardiogram CPT Code: 24470 Report Number: [id number] Reason for Exam: CP Sinus rhythm [...] November 21, 2021 6:26pm Jagjit Blum MD [address] [address] Patient Name: Joaquín Barrientos [facility] rd#: [id number] Address: [address] [place] [address] City/State/Zip: [place] [address]: Laura Washington MD Insurance: [facility] /Age/Sex: 1960/61[birth year]M Self Pay Admit/Reg Date: 11/21/[address]: Caio Washington MD [id number] PCP: PcpMd MELANIE Johnson Date of Service: 11/21/21 Order (s): EKG Electrocardiogram CPT Code: 71657 Report Number: [id number] Reason for Exam: CP Sinus rhythm with 1st degree A-V block Rightward axis Right bundle branch block Left posterior fascicular block Low QRS voltages in precordial leads Dictated By: Jagjit Blum MD 11/21/21 18 Signed By: Jagjit Blum MD 11/22/211818 TD/TT: 11/21/211825Tech: [facility] cc: HRSSPETE; PCPNO* Pcp-MD Renny; Cathleen Washington [...] 46pm Insurance Providers Guarantor Joaquín Barrientos Address [address] [place] [address] Contact Info. Home Phone: Payer Policy Id Coverage Id Subscriber's Subscriber Effective Expi ration Name Id Date Date [facility] [id number] Joaquín Barrientos [id number] [place] Self Pay Self N/A Encounters Encounter Location(s) Arrival/Admit Date Discharge/Depart Date Provider(s) Discharged Jasvir Nondenominational November 21, 2021 November 23, 2021 [facility] [facility] Inpatient Medical 9:59am 4:58pm Center[facility] Recent Diagnosis Onset Date Abdominal pain [...] Contact Provider Address Referral Date Information Pcp-Md MELANIE Lawson Future Procedures Procedure Name Scheduled Date Hospital [...] Patient instructions are unavailable Goals Acute Goals FOLLOWUP WITH UROLOGY FOR [...]
--- OUTSIDE RECORDS SUMMARY | 2022-04-07 13:29 | XMS_ITS | Continuity of Care Document ---
:1960 Author Organization [facility] Address [address] [place] [address] Phone Support Name Relationship Address Phone Megha Aguayo Sister [address] [facility] [phone] [place] [address] Pcp-Renny, Primary Care Provider Unavailable Alissa Mckenna Emergency Provider [address] [facility] [place] [address] Gurjit Solomon Admit Provider [address] [facility] [place] [address] Allergies, Adverse Reactions, Alerts Allergen Type Severity [...] [facility], [address] [facility] Request 2019 7:50am test Lena M A 23092 White Blood Count June 29, 8.7 X10 4.5-11.0 [facility], [address] [place] [address] 2019 2:06am 3/uL Lena M A 95071 Red Blood Count June 29, 4.78 X10 4.00-5.50 [facility], [address] [place] [address] 2019 2:06am 6/uL [place] Orlando A [address]73 Hemoglobin June 29, 12.5 12.0-17.0 [facility], [address] [place] [address] 2019 2:06am g/dl [place] M A [address]23 Hematocrit June 29, 40.1 % 35.0-50.0 [facility], [address] [place] [address] 2019 2:06am [facility] A 31493 Mean Corpuscular June 29, 83.9 fl 80.0-100.0 [facility], [address] [place] [address] Volume 2019 2:06am [facility] A 40358 Mean Corpuscular June 29, 26.2 pg 27.0-34.0 [facility], [address] [place] [address] Hemoglobin 2020 2:06am [facility] 64062 Mean Corpuscular June 29, 31.2 31.0-36.0 [facility], [address] [place] [address] Hemoglobin Concent 2019 2:06am g/dl [facility] 25504 Red Cell June 29, 13.8 % 11.5-15.0 [facility] Katja [facility], [address] [place] [address] Distribution Width 2019 2:06am [facility] 49417 Platelet Count June 29, 127 X10 150-400 [facility], [address] [place] [address] 2019 2:06am 3/uL [facility] A 67631 Immature June 29, 1.3 % [facility], [address] [place] [address] Granulocyte % 2019 2:06[place] [address] (Auto) Neutrophils (%) June 29, 61.7 % [facility], [address] [place] [address] (Auto) 2019 2:06am [facility] A 41471 Lymphocytes (%) June 29, 20.1 % [facility], [address] [place] [address] (Auto) 2019 2:06am [facility] A 01094 Monocytes (%) June 29, 9.0 % [facility], [address] [place] [address] (Auto) 2019 2:06am [facility] A 06032 Eosinophils (%) June 29, 6.4 % [facility], [address] [place] [address] (Auto) 2019 2:06am Lena M A 59458 Basophils (%) June 29, 1.5 % [facility], [address] [place] [address] (Auto) 2019 2:06am Lena M A 55754 Immature June 29, 0.11 X10 0.00-0.09 [facility], [address] [place] [address] Granulocyte # 2019 2:06am 3/uL [place] (Auto) Neutrophils # June 29, 5.4 X10 1.5-7.8 [facility], [address] [place] [address] (Auto) 2019 2:06am 3/uL Lena M A 72173 Lymphocytes # June 29, 1.8 X10 1.0-4.8 [facility], [address] [place] [address] (Auto) 2019 2:06am 3/uL Lena M A 43609 Monocytes # (Auto) June 29, 0.8 X10 0.0-0.8 [facility], [address] [place] [address] 2019 2:06am 3/uL Lena M A 91597 Eosinophils # June 29, 0.6 X10 0.0-0.5 [facility], [address] [place] [address] (Auto) 2019 2:06am 3/uL Lena M A 51388 Basophils # (Auto) June 29, 0.1 X10 0.0-0.2 [facility], [address] [place] [address] 2019 2:06am 3/uL Lena M A 23390 Hemoglobin A1c June 29, 6.5 4.3-5.9 [facility], [address] [place] [address] 2019 2:06am Lena M A 80025 Estimated Average June 29, 140 [facility], [address] [place] [address] Glucose (eAG) 2019 2:06am mg/dl [facility] Nucleated Red June 29, 0.0 /100 0.0-0.0 [facility], [address] [place] [address] Blood Cells % 2019 2:06am WBC [facility] Sodium Level June 29, 136 137-146 [facility], [address] [facility] 2020 2:06am mmol/L [facility] A 41947 Potassium Level June 29, 4.4 3.5-5.3 [facility], [address] [facility] 2020 2:06am mmol/L [facility] A 28702 Chloride Level June 29, 99 98-107 [facility], [address] [facility] 2020 2:06am mmol/L [facility] A 30227 Carbon Dioxide June 29, 23 23-32 [facility], [address] [facility] Level 2020 2:06am mmol/L [facility] A 40416 Anion Gap June 29, 14 5-15 [facility], [address] [facility] 2020 2:06am mmol/L [facility] A 34865 Blood Urea June 29, 22 mg/dl 5-25 [facility], [address] [facility] Nitrogen 2019 2:06am [facility] A 46557 Creatinine June 29, 1.3 0.6-1.4 [facility], [address] [place] [address] 2020 2:06am mg/dL [facility] A 02999 Estimated June 29, 74.6 This value [facility], [address] [place] [address] Creatinine 2020 2:06am ml/min is [facility] 91129 Clearance calculated by Cockcroft Gault Equation using ideal body weight. This result is dependent on an accurate patient height and weight which is obtained from patients medical record. Nashcroft, D.W. and M.H. Gault. Prediction of creatinine clearance from serum creatinine. Nephron. 1976. 16(1):31-41 . Estimated GFR June 29, > 60 >60 [facility], [address] [facility] () 2020 2:06[place] [address] Estimated GFR June 29, > 60 >60 [facility], [address] [place] [address] (Non- 2020 2:06[place] [address] Ethiopian BUN/Creatinine June 29, 16.9 10.0-20.0 [facility], [address] [facility] Ratio 2019 2:06am Lena A 06964 Glucose Level June 29, 172 70-100 [facility], [address] [place] [address] 2019 2:06am mg/dL Kory Mendosa 68796 Calcium Level June 29, 8.4 8.6-10.3 [facility], [address] [place] [address] 2019 2:06am mg/dl Kory Mendosa 08007 Phosphorus Level June 29, 4.1 2.5-4.5 [facility], [address] [place] [address] 2019 2:06am mg/dL Kory Mendosa 01000 Magnesium Level June 29, 1.8 1.8-2.5 [facility], [address] [place] [address] 2019 2:06am mg/dL Kory Mendosa 95108 Total Bilirubin June 29, 0.3 <1.2 [facility], [address] [place] [address] 2019 2:06am mg/dl Kory Mendosa 48307 Direct Bilirubin June 29, < 0.2 <0.5 [facility], [address] [place] [address] 2019 2:06am mg/dl Kory Mendosa 98541 Aspartate Amino June 29, 16 U/L 15-41 [facility], [address] [place] [address] Transf (AST/SGOT) 2019 2:06am Kory VILLALOBOS 17708 Alanine June 29, 14 U/L 14-63 [facility], [address] [place] [address] Aminotransferase 2019 2:06[place] [address] (ALT/SGPT) Creatine Kinase MB June 29, 2.0 0.0-6.0 [facility], [address] [place] [address] 2019 9:50am ng/ml Kory Mendosa 29890 Troponin T June 29, < 0.01 [facility], [address] [place] [address] 2019 9:50am ng/ml Kory Mendosa 46467 Total Protein June 29, 7.0 g/dL 6.4-8.3 [facility], [address] [place] [address] 2019 2:06am Kory Mendosa 11475 Albumin June 29, 4.1 g/dl 4.0-5.0 [facility], [address] [place] [address] 2019 2:06am [facility] A 07488 Albumin/Globulin June 29, 1.4 1.0-2.6 [facility], [address] [place] [address] Ratio 2019 2:06am [facility] A 90073 Triglycerides June 29, 134 <150 <=150 mg/dL [facility], [address] [place] [address] Level 2019 2:06am mg/dL = Desirable [facility] 68287 Cholesterol Level June 29, 177 <200 <200 mg/dL [facility], [address] [place] [address] 2019 2:06am mg/dl = Desirable [facility] 25873 LDL Cholesterol, June 29, 99 mg/dl <130 [facility], [address] [place] [address] Calculated 2019 2:06am [facility] 35540 HDL Cholesterol June 29, 51 mg/dL >40 < 40 mg/dl: [facility], [address] [place] [address] 2019 2:06am Low [facility] A 62037 HDL-cholest enmanuel(major risk factor for CHD)>/= 60 mg/dl: High HDL-cholest enmanuel(negati ve risk factor for CHD)HDL-cho lesterol is affected by a number of factors, e.g., smoking, excercise, hormones, sex and age. Cholesterol Ratio June 29, 1.9 LDL/HDL [facility], [address] [place] [address] (LDL/HDL) 2019 2:06am Interpretat [facility] 71390 ion:Ratio Men Women1/2 Average 1.00 1.47Average 3.55 3.222X Average 6.25 5.033X Average 7.99 6.14 Cholesterol/HDL June 29, 3.5 Cholesterol [facility], [address] [place] [address] Ratio 2019 2:06am /HDL [facility] A 96223 Interpretat ion: Ratio Men Women 1/2 Average 3.43 3.27 Average 4.97 4.44 2X Average 9.55 7.05 3X Average 23.39 11.04 Alkaline June 29, 81 U/L 40-129 [facility], [address] [place] [address] Phosphatase 2019 2:06am [facility] 45726 Diagnostic Imaging Reports Report Dictated Date/Time Dictated By Status Communication Report April 21, 2018 1:32pm Service Allscript s completed [address] [address] CDI Assessment Signed Patient: W[place] SARABIA Medical Record#: [id number] : 1960 Acct:[id number] Age/Sex: 58 / M Admit/Reg Date: 04/20/18 Loc: 3NE. Room: [place] [address] Report Number : [id number]: Sharmin Amanda MD PT : [place] SARABIA : 1960 ACCT: [id number] ADMIT DATE: 04-20-2018 Dictated By: Maya Su Signed By: Maya Su 04/21/18 1 332 DD/ 1332 TD/TT: 04/21/18 133 Catalog Specialist: Maria Elena Peterson cc: * Case Management Initial April 21, 2018 2:23pm Service Allscr ipts completed Assessment [address] [address] Initial Discharge Planning Signed Patient: W[place] SARABIA Medical Record#: [id number] : 1960 Acct:[id number] Age/Sex: 58 / M Admit/Reg Date: 04/20/18 Loc: 3NE. Room: [place] [address] Report Number : [id number]: Sharmin Amanda MD Patient Name: WASHINGTON SARABIA MRN: [id number] Acct Number: [id number] : 1960 Age: 58 Admission Information Patient Type: INPATIENT Admit Date: 04/20/2018 Admit Time: 20:1 5 Admit Reason: CHEST PAIN Unit: 3NE. Bed: [place] [address] Discharge Disposition: Xfer to [facility] 7.Initial Discharge Planning Assessment Created by : Ana alas Date/Time 2018-04-21 14:21:09.000 Initial Discharge Planning Assessment Interviewed:: Patient Prior Functional Status: Independent Have you ever served in the Join [employer] Wellness Team?: No Living Situation / Support System: Home less Anticipated Discharge Discussed With: P atient Anticipated Discharge Plan: Psych Facil ity (Inpatient) Note: Patient sleeping at time of CM vi sit, answering CM questions minimally. Patient was on an inpatient Psychiatry floor before being transferred to medicine. Patient's PCP [facility] at [facility]. Per EMR, patient is homeless and patient's Megha peña ([phone]) is listed as patient's contact. Patient will like ly be discharged back to inpatient psych when medically cleared. Will cont inue to follow. Electronically signed by: Ana castillo Electronically signed on: 2018-04-21 Dictated By: Maya Su Signed By: Maya Su 04/21/18 1 423 DD/DT: TD/TT: Catalog Specialist: [id number] cc: * Radiology Report April 21, 2018 3:56pm Grant Bashir MD [address] [address] Patient Name: WASHINGTON SARABIA [address]#: [id number] Address: [address] [place] [address] Account#: [id number] City/State/Zip: [place], [place] [address] : Sharmin Amanda MD Insurance: [facility] /Age/Sex: 1960/58/M Self Pay Admit/Reg Date: 04/20/[address]: Gume Mckeon MD [facility]: [facility][id number] PCP: Md Jesus Date of Service: 04/20/18 Order (s): XR chest 2V CPT Code: 19459 Report Number: [id number] Reason for Exam: chest pain CHEST (2 views) (27945) History: chest pain Findings: The heart size is within normal limits with a tortuous aorta. The lungs are clear. There is no confluent infiltrate or effusion. There is multilead cardiac pacemaker. IMPRESSION: No acute process seen. No ED interpretation available. Dictated By: Grant Bashir MD 1555 Signed By: Grant Sanchez MD 7 TD/TT: 04/21/18 1556Tech: [id number] cc: Germania Mckeon MD; Md Jesus ; Kylah Amanda MD* Radiology Report June 30, 2019 12:41pm Kali [place] [address] Patient Name: [place] Sarabia [facility] rd#: [id number] Address: [address] [place] [address] Account#: [id number] City/State/Zip: [place] [address]: Gurjit Solomon MD Insurance: [facility] /Age/Sex: 1960/59/M Self Pay Admit/Reg Date: 06/30/[address]: Kylah Limon MD Location: S6W./[id number] PCP: Md Jesus Date of Service: 06/30/19 Order (s): XR chest 1V portable CPT Code: 39942 Report Number: [id number] Reason for Exam: Chest Pain CLINICAL [...] June 30, 2019 12:53pm Service Allscript s [address] Assessment Note Signed Patient: [place] Sarabia Medical Record#: [id number] : 1960 Acct:[id number] Age/Sex: 59 / M Admit/Reg Date: 06/30/19 Loc: [facility]. Room: [address] Report Number : [id number]: Gurjit Solomon MD Patient Name: [place] Sarabia MRN: [id number] Acct Number: [id number] : 1960 Age: 59 Admission Information Patient Type: INPATIENT OBSERVATION Admit Date: 06/30/2019 Admit Time: 05:5 9 Admit Reason: CHEST PAIN R/O AL,PACEMAK ER FIRED X3 Unit: [address] Bed: [address] Discharge Disposition: Home, Self-Care 3. Case Management Note Created by : Celio Redman Date/Time 06-29 12:52:07.000 Note: reports Pt is medically stable to discharge back to [facility]: [facility], [place], [place] today. [facility] requested a copy [...] Maya Su 06/30/19 1 253 DD/DT: TD/TT: Catalog Specialist: [id number] cc: * Advance Directives Advance Directive Response Recorded Date/Time Pt has Medical Orders for Life Sustaining Tx No April 21, 2018 12:53am Form (MOLST)? Advance Directives No June 30, 2019 10: 38am Health Care Proxy Yes June 30, 2019 10: 38am Chief Complaint and Reason for Visit Chief Complaint CHEST PAIN R/O AL,PACEMAKER FIRED X3 Reason for Visit Chest pain, rule out acute m yocardial infarction Mood disorder Pacemaker complications Encounters Encounter Location(s) Arrival/Admit Date Discharge/Depart Date Provider(s) Discharged [facility] April 21, 2018 April 21, 2018 [facility]3 1:03am 2:35pm MD [place] [facility]charged [facility] June 30, 2019 June 30, 2019 Cristina monete A Inpatient Medical 5:59am 3:57pm MD Juanito [address] Recent Diagnosis Onset Date Chest pain, [...] You will be discharged back to your [facility]e. No changes were made to your medication regimen. You were also evaluated by psychiatry an d they do not believe you have any active suicidal ideation. They recommended that you be discharged back to the respite. Please continue taking all your medicati ons as before. You prefer to follow up with cardiology at [facility]. Please call [phone] or [phone] to make an appointment with cardiology at [facility], Dr. Kali Richardson or Dr. Mack [...] Insurance Providers Guarantor [place] Sarabia Address [address] [address] Contact Info. 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
--- NOTE | 2022-04-07 13:30 | ED.GENADULT ---
HPI - General Adult General Source: patient <Mahi Noland NP - Last Filed: 04/08/22 02:06> Mode of arrival: ambulatory <Mahi Noland NP - Last Filed: 04/08/22 02:06> Limitations: no limitations <Mahi Noland NP - Last Filed: 04/08/22 02:06> History of Present Illness HPI narrative: 62-year-old male presents for chest pressure that started while he was at an AA meeting. States that it feels like that there is someone sitting on his chest and then the pain radiates to his left arm. <Mahi Noland NP - Last Filed: 04/08/22 02:06> Onset (ago): hour(s) (Several hours prior to arrival) <Mahi Noland NP - Last Filed: 04/08/22 02:06> Location: chest <Mahi Noland NP - Last Filed: 04/08/22 02:06> Radiation: extremity <Mahi Noland NP - Last Filed: 04/08/22 02:06> Severity: moderate <Mahi Noland NP - Last Filed: 04/08/22 02:06> Severity scale (1-10): 6 <Mahi Noland NP - Last Filed: 04/08/22 02:06> Quality: aching and other (Pressure) <Mahi Noland NP - Last Filed: 04/08/22 02:06> Pain Consistency: constant <Mahi Noland NP - Last Filed: 04/08/22 02:06> Relieving factors: none <Mahi Noland NP - Last Filed: 04/08/22 02:06> Exacerbating factors: none <Mahi Noland NP - Last Filed: 04/08/22 02:06> Associated symptoms: denies other symptoms <Mahi Noland NP - Last Filed: 04/08/22 02:06> Treatments prior to arrival: none <Mahi Noland NP - Last Filed: 04/08/22 02:06> Related Data Home medications: Previous Rx's Medication Instructions Recorded acetaminophen 325 mg tablet 650 mg PO Q6H PRN Headache/Pain 06/22/22 Mild Scale (1-3) #0 tabs aspirin 81 mg tablet,delayed 81 mg PO DAILY #0 tabs 09/22/21 release hydroxyzine HCl 25 mg tablet 25 mg PO BEDTIME PRN Anxiety #0 09/22/21 tabs isosorbide mononitrate 30 mg 30 mg PO DAILY #0 tabs 09/22/21 tablet,extended release 24 hr levothyroxine 75 mcg tablet 75 mcg PO DAILY@0630 #0 tabs 09/22/21 lisinopril 2.5 mg tablet 2.5 mg PO DAILY #0 tabs 09/22/21 naproxen 500 mg tablet 500 mg PO BID PRN Pain, Moderate 09/22/21 (Pain Scale 4-6 #0 tabs paroxetine HCl 10 mg tablet 10 mg PO DAILY #0 tabs 09/22/21 albuterol sulfate 90 mcg/actuation 2 puff inhalation RQ4H PRN 09/28/21 aerosol inhaler Shortness Of Breath 30 days #1 inhaler gabapentin 300 mg capsule 300 mg PO BID #0 caps 09/28/21 gabapentin 300 mg capsule 300 mg PO BID 30 days #60 caps 09/28/21 gabapentin 300 mg capsule 300 mg PO DAILY PRN anxiety #0 caps 09/28/21 lidocaine 4 % topical patch 1 patch transdermal DAILY 30 days 09/28/21 (Lidocaine Pain Relief) #30 ea melatonin 3 mg tablet 6 mg PO BEDTIME #0 tabs 09/28/21 metformin 500 mg tablet 500 mg PO BIDWM 30 days #60 tabs 09/28/21 metoprolol succinate 100 mg 100 mg PO DAILY #0 tabs 09/28/21 tablet,extended release 24 hr olanzapine 2.5 mg tablet 2.5 mg PO DAILY #0 tabs 09/28/21 olanzapine 2.5 mg tablet 2.5 mg PO DAILY PRN anxiety 09/28/21 somatic preoccupation #0 tabs trazodone 100 mg tablet 100 mg PO BEDTIME #0 tabs 09/28/21 <JEN Van-BC - Last Filed: 04/13/22 20:49> Allergies/adverse reactions: Allergies Allergy/AdvReac Type Severity Reaction Status Date / Time aripiprazole [From [facility]] Allergy Severe Rash Verified 04/07/22 13:32 peas Allergy Severe HIVES Verified 04/07/22 13:32 bee pollen [bee stings] AdvReac Severe Anaphylaxis Verified 04/07/22 13:32 lipitor Allergy Severe hives, Uncoded 09/22/21 02:26 rash, difficulty breathing <RUBÉN Van - Last Filed: 04/13/22 20:49> Review of Systems Review of Systems: Constitutional: No Fever, No Chills Cardiovascular: Positive Chest Pain, No SOB Respiratory: No Cough, No Dyspnea Gastrointestinal: No Nausea, No Vomiting, No Diarrhea, No abdominal Pain Genitourinary: No Dysuria, No Hematuria Musculoskeletal: No joint pain, No Myalgias Skin: No rash Neuro: No Weakness, No Numbness, No Paresthesias, No Dizziness, No Headache <Mahi Noland NP - Last Filed: 04/08/22 02:06> Yes all other systems are reviewed and are negative <Mahi Noland NP - Last Filed: 04/08/22 02:06> [facility] Past Medical History Attestation statement: The following information was validated with the patient. <Mahi Noland NP - Last Filed: 04/08/22 02:06> Source: old records reviewed <Mahi Noland NP - Last Filed: 04/08/22 02:06> Medical History: Medical History Anxiety Artificial cardiac pacemaker Asthma Cardiac defibrillator in place COPD (chronic obstructive pulmonary disease) Depression Developmental delay, mild Diabetes GERD (gastroesophageal reflux disease) History of ETOH abuse Hyperlipidemia Hypertension Hyperthyroidism RBBB Seizure Sleep apnea <RUBÉN Van - Last Filed: 04/13/22 20:49> Surgical History: Surgical History History of cardiac cath <RUBÉN Van - Last Filed: 04/13/22 20:49> Social History Social History: Social History Household Members: Other Housing: Other Housing Other:: Sober House Do you presently have visiting nurse or other home services: No Alcohol intake: former Patient Tobacco Use Status: Former Tobacco user Quit Date: 30 years Tobacco use type: Cigarette Smoked in Last 30 Days: No Second Hand Smoke Exposure: No Use of substances other than those prescribed or required for medical reasons: No Substance Use Type: Former Substance User, Prescription Drugs and Caffiene Advance Directives: No service: No Current occupational status: disabled Sexual orientation: Did not discuss. <JEN Van-BC - Last Filed: 04/13/22 20:49> Physical Exam ED Vital Signs: Vital Signs - 24 hr 04/07/22 13:29 04/07/22 19:55 04/07/22 21:07 Temperature 97.5 F Pulse Rate 90 72 72 Respiratory Rate 20 12 18 Blood Pressure 140/71 H 117/79 128/76 Pulse Oximetry 97 96 98 Oxygen Delivery Method Room Air Room Air Room Air BMI result Body Mass Index 35.4 <JEN Van-BC - Last Filed: 04/13/22 20:49> Vital Signs - 24 hr 04/07/22 13:29 04/07/22 19:55 04/07/22 21:07 Temperature 97.5 F Pulse Rate 90 72 72 Respiratory Rate 20 12 18 Blood Pressure 140/71 H 117/79 128/76 Pulse Oximetry 97 96 98 Oxygen Delivery Method Room Air Room Air Room Air BMI result Body Mass Index 35.4 <Mahi Noland NP - Last Filed: 04/08/22 02:06> Appearance: Alert. Oriented X3. No acute distress. Eyes: Pupils equal, round and reactive to light. ENT: Pharynx normal. Neck: Normal inspection. Neck supple. CVS: Normal heart rate and rhythm. Pulses normal. Respiratory: No respiratory distress. Breath sounds normal. Abdomen: Soft and nontender. Skin: Skin warm and dry. Normal skin color. Normal skin turgor. Extremities: No lower extremity edema. Gait balanced and coordinated. Neuro: No motor deficit. No sensory deficit. Cranial nerves 2-12 intact. <Mahi Noland NP - Last Filed: 04/08/22 02:06> Course Course Course Narrative: RME 62-year-old male with past medical history of hypertension, implanted defibrillator, COPD, anxiety, Dr. diabetes, ETOH use, hyperlipidemia, RBBB, sleep apnea me, cardiac catheterization presents here with left-sided chest pain that started 5 minutes before coming to the hospital. Patient states that he was sitting during a meeting and the he felt chest pressure like something is sitting on his chest with radiation to his left arm. Patient denies any nausea or vomiting reports mild shortness of breath with that. Patient had similar symptoms in September of 2021 and admitted for observation. Patient sees Dr. Nix at [facility]. Seen by water valve repairer 2 months ago next appointment is in May. Patient reports that he had milder chest pressure 3 weeks ago seen at [facility] admitted overnight for observation. Patient's states that they did not find anything. Patient has been sober for 5 months. Reports to be taking all his medications. Patient will be taking inside. Charge nurse aware that patient should go in to the ED <Maddi Johnson, MEDICAL OFFICE CLERK-BC - Last Filed: 04/13/22 20:49> RME 62-year-old male with past medical history of hypertension, implanted defibrillator, COPD, anxiety, Dr. diabetes, ETOH use, hyperlipidemia, RBBB, sleep apnea me, cardiac catheterization presents here with left-sided chest pain that started 5 minutes before coming to the hospital. Patient states that he was sitting during a meeting and the he felt chest pressure like something is sitting on his chest with radiation to his left arm. Patient denies any nausea or vomiting reports mild shortness of breath with that. Patient had similar symptoms in September of 2021 and admitted for observation. Patient sees Dr. Nix at [facility]. Seen by water valve repairer 2 months ago next appointment is in May. Patient reports that he had milder chest pressure 3 weeks ago seen at [facility] admitted overnight for observation. Patient's states that they did not find anything. Patient has been sober for 5 months. Reports to be taking all his medications. Patient will be taking inside. Charge nurse aware that patient should go in to the ED 62-year-old male presents for chest pressure that started while he was at an AA meeting. States the pressure is still present, but does not report any other symptoms. I do suspect this patient has a cognitive deficit but is able to make his needs known and articulates well. Based on patient's history, will order PE study. Will repeat troponin, and EKG. Will give aspirin, morphine and Zofran 21:33 patient is negative for PE, aneurysm, ACS workup is negative. COVID influenza RSV negative. Most likely due to possible anxiety. What patient follow-up with primary care. Patient verbalized understanding of and agrees to plan of care discharge home. Verbalized understanding of signs and symptoms indicating need for emergent intervention. <Mahi Noland NP - Last Filed: 04/08/22 02:06> Medications Administered Discontinued Medications Generic Name Dose Route Start Last Admin Trade Name Freq PRN Reason Stop Dose Admin Aspirin 243 mg 04/07/22 18:36 04/07/22 18:50 Aspirin 81 Mg Tab.Chew PO 04/07/22 18:37 243 mg ONCE ONE Administration Iohexol 100 ml 04/07/22 19:17 04/07/22 19:18 Iohexol 350 Mg/Ml 100 Ml Infus..Btl IV 04/07/22 19:18 65 ml ONCE ONE Administration Morphine Sulfate 2 mg 04/07/22 18:36 04/07/22 18:51 Morphine Sulfate 2 Mg/Ml Cartridge IVPUSH 04/07/22 18:37 2 mg ONCE ONE Administration Protocol Ondansetron HCl 4 mg 04/07/22 18:36 04/07/22 18:50 Ondansetron Hcl 4 Mg/2 Ml Vial IVPUSH 04/07/22 18:37 4 mg ONCE ONE Administration <Maddi Johnson, MEDICAL OFFICE CLERK-BC - Last Filed: 04/13/22 20:49> Medications Administered Discontinued Medications Generic Name Dose Route Start Last Admin Trade Name Freq PRN Reason Stop Dose Admin Aspirin 243 mg 04/07/22 18:36 04/07/22 18:50 Aspirin 81 Mg Tab.Chew PO 04/07/22 18:37 243 mg ONCE ONE Administration Iohexol 100 ml 04/07/22 19:17 04/07/22 19:18 Iohexol 350 Mg/Ml 100 Ml Infus..Btl IV 04/07/22 19:18 65 ml ONCE ONE Administration Morphine Sulfate 2 mg 04/07/22 18:36 04/07/22 18:51 Morphine Sulfate 2 Mg/Ml Cartridge IVPUSH 04/07/22 18:37 2 mg ONCE ONE Administration Protocol Ondansetron HCl 4 mg 04/07/22 18:36 04/07/22 18:50 Ondansetron Hcl 4 Mg/2 Ml Vial IVPUSH 04/07/22 18:37 4 mg ONCE ONE Administration <Mahi Noland NP - Last Filed: 04/08/22 02:06> Medical Decision Making Differential Diagnosis Differential Diagnoses: The differential diagnosis associated with the presentation includes <Mahi Noland NP - Last Filed: 04/08/22 02:06> ACS, PE, pneumonia, pneumothorax, tamponade, aneurysm, COVID, influenza, RSV <Mahi Noland NP - Last Filed: 04/08/22 02:06> Admission/Observation Consideration of admission/observation: Escalation of care including admission/observation considered <Mahi Noland NP - Last Filed: 04/08/22 02:06> If patient has critical findings, will consider admission <Mahi Noland NP - Last Filed: 04/08/22 02:06> Lab Data MDM Lab Attestation statement: I reviewed the patient's lab results. <Mahi Noland NP - Last Filed: 04/08/22 02:06> Result Diagrams: 04/07/22 14:21 04/07/22 14:21 <FABY Van - Last Filed: 04/13/22 20:49> Labs: Lab Results 04/07/22 04/07/22 04/07/22 Range/Units 14:21 14:21 14:21 WBC 6.6 (4.8-10.8) X10*3/uL RBC 4.27 L (4.60-5.80) X10*6/uL Hgb 12.7 L (14.0-18.0) g/dl Hct 37.4 L (42.0-52.0) % MCV 87.6 (80.0-98.0) fL MCH 29.7 (27.0-33.0) pg MCHC 34.0 (31.0-36.0) g/dl RDW 12.7 (11.0-16.0) % Plt Count 89 L (160-400) X10*3/uL MPV 11.2 (9.4-12.4) fL Immature Gran % (Auto) 0.9 H (0.0-0.4) % Neut % (Auto) 73.8 H (45-73) % Lymph % (Auto) 13.9 L (20-40) % Ramsey % (Auto) 8.8 (2-11) % Eos % (Auto) 1.7 (0-4) % Baso % (Auto) 0.9 (0-2) % Lymph # (Auto) 0.9 L (1.2-4.9) X10*3/uL Ramsey # (Auto) 0.6 (0.1-1.2) X10*3/uL Eos # (Auto) 0.1 (0.0-0.4) X10*3/uL Baso # (Auto) 0.1 (0.0-0.2) X10*3/uL Abs Immat Gran (auto) 0.06 H (0.00-0.03) X10*3/uL Absolute Neuts (auto) 4.8 (2.0-8.3) x10*3/uL Absolute Nucleated RBC 0.000 (0.0-0.012) X10*3/uL Nucleated RBC % (auto) 0.0 (0.0-0.2) /100WBC Sodium 140 (135-145) mmol/L Potassium 3.5 (3.3-5.1) mmol/L Chloride 108 (96-108) mmol/L Carbon Dioxide 24 (22-29) mmol/L Anion Gap 12 (12-20) BUN 14 (9-16) mg/dL Creatinine 1.18 (0.5-1.4) mg/dL Estim Creat Clear Calc 80.9 Estimated GFR > 60 Random Glucose 140 H (60-115) mg/dL Calcium 8.0 L (8.4-10.2) mg/dL Troponin I High Sens < 3.5 (<3.5-35.0) ng/L Influenza Type A (PCR) (Negative) Influenza Type B (PCR) (Negative) RSV RNA Qual (PCR) (Negative) SARS-CoV-2 RNA (RT-PCR) (Negative) 04/07/22 04/07/22 Range/Units 18:47 18:47 WBC (4.8-10.8) X10*3/uL RBC (4.60-5.80) X10*6/uL Hgb (14.0-18.0) g/dl Hct (42.0-52.0) % MCV (80.0-98.0) fL MCH (27.0-33.0) pg MCHC (31.0-36.0) g/dl RDW (11.0-16.0) % Plt Count (160-400) X10*3/uL MPV (9.4-12.4) fL Immature Gran % (Auto) (0.0-0.4) % Neut % (Auto) (45-73) % Lymph % (Auto) (20-40) % Ramsey % (Auto) (2-11) % Eos % (Auto) (0-4) % Baso % (Auto) (0-2) % Lymph # (Auto) (1.2-4.9) X10*3/uL Ramsey # (Auto) (0.1-1.2) X10*3/uL Eos # (Auto) (0.0-0.4) X10*3/uL Baso # (Auto) (0.0-0.2) X10*3/uL Abs Immat Gran (auto) (0.00-0.03) X10*3/uL Absolute Neuts (auto) (2.0-8.3) x10*3/uL Absolute Nucleated RBC (0.0-0.012) X10*3/uL Nucleated RBC % (auto) (0.0-0.2) /100WBC Sodium (135-145) mmol/L Potassium (3.3-5.1) mmol/L Chloride (96-108) mmol/L Carbon Dioxide (22-29) mmol/L Anion Gap (12-20) BUN (9-16) mg/dL Creatinine (0.5-1.4) mg/dL Estim Creat Clear Calc Estimated GFR Random Glucose (60-115) mg/dL Calcium (8.4-10.2) mg/dL Troponin I High Sens < 3.5 (<3.5-35.0) ng/L Influenza Type A (PCR) NEGATIVE (Negative) Influenza Type B (PCR) NEGATIVE (Negative) RSV RNA Qual (PCR) NEGATIVE (Negative) SARS-CoV-2 RNA (RT-PCR) NEGATIVE (Negative) <Maddi Johnson, MEDICAL OFFICE CLERK-BC - Last Filed: 04/13/22 20:49> Lab Results 04/07/22 04/07/22 04/07/22 Range/Units 14:21 14:21 14:21 WBC 6.6 (4.8-10.8) X10*3/uL RBC 4.27 L (4.60-5.80) X10*6/uL Hgb 12.7 L (14.0-18.0) g/dl Hct 37.4 L (42.0-52.0) % MCV 87.6 (80.0-98.0) fL MCH 29.7 (27.0-33.0) pg MCHC 34.0 (31.0-36.0) g/dl RDW 12.7 (11.0-16.0) % Plt Count 89 L (160-400) X10*3/uL MPV 11.2 (9.4-12.4) fL Immature Gran % (Auto) 0.9 H (0.0-0.4) % Neut % (Auto) 73.8 H (45-73) % Lymph % (Auto) 13.9 L (20-40) % Ramsey % (Auto) 8.8 (2-11) % Eos % (Auto) 1.7 (0-4) % Baso % (Auto) 0.9 (0-2) % Lymph # (Auto) 0.9 L (1.2-4.9) X10*3/uL Ramsey # (Auto) 0.6 (0.1-1.2) X10*3/uL Eos # (Auto) 0.1 (0.0-0.4) X10*3/uL Baso # (Auto) 0.1 (0.0-0.2) X10*3/uL Abs Immat Gran (auto) 0.06 H (0.00-0.03) X10*3/uL Absolute Neuts (auto) 4.8 (2.0-8.3) x10*3/uL Absolute Nucleated RBC 0.000 (0.0-0.012) X10*3/uL Nucleated RBC % (auto) 0.0 (0.0-0.2) /100WBC Sodium 140 (135-145) mmol/L Potassium 3.5 (3.3-5.1) mmol/L Chloride 108 (96-108) mmol/L Carbon Dioxide 24 (22-29) mmol/L Anion Gap 12 (12-20) BUN 14 (9-16) mg/dL Creatinine 1.18 (0.5-1.4) mg/dL Estim Creat Clear Calc 80.9 Estimated GFR > 60 Random Glucose 140 H (60-115) mg/dL Calcium 8.0 L (8.4-10.2) mg/dL Troponin I High Sens < 3.5 (<3.5-35.0) ng/L Influenza Type A (PCR) (Negative) Influenza Type B (PCR) (Negative) RSV RNA Qual (PCR) (Negative) SARS-CoV-2 RNA (RT-PCR) (Negative) 04/07/22 04/07/22 Range/Units 18:47 18:47 WBC (4.8-10.8) X10*3/uL RBC (4.60-5.80) X10*6/uL Hgb (14.0-18.0) g/dl Hct (42.0-52.0) % MCV (80.0-98.0) fL MCH (27.0-33.0) pg MCHC (31.0-36.0) g/dl RDW (11.0-16.0) % Plt Count (160-400) X10*3/uL MPV (9.4-12.4) fL Immature Gran % (Auto) (0.0-0.4) % Neut % (Auto) (45-73) % Lymph % (Auto) (20-40) % Ramsey % (Auto) (2-11) % Eos % (Auto) (0-4) % Baso % (Auto) (0-2) % Lymph # (Auto) (1.2-4.9) X10*3/uL Ramsey # (Auto) (0.1-1.2) X10*3/uL Eos # (Auto) (0.0-0.4) X10*3/uL Baso # (Auto) (0.0-0.2) X10*3/uL Abs Immat Gran (auto) (0.00-0.03) X10*3/uL Absolute Neuts (auto) (2.0-8.3) x10*3/uL Absolute Nucleated RBC (0.0-0.012) X10*3/uL Nucleated RBC % (auto) (0.0-0.2) /100WBC Sodium (135-145) mmol/L Potassium (3.3-5.1) mmol/L Chloride (96-108) mmol/L Carbon Dioxide (22-29) mmol/L Anion Gap (12-20) BUN (9-16) mg/dL Creatinine (0.5-1.4) mg/dL Estim Creat Clear Calc Estimated GFR Random Glucose (60-115) mg/dL Calcium (8.4-10.2) mg/dL Troponin I High Sens < 3.5 (<3.5-35.0) ng/L Influenza Type A (PCR) NEGATIVE (Negative) Influenza Type B (PCR) NEGATIVE (Negative) RSV RNA Qual (PCR) NEGATIVE (Negative) SARS-CoV-2 RNA (RT-PCR) NEGATIVE (Negative) <BANDAR Rosas Last Filed: 04/08/22 02:06> Independent Interpretation I performed an independent interpretation of an: EKG and CT Scan <BANDAR Rosas Last Filed: 04/08/22 02:06> Interpretation: Vent. rate 93 BPM CO interval 204 ms QRS duration 166 ms QT/QTc 410/509 ms P-R-T axes 58 114 43 Sinus rhythm with Premature atrial complexes with Aberrant conduction Right bundle branch block Abnormal ECG When compared with ECG of 23-OCT-2021 15:19, No significant changes seen 07-APR-2022 13:16:39 Vent. rate 77 BPM CO interval 178 ms QRS duration 182 ms QT/QTc 474/536 ms P-R-T axes 118 72 129 Sinus rhythm with occasional Premature ventricular complexes Right bundle branch block Abnormal ECG When compared with ECG of 07-APR-2022 13:16, Premature ventricular complexes are now Present Aberrant conduction is no longer Present QRS axis Shifted left 07-APR-2022 18:51:00 <BANDAR Rosas Last Filed: 04/08/22 02:06> Radiology Impression Discussion of test interpretation with radiology: I have reviewed the radiologist's reading. <BANDAR Rosas Last Filed: 04/08/22 02:06> Radiologist Impression: FINDINGS: QUALITY OF STUDY/CONTRAST BOLUS: Satisfactory. PULMONARY ARTERIES: No central or segmental pulmonary emboli.? THORACIC AORTA: No aneurysm or dissection. LUNG: No focal consolidation, nodules or masses. PLEURA: No pleural effusion or pneumothorax. MEDIASTINUM: Cardiomegaly. No pericardial effusion. No significant mediastinal or hilar adenopathy.? No evidence of septal bowing or right heart strain. CORONARY ARTERY CALCIFICATION: None visualized on this study. CHEST WALL/AXILLA: No axillary or internal mammary adenopathy. A left chest wall cardiac device is again noted. OSSEOUS STRUCTURES: No acute or suspicious osseous abnormality.? UPPER ABDOMEN: Unremarkable.? No reflux of contrast into the hepatic veins to suggest elevated right heart pressures. CT/CT angio chest PE protocol IMPRESSION: 1.? No acute pulmonary embolus. 2.? Cardiomegaly VTE: negative <Mahi Noland NP - Last Filed: 04/08/22 02:06> External Record Review External record reviewed: Inpatient record, Outpatient record and Prior outpatient labs <Mahi Noland NP - Last Filed: 04/08/22 02:06> Chronic Conditions Patient?s care impacted by: Diabetes and Hypertension <Mahi Noland NP - Last Filed: 04/08/22 02:06> Scores Heart Score History: -1- moderately suspicious <Mahi Noland NP - Last Filed: 04/08/22 02:06> ECG: -0- normal <Mahi Noland NP - Last Filed: 04/08/22 02:06> Age: -1- >45 - <65 <Mahi Noland NP - Last Filed: 04/08/22 02:06> Risk factory: -1- 1 or 2 risk factors <Mahi Noland NP - Last Filed: 04/08/22 02:06> Troponin: -0- < or = normal limit <Mahi Noland NP - Last Filed: 04/08/22 02:06> Score: 3 <RUBÉN Van - Last Filed: 04/13/22 20:49> 3 <Mahi Noland NP - Last Filed: 04/08/22 02:06> Risk: 1.7% <RUBÉN Van - Last Filed: 04/13/22 20:49> 1.7% <Mahi Noland NP - Last Filed: 04/08/22 02:06> Discharge Plan Discharge Clinical Impression: Atypical chest pain <RUBÉN Van - Last Filed: 04/13/22 20:49> Patient Disposition: Home, Self-Care <RUBÉN Van - Last Filed: 04/13/22 20:49> Instructions: Chest Pain (ED) <RUBÉN Van - Last Filed: 04/13/22 20:49> Additional Instructions: You were evaluated for chest pain. CT PE study is negative for aneurysm and pulmonary embolism. Your cardiac workup was negative, your troponins were negative, and your EKG was normal sinus. Your lab work was negative for acute findings requiring emergent intervention. You do have chronic findings of a low platelet count which you have had for several years. Your blood sugar was elevated at 140. Please follow-up with your primary care physician as you may need your metformin increased from 500 mg to a 1000 twice a day. Thank you for choosing this emergency department for evaluation. Please follow-up with primary care physician as needed. Return to the emergency department for any new, concerning, or worsening symptoms. <RUBÉN Van - Last Filed: 04/13/22 20:49> Prescriptions: No Action isosorbide mononitrate 30 mg Tablet Extended Release 24 Hr 30 mg PO DAILY Qty: 0 0RF Protocol: Hold for SBP< HOLD for SBP < : 90 aspirin 81 mg Tablet,Delayed Release (Dr/Ec) 81 mg PO DAILY Qty: 0 0RF lisinopril 2.5 mg Tablet 2.5 mg PO DAILY Qty: 0 0RF Protocol: Hold for SBP< HOLD for SBP < : 90 acetaminophen 325 mg Tablet 650 mg PO Q6H PRN (Reason: Headache/Pain Mild Scale (1-3)) Qty: 0 0RF paroxetine HCl 10 mg Tablet 10 mg PO DAILY Qty: 0 0RF naproxen 500 mg Tablet 500 mg PO BID PRN (Reason: Pain, Moderate (Pain Scale 4-6) Qty: 0 0RF hydroxyzine HCl 25 mg Tablet 25 mg PO BEDTIME PRN (Reason: Anxiety) Qty: 0 0RF levothyroxine 75 mcg Tablet 75 mcg PO DAILY@0630 Qty: 0 0RF metformin 500 mg Tablet 500 mg PO BIDWM 30 Days Qty: 60 0RF lidocaine [Lidocaine Pain Relief] 4 % Adhesive Patch,Medicated 1 patch transdermal DAILY 30 Days Qty: 30 0RF Protocol: Apply to: Apply to: left lower back albuterol sulfate 90 mcg/actuation Hfa Aerosol Inhaler 2 puff inhalation RQ4H PRN (Reason: Shortness Of Breath) 30 Days Qty: 1 0RF metoprolol succinate 100 mg Tablet Extended Release 24 Hr 100 mg PO DAILY Qty: 0 0RF Protocol: Hold for SBP/HR < HOLD for SBP < : 90 HOLD for HR < : 60 olanzapine 2.5 mg Tablet 2.5 mg PO DAILY Qty: 0 0RF olanzapine 2.5 mg Tablet 2.5 mg PO DAILY PRN (Reason: anxiety somatic preoccupation ) Qty: 0 0RF trazodone 100 mg Tablet 100 mg PO BEDTIME Qty: 0 0RF gabapentin 300 mg Capsule 300 mg PO DAILY PRN (Reason: anxiety) Qty: 0 0RF gabapentin 300 mg Capsule 300 mg PO BID Qty: 0 0RF melatonin 3 mg Tablet 6 mg PO BEDTIME Qty: 0 0RF gabapentin 300 mg capsule 300 mg PO BID 30 Days Qty: 60 0RF <RUBÉN Van - Last Filed: 04/13/22 20:49> Referrals: Amari Vyas DO, MD [Primary Care Provider] - 1 week (Noncardiac chest pain, uncontrolled blood sugar) <RUBÉN Van - Last Filed: 04/13/22 20:49> Interventions: ED Discharge Assessment Last Done: 04/07/22 21:48 <RUBÉN Van - Last Filed: 04/13/22 20:49> Discharge Date/Time: 04/07/22 21:50 <RUBÉN Van - Last Filed: 04/13/22 20:49>
--- OUTSIDE RECORDS SUMMARY | 2022-04-07 13:30 | XMS_ITS | Continuity of Care Document ---
:1960 Author Organization [facility] Address [address] [place] [address] Phone Care Team Providers Name Role Phone [...] November 21, 2021 1: 46pm Living Situation [facility] November 21, 2021 12 :13pm Living Situation [...] Albuterol Active 1 INH INH FOUR TIMES [place] Sulfate DAILY 2021 12:00am Lisinopril Active 2.5 [...] Range Comment Site Add-On Test November Added [facility] Request 2021 test 235 [facility] 3:59pm [place] A 23685 White Blood Count November 5.6 X10 4.5-11.0 [facility] 2021 3/uL 235 [facility] 8:20am [place] M A 77801 White Blood Count November 8.5 X10 4.5-11.0 [facility] 2021 3/uL 235 [facility] 9:50pm [place] M A 05243 Red Blood Count November 3.95 X10 4.00-5.50 [facility] 2021 6/uL 235 [facility] 8:20am [place] M A 97348 Red Blood Count November 4.46 X10 4.00-5.50 [facility] 2021 6/uL 235 [facility] 9:50pm [place] A 27755 Hemoglobin November 12.0 g/dl 12.0-17.0 [facility] [place] 2021 235 [facility] 8:20am [place] M A 11301 Hemoglobin November 13.8 g/dl 12.0-17.0 [facility] [place] 2021 235 [facility] 9:50pm [place] M A 94483 Hematocrit November 36.9 % 35.0-50.0 [facility] [place] 2021 235 [facility] 8:20am [place] M A 46549 Hematocrit November 41.4 % 35.0-50.0 [facility] [place] 2021 235 [facility] 9:50pm [place] M A 96816 Mean Corpuscular November 93.4 fl 80.0-100.0 [facility] Volume 2021 235 [facility] 8:20am [place] M A 59053 Mean Corpuscular November 92.8 fl 80.0-100.0 [facility] Volume [address] 9:50pm [place] M A 93956 Mean Corpuscular [place] 30.4 pg 27.0-34.0 [facility] Hemoglobin 2021 [address] [facility] [address] 8:20am [place] M A 04737 Mean Corpuscular [place] 30.9 pg 27.0-34.0 [facility] Hemoglobin [address] 9:50pm [place] A 86912 Mean Corpuscular [place] 32.5 g/dl 31.0-36.0 [facility] Hemoglobin [address] [facility] [address] Concent 8:20am [place] M A 89086 Mean Corpuscular November 33.3 g/dl 31.0-36.0 [facility] Hemoglobin [address] [facility] [facility] [address] [place] 9:50pm [place] M A 46048 Red Cell November 12.6 % 11.5-15.0 [facility] Distribution [address] Width 8:20am [place] M A 56607 Red Cell [place] 12.5 % 11.5-15.0 [facility] Distribution [address] Width 9:50pm [place] M A 32290 Platelet Count November 90 X10 150-400 [facility] 2021 3/uL [address] [facility] [address] 8:20am [place] M A 43938 Platelet Count November 103 X10 150-400 [facility] 2021 3/uL [address] [facility] [address] 9:50pm [place] M A 55626 Immature [place] 1.1 % [facility] Granulocyte % [address] (Auto) 8:20am [place] M A 63771 Immature November 1.5 % [facility] Granulocyte % [address] (Auto) 9:50pm [place] M A 24279 Neutrophils (%) November 62.7 % [facility] (Auto) 2021 [facility] 8:20am [place] M A 65918 Neutrophils (%) November 66.2 % [facility] (Auto) 2021 235 [facility] 9:50pm [place] M A 86603 Lymphocytes (%) November 18.8 % [facility] (Auto) 2021 [facility] 8:20am [place] M A 78271 Lymphocytes (%) November 18.0 % [facility] (Auto) 2021 [facility] 9:50pm [place] M A 82224 Monocytes (%) November 9.8 % [facility] (Auto) 2021 [facility] 8:20am [place] M A 33520 Monocytes (%) November 8.7 % [facility] (Auto) 2021 [facility] 9:50pm [place] M A 53440 Eosinophils (%) November 6.2 % [facility] (Auto) 2021 235 [facility] 8:20am [place] M A 17651 Eosinophils (%) November 4.2 % [facility] (Auto) 2021 [facility] 9:50pm [place] M A 71594 Basophils (%) November 1.4 % [facility] (Auto) 2021 [facility] 8:20am [place] M A 91349 Basophils (%) November 1.4 % [facility] (Auto) 2021 235 [facility] 9:50pm [place] M A 30754 Immature [place] 0.06 X10 0.00-0.09 [facility] Granulocyte # 2021 3/uL [address] (Auto) 8:20am [place] M A 82839 Immature [place] 0.13 X10 0.00-0.09 [facility] Granulocyte # 2021 3/uL [address] (Auto) 9:50pm [place] M A 61808 Neutrophils # November 3.5 X10 1.5-7.8 [facility] (Auto) 2021 3/uL 235 [facility] 8:20am Self[place] M A 74650 Neutrophils # [place] 5.6 X10 1.5-7.8 [facility] (Auto) 2021 3/uL [address] [facility] [address] 9:50pm [place] M A 66826 Lymphocytes # [place] 1.1 X10 1.0-4.8 [facility] (Auto) 2021 3/uL [address] [facility] [address] 8:20am [place] M A 95577 Lymphocytes # [place] 1.5 X10 1.0-4.8 [facility] (Auto) 2021 3/uL 235 [facility] 9:50pm [place] M A 95989 Monocytes # [place] 0.6 X10 0.0-0.8 [facility] (Auto) 2021 3/uL 235 [facility] 8:20am [place] M A 61693 Monocytes # [place] 0.7 X10 0.0-0.8 [facility] (Auto) 2021 3/uL 235 [facility] 9:50pm [place] M A 58511 Eosinophils # [place] 0.4 X10 0.0-0.5 [facility] (Auto) 2021 3/uL [address] [facility] [address] 8:20am [place] M A 70994 Eosinophils # [place] 0.4 X10 0.0-0.5 [facility] (Auto) 2021 3/uL 235 [facility] 9:50pm [place] M A 90020 Basophils # [place] 0.1 X10 0.0-0.2 [facility] (Auto) 2021 3/uL [address] [facility] [address] 8:20am [place] M A 48943 Basophils # [place] 0.1 X10 0.0-0.2 [facility] (Auto) 2021 3/uL 235 [facility] 9:50pm [place] M A 21340 Hemoglobin A1c November 6.6 4.3-5.9 [facility] 2021 235 [facility] 6:10am [place] M A 05122 Estimated Average November 143 mg/dl [facility] Glucose (eAG) [address] [facility] 6:10am [place] M A 70187 Nucleated Red [place] 0.0 /100 0.0-0.0 [facility] Blood Cells % 2021 WBC [address] [facility] [address] 8:20am [place] A 89469 Nucleated Red [place] 0.0 /100 0.0-0.0 [facility] Blood Cells % [address] [facility] 9:50pm [place] M A 48198 Prothrombin Time November 11.1 9.3-12.1 [facility] 2021 Seconds 235 [facility] 5:31am [place] M A 18459 Prothromb Time November 1.0 0.9-1.2 Reference Interval is for non-anticoagulated patients. [facility] 2021 Suggested I NR Therapeutic Range for Vitamin K antogonist therapy: 235 [facility] Ratio 5:31am LEVELS OF [place] M A 68455 THERAPY INDICATIONS TARGET INR RANGE Standard Dose Venous Thrombosis, 2.0 - 3.0 Atrial Fibrillation , Pulmonary Embolism. High Dose Valvular H eart Disease, 2.5 - 3.5 Mechanical Heart, Intracardiac Thromb osis. Urine Color November Yellow Yellow [facility] 2021 235 [facility] 10:06pm [place] M A 74248 Urine Clarity November Clear Clear [facility] 2021 235 [facility] 10:06pm [place] M A 26816 Urine pH November 5.5 5.0-8.0 [facility] 2021 235 [facility] 10:06pm [place] M A 59498 Urine Specific November 1.013 1.005-1.03 [facility] 2021 0 235 [facility] 10:06pm [place] M A 42138 Urine Blood November Negative Negative [facility] 2021 mg/dL 235 [facility] 10:06pm [place] M A 65295 Urine Protein November Negative Negative [facility] 2021 mg/dL 235 [facility] 10:06pm Romeo Perry A 09911 Urine Glucose November Negative Negative [facility] (UA) 2021 mg/dl 235 [facility] 10:06pm Romeo Perry A 71469 Urine Ketones November Negative Negative [facility] 2021 mg/dL 235 [facility] 10:06pm Romeo Perry A 13778 Urine Nitrate November Negative Negative [facility] 2021 235 [facility] 10:06pm Romeo Perry A 27485 Urine Bilirubin November Negative Negative [facility] 2021 mg/dL 235 [facility] 10:06pm Romeo Perry A 78895 Urine [place] 0.2 Normal [facility] Urobilinogen 2021 E.U./dL [facility] 10:06[facility] [place] A 04108 Urine Leukocyte November Negative Negative [facility] Esterase 2021 mg/dL 235 [facility] 10:06pm Romeo [place] 90909 Sodium Level November 141 137-146 [facility] 2021 mmol/L 235 [facility] 6:10am [place] A 49700 Sodium Level November 137 137-146 [facility] 2021 mmol/L 235 [facility] 9:50pm Romeo Perry A 10631 Potassium Level November 4.2 3.5-5.3 [facility] 2021 mmol/L 235 [facility] 6:10am Romeo Perry A 11465 Potassium Level November 4.7 3.5-5.3 Specimen [facility] 2021 mmol/L hemolyzed, 235 [facility] 9:50pm results [place] Orlando A 24235 affected Chloride Level November 102 98-107 [facility] 2021 mmol/L 235 [facility] 6:10am [place] M A 97952 Chloride Level November 99 mmol/L 98-107 [facility] 2021 235 [facility] 9:50pm Romeo Perry A 11195 Carbon Dioxide November 26 mmol/L 23-32 [facility] Level 2021 235 [facility] 6:10am [place] M A 91003 Carbon Dioxide November 27 mmol/L [facility] Level 2021 235 [facility] 9:50pm [place] M A 76719 Anion Gap November 13 mmol/L 08-15 [facility] 2021 235 [facility] 6:10am [place] M A 35759 Anion Gap November 11 mmol/L 08-15 [facility] 2021 235 [facility] 9:50pm [place] M A 59592 Blood Urea November 16 mg/dl 08-25 [facility] [place] Nitrogen 2021 235 [facility] 6:10am [place] M A 08869 Blood Urea November 22 mg/dl 08-25 [facility] [place] Nitrogen 2021 235 [facility] 9:50pm [place] M A 58091 Creatinine November 1.1 mg/dL 0.6-1.4 [facility] [place] 2021 235 [facility] 6:10am [place] M A 46871 Creatinine November 1.3 mg/dL 0.6-1.4 [facility] [place] 2021 235 [facility] 9:50pm [place] M A 85150 Estimated November 74.[address] [facility] Creatinine 2021 ml/min is calculated 235 [facility] Clearance 6:10am [place] [address] Gault Equation using ideal body weight. This result is dependent on an accurate patient height and weight which is obtained from patients medical record. Cockmicheletoft, D.W. and M.H. Gault. Prediction of creatinine clearance from serum creatinine. Nephron. 1976. 16(1):31-41. Estimated November 74.[address] [facility] Creatinine 2021 ml/min is calculated 235 [facility] Clearance 9:50pm [place] [address] Gault Equation using ideal body weight. This result is dependent on an accurate patient height and weight which is obtained from patients medical record. Cockmicheletoft, D.W. and M.H. Gault. Prediction of creatinine clearance from serum creatinine. Nephron. 1976. 16(1):31-41. Estimated GFR November 85 >60 [facility] ( 2021 235 [facility]) 6:10am [place] M A 99539 Estimated GFR November 69 >60 [facility] ( 2021 [facility]) 9:50pm [place] M A 31729 Estimated GFR November 73 >60 [facility] (Non- [address] [place] 6:10am [place] M A 70692 Estimated GFR November 60 >60 [facility] (Non- [address] [place] 9:50pm [place] M A 24032 BUN/Creatinine November 14.5 10.0-20.0 [facility] Ratio 2021 235 [facility] 6:10am [place] A 90942 BUN/Creatinine November 16.9 10.0-20.0 [facility] Ratio 2021 235 [facility] 9:50pm [place] M A 56966 Glucose Level November 106 mg/dL 70-100 [facility] 2021 [facility] 6:10am [place] M A 84453 Glucose Level November 226 mg/dL 70-100 [facility] 2021 235 [facility] 9:50pm [place] M A 77017 Calcium Level November 8.6 mg/dl 8.6-10.3 [facility] 2021 235 [facility] 6:10am [place] M A 15889 Calcium Level November 8.8 mg/dl 8.6-10.3 [facility] 2021 235 [facility] 9:50pm [place] M A 51300 Total Bilirubin November 0.3 mg/dl <1.1 [facility] 2021 235 [facility] 9:50pm [place] M A 90042 Aspartate Amino November 16 U/L - [facility] Transf (AST/SGOT) 2021 2 35 [facility] 9:50pm [place] M A 59901 Alanine November 18 U/L 14-63 [facility] Aminotransferase 2021 23 5 [facility] (ALT/SGPT) 9:50pm Romeo VILLALOBOS 96992 Troponin T High November 13 ng/L <13 Normal range: Females <9 ng/L [facility] Sensitivity 2021 Males <14 ng/L 2 35 [facility] 12:10am Romeo [place] 14541 Values greater than or equal to 52 [...] setting). Total Protein November 6.7 g/dL 6.4-8.3 [facility] 2021 235 [facility] 9:50pm Romeo [place] 90545 Albumin November 4.0 g/dl 4.0-5.0 [facility] 2021 235 [facility] 9:50pm [place] Deondre 33149 Albumin/Globulin November 1.5 1.0-2.6 Denise nolasoc [facility] Ratio 2021 235 [facility] 9:50pm Romeo [place] 44946 Alkaline November 93 U/L 40-129 [facility] Phosphatase 2021 235 [facility] 9:50pm Romeo [place] 76479 Lipase November 36 U/L 13-60 [facility] 2021 235 [facility] 9:50pm Romeo Deondre 17002 Prostate Specific November 0.63 <3.09 [facility] 2021 ng/ml 736 [facility] 12:10am [facility] 26410 Thyroid November 4.83 0.34-5.60 [facility] Stimulating 2021 uIU/mL [address] [facility] Hormone (TSH) 8:20am [facility] Bedside Glucose November 165 mg/dl 70-100 NOTE: Any discrepancy between finger stick glucose result [facility] 2021 and patient's clin ical presentation should be 235 [facility] 11:31am confirmed by the la boratory. [facility] [address] Microbiology Results Procedure Source Result Collection Result Result Performin g Date/Time Date/Time Comment Site SARS-CoV-2, Nares, Both November 23, Goo d [facility] Influenza & Left & 2021 1:56pm [facility] Right [facility] [address]03 Diagnostic Imaging Reports Report Dictated Date/Time Dictated By Status Radiology Report November 20, 2021 9:08am Deniz Silva MD comp leted [facility] [address] [place] [address] Patient Name: Joaquín Barrientos [facility] rd#: [id number] Address: [address] [place] [address] City/State/Zip: [place] [address]: Ethan Washington MD Insurance: [facility] /Age/Sex: 1960/61/M Self Pay Admit/Reg Date: 11/20/[address]: Haris Bradshaw DO [facility]/GSX[facility]-7 PCP: PcpMd MELANIE Johnson Date of Service: 11/20/21 Order (s): XR chest 2V CPT Code: 16258 Report Number: [id number] Reason for Exam: Chest Pain EXAM: [...] Silva MD 11/20/21 0913 TD/TT: 11/20/21 0908Tech: [facility] cc: TASHA; TIA; CRYSTAL Lee MD; Cathleen Washington MD; Vince Bradshaw DO Report Dictated Date/Time Dictated By Status Electrocardiogram November 20, 2021 Warren Rivas MD completed [facility] [address] [place] [address] Patient Name: [facility] rd#: [id number] Address: [address] [place] [address] 85 City/State/Zip: [place] [address]: Ethan Washington MD Insurance: [facility] /Age/Sex: 1960/61/M Self Pay Admit/Reg Date: 11/20/[address]: Haris Bradshaw DO [facility] PCP: Md MELANIE Lee Date of Service: 11/20/21 Order (s): EKG ED Electrocardiogram CPT Code: 07377 Report Number: [id number] Reason for Exam: Chest Pain SINUS RHYTHM RIGHT BUNDLE BRANCH BLOCK LEFT POSTERIOR FASCICULAR BLOCK Dictated By: Warren Rivas MD 11/20/21 Signed By: Warren Rivas MD 11/20/21 1442 TD/TT: 11/20/21 1441Tech: cc: TASHA; CRYSTAL Lee MD; Titus Bradshaw DO Report Dictated Date/Time Dictated By Status Radiology Report November 20, 2021 1:35pm Titus Martinez MD compl eted [facility] [address] [place] [address] Patient Name: [facility] rd#: [id number] Address: [address] [place] [address] City/State/Zip: [place] [address]: Ethan Washington MD Insurance: [facility] /Age/Sex: 1960/61/M Self Pay Admit/Reg Date: 11/20/[address]: Caio Washington MD; Michael Shannon [facility] Location: ED[facility]/GSXFR-7 PCP: PcpMd MELANIE Johnson Date of Service: 11/20/21 Order (s): CT abd pelvis wo/w contrast; CT cervical spine wo contrast CPT Code: 25195; 89381 Report Number: [id number] Reason for Exam: hx cervical fracture in [...] to [employer] (A[employer]) [facility] Radiology Data Registry (NRDR) and MIPS [...] Martinez MD 11/20/21 1452 TD/TT: 11/20/21 1335Tech: [id number] cc: TIA; DEANNE; SOREN* Md Jesus MD; Cathleen Washington MD; Ceferino Shannon, PAC Report Dictated Date/Time Dictated By Status Radiology Report November 21, 2021 4:29pm Fer Lopez MD [address] [id number] Patient Name: Joaquín Barrientos rd#: [id number] Address: [address] [place] [address] City/State/Zip: [place] [address]: Ethan Washington MD Insurance: [facility] /Age/Sex: 1960/61/M Self Pay Admit/Reg Date: 11/21/[address]: Caio Washington MD Location: [address] PCP: Md MELANIE Lee Date of Service: 11/21/21 Order (s): US bladder CPT Code: 88654 Report Number: [id number] Reason for Exam: possible tumor per [...] 22, 2021 5:27pm [place] [address] Patient Name: Joaquín Barrientos [facility] rd#: [id number] Address: [address] [place] [address] City/State/Zip: [place] [address]: Ethan Washington MD Insurance: [facility] /Age/Sex: 1960/61/M Self Pay Admit/Reg Date: 11/21/[address]: Caio Washington MD Location: 3A.GS/HC617-H PCP: Md MELANIE Lee Date of Service: 11/22/21 Order (s): NM bone scan whole body CPT Code: 85886 Report Number: [id number] Reason for Exam: c2 fracture THREE [...] By: Eduar Monzon MD 11/22/211736 TD/TT: 11/22/211726Tech: [facility]: [facility]; PCPNO* Pcp-MD Renny; Cathleen Washington MD Report Dictated Date/Time Dictated By Status Electrocardiogram November 20, 2021 1:40am Jagjit Blum MD [place] [address] [place] [address] Patient Name: Joaquín Barrientos [facility] rd#: [id number] Address: [address] [place] [address] City/State/Zip: [place] [address]: Ethan Washington MD Insurance: [facility] /Age/Sex: 1960/61/M Self Pay Admit/Reg Date: 11/21/[address]: Olga/ R Olga Correa [facility] PCP: PcpMd MELANIE Johnson Date of Service: 11/20/21 Order (s): EKG ED Electrocardiogram CPT Code: 59059 Report Number: [id number] Reason for Exam: CP Sinus rhythm [...] November 21, 2021 6:26pm Jagjit Blum MD [address] [address] Patient Name: Joaquín Barrientos [facility] rd#: [id number] Address: [address] [place] [address] 85 City/State/Zip: [place] [address]: Ethan Washington MD Insurance: [facility] /Age/Sex: 1960/61/M Self Pay Admit/Reg Date: 11/21/[address]: Caio Washington MD [id number] PCP: Md MELANIE Lee Date of Service: 11/21/21 Order (s): EKG Electrocardiogram CPT Code: 88204 Report Number: [id number] Reason for Exam: CP Sinus rhythm [...] 23, 2021 10:26am Saulo Mcnulty MD completed [facility] [address] [place] [address] Patient Name: Joaquín Barrientos [facility] rd#: [id number] Address: [address] [place] [address] 85 City/State/Zip: [place] [address]: Ethan Washington MD Insurance: [facility] /Age/Sex: 1960/61[birth year]M Self Pay Admit/Reg Date: 11/21/[address]: Caio Washington MD Location: [address] PCP: Md MELANIE Lee Date of Service: 11/23/21 Order (s): CT head/brain wo contrast CPT Code: 18912 Report Number: [id number] Reason for Exam: followup parietal lesio [...] MD 11/24/21 0 558 TD/TT: 11/23/21 1026Tech: [id number] cc: HRSSPETE; PCPNO* Pcp-MD Renny; Cathleen Washington [...] 34pm Insurance Providers Guarantor Joaquín Barrientos Address [address] [address] Contact Info. Home Phone: Payer Policy Id Coverage Id Subscriber's Subscriber Effective Expi ration Name Id Date Date [facility] [id number] Joaquín Floyd [id number] [facility] Medicare A&B [id number] Joaquín Barrientos [id number] Self Pay Self N/A Encounters Encounter Location(s) Arrival/Admit Date Discharge/Depart Date Provider(s) Discharged [facility] [facility] November 21, 2021 November 23, 2021 Zamora , Inpatient Medical 9:59am 4:58pm Center-3A Departed [facility] November 28, 2021 November 29, 2021 [...] , Md MD TERESSA RUIZ Work Phone: [address] [place] [address] S [facility] [address] [place], [place] [address] Wally Bertha Work Phone: [facility] Urology MD Diana [address], [address] [facility] [address] Future Procedures Procedure Name Scheduled Date Hospital [...]
--- OUTSIDE RECORDS SUMMARY | 2022-04-07 13:30 | XMS_ITS | Continuity of Care Document ---
:1960 Author Organization [facility] Address [address] [place] [address] Phone Support Name Relationship Address Phone Megha Aguayo Sister [address] [facility] [phone] [place] [address] Pcp-Renny, Primary Care Provider Unavailable Alissa Mckenna Emergency Provider [address] [facility] [place] [address] Gurjit Solomon Admit Provider [address] [facility] [place] [address] Allergies, Adverse Reactions, Alerts Allergen Type Severity [...] 29, [facility], [address] [facility] Request 2019 7:50am [place] [address] White Blood Count June 29, 8.7 X10 4.5-11.0 [facility], [address] [place] [address] 2019 2:06am 3/uL [place] [address] Red Blood Count June 29, 4.78 X10 4.00-5.50 [facility] . [facility], [address] [place] [address] 2019 2:06am 6/uL [place] A [address] Hemoglobin June 29, 12.5 12.0-17.0 [facility], [address] [place] [address] 2019 2:06am g/dl [place] A [address] Hematocrit June 29, 40.1 % 35.0-50.0 [facility], [address] [place] [address] 2019 2:06am [facility] A 06061 Mean Corpuscular June 29, 83.9 fl 80.0-100.0 [facility], [address] [place] [address] Volume 2019 2:06am [facility] A 21131 Mean Corpuscular June 29, 26.2 pg 27.0-34.0 [facility], [address] [place] [address] Hemoglobin 2020 2:06am [facility] 79057 Mean Corpuscular June 29, 31.2 31.0-36.0 [facility], [address] [place] [address] Hemoglobin Concent 2019 2:06am g/dl [facility] 46283 Red Cell June 29, 13.8 % 11.5-15.0 [facility], [address] [place] [address] Distribution Width 2019 2:06am [facility] 41005 Platelet Count June 29, 127 X10 150-400 [facility], [address] [place] [address] 2019 2:06am 3/uL [facility] A 78386 Immature June 29, 1.3 % [facility], [address] [place] [address] Granulocyte % 2019 2:06[place] [address] (Auto) Neutrophils (%) June 29, 61.7 % [facility], [address] [place] [address] (Auto) 2019 2:06am [facility] A 92351 Lymphocytes (%) June 29, 20.1 % [facility], [address] [place] [address] (Auto) 2019 2:06am [facility] A 39967 Monocytes (%) June 29, 9.0 % [facility], [address] [place] [address] (Auto) 2019 2:06am [facility] A 21509 Eosinophils (%) June 29, 6.4 % [facility], [address] [place] [address] (Auto) 2019 2:06am [place] M A [address]803 Basophils (%) June 29, 1.5 % [facility], [address] [place] [address] (Auto) 2019 2:06am [place] M A [address]56 Immature June 29, 0.11 X10 0.00-0.09 [facility], [address] [place] [address] Granulocyte # 2019 2:06am 3/uL [place] (Auto) Neutrophils # June 29, 5.4 X10 1.5-7.8 [facility], [address] [place] [address] (Auto) 2019 2:06am 3/uL [place] A [address] Lymphocytes # June 29, 1.8 X10 1.0-4.8 [facility], [address] [place] [address] (Auto) 2019 2:06am 3/uL [place] A [address] Monocytes # (Auto) June 29, 0.8 X10 0.0-0.8 [facility], [address] [place] [address] 2019 2:06am 3/uL [place] A [address]39 Eosinophils # June 29, 0.6 X10 0.0-0.5 [facility], [address] [place] [address] (Auto) 2019 2:06am 3/uL [place] A [address] Basophils # (Auto) June 29, 0.1 X10 0.0-0.2 [facility], [address] [place] [address] 2019 2:06am 3/uL [place] A [address] Hemoglobin A1c June 29, 6.5 4.3-5.9 [facility], [address] [place] [address] 2019 2:06am [place] A [address]170 Estimated Average June 29, 140 [facility], [address] [place] [address] Glucose (eAG) 2019 2:06am mg/dl [place] Nucleated Red June 29, 0.0 /100 0.0-0.0 [facility], [address] [place] [address] Blood Cells % 2019 2:06am WBC [place] Sodium Level June 29, 136 137-146 [facility], [address] [facility] 2020 2:06am mmol/L [facility] A 46836 Potassium Level June 29, 4.4 3.5-5.3 [facility], [address] [facility] 2020 2:06am mmol/L [facility] A 78834 Chloride Level June 29, 99 98-107 [facility], [address] [facility] 2020 2:06am mmol/L [facility] A 39402 Carbon Dioxide June 29, 23 23-32 [facility], [address] [facility] Level 2020 2:06am mmol/L [facility] A 31502 Anion Gap June 29, 14 5-15 [facility], [address] [facility] 2020 2:06am mmol/L [facility] A 46323 Blood Urea June 29, 22 mg/dl 5-25 [facility], [address] [facility] Nitrogen 2019 2:06am [facility] A 13414 Creatinine June 29, 1.3 0.6-1.4 [facility], [address] [place] [address] 2020 2:06am mg/dL [facility] A 88516 Estimated June 29, 74.6 This value [facility], [address] [place] [address] Creatinine 2020 2:06am ml/min is [facility] 44518 Clearance calculated by Cockcroft Gault Equation using ideal body weight. This result is dependent on an accurate patient height and weight which is obtained from patients medical record. Nashcroft, D.W. and M.H. Gault. Prediction of creatinine clearance from serum creatinine. Nephron. 1976. 16(1):31-41 . Estimated GFR June 29, > 60 >60 [facility], [address] [facility] () 2020 2:06am [place] [address] Estimated GFR June 29, > 60 >60 [facility], [address] [place] [address] (Non- 2020 2:06[place] [address] [place] BUN/Creatinine June 29, 16.9 10.0-20.0 [facility], [address] [facility] Ratio 2019 2:06am [place] A 11783 Glucose Level June 29, 172 70-100 [facility], [address] [place] [address] 2019 2:06am mg/dL Kory [place] [address] Calcium Level June 29, 8.4 8.6-10.3 [facility], [address] [place] [address] 2019 2:06am mg/dl [place] 41869 Phosphorus Level June 29, 4.1 2.5-4.5 S [facility], [address] [place] [address] 2019 2:06am mg/dL [place] 56950 Magnesium Level June 29, 1.8 1.8-2.5 [facility], [address] [place] [address] 2019 2:06am mg/dL K[place] 89798 Total Bilirubin June 29, 0.3 <1.2 [facility], [address] [place] [address] 2019 2:06am mg/dl K[place] 40263 Direct Bilirubin June 29, < 0.2 <0.5 [facility], [address] [place] [address] 2019 2:06am mg/dl K[place] 50947 Aspartate Amino June 29, 16 U/L 15-41 [facility], [address] [place] [address] Transf (AST/SGOT) 2019 2:06am Kory VILLALOBOS [address]98[address] Alanine June 29, 14 U/L 14-63 [facility], [address] [place] [address] Aminotransferase 2019 2:06[place] [address] (ALT/SGPT) Creatine Kinase MB June 29, 2.0 0.0-6.0 [facility], [address] [place] [address] 2019 9:50am ng/ml K[place] 49405 Troponin T June 29, < 0.01 [facility], [address] [place] [address] 2019 9:50am ng/ml [place] 01541 Total Protein June 29, 7.0 g/dL 6.4-8.3 [facility], [address] [place] [address] 2019 2:06am Kory [place] 58088 Albumin June 29, 4.1 g/dl 4.0-5.0 [facility], [address] [place] [address] 2019 2:06am [facility] A 85595 Albumin/Globulin June 29, 1.4 1.0-2.6 [facility], [address] [place] [address] Ratio 2019 2:06am [facility] A 84081 Triglycerides June 29, 134 <150 <=150 mg/dL [facility], [address] [place] [address] Level 2019 2:06am mg/dL = Desirable [facility] 55182 Cholesterol Level June 29, 177 <200 <200 mg/dL [facility], [address] [place] [address] 2019 2:06am mg/dl = Desirable [facility] 04636 LDL Cholesterol, June 29, 99 mg/dl <130 [facility], [address] [place] [address] Calculated 2019 2:06am [facility] 24513 HDL Cholesterol June 29, 51 mg/dL >40 < 40 mg/dl: [facility], [address] [place] [address] 2019 2:06am Low [facility] A 81993 HDL-cholest enmanuel(major risk factor for CHD)>/= 60 mg/dl: High HDL-cholest enmanuel(negati ve risk factor for CHD)HDL-cho lesterol is affected by a number of factors, e.g., smoking, excercise, hormones, sex and age. Cholesterol Ratio June 29, 1.9 LDL/HDL [facility], [address] [place] [address] (LDL/HDL) 2019 2:06am Interpretat [facility] [address]9314 ion:Ratio Men Women1/2 Average 1.00 1.47Average 3.55 3.222X Average 6.25 5.033X Average 7.99 6.14 Cholesterol/HDL June 29, 3.5 Cholesterol [facility], [address] [place] [address] Ratio 2019 2:06am /HDL [facility] A 48099 Interpretat ion: Ratio Men Women 1/2 Average 3.43 3.27 Average 4.97 4.44 2X Average 9.55 7.05 3X Average 23.39 11.04 Alkaline June 29, 81 U/L 40-129 [facility], [address] [place] [address] Phosphatase 2019 2:06am [facility] 88442 Diagnostic Imaging Reports Report Dictated Date/Time Dictated By Status Communication Report April 21, 2018 1:32pm Service Allscript s completed [address] [address] CDI Assessment Signed Patient: WASHINGTON SARABIA Medical Record#: [id number] : 1960 Acct:[id number] Age/Sex: 58 / M Admit/Reg Date: 04/20/18 Loc: 3NE. Room: [place] [address] Report Number : [id number]: Sharmin Amanda MD PT : WASHINGTON SARABIA : 1960 ACCT: [id number] ADMIT DATE: 04-20-2018 Dictated By: Maya Su Signed By: Maay Su 04/21/18 1 332 DD/ 1332 TD/TT: 04/21/18 133 Parts Remover: Maria Elena Peterson cc: * Case Management Initial April 21, 2018 2:23pm Service Allscr ipts completed Assessment [address] [address] Initial Discharge Planning Signed Patient: WASHINGTON SARABIA Medical Record#: [id number] : 1960 Acct:[id number] Age/Sex: 58 / M Admit/Reg Date: 04/20/18 Loc: 3NE. Room: [place] [address] Report Number : [id number]: Sharmin Amanda MD Patient Name: WASHINGTON SARABIA MRN: [id number] Acct Number: [id number] : 1960 Age: 58 Admission Information Patient Type: INPATIENT Admit Date: 04/20/2018 Admit Time: 20:1 5 Admit Reason: CHEST PAIN Unit: 3NE. Bed: [place] [address] Discharge Disposition: Xfer to [facility] 7.Initial Discharge Planning Assessment Created by : Ana alas Date/Time 2018-04-21 14:21:09.000 Initial Discharge Planning Assessment Interviewed:: Patient Prior Functional Status: Independent Have you ever served in the [employer]?: No Living Situation / Support System: Home less Anticipated Discharge Discussed With: P atient Anticipated Discharge Plan: Psych Facil ity (Inpatient) Note: Patient sleeping at time of CM vi sit, answering CM questions minimally. Patient was on an inpatient Psychiatry floor before being transferred to medicine. Patient's PCP is at [facility]. Per EMR, patient is homeless and patient's Megha peña ([phone]) is listed as patient's contact. Patient will like ly be discharged back to inpatient psych when medically cleared. Will cont inue to follow. Electronically signed by: Ana castillo Electronically signed on: 2018-04-21 Dictated By: Maya Su Signed By: Maya Su 04/21/18 1 423 DD/DT: TD/TT: Parts Remover: [id number] cc: * Radiology Report April 21, 2018 3:56pm Grant Bashir MD [address] [address] Patient Name: WASHINGTON SARABIA [address]#: [id number] Address: [address] [place] [address] Account#: [id number] City/State/Zip: [place], [place] [address] : Sharmin Amanda MD [facility] /Age/Sex: 1960/58/M Self Pay Admit/Reg Date: 04/20/[address]: Gume Mckeon MD [facility][id number] PCP: Md Jesus Date of Service: 04/20/18 Order (s): XR chest 2V CPT Code: 18372 Report Number: [id number] Reason for Exam: chest pain CHEST (2 views) (92396) History: chest pain Findings: The heart size is within normal limits with a tortuous aorta. The lungs are clear. There is no confluent infiltrate or effusion. There is multilead cardiac pacemaker. IMPRESSION: No acute process seen. No ED interpretation available. Dictated By: Grant Bashir MD 1555 Signed By: Grant Sanchez MD 7 TD/TT: 04/21/18 1556Tech: [id number] cc: Germania Mckeon MD; Md Jesus ; Kylah Amanda MD* Radiology Report June 30, 2019 12:41pm [place] [address] Patient Name: Washington Sarabia [facility] rd#: [id number] Address: [address] [place] [address] Account#: [id number] City/State/Zip: [place] [address]: Gurjit Solomon MD Insurance: [facility] /Age/Sex: 1960/59/M Self Pay Admit/Reg Date: 06/30/[address]: Kylah Limon MD Location: S6W./[id number] PCP: Md Jesus Date of Service: 06/30/19 Order (s): XR chest 1V portable CPT Code: 75733 Report Number: [id number] Reason for Exam: Chest Pain CLINICAL [...] June 30, 2019 12:53pm Service Allscript s [address] Assessment Note Signed Patient: Washington Sarabia Medical Record#: [id number] : 1960 Acct:[id number] Age/Sex: 59 / M Admit/Reg Date: 06/30/19 Loc: [facility]. Room: [address] Report Number : [id number]: Gurjit Solomon MD Patient Name: Washington Sarabia MRN: [id number] Acct Number: [id number] : 1960 Age: 59 Admission Information Patient Type: INPATIENT OBSERVATION Admit Date: 06/30/2019 Admit Time: 05:5 9 Admit Reason: CHEST PAIN R/O CO,PACEMAK ER FIRED X3 Unit: [address] Bed: [address] Discharge Disposition: Home, Self-Care 3. Case Management Note Created by : Celio Redman Date/Time 06-29 12:52:07.000 Note: reports Pt is medically stable to discharge back to [facility]: [facility], [place], [place] today. [facility] requested a copy [...] Maya Su 06/30/19 1 253 DD/DT: TD/TT: Parts Remover: [id number] cc: * Advance Directives Advance Directive Response Recorded Date/Time Pt has Medical Orders for Life Sustaining Tx No April 21, 2018 12:53am Form (MOLST)? Advance Directives No June 30, 2019 10: 38am Health Care Proxy Yes June 30, 2019 10: 38am Chief Complaint and Reason for Visit Chief Complaint CHEST PAIN R/O CO,PACEMAKER FIRED X3 Reason for Visit Chest pain, rule out acute m yocardial infarction Mood disorder Pacemaker complications Encounters Encounter Location(s) Arrival/Admit Date Discharge/Depart Date Provider(s) Discharged [facility] April 21, 2018 April 21, 2018 [facility]-3 1:03am 2:35pm MD Kell Discharged [facility] June 30, 2019 June 30, 2019 Cristina monete A Inpatient Medical 5:59am 3:57pm MD Juanito [address] Recent Diagnosis Onset Date Chest pain, [...] You will be discharged back to your [facility] ite. No changes were made to your medication regimen. You were also evaluated by psychiatry an d they do not believe you have any active suicidal ideation. They recommended that you be discharged back to the respite. Please continue taking all your medicati ons as before. You prefer to follow up with cardiology at [facility]. Please call [phone] or [phone] to make an appointment with cardiology at [facility], Dr. Kali Richardson or Dr. Mack Candelaria. [...] Insurance Providers Guarantor Washington Sarabia Address [address] [place] [address] Contact Info. Home Phone: Payer Policy Id Coverage Id Subscriber's Subscriber Effective Expi ration Name Id Date Date [facility] [id number] WASHINGTON SARABIA [id number] Care [place] Self Pay Self N/A Plan of Treatment [...]
[2022-04-07 14:29] LABS: MANUAL DIFF FLAG NO
[2022-04-07 14:37] LABS: Basophils Absolute Auto 0.1 X10*3/uL (0.0-0.2); Basophils Percent Auto 0.9 % (0-2); Eosinophils Absolute Auto 0.1 X10*3/uL (0.0-0.4); Eosinophils Percent Auto 1.7 % (0-4); Hematocrit 37.4 % (42.0-52.0); Hemoglobin 12.7 g/dl (14.0-18.0); Imm Gran Abs Auto 0.06 X10*3/uL (0.00-0.03); Imm Gran Pct Auto 0.9 % (0.0-0.4); Lymphocytes Absolute Auto 0.9 X10*3/uL (1.2-4.9); Lymphocytes Percent Auto 13.9 % (20-40); Mean Corpuscular Hemoglobin 29.7 pg (27.0-33.0); Mean Corpuscular Volume 87.6 fL (80.0-98.0); Mean Platelet Volume 11.2 fL (9.4-12.4); Monocytes Absolute Auto 0.6 X10*3/uL (0.1-1.2); Monocytes Percent Auto 8.8 % (2-11); Neutrophils Absolute Auto 4.8 x10*3/uL (2.0-8.3); Neutrophils Percent Auto 73.8 % (45-73); Platelet Count 89 X10*3/uL (160-400); Red Blood Count 4.27 X10*6/uL (4.60-5.80); Red Cell Distribution Width 12.7 % (11.0-16.0); White Blood Count 6.6 X10*3/uL (4.8-10.8)
[2022-04-07 14:53] LABS: Anion Gap 12 (12-20); Blood Urea Nitrogen 14 mg/dL (9-16); Carbon Dioxide 24 mmol/L (22-29); Chloride 108 mmol/L (96-108); Creatinine Clr Calc Pharmacy 80.9; Estimated Glomerular Filt Rate > 60; Glucose Random 140 mg/dL (60-115); Potassium 3.5 mmol/L (3.3-5.1); Sodium 140 mmol/L (135-145)
[2022-04-07 15:02] LABS: Troponin-I High Sensitivity < 3.5 ng/L (<3.5-35.0)
--- NOTE | 2022-04-07 18:37 | ECG_ITS ---
Test Reason : CHEST PAIN Blood Pressure : / mmHG Vent. Rate : 077 BPM Atrial Rate : 077 BPM P-R Int : 178 ms QRS Dur : 182 ms QT Int : 474 ms P-R-T Axes : 118 072 129 degrees QTc Int : 536 ms Sinus rhythm with occasional Premature ventricular complexes Right bundle branch block Abnormal ECG When compared with ECG of 07-APR-2022 13:16, Premature ventricular complexes are now Present Referred By: Mahi Noland Electronically Signed By:PEPE CABALLERO
[2022-04-07] MEDS: ondansetron HCL 4 MG/2 ML VIAL IVPUSH (18:50)
[2022-04-07] MEDS: Aspirin 81 MG TAB.CHEW 243 MG PO (18:50)
[2022-04-07] MEDS: Morphine Sulfate 2 MG/ML CARTRIDGE IVPUSH (18:51)
[2022-04-07 19:14] LABS: Troponin-I High Sensitivity < 3.5 ng/L (<3.5-35.0)
[2022-04-07] MEDS: iohexoL 350 MG/ML 100 ML INFUS..BTL IV (19:18)
[2022-04-07 19:30] LABS: Influenza A PCR NEGATIVE (Negative); Influenza B PCR NEGATIVE (Negative); Resp Syncy Virus RNA Qual PCR NEGATIVE (Negative); SARS COV2 PCR INHOUSE NEGATIVE (Negative)
[2022-04-07 19:55] VITALS: BP 117/79; PULSE 72; RESP 12; O2SAT 96
[2022-04-07 21:07] VITALS: BP 128/76; PULSE 72; RESP 18; O2SAT 98
--- NOTE | 2022-04-07 21:47 | PC.NURSE ---
pt ambulatory at time of discharge. iv removed at time of discharge. pt discharged to waiting room to await for ride. pt given discharge packet. pt verbalized understanding of discharege plan
== END 2022-04-07 21:50 | disposition home or self-care (01) ==
PROVIDERS: Nurse Practitioner Family; Emergency Provider Emergency Medicine; PCP Internal Medicine
DX: R07.89 Other chest pain (principal); Z20.822 Contact with and (suspected) exposure to COVID-19; Z79.899 Other long term (current) drug therapy
CPT/HCPCS: 0241U; 36415; 71275; 80048; 84484; 85025; 93005; 96374; 96375; 99284; J2270; J2405; Q9967

== ENCOUNTER 2022-04-20 15:28 | Emergency (ER) | payer OTHER, SELFPAY ==
[2022-04-20] VITALS (10 sets, daily range): BP systolic 104–122; BP diastolic 50–75; PULSE 79–96; RESP 11–18; TEMP 36.3–37.2; O2SAT 95–99; BMI 34.0
--- NOTE | 2022-04-20 | ECG_ITS ---
Test Reason : CHEST PAIN Blood Pressure : / mmHG Vent. Rate : 093 BPM Atrial Rate : 093 BPM P-R Int : 206 ms QRS Dur : 174 ms QT Int : 410 ms P-R-T Axes : 069 110 057 degrees QTc Int : 509 ms Normal sinus rhythm Right bundle branch block Left posterior fascicular block Bifascicular block Abnormal ECG When compared with ECG of 07-APR-2022 18:51, Premature ventricular complexes are no longer Present Left posterior fascicular block is now Present Referred By: Generic ED Physician Electronically Signed By:PATO ROMAN MD
--- NOTE | ~2022-04-20 | CT_ITS ---
EXAMINATION: CT ANGIOGRAM OF THE CHEST WITH AND WITHOUT CONTRAST (CT PULMONARY ANGIOGRAM FOR PE) CLINICAL INFORMATION: Reason for Exam chest pain, elevated d dimer COMPARISON: None TECHNIQUE: Prior to contrast administration, noncontrast localization images were obtained. Subsequently, multidetector volumetric imaging was performed from the thoracic inlet to below the diaphragms following the administration of 80 mL Omnipaque 350 intravenous contrast. No contrast reaction reported Sagittal, coronal, and MIP oblique sagittal reformatted images were obtained on the CT workstation, uploaded to PACS, and reviewed. This CT examination was performed using dose optimization techniques as appropriate, variously including the following: *Automated exposure control *Adjustment of mA and/or kV according to patient size (this includes techniques or standardized protocols for targeted exams where dose is matched to indication/reason for exam; i.e. extremities or head) *Use of iterative reconstruction technique Total exam dose-length product 437 mGy-cm FINDINGS: QUALITY OF STUDY/CONTRAST BOLUS: Satisfactory. PULMONARY ARTERIES: No central or segmental pulmonary emboli. THORACIC AORTA: No aneurysm or dissection. LUNG: The lungs are well-expanded and clear of acute process. No pulmonary nodule, mass or consolidation seen. PLEURA: There is no pleural effusion, thickening or calcification. No pneumothorax. . MEDIASTINUM: There are pacemaker electrodes overlying left chest with electrodes in right atrium and right ventricle. Heart size is normal. There is no pericardial effusion. No hilar or mediastinal lymphadenopathy. No evidence of septal bowing or right heart strain. The right pulmonary artery is normal caliber. The left pulmonary artery is narrowed in its proximal segment. No intraluminal filling defects seen to suspect any filling defect or PE. The right pulmonary artery measures 2.6 cm and the left ovary artery proximal to the narrowing measures 2.5 cm. CORONARY ARTERY CALCIFICATION: None visualized on this study. CHEST WALL/AXILLA: No axillary or internal mammary lymphadenopathy. OSSEOUS STRUCTURES: No aggressive lytic or sclerotic process seen. There is calcification of anterior longitudinal ligament. UPPER ABDOMEN: Visualized liver, spleen, pancreas and bilateral adrenal glands are unremarkable. No reflux of contrast into the hepatic veins to suggest elevated right heart pressures. CT/CT angio chest PE protocol IMPRESSION: 1. No evidence of PE. Mild narrowing of left proximal pulmonary artery after its takeoff. 2. No evidence of aortic dissection or aneurysm. 3. The lungs are clear. VTE: negative
--- NOTE | ~2022-04-20 | XR_ITS ---
EXAMINATION: XR CHEST CLINICAL INFORMATION: Chest pain COMPARISON: None TECHNIQUE: 2 views of the chest were obtained. FINDINGS: Lungs are well-expanded and clear. Heart size and pulmonary vascularity is normal. There are pacer electrodes in right atrium and right ventricle. No gross bony abnormality seen. XR/XR chest 2V IMPRESSION: Unremarkable chest exam.
--- NOTE | 2022-04-20 15:45 | ED_ITS ---
HPI - Chest Pain General Chief Complaint: Chest Pain <HEAVENLY Montelongo Last Filed: 04/20/22 18:10> Stated Complaint: Chest pain, pressure L arm/back, has pacer per EMS <HEAVENLY Montelongo Last Filed: 04/20/22 18:10> Time Seen by Provider: 04/20/22 15:45 <HEAVENLY Montelongo Last Filed: 04/20/22 18:10> Source: patient and EMS <HEAVENLY Montelongo Last Filed: 04/20/22 18:10> Mode of arrival: EMS <HEAVENLY Montelongo Last Filed: 04/20/22 18:10> Limitations: no limitations <HEAVENLY Montelongo Last Filed: 04/20/22 18:10> History of Present Illness HPI narrative: Patient is a 62 year old assigned male at with a history of tetralogy of fallot reapir, cardiac pacemaker, and a developmental delay, presenting to the emergency department today with chest pain. Patient states that he was having intermittent chest pain for a few days but today he had a tooth removed and the chest pain became a sharp pressure that hasn't gotten better. Patient states that he was pre-treated with amoxicillin due to his cardiac history. Patient denies any dizziness, lightheadedness, abdominal pain, nausea, vomiting, fever, chills, blurry vision, double vision, loss of vision, difficulty breathing, shortness of breath, back pain, night sweats, pain with urination, increased urinary frequency, increased urinary urgency, blood in his urine or stool, syncope or a near syncopal episode, recent trauma or falls, bowel incontinence, bladder incontinence, bowel retention, bladder retention, or any other complaints at this time. <HEAVENLY Montelongo Last Filed: 04/20/22 18:10> MD complaint: chest pain <HEAVENLY Montelongo Last Filed: 04/20/22 18:10> Severity: mild <HEAVENLY Montelongo Last Filed: 04/20/22 18:10> Quality: sharp <HEAVENLY Montelongo Last Filed: 04/20/22 18:10> Relieving factors: nothing <HEAVENLY Montelongo Last Filed: 04/20/22 18:10> Exacerbating factors: nothing <HEAVENLY Montelongo - Last Filed: 04/20/22 18:10> Treatment prior to arrival: aspirin (via EMS) and nitroglycerin (via EMS) <HEAVENLY Montelongo - Last Filed: 04/20/22 18:10> Related Data Home Medications: Previous Rx's Medication Instructions Recorded acetaminophen 325 mg tablet 650 mg PO Q6H PRN Headache/Pain 09/22/21 Mild Scale (1-3) #0 tabs aspirin 81 mg tablet,delayed 81 mg PO DAILY #0 tabs 09/22/21 release hydroxyzine HCl 25 mg tablet 25 mg PO BEDTIME PRN Anxiety #0 09/22/21 tabs isosorbide mononitrate 30 mg 30 mg PO DAILY #0 tabs 09/22/21 tablet,extended release 24 hr levothyroxine 75 mcg tablet 75 mcg PO DAILY@0630 #0 tabs 09/22/21 lisinopril 2.5 mg tablet 2.5 mg PO DAILY #0 tabs 09/22/21 naproxen 500 mg tablet 500 mg PO BID PRN Pain, Moderate 09/22/21 (Pain Scale 4-6 #0 tabs paroxetine HCl 10 mg tablet 10 mg PO DAILY #0 tabs 09/22/21 albuterol sulfate 90 mcg/actuation 2 puff inhalation RQ4H PRN 09/28/21 aerosol inhaler Shortness Of Breath 30 days #1 inhaler gabapentin 300 mg capsule 300 mg PO BID #0 caps 09/28/21 gabapentin 300 mg capsule 300 mg PO BID 30 days #60 caps 09/28/21 gabapentin 300 mg capsule 300 mg PO DAILY PRN anxiety #0 caps 09/28/21 lidocaine 4 % topical patch 1 patch transdermal DAILY 30 days 09/28/21 (Lidocaine Pain Relief) #30 ea melatonin 3 mg tablet 6 mg PO BEDTIME #0 tabs 09/28/21 metformin 500 mg tablet 500 mg PO BIDWM 30 days #60 tabs 09/28/21 metoprolol succinate 100 mg 100 mg PO DAILY #0 tabs 09/28/21 tablet,extended release 24 hr olanzapine 2.5 mg tablet 2.5 mg PO DAILY #0 tabs 09/28/21 olanzapine 2.5 mg tablet 2.5 mg PO DAILY PRN anxiety 09/28/21 somatic preoccupation #0 tabs trazodone 100 mg tablet 100 mg PO BEDTIME #0 tabs 09/28/21 <HEAVENLY Montelongo Last Filed: 04/20/22 18:10> Allergies/Adverse Reactions: Allergies Allergy/AdvReac Type Severity Reaction Status Date / Time aripiprazole [From Abilify] Allergy Severe Rash Verified 04/07/22 13:32 peas Allergy Severe HIVES Verified 04/07/22 13:32 atorvastatin [From Lipitor] Allergy Intermediate Hives Verified 04/20/22 17:24 bee pollen [bee stings] AdvReac Severe Anaphylaxis Verified 04/07/22 13:32 <HEAVENLY Montelongo - Last Filed: 04/20/22 18:10> Review of Systems Constitutional: Constitutional: Reports no additional constitutional complaints, Denies chills, Denies fever(s) and Denies night sweats <HEAVENLY Montelongo Last Filed: 04/20/22 18:10> Eyes: Eyes: Reports no additional eye complaints, Denies blurry vision, Denies change in vision, Denies diplopia, Denies eye discharge, Denies loss of vision and Denies eye pain <HEAVENLY Montelongo Last Filed: 04/20/22 18:10> ENT: Denies dizziness <HEAVENLY Montelongo - Last Filed: 04/20/22 18:10> Cardiovascular: Cardiovascular: Reports no additional cardiovascular complaints, Reports chest pain, Denies lightheadedness, Denies Loss of Consciousness and Denies dyspnea <HEAVENLY Montelongo Last Filed: 04/20/22 18:10> Respiratory: Respiratory: Reports no additional respiratory complaints and Denies dyspnea <HEAVENLY Montelongo Last Filed: 04/20/22 18:10> Gastrointestinal: Gastrointestinal: Reports no additional gastrointestinal complaints, Denies abdominal pain, Denies melena, Denies hematochezia, Denies change in bowel habits and Denies change in stool character <HEAVENLY Montelongo Last Filed: 04/20/22 18:10> Genitourinary: Genitourinary: Reports no additional male genitourinary complaints, Denies hematuria, Denies oliguria, Denies difficulty urinating, Denies dysuria, Denies urinary frequency, Denies urinary hesitancy, Denies urinary incontinence and Denies urinary urgency <HEAVENLY Montelongo - Last Filed: 04/20/22 18:10> Musculoskeletal: Musculoskeletal: Reports no additional musculoskeletal complaints, Denies numbness and Denies tingling <HEAVENLY Montelongo - Last Filed: 04/20/22 18:10> Neurologic: Denies dizziness, Denies loss of vision, Denies numbness and Denies tingling <HEAVENLY Montelongo - Last Filed: 04/20/22 18:10> Psychiatric: Psychiatric: Reports no additional psychiatric complaints <HEAVENLY Montelongo - Last Filed: 04/20/22 18:10> Endocrine: Endocrine: Reports no additional endocrine complaints <HEAVENLY Montelongo - Last Filed: 04/20/22 18:10> Hematologic/Lymphatic: Hematologic/Lymphatic: Reports no additional hemat ologic/lymphatic complaints <HEAVENLY Montelongo - Last Filed: 04/20/22 18:10> Allergic/Immunologic: Allergic/Immunologic: Reports no additional allergic/immunologic complaints <HEAVENLY Montelongo - Last Filed: 04/20/22 18:10> [facility] Past Medical History Attestation statement: The following information was validated with the patient. <HEAVENLY Montelongo - Last Filed: 04/20/22 18:10> Source: old records reviewed and nursing notes reviewed <HEAVENLY Montelongo - Last Filed: 04/20/22 18:10> Medical History: Medical History Anxiety Artificial cardiac pacemaker Asthma Cardiac defibrillator in place COPD (chronic obstructive pulmonary disease) Depression Developmental delay, mild Diabetes GERD (gastroesophageal reflux disease) History of ETOH abuse Hyperlipidemia Hypertension Hyperthyroidism RBBB Seizure Sleep apnea <HEAVENLY Montelongo - Last Filed: 04/20/22 18:10> Surgical History: Surgical History History of cardiac cath <HEAVENLY Montelongo - Last Filed: 04/20/22 18:10> Social History Social History: Social History Household Members: Other Housing: Other Housing Other:: Sober House Do you presently have visiting nurse or other home services: No Alcohol intake: never Patient Tobacco Use Status: Former Tobacco user Quit Date: 30 years Tobacco use type: Cigarette Smoked in Last 30 Days: No Second Hand Smoke Exposure: No Use of substances other than those prescribed or required for medical reasons: No Substance Use Type: Former Substance User, Prescription Drugs and Caffiene Advance Directives: No Advance Directives Information Provided: Yes service: No Current occupational status: disabled Sexual orientation: Did not discuss. <HEAVENLY Montelongo - Last Filed: 04/20/22 18:10> Physical Exam Vital Signs: Vital Signs: Last Vital Signs Temp 98.9 F 04/20/22 21:15 Pulse 83 04/20/22 22:15 Resp 16 04/20/22 21:15 BP 110/63 04/20/22 22:15 Pulse Ox 99 04/20/22 21:15 O2 Del Method 04/20/22 21:15 BMI result Body Mass Index 34.0 <HEAVENLY Montelongo - Last Filed: 04/20/22 18:10> Vital Signs: Last Vital Signs Temp 98.9 F 04/20/22 21:15 Pulse 83 04/20/22 22:15 Resp 16 04/20/22 21:15 BP 110/63 04/20/22 22:15 Pulse Ox 99 04/20/22 21:15 O2 Del Method 04/20/22 21:15 BMI result Body Mass Index 34.0 <HEAVENLY Bernard - Last Filed: 04/20/22 22:22> Const: General: cooperative, no acute distress, alert and awake <HEAVENLY Montelongo - Last Filed: 04/20/22 18:10> Nutritional Appearance: well nourished <HEAVENLY Montelongo - Last Filed: 04/20/22 18:10> Orientation/consciousness: patient oriented x3 <HEAVENLY Montelongo - Last Filed: 04/20/22 18:10> Limitations: no limitations <HEAVENLY Montelongo - Last Filed: 04/20/22 18:10> HEENT: Head: Yes normal to inspection and Yes atraumatic <HEAVENLY Montelongo Last Filed: 04/20/22 18:10> Ears: hearing grossly normal bilaterally and external ears normal <HEAVENLY Montelongo - Last Filed: 04/20/22 18:10> General nose exam: Normal external nose present, no nasal discharge noted and no epistaxis <Mayerigoberto Baldwinwolfgang RI - Last Filed: 04/20/22 18:10> Face and sinus: Yes normal facial exam, No abrasion and No laceration <Maye Baldwinwolfgang RI - Last Filed: 04/20/22 18:10> Mouth: Normal oral and palatal mucosa present, no drooling and no muffled voice <Maye Dena RI - Last Filed: 04/20/22 18:10> Eyes: General: appearance normal, both eyes and all related structures <Maye Dena RI - Last Filed: 04/20/22 18:10> Periorbital: periorbital findings normal <Mayerigoberto Baldwinwolfgang RI - Last Filed: 04/20/22 18:10> Eyelids: Yes eyelids normal <Maye Dena RI - Last Filed: 04/20/22 18:10> Conjunctivae: conjunctivae normal <Maye Dena RI - Last Filed: 04/20/22 18:10> Pupils: Equal, round and reactive pupils present <Mayerigoberto Baldwinwolfgang RI - Last Filed: 04/20/22 18:10> EOM: EOMs intact bilaterally <Maye Dena RI - Last Filed: 04/20/22 18:10> Neck: Neck: Yes normal visual inspection, Yes full ROM and Yes no lymphadenopathy <Maye Fernandes RI - Last Filed: 04/20/22 18:10> Chest: Chest palpation & inspection: normal inspection of the chest <Maye Fernandes PA - Last Filed: 04/20/22 18:10> Resp: Effort & Inspection: normal respiratory effort and able to speak in complete sentences <HEAVENLY Montelongo - Last Filed: 04/20/22 18:10> Auscultation: clear to auscultation bilaterally <HEAVENLY Montelongo - Last Filed: 04/20/22 18:10> Cardio: Rate: regular rate <Maye Fernandes RI - Last Filed: 04/20/22 18:10> Rhythm: regular rhythm <Maye Fernandes RI - Last Filed: 04/20/22 18:10> GI: Inspection: Yes normal to inspection <Maye FernandesHEAVENLY - Last Filed: 04/20/22 18:10> Neuro: General: patient oriented x3 and moves all extremities <Maye FernandesHEAVENLY - Last Filed: 04/20/22 18:10> Cranial nerves: Yes Equal, round and reactive pupils present <Maye Fernandes PA - Last Filed: 04/20/22 18:10> Cognition (Neuro): normal cognition <Maye FernandesHEAVENLY - Last Filed: 04/20/22 18:10> Motor exam (neuro): 5/5 motor strength present throughout <Maye Fernandes RI - Last Filed: 04/20/22 18:10> Sensory Exam: Normal double simultaneous stimulation for sensation <Maye FernandesHEAVENLY - Last Filed: 04/20/22 18:10> Coordination: [id number] test normal <Maye Fernandes RI - Last Filed: 04/20/22 18:10> Extrem: General: Yes normal to inspection, Yes full ROM and Yes capillary refill normal <Maye Fernandes RI - Last Filed: 04/20/22 18:10> Psych: Appearance: grossly normal <Maye FernandesHEAVENLY - Last Filed: 04/20/22 18:10> Mental Status: mental status grossly normal <Maye FernandesHEAVENLY - Last Filed: 04/20/22 18:10> Affect: normal affect <Maye FernandesHEAVENLY - Last Filed: 04/20/22 18:10> Attitude: cooperative <Maye BaldwinHEAVENLY goss - Last Filed: 04/20/22 18:10> Thought process: Normal thought process present <Maye FernandesHEAVENLY - Last Filed: 04/20/22 18:10> Thought content: Normal thought content present <Maye FernandesHEAVENLY - Last Filed: 04/20/22 18:10> Insight: Good insight present (Psych) <Maye BaldwinHEAVENLY goss - Last Filed: 04/20/22 18:10> Course Course Course Narrative: -- initial troponin 8.8 >> repeat 14.2, 50% rise, cardiology consulted, Dr. Dennison CT angio chest PE protocol IMPRESSION: 1.? No evidence of PE. Mild narrowing of left proximal pulmonary artery after its takeoff. 2.? No evidence of aortic dissection or aneurysm. 3.? The lungs are clear. VTE: negative >> 2049-- on re-evaluation patient reports continued chest pain. Spoke with Cardiology, Dr. Dennison, who reports unlikely cardiac etiology with small elevated troponin and continuous chest pain. Will obtain additional 3rd repeat troponin and orthostatic vital signs -2219-- 3rd troponin without rise, mi unlikely. Orthostatic vital signs negat kelly. Results discussed with patient including worrisome signs and symptoms and strict return precautions, and when to return to the emergency department. They verbalized understanding and feel safe for discharge at this time. <HEAVENLY Bernard - Last Filed: 04/20/22 22:22> Medications Administered Discontinued Medications Generic Name Dose Route Start Last Admin Trade Name Freq PRN Reason Stop Dose Admin Iohexol 65 ml 04/20/22 18:44 04/20/22 18:44 Iohexol 350 Mg/Ml 100 Ml Infus..Btl IV 04/20/22 18:45 65 ml ONCE ONE Administration Ketorolac Tromethamine 15 mg 04/20/22 21:03 04/20/22 21:10 Ketorolac Tromethamine 15 Mg/Ml Vial IVPUSH 04/20/22 21:04 15 mg ONCE ONE Administration Metoclopramide HCl 10 mg 04/20/22 21:03 04/20/22 21:10 Metoclopramide Hcl 10 Mg/2 Ml Vial IVPUSH 04/20/22 21:04 10 mg ONCE ONE Administration Morphine Sulfate 4 mg 04/20/22 16:10 04/20/22 16:54 Morphine Sulfate 4 Mg/Ml Cartridge IVPUSH 04/20/22 16:11 4 mg ONCE ONE Administration Protocol Ondansetron HCl 4 mg 04/20/22 17:04 04/20/22 17:08 Ondansetron Odt 4 Mg Tab.Rapdis TRANSLINGU 04/20/22 17:05 4 mg ONCE ONE Administration <HEAVENLY Montelongo - Last Filed: 04/20/22 18:10> Medications Administered Discontinued Medications Generic Name Dose Route Start Last Admin Trade Name Freq PRN Reason Stop Dose Admin Iohexol 65 ml 04/20/22 18:44 04/20/22 18:44 Iohexol 350 Mg/Ml 100 Ml Infus..Btl IV 04/20/22 18:45 65 ml ONCE ONE Administration Ketorolac Tromethamine 15 mg 04/20/22 21:03 04/20/22 21:10 Ketorolac Tromethamine 15 Mg/Ml Vial IVPUSH 04/20/22 21:04 15 mg ONCE ONE Administration Metoclopramide HCl 10 mg 04/20/22 21:03 04/20/22 21:10 Metoclopramide Hcl 10 Mg/2 Ml Vial IVPUSH 04/20/22 21:04 10 mg ONCE ONE Administration Morphine Sulfate 4 mg 04/20/22 16:10 04/20/22 16:54 Morphine Sulfate 4 Mg/Ml Cartridge IVPUSH 04/20/22 16:11 4 mg ONCE ONE Administration Protocol Ondansetron HCl 4 mg 04/20/22 17:04 04/20/22 17:08 Ondansetron Odt 4 Mg Tab.Rapdis TRANSLINGU 04/20/22 17:05 4 mg ONCE ONE Administration <HEAVENLY Bernard - Last Filed: 04/20/22 22:22> Medical Decision Making Medical Decision Making [facility] Narrative: Patient is a 62 year old assigned male at with a history of tetralogy of fallot, cardiac pacemaker, and developmental delay presenting to the emergency department today with chest pain. Patient's physical exam was unremarkable. Patient's blood work showed an initial troponin of 8.8 with his repeat pending. Patient's d-dimer was elevated at 286. Patient's EKG was unremarkable. Patient's chest x-ray showed no acute process. Patient's CT PE Chest is pending. I explained my physical exam findings as well as all test results to the patient. I answered all questions asked by the patient. Patient's disposition is pending his repeat troponin and CT PE Chest. Patient signed out to Yuli BURDICK. <HEAVENLY Montelongo - Last Filed: 04/20/22 18:10> Differential Diagnosis Differential Diagnoses: The differential diagnosis associated with the presentation includes <HEAVENLY Montelongo - Last Filed: 04/20/22 18:10> chest pain, PR <HEAVENLY Montelongo - Last Filed: 04/20/22 18:10> Lab Data [facility] Lab Attestation statement: I reviewed the patient's lab results. <HEAVENLY Montelongo - Last Filed: 04/20/22 18:10> Result Diagrams: 04/20/22 16:01 04/20/22 16:01 <HEAVENLY Montelongo - Last Filed: 04/20/22 18:10> Labs: Lab Results 04/20/22 04/20/22 04/20/22 Range/Units 16:01 16:01 16:01 WBC 7.7 (4.8-10.8) X10*3/uL RBC 4.26 L (4.60-5.80) X10*6/uL Hgb 12.8 L (14.0-18.0) g/dl Hct 37.7 L (42.0-52.0) % MCV 88.5 (80.0-98.0) fL MCH 30.0 (27.0-33.0) pg MCHC 34.0 (31.0-36.0) g/dl RDW 12.9 (11.0-16.0) % Plt Count 103 L (160-400) X10*3/uL MPV 11.2 (9.4-12.4) fL Immature Gran % (Auto) 0.9 H (0.0-0.4) % Neut % (Auto) 70.6 (45-73) % Lymph % (Auto) 14.4 L (20-40) % [place] % (Auto) 9.3 (2-11) % Eos % (Auto) 3.9 (0-4) % Baso % (Auto) 0.9 (0-2) % Lymph # (Auto) 1.1 L (1.2-4.9) X10*3/uL [place] # (Auto) 0.7 (0.1-1.2) X10*3/uL Eos # (Auto) 0.3 (0.0-0.4) X10*3/uL Baso # (Auto) 0.1 (0.0-0.2) X10*3/uL Abs Immat Gran (auto) 0.07 H (0.00-0.03) X10*3/uL Absolute Neuts (auto) 5.4 (2.0-8.3) x10*3/uL Absolute Nucleated RBC 0.000 (0.0-0.012) X10*3/uL Nucleated RBC % (auto) 0.0 (0.0-0.2) /100WBC D-Dimer High Sensitivty NG/ML VBG pH (7.32-7.43) VBG pCO2 mmHg VBG pO2 mmHg VBG HCO3 (22-26) mmol/L VBG O2 Saturation % VBG Base Excess mmol/L Sodium 142 (135-145) mmol/L Potassium 3.9 (3.3-5.1) mmol/L Chloride 107 (96-108) mmol/L Carbon Dioxide 25 (22-29) mmol/L Anion Gap 14 (12-20) BUN 21 H (9-16) mg/dL Creatinine 1.28 (0.5-1.4) mg/dL Estim Creat Clear Calc 73.0 Estimated GFR 57 Random Glucose 118 H (60-115) mg/dL Calcium 8.4 (8.4-10.2) mg/dL Total Bilirubin 0.6 (0.0-1.0) mg/dL AST 13 (5-37) U/L ALT 12 (0-40) U/L Alkaline Phosphatase 70 (39-117) U/L Troponin I High Sens 8.8 D (<3.5-35.0) ng/L B-Natriuretic Peptide (<100) pg/mL Total Protein 6.5 (6.5-8.0) g/dL Albumin 3.8 (3.5-5.0) g/dL Urine Color Urine Appearance Urine pH (5.0-9.0) Ur Specific [place] (1.005-1.025) Urine Protein (Neg-Trace) mg/dL Urine Glucose (UA) (Negative) mg/dL Urine Ketones (Negative) mg/dL Urine Blood (Negative) Urine Nitrite (Negative) Ur Leukocyte Esterase (Negative) Influenza Type A (PCR) (Negative) Influenza Type B (PCR) (Negative) RSV RNA Qual (PCR) (Negative) SARS-CoV-2 RNA (RT-PCR) (Negative) 04/20/22 04/20/22 04/20/22 Range/Units 16:01 16:46 16:46 WBC (4.8-10.8) X10*3/uL RBC (4.60-5.80) X10*6/uL Hgb (14.0-18.0) g/dl Hct (42.0-52.0) % MCV (80.0-98.0) fL MCH (27.0-33.0) pg MCHC (31.0-36.0) g/dl RDW (11.0-16.0) % Plt Count (160-400) X10*3/uL MPV (9.4-12.4) fL Immature Gran % (Auto) (0.0-0.4) % Neut % (Auto) (45-73) % Lymph % (Auto) (20-40) % [place] % (Auto) (2-11) % Eos % (Auto) (0-4) % Baso % (Auto) (0-2) % Lymph # (Auto) (1.2-4.9) X10*3/uL [place] # (Auto) (0.1-1.2) X10*3/uL Eos # (Auto) (0.0-0.4) X10*3/uL Baso # (Auto) (0.0-0.2) X10*3/uL Abs Immat Gran (auto) (0.00-0.03) X10*3/uL Absolute Neuts (auto) (2.0-8.3) x10*3/uL Absolute Nucleated RBC (0.0-0.012) X10*3/uL Nucleated RBC % (auto) (0.0-0.2) /100WBC D-Dimer High Sensitivty 286 NG/ML VBG pH (7.32-7.43) VBG pCO2 mmHg VBG pO2 mmHg VBG HCO3 (22-26) mmol/L VBG O2 Saturation % VBG Base Excess mmol/L Sodium (135-145) mmol/L Potassium (3.3-5.1) mmol/L Chloride (96-108) mmol/L Carbon Dioxide (22-29) mmol/L Anion Gap (12-20) BUN (9-16) mg/dL Creatinine (0.5-1.4) mg/dL Estim Creat Clear Calc Estimated GFR Random Glucose (60-115) mg/dL Calcium (8.4-10.2) mg/dL Total Bilirubin (0.0-1.0) mg/dL AST (5-37) U/L ALT (0-40) U/L Alkaline Phosphatase (39-117) U/L Troponin I High Sens (<3.5-35.0) ng/L B-Natriuretic Peptide 45 (<100) pg/mL Total Protein (6.5-8.0) g/dL Albumin (3.5-5.0) g/dL Urine Color Urine Appearance Urine pH (5.0-9.0) Ur Specific [place] (1.005-1.025) Urine Protein (Neg-Trace) mg/dL Urine Glucose (UA) (Negative) mg/dL Urine Ketones (Negative) mg/dL Urine Blood (Negative) Urine Nitrite (Negative) Ur Leukocyte Esterase (Negative) Influenza Type A (PCR) NEGATIVE (Negative) Influenza Type B (PCR) NEGATIVE (Negative) RSV RNA Qual (PCR) NEGATIVE (Negative) SARS-CoV-2 RNA (RT-PCR) NEGATIVE (Negative) 04/20/22 04/20/22 04/20/22 Range/Units 16:54 18:09 18:09 WBC (4.8-10.8) X10*3/uL RBC (4.60-5.80) X10*6/uL Hgb (14.0-18.0) g/dl Hct (42.0-52.0) % MCV (80.0-98.0) fL MCH (27.0-33.0) pg MCHC (31.0-36.0) g/dl RDW (11.0-16.0) % Plt Count (160-400) X10*3/uL MPV (9.4-12.4) fL Immature Gran % (Auto) (0.0-0.4) % Neut % (Auto) (45-73) % Lymph % (Auto) (20-40) % [place] % (Auto) (2-11) % Eos % (Auto) (0-4) % Baso % (Auto) (0-2) % Lymph # (Auto) (1.2-4.9) X10*3/uL [place] # (Auto) (0.1-1.2) X10*3/uL Eos # (Auto) (0.0-0.4) X10*3/uL Baso # (Auto) (0.0-0.2) X10*3/uL Abs Immat Gran (auto) (0.00-0.03) X10*3/uL Absolute Neuts (auto) (2.0-8.3) x10*3/uL Absolute Nucleated RBC (0.0-0.012) X10*3/uL Nucleated RBC % (auto) (0.0-0.2) /100WBC D-Dimer High Sensitivty NG/ML VBG pH 7.42 (7.32-7.43) VBG pCO2 47 mmHg VBG pO2 50 mmHg VBG HCO3 31 H (22-26) mmol/L VBG O2 Saturation 79.0 % VBG Base Excess 6.1 mmol/L Sodium (135-145) mmol/L Potassium (3.3-5.1) mmol/L Chloride (96-108) mmol/L Carbon Dioxide (22-29) mmol/L Anion Gap (12-20) BUN (9-16) mg/dL Creatinine (0.5-1.4) mg/dL Estim Creat Clear Calc Estimated GFR Random Glucose (60-115) mg/dL Calcium (8.4-10.2) mg/dL Total Bilirubin (0.0-1.0) mg/dL AST (5-37) U/L ALT (0-40) U/L Alkaline Phosphatase (39-117) U/L Troponin I High Sens 14.2 D (<3.5-35.0) ng/L B-Natriuretic Peptide (<100) pg/mL Total Protein (6.5-8.0) g/dL Albumin (3.5-5.0) g/dL Urine Color Yellow Urine Appearance Clear Urine pH 5.5 (5.0-9.0) Ur Specific [place] >= 1.030 H (1.005-1.025) Urine Protein Negative (Neg-Trace) mg/dL Urine Glucose (UA) Negative (Negative) mg/dL Urine Ketones Trace (Negative) mg/dL Urine Blood Negative (Negative) Urine Nitrite Negative (Negative) Ur Leukocyte Esterase Negative (Negative) Influenza Type A (PCR) (Negative) Influenza Type B (PCR) (Negative) RSV RNA Qual (PCR) (Negative) SARS-CoV-2 RNA (RT-PCR) (Negative) 04/20/22 Range/Units 21:10 WBC (4.8-10.8) X10*3/uL RBC (4.60-5.80) X10*6/uL Hgb (14.0-18.0) g/dl Hct (42.0-52.0) % MCV (80.0-98.0) fL MCH (27.0-33.0) pg MCHC (31.0-36.0) g/dl RDW (11.0-16.0) % Plt Count (160-400) X10*3/uL MPV (9.4-12.4) fL Immature Gran % (Auto) (0.0-0.4) % Neut % (Auto) (45-73) % Lymph % (Auto) (20-40) % [place] % (Auto) (2-11) % Eos % (Auto) (0-4) % Baso % (Auto) (0-2) % Lymph # (Auto) (1.2-4.9) X10*3/uL [place] # (Auto) (0.1-1.2) X10*3/uL Eos # (Auto) (0.0-0.4) X10*3/uL Baso # (Auto) (0.0-0.2) X10*3/uL Abs Immat Gran (auto) (0.00-0.03) X10*3/uL Absolute Neuts (auto) (2.0-8.3) x10*3/uL Absolute Nucleated RBC (0.0-0.012) X10*3/uL Nucleated RBC % (auto) (0.0-0.2) /100WBC D-Dimer High Sensitivty NG/ML VBG pH (7.32-7.43) VBG pCO2 mmHg VBG pO2 mmHg VBG HCO3 (22-26) mmol/L VBG O2 Saturation % VBG Base Excess mmol/L Sodium (135-145) mmol/L Potassium (3.3-5.1) mmol/L Chloride (96-108) mmol/L Carbon Dioxide (22-29) mmol/L Anion Gap (12-20) BUN (9-16) mg/dL Creatinine (0.5-1.4) mg/dL Estim Creat Clear Calc Estimated GFR Random Glucose (60-115) mg/dL Calcium (8.4-10.2) mg/dL Total Bilirubin (0.0-1.0) mg/dL AST (5-37) U/L ALT (0-40) U/L Alkaline Phosphatase (39-117) U/L Troponin I High Sens 10.7 (<3.5-35.0) ng/L B-Natriuretic Peptide (<100) pg/mL Total Protein (6.5-8.0) g/dL Albumin (3.5-5.0) g/dL Urine Color Urine Appearance Urine pH (5.0-9.0) Ur Specific [place] (1.005-1.025) Urine Protein (Neg-Trace) mg/dL Urine Glucose (UA) (Negative) mg/dL Urine Ketones (Negative) mg/dL Urine Blood (Negative) Urine Nitrite (Negative) Ur Leukocyte Esterase (Negative) Influenza Type A (PCR) (Negative) Influenza Type B (PCR) (Negative) RSV RNA Qual (PCR) (Negative) SARS-CoV-2 RNA (RT-PCR) (Negative) <HEAVELNY Montelongo - Last Filed: 04/20/22 18:10> Lab Results 04/20/22 04/20/22 04/20/22 Range/Units 16:01 16:01 16:01 WBC 7.7 (4.8-10.8) X10*3/uL RBC 4.26 L (4.60-5.80) X10*6/uL Hgb 12.8 L (14.0-18.0) g/dl Hct 37.7 L (42.0-52.0) % MCV 88.5 (80.0-98.0) fL MCH 30.0 (27.0-33.0) pg MCHC 34.0 (31.0-36.0) g/dl RDW 12.9 (11.0-16.0) % Plt Count 103 L (160-400) X10*3/uL MPV 11.2 (9.4-12.4) fL Immature Gran % (Auto) 0.9 H (0.0-0.4) % Neut % (Auto) 70.6 (45-73) % Lymph % (Auto) 14.4 L (20-40) % [place] % (Auto) 9.3 (2-11) % Eos % (Auto) 3.9 (0-4) % Baso % (Auto) 0.9 (0-2) % Lymph # (Auto) 1.1 L (1.2-4.9) X10*3/uL [place] # (Auto) 0.7 (0.1-1.2) X10*3/uL Eos # (Auto) 0.3 (0.0-0.4) X10*3/uL Baso # (Auto) 0.1 (0.0-0.2) X10*3/uL Abs Immat Gran (auto) 0.07 H (0.00-0.03) X10*3/uL Absolute Neuts (auto) 5.4 (2.0-8.3) x10*3/uL Absolute Nucleated RBC 0.000 (0.0-0.012) X10*3/uL Nucleated RBC % (auto) 0.0 (0.0-0.2) /100WBC D-Dimer High Sensitivty NG/ML VBG pH (7.32-7.43) VBG pCO2 mmHg VBG pO2 mmHg VBG HCO3 (22-26) mmol/L VBG O2 Saturation % VBG Base Excess mmol/L Sodium 142 (135-145) mmol/L Potassium 3.9 (3.3-5.1) mmol/L Chloride 107 (96-108) mmol/L Carbon Dioxide 25 (22-29) mmol/L Anion Gap 14 (12-20) BUN 21 H (9-16) mg/dL Creatinine 1.28 (0.5-1.4) mg/dL Estim Creat Clear Calc 73.0 Estimated GFR 57 Random Glucose 118 H (60-115) mg/dL Calcium 8.4 (8.4-10.2) mg/dL Total Bilirubin 0.6 (0.0-1.0) mg/dL AST 13 (5-37) U/L ALT 12 (0-40) U/L Alkaline Phosphatase 70 (39-117) U/L Troponin I High Sens 8.8 D (<3.5-35.0) ng/L B-Natriuretic Peptide (<100) pg/mL Total Protein 6.5 (6.5-8.0) g/dL Albumin 3.8 (3.5-5.0) g/dL Urine Color Urine Appearance Urine pH (5.0-9.0) Ur Specific [place] (1.005-1.025) Urine Protein (Neg-Trace) mg/dL Urine Glucose (UA) (Negative) mg/dL Urine Ketones (Negative) mg/dL Urine Blood (Negative) Urine Nitrite (Negative) Ur Leukocyte Esterase (Negative) Influenza Type A (PCR) (Negative) Influenza Type B (PCR) (Negative) RSV RNA Qual (PCR) (Negative) SARS-CoV-2 RNA (RT-PCR) (Negative) 04/20/22 04/20/22 04/20/22 Range/Units 16:01 16:46 16:46 WBC (4.8-10.8) X10*3/uL RBC (4.60-5.80) X10*6/uL Hgb (14.0-18.0) g/dl Hct (42.0-52.0) % MCV (80.0-98.0) fL MCH (27.0-33.0) pg MCHC (31.0-36.0) g/dl RDW (11.0-16.0) % Plt Count (160-400) X10*3/uL MPV (9.4-12.4) fL Immature Gran % (Auto) (0.0-0.4) % Neut % (Auto) (45-73) % Lymph % (Auto) (20-40) % [place] % (Auto) (2-11) % Eos % (Auto) (0-4) % Baso % (Auto) (0-2) % Lymph # (Auto) (1.2-4.9) X10*3/uL [place] # (Auto) (0.1-1.2) X10*3/uL Eos # (Auto) (0.0-0.4) X10*3/uL Baso # (Auto) (0.0-0.2) X10*3/uL Abs Immat Gran (auto) (0.00-0.03) X10*3/uL Absolute Neuts (auto) (2.0-8.3) x10*3/uL Absolute Nucleated RBC (0.0-0.012) X10*3/uL Nucleated RBC % (auto) (0.0-0.2) /100WBC D-Dimer High Sensitivty 286 NG/ML VBG pH (7.32-7.43) VBG pCO2 mmHg VBG pO2 mmHg VBG HCO3 (22-26) mmol/L VBG O2 Saturation % VBG Base Excess mmol/L Sodium (135-145) mmol/L Potassium (3.3-5.1) mmol/L Chloride (96-108) mmol/L Carbon Dioxide (22-29) mmol/L Anion Gap (12-20) BUN (9-16) mg/dL Creatinine (0.5-1.4) mg/dL Estim Creat Clear Calc Estimated GFR Random Glucose (60-115) mg/dL Calcium (8.4-10.2) mg/dL Total Bilirubin (0.0-1.0) mg/dL AST (5-37) U/L ALT (0-40) U/L Alkaline Phosphatase (39-117) U/L Troponin I High Sens (<3.5-35.0) ng/L B-Natriuretic Peptide 45 (<100) pg/mL Total Protein (6.5-8.0) g/dL Albumin (3.5-5.0) g/dL Urine Color Urine Appearance Urine pH (5.0-9.0) Ur Specific [place] (1.005-1.025) Urine Protein (Neg-Trace) mg/dL Urine Glucose (UA) (Negative) mg/dL Urine Ketones (Negative) mg/dL Urine Blood (Negative) Urine Nitrite (Negative) Ur Leukocyte Esterase (Negative) Influenza Type A (PCR) NEGATIVE (Negative) Influenza Type B (PCR) NEGATIVE (Negative) RSV RNA Qual (PCR) NEGATIVE (Negative) SARS-CoV-2 RNA (RT-PCR) NEGATIVE (Negative) 04/20/22 04/20/22 04/20/22 Range/Units 16:54 18:09 18:09 WBC (4.8-10.8) X10*3/uL RBC (4.60-5.80) X10*6/uL Hgb (14.0-18.0) g/dl Hct (42.0-52.0) % MCV (80.0-98.0) fL MCH (27.0-33.0) pg MCHC (31.0-36.0) g/dl RDW (11.0-16.0) % Plt Count (160-400) X10*3/uL MPV (9.4-12.4) fL Immature Gran % (Auto) (0.0-0.4) % Neut % (Auto) (45-73) % Lymph % (Auto) (20-40) % [place] % (Auto) (2-11) % Eos % (Auto) (0-4) % Baso % (Auto) (0-2) % Lymph # (Auto) (1.2-4.9) X10*3/uL [place] # (Auto) (0.1-1.2) X10*3/uL Eos # (Auto) (0.0-0.4) X10*3/uL Baso # (Auto) (0.0-0.2) X10*3/uL Abs Immat Gran (auto) (0.00-0.03) X10*3/uL Absolute Neuts (auto) (2.0-8.3) x10*3/uL Absolute Nucleated RBC (0.0-0.012) X10*3/uL Nucleated RBC % (auto) (0.0-0.2) /100WBC D-Dimer High Sensitivty NG/ML VBG pH 7.42 (7.32-7.43) VBG pCO2 47 mmHg VBG pO2 50 mmHg VBG HCO3 31 H (22-26) mmol/L VBG O2 Saturation 79.0 % VBG Base Excess 6.1 mmol/L Sodium (135-145) mmol/L Potassium (3.3-5.1) mmol/L Chloride (96-108) mmol/L Carbon Dioxide (22-29) mmol/L Anion Gap (12-20) BUN (9-16) mg/dL Creatinine (0.5-1.4) mg/dL Estim Creat Clear Calc Estimated GFR Random Glucose (60-115) mg/dL Calcium (8.4-10.2) mg/dL Total Bilirubin (0.0-1.0) mg/dL AST (5-37) U/L ALT (0-40) U/L Alkaline Phosphatase (39-117) U/L Troponin I High Sens 14.2 D (<3.5-35.0) ng/L B-Natriuretic Peptide (<100) pg/mL Total Protein (6.5-8.0) g/dL Albumin (3.5-5.0) g/dL Urine Color Yellow Urine Appearance Clear Urine pH 5.5 (5.0-9.0) Ur Specific [place] >= 1.030 H (1.005-1.025) Urine Protein Negative (Neg-Trace) mg/dL Urine Glucose (UA) Negative (Negative) mg/dL Urine Ketones Trace (Negative) mg/dL Urine Blood Negative (Negative) Urine Nitrite Negative (Negative) Ur Leukocyte Esterase Negative (Negative) Influenza Type A (PCR) (Negative) Influenza Type B (PCR) (Negative) RSV RNA Qual (PCR) (Negative) SARS-CoV-2 RNA (RT-PCR) (Negative) 04/20/22 Range/Units 21:10 WBC (4.8-10.8) X10*3/uL RBC (4.60-5.80) X10*6/uL Hgb (14.0-18.0) g/dl Hct (42.0-52.0) % MCV (80.0-98.0) fL MCH (27.0-33.0) pg MCHC (31.0-36.0) g/dl RDW (11.0-16.0) % Plt Count (160-400) X10*3/uL MPV (9.4-12.4) fL Immature Gran % (Auto) (0.0-0.4) % Neut % (Auto) (45-73) % Lymph % (Auto) (20-40) % [place] % (Auto) (2-11) % Eos % (Auto) (0-4) % Baso % (Auto) (0-2) % Lymph # (Auto) (1.2-4.9) X10*3/uL [place] # (Auto) (0.1-1.2) X10*3/uL Eos # (Auto) (0.0-0.4) X10*3/uL Baso # (Auto) (0.0-0.2) X10*3/uL Abs Immat Gran (auto) (0.00-0.03) X10*3/uL Absolute Neuts (auto) (2.0-8.3) x10*3/uL Absolute Nucleated RBC (0.0-0.012) X10*3/uL Nucleated RBC % (auto) (0.0-0.2) /100WBC D-Dimer High Sensitivty NG/ML VBG pH (7.32-7.43) VBG pCO2 mmHg VBG pO2 mmHg VBG HCO3 (22-26) mmol/L VBG O2 Saturation % VBG Base Excess mmol/L Sodium (135-145) mmol/L Potassium (3.3-5.1) mmol/L Chloride (96-108) mmol/L Carbon Dioxide (22-29) mmol/L Anion Gap (12-20) BUN (9-16) mg/dL Creatinine (0.5-1.4) mg/dL Estim Creat Clear Calc Estimated GFR Random Glucose (60-115) mg/dL Calcium (8.4-10.2) mg/dL Total Bilirubin (0.0-1.0) mg/dL AST (5-37) U/L ALT (0-40) U/L Alkaline Phosphatase (39-117) U/L Troponin I High Sens 10.7 (<3.5-35.0) ng/L B-Natriuretic Peptide (<100) pg/mL Total Protein (6.5-8.0) g/dL Albumin (3.5-5.0) g/dL Urine Color Urine Appearance Urine pH (5.0-9.0) Ur Specific [place] (1.005-1.025) Urine Protein (Neg-Trace) mg/dL Urine Glucose (UA) (Negative) mg/dL Urine Ketones (Negative) mg/dL Urine Blood (Negative) Urine Nitrite (Negative) Ur Leukocyte Esterase (Negative) Influenza Type A (PCR) (Negative) Influenza Type B (PCR) (Negative) RSV RNA Qual (PCR) (Negative) SARS-CoV-2 RNA (RT-PCR) (Negative) <HEAVENLY Bernard - Last Filed: 04/20/22 22:22> Independent Interpretation I performed an independent interpretation of an: EKG <HEAVENLY Montelongo - Last Filed: 04/20/22 18:10> Interpretation: Vent. Rate: 093 BPM ? ? Atrial Rate: 093 BPM P-R Int: 206 ms? QRS Dur: 174 ms QT Int: 410 ms ? ? ? P-R-T Axes: 069 110 057 degrees QTc Int: 509 ms ? Normal sinus rhythm Right bundle branch block Left posterior fascicular block Bifascicular block Abnormal ECG When compared with ECG of 07-APR-2022 18:51, Premature ventricular complexes are no longer Present Left posterior fascicular block is now Present DD/ 1538 <HEAVENLY Montelongo - Last Filed: 04/20/22 18:10> Radiology Impression Discussion of test interpretation with radiology: I have reviewed the radiologist's reading. <HEAVENLY Montelongo - Last Filed: 04/20/22 18:10> Radiologist Impression: My interpretation is in agreement with the radiologist's impression of this imaging study. EXAMINATION: XR CHEST CLINICAL INFORMATION: Chest pain COMPARISON: None TECHNIQUE: 2 views of the chest were obtained. FINDINGS: Lungs are well-expanded and clear. Heart size and pulmonary vascularity is normal. There are pacer electrodes in right atrium and right ventricle. No gross bony abnormality seen. XR/XR chest 2V IMPRESSION: Unremarkable chest exam. ? Dictated By: Alvarez Sosa MD Signed By: Electronically signed by Alvarez Sosa MD 04/20/22 4102 <HEAVENLY Montelongo Last Filed: 04/20/22 18:10> Discharge Plan Discharge Clinical Impression: Chest pain <HEAVENLY Montelongo Last Filed: 04/20/22 18:10> Patient Disposition: Still a Patient <HEAVENLY Montelongo Last Filed: 04/20/22 18:10> Prescriptions: No Action isosorbide mononitrate 30 mg Tablet Extended Release 24 Hr 30 mg PO DAILY Qty: 0 0RF Protocol: Hold for SBP< HOLD for SBP < : 90 aspirin 81 mg Tablet,Delayed Release (Dr/Ec) 81 mg PO DAILY Qty: 0 0RF lisinopril 2.5 mg Tablet 2.5 mg PO DAILY Qty: 0 0RF Protocol: Hold for SBP< HOLD for SBP < : 90 acetaminophen 325 mg Tablet 650 mg PO Q6H PRN (Reason: Headache/Pain Mild Scale (1-3)) Qty: 0 0RF paroxetine HCl 10 mg Tablet 10 mg PO DAILY Qty: 0 0RF naproxen 500 mg Tablet 500 mg PO BID PRN (Reason: Pain, Moderate (Pain Scale 4-6) Qty: 0 0RF hydroxyzine HCl 25 mg Tablet 25 mg PO BEDTIME PRN (Reason: Anxiety) Qty: 0 0RF levothyroxine 75 mcg Tablet 75 mcg PO DAILY@0630 Qty: 0 0RF metformin 500 mg Tablet 500 mg PO BIDWM 30 Days Qty: 60 0RF lidocaine [Lidocaine Pain Relief] 4 % Adhesive Patch,Medicated 1 patch transdermal DAILY 30 Days Qty: 30 0RF Protocol: Apply to: Apply to: left lower back albuterol sulfate 90 mcg/actuation Hfa Aerosol Inhaler 2 puff inhalation RQ4H PRN (Reason: Shortness Of Breath) 30 Days Qty: 1 0RF metoprolol succinate 100 mg Tablet Extended Release 24 Hr 100 mg PO DAILY Qty: 0 0RF Protocol: Hold for SBP/HR < HOLD for SBP < : 90 HOLD for HR < : 60 olanzapine 2.5 mg Tablet 2.5 mg PO DAILY Qty: 0 0RF olanzapine 2.5 mg Tablet 2.5 mg PO DAILY PRN (Reason: anxiety somatic preoccupation ) Qty: 0 0RF trazodone 100 mg Tablet 100 mg PO BEDTIME Qty: 0 0RF gabapentin 300 mg Capsule 300 mg PO DAILY PRN (Reason: anxiety) Qty: 0 0RF gabapentin 300 mg Capsule 300 mg PO BID Qty: 0 0RF melatonin 3 mg Tablet 6 mg PO BEDTIME Qty: 0 0RF gabapentin 300 mg capsule 300 mg PO BID 30 Days Qty: 60 0RF <HEAVENLY Montelongo - Last Filed: 04/20/22 18:10>
[2022-04-20 16:06] LABS: MANUAL DIFF FLAG NO
[2022-04-20 16:08] LABS: Basophils Absolute Auto 0.1 X10*3/uL (0.0-0.2); Basophils Percent Auto 0.9 % (0-2); Eosinophils Absolute Auto 0.3 X10*3/uL (0.0-0.4); Eosinophils Percent Auto 3.9 % (0-4); Hematocrit 37.7 % (42.0-52.0); Hemoglobin 12.8 g/dl (14.0-18.0); Imm Gran Abs Auto 0.07 X10*3/uL (0.00-0.03); Imm Gran Pct Auto 0.9 % (0.0-0.4); Lymphocytes Absolute Auto 1.1 X10*3/uL (1.2-4.9); Lymphocytes Percent Auto 14.4 % (20-40); Mean Corpuscular Volume 88.5 fL (80.0-98.0); Mean Platelet Volume 11.2 fL (9.4-12.4); Monocytes Absolute Auto 0.7 X10*3/uL (0.1-1.2); Monocytes Percent Auto 9.3 % (2-11); Neutrophils Absolute Auto 5.4 x10*3/uL (2.0-8.3); Neutrophils Percent Auto 70.6 % (45-73); Platelet Count 103 X10*3/uL (160-400); Red Blood Count 4.26 X10*6/uL (4.60-5.80); Red Cell Distribution Width 12.9 % (11.0-16.0); White Blood Count 7.7 X10*3/uL (4.8-10.8)
[2022-04-20 16:21] LABS: Alanine Aminotransferase 12 U/L (0-40); Albumin Level 3.8 g/dL (3.5-5.0); Alkaline Phosphatase 70 U/L (39-117); Anion Gap 14 (12-20); Aspartate Amino Transferase 13 U/L (5-37); Bilirubin Total 0.6 mg/dL (0.0-1.0); Blood Urea Nitrogen 21 mg/dL (9-16); Calcium 8.4 mg/dL (8.4-10.2); Carbon Dioxide 25 mmol/L (22-29); Chloride 107 mmol/L (96-108); Estimated Glomerular Filt Rate 57; Glucose Random 118 mg/dL (60-115); Potassium 3.9 mmol/L (3.3-5.1); Sodium 142 mmol/L (135-145); Total Protein 6.5 g/dL (6.5-8.0)
[2022-04-20 16:27] LABS: Troponin-I High Sensitivity 8.8 ng/L (<3.5-35.0)
[2022-04-20 16:47] LABS: Influenza A PCR NEGATIVE (Negative); Influenza B PCR NEGATIVE (Negative); Resp Syncy Virus RNA Qual PCR NEGATIVE (Negative); SARS COV2 PCR INHOUSE NEGATIVE (Negative)
[2022-04-20] MEDS: Morphine Sulfate 4 MG/ML CARTRIDGE IVPUSH (16:54)
--- NOTE | 2022-04-20 17:00 | PC.NURSE ---
swapped IV tubing for CT
[2022-04-20 17:03] LABS: VBG Base Excess 6.1 mmol/L; VBG HCO3 31 mmol/L (22-26); VBG pCO2 47 mmHg; VBG pH 7.42 (7.32-7.43); VBG pO2 50 mmHg
[2022-04-20 17:04] LABS: D Dimer High Sensitivity 286 NG/ML
[2022-04-20] MEDS: Ondansetron ODT 4 MG TAB.RAPDIS TRANSLINGU (17:08)
[2022-04-20 17:17] LABS: Venous Blood Gas Refer to POC result
[2022-04-20 17:20] LABS: B Type Natriuretic Peptide 45 pg/mL (<100)
[2022-04-20 18:24] LABS: Appearance Urine Clear; Color Urine Yellow; Glucose Urine UA Negative (Negative); Leukocyte Esterase Urine Negative (Negative); Nitrite Urine Negative (Negative); PH 5.5 (5.0-9.0); Specific Gravity - Urine >= 1.030 (1.005-1.025); Urine Blood Negative (Negative); Urine Ketones Trace mg/dL (Negative); Urine Protein Negative (Neg-Trace)
[2022-04-20] MEDS: iohexoL 350 MG/ML 100 ML INFUS..BTL 65 ML IV (18:44)
[2022-04-20 18:46] LABS: Troponin-I High Sensitivity 14.2 ng/L (<3.5-35.0)
--- NOTE | 2022-04-20 19:23 | PC.NURSE ---
pt alert and orietned x4, resting on stretcher, reports having chest pressure for a few hours now. Pt reports he had an episode of this last and went to [facility] but was never seen by a provider. Pt received morphine for the pain and reports a decrease in pain at this time. awaiting CT results
[2022-04-20] MEDS: Metoclopramide HCl 10 MG/2 ML VIAL IVPUSH (21:10)
[2022-04-20] MEDS: Ketorolac Tromethamine 15 MG/ML VIAL IVPUSH (21:10)
--- NOTE | 2022-04-20 21:14 | PC.NURSE ---
pt reports continued chest pain, PA made aware and meds administered per MAR
[2022-04-20 21:38] LABS: Troponin-I High Sensitivity 10.7 ng/L (<3.5-35.0)
== END 2022-04-20 22:33 | disposition home or self-care (01) ==
PROVIDERS: Physician Assistant; Physician Assistant Medical; Emergency Provider Emergency Medicine Emergency Medical Services
DX: R07.9 Chest pain, unspecified (principal); Z20.822 Contact with and (suspected) exposure to COVID-19; Z20.828 Contact with and (suspected) exposure to other viral communicable diseases; E11.9 Type 2 diabetes mellitus without complications; I10 Essential (primary) hypertension; E78.5 Hyperlipidemia, unspecified; Q21.3 Tetralogy of Fallot; J44.9 Chronic obstructive pulmonary disease, unspecified; G47.30 Sleep apnea, unspecified; F89 Unspecified disorder of psychological development; I45.10 Unspecified right bundle-branch block; F41.9 Anxiety disorder, unspecified; Z95.0 Presence of cardiac pacemaker; Z87.891 Personal history of nicotine dependence; Z79.82 Long term (current) use of aspirin; Z79.899 Other long term (current) drug therapy; Z79.84 Long term (current) use of oral hypoglycemic drugs
CPT/HCPCS: 0241U; 36415; 71046; 71275; 80053; 81003; 82803; 83880; 84484; 85025; 85379; 93005; 96374; 96375; 99284; 99285; J1885; J2270; J2765; Q9967

== ENCOUNTER 2022-04-23 21:48 | Emergency (ER) | payer OTHER, SELFPAY ==
--- NOTE | 2022-04-23 21:51 | ECG_ITS ---
Test Reason : CHEST PAIN Blood Pressure : / mmHG Vent. Rate : 065 BPM Atrial Rate : 065 BPM P-R Int : 216 ms QRS Dur : 182 ms QT Int : 478 ms P-R-T Axes : 069 107 076 degrees QTc Int : 497 ms Sinus rhythm with 1st degree A-V block Right bundle branch block Abnormal ECG When compared with ECG of 20-APR-2022 15:38, No significant change was found Referred By: Generic ED Physician Electronically Signed By:PATO ROMAN MD
--- NOTE | 2022-04-23 22:12 | ED.CHESTPAIN ---
HPI - Chest Pain General Chief Complaint: Chest Pain Stated Complaint: chest pains 2x days ago, came back today Time Seen by Provider: 04/23/22 22:10 Source: patient Mode of arrival: ambulatory Limitations: no limitations History of Present Illness HPI narrative: 62 years old male with history of prolonged QT interval normal JT interval history of anxiety depression COPD hypertension status post defibrillator prior tetralogy of Fallot repair been to hospital multiple times for atypical noncardiac chest pain patient was seen here on 04/20 for same with no significant delta change in troponin CTA chest was negative comes here for similar chest pain localized to left side feels heavy going on since morning. Patient does get chest pain to 3 times a week and goes to hospital almost every week which is going on for last 1 year with workup negative patient gets chest pain whenever patient becomes anxious and stressed out patient took 3 nitros today Related Data Previous Rx's Medication Instructions Recorded acetaminophen 325 mg tablet 650 mg PO Q6H PRN Headache/Pain 09/22/21 Mild Scale (1-3) #0 tabs aspirin 81 mg tablet,delayed 81 mg PO DAILY #0 tabs 09/22/21 release hydroxyzine HCl 25 mg tablet 25 mg PO BEDTIME PRN Anxiety #0 09/22/21 tabs isosorbide mononitrate 30 mg 30 mg PO DAILY #0 tabs 09/22/21 tablet,extended release 24 hr levothyroxine 75 mcg tablet 75 mcg PO DAILY@0630 #0 tabs 09/22/21 lisinopril 2.5 mg tablet 2.5 mg PO DAILY #0 tabs 09/22/21 naproxen 500 mg tablet 500 mg PO BID PRN Pain, Moderate 09/22/21 (Pain Scale 4-6 #0 tabs paroxetine HCl 10 mg tablet 10 mg PO DAILY #0 tabs 09/22/21 albuterol sulfate 90 mcg/actuation 2 puff inhalation RQ4H PRN 09/28/21 aerosol inhaler Shortness Of Breath 30 days #1 inhaler gabapentin 300 mg capsule 300 mg PO BID #0 caps 09/28/21 gabapentin 300 mg capsule 300 mg PO BID 30 days #60 caps 09/28/21 gabapentin 300 mg capsule 300 mg PO DAILY PRN anxiety #0 caps 09/28/21 lidocaine 4 % topical patch 1 patch transdermal DAILY 30 days 09/28/21 (Lidocaine Pain Relief) #30 ea melatonin 3 mg tablet 6 mg PO BEDTIME #0 tabs 09/28/21 metformin 500 mg tablet 500 mg PO BIDWM 30 days #60 tabs 09/28/21 metoprolol succinate 100 mg 100 mg PO DAILY #0 tabs 09/28/21 tablet,extended release 24 hr olanzapine 2.5 mg tablet 2.5 mg PO DAILY #0 tabs 09/28/21 olanzapine 2.5 mg tablet 2.5 mg PO DAILY PRN anxiety 09/28/21 somatic preoccupation #0 tabs trazodone 100 mg tablet 100 mg PO BEDTIME #0 tabs 09/28/21 lorazepam 0.5 mg tablet (Ativan) 0.5 mg PO BEDTIME PRN anxiety #10 04/23/22 tabs Allergies Allergy/AdvReac Type Severity Reaction Status Date / Time aripiprazole [From Abilify] Allergy Severe Rash Verified 04/07/22 13:32 peas Allergy Severe HIVES Verified 04/07/22 13:32 atorvastatin [From Lipitor] Allergy Intermediate Hives Verified 04/20/22 17:24 bee pollen [bee stings] AdvReac Severe Anaphylaxis Verified 04/07/22 13:32 Review of Systems Review of Systems: Yes all other systems are reviewed and are negative PMFSH Past Medical History Medical History Anxiety Artificial cardiac pacemaker Asthma Cardiac defibrillator in place COPD (chronic obstructive pulmonary disease) Depression Developmental delay, mild Diabetes GERD (gastroesophageal reflux disease) History of ETOH abuse Hyperlipidemia Hypertension Hyperthyroidism RBBB Seizure Sleep apnea Surgical History History of cardiac cath Social History Social History Household Members: Other Housing: Other Housing Other:: Sober House Do you presently have visiting nurse or other home services: No Alcohol intake: former Patient Tobacco Use Status: Former Tobacco user Quit Date: 30 years Tobacco use type: Cigarette Smoked in Last 30 Days: No Second Hand Smoke Exposure: No Use of substances other than those prescribed or required for medical reasons: No Substance Use Type: Former Substance User, Prescription Drugs and Caffiene Advance Directives: No Advance Directives Information Provided: No service: No Current occupational status: disabled Sexual orientation: Did not discuss. Physical Exam Vital Signs: Vital Signs: Last Vital Signs Temp 97.5 F 04/23/22 22:13 Pulse 68 04/23/22 23:40 Resp 12 04/23/22 23:40 BP 174/84 H 04/23/22 23:40 Pulse Ox 97 04/23/22 23:40 O2 Del Method 04/23/22 23:40 BMI result Body Mass Index 34.0 Appearance: Alert. Oriented X3. No acute distress. Anxious Eyes: PERRLA, No Nystagmus ENT: Pharynx normal. Oral Mucosa moist Neck: Normal inspection. Neck supple. CVS: Normal heart rate and rhythm. Pulses normal. Respiratory: No respiratory distress. Equal air entry bilateral, no wheezing/rales/rhonchi Abdomen: Soft and nontender. Bowel sounds are present, no mass palpable, no CVA tenderness Skin: Skin warm and dry. Normal skin color. Normal skin turgor. Extremities: No lower extremity edema. No calf tenderness Neuro: Oriented X 3. No motor deficit. No sensory deficit.No cerebellar signs , cranial nerves II-XII intact Medications Administered Discontinued Medications Generic Name Dose Route Start Last Admin Trade Name Freq PRN Reason Stop Dose Admin Lorazepam 1 mg 04/23/22 22:20 04/23/22 22:28 Lorazepam 1 Mg Tablet PO 04/23/22 22:21 1 mg ONCE ONE Administration Medical Decision Making Medical Decision Making [facility] Narrative: Patient has frequent chest pain with anxiety multiple ED visits almost 3 to 4 times a month workup negative came with similar chest pain cardiac enzyme negative EKG without any ischemic changes patient felt better after taking Ativan will discharge patient home advised to follow with intertype operator Lab Data [facility] Lab Attestation statement: I reviewed the patient's lab results. 04/23/22 22:26 04/23/22 22:26 Labs: Lab Results 04/23/22 04/23/22 04/23/22 Range/Units 22:26 22:26 22:26 WBC 6.7 (4.8-10.8) X10*3/uL RBC 3.77 L (4.60-5.80) X10*6/uL Hgb 11.4 L (14.0-18.0) g/dl Hct 32.8 L (42.0-52.0) % MCV 87.0 (80.0-98.0) fL MCH 30.2 (27.0-33.0) pg MCHC 34.8 (31.0-36.0) g/dl RDW 12.9 (11.0-16.0) % Plt Count 84 L (160-400) X10*3/uL MPV 11.4 (9.4-12.4) fL Absolute Nucleated RBC 0.000 (0.0-0.012) X10*3/uL Nucleated RBC % (auto) 0.0 (0.0-0.2) /100WBC Sodium 143 (135-145) mmol/L Potassium 3.6 (3.3-5.1) mmol/L Chloride 113 H (96-108) mmol/L Carbon Dioxide 22 (22-29) mmol/L Anion Gap 12 (12-20) BUN 13 (9-16) mg/dL Creatinine 1.04 (0.5-1.4) mg/dL Estim Creat Clear Calc 89.9 Estimated GFR > 60 Random Glucose 163 H (60-115) mg/dL Calcium 7.7 L D (8.4-10.2) mg/dL Total Bilirubin 0.4 (0.0-1.0) mg/dL AST 16 (5-37) U/L ALT 15 (0-40) U/L Alkaline Phosphatase 71 (39-117) U/L Troponin I High Sens 3.5 D (<3.5-35.0) ng/L Total Protein 5.9 L (6.5-8.0) g/dL Albumin 3.5 (3.5-5.0) g/dL Independent Interpretation I performed an independent interpretation of an: EKG Interpretation: Regular rhythm heart rate of 65 beats per minute first-degree heart block right bundle-branch block no acute ST T wave changes no acute ischemia Discharge Plan Discharge Clinical Impression: Atypical chest pain, Anxiety Patient Disposition: Home, Self-Care Instructions: Chest Pain (ED), Anxiety (ED) Additional Instructions: Rest at home Take medication as prescribed by your PCP and intertype operator Anxiety medication as prescribed Follow-up with the PCP Prescriptions: New lorazepam [Ativan] 0.5 mg tablet 0.5 mg PO BEDTIME PRN (Reason: anxiety) Qty: 10 0RF No Action isosorbide mononitrate 30 mg Tablet Extended Release 24 Hr 30 mg PO DAILY Qty: 0 0RF Protocol: Hold for SBP< HOLD for SBP < : 90 aspirin 81 mg Tablet,Delayed Release (Dr/Ec) 81 mg PO DAILY Qty: 0 0RF lisinopril 2.5 mg Tablet 2.5 mg PO DAILY Qty: 0 0RF Protocol: Hold for SBP< HOLD for SBP < : 90 acetaminophen 325 mg Tablet 650 mg PO Q6H PRN (Reason: Headache/Pain Mild Scale (1-3)) Qty: 0 0RF paroxetine HCl 10 mg Tablet 10 mg PO DAILY Qty: 0 0RF naproxen 500 mg Tablet 500 mg PO BID PRN (Reason: Pain, Moderate (Pain Scale 4-6) Qty: 0 0RF hydroxyzine HCl 25 mg Tablet 25 mg PO BEDTIME PRN (Reason: Anxiety) Qty: 0 0RF levothyroxine 75 mcg Tablet 75 mcg PO DAILY@0630 Qty: 0 0RF metformin 500 mg Tablet 500 mg PO BIDWM 30 Days Qty: 60 0RF lidocaine [Lidocaine Pain Relief] 4 % Adhesive Patch,Medicated 1 patch transdermal DAILY 30 Days Qty: 30 0RF Protocol: Apply to: Apply to: left lower back albuterol sulfate 90 mcg/actuation Hfa Aerosol Inhaler 2 puff inhalation RQ4H PRN (Reason: Shortness Of Breath) 30 Days Qty: 1 0RF metoprolol succinate 100 mg Tablet Extended Release 24 Hr 100 mg PO DAILY Qty: 0 0RF Protocol: Hold for SBP/HR < HOLD for SBP < : 90 HOLD for HR < : 60 olanzapine 2.5 mg Tablet 2.5 mg PO DAILY Qty: 0 0RF olanzapine 2.5 mg Tablet 2.5 mg PO DAILY PRN (Reason: anxiety somatic preoccupation ) Qty: 0 0RF trazodone 100 mg Tablet 100 mg PO BEDTIME Qty: 0 0RF gabapentin 300 mg Capsule 300 mg PO DAILY PRN (Reason: anxiety) Qty: 0 0RF gabapentin 300 mg Capsule 300 mg PO BID Qty: 0 0RF melatonin 3 mg Tablet 6 mg PO BEDTIME Qty: 0 0RF gabapentin 300 mg capsule 300 mg PO BID 30 Days Qty: 60 0RF Interventions: ED Discharge Assessment Last Done: 04/23/22 23:56 Discharge Date/Time: 04/23/22 23:58
[2022-04-23 22:13] VITALS: BP 168/90; PULSE 68; RESP 20; TEMP 36.4; O2SAT 99; BMI 34.0
[2022-04-23] MEDS: LORazepam 1 MG TABLET PO (22:28)
[2022-04-23 22:31] LABS: Hematocrit 32.8 % (42.0-52.0); Hemoglobin 11.4 g/dl (14.0-18.0); Mean Corpuscular HGB Conc 34.8 g/dl (31.0-36.0); Mean Corpuscular Hemoglobin 30.2 pg (27.0-33.0); Mean Platelet Volume 11.4 fL (9.4-12.4); Red Blood Count 3.77 X10*6/uL (4.60-5.80); Red Cell Distribution Width 12.9 % (11.0-16.0); White Blood Count 6.7 X10*3/uL (4.8-10.8)
[2022-04-23 22:32] LABS: Platelet Count 84 X10*3/uL (160-400)
[2022-04-23 22:46] LABS: Alanine Aminotransferase 15 U/L (0-40); Albumin Level 3.5 g/dL (3.5-5.0); Alkaline Phosphatase 71 U/L (39-117); Anion Gap 12 (12-20); Aspartate Amino Transferase 16 U/L (5-37); Bilirubin Total 0.4 mg/dL (0.0-1.0); Blood Urea Nitrogen 13 mg/dL (9-16); Calcium 7.7 mg/dL (8.4-10.2); Carbon Dioxide 22 mmol/L (22-29); Chloride 113 mmol/L (96-108); Creatinine Clr Calc Pharmacy 89.9; Estimated Glomerular Filt Rate > 60; Glucose Random 163 mg/dL (60-115); Potassium 3.6 mmol/L (3.3-5.1); Sodium 143 mmol/L (135-145); Total Protein 5.9 g/dL (6.5-8.0)
[2022-04-23 22:53] LABS: Troponin-I High Sensitivity 3.5 ng/L (<3.5-35.0)
[2022-04-23 23:40] VITALS: BP 174/84; PULSE 68; RESP 12; O2SAT 97
== END 2022-04-23 23:58 | disposition home or self-care (01) ==
PROVIDERS: Emergency Provider Internal Medicine; PCP Internal Medicine
DX: F41.9 Anxiety disorder, unspecified (principal); R07.89 Other chest pain; E11.9 Type 2 diabetes mellitus without complications; I10 Essential (primary) hypertension; E78.5 Hyperlipidemia, unspecified; Z95.810 Presence of automatic (implantable) cardiac defibrillator; Z79.82 Long term (current) use of aspirin; Z79.899 Other long term (current) drug therapy; Z79.84 Long term (current) use of oral hypoglycemic drugs; Z87.891 Personal history of nicotine dependence
CPT/HCPCS: 36415; 80053; 84484; 85027; 93005; 99283; 99284

== ENCOUNTER 2022-06-06 10:21 | Emergency (ER) | payer OTHER, SELFPAY ==
--- NOTE | ~2022-06-06 | CT_ITS ---
EXAMINATION: CT ABDOMEN AND PELVIS WITHOUT CONTRAST CLINICAL INFORMATION: Left flank pain, question etiology COMPARISON: CT abdomen pelvis 09/21/2021 TECHNIQUE: Multidetector volumetric imaging was performed from the superior aspect of the liver through the pubic symphysis. Sagittal and coronal reformatted images were obtained on the technologist's workstation. This CT examination was performed using dose optimization techniques as appropriate, variously including the following: *Automated exposure control *Adjustment of mA and/or kV according to patient size (this includes techniques or standardized protocols for targeted exams where dose is matched to indication/reason for exam; i.e. extremities or head) *Use of iterative reconstruction technique DLP: 694 mGy-cm FINDINGS: LUNG BASES: Unremarkable. ABDOMINAL AND PELVIC WALL: Unremarkable. LIVER AND BILIARY TREE: Hypoattenuating hepatic parenchyma compatible with hepatic steatosis. GALLBLADDER: Unremarkable. PANCREAS: Unremarkable. SPLEEN: Unremarkable. ADRENAL GLANDS: Unremarkable. KIDNEYS AND URETERS: No hydronephrosis or nephrolithiasis. GASTROINTESTINAL TRACT: Small hiatal hernia. Colonic diverticulosis without evidence of diverticulitis. Post surgical changes of prior appendectomy with a residual nondilated appendiceal stump unchanged. Similar sherita appearance of the central mesentery unchanged from prior which could be seen in the setting of mesenteric panniculitis. VASCULAR: Unremarkable. LYMPH NODES/PERITONEUM: No lymphadenopathy. FREE FLUID: None. BLADDER: Similar mild intramural fat in the anterior bladder wall with similar chronic urinary bladder wall thickening. PELVIC VISCERA: Unremarkable. OSSEOUS STRUCTURES: Grade 1 anterolisthesis of L5 on S1. Multilevel degenerative disc disease. Stable left L5 pars defect. CT/CT abdomen pelvis wo IV con IMPRESSION: 1. No hydronephrosis or nephrolithiasis. 2. Hepatic steatosis. 3. Similar sherita appearance of the central mesentery unchanged from prior which could be seen in the setting of mesenteric panniculitis. 4. Similar chronic urinary bladder wall thickening consider correlation with urinalysis and symptoms of cystitis. Fleischner guidelines were followed.
[2022-06-06 10:23] VITALS: BP 163/92; PULSE 86; RESP 20; TEMP 36.2; O2SAT 98; BMI 35.4
[2022-06-06 10:45] LABS: MANUAL DIFF FLAG NO
[2022-06-06 10:51] LABS: Basophils Absolute Auto 0.1 X10*3/uL (0.0-0.2); Eosinophils Absolute Auto 0.2 X10*3/uL (0.0-0.4); Eosinophils Percent Auto 2.6 % (0-4); Hematocrit 38.4 % (42.0-52.0); Hemoglobin 12.9 g/dl (14.0-18.0); Imm Gran Abs Auto 0.07 X10*3/uL (0.00-0.03); Lymphocytes Percent Auto 14.1 % (20-40); Mean Corpuscular HGB Conc 33.6 g/dl (31.0-36.0); Mean Corpuscular Hemoglobin 29.7 pg (27.0-33.0); Mean Corpuscular Volume 88.3 fL (80.0-98.0); Mean Platelet Volume 10.9 fL (9.4-12.4); Monocytes Absolute Auto 0.4 X10*3/uL (0.1-1.2); Monocytes Percent Auto 6.3 % (2-11); Neutrophils Absolute Auto 5.2 x10*3/uL (2.0-8.3); Red Blood Count 4.35 X10*6/uL (4.60-5.80); Red Cell Distribution Width 13.1 % (11.0-16.0)
[2022-06-06 10:52] LABS: Platelet Count 99 X10*3/uL (160-400)
[2022-06-06 11:03] LABS: Anion Gap 13 (12-20); Blood Urea Nitrogen 16 mg/dL (9-16); Calcium 8.2 mg/dL (8.4-10.2); Carbon Dioxide 23 mmol/L (22-29); Chloride 109 mmol/L (96-108); Estimated Glomerular Filt Rate > 60; Glucose Random 166 mg/dL (60-115); Potassium 4.1 mmol/L (3.3-5.1); Sodium 141 mmol/L (135-145)
--- NOTE | 2022-06-06 17:05 | ED_ITS ---
HPI - Back Pain/Injury General Chief Complaint: Back Pain/Injury Stated Complaint: L flank pain rad to groin Time Seen by Provider: 06/06/22 17:04 Source: patient Mode of arrival: ambulatory Limitations: no limitations History of Present Illness HPI Narrative: Patient with chronic back pain was urine in 09/[address] scan abdomen done which shows no kidney comes here for ongoing pain since then was told that he has prostate problems. For last 2 days patient noticed dysuria frequency and hesitancy no fever no chills feels pain in the groin that is why he came to the ER patient used to be on Percocet has not taken it lately no fever no chills no nausea no vomiting Related Data Previous Rx's Medication Instructions Recorded acetaminophen 325 mg tablet 650 mg PO Q6H PRN Headache/Pain 09/22/21 Mild Scale (1-3) #0 tabs aspirin 81 mg tablet,delayed 81 mg PO DAILY #0 tabs 09/22/21 release hydroxyzine HCl 25 mg tablet 25 mg PO BEDTIME PRN Anxiety #0 09/22/21 tabs isosorbide mononitrate 30 mg 30 mg PO DAILY #0 tabs 09/22/21 tablet,extended release 24 hr levothyroxine 75 mcg tablet 75 mcg PO DAILY@0630 #0 tabs 09/22/21 lisinopril 2.5 mg tablet 2.5 mg PO DAILY #0 tabs 09/22/21 naproxen 500 mg tablet 500 mg PO BID PRN Pain, Moderate 09/22/21 (Pain Scale 4-6 #0 tabs paroxetine HCl 10 mg tablet 10 mg PO DAILY #0 tabs 09/22/21 albuterol sulfate 90 mcg/actuation 2 puff inhalation RQ4H PRN 09/28/21 aerosol inhaler Shortness Of Breath 30 days #1 inhaler gabapentin 300 mg capsule 300 mg PO BID #0 caps 09/28/21 gabapentin 300 mg capsule 300 mg PO BID 30 days #60 caps 09/28/21 gabapentin 300 mg capsule 300 mg PO DAILY PRN anxiety #0 caps 09/28/21 lidocaine 4 % topical patch 1 patch transdermal DAILY 30 days 09/28/21 (Lidocaine Pain Relief) #30 ea melatonin 3 mg tablet 6 mg PO BEDTIME #0 tabs 09/28/21 metformin 500 mg tablet 500 mg PO BIDWM 30 days #60 tabs 09/28/21 metoprolol succinate 100 mg 100 mg PO DAILY #0 tabs 09/28/21 tablet,extended release 24 hr olanzapine 2.5 mg tablet 2.5 mg PO DAILY #0 tabs 09/28/21 olanzapine 2.5 mg tablet 2.5 mg PO DAILY PRN anxiety 09/28/21 somatic preoccupation #0 tabs trazodone 100 mg tablet 100 mg PO BEDTIME #0 tabs 09/28/21 lorazepam 0.5 mg tablet (Ativan) 0.5 mg PO BEDTIME PRN anxiety #10 04/23/22 tabs cyclobenzaprine 10 mg tablet 10 mg PO Q8H #20 tabs 06/06/22 oxycodone 5 mg tablet 5 mg PO Q6H PRN pain #20 tabs 06/06/22 Allergies Allergy/AdvReac Type Severity Reaction Status Date / Time aripiprazole [From Abilify] Allergy Severe Rash Verified 04/07/22 13:32 peas Allergy Severe HIVES Verified 04/07/22 13:32 atorvastatin [From Lipitor] Allergy Intermediate Hives Verified 04/20/22 17:24 bee pollen [bee stings] AdvReac Severe Anaphylaxis Verified 04/07/22 13:32 Review of Systems Review of Systems: Yes all other systems are reviewed and are negative PMFSH Past Medical History Medical History Anxiety Artificial cardiac pacemaker Asthma Cardiac defibrillator in place COPD (chronic obstructive pulmonary disease) Depression Developmental delay, mild Diabetes GERD (gastroesophageal reflux disease) History of ETOH abuse Hyperlipidemia Hypertension Hyperthyroidism RBBB Seizure Sleep apnea Surgical History History of cardiac cath Social History Social History Household Members: Other Housing: Other Housing Other:: Sober House Do you presently have visiting nurse or other home services: No Alcohol intake: former Patient Tobacco Use Status: Former Tobacco user Quit Date: 30 years Tobacco use type: Cigarette Second Hand Smoke Exposure: No Substance Use Type: Former Substance User, Prescription Drugs and Caffiene Advance Directives: No Advance Directives Information Provided: Yes service: No Current occupational status: disabled Sexual orientation: Did not discuss. Physical Exam Vital Signs: Vital Signs: Last Vital Signs Temp 97.2 F 06/06/22 10:23 Pulse 75 06/06/22 18:57 Resp 18 06/06/22 18:57 BP 146/93 H 06/06/22 18:08 Pulse Ox 98 06/06/22 18:08 O2 Del Method 06/06/22 18:08 BMI result Body Mass Index 35.4 Appearance: Alert. Oriented X3. No acute distress. Eyes: PERRLA, No Nystagmus ENT: Pharynx normal. Oral Mucosa moist Neck: Normal inspection. Neck supple. CVS: Normal heart rate and rhythm. Pulses normal. Respiratory: No respiratory distress. Equal air entry bilateral, no wheezing/rales/rhonchi Abdomen: Soft and nontender. Bowel sounds are present, no mass palpable, L CVA tenderness Skin: Skin warm and dry. Normal skin color. Normal skin turgor. Extremities: No lower extremity edema. No calf tenderness Neuro: Oriented X 3. No motor deficit. No sensory deficit.No cerebellar signs , cranial nerves II-XII intact Medications Administered Discontinued Medications Generic Name Dose Route Start Last Admin Trade Name Freq PRN Reason Stop Dose Admin Ondansetron HCl 4 mg 06/06/22 17:12 06/06/22 18:07 Ondansetron Odt 4 Mg Tab.Rapdis TRANSLINGU 06/06/22 17:13 4 mg ONCE ONE Administration Oxycodone HCl 10 mg 06/06/22 17:12 06/06/22 18:07 Oxycodone Hcl Immed Release 5 Mg Tablet PO 06/06/22 17:13 10 mg ONCE ONE Administration Medical Decision Making Medical Decision Making [facility] Narrative: Patient with chronic left flank pain with CT scan negative today also CT scan was negative for kidney stone or any significant pathology. Urine negative lab stable will discharge patient home on pain medication and muscle relaxer cause of pain is likely musculoskeletal Differential Diagnosis Kidney stone/UTI/pyelonephritis/musculoskeletal Lab Data [facility] Lab Attestation statement: I reviewed the patient's lab results. 06/06/22 10:41 06/06/22 10:41 Labs: Lab Results 06/06/22 06/06/22 06/06/22 Range/Units 10:41 10:41 17:30 WBC 7.0 (4.8-10.8) X10*3/uL RBC 4.35 L (4.60-5.80) X10*6/uL Hgb 12.9 L (14.0-18.0) g/dl Hct 38.4 L (42.0-52.0) % MCV 88.3 (80.0-98.0) fL MCH 29.7 (27.0-33.0) pg MCHC 33.6 (31.0-36.0) g/dl RDW 13.1 (11.0-16.0) % Plt Count 99 L (160-400) X10*3/uL MPV 10.9 (9.4-12.4) fL Immature Gran % (Auto) 1.0 H (0.0-0.4) % Neut % (Auto) 75.0 H (45-73) % Lymph % (Auto) 14.1 L (20-40) % [place] % (Auto) 6.3 (2-11) % Eos % (Auto) 2.6 (0-4) % Baso % (Auto) 1.0 (0-2) % Lymph # (Auto) 1.0 L (1.2-4.9) X10*3/uL [place] # (Auto) 0.4 (0.1-1.2) X10*3/uL Eos # (Auto) 0.2 (0.0-0.4) X10*3/uL Baso # (Auto) 0.1 (0.0-0.2) X10*3/uL Abs Immat Gran (auto) 0.07 H (0.00-0.03) X10*3/uL Absolute Neuts (auto) 5.2 (2.0-8.3) x10*3/uL Absolute Nucleated RBC 0.000 (0.0-0.012) X10*3/uL Nucleated RBC % (auto) 0.0 (0.0-0.2) /100WBC Sodium 141 (135-145) mmol/L Potassium 4.1 (3.3-5.1) mmol/L Chloride 109 H (96-108) mmol/L Carbon Dioxide 23 (22-29) mmol/L Anion Gap 13 (12-20) BUN 16 (9-16) mg/dL Creatinine 1.15 (0.5-1.4) mg/dL Estim Creat Clear Calc 83.0 Estimated GFR > 60 Random Glucose 166 H (60-115) mg/dL Calcium 8.2 L D (8.4-10.2) mg/dL Urine Color Yellow Urine Appearance Clear Urine pH 5.5 (5.0-9.0) Ur Specific [place] 1.015 (1.005-1.025) Urine Protein Negative (Neg-Trace) mg/dL Urine Glucose (UA) Negative (Negative) mg/dL Urine Ketones Negative (Negative) mg/dL Urine Blood Negative (Negative) Urine Nitrite Negative (Negative) Ur Leukocyte Esterase Negative (Negative) Discharge Plan Discharge Clinical Impression: Chronic back pain Patient Disposition: Home, Self-Care Instructions: Chronic Back Pain (DC) Additional Instructions: Your CT scan is negative for kidney stone, pain is likely musculoskeletal Take pain medication and muscle relaxeras prescribed Follow with PCP Prescriptions: New cyclobenzaprine 10 mg tablet 10 mg PO Q8H Qty: 20 0RF oxycodone 5 mg tablet 5 mg PO Q6H PRN (Reason: pain) Qty: 20 0RF Rx Instructions: Partial Fill upon patient request. No Action isosorbide mononitrate 30 mg Tablet Extended Release 24 Hr 30 mg PO DAILY Qty: 0 0RF Protocol: Hold for SBP< HOLD for SBP < : 90 aspirin 81 mg Tablet,Delayed Release (Dr/Ec) 81 mg PO DAILY Qty: 0 0RF lisinopril 2.5 mg Tablet 2.5 mg PO DAILY Qty: 0 0RF Protocol: Hold for SBP< HOLD for SBP < : 90 acetaminophen 325 mg Tablet 650 mg PO Q6H PRN (Reason: Headache/Pain Mild Scale (1-3)) Qty: 0 0RF paroxetine HCl 10 mg Tablet 10 mg PO DAILY Qty: 0 0RF naproxen 500 mg Tablet 500 mg PO BID PRN (Reason: Pain, Moderate (Pain Scale 4-6) Qty: 0 0RF hydroxyzine HCl 25 mg Tablet 25 mg PO BEDTIME PRN (Reason: Anxiety) Qty: 0 0RF levothyroxine 75 mcg Tablet 75 mcg PO DAILY@0630 Qty: 0 0RF metformin 500 mg Tablet 500 mg PO BIDWM 30 Days Qty: 60 0RF lidocaine [Lidocaine Pain Relief] 4 % Adhesive Patch,Medicated 1 patch transdermal DAILY 30 Days Qty: 30 0RF Protocol: Apply to: Apply to: left lower back albuterol sulfate 90 mcg/actuation Hfa Aerosol Inhaler 2 puff inhalation RQ4H PRN (Reason: Shortness Of Breath) 30 Days Qty: 1 0RF metoprolol succinate 100 mg Tablet Extended Release 24 Hr 100 mg PO DAILY Qty: 0 0RF Protocol: Hold for SBP/HR < HOLD for SBP < : 90 HOLD for HR < : 60 olanzapine 2.5 mg Tablet 2.5 mg PO DAILY Qty: 0 0RF olanzapine 2.5 mg Tablet 2.5 mg PO DAILY PRN (Reason: anxiety somatic preoccupation ) Qty: 0 0RF trazodone 100 mg Tablet 100 mg PO BEDTIME Qty: 0 0RF gabapentin 300 mg Capsule 300 mg PO DAILY PRN (Reason: anxiety) Qty: 0 0RF gabapentin 300 mg Capsule 300 mg PO BID Qty: 0 0RF melatonin 3 mg Tablet 6 mg PO BEDTIME Qty: 0 0RF gabapentin 300 mg capsule 300 mg PO BID 30 Days Qty: 60 0RF lorazepam [Ativan] 0.5 mg tablet 0.5 mg PO BEDTIME PRN (Reason: anxiety) Qty: 10 0RF
[2022-06-06 17:44] LABS: Appearance Urine Clear; Color Urine Yellow; Glucose Urine UA Negative (Negative); Leukocyte Esterase Urine Negative (Negative); Nitrite Urine Negative (Negative); PH 5.5 (5.0-9.0); Specific Gravity - Urine 1.015 (1.005-1.025); Urine Blood Negative (Negative); Urine Ketones Negative (Negative); Urine Protein Negative (Neg-Trace)
[2022-06-06] MEDS: oxyCODONE HCl Immed Release 5 MG TABLET 10 MG PO (18:07)
[2022-06-06] MEDS: Ondansetron ODT 4 MG TAB.RAPDIS TRANSLINGU (18:07)
[2022-06-06 18:08] VITALS: BP 146/93; PULSE 76; RESP 17; O2SAT 98
[2022-06-06 18:52] VITALS: PULSE 75; RESP 18
[2022-06-06 18:57] VITALS: PULSE 75; RESP 18
--- NOTE | 2022-06-06 19:00 | PC.NURSE ---
DISCUSSED DC WITH PRIMARY RN. PT CALLED FOR RIDE AND RIDE IS ON THE WAY. PT AWAKE, ALERT AND ANSWERING QUESTIONS APPROPRIATELY. SKIN WARM AND DRY. RESP UNLABORED. DENIES N/V. REQUESTING FOOD. REPORTS PAIN DECREASED TO 7/10 +CMS, AMBULATORY IN ROOM, GAIT STEADY
== END 2022-06-06 19:00 | disposition home or self-care (01) ==
PROVIDERS: Emergency Provider Internal Medicine; PCP Internal Medicine
DX: G89.29 Other chronic pain (principal); R10.9 Unspecified abdominal pain; E11.9 Type 2 diabetes mellitus without complications; I10 Essential (primary) hypertension; E78.5 Hyperlipidemia, unspecified; Z79.82 Long term (current) use of aspirin; Z79.899 Other long term (current) drug therapy; Z79.84 Long term (current) use of oral hypoglycemic drugs; Z95.0 Presence of cardiac pacemaker
CPT/HCPCS: 36415; 74176; 80048; 81003; 85025; 99284

== ENCOUNTER 2022-07-08 05:56 | Emergency (ER) | payer OTHER, SELFPAY ==
--- NOTE | ~2022-07-08 | CT_ITS ---
EXAMINATION: CT ABDOMEN AND PELVIS WITH CONTRAST CLINICAL INFORMATION: Pain, vomiting and elevated lipase. COMPARISON: None available. TECHNIQUE: Multidetector volumetric images were obtained from the superior aspect of the liver through the pubic symphysis following administration 85 mL of Omnipaque 350 intravenous contrast. Sagittal and coronal reformatted images were obtained on the technologist's workstation. Oral contrast: No This CT examination was performed using dose optimization techniques as appropriate, variously including the following: *Automated exposure control *Adjustment of mA and/or kV according to patient size (this includes techniques or standardized protocols for targeted exams where dose is matched to indication/reason for exam; i.e. extremities or head) *Use of iterative reconstruction technique DLP: 783 mGy-cm FINDINGS: LUNG BASES: The lung bases are clear. Heart size is normal. There are pacer electrodes in right atrium and right ventricle. LIVER, GALLBLADDER, AND BILIARY TREE: The liver is normal in size, shape, and attenuation. No focal hepatic lesion or biliary ductal dilatation is present. The gallbladder is unremarkable with no evidence of radiopaque gallstones, gallbladder wall thickening, or obvious pericholecystic inflammatory changes. PANCREAS: Unremarkable. SPLEEN: Unremarkable. ADRENAL GLANDS: Unremarkable. KIDNEYS AND URETERS: The kidneys are normal in size, shape, and attenuation. No hydronephrosis, hydroureter, or calculi seen. No perinephric stranding. BLADDER: Unremarkable. GASTROINTESTINAL TRACT: There is scattered stool, gas and diverticuli seen throughout the colon without any evidence of distention or diverticulitis. The small bowel loops are normal caliber. Appendix is normal caliber with a small 5 mm appendix on coronal image 52/6 no inflammatory process seen. ABDOMINAL WALL: No significant hernia is appreciated. LYMPH NODES: No abnormal size lymph nodes seen. VASCULAR: Unremarkable. PELVIC VISCERA: The prostate gland is mildly enlarged with extension into the base of bladder. OSSEOUS STRUCTURES: There is grade 1 anterolisthesis L5 over S1. Mild ventral spondylosis seen throughout lumbar spine sparing the L4-L5 disc level. Vacuum disc phenomena and moderate ventral spurring with loss of disc height L1-L2 disc level is noted. No lytic or sclerotic process. CT/CT abdomen pelvis w IV con IMPRESSION: 1. No acute intra-abdominal process seen. 2. Scattered colonic diverticulosis without diverticulitis. 3. Mild prostate enlargement extending into the base of bladder. Fleischner guidelines were followed.
--- NOTE | ~2022-07-08 | XR_ITS ---
EXAMINATION: XR CHEST CLINICAL INFORMATION: Chest pain and shortness of breath COMPARISON: 04/20/2022 TECHNIQUE: Frontal view of the chest was obtained. FINDINGS: Normal symmetric lung volumes. No parenchymal consolidation. No pleural effusion. No pneumothorax. Cardiomediastinal silhouette and pulmonary vascularity are within normal limits. No acute osseous abnormalities. XR/XR chest 1V IMPRESSION: No acute findings
--- NOTE | 2022-07-08 05:57 | ECG_ITS ---
Test Reason : chest pain Blood Pressure : / mmHG Vent. Rate : 079 BPM Atrial Rate : 079 BPM P-R Int : 180 ms QRS Dur : 180 ms QT Int : 436 ms P-R-T Axes : 054 113 044 degrees QTc Int : 499 ms Normal sinus rhythm Right bundle branch block Left posterior fascicular block Abnormal ECG When compared with ECG of 23-APR-2022 21:55, SC interval has decreased Referred By: Generic ED Physician Electronically Signed By:Bryan Juarez
[2022-07-08 06:07] VITALS: BP 116/87; PULSE 85; RESP 16; O2SAT 97; BMI 34.0
[2022-07-08 06:14] LABS: Hematocrit 38.5 % (42.0-52.0); Hemoglobin 12.8 g/dl (14.0-18.0); Imm Gran Abs Auto 0.06 X10*3/uL (0.00-0.03); Imm Gran Pct Auto 0.9 % (0.0-0.4); Mean Corpuscular HGB Conc 33.2 g/dl (31.0-36.0); PLT CLUMP 1; Red Cell Distribution Width 12.8 % (11.0-16.0); SCAN SMEAR FLAG 1
[2022-07-08 06:16] LABS: Basophils Absolute Auto 0.1 X10*3/uL (0.0-0.2); Eosinophils Absolute Auto 0.5 X10*3/uL (0.0-0.4); Eosinophils Percent Auto 6.7 % (0-4); Lymphocytes Absolute Auto 1.4 X10*3/uL (1.2-4.9); Lymphocytes Percent Auto 20.6 % (20-40); Mean Corpuscular Hemoglobin 29.4 pg (27.0-33.0); Mean Corpuscular Volume 88.3 fL (80.0-98.0); Mean Platelet Volume 11.4 fL (9.4-12.4); Monocytes Absolute Auto 0.7 X10*3/uL (0.1-1.2); Monocytes Percent Auto 10.5 % (2-11); Neutrophils Percent Auto 60.3 % (45-73); Red Blood Count 4.36 X10*6/uL (4.60-5.80)
[2022-07-08 06:17] LABS: MANUAL DIFF FLAG NO; Platelet Count 101 X10*3/uL (160-400); White Blood Count 6.7 X10*3/uL (4.8-10.8)
[2022-07-08 06:23] LABS: D Dimer High Sensitivity < 150 NG/ML
[2022-07-08 06:30] VITALS: PULSE 91
[2022-07-08 06:31] LABS: Alanine Aminotransferase 15 U/L (0-40); Albumin Level 4.1 g/dL (3.5-5.0); Alkaline Phosphatase 87 U/L (39-117); Anion Gap 11 (12-20); Aspartate Amino Transferase 13 U/L (5-37); Bilirubin Direct 0.2 mg/dL (0.0-0.5); Bilirubin Total 0.8 mg/dL (0.0-1.0); Blood Urea Nitrogen 11 mg/dL (9-16); Calcium 7.9 mg/dL (8.4-10.2); Carbon Dioxide 26 mmol/L (22-29); Chloride 107 mmol/L (96-108); Creatinine Clr Calc Pharmacy 74.8; Estimated Glomerular Filt Rate 59; Glucose Random 152 mg/dL (60-115); Lipase 153 U/L (8-78); Potassium 3.8 mmol/L (3.3-5.1); Sodium 140 mmol/L (135-145); Total Protein 6.6 g/dL (6.5-8.0)
[2022-07-08 06:42] LABS: Troponin-I High Sensitivity < 2.7 ng/L (<3.5-35.0)
--- NOTE | 2022-07-08 07:47 | PC.NURSE ---
Alert and oriented, resp even and unlabored. Call phone at [employer] secretary desk charging. Ambulated to bathroom with steady gait.
[2022-07-08 07:54] VITALS: BP 168/78; PULSE 80; RESP 14; TEMP 36.4; O2SAT 100
--- NOTE | 2022-07-08 08:21 | ED.CHESTPAIN ---
HPI - Chest Pain General Chief Complaint: Chest Pain Stated Complaint: Chest pain Time Seen by Provider: 07/08/22 08:01 Source: patient Mode of arrival: ambulatory Limitations: no limitations History of Present Illness HPI narrative: 62 yo male with history of hx Tetralogy of Fallot s/p surgical repair in 1969, trifascicular block s/p AICD 2008 with generator change in 2017, pAF, obesity, HTN, HLD, asthma, PONCE on BiPAP, GERD, DM2, hypothyroidism, possible seizure disorder, bipolar disorder, somatoform disorder, polysubstance abuse, and cognitive delay who presents to the ER for evaluation of left sided chest pain that started yesterday while he was at an AA meeting. He states the pain is in the left side of the chest and radiates down the left arm. He collapsed at the AA meeting yesterday when it came on. No LOC. He went to [facility] ER where he sat for 16 hours without being seen. He took an Uber here where he has ongoing left sided chest pains, nausea, vomiting and epigastric pain. He states the pain in the left chest is also shooting down the left leg and making it numb. MD complaint: chest pain and other (abd pain, N/V/D) Pertinent past history: coronary artery disease Onset (ago): day(s) (1) Timing of current episode: constant Prior episodes: Yes Onset: during rest Pain location: left chest Pain radiation: left arm and abdomen Severity: moderate Pain scale (0-10): 7 Quality: sharp Relieving factors: nothing Exacerbating factors: nothing Associated symptoms: nausea, vomiting and diaphoresis Treatment prior to arrival: none Risk Factors Coronary artery disease risk factors: hypertension Thoracic aortic dissection risk factors: none Related Data Previous Rx's Medication Instructions Recorded acetaminophen 325 mg tablet 650 mg PO Q6H PRN Headache/Pain 09/22/21 Mild Scale (1-3) #0 tabs aspirin 81 mg tablet,delayed 81 mg PO DAILY #0 tabs 09/22/21 release hydroxyzine HCl 25 mg tablet 25 mg PO BEDTIME PRN Anxiety #0 09/22/21 tabs isosorbide mononitrate 30 mg 30 mg PO DAILY #0 tabs 09/22/21 tablet,extended release 24 hr levothyroxine 75 mcg tablet 75 mcg PO DAILY@0630 #0 tabs 09/22/21 lisinopril 2.5 mg tablet 2.5 mg PO DAILY #0 tabs 09/22/21 naproxen 500 mg tablet 500 mg PO BID PRN Pain, Moderate 09/22/21 (Pain Scale 4-6 #0 tabs paroxetine HCl 10 mg tablet 10 mg PO DAILY #0 tabs 09/22/21 albuterol sulfate 90 mcg/actuation 2 puff inhalation RQ4H PRN 09/28/21 aerosol inhaler Shortness Of Breath 30 days #1 inhaler gabapentin 300 mg capsule 300 mg PO BID #0 caps 09/28/21 gabapentin 300 mg capsule 300 mg PO BID 30 days #60 caps 09/28/21 gabapentin 300 mg capsule 300 mg PO DAILY PRN anxiety #0 caps 09/28/21 lidocaine 4 % topical patch 1 patch transdermal DAILY 30 days 09/28/21 (Lidocaine Pain Relief) #30 ea melatonin 3 mg tablet 6 mg PO BEDTIME #0 tabs 09/28/21 metformin 500 mg tablet 500 mg PO BIDWM 30 days #60 tabs 09/28/21 metoprolol succinate 100 mg 100 mg PO DAILY #0 tabs 09/28/21 tablet,extended release 24 hr olanzapine 2.5 mg tablet 2.5 mg PO DAILY #0 tabs 09/28/21 olanzapine 2.5 mg tablet 2.5 mg PO DAILY PRN anxiety 09/28/21 somatic preoccupation #0 tabs trazodone 100 mg tablet 100 mg PO BEDTIME #0 tabs 09/28/21 lorazepam 0.5 mg tablet (Ativan) 0.5 mg PO BEDTIME PRN anxiety #10 04/23/22 tabs cyclobenzaprine 10 mg tablet 10 mg PO Q8H #20 tabs 06/06/22 oxycodone 5 mg tablet 5 mg PO Q6H PRN pain #20 tabs 06/06/22 Allergies Allergy/AdvReac Type Severity Reaction Status Date / Time aripiprazole [From Abilify] Allergy Severe Rash Verified 04/07/22 13:32 peas Allergy Severe HIVES Verified 04/07/22 13:32 atorvastatin [From Lipitor] Allergy Intermediate Hives Verified 04/20/22 17:24 bee pollen [bee stings] AdvReac Severe Anaphylaxis Verified 04/07/22 13:32 Review of Systems Review of Systems: Yes all other systems are reviewed and are negative PMFSH Past Medical History Medical History Anxiety Artificial cardiac pacemaker Asthma Cardiac defibrillator in place COPD (chronic obstructive pulmonary disease) Depression Developmental delay, mild Diabetes GERD (gastroesophageal reflux disease) History of ETOH abuse Hyperlipidemia Hypertension Hyperthyroidism RBBB Seizure Sleep apnea Surgical History History of cardiac cath Social History Social History Household Members: Other Housing: Other Housing Other:: Sober House Do you presently have visiting nurse or other home services: No Alcohol intake: former Patient Tobacco Use Status: Former Tobacco user Quit Date: 30 years Tobacco use type: Cigarette Smoked in Last 30 Days: No Second Hand Smoke Exposure: No Use of substances other than those prescribed or required for medical reasons: No Substance Use Type: Former Substance User, Prescription Drugs and Caffiene Advance Directives: No Advance Directives Information Provided: Yes service: No Current occupational status: disabled Sexual orientation: Did not discuss. Physical Exam Vital Signs: Vital Signs: Last Vital Signs Temp 98.1 F 07/08/22 10:55 Pulse 82 07/08/22 10:55 Resp 14 07/08/22 10:55 BP 158/69 H 07/08/22 10:55 Pulse Ox 99 07/08/22 10:55 O2 Del Method Room Air 07/08/22 10:55 BMI result Body Mass Index 34.0 Appearance: Alert. Oriented X3. diaphoretic, anxious Head: normocephalic, atraumatic. Eyes: Pupils equal, round and reactive to light. ENT: Pharynx normal. No tonsillar swelling or exudate. Neck: Normal inspection. Neck supple. CVS: Normal heart rate and rhythm. Pulses normal. left sided chest wall tenderness throughtout Respiratory: No respiratory distress. Breath sounds normal. Abdomen: Soft with epigastric tenderness with guarding, no rebound, normal active +BS x4 Skin: Skin warm and dry. Normal skin color. Normal skin turgor. No rashes. Extremities: No lower extremity edema. No joint swelling. left arm tenderness throughout Neuro/psych: Oriented X 3. No motor deficit. No sensory deficit. CN II-XII intact. Normal speech and cognition. Course Reevaluation(s) Reevaluation #1: feeling better after morphine. anxious. would like to stay overnight. explained that his workup is normal, which is reassuring. he then stated he wants to go home and will call for his ride. encouraged to f/u with his PCP Medications Administered Discontinued Medications Generic Name Dose Route Start Last Admin Trade Name Sancho PRN Reason Stop Dose Admin Acetaminophen 975 mg 07/08/22 10:39 07/08/22 10:58 Acetaminophen 325 Mg Tablet PO 07/08/22 10:40 975 mg ONCE ONE Administration Sodium Chloride 1,000 mls @ 999 mls/hr 07/08/22 08:30 07/08/22 09:08 Ns IV 07/08/22 09:30 999 mls/hr .Q1H1M RADHA Administration Iohexol 85 ml 07/08/22 09:12 07/08/22 09:13 Iohexol 350 Mg/Ml 100 Ml Infus..Btl IV 07/08/22 09:13 85 ml ONCE ONE Administration Morphine Sulfate 4 mg 07/08/22 08:17 07/08/22 09:07 Morphine Sulfate 4 Mg/Ml Cartridge IVPUSH 07/08/22 08:18 4 mg ONCE ONE Administration Protocol Ondansetron HCl 4 mg 07/08/22 08:17 07/08/22 09:08 Ondansetron Hcl 4 Mg/2 Ml Vial IVPUSH 07/08/22 08:18 4 mg ONCE ONE Administration Medical Decision Making Medical Decision Making MDM Narrative: 62 yo male with hx Tetralogy of Fallot s/p surgical repair in 1970, trifascicular block s/p AICD 2008 with generator change in 2016, pAF, obesity, HTN, HLD, asthma, PONCE on BiPAP, GERD, DM2, hypothyroidism, possible seizure disorder, bipolar disorder, somatoform disorder, polysubstance abuse, and cognitive delay presenting to the ER for evaluation of constant left sided chest pains that started yesterday along with many other symptoms including left arm and leg pain, abdominal pain, N/V/D. His troponin is negative x2. DDIMER negative. Pain improved with morphine and tylenol. CT scan abd done due to epigastric tenderness and elevated lipase but it is normal. he is feeling better. he has had several presentations for similar episodes. comfortable with discharge home, plan to f/u with PCP. Differential Diagnosis Differential Diagnoses: The differential diagnosis associated with the presentation includes ACS, PE, anxiety, costochondritis, anxiety, panic attack, dissection, pancreatitis, gastroeneritis Admission/Observation Consideration of admission/observation: Escalation of care including admission/observation considered chest pain w/ radiation to left arm, however patient has had this presentation in the past several times. his negative trop x2 and negative ddimer are very reassuring against any life threatening causes of chest pain Lab Data MDM Lab Attestation statement: I reviewed the patient's lab results. 07/08/22 06:07 07/08/22 06:07 Labs: Lab Results 07/08/22 07/08/22 07/08/22 Range/Units 06:07 06:07 06:07 WBC 6.7 (4.8-10.8) X10*3/uL RBC 4.36 L (4.60-5.80) X10*6/uL Hgb 12.8 L (14.0-18.0) g/dl Hct 38.5 L (42.0-52.0) % MCV 88.3 (80.0-98.0) fL MCH 29.4 (27.0-33.0) pg MCHC 33.2 (31.0-36.0) g/dl RDW 12.8 (11.0-16.0) % Plt Count 101 L (160-400) X10*3/uL MPV 11.4 (9.4-12.4) fL Immature Gran % (Auto) 0.9 H (0.0-0.4) % Neut % (Auto) 60.3 (45-73) % Lymph % (Auto) 20.6 (20-40) % [place] % (Auto) 10.5 (2-11) % Eos % (Auto) 6.7 H (0-4) % Baso % (Auto) 1.0 (0-2) % Lymph # (Auto) 1.4 (1.2-4.9) X10*3/uL [place] # (Auto) 0.7 (0.1-1.2) X10*3/uL Eos # (Auto) 0.5 H (0.0-0.4) X10*3/uL Baso # (Auto) 0.1 (0.0-0.2) X10*3/uL Abs Immat Gran (auto) 0.06 H (0.00-0.03) X10*3/uL Absolute Neuts (auto) 4.0 (2.0-8.3) x10*3/uL Absolute Nucleated RBC 0.000 (0.0-0.012) X10*3/uL Nucleated RBC % (auto) 0.0 (0.0-0.2) /100WBC D-Dimer High Sensitivty < 150 NG/ML Sodium 140 (135-145) mmol/L Potassium 3.8 (3.3-5.1) mmol/L Chloride 107 (96-108) mmol/L Carbon Dioxide 26 (22-29) mmol/L Anion Gap 11 L (12-20) BUN 11 (9-16) mg/dL Creatinine 1.25 (0.5-1.4) mg/dL Estim Creat Clear Calc 74.8 Estimated GFR 59 Random Glucose 152 H (60-115) mg/dL Calcium 7.9 L (8.4-10.2) mg/dL Total Bilirubin 0.8 (0.0-1.0) mg/dL Direct Bilirubin 0.2 (0.0-0.5) mg/dL AST 13 (5-37) U/L ALT 15 (0-40) U/L Alkaline Phosphatase 87 (39-117) U/L Troponin I High Sens (<3.5-35.0) ng/L Total Protein 6.6 (6.5-8.0) g/dL Albumin 4.1 (3.5-5.0) g/dL Lipase 153 H (8-78) U/L 07/08/22 07/08/22 Range/Units 06:07 09:07 WBC (4.8-10.8) X10*3/uL RBC (4.60-5.80) X10*6/uL Hgb (14.0-18.0) g/dl Hct (42.0-52.0) % MCV (80.0-98.0) fL MCH (27.0-33.0) pg MCHC (31.0-36.0) g/dl RDW (11.0-16.0) % Plt Count (160-400) X10*3/uL MPV (9.4-12.4) fL Immature Gran % (Auto) (0.0-0.4) % Neut % (Auto) (45-73) % Lymph % (Auto) (20-40) % [place] % (Auto) (2-11) % Eos % (Auto) (0-4) % Baso % (Auto) (0-2) % Lymph # (Auto) (1.2-4.9) X10*3/uL [place] # (Auto) (0.1-1.2) X10*3/uL Eos # (Auto) (0.0-0.4) X10*3/uL Baso # (Auto) (0.0-0.2) X10*3/uL Abs Immat Gran (auto) (0.00-0.03) X10*3/uL Absolute Neuts (auto) (2.0-8.3) x10*3/uL Absolute Nucleated RBC (0.0-0.012) X10*3/uL Nucleated RBC % (auto) (0.0-0.2) /100WBC D-Dimer High Sensitivty NG/ML Sodium (135-145) mmol/L Potassium (3.3-5.1) mmol/L Chloride (96-108) mmol/L Carbon Dioxide (22-29) mmol/L Anion Gap (12-20) BUN (9-16) mg/dL Creatinine (0.5-1.4) mg/dL Estim Creat Clear Calc Estimated GFR Random Glucose (60-115) mg/dL Calcium (8.4-10.2) mg/dL Total Bilirubin (0.0-1.0) mg/dL Direct Bilirubin (0.0-0.5) mg/dL AST (5-37) U/L ALT (0-40) U/L Alkaline Phosphatase (39-117) U/L Troponin I High Sens < 2.7 < 2.7 (<3.5-35.0) ng/L Total Protein (6.5-8.0) g/dL Albumin (3.5-5.0) g/dL Lipase (8-78) U/L Independent Interpretation I performed an independent interpretation of an: EKG and CT Scan Interpretation: normal sinus rhythm, RBBB, HR 79 bpm, RBBB similar to prior CT without acute abnormality - agree w/ radiology read Radiology Impression Discussion of test interpretation with radiology: I have reviewed the radiologist's reading. Radiologist Impression: CT/CT abdomen pelvis w IV con IMPRESSION: 1.? No acute intra-abdominal process seen. 2.? Scattered colonic diverticulosis without diverticulitis. 3.? Mild prostate enlargement extending into the base of bladder. ? External Record Review External record reviewed: Office record, Outpatient record, Prior outpatient labs and Prior outpatient radiology Prescription Management I considered prescription management with: Pain Medication Chronic Conditions Patient?s care impacted by: Other (etoh abuse) Scores Heart Score History: -0- slightly suspicious ECG: -1- non specific repolarization disturbance Age: -1- >45 - <65 Risk factory: -1- 1 or 2 risk factors Troponin: -0- < or = normal limit Score: 3 Risk: 1.7% Critical Care Time Critical Care Time Critical Care Time: No Discharge Plan Discharge Clinical Impression: Chest pain Patient Disposition: Home, Self-Care Instructions: Chest Pain (DC) Additional Instructions: Your workup today was normal. :) Your heart enzyme was negative two times. Your CT scan was normal. Follow up with your doctor and your learning operations specialist. If you develop new or worsening symptoms call 911 or come back to the ER for further evaluation. Prescriptions: No Action isosorbide mononitrate 30 mg Tablet Extended Release 24 Hr 30 mg PO DAILY Qty: 0 0RF Protocol: Hold for SBP< HOLD for SBP < : 90 aspirin 81 mg Tablet,Delayed Release (Dr/Ec) 81 mg PO DAILY Qty: 0 0RF lisinopril 2.5 mg Tablet 2.5 mg PO DAILY Qty: 0 0RF Protocol: Hold for SBP< HOLD for SBP < : 90 acetaminophen 325 mg Tablet 650 mg PO Q6H PRN (Reason: Headache/Pain Mild Scale (1-3)) Qty: 0 0RF paroxetine HCl 10 mg Tablet 10 mg PO DAILY Qty: 0 0RF naproxen 500 mg Tablet 500 mg PO BID PRN (Reason: Pain, Moderate (Pain Scale 4-6) Qty: 0 0RF hydroxyzine HCl 25 mg Tablet 25 mg PO BEDTIME PRN (Reason: Anxiety) Qty: 0 0RF levothyroxine 75 mcg Tablet 75 mcg PO DAILY@0630 Qty: 0 0RF metformin 500 mg Tablet 500 mg PO BIDWM 30 Days Qty: 60 0RF lidocaine [Lidocaine Pain Relief] 4 % Adhesive Patch,Medicated 1 patch transdermal DAILY 30 Days Qty: 30 0RF Protocol: Apply to: Apply to: left lower back albuterol sulfate 90 mcg/actuation Hfa Aerosol Inhaler 2 puff inhalation RQ4H PRN (Reason: Shortness Of Breath) 30 Days Qty: 1 0RF metoprolol succinate 100 mg Tablet Extended Release 24 Hr 100 mg PO DAILY Qty: 0 0RF Protocol: Hold for SBP/HR < HOLD for SBP < : 90 HOLD for HR < : 60 olanzapine 2.5 mg Tablet 2.5 mg PO DAILY Qty: 0 0RF olanzapine 2.5 mg Tablet 2.5 mg PO DAILY PRN (Reason: anxiety somatic preoccupation ) Qty: 0 0RF trazodone 100 mg Tablet 100 mg PO BEDTIME Qty: 0 0RF gabapentin 300 mg Capsule 300 mg PO DAILY PRN (Reason: anxiety) Qty: 0 0RF gabapentin 300 mg Capsule 300 mg PO BID Qty: 0 0RF melatonin 3 mg Tablet 6 mg PO BEDTIME Qty: 0 0RF gabapentin 300 mg capsule 300 mg PO BID 30 Days Qty: 60 0RF lorazepam [Ativan] 0.5 mg tablet 0.5 mg PO BEDTIME PRN (Reason: anxiety) Qty: 10 0RF cyclobenzaprine 10 mg tablet 10 mg PO Q8H Qty: 20 0RF oxycodone 5 mg tablet 5 mg PO Q6H PRN (Reason: pain) Qty: 20 0RF Rx Instructions: Partial Fill upon patient request. Interventions: ED Discharge Assessment Last Done: 07/08/22 11:01 Discharge Date/Time: 07/08/22 11:02
[2022-07-08] MEDS: Morphine Sulfate 4 MG/ML CARTRIDGE IVPUSH (09:07)
[2022-07-08] MEDS: ondansetron HCL 4 MG/2 ML VIAL IVPUSH (09:08)
[2022-07-08] MEDS: 0.9 % Sodium Chloride 1,000 ML 999 ML IV (09:08)
[2022-07-08] MEDS: iohexoL 350 MG/ML 100 ML INFUS..BTL 85 ML IV (09:13)
[2022-07-08 09:39] LABS: Troponin-I High Sensitivity < 2.7 ng/L (<3.5-35.0)
[2022-07-08 10:55] VITALS: BP 158/69; PULSE 82; RESP 14; TEMP 36.7; O2SAT 99
[2022-07-08] MEDS: Acetaminophen 325 MG TABLET 975 MG PO (10:58)
== END 2022-07-08 11:02 | disposition home or self-care (01) ==
PROVIDERS: Physician Assistant; Emergency Provider Internal Medicine
DX: R07.89 Other chest pain (principal); R10.2 Pelvic and perineal pain; I10 Essential (primary) hypertension; M79.602 Pain in left arm; I25.10 Atherosclerotic heart disease of native coronary artery without angina pectoris; Z87.891 Personal history of nicotine dependence; Z79.899 Other long term (current) drug therapy
CPT/HCPCS: 36415; 71045; 74177; 80048; 80076; 83690; 84484; 85025; 85379; 93005; 96374; 96375; 99285; J2270; J2405; Q9967

== ENCOUNTER 2022-07-11 11:41 | Emergency (ER) | payer OTHER, SELFPAY ==
--- NOTE | ~2022-07-11 | CT_ITS ---
EXAMINATION: Head and cervical spine CT without IV contrast CLINICAL INFORMATION: Fall COMPARISON: Previous CT scans October 2021 TECHNIQUE: Axial images through the head and cervical spine without IV contrast. Sagittal and coronal reconstructions on the technologist workstation were performed. This CT examination was performed using dose optimization techniques as appropriate, variously including the following: *Automated exposure control *Adjustment of mA and/or kV according to patient size (this includes techniques or standardized protocols for targeted exams where dose is matched to indication/reason for exam; i.e. extremities or head) *Use of iterative reconstruction technique DLP 182 4 mg/cm. FINDINGS: Head CT: Exam is limited due to motion artifact. There is an area of increased attenuation in the periventricular white matter adjacent to the frontal horn of the left lateral ventricle. This is similar to previous exams most recent May and October 2021 and probably represents an area of calcification. There is no evidence of an extra-axial collection. There is no evidence of intra-axial or extra-axial hemorrhage. The ventricles and extra-axial CSF spaces are appropriate. Warner-white matter differentiation is normal. No mass, mass effect or infarct is seen. Review of bone windows demonstrates no skull fracture. There is a small polyp or cyst in the left maxillary sinus. There is partial soft tissue opacification of the right mastoid air cells. This is similar to previous exams. Cervical spine CT: Exam is limited due to patient positioning and motion. The head is tilted to the left. There is curvature of the lower cervical and upper thoracic spine to the right. The left temporal bone is not completely included in the [id number]. No fracture or dislocation. There is severe multilevel degenerative spondylosis with large anterior vertebral body bridging bony osteophytes from C3-C4 to C7-T1. There are severe degenerative changes at the C1 dens articulation. There is bilateral multilevel facet arthritis. Disc spaces are normal. Prevertebral soft tissues are normal. Visualized lung apices are clear. There is a left clavian pacemaker lead. CT/CT cervical spine wo IV con IMPRESSION: Head CT: Limited exam due to motion artifact. Stable appearance to the small focus of increased attenuation in the periventricular white matter of the left frontal lobe adjacent to the frontal horn of the left lateral ventricle from prior exams probably representing area of calcification. Cervical spine CT: Limited due to patient position and motion. Severe multilevel degenerative spondylosis.
--- NOTE | ~2022-07-11 | CT_ITS ---
EXAMINATION: Head and cervical spine CT without IV contrast CLINICAL INFORMATION: Fall COMPARISON: Previous CT scans October 2021 TECHNIQUE: Axial images through the head and cervical spine without IV contrast. Sagittal and coronal reconstructions on the technologist workstation were performed. This CT examination was performed using dose optimization techniques as appropriate, variously including the following: *Automated exposure control *Adjustment of mA and/or kV according to patient size (this includes techniques or standardized protocols for targeted exams where dose is matched to indication/reason for exam; i.e. extremities or head) *Use of iterative reconstruction technique DLP 182 4 mg/cm. FINDINGS: Head CT: Exam is limited due to motion artifact. There is an area of increased attenuation in the periventricular white matter adjacent to the frontal horn of the left lateral ventricle. This is similar to previous exams most recent May and October 2021 and probably represents an area of calcification. There is no evidence of an extra-axial collection. There is no evidence of intra-axial or extra-axial hemorrhage. The ventricles and extra-axial CSF spaces are appropriate. Warner-white matter differentiation is normal. No mass, mass effect or infarct is seen. Review of bone windows demonstrates no skull fracture. There is a small polyp or cyst in the left maxillary sinus. There is partial soft tissue opacification of the right mastoid air cells. This is similar to previous exams. Cervical spine CT: Exam is limited due to patient positioning and motion. The head is tilted to the left. There is curvature of the lower cervical and upper thoracic spine to the right. The left temporal bone is not completely included in the [id number]. No fracture or dislocation. There is severe multilevel degenerative spondylosis with large anterior vertebral body bridging bony osteophytes from C3-C4 to C7-T1. There are severe degenerative changes at the C1 dens articulation. There is bilateral multilevel facet arthritis. Disc spaces are normal. Prevertebral soft tissues are normal. Visualized lung apices are clear. There is a left clavian pacemaker lead. CT/CT head/brain wo IV con IMPRESSION: Head CT: Limited exam due to motion artifact. Stable appearance to the small focus of increased attenuation in the periventricular white matter of the left frontal lobe adjacent to the frontal horn of the left lateral ventricle from prior exams probably representing area of calcification. Cervical spine CT: Limited due to patient position and motion. Severe multilevel degenerative spondylosis.
[2022-07-11 11:47] VITALS: BP 110/60; PULSE 75
--- NOTE | 2022-07-11 11:49 | ECG_ITS ---
Test Reason : shouple Blood Pressure : / mmHG Vent. Rate : 073 BPM Atrial Rate : 073 BPM P-R Int : 222 ms QRS Dur : 180 ms QT Int : 460 ms P-R-T Axes : 075 109 071 degrees QTc Int : 506 ms Sinus rhythm with 1st degree A-V block Right bundle branch block Left posterior fascicular block Abnormal ECG When compared with ECG of 08-JUL-2022 05:58, TX interval has increased Referred By: Paty Villatoro Electronically Signed By:PATO ROMAN MD
[2022-07-11 11:55] VITALS: BP 115/86; PULSE 83; RESP 16; TEMP 37.1; O2SAT 96; BMI 39.4
--- NOTE | 2022-07-11 12:02 | ECG_ITS ---
Test Reason : CHEST PAIN Blood Pressure : / mmHG Vent. Rate : 075 BPM Atrial Rate : 075 BPM P-R Int : 240 ms QRS Dur : 160 ms QT Int : 438 ms P-R-T Axes : 076 109 073 degrees QTc Int : 489 ms Sinus rhythm with 1st degree A-V block Right bundle branch block Left posterior fascicular block Abnormal ECG When compared to the previous EKG of No significant changes seen Referred By: Paty Villatoro Electronically Signed By:PATO ROMAN MD
--- NOTE | 2022-07-11 12:06 | ED.CHESTPAIN ---
HPI - Chest Pain General Chief Complaint: Chest Pain Stated Complaint: CP,FROM PROGRAM PER EMS Time Seen by Provider: 07/11/22 11:45 Source: patient and RN notes reviewed Mode of arrival: EMS Limitations: no limitations History of Present Illness HPI narrative: This is a 62 [id number] with history of hx Tetralogy of Fallot s/p surgical repair in 1969, trifascicular block s/p AICD 2008 with generator change in 2016, pAF on Xarelto, obesity, HTN, HLD, asthma, PONCE on BiPAP, GERD, DM2, hypothyroidism, possible seizure disorder, bipolar disorder, somatoform disorder, polysubstance abuse, and cognitive delay who presents to the emergency department via EMS for evaluation of left-sided chest pain and headache status post fall which occurred today. Patient reports that while he was sitting in a meeting today he suddenly developed left-sided chest pain and fell backwards striking his posterior head on the concrete floor. He describes his chest pain as sharp, and radiates into his left arm. He also admits to having the chest pain radiating down into his left leg. He denies LOC. he reports that he has had nausea, headaches, and continued left-sided chest pain. EN route patient was given nitroglycerin, aspirin, and Zofran which have provided him with some relief. Denies weakness, blurred vision, palpitations, fevers, chills, vomiting or diarrhea. Patient's information systems security specialist is Dr. Nix, located at [facility], last seen last month was told everything was ok . Last stress test and echocardiogram was 1 year ago and was told that it was normal. No other complaints or concerns at this time. MD complaint: chest pain Onset (ago): minute(s) Timing of current episode: constant Prior episodes: Yes Onset: during rest Pain location: left chest Pain radiation: left arm and left shoulder Severity: moderate Quality: aching Relieving factors: nitroglycerin Exacerbating factors: nothing Associated symptoms: nausea Treatment prior to arrival: aspirin and nitroglycerin Risk Factors Coronary artery disease risk factors: hypertension Thoracic aortic dissection risk factors: none Related Data Previous Rx's Medication Instructions Recorded acetaminophen 325 mg tablet 650 mg PO Q6H PRN Headache/Pain 09/22/21 Mild Scale (1-3) #0 tabs aspirin 81 mg tablet,delayed 81 mg PO DAILY #0 tabs 09/22/21 release hydroxyzine HCl 25 mg tablet 25 mg PO BEDTIME PRN Anxiety #0 09/22/21 tabs isosorbide mononitrate 30 mg 30 mg PO DAILY #0 tabs 09/22/21 tablet,extended release 24 hr levothyroxine 75 mcg tablet 75 mcg PO DAILY@0630 #0 tabs 09/22/21 lisinopril 2.5 mg tablet 2.5 mg PO DAILY #0 tabs 09/22/21 naproxen 500 mg tablet 500 mg PO BID PRN Pain, Moderate 09/22/21 (Pain Scale 4-6 #0 tabs paroxetine HCl 10 mg tablet 10 mg PO DAILY #0 tabs 09/22/21 albuterol sulfate 90 mcg/actuation 2 puff inhalation RQ4H PRN 09/28/21 aerosol inhaler Shortness Of Breath 30 days #1 inhaler gabapentin 300 mg capsule 300 mg PO BID #0 caps 09/28/21 gabapentin 300 mg capsule 300 mg PO BID 30 days #60 caps 09/28/21 gabapentin 300 mg capsule 300 mg PO DAILY PRN anxiety #0 caps 09/28/21 lidocaine 4 % topical patch 1 patch transdermal DAILY 30 days 09/28/21 (Lidocaine Pain Relief) #30 ea melatonin 3 mg tablet 6 mg PO BEDTIME #0 tabs 09/28/21 metformin 500 mg tablet 500 mg PO BIDWM 30 days #60 tabs 09/28/21 metoprolol succinate 100 mg 100 mg PO DAILY #0 tabs 09/28/21 tablet,extended release 24 hr olanzapine 2.5 mg tablet 2.5 mg PO DAILY #0 tabs 09/28/21 olanzapine 2.5 mg tablet 2.5 mg PO DAILY PRN anxiety 09/28/21 somatic preoccupation #0 tabs trazodone 100 mg tablet 100 mg PO BEDTIME #0 tabs 09/28/21 lorazepam 0.5 mg tablet (Ativan) 0.5 mg PO BEDTIME PRN anxiety #10 04/23/22 tabs cyclobenzaprine 10 mg tablet 10 mg PO Q8H #20 tabs 06/06/22 oxycodone 5 mg tablet 5 mg PO Q6H PRN pain #20 tabs 06/06/22 Allergies Allergy/AdvReac Type Severity Reaction Status Date / Time aripiprazole [From Abilify] Allergy Severe Rash Verified 04/07/22 13:32 peas Allergy Severe HIVES Verified 04/07/22 13:32 atorvastatin [From Lipitor] Allergy Intermediate Hives Verified 04/20/22 17:24 bee pollen [bee stings] AdvReac Severe Anaphylaxis Verified 04/07/22 13:32 Review of Systems Review of Systems: Yes all other systems are reviewed and are negative [facility] Past Medical History Medical History Anxiety Artificial cardiac pacemaker Asthma Cardiac defibrillator in place COPD (chronic obstructive pulmonary disease) Depression Developmental delay, mild Diabetes GERD (gastroesophageal reflux disease) History of ETOH abuse Hyperlipidemia Hypertension Hyperthyroidism RBBB Seizure Sleep apnea Surgical History History of cardiac cath Social History Social History Household Members: Other Housing: Other Housing Other:: Sober House Do you presently have visiting nurse or other home services: No Alcohol intake: former Patient Tobacco Use Status: Former Tobacco user Quit Date: 30 years Tobacco use type: Cigarette Second Hand Smoke Exposure: No Substance Use Type: Former Substance User, Prescription Drugs and Caffiene Advance Directives: Yes Advance Directives Information Provided: No Advance Directives on File: No service: No Current occupational status: disabled Sexual orientation: Did not discuss. Physical Exam Vital Signs: Vital Signs: Last Vital Signs Temp 97.6 F 07/11/22 15:24 Pulse 75 07/11/22 15:24 Resp 13 07/11/22 15:24 BP 135/78 07/11/22 15:24 Pulse Ox 97 07/11/22 15:24 O2 Del Method Room Air 07/11/22 15:24 BMI result Body Mass Index 39.4 Appearance: Alert. Oriented X3. No acute distress. Head: Head is normocephalic, atraumatic. Tenderness to palpation with hematoma to the occiput. Eyes: Pupils equal, round and reactive to light. EOMI ENT: Pharynx normal. Dry mucous membranes, no tonsillar hypertrophy or exudates. Oropharynx without erythema or edema. Uvula is midline. Neck: Normal inspection. Neck supple. Mild tenderness to palpation over the cervical paraspinous muscles. No cervical midline spine tenderness CVS: Normal heart rate and rhythm. Pulses normal. S1-S2 regular. Respiratory: No respiratory distress. Breath sounds normal. Lungs clear to auscultation bilaterally Abdomen: Abdomen is soft, tenderness in the left upper quadrant with guarding. Skin: Skin warm and dry. Normal skin color. Normal skin turgor. No rashes. Extremities: No lower extremity edema. Neuro: Oriented X 3. No motor deficit. No sensory deficit. CN II-XII intact. Course Reevaluation(s) Reevaluation #1: Patient re-evaluated states that his chest pain has improved but still persists. Rating his pain at 7 in 10. Patient resting her pain medication, morphine 2 mg IV ordered. Also requesting nausea medication Zofran 4 mg was ordered. QTC borderline, will proceed cautiously with Q-T prolonging medications from this point forward. Time: 14:39 Reevaluation #2: Pt reports that his chest pain improved with morphine, however still persistent at 7/10. Repeat troponin 7.7. Discussed case with attending physician, Dr. Franny Gonzalez. Pt reports that patient's chest pain improved with nitroglycerin, but morphine helped more. Ordered one dose of nitroglycerin .4mg SL to monitor chest pain symptoms. Third troponin ordered and pending to trend. Pt's blood pressure stable, patient appears stable, in no acute distress, requesting food and to stay overnight. Time: 17:25 Reevaluation #3: Third troponin 2.8. Patient re-evaluated still having 7/10 chest pain, however improved since his arrival. Discussed these results with patient. Discussed the importance of following up with his information systems security specialist. Advised to call tomorrow morning to schedule an appointment. Patient agrees with this plan. Vital signs within normal limits. Informed of plan and he is requesting dinner. Patient is stable for discharge. Time: 18:21 Medications Administered Discontinued Medications Generic Name Dose Route Start Last Admin Trade Name Freq PRN Reason Stop Dose Admin Sodium Chloride 1,000 mls @ 999 mls/hr 07/11/22 12:00 07/11/22 15:44 Ns IVCONT 07/11/22 13:00 Infused .Q1H1M ONE Infusion Lorazepam 0.5 mg 07/11/22 12:04 07/11/22 12:57 Lorazepam 0.5 Mg Tablet PO 07/11/22 12:05 0.5 mg ONCE ONE Administration Morphine Sulfate 4 mg 07/11/22 12:04 07/11/22 12:58 Morphine Sulfate 4 Mg/Ml Cartridge IVPUSH 07/11/22 12:05 4 mg ONCE ONE Administration Protocol Morphine Sulfate 2 mg 07/11/22 14:36 07/11/22 14:47 Morphine Sulfate 2 Mg/Ml Cartridge IVPUSH 07/11/22 14:37 2 mg ONCE ONE Administration Protocol Nitroglycerin 0.4 mg 07/11/22 17:17 07/11/22 18:03 Nitroglycerin 0.4 Mg Tab.Subl SUBLINGUAL 07/11/22 17:18 0.4 mg ONCE ONE Administration Ondansetron HCl 4 mg 07/11/22 14:36 07/11/22 14:47 Ondansetron Hcl 4 Mg/2 Ml Vial IVPUSH 07/11/22 14:37 4 mg ONCE ONE Administration Medical Decision Making Medical Decision Making MDM Narrative: 62 yo male with history of hx Tetralogy of Fallot s/p surgical repair in 1969, trifascicular block s/p AICD 2008 with generator change in 2016, pAF, obesity, HTN, HLD, asthma, PONCE on BiPAP, GERD, DM2, hypothyroidism, possible seizure disorder, bipolar disorder, somatoform disorder, polysubstance abuse, and cognitive delay who presents to the ER for evaluation of left sided chest pain, and posterior headache s/p head trauma which occurred today. CT head and neck obtained and are unremarkable for acute ICH. Troponin 3.0, repeat 7.7 . Patient has a HEARTscore of 3. EKG with RBBB seen on previous EKG. Pt received ASA and nitroglycerin in route with some relief. Patient has not missed any eliquis dosages. Patient has no hypoxia, no tachycardia. Differential Diagnosis Differential Diagnoses: The differential diagnosis associated with the presentation includes ICH, ACS, Closed head injury, angina Lab Data MDM Lab Attestation statement: I reviewed the patient's lab results. No leukocytosis, H&H 11.4/34.5, troponin 3.0 > 7.7, third troponin 2.8. 07/11/22 12:17 07/11/22 12:17 Labs: Lab Results 07/11/22 07/11/22 07/11/22 Range/Units 12:17 12:17 12:17 WBC 5.9 (4.8-10.8) X10*3/uL RBC 3.89 L (4.60-5.80) X10*6/uL Hgb 11.4 L (14.0-18.0) g/dl Hct 34.5 L (42.0-52.0) % MCV 88.7 (80.0-98.0) fL MCH 29.3 (27.0-33.0) pg MCHC 33.0 (31.0-36.0) g/dl RDW 12.8 (11.0-16.0) % Plt Count 80 L (160-400) X10*3/uL MPV 10.8 (9.4-12.4) fL Immature Gran % (Auto) 0.8 H (0.0-0.4) % Neut % (Auto) 66.8 (45-73) % Lymph % (Auto) 17.4 L (20-40) % [place] % (Auto) 9.3 (2-11) % Eos % (Auto) 4.7 H (0-4) % Baso % (Auto) 1.0 (0-2) % Lymph # (Auto) 1.0 L (1.2-4.9) X10*3/uL [place] # (Auto) 0.6 (0.1-1.2) X10*3/uL Eos # (Auto) 0.3 (0.0-0.4) X10*3/uL Baso # (Auto) 0.1 (0.0-0.2) X10*3/uL Abs Immat Gran (auto) 0.05 H (0.00-0.03) X10*3/uL Absolute Neuts (auto) 4.0 (2.0-8.3) x10*3/uL Absolute Nucleated RBC 0.000 (0.0-0.012) X10*3/uL Nucleated RBC % (auto) 0.0 (0.0-0.2) /100WBC PT (10.0-13.1) SEC INR (0.9-1.1) APTT (26.0-36.4) SEC Sodium 143 (135-145) mmol/L Potassium 4.0 (3.3-5.1) mmol/L Chloride 109 H (96-108) mmol/L Carbon Dioxide 28 (22-29) mmol/L Anion Gap 10 L (12-20) BUN 12 (9-16) mg/dL Creatinine 1.20 (0.5-1.4) mg/dL Estim Creat Clear Calc 78.9 Estimated GFR > 60 Random Glucose 160 H (60-115) mg/dL Calcium 7.9 L (8.4-10.2) mg/dL Magnesium 2.0 (1.6-2.6) mg/dL Total Bilirubin 0.6 (0.0-1.0) mg/dL Direct Bilirubin 0.2 (0.0-0.5) mg/dL AST 9 (5-37) U/L ALT 9 (0-40) U/L Alkaline Phosphatase 66 (39-117) U/L Troponin I High Sens 3.0 (<3.5-35.0) ng/L Total Protein 5.8 L (6.5-8.0) g/dL Albumin 3.5 (3.5-5.0) g/dL Lipase 36 (8-78) U/L Urine Color Urine Appearance Urine pH (5.0-9.0) Ur Specific Weld (1.005-1.025) Urine Protein (Neg-Trace) mg/dL Urine Glucose (UA) (Negative) mg/dL Urine Ketones (Negative) mg/dL Urine Blood (Negative) Urine Nitrite (Negative) Ur Leukocyte Esterase (Negative) Influenza Type A (PCR) (Negative) Influenza Type B (PCR) (Negative) RSV RNA Qual (PCR) (Negative) SARS-CoV-2 RNA (RT-PCR) (Negative) 07/11/22 07/11/22 07/11/22 Range/Units 12:17 12:17 12:17 WBC (4.8-10.8) X10*3/uL RBC (4.60-5.80) X10*6/uL Hgb (14.0-18.0) g/dl Hct (42.0-52.0) % MCV (80.0-98.0) fL MCH (27.0-33.0) pg MCHC (31.0-36.0) g/dl RDW (11.0-16.0) % Plt Count (160-400) X10*3/uL MPV (9.4-12.4) fL Immature Gran % (Auto) (0.0-0.4) % Neut % (Auto) (45-73) % Lymph % (Auto) (20-40) % [place] % (Auto) (2-11) % Eos % (Auto) (0-4) % Baso % (Auto) (0-2) % Lymph # (Auto) (1.2-4.9) X10*3/uL [place] # (Auto) (0.1-1.2) X10*3/uL Eos # (Auto) (0.0-0.4) X10*3/uL Baso # (Auto) (0.0-0.2) X10*3/uL Abs Immat Gran (auto) (0.00-0.03) X10*3/uL Absolute Neuts (auto) (2.0-8.3) x10*3/uL Absolute Nucleated RBC (0.0-0.012) X10*3/uL Nucleated RBC % (auto) (0.0-0.2) /100WBC PT 18.3 H (10.0-13.1) SEC INR 1.6 H (0.9-1.1) APTT 37.5 H (26.0-36.4) SEC Sodium (135-145) mmol/L Potassium (3.3-5.1) mmol/L Chloride (96-108) mmol/L Carbon Dioxide (22-29) mmol/L Anion Gap (12-20) BUN (9-16) mg/dL Creatinine (0.5-1.4) mg/dL Estim Creat Clear Calc Estimated GFR Random Glucose (60-115) mg/dL Calcium (8.4-10.2) mg/dL Magnesium (1.6-2.6) mg/dL Total Bilirubin (0.0-1.0) mg/dL Direct Bilirubin (0.0-0.5) mg/dL AST (5-37) U/L ALT (0-40) U/L Alkaline Phosphatase (39-117) U/L Troponin I High Sens (<3.5-35.0) ng/L Total Protein (6.5-8.0) g/dL Albumin (3.5-5.0) g/dL Lipase (8-78) U/L Urine Color Urine Appearance Urine pH (5.0-9.0) Ur Specific Weld (1.005-1.025) Urine Protein (Neg-Trace) mg/dL Urine Glucose (UA) (Negative) mg/dL Urine Ketones (Negative) mg/dL Urine Blood (Negative) Urine Nitrite (Negative) Ur Leukocyte Esterase (Negative) Influenza Type A (PCR) NEGATIVE (Negative) Influenza Type B (PCR) NEGATIVE (Negative) RSV RNA Qual (PCR) NEGATIVE (Negative) SARS-CoV-2 RNA (RT-PCR) NEGATIVE (Negative) 07/11/22 07/11/22 07/11/22 Range/Units 13:10 15:33 17:41 WBC (4.8-10.8) X10*3/uL RBC (4.60-5.80) X10*6/uL Hgb (14.0-18.0) g/dl Hct (42.0-52.0) % MCV (80.0-98.0) fL MCH (27.0-33.0) pg MCHC (31.0-36.0) g/dl RDW (11.0-16.0) % Plt Count (160-400) X10*3/uL MPV (9.4-12.4) fL Immature Gran % (Auto) (0.0-0.4) % Neut % (Auto) (45-73) % Lymph % (Auto) (20-40) % [place] % (Auto) (2-11) % Eos % (Auto) (0-4) % Baso % (Auto) (0-2) % Lymph # (Auto) (1.2-4.9) X10*3/uL [place] # (Auto) (0.1-1.2) X10*3/uL Eos # (Auto) (0.0-0.4) X10*3/uL Baso # (Auto) (0.0-0.2) X10*3/uL Abs Immat Gran (auto) (0.00-0.03) X10*3/uL Absolute Neuts (auto) (2.0-8.3) x10*3/uL Absolute Nucleated RBC (0.0-0.012) X10*3/uL Nucleated RBC % (auto) (0.0-0.2) /100WBC PT (10.0-13.1) SEC INR (0.9-1.1) APTT (26.0-36.4) SEC Sodium (135-145) mmol/L Potassium (3.3-5.1) mmol/L Chloride (96-108) mmol/L Carbon Dioxide (22-29) mmol/L Anion Gap (12-20) BUN (9-16) mg/dL Creatinine (0.5-1.4) mg/dL Estim Creat Clear Calc Estimated GFR Random Glucose (60-115) mg/dL Calcium (8.4-10.2) mg/dL Magnesium (1.6-2.6) mg/dL Total Bilirubin (0.0-1.0) mg/dL Direct Bilirubin (0.0-0.5) mg/dL AST (5-37) U/L ALT (0-40) U/L Alkaline Phosphatase (39-117) U/L Troponin I High Sens 7.7 D 2.8 D (<3.5-35.0) ng/L Total Protein (6.5-8.0) g/dL Albumin (3.5-5.0) g/dL Lipase (8-78) U/L Urine Color Yellow Urine Appearance Clear Urine pH 5.5 (5.0-9.0) Ur Specific Weld 1.020 (1.005-1.025) Urine Protein Negative (Neg-Trace) mg/dL Urine Glucose (UA) Negative (Negative) mg/dL Urine Ketones Negative (Negative) mg/dL Urine Blood Negative (Negative) Urine Nitrite Negative (Negative) Ur Leukocyte Esterase Negative (Negative) Influenza Type A (PCR) (Negative) Influenza Type B (PCR) (Negative) RSV RNA Qual (PCR) (Negative) SARS-CoV-2 RNA (RT-PCR) (Negative) Independent Interpretation I performed an independent interpretation of an: EKG and CT Scan Interpretation: EKG sinus rhythm at a ventricular rate of 73 beats per minute with a first-degree AV block, RI interval 222ms, QRS duration 180ms. QTC 506. Right bundle branch block, seen on previous EKG on July 08, 2022. No ST elevation or depression. No acute ischemic changes Radiology Impression Discussion of test interpretation with radiology: I have reviewed the radiologist's reading. Radiologist Impression: COMPARISON: Previous CT scans October 2021? TECHNIQUE: Axial images through the head and cervical spine without IV contrast. Sagittal and coronal reconstructions on the technologist workstation were performed. This CT examination was performed using dose optimization techniques as appropriate, variously including the following: *Automated exposure control *Adjustment of mA and/or kV according to patient size (this includes techniques or standardized protocols for targeted exams where dose is matched to indication/reason for exam; i.e. extremities or head) *Use of iterative reconstruction technique DLP 182 4 mg/cm. FINDINGS: Head CT: Exam is limited due to motion artifact. There is an area of increased attenuation in the periventricular white matter adjacent to the frontal horn of the left lateral ventricle. This is similar to previous exams most recent May and October 2021 and probably represents an area of calcification. There is no evidence of an extra-axial collection. There is no evidence of intra-axial or extra-axial hemorrhage. The ventricles and extra-axial CSF spaces are appropriate. Warner-white matter differentiation is normal. No mass, mass effect or infarct is seen. Review of bone windows demonstrates no skull fracture. There is a small polyp or cyst in the left maxillary sinus. There is partial soft tissue opacification of the right mastoid air cells. This is similar to previous exams. Cervical spine CT: Exam is limited due to patient positioning and motion. The head is tilted to the left. There is curvature of the lower cervical and upper thoracic spine to the right. The left temporal bone is not completely included in the [id number]. No fracture or dislocation. There is severe multilevel degenerative spondylosis with large anterior vertebral body bridging bony osteophytes from C3-C4 to C7-T1. There are severe degenerative changes at the C1 dens articulation. There is bilateral multilevel facet arthritis. Disc spaces are normal. Prevertebral soft tissues are normal. Visualized lung apices are clear. There is a left clavian pacemaker lead. CT/CT head/brain wo IV con IMPRESSION: Head CT: Limited exam due to motion artifact. Stable appearance to the small focus of increased attenuation in the periventricular white matter of the left frontal lobe adjacent to the frontal horn of the left lateral ventricle from prior exams probably representing area of calcification. ? Cervical spine CT: Limited due to patient position and motion. Severe multilevel degenerative spondylosis. Dictated By: Franny Duarte MD Independent Historian Clinical information obtained from an independent historian. History obtained from or confirmed by: EMS Chronic Conditions Patient?s care impacted by: Hypertension Scores Heart Score History: -0- slightly suspicious ECG: -1- non specific repolarization disturbance Age: -1- >45 - <65 Risk factory: -1- 1 or 2 risk factors Troponin: -0- < or = normal limit Score: 3 Risk: 1.7% Discharge Plan Discharge Clinical Impression: Chest pain, Closed head injury Patient Disposition: Home, Self-Care Instructions: Chest Pain (ED) Additional Instructions: Your head CT and neck CT were normal today. Your chest x-ray was normal. You tested negative for flu, covid, and rsv today. It is unclear what is causing your chest pain but your labs were reassuring today. You need to follow up with your information systems security specialist regarding this visit. If any new or worsening symptoms occur, please return for further evaluation. Prescriptions: No Action isosorbide mononitrate 30 mg Tablet Extended Release 24 Hr 30 mg PO DAILY Qty: 0 0RF Protocol: Hold for SBP< HOLD for SBP < : 90 aspirin 81 mg Tablet,Delayed Release (Dr/Ec) 81 mg PO DAILY Qty: 0 0RF lisinopril 2.5 mg Tablet 2.5 mg PO DAILY Qty: 0 0RF Protocol: Hold for SBP< HOLD for SBP < : 90 acetaminophen 325 mg Tablet 650 mg PO Q6H PRN (Reason: Headache/Pain Mild Scale (1-3)) Qty: 0 0RF paroxetine HCl 10 mg Tablet 10 mg PO DAILY Qty: 0 0RF naproxen 500 mg Tablet 500 mg PO BID PRN (Reason: Pain, Moderate (Pain Scale 4-6) Qty: 0 0RF hydroxyzine HCl 25 mg Tablet 25 mg PO BEDTIME PRN (Reason: Anxiety) Qty: 0 0RF levothyroxine 75 mcg Tablet 75 mcg PO DAILY@0630 Qty: 0 0RF metformin 500 mg Tablet 500 mg PO BIDWM 30 Days Qty: 60 0RF lidocaine [Lidocaine Pain Relief] 4 % Adhesive Patch,Medicated 1 patch transdermal DAILY 30 Days Qty: 30 0RF Protocol: Apply to: Apply to: left lower back albuterol sulfate 90 mcg/actuation Hfa Aerosol Inhaler 2 puff inhalation RQ4H PRN (Reason: Shortness Of Breath) 30 Days Qty: 1 0RF metoprolol succinate 100 mg Tablet Extended Release 24 Hr 100 mg PO DAILY Qty: 0 0RF Protocol: Hold for SBP/HR < HOLD for SBP < : 90 HOLD for HR < : 60 olanzapine 2.5 mg Tablet 2.5 mg PO DAILY Qty: 0 0RF olanzapine 2.5 mg Tablet 2.5 mg PO DAILY PRN (Reason: anxiety somatic preoccupation ) Qty: 0 0RF trazodone 100 mg Tablet 100 mg PO BEDTIME Qty: 0 0RF gabapentin 300 mg Capsule 300 mg PO DAILY PRN (Reason: anxiety) Qty: 0 0RF gabapentin 300 mg Capsule 300 mg PO BID Qty: 0 0RF melatonin 3 mg Tablet 6 mg PO BEDTIME Qty: 0 0RF gabapentin 300 mg capsule 300 mg PO BID 30 Days Qty: 60 0RF lorazepam [Ativan] 0.5 mg tablet 0.5 mg PO BEDTIME PRN (Reason: anxiety) Qty: 10 0RF cyclobenzaprine 10 mg tablet 10 mg PO Q8H Qty: 20 0RF oxycodone 5 mg tablet 5 mg PO Q6H PRN (Reason: pain) Qty: 20 0RF Rx Instructions: Partial Fill upon patient request. Interventions: ED Discharge Assessment Last Done: 07/11/22 19:10 Discharge Date/Time: 07/11/22 19:11
[2022-07-11 12:23] LABS: MANUAL DIFF FLAG NO
[2022-07-11 12:25] LABS: Basophils Absolute Auto 0.1 X10*3/uL (0.0-0.2); Eosinophils Absolute Auto 0.3 X10*3/uL (0.0-0.4); Eosinophils Percent Auto 4.7 % (0-4); Hematocrit 34.5 % (42.0-52.0); Hemoglobin 11.4 g/dl (14.0-18.0); Imm Gran Abs Auto 0.05 X10*3/uL (0.00-0.03); Imm Gran Pct Auto 0.8 % (0.0-0.4); Lymphocytes Percent Auto 17.4 % (20-40); Mean Corpuscular Hemoglobin 29.3 pg (27.0-33.0); Mean Corpuscular Volume 88.7 fL (80.0-98.0); Mean Platelet Volume 10.8 fL (9.4-12.4); Monocytes Absolute Auto 0.6 X10*3/uL (0.1-1.2); Monocytes Percent Auto 9.3 % (2-11); Neutrophils Percent Auto 66.8 % (45-73); Platelet Count 80 X10*3/uL (160-400); Red Blood Count 3.89 X10*6/uL (4.60-5.80); Red Cell Distribution Width 12.8 % (11.0-16.0); White Blood Count 5.9 X10*3/uL (4.8-10.8)
[2022-07-11 12:30] LABS: INTERNATIONAL NORM RATIO 1.6 (0.9-1.1); Prothrombin Time 18.3 SEC (10.0-13.1)
[2022-07-11 12:33] LABS: Partial Thromboplastin Time 37.5 SEC (26.0-36.4)
[2022-07-11 12:51] LABS: Alanine Aminotransferase 9 U/L (0-40); Albumin Level 3.5 g/dL (3.5-5.0); Alkaline Phosphatase 66 U/L (39-117); Anion Gap 10 (12-20); Aspartate Amino Transferase 9 U/L (5-37); Bilirubin Direct 0.2 mg/dL (0.0-0.5); Bilirubin Total 0.6 mg/dL (0.0-1.0); Blood Urea Nitrogen 12 mg/dL (9-16); Calcium 7.9 mg/dL (8.4-10.2); Carbon Dioxide 28 mmol/L (22-29); Chloride 109 mmol/L (96-108); Creatinine Clr Calc Pharmacy 78.9; Estimated Glomerular Filt Rate > 60; Glucose Random 160 mg/dL (60-115); Lipase 36 U/L (8-78); Sodium 143 mmol/L (135-145); Total Protein 5.8 g/dL (6.5-8.0)
[2022-07-11 12:54] VITALS: BP 126/91; PULSE 74; RESP 12; TEMP 36.4; O2SAT 96
[2022-07-11] MEDS: LORazepam 0.5 MG TABLET PO (12:57)
[2022-07-11] MEDS: Morphine Sulfate 4 MG/ML CARTRIDGE IVPUSH (12:58)
[2022-07-11] MEDS: 0.9 % Sodium Chloride 1,000 ML 999 ML IVCONT (12:59)
[2022-07-11 13:07] LABS: Influenza A PCR NEGATIVE (Negative); Influenza B PCR NEGATIVE (Negative); Resp Syncy Virus RNA Qual PCR NEGATIVE (Negative); SARS COV2 PCR INHOUSE NEGATIVE (Negative)
[2022-07-11 13:22] LABS: Appearance Urine Clear; Color Urine Yellow; Glucose Urine UA Negative (Negative); Leukocyte Esterase Urine Negative (Negative); Nitrite Urine Negative (Negative); PH 5.5 (5.0-9.0); Urine Blood Negative (Negative); Urine Ketones Negative (Negative); Urine Protein Negative (Neg-Trace)
[2022-07-11] MEDS: Morphine Sulfate 2 MG/ML CARTRIDGE IVPUSH (14:47)
[2022-07-11] MEDS: ondansetron HCL 4 MG/2 ML VIAL IVPUSH (14:47)
[2022-07-11 15:24] VITALS: BP 135/78; PULSE 75; RESP 13; TEMP 36.4; O2SAT 97
[2022-07-11 16:05] LABS: Troponin-I High Sensitivity 7.7 ng/L (<3.5-35.0)
[2022-07-11] MEDS: Nitroglycerin 0.4 MG TAB.SUBL SUBLINGUAL (18:03)
[2022-07-11 18:12] LABS: Troponin-I High Sensitivity 2.8 ng/L (<3.5-35.0)
== END 2022-07-11 19:11 | disposition home or self-care (01) ==
PROVIDERS: Physician Assistant Medical; Emergency Provider Emergency Medicine; PCP Internal Medicine
DX: R07.89 Other chest pain (principal); R51.9 Headache, unspecified; M54.2 Cervicalgia; Z20.822 Contact with and (suspected) exposure to COVID-19; Z20.828 Contact with and (suspected) exposure to other viral communicable diseases; Z79.899 Other long term (current) drug therapy; Z87.891 Personal history of nicotine dependence; Z79.01 Long term (current) use of anticoagulants
CPT/HCPCS: 0241U; 36415; 70450; 72125; 80048; 80076; 81003; 83690; 83735; 84484; 85025; 85610; 85730; 93005; 96361; 96374; 96375; 96376; 99284; J2270; J2405

== ENCOUNTER 2022-08-19 14:17 | Inpatient (IN) | payer OTHER, SELFPAY ==
--- NOTE | ~2022-08-19 | CT_ITS ---
EXAMINATION: CT HEAD WITHOUT CONTRAST (STROKE PROTOCOL) CLINICAL INFORMATION: Stroke protocol. Onset left-sided paresthesia. COMPARISON: CT brain 07/11/2022. TECHNIQUE: Contiguous axial imaging was performed from the skull base to vertex without intravenous administration of contrast. This CT examination was performed using dose optimization techniques as appropriate, variously including the following: *Automated exposure control. *Adjustment of mA and/or kV according to patient size (this includes techniques or standardized protocols for targeted exams where dose is matched to indication/reason for exam; i.e. extremities or head). *Use of iterative reconstruction technique. DLP: 736 mGy-cm FINDINGS: There is no acute intra-axial, extra-axial bleed, masses or midline shift. There is no acute infarct in evolution. There is no edema. There is an area of increased attenuation likely calcification in white matter of left frontal lobe, similar to previous several CT exams including the last CT from 07/11/2022. The [id number] matter differentiation is maintained normal. There is no edema. No loss of cortical sulci. The lateral ventricles are symmetrical without enlargement. Bone windows reveal no calvarial abnormality. There is mild mucoperiosteal thickening in the bilateral maxillary sinuses. Bone windows reveal no calvarial abnormality. CT/CT head for stroke IMPRESSION: 1. No acute intracranial process seen. 2. Chronic bilateral maxillary sinus inflammatory changes. This critical result was discussed with HEAVENLY Avendano at 6:17 pm on 08/22/2022. It was ascertained that the content and urgency of the report was understood at the time of direct communication.
--- NOTE | ~2022-08-19 | XR_ITS ---
EXAMINATION: XR CHEST CLINICAL INFORMATION: Chest pain. COMPARISON: Most recent chest radiograph dated 07/08/2022. TECHNIQUE: Frontal view of the chest was obtained. FINDINGS: No focal airspace consolidation. No pleural effusion or pneumothorax. Stable cardiomegaly. Left chest wall pacer/AICD with its leads in the right heart. Sternal wires. XR/XR chest 1V IMPRESSION: 1. No acute cardiopulmonary findings. 2. Stable cardiomegaly.
--- NOTE | ~2022-08-19 | US_ITS ---
EXAMINATION: US EXTRACRANIAL CAROTID DUPLEX, BILATERAL CLINICAL INFORMATION: CVA COMPARISON: Carotid ultrasound 04/11/2011 TECHNIQUE: Real-time ultrasound and Doppler techniques (integrating B-mode 2-D vascular images, Doppler spectral analysis and color-flow Doppler imaging) were utilized to interrogate the extracranial carotid arteries, the vertebral arteries and proximal subclavian arteries bilaterally. The degree of stenosis is determined by criteria similar to NASCET. FINDINGS: Right Side: 1. There is no atherosclerotic plaque seen in the bifurcation/proximal ICA region. 2. The common carotid artery PSV proximally is 141 cm/s and distally 1:30 cm/s. 3. The proximal internal carotid artery velocities are 48 cm/s systolic and 20 cm/s diastolic. 4. The proximal external carotid artery PSV is 1:30 cm/s. 5. The vertebral artery shows antegrade flow. 6. The subclavian artery waveforms are normal. Left Side: 1. There is no atherosclerotic plaque seen in the bifurcation/proximal ICA region. 2. The common carotid artery PSV proximally is 94 cm/s and distally 85 cm/s. 3. The proximal internal carotid artery velocities are 73 cm/s systolic and 27 cm/s diastolic. 4. The proximal external carotid artery PSV is 163 cm/s. 5. The vertebral artery shows antegrade flow. 6. The subclavian artery waveforms are normal. US/US carotid duplex BI 1. IMPRESSION: RIGHT: Normal right internal carotid artery without atherosclerotic plaque or hemodynamically significant stenosis. 2. LEFT: Normal left internal carotid artery without atherosclerotic plaque or hemodynamically significant stenosis. 3. No interval change when compared to the 2011 study
[2022-08-19 14:25] VITALS: BP 148/78; PULSE 75; RESP 18; TEMP 36.1; O2SAT 98; BMI 35.0
--- NOTE | 2022-08-19 14:26 | ED_ITS ---
HPI - General Adult General Chief complaint: Psychiatric Symptoms Stated complaint: Psych Eval Time Seen by Provider: 08/19/22 15:04 Source: patient Mode of arrival: ambulatory Limitations: no limitations History of Present Illness HPI narrative: 62-year-old male who presents emergency department for evaluation of suicidal ideation. The patient states that his mother 3 or 4 years ago. He states that he found his mother data on the couch with her eyes open her finger point up in the air. He states that since that time he gets very sad and depressed around holidays. He states that the recent Mother's Day holiday made him very depressed. He states that since yesterday he has been feeling suicidal. He was evaluated by [facility] as an outpatient and states that they were going to get him a bed however he was rejected since he has obstructive sleep apnea and has not used his CPAP in over a year. Patient states he is still feeling suicidal. He has a planned overdose on his sotalol. The patient states that 1 week prior his defibrillator fired and he passed out for a brief period of time . He states he fell backwards and hit his head. He was seen at [facility] and had a negative workup including a negative CT scan. He states that after being discharged from [facility] he developed nausea vomiting was seen at [facility]. He states that since that time he has had an occasional headache. I did review to patient's cardiology consult note by Dr. Dennison dated 09/23/2021 and the following information was obtained: ...consultation today for noted QT prolongation on the EKG in the setting of wide QRS complex with right bundle-branch block. Joaquín milan prior medical history follows with Dr. Nix at [facility]. He has a defibrillator, prior tetralogy of Fallot repair, last echocardiogram from last October at [facility] showed mild LV systolic dysfunction as well as dilated RV. He also has moderately dilated aortic root at 5 cm. Reported as having mild pulmonary regurgitation. Patient has multiple hospitalization due to chest pain syndrome which has been labile as noncardiac. Patient is very frustrated with this chest pain syndrome and as a result had suicidal ideation. He was therefore admitted to [facility] here for suicidal ideation. Plan to start him on psychiatric medication there was concern about QT prolongation and cardiology consult was sought. Patient currently continues to have these intermittent chest pain syndromes of unclear etiology but appears to be clearly not ischemic. Workup in the past has been negative. He denies any palpitations. He said last Monday he had a shock from his device and was checked and he was told that there was no clear device discharge and this appears to be more of for phantom shock, question psychological. Related Data Previous Rx's Medication Instructions Recorded acetaminophen 325 mg tablet 650 mg PO Q6H PRN Headache/Pain 09/22/21 Mild Scale (1-3) #0 tabs aspirin 81 mg tablet,delayed 81 mg PO DAILY #0 tabs 09/22/21 release hydroxyzine HCl 25 mg tablet 25 mg PO BEDTIME PRN Anxiety #0 09/22/21 tabs isosorbide mononitrate 30 mg 30 mg PO DAILY #0 tabs 09/22/21 tablet,extended release 24 hr levothyroxine 75 mcg tablet 75 mcg PO DAILY@0630 #0 tabs 09/22/21 lisinopril 2.5 mg tablet 2.5 mg PO DAILY #0 tabs 09/22/21 naproxen 500 mg tablet 500 mg PO BID PRN Pain, Moderate 09/22/21 (Pain Scale 4-6 #0 tabs paroxetine HCl 10 mg tablet 10 mg PO DAILY #0 tabs 09/22/21 albuterol sulfate 90 mcg/actuation 2 puff inhalation RQ4H PRN 09/28/21 aerosol inhaler Shortness Of Breath 30 days #1 inhaler gabapentin 300 mg capsule 300 mg PO BID #0 caps 09/28/21 gabapentin 300 mg capsule 300 mg PO BID 30 days #60 caps 09/28/21 gabapentin 300 mg capsule 300 mg PO DAILY PRN anxiety #0 caps 09/28/21 lidocaine 4 % topical patch 1 patch transdermal DAILY 30 days 09/28/21 (Lidocaine Pain Relief) #30 ea melatonin 3 mg tablet 6 mg PO BEDTIME #0 tabs 09/28/21 metformin 500 mg tablet 500 mg PO BIDWM 30 days #60 tabs 09/28/21 metoprolol succinate 100 mg 100 mg PO DAILY #0 tabs 09/28/21 tablet,extended release 24 hr olanzapine 2.5 mg tablet 2.5 mg PO DAILY #0 tabs 09/28/21 olanzapine 2.5 mg tablet 2.5 mg PO DAILY PRN anxiety 09/28/21 somatic preoccupation #0 tabs trazodone 100 mg tablet 100 mg PO BEDTIME #0 tabs 09/28/21 lorazepam 0.5 mg tablet (Ativan) 0.5 mg PO BEDTIME PRN anxiety #10 04/23/22 tabs cyclobenzaprine 10 mg tablet 10 mg PO Q8H #20 tabs 06/06/22 oxycodone 5 mg tablet 5 mg PO Q6H PRN pain #20 tabs 06/06/22 Allergies Allergy/AdvReac Type Severity Reaction Status Date / Time aripiprazole [From Abilify] Allergy Severe Rash Verified 08/19/22 14:29 peas Allergy Severe HIVES Verified 08/19/22 14:29 atorvastatin [From Lipitor] Allergy Intermediate Hives Verified 08/19/22 14:29 bee pollen [bee stings] AdvReac Severe Anaphylaxis Verified 08/19/22 14:29 Review of Systems Review of Systems: Yes all other systems are reviewed and are negative ON LICENSE OF [facility] Past Medical History ON LICENSE OF [facility] Narrative: Social history: Patient states he lives at home. He denies tobacco use. He states that he had a long period of sobriety but drank approximately 7 months ago. He was then placed on a [address] 25 and states that he has been sober for approximately 7 months. Denies drug use. Medical History Anxiety Artificial cardiac pacemaker Asthma Cardiac defibrillator in place COPD (chronic obstructive pulmonary disease) Depression Developmental delay, mild Diabetes GERD (gastroesophageal reflux disease) History of ETOH abuse Hyperlipidemia Hypertension Hyperthyroidism RBBB Seizure Sleep apnea Surgical History History of cardiac cath Social History Social History Household Members: Other Housing: Other Housing Other:: Sober House Do you presently have visiting nurse or other home services: No Alcohol intake: former Patient Tobacco Use Status: Former Tobacco user Quit Date: 30 years Tobacco use type: Cigarette Second Hand Smoke Exposure: No Substance Use Type: Former Substance User, Prescription Drugs and Caffiene Advance Directives: Yes Advance Directives Information Provided: Yes Advance Directives on File: No service: No Current occupational status: disabled Sexual orientation: Did not discuss. Physical Exam ED Vital Signs: Vital Signs - 24 hr 08/19/22 14:25 Temperature 97 F Pulse Rate 75 Respiratory Rate 18 Blood Pressure 148/78 H Pulse Oximetry 98 Oxygen Delivery Method Room Air BMI result Body Mass Index 35.0 Const Other: Awake, alert, male patient, pleasant, cooperative does not appear to be in distress, answers all questions appropriately HENMT Head: Yes normal to inspection, Yes normocephalic and Yes atraumatic Ears: external ears normal General nose exam: Normal external nose present Face and sinus: Yes normal facial exam Mouth: Normal oral and palatal mucosa present Throat: Yes posterior oropharynx normal Eyes General: appearance normal, both eyes and all related structures Pupils: Equal, round and reactive pupils present Neck Neck: Yes normal visual inspection, Yes no lymphadenopathy, Yes trachea midline and Yes supple Chest Chest palpation & inspection: normal inspection of the chest and normal palpation of entire chest wall Resp Effort & Inspection: normal respiratory effort and able to speak in complete sentences Auscultation: clear to auscultation bilaterally Cardio Rate: regular rate Rhythm: regular rhythm Heart sounds: S1 normal heart sound present, S2 normal heart sound present and no murmurs GI Inspection: Yes normal to inspection Palpation (GI): Soft to palpation, nontender and no guarding Auscultation: normal bowel sounds General: Yes no CVA tenderness Back/Spine/Pelvis Back: no CVA tenderness Skin General skin exam: no rashes or lesions noted Neuro Cranial nerves: Yes CN's II-XII intact bilaterally and Yes Equal, round and reactive pupils present Cognition (Neuro): normal cognition Motor exam (neuro): 5/5 motor strength present throughout Extrem General: Yes normal to inspection Psych Appearance: grossly normal Speech and movement: Normal speech and movement present Affect: normal affect Attitude: cooperative Thought process: Normal thought process present Thought content: Suicidality present and no homicidality Course Course Course Narrative: RME performed by Maye Fernandes PA-C. Patient is a 62 year old assigned male at presenting to the emergency department with suicidal ideation with the intent to overdose on his own pills. Labs ordered. Patient placed back in the POD. Medications Administered Discontinued Medications Generic Name Dose Route Start Last Admin Trade Name Freq PRN Reason Stop Dose Admin Lorazepam 1 mg 08/19/22 15:17 08/19/22 15:25 Lorazepam 1 Mg Tablet PO 08/19/22 15:18 1 mg ONCE ONE Administration Medical Decision Making Medical Decision Making [facility] Narrative: 8-year-old male with a history of depression, anxiety, tetralogy of Fallot- repaired, pacemaker/defibrillator who presents emergency department for evaluation of suicidal ideation times several days. Patient has a planned overdose on his cardiac medication, sotalol. He states that he found 4 years prior and holidays trigger depression in him. He states that the recent Mother's Day holiday made him sad and depressed and he is now suicidal. Patient does have a planned overdose on his sotalol. Patient's physical examination was unremarkable. I did order laboratory evaluation to include CBC, CMP, salicylate, acetaminophen, urine drug screen, EKG. Patient was ordered a Ativan 1 mg orally for his anxiety. 1543: My interpretation patient's laboratory data is as follows: Mild anemia with an H&H of 13 and 38.5. Low platelet count of a [id number] is chronic. Glucose elevated 122. Bilirubin elevated 1.3. Urinalysis negative. Urine drug screen negative. Blood alcohol level below detectable limits. The patient is medically cleared for care team evaluation. This is pending at the end of my shift therefore the patient's care was turned over to my colleague, Dr. Núñez. Differential Diagnosis Differential Diagnoses: The differential diagnosis associated with the presentation includes Differential diagnosis includes was not limited to depression, anxiety, suicidal ideation, electrolyte abnormality, anemia, salicylate overdose, acetaminophen overdose Admission/Observation Consideration of admission/observation: Escalation of care including admission/observation considered Lab Data [facility] Lab Attestation statement: I reviewed the patient's lab results. 08/19/22 14:50 08/19/22 14:50 Labs: Lab Results 08/19/22 08/19/22 08/19/22 Range/Units 14:50 14:50 14:50 WBC 6.3 (4.8-10.8) X10*3/uL RBC 4.43 L (4.60-5.80) X10*6/uL Hgb 13.1 L (14.0-18.0) g/dl Hct 38.5 L (42.0-52.0) % MCV 86.9 (80.0-98.0) fL MCH 29.6 (27.0-33.0) pg MCHC 34.0 (31.0-36.0) g/dl RDW 12.5 (11.0-16.0) % Plt Count 106 L D (160-400) X10*3/uL MPV 10.9 (9.4-12.4) fL Immature Gran % (Auto) 1.1 H (0.0-0.4) % Neut % (Auto) 59.6 (45-73) % Lymph % (Auto) 23.8 (20-40) % [place] % (Auto) 9.5 (2-11) % Eos % (Auto) 4.9 H (0-4) % Baso % (Auto) 1.1 (0-2) % Lymph # (Auto) 1.5 (1.2-4.9) X10*3/uL [place] # (Auto) 0.6 (0.1-1.2) X10*3/uL Eos # (Auto) 0.3 (0.0-0.4) X10*3/uL Baso # (Auto) 0.1 (0.0-0.2) X10*3/uL Abs Immat Gran (auto) 0.07 H (0.00-0.03) X10*3/uL Absolute Neuts (auto) 3.8 (2.0-8.3) x10*3/uL Absolute Nucleated RBC 0.000 (0.0-0.012) X10*3/uL Nucleated RBC % (auto) 0.0 (0.0-0.2) /100WBC Sodium 140 (135-145) mmol/L Potassium 4.2 (3.3-5.1) mmol/L Chloride 106 (96-108) mmol/L Carbon Dioxide 23 (22-29) mmol/L Anion Gap 15 (12-20) BUN 16 (9-16) mg/dL Creatinine 1.33 (0.5-1.4) mg/dL Estim Creat Clear Calc 69.1 Estimated GFR 55 Random Glucose 122 H (60-115) mg/dL Calcium 8.3 L (8.4-10.2) mg/dL Total Bilirubin 1.3 H (0.0-1.0) mg/dL AST 14 (5-37) U/L ALT 16 (0-40) U/L Alkaline Phosphatase 76 (39-117) U/L Total Protein 6.8 (6.5-8.0) g/dL Albumin 4.1 (3.5-5.0) g/dL Urine Color Yellow Urine Appearance Clear Urine pH 6.0 (5.0-9.0) Ur Specific Homer <= 1.005 (1.005-1.025) Urine Protein Negative (Neg-Trace) mg/dL Urine Glucose (UA) Negative (Negative) mg/dL Urine Ketones Negative (Negative) mg/dL Urine Blood Negative (Negative) Urine Nitrite Negative (Negative) Ur Leukocyte Esterase Negative (Negative) Salicylates < 5.0 L (15-30) mg/dL Urine Opiates Screen (Not Detect) Urine Fentanyl Screen (Not Detect) Acetaminophen < 17 (<30) mcg/mL Ur Barbiturates Screen (Not Detect) Ur Phencyclidine Scrn (Not Detect) Ur Amphetamines Screen (Not Detect) U Benzodiazepines Scrn (Not Detect) Urine Cocaine Screen (Not Detect) U Marijuana (THC) Screen (Not Detect) Ethyl Alcohol < 10 mg/dL 08/19/22 Range/Units 14:50 WBC (4.8-10.8) X10*3/uL RBC (4.60-5.80) X10*6/uL Hgb (14.0-18.0) g/dl Hct (42.0-52.0) % MCV (80.0-98.0) fL MCH (27.0-33.0) pg MCHC (31.0-36.0) g/dl RDW (11.0-16.0) % Plt Count (160-400) X10*3/uL MPV (9.4-12.4) fL Immature Gran % (Auto) (0.0-0.4) % Neut % (Auto) (45-73) % Lymph % (Auto) (20-40) % [place] % (Auto) (2-11) % Eos % (Auto) (0-4) % Baso % (Auto) (0-2) % Lymph # (Auto) (1.2-4.9) X10*3/uL [place] # (Auto) (0.1-1.2) X10*3/uL Eos # (Auto) (0.0-0.4) X10*3/uL Baso # (Auto) (0.0-0.2) X10*3/uL Abs Immat Gran (auto) (0.00-0.03) X10*3/uL Absolute Neuts (auto) (2.0-8.3) x10*3/uL Absolute Nucleated RBC (0.0-0.012) X10*3/uL Nucleated RBC % (auto) (0.0-0.2) /100WBC Sodium (135-145) mmol/L Potassium (3.3-5.1) mmol/L Chloride (96-108) mmol/L Carbon Dioxide (22-29) mmol/L Anion Gap (12-20) BUN (9-16) mg/dL Creatinine (0.5-1.4) mg/dL Estim Creat Clear Calc Estimated GFR Random Glucose (60-115) mg/dL Calcium (8.4-10.2) mg/dL Total Bilirubin (0.0-1.0) mg/dL AST (5-37) U/L ALT (0-40) U/L Alkaline Phosphatase (39-117) U/L Total Protein (6.5-8.0) g/dL Albumin (3.5-5.0) g/dL Urine Color Urine Appearance Urine pH (5.0-9.0) Ur Specific Homer (1.005-1.025) Urine Protein (Neg-Trace) mg/dL Urine Glucose (UA) (Negative) mg/dL Urine Ketones (Negative) mg/dL Urine Blood (Negative) Urine Nitrite (Negative) Ur Leukocyte Esterase (Negative) Salicylates (15-30) mg/dL Urine Opiates Screen Not Detected (Not Detect) Urine Fentanyl Screen Not Detected (Not Detect) Acetaminophen (<30) mcg/mL Ur Barbiturates Screen Not Detected (Not Detect) Ur Phencyclidine Scrn Not Detected (Not Detect) Ur Amphetamines Screen Not Detected (Not Detect) U Benzodiazepines Scrn Not Detected (Not Detect) Urine Cocaine Screen Not Detected (Not Detect) U Marijuana (THC) Screen Not Detected (Not Detect) Ethyl Alcohol mg/dL Independent Interpretation I performed an independent interpretation of an: EKG Interpretation: My independent interpretation patient's 12 EKG as follows, normal sinus rhythm rate of 78, prolonged QTC of 200 milliseconds, prolonged QRS of 168 milliseconds, prolonged QTC of [address] segment elevation, no ST segment depression. Compared to EKG dated 07/11/2022 right bundle-branch block is old. No acute change. Discharge Plan Discharge Clinical Impression: Depression with suicidal ideation Patient Disposition: Still a Patient Prescriptions: No Action isosorbide mononitrate 30 mg Tablet Extended Release 24 Hr 30 mg PO DAILY Qty: 0 0RF Protocol: Hold for SBP< HOLD for SBP < : 90 aspirin 81 mg Tablet,Delayed Release (Dr/Ec) 81 mg PO DAILY Qty: 0 0RF lisinopril 2.5 mg Tablet 2.5 mg PO DAILY Qty: 0 0RF Protocol: Hold for SBP< HOLD for SBP < : 90 acetaminophen 325 mg Tablet 650 mg PO Q6H PRN (Reason: Headache/Pain Mild Scale (1-3)) Qty: 0 0RF paroxetine HCl 10 mg Tablet 10 mg PO DAILY Qty: 0 0RF naproxen 500 mg Tablet 500 mg PO BID PRN (Reason: Pain, Moderate (Pain Scale 4-6) Qty: 0 0RF hydroxyzine HCl 25 mg Tablet 25 mg PO BEDTIME PRN (Reason: Anxiety) Qty: 0 0RF levothyroxine 75 mcg Tablet 75 mcg PO DAILY@0630 Qty: 0 0RF metformin 500 mg Tablet 500 mg PO BIDWM 30 Days Qty: 60 0RF lidocaine [Lidocaine Pain Relief] 4 % Adhesive Patch,Medicated 1 patch transdermal DAILY 30 Days Qty: 30 0RF Protocol: Apply to: Apply to: left lower back albuterol sulfate 90 mcg/actuation Hfa Aerosol Inhaler 2 puff inhalation RQ4H PRN (Reason: Shortness Of Breath) 30 Days Qty: 1 0RF metoprolol succinate 100 mg Tablet Extended Release 24 Hr 100 mg PO DAILY Qty: 0 0RF Protocol: Hold for SBP/HR < HOLD for SBP < : 90 HOLD for HR < : 60 olanzapine 2.5 mg Tablet 2.5 mg PO DAILY Qty: 0 0RF olanzapine 2.5 mg Tablet 2.5 mg PO DAILY PRN (Reason: anxiety somatic preoccupation ) Qty: 0 0RF trazodone 100 mg Tablet 100 mg PO BEDTIME Qty: 0 0RF gabapentin 300 mg Capsule 300 mg PO DAILY PRN (Reason: anxiety) Qty: 0 0RF gabapentin 300 mg Capsule 300 mg PO BID Qty: 0 0RF melatonin 3 mg Tablet 6 mg PO BEDTIME Qty: 0 0RF gabapentin 300 mg capsule 300 mg PO BID 30 Days Qty: 60 0RF lorazepam [Ativan] 0.5 mg tablet 0.5 mg PO BEDTIME PRN (Reason: anxiety) Qty: 10 0RF cyclobenzaprine 10 mg tablet 10 mg PO Q8H Qty: 20 0RF oxycodone 5 mg tablet 5 mg PO Q6H PRN (Reason: pain) Qty: 20 0RF Rx Instructions: Partial Fill upon patient request.
[2022-08-19 14:57] LABS: MANUAL DIFF FLAG NO
[2022-08-19 15:00] LABS: Appearance Urine Clear; Color Urine Yellow; Glucose Urine UA Negative (Negative); Leukocyte Esterase Urine Negative (Negative); Nitrite Urine Negative (Negative); Specific Gravity - Urine <= 1.005 (1.005-1.025); Urine Blood Negative (Negative); Urine Ketones Negative (Negative); Urine Protein Negative (Neg-Trace)
[2022-08-19 15:01] LABS: Basophils Absolute Auto 0.1 X10*3/uL (0.0-0.2); Basophils Percent Auto 1.1 % (0-2); Eosinophils Absolute Auto 0.3 X10*3/uL (0.0-0.4); Eosinophils Percent Auto 4.9 % (0-4); Hematocrit 38.5 % (42.0-52.0); Hemoglobin 13.1 g/dl (14.0-18.0); Imm Gran Abs Auto 0.07 X10*3/uL (0.00-0.03); Imm Gran Pct Auto 1.1 % (0.0-0.4); Lymphocytes Absolute Auto 1.5 X10*3/uL (1.2-4.9); Lymphocytes Percent Auto 23.8 % (20-40); Mean Corpuscular Hemoglobin 29.6 pg (27.0-33.0); Mean Corpuscular Volume 86.9 fL (80.0-98.0); Mean Platelet Volume 10.9 fL (9.4-12.4); Monocytes Absolute Auto 0.6 X10*3/uL (0.1-1.2); Monocytes Percent Auto 9.5 % (2-11); Neutrophils Absolute Auto 3.8 x10*3/uL (2.0-8.3); Neutrophils Percent Auto 59.6 % (45-73); Platelet Count 106 X10*3/uL (160-400); Red Blood Count 4.43 X10*6/uL (4.60-5.80); Red Cell Distribution Width 12.5 % (11.0-16.0); White Blood Count 6.3 X10*3/uL (4.8-10.8)
[2022-08-19 15:09] LABS: Amphetamine Screen Urine Not Detected (Not Detect); Barbiturates, Urine Not Detected (Not Detect); Benzodiazepines Screen Urine Not Detected (Not Detect); Cannabinoid Screen Urine Not Detected (Not Detect); Cocaine Screen Urine Not Detected (Not Detect); Fentanyl, urine Not Detected (Not Detect); Opiate Screen Urine Not Detected (Not Detect); Phencyclidine Screen Urine Not Detected (Not Detect)
--- NOTE | 2022-08-19 15:17 | ECG_ITS ---
Test Reason : SYNCOPE Blood Pressure : / mmHG Vent. Rate : 078 BPM Atrial Rate : 078 BPM P-R Int : 200 ms QRS Dur : 168 ms QT Int : 452 ms P-R-T Axes : 050 110 057 degrees QTc Int : 515 ms Normal sinus rhythm Right bundle branch block Left posterior fascicular block Abnormal ECG When compared with ECG of 11-JUL-2022 12:09, No significant change was found Referred By: Kevin Kenyon Electronically Signed By:Bryan Juarez
[2022-08-19 15:24] LABS: Alanine Aminotransferase 16 U/L (0-40); Albumin Level 4.1 g/dL (3.5-5.0); Alkaline Phosphatase 76 U/L (39-117); Anion Gap 15 (12-20); Aspartate Amino Transferase 14 U/L (5-37); Bilirubin Total 1.3 mg/dL (0.0-1.0); Blood Urea Nitrogen 16 mg/dL (9-16); Calcium 8.3 mg/dL (8.4-10.2); Carbon Dioxide 23 mmol/L (22-29); Chloride 106 mmol/L (96-108); Creatinine Clr Calc Pharmacy 69.1; Estimated Glomerular Filt Rate 55; Ethanol < 10 mg/dL; Glucose Random 122 mg/dL (60-115); Potassium 4.2 mmol/L (3.3-5.1); Sodium 140 mmol/L (135-145); Total Protein 6.8 g/dL (6.5-8.0)
[2022-08-19] MEDS: LORazepam 1 MG TABLET PO (15:25)
[2022-08-19 15:29] LABS: Acetaminophen LAB < 17 mcg/mL (<30); Salicylate < 5.0 mg/dL (15-30)
--- NOTE | 2022-08-19 17:13 | PHA.MEDREC ---
Pharmacy Consult ? Medication Reconciliation Pharmacy has completed the medication reconciliation. Spoke with patient in ED. Patient was able to confirm all medications
[2022-08-19 22:13] VITALS: BP 141/79; PULSE 85; RESP 18; TEMP 36.4; O2SAT 98
--- NOTE | 2022-08-19 22:55 | PC.NURSE ---
Provider requested to approve med rec/pending approval
[2022-08-19 23:25] LABS: Glucose, Whole Blood 110 mg/dL (60-115)
[2022-08-20] VITALS (7 sets, daily range): BP systolic 109–153; BP diastolic 61–92; PULSE 76–87; RESP 15–18; TEMP 36.2–36.8; O2SAT 95–98
[2022-08-20 01:57] LABS: COVID-19 Test Negative (Negative); IDNOW Serial# 6674DD1D
[2022-08-20] MEDS: risperiDONE 0.5 MG TABLET 1.5 MG PO ×2 (02:19→20:16)
[2022-08-20] MEDS: traZODone HCL 50 MG TABLET PO ×2 (02:19→20:16)
[2022-08-20] MEDS: Sotalol HCL 80 MG TABLET PO ×3 (02:20→20:38)
[2022-08-20] MEDS: Levothyroxine Sodium 75 MCG TABLET PO (06:23)
[2022-08-20] MEDS: lisinopriL 2.5 MG TABLET PO (09:05)
[2022-08-20] MEDS: Isosorbide Mononitrate 30 MG TAB.ER.24H PO (09:05)
--- NOTE | 2022-08-20 09:11 | PC.NURSE ---
Pt admits to SI, AH, And VH. Pt is reporting he found hid Mother on the Couch 3 years ago, and that Mothers Day was hard for him. He is having AH, VH of his Mother. He wants to go in-Pt and does not feel safe to be discharged at this time. Pt is alert and oriented. Speech is clear with some developmental disability noted.
--- NOTE | 2022-08-20 09:43 | ECG_ITS ---
Test Reason : CHES PAIN Blood Pressure : / mmHG Vent. Rate : 075 BPM Atrial Rate : 075 BPM P-R Int : 218 ms QRS Dur : 178 ms QT Int : 458 ms P-R-T Axes : 079 109 065 degrees QTc Int : 511 ms Sinus rhythm with 1st degree A-V block Right bundle branch block Abnormal ECG When compared with ECG of 19-AUG-2022 15:22, No significant change was found Referred By: Zeynep Ivory Electronically Signed By:Bryan Juarez
--- NOTE | 2022-08-20 09:49 | HE.PHANOTE ---
patient is on sotalol continued from home medications. qtc was 515, contacted , Kevin Kenyon, who clarified that patient has RBBB and he believes the elevation is due to this
--- NOTE | 2022-08-20 09:54 | PC.NURSE ---
Pt c/o chest pain and pacer going off. EKG obtained, vitals obtained, MD in.
--- NOTE | 2022-08-20 10:08 | PC.NURSE ---
Pt moved to Main ED for reports of chest pain.
[2022-08-20] MEDS: ondansetron HCL 4 MG/2 ML VIAL IVPUSH ×2 (10:43→12:09)
[2022-08-20] MEDS: Morphine Sulfate 4 MG/ML CARTRIDGE IVPUSH ×2 (10:43→12:09)
[2022-08-20 10:47] LABS: MANUAL DIFF FLAG NO
[2022-08-20 10:49] LABS: Basophils Absolute Auto 0.1 X10*3/uL (0.0-0.2); Basophils Percent Auto 1.3 % (0-2); Eosinophils Absolute Auto 0.3 X10*3/uL (0.0-0.4); Eosinophils Percent Auto 5.4 % (0-4); Hematocrit 38.2 % (42.0-52.0); Hemoglobin 13.1 g/dl (14.0-18.0); Imm Gran Abs Auto 0.07 X10*3/uL (0.00-0.03); Imm Gran Pct Auto 1.3 % (0.0-0.4); Lymphocytes Absolute Auto 1.1 X10*3/uL (1.2-4.9); Lymphocytes Percent Auto 19.8 % (20-40); Mean Corpuscular HGB Conc 34.3 g/dl (31.0-36.0); Mean Corpuscular Hemoglobin 29.5 pg (27.0-33.0); Mean Platelet Volume 11.3 fL (9.4-12.4); Monocytes Absolute Auto 0.5 X10*3/uL (0.1-1.2); Monocytes Percent Auto 8.8 % (2-11); Neutrophils Absolute Auto 3.6 x10*3/uL (2.0-8.3); Neutrophils Percent Auto 63.4 % (45-73); Red Blood Count 4.44 X10*6/uL (4.60-5.80); Red Cell Distribution Width 12.4 % (11.0-16.0); White Blood Count 5.6 X10*3/uL (4.8-10.8)
--- NOTE | 2022-08-20 10:50 | PC.NURSE ---
pt moved from the psych pod because pt reported being shocked once by his packamer, also having left sided chest pain that radiates down to his left arm with nausea, pain described as pressure. skin pwd, respirations even and unlabored, ns on the monitor. and sitter in place
[2022-08-20 10:51] LABS: Platelet Count 96 X10*3/uL (160-400)
[2022-08-20 10:53] LABS: INTERNATIONAL NORM RATIO 1.1 (0.9-1.1); Prothrombin Time 12.5 SEC (10.0-13.1)
[2022-08-20 10:56] LABS: Partial Thromboplastin Time 31.6 SEC (26.0-36.4)
[2022-08-20 11:21] LABS: Alanine Aminotransferase 15 U/L (0-40); Albumin Level 3.9 g/dL (3.5-5.0); Alkaline Phosphatase 74 U/L (39-117); Anion Gap 11 (12-20); Aspartate Amino Transferase 14 U/L (5-37); Bilirubin Total 1.1 mg/dL (0.0-1.0); Blood Urea Nitrogen 15 mg/dL (9-16); Calcium 8.5 mg/dL (8.4-10.2); Carbon Dioxide 27 mmol/L (22-29); Chloride 106 mmol/L (96-108); Creatinine Clr Calc Pharmacy 85.9; Estimated Glomerular Filt Rate > 60; Glucose Random 133 mg/dL (60-115); Potassium 4.3 mmol/L (3.3-5.1); Sodium 140 mmol/L (135-145); Total Protein 6.5 g/dL (6.5-8.0)
[2022-08-20 11:25] LABS: B Type Natriuretic Peptide 76 pg/mL (<100)
[2022-08-20 11:43] LABS: Troponin-I High Sensitivity < 2.7 ng/L (<3.5-35.0)
--- NOTE | 2022-08-20 11:54 | PC.NURSE ---
pt reports that the pain in the chest is coming back again, pain at 8/10
--- NOTE | 2022-08-20 14:15 | PC.NURSE ---
pt reports no chest pain at this time,
[2022-08-20 15:16] LABS: Troponin-I High Sensitivity < 2.7 ng/L (<3.5-35.0)
[2022-08-20] MEDS: Rivaroxaban 15 MG TABLET PO (16:04)
[2022-08-20] MEDS: Gabapentin 300 MG CAPSULE PO (20:16)
[2022-08-20] MEDS: Tamsulosin HCL 0.4 MG CAPSULE PO (20:16)
[2022-08-20] MEDS: Acetaminophen 325 MG TABLET 975 MG PO (23:29)
[2022-08-20] MEDS: hydrOXYzine HCL 50 MG TABLET PO (23:29)
--- NOTE | 2022-08-21 06:19 | PC.NURSE ---
Patient slept through the night, no distress observed/reported, medication compliant, patient was cleared medically once again, disposition per care team is section 12 inpatient bed search, VS at baseline, will continue to monitor.
[2022-08-21] MEDS: Levothyroxine Sodium 75 MCG TABLET PO (06:31)
[2022-08-21 06:34] VITALS: BP 129/78; PULSE 82; RESP 16; TEMP 37.2; O2SAT 92
[2022-08-21] MEDS: Isosorbide Mononitrate 30 MG TAB.ER.24H PO (08:31)
[2022-08-21] MEDS: lisinopriL 2.5 MG TABLET PO (08:31)
[2022-08-21] MEDS: Sotalol HCL 80 MG TABLET PO ×2 (08:31→23:08)
[2022-08-21] MEDS: hydrOXYzine HCL 50 MG TABLET PO (11:25)
[2022-08-21] MEDS: Rivaroxaban 15 MG TABLET PO (16:46)
[2022-08-21] MEDS: Acetaminophen 325 MG TABLET 975 MG PO (17:24)
--- NOTE | 2022-08-21 19:34 | PC.NURSE ---
Report received from JERRELL Funez Pt scheduled to go upstairs to [facility] room 512-2. Pt is calm and cooperative with this RN, excited about going inpatient
[2022-08-21] MEDS: risperiDONE 0.5 MG TABLET 1.5 MG PO (21:54)
[2022-08-21] MEDS: Tamsulosin HCL 0.4 MG CAPSULE PO (21:54)
[2022-08-21] MEDS: Gabapentin 300 MG CAPSULE PO (21:54)
[2022-08-21] MEDS: traZODone HCL 50 MG TABLET PO (21:54)
--- NOTE | 2022-08-21 22:05 | PC.NURSE ---
unable to give Sotalol, med not available down in ED. Pharmacy called, they said they would bring it down. In the meantime, [facility] came down to grab the patient, [facility] states that they have Sotalol on their unit. Pharmacy called back and informed
[2022-08-21 22:52] VITALS: BMI 36.5
--- NOTE | 2022-08-22 | ECG_ITS ---
Test Reason : stroke symptoms Blood Pressure : / mmHG Vent. Rate : 089 BPM Atrial Rate : 089 BPM P-R Int : 192 ms QRS Dur : 182 ms QT Int : 428 ms P-R-T Axes : 065 109 039 degrees QTc Int : 520 ms Sinus rhythm with occasional Premature ventricular complexes Right bundle branch block Abnormal ECG When compared with ECG of 20-AUG-2022 09:45, Premature ventricular complexes are now Present Referred By: Ioana Castelan Electronically Signed By:PEPE CABALLERO
[2022-08-22] MEDS: Levothyroxine Sodium 75 MCG TABLET PO (05:59)
[2022-08-22] MEDS: lisinopriL 2.5 MG TABLET PO (08:07)
[2022-08-22] MEDS: Sotalol HCL 80 MG TABLET PO ×2 (08:08→20:13)
[2022-08-22] MEDS: Isosorbide Mononitrate 30 MG TAB.ER.24H PO (08:08)
[2022-08-22 08:20] VITALS: BP 133/73; PULSE 82; RESP 18; TEMP 35.9; O2SAT 94
[2022-08-22 08:48] LABS: Estimated Average Glucose 126 mg/dL
[2022-08-22] MEDS: Acetaminophen 325 MG TABLET 975 MG PO (09:01)
[2022-08-22 09:03] LABS: Cholesterol 230 mg/dL; HDL Cholesterol 44 mg/dL; LDL Cholesterol Calculated 153 mg/dl; Magnesium 2.2 mg/dL (1.6-2.6); Triglycerides 169 mg/dL
[2022-08-22 09:31] LABS: Folate 9.1 ng/mL (> or = 4.0); Free T4 (Free Thyroxine) 1.32 ng/dL (0.71-1.85); Thyroid Stimulating Hormone 1.88 uIU/mL (0.32-4.0); Vitamin B12 329 pg/mL (200-900)
[2022-08-22] MEDS: Ondansetron ODT 4 MG TAB.RAPDIS TRANSLINGU (13:43)
--- NOTE | 2022-08-22 14:02 | HO.PSYADMNOT ---
Documented by User: Lois Magaña NP 08/23/22 15:30 HPI Date of Service: 08/22/22 Chief Complaint: anxiety Sources of Information: patient interviewed, chart reviewed and crisis/core team assessment reviewed HPI Subjective Notes: Conditional Voluntary Narrative: Patient is a 62 year old male with pacemaker/defibrillator, COPD, developmental delay, who self presented to [facility] with suicidal ideation to OD on his medications secondary to increased ongoing depression d/t loss of his mother 3 years ago and chronic medical issues. Patient reports his symptoms began to worsen on Mother's day, where he began to hear his mothers voice saying why? . Patient reports this is the first time he has ever experienced AH. Patient stated, I feel guilty for finding her the way I did, she was laying on the couch with her mouth open and pointing towards the ceiling. I think she was trying to yell for help but I didn't hear her . Patient reports having suicidal ideation at this time. Patient stated, If you send me home today, I would kill myself. Patient reports he is able to remain safe on the unit and will reach out to staff if feeling impulsive. Patient denies HI/VH/AH at this time. Past Psychiatric History: long h/o crisis evaluations, inpatient stays, reported SI. reported h/o SIB (cutting self with broken CD, taking 8 pills of the same medication at once. both instances occurred while hospitalized). no current outpt providers, PCP prescribes psych meds currently. Medical Evaluation Reviewed: Yes [facility] Medical History Anxiety Artificial cardiac pacemaker Asthma Cardiac defibrillator in place COPD (chronic obstructive pulmonary disease) Depression Developmental delay, mild Diabetes GERD (gastroesophageal reflux disease) History of ETOH abuse Hyperlipidemia Hypertension Hyperthyroidism RBBB Seizure Sleep apnea Surgical History History of cardiac cath Family History: sibs have h/o alcohol use disorder Social History: developmentally disabled. 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 lives in a shared apartment with people he knows from AA and NA. he spends time with those friends and with a brother and sister. HS grad with support. mother three years ago, he was very close with her. Substance History: hx of detox and section 35. Trauma History: none described Diagnostics Vital Signs (24Hr): Vital Signs - 24 hr 08/22/22 08:20 Temperature 96.7 F L Pulse Rate 82 Respiratory Rate 18 Blood Pressure 133/73 Pulse Oximetry 94 Oxygen Delivery Method Room Air BMI result Body Mass Index 36.5 Labs 08/20/22 10:40 08/20/22 10:40 Labs: Laboratory Results - last 48 hr 08/20/22 08/22/22 08/22/22 14:08 08:14 08:14 Estimat Average Glucose 126 Hemoglobin A1c % 6.0 Magnesium 2.2 Troponin I High Sens < 2.7 Triglycerides 169 Cholesterol 230 LDL Cholesterol, Calc 153 HDL Cholesterol 44 Vitamin B12 329 Folate 9.1 TSH 1.88 Free T4 1.32 Imaging Radiology Impressions: ITS Impressions Chest X-Ray 08/20/22 10:50 IMPRESSION: 1. No acute cardiopulmonary findings. 2. Stable cardiomegaly. Meds/Allergies Meds Home Medications Medication Instructions Recorded Confirmed Type acetaminophen 500 mg tablet 1,000 mg PO Q6H PRN pain 08/19/22 08/19/22 History albuterol sulfate 90 mcg/actuation 2 puff inhalation Q4H PRN 08/19/22 08/19/22 History aerosol inhaler Shortness Of Breath calcium carbonate 200 mg calcium 200 mg PO Q4H PRN Indigestion 08/19/22 08/19/22 History (500 mg) chewable tablet (Calcium Antacid) cyclobenzaprine 10 mg tablet 5 mg PO TID PRN muscle spasm 08/19/22 08/19/22 History gabapentin 300 mg capsule 300 mg PO BEDTIME 08/19/22 08/19/22 History hydroxyzine pamoate 50 mg capsule 50 mg PO BID PRN Anxiety 08/19/22 08/19/22 History melatonin 10 mg-lemon balm leaf 1 tab PO BEDTIME PRN insomnia 08/19/22 08/19/22 History extract 1 mg tablet nitroglycerin 0.4 mg sublingual 0.4 mg sublingual Q5M PRN Chest 08/19/22 08/19/22 History tablet Pain ondansetron 4 mg disintegrating 4 mg PO Q6H PRN nausea/vomiting 08/19/22 08/19/22 History tablet risperidone 1 mg tablet 1.5 mg PO BEDTIME 08/19/22 08/19/22 History rivaroxaban 15 mg tablet (Xarelto) 15 mg PO DAILY@1700 08/19/22 08/19/22 History sotalol 80 mg tablet 80 mg PO BID 08/19/22 08/19/22 History tamsulosin 0.4 mg capsule 0.4 mg PO BEDTIME 08/19/22 08/19/22 History tramadol 50 mg tablet 50 mg PO Q6H PRN Pain 08/19/22 08/19/22 History trazodone 50 mg tablet 50 mg PO BEDTIME 08/19/22 08/19/22 History Allergies Allergies Allergy/AdvReac Type Severity Reaction Status Date / Time aripiprazole [From Abilify] Allergy Severe Rash Verified 08/19/22 14:29 peas Allergy Severe HIVES Verified 08/19/22 14:29 atorvastatin [From Lipitor] Allergy Intermediate Hives Verified 08/19/22 14:29 bee pollen [bee stings] AdvReac Severe Anaphylaxis Verified 08/19/22 14:29 Mental Status Exam Mental Status Exam Narrative: Pt is alert and oriented; behavior is cooperative, friendly and calm; patient is not in distress; dressed in casual attire; mood is described as anxious ; eye contact appropriate; Speech is normal rate, volume and prosody and not pressured; no psychomotor agitation/retardation present; thought process is organized and goal directed; Thought content is on tx; otherwise pertinent to relevant topics and without any delusional content, paranoid ideations or grandiosity; Patient reports suicidal ideation to OD on medications if discharged home; denies any HI. There is no evidence of perceptual disturbance. Patients insight and judgment is poor. Assessment & Plan Assessment & Plan (1) Depression with suicidal ideation: Status: Acute Code(s): F32.A - Depression, unspecified; R45.851 - Suicidal ideations Plan Patient is a 62 year old male with pacemaker/defibrillator, COPD, developmental delay, who self presented to [facility] with suicidal ideation to OD on his medications secondary to increased ongoing depression d/t loss of his mother 3 years ago and chronic medical issues. Patient reports he would like his mood and anxiety improved but is concerned about starting new medications. He reports Seroquel has been helpful in the past. Will discuss this further with patient. Later in the day, patient complained of off sudden onset of left-sided weakness. Patient was immediately examined and was ambulating, using all his limbs symmetrically without any issue, no facial droop or neurological deficits via observation. He said that the weakness fully resolved and that this had happened to him recently where he was evaluated [facility] and they did find anything and said he thinks it is just due to anxiety. Patient has a long history of frequent somatic complaints. Situation is complex as patient has both cardiac history and psycho-somatic symptoms. Will place medical consult for help in assessing. CV 15 min safety checks Will continue Risperdal 1.5 mg q.h.s. for now; however patient does not seem to have any psychotic illness so will have to explore whether this is necessary Otherwise Continue other home medications Obtain additional information from patient Patient educated on: medication risk/benefits Informed Consent: further education needed Reason for continued inpatient stay Substantial Risk for: harm to self and med/psych decompensation Statement Statement: I have reviewed the history and physical and performed a pertinent examination on my patient. No changes have occurred unless specified. If the History and Physical was not performed prior to admission, the Hospitalist's service will be consulted for completing the admission physical. Time Spent With Patient Time: Total time managing care of this patient today ____ minutes. Documented by User: Trev Gomez MD 08/23/22 15:51 HPI Chief Complaint: anxiety HPI Narrative: Patient is a 62 year old male with pacemaker/defibrillator, COPD, hx of Qtc prolongation, developmental delay, who self presented to [facility] with suicidal ideation to OD on his medications secondary to increased ongoing depression d/t loss of his mother 3 years ago and chronic medical issues. Patient reports his symptoms began to worsen on Mother's day, where he began to hear his mothers voice saying why? . Patient reports this is the first time he has ever experienced AH. Patient stated, I feel guilty for finding her the way I did, she was laying on the couch with her mouth open and pointing towards the ceiling. I think she was trying to yell for help but I didn't hear her . Patient reports having suicidal ideation at this time. Patient stated, If you send me home today, I would kill myself. Patient reports he is able to remain safe on the unit and will reach out to staff if feeling impulsive. Patient denies HI/VH/AH at this time. The patient states that 1 week prior his defibrillator fired and he passed out for a brief period of time .? He states he fell backwards and hit his head.? He was seen at [facility] and had a negative workup including a negative CT scan.? He states that after being discharged from [facility] he developed nausea vomiting was seen at [facility].? He states that since that time he has had an occasional headache. I did review to patient's cardiology consult note by Dr. Dennison dated 09/23/2021 and the following information was obtained: ...consultation today for noted QT prolongation on the EKG in the setting of wide QRS complex with right bundle-branch block.? Joaquín milan prior medical history follows with Dr. Nix at [facility].? He has a defibrillator, prior tetralogy of Fallot repair, last echocardiogram from last October at [facility] showed mild LV systolic dysfunction as well as dilated RV.? He also has moderately dilated aortic root at 5 cm.? Reported as having mild pulmonary regurgitation.? Patient has multiple hospitalization due to chest pain syndrome which has been labile as noncardiac.? Patient is very frustrated with this chest pain syndrome and as a result had suicidal ideation.? He was therefore admitted to Behavioral Unit here for suicidal ideation.? Plan to start him on psychiatric medication there was concern about QT prolongation and cardiology consult was sought.? Patient currently continues to have these intermittent chest pain syndromes of unclear etiology but appears to be clearly not ischemic.? Workup in the past has been negative.? He denies any palpitations.? He said last Monday he had a shock from his device and was checked and he was told that there was no clear device discharge and this appears to be more of for phantom shock, question psychological. [facility] Medical History Anxiety Artificial cardiac pacemaker Asthma Cardiac defibrillator in place COPD (chronic obstructive pulmonary disease) Depression Developmental delay, mild Diabetes GERD (gastroesophageal reflux disease) History of ETOH abuse Hyperlipidemia Hypertension Hyperthyroidism RBBB Seizure Sleep apnea Surgical History History of cardiac cath Diagnostics Labs 08/20/22 10:40 08/20/22 10:40 Meds/Allergies Meds Home Medications Medication Instructions Recorded Confirmed Type acetaminophen 500 mg tablet 1,000 mg PO Q6H PRN pain 08/19/22 08/19/22 History albuterol sulfate 90 mcg/actuation 2 puff inhalation Q4H PRN 08/19/22 08/19/22 History aerosol inhaler Shortness Of Breath calcium carbonate 200 mg calcium 200 mg PO Q4H PRN Indigestion 08/19/22 08/19/22 History (500 mg) chewable tablet (Calcium Antacid) cyclobenzaprine 10 mg tablet 5 mg PO TID PRN muscle spasm 08/19/22 08/19/22 History gabapentin 300 mg capsule 300 mg PO BEDTIME 08/19/22 08/19/22 History hydroxyzine pamoate 50 mg capsule 50 mg PO BID PRN Anxiety 08/19/22 08/19/22 History melatonin 10 mg-lemon balm leaf 1 tab PO BEDTIME PRN insomnia 08/19/22 08/19/22 History extract 1 mg tablet nitroglycerin 0.4 mg sublingual 0.4 mg sublingual Q5M PRN Chest 08/19/22 08/19/22 History tablet Pain ondansetron 4 mg disintegrating 4 mg PO Q6H PRN nausea/vomiting 08/19/22 08/19/22 History tablet risperidone 1 mg tablet 1.5 mg PO BEDTIME 08/19/22 08/19/22 History rivaroxaban 15 mg tablet (Xarelto) 15 mg PO DAILY@1700 08/19/22 08/19/22 History sotalol 80 mg tablet 80 mg PO BID 08/19/22 08/19/22 History tamsulosin 0.4 mg capsule 0.4 mg PO BEDTIME 08/19/22 08/19/22 History tramadol 50 mg tablet 50 mg PO Q6H PRN Pain 08/19/22 08/19/22 History trazodone 50 mg tablet 50 mg PO BEDTIME 08/19/22 08/19/22 History Allergies Allergies Allergy/AdvReac Type Severity Reaction Status Date / Time aripiprazole [From [facility]] Allergy Severe Rash Verified 08/19/22 14:29 peas Allergy Severe HIVES Verified 08/19/22 14:29 atorvastatin [From Lipitor] Allergy Intermediate Hives Verified 08/19/22 14:29 bee pollen [bee stings] AdvReac Severe Anaphylaxis Verified 08/19/22 14:29 Assessment & Plan Assessment & Plan (1) Depression with suicidal ideation: Status: Acute Code(s): F32.A - Depression, unspecified; R45.851 - Suicidal ideations Plan Patient is a 62 year old male with pacemaker/defibrillator, COPD, developmental delay, who self presented to [facility] with suicidal ideation to OD on his medications secondary to increased ongoing depression d/t loss of his mother 3 years ago and chronic medical issues. Patient reports he would like his mood and anxiety improved but is concerned about starting new medications. He reports Seroquel has been helpful in the past. Will discuss this further with patient. Later in the day, patient complained of sudden onset of left-sided weakness. Patient was immediately examined and was ambulating, using all his limbs symmetrically without any issue, no facial droop or neurological deficits via observation. He said that the weakness fully resolved and that this had happened to him recently where he was evaluated [facility] and they did find anything and said he thinks it is just due to anxiety. Patient has a long history of frequent somatic complaints. Situation is complex as patient has both cardiac history and psycho-somatic symptoms. Will place medical consult for help in assessing. Of note ED provider also reports history of multiple noncardiac presentations for chest pain Patient has multiple hospitalization due to chest pain syndrome which has been labile as noncardiac...currently continues to have these intermittent chest pain syndromes of unclear etiology but appears to be clearly not ischemic. CV 15 min safety checks Will continue Risperdal 1.5 mg q.h.s. for now; however patient does not seem to have any psychotic illness so will have to explore whether this is necessary Otherwise Continue other home medications Obtain additional information from patient
[2022-08-22] MEDS: hydrOXYzine HCL 50 MG TABLET PO ×2 (16:12→23:30)
[2022-08-22] MEDS: Rivaroxaban 15 MG TABLET PO (16:12)
[2022-08-22 16:35] VITALS: BP 145/69; PULSE 81; TEMP 35.8; O2SAT 97
--- NOTE | 2022-08-22 17:27 | PC.NURSE ---
at approx 1550 pt reported left sided numbness of the hands and feet. Pt vital signs are 96.4, 145/69, 81, 97%. Pt has a hx of TIA 1 month ago and spent 1 night at [facility] for same symptoms. Pt rates anxiety 12/11. Pt provider notified and saw pt. Provider ordered a hospitalist consult. Pt offered PRN Atarax, pt took it with good effect. Will continue to monitor.
--- NOTE | 2022-08-22 17:46 | P.CONHOSP_ITS ---
History of Present Illness Data of Consult Service Date: 08/22/22 Requesting physician: Lois Magaña Primary Care Provider: Amari Vyas DO, MD HPI Reason for consult: suddent onset left-sided numbness 62-year-old male with history of CAD with cardiac defibrillator in place, tetralogy of fallot s/p repair, asthma, anxiety / depression, COPD, controlled type 2 diabetes, hypothyroidism, hypertension, hyperlipidemia, GERD, history of seizure disorder, and obstructive sleep apnea admitted to Psychiatry consult placed to hospitalist service for evaluation of sudden onset left-sided paresthesias. He reports he was sitting down watching TV when he began experiencing tingling in the left side of his face in the left upper extremity and left lower extremity. Denies any associated weakness, slurred speech, dysphagia, visual changes. Also endorsing some lightheadedness. Denies any symptoms on the right side of his body. He states staff offered him and Atarax which did not resolve his symptoms. He does not feel anxious at this time. Onset of symptoms was at about 15:50. He was recently admitted overnight at [facility] and diagnosed with TIA with similar symptoms. Symptoms still present. Has been compliant with his xarelto. Review of Systems Review of Systems: Yes all other systems are reviewed and are negative [facility] Medical History (Updated 09/16/22 @ 00:03 by Kahlil Rocha) Anxiety Artificial cardiac pacemaker Asthma Cardiac defibrillator in place COPD (chronic obstructive pulmonary disease) Depression Depression with suicidal ideation Developmental delay, mild Diabetes GERD (gastroesophageal reflux disease) History of ETOH abuse Hyperlipidemia Hypertension Hyperthyroidism RBBB Seizure Sleep apnea Somatoform disorder Surgical History History of cardiac cath Social History Household Members: Other Household Members Other:: 2 roommates Housing: Apartment Housing Other:: Sober House Do you presently have visiting nurse or other home services: No Alcohol intake: former Patient Tobacco Use Status: Never used Tobacco Tobacco use type: Cigarette Second Hand Smoke Exposure: No Substance Use Type: Former Substance User, Prescription Drugs and Caffiene Advance Directives: No Advance Directives Information Provided: Yes service: No Current occupational status: disabled Sexual orientation: Decline to Answer Meds Allergies Allergy/AdvReac Type Severity Reaction Status Date / Time aripiprazole [From Abilify] Allergy Severe Rash Verified 09/08/22 12:37 peas Allergy Severe HIVES Verified 09/08/22 12:37 atorvastatin [From Lipitor] Allergy Intermediate Hives Verified 09/08/22 12:37 bee pollen [bee stings] AdvReac Severe Anaphylaxis Verified 09/08/22 12:37 Active Medications: Current Medications Acetaminophen (Acetaminophen 325 Mg Tablet) 975 mg PO Q6H PRN PRN Reason: pain Last Admin: 08/22/22 09:01 Dose: 975 mg Al Hydroxide/Mg Hydroxide (Magnesium Hydrox/Alum Hydrox 30 Ml Oral.Susp) 30 ml PO Q6H PRN PRN Reason: Heartburn/Nausea Albuterol Sulfate (Albuterol Sulfate 90 Mcg 8 Gm Inhaler) 2 puff INHALE Q4H PRN PRN Reason: Shortness Of Breath Aspirin (Aspirin 81 Mg Tab.Chew) 162 mg PO ONCE ONE Stop: 08/22/22 17:46 Calcium Carbonate (Calcium Carbonate 750 Mg Tab.Chew) 750 mg PO Q4H PRN PRN Reason: Indigestion Cyclobenzaprine HCl (Cyclobenzaprine Hcl 5 Mg Tablet) 5 mg PO TID PRN PRN Reason: muscle spasm Gabapentin (Gabapentin 300 Mg Capsule) 300 mg PO BEDTIME RADHA Last Admin: 08/21/22 21:54 Dose: 300 mg Hydroxyzine HCl (Hydroxyzine Hcl 50 Mg Tablet) 50 mg PO BID PRN PRN Reason: Anxiety Last Admin: 08/22/22 16:12 Dose: 50 mg Isosorbide Mononitrate (Isosorbide Mononitrate 30 Mg Tab.Er.24h) 30 mg PO DAILY [facility]; Protocol Last Admin: 08/22/22 08:08 Dose: 30 mg Levothyroxine Sodium (Levothyroxine Sodium 75 Mcg Tablet) 75 mcg PO DAILY@0630 RADHA Last Admin: 08/22/22 05:59 Dose: 75 mcg Lisinopril (Lisinopril 2.5 Mg Tablet) 2.5 mg PO DAILY [facility]; Protocol Last Admin: 08/22/22 08:07 Dose: 2.5 mg Magnesium Hydroxide (Milk Of Magnesia 30 Ml Oral.Susp) 30 ml PO DAILY PRN PRN Reason: Constipation Nitroglycerin (Nitroglycerin 0.4 Mg Tab.Subl) 0.4 mg SUBLINGUAL Q5M PRN PRN Reason: Chest Pain Ondansetron HCl (Ondansetron Odt 4 Mg Tab.Rapdis) 4 mg TRANSLINGU Q6H PRN PRN Reason: nausea/vomiting Last Admin: 08/22/22 13:43 Dose: 4 mg Pharmacy Consult (Consult Rx Perform Med Rec) 1 each MISCELLANE ONCE PRN PRN Reason: Consult order Risperidone (Risperidone 0.5 Mg Tablet) 1.5 mg PO BEDTIME [facility] Last Admin: 08/21/22 21:54 Dose: 1.5 mg Rivaroxaban (Rivaroxaban 15 Mg Tablet) 15 mg PO DAILY@1700 [facility] Last Admin: 08/22/22 16:12 Dose: 15 mg Sotalol HCl (Sotalol Hcl 80 Mg Tablet) 80 mg PO BID [facility] Last Admin: 08/22/22 08:08 Dose: 80 mg Tamsulosin HCl (Tamsulosin Hcl 0.4 Mg Capsule) 0.4 mg PO BEDTIME [facility] Last Admin: 08/21/22 21:54 Dose: 0.4 mg Trazodone HCl (Trazodone Hcl 50 Mg Tablet) 50 mg PO BEDTIME [facility] Last Admin: 08/21/22 21:54 Dose: 50 mg Home Medications Medication Instructions Recorded Confirmed Last Taken Type acetaminophen 500 mg tablet 1,000 mg PO Q6H PRN pain 08/19/22 09/08/22 Unknown History albuterol sulfate 90 mcg/actuation 2 puff inhalation Q4H PRN 08/19/22 09/08/22 Unknown History aerosol inhaler Shortness Of Breath hydroxyzine pamoate 50 mg capsule 50 mg PO BID PRN Anxiety / Nausea 08/19/22 09/08/22 Unknown History nitroglycerin 0.4 mg sublingual 0.4 mg sublingual Q5M PRN Chest 08/19/22 09/08/22 Unknown History tablet Pain sotalol 80 mg tablet 80 mg PO BID 08/19/22 09/08/22 09/08/22 09:00 History tamsulosin 0.4 mg capsule 0.4 mg PO BEDTIME 08/19/22 09/08/22 09/07/22 History levothyroxine 75 mcg tablet 75 mcg PO DAILY@0600 09/08/22 09/08/22 09/08/22 06:00 History melatonin 5 mg tablet 5 mg PO BEDTIME PRN Insomnia 09/08/22 09/08/22 Unknown History quetiapine 25 mg tablet 25 mg PO BEDTIME 09/08/22 09/08/22 09/07/22 History risperidone 1 mg tablet 1.5 mg PO BEDTIME 09/08/22 09/08/22 09/07/22 History rivaroxaban 20 mg tablet (Xarelto) 20 mg PO DAILY@1800 09/08/22 09/08/22 09/07/22 History trazodone 100 mg tablet 100 mg PO BEDTIME 09/08/22 09/08/22 09/07/22 History Physical Exam Vital Signs and Narrative: Vital Signs: Last Vital Signs Temp 96.4 F L 08/22/22 16:35 Pulse 81 08/22/22 16:35 Resp 18 08/22/22 08:20 BP 145/69 H 08/22/22 16:35 Pulse Ox 97 08/22/22 16:35 O2 Del Method Room Air 08/22/22 16:35 BMI result Body Mass Index 36.5 Constitutional - Awake and Alert, No apparent distress Eyes - PERRLA, EOMI Cardiovascular - S1S2, RRR, No edema Respiratory - Normal lung expansion, Normal respiratory effort, No respiratory distress, CTA bilaterally Gastrointestinal - NT / ND; +BS; No rebound or guarding Extremities - no calf tenderness bilaterally, no swelling Skin - Warm/Dry Neurological - Alert & oriented x3, CN II-XII in tact, 5/5 strength BUE and BLE. Decreased sensation in left face, LUE, LLE. Slight left sided pronator drift, absent left patellar reflex Psychological - Appropriate affect Results Labs 08/20/22 10:40 08/20/22 10:40 Labs: Laboratory Results - last 24 hr 08/22/22 08/22/22 08:14 08:14 Estimat Average Glucose 126 Hemoglobin A1c % 6.0 Magnesium 2.2 Triglycerides 169 Cholesterol 230 LDL Cholesterol, Calc 153 HDL Cholesterol 44 Vitamin B12 329 Folate 9.1 TSH 1.88 Free T4 1.32 Assessment and Plan (1) Paresthesia of left upper and lower extremity: Status: Resolved Plan 62-year-old male with history of CAD with cardiac defibrillator in place, tetralogy of fallot s/p repair, asthma, anxiety / depression, COPD, controlled type 2 diabetes, hypothyroidism, hypertension, hyperlipidemia, GERD, history of seizure disorder, and obstructive sleep apnea admitted to Psychiatry consult placed to hospitalist service for evaluation of sudden onset left-sided pa resthesias. #Sudden onset left-sided parestesias -decreased sensation, left face, LUE, LLE, absent left patellar reflex -recent admission at [facility] per patient for TIA. Must rule out stroke, head CT ordered- negative -Not a tpa candidate as he is on xarelto -Consider anxiety after stroke is ruled out given significant medical history. -Given 162mg asa -POC glucose 196 -LDL 156, statin contraindicated with allergy, reaction hives. Initiate Zetia -neuro consult and MRI (has cardiac defib in place) tomorrow -swallow eval -PT/OT consults Will continue to follow Time Spent With Patient Time: Total time managing care of this patient today ____ minutes.
[2022-08-22 18:11] LABS: Glucose, Whole Blood 194 mg/dL (60-115)
[2022-08-22] MEDS: Aspirin 81 MG TAB.CHEW 162 MG PO (18:13)
[2022-08-22 19:31] VITALS: O2SAT 96
[2022-08-22] MEDS: risperiDONE 0.5 MG TABLET 1.5 MG PO (20:13)
[2022-08-22] MEDS: Gabapentin 300 MG CAPSULE PO (20:13)
[2022-08-22] MEDS: Tamsulosin HCL 0.4 MG CAPSULE PO (20:14)
[2022-08-22] MEDS: Melatonin 3 MG TABLET 9 MG PO (21:50)
[2022-08-22] MEDS: traZODone HCL 50 MG TABLET PO (21:51)
--- NOTE | 2022-08-23 | ECG_ITS ---
Test Reason : chest pain Blood Pressure : / mmHG Vent. Rate : 085 BPM Atrial Rate : 085 BPM P-R Int : 230 ms QRS Dur : 186 ms QT Int : 424 ms P-R-T Axes : 062 103 043 degrees QTc Int : 504 ms Sinus rhythm with 1st degree A-V block Rightward axis Right bundle branch block Abnormal ECG When compared with ECG of 22-AUG-2022 19:59, No significant changes seen Referred By: Mango Izquierdo Electronically Signed By:PEPE CABALLERO
[2022-08-23] MEDS: Levothyroxine Sodium 75 MCG TABLET PO (06:22)
--- NOTE | 2022-08-23 07:00 | CA_ITS ---
Transthoracic Echocardiogram Patient (Last, First, Middle): Joaquín Barrientos, Gender: Male Date of : 1960 Age: 62 Procedure Date: 08/23/2022 Procedure Type: Transthoracic Echocardiogram Location: M5 Height: 172.72 cm Weight: 108.86 kg BSA: 2.21 m2 Heart Rate: bpm BP: 145 / 69 mmHg Sports Umpire: RAPHAEL Referring MD: Ioana BURDICK Symptoms: ?stroke Study Quality: Technically Difficult ECG Rhythm: Sinus Conclusions: - Difficult to assess LVEF or wall motion due to poor image quality; LVEF probably >55%. - Moderately increased right ventricular cavity size. - Bubble study very poor quality due to infiltrated IV. - No obvious valvular pathology seen on this study. - There is moderate dilatation of the sinuses of Valsalva measuring 4.85 cm and mild dilatation of the ascending aorta measuring 3.90 cm. Findings Left Ventricle Normal left ventricular cavity size. There is mildly increased left ventricular wall thickness. Regional wall motion abnormalities can not be excluded due to suboptimal endocardial definition. Diastolic function is normal for age. E/E prime ratio is <8, consistent with normal filling pressures. There is moderate septal asymmetric hypertrophy. Difficult to assess LVEF or wall motion due to poor image quality; LVEF probably >55%. Right Ventricle Moderately increased right ventricular cavity size. There is normal right ventricular systolic function. Atria The left atrium is normal in size. The right atrium is moderately dilated. Bubble study very poor quality due to infiltrated IV. Aortic Valve The aortic valve was not well visualized. There is no aortic valve stenosis. There is trace (trivial) aortic valve regurgitation. Mitral Valve The mitral valve was not well visualized. There is no mitral valve regurgitation. There is no mitral valve stenosis. Pulmonic Valve There is trace pulmonic valve regurgitation. Tricuspid Valve There is trace tricuspid valve regurgitation. There is no evidence of pulmonary hypertension. Great Vessels There is moderate dilatation of the sinuses of Valsalva measuring 4.85 cm and mild dilatation of the ascending aorta measuring 3.90 cm. Venous The inferior vena cava is mildly dilated and collapses less than 50% with inspiration. Pericardium/Pleural There is no evidence of pericardial effusion. Prior Study Comparison Changes noted compared to prior study dated: 04/11/2011. Increase in aortic root dimension. Recommendations, Care & Conclusions No obvious valvular pathology seen on this study. Measurements 2D Linear Measurements IVSd: 1.48 0.6-0.9/0.6-1.0 cm LVIDd: 4.31 3.9-5.3/4.2-5.9 cm LVIDd Index: 1.95 2.4-3.2/2.2-3.1 cm/m2 LVIDs: 2.82 2.0-3.6 cm LVPWd: 1.19 0.7-1.1 cm LA Diam: 3.00 2.7-3.8/3.0-4.0 cm LAIDs Index: 1.36 1.5-2.3 cm/m2 LV Mass: 270.41 67-162/88-224 g LV Mass Index: 122.36 43-95/49-115 g/m2 LVOT Diam: 2.40 3.0+(-)1.3 cm Mitral Valve MV Pk E: 0.55 MV PK A: 1.00 MV Decel Time: 169.00 E/A: 0.60 E'Lateral: 9.79 E'Medial: 6.42 E/E' Med: 8.60 E/E' Lat: 5.60 PHT: 49.00 MVA PHT: 4.49 Decel Benton: 3.27 Aortic Valve AoV Pk Jed: 1.13 AoV Mn Jed: 0.90 AoV VTI: 0.24 AoV Pk Grad: 5.00 Aov Mn Grad: 3.00 JALYN Cont.VTI: 2.64 LVOT LVOT Pk Jed: 0.76 LVOT Mn Jed: 0.49 LVOT VTI: 0.14 LVOT Pk Grad: 2.00 LVOT Mn Grad: 1.00 LVOT Diam: 2.40 LVOT Area: 4.52 Diastolic Function MV Pk E: 0.55 MV Pk A: 1.00 E/A: 0.60 E'Medial: 6.42 E/E' Med: 8.60 E' Laterial: 9.79 E/E' Lat: 5.60 Right Ventricle TAPSE (mm): 21.40 TVS' Jed: 9.90 Tricuspid Valve TR Pk Jed: 2.24 TR Pk Grad: 20.00 RA Press: 15.00 RVSP: 35.00 Great Vessels Aorta Sinus of Valsalva: 4.85 2.0-3.[address] [place]: 3.81 1.7-3.4 cm Ao Asc: 3.90 2.1-3.4 cm Updated in Other Vendor System with Status of Final Bautista Curry MD electronically signed on 08/23/2022 5:42:56 PM with status of Final
[2022-08-23] MEDS: lisinopriL 2.5 MG TABLET PO (08:57)
[2022-08-23] MEDS: Isosorbide Mononitrate 30 MG TAB.ER.24H PO (08:57)
[2022-08-23] MEDS: Sotalol HCL 80 MG TABLET PO ×2 (08:58→21:03)
[2022-08-23] MEDS: hydrOXYzine HCL 50 MG TABLET PO ×2 (09:18→14:36)
[2022-08-23 09:24] VITALS: BP 139/81; PULSE 86; RESP 16; TEMP 36.2; O2SAT 96
[2022-08-23 10:07] LABS: Glucose, Whole Blood 237 mg/dL (60-115)
[2022-08-23 10:15] VITALS: BP 150/101; PULSE 93; TEMP 35.9; O2SAT 95
--- NOTE | 2022-08-23 10:24 | PM.EVENT ---
Event Note Date of Service: 08/23/22 Event Note: Rapid response was called around 9:45. Patient found laying down on the M5 [place] floor. reports that he has tingling sensation in his LUE w chest pain. no nausea, sweating, palpitations or SOB. he sled himself down to the floor. He reported feeling lightheaded. no reported head injury or LOC. On exam; alert. interactive, not distressed but looks anxious. normal S1S2, clear lungs, no abd tenderness, decreased sensation LUE up to shoulder and lower neck, no focal weakness. Vitals stable. EKG down showing chronic changes of RBBB. Trop ordered and pending. PT should evaluate the patient Orthostatic vitals Can not have MRI because of non-compatible PPM CT scan done the night before with no acute abnormalities pending neurology exam for reported tingling sensation (which seems chronic post neck injury >10 years ago) Time Spent With Patient Time: Total time managing care of this patient today ____ minutes.
[2022-08-23 10:59] LABS: Troponin-I High Sensitivity < 2.7 ng/L (<3.5-35.0)
--- NOTE | 2022-08-23 11:07 | HO.PSYCHPN ---
Documented by User: Lois Magaña NP 08/23/22 16:06 Subjective Subjective Date of Service: 08/23/22 Reason For Visit: anxiety Subjective Notes: Conditional Voluntary Interim History: Reviewed in team. Patient reports he continues to feel depressed and anxious, however he states that he is no longer suicidal. Patient states he has been out going to groups and watching tv. Patient reports he is hoping to feel better soon. Patient denies SI, HI, VH, AH at this time. Medication Compliance: Yes Attending Groups: Yes Review of Systems Review of Systems Yes all other systems are reviewed and are negative Constitutional: Reports as per HPI Eyes: Reports as per HPI Reports as per HPI Cardiovascular: Reports as per HPI Respiratory: Reports as per HPI Gastrointestinal: Reports as per HPI Genitourinary: Reports as per HPI Musculoskeletal: Reports as per HPI Skin/Breast: Reports as per HPI Reports as per HPI Psychiatric: Reports as per HPI Endocrine: Reports as per HPI Hematologic/Lymphatic: Reports as per HPI Allergic/Immunologic: Reports as per HPI Mental Status Exam Mental Status Exam Narrative: Pt is alert and oriented; behavior is cooperative, friendly and calm; patient is not in distress; dressed in casual attire; mood is described as anxious ; eye contact appropriate; Speech is normal rate, volume and prosody and not pressured; no psychomotor agitation/retardation present; thought process is organized and goal directed; Thought content is on tx; otherwise pertinent to relevant topics and without any delusional content, paranoid ideations or grandiosity; Patient reports suicidal ideation to OD on medications if discharged home; denies any HI. There is no evidence of perceptual disturbance. Patients insight and judgment appear poor. Diagnostics Vital Signs (24Hr): Vital Signs - 24 hr 08/22/22 16:35 08/22/22 19:31 08/23/22 09:24 Temperature 96.4 F L 97.1 F Pulse Rate 81 86 Respiratory Rate 16 Blood Pressure 145/69 H 139/81 Pulse Oximetry 97 96 96 Oxygen Delivery Method Room Air Room Air Room Air BMI result Body Mass Index 36.5 Labs 08/20/22 10:40 08/20/22 10:40 Labs: Laboratory Results - last 48 hr 08/22/22 08/22/22 08/22/22 08:14 08:14 18:07 POC Glucose 194 H Estimat Average Glucose 126 Hemoglobin A1c % 6.0 Magnesium 2.2 Troponin I High Sens Triglycerides 169 Cholesterol 230 LDL Cholesterol, Calc 153 HDL Cholesterol 44 Vitamin B12 329 Folate 9.1 TSH 1.88 Free T4 1.32 08/23/22 08/23/22 10:03 10:26 POC Glucose 237 H Estimat Average Glucose Hemoglobin A1c % Magnesium Troponin I High Sens < 2.7 Triglycerides Cholesterol LDL Cholesterol, Calc HDL Cholesterol Vitamin B12 Folate TSH Free T4 Imaging Radiology Impressions: ITS Impressions Chest X-Ray 08/20/22 10:50 IMPRESSION: 1. No acute cardiopulmonary findings. 2. Stable cardiomegaly. Head CT 08/22/22 18:00 IMPRESSION: 1. No acute intracranial process seen. 2. Chronic bilateral maxillary sinus inflammatory changes. This critical result was discussed with HEAVENLY Avendano at 6:17 pm on 08/22/2022. It was ascertained that the content and urgency of the report was understood at the time of direct communication. Carotid Doppler Study 08/22/22 20:46 1. IMPRESSION: RIGHT: Normal right internal carotid artery without atherosclerotic plaque or hemodynamically significant stenosis. 2. LEFT: Normal left internal carotid artery without atherosclerotic plaque or hemodynamically significant stenosis. 3. No interval change when compared to the 2012 study Medications Medications Current Medications Acetaminophen (Acetaminophen 325 Mg Tablet) 975 mg PO Q6H PRN PRN Reason: pain Last Admin: 08/22/22 09:01 Dose: 975 mg Al Hydroxide/Mg Hydroxide (Magnesium Hydrox/Alum Hydrox 30 Ml Oral.Susp) 30 ml PO Q6H PRN PRN Reason: Heartburn/Nausea Albuterol Sulfate (Albuterol Sulfate 90 Mcg 8 Gm Inhaler) 2 puff INHALE Q4H PRN PRN Reason: Shortness Of Breath Aspirin (Aspirin Enteric Coated 81 Mg Tablet.Dr) 81 mg PO DAILY [facility] Last Admin: 08/23/22 08:57 Dose: Not Given Calcium Carbonate (Calcium Carbonate 750 Mg Tab.Chew) 750 mg PO Q4H PRN PRN Reason: Indigestion Cyclobenzaprine HCl (Cyclobenzaprine Hcl 5 Mg Tablet) 5 mg PO TID PRN PRN Reason: muscle spasm Ezetimibe (Ezetimibe 10 Mg Tablet) 10 mg PO DAILY [facility] Last Admin: 08/23/22 09:23 Dose: Not Given Gabapentin (Gabapentin 300 Mg Capsule) 300 mg PO BEDTIME [facility] Last Admin: 08/22/22 20:13 Dose: 300 mg Hydroxyzine HCl (Hydroxyzine Hcl 50 Mg Tablet) 50 mg PO BID PRN PRN Reason: Anxiety Last Admin: 08/23/22 09:18 Dose: 50 mg Isosorbide Mononitrate (Isosorbide Mononitrate 30 Mg Tab.Er.24h) 30 mg PO DAILY [facility]; Protocol Last Admin: 08/23/22 08:57 Dose: 30 mg Levothyroxine Sodium (Levothyroxine Sodium 75 Mcg Tablet) 75 mcg PO DAILY@0630 [facility] Last Admin: 08/23/22 06:22 Dose: 75 mcg Lisinopril (Lisinopril 2.5 Mg Tablet) 2.5 mg PO DAILY [facility]; Protocol Last Admin: 08/23/22 08:57 Dose: 2.5 mg Magnesium Hydroxide (Milk Of Magnesia 30 Ml Oral.Susp) 30 ml PO DAILY PRN PRN Reason: Constipation Melatonin (Melatonin 3 Mg Tablet) 9 mg PO BEDTIME [facility] Last Admin: 08/22/22 21:50 Dose: 9 mg Nitroglycerin (Nitroglycerin 0.4 Mg Tab.Subl) 0.4 mg SUBLINGUAL Q5M PRN PRN Reason: Chest Pain Ondansetron HCl (Ondansetron Odt 4 Mg Tab.Rapdis) 4 mg TRANSLINGU Q6H PRN PRN Reason: nausea/vomiting Last Admin: 08/22/22 13:43 Dose: 4 mg Pharmacy Consult (Consult Rx Perform Med Rec) 1 each MISCELLANE ONCE PRN PRN Reason: Consult order Risperidone (Risperidone 0.5 Mg Tablet) 1.5 mg PO BEDTIME [facility] Last Admin: 08/22/22 20:13 Dose: 1.5 mg Rivaroxaban (Rivaroxaban 15 Mg Tablet) 15 mg PO DAILY@1700 [facility] Last Admin: 08/22/22 16:12 Dose: 15 mg Sotalol HCl (Sotalol Hcl 80 Mg Tablet) 80 mg PO BID [facility] Last Admin: 08/23/22 08:58 Dose: 80 mg Tamsulosin HCl (Tamsulosin Hcl 0.4 Mg Capsule) 0.4 mg PO BEDTIME [facility] Last Admin: 08/22/22 20:14 Dose: 0.4 mg Trazodone HCl (Trazodone Hcl 50 Mg Tablet) 50 mg PO BEDTIME [facility] Last Admin: 08/22/22 21:51 Dose: 50 mg Allergies Allergies Allergy/AdvReac Type Severity Reaction Status Date / Time aripiprazole [From Abilify] Allergy Severe Rash Verified 08/19/22 14:29 peas Allergy Severe HIVES Verified 08/19/22 14:29 atorvastatin [From Lipitor] Allergy Intermediate Hives Verified 08/19/22 14:29 bee pollen [bee stings] AdvReac Severe Anaphylaxis Verified 08/19/22 14:29 Assessment & Plan Assessment & Plan (1) Paresthesia of left upper and lower extremity: Status: Acute Code(s): R20.2 - Paresthesia of skin Plan Patient is a 62 year old male with pacemaker/defibrillator, COPD, developmental delay, who self presented to [facility] with suicidal ideation to OD on his medications secondary to increased ongoing depression d/t loss of his mother 3 years ago and chronic medical issues. Patient reports he would like his mood and anxiety improved but is concerned about starting new medications. He reports Seroquel has been helpful in the past. Will discuss this further with patient. CV 15 min safety checks 08/23: Patient reports he continues to feel depressed and anxious but no longer is having suicidal ideation at this time. Patient agreed to restarting Seroquel since he stated it helped him in the past. He would like to stop taking resperidal because he does not believe it is benefiting him. Risks/benefits were discussed d/t his cardiac hx. Patient stated he would still like to continue with restarting Seroquel. Start Seroquel 25mg PO bedtime DC Resperidal 1.5mg PO bedtime Rapid response was called this morning around 9:45. Patient found laying down on the unit [place] floor. Staff reported he sled himself down to the floor. He reported having tingling sensation in his LUE w/chest pain. Was seen by hospitalist, (see event note). Staff will continue to monitor patient for any further symptoms. Patient educated on: medication risk/benefits Informed Consent: further education needed Reason for continued inpatient stay Substantial Risk for: med/psych decompensation Time Spent With Patient Time: Total time managing care of this patient today ____ minutes. Documented by User: Trev Gomez MD 08/23/22 16:19 Subjective Subjective Reason For Visit: anxiety Interim History: Reviewed in team. Patient reports he continues to feel depressed and anxious, however he states that he is no longer suicidal. Patient states he has been out going to groups and watching tv. Patient reports he is hoping to feel better soon. Patient denies SI, HI, VH, AH at this time. Patient complained of chest pain today; rapid response called. See assessment for detailed Diagnostics Labs 08/20/22 10:40 08/20/22 10:40 Assessment & Plan Assessment & Plan (1) Paresthesia of left upper and lower extremity: Status: Acute Code(s): R20.2 - Paresthesia of skin Plan Patient is a 62 year old male with pacemaker/defibrillator, COPD, developmental delay, who self presented to [facility] with suicidal ideation to OD on his medications secondary to increased ongoing depression d/t loss of his mother 3 years ago and chronic medical issues. Patient reports he would like his mood and anxiety improved but is concerned about starting new medications. He reports Seroquel has been helpful in the past. Will discuss this further with patient. Plan: CV 15 min safety checks Start Seroquel 25mg PO bedtime; DC Resperidal 1.5mg PO bedtime -will hold off on starting Lexapro even though he had been on before, given some concern for QTC prolongation -will consult with Cardiology regarding medication Hospital course: 08/23: Patient reports he continues to feel depressed and anxious but no longer is having suicidal ideation at this time. Patient agreed to restarting Seroquel since he stated it helped him in the past. He would like to stop taking resperidal because he does not believe it is benefiting him. Risks/benefits were discussed d/t his cardiac hx. Patient stated he would still like to continue with restarting Seroquel feeling benefits outweigh risks.. -Rapid response was called this morning around 9:45. Patient complained of sudden chest pain and lowered himself to the floor. Staff reported he sled himself down to the floor. He reported having tingling sensation in his LUE w/chest pain. Was seen by hospitalist, who felt patient was stable enough to remain on the unit, troponins/EKG ordered (see event note). Staff will continue to monitor patient for any further symptoms.
[2022-08-23 13:53] LABS: Troponin-I High Sensitivity < 2.7 ng/L (<3.5-35.0)
--- NOTE | 2022-08-23 17:37 | PM.NEUROCN ---
History of Present Illness Data of Consult Service Date: 08/23/22 Primary Care Provider: Amari Vyas DO, MD HPI Reason for consult: left sided paresthesia This is a 62-year-old male evaluated for sudden onset left-sided paresthesias while he was sitting down watching TV when he began experiencing tingling in the left side of his face in the left upper extremity and left lower extremity and slight lightheadedness. He has history of CAD with cardiac defibrillator in place, tetralogy of fallot s/p repair, asthma, anxiety / depression, COPD, controlled type 2 diabetes, hypothyroidism, hypertension, hyperlipidemia, GERD, history of seizure disorder, and obstructive sleep apnea admitted to Psychiatry for incresaing depression and suicidal ideation. ? Denies any associated weakness, slurred speech, dysphagia, visual changes. Denies any symptoms on the? right side of his body. He does not feel anxious at this time.?Recently admitted overnight at [facility] and diagnosed with TIA with similar symptoms. Symptoms still present. Has been compliant with his xarelto. CT head and carotid doppler negative. Review of Systems Review of Systems: Yes all other systems are reviewed and are negative Constitutional: Constitutional: Reports as per HPI Eyes: Eyes: Reports as per HPI ENT: Reports as per HPI Cardiovascular: Cardiovascular: Reports as per HPI Respiratory: Respiratory: Reports as per HPI Gastrointestinal: Gastrointestinal: Reports as per HPI Genitourinary: Genitourinary: Reports as per HPI Musculoskeletal: Musculoskeletal: Reports as per HPI Integumentary/Breasts: Skin/Breast: Reports as per HPI Neurologic: Reports as per HPI Psychiatric: Psychiatric: Reports as per HPI Endocrine: Endocrine: Reports as per HPI Hematologic/Lymphatic: Hematologic/Lymphatic: Reports as per HPI Allergic/Immunologic: Allergic/Immunologic: Reports as per HPI [facility] Past Medical History Medical History Anxiety Artificial cardiac pacemaker Asthma Cardiac defibrillator in place COPD (chronic obstructive pulmonary disease) Depression Developmental delay, mild Diabetes GERD (gastroesophageal reflux disease) History of ETOH abuse Hyperlipidemia Hypertension Hyperthyroidism RBBB Seizure Sleep apnea Surgical History Surgical History History of cardiac cath Social History Social History Household Members: Other Household Members Other:: 2 roommates Housing: Apartment Housing Other:: Sober House Do you presently have visiting nurse or other home services: No Alcohol intake: former Patient Tobacco Use Status: Never used Tobacco Tobacco use type: Cigarette Smoked in Last 30 Days: No Second Hand Smoke Exposure: No Use of substances other than those prescribed or required for medical reasons: No Substance Use Type: Former Substance User, Prescription Drugs and Caffiene Currently Displaying Signs/Symptoms of Drug Intoxication Withdrawal: No Any prior treatment program specific to substance use: No Have you been hit, kicked, punched, or otherwise hurt by someone within the past year? If so, by whom?: No Do you feel safe in your current relationship?: No Current Relationship Is there a partner from a previous relationship who is making you feel unsafe now?: No Are you made to feel afraid or neglected: No [facility] Practices: [employer]ze Advance Directives: Yes Advance Directives Information Provided: Yes Advance Directives on File: No Healthcare Proxy: No Guardian: No Do you have thoughts of harming others: None Do you have a plan to hurt others: No Plan Recently lost weight without trying: No Nutrition Risks: No Nutritional Risk service: No Current occupational status: disabled Sexual orientation: Decline to Answer Meds Allergies Allergy/AdvReac Type Severity Reaction Status Date / Time aripiprazole [From Abilify] Allergy Severe Rash Verified 08/19/22 14:29 peas Allergy Severe HIVES Verified 08/19/22 14:29 atorvastatin [From Lipitor] Allergy Intermediate Hives Verified 08/19/22 14:29 bee pollen [bee stings] AdvReac Severe Anaphylaxis Verified 08/19/22 14:29 Active Medications: Current Medications Acetaminophen (Acetaminophen 325 Mg Tablet) 975 mg PO Q6H PRN PRN Reason: pain Last Admin: 08/22/22 09:01 Dose: 975 mg Al Hydroxide/Mg Hydroxide (Magnesium Hydrox/Alum Hydrox 30 Ml Oral.Susp) 30 ml PO Q6H PRN PRN Reason: Heartburn/Nausea Albuterol Sulfate (Albuterol Sulfate 90 Mcg 8 Gm Inhaler) 2 puff INHALE Q4H PRN PRN Reason: Shortness Of Breath Aspirin (Aspirin Enteric Coated 81 Mg Tablet.) 81 mg PO DAILY [facility] Last Admin: 08/23/22 08:57 Dose: Not Given Calcium Carbonate (Calcium Carbonate 750 Mg Tab.Chew) 750 mg PO Q4H PRN PRN Reason: Indigestion Cyclobenzaprine HCl (Cyclobenzaprine Hcl 5 Mg Tablet) 5 mg PO TID PRN PRN Reason: muscle spasm Ezetimibe (Ezetimibe 10 Mg Tablet) 10 mg PO DAILY [facility] Last Admin: 08/23/22 09:23 Dose: Not Given Gabapentin (Gabapentin 300 Mg Capsule) 300 mg PO BEDTIME [facility] Last Admin: 08/22/22 20:13 Dose: 300 mg Hydroxyzine HCl (Hydroxyzine Hcl 50 Mg Tablet) 50 mg PO BID PRN PRN Reason: Anxiety Last Admin: 08/23/22 14:36 Dose: 50 mg Isosorbide Mononitrate (Isosorbide Mononitrate 30 Mg Tab.Er.24h) 30 mg PO DAILY [facility]; Protocol Last Admin: 08/23/22 08:57 Dose: 30 mg Levothyroxine Sodium (Levothyroxine Sodium 75 Mcg Tablet) 75 mcg PO DAILY@0630 [facility] Last Admin: 08/23/22 06:22 Dose: 75 mcg Lisinopril (Lisinopril 2.5 Mg Tablet) 2.5 mg PO DAILY [facility]; Protocol Last Admin: 08/23/22 08:57 Dose: 2.5 mg Magnesium Hydroxide (Milk Of Magnesia 30 Ml Oral.Susp) 30 ml PO DAILY PRN PRN Reason: Constipation Melatonin (Melatonin 3 Mg Tablet) 9 mg PO BEDTIME [facility] Last Admin: 08/22/22 21:50 Dose: 9 mg Nitroglycerin (Nitroglycerin 0.4 Mg Tab.Subl) 0.4 mg SUBLINGUAL Q5M PRN PRN Reason: Chest Pain Ondansetron HCl (Ondansetron Odt 4 Mg Tab.Rapdis) 4 mg TRANSLINGU Q6H PRN PRN Reason: nausea/vomiting Last Admin: 08/22/22 13:43 Dose: 4 mg Pharmacy Consult (Consult Rx Perform Med Rec) 1 each MISCELLANE ONCE PRN PRN Reason: Consult order Quetiapine Fumarate (Quetiapine Fumarate 25 Mg Tablet) 25 mg PO BEDTIME [facility] Rivaroxaban (Rivaroxaban 15 Mg Tablet) 15 mg PO DAILY@1700 [facility] Last Admin: 08/22/22 16:12 Dose: 15 mg Sotalol HCl (Sotalol Hcl 80 Mg Tablet) 80 mg PO BID [facility] Last Admin: 08/23/22 08:58 Dose: 80 mg Tamsulosin HCl (Tamsulosin Hcl 0.4 Mg Capsule) 0.4 mg PO BEDTIME [facility] Last Admin: 08/22/22 20:14 Dose: 0.4 mg Trazodone HCl (Trazodone Hcl 50 Mg Tablet) 50 mg PO BEDTIME [facility] Last Admin: 08/22/22 21:51 Dose: 50 mg Home Medications Medication Instructions Recorded Confirmed Last Taken Type acetaminophen 500 mg tablet 1,000 mg PO Q6H PRN pain 08/19/22 08/19/22 Unknown History albuterol sulfate 90 mcg/actuation 2 puff inhalation Q4H PRN 08/19/22 08/19/22 Unknown History aerosol inhaler Shortness Of Breath calcium carbonate 200 mg calcium 200 mg PO Q4H PRN Indigestion 08/19/22 08/19/22 Unknown History (500 mg) chewable tablet (Calcium Antacid) cyclobenzaprine 10 mg tablet 5 mg PO TID PRN muscle spasm 08/19/22 08/19/22 Unknown History gabapentin 300 mg capsule 300 mg PO BEDTIME 08/19/22 08/19/22 Unknown History hydroxyzine pamoate 50 mg capsule 50 mg PO BID PRN Anxiety 08/19/22 08/19/22 Unknown History melatonin 10 mg-lemon balm leaf 1 tab PO BEDTIME PRN insomnia 08/19/22 08/19/22 Unknown History extract 1 mg tablet nitroglycerin 0.4 mg sublingual 0.4 mg sublingual Q5M PRN Chest 08/19/22 08/19/22 Unknown History tablet Pain ondansetron 4 mg disintegrating 4 mg PO Q6H PRN nausea/vomiting 08/19/22 08/19/22 Unknown History tablet risperidone 1 mg tablet 1.5 mg PO BEDTIME 08/19/22 08/19/22 Unknown History rivaroxaban 15 mg tablet (Xarelto) 15 mg PO DAILY@1700 08/19/22 08/19/22 Unknown History sotalol 80 mg tablet 80 mg PO BID 08/19/22 08/19/22 Unknown History tamsulosin 0.4 mg capsule 0.4 mg PO BEDTIME 08/19/22 08/19/22 Unknown History tramadol 50 mg tablet 50 mg PO Q6H PRN Pain 08/19/22 08/19/22 Unknown History trazodone 50 mg tablet 50 mg PO BEDTIME 08/19/22 08/19/22 Unknown History Physical Exam Vital Signs: Vital Signs: Last Vital Signs Temp 96.6 F L 08/23/22 10:15 Pulse 93 08/23/22 10:15 Resp 16 08/23/22 09:24 BP 150/101 H 08/23/22 10:15 Pulse Ox 95 08/23/22 10:15 O2 Del Method Room Air 08/23/22 10:15 BMI result Body Mass Index 36.5 Const: Other: Awake, alert, male patient, pleasant, cooperative does not appear to be in distress, answers all questions appropriately HEENT: Head: Yes normal to inspection, Yes normocephalic and Yes atraumatic Ears: external ears normal General nose exam: Normal external nose present Face and sinus: Yes normal facial exam Mouth: Normal oral and palatal mucosa present Throat: Yes posterior oropharynx normal Eyes: General: appearance normal, both eyes and all related structures Pupils: Equal, round and reactive pupils present Neck: Neck: Yes normal visual inspection, Yes no lymphadenopathy, Yes trachea midline and Yes supple Chest: Chest palpation & inspection: normal inspection of the chest and normal palpation of entire chest wall Resp: Effort & Inspection: normal respiratory effort and able to speak in complete sentences Auscultation: clear to auscultation bilaterally Cardio: Rate: regular rate Rhythm: regular rhythm Heart sounds: S1 normal heart sound present, S2 normal heart sound present and no murmurs GI: Inspection: Yes normal to inspection Palpation (GI): Soft to palpation, nontender and no guarding Auscultation: normal bowel sounds : General: Yes no CVA tenderness Back/Spine/Pelvis: Back: no CVA tenderness Skin: General skin exam: no rashes or lesions noted Neuro: Other: Normal , non focal. Cranial nerves: Yes CN's II-XII intact bilaterally and Yes Equal, round and reactive pupils present Cognition (Neuro): normal cognition Motor exam (neuro): 5/5 motor strength present throughout Extrem: General: Yes normal to inspection Psych: Appearance: grossly normal Speech and movement: Normal speech and movement present Affect: normal affect Attitude: cooperative Thought process: Normal thought process present Thought content: Suicidality present and no homicidality Results Labs 08/20/22 10:40 08/20/22 10:40 Assessment and Plan (1) Paresthesia of left upper and lower extremity: Status: Acute Probably anxiety related. Possible migraine varuiant . unlikely small thalamic infarct. Recommend : MRI brain Plan Patient is a 62 year old male with pacemaker/defibrillator, COPD, developmental delay, who self presented to [facility] with suicidal ideation to OD on his medications secondary to increased ongoing depression d/t loss of his mother 3 years ago and chronic medical issues. Patient reports he would like his mood and anxiety improved but is concerned about starting new medications. He reports Seroquel has been helpful in the past. Will discuss this further with patient. Plan: CV 15 min safety checks Start Seroquel 25mg PO bedtime; DC Resperidal 1.5mg PO bedtime -will hold off on starting Lexapro even though he had been on before, given some concern for QTC prolongation -will consult with Cardiology regarding medication Hospital course: 08/23: Patient reports he continues to feel depressed and anxious but no longer is having suicidal ideation at this time. Patient agreed to restarting Seroquel since he stated it helped him in the past. He would like to stop taking resperidal because he does not believe it is benefiting him. Risks/benefits were discussed d/t his cardiac hx. Patient stated he would still like to continue with restarting Seroquel feeling benefits outweigh risks.. -Rapid response was called this morning around 9:45. Patient complained of sudden chest pain and lowered himself to the floor. Staff reported he sled himself down to the floor. He reported having tingling sensation in his LUE w/chest pain. Was seen by hospitalist, who felt patient was stable enough to remain on the unit, troponins/EKG ordered (see event note). Staff will continue to monitor patient for any further symptoms. Time Spent With Patient Time: Total time managing care of this patient today ____ minutes. Procedures Date of Service Date of Service: 08/23/22
[2022-08-23 18:00] VITALS: BP 96/52; PULSE 76; TEMP 35.9; O2SAT 97
[2022-08-23 18:34] LABS: MANUAL DIFF FLAG NO
[2022-08-23 18:35] LABS: Basophils Absolute Auto 0.1 X10*3/uL (0.0-0.2); Eosinophils Percent Auto 4.8 % (0-4); PLT CLUMP 1; SCAN SMEAR FLAG 1
[2022-08-23 18:37] LABS: Basophils Percent Auto 1.1 % (0-2); Eosinophils Absolute Auto 0.3 X10*3/uL (0.0-0.4); Hematocrit 38.1 % (42.0-52.0); Hemoglobin 12.7 g/dl (14.0-18.0); Imm Gran Abs Auto 0.07 X10*3/uL (0.00-0.03); Imm Gran Pct Auto 1.1 % (0.0-0.4); Lymphocytes Absolute Auto 1.5 X10*3/uL (1.2-4.9); Mean Corpuscular HGB Conc 33.3 g/dl (31.0-36.0); Mean Platelet Volume 11.5 fL (9.4-12.4); Monocytes Absolute Auto 0.7 X10*3/uL (0.1-1.2); Monocytes Percent Auto 10.7 % (2-11); Neutrophils Absolute Auto 3.7 x10*3/uL (2.0-8.3); Neutrophils Percent Auto 58.3 % (45-73); Red Blood Count 4.38 X10*6/uL (4.60-5.80); Red Cell Distribution Width 12.5 % (11.0-16.0)
[2022-08-23 18:39] LABS: Platelet Count 97 X10*3/uL (160-400); White Blood Count 6.3 X10*3/uL (4.8-10.8)
[2022-08-23 18:50] LABS: Iron 63 mcg/dL (45-160); Percent Iron Saturation 26 % (15-50); Total Iron Binding Capacity 241 mcg/dL (228-428); Unsaturated Iron Binding 178 ug/dL
[2022-08-23 18:55] VITALS: BP 103/52; PULSE 89
[2022-08-23] MEDS: Nitroglycerin 0.4 MG TAB.SUBL SUBLINGUAL (18:55)
[2022-08-23] MEDS: Rivaroxaban 15 MG TABLET PO (19:02)
--- NOTE | 2022-08-23 19:07 | ECG_ITS ---
Test Reason : chest pain Blood Pressure : / mmHG Vent. Rate : 097 BPM Atrial Rate : 097 BPM P-R Int : 204 ms QRS Dur : 172 ms QT Int : 412 ms P-R-T Axes : 064 111 041 degrees QTc Int : 523 ms Normal sinus rhythm Right bundle branch block Abnormal ECG When compared with ECG of 23-AUG-2022 09:58, No significant change was found Referred By: Ioana Castelan Electronically Signed By:PEPE CABALLERO
--- NOTE | 2022-08-23 19:07 | PM.EVENT ---
Event Note Date of Service: 08/23/22 Event Note: Rapid response called around 650pm. Pt reports walking and felt lightheaded and lowered himself to the ground. Did not fall. No head strike or LOC. He is still reporting left sided chest pressure with radiation to the left jaw and left arm. Paresthesias in the LUE and LLE persist. States the chest pressure is heavier now. There is reproducible tenderness to palpation across the left chest. He has had 3 episodes of watery diarrhea today which is new. Has been eating and drinking. Troponin x 2 this morning were negative and EKG was nonischemic. EKG repeated now is without significant change. Will repeat troponin x 1. Will also check orthostatic VS, GI panel, and CDiff pcr. Time Spent With Patient Time: Total time managing care of this patient today ____ minutes.
[2022-08-23 20:26] LABS: Troponin-I High Sensitivity < 2.7 ng/L (<3.5-35.0)
[2022-08-23] MEDS: Gabapentin 300 MG CAPSULE PO (21:03)
[2022-08-23] MEDS: Melatonin 3 MG TABLET 9 MG PO (21:03)
[2022-08-23] MEDS: Tamsulosin HCL 0.4 MG CAPSULE PO (21:03)
[2022-08-23] MEDS: QUEtiapine Fumarate 25 MG TABLET PO (21:03)
[2022-08-23] MEDS: traZODone HCL 50 MG TABLET PO (21:03)
--- NOTE | 2022-08-23 23:51 | PC.NURSE ---
At 1845 patient was noted to be lowering himself to the floor and c/o chest pain. Vitals were taken 103 /52 BP, HR 89 Temp. 97.4, RR 16. Rapid Response was called at 1850. Patient opens eyes spontaneously, oriented x 4. He reported that he was continuing to have numbness/tingling LUE and LLE. Troponin drawn, EKG done. Patient was also c/o diarrhea x 3 today with one episode of moderate amount of meme blood on the toilet paper. Patient was given Nirtro SL with positive relief. Patient was encouraged to drink fluids and use caution when get up from a lying or sitting position. Orthostatic blood pressures were done and documented. No major changes noted. Patient was asked if he has a history of dizzyness and patient said he does have a positive history for ear infections and dizzyness. Patient mentioned that Meclizine had been used with positive effect. Patient was given red socks and reminded to ask for help and given a plastic container with M [employer] to shake if patient needs assistance.
[2022-08-24] MEDS: Levothyroxine Sodium 75 MCG TABLET PO (06:00)
[2022-08-24 08:24] VITALS: BP 113/81; PULSE 84; RESP 16; TEMP 36.9; O2SAT 96
[2022-08-24] MEDS: lisinopriL 2.5 MG TABLET PO (08:27)
[2022-08-24] MEDS: Isosorbide Mononitrate 30 MG TAB.ER.24H PO (08:27)
[2022-08-24] MEDS: Sotalol HCL 80 MG TABLET PO ×2 (08:27→20:38)
[2022-08-24] MEDS: Ezetimibe 10 MG TABLET PO (08:28)
[2022-08-24] MEDS: Aspirin Enteric Coated 81 MG TABLET.DR PO (08:28)
[2022-08-24 10:24] LABS: MANUAL DIFF FLAG NO
[2022-08-24 10:37] LABS: Basophils Absolute Auto 0.1 X10*3/uL (0.0-0.2); Basophils Percent Auto 1.2 % (0-2); Eosinophils Absolute Auto 0.4 X10*3/uL (0.0-0.4); Eosinophils Percent Auto 6.5 % (0-4); Hematocrit 41.2 % (42.0-52.0); Hemoglobin 13.7 g/dl (14.0-18.0); Imm Gran Abs Auto 0.09 X10*3/uL (0.00-0.03); Imm Gran Pct Auto 1.3 % (0.0-0.4); Lymphocytes Absolute Auto 1.5 X10*3/uL (1.2-4.9); Lymphocytes Percent Auto 21.9 % (20-40); Mean Corpuscular HGB Conc 33.3 g/dl (31.0-36.0); Mean Corpuscular Volume 87.3 fL (80.0-98.0); Mean Platelet Volume 10.7 fL (9.4-12.4); Monocytes Absolute Auto 0.6 X10*3/uL (0.1-1.2); Monocytes Percent Auto 8.8 % (2-11); Neutrophils Absolute Auto 4.1 x10*3/uL (2.0-8.3); Neutrophils Percent Auto 60.3 % (45-73); Red Blood Count 4.72 X10*6/uL (4.60-5.80); Red Cell Distribution Width 12.5 % (11.0-16.0); White Blood Count 6.8 X10*3/uL (4.8-10.8)
[2022-08-24 10:38] LABS: Platelet Count 97 X10*3/uL (160-400)
[2022-08-24 11:05] VITALS: O2SAT 96
[2022-08-24 12:03] LABS: CDiff Gene PCR NEGATIVE (Negative)
[2022-08-24 12:51] LABS: Adenovirus F 40/41 Not Detected (Not Detect.); Astrovirus Not Detected (Not Detect.); Campylobacter Not Detected (Not Detect.); Cryptosporidium Not Detected (Not Detect.); Cyclospora cayetanensis Not Detected (Not Detect.); E. coli EAEC Not Detected (Not Detect.); E. coli EPEC Not Detected (Not Detect.); E. coli ETEC Not Detected (Not Detect.); E. coli STEC Not Detected (Not Detect.); Entamoeba histolytica Not Detected (Not Detect.); Giardia lamblia Not Detected (Not Detect.); Norovirus GI/GII Not Detected (Not Detect.); Plesiomonas shigelloides Not Detected (Not Detect.); Rotavirus A Not Detected (Not Detect.); Salmonella Not Detected (Not Detect.); Sapovirus Not Detected (Not Detect.); Shigella sp./EIEC Not Detected (Not Detect.); Vibrio Not Detected (Not Detect.); Vibrio Cholerae Not Detected (Not Detect.); Yersinia enterocolitica Not Detected (Not Detect.)
[2022-08-24 14:29] VITALS: O2SAT 95
[2022-08-24 14:51] VITALS: BP 115/60; PULSE 104; RESP 16; TEMP 36.8; O2SAT 97
[2022-08-24] MEDS: hydrOXYzine HCL 50 MG TABLET PO ×2 (14:52→20:43)
[2022-08-24] MEDS: Meclizine HCl 25 MG TABLET PO (14:52)
--- NOTE | 2022-08-24 14:53 | PC.NURSE ---
pt complains of slight dizziness but reports feels better when sitting. VS stable and recorded. PRN atarax & meclizine requested and administered. Provider DK notified.
--- NOTE | 2022-08-24 15:11 | P.PNPSI_ITS ---
Documented by User: Lois Magaña NP 08/24/22 16:05 Subjective Subjective Date of Service: 08/24/22 Reason For Visit: anxiety Subjective Notes: Conditional Voluntary Interim History: Reviewed in team. Patient reports he feels okay today. Patient reports he has been sleeping well and going to groups. He reports that the Seroquel has been helpful. Patient was able to verbalize that he has many supports in the community. Patient stated, I don't feel like I would hurt myself anymore . Patient discussed that he would continue to go to the [facility], my appointments and AA meetings for support . Patient denies SI, HI, VH, AH at this time. Rapid response called last evening. See assessment for detailed Medication Compliance: Yes Attending Groups: Yes Review of Systems Review of Systems Yes all other systems are reviewed and are negative Constitutional: Reports as per HPI Eyes: Reports as per HPI Reports as per HPI Cardiovascular: Reports as per HPI Respiratory: Reports as per HPI Gastrointestinal: Reports as per HPI Genitourinary: Reports as per HPI Musculoskeletal: Reports as per HPI Skin/Breast: Reports as per HPI Reports as per HPI Psychiatric: Reports as per HPI Endocrine: Reports as per HPI Hematologic/Lymphatic: Reports as per HPI Allergic/Immunologic: Reports as per HPI Mental Status Exam Mental Status Exam Narrative: Pt is alert and oriented; behavior is cooperative, friendly and calm; patient is not in distress; dressed in casual attire; mood is described as okay ; eye contact appropriate; Speech is normal rate, volume and prosody and not pressured; no psychomotor agitation/retardation present; thought process is organized and goal directed; Thought content is on tx; otherwise pertinent to relevant topics and without any delusional content, paranoid ideations or grandiosity; denies SI/HI. There is no evidence of perceptual disturbance. Patients insight and judgment is fair. Diagnostics Vital Signs (24Hr): Vital Signs - 24 hr 08/23/22 18:55 08/23/22 18:00 08/24/22 08:24 Temperature 96.6 F L 98.5 F Pulse Rate 89 76 84 Respiratory Rate 16 Blood Pressure 103/52 L 96/52 L 113/81 Pulse Oximetry 97 96 Oxygen Delivery Method Room Air 08/24/22 11:05 08/24/22 14:29 08/24/22 14:51 Temperature 98.2 F Pulse Rate 104 H Respiratory Rate 16 Blood Pressure 115/60 Pulse Oximetry 96 95 97 Oxygen Delivery Method Room Air Room Air Room Air BMI result Body Mass Index 36.5 Labs 08/24/22 10:10 08/20/22 10:40 Labs: Laboratory Results - last 48 hr 08/22/22 08/23/22 08/23/22 18:07 10:03 10:26 WBC RBC Hgb Hct MCV MCH MCHC RDW Plt Count MPV Immature Gran % (Auto) Neut % (Auto) Lymph % (Auto) [place] % (Auto) Eos % (Auto) Baso % (Auto) Lymph # (Auto) [place] # (Auto) Eos # (Auto) Baso # (Auto) Abs Immat Gran (auto) Absolute Neuts (auto) Absolute Nucleated RBC Nucleated RBC % (auto) POC Glucose 194 H 237 H Iron TIBC % Saturation Unsat Iron Binding Troponin I High Sens < 2.7 Stl C. cayetanensis PCR Stool Rotavirus A PCR Stl Adenov F PCR Stool Astrovirus (PCR) Stool Campylobacter PCR Stool Cryptosporidium PCR Stl Sh Tox Pr E STEC PCR Stool E coli O157 PCR Stl Enterotoxigenic E PCR Stool EPEC (PCR) Stool EAEC (PCR) Stl E. histolytica PCR Stool Giardia Lamblia PCR Stl P. shigelloides PCR Stool Salmonella PCR Stool Sapovirus (PCR) Stl Shigella/EIEC PCR St Y.enterocolitica PCR Stool Vibrio (PCR) Stl Vibrio cholerae PCR Stl Norovirus GI/GII PCR C. difficile Tox B Gene 08/23/22 08/23/22 08/23/22 13:25 18:14 18:14 WBC 6.3 RBC 4.38 L Hgb 12.7 L Hct 38.1 L MCV 87.0 MCH 29.0 MCHC 33.3 RDW 12.5 Plt Count 97 L MPV 11.5 Immature Gran % (Auto) 1.1 H Neut % (Auto) 58.3 Lymph % (Auto) 24.0 [place] % (Auto) 10.7 Eos % (Auto) 4.8 H Baso % (Auto) 1.1 Lymph # (Auto) 1.5 [place] # (Auto) 0.7 Eos # (Auto) 0.3 Baso # (Auto) 0.1 Abs Immat Gran (auto) 0.07 H Absolute Neuts (auto) 3.7 Absolute Nucleated RBC 0.000 Nucleated RBC % (auto) 0.0 POC Glucose Iron 63 TIBC 241 % Saturation 26 Unsat Iron Binding 178 Troponin I High Sens < 2.7 Stl C. cayetanensis PCR Stool Rotavirus A PCR Stl Adenov F PCR Stool Astrovirus (PCR) Stool Campylobacter PCR Stool Cryptosporidium PCR Stl Sh Tox Pr E STEC PCR Stool E coli O157 PCR Stl Enterotoxigenic E PCR Stool EPEC (PCR) Stool EAEC (PCR) Stl E. histolytica PCR Stool Giardia Lamblia PCR Stl P. shigelloides PCR Stool Salmonella PCR Stool Sapovirus (PCR) Stl Shigella/EIEC PCR St Y.enterocolitica PCR Stool Vibrio (PCR) Stl Vibrio cholerae PCR Stl Norovirus GI/GII PCR C. difficile Tox B Gene 08/23/22 08/24/22 08/24/22 19:44 10:10 10:20 WBC 6.8 RBC 4.72 Hgb 13.7 L Hct 41.2 L MCV 87.3 MCH 29.0 MCHC 33.3 RDW 12.5 Plt Count 97 L MPV 10.7 Immature Gran % (Auto) 1.3 H Neut % (Auto) 60.3 Lymph % (Auto) 21.9 [place] % (Auto) 8.8 Eos % (Auto) 6.5 H Baso % (Auto) 1.2 Lymph # (Auto) 1.5 [place] # (Auto) 0.6 Eos # (Auto) 0.4 Baso # (Auto) 0.1 Abs Immat Gran (auto) 0.09 H Absolute Neuts (auto) 4.1 Absolute Nucleated RBC 0.000 Nucleated RBC % (auto) 0.0 POC Glucose Iron TIBC % Saturation Unsat Iron Binding Troponin I High Sens < 2.7 Stl C. cayetanensis PCR Stool Rotavirus A PCR Stl Adenov F PCR Stool Astrovirus (PCR) Stool Campylobacter PCR Stool Cryptosporidium PCR Stl Sh Tox Pr E STEC PCR Stool E coli O157 PCR Stl Enterotoxigenic E PCR Stool EPEC (PCR) Stool EAEC (PCR) Stl E. histolytica PCR Stool Giardia Lamblia PCR Stl P. shigelloides PCR Stool Salmonella PCR Stool Sapovirus (PCR) Stl Shigella/EIEC PCR St Y.enterocolitica PCR Stool Vibrio (PCR) Stl Vibrio cholerae PCR Stl Norovirus GI/GII PCR C. difficile Tox B Gene NEGATIVE 08/24/22 10:20 WBC RBC Hgb Hct MCV MCH MCHC RDW Plt Count MPV Immature Gran % (Auto) Neut % (Auto) Lymph % (Auto) [place] % (Auto) Eos % (Auto) Baso % (Auto) Lymph # (Auto) [place] # (Auto) Eos # (Auto) Baso # (Auto) Abs Immat Gran (auto) Absolute Neuts (auto) Absolute Nucleated RBC Nucleated RBC % (auto) POC Glucose Iron TIBC % Saturation Unsat Iron Binding Troponin I High Sens Stl C. cayetanensis PCR Not Detected Stool Rotavirus A PCR Not Detected Stl Adenov F 40/41 PCR Not Detected Stool Astrovirus (PCR) Not Detected Stool Campylobacter PCR Not Detected Stool Cryptosporidium PCR Not Detected Stl Sh Tox Pr E STEC PCR Not Detected Stool E coli O157 PCR Not applicable Stl Enterotoxigenic E PCR Not Detected Stool EPEC (PCR) Not Detected Stool EAEC (PCR) Not Detected Stl E. histolytica PCR Not Detected Stool Giardia Lamblia PCR Not Detected Stl P. shigelloides PCR Not Detected Stool Salmonella PCR Not Detected Stool Sapovirus (PCR) Not Detected Stl Shigella/EIEC PCR Not Detected St Y.enterocolitica PCR Not Detected Stool Vibrio (PCR) Not Detected Stl Vibrio cholerae PCR Not Detected Stl Norovirus GI/GII PCR Not Detected C. difficile Tox B Gene Imaging Radiology Impressions: ITS Impressions Chest X-Ray 08/20/22 10:50 IMPRESSION: 1. No acute cardiopulmonary findings. 2. Stable cardiomegaly. Head CT 08/22/22 18:00 IMPRESSION: 1. No acute intracranial process seen. 2. Chronic bilateral maxillary sinus inflammatory changes. This critical result was discussed with HEAVENLY Avendano at 6:17 pm on 08/22/2022. It was ascertained that the content and urgency of the report was understood at the time of direct communication. Carotid Doppler Study 08/22/22 20:46 1. IMPRESSION: RIGHT: Normal right internal carotid artery without atherosclerotic plaque or hemodynamically significant stenosis. 2. LEFT: Normal left internal carotid artery without atherosclerotic plaque or hemodynamically significant stenosis. 3. No interval change when compared to the 2012 study Medications Medications Current Medications Acetaminophen (Acetaminophen 325 Mg Tablet) 975 mg PO Q6H PRN PRN Reason: pain Last Admin: 08/22/22 09:01 Dose: 975 mg Al Hydroxide/Mg Hydroxide (Magnesium Hydrox/Alum Hydrox 30 Ml Oral.Susp) 30 ml PO Q6H PRN PRN Reason: Heartburn/Nausea Albuterol Sulfate (Albuterol Sulfate 90 Mcg 8 Gm Inhaler) 2 puff INHALE Q4H PRN PRN Reason: Shortness Of Breath Aspirin (Aspirin Enteric Coated 81 Mg Tablet.Dr) 81 mg PO DAILY [facility] Last Admin: 08/24/22 08:28 Dose: 81 mg Calcium Carbonate (Calcium Carbonate 750 Mg Tab.Chew) 750 mg PO Q4H PRN PRN Reason: Indigestion Cyclobenzaprine HCl (Cyclobenzaprine Hcl 5 Mg Tablet) 5 mg PO TID PRN PRN Reason: muscle spasm Ezetimibe (Ezetimibe 10 Mg Tablet) 10 mg PO DAILY [facility] Last Admin: 08/24/22 08:28 Dose: 10 mg Gabapentin (Gabapentin 300 Mg Capsule) 300 mg PO BEDTIME [facility] Last Admin: 08/23/22 21:03 Dose: 300 mg Hydroxyzine HCl (Hydroxyzine Hcl 50 Mg Tablet) 50 mg PO BID PRN PRN Reason: Anxiety Last Admin: 08/24/22 14:52 Dose: 50 mg Isosorbide Mononitrate (Isosorbide Mononitrate 30 Mg Tab.Er.24h) 30 mg PO DAILY [facility]; Protocol Last Admin: 08/24/22 08:27 Dose: 30 mg Levothyroxine Sodium (Levothyroxine Sodium 75 Mcg Tablet) 75 mcg PO DAILY@0630 [facility] Last Admin: 08/24/22 06:00 Dose: 75 mcg Lisinopril (Lisinopril 2.5 Mg Tablet) 2.5 mg PO DAILY [facility]; Protocol Last Admin: 08/24/22 08:27 Dose: 2.5 mg Magnesium Hydroxide (Milk Of Magnesia 30 Ml Oral.Susp) 30 ml PO DAILY PRN PRN Reason: Constipation Meclizine HCl (Meclizine Hcl 25 Mg Tablet) 25 mg PO Q8H PRN PRN Reason: dizziness Last Admin: 08/24/22 14:52 Dose: 25 mg Melatonin (Melatonin 3 Mg Tablet) 9 mg PO BEDTIME [facility] Last Admin: 08/23/22 21:03 Dose: 9 mg Nitroglycerin (Nitroglycerin 0.4 Mg Tab.Subl) 0.4 mg SUBLINGUAL Q5M PRN PRN Reason: Chest Pain Last Admin: 08/23/22 18:55 Dose: 0.4 mg Ondansetron HCl (Ondansetron Odt 4 Mg Tab.Rapdis) 4 mg TRANSLINGU Q6H PRN PRN Reason: nausea/vomiting Last Admin: 08/22/22 13:43 Dose: 4 mg Pharmacy Consult (Consult Rx Perform Med Rec) 1 each MISCELLANE ONCE PRN PRN Reason: Consult order Quetiapine Fumarate (Quetiapine Fumarate 25 Mg Tablet) 25 mg PO BEDTIME [facility] Last Admin: 08/23/22 21:03 Dose: 25 mg Rivaroxaban (Rivaroxaban 15 Mg Tablet) 15 mg PO DAILY@1700 [facility] Last Admin: 08/23/22 19:02 Dose: 15 mg Sotalol HCl (Sotalol Hcl 80 Mg Tablet) 80 mg PO BID [facility] Last Admin: 08/24/22 08:27 Dose: 80 mg Tamsulosin HCl (Tamsulosin Hcl 0.4 Mg Capsule) 0.4 mg PO BEDTIME [facility] Last Admin: 08/23/22 21:03 Dose: 0.4 mg Trazodone HCl (Trazodone Hcl 50 Mg Tablet) 50 mg PO BEDTIME [facility] Last Admin: 08/23/22 21:03 Dose: 50 mg Allergies Allergies Allergy/AdvReac Type Severity Reaction Status Date / Time aripiprazole [From Abilify] Allergy Severe Rash Verified 08/19/22 14:29 peas Allergy Severe HIVES Verified 08/19/22 14:29 atorvastatin [From Lipitor] Allergy Intermediate Hives Verified 08/19/22 14:29 bee pollen [bee stings] AdvReac Severe Anaphylaxis Verified 08/19/22 14:29 Assessment & Plan Assessment & Plan (1) MDD (major depressive disorder), recurrent episode: Status: Acute Code(s): F33.9 - Major depressive disorder, recurrent, unspecified (2) Paresthesia of left upper and lower extremity: Status: Acute Code(s): R20.2 - Paresthesia of skin Assessment and Plan: Probably anxiety related. Possible migraine varuiant . unlikely small thalamic infarct. Recommend : MRI brain (3) Somatoform disorder: Status: Acute Code(s): F45.9 - Somatoform disorder, unspecified (4) Artificial cardiac pacemaker: Status: Acute Code(s): Z95.0 - Presence of cardiac pacemaker (5) Cardiac defibrillator in place: Status: Acute Code(s): Z95.810 - Presence of automatic (implantable) cardiac defibrillator (6) COPD (chronic obstructive pulmonary disease): Status: Acute Code(s): J44.9 - Chronic obstructive pulmonary disease, unspecified Plan Patient is a 62 year old male with pacemaker/defibrillator, COPD, developmental delay, who self presented to [facility] with suicidal ideation to OD on his medications secondary to increased ongoing depression d/t loss of his mother 3 years ago and chronic medical issues. Patient reports he would like his mood and anxiety improved but is concerned about starting new medications. He reports Seroquel has been helpful in the past. Will discuss this further with patient. Plan: CV 15 min safety checks Change Seroquel from 25mg PO bedtime, to 12.5mg PO 0800 and 1500 to help with day time anxiety; Hospital course: 08/23: Patient reports he continues to feel depressed and anxious but no longer is having suicidal ideation at this time. Patient agreed to restarting Seroquel since he stated it helped him in the past. He would like to stop taking resperidal because he does not believe it is benefiting him. Risks/benefits were discussed d/t his cardiac hx. Patient stated he would still like to continue with restarting Seroquel feeling benefits outweigh risks.. -Rapid response was called this morning around 9:45. Patient complained of sudden chest pain and lowered himself to the floor. Staff reported he sled himself down to the floor. He reported having tingling sensation in his LUE w/chest pain. Was seen by hospitalist, who felt patient was stable enough to remain on the unit, troponins/EKG ordered (see event note). Staff will continue to monitor patient for any further symptoms. 08/24: Patient reports feeling better today. States that Seroquel has been helpful and that he is sleeping well. T/W spoke to hospital floater operator (Dr. Curry); doctor stated that he does not see a concern with having patient on a low dose of Seroquel but to continue to monitor EKG's for possible pr olonged QTC. Patient is able to acknowledge that he has a lot of supports in the community. Preparing for discharge tomorrow. -Rapid response called around 650pm last evening. Pt felt lightheaded and lowered himself to floor. Reported left sided chest pressure with radiation to the left jaw and left arm. Seen by hospitalist, who believes he is stable to stay on unit; various tests done which were unremarkable. (See event note) Staff will continue to monitor patient for any further symptoms. Patient educated on: medication risk/benefits and therapeutic strategies Informed Consent: understands Reason for continued inpatient stay Substantial Risk for: stable for discharge Time Spent With Patient Time: Total time managing care of this patient today ____ minutes. Documented by User: Trev Gomez MD 09/02/22 09:32 Subjective Subjective Reason For Visit: anxiety Interim History: Reviewed in team. Patient reports he feels okay today. Patient reports he has been sleeping well and going to groups. He reports that the Seroquel has been helpful. Patient was able to verbalize that he has many supports in the commun y. Patient stated, I don't feel like I would hurt myself anymore . Patient discussed that he would continue to go to the [facility], my appointments and AA meetings for support . Patient denies SI, HI, VH, AH at this time. Rapid response called last evening; no findings. See assessment for detailed Diagnostics Labs 08/24/22 10:10 08/20/22 10:40 Assessment & Plan Assessment & Plan (1) MDD (major depressive disorder), recurrent episode: Status: Acute Code(s): F33.9 - Major depressive disorder, recurrent, unspecified (2) Paresthesia of left upper and lower extremity: Status: Acute Code(s): R20.2 - Paresthesia of skin (3) Somatoform disorder: Status: Acute Code(s): F45.9 - Somatoform disorder, unspecified (4) Artificial cardiac pacemaker: Status: Acute Code(s): Z95.0 - Presence of cardiac pacemaker (5) Cardiac defibrillator in place: Status: Acute Code(s): Z95.810 - Presence of automatic (implantable) cardiac defibrillator (6) COPD (chronic obstructive pulmonary disease): Status: Acute Code(s): J44.9 - Chronic obstructive pulmonary disease, unspecified Plan Patient is a 62 year old male with pacemaker/defibrillator, COPD, developmental delay, who self presented to [facility] with suicidal ideation to OD on his medications secondary to increased ongoing depression d/t loss of his mother 3 years ago and chronic medical issues. Patient reports he would like his mood and anxiety improved but is concerned about starting new medications. He reports Seroquel has been helpful in the past. Will discuss this further with patient. patient complained of sudden onset of left-sided weakness.? Patient was immediately examined and was ambulating, using all his limbs symmetrically without any issue, no facial droop or neurological deficits via observation.? He said that the weakness fully resolved and that this had happened to him recently where he was evaluated [facility]? and they did find anything and said he thinks it is just due to anxiety.? Patient has a long history of frequent somatic complaints.? Situation is complex as patient has both cardiac history and psycho-somatic symptoms. Of note ED provider also reports history of multiple noncardiac presentations for chest pain Patient has multiple hospitalization due to chest pain syndrome which has been labile as noncardiac...currently continues to have these intermittent chest pain syndromes of unclear etiology but appears to be clearly not ischemic. Plan: CV 15 min safety checks Change Seroquel from 25mg PO bedtime, to 12.5mg PO 0800 and 1500 to help with day time anxiety; Hospital course: 08/23: Patient reports he continues to feel depressed and anxious but no longer is having suicidal ideation at this time. Patient agreed to restarting Seroquel since he stated it helped him in the past. He would like to stop taking resperidal because he does not believe it is benefiting him. Risks/benefits were discussed d/t his cardiac hx. Patient stated he would still like to continue with restarting Seroquel feeling benefits outweigh risks.. -Rapid response was called this morning around 9:45. Patient complained of sudden chest pain and lowered himself to the floor. Staff reported he sled himself down to the floor. He reported having tingling sensation in his LUE w/chest pain. Was seen by hospitalist, who felt patient was stable enough to remain on the unit, troponins/EKG ordered (see event note). Staff will continue to monitor patient for any further symptoms. 08/24: -Rapid response called around 650pm last evening. Pt felt lightheaded and lowered himself to floor. Reported left sided chest pressure with radiation to the left jaw and left arm. Seen by hospitalist, who reports pt is stable to stay on unit; various tests done which were unremarkable. (See event note) Staff will continue to monitor patient for any further symptoms. Discussed with colleagues who agree that patient has a significant somatoform disorder interfering with presentation regarding medical comorbidities. Patient reports feeling better today. Remains without any SI. States that Seroquel has been helpful and that he is sleeping well. T/W spoke to hospital floater operator (Dr. Curry); doctor stated that he does not see a concern with having patient on a low dose of Seroquel but to continue to monitor EKG's for possible prolonged QTC. Patient is able to acknowledge that he has a lot of supports in the community. Patient is at his baseline. Given Preparing for discharge tomorrow.
--- NOTE | 2022-08-24 15:54 | PC.NURSE ---
Patient upset he is not being allowed to shave his ring. T/w confirmed with Linh Magaña NP, that due to patient's history of dizziness as well as being on Xarelto (blood thinner) the request to shave is being denied.
--- NOTE | 2022-08-24 16:47 | PC.NURSE ---
Patient is quite insistent that he needs to speak with his provider's supervisor housecleaner regarding not being able to shave. T/w will be sure to let staff know in report.
[2022-08-24] MEDS: Rivaroxaban 15 MG TABLET PO (16:52)
[2022-08-24] MEDS: QUEtiapine Fumarate 25 MG TABLET 12.5 MG PO (16:53)
[2022-08-24 18:00] VITALS: BP 115/60; PULSE 99; TEMP 37; O2SAT 97
[2022-08-24] MEDS: Melatonin 3 MG TABLET 9 MG PO (20:37)
[2022-08-24] MEDS: Gabapentin 300 MG CAPSULE PO (20:37)
[2022-08-24] MEDS: Tamsulosin HCL 0.4 MG CAPSULE PO (20:37)
[2022-08-24] MEDS: traZODone HCL 50 MG TABLET PO (20:38)
[2022-08-25] MEDS: Levothyroxine Sodium 75 MCG TABLET PO (06:44)
[2022-08-25 08:00] VITALS: BP 131/77; PULSE 85; RESP 18; TEMP 36.1; O2SAT 97
[2022-08-25] MEDS: Sotalol HCL 80 MG TABLET PO (08:27)
[2022-08-25] MEDS: Isosorbide Mononitrate 30 MG TAB.ER.24H PO (08:27)
[2022-08-25] MEDS: lisinopriL 2.5 MG TABLET PO (08:27)
[2022-08-25] MEDS: Ezetimibe 10 MG TABLET PO (08:27)
[2022-08-25] MEDS: Aspirin Enteric Coated 81 MG TABLET.DR PO (08:28)
[2022-08-25] MEDS: QUEtiapine Fumarate 25 MG TABLET 12.5 MG PO (08:29)
--- NOTE | 2022-08-25 11:39 | PM.PSYDC ---
DS: Providers Provider Date of Service: 08/25/22 <Lois Magaña NP - Last Filed: 08/25/22 15:57> Date of admission: 08/21/22 19:59 <Lois Magaña NP - Last Filed: 08/25/22 15:57> Date of discharge: 08/25/22 <Lois Magaña NP - Last Filed: 08/25/22 15:57> Primary care physician: Amari Vyas DO, MD <Lois Magaña NP - Last Filed: 08/25/22 15:57> Attending physician on admission: Lois Magaña <Lois Magñaa NP - Last Filed: 08/25/22 15:57> Consults: 08/22/22 16:15 Consult to Hospitalist Routine Comment: Consulting Provider: Hospitalist Reason For Exam: sudden onset of left sided numbness 08/22/22 19:18 Consult to Neurology Routine Consulting Provider: Noemi Underwood Reason for consultation: stroke <Lois Magaña NP - Last Filed: 08/25/22 15:57> Attending physician on discharge: Lois Magaña <Lois Magaña NP - Last Filed: 08/25/22 15:57> DS: Diagnosis Discharge Diagnosis (1) MDD (major depressive disorder), recurrent episode: Status: Acute <Lois Magaña NP - Last Filed: 08/25/22 15:57> (2) Paresthesia of left upper and lower extremity: Status: Acute <Lois Magaña NP - Last Filed: 08/25/22 15:57> DS: Medications Discharge Medications Home Medications: Home Medications Medication Instructions Recorded Confirmed acetaminophen 500 mg tablet 1,000 mg PO Q6H PRN pain 08/19/22 08/19/22 albuterol sulfate 90 mcg/actuation 2 puff inhalation Q4H PRN 08/19/22 08/19/22 aerosol inhaler Shortness Of Breath calcium carbonate 200 mg calcium 200 mg PO Q4H PRN Indigestion 08/19/22 08/19/22 (500 mg) chewable tablet (Calcium Antacid) cyclobenzaprine 10 mg tablet 5 mg PO TID PRN muscle spasm 08/19/22 08/19/22 gabapentin 300 mg capsule 300 mg PO BEDTIME 08/19/22 08/19/22 hydroxyzine pamoate 50 mg capsule 50 mg PO BID PRN Anxiety 08/19/22 08/19/22 melatonin 10 mg-lemon balm leaf 1 tab PO BEDTIME PRN insomnia 08/19/22 08/19/22 extract 1 mg tablet nitroglycerin 0.4 mg sublingual 0.4 mg sublingual Q5M PRN Chest 08/19/22 08/19/22 tablet Pain ondansetron 4 mg disintegrating 4 mg PO Q6H PRN nausea/vomiting 08/19/22 08/19/22 tablet rivaroxaban 15 mg tablet (Xarelto) 15 mg PO DAILY@1700 08/19/22 08/19/22 sotalol 80 mg tablet 80 mg PO BID 08/19/22 08/19/22 tamsulosin 0.4 mg capsule 0.4 mg PO BEDTIME 08/19/22 08/19/22 tramadol 50 mg tablet 50 mg PO Q6H PRN Pain 08/19/22 08/19/22 trazodone 50 mg tablet 50 mg PO BEDTIME 08/19/22 08/19/22 Previous Rx's Medication Instructions Recorded isosorbide mononitrate 30 mg 30 mg PO DAILY #0 tabs 09/22/21 tablet,extended release 24 hr levothyroxine 75 mcg tablet 75 mcg PO DAILY@0630 #0 tabs 09/22/21 lisinopril 2.5 mg tablet 2.5 mg PO DAILY #0 tabs 09/22/21 ezetimibe 10 mg tablet 10 mg PO DAILY 7 days #7 tabs 08/24/22 quetiapine 25 mg tablet 12.5 mg PO BID@0900,1700 30 days 08/24/22 #30 tabs <Lois Magaña NP - Last Filed: 08/25/22 15:57> Mental Status Exam Mental Status Exam Narrative: Pt is alert and oriented; behavior is cooperative, friendly and calm; patient is not in distress; dressed in casual attire; mood is described as good ; eye contact appropriate; Speech is normal rate, volume and prosody and not pressured; no psychomotor agitation/retardation present; thought process is organized and goal directed; Thought content is on discharge; otherwise pertinent to relevant topics and without any delusional content, paranoid ideations or grandiosity; denies any SI/HI. There is no evidence of perceptual disturbance. Patients insight and judgment are fair. <Lois Magaña NP - Last Filed: 08/25/22 15:57> Data Data Completed and Pending Completed studies during hospitalization [Text1]: 08/19/22 08/19/22 08/19/22 14:50 14:50 14:50 WBC 6.3 RBC 4.43 L Hgb 13.1 L Hct 38.5 L MCV 86.9 MCH 29.6 MCHC 34.0 RDW 12.5 Plt Count 106 L D MPV 10.9 Immature Gran % (Auto) 1.1 H Neut % (Auto) 59.6 Lymph % (Auto) 23.8 [place] % (Auto) 9.5 Eos % (Auto) 4.9 H Baso % (Auto) 1.1 Lymph # (Auto) 1.5 [place] # (Auto) 0.6 Eos # (Auto) 0.3 Baso # (Auto) 0.1 Abs Immat Gran (auto) 0.07 H Absolute Neuts (auto) 3.8 Absolute Nucleated RBC 0.000 Nucleated RBC % (auto) 0.0 PT INR APTT Sodium 140 Potassium 4.2 Chloride 106 Carbon Dioxide 23 Anion Gap 15 BUN 16 Creatinine 1.33 Estim Creat Clear Calc 69.1 Estimated GFR 55 POC Glucose Random Glucose 122 H Estimat Average Glucose Hemoglobin A1c % Calcium 8.3 L Magnesium Iron TIBC % Saturation Unsat Iron Binding Total Bilirubin 1.3 H AST 14 ALT 16 Alkaline Phosphatase 76 Troponin I High Sens B-Natriuretic Peptide Total Protein 6.8 Albumin 4.1 Triglycerides Cholesterol LDL Cholesterol, Calc HDL Cholesterol Vitamin B12 Folate TSH Free T4 Urine Color Yellow Urine Appearance Clear Urine pH 6.0 Ur Specific [employer] <= 1.005 Urine Protein Negative Urine Glucose (UA) Negative Urine Ketones Negative Urine Blood Negative Urine Nitrite Negative Ur Leukocyte Esterase Negative Stl C. cayetanensis PCR Stool Rotavirus A PCR Stl Adenov F 40/41 PCR Stool Astrovirus (PCR) Stool Campylobacter PCR Stool Cryptosporidium PCR Stl Sh Tox Pr E STEC PCR Stool E coli O157 PCR Stl Enterotoxigenic E PCR Stool EPEC (PCR) Stool EAEC (PCR) Stl E. histolytica PCR Stool Giardia Lamblia PCR Stl P. shigelloides PCR Stool Salmonella PCR Stool Sapovirus (PCR) Stl Shigella/EIEC PCR St Y.enterocolitica PCR Stool Vibrio (PCR) Stl Vibrio cholerae PCR Stl Norovirus GI/GII PCR Salicylates < 5.0 L Urine Opiates Screen Urine Fentanyl Screen Acetaminophen < 17 Ur Barbiturates Screen Ur Phencyclidine Scrn Ur Amphetamines Screen U Benzodiazepines Scrn Urine Cocaine Screen U Marijuana (THC) Screen Ethyl Alcohol < 10 C. difficile Tox B Gene COVID-19 (CONG) COVID-19 Clin Com 08/19/22 08/19/22 08/19/22 14:50 22:17 23:20 WBC RBC Hgb Hct MCV MCH MCHC RDW Plt Count MPV Immature Gran % (Auto) Neut % (Auto) Lymph % (Auto) [place] % (Auto) Eos % (Auto) Baso % (Auto) Lymph # (Auto) [place] # (Auto) Eos # (Auto) Baso # (Auto) Abs Immat Gran (auto) Absolute Neuts (auto) Absolute Nucleated RBC Nucleated RBC % (auto) PT INR APTT Sodium Potassium Chloride Carbon Dioxide Anion Gap BUN Creatinine Estim Creat Clear Calc Estimated GFR POC Glucose 110 Random Glucose Estimat Average Glucose Hemoglobin A1c % Calcium Magnesium Iron TIBC % Saturation Unsat Iron Binding Total Bilirubin AST ALT Alkaline Phosphatase Troponin I High Sens B-Natriuretic Peptide Total Protein Albumin Triglycerides Cholesterol LDL Cholesterol, Calc HDL Cholesterol Vitamin B12 Folate TSH Free T4 Urine Color Urine Appearance Urine pH Ur Specific [employer] Urine Protein Urine Glucose (UA) Urine Ketones Urine Blood Urine Nitrite Ur Leukocyte Esterase Stl C. cayetanensis PCR Stool Rotavirus A PCR Stl Adenov F 40/41 PCR Stool Astrovirus (PCR) Stool Campylobacter PCR Stool Cryptosporidium PCR Stl Sh Tox Pr E STEC PCR Stool E coli O157 PCR Stl Enterotoxigenic E PCR Stool EPEC (PCR) Stool EAEC (PCR) Stl E. histolytica PCR Stool Giardia Lamblia PCR Stl P. shigelloides PCR Stool Salmonella PCR Stool Sapovirus (PCR) Stl Shigella/EIEC PCR St Y.enterocolitica PCR Stool Vibrio (PCR) Stl Vibrio cholerae PCR Stl Norovirus GI/GII PCR Salicylates Urine Opiates Screen Not Detected Urine Fentanyl Screen Not Detected Acetaminophen Ur Barbiturates Screen Not Detected Ur Phencyclidine Scrn Not Detected Ur Amphetamines Screen Not Detected U Benzodiazepines Scrn Not Detected Urine Cocaine Screen Not Detected U Marijuana (THC) Screen Not Detected Ethyl Alcohol C. difficile Tox B Gene COVID-19 (CONG) Negative COVID-19 Clin Com See Note 08/20/22 08/20/22 08/20/22 10:40 10:40 10:40 WBC 5.6 RBC 4.44 L Hgb 13.1 L Hct 38.2 L MCV 86.0 MCH 29.5 MCHC 34.3 RDW 12.4 Plt Count 96 L MPV 11.3 Immature Gran % (Auto) 1.3 H Neut % (Auto) 63.4 Lymph % (Auto) 19.8 L [place] % (Auto) 8.8 Eos % (Auto) 5.4 H Baso % (Auto) 1.3 Lymph # (Auto) 1.1 L [place] # (Auto) 0.5 Eos # (Auto) 0.3 Baso # (Auto) 0.1 Abs Immat Gran (auto) 0.07 H Absolute Neuts (auto) 3.6 Absolute Nucleated RBC 0.000 Nucleated RBC % (auto) 0.0 PT 12.5 INR 1.1 APTT 31.6 Sodium 140 Potassium 4.3 Chloride 106 Carbon Dioxide 27 Anion Gap 11 L BUN 15 Creatinine 1.07 Estim Creat Clear Calc 85.9 Estimated GFR > 60 POC Glucose Random Glucose 133 H Estimat Average Glucose Hemoglobin A1c % Calcium 8.5 Magnesium Iron TIBC % Saturation Unsat Iron Binding Total Bilirubin 1.1 H AST 14 ALT 15 Alkaline Phosphatase 74 Troponin I High Sens B-Natriuretic Peptide Total Protein 6.5 Albumin 3.9 Triglycerides Cholesterol LDL Cholesterol, Calc HDL Cholesterol Vitamin B12 Folate TSH Free T4 Urine Color Urine Appearance Urine pH Ur Specific [employer] Urine Protein Urine Glucose (UA) Urine Ketones Urine Blood Urine Nitrite Ur Leukocyte Esterase Stl C. cayetanensis PCR Stool Rotavirus A PCR Stl Adenov F 40/ PCR Stool Astrovirus (PCR) Stool Campylobacter PCR Stool Cryptosporidium PCR Stl Sh Tox Pr E STEC PCR Stool E coli O157 PCR Stl Enterotoxigenic E PCR Stool EPEC (PCR) Stool EAEC (PCR) Stl E. histolytica PCR Stool Giardia Lamblia PCR Stl P. shigelloides PCR Stool Salmonella PCR Stool Sapovirus (PCR) Stl Shigella/EIEC PCR St Y.enterocolitica PCR Stool Vibrio (PCR) Stl Vibrio cholerae PCR Stl Norovirus GI/GII PCR Salicylates Urine Opiates Screen Urine Fentanyl Screen Acetaminophen Ur Barbiturates Screen Ur Phencyclidine Scrn Ur Amphetamines Screen U Benzodiazepines Scrn Urine Cocaine Screen U Marijuana (THC) Screen Ethyl Alcohol C. difficile Tox B Gene COVID-19 (CONG) COVID-19 [email or web address] Com 08/20/22 08/20/22 08/20/22 10:40 10:40 14:08 WBC RBC Hgb Hct MCV MCH MCHC RDW Plt Count MPV Immature Gran % (Auto) Neut % (Auto) Lymph % (Auto) [place] % (Auto) Eos % (Auto) Baso % (Auto) Lymph # (Auto) [place] # (Auto) Eos # (Auto) Baso # (Auto) Abs Immat Gran (auto) Absolute Neuts (auto) Absolute Nucleated RBC Nucleated RBC % (auto) PT INR APTT Sodium Potassium Chloride Carbon Dioxide Anion Gap BUN Creatinine Estim Creat Clear Calc Estimated GFR POC Glucose Random Glucose Estimat Average Glucose Hemoglobin A1c % Calcium Magnesium Iron TIBC % Saturation Unsat Iron Binding Total Bilirubin AST ALT Alkaline Phosphatase Troponin I High Sens < 2.7 < 2.7 B-Natriuretic Peptide 76 Total Protein Albumin Triglycerides Cholesterol LDL Cholesterol, Calc HDL Cholesterol Vitamin B12 Folate TSH Free T4 Urine Color Urine Appearance Urine pH Ur Specific [employer] Urine Protein Urine Glucose (UA) Urine Ketones Urine Blood Urine Nitrite Ur Leukocyte Esterase Stl C. cayetanensis PCR Stool Rotavirus A PCR Stl Adenov F 40 PCR Stool Astrovirus (PCR) Stool Campylobacter PCR Stool Cryptosporidium PCR Stl Sh Tox Pr E STEC PCR Stool E coli O157 PCR Stl Enterotoxigenic E PCR Stool EPEC (PCR) Stool EAEC (PCR) Stl E. histolytica PCR Stool Giardia Lamblia PCR Stl P. shigelloides PCR Stool Salmonella PCR Stool Sapovirus (PCR) Stl Shigella/EIEC PCR St Y.enterocolitica PCR Stool Vibrio (PCR) Stl Vibrio cholerae PCR Stl Norovirus GI/GII PCR Salicylates Urine Opiates Screen Urine Fentanyl Screen Acetaminophen Ur Barbiturates Screen Ur Phencyclidine Scrn Ur Amphetamines Screen U Benzodiazepines Scrn Urine Cocaine Screen U Marijuana (THC) Screen Ethyl Alcohol C. difficile Tox B Gene COVID-19 (CONG) COVID-19 [email or web address] Com 05/22/23 05/22/23 05/22/23 08:14 08:14 18:07 WBC RBC Hgb Hct MCV MCH MCHC RDW Plt Count MPV Immature Gran % (Auto) Neut % (Auto) Lymph % (Auto) [place] % (Auto) Eos % (Auto) Baso % (Auto) Lymph # (Auto) [place] # (Auto) Eos # (Auto) Baso # (Auto) Abs Immat Gran (auto) Absolute Neuts (auto) Absolute Nucleated RBC Nucleated RBC % (auto) PT INR APTT Sodium Potassium Chloride Carbon Dioxide Anion Gap BUN Creatinine Estim Creat Clear Calc Estimated GFR POC Glucose 194 H Random Glucose Estimat Average Glucose 126 Hemoglobin A1c % 6.0 Calcium Magnesium 2.2 Iron TIBC % Saturation Unsat Iron Binding Total Bilirubin AST ALT Alkaline Phosphatase Troponin I High Sens B-Natriuretic Peptide Total Protein Albumin Triglycerides 169 Cholesterol 230 LDL Cholesterol, Calc 153 HDL Cholesterol 44 Vitamin B12 329 Folate 9.1 TSH 1.88 Free T4 1.32 Urine Color Urine Appearance Urine pH Ur Specific [employer] Urine Protein Urine Glucose (UA) Urine Ketones Urine Blood Urine Nitrite Ur Leukocyte Esterase Stl C. cayetanensis PCR Stool Rotavirus A PCR Stl Adenov F 40/41 PCR Stool Astrovirus (PCR) Stool Campylobacter PCR Stool Cryptosporidium PCR Stl Sh Tox Pr E STEC PCR Stool E coli O157 PCR Stl Enterotoxigenic E PCR Stool EPEC (PCR) Stool EAEC (PCR) Stl E. histolytica PCR Stool Giardia Lamblia PCR Stl P. shigelloides PCR Stool Salmonella PCR Stool Sapovirus (PCR) Stl Shigella/EIEC PCR St Y.enterocolitica PCR Stool Vibrio (PCR) Stl Vibrio cholerae PCR Stl Norovirus GI/GII PCR Salicylates Urine Opiates Screen Urine Fentanyl Screen Acetaminophen Ur Barbiturates Screen Ur Phencyclidine Scrn Ur Amphetamines Screen U Benzodiazepines Scrn Urine Cocaine Screen U Marijuana (THC) Screen Ethyl Alcohol C. difficile Tox B Gene COVID-19 (CONG) COVID-19 Clin Com 08/23/22 08/23/22 08/23/22 10:03 10:26 13:25 WBC RBC Hgb Hct MCV MCH MCHC RDW Plt Count MPV Immature Gran % (Auto) Neut % (Auto) Lymph % (Auto) [place] % (Auto) Eos % (Auto) Baso % (Auto) Lymph # (Auto) [place] # (Auto) Eos # (Auto) Baso # (Auto) Abs Immat Gran (auto) Absolute Neuts (auto) Absolute Nucleated RBC Nucleated RBC % (auto) PT INR APTT Sodium Potassium Chloride Carbon Dioxide Anion Gap BUN Creatinine Estim Creat Clear Calc Estimated GFR POC Glucose 237 H Random Glucose Estimat Average Glucose Hemoglobin A1c % Calcium Magnesium Iron TIBC % Saturation Unsat Iron Binding Total Bilirubin AST ALT Alkaline Phosphatase Troponin I High Sens < 2.7 < 2.7 B-Natriuretic Peptide Total Protein Albumin Triglycerides Cholesterol LDL Cholesterol, Calc HDL Cholesterol Vitamin B12 Folate TSH Free T4 Urine Color Urine Appearance Urine pH Ur Specific [employer] Urine Protein Urine Glucose (UA) Urine Ketones Urine Blood Urine Nitrite Ur Leukocyte Esterase Stl C. cayetanensis PCR Stool Rotavirus A PCR Stl Adenov F 40/ PCR Stool Astrovirus (PCR) Stool Campylobacter PCR Stool Cryptosporidium PCR Stl Sh Tox Pr E STEC PCR Stool E coli O157 PCR Stl Enterotoxigenic E PCR Stool EPEC (PCR) Stool EAEC (PCR) Stl E. histolytica PCR Stool Giardia Lamblia PCR Stl P. shigelloides PCR Stool Salmonella PCR Stool Sapovirus (PCR) Stl Shigella/EIEC PCR St Y.enterocolitica PCR Stool Vibrio (PCR) Stl Vibrio cholerae PCR Stl Norovirus GI/GII PCR Salicylates Urine Opiates Screen Urine Fentanyl Screen Acetaminophen Ur Barbiturates Screen Ur Phencyclidine Scrn Ur Amphetamines Screen U Benzodiazepines Scrn Urine Cocaine Screen U Marijuana (THC) Screen Ethyl Alcohol C. difficile Tox B Gene COVID-19 (CONG) COVID-19 Clin Com 08/23/22 08/23/22 08/23/22 18:14 18:14 19:44 WBC 6.3 RBC 4.38 L Hgb 12.7 L Hct 38.1 L MCV 87.0 MCH 29.0 MCHC 33.3 RDW 12.5 Plt Count 97 L MPV 11.5 Immature Gran % (Auto) 1.1 H Neut % (Auto) 58.3 Lymph % (Auto) 24.0 [place] % (Auto) 10.7 Eos % (Auto) 4.8 H Baso % (Auto) 1.1 Lymph # (Auto) 1.5 [place] # (Auto) 0.7 Eos # (Auto) 0.3 Baso # (Auto) 0.1 Abs Immat Gran (auto) 0.07 H Absolute Neuts (auto) 3.7 Absolute Nucleated RBC 0.000 Nucleated RBC % (auto) 0.0 PT INR APTT Sodium Potassium Chloride Carbon Dioxide Anion Gap BUN Creatinine Estim Creat Clear Calc Estimated GFR POC Glucose Random Glucose Estimat Average Glucose Hemoglobin A1c % Calcium Magnesium Iron 63 TIBC 241 % Saturation 26 Unsat Iron Binding 178 Total Bilirubin AST ALT Alkaline Phosphatase Troponin I High Sens < 2.7 B-Natriuretic Peptide Total Protein Albumin Triglycerides Cholesterol LDL Cholesterol, Calc HDL Cholesterol Vitamin B12 Folate TSH Free T4 Urine Color Urine Appearance Urine pH Ur Specific [employer] Urine Protein Urine Glucose (UA) Urine Ketones Urine Blood Urine Nitrite Ur Leukocyte Esterase Stl C. cayetanensis PCR Stool Rotavirus A PCR Stl Adenov F 40/ PCR Stool Astrovirus (PCR) Stool Campylobacter PCR Stool Cryptosporidium PCR Stl Sh Tox Pr E STEC PCR Stool E coli O157 PCR Stl Enterotoxigenic E PCR Stool EPEC (PCR) Stool EAEC (PCR) Stl E. histolytica PCR Stool Giardia Lamblia PCR Stl P. shigelloides PCR Stool Salmonella PCR Stool Sapovirus (PCR) Stl Shigella/EIEC PCR St Y.enterocolitica PCR Stool Vibrio (PCR) Stl Vibrio cholerae PCR Stl Norovirus GI/GII PCR Salicylates Urine Opiates Screen Urine Fentanyl Screen Acetaminophen Ur Barbiturates Screen Ur Phencyclidine Scrn Ur Amphetamines Screen U Benzodiazepines Scrn Urine Cocaine Screen U Marijuana (THC) Screen Ethyl Alcohol C. difficile Tox B Gene COVID-19 (CONG) COVID-19 Clin Com 08/24/22 08/24/22 08/24/22 10:10 10:20 10:20 WBC 6.8 RBC 4.72 Hgb 13.7 L Hct 41.2 L MCV 87.3 MCH 29.0 MCHC 33.3 RDW 12.5 Plt Count 97 L MPV 10.7 Immature Gran % (Auto) 1.3 H Neut % (Auto) 60.3 Lymph % (Auto) 21.9 [place] % (Auto) 8.8 Eos % (Auto) 6.5 H Baso % (Auto) 1.2 Lymph # (Auto) 1.5 [place] # (Auto) 0.6 Eos # (Auto) 0.4 Baso # (Auto) 0.1 Abs Immat Gran (auto) 0.09 H Absolute Neuts (auto) 4.1 Absolute Nucleated RBC 0.000 Nucleated RBC % (auto) 0.0 PT INR APTT Sodium Potassium Chloride Carbon Dioxide Anion Gap BUN Creatinine Estim Creat Clear Calc Estimated GFR POC Glucose Random Glucose Estimat Average Glucose Hemoglobin A1c % Calcium Magnesium Iron TIBC % Saturation Unsat Iron Binding Total Bilirubin AST ALT Alkaline Phosphatase Troponin I High Sens B-Natriuretic Peptide Total Protein Albumin Triglycerides Cholesterol LDL Cholesterol, Calc HDL Cholesterol Vitamin B12 Folate TSH Free T4 Urine Color Urine Appearance Urine pH Ur Specific [employer] Urine Protein Urine Glucose (UA) Urine Ketones Urine Blood Urine Nitrite Ur Leukocyte Esterase Stl C. cayetanensis PCR Not Detected Stool Rotavirus A PCR Not Detected Stl Adenov F 40/41 PCR Not Detected Stool Astrovirus (PCR) Not Detected Stool Campylobacter PCR Not Detected Stool Cryptosporidium PCR Not Detected Stl Sh Tox Pr E STEC PCR Not Detected Stool E coli O157 PCR Not applicable Stl Enterotoxigenic E PCR Not Detected Stool EPEC (PCR) Not Detected Stool EAEC (PCR) Not Detected Stl E. histolytica PCR Not Detected Stool Giardia Lamblia PCR Not Detected Stl P. shigelloides PCR Not Detected Stool Salmonella PCR Not Detected Stool Sapovirus (PCR) Not Detected Stl Shigella/EIEC PCR Not Detected St Y.enterocolitica PCR Not Detected Stool Vibrio (PCR) Not Detected Stl Vibrio cholerae PCR Not Detected Stl Norovirus GI/GII PCR Not Detected Salicylates Urine Opiates Screen Urine Fentanyl Screen Acetaminophen Ur Barbiturates Screen Ur Phencyclidine Scrn Ur Amphetamines Screen U Benzodiazepines Scrn Urine Cocaine Screen U Marijuana (THC) Screen Ethyl Alcohol C. difficile Tox B Gene NEGATIVE COVID-19 (CONG) COVID-19 Clin Com <Lois Magaña NP - Last Filed: 08/25/22 15:57> Imaging Diagnostic Imaging Impressions Chest X-Ray 08/20/22 10:50 IMPRESSION: 1. No acute cardiopulmonary findings. 2. Stable cardiomegaly. Head CT 08/22/22 18:00 IMPRESSION: 1. No acute intracranial process seen. 2. Chronic bilateral maxillary sinus inflammatory changes. This critical result was discussed with HEAVENLY Avendano at 6:17 pm on 08/22/2022. It was ascertained that the content and urgency of the report was understood at the time of direct communication. Carotid Doppler Study 08/22/22 20:46 1. IMPRESSION: RIGHT: Normal right internal carotid artery without atherosclerotic plaque or hemodynamically significant stenosis. 2. LEFT: Normal left internal carotid artery without atherosclerotic plaque or hemodynamically significant stenosis. 3. No interval change when compared to the 2012 study <Lois Magaña NP - Last Filed: 08/25/22 15:57> DS: Summary Hospital Course Hospital Course: Patient is a 62 year old male with pacemaker/defibrillator, COPD, developmental delay, who self presented to [facility] with suicidal ideation to OD on his medications secondary to increased ongoing depression d/t loss of his mother 3 years ago and chronic medical issues. Patient reports he would like his mood and anxiety improved but is concerned about starting new medications. He reports Seroquel has been helpful in the past. Patient wanted to stop taking his Resperidal because he believed it was not benefiting him. Risks/benefits of Seroquel were discussed d/t patients cardiac hx; cardiology also consulted. Patient stated he would still like to continue with restarting Seroquel feeling benefits outweigh risks. Patient was started on Seroquel 25mg PO at bedtime with positive effect. Seroquel was then changed to 12.5mg 0800 and 1500 to help with day time anxiety. Patient was pleased with medication adjustment and reported he was sleeping better and feeling better . T/W spoke to hospital proposal analyst (Dr. Curry); doctor stated that he does not see a concern with having patient on a low dose of Seroquel but to have patient continue to monitor EKG's for possible prolonged QTC with his outpatient proposal analyst. Upon discharge patient was at baseline and was able to acknowledge that he has a lot of supports in the community. Patient plans on following up with his outpatient providers and will either call 911 or go to the nearest emergency room if feeling unsafe in the future. Patient denies SI/HI/VH/AH at this time. Of note, during admission patient Numerous medical complaints and two rapid responses one for chest pain, one for left-sided weakness. Findings/Tests were all unremarkable. Patient has significant Somatoform disorder and Hospitalists agreed that these symptoms were not medical and most likely psychiatric. <Lois Magaña NP - Last Filed: 08/25/22 15:57> Time spent discussing smoking cessation with patient: 3 to 10 minutes <Lois Magaña NP - Last Filed: 08/25/22 15:57> Status at Discharge Cognitive/behavioral status at discharge: Patient was interviewed prior to discharge and found to be fully oriented and without any SI or HI. Patient has insight and demonstrates good judgment in terms of wanting to pursue treatment. Patient is not in imminent risk of harm to self or others and has a safety plan that includes presenting to the closest ER or calling 911 if feeling unsafe. Patient has been observed closely by nursing and unit staff throughout admission; patient has not engaged in any behaviors that suggest dangerousness to self or others and has demonstrated appropriate behaviors and impulse control. <Lois Magaña NP - Last Filed: 08/25/22 15:57> Patient was interviewed prior to discharge and found to be fully oriented and without any SI or HI. Patient has insight and demonstrates good judgment in terms of wanting to pursue treatment. Patient is not in imminent risk of harm to self or others and has a safety plan that includes presenting to the closest ER or calling 911 if feeling unsafe. Patient has been observed closely by nursing and unit staff throughout admission; patient has not engaged in any behaviors that suggest dangerousness to self or others and has demonstrated appropriate behaviors and impulse control. <Trev Gomez MD - Last Filed: 09/02/22 09:41> Functional status at discharge: independent ambulation <Lois Magaña NP - Last Filed: 08/25/22 15:57> Overall status at discharge: patient is back to baseline <Lois Magaña NP - Last Filed: 08/25/22 15:57> Time Spent with Patient Time attestation: Total time managing care of this patient today ____ minutes. <Lois Magaña NP - Last Filed: 08/25/22 15:57> Time spent: Less than 30 minutes <Lois Magaña NP - Last Filed: 08/25/22 15:57> Discharge Plan Discharge Anticipated Discharge Date/Time: 08/25/22 11:45 <Lois Magaña NP - Last Filed: 08/25/22 15:57> Patient Disposition: Home, Self-Care <Lois Magaña NP - Last Filed: 08/25/22 15:57> Discharge Diagnosis: Major Depressive D/O <Lois Magaña NP - Last Filed: 08/25/22 15:57> Major Depressive D/O <Trev Gomez MD - Last Filed: 09/02/22 09:41> Referrals: Sujatha Ender: [facility] (therapy) [Other] - 08/30/22 10:00 am (Initial Diagnostic Evaluation for Therapy Appointment is in office at [facility]) Department of Mental Health ([facility]) [Other] - 1 Week (Referral for Department Mental Health ([facility] [facility] has up to 90 days to review application. Patient may follow-up on referral after discharge. ) Aubrey Reina: [facility] ([facility]) [Other] - 09/13/22 3:00 pm (Initial Psychiatric evaluation by Psychiatric Medication Provider Appointment is in person at [facility]. ) Amari Vyas DO, MD [Primary Care Provider] - 1 Week <Lois Magaña NP - Last Filed: 08/25/22 15:57> Discharge Medications: New quetiapine 25 mg Tablet 12.5 mg PO BID@0900,1700 30 Days Qty: 30 0RF ezetimibe 10 mg Tablet 10 mg PO DAILY 7 Days Qty: 7 0RF Continued isosorbide mononitrate 30 mg Tablet Extended Release 24 Hr 30 mg PO DAILY Qty: 0 0RF Protocol: Hold for SBP< HOLD for SBP < : 90 lisinopril 2.5 mg Tablet 2.5 mg PO DAILY Qty: 0 0RF Protocol: Hold for SBP< HOLD for SBP < : 90 levothyroxine 75 mcg Tablet 75 mcg PO DAILY@0630 Qty: 0 0RF cyclobenzaprine 10 mg tablet 5 mg PO TID PRN (Reason: muscle spasm) trazodone 50 mg tablet 50 mg PO BEDTIME sotalol 80 mg tablet 80 mg PO BID hydroxyzine pamoate 50 mg capsule 50 mg PO BID PRN (Reason: Anxiety) tramadol 50 mg tablet 50 mg PO Q6H PRN (Reason: Pain) acetaminophen 500 mg tablet 1,000 mg PO Q6H PRN (Reason: pain) tamsulosin 0.4 mg capsule 0.4 mg PO BEDTIME calcium carbonate [Calcium Antacid] 200 mg calcium (500 mg) tablet,chewable 200 mg PO Q4H PRN (Reason: Indigestion) nitroglycerin 0.4 mg tablet, sublingual 0.4 mg sublingual Q5M PRN (Reason: Chest Pain) ondansetron 4 mg tablet,disintegrating 4 mg PO Q6H PRN (Reason: nausea/vomiting) Xarelto 15 mg tablet 15 mg PO DAILY@1700 melatonin-lemon balm leaf extr 10-1 mg tablet 1 tab PO BEDTIME PRN (Reason: insomnia) gabapentin 300 mg capsule 300 mg PO BEDTIME albuterol sulfate 90 mcg/actuation HFA aerosol inhaler 2 puff inhalation Q4H PRN (Reason: Shortness Of Breath) Discontinued risperidone 1 mg tablet 1.5 mg PO BEDTIME <Lois Magaña NP - Last Filed: 08/25/22 15:57> Discharge Orders: Discharge Order (Routine); Ordered 08/24/22 Ordered By: Lois Magaña <oLis Magaña NP - Last Filed: 08/25/22 15:57> Diet: Regular diet <Lois Magaña NP - Last Filed: 08/25/22 15:57> Regular diet <Trev Gomez MD - Last Filed: 09/02/22 09:41> Activity on Discharge: As tolerated <Lois Magaña NP - Last Filed: 08/25/22 15:57> As tolerated <Trev Gomez MD - Last Filed: 09/02/22 09:41> Stand Alone Forms: Patient Portal Discharge page, Community Support <Lois Magaña NP - Last Filed: 08/25/22 15:57> Care Plan Goals: Maintain mood and safe behaviors Take medications as prescribed Continue to pursue sobriety Practice coping skills Continue with outpatient providers and reach out to them as needed <Lois Magaña NP - Last Filed: 08/25/22 15:57> Health Concerns: Mood stability and behaviors Sobriety <Lois Magaña NP - Last Filed: 08/25/22 15:57> Plan of Treatment: Follow up with your PCP, psychiatric provider and other outpatient providers regarding above concerns Take medications as prescribed <Lois Magaña NP - Last Filed: 08/25/22 15:57> Assessment: Patient was interviewed prior to discharge and found to be fully oriented and without any SI or HI. Patient has insight and demonstrates good judgment in terms of wanting to pursue treatment. Patient is not in imminent risk of harm to self or others and has a safety plan that includes presenting to the closest ER or calling 911 if feeling unsafe. Patient has been observed closely by nursing and unit staff throughout admission; patient has not engaged in any behaviors that suggest dangerousness to self or others and has demonstrated appropriate behaviors and impulse control <Lois Magaña NP - Last Filed: 08/25/22 15:57> Discharge Date/Time: 08/25/22 11:25 <Lois Magaña NP - Last Filed: 08/25/22 15:57>
== END 2022-08-25 11:25 | disposition home or self-care (01) | DRG 885 ==
LOC: HO.ED 08-20 15:38 → HO.PM5 08-21 20:31
PROVIDERS: Emergency Medicine; Physician Assistant; Physician Assistant Medical; Psychiatry & Neurology Psychiatry; Social Worker; Student in an Organized Health Care Education/Training Program; Admitting Provider Clinical Nurse Specialist Psychiatric/Mental Health, Adult; Emergency Provider Emergency Medicine Emergency Medical Services; PCP Internal Medicine; Visit Provider Registered Nurse
DX: F33.9 Major depressive disorder, recurrent, unspecified (principal); R45.851 Suicidal ideations; Z95.0 Presence of cardiac pacemaker; F45.9 Somatoform disorder, unspecified; E78.5 Hyperlipidemia, unspecified; R20.2 Paresthesia of skin; J44.9 Chronic obstructive pulmonary disease, unspecified; Z20.822 Contact with and (suspected) exposure to COVID-19; Z87.74 Personal history of (corrected) congenital malformations of heart and circulatory system; Z79.01 Long term (current) use of anticoagulants; Z79.899 Other long term (current) drug therapy
CPT/HCPCS: 36415; 70450; 71045; 80053; 80061; 80143; 80179; 80307; 81003; 82607; 82746; 82947; 83036; 83540; 83735; 83880; 84439; 84443; 84484; 85025; 85610; 85730; 87493; 87507; 87635; 93005; 93306; 93880; 97161; 97166; 99285; J2270; J2405; Q9957; S9485

== ENCOUNTER 2022-09-08 12:29 | Emergency (ER) | payer OTHER, SELFPAY ==
--- NOTE | ~2022-09-08 | CT_ITS ---
EXAMINATION: CT ANGIOGRAM OF THE CHEST WITH CONTRAST (CT PULMONARY ANGIOGRAM FOR PE) CLINICAL INFORMATION: Shortness of breath. COMPARISON: Chest CT from 04/20/2022. CXR from 08/20/2022. TECHNIQUE: Prior to contrast administration, noncontrast localization images were obtained. Subsequently, multidetector volumetric imaging was performed from the thoracic inlet to below the diaphragms following the administration of 65 mL Omnipaque 350 intravenous contrast. No contrast reaction reported. Sagittal, coronal, and MIP oblique sagittal reformatted images were obtained on the CT workstation, uploaded to PACS, and reviewed. This CT examination was performed using dose optimization techniques as appropriate, variously including the following: *Automated exposure control *Adjustment of mA and/or kV according to patient size (this includes techniques or standardized protocols for targeted exams where dose is matched to indication/reason for exam; i.e. extremities or head) *Use of iterative reconstruction technique DLP: Total exam dose-length product 1232 mGy-cm FINDINGS: LUNGS AND PLEURA: Lungs are well expanded. No acute findings. No evidence of pulmonary edema, consolidation or pleural effusion. No pneumothorax. QUALITY OF STUDY/CONTRAST BOLUS: Satisfactory. PULMONARY ARTERIES: Pulmonary artery trunk is normal in caliber (measures 2.8 cm transverse diameter). Again noted is a left pulmonary artery that is chronically smaller than the right pulmonary artery. No embolic filling defects within the main, lobar or segmental vessels. OTHER CARDIOVASCULAR: Left ventricular wall is chronically mildly hypertrophied. There appears to be chronic focal thinning of myocardium at the apex of the left ventricle were there is subtle calcification; findings consistent with remote focal myocardial infarction. Automatic implantable cardioverter defibrillator generator in place with transvenous leads extending to the right atrium and right ventricle. No pericardial effusion. Thoracic aorta is normal in size. MEDIASTINUM: No mediastinal mass. The esophagus has normal wall thickness. LYMPHATICS: No pathologic sized axillary, hilar or mediastinal lymph nodes. UPPER ABDOMEN: No acute findings within the visualized portion of the upper abdomen. OSSEOUS STRUCTURES: Diffuse idiopathic skeletal hyperostosis with presence of extensive flowing anterior ligament ossification of the spine. Bone island of T6 vertebral body. No suspicious bone lesions. Chronic osseous bridging between posterior left fifth and sixth ribs could be sequela of remote trauma or surgery. There is osteophyte formation at degenerated glenohumeral joints. CT/CT angio chest PE protocol IMPRESSION: No evidence of pulmonary embolism. No acute pulmonary disease compared to prior chest CT from 04/20/2022.
--- NOTE | ~2022-09-08 | CT_ITS ---
EXAMINATION: CT HEAD WITHOUT CONTRAST CLINICAL INFORMATION: Fall. Dizziness. COMPARISON: CT head 08/22/2022, 07/11/2022, 10/23/2021. TECHNIQUE: Contiguous axial imaging was performed from the skull base to vertex without intravenous administration of contrast. This CT examination was performed using dose optimization techniques as appropriate, variously including the following: *Automated exposure control *Adjustment of mA and/or kV according to patient size (this includes techniques or standardized protocols for targeted exams where dose is matched to indication/reason for exam; i.e. extremities or head) *Use of iterative reconstruction technique DLP: 734 mGy-cm FINDINGS: There is a small focus of hyperattenuation located adjacent to the left frontal horn that has remained stable when compared to prior CT imaging from 08/22/2022. This finding has remained stable over the course of multiple previous examinations. No acute intracranial hemorrhage or abnormal extra-axial collection. No intracranial mass effect or midline shift. Lateral and third ventricles are normal. [place]. There are scattered nonspecific foci of hypoattenuation within the periventricular white matter. Warner-white matter differentiation is otherwise preserved and there is no evidence of acute territorial infarct. The calvarium and skull base are intact. Mastoid air cells and middle ear cavities are well aerated. No active paranasal sinus disease. A small retention cyst within the alveolar recess of the left maxillary sinus is noted. CT/CT head/brain wo IV con IMPRESSION: No acute intracranial finding. Specifically no evidence of acute territorial infarct or hemorrhage. Numerous chronic small vessel ischemic changes are visualized within the periventricular white matter. There is a small focus of hyperattenuation located adjacent to the left frontal horn that has remained stable over the course of multiple previous examinations. Possible diagnostic considerations include mineralization or perhaps a small cavernous malformation.
--- NOTE | 2022-09-08 12:38 | ED_ITS ---
HPI - General Adult General Chief complaint: Chest Pain Stated complaint: Chest Pain Time Seen by Provider: 09/08/22 13:13 Source: patient Mode of arrival: ambulatory Limitations: no limitations History of Present Illness HPI narrative: 62 year old male presents to the ER with chest pain. He has associated nausea a nd has felt dizzy for days. He admits to missing his most recent cardiology appointments. He denies fever chills cough. Right now his main complaint is dizziness. He states he was at his day program and his defiribllator went off. After evaluating patient he does admit to coming to the ER multiple times in the past and having interrogated and found out that the defibrillator did not go off. He wants know what is causing the symptoms. Related Data Home Medications Medication Instructions Recorded Confirmed acetaminophen 500 mg tablet 1,000 mg PO Q6H PRN pain 08/19/22 09/08/22 albuterol sulfate 90 mcg/actuation 2 puff inhalation Q4H PRN 08/19/22 09/08/22 aerosol inhaler Shortness Of Breath hydroxyzine pamoate 50 mg capsule 50 mg PO BID PRN Anxiety / Nausea 08/19/22 09/08/22 nitroglycerin 0.4 mg sublingual 0.4 mg sublingual Q5M PRN Chest 08/19/22 09/08/22 tablet Pain sotalol 80 mg tablet 80 mg PO BID 08/19/22 09/08/22 tamsulosin 0.4 mg capsule 0.4 mg PO BEDTIME 08/19/22 09/08/22 levothyroxine 75 mcg tablet 75 mcg PO DAILY@0600 09/08/22 09/08/22 melatonin 5 mg tablet 5 mg PO BEDTIME PRN Insomnia 09/08/22 09/08/22 quetiapine 25 mg tablet 25 mg PO BEDTIME 09/08/22 09/08/22 risperidone 1 mg tablet 1.5 mg PO BEDTIME 09/08/22 09/08/22 rivaroxaban 20 mg tablet (Xarelto) 20 mg PO DAILY@1800 09/08/22 09/08/22 trazodone 100 mg tablet 100 mg PO BEDTIME 09/08/22 09/08/22 Previous Rx's Medication Instructions Recorded isosorbide mononitrate 30 mg 30 mg PO DAILY #0 tabs 09/22/21 tablet,extended release 24 hr lisinopril 2.5 mg tablet 2.5 mg PO DAILY #0 tabs 09/22/21 ezetimibe 10 mg tablet 10 mg PO DAILY 7 days #7 tabs 08/24/22 Allergies Allergy/AdvReac Type Severity Reaction Status Date / Time aripiprazole [From Abilify] Allergy Severe Rash Verified 09/08/22 12:37 peas Allergy Severe HIVES Verified 09/08/22 12:37 atorvastatin [From Lipitor] Allergy Intermediate Hives Verified 09/08/22 12:37 bee pollen [bee stings] AdvReac Severe Anaphylaxis Verified 09/08/22 12:37 Review of Systems Review of Systems: Review of systems: General: DizzinessPatient denies any fever chills recent illness or falls Musculoskeletal: Denies back pain or body aches or other injuries HEENT: denies headache, runny nose, ear pain Respiratory: denies shortness of breath, cough Cardiovascular: chest pain or palpitations : denies dysuria, frequency Abdomen: nausea no vomiting denies abdominal pain Extremities: no swelling, no pain Skin: no diaphoresis Yes all other systems are reviewed and are negative [facility] Past Medical History Medical History (Updated 09/08/22 @ 16:25 by Tristan Villareal DO) Anxiety Artificial cardiac pacemaker Asthma Cardiac defibrillator in place COPD (chronic obstructive pulmonary disease) Depression Depression with suicidal ideation Developmental delay, mild Diabetes GERD (gastroesophageal reflux disease) History of ETOH abuse Hyperlipidemia Hypertension Hyperthyroidism RBBB Seizure Sleep apnea Somatoform disorder Surgical History History of cardiac cath Social History Social History Household Members: Other Household Members Other:: 2 roommates Housing: Apartment Housing Other:: Sober House Do you presently have visiting nurse or other home services: No Alcohol intake: former Patient Tobacco Use Status: Never used Tobacco Tobacco use type: Cigarette Second Hand Smoke Exposure: No Substance Use Type: Former Substance User, Prescription Drugs and Caffiene Advance Directives: No Advance Directives Information Provided: Yes service: No Current occupational status: disabled Sexual orientation: Decline to Answer Physical Exam ED Vital Signs: Vital Signs - 24 hr 09/08/22 12:40 09/08/22 13:05 09/08/22 14:39 Temperature 97.3 F Pulse Rate 103 H 87 83 Respiratory Rate 18 22 H 19 Blood Pressure 137/67 110/79 Pulse Oximetry 98 97 98 Oxygen Delivery Method Room Air 09/08/22 14:46 09/08/22 14:56 Temperature Pulse Rate 84 87 Respiratory Rate 17 15 Blood Pressure 104/74 114/75 Pulse Oximetry 98 98 Oxygen Delivery Method BMI result Body Mass Index 37.0 General: Well-appearing well-nourished in no signs of distress HEENT: Normocephalic atraumatic Neck: No signs of JVD, no masses no tenderness or lymphadenopathy Cardiovascular: Regular rate and rhythm Respiratory: Clear to auscultation bilaterally Abdomen: Soft nontender no masses rectal exam performed guiac negative housing quality standard inspector confirmed. Extremities: Normal pedal pulses no signs of edema Skin: Dry warm no rashes Back: No tenderness full ROM Course Course Course Narrative: RME- 62-year-old male past medical history significant for COPD, asthma, dep ression, developmental delay, diabetes, GERD, history of alcohol abuse, hypertension, hyperlipidemia, hyperthyroidism, presents for evaluation of chest pain. Patient reports that his pacemaker ?D fib 20 minutes ago. ? He reports having some dry heaves and now has chest pain and left arm pain. Plan for labs Of note, the patient's EKG was taken but could not be printed, a picture was uploaded to the chart Reevaluation(s) Reevaluation #1: 1513 Troponin is negative no change with nitroglycerin. The interrogation shows no shocks delivered. I will give tylenol and toradol. Reevaluation #2: CT's head and chest both negative. Two negative troponin and no actual firing of his defiribllator. I explained everything to the patient he is okay with going home. He states he ran out of his tramadol. I don't think he needs a new script. I will give a dose before she goes home. Medications Administered Generic Name Dose Route Start Last Admin Trade Name Freq PRN Reason Stop Dose Admin Nitroglycerin 0.4 mg 09/08/22 13:34 09/08/22 14:55 Nitroglycerin 0.4 Mg Tab.Subl SUBLINGUAL 0.4 mg [id number] PRN Administration Chest Pain Discontinued Medications Generic Name Dose Route Start Last Admin Trade Name Freq PRN Reason Stop Dose Admin Sodium Chloride 1,000 mls @ 999 mls/hr 09/08/22 13:30 09/08/22 14:05 Ns IV 09/08/22 14:30 999 mls/hr .Q1H1M RADHA Administration Iohexol 100 ml 09/08/22 14:29 09/08/22 14:29 Iohexol 350 Mg/Ml 100 Ml Infus..Btl IV 09/08/22 14:30 65 ml ONCE ONE Administration Ondansetron HCl 4 mg 09/08/22 13:34 09/08/22 14:00 Ondansetron Hcl 4 Mg/2 Ml Vial IVPUSH 09/08/22 13:35 4 mg ONCE ONE Administration Procedures Procedure Narrative Procedure Narrative: At this hospital nursing staff does not do the pacer interrogation with the machine so I did spend 15 minutes at the bedside connecting and evaluating the pacemaker defibrillator. Medical Decision Making Medical Decision Making [facility] Narrative: Likely firing defibrillator concerning for dysrhythmia patient is not the greatest historian is complaining of nausea and vomiting as well so I will make sure there is no signs heart disease and check a troponin check labs will interrogate defibrillator pacer. Differential Diagnosis Differential Diagnoses: The differential diagnosis associated with the presentation includes Arrrythmia anxiety, chest pain Admission/Observation Consideration of admission/observation: Escalation of care including admission/observation considered Consult Healthcare Provider Management of the patient was discussed with: Salesperson [employer] [facility] Lab Data [facility] Lab Attestation statement: I reviewed the patient's lab results. 09/08/22 13:03 09/08/22 13:03 Labs: Lab Results 09/08/22 09/08/22 09/08/22 Range/Units 13:03 13:03 13:03 WBC 6.4 (4.8-10.8) X10*3/uL RBC 4.26 L (4.60-5.80) X10*6/uL Hgb 12.4 L (14.0-18.0) g/dl Hct 37.2 L (42.0-52.0) % MCV 87.3 (80.0-98.0) fL MCH 29.1 (27.0-33.0) pg MCHC 33.3 (31.0-36.0) g/dl RDW 12.8 (11.0-16.0) % Plt Count 91 L (160-400) X10*3/uL MPV 11.2 (9.4-12.4) fL Immature Gran % (Auto) 0.9 H (0.0-0.4) % Neut % (Auto) 69.1 (45-73) % Lymph % (Auto) 18.0 L (20-40) % [place] % (Auto) 6.9 (2-11) % Eos % (Auto) 4.2 H (0-4) % Baso % (Auto) 0.9 (0-2) % Lymph # (Auto) 1.2 (1.2-4.9) X10*3/uL [place] # (Auto) 0.4 (0.1-1.2) X10*3/uL Eos # (Auto) 0.3 (0.0-0.4) X10*3/uL Baso # (Auto) 0.1 (0.0-0.2) X10*3/uL Abs Immat Gran (auto) 0.06 H (0.00-0.03) X10*3/uL Absolute Neuts (auto) 4.4 (2.0-8.3) x10*3/uL Absolute Nucleated RBC 0.000 (0.0-0.012) X10*3/uL Nucleated RBC % (auto) 0.0 (0.0-0.2) /100WBC PT 14.5 H (10.0-13.1) SEC INR 1.3 H (0.9-1.1) APTT 33.9 (26.0-36.4) SEC Sodium (135-145) mmol/L Potassium (3.3-5.1) mmol/L Chloride (96-108) mmol/L Carbon Dioxide (22-29) mmol/L Anion Gap (12-20) BUN (9-16) mg/dL Creatinine (0.5-1.4) mg/dL Estim Creat Clear Calc Estimated GFR Random Glucose (60-115) mg/dL Calcium (8.4-10.2) mg/dL Magnesium (1.6-2.6) mg/dL Total Bilirubin (0.0-1.0) mg/dL Direct Bilirubin AST (5-37) U/L ALT (0-40) U/L Alkaline Phosphatase (39-117) U/L Troponin I High Sens < 2.7 (<3.5-35.0) ng/L Total Protein (6.5-8.0) g/dL Albumin (3.5-5.0) g/dL Lipase (8-78) U/L COVID-19 (CONG) (Negative) COVID-19 Clin Com 09/08/22 09/08/22 09/08/22 Range/Units 13:33 14:36 15:36 WBC (4.8-10.8) X10*3/uL RBC (4.60-5.80) X10*6/uL Hgb (14.0-18.0) g/dl Hct (42.0-52.0) % MCV (80.0-98.0) fL MCH (27.0-33.0) pg MCHC (31.0-36.0) g/dl RDW (11.0-16.0) % Plt Count (160-400) X10*3/uL MPV (9.4-12.4) fL Immature Gran % (Auto) (0.0-0.4) % Neut % (Auto) (45-73) % Lymph % (Auto) (20-40) % [place] % (Auto) (2-11) % Eos % (Auto) (0-4) % Baso % (Auto) (0-2) % Lymph # (Auto) (1.2-4.9) X10*3/uL [place] # (Auto) (0.1-1.2) X10*3/uL Eos # (Auto) (0.0-0.4) X10*3/uL Baso # (Auto) (0.0-0.2) X10*3/uL Abs Immat Gran (auto) (0.00-0.03) X10*3/uL Absolute Neuts (auto) (2.0-8.3) x10*3/uL Absolute Nucleated RBC (0.0-0.012) X10*3/uL Nucleated RBC % (auto) (0.0-0.2) /100WBC PT (10.0-13.1) SEC INR (0.9-1.1) APTT (26.0-36.4) SEC Sodium 140 (135-145) mmol/L Potassium 3.9 (3.3-5.1) mmol/L Chloride 109 H (96-108) mmol/L Carbon Dioxide 22 (22-29) mmol/L Anion Gap 13 (12-20) BUN 12 (9-16) mg/dL Creatinine 1.20 (0.5-1.4) mg/dL Estim Creat Clear Calc 81.3 Estimated GFR > 60 Random Glucose 187 H (60-115) mg/dL Calcium 7.8 L D (8.4-10.2) mg/dL Magnesium 2.0 (1.6-2.6) mg/dL Total Bilirubin 0.8 (0.0-1.0) mg/dL Direct Bilirubin Cancelled AST 11 (5-37) U/L ALT 12 (0-40) U/L Alkaline Phosphatase 74 (39-117) U/L Troponin I High Sens < 2.7 (<3.5-35.0) ng/L Total Protein 5.9 L (6.5-8.0) g/dL Albumin 3.5 (3.5-5.0) g/dL Lipase 65 (8-78) U/L COVID-19 (CONG) Negative (Negative) COVID-19 Clin Com See Note Independent Interpretation I performed an independent interpretation of an: EKG Interpretation: LBBB no previous for comparison Rate 86 External Record Review External record reviewed: Inpatient record, Office record and Outpatient record Seen here 3 weeks ago for the same concern he then became suicidal Discharge Plan Discharge Clinical Impression: Chest pain, Dizziness, Fall, Head injury Patient Disposition: Home, Self-Care Instructions: Chest Pain (DC), Dizziness (ED), Fall Prevention (ED), Head Injury (ED) Additional Instructions: You were seen in the emergency department after a fall you had hit her head several days ago. He had a CT scan and x-rays as well as a CT scan of your chest and labs. All the labs were normal. Please call follow-up with her doctor if you have any other concerns please do not hesitate to come back to the emergency department. Prescriptions: No Action isosorbide mononitrate 30 mg Tablet Extended Release 24 Hr 30 mg PO DAILY Qty: 0 0RF Protocol: Hold for SBP< HOLD for SBP < : 90 lisinopril 2.5 mg Tablet 2.5 mg PO DAILY Qty: 0 0RF Protocol: Hold for SBP< HOLD for SBP < : 90 sotalol 80 mg tablet 80 mg PO BID hydroxyzine pamoate 50 mg capsule 50 mg PO BID PRN (Reason: Anxiety / Nausea) acetaminophen 500 mg tablet 1,000 mg PO Q6H PRN (Reason: pain) tamsulosin 0.4 mg capsule 0.4 mg PO BEDTIME nitroglycerin 0.4 mg tablet, sublingual 0.4 mg sublingual Q5M PRN (Reason: Chest Pain) albuterol sulfate 90 mcg/actuation HFA aerosol inhaler 2 puff inhalation Q4H PRN (Reason: Shortness Of Breath) ezetimibe 10 mg Tablet 10 mg PO DAILY 7 Days Qty: 7 0RF trazodone 100 mg tablet 100 mg PO BEDTIME risperidone 1 mg tablet 1.5 mg PO BEDTIME melatonin 5 mg tablet 5 mg PO BEDTIME PRN (Reason: Insomnia) Xarelto 20 mg tablet 20 mg PO DAILY@1800 quetiapine 25 mg tablet 25 mg PO BEDTIME levothyroxine 75 mcg tablet 75 mcg PO DAILY@0600
[2022-09-08 12:40] VITALS: BP 137/67; PULSE 103; RESP 18; TEMP 36.3; O2SAT 98; BMI 37.0
[2022-09-08 13:05] VITALS: PULSE 87; RESP 22; O2SAT 97
[2022-09-08 13:08] LABS: MANUAL DIFF FLAG NO
[2022-09-08 13:11] LABS: Basophils Absolute Auto 0.1 X10*3/uL (0.0-0.2); Basophils Percent Auto 0.9 % (0-2); Eosinophils Absolute Auto 0.3 X10*3/uL (0.0-0.4); Eosinophils Percent Auto 4.2 % (0-4); Hematocrit 37.2 % (42.0-52.0); Hemoglobin 12.4 g/dl (14.0-18.0); Imm Gran Abs Auto 0.06 X10*3/uL (0.00-0.03); Imm Gran Pct Auto 0.9 % (0.0-0.4); Lymphocytes Absolute Auto 1.2 X10*3/uL (1.2-4.9); Mean Corpuscular HGB Conc 33.3 g/dl (31.0-36.0); Mean Corpuscular Hemoglobin 29.1 pg (27.0-33.0); Mean Corpuscular Volume 87.3 fL (80.0-98.0); Mean Platelet Volume 11.2 fL (9.4-12.4); Monocytes Absolute Auto 0.4 X10*3/uL (0.1-1.2); Monocytes Percent Auto 6.9 % (2-11); Neutrophils Absolute Auto 4.4 x10*3/uL (2.0-8.3); Neutrophils Percent Auto 69.1 % (45-73); Red Blood Count 4.26 X10*6/uL (4.60-5.80); Red Cell Distribution Width 12.8 % (11.0-16.0); White Blood Count 6.4 X10*3/uL (4.8-10.8)
[2022-09-08 13:15] LABS: Platelet Count 91 X10*3/uL (160-400)
[2022-09-08 13:21] LABS: INTERNATIONAL NORM RATIO 1.3 (0.9-1.1); Prothrombin Time 14.5 SEC (10.0-13.1)
[2022-09-08 13:23] LABS: Partial Thromboplastin Time 33.9 SEC (26.0-36.4)
[2022-09-08 13:42] LABS: Troponin-I High Sensitivity < 2.7 ng/L (<3.5-35.0)
[2022-09-08 13:53] LABS: Alanine Aminotransferase 12 U/L (0-40); Albumin Level 3.5 g/dL (3.5-5.0); Alkaline Phosphatase 74 U/L (39-117); Anion Gap 13 (12-20); Aspartate Amino Transferase 11 U/L (5-37); Bilirubin Total 0.8 mg/dL (0.0-1.0); Blood Urea Nitrogen 12 mg/dL (9-16); Calcium 7.8 mg/dL (8.4-10.2); Carbon Dioxide 22 mmol/L (22-29); Chloride 109 mmol/L (96-108); Creatinine Clr Calc Pharmacy 81.3; Estimated Glomerular Filt Rate > 60; Glucose Random 187 mg/dL (60-115); Lipase 65 U/L (8-78); Potassium 3.9 mmol/L (3.3-5.1); Sodium 140 mmol/L (135-145); Total Protein 5.9 g/dL (6.5-8.0)
[2022-09-08] MEDS: ondansetron HCL 4 MG/2 ML VIAL IVPUSH (14:00)
[2022-09-08] MEDS: 0.9 % Sodium Chloride 1,000 ML 999 ML IV (14:05)
--- NOTE | 2022-09-08 14:17 | PHA.MEDREC ---
Pharmacy Consult ? Medication Reconciliation Pharmacy has completed the medication reconciliation. Spoke to patient to confirm meds.
[2022-09-08] MEDS: iohexoL 350 MG/ML 100 ML INFUS..BTL IV (14:29)
[2022-09-08] MEDS: Nitroglycerin 0.4 MG TAB.SUBL SUBLINGUAL ×3 (14:37→14:55)
[2022-09-08 14:39] VITALS: BP 110/79; PULSE 83; RESP 19; O2SAT 98
--- NOTE | 2022-09-08 14:45 | PC.NURSE ---
sr on monitor, took 1 dose of nitro, approx 6 min ago, no change in pain
[2022-09-08 14:46] VITALS: BP 104/74; PULSE 84; RESP 17; O2SAT 98
[2022-09-08 14:56] VITALS: BP 114/75; PULSE 87; RESP 15; O2SAT 98
--- NOTE | 2022-09-08 14:57 | PC.NURSE ---
no change in pain yet, bp steady, ns infusing, 3rd nitro given,
[2022-09-08 14:59] LABS: COVID-19 Test Negative (Negative); IDNOW Serial# 08D9AD1C
[2022-09-08 16:17] LABS: Troponin-I High Sensitivity < 2.7 ng/L (<3.5-35.0)
[2022-09-08] MEDS: traMADoL HCL 50 MG TABLET 25 MG PO (16:28)
[2022-09-08] MEDS: Acetaminophen 325 MG TABLET 650 MG PO (16:31)
[2022-09-08] MEDS: Ketorolac Tromethamine 15 MG/ML VIAL IVPUSH (16:31)
== END 2022-09-08 16:42 | disposition home or self-care (01) ==
PROVIDERS: Physician Assistant; Emergency Provider Student in an Organized Health Care Education/Training Program; PCP Internal Medicine
DX: R07.9 Chest pain, unspecified (principal); R42 Dizziness and giddiness; S09.90XA Unspecified injury of head, initial encounter; W19.XXXA Unspecified fall, initial encounter; Z20.822 Contact with and (suspected) exposure to COVID-19; E11.9 Type 2 diabetes mellitus without complications; I10 Essential (primary) hypertension; E78.5 Hyperlipidemia, unspecified; Y93.9 Activity, unspecified; Y92.9 Unspecified place or not applicable; Y99.9 Unspecified external cause status; Z95.0 Presence of cardiac pacemaker; Z79.899 Other long term (current) drug therapy
CPT/HCPCS: 36415; 70450; 71275; 80053; 83690; 83735; 84484; 85025; 85610; 85730; 87635; 96374; 96375; 99284; J1885; J2405; Q9967

== ENCOUNTER 2022-10-27 10:01 | Emergency (ER) | payer OTHER, SELFPAY ==
--- NOTE | 2022-10-27 10:16 | ECG_ITS ---
Test Reason : chest pain Blood Pressure : / mmHG Vent. Rate : 066 BPM Atrial Rate : 066 BPM P-R Int : 214 ms QRS Dur : 172 ms QT Int : 470 ms P-R-T Axes : 077 112 078 degrees QTc Int : 492 ms Sinus rhythm with 1st degree A-V block Right bundle branch block Left posterior fascicular block Bifascicular block Abnormal ECG When compared with ECG of 23-AUG-2022 18:50, Right bundle branch block has replaced Non-specific intra-ventricular conduction block Referred By: Generic ED Physician Electronically Signed By:PATO ROMAN MD
[2022-10-27 10:18] VITALS: BP 142/93; BP 91/49; PULSE 67; PULSE 77; RESP 12; TEMP 36.6; O2SAT 97; BMI 37.1
[2022-10-27 10:40] VITALS: PULSE 63
[2022-10-27 10:43] VITALS: BP 128/70; PULSE 67; RESP 12; TEMP 36.8
[2022-10-27 11:31] LABS: MANUAL DIFF FLAG NO
[2022-10-27 11:35] LABS: Basophils Absolute Auto 0.1 X10*3/uL (0.0-0.2); Basophils Percent Auto 1.1 % (0-2); Eosinophils Absolute Auto 0.3 X10*3/uL (0.0-0.4); Eosinophils Percent Auto 4.5 % (0-4); Hematocrit 35.9 % (42.0-52.0); Hemoglobin 12.1 g/dl (14.0-18.0); Imm Gran Abs Auto 0.03 X10*3/uL (0.00-0.03); Imm Gran Pct Auto 0.5 % (0.0-0.4); Lymphocytes Absolute Auto 1.2 X10*3/uL (1.2-4.9); Lymphocytes Percent Auto 21.9 % (20-40); Mean Corpuscular HGB Conc 33.7 g/dl (31.0-36.0); Mean Corpuscular Volume 86.1 fL (80.0-98.0); Mean Platelet Volume 10.4 fL (9.4-12.4); Monocytes Absolute Auto 0.5 X10*3/uL (0.1-1.2); Neutrophils Absolute Auto 3.5 x10*3/uL (2.0-8.3); Red Blood Count 4.17 X10*6/uL (4.60-5.80); White Blood Count 5.6 X10*3/uL (4.8-10.8)
[2022-10-27 11:36] LABS: Platelet Count 84 X10*3/uL (160-400)
[2022-10-27 11:43] LABS: INTERNATIONAL NORM RATIO 1.5 (0.9-1.1); Prothrombin Time 17.8 SEC (11.1-13.3)
[2022-10-27 11:46] LABS: Partial Thromboplastin Time 37.8 SEC (26.0-36.4)
[2022-10-27 11:47] LABS: Anion Gap 14 (12-20); Blood Urea Nitrogen 13 mg/dL (9-16); Calcium 8.2 mg/dL (8.4-10.2); Carbon Dioxide 22 mmol/L (22-29); Chloride 108 mmol/L (96-108); Creatinine Clr Calc Pharmacy 88.1; Estimated Glomerular Filt Rate > 60; Glucose Random 131 mg/dL (60-115); Sodium 140 mmol/L (135-145)
[2022-10-27 12:11] VITALS: BP 107/66; PULSE 65; RESP 12; TEMP 36.7; O2SAT 98
--- NOTE | 2022-10-27 12:57 | PC.NURSE ---
pt assisted to bathroom, placed a urinal at bedside, pt states pain 9 out of 10, in his chest radiating down arm, with nausea as well. WCTM
--- NOTE | 2022-10-27 13:07 | ED_ITS ---
HPI - Chest Pain General Chief Complaint: Chest Pain Stated Complaint: CP Time Seen by Provider: 10/27/22 13:06 Source: patient Mode of arrival: EMS Limitations: no limitations History of Present Illness HPI narrative: 8-year-old male who presents emergency department for evaluation of discharge of his AICD and chest pain. Patient states that he was at his day program. He did some mild exercise and then sat down. He states that his defibrillator then went off. Shortly after that he developed chest pain. He states that the incident occurred at 09:30 hours. Since that time he has been having constant, left-sided anterior chest pressure, the pain radiates to his left arm. He states that he had 2 episodes of emesis. He also had 1 episode of loose diarrheal stool. He states that he was feeling dizzy and lightheaded. He states over the last 2 days he has been having dizziness especially with exertio n. He denied fever, chills, shortness of breath, dyspnea on exertion. The patient was seen in the emergency department on 09/08/2022 with a similar presentation of feeling as if his defibrillator fired followed by chest pain, fall and head injury. Patient had a CT scan of the head at that time which was negative. Labs were unremarkable. Patient's defibrillator was interrogated and there was no shocks recorded. Patient was also seen by me on 08/19/2022 for suicidal ideation, while he was here complained of chest pain and felt like his defibrillator discharged followed by chest pain. At that time, the patient is to fibular was interrogated and there were no shocks delivered. Related Data Home Medications Medication Instructions Recorded Confirmed acetaminophen 500 mg tablet 1,000 mg PO Q6H PRN pain 08/19/22 09/08/22 albuterol sulfate 90 mcg/actuation 2 puff inhalation Q4H PRN 08/19/22 09/08/22 aerosol inhaler Shortness Of Breath hydroxyzine pamoate 50 mg capsule 50 mg PO BID PRN Anxiety / Nausea 08/19/22 09/08/22 nitroglycerin 0.4 mg sublingual 0.4 mg sublingual Q5M PRN Chest 08/19/22 09/08/22 tablet Pain sotalol 80 mg tablet 80 mg PO BID 08/19/22 09/08/22 tamsulosin 0.4 mg capsule 0.4 mg PO BEDTIME 08/19/22 09/08/22 levothyroxine 75 mcg tablet 75 mcg PO DAILY@0600 09/08/22 09/08/22 melatonin 5 mg tablet 5 mg PO BEDTIME PRN Insomnia 09/08/22 09/08/22 quetiapine 25 mg tablet 25 mg PO BEDTIME 09/08/22 09/08/22 risperidone 1 mg tablet 1.5 mg PO BEDTIME 09/08/22 09/08/22 rivaroxaban 20 mg tablet (Xarelto) 20 mg PO DAILY@1800 09/08/22 09/08/22 trazodone 100 mg tablet 100 mg PO BEDTIME 09/08/22 09/08/22 Previous Rx's Medication Instructions Recorded isosorbide mononitrate 30 mg 30 mg PO DAILY #0 tabs 09/22/21 tablet,extended release 24 hr lisinopril 2.5 mg tablet 2.5 mg PO DAILY #0 tabs 09/22/21 ezetimibe 10 mg tablet 10 mg PO DAILY 7 days #7 tabs 08/24/22 Allergies Allergy/AdvReac Type Severity Reaction Status Date / Time aripiprazole [From Abilify] Allergy Severe Rash Verified 09/08/22 12:37 peas Allergy Severe HIVES Verified 09/08/22 12:37 atorvastatin [From Lipitor] Allergy Intermediate Hives Verified 09/08/22 12:37 bee pollen [bee stings] AdvReac Severe Anaphylaxis Verified 09/08/22 12:37 Review of Systems Review of Systems: Yes all other systems are reviewed and are negative [facility] Past Medical History [facility] Narrative: Social history: Patient states that he lives in apartment in [place]. He denies tobacco, alcohol and drug use. Medical History Anxiety Artificial cardiac pacemaker Asthma Cardiac defibrillator in place COPD (chronic obstructive pulmonary disease) Depression Depression with suicidal ideation Developmental delay, mild Diabetes GERD (gastroesophageal reflux disease) History of ETOH abuse Hyperlipidemia Hypertension Hyperthyroidism RBBB Seizure Sleep apnea Somatoform disorder Surgical History History of cardiac cath Social History Social History Household Members: Other Household Members Other:: 2 roommates Housing: Apartment Housing Other:: Sober House Do you presently have visiting nurse or other home services: No Alcohol intake: former Patient Tobacco Use Status: Never used Tobacco Tobacco use type: Cigarette Smoked in Last 30 Days: No Second Hand Smoke Exposure: No Use of substances other than those prescribed or required for medical reasons: No Substance Use Type: Former Substance User, Prescription Drugs and Caffiene Advance Directives: No service: No Current occupational status: disabled Sexual orientation: Decline to Answer Physical Exam Vital Signs: Vital Signs: Last Vital Signs Temp 97.6 F 10/27/22 15:54 Pulse 70 10/27/22 15:54 Resp 15 10/27/22 15:54 BP 145/78 H 10/27/22 15:54 Pulse Ox 97 10/27/22 15:54 O2 Del Method Room Air 10/27/22 15:54 BMI result Body Mass Index 37.1 Const: General: cooperative and no acute distress Orientation/consciousness: oriented to person and oriented to place Limitations: no limitations HEENT: Head: Yes normal to inspection, Yes normocephalic and Yes atraumatic Ears: external ears normal General nose exam: Normal external nose present Face and sinus: Yes normal facial exam Mouth: Normal oral and palatal mucosa present Throat: Yes posterior oropharynx normal Eyes: General: appearance normal, both eyes and all related structures Pupils: Equal, round and reactive pupils present Neck: Neck: Yes normal visual inspection, Yes no lymphadenopathy, Yes trachea midline and Yes supple Chest: Chest palpation & inspection: normal inspection of the chest and normal palpation of entire chest wall Resp: Effort & Inspection: normal respiratory effort and able to speak in complete sentences Auscultation: clear to auscultation bilaterally Cardio: Rate: regular rate Rhythm: regular rhythm Heart sounds: S1 normal heart sound present, S2 normal heart sound present and no murmurs GI: Inspection: Yes normal to inspection Palpation (GI): Soft to palpation, nontender and no guarding Auscultation: normal bowel sounds : General: Yes no CVA tenderness Back/Spine/Pelvis: Back: no CVA tenderness Skin: General skin exam: no rashes or lesions noted Neuro: General: oriented to person and oriented to place Cranial nerves: Ye s CN's II-XII intact bilaterally and Yes Equal, round and reactive pupils present Cognition (Neuro): normal cognition Motor exam (neuro): 5/5 motor strength present throughout Extrem: General: Yes normal to inspection Psych: Appearance: grossly normal Speech and movement: Normal speech and movement present Affect: normal affect Attitude: cooperative Thought process: Normal thought process present Thought content: Normal thought content present Medications Administered Generic Name Dose Route Start Last Admin Trade Name Sancho PRN Reason Stop Dose Admin Sodium Chloride 1,000 mls @ 125 mls/hr 10/27/22 13:45 10/27/22 13:55 Ns IVCONT 125 mls/hr .Q8H RADHA Administration Discontinued Medications Generic Name Dose Route Start Last Admin Trade Name Freq PRN Reason Stop Dose Admin Diphenhydramine HCl 25 mg 10/27/22 14:05 10/27/22 14:14 Diphenhydramine Hcl 50 Mg/Ml Vial IVPUSH 10/27/22 14:06 25 mg ONCE ONE Administration Lorazepam 1 mg 10/27/22 14:05 10/27/22 14:15 Lorazepam 1 Mg Tablet PO 10/27/22 14:06 1 mg ONCE ONE Administration Morphine Sulfate 4 mg 10/27/22 13:40 10/27/22 13:48 Morphine Sulfate 4 Mg/Ml Cartridge IVPUSH 10/27/22 13:41 4 mg ONCE STA Administration Protocol Ondansetron HCl 4 mg 10/27/22 13:40 10/27/22 13:49 Ondansetron Hcl 4 Mg/2 Ml Vial IVPUSH 10/27/22 13:41 4 mg ONCE ONE Administration Medical Decision Making Medical Decision Making MDM Narrative: 8-year-old male with a history of COPD, tetralogy of Fallot with AICD, COPD, diabetes, developmental delay, GERD, alcohol use disorder-in remission, hypertension, hyperlipidemia who presents emergency department for evaluation of AICD shock that began at 09:30 hours after mild exercise followed by chest pain that is been constant since 09:30 hours. Patient's physical examination was unremarkable following tests were ordered: CBC, CMP, troponin, PT/INR, PTT. I used the AICD device to interrogate the patient's AICD and waiting for the report. 14 17: Patient's pain was treated with morphine 4 mg IV. Patient did have a local a histamine reaction to the morphine was given Benadryl 25 mg IV. Patient also became anxious and was given Ativan 1 mg orally. 1649: I did review the pacemaker interrogation report. The fast path summary revealed no episodes of V-tach VFib or discharge of the defibrillator. I did discuss this with the patient. Patient only got minimal relief with the above treatment. This time I do not think that his symptoms are secondary to cardiac disease, most likely has musculoskeletal pain. He was advised to take Tylenol for his pain. Was given printed and verbal instructions and discharged home. Differential Diagnosis Differential diagnosis includes was not limited to myocardial infarction, myocardial ischemia, arrhythmia, AICD discharge, phantom AICD discharge, anxiety Admission/Observation Consideration of admission/observation: Escalation of care including admission/observation considered Lab Data MDM Lab Attestation statement: I reviewed the patient's lab results. Patient's CBC revealed mild anemia with an H&H of 12 and 35.9-this is chronic. [place] [address]. First high sensitive troponin I was normal but detectable of 4.0, repeat is due at 14:30 hours. INR is elevated 1.5, PTT were normal. 10/27/22 11:26 10/27/22 11:30 Labs: Lab Results 10/27/22 10/27/22 10/27/22 Range/Units 11:26 11:29 11:30 WBC 5.6 (4.8-10.8) X10*3/uL RBC 4.17 L (4.60-5.80) X10*6/uL Hgb 12.1 L (14.0-18.0) g/dl Hct 35.9 L (42.0-52.0) % MCV 86.1 (80.0-98.0) fL MCH 29.0 (27.0-33.0) pg MCHC 33.7 (31.0-36.0) g/dl RDW 13.0 (11.0-16.0) % Plt Count 84 L (160-400) X10*3/uL MPV 10.4 (9.4-12.4) fL Immature Gran % (Auto) 0.5 H (0.0-0.4) % Neut % (Auto) 63.0 (45-73) % Lymph % (Auto) 21.9 (20-40) % [place] % (Auto) 9.0 (2-11) % Eos % (Auto) 4.5 H (0-4) % Baso % (Auto) 1.1 (0-2) % Lymph # (Auto) 1.2 (1.2-4.9) X10*3/uL [place] # (Auto) 0.5 (0.1-1.2) X10*3/uL Eos # (Auto) 0.3 (0.0-0.4) X10*3/uL Baso # (Auto) 0.1 (0.0-0.2) X10*3/uL Abs Immat Gran (auto) 0.03 (0.00-0.03) X10*3/uL Absolute Neuts (auto) 3.5 (2.0-8.3) x10*3/uL Absolute Nucleated RBC 0.000 (0.0-0.012) X10*3/uL Nucleated RBC % (auto) 0.0 (0.0-0.2) /100WBC PT 17.8 H (11.1-13.3) SEC INR 1.5 H (0.9-1.1) APTT 37.8 H (26.0-36.4) SEC Sodium 140 (135-145) mmol/L Potassium 4.0 (3.3-5.1) mmol/L Chloride 108 (96-108) mmol/L Carbon Dioxide 22 (22-29) mmol/L Anion Gap 14 (12-20) BUN 13 (9-16) mg/dL Creatinine 1.11 (0.5-1.4) mg/dL Estim Creat Clear Calc 88.1 Estimated GFR > 60 Random Glucose 131 H (60-115) mg/dL Calcium 8.2 L (8.4-10.2) mg/dL Troponin I High Sens (<3.5-35.0) ng/L 10/27/22 Range/Units 11:30 WBC (4.8-10.8) X10*3/uL RBC (4.60-5.80) X10*6/uL Hgb (14.0-18.0) g/dl Hct (42.0-52.0) % MCV (80.0-98.0) fL MCH (27.0-33.0) pg MCHC (31.0-36.0) g/dl RDW (11.0-16.0) % Plt Count (160-400) X10*3/uL MPV (9.4-12.4) fL Immature Gran % (Auto) (0.0-0.4) % Neut % (Auto) (45-73) % Lymph % (Auto) (20-40) % [place] % (Auto) (2-11) % Eos % (Auto) (0-4) % Baso % (Auto) (0-2) % Lymph # (Auto) (1.2-4.9) X10*3/uL [place] # (Auto) (0.1-1.2) X10*3/uL Eos # (Auto) (0.0-0.4) X10*3/uL Baso # (Auto) (0.0-0.2) X10*3/uL Abs Immat Gran (auto) (0.00-0.03) X10*3/uL Absolute Neuts (auto) (2.0-8.3) x10*3/uL Absolute Nucleated RBC (0.0-0.012) X10*3/uL Nucleated RBC % (auto) (0.0-0.2) /100WBC PT (11.1-13.3) SEC INR (0.9-1.1) APTT (26.0-36.4) SEC Sodium (135-145) mmol/L Potassium (3.3-5.1) mmol/L Chloride (96-108) mmol/L Carbon Dioxide (22-29) mmol/L Anion Gap (12-20) BUN (9-16) mg/dL Creatinine (0.5-1.4) mg/dL Estim Creat Clear Calc Estimated GFR Random Glucose (60-115) mg/dL Calcium (8.4-10.2) mg/dL Troponin I High Sens 4.0 (<3.5-35.0) ng/L Independent Interpretation I performed an independent interpretation of an: EKG Interpretation: My independent interpretation of the patient's 12 EKG done at 10:20 hours is as follows: Sinus rhythm with a rate of 66, prolonged WA interval of 214 milliseconds consistent with a first-degree AV block, prolonged QRS of 170 allen seconds, prolonged QTC of 492 milliseconds, patient has a right bundle-branch block which is chronic, there is no ST segment elevation or depression, no PACs no PVCs. This EKG is unchanged compared to his previous EKG External Record Review External record reviewed: Office record (Cardiology office records reviewed) Discharge Plan Discharge Clinical Impression: Chest pain Patient Disposition: Home, Self-Care Instructions: Chest Wall Pain (ED) Additional Instructions: Your blood work was unremarkable. Your automatic implanted cardiac defibrillator report did not reveal any episodes of ventricular tachycardia, ventricular fibrillation or discharge / shocks from the defibrillator your pain is most likely caused by musculoskeletal pain. Take Tylenol (acetaminophen) 500 mg pills, 2 pills every 6 hours as needed for pain or fever. Follow-up with your doctor in 2 days. Please return to the emergency department if your symptoms get worse or if you develop any symptoms that are concerning to you. Prescriptions: No Action isosorbide mononitrate 30 mg Tablet Extended Release 24 Hr 30 mg PO DAILY Qty: 0 0RF Protocol: Hold for SBP< HOLD for SBP < : 90 lisinopril 2.5 mg Tablet 2.5 mg PO DAILY Qty: 0 0RF Protocol: Hold for SBP< HOLD for SBP < : 90 sotalol 80 mg tablet 80 mg PO BID hydroxyzine pamoate 50 mg capsule 50 mg PO BID PRN (Reason: Anxiety / Nausea) acetaminophen 500 mg tablet 1,000 mg PO Q6H PRN (Reason: pain) tamsulosin 0.4 mg capsule 0.4 mg PO BEDTIME nitroglycerin 0.4 mg tablet, sublingual 0.4 mg sublingual Q5M PRN (Reason: Chest Pain) albuterol sulfate 90 mcg/actuation HFA aerosol inhaler 2 puff inhalation Q4H PRN (Reason: Shortness Of Breath) ezetimibe 10 mg Tablet 10 mg PO DAILY 7 Days Qty: 7 0RF trazodone 100 mg tablet 100 mg PO BEDTIME risperidone 1 mg tablet 1.5 mg PO BEDTIME melatonin 5 mg tablet 5 mg PO BEDTIME PRN (Reason: Insomnia) Xarelto 20 mg tablet 20 mg PO DAILY@1800 quetiapine 25 mg tablet 25 mg PO BEDTIME levothyroxine 75 mcg tablet 75 mcg PO DAILY@0600
[2022-10-27] MEDS: Morphine Sulfate 4 MG/ML CARTRIDGE IVPUSH (13:48)
[2022-10-27] MEDS: ondansetron HCL 4 MG/2 ML VIAL IVPUSH (13:49)
[2022-10-27] MEDS: 0.9 % Sodium Chloride 1,000 ML 125 ML IVCONT (13:55)
[2022-10-27] MEDS: diphenhydrAMINE HCL 50 MG/ML VIAL 25 MG IVPUSH (14:14)
[2022-10-27] MEDS: LORazepam 1 MG TABLET PO (14:15)
[2022-10-27 14:39] VITALS: BP 126/79; PULSE 70; RESP 13; TEMP 36.8; O2SAT 97
[2022-10-27 15:54] VITALS: BP 145/78; PULSE 70; RESP 15; TEMP 36.4; O2SAT 97
== END 2022-10-27 17:30 | disposition home or self-care (01) ==
PROVIDERS: Emergency Provider Emergency Medicine Emergency Medical Services; PCP Internal Medicine
DX: R07.89 Other chest pain (principal); R45.851 Suicidal ideations; I10 Essential (primary) hypertension; Z79.899 Other long term (current) drug therapy; Z95.810 Presence of automatic (implantable) cardiac defibrillator
CPT/HCPCS: 36415; 80048; 84484; 85025; 85610; 85730; 93005; 96374; 96375; 99284; 99285; J1200; J2270; J2405

== ENCOUNTER → 2022-10-27 10:16 | Outpatient (BNV) | payer OTHER, SELFPAY | PROVIDERS: Emergency Provider Emergency Medicine Emergency Medical Services; PCP Internal Medicine; Visit Provider Internal Medicine Cardiovascular Disease | DX: R07.9 Chest pain, unspecified (principal) | CPT/HCPCS: 93010 ==

== ENCOUNTER 2022-12-29 21:53 | Emergency (ER) | payer OTHER, SELFPAY ==
--- NOTE | ~2022-12-29 | CT_ITS ---
EXAMINATION: CT HEAD WITHOUT CONTRAST CLINICAL INFORMATION: Acute right-sided paresthesias. COMPARISON: Multiple prior CT head exam studies. Most recent September 08, 2022. TECHNIQUE: Contiguous axial imaging was performed from the skull base to vertex without intravenous administration of contrast. Coronal and sagittal reformatted images are performed at the CT scanner. [This CT examination was performed using dose optimization techniques as appropriate, variously including the following: *Automated exposure control *Adjustment of mA and/or kV according to patient size (this includes techniques or standardized protocols for targeted exams where dose is matched to indication/reason for exam; i.e. extremities or head) *Use of iterative reconstruction technique] DLP: 791 mGy-cm. FINDINGS: Redemonstration small focal hyperdensity in the left periventricular white matter. This is unchanged since CAT scan September 17, 2009. There is no evidence of acute intracranial hemorrhage or territorial infarction. No abnormal mass-effect or midline shift is seen. Warner to white matter differentiation is well preserved. No extra-axial fluid collections are identified. The ventricles are normal in size. Stable small scattered nonspecific foci of hypoattenuation in the periventricular white matter unchanged since prior studies. This is consistent with chronic small vessel ischemic changes. There is no osseous abnormality. Small retention cyst inferior left maxillary sinus. Mastoid air cells and middle ear cavities are normally aerated. CT/CT head/brain wo IV con IMPRESSION: No acute intracranial pathology.
--- NOTE | ~2022-12-29 | XR_ITS ---
EXAMINATION: XR CHEST CLINICAL INFORMATION: Acute chest pain. COMPARISON: Prior chest radiographs dated 08/20/2022; CTA chest dated 09/08/2022. TECHNIQUE: Frontal view of the chest was obtained. FINDINGS: There is stable cardiomegaly. AICD leads are unchanged in position, without lead fracture noted. The lungs show no infiltrate, effusion or pneumothorax. There is no acute osseous abnormality. XR/XR chest 1V IMPRESSION: 1. No active cardiopulmonary disease. 2. There is stable cardiomegaly.
[2022-12-29 22:01] VITALS: BP 140/76; PULSE 99; O2SAT 98; BMI 38.0
--- NOTE | 2022-12-29 22:01 | ECG_ITS ---
Test Reason : CP Blood Pressure : / mmHG Vent. Rate : 098 BPM Atrial Rate : 098 BPM P-R Int : 202 ms QRS Dur : 168 ms QT Int : 402 ms P-R-T Axes : 046 112 049 degrees QTc Int : 513 ms Poor data quality, interpretation may be adversely affected Normal sinus rhythm Right axis deviation Non-specific intra-ventricular conduction block Abnormal ECG When compared with ECG of 27-OCT-2022 10:20, Vent. rate has increased BY 32 BPM Non-specific intra-ventricular conduction block has replaced Right bundle branch block Referred By: Generic ED Physician Electronically Signed By:
[2022-12-29 22:10] VITALS: BP 138/79; PULSE 99; RESP 18; TEMP 36.6; O2SAT 96
[2022-12-29 22:21] LABS: Basophils Absolute Auto 0.1 X10*3/uL (0.0-0.2); Basophils Percent Auto 0.9 % (0-2); Hemoglobin 12.4 g/dl (14.0-18.0); Mean Platelet Volume 11.4 fL (9.4-12.4); PLT CLUMP 1; SCAN SMEAR FLAG 1
[2022-12-29 22:22] LABS: Eosinophils Absolute Auto 0.6 X10*3/uL (0.0-0.4); Eosinophils Percent Auto 6.3 % (0-4); Hematocrit 37.4 % (42.0-52.0); Imm Gran Abs Auto 0.12 X10*3/uL (0.00-0.03); Imm Gran Pct Auto 1.4 % (0.0-0.4); Lymphocytes Absolute Auto 1.7 X10*3/uL (1.2-4.9); Lymphocytes Percent Auto 19.1 % (20-40); Mean Corpuscular HGB Conc 33.2 g/dl (31.0-36.0); Mean Corpuscular Hemoglobin 29.8 pg (27.0-33.0); Mean Corpuscular Volume 89.9 fL (80.0-98.0); Monocytes Absolute Auto 0.8 X10*3/uL (0.1-1.2); Monocytes Percent Auto 9.4 % (2-11); Neutrophils Absolute Auto 5.6 x10*3/uL (2.0-8.3); Neutrophils Percent Auto 62.9 % (45-73); Red Blood Count 4.16 X10*6/uL (4.60-5.80); Red Cell Distribution Width 13.4 % (11.0-16.0)
[2022-12-29 22:23] LABS: Platelet Count 96 X10*3/uL (160-400); White Blood Count 8.9 X10*3/uL (4.8-10.8)
[2022-12-29 22:24] LABS: MANUAL DIFF FLAG NO
--- NOTE | 2022-12-29 22:24 | ED.CHESTPAIN ---
HPI - Chest Pain General Chief Complaint: Chest Pain Stated Complaint: chest pain Time Seen by Provider: 12/29/22 22:21 Source: patient and EMS Mode of arrival: EMS Limitations: no limitations History of Present Illness HPI narrative: 62-year-old male with cardiac history presents with left-sided chest pain. Chest pain started 90 minutes prior to arrival. Describes the pain as a 9/10 and pressure-like in nature. The pain radiates to the left arm. There is no clear relieving or exacerbating features. The pain started at rest. Patient denies any palpitations, lightheadedness, shortness of breath, cough, fevers or chills. Patient had COVID infection approximately 3 weeks ago. Related Data Home Medications Medication Instructions Recorded Confirmed acetaminophen 500 mg tablet 1,000 mg PO Q6H PRN pain 08/19/22 09/08/22 albuterol sulfate 90 mcg/actuation 2 puff inhalation Q4H PRN 08/19/22 09/08/22 aerosol inhaler Shortness Of Breath hydroxyzine pamoate 50 mg capsule 50 mg PO BID PRN Anxiety / Nausea 08/19/22 09/08/22 nitroglycerin 0.4 mg sublingual 0.4 mg sublingual Q5M PRN Chest 08/19/22 09/08/22 tablet Pain sotalol 80 mg tablet 80 mg PO BID 08/19/22 09/08/22 tamsulosin 0.4 mg capsule 0.4 mg PO BEDTIME 08/19/22 09/08/22 levothyroxine 75 mcg tablet 75 mcg PO DAILY@0600 09/08/22 09/08/22 melatonin 5 mg tablet 5 mg PO BEDTIME PRN Insomnia 09/08/22 09/08/22 quetiapine 25 mg tablet 25 mg PO BEDTIME 09/08/22 09/08/22 risperidone 1 mg tablet 1.5 mg PO BEDTIME 09/08/22 09/08/22 rivaroxaban 20 mg tablet (Xarelto) 20 mg PO DAILY@1800 09/08/22 09/08/22 trazodone 100 mg tablet 100 mg PO BEDTIME 09/08/22 09/08/22 Previous Rx's Medication Instructions Recorded isosorbide mononitrate 30 mg 30 mg PO DAILY #0 tabs 09/22/21 tablet,extended release 24 hr lisinopril 2.5 mg tablet 2.5 mg PO DAILY #0 tabs 09/22/21 ezetimibe 10 mg tablet 10 mg PO DAILY 7 days #7 tabs 08/24/22 Allergies Allergy/AdvReac Type Severity Reaction Status Date / Time aripiprazole [From Abilify] Allergy Severe Rash Verified 09/08/22 12:37 peas Allergy Severe HIVES Verified 09/08/22 12:37 atorvastatin [From Lipitor] Allergy Intermediate Hives Verified 09/08/22 12:37 bee pollen [bee stings] AdvReac Severe Anaphylaxis Verified 09/08/22 12:37 Review of Systems Review of Systems: CONSTITUTIONAL: Denies weight loss, fever and chills. HEENT: Denies changes in vision and hearing. RESPIRATORY: Denies SOB and cough. CV: Denies palpitations + CP. GI: Denies abdominal pain, nausea, vomiting and diarrhea. : Denies dysuria and urinary frequency. MSK: Denies myalgia and joint pain. SKIN: Denies rash and pruritus. NEUROLOGICAL: Denies headache and syncope. PSYCHIATRIC: Denies recent changes in mood. Denies anxiety and depression. All other ROS are negative unless in HPI PMFSH Past Medical History Medical History Somatoform disorder Depression with suicidal ideation Sleep apnea Seizure RBBB Cardiac defibrillator in place Artificial cardiac pacemaker Hyperthyroidism Hyperlipidemia History of ETOH abuse Hypertension GERD (gastroesophageal reflux disease) Diabetes Developmental delay, mild Depression COPD (chronic obstructive pulmonary disease) Asthma Anxiety Surgical History History of cardiac cath Social History Social History Household Members: Other Household Members Other:: 2 roommates Housing: Apartment Housing Other:: Sober House Do you presently have visiting nurse or other home services: No Alcohol intake: former Patient Tobacco Use Status: Never used Tobacco Tobacco use type: Cigarette Smoked in Last 30 Days: No Second Hand Smoke Exposure: No Use of substances other than those prescribed or required for medical reasons: No Substance Use Type: Former Substance User, Prescription Drugs and Caffiene Advance Directives: No Advance Directives Information Provided: Yes service: No Current occupational status: disabled Sexual orientation: Decline to Answer Physical Exam Vital Signs: Vital Signs: Last Vital Signs Temp 97.8 F 12/29/22 22:10 Pulse 98 12/29/22 23:20 Resp 14 12/29/22 23:46 BP 110/63 12/29/22 23:36 Pulse Ox 96 12/29/22 23:20 O2 Del Method Room Air 12/29/22 23:20 BMI result Body Mass Index 38.0 GEN: Well developed, no acute distress, alert, oriented HEENT: Normocephalic, atraumatic, normal external ears, nose appears normal, no oropharyngeal edema or exudates Eyes: Normal to appearance Neck: Supple, no lymphadenopathy Respiratory: Talks in complete sentences, no respiratory distress, clear to auscultation bilaterally Cardiovascular: Regular rate and rhythm, no murmurs rubs or gallops Abdomen: Soft, nontender, nondistended, no guarding, no rebound Back: No CVA tenderness Extremities: No clubbing cyanosis or edema Neurologic: No focal neurologic deficits, cranial nerves 2-12 intact, strength is 5/5 bilaterally Skin: No rash Course Course Course Narrative: Is 12:30 a.m.. The workup is complete. Cardiac enzymes x2 are negative. Patient has an extensive history of chronic chest pain that does not appear to be cardiac in nature. His EKG is nonischemic. I will discharge the patient at this time to follow-up with his primary care provider. I discussed all results with the patient. Understands the reasoning for discharge at this time. Medications Administered Discontinued Medications Generic Name Dose Route Start Last Admin Trade Name Freq PRN Reason Stop Dose Admin Sodium Chloride 3,498 mls @ 3,498 mls/hr 12/29/22 23:22 12/29/22 23:37 Ns 30 ml/kg infuse over 1 hr (3498 ml) 12/30/22 00:21 3,498 mls/hr IV Administration .Q1H STA Morphine Sulfate 2 mg 12/29/22 23:40 12/29/22 23:46 Morphine Sulfate 2 Mg/Ml Cartridge IVPUSH 12/29/22 23:41 2 mg ONCE ONE Administration Protocol Nitroglycerin 0.4 mg 12/29/22 22:45 12/29/22 23:20 Nitroglycerin 0.4 Mg Tab.Subl SUBLINGUAL 12/29/22 22:46 0.4 mg ONCE ONE Administration Ondansetron HCl 4 mg 12/29/22 22:45 12/29/22 23:20 Ondansetron Hcl 4 Mg/2 Ml Vial IVPUSH 12/29/22 22:46 4 mg ONCE ONE Administration Medical Decision Making Medical Decision Making [facility] Narrative: A 62-year-old male with history of cardiac issues, implantable defibrillator and pacemaker presents with chest pain. Examination was benign. EKG shows right bundle-branch block without acute ST elevations or depressions. This is similar to previous imaging studies. Patient reportedly received nitroglycerin prior to arrival without significant improvement in his symptoms. His differential diagnosis includes acute coronary syndrome, angina, atypical chest pain, pneumonia, bronchitis, pleurisy, doubt dissection. Will order chest x-ray to rule out widened mediastinum or apical cap or other acute cardiopulmonary disease. Patient also reports pain/numbness in left leg and hand will order CT scan. Doubt TIA. Examination revealed no focal neurologic deficits including no evidence of paresthesias. Patient may warrant hospitalization. Considered 2 hour troponin. Will review medical records to assess for previous cardiac workup. Differential Diagnosis Differential Diagnoses: The differential diagnosis associated with the presentation includes (See above) Admission/Observation Consideration of admission/observation: Escalation of care including admission/observation considered Lab Data [facility] Lab Attestation statement: I reviewed the patient's lab results. 12/29/22 22:13 12/29/22 22:13 Labs: Lab Results 12/29/22 12/30/22 Range/Units 22:13 00:05 WBC 8.9 (4.8-10.8) X10*3/uL RBC 4.16 L (4.60-5.80) X10*6/uL Hgb 12.4 L (14.0-18.0) g/dl Hct 37.4 L (42.0-52.0) % MCV 89.9 (80.0-98.0) fL MCH 29.8 (27.0-33.0) pg MCHC 33.2 (31.0-36.0) g/dl RDW 13.4 (11.0-16.0) % Plt Count 96 L (160-400) X10*3/uL MPV 11.4 (9.4-12.4) fL Immature Gran % (Auto) 1.4 H (0.0-0.4) % Neut % (Auto) 62.9 (45-73) % Lymph % (Auto) 19.1 L (20-40) % Faulkner % (Auto) 9.4 (2-11) % Eos % (Auto) 6.3 H (0-4) % Baso % (Auto) 0.9 (0-2) % Lymph # (Auto) 1.7 (1.2-4.9) X10*3/uL Faulkner # (Auto) 0.8 (0.1-1.2) X10*3/uL Eos # (Auto) 0.6 H (0.0-0.4) X10*3/uL Baso # (Auto) 0.1 (0.0-0.2) X10*3/uL Abs Immat Gran (auto) 0.12 H (0.00-0.03) X10*3/uL Absolute Neuts (auto) 5.6 (2.0-8.3) x10*3/uL Absolute Nucleated RBC 0.000 (0.0-0.012) X10*3/uL Nucleated RBC % (auto) 0.0 (0.0-0.2) /100WBC Sodium 139 (135-145) mmol/L Potassium 4.1 (3.3-5.1) mmol/L Chloride 105 (96-108) mmol/L Carbon Dioxide 22 (22-29) mmol/L Anion Gap 16 (12-20) BUN 19 H (9-16) mg/dL Creatinine 1.25 (0.5-1.4) mg/dL Estim Creat Clear Calc 79.1 Estimated GFR 59 Random Glucose 277 H (60-115) mg/dL Calcium 7.9 L (8.4-10.2) mg/dL Troponin I High Sens < 2.7 < 2.7 (<3.5-35.0) ng/L Independent Interpretation I performed an independent interpretation of an: EKG (Normal sinus rhythm heart rate 98, right bundle-branch block, left anterior fascicular block, no acute ST elevations depressions, PVC present. Findings similar to previous EKG), Plain X-Ray (Chest: No acute cardiopulmonary disease) and CT Scan (Head: No acute disease process) Radiology Impression Discussion of test interpretation with radiology: I have reviewed the radiologist's reading. Radiologist Impression: Impression: No acute intracranial pathology. Independent Historian Clinical information obtained from an independent historian. History obtained from or confirmed by: EMS External Record Review External record reviewed: Inpatient record Cardiology consultation from 09/23/2021. For review of the records, patient had a history prior tetralogy of Fallot repair. Last echocardiogram that we have noted of was October of 2021 from [facility] showing LV systolic dysfunction as well as a dilated right ventricle. He also had a moderately dilated aortic root of approximately 5 cm. There is reported of mild pulmonary regurgitation. Patient has had multiple hospitalizations due to chest pain syndrome which has been labeled as noncardiac. Echocardiogram performed a [facility] on 08/23/2022 demonstrated the following conclusions: Difficult to assess LVEF for wall motion due to poor image quality. LVEF probably greater than 55%. Moderately increased right ventricular cavity size. Bubble study very poor quality due to infiltrated IV. No obvious valvular pathology seen on this study. There is moderate dilation of the sinus of Valsalva measuring 4.85 cm and mild dilation of the ascending or aorta at 3.9 cm. Prescription Management I considered prescription management with: Pain Medication Chronic Conditions Patient?s care impacted by: Other (Cardiac history) Discharge Plan Discharge Clinical Impression: Chest pain Patient Disposition: Home, Self-Care Instructions: Chest Pain (DC) Prescriptions: No Action isosorbide mononitrate 30 mg Tablet Extended Release 24 Hr 30 mg PO DAILY Qty: 0 0RF Protocol: Hold for SBP< HOLD for SBP < : 90 lisinopril 2.5 mg Tablet 2.5 mg PO DAILY Qty: 0 0RF Protocol: Hold for SBP< HOLD for SBP < : 90 sotalol 80 mg tablet 80 mg PO BID hydroxyzine pamoate 50 mg capsule 50 mg PO BID PRN (Reason: Anxiety / Nausea) acetaminophen 500 mg tablet 1,000 mg PO Q6H PRN (Reason: pain) tamsulosin 0.4 mg capsule 0.4 mg PO BEDTIME nitroglycerin 0.4 mg tablet, sublingual 0.4 mg sublingual Q5M PRN (Reason: Chest Pain) albuterol sulfate 90 mcg/actuation HFA aerosol inhaler 2 puff inhalation Q4H PRN (Reason: Shortness Of Breath) ezetimibe 10 mg Tablet 10 mg PO DAILY 7 Days Qty: 7 0RF trazodone 100 mg tablet 100 mg PO BEDTIME risperidone 1 mg tablet 1.5 mg PO BEDTIME melatonin 5 mg tablet 5 mg PO BEDTIME PRN (Reason: Insomnia) Xarelto 20 mg tablet 20 mg PO DAILY@1800 quetiapine 25 mg tablet 25 mg PO BEDTIME levothyroxine 75 mcg tablet 75 mcg PO DAILY@0600 Referrals: Tico Nix MD [Physician] - 3 days
[2022-12-29 22:32] LABS: Anion Gap 16 (12-20); Blood Urea Nitrogen 19 mg/dL (9-16); Calcium 7.9 mg/dL (8.4-10.2); Carbon Dioxide 22 mmol/L (22-29); Chloride 105 mmol/L (96-108); Creatinine Clr Calc Pharmacy 79.1; Estimated Glomerular Filt Rate 59; Glucose Random 277 mg/dL (60-115); Potassium 4.1 mmol/L (3.3-5.1); Sodium 139 mmol/L (135-145)
[2022-12-29 22:39] LABS: Troponin-I High Sensitivity < 2.7 ng/L (<3.5-35.0)
[2022-12-29 23:20] VITALS: BP 143/85; PULSE 98; RESP 17; O2SAT 96
[2022-12-29] MEDS: Nitroglycerin 0.4 MG TAB.SUBL SUBLINGUAL (23:20)
[2022-12-29] MEDS: ondansetron HCL 4 MG/2 ML VIAL IVPUSH (23:20)
[2022-12-29 23:36] VITALS: BP 110/63
[2022-12-29 23:46] VITALS: RESP 14
[2022-12-29] MEDS: Morphine Sulfate 2 MG/ML CARTRIDGE IVPUSH (23:46)
[2022-12-30 00:31] LABS: Troponin-I High Sensitivity < 2.7 ng/L (<3.5-35.0)
[2022-12-30 01:25] VITALS: BP 136/81; PULSE 94; RESP 15; TEMP 36.4; O2SAT 96
[2022-12-30] MEDS: oxyCODONE HCl Immed Release 5 MG TABLET PO (01:27)
[2022-12-30 03:01] VITALS: BP 146/83; PULSE 96; RESP 16; TEMP 36.8; O2SAT 98
--- NOTE | 2022-12-30 03:02 | MHC.EDTECH ---
THIS PCT JUST ASSUMED CARE OF PT ,VITALS SIGN TAKEN ,PT USE THE BATHROOM ,BACK TO BED ,DIET ESTELITA SULAIMAN GIVEN ,PT HAS NO APPARENT DISTRESS ,WAITING FOR RIDE HOME .
--- NOTE | 2022-12-30 03:31 | PC.NURSE ---
secertary booked chair van to pt residence. They will not be available for pickup until the am
--- NOTE | 2022-12-30 05:55 | PC.NURSE ---
called facility to let them know he will be coming back to them in the am by ambulance
[2022-12-30 06:21] VITALS: BP 153/89; PULSE 92; RESP 16; TEMP 36.3; O2SAT 98
== END 2022-12-30 08:49 | disposition home or self-care (01) ==
PROVIDERS: Emergency Provider Emergency Medicine
DX: R07.9 Chest pain, unspecified (principal); I10 Essential (primary) hypertension; E78.5 Hyperlipidemia, unspecified; J44.9 Chronic obstructive pulmonary disease, unspecified; I45.10 Unspecified right bundle-branch block; Z95.810 Presence of automatic (implantable) cardiac defibrillator; Z79.899 Other long term (current) drug therapy
CPT/HCPCS: 36415; 70450; 71045; 80048; 84484; 85025; 93005; 96361; 96374; 96375; 99285; J2270; J2405

== ENCOUNTER 2023-01-01 09:31 | Emergency (ER) | payer OTHER, SELFPAY ==
--- NOTE | ~2023-01-01 | XR_ITS ---
EXAMINATION: XR WRIST, RIGHT CLINICAL INFORMATION: Pain COMPARISON: None available. TECHNIQUE: PA, lateral, and oblique views of the right wrist. FINDINGS: The bones and soft tissues are normal. No fracture. Alignment is anatomic with normal joint spaces. No erosions or abnormal soft tissue calcifications. XR/XR wrist RT min 3V IMPRESSION: Normal right wrist.
[2023-01-01 09:44] VITALS: BP 126/88; BP 130/74; PULSE 80; PULSE 85; RESP 16; TEMP 36.8; O2SAT 96; O2SAT 98; BMI 38.4
--- NOTE | 2023-01-01 09:54 | ED_ITS ---
HPI - Extremity Problem General Chief complaint: Extremity Problem Stated complaint: R ARM PAIN/SWELLING,NO INJURY FROM [facility] PER EMS Time Seen by Provider: 01/01/23 09:46 Source: patient Mode of arrival: ambulatory Limitations: no limitations History of Present Illness HPI Narrative: patient comes to the emergency room complaining of right wrist pain. Patient states that he started experiencing pain in the right wrist approximately 10 hours ago. Patient states the pain is constant, and his wrist is very tender. Patient denies any swelling, erythema, no fever chills. Patient states that approximately 7 years ago he was diagnosed with gout, and the pain is similar. Related Data Home Medications Medication Instructions Recorded Confirmed acetaminophen 500 mg tablet 1,000 mg PO Q6H PRN pain 08/19/22 09/08/22 albuterol sulfate 90 mcg/actuation 2 puff inhalation Q4H PRN 08/19/22 09/08/22 aerosol inhaler Shortness Of Breath hydroxyzine pamoate 50 mg capsule 50 mg PO BID PRN Anxiety / Nausea 08/19/22 09/08/22 nitroglycerin 0.4 mg sublingual 0.4 mg sublingual Q5M PRN Chest 08/19/22 09/08/22 tablet Pain sotalol 80 mg tablet 80 mg PO BID 08/19/22 09/08/22 tamsulosin 0.4 mg capsule 0.4 mg PO BEDTIME 08/19/22 09/08/22 levothyroxine 75 mcg tablet 75 mcg PO DAILY@0600 09/08/22 09/08/22 melatonin 5 mg tablet 5 mg PO BEDTIME PRN Insomnia 09/08/22 09/08/22 quetiapine 25 mg tablet 25 mg PO BEDTIME 09/08/22 09/08/22 risperidone 1 mg tablet 1.5 mg PO BEDTIME 09/08/22 09/08/22 rivaroxaban 20 mg tablet (Xarelto) 20 mg PO DAILY@1800 09/08/22 09/08/22 trazodone 100 mg tablet 100 mg PO BEDTIME 09/08/22 09/08/22 Previous Rx's Medication Instructions Recorded isosorbide mononitrate 30 mg 30 mg PO DAILY #0 tabs 09/22/21 tablet,extended release 24 hr lisinopril 2.5 mg tablet 2.5 mg PO DAILY #0 tabs 09/22/21 ezetimibe 10 mg tablet 10 mg PO DAILY 7 days #7 tabs 08/24/22 oxycodone 5 mg tablet 5 mg PO BID PRN pain #4 tabs 01/01/23 prednisone 20 mg tablet 20 mg PO DAILY #5 tabs 01/01/23 Allergies Allergy/AdvReac Type Severity Reaction Status Date / Time aripiprazole [From Abilify] Allergy Severe Rash Verified 09/08/22 12:37 peas Allergy Severe HIVES Verified 09/08/22 12:37 atorvastatin [From Lipitor] Allergy Intermediate Hives Verified 09/08/22 12:37 bee pollen [bee stings] AdvReac Severe Anaphylaxis Verified 09/08/22 12:37 Review of Systems 2 Review of Systems: ? Constitutional : No Weight loss, No Fever, No Chills, No Night Sweats, No Fatigue, No Malaise ENT/Mouth : No Hearing loss, No Ear Pain, No Nasal Congestion, No Sinus Pain, No Hoarseness, No sore throat, No Rhinorrhea, No Swallowing Difficulty Eyes: No Eye Pain, No Swelling, No Redness, No Foreign Body, No Discharge, No Vision Changes Cardiovascular : No Chest Pain, No SOB, No Dyspnea on Exertion, No Orthopnea, No Edema, No Palpitations Respiratory : No Cough, No Sputum, No Wheezing, No Smoke Exposure, No Dyspnea Gastrointestinal : No Nausea, No Vomiting, No Diarrhea, No Constipation, No abdominal Pain, No Hematochezia, No Melena Genitourinary : no irregular bleeding, No Dysuria, No Urinary Frequency, No Hematuria, No Urinary Incontinence, No Urgency, No Flank Pain, No Urinary Flow Changes, No Hesitancy Musculoskeletal : complaining of right wrist pain, No Myalgias, No Joint Swelling Skin : No Skin Lesions, No rash Neuro : No Weakness, No Numbness, No Paresthesias, No Loss of Consciousness, No Dizziness, No Headache Psych : No Anxiety/Panic, No Depression, No SI/HI/AH/VH, No Social Issues, Heme/Lymph: No Bruising, No Bleeding,No Lymphadenopathy Endocrine : No Polyuria, No Polydipsia, No Temperature Intolerance PMFSH Past Medical History Medical History Somatoform disorder Depression with suicidal ideation Sleep apnea Seizure RBBB Cardiac defibrillator in place Artificial cardiac pacemaker Hyperthyroidism Hyperlipidemia History of ETOH abuse Hypertension GERD (gastroesophageal reflux disease) Diabetes Developmental delay, mild Depression COPD (chronic obstructive pulmonary disease) Asthma Anxiety Surgical History History of cardiac cath Social History Social History Household Members: Other Household Members Other:: 2 roommates Housing: Apartment Housing Other:: Sober House Do you presently have visiting nurse or other home services: No Alcohol intake: former Patient Tobacco Use Status: Never used Tobacco Tobacco use type: Cigarette Smoked in Last 30 Days: No Second Hand Smoke Exposure: No Use of substances other than those prescribed or required for medical reasons: No Substance Use Type: Former Substance User, Prescription Drugs and Caffiene Advance Directives: Yes Advance Directives Information Provided: No Advance Directives on File: No service: No Current occupational status: disabled Sexual orientation: Decline to Answer Physical Exam 2 Vital Signs: Vital Signs: Last Vital Signs Temp 97.4 F 01/01/23 10:32 Pulse 84 01/01/23 10:32 Resp 17 01/01/23 10:32 BP 130/68 01/01/23 10:32 Pulse Ox 97 01/01/23 10:32 O2 Del Method Room Air 01/01/23 10:32 BMI result Body Mass Index 38.4 Const: Other: ?Appearance: Alert.? Oriented X3.? No acute distress.?? Eyes: Pupils equal, round and reactive to light.? ENT: Pharynx normal.? Neck: Normal inspection.? Neck supple. No lymph nodes noted. No crepitus CVS: Normal heart rate and rhythm.? Pulses normal. Normal S1 and S2 Respiratory: No respiratory distress.? Breath sounds normal. No Wheezing. No rales? Abdomen: Soft and nontender. No rigidity. No distention.? Skin: Skin warm and dry.? Normal skin color.? Normal skin turgor.? Extremities: No lower extremity edema. No Lacerations. No Rash, right wrist slightly more swollen than the left, no erythema.? Patient states the whole wrist is exquisitely tender with any movement Neuro: Oriented X 3.? No motor deficit.? No sensory deficit. Moving all extremities. No slurred speech. CN 2 through 12 grossly intact Psych: calm, cooperative, normal affect up Course Course Course Narrative: - all of patient's labs pending - patient given IM morphine, patient cannot take NSAIDs, currently on Xarelto. Patient tried Tylenol without any pain relief Medications Administered Discontinued Medications Generic Name Dose Route Start Last Admin Trade Name Sancho PRN Reason Stop Dose Admin Morphine Sulfate 2 mg 01/01/23 09:49 01/01/23 10:49 Morphine Sulfate 2 Mg/Ml Cartridge IM 01/01/23 09:50 2 mg ONCE ONE Administration Protocol Medical Decision Making Medical Decision Making [facility] Narrative: - interpretation of EKG: A fascicular block, heart rate 83, no EKG changes when compared to EKG of December 21, QTC 515, chronic - interpretation of labs, normal white blood cell count, chemistry at baseline, uric acid slightly bumped, 8.7. - Interpretation of x-ray: No fracture, no dislocation, normal alignment. - I discussed the physical exam and labs and imaging with the patient, patient likely has gout versus pseudogout. Patient given Percocet, patient is on Xarelto. - there is no redness, normal white blood cell count, cellulitis unlikely. Septic joint is not suspect Differential Diagnosis Differential Diagnoses: The differential diagnosis associated with the presentation includes ( Dislocation, fracture, contusion, gout, pseudogout, cellulitis) Lab Data [facility] Lab Attestation statement: I reviewed the patient's lab results. 01/01/23 10:12 01/01/23 10:12 Labs: Lab Results 01/01/23 Range/Units 10:12 WBC 10.0 (4.8-10.8) X10*3/uL RBC 4.44 L (4.60-5.80) X10*6/uL Hgb 13.2 L (14.0-18.0) g/dl Hct 39.3 L (42.0-52.0) % MCV 88.5 (80.0-98.0) fL MCH 29.7 (27.0-33.0) pg MCHC 33.6 (31.0-36.0) g/dl RDW 13.4 (11.0-16.0) % Plt Count 97 L (160-400) X10*3/uL MPV 10.0 (9.4-12.4) fL Immature Gran % (Auto) 1.0 H (0.0-0.4) % Neut % (Auto) 81.0 H (45-73) % Lymph % (Auto) 7.9 L (20-40) % [place] % (Auto) 7.9 (2-11) % Eos % (Auto) 1.7 (0-4) % Baso % (Auto) 0.5 (0-2) % Lymph # (Auto) 0.8 L (1.2-4.9) X10*3/uL [place] # (Auto) 0.8 (0.1-1.2) X10*3/uL Eos # (Auto) 0.2 (0.0-0.4) X10*3/uL Baso # (Auto) 0.1 (0.0-0.2) X10*3/uL Abs Immat Gran (auto) 0.10 H (0.00-0.03) X10*3/uL Absolute Neuts (auto) 8.1 (2.0-8.3) x10*3/uL Absolute Nucleated RBC 0.000 (0.0-0.012) X10*3/uL Nucleated RBC % (auto) 0.0 (0.0-0.2) /100WBC Sodium 140 (135-145) mmol/L Potassium 4.2 (3.3-5.1) mmol/L Chloride 104 (96-108) mmol/L Carbon Dioxide 26 (22-29) mmol/L Anion Gap 14 (12-20) BUN 18 H (9-16) mg/dL Creatinine 1.11 (0.5-1.4) mg/dL Estim Creat Clear Calc 89.6 Estimated GFR > 60 Random Glucose 244 H (60-115) mg/dL Uric Acid 8.7 H (3.4-7.0) mg/dL Calcium 8.9 D (8.4-10.2) mg/dL Total Bilirubin 0.8 (0.0-1.0) mg/dL Direct Bilirubin 0.3 (0.0-0.5) mg/dL AST 13 (5-37) U/L ALT 13 (0-40) U/L Alkaline Phosphatase 70 (39-117) U/L Total Protein 6.8 (6.5-8.0) g/dL Albumin 3.8 (3.5-5.0) g/dL Discharge Plan Discharge Clinical Impression: Acute gout of right wrist Patient Disposition: Home, Self-Care Instructions: Gout (ED) Additional Instructions: Please follow-up with your primary care physician tomorrow. If you have any worsening or new symptoms, please return to the emergency room or call 911 Prescriptions: New prednisone 20 mg tablet 20 mg PO DAILY Qty: 5 0RF oxycodone 5 mg tablet 5 mg PO BID PRN (Reason: pain) Qty: 4 0RF Rx Instructions: Partial Fill upon patient request. No Action isosorbide mononitrate 30 mg Tablet Extended Release 24 Hr 30 mg PO DAILY Qty: 0 0RF Protocol: Hold for SBP< HOLD for SBP < : 90 lisinopril 2.5 mg Tablet 2.5 mg PO DAILY Qty: 0 0RF Protocol: Hold for SBP< HOLD for SBP < : 90 sotalol 80 mg tablet 80 mg PO BID hydroxyzine pamoate 50 mg capsule 50 mg PO BID PRN (Reason: Anxiety / Nausea) acetaminophen 500 mg tablet 1,000 mg PO Q6H PRN (Reason: pain) tamsulosin 0.4 mg capsule 0.4 mg PO BEDTIME nitroglycerin 0.4 mg tablet, sublingual 0.4 mg sublingual Q5M PRN (Reason: Chest Pain) albuterol sulfate 90 mcg/actuation HFA aerosol inhaler 2 puff inhalation Q4H PRN (Reason: Shortness Of Breath) ezetimibe 10 mg Tablet 10 mg PO DAILY 7 Days Qty: 7 0RF trazodone 100 mg tablet 100 mg PO BEDTIME risperidone 1 mg tablet 1.5 mg PO BEDTIME melatonin 5 mg tablet 5 mg PO BEDTIME PRN (Reason: Insomnia) Xarelto 20 mg tablet 20 mg PO DAILY@1800 quetiapine 25 mg tablet 25 mg PO BEDTIME levothyroxine 75 mcg tablet 75 mcg PO DAILY@0600
[2023-01-01 10:17] LABS: MANUAL DIFF FLAG NO
[2023-01-01 10:18] LABS: Basophils Absolute Auto 0.1 X10*3/uL (0.0-0.2); Basophils Percent Auto 0.5 % (0-2); Eosinophils Absolute Auto 0.2 X10*3/uL (0.0-0.4); Eosinophils Percent Auto 1.7 % (0-4); Hematocrit 39.3 % (42.0-52.0); Hemoglobin 13.2 g/dl (14.0-18.0); Lymphocytes Absolute Auto 0.8 X10*3/uL (1.2-4.9); Lymphocytes Percent Auto 7.9 % (20-40); Mean Corpuscular HGB Conc 33.6 g/dl (31.0-36.0); Mean Corpuscular Hemoglobin 29.7 pg (27.0-33.0); Mean Corpuscular Volume 88.5 fL (80.0-98.0); Monocytes Absolute Auto 0.8 X10*3/uL (0.1-1.2); Monocytes Percent Auto 7.9 % (2-11); Neutrophils Absolute Auto 8.1 x10*3/uL (2.0-8.3); Red Blood Count 4.44 X10*6/uL (4.60-5.80); Red Cell Distribution Width 13.4 % (11.0-16.0)
[2023-01-01 10:19] LABS: Platelet Count 97 X10*3/uL (160-400)
[2023-01-01 10:32] VITALS: BP 130/68; PULSE 84; RESP 17; TEMP 36.3; O2SAT 97
[2023-01-01 10:34] LABS: Alanine Aminotransferase 13 U/L (0-40); Albumin Level 3.8 g/dL (3.5-5.0); Alkaline Phosphatase 70 U/L (39-117); Anion Gap 14 (12-20); Aspartate Amino Transferase 13 U/L (5-37); Bilirubin Direct 0.3 mg/dL (0.0-0.5); Bilirubin Total 0.8 mg/dL (0.0-1.0); Blood Urea Nitrogen 18 mg/dL (9-16); Calcium 8.9 mg/dL (8.4-10.2); Carbon Dioxide 26 mmol/L (22-29); Chloride 104 mmol/L (96-108); Creatinine Clr Calc Pharmacy 89.6; Estimated Glomerular Filt Rate > 60; Glucose Random 244 mg/dL (60-115); Potassium 4.2 mmol/L (3.3-5.1); Sodium 140 mmol/L (135-145); Total Protein 6.8 g/dL (6.5-8.0); Uric Acid 8.7 mg/dL (3.4-7.0)
[2023-01-01] MEDS: Morphine Sulfate 2 MG/ML CARTRIDGE IM (10:49)
--- NOTE | 2023-01-01 11:17 | PC.NURSE ---
PT REQUESTED/GIVEN DIET ESTELITA SULAIMAN.
--- NOTE | 2023-01-01 11:23 | ECG_ITS ---
Test Reason : CHEST TIGHTNESS Blood Pressure : / mmHG Vent. Rate : 083 BPM Atrial Rate : 083 BPM P-R Int : 216 ms QRS Dur : 184 ms QT Int : 440 ms P-R-T Axes : 072 112 070 degrees QTc Int : 517 ms Sinus rhythm with 1st degree A-V block Right bundle branch block Left posterior fascicular block Bifascicular block Abnormal ECG When compared with ECG of 29-DEC-2022 22:18, Premature atrial complexes are no longer Present Referred By: Maty Núñez Electronically Signed By:CHET BAHENA
--- NOTE | 2023-01-01 11:45 | PHA.MEDREC ---
Pharmacy Consult ? Medication Reconciliation Pharmacy has completed the medication reconciliation. used list from [facility] in [place].
[2023-01-01] MEDS: oxyCODONE HCl Immed Release 5 MG TABLET PO (12:13)
== END 2023-01-01 12:19 | disposition home or self-care (01) ==
PROVIDERS: Emergency Provider Emergency Medicine; PCP Internal Medicine
DX: M10.031 Idiopathic gout, right wrist (principal); R07.89 Other chest pain; I44.0 Atrioventricular block, first degree; Z79.899 Other long term (current) drug therapy
CPT/HCPCS: 36415; 73110; 80048; 80076; 84550; 85025; 93005; 96372; 99284; 99285; J2270

== ENCOUNTER 2023-01-13 18:32 | Emergency (ER) | payer OTHER, SELFPAY ==
[2023-01-13 18:41] VITALS: BP 160/101; PULSE 70; O2SAT 97
[2023-01-13 18:43] VITALS: BP 156/77; PULSE 76; RESP 19; TEMP 36.6; O2SAT 98; BMI 38.7
--- NOTE | 2023-01-13 18:51 | ED.CHESTPAIN ---
HPI - Chest Pain General Chief Complaint: Chest Pain Stated Complaint: Pt was out walking and had chest pains dizziness Time Seen by Provider: 01/13/23 18:49 History of Present Illness HPI narrative: 62 yrs old male with a history of COPD, tetralogy of Fallot with AICD, COPD, diabetes, developmental delay, GERD, alcohol use disorder-in remission, hypertension, hyperlipidemia who presents emergency department for evaluation of AICD shock foot of bed chest pain just prior to arrival patient has been to our ER multiple times for similar reasons with interrogation negative or shocks likely opiate dependence/musculoskeletal pain likely patient has phantom shock/psychological pain Related Data Home Medications Medication Instructions Recorded Confirmed albuterol sulfate 90 mcg/actuation 2 puff inhalation Q4H PRN 08/19/22 01/01/23 aerosol inhaler Shortness Of Breath hydroxyzine pamoate 50 mg capsule 50 mg PO BID Anxiety / Nausea 08/19/22 01/01/23 nitroglycerin 0.4 mg sublingual 0.4 mg sublingual Q5M PRN Chest 08/19/22 01/01/23 tablet Pain sotalol 80 mg tablet 80 mg PO BID 08/19/22 01/01/23 tamsulosin 0.4 mg capsule 0.4 mg PO BEDTIME 08/19/22 01/01/23 levothyroxine 75 mcg tablet 75 mcg PO DAILY@0600 09/08/22 01/01/23 risperidone 1 mg tablet 1.5 mg PO BEDTIME 09/08/22 01/01/23 rivaroxaban 20 mg tablet (Xarelto) 20 mg PO DAILY@1800 09/08/22 01/01/23 acetaminophen 325 mg tablet 650 mg PO Q4H PRN Fever Or Pain 01/01/23 01/01/23 aluminum-mag hydroxide-simethicone 10 ml PO Q4H PRN Constipation 01/01/23 01/01/23 400 mg-400 mg-40 mg/5 mL oral susp (Mylanta Maximum Strength) aspirin 81 mg tablet,delayed 81 mg PO DAILY 01/01/23 01/01/23 release bisacodyl 5 mg tablet,delayed 10 mg PO BEDTIME PRN Constipation 01/01/23 01/01/23 release calcium carbonate 300 mg (750 mg) 300 mg PO Q4H PRN Dyspepsia 01/01/23 01/01/23 chewable tablet (Tums) cyclobenzaprine 5 mg tablet 5 mg PO TID PRN muscle spasms 01/01/23 01/01/23 escitalopram oxalate 20 mg tablet 20 mg PO DAILY 01/01/23 01/01/23 gabapentin 300 mg capsule 300 mg PO BID 01/01/23 01/01/23 magnesium hydroxide 400 mg/5 mL 30 ml PO DAILY PRN Constipation 01/01/23 01/01/23 oral suspension melatonin 10 mg tablet 10 mg PO BEDTIME PRN Insomnia 01/01/23 01/01/23 metformin 500 mg tablet 500 mg PO DAILY 01/01/23 01/01/23 ondansetron HCl 4 mg tablet 4 mg PO Q4H PRN nausea and 01/01/23 01/01/23 vomitting quetiapine 100 mg tablet 100 mg PO BEDTIME 01/01/23 01/01/23 sumatriptan succinate 50 mg tablet 50 mg PO BID PRN migraines 01/01/23 01/01/23 tramadol 50 mg tablet 50 mg PO Q6H PRN migraines 01/01/23 01/01/23 trazodone 50 mg tablet 25 mg PO BEDTIME 01/01/23 01/01/23 Previous Rx's Medication Instructions Recorded isosorbide mononitrate 30 mg 30 mg PO DAILY #0 tabs 09/22/21 tablet,extended release 24 hr ezetimibe 10 mg tablet 10 mg PO DAILY 7 days #7 tabs 08/24/22 oxycodone 5 mg tablet 5 mg PO BID PRN pain #4 tabs 01/01/23 prednisone 20 mg tablet 20 mg PO DAILY #5 tabs 01/01/23 Allergies Allergy/AdvReac Type Severity Reaction Status Date / Time aripiprazole [From Abilify] Allergy Severe Rash Verified 09/08/22 12:37 peas Allergy Severe HIVES Verified 09/08/22 12:37 atorvastatin [From Lipitor] Allergy Intermediate Hives Verified 09/08/22 12:37 bee pollen [bee stings] AdvReac Severe Anaphylaxis Verified 09/08/22 12:37 Review of Systems Review of Systems: Yes all other systems are reviewed and are negative PMFSH Past Medical History Medical History Somatoform disorder Depression with suicidal ideation Sleep apnea Seizure RBBB Cardiac defibrillator in place Artificial cardiac pacemaker Hyperthyroidism Hyperlipidemia History of ETOH abuse Hypertension GERD (gastroesophageal reflux disease) Diabetes Developmental delay, mild Depression COPD (chronic obstructive pulmonary disease) Asthma Anxiety Surgical History History of cardiac cath Social History Social History Household Members: Other Household Members Other:: 2 roommates Housing: Apartment Housing Other:: Sober House Do you presently have visiting nurse or other home services: No Alcohol intake: former Patient Tobacco Use Status: Never used Tobacco Tobacco use type: Cigarette Smoked in Last 30 Days: No Second Hand Smoke Exposure: No Use of substances other than those prescribed or required for medical reasons: No Substance Use Type: Former Substance User, Prescription Drugs and Caffiene Advance Directives: No Advance Directives Information Provided: No service: No Current occupational status: disabled Sexual orientation: Decline to Answer Physical Exam Vital Signs: Vital Signs: Last Vital Signs Temp 98 F 01/13/23 18:43 Pulse 73 01/13/23 20:19 Resp 12 01/13/23 20:19 BP 157/72 H 01/13/23 20:24 Pulse Ox 98 01/13/23 20:19 O2 Del Method Room Air 01/13/23 20:19 BMI result Body Mass Index 38.7 Appearance: Alert. Oriented X3. No acute distress. Eyes: PERRLA, No Nystagmus ENT: Pharynx normal. Oral Mucosa moist Neck: Normal inspection. Neck supple. CVS: Normal heart rate and rhythm. Pulses normal. Respiratory: No respiratory distress. Equal air entry bilateral, no wheezing/rales/rhonchi Abdomen: Soft and nontender. Bowel sounds are present, no mass palpable, no CVA tenderness Skin: Skin warm and dry. Normal skin color. Normal skin turgor. Extremities: No lower extremity edema. No calf tenderness Neuro: Oriented X 3. No motor deficit. No sensory deficit.No cerebellar signs , cranial nerves II-XII intact Medications Administered Discontinued Medications Generic Name Dose Route Start Last Admin Trade Name Freq PRN Reason Stop Dose Admin Oxycodone HCl 10 mg 01/13/23 19:43 01/13/23 20:17 Oxycodone Hcl Immed Release 5 Mg Tablet PO 01/13/23 19:44 10 mg ONCE ONE Administration Medical Decision Making Medical Decision Making [facility] Narrative: Patient with phantom AICD shocks likely with history of same in the past interrogation of the [facility] AICD was done review with good battery life for another 2 years no arrhythmias notice shock delivered will discharge patient back to group Differential Diagnosis Differential Diagnoses: The differential diagnosis associated with the presentation includes Cardiac arrhythmias/V-tach/phantom shocks/anxiety/chronic pain Lab Data [facility] Lab Attestation statement: I reviewed the patient's lab results. 01/13/23 19:27 01/13/23 19:27 Labs: Lab Results 01/13/23 Range/Units 19:27 WBC 7.7 (4.8-10.8) X10*3/uL RBC 4.26 L (4.60-5.80) X10*6/uL Hgb 12.7 L (14.0-18.0) g/dl Hct 37.9 L (42.0-52.0) % MCV 89.0 (80.0-98.0) fL MCH 29.8 (27.0-33.0) pg MCHC 33.5 (31.0-36.0) g/dl RDW 12.9 (11.0-16.0) % Plt Count 106 L (160-400) X10*3/uL MPV 10.8 (9.4-12.4) fL Immature Gran % (Auto) 2.6 H (0.0-0.4) % Neut % (Auto) 60.4 (45-73) % Lymph % (Auto) 22.8 (20-40) % [place] % (Auto) 8.8 (2-11) % Eos % (Auto) 4.2 H (0-4) % Baso % (Auto) 1.2 (0-2) % Lymph # (Auto) 1.8 (1.2-4.9) X10*3/uL [place] # (Auto) 0.7 (0.1-1.2) X10*3/uL Eos # (Auto) 0.3 (0.0-0.4) X10*3/uL Baso # (Auto) 0.1 (0.0-0.2) X10*3/uL Abs Immat Gran (auto) 0.20 H (0.00-0.03) X10*3/uL Absolute Neuts (auto) 4.7 (2.0-8.3) x10*3/uL Absolute Nucleated RBC 0.000 (0.0-0.012) X10*3/uL Nucleated RBC % (auto) 0.0 (0.0-0.2) /100WBC Sodium 141 (135-145) mmol/L Potassium 4.1 (3.3-5.1) mmol/L Chloride 104 (96-108) mmol/L Carbon Dioxide 24 (22-29) mmol/L Anion Gap 17 (12-20) BUN 14 (9-16) mg/dL Creatinine 1.12 (0.5-1.4) mg/dL Estim Creat Clear Calc 89.3 Estimated GFR > 60 Random Glucose 137 H (60-115) mg/dL Calcium 8.2 L D (8.4-10.2) mg/dL Magnesium 2.1 (1.6-2.6) mg/dL Total Bilirubin 0.4 (0.0-1.0) mg/dL AST 17 (5-37) U/L ALT 22 (0-40) U/L Alkaline Phosphatase 82 (39-117) U/L Troponin I High Sens < 2.7 (<3.5-35.0) ng/L Total Protein 6.9 (6.5-8.0) g/dL Albumin 3.8 (3.5-5.0) g/dL Discharge Plan Discharge Clinical Impression: Conversion disorder, Artificial cardiac pacemaker, Atypical chest pain Patient Disposition: Home, Self-Care Instructions: Noncardiac Chest Pain (ED), Conversion Disorder (ED) Additional Instructions: Interrogation of your AICD revealed no shock, has good battery life for another 2 years Your pain is musculoskeletal take Tylenol/Motrin for pain Prescriptions: No Action isosorbide mononitrate 30 mg Tablet Extended Release 24 Hr 30 mg PO DAILY Qty: 0 0RF Protocol: Hold for SBP< HOLD for SBP < : 90 sotalol 80 mg tablet 80 mg PO BID hydroxyzine pamoate 50 mg capsule 50 mg PO BID tamsulosin 0.4 mg capsule 0.4 mg PO BEDTIME nitroglycerin 0.4 mg tablet, sublingual 0.4 mg sublingual Q5M PRN (Reason: Chest Pain) albuterol sulfate 90 mcg/actuation HFA aerosol inhaler 2 puff inhalation Q4H PRN (Reason: Shortness Of Breath) ezetimibe 10 mg Tablet 10 mg PO DAILY 7 Days Qty: 7 0RF risperidone 1 mg tablet 1.5 mg PO BEDTIME Xarelto 20 mg tablet 20 mg PO DAILY@1800 levothyroxine 75 mcg tablet 75 mcg PO DAILY@0600 acetaminophen 325 mg tablet 650 mg PO Q4H PRN (Reason: Fever Or Pain) metformin 500 mg tablet 500 mg PO DAILY trazodone 50 mg tablet 25 mg PO BEDTIME ondansetron HCl 4 mg Tablet 4 mg PO Q4H PRN (Reason: nausea and vomitting) sumatriptan succinate 50 mg tablet 50 mg PO BID PRN (Reason: migraines) Rx Instructions: wait 2 hours between doses calcium carbonate [Tums] 300 mg (750 mg) Tablet,Chewable 300 mg PO Q4H PRN (Reason: Dyspepsia) aspirin 81 mg tablet,delayed release (DR/EC) 81 mg PO DAILY tramadol 50 mg tablet 50 mg PO Q6H PRN (Reason: migraines) quetiapine 100 mg tablet 100 mg PO BEDTIME magnesium hydroxide 400 mg/5 mL Suspension 30 ml PO DAILY PRN (Reason: Constipation) gabapentin 300 mg capsule 300 mg PO BID bisacodyl 5 mg Tablet,Delayed Release (Dr/Ec) 10 mg PO BEDTIME PRN (Reason: Constipation) alum-mag hydroxide-simeth [Mylanta Maximum Strength] 400-400-40 mg/5 mL Suspension 10 ml PO Q4H PRN (Reason: Constipation) escitalopram oxalate 20 mg Tablet 20 mg PO DAILY cyclobenzaprine 5 mg tablet 5 mg PO TID PRN (Reason: muscle spasms) melatonin 10 mg Tablet 10 mg PO BEDTIME PRN (Reason: Insomnia) prednisone 20 mg tablet 20 mg PO DAILY Qty: 5 0RF oxycodone 5 mg tablet 5 mg PO BID PRN (Reason: pain) Qty: 4 0RF Rx Instructions: Partial Fill upon patient request. Interventions: ED Discharge Assessment Last Done: 01/13/23 20:28 Discharge Date/Time: 01/13/23 20:32
[2023-01-13 19:33] LABS: MANUAL DIFF FLAG NO
[2023-01-13 19:36] LABS: Basophils Absolute Auto 0.1 X10*3/uL (0.0-0.2); Basophils Percent Auto 1.2 % (0-2); Eosinophils Absolute Auto 0.3 X10*3/uL (0.0-0.4); Eosinophils Percent Auto 4.2 % (0-4); Hematocrit 37.9 % (42.0-52.0); Hemoglobin 12.7 g/dl (14.0-18.0); Imm Gran Pct Auto 2.6 % (0.0-0.4); Lymphocytes Absolute Auto 1.8 X10*3/uL (1.2-4.9); Lymphocytes Percent Auto 22.8 % (20-40); Mean Corpuscular HGB Conc 33.5 g/dl (31.0-36.0); Mean Corpuscular Hemoglobin 29.8 pg (27.0-33.0); Mean Platelet Volume 10.8 fL (9.4-12.4); Monocytes Absolute Auto 0.7 X10*3/uL (0.1-1.2); Monocytes Percent Auto 8.8 % (2-11); Neutrophils Absolute Auto 4.7 x10*3/uL (2.0-8.3); Neutrophils Percent Auto 60.4 % (45-73); Platelet Count 106 X10*3/uL (160-400); Red Blood Count 4.26 X10*6/uL (4.60-5.80); Red Cell Distribution Width 12.9 % (11.0-16.0); White Blood Count 7.7 X10*3/uL (4.8-10.8)
[2023-01-13 19:52] LABS: Alanine Aminotransferase 22 U/L (0-40); Albumin Level 3.8 g/dL (3.5-5.0); Alkaline Phosphatase 82 U/L (39-117); Anion Gap 17 (12-20); Aspartate Amino Transferase 17 U/L (5-37); Bilirubin Total 0.4 mg/dL (0.0-1.0); Blood Urea Nitrogen 14 mg/dL (9-16); Calcium 8.2 mg/dL (8.4-10.2); Carbon Dioxide 24 mmol/L (22-29); Chloride 104 mmol/L (96-108); Creatinine Clr Calc Pharmacy 89.3; Estimated Glomerular Filt Rate > 60; Glucose Random 137 mg/dL (60-115); Magnesium 2.1 mg/dL (1.6-2.6); Potassium 4.1 mmol/L (3.3-5.1); Sodium 141 mmol/L (135-145); Total Protein 6.9 g/dL (6.5-8.0)
[2023-01-13 20:00] VITALS: PULSE 72
[2023-01-13 20:00] LABS: Troponin-I High Sensitivity < 2.7 ng/L (<3.5-35.0)
[2023-01-13] MEDS: oxyCODONE HCl Immed Release 5 MG TABLET 10 MG PO (20:17)
[2023-01-13 20:19] VITALS: BP 161/88; PULSE 73; RESP 12; O2SAT 98
[2023-01-13 20:24] VITALS: BP 157/72
== END 2023-01-13 20:32 | disposition home or self-care (01) ==
PROVIDERS: Emergency Provider Internal Medicine
DX: F44.9 Dissociative and conversion disorder, unspecified (principal); R07.89 Other chest pain; Z95.0 Presence of cardiac pacemaker; E11.9 Type 2 diabetes mellitus without complications; I10 Essential (primary) hypertension; E78.5 Hyperlipidemia, unspecified; Z79.82 Long term (current) use of aspirin; Z79.899 Other long term (current) drug therapy
CPT/HCPCS: 36415; 80053; 83735; 84484; 85025; 99283; 99284

== ENCOUNTER 2023-03-03 10:43 | Emergency (ER) | payer OTHER, SELFPAY ==
--- NOTE | 2023-03-03 | ECG_ITS ---
Test Reason : CHEST PAIN Blood Pressure : / mmHG Vent. Rate : 070 BPM Atrial Rate : 070 BPM P-R Int : 180 ms QRS Dur : 172 ms QT Int : 440 ms P-R-T Axes : 063 115 060 degrees QTc Int : 475 ms Normal sinus rhythm with sinus arrhythmia Right bundle branch block Left posterior fascicular block Bifascicular block Abnormal ECG When compared with ECG of 01-JAN-2023 11:26, CT interval has decreased Referred By: Generic ED Physician Electronically Signed By:PATO ROMAN MD
[2023-03-03 10:59] VITALS: BP 128/72; PULSE 85; RESP 12; TEMP 36.9; O2SAT 97; BMI 38.8
--- NOTE | 2023-03-03 11:41 | ED_ITS ---
HPI - General Adult General Chief complaint: General Medical Stated complaint: SYNCOPAL EPISODE CHEST AND NECK PAIN Time Seen by Provider: 03/03/23 11:41 Source: patient Mode of arrival: EMS Limitations: no limitations History of Present Illness HPI narrative: 62 yrs old male with a history of COPD, tetralogy of Fallot with AICD, COPD, diabetes, developmental delay, GERD, alcohol use disorder-in remission, hypert ension, hyperlipidemia who presents emergency department for evaluation of chest followed by syncopal episode. Patient states that he was having chest pain for approximately 30 minutes, he then felt lightheaded and dizzy and passed out. He states he did strike his head on a window. He is on blood thinners. Patient is living in assisted living program and was brought to emergency department by ambulance. Here in the emergency department he is complaining of a headache nausea and neck pain. He denied being ill prior to the onset of his chest pain. In reviewing his record this is the patient's 13 visit to the emergency department this year, the majority these visits are secondary to chest pain or experiencing discharge from his AICD (is each time his device interrogated, there has been no record of any shock delivered). Patient was also seen by a product development specialist, Dr. Dennison on 07/24/2022 who felt the patient's chest pain was noncardiac or may be psychogenic Related Data Home Medications Medication Instructions Recorded Confirmed albuterol sulfate 90 mcg/actuation 2 puff inhalation Q4H PRN 08/19/22 01/01/23 aerosol inhaler Shortness Of Breath hydroxyzine pamoate 50 mg capsule 50 mg PO BID Anxiety / Nausea 08/19/22 01/01/23 nitroglycerin 0.4 mg sublingual 0.4 mg sublingual Q5M PRN Chest 08/19/22 tablet Pain sotalol 80 mg tablet 80 mg PO BID 08/19/22 01/01/23 tamsulosin 0.4 mg capsule 0.4 mg PO BEDTIME 08/19/22 01/01/23 levothyroxine 75 mcg tablet 75 mcg PO DAILY@0600 09/08/22 01/01/23 risperidone 1 mg tablet 1.5 mg PO BEDTIME 09/08/22 01/01/23 rivaroxaban 20 mg tablet (Xarelto) 20 mg PO DAILY@1800 09/08/22 01/01/23 acetaminophen 325 mg tablet 650 mg PO Q4H PRN Fever Or Pain 01/01/23 01/01/23 aluminum-mag hydroxide-simethicone 10 ml PO Q4H PRN Constipation 01/01/23 01/01/23 400 mg-400 mg-40 mg/5 mL oral susp (Mylanta Maximum Strength) aspirin 81 mg tablet,delayed 81 mg PO DAILY 01/01/23 01/01/23 release bisacodyl 5 mg tablet,delayed 10 mg PO BEDTIME PRN Constipation 01/01/23 01/01/23 release calcium carbonate 300 mg (750 mg) 300 mg PO Q4H PRN Dyspepsia 01/01/23 01/01/23 chewable tablet (Tums) cyclobenzaprine 5 mg tablet 5 mg PO TID PRN muscle spasms 01/01/23 01/01/23 escitalopram oxalate 20 mg tablet 20 mg PO DAILY 01/01/23 01/01/23 gabapentin 300 mg capsule 300 mg PO BID 01/01/23 01/01/23 magnesium hydroxide 400 mg/5 mL 30 ml PO DAILY PRN Constipation 01/01/23 01/01/23 oral suspension melatonin 10 mg tablet 10 mg PO BEDTIME PRN Insomnia 01/01/23 01/01/23 metformin 500 mg tablet 500 mg PO DAILY 01/01/23 01/01/23 ondansetron HCl 4 mg tablet 4 mg PO Q4H PRN nausea and 01/01/23 01/01/23 vomitting quetiapine 100 mg tablet 100 mg PO BEDTIME 01/01/23 01/01/23 sumatriptan succinate 50 mg tablet 50 mg PO BID PRN migraines 01/01/23 01/01/23 tramadol 50 mg tablet 50 mg PO Q6H PRN migraines 01/01/23 01/01/23 trazodone 50 mg tablet 25 mg PO BEDTIME 01/01/23 01/01/23 Previous Rx's Medication Instructions Recorded isosorbide mononitrate 30 mg 30 mg PO DAILY #0 tabs 09/22/21 tablet,extended release 24 hr ezetimibe 10 mg tablet 10 mg PO DAILY 7 days #7 tabs 08/24/22 oxycodone 5 mg tablet 5 mg PO BID PRN pain #4 tabs 01/01/23 prednisone 20 mg tablet 20 mg PO DAILY #5 tabs 01/01/23 Allergies Allergy/AdvReac Type Severity Reaction Status Date / Time aripiprazole [From Abilify] Allergy Severe Rash Verified 09/08/22 12:37 peas Allergy Severe HIVES Verified 09/08/22 12:37 atorvastatin [From Lipitor] Allergy Intermediate Hives Verified 09/08/22 12:37 bee pollen [bee stings] AdvReac Severe Anaphylaxis Verified 09/08/22 12:37 Review of Systems Review of Systems: Yes all other systems are reviewed and are negative [facility] Past Medical History Medical History Somatoform disorder Depression with suicidal ideation Sleep apnea Seizure RBBB Cardiac defibrillator in place Artificial cardiac pacemaker Hyperthyroidism Hyperlipidemia History of ETOH abuse Hypertension GERD (gastroesophageal reflux disease) Diabetes Developmental delay, mild Depression COPD (chronic obstructive pulmonary disease) Asthma Anxiety Surgical History History of cardiac cath Social History Social History Household Members: Other Household Members Other:: 2 roommates Housing: Apartment Housing Other:: Sober House Do you presently have visiting nurse or other home services: No Alcohol intake: former Patient Tobacco Use Status: Never used Tobacco Tobacco use type: Cigarette Second Hand Smoke Exposure: No Substance Use Type: Former Substance User, Prescription Drugs and Caffiene Advance Directives: Yes Advance Directives Information Provided: Yes Advance Directives on File: No service: No Current occupational status: disabled Sexual orientation: Decline to Answer Physical Exam ED Vital Signs: Vital Signs - 24 hr 03/03/23 10:59 Temperature 98.4 F Pulse Rate 85 Respiratory Rate 12 Blood Pressure 128/72 Pulse Oximetry 97 Oxygen Delivery Method Room Air BMI result Body Mass Index 38.8 Vital signs were normal Exam General: Awake, alert in no distress Head: Normocephalic, atraumatic EENT: PERRL, Lids normal, sclera normal, conjunctiva normal, nose normal , ears normal, throat without erythema or exudates Neck: Supple, no adenopathy, no trachea midline or C-spine tenderness Lung: breath sounds symmetric, no wheezing, rales or rhonchi Chest: symmetric movement, nontender Heart: regular rate and rhythm, normal S1, S2 no murmurs or rubs Abdomen: soft, non-tender, nondistended, normal bowel sounds Back: no vertebral tenderness, no CVAT Extremities: no deformities, moves all extremities symmetrically Neuro: Awake, alert, oriented, normal speech, cranial nerves intact, moves all extremities symmetrically Psych: Pleasant, cooperative Medical Decision Making Medical Decision Making MDM Narrative: 62 yrs old male with a history of COPD, tetralogy of Fallot with AICD, COPD, diabetes, developmental delay, GERD, alcohol use disorder-in remission, hypertension, hyperlipidemia who presents emergency department for evaluation of chest followed by syncopal episode. Patient report that he passed out struck his head on a window. I did review the patient's record is 13 visit to the emergency depart for chest pain, syncope and paresthesias. Patient has had multiple CT scans of the head and neck as well as CT scans of the chest to evaluate his chest pain. The patient has also had a cardiology consult and conclusion was the patient's pain is noncardiac and may be psychogenic. Patient's vital signs were normal. Physical examination revealed no significant signs of trauma. Patient's neurologic exam was nonfocal. Treatment: Tylenol 975 mg orally and Zofran ODT 4 mg orally. Given the number of visits the patient has had for chest pain, syncope , falls and sensation of discharge of his defibrillator with no evidence for discharge on interrogation, do not think the patient needs a CT scan of the brain or neck at this time. I also do not think that the patient needs blood work. I did discuss this with the patient. At this time I think that the patient's chest pain and his syncopal episodes may be more related to anxiety and I did discuss this with him. The patient is requesting admission and or admission to a [facility] facility for rehab however do not think that there is a reason to admitted to the hospital and I do not think that there is any rehabilitation help. I did tell the patient that he should follow-up with his psychiatrist further treatment of his anxiety to see if this improves the number of syncopal events that he has. Differential Diagnosis Differential Diagnoses: The differential diagnosis associated with the presentation includes Differential diagnosis includes was not limited includes skull fracture, intracranial bleed, neck fracture, concussion, neck sprain, myocardial ischemia, chest wall pain, infarction, anxiety, stress, Independent Interpretation I performed an independent interpretation of an: EKG (Paced rhythm with a rate of 70) Discharge Plan Discharge Clinical Impression: Chest pain, non-cardiac, Fall, Head injury, Anxiety Patient Disposition: Home, Self-Care Additional Instructions: I did review your visits to the emergency department. This is your 13th visit to the emergency department this year. The majority these visits are for chest pain, passing out, hitting your head and feeling sensation that your diffuse implanted defibrillator is firing but no there has been no evidence of discharge of your to [facility] when the device has been interrogated. You have also had a cardiology evaluation and the conclusion was that your chest pain is not related to your heart. At this time, I believe that the chest pain may be caused by chest muscle pain or may be caused by anxiety. I also believe the episodes of passing out are caused by anxiety and there is not a reason to admit you to the hospital or to get you into a rehab facility. You need to talk to your psychiatrist about further treatment of your anxiety to see if this reduces the number of times that your having chest pain and passing out. Continue taking your medications as prescribed by your providers Follow-up with your doctor in 2 days. Please return to the emergency department if your symptoms get worse or if you develop any symptoms that are concerning to you. Prescriptions: No Action isosorbide mononitrate 30 mg Tablet Extended Release 24 Hr 30 mg PO DAILY Qty: 0 0RF Protocol: Hold for SBP< HOLD for SBP < : 90 sotalol 80 mg tablet 80 mg PO BID hydroxyzine pamoate 50 mg capsule 50 mg PO BID tamsulosin 0.4 mg capsule 0.4 mg PO BEDTIME nitroglycerin 0.4 mg tablet, sublingual 0.4 mg sublingual Q5M PRN (Reason: Chest Pain) albuterol sulfate 90 mcg/actuation HFA aerosol inhaler 2 puff inhalation Q4H PRN (Reason: Shortness Of Breath) ezetimibe 10 mg Tablet 10 mg PO DAILY 7 Days Qty: 7 0RF risperidone 1 mg tablet 1.5 mg PO BEDTIME Xarelto 20 mg tablet 20 mg PO DAILY@1800 levothyroxine 75 mcg tablet 75 mcg PO DAILY@0600 acetaminophen 325 mg tablet 650 mg PO Q4H PRN (Reason: Fever Or Pain) metformin 500 mg tablet 500 mg PO DAILY trazodone 50 mg tablet 25 mg PO BEDTIME ondansetron HCl 4 mg Tablet 4 mg PO Q4H PRN (Reason: nausea and vomitting) sumatriptan succinate 50 mg tablet 50 mg PO BID PRN (Reason: migraines) Rx Instructions: wait 2 hours between doses calcium carbonate [Tums] 300 mg (750 mg) Tablet,Chewable 300 mg PO Q4H PRN (Reason: Dyspepsia) aspirin 81 mg tablet,delayed release (DR/EC) 81 mg PO DAILY tramadol 50 mg tablet 50 mg PO Q6H PRN (Reason: migraines) quetiapine 100 mg tablet 100 mg PO BEDTIME magnesium hydroxide 400 mg/5 mL Suspension 30 ml PO DAILY PRN (Reason: Constipation) gabapentin 300 mg capsule 300 mg PO BID bisacodyl 5 mg Tablet,Delayed Release (Dr/Ec) 10 mg PO BEDTIME PRN (Reason: Constipation) alum-mag hydroxide-simeth [Mylanta Maximum Strength] 400-400-40 mg/5 mL Suspension 10 ml PO Q4H PRN (Reason: Constipation) escitalopram oxalate 20 mg Tablet 20 mg PO DAILY cyclobenzaprine 5 mg tablet 5 mg PO TID PRN (Reason: muscle spasms) melatonin 10 mg Tablet 10 mg PO BEDTIME PRN (Reason: Insomnia) prednisone 20 mg tablet 20 mg PO DAILY Qty: 5 0RF oxycodone 5 mg tablet 5 mg PO BID PRN (Reason: pain) Qty: 4 0RF Rx Instructions: Partial Fill upon patient request.
--- NOTE | 2023-03-03 12:43 | PC.NURSE ---
patient upset about being discharged, requesting to be admitted with case management/physical therapy. assisted out of bed with tech, ambulated independently to the bathroom with strong steady gait.
[2023-03-03] MEDS: Acetaminophen 325 MG TABLET 975 MG PO (13:00)
[2023-03-03] MEDS: Ondansetron ODT 4 MG TAB.RAPDIS TRANSLINGU (13:00)
--- NOTE | 2023-03-03 13:00 | PC.NURSE ---
medicated per the MAR, patient called for his ride to come pick him up. provided with sandwich and something to drink while he waits.
[2023-03-03 13:37] VITALS: BP 159/78; PULSE 74; RESP 18; O2SAT 97
== END 2023-03-03 13:38 | disposition home or self-care (01) ==
PROVIDERS: Emergency Provider Emergency Medicine Emergency Medical Services; PCP Internal Medicine
DX: R55 Syncope and collapse (principal); R51.9 Headache, unspecified; M54.2 Cervicalgia; F41.1 Generalized anxiety disorder; R07.89 Other chest pain; F43.0 Acute stress reaction; Z79.899 Other long term (current) drug therapy
CPT/HCPCS: 93005; 99283; 99285

== ENCOUNTER → 2023-03-03 11:36 | Outpatient (BNV) | payer OTHER, SELFPAY | PROVIDERS: Emergency Provider Emergency Medicine Emergency Medical Services; PCP Internal Medicine; Visit Provider Internal Medicine Cardiovascular Disease | DX: I45.2 Bifascicular block (principal); R94.31 Abnormal electrocardiogram [ECG] [EKG] | CPT/HCPCS: 93010 ==

== ENCOUNTER 2023-08-31 13:23 | Emergency (ER) | payer OTHER, SELFPAY ==
--- NOTE | 2023-08-31 13:34 | ED_ITS ---
HPI - Abdominal Pain General Chief Complaint: Abdominal Pain Stated Complaint: LOW ABD PAIN RAD TO L LEG PER EMS Time Seen by Provider: 08/31/23 13:27 Source: patient, EMS, RN notes reviewed and old records reviewed Mode of arrival: EMS Limitations: no limitations History of Present Illness ED Provider: Mathieu Mathis PA-C HPI narrative: 63 yo male with history of COPD, tetralogy of Fallot with AICD, COPD, diabetes, developmental delay, GERD, alcohol use disorder-in remission, hypertension, hyperlipidemia, history of C diff colitis, who presents to the ER for evaluation of right lower back pain that started 2 or 3 weeks ago when he was doing nothing in particular. Patient states he was seen at [facility] yesterday for which they did a CT scan, lab work and urine test. He states he had ?bad kidneys,? was given Toradol for the pain with no improvement. He states he had 14 teeth removed 2 weeks ago and was on antibiotics until last week. He reports having some loose bowel movements. MD elicited complaint: flank pain Onset (ago): week(s) Pain Consistency: constant Location: R flank Severity: moderate Quality: stabbing Radiation: other (Right lower extremity) Migration to: no migration Exacerbating factors: nothing Relieving factors: movement Associated symptoms: dysuria Treatments prior to arrival: NSAIDs Related Data Home Medications ?Medication ?Instructions ?Recorded ?Confirmed albuterol sulfate 90 mcg/actuation 2 puff inhalation Q4H PRN 08/19/22 01/01/23 aerosol inhaler Shortness Of Breath hydroxyzine pamoate 50 mg capsule 50 mg PO BID Anxiety / Nausea 08/19/22 01/01/23 nitroglycerin 0.4 mg sublingual 0.4 mg sublingual Q5M PRN Chest 08/19/22 01/01/23 tablet Pain sotalol 80 mg tablet 80 mg PO BID 08/19/22 01/01/23 tamsulosin 0.4 mg capsule 0.4 mg PO BEDTIME 08/19/22 01/01/23 levothyroxine 75 mcg tablet 75 mcg PO DAILY@0600 09/08/22 01/01/23 risperidone 1 mg tablet 1.5 mg PO BEDTIME 09/08/22 01/01/23 rivaroxaban 20 mg tablet (Xarelto) 20 mg PO DAILY@1800 09/08/22 01/01/23 acetaminophen 325 mg tablet 650 mg PO Q4H PRN Fever Or Pain 01/01/23 01/01/23 aluminum-mag hydroxide-simethicone 10 ml PO Q4H PRN Constipation 01/01/23 01/01/23 400 mg-400 mg-40 mg/5 mL oral susp (Mylanta Maximum Strength) aspirin 81 mg tablet,delayed 81 mg PO DAILY 01/01/23 01/01/23 release bisacodyl 5 mg tablet,delayed 10 mg PO BEDTIME PRN Constipation 01/01/23 01/01/23 release calcium carbonate (Tums) 300 mg PO Q4H PRN Dyspepsia 01/01/23 01/01/23 cyclobenzaprine 5 mg tablet 5 mg PO TID PRN muscle spasms 01/01/23 01/01/23 escitalopram oxalate 20 mg tablet 20 mg PO DAILY 01/01/23 01/01/23 gabapentin 300 mg capsule 300 mg PO BID 01/01/23 01/01/23 magnesium hydroxide 400 mg/5 mL 30 ml PO DAILY PRN Constipation 01/01/23 01/01/23 oral suspension melatonin 10 mg tablet 10 mg PO BEDTIME PRN Insomnia 01/01/23 01/01/23 metformin 500 mg tablet 500 mg PO DAILY 01/01/23 01/01/23 ondansetron HCl 4 mg tablet 4 mg PO Q4H PRN nausea and 01/01/23 01/01/23 vomitting quetiapine 100 mg tablet 100 mg PO BEDTIME 01/01/23 01/01/23 sumatriptan succinate 50 mg tablet 50 mg PO BID PRN migraines 01/01/23 01/01/23 tramadol 50 mg tablet 50 mg PO Q6H PRN migraines 01/01/23 01/01/23 trazodone 50 mg tablet 25 mg PO BEDTIME 01/01/23 01/01/23 Previous Rx's ?Medication ?Instructions ?Recorded isosorbide mononitrate 30 mg 30 mg PO DAILY #0 tabs 09/22/21 tablet,extended release 24 hr ezetimibe 10 mg tablet 10 mg PO DAILY 7 days #7 tabs 08/24/22 oxycodone 5 mg tablet 5 mg PO BID PRN pain #4 tabs 01/01/23 prednisone 20 mg tablet 20 mg PO DAILY #5 tabs 01/01/23 Allergies Allergy/AdvReac Type Severity Reaction Status Date / Time aripiprazole [From Abilify] Allergy Severe Rash Verified 08/31/23 13:45 peas Allergy Severe HIVES Verified 08/31/23 13:45 atorvastatin [From Lipitor] Allergy Intermediate Hives Verified 08/31/23 13:45 bee pollen [bee stings] AdvReac Severe Anaphylaxis Verified 08/31/23 13:45 Review of Systems Review of Systems Yes all other systems are reviewed and are negative [facility] Past Medical History Medical History Somatoform disorder Depression with suicidal ideation Sleep apnea Seizure RBBB Cardiac defibrillator in place Artificial cardiac pacemaker Hyperthyroidism Hyperlipidemia History of ETOH abuse Hypertension GERD (gastroesophageal reflux disease) Diabetes Developmental delay, mild Depression COPD (chronic obstructive pulmonary disease) Asthma Anxiety Surgical History History of cardiac cath Social History Social History Household Members: Other Household Members Other:: 2 roommates Housing: Apartment Housing Other:: Sober House Do you presently have visiting nurse or other home services: No Alcohol intake: former Patient Tobacco Use Status: Never used Tobacco Tobacco use type: Cigarette Second Hand Smoke Exposure: No Substance Use Type: Former Substance User, Prescription Drugs and Caffiene Advance Directives: No Advance Directives Information Provided: Yes service: No Current occupational status: disabled Sexual orientation: Decline to Answer Physical Exam ED Vital Signs: Vital Signs - 24 hr 08/31/23 13:40 08/31/23 15:18 Temperature 97 F 97.5 F Pulse Rate 92 89 Respiratory Rate 16 24 H Blood Pressure 160/81 H 129/81 Pulse Oximetry 96 98 Oxygen Delivery Method Room Air Room Air BMI result Body Mass Index 39.6 Appearance: Alert. Oriented X3. No acute distress. Head: normocephalic, atraumatic. Eyes: Pupils equal, round and reactive to light. ENT: Pharynx normal. No tonsillar swelling or exudate. Neck: Normal inspection. Neck supple. CVS: Well-healed surgical scar in the center of the chest. Normal heart rate and rhythm. Pulses normal. Respiratory: No respiratory distress. Breath sounds normal. Abdomen: Obese, Soft and nontender. +BS x4. Back: Normal to inspection, no ecchymosis, right lower soft tissue tenderness in the lumbar region, no CVA tenderness. Skin: Skin warm and dry. Normal skin color. Normal skin turgor. No rashes. Extremities: No lower extremity edema. No joint swelling. Neuro/psych: Oriented X 3. No motor deficit. No sensory deficit. CN II-XII intact. Normal speech and cognition. Ambulating normally. Medical Decision Making Medical Decision Making MDM Narrative: 63 yo male with history of COPD, tetralogy of Fallot with AICD, COPD, diabetes, developmental delay, GERD, alcohol use disorder-in remission, hypertension, hyperlipidemia, history of C diff colitis, who presents to the ER for evaluation of right lower back pain that started 2 or 3 weeks ago when he was doing nothing in particular. Seems for the same at [facility] yesterday had a CT scan and labs done. Unknown what the results were, although patient reports denying having a UTI. He was given Toradol with no relief in the pain. On examination today his clinical picture is most consistent with musculoskeletal pain, question of sciatica given the radiation down the leg. He has soft tissue tenderness with palpable spasm in the low lumbar area. He was given Tylenol, lidocaine patch, Flexeril with minimal relief. Oral oxycodone was then given. Awaiting [facility] records. Low clinical suspicion for kidney stone. His urinalysis is negative for infection and blood. No need for repeat CT scan at this time. EKG done initially has significant artifact although largely unchanged from prior. Repeat is pending. Patient has not had any bowel movements while in the emergency department. Low clinical suspicion for C diff. last bowel movement was this morning. Differential Diagnosis Differential Diagnoses: The differential diagnosis associated with the presentation includes Lumbar strain, sciatica, UTI, pyelonephritis, colitis, C diff colitis Lab Data [facility] Lab Attestation statement: I reviewed the patient's lab results. Leukocytosis, stable normocytic anemia, normal renal function 08/31/23 14:07 08/31/23 14:07 Labs: Lab Results 08/31/23 08/31/23 Range/Units 14:07 14:59 WBC 13.1 H (4.8-10.8) X10*3/uL RBC 4.07 L (4.60-5.80) X10*6/uL Hgb 11.7 L (14.0-18.0) g/dl Hct 35.2 L (42.0-52.0) % MCV 86.5 (80.0-98.0) fL MCH 28.7 (27.0-33.0) pg MCHC 33.2 (31.0-36.0) g/dl RDW 12.5 (11.0-16.0) % Plt Count 103 L (160-400) X10*3/uL MPV 11.0 (9.4-12.4) fL Immature Gran % (Auto) 1.1 H (0.0-0.4) % Neut % (Auto) 81.6 H (45-73) % Lymph % (Auto) 8.9 L (20-40) % [place] % (Auto) 8.0 (2-11) % Eos % (Auto) 0.1 (0-4) % Baso % (Auto) 0.3 (0-2) % Lymph # (Auto) 1.2 (1.2-4.9) X10*3/uL [place] # (Auto) 1.1 (0.1-1.2) X10*3/uL Eos # (Auto) 0.0 (0.0-0.4) X10*3/uL Baso # (Auto) 0.0 (0.0-0.2) X10*3/uL Abs Immat Gran (auto) 0.15 H (0.00-0.03) X10*3/uL Absolute Neuts (auto) 10.7 H (2.0-8.3) x10*3/uL Absolute Nucleated RBC 0.000 (0.0-0.012) X10*3/uL Nucleated RBC % (auto) 0.0 (0.0-0.2) /100WBC Sodium 140 (135-145) mmol/L Potassium 4.5 (3.3-5.1) mmol/L Chloride 107 (96-108) mmol/L Carbon Dioxide 25 (22-29) mmol/L Anion Gap 13 (12-20) BUN 21 H (9-16) mg/dL Creatinine 1.23 (0.5-1.4) mg/dL Estim Creat Clear Calc 78.7 Estimated GFR 60 Random Glucose 144 H (60-115) mg/dL Calcium 8.4 (8.4-10.2) mg/dL Magnesium 1.9 (1.6-2.6) mg/dL Total Bilirubin 0.4 (0.0-1.0) mg/dL Direct Bilirubin 0.1 (0.0-0.5) mg/dL AST 15 (5-37) U/L ALT 16 (0-40) U/L Alkaline Phosphatase 80 (39-117) U/L Total Protein 6.5 (6.5-8.0) g/dL Albumin 3.8 (3.5-5.0) g/dL Urine Color Yellow Urine Appearance Clear Urine pH 5.5 (5.0-9.0) Ur Specific [place] 1.020 (1.005-1.025) Urine Protein Negative (Neg-Trace) mg/dL Urine Glucose (UA) Negative (Negative) mg/dL Urine Ketones Negative (Negative) mg/dL Urine Blood Negative (Negative) Urine Nitrite Negative (Negative) Ur Leukocyte Esterase Negative (Negative) Independent Interpretation I performed an independent interpretation of an: EKG Interpretation: EKG @ 15:02with normal sinus rhythm, marked artifact present, appears to have a bifascicular block which is unchanged from prior back in March of 2023. EKG 2 @ 15:50 With normal sinus rhythm, first-degree AV block with AK interval of 214 MS, ventricular rate 86 beats per minute, prolonged QTC of 521, right bundle-branch block noted, no change from prior Independent Historian Clinical information obtained from an independent historian. History obtained from or confirmed by: EMS External Record Review External record reviewed: Outpatient record, Prior outpatient labs, Prior outpatient radiology and Outside ED record Prescription Management I considered prescription management with: Pain Medication and Antibiotic Chronic Conditions Patient?s care impacted by: Other (Obesity, COPD, somatoform disorder) Medications Administered Discontinued Medications Generic Name Dose Route Start Last Admin Trade Name Freq PRN Reason Stop Dose Admin Acetaminophen 975 mg 08/31/23 14:20 08/31/23 14:34 Acetaminophen 325 Mg Tablet PO 08/31/23 14:21 975 mg ONCE ONE Administration Cyclobenzaprine HCl 10 mg 08/31/23 14:20 08/31/23 14:34 Cyclobenzaprine Hcl 10 Mg Tablet PO 08/31/23 14:21 10 mg ONCE ONE Administration Lidocaine 1 patch 08/31/23 14:20 08/31/23 14:35 Lidocaine 4 % Patch Adh..Patch TRANSDERMA 08/31/23 14:21 1 patch ONCE ONE Administration Protocol Oxycodone HCl 5 mg 08/31/23 15:51 08/31/23 15:56 Oxycodone Hcl Immed Release 5 Mg Tablet PO 08/31/23 15:52 5 mg ONCE ONE Administration Critical Care Time Critical Care Time Critical Care Time: No Discharge Plan Discharge Clinical Impression: Low back pain Qualifiers: Chronicity: acute Back pain laterality: right Sciatica presence: with sciatica Sciatica laterality: sciatica of right side Qualified Code(s): M54.41 - Lumbago with sciatica, right side Patient Disposition: Still a Patient Instructions: Sciatica (ED), Acute Low Back Pain (ED), Lower Back Exercises (ED) Additional Instructions: Your kidney function today was normal. Your urine test was normal. Your pain is most likely musculoskeletal. Limit your bending, lifting or twisting. Use ice several times per day for 20 minutes at a time for the next 48 hours and then change to heat. Take medications as prescribed to help with pain and discomfort. Apply ice to your bee sting and take benadryl as needed for swelling. Follow up with your Primary Care Doctor. If your pain worsens, if you develop new numbness, tingling, weakness, loss of function or incontinence call 911 or come back to the ER right away for evaluation. Prescriptions: No Action isosorbide mononitrate 30 mg Tablet Extended Release 24 Hr 30 mg PO DAILY Qty: 0 0RF Protocol: Hold for SBP< HOLD for SBP < : 90 sotalol 80 mg tablet 80 mg PO BID hydroxyzine pamoate 50 mg capsule 50 mg PO BID tamsulosin 0.4 mg capsule 0.4 mg PO BEDTIME nitroglycerin 0.4 mg tablet, sublingual 0.4 mg sublingual Q5M PRN (Reason: Chest Pain) albuterol sulfate 90 mcg/actuation HFA aerosol inhaler 2 puff inhalation Q4H PRN (Reason: Shortness Of Breath) ezetimibe 10 mg Tablet 10 mg PO DAILY 7 Days Qty: 7 0RF risperidone 1 mg tablet 1.5 mg PO BEDTIME Xarelto 20 mg tablet 20 mg PO DAILY@1800 levothyroxine 75 mcg tablet 75 mcg PO DAILY@0600 acetaminophen 325 mg tablet 650 mg PO Q4H PRN (Reason: Fever Or Pain) metformin 500 mg tablet 500 mg PO DAILY trazodone 50 mg tablet 25 mg PO BEDTIME ondansetron HCl 4 mg Tablet 4 mg PO Q4H PRN (Reason: nausea and vomitting) sumatriptan succinate 50 mg tablet 50 mg PO BID PRN (Reason: migraines) Rx Instructions: wait 2 hours between doses calcium carbonate [Tums] 300 mg (750 mg) Tablet,Chewable 300 mg PO Q4H PRN (Reason: Dyspepsia) aspirin 81 mg tablet,delayed release (DR/EC) 81 mg PO DAILY tramadol 50 mg tablet 50 mg PO Q6H PRN (Reason: migraines) quetiapine 100 mg tablet 100 mg PO BEDTIME magnesium hydroxide 400 mg/5 mL Suspension 30 ml PO DAILY PRN (Reason: Constipation) gabapentin 300 mg capsule 300 mg PO BID bisacodyl 5 mg Tablet,Delayed Release (Dr/Ec) 10 mg PO BEDTIME PRN (Reason: Constipation) alum-mag hydroxide-simeth [Mylanta Maximum Strength] 400-400-40 mg/5 mL Suspension 10 ml PO Q4H PRN (Reason: Constipation) escitalopram oxalate 20 mg Tablet 20 mg PO DAILY cyclobenzaprine 5 mg tablet 5 mg PO TID PRN (Reason: muscle spasms) melatonin 10 mg Tablet 10 mg PO BEDTIME PRN (Reason: Insomnia) prednisone 20 mg tablet 20 mg PO DAILY Qty: 5 0RF oxycodone 5 mg tablet 5 mg PO BID PRN (Reason: pain) Qty: 4 0RF Rx Instructions: Partial Fill upon patient request. Referrals: Amari Vyas DO, MD [Primary Care Provider] - Print Language: [place] Leonean
[2023-08-31 13:40] VITALS: BP 140/98; BP 160/81; PULSE 89; PULSE 92; RESP 16; TEMP 36.1; O2SAT 96; O2SAT 97; BMI 39.6
--- NOTE | 2023-08-31 13:51 | ECG_ITS ---
Test Reason : CHEST PAIN Blood Pressure : / mmHG Vent. Rate : 167 BPM Atrial Rate : 086 BPM P-R Int : 258 ms QRS Dur : 014 ms QT Int : 138 ms P-R-T Axes : -57 000 267 degrees QTc Int : 230 ms Undetermined rhythm Indeterminate axis Pulmonary disease pattern Marked ST abnormality, possible inferior subendocardial injury Abnormal ECG When compared with ECG of 03-MAR-2023 11:36, Current undetermined rhythm precludes rhythm comparison, needs review (RBBB and left posterior fascicular block) is no longer Present Referred By: Shoshana Mathis Electronically Signed By:
[2023-08-31 14:11] LABS: MANUAL DIFF FLAG NO
[2023-08-31 14:12] LABS: Basophils Percent Auto 0.3 % (0-2); Eosinophils Percent Auto 0.1 % (0-4); Hematocrit 35.2 % (42.0-52.0); Hemoglobin 11.7 g/dl (14.0-18.0); Imm Gran Abs Auto 0.15 X10*3/uL (0.00-0.03); Imm Gran Pct Auto 1.1 % (0.0-0.4); Lymphocytes Absolute Auto 1.2 X10*3/uL (1.2-4.9); Lymphocytes Percent Auto 8.9 % (20-40); Mean Corpuscular HGB Conc 33.2 g/dl (31.0-36.0); Mean Corpuscular Hemoglobin 28.7 pg (27.0-33.0); Mean Corpuscular Volume 86.5 fL (80.0-98.0); Monocytes Absolute Auto 1.1 X10*3/uL (0.1-1.2); Neutrophils Absolute Auto 10.7 x10*3/uL (2.0-8.3); Neutrophils Percent Auto 81.6 % (45-73); Platelet Count 103 X10*3/uL (160-400); Red Blood Count 4.07 X10*6/uL (4.60-5.80); Red Cell Distribution Width 12.5 % (11.0-16.0); White Blood Count 13.1 X10*3/uL (4.8-10.8)
[2023-08-31 14:31] LABS: Alanine Aminotransferase 16 U/L (0-40); Albumin Level 3.8 g/dL (3.5-5.0); Alkaline Phosphatase 80 U/L (39-117); Anion Gap 13 (12-20); Aspartate Amino Transferase 15 U/L (5-37); Bilirubin Direct 0.1 mg/dL (0.0-0.5); Bilirubin Total 0.4 mg/dL (0.0-1.0); Blood Urea Nitrogen 21 mg/dL (9-16); Calcium 8.4 mg/dL (8.4-10.2); Carbon Dioxide 25 mmol/L (22-29); Chloride 107 mmol/L (96-108); Creatinine Clr Calc Pharmacy 78.7; Estimated Glomerular Filt Rate 60; Glucose Random 144 mg/dL (60-115); Magnesium 1.9 mg/dL (1.6-2.6); Potassium 4.5 mmol/L (3.3-5.1); Sodium 140 mmol/L (135-145); Total Protein 6.5 g/dL (6.5-8.0)
[2023-08-31] MEDS: Cyclobenzaprine HCl 10 MG TABLET PO (14:34)
[2023-08-31] MEDS: Acetaminophen 325 MG TABLET 975 MG PO (14:34)
[2023-08-31] MEDS: Lidocaine 4 % Patch ADH..PATCH 1 PATCH TRANSDERMA (14:35)
[2023-08-31 15:13] LABS: Appearance Urine Clear; Color Urine Yellow; Glucose Urine UA Negative (Negative); Leukocyte Esterase Urine Negative (Negative); Nitrite Urine Negative (Negative); PH 5.5 (5.0-9.0); Urine Blood Negative (Negative); Urine Ketones Negative (Negative); Urine Protein Negative (Neg-Trace)
[2023-08-31 15:18] VITALS: BP 129/81; PULSE 89; RESP 24; TEMP 36.4; O2SAT 98
--- NOTE | 2023-08-31 15:46 | ECG_ITS ---
Test Reason : CHEST PAIN Blood Pressure : / mmHG Vent. Rate : 086 BPM Atrial Rate : 086 BPM P-R Int : 214 ms QRS Dur : 176 ms QT Int : 436 ms P-R-T Axes : 060 103 037 degrees QTc Int : 521 ms Sinus rhythm with 1st degree A-V block Right bundle branch block Abnormal ECG When compared with ECG of 03-MAR-2023 11:36, ME interval has increased Referred By: Shoshana Mathis Electronically Signed By:PEPE CABALLERO
[2023-08-31] MEDS: oxyCODONE HCl Immed Release 5 MG TABLET PO (15:56)
[2023-08-31 16:42] LABS: CDiff Gene PCR NEGATIVE (Negative)
--- NOTE | 2023-08-31 16:45 | PC.NURSE ---
patient ambulates with steady gait to the bathroom
[2023-08-31 17:06] VITALS: BP 180/80; PULSE 85; RESP 20; TEMP 36.4; O2SAT 97
== END 2023-08-31 17:30 | disposition home or self-care (01) ==
PROVIDERS: Physician Assistant; Emergency Provider Emergency Medicine; PCP Internal Medicine
DX: M54.41 Lumbago with sciatica, right side (principal); E11.9 Type 2 diabetes mellitus without complications; I10 Essential (primary) hypertension; J44.9 Chronic obstructive pulmonary disease, unspecified; Z95.810 Presence of automatic (implantable) cardiac defibrillator
CPT/HCPCS: 36415; 80048; 80076; 81003; 83735; 85025; 87493; 93005; 99283; 99285

== ENCOUNTER → 2023-08-31 15:46 | Outpatient (BNV) | payer OTHER, SELFPAY | PROVIDERS: Emergency Provider Emergency Medicine; PCP Internal Medicine; Visit Provider Internal Medicine | DX: I44.0 Atrioventricular block, first degree (principal) | CPT/HCPCS: 93010 ==

== ENCOUNTER 2023-09-16 16:35 | Emergency (ER) | payer OTHER, SELFPAY ==
--- NOTE | ~2023-09-16 | XR_ITS ---
EXAMINATION: XR CHEST CLINICAL INFORMATION: Chest pain COMPARISON: Chest radiograph from 12/23/2022 TECHNIQUE: Frontal view of the chest was obtained. FINDINGS: No focal consolidation. No pneumothorax. Trachea is midline. Left chest wall pacer, stable. Cardiac mediastinal silhouette is stable. No large pleural effusion. Osseous structures are intact. Soft tissues are unremarkable. XR/XR chest 1V IMPRESSION: No acute cardiopulmonary process.
--- NOTE | 2023-09-16 16:42 | ECG_ITS ---
Test Reason : CHEST PAIN Blood Pressure : / mmHG Vent. Rate : 082 BPM Atrial Rate : 082 BPM P-R Int : 208 ms QRS Dur : 168 ms QT Int : 444 ms P-R-T Axes : 057 108 048 degrees QTc Int : 518 ms Normal sinus rhythm with 1st degree A-V block Right bundle branch block Abnormal ECG When compared with ECG of 31-AUG-2023 15:50, No significant change was found Referred By: Maty Núñez Electronically Signed By:PEPE CABALLERO
[2023-09-16 16:43] VITALS: BP 114/60; BP 115/61; PULSE 82; PULSE 86; RESP 18; TEMP 36.7; O2SAT 97; BMI 36.4
--- OUTSIDE RECORDS SUMMARY | 2023-09-16 16:55 | XMS_ITS | Patient Health Record ---
Author Organization [facility] Address [address] [place], [place] [id number] Care Team Providers Care Central Office Trouble Shooter Name Role Phone Latanya Venegas Primary Care Provider REASON FOR REFERRAL No Information SOCIAL HISTORY Sex Assigned At : Social History Observation Description Sex Assigned At Unknown PLAN OF TREATMENT No Information Insurance Providers Payer Name Payer Address Payer Phone Subscriber Number Group Number Insured Name Patient Relationship to Insured Coverage Start Date Coverage End Date [facility] [address] [id number] Joaquín Barrientos Self - patient is the insured 1
--- NOTE | 2023-09-16 17:04 | ED.CHESTPAIN ---
HPI - Chest Pain General Chief Complaint: Chest Pain Stated Complaint: Visceral chest pain x1hr, 1st degree heart block Time Seen by Provider: 09/16/23 16:46 Source: patient and EMS Mode of arrival: EMS Limitations: no limitations History of Present Illness ED Provider: Dr. Maty Núñez HPI narrative: Patient comes to the emergency room complaining of 1 hour of chest pain that started after walking for 10 minutes. Patient states that he has had dizziness when he stands up from a sitting position. Patient denies shortness of breath. Patient denies abdominal pain Related Data Home Medications ?Medication ?Instructions ?Recorded ?Confirmed albuterol sulfate 90 mcg/actuation 2 puff inhalation Q4H PRN 08/19/22 01/01/23 aerosol inhaler Shortness Of Breath hydroxyzine pamoate 50 mg capsule 50 mg PO BID Anxiety / Nausea 08/19/22 01/01/23 nitroglycerin 0.4 mg sublingual 0.4 mg sublingual Q5M PRN Chest 08/19/22 01/01/23 tablet Pain sotalol 80 mg tablet 80 mg PO BID 08/19/22 01/01/23 tamsulosin 0.4 mg capsule 0.4 mg PO BEDTIME 08/19/22 01/01/23 levothyroxine 75 mcg tablet 75 mcg PO DAILY@0600 09/08/22 01/01/23 risperidone 1 mg tablet 1.5 mg PO BEDTIME 09/08/22 01/01/23 rivaroxaban 20 mg tablet (Xarelto) 20 mg PO DAILY@1800 09/08/22 01/01/23 acetaminophen 325 mg tablet 650 mg PO Q4H PRN Fever Or Pain 01/01/23 01/01/23 aluminum-mag hydroxide-simethicone 10 ml PO Q4H PRN Constipation 01/01/23 01/01/23 400 mg-400 mg-40 mg/5 mL oral susp (Mylanta Maximum Strength) aspirin 81 mg tablet,delayed 81 mg PO DAILY 01/01/23 01/01/23 release bisacodyl 5 mg tablet,delayed 10 mg PO BEDTIME PRN Constipation 01/01/23 01/01/23 release calcium carbonate (Tums) 300 mg PO Q4H PRN Dyspepsia 01/01/23 01/01/23 cyclobenzaprine 5 mg tablet 5 mg PO TID PRN muscle spasms 01/01/23 01/01/23 escitalopram oxalate 20 mg tablet 20 mg PO DAILY 01/01/23 01/01/23 gabapentin 300 mg capsule 300 mg PO BID 01/01/23 01/01/23 magnesium hydroxide 400 mg/5 mL 30 ml PO DAILY PRN Constipation 01/01/23 01/01/23 oral suspension melatonin 10 mg tablet 10 mg PO BEDTIME PRN Insomnia 01/01/23 01/01/23 metformin 500 mg tablet 500 mg PO DAILY 01/01/23 01/01/23 ondansetron HCl 4 mg tablet 4 mg PO Q4H PRN nausea and 01/01/23 01/01/23 vomitting quetiapine 100 mg tablet 100 mg PO BEDTIME 01/01/23 01/01/23 sumatriptan succinate 50 mg tablet 50 mg PO BID PRN migraines 01/01/23 01/01/23 tramadol 50 mg tablet 50 mg PO Q6H PRN migraines 01/01/23 01/01/23 trazodone 50 mg tablet 25 mg PO BEDTIME 01/01/23 01/01/23 Previous Rx's ?Medication ?Instructions ?Recorded isosorbide mononitrate 30 mg 30 mg PO DAILY #0 tabs 09/22/21 tablet,extended release 24 hr ezetimibe 10 mg tablet 10 mg PO DAILY 7 days #7 tabs 08/24/22 oxycodone 5 mg tablet 5 mg PO BID PRN pain #4 tabs 01/01/23 prednisone 20 mg tablet 20 mg PO DAILY #5 tabs 01/01/23 cyclobenzaprine 10 mg tablet 10 mg PO TID PRN muscle spasm #10 08/31/23 tabs Allergies Allergy/AdvReac Type Severity Reaction Status Date / Time aripiprazole [From Abilify] Allergy Severe Rash Verified 09/16/23 16:45 peas Allergy Severe HIVES Verified 09/16/23 16:45 atorvastatin [From Lipitor] Allergy Intermediate Hives Verified 09/16/23 16:45 bee pollen [bee stings] AdvReac Severe Anaphylaxis Verified 09/16/23 16:45 Review of Systems Review of Systems: Constitutional : No Weight loss, No Fever, No Chills, No Night Sweats, No Fatigue, No Malaise ENT/Mouth : No Hearing loss, No Ear Pain, No Nasal Congestion, No Sinus Pain, No Hoarseness, No sore throat, No Rhinorrhea, No Swallowing Difficulty Eyes: No Eye Pain, No Swelling, No Redness, No Foreign Body, No Discharge, No Vision Changes Cardiovascular : Complaining of chest pain after walking, complaining of dizziness with sitting up from standing position,, No SOB, No Dyspnea on Exertion, No Orthopnea, No Edema, No Palpitations Respiratory : No Cough, No Sputum, No Wheezing, No Smoke Exposure, No Dyspnea Gastrointestinal : No Nausea, No Vomiting, No Diarrhea, No Constipation, No abdominal Pain, No Hematochezia, No Melena Genitourinary : no irregular bleeding, No Dysuria, No Urinary Frequency, No Hematuria, No Urinary Incontinence, No Urgency, No Flank Pain, No Urinary Flow Changes, No Hesitancy Musculoskeletal : No joint pain, No Myalgias, No Joint Swelling Skin : No Skin Lesions, No rash Neuro : No Weakness, No Numbness, No Paresthesias, No Loss of Consciousness, No Dizziness, No Headache Psych : No Anxiety/Panic, No Depression, No SI/HI/AH/VH, No Social Issues, Heme/Lymph: No Bruising, No Bleeding,No Lymphadenopathy Endocrine : No Polyuria, No Polydipsia, No Temperature Intolerance [facility] Past Medical History Medical History Somatoform disorder Depression with suicidal ideation Sleep apnea Seizure RBBB Cardiac defibrillator in place Artificial cardiac pacemaker Hyperthyroidism Hyperlipidemia History of ETOH abuse Hypertension GERD (gastroesophageal reflux disease) Diabetes Developmental delay, mild Depression COPD (chronic obstructive pulmonary disease) Asthma Anxiety Surgical History History of cardiac cath Social History Social History Household Members: Other Household Members Other:: 2 roommates Housing: Apartment Housing Other:: Sober House Do you presently have visiting nurse or other home services: No Alcohol intake: former Patient Tobacco Use Status: Never used Tobacco Tobacco use type: Cigarette Smoked in Last 30 Days: No Second Hand Smoke Exposure: No Use of substances other than those prescribed or required for medical reasons: No Substance Use Type: Former Substance User, Prescription Drugs and Caffiene Advance Directives: No Advance Directives Information Provided: Yes service: No Current occupational status: disabled Sexual orientation: Decline to Answer Physical Exam Vital Signs: Vital Signs: Last Vital Signs Temp 98.1 F 09/16/23 16:43 Pulse 82 09/16/23 17:55 Resp 18 09/16/23 16:43 BP 139/77 09/16/23 17:55 Pulse Ox 97 09/16/23 16:43 O2 Del Method Room Air 09/16/23 16:43 BMI result Body Mass Index 36.4 Const: Other: Appearance: Alert. Oriented X3. No acute distress. Eyes: Pupils equal, round and reactive to light. ENT: Pharynx normal. Neck: Normal inspection. Neck supple. No lymph nodes noted. No crepitus CVS: Normal heart rate and rhythm. Pulses normal. Normal S1 and S2 Respiratory: No respiratory distress. Breath sounds normal. No Wheezing. No rales Abdomen: Soft and nontender. No rigidity. No distention. Skin: Skin warm and dry. Normal skin color. Normal skin turgor. Extremities: No lower extremity edema. No Lacerations. No Rash Neuro: Oriented X 3. No motor deficit. No sensory deficit. Moving all extremities. No slurred speech. CN 2 through 12 grossly intact Psych: calm, cooperative, very anxious Course Course Course Narrative: All of patient's labs and imaging pending Medications Administered Discontinued Medications Generic Name Dose Route Start Last Admin Trade Name Sancho PRN Reason Stop Dose Admin Acetaminophen 650 mg 09/16/23 17:16 09/16/23 17:33 Acetaminophen 325 Mg Tablet PO 09/16/23 17:17 650 mg ONCE ONE Administration Aspirin 325 mg 09/16/23 17:02 09/16/23 17:22 Aspirin 325 Mg Tablet PO 09/16/23 17:03 Not Given ONCE ONE Medical Decision Making Medical Decision Making [facility] Narrative: -my interpretation of EKG: Normal sinus rhythm, heart rate 82, no ST segment depression or elevation, right bundle-branch block, QTC 518, no EKG changes from previous EKGs -patient given full-dose aspirin -patient received 325 mg of aspirin p.o. per EMS -my interpretation of labs, hematology and chemistry at baseline, troponin negative -patient states he was seen in [facility] last week, diagnosed with hypocalcemia and hypokalemia -records from [facility] where received, patient was discharged on 09/11/2023, patient was admitted for hypocalcemia which he received IV calcium in the emergency room and then for chest pain. It was determined that patient's chest pain is musculoskeletal rather than cardiac or pulmonary -my interpretation of chest x-ray: No consolidations or rib fractures -overall patient feeling better, ready for discharge. Differential Diagnosis Differential Diagnoses: The differential diagnosis associated with the presentation includes (ACS, musculoskeletal pain, costochondritis, pleurisy) Lab Data MDM Lab Attestation statement: I reviewed the patient's lab results. 09/16/23 17:29 09/16/23 17:29 Labs: Lab Results 09/16/23 Range/Units 17:29 WBC 6.4 (4.8-10.8) X10*3/uL RBC 4.18 L (4.60-5.80) X10*6/uL Hgb 12.0 L (14.0-18.0) g/dl Hct 34.8 L (42.0-52.0) % MCV 83.3 (80.0-98.0) fL MCH 28.7 (27.0-33.0) pg MCHC 34.5 (31.0-36.0) g/dl RDW 13.3 (11.0-16.0) % Plt Count 101 L (160-400) X10*3/uL MPV 11.1 (9.4-12.4) fL Immature Gran % (Auto) 0.9 H (0.0-0.4) % Neut % (Auto) 57.9 (45-73) % Lymph % (Auto) 23.8 (20-40) % Vance % (Auto) 10.9 (2-11) % Eos % (Auto) 5.4 H (0-4) % Baso % (Auto) 1.1 (0-2) % Lymph # (Auto) 1.5 (1.2-4.9) X10*3/uL Vance # (Auto) 0.7 (0.1-1.2) X10*3/uL Eos # (Auto) 0.4 (0.0-0.4) X10*3/uL Baso # (Auto) 0.1 (0.0-0.2) X10*3/uL Abs Immat Gran (auto) 0.06 H (0.00-0.03) X10*3/uL Absolute Neuts (auto) 3.7 (2.0-8.3) x10*3/uL Absolute Nucleated RBC 0.000 (0.0-0.012) X10*3/uL Nucleated RBC % (auto) 0.0 (0.0-0.2) /100WBC PT 15.4 H (11.1-13.3) SEC INR 1.3 H (0.9-1.1) Sodium 142 (135-145) mmol/L Potassium 4.4 (3.3-5.1) mmol/L Chloride 110 H (96-108) mmol/L Carbon Dioxide 21 L (22-29) mmol/L Anion Gap 15 (12-20) BUN 17 H (9-16) mg/dL Creatinine 1.28 (0.5-1.4) mg/dL Estim Creat Clear Calc 74.6 Estimated GFR 57 Random Glucose 106 (60-115) mg/dL Calcium 7.9 L (8.4-10.2) mg/dL Magnesium 1.9 (1.6-2.6) mg/dL Total Bilirubin 0.6 (0.0-1.0) mg/dL Direct Bilirubin 0.2 (0.0-0.5) mg/dL AST 18 (5-37) U/L ALT 19 (0-40) U/L Alkaline Phosphatase 78 (39-117) U/L Troponin I High Sens < 2.7 (<3.5-35.0) ng/L Total Protein 6.3 L (6.5-8.0) g/dL Albumin 3.8 (3.5-5.0) g/dL Ethyl Alcohol < 10 mg/dL Independent Interpretation I performed an independent interpretation of an: Plain X-Ray Radiology Impression Discussion of test interpretation with radiology: I have reviewed the radiologist's reading. Radiologist Impression: No focal consolidation. No pneumothorax. Trachea is midline. Left chest wall pacer, stable. Cardiac mediastinal silhouette is stable. No large pleural effusion. Osseous structures are intact. Soft tissues are unremarkable. Discharge Plan Discharge Clinical Impression: Atypical chest pain Patient Disposition: Home, Self-Care Instructions: Chest Pain (ED) Additional Instructions: Please follow-up with your primary care physician tomorrow. If you have any worsening or new symptoms, please return to the emergency room or call 911 Prescriptions: No Action isosorbide mononitrate 30 mg Tablet Extended Release 24 Hr 30 mg PO DAILY Qty: 0 0RF Protocol: Hold for SBP< HOLD for SBP < : 90 sotalol 80 mg tablet 80 mg PO BID hydroxyzine pamoate 50 mg capsule 50 mg PO BID tamsulosin 0.4 mg capsule 0.4 mg PO BEDTIME nitroglycerin 0.4 mg tablet, sublingual 0.4 mg sublingual Q5M PRN (Reason: Chest Pain) albuterol sulfate 90 mcg/actuation HFA aerosol inhaler 2 puff inhalation Q4H PRN (Reason: Shortness Of Breath) ezetimibe 10 mg Tablet 10 mg PO DAILY 7 Days Qty: 7 0RF risperidone 1 mg tablet 1.5 mg PO BEDTIME Xarelto 20 mg tablet 20 mg PO DAILY@1800 levothyroxine 75 mcg tablet 75 mcg PO DAILY@0600 acetaminophen 325 mg tablet 650 mg PO Q4H PRN (Reason: Fever Or Pain) metformin 500 mg tablet 500 mg PO DAILY trazodone 50 mg tablet 25 mg PO BEDTIME ondansetron HCl 4 mg Tablet 4 mg PO Q4H PRN (Reason: nausea and vomitting) sumatriptan succinate 50 mg tablet 50 mg PO BID PRN (Reason: migraines) Rx Instructions: wait 2 hours between doses calcium carbonate [Tums] 300 mg (750 mg) Tablet,Chewable 300 mg PO Q4H PRN (Reason: Dyspepsia) aspirin 81 mg tablet,delayed release (DR/EC) 81 mg PO DAILY tramadol 50 mg tablet 50 mg PO Q6H PRN (Reason: migraines) quetiapine 100 mg tablet 100 mg PO BEDTIME magnesium hydroxide 400 mg/5 mL Suspension 30 ml PO DAILY PRN (Reason: Constipation) gabapentin 300 mg capsule 300 mg PO BID bisacodyl 5 mg Tablet,Delayed Release (Dr/Ec) 10 mg PO BEDTIME PRN (Reason: Constipation) alum-mag hydroxide-simeth [Mylanta Maximum Strength] 400-400-40 mg/5 mL Suspension 10 ml PO Q4H PRN (Reason: Constipation) escitalopram oxalate 20 mg Tablet 20 mg PO DAILY cyclobenzaprine 5 mg tablet 5 mg PO TID PRN (Reason: muscle spasms) melatonin 10 mg Tablet 10 mg PO BEDTIME PRN (Reason: Insomnia) prednisone 20 mg tablet 20 mg PO DAILY Qty: 5 0RF oxycodone 5 mg tablet 5 mg PO BID PRN (Reason: pain) Qty: 4 0RF Rx Instructions: Partial Fill upon patient request. cyclobenzaprine 10 mg tablet 10 mg PO TID PRN (Reason: muscle spasm) Qty: 10 0RF Print Language: Citizen [place]
--- NOTE | 2023-09-16 17:23 | PC.NURSE ---
Patient received 324mg of asa from EMS, provider aware stating to not give ordered dose
[2023-09-16] MEDS: Acetaminophen 325 MG TABLET 650 MG PO (17:33)
[2023-09-16 17:34] LABS: MANUAL DIFF FLAG NO
[2023-09-16 17:39] LABS: Basophils Absolute Auto 0.1 X10*3/uL (0.0-0.2); Basophils Percent Auto 1.1 % (0-2); Eosinophils Absolute Auto 0.4 X10*3/uL (0.0-0.4); Eosinophils Percent Auto 5.4 % (0-4); Hematocrit 34.8 % (42.0-52.0); Imm Gran Abs Auto 0.06 X10*3/uL (0.00-0.03); Imm Gran Pct Auto 0.9 % (0.0-0.4); Lymphocytes Absolute Auto 1.5 X10*3/uL (1.2-4.9); Lymphocytes Percent Auto 23.8 % (20-40); Mean Corpuscular HGB Conc 34.5 g/dl (31.0-36.0); Mean Corpuscular Hemoglobin 28.7 pg (27.0-33.0); Mean Corpuscular Volume 83.3 fL (80.0-98.0); Mean Platelet Volume 11.1 fL (9.4-12.4); Monocytes Absolute Auto 0.7 X10*3/uL (0.1-1.2); Monocytes Percent Auto 10.9 % (2-11); Neutrophils Absolute Auto 3.7 x10*3/uL (2.0-8.3); Neutrophils Percent Auto 57.9 % (45-73); Platelet Count 101 X10*3/uL (160-400); Red Blood Count 4.18 X10*6/uL (4.60-5.80); Red Cell Distribution Width 13.3 % (11.0-16.0); White Blood Count 6.4 X10*3/uL (4.8-10.8)
[2023-09-16 17:44] LABS: INTERNATIONAL NORM RATIO 1.3 (0.9-1.1); Prothrombin Time 15.4 SEC (11.1-13.3)
[2023-09-16 17:53] VITALS: BP 138/78; BP 152/78; PULSE 76
[2023-09-16 17:53] LABS: Alanine Aminotransferase 19 U/L (0-40); Albumin Level 3.8 g/dL (3.5-5.0); Alkaline Phosphatase 78 U/L (39-117); Anion Gap 15 (12-20); Aspartate Amino Transferase 18 U/L (5-37); Bilirubin Direct 0.2 mg/dL (0.0-0.5); Bilirubin Total 0.6 mg/dL (0.0-1.0); Blood Urea Nitrogen 17 mg/dL (9-16); Calcium 7.9 mg/dL (8.4-10.2); Carbon Dioxide 21 mmol/L (22-29); Chloride 110 mmol/L (96-108); Creatinine Clr Calc Pharmacy 74.6; Estimated Glomerular Filt Rate 57; Ethanol < 10 mg/dL; Glucose Random 106 mg/dL (60-115); Magnesium 1.9 mg/dL (1.6-2.6); Potassium 4.4 mmol/L (3.3-5.1); Sodium 142 mmol/L (135-145); Total Protein 6.3 g/dL (6.5-8.0)
[2023-09-16 17:55] VITALS: BP 139/77; PULSE 82
[2023-09-16 18:00] LABS: Troponin-I High Sensitivity < 2.7 ng/L (<3.5-35.0)
--- NOTE | 2023-09-16 18:50 | PC.NURSE ---
Franny called from [facility], aware that patient is up for discharge . Stating someone will pick him up in 30 minutes
[2023-09-16 19:24] VITALS: BP 111/81; PULSE 80; RESP 16; TEMP 36.6; O2SAT 97
[2023-09-16 20:06] VITALS: BP 111/81; PULSE 80; RESP 16; TEMP 36.6; O2SAT 97
== END 2023-09-16 19:50 | disposition home or self-care (01) ==
PROVIDERS: Emergency Provider Emergency Medicine; PCP Internal Medicine
DX: R07.89 Other chest pain (principal); R42 Dizziness and giddiness; I45.10 Unspecified right bundle-branch block; E11.9 Type 2 diabetes mellitus without complications; I10 Essential (primary) hypertension; E78.5 Hyperlipidemia, unspecified; J44.9 Chronic obstructive pulmonary disease, unspecified; F89 Unspecified disorder of psychological development; Z95.810 Presence of automatic (implantable) cardiac defibrillator; Z79.01 Long term (current) use of anticoagulants; Z79.899 Other long term (current) drug therapy; Z79.82 Long term (current) use of aspirin; Z79.84 Long term (current) use of oral hypoglycemic drugs
CPT/HCPCS: 36415; 71045; 80048; 80076; 80307; 83735; 84484; 85025; 85610; 93005; 99284

== ENCOUNTER → 2023-09-16 16:42 | Outpatient (BNV) | payer OTHER, SELFPAY | PROVIDERS: Emergency Provider Emergency Medicine; PCP Internal Medicine; Visit Provider Internal Medicine | DX: I44.0 Atrioventricular block, first degree (principal) | CPT/HCPCS: 93010 ==

== ENCOUNTER 2023-09-30 14:21 | Emergency (ER) | payer OTHER, SELFPAY ==
[2023-09-30] VITALS (9 sets, daily range): BP systolic 92–126; BP diastolic 44–67; PULSE 75–98; RESP 14–20; TEMP 36.1–36.7; O2SAT 96–98; BMI 35.4
--- NOTE | ~2023-09-30 | CT_ITS ---
EXAMINATION: CT HEAD WITHOUT CONTRAST CLINICAL INFORMATION: Headache dizziness COMPARISON: CT head from 12/21/2022 TECHNIQUE: Contiguous axial imaging was performed from the skull base to vertex without intravenous administration of contrast. This CT examination was performed using dose optimization techniques as appropriate, variously including the following: *Automated exposure control *Adjustment of mA and/or kV according to patient size (this includes techniques or standardized protocols for targeted exams where dose is matched to indication/reason for exam; i.e. extremities or head) *Use of iterative reconstruction technique DLP: 853 mGy-cm FINDINGS: There is no evidence of acute intracranial hemorrhage or territorial infarction. Stable hyperdense focus along the left frontal ventricular horn. Chronic white matter small vessel ischemic changes. No abnormal mass effect or midline shift is seen. Warner to white matter differentiation is well preserved. No extra-axial fluid collections are identified. The ventricles are normal in size. There is no abnormal attenuation within the brain parenchyma. The osseous structures and soft tissues are normal. Trace amount of fluid in the right mastoid air cells. Mucosal retention cyst versus polyp left maxillary sinus. The mastoid air cells and visualized portions of the paranasal sinuses are well aerated. CT/CT head/brain wo IV con IMPRESSION: 1. No acute intracranial pathology. 2. Stable hyperdense focus along the left frontal ventricular horn. 3. Chronic white matter small vessel ischemic changes. 4. Trace amount of fluid in the right mastoid air cells.
--- NOTE | 2023-09-30 14:38 | ED_ITS ---
HPI - General Adult General Chief complaint: General Medical Stated complaint: migraines, low back pain Time Seen by Provider: 09/30/23 16:37 Source: patient Mode of arrival: ambulatory Limitations: other (poor historian ) History of Present Illness ED Provider: Yaw LYNCH HPI narrative: 63 yo male with past medical history of COPD, MDD, somatoform disorder, alcohol abuse, ICD and pacemaker placement presenting with headache and blurred vision since this morning no a/c tristan,a. He reports he has had similar episodes in the past but never this severe. The pain is constant, non-throbbing, more severe on the left side. He also reports associated nausea, dizziness (room spinnng) , and photosensitivity. He has taken ibuprofen with no relief of pain. Denies chest pain, SOB, abdominal pain, fevers, chills, recent illness, nausea, vomiting. Patient also complaining of r sided lower abd pain x few weeks sorenesss sensation. No a/c saddle anesthesias, weakness, urinary/bowel incontinence/ retention. Related Data Home Medications ?Medication ?Instructions ?Recorded ?Confirmed albuterol sulfate 90 mcg/actuation 2 puff inhalation Q4H PRN 08/19/22 01/01/23 aerosol inhaler Shortness Of Breath hydroxyzine pamoate 50 mg capsule 50 mg PO BID Anxiety / Nausea 08/19/22 01/01/23 nitroglycerin 0.4 mg sublingual 0.4 mg sublingual Q5M PRN Chest 08/19/22 01/01/23 tablet Pain sotalol 80 mg tablet 80 mg PO BID 08/19/22 01/01/23 tamsulosin 0.4 mg capsule 0.4 mg PO BEDTIME 08/19/22 01/01/23 levothyroxine 75 mcg tablet 75 mcg PO DAILY@0600 09/08/22 01/01/23 risperidone 1 mg tablet 1.5 mg PO BEDTIME 09/08/22 01/01/23 rivaroxaban 20 mg tablet (Xarelto) 20 mg PO DAILY@1800 09/08/22 01/01/23 acetaminophen 325 mg tablet 650 mg PO Q4H PRN Fever Or Pain 01/01/23 01/01/23 aluminum-mag hydroxide-simethicone 10 ml PO Q4H PRN Constipation 01/01/23 01/01/23 400 mg-400 mg-40 mg/5 mL oral susp (Mylanta Maximum Strength) aspirin 81 mg tablet,delayed 81 mg PO DAILY 01/01/23 01/01/23 release bisacodyl 5 mg tablet,delayed 10 mg PO BEDTIME PRN Constipation 01/01/23 01/01/23 release calcium carbonate (Tums) 300 mg PO Q4H PRN Dyspepsia 01/01/23 01/01/23 cyclobenzaprine 5 mg tablet 5 mg PO TID PRN muscle spasms 01/01/23 01/01/23 escitalopram oxalate 20 mg tablet 20 mg PO DAILY 01/01/23 01/01/23 gabapentin 300 mg capsule 300 mg PO BID 01/01/23 01/01/23 magnesium hydroxide 400 mg/5 mL 30 ml PO DAILY PRN Constipation 01/01/23 01/01/23 oral suspension melatonin 10 mg tablet 10 mg PO BEDTIME PRN Insomnia 01/01/23 01/01/23 metformin 500 mg tablet 500 mg PO DAILY 01/01/23 01/01/23 ondansetron HCl 4 mg tablet 4 mg PO Q4H PRN nausea and 01/01/23 01/01/23 vomitting quetiapine 100 mg tablet 100 mg PO BEDTIME 01/01/23 01/01/23 sumatriptan succinate 50 mg tablet 50 mg PO BID PRN migraines 01/01/23 01/01/23 tramadol 50 mg tablet 50 mg PO Q6H PRN migraines 01/01/23 01/01/23 trazodone 50 mg tablet 25 mg PO BEDTIME 01/01/23 01/01/23 Previous Rx's ?Medication ?Instructions ?Recorded isosorbide mononitrate 30 mg 30 mg PO DAILY #0 tabs 09/22/21 tablet,extended release 24 hr ezetimibe 10 mg tablet 10 mg PO DAILY 7 days #7 tabs 08/24/22 oxycodone 5 mg tablet 5 mg PO BID PRN pain #4 tabs 01/01/23 prednisone 20 mg tablet 20 mg PO DAILY #5 tabs 01/01/23 cyclobenzaprine 10 mg tablet 10 mg PO TID PRN muscle spasm #10 08/31/23 tabs acetaminophen 325 mg capsule 325 mg PO Q4H PRN pain #30 caps 09/30/23 (Tylenol) lidocaine 5 % topical patch 1 patch topical DAILY PRN pain #15 09/30/23 ea meclizine 25 mg tablet 25 mg PO DAILY PRN dizziness #14 09/30/23 tabs Allergies Allergy/AdvReac Type Severity Reaction Status Date / Time aripiprazole [From Abilify] Allergy Severe Rash Verified 09/30/23 14:40 peas Allergy Severe HIVES Verified 09/30/23 14:40 atorvastatin [From Lipitor] Allergy Intermediate Hives Verified 09/30/23 14:40 bee pollen [bee stings] AdvReac Severe Anaphylaxis Verified 09/30/23 14:40 Review of Systems 2 Review of Systems: Yes all other systems are reviewed and are negative PMFSH Past Medical History Medical History Somatoform disorder Depression with suicidal ideation Sleep apnea Seizure RBBB Cardiac defibrillator in place Artificial cardiac pacemaker Hyperthyroidism Hyperlipidemia History of ETOH abuse Hypertension GERD (gastroesophageal reflux disease) Diabetes Developmental delay, mild Depression COPD (chronic obstructive pulmonary disease) Asthma Anxiety Surgical History History of cardiac cath Social History Social History Household Members: Other Household Members Other:: 2 roommates Housing: Apartment Housing Other:: Sober House Do you presently have visiting nurse or other home services: No Alcohol intake: former Patient Tobacco Use Status: Never used Tobacco Tobacco use type: Cigarette Smoked in Last 30 Days: No Second Hand Smoke Exposure: No Substance Use Type: Former Substance User, Prescription Drugs and Caffiene Advance Directives: No Do you have a plan to hurt others: No Plan service: No Current occupational status: disabled Sexual orientation: Decline to Answer Physical Exam ED Vital Signs: Vital Signs - 24 hr 09/30/23 14:38 09/30/23 15:11 09/30/23 15:54 Temperature 97.3 F 97.9 F 97.0 F Pulse Rate 92 89 85 Respiratory Rate 20 18 20 Blood Pressure 92/44 L 94/49 L 126/67 Pulse Oximetry 96 97 96 Oxygen Delivery Method Room Air Room Air Room Air 09/30/23 18:11 09/30/23 18:19 09/30/23 19:26 Temperature 97.1 F 98.1 F Pulse Rate 75 98 Respiratory Rate 20 15 19 Blood Pressure 105/50 L 103/65 Pulse Oximetry 97 96 Oxygen Delivery Method Room Air Room Air 09/30/23 20:18 09/30/23 21:49 Temperature Pulse Rate 78 86 Respiratory Rate 14 17 Blood Pressure 106/64 Pulse Oximetry 98 96 Oxygen Delivery Method Room Air Room Air BMI result Body Mass Index 35.4 vss Appearance: Alert.? Oriented X3.? No acute distress.? Head: Normocephalic, atraumatic, no step-offs or deformities. No ttp along temporal artery. Eyes: Pupils equal, round and reactive to light.? Neck: Normal inspection.? Neck supple.? CVS: Normal heart rate and rhythm.? Pulses normal.? Respiratory: No respiratory distress.? Breath sounds normal.? Abdomen: Soft and nontender.? Skin: Skin warm and dry.? Normal skin color.? Normal skin turgor.? Extremities: No lower extremity edema.? No calf ttp. 5/5 strength to bilateral upper and lower extremities Back: no midline pain. + r sided lumbar paraspinous muscle ttp Neuro: Oriented X 3.? No motor deficit.? No sensory deficit. CN 2-12 intact . normal romberg and pronator drift. Normal finger to nose and heel to valenzuela. No saddle anesthesias Course Course Course Narrative: This is a Rapid Medical Examination (RME) performed by Leroy Negron PA-C in triage. Full HPI, ROS, assessment and treatment plan per primary provider in the Main ED. 63 yo male hx of HTN, COPD, GERD, DM, seizure, afib with pacemaker, depression, developmental delay here w/ multiple concerns. reports migraine intermittently since yesterday. taking motrin without improvement. denies injury/ trauma to head. 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 also reports right low back pain only when passing BM or urinating x5days. denies dysuria, hematuria, constipation. last BM this morning. reports loose stools at baseline secondary to metformin. patient well appearing on exam however unstable with standing secondary to dizziness. pt placed in wheelchair. charge aware and patient placed in main ED for further eval Plan: labs ekg, ct ordered Reevaluation(s) Reevaluation #1: CBC with a normocytic anemia at baseline. Chemistry unremarkable no acute findings requiring intervention. Troponin negative. UA without infection. No blood. Unlikely kidney stone for back pain. Head CT no acute intracranial pathology stable hyperdense focus along the left frontal ventricular horn chronic white matter small-vessel ischemic changes. Trace amount of fluid in the right mastoid air cells. Unlikely mastoiditis however. No complaints of pain in this region. Pending re-evaluation of patient and symptom improvement patient will likely be discharged home. Time: 17:43 Reevaluation #2: Patient feeling better. Time: 22:17 Medications Administered Discontinued Medications Generic Name Dose Route Start Last Admin Trade Name Sancho PRN Reason Stop Dose Admin Diazepam 2 mg 09/30/23 17:34 09/30/23 18:10 Diazepam 2 Mg Tablet PO 09/30/23 17:35 2 mg ONCE ONE Administration Diphenhydramine HCl 50 mg 09/30/23 19:56 09/30/23 20:04 Diphenhydramine Hcl 50 Mg/Ml Vial IVPUSH 09/30/23 19:57 50 mg ONCE ONE Administration Lidocaine 1 patch 09/30/23 17:37 09/30/23 18:10 Lidocaine 4 % Patch Adh..Patch TRANSDERMA 09/30/23 17:38 1 patch ONCE ONE Administration Protocol Meclizine HCl 25 mg 09/30/23 17:34 09/30/23 18:09 Meclizine Hcl 25 Mg Tablet PO 09/30/23 17:35 25 mg ONCE ONE Administration Metoclopramide HCl 10 mg 09/30/23 19:56 09/30/23 20:04 Metoclopramide Hcl 10 Mg/2 Ml Vial IVPUSH 09/30/23 19:57 10 mg ONCE ONE Administration Morphine Sulfate 2 mg 09/30/23 17:35 09/30/23 18:11 Morphine Sulfate 2 Mg/Ml Cartridge IVPUSH 09/30/23 17:36 2 mg ONCE ONE Administration Protocol Morphine Sulfate 2 mg 09/30/23 19:56 09/30/23 20:04 Morphine Sulfate 2 Mg/Ml Cartridge IVPUSH 09/30/23 19:57 2 mg ONCE ONE Administration Protocol Medical Decision Making Medical Decision Making [facility] Narrative: 1740 63 yo m presents w/ headache & dizziness X1 day and back pain for the past few weeks . PE r sided lumbar paraspinous muscle ttp. normal neuro. NIHSS-0 Hx and pe concenrinf for complex migrane vs vertigo vs bppv vs headache. Unlikley meningitis, encephalitis, ich, stroke, posterior stroke. Back pain likely msk pain unlikley cord compression, cauda equina, epidural abscess. Plan- labs, imaging, urine, pain control Differential Diagnosis Differential Diagnoses: The differential diagnosis associated with the presentation includes Hx and pe concenrinf for complex migrane vs vertigo vs bppv vs headache. Unlikley meningitis, encephalitis, ich, stroke, posterior stroke. Back pain likely msk pain unlikley cord compression, cauda equina, epidural abscess. Admission/Observation Consideration of admission/observation: Escalation of care including admission/observation considered unlikely Lab Data MDM Lab Attestation statement: I reviewed the patient's lab results. 09/30/23 15:23 09/30/23 15:23 Labs: Lab Results 09/30/23 09/30/23 Range/Units 15:23 15:52 WBC 5.7 (4.8-10.8) X10*3/uL RBC 4.48 L (4.60-5.80) X10*6/uL Hgb 12.6 L (14.0-18.0) g/dl Hct 38.3 L (42.0-52.0) % MCV 85.5 (80.0-98.0) fL MCH 28.1 (27.0-33.0) pg MCHC 32.9 (31.0-36.0) g/dl RDW 13.6 (11.0-16.0) % Plt Count 96 L (160-400) X10*3/uL MPV 11.3 (9.4-12.4) fL Immature Gran % (Auto) 1.4 H (0.0-0.4) % Neut % (Auto) 63.4 (45-73) % Lymph % (Auto) 20.1 (20-40) % Gray % (Auto) 9.4 (2-11) % Eos % (Auto) 4.8 H (0-4) % Baso % (Auto) 0.9 (0-2) % Lymph # (Auto) 1.1 L (1.2-4.9) X10*3/uL Gray # (Auto) 0.5 (0.1-1.2) X10*3/uL Eos # (Auto) 0.3 (0.0-0.4) X10*3/uL Baso # (Auto) 0.1 (0.0-0.2) X10*3/uL Abs Immat Gran (auto) 0.08 H (0.00-0.03) X10*3/uL Absolute Neuts (auto) 3.6 (2.0-8.3) x10*3/uL Absolute Nucleated RBC 0.000 (0.0-0.012) X10*3/uL Nucleated RBC % (auto) 0.0 (0.0-0.2) /100WBC Sodium 142 (135-145) mmol/L Potassium 4.1 (3.3-5.1) mmol/L Chloride 109 H (96-108) mmol/L Carbon Dioxide 24 (22-29) mmol/L Anion Gap 13 (12-20) BUN 16 (9-16) mg/dL Creatinine 1.32 (0.5-1.4) mg/dL Estim Creat Clear Calc 71.4 Estimated GFR 55 Random Glucose 128 H (60-115) mg/dL Calcium 8.0 L (8.4-10.2) mg/dL Magnesium 1.9 (1.6-2.6) mg/dL Total Bilirubin 0.5 (0.0-1.0) mg/dL AST 16 (5-37) U/L ALT 19 (0-40) U/L Alkaline Phosphatase 79 (39-117) U/L Troponin I High Sens 3.3 (<3.5-35.0) ng/L Total Protein 6.3 L (6.5-8.0) g/dL Albumin 3.8 (3.5-5.0) g/dL Lipase 25 (8-78) U/L Urine Color Yellow Urine Appearance Clear Urine pH 5.5 (5.0-9.0) Ur Specific [place] 1.020 (1.005-1.025) Urine Protein Negative (Neg-Trace) mg/dL Urine Glucose (UA) Negative (Negative) mg/dL Urine Ketones Negative (Negative) mg/dL Urine Blood Negative (Negative) Urine Nitrite Negative (Negative) Ur Leukocyte Esterase Trace H (Negative) Urine RBC 0-2 (0-2) /HPF Urine WBC 0-5 (0-5) /HPF Ur Squamous Epith Cells 0-2 (0-2) /HPF Urine Bacteria None Seen (None Seen) Hyaline Casts 0-2 (0-2) /LPF Independent Interpretation I performed an independent interpretation of an: EKG (Vent. Rate : 085 BPM Atrial Rate : 085 BPM P-R Int : 206 ms QRS Dur : 166 ms QT Int : 434 ms P-R-T Axes : 053 102 037 degrees QTc Int : 516 ms Normal sinus rhythm Right bundle branch block Abnormal ECG When compared with ECG of 16-SEP-2023 16:42, No significant change ) and CT Scan (CT/CT head/brain wo IV con IMPRESSION: 1. No acute intracranial pathology. 2. Stable hyperdense focus along the left frontal ventricular horn. 3. Chronic white matter small vessel ischemic changes. 4. Trace amount of fluid in the right mastoid air cells. ) Radiology Impression Discussion of test interpretation with radiology: I have reviewed the radiologist's reading. External Record Review External record reviewed: Inpatient record, Office record, Outpatient record, Prior outpatient labs, Prior outpatient radiology, Primary care record and Outside ED record Critical Care Time Critical Care Time Critical Care Time: Yes Total Critical Care Time: 35 Attestation: I attest to this time spent taking care of the patient, obtaining history, physical, reviewing labs, imaging, speaking to my attending, specialist or hospitalist. Discharge Plan Discharge Clinical Impression: Lumbar paraspinal muscle spasm, Headache, Dizziness Patient Disposition: Home, Self-Care Instructions: Acute Headache (DC), Dizziness (ED), Back Pain (ED) Additional Instructions: Take your medications as prescribed. If you were prescribed antibiotics today, it is important that you take your medication to their entirety, do not skip any doses, do not finish them early. Follow-up with your primary care provider this week. Return to the emergency department with new or worsening symptoms. Such as fevers, chills, chest pain, shortness of breath, nausea, vomiting, dizziness, headache, vision changes, lethargy In case of emergency call 911 Prescriptions: New meclizine 25 mg tablet 25 mg PO DAILY PRN (Reason: dizziness) Qty: 14 0RF lidocaine 5 % adhesive patch,medicated 1 patch topical DAILY PRN (Reason: pain) Qty: 15 0RF Rx Instructions: leave on most painful area for up to 12 hrs acetaminophen [Tylenol] 325 mg capsule 325 mg PO Q4H PRN (Reason: pain) Qty: 30 0RF No Action isosorbide mononitrate 30 mg Tablet Extended Release 24 Hr 30 mg PO DAILY Qty: 0 0RF Protocol: Hold for SBP< HOLD for SBP < : 90 sotalol 80 mg tablet 80 mg PO BID hydroxyzine pamoate 50 mg capsule 50 mg PO BID tamsulosin 0.4 mg capsule 0.4 mg PO BEDTIME nitroglycerin 0.4 mg tablet, sublingual 0.4 mg sublingual Q5M PRN (Reason: Chest Pain) albuterol sulfate 90 mcg/actuation HFA aerosol inhaler 2 puff inhalation Q4H PRN (Reason: Shortness Of Breath) ezetimibe 10 mg Tablet 10 mg PO DAILY 7 Days Qty: 7 0RF risperidone 1 mg tablet 1.5 mg PO BEDTIME Xarelto 20 mg tablet 20 mg PO DAILY@1800 levothyroxine 75 mcg tablet 75 mcg PO DAILY@0600 acetaminophen 325 mg tablet 650 mg PO Q4H PRN (Reason: Fever Or Pain) metformin 500 mg tablet 500 mg PO DAILY trazodone 50 mg tablet 25 mg PO BEDTIME ondansetron HCl 4 mg Tablet 4 mg PO Q4H PRN (Reason: nausea and vomitting) sumatriptan succinate 50 mg tablet 50 mg PO BID PRN (Reason: migraines) Rx Instructions: wait 2 hours between doses calcium carbonate [Tums] 300 mg (750 mg) Tablet,Chewable 300 mg PO Q4H PRN (Reason: Dyspepsia) aspirin 81 mg tablet,delayed release (DR/EC) 81 mg PO DAILY tramadol 50 mg tablet 50 mg PO Q6H PRN (Reason: migraines) quetiapine 100 mg tablet 100 mg PO BEDTIME magnesium hydroxide 400 mg/5 mL Suspension 30 ml PO DAILY PRN (Reason: Constipation) gabapentin 300 mg capsule 300 mg PO BID bisacodyl 5 mg Tablet,Delayed Release (Dr/Ec) 10 mg PO BEDTIME PRN (Reason: Constipation) alum-mag hydroxide-simeth [Mylanta Maximum Strength] 400-400-40 mg/5 mL Suspension 10 ml PO Q4H PRN (Reason: Constipation) escitalopram oxalate 20 mg Tablet 20 mg PO DAILY cyclobenzaprine 5 mg tablet 5 mg PO TID PRN (Reason: muscle spasms) melatonin 10 mg Tablet 10 mg PO BEDTIME PRN (Reason: Insomnia) prednisone 20 mg tablet 20 mg PO DAILY Qty: 5 0RF oxycodone 5 mg tablet 5 mg PO BID PRN (Reason: pain) Qty: 4 0RF Rx Instructions: Partial Fill upon patient request. cyclobenzaprine 10 mg tablet 10 mg PO TID PRN (Reason: muscle spasm) Qty: 10 0RF Referrals: Amari Vyas DO, MD [Primary Care Provider] - 2 days Print Language: Citizen Of [place]
--- NOTE | 2023-09-30 14:42 | ECG_ITS ---
Test Reason : ABD PAIN Blood Pressure : / mmHG Vent. Rate : 085 BPM Atrial Rate : 085 BPM P-R Int : 206 ms QRS Dur : 166 ms QT Int : 434 ms P-R-T Axes : 053 102 037 degrees QTc Int : 516 ms Normal sinus rhythm Right bundle branch block LPFB Abnormal ECG When compared with ECG of 16-SEP-2023 16:42, No significant change was found Referred By: Debo Negron Electronically Signed By:PATO ROMAN MD
[2023-09-30 15:28] LABS: MANUAL DIFF FLAG NO
[2023-09-30 15:29] LABS: Basophils Absolute Auto 0.1 X10*3/uL (0.0-0.2); Basophils Percent Auto 0.9 % (0-2); Eosinophils Absolute Auto 0.3 X10*3/uL (0.0-0.4); Eosinophils Percent Auto 4.8 % (0-4); Hematocrit 38.3 % (42.0-52.0); Hemoglobin 12.6 g/dl (14.0-18.0); Imm Gran Abs Auto 0.08 X10*3/uL (0.00-0.03); Imm Gran Pct Auto 1.4 % (0.0-0.4); Lymphocytes Absolute Auto 1.1 X10*3/uL (1.2-4.9); Lymphocytes Percent Auto 20.1 % (20-40); Mean Corpuscular HGB Conc 32.9 g/dl (31.0-36.0); Mean Corpuscular Hemoglobin 28.1 pg (27.0-33.0); Mean Corpuscular Volume 85.5 fL (80.0-98.0); Mean Platelet Volume 11.3 fL (9.4-12.4); Monocytes Absolute Auto 0.5 X10*3/uL (0.1-1.2); Monocytes Percent Auto 9.4 % (2-11); Neutrophils Absolute Auto 3.6 x10*3/uL (2.0-8.3); Neutrophils Percent Auto 63.4 % (45-73); Red Blood Count 4.48 X10*6/uL (4.60-5.80); Red Cell Distribution Width 13.6 % (11.0-16.0); White Blood Count 5.7 X10*3/uL (4.8-10.8)
[2023-09-30 15:39] LABS: Platelet Count 96 X10*3/uL (160-400)
[2023-09-30 15:51] LABS: Troponin-I High Sensitivity 3.3 ng/L (<3.5-35.0)
[2023-09-30 15:52] LABS: Alanine Aminotransferase 19 U/L (0-40); Albumin Level 3.8 g/dL (3.5-5.0); Alkaline Phosphatase 79 U/L (39-117); Anion Gap 13 (12-20); Aspartate Amino Transferase 16 U/L (5-37); Bilirubin Total 0.5 mg/dL (0.0-1.0); Blood Urea Nitrogen 16 mg/dL (9-16); Carbon Dioxide 24 mmol/L (22-29); Chloride 109 mmol/L (96-108); Creatinine Clr Calc Pharmacy 71.4; Estimated Glomerular Filt Rate 55; Glucose Random 128 mg/dL (60-115); Lipase 25 U/L (8-78); Magnesium 1.9 mg/dL (1.6-2.6); Potassium 4.1 mmol/L (3.3-5.1); Sodium 142 mmol/L (135-145); Total Protein 6.3 g/dL (6.5-8.0)
[2023-09-30 16:06] LABS: Appearance Urine Clear; Color Urine Yellow; Glucose Urine UA Negative (Negative); Leukocyte Esterase Urine Trace (Negative); Nitrite Urine Negative (Negative); PH 5.5 (5.0-9.0); UMIC TRIGGER UACC YES; Urine Blood Negative (Negative); Urine Ketones Negative (Negative); Urine Protein Negative (Neg-Trace)
[2023-09-30 16:18] LABS: Bacteria Urine None Seen (None Seen); Hyaline Casts Urine 0-2 /LPF (0-2); RBC Urine 0-2 /HPF (0-2); Squamous Epithelial Cell Urine 0-2 /HPF (0-2); WBC Urine 0-5 /HPF (0-5)
[2023-09-30] MEDS: Meclizine HCl 25 MG TABLET PO (18:09)
[2023-09-30] MEDS: diazePAM 2 MG TABLET PO (18:10)
[2023-09-30] MEDS: Lidocaine 4 % Patch ADH..PATCH 1 PATCH TRANSDERMA (18:10)
[2023-09-30] MEDS: Morphine Sulfate 2 MG/ML CARTRIDGE IVPUSH ×2 (18:11→20:04)
--- NOTE | 2023-09-30 19:27 | MHC.EDTECH ---
This tech took over care of patient at 1900,hourly rounds and vitals completed,patient is resting comfortably,call wallace in reach
--- NOTE | 2023-09-30 19:37 | MHC.EDTECH ---
Emptied 300MLS of clear yellow urine from urinal.
[2023-09-30] MEDS: diphenhydrAMINE HCL 50 MG/ML VIAL IVPUSH (20:04)
[2023-09-30] MEDS: Metoclopramide HCl 10 MG/2 ML VIAL IVPUSH (20:04)
--- NOTE | 2023-09-30 20:14 | PC.NURSE ---
IV to RAC infiltrated, second IV line established to right hand, 22 g. Pt medicated per MAR for pain, reporting 9/10 right sided lower back pain. Pt requesting admission, states I can't go home in this pain. Primary RN and KANDI aware. VSS. Continue to monitor.
--- NOTE | 2023-09-30 20:40 | PC.NURSE ---
ESTEFANY Blanton - . Matt Gore is a resident at the facility that will unlock the door for patient when he is ready for discharge - . facility will be unable to provide transportation for the patient past 9PM.
--- NOTE | 2023-09-30 22:05 | MHC.EDTECH ---
pt asked for meal and drink, RN approved, pt given tuna and turkey sandwich, diet dorothy allen, pt vital signs checked, no other questions or requests, call within reach.
[2023-10-01 00:03] VITALS: BP 101/65; PULSE 91; RESP 18; TEMP 36.6; O2SAT 96
== END 2023-10-01 00:03 | disposition home or self-care (01) ==
PROVIDERS: Physician Assistant Medical; Emergency Provider Emergency Medicine; PCP Internal Medicine
DX: R51.9 Headache, unspecified (principal); M62.830 Muscle spasm of back; R42 Dizziness and giddiness; R10.31 Right lower quadrant pain
CPT/HCPCS: 36415; 70450; 80053; 81001; 83690; 83735; 84484; 85025; 93005; 96374; 96375; 96376; 99284; 99285; J1200; J2270; J2765

== ENCOUNTER → 2023-09-30 14:42 | Outpatient (BNV) | payer OTHER, SELFPAY | PROVIDERS: Emergency Provider Emergency Medicine; PCP Internal Medicine; Visit Provider Internal Medicine Cardiovascular Disease | DX: I44.5 Left posterior fascicular block (principal) | CPT/HCPCS: 93010 ==

== ENCOUNTER 2023-10-20 15:47 | Emergency (ER) | payer OTHER, SELFPAY ==
--- NOTE | ~2023-10-20 | US_ITS ---
EXAMINATION: US VENOUS ULTRASOUND WITH DOPPLER LOWER EXTREMITY, LEFT CLINICAL INFORMATION: Pain and swelling COMPARISON: None available. TECHNIQUE: Ultrasound of the deep veins is performed from the hip to the calf with compression sonography and color and pulse Doppler assessment. Spectral analysis with color-flow imaging is performed. FINDINGS: There is normal venous compression and respiratory variation and augmented flow. The visualized common femoral vein, superficial femoral vein, profunda femoral vein, popliteal vein, and the trifurcation region shows no evidence of deep venous thrombosis. There is no significant popliteal fossa cyst. Incidental finding was made of the superficial vein thrombosis/thrombophlebitis left posterior thigh. If the patient's symptoms persist, followup ultrasound in 5 days 7 days might be of value to exclude proximal propagation from a non-visualized calf vein. US/US venous duplex [facility] IMPRESSION: * No DVT demonstrated in the left lower extremity. * There is superficial vein thrombosis/thrombophlebitis left posterior thigh.
--- NOTE | 2023-10-20 16:07 | ED_ITS ---
HPI - General Adult General Chief complaint: Extremity Problem Stated complaint: swollen left leg Time Seen by Provider: 10/20/23 17:40 Source: patient Mode of arrival: ambulatory Limitations: no limitations History of Present Illness ED Provider: Maye Fernandes PA-C HPI narrative: Patient is a 63 year old assigned male at with a history of COPD, MDD, somatoform disorder, alcohol abuse, ICD / pacemaker, presenting to the emergency department today with left leg pain. Patient states that he is on Xarelto and is having left leg pain. Patient denies any dizziness, lightheadedness, abdominal pain, nausea, vomiting, fever, chills, blurry vision, double vision, loss of vision, chest pain, difficulty breathing, shortness of breath, back pain, night sweats, pain with urination, increased urinary frequency, increased urinary urgency, blood in his urine or stool, syncope or a near syncopal episode, recent trauma or falls, bowel incontinence, bladder incontinence, or any other comp laints at this time. Onset (ago): hour(s) Location: left and lower extremity Radiation: non-radiation Severity: mild Severity scale (1-10): 4 Quality: dull Pain Consistency: constant Relieving factors: none Exacerbating factors: none Associated symptoms: denies other symptoms Treatments prior to arrival: none Related Data Home Medications ?Medication ?Instructions ?Recorded ?Confirmed albuterol sulfate 90 mcg/actuation 2 puff inhalation Q4H PRN 08/19/22 01/01/23 aerosol inhaler Shortness Of Breath hydroxyzine pamoate 50 mg capsule 50 mg PO BID Anxiety / Nausea 08/19/22 01/01/23 nitroglycerin 0.4 mg sublingual 0.4 mg sublingual Q5M PRN Chest 08/19/2204/25 tablet Pain sotalol 80 mg tablet 80 mg PO BID 08/19/22 01/01/23 tamsulosin 0.4 mg capsule 0.4 mg PO BEDTIME 08/19/22 01/01/23 levothyroxine 75 mcg tablet 75 mcg PO DAILY@0600 09/08/22 01/01/23 risperidone 1 mg tablet 1.5 mg PO BEDTIME 09/08/22 01/01/23 rivaroxaban 20 mg tablet (Xarelto) 20 mg PO DAILY@1800 09/08/22 01/01/23 acetaminophen 325 mg tablet 650 mg PO Q4H PRN Fever Or Pain 01/01/23 01/01/23 aluminum-mag hydroxide-simethicone 10 ml PO Q4H PRN Constipation 01/01/23 01/01/23 400 mg-400 mg-40 mg/5 mL oral susp (Mylanta Maximum Strength) aspirin 81 mg tablet,delayed 81 mg PO DAILY 01/01/23 01/01/23 release bisacodyl 5 mg tablet,delayed 10 mg PO BEDTIME PRN Constipation 01/01/23 01/01/23 release calcium carbonate (Tums) 300 mg PO Q4H PRN Dyspepsia 01/01/23 01/01/23 cyclobenzaprine 5 mg tablet 5 mg PO TID PRN muscle spasms 01/01/23 01/01/23 escitalopram oxalate 20 mg tablet 20 mg PO DAILY 01/01/23 01/01/23 gabapentin 300 mg capsule 300 mg PO BID 01/01/23 01/01/23 magnesium hydroxide 400 mg/5 mL 30 ml PO DAILY PRN Constipation 01/01/23 01/01/23 oral suspension melatonin 10 mg tablet 10 mg PO BEDTIME PRN Insomnia 01/01/23 01/01/23 metformin 500 mg tablet 500 mg PO DAILY 01/01/23 01/01/23 ondansetron HCl 4 mg tablet 4 mg PO Q4H PRN nausea and 01/01/23 01/01/23 vomitting quetiapine 100 mg tablet 100 mg PO BEDTIME 01/01/23 01/01/23 sumatriptan succinate 50 mg tablet 50 mg PO BID PRN migraines 01/01/23 01/01/23 tramadol 50 mg tablet 50 mg PO Q6H PRN migraines 01/01/23 01/01/23 trazodone 50 mg tablet 25 mg PO BEDTIME 01/01/23 01/01/23 Previous Rx's ?Medication ?Instructions ?Recorded isosorbide mononitrate 30 mg 30 mg PO DAILY #0 tabs 09/22/21 tablet,extended release 24 hr ezetimibe 10 mg tablet 10 mg PO DAILY 7 days #7 tabs 08/24/22 oxycodone 5 mg tablet 5 mg PO BID PRN pain #4 tabs 01/01/23 prednisone 20 mg tablet 20 mg PO DAILY #5 tabs 01/01/23 cyclobenzaprine 10 mg tablet 10 mg PO TID PRN muscle spasm #10 08/31/23 tabs acetaminophen 325 mg capsule 325 mg PO Q4H PRN pain #30 caps 09/30/23 (Tylenol) lidocaine 5 % topical patch 1 patch topical DAILY PRN pain #15 09/30/23 ea meclizine 25 mg tablet 25 mg PO DAILY PRN dizziness #14 09/30/23 tabs Allergies Allergy/AdvReac Type Severity Reaction Status Date / Time aripiprazole [From Abilify] Allergy Severe Rash Verified 10/20/23 16:09 peas Allergy Severe HIVES Verified 10/20/23 16:09 atorvastatin [From Lipitor] Allergy Intermediate Hives Verified 10/20/23 16:09 bee pollen [bee stings] AdvReac Severe Anaphylaxis Verified 10/20/23 16:09 Review of Systems Constitutional: Constitutional: Reports no additional constitutional complaints, Denies chills, Denies fever(s) and Denies night sweats Eyes: Eyes: Reports no additional eye complaints, Denies blurry vision, Denies change in vision, Denies diplopia, Denies eye discharge, Denies loss of vision and Denies eye pain ENT: Denies dizziness Cardiovascular: Cardiovascular: Reports no additional cardiovascular complaints, Denies chest pain, Denies lightheadedness, Denies Loss of Consciousness and Denies dyspnea Respiratory: Respiratory: Reports no additional respiratory complaints and Denies dyspnea Gastrointestinal: Gastrointestinal: Reports no additional gastrointestinal complaints, Denies abdominal pain, Denies melena, Denies hematochezia, Denies change in bowel habits and Denies change in stool character Genitourinary: Genitourinary: Reports no additional male genitourinary compla ints, Denies hematuria, Denies oliguria, Denies difficulty urinating, Denies dysuria, Denies urinary frequency, Denies urinary hesitancy, Denies urinary incontinence and Denies urinary urgency Musculoskeletal: Musculoskeletal: Reports no additional musculoskeletal complaints, Denies numbness and Denies tingling Comments: left leg pain Neurologic: Denies dizziness, Denies loss of vision, Denies numbness and Denies tingling Psychiatric: Psychiatric: Reports no additional psychiatric complaints Endocrine: Endocrine: Reports no additional endocrine complaints Hematologic/Lymphatic: Hematologic/Lymphatic: Reports no additional hematologic/lymphatic complaints Allergic/Immunologic: Allergic/Immunologic: Reports no additional allergic/immunologic complaints [facility] Past Medical History Attestation statement: The following information was validated with the patient. Source: old records reviewed and nursing notes reviewed Medical History Somatoform disorder Depression with suicidal ideation Sleep apnea Seizure RBBB Cardiac defibrillator in place Artificial cardiac pacemaker Hyperthyroidism Hyperlipidemia History of ETOH abuse Hypertension GERD (gastroesophageal reflux disease) Diabetes Developmental delay, mild Depression COPD (chronic obstructive pulmonary disease) Asthma Anxiety Surgical History History of cardiac cath Social History Social History Household Members: Other Household Members Other:: 2 roommates Housing: Apartment Housing Other:: Sober House Do you presently have visiting nurse or other home services: No Alcohol intake: former Patient Tobacco Use Status: Never used Tobacco Tobacco use type: Cigarette Second Hand Smoke Exposure: No Substance Use Type: Former Substance User, Prescription Drugs and Caffiene Advance Directives: No Advance Directives Information Provided: No service: No Current occupational status: disabled Sexual orientation: Decline to Answer Physical Exam ED Vital Signs: Vital Signs - 24 hr 10/20/23 16:08 Temperature 97.4 F Pulse Rate 82 Respiratory Rate 16 Blood Pressure 110/73 Pulse Oximetry 97 Oxygen Delivery Method Room Air BMI result Body Mass Index 35.9 Const General: cooperative, no acute distress, alert and awake Nutritional Appearance: well nourished Orientation/consciousness: patient oriented x3 Limitations: no limitations [facility] Head: Yes normal to inspection and Yes atraumatic Ears: hearing grossly normal bilaterally and external ears normal General nose exam: Normal external nose present, no nasal discharge noted and no epistaxis Face and sinus: Yes normal facial exam, No abrasion and No laceration Mouth: Normal oral and palatal mucosa present, no drooling and no muffled voice Eyes General: appearance normal, both eyes and all related structures Periorbital: periorbital findings normal Eyelids: Yes eyelids normal Conjunctivae: conjunctivae normal Pupils: Equal, round and reactive pupils present EOM: EOMs intact bilaterally Neck Neck: Yes normal visual inspection, Yes full ROM and Yes no lymphadenopathy Chest Chest palpation & inspection: normal inspection of the chest Resp Effort & Inspection: normal respiratory effort and able to speak in complete sentences GI Inspection: Yes normal to inspection Neuro General: patient oriented x3 and moves all extremities Cranial nerves: Yes Equal, round and reactive pupils present Cognition (Neuro): normal cognition Extrem General: Yes full ROM and Yes capillary refill normal Psych Appearance: grossly normal Mental Status: mental status grossly normal Affect: normal affect Attitude: cooperative Thought process: Normal thought process present Thought content: Normal thought content present Insight: Good insight present (Psych) Course Course Course Narrative: This is an RME performed by Hadley Khan CNP: Additional HPI, ROS, PE not included below will be deferred to primary provider. Patient is a 63-year-old who presents emergency department evaluation of left lower extremity swelling and pain. Reports pain from the distal lower extremity that radiates up the medial aspect into the thigh and swelling. Pain worse with ambulation. Had difficulty getting on his sneaker today. 2+ DP/PT pulse, mild non pitting edema. reports compliance with his Xarelto, as he has a-fib. Plan: Venous duplex ultrasound Medical Decision Making Medical Decision Making MDM Narrative: Patient is a 63 year old assigned male at with a history of COPD, MDD, somatoform disorder, alcohol abuse, ICD / pacemaker, presenting to the emergency department today with left leg pain. Patient's physical exam was unremarkable. Patient's left leg US showed a superficial vein thrombosis/thrombophlebitis. I explained my physical exam findings as well as all test results to the patient. I answered all questions asked by the patient. I stressed the importance of the patient taking his medication as directed (either prescribed or as the over the counter packaging recommends). I stressed the importance of the patient following up with [his/her/their] primary care provider. I stressed the importance of the patient returning to the emergency department immediately if his symptoms were to worsen or if he were to develop any dizziness, shortness of breath, difficulty breathing, chest pain, blurry vision, loss of vision, nausea, vomiting, abdominal pain, fever, chills, back pain, or any other complaints. Patient verbalized agreement and understanding with this treatment plan and discharge. Differential Diagnosis Differential Diagnoses: The differential diagnosis associated with the presentation includes DVT Thrombophlebitis Admission/Observation Consideration of admission/observation: Escalation of care including admission/observation considered Patient would have been admitted to the hospital had his work up had any findings where hospital admission was appropriate and his clinical presentation warranted hospital admission. Independent Interpretation I performed an independent interpretation of an: Ultrasound Interpretation: My interpretation is in agreement with the radiologist's impression of this imaging study. EXAMINATION: US VENOUS ULTRASOUND WITH DOPPLER LOWER EXTREMITY, LEFT CLINICAL INFORMATION: Pain and swelling COMPARISON: None available. TECHNIQUE: Ultrasound of the deep veins is performed from the hip to the calf with compression sonography and color and pulse Doppler assessment. Spectral analysis with color-flow imaging is performed. FINDINGS: There is normal venous compression and respiratory variation and augmented flow. The visualized common femoral vein, superficial femoral vein, profunda femoral vein, popliteal vein, and the trifurcation region shows no evidence of deep venous thrombosis. There is no significant popliteal fossa cyst. Incidental finding was made of the superficial vein thrombosis/thrombophlebitis left posterior thigh. If the patient's symptoms persist, followup ultrasound in 5 days 7 days might be of value to exclude proximal propagation from a non-visualized calf vein. US/US venous duplex [facility] IMPRESSION: * No DVT demonstrated in the left lower extremity. * There is superficial vein thrombosis/thrombophlebitis left posterior thigh. Dictated By: Cadence Lugo MD Signed By: Electronically signed by Cadence Lugo MD 10/20/23 8398 Radiology Impression Discussion of test interpretation with radiology: I have reviewed the radio logist's reading. Discharge Plan Discharge Clinical Impression: Thrombophlebitis Patient Disposition: Home, Self-Care Instructions: Superficial Thrombophlebitis (ED) Additional Instructions: Follow up with your primary care provider. Return to the emergency department immediately if your symptoms worsen or if you develop any dizziness, shortness of breath, difficulty breathing, chest pain, blurry vision, loss of vision, nausea, vomiting, abdominal pain, fever, chills, back pain, or any other complaints. Prescriptions: No Action isosorbide mononitrate 30 mg Tablet Extended Release 24 Hr 30 mg PO DAILY Qty: 0 0RF Protocol: Hold for SBP< HOLD for SBP < : 90 sotalol 80 mg tablet 80 mg PO BID hydroxyzine pamoate 50 mg capsule 50 mg PO BID tamsulosin 0.4 mg capsule 0.4 mg PO BEDTIME nitroglycerin 0.4 mg tablet, sublingual 0.4 mg sublingual Q5M PRN (Reason: Chest Pain) albuterol sulfate 90 mcg/actuation HFA aerosol inhaler 2 puff inhalation Q4H PRN (Reason: Shortness Of Breath) ezetimibe 10 mg Tablet 10 mg PO DAILY 7 Days Qty: 7 0RF risperidone 1 mg tablet 1.5 mg PO BEDTIME Xarelto 20 mg tablet 20 mg PO DAILY@1800 levothyroxine 75 mcg tablet 75 mcg PO DAILY@0600 acetaminophen 325 mg tablet 650 mg PO Q4H PRN (Reason: Fever Or Pain) metformin 500 mg tablet 500 mg PO DAILY trazodone 50 mg tablet 25 mg PO BEDTIME ondansetron HCl 4 mg Tablet 4 mg PO Q4H PRN (Reason: nausea and vomitting) sumatriptan succinate 50 mg tablet 50 mg PO BID PRN (Reason: migraines) Rx Instructions: wait 2 hours between doses calcium carbonate [Tums] 300 mg (750 mg) Tablet,Chewable 300 mg PO Q4H PRN (Reason: Dyspepsia) aspirin 81 mg tablet,delayed release (DR/EC) 81 mg PO DAILY tramadol 50 mg tablet 50 mg PO Q6H PRN (Reason: migraines) quetiapine 100 mg tablet 100 mg PO BEDTIME magnesium hydroxide 400 mg/5 mL Suspension 30 ml PO DAILY PRN (Reason: Constipation) gabapentin 300 mg capsule 300 mg PO BID bisacodyl 5 mg Tablet,Delayed Release (Dr/Ec) 10 mg PO BEDTIME PRN (Reason: Constipation) alum-mag hydroxide-simeth [Mylanta Maximum Strength] 400-400-40 mg/5 mL Suspension 10 ml PO Q4H PRN (Reason: Constipation) escitalopram oxalate 20 mg Tablet 20 mg PO DAILY cyclobenzaprine 5 mg tablet 5 mg PO TID PRN (Reason: muscle spasms) melatonin 10 mg Tablet 10 mg PO BEDTIME PRN (Reason: Insomnia) prednisone 20 mg tablet 20 mg PO DAILY Qty: 5 0RF oxycodone 5 mg tablet 5 mg PO BID PRN (Reason: pain) Qty: 4 0RF Rx Instructions: Partial Fill upon patient request. cyclobenzaprine 10 mg tablet 10 mg PO TID PRN (Reason: muscle spasm) Qty: 10 0RF meclizine 25 mg tablet 25 mg PO DAILY PRN (Reason: dizziness) Qty: 14 0RF lidocaine 5 % adhesive patch,medicated 1 patch topical DAILY PRN (Reason: pain) Qty: 15 0RF Rx Instructions: leave on most painful area for up to 12 hrs acetaminophen [Tylenol] 325 mg capsule 325 mg PO Q4H PRN (Reason: pain) Qty: 30 0RF Referrals: Amari Vyas DO, MD [Primary Care Provider] - Print Language: Kazakh
[2023-10-20 16:08] VITALS: BP 110/73; PULSE 82; RESP 16; TEMP 36.3; O2SAT 97; BMI 35.9
[2023-10-20 18:03] VITALS: BP 110/73; PULSE 82; RESP 16; TEMP 36.3; O2SAT 97
== END 2023-10-20 18:07 | disposition home or self-care (01) ==
PROVIDERS: Emergency Provider Emergency Medicine; PCP Internal Medicine
DX: I80.02 Phlebitis and thrombophlebitis of superficial vessels of left lower extremity (principal); E11.9 Type 2 diabetes mellitus without complications; I10 Essential (primary) hypertension; J44.9 Chronic obstructive pulmonary disease, unspecified; Z95.0 Presence of cardiac pacemaker; Z79.01 Long term (current) use of anticoagulants; Z79.82 Long term (current) use of aspirin; Z79.899 Other long term (current) drug therapy; Z79.84 Long term (current) use of oral hypoglycemic drugs
CPT/HCPCS: 93971; 99282; 99284

== ENCOUNTER 2023-11-15 13:28 | Outpatient (REF) | payer OTHER, SELFPAY ==
[2023-11-15 13:45] LABS: Appearance Urine Clear; Color Urine Yellow; Glucose Urine UA Negative (Negative); Leukocyte Esterase Urine Negative (Negative); Nitrite Urine Negative (Negative); PH 5.5 (5.0-9.0); Specific Gravity - Urine 1.015 (1.005-1.025); Urine Blood Negative (Negative); Urine Ketones Negative (Negative); Urine Protein Negative (Neg-Trace)
[2023-11-15 13:48] LABS: Bacteria Urine None Seen (None Seen); Hyaline Casts Urine 0-2 /LPF (0-2); RBC Urine 0-2 /HPF (0-2); Squamous Epithelial Cell Urine 0-2 /HPF (0-2); WBC Urine 0-5 /HPF (0-5)
[2023-11-15 14:15] LABS: Creatinine Urine 88.58 mg/dL; Microalbumin Urine < 5.0 mg/L
[2023-11-15 16:23] LABS: CT PCR NOT DETECTED (Not Detect.); NG PCR NOT DETECTED (Not Detect.)
== END 2023-11-15 13:29 | disposition home or self-care (01) ==
LOC: HO.HHCLNP 13:28
PROVIDERS: Visit Provider Student in an Organized Health Care Education/Training Program
DX: Z00.00 Encounter for general adult medical examination without abnormal findings (principal); R30.0 Dysuria
CPT/HCPCS: 81001; 82043; 82570; 87491; 87591

== ENCOUNTER 2023-11-24 09:16 | Emergency (ER) | payer OTHER, SELFPAY ==
[2023-11-24] VITALS (11 sets, daily range): BP systolic 91–149; BP diastolic 55–81; PULSE 61–76; RESP 14–20; TEMP 36.8–37.4; O2SAT 94–100; BMI 35.6
--- NOTE | ~2023-11-24 | XR_ITS ---
EXAMINATION: XR CHEST CLINICAL INFORMATION: Chest pain. COMPARISON: Chest radiograph 09/16/2023. TECHNIQUE: Frontal view of the chest was obtained. FINDINGS: Left-sided pacer/AICD with leads projecting over the expected location of the right atrium, right ventricle and coronary sinus. Looping of one of the loops at the level of the left axillary region is unchanged. Stable prominence of the cardiomediastinal silhouette. No focal consolidation, pleural effusion or pneumothorax. No acute osseous findings. XR/XR chest 1V IMPRESSION: 1. Stable positioning of a left-sided pacer/AICD with similar looping of one of the leads at the level of the left axillary region, correlate with appropriate function. 2. No acute cardiopulmonary findings. Electronically signed by: Sowmya De Leon MD 11/24/2023 11:09 AM EDT
--- NOTE | 2023-11-24 09:19 | ECG_ITS ---
Test Reason : CHEST PAIN Blood Pressure : / mmHG Vent. Rate : 064 BPM Atrial Rate : 064 BPM P-R Int : 224 ms QRS Dur : 168 ms QT Int : 472 ms P-R-T Axes : 075 108 066 degrees QTc Int : 486 ms Sinus rhythm with 1st degree A-V block Right bundle branch block Abnormal ECG When compared with ECG of 30-SEP-2023 15:45, No significant change was found Referred By: Ralph Armas Electronically Signed By:CHET BAHENA
--- NOTE | 2023-11-24 09:26 | ED_ITS ---
HPI - General Adult General Chief complaint: Chest Pain Stated complaint: CP L SIDE Time Seen by Provider: 11/24/23 09:18 Source: patient Mode of arrival: ambulatory Limitations: no limitations History of Present Illness ED Provider: Yaw LYNCH HPI narrative: 63-year-old male presents to the emergency department with substernal chest pain nonradiating, started this morning, he reports pain was so severe that at 1 point he threw himself onto the ground because he felt like he was going to collapse. He is now having a boring pain in the substernal region. He denies associated shortness of breath. There was no trauma with the fall. He did not hit his head or lose consciousness. He reports this feels like his typical chest pain. Related Data Home Medications ?Medication ?Instructions ?Recorded ?Confirmed albuterol sulfate 90 mcg/actuation 2 puff inhalation Q4H PRN 08/19/22 01/01/23 aerosol inhaler Shortness Of Breath hydroxyzine pamoate 50 mg capsule 50 mg PO BID Anxiety / Nausea 08/19/22 01/01/23 nitroglycerin 0.4 mg sublingual 0.4 mg sublingual Q5M PRN Chest 08/19/22 01/01/23 tablet Pain sotalol 80 mg tablet 80 mg PO BID 08/19/22 01/01/23 tamsulosin 0.4 mg capsule 0.4 mg PO BEDTIME 08/19/22 01/01/23 levothyroxine 75 mcg tablet 75 mcg PO DAILY@0600 09/08/22 01/01/23 risperidone 1 mg tablet 1.5 mg PO BEDTIME 09/08/22 01/01/23 rivaroxaban 20 mg tablet (Xarelto) 20 mg PO DAILY@1800 09/08/22 01/01/23 acetaminophen 325 mg tablet 650 mg PO Q4H PRN Fever Or Pain 01/01/23 01/01/23 aluminum-mag hydroxide-simethicone 10 ml PO Q4H PRN Constipation 01/01/23 01/01/23 400 mg-400 mg-40 mg/5 mL oral susp (Mylanta Maximum Strength) aspirin 81 mg tablet,delayed 81 mg PO DAILY 01/01/23 01/01/23 release bisacodyl 5 mg tablet,delayed 10 mg PO BEDTIME PRN Constipation 01/01/23 01/01/23 release calcium carbonate (Tums) 300 mg PO Q4H PRN Dyspepsia 01/01/23 01/01/23 cyclobenzaprine 5 mg tablet 5 mg PO TID PRN muscle spasms 01/01/23 01/01/23 escitalopram oxalate 20 mg tablet 20 mg PO DAILY 01/01/23 01/01/23 gabapentin 300 mg capsule 300 mg PO BID 01/01/23 01/01/23 magnesium hydroxide 400 mg/5 mL 30 ml PO DAILY PRN Constipation 01/01/23 01/01/23 oral suspension melatonin 10 mg tablet 10 mg PO BEDTIME PRN Insomnia 01/01/23 01/01/23 metformin 500 mg tablet 500 mg PO DAILY 01/01/23 01/01/23 ondansetron HCl 4 mg tablet 4 mg PO Q4H PRN nausea and 01/01/23 01/01/23 vomitting quetiapine 100 mg tablet 100 mg PO BEDTIME 01/01/23 01/01/23 sumatriptan succinate 50 mg tablet 50 mg PO BID PRN migraines 01/01/23 01/01/23 tramadol 50 mg tablet 50 mg PO Q6H PRN migraines 01/01/23 01/01/23 trazodone 50 mg tablet 25 mg PO BEDTIME 01/01/23 01/01/23 Previous Rx's ?Medication ?Instructions ?Recorded isosorbide mononitrate 30 mg 30 mg PO DAILY #0 tabs 09/22/21 tablet,extended release 24 hr ezetimibe 10 mg tablet 10 mg PO DAILY 7 days #7 tabs 08/24/22 oxycodone 5 mg tablet 5 mg PO BID PRN pain #4 tabs 01/01/23 prednisone 20 mg tablet 20 mg PO DAILY #5 tabs 01/01/23 cyclobenzaprine 10 mg tablet 10 mg PO TID PRN muscle spasm #10 08/31/23 tabs acetaminophen 325 mg capsule 325 mg PO Q4H PRN pain #30 caps 09/30/23 (Tylenol) lidocaine 5 % topical patch 1 patch topical DAILY PRN pain #15 09/30/23 ea meclizine 25 mg tablet 25 mg PO DAILY PRN dizziness #14 09/30/23 tabs Allergies Allergy/AdvReac Type Severity Reaction Status Date / Time aripiprazole [From [facility]] Allergy Severe Rash Verified 11/24/23 09:47 peas Allergy Severe HIVES Verified 11/24/23 09:47 atorvastatin [From Lipitor] Allergy Intermediate Hives Verified 11/24/23 09:47 bee pollen [bee stings] AdvReac Severe Anaphylaxis Verified 11/24/23 09:47 Review of Systems 2 Review of Systems: Yes all other systems are reviewed and are negative PMFSH Past Medical History Attestation statement: The following information was validated with the patient. Source: old records reviewed and nursing notes reviewed Medical History Somatoform disorder Depression with suicidal ideation Sleep apnea Seizure RBBB Cardiac defibrillator in place Artificial cardiac pacemaker Hyperthyroidism Hyperlipidemia History of ETOH abuse Hypertension GERD (gastroesophageal reflux disease) Diabetes Developmental delay, mild Depression COPD (chronic obstructive pulmonary disease) Asthma Anxiety Surgical History History of cardiac cath Social History Social History Household Members: Other Household Members Other:: 2 roommates Housing: Apartment Housing Other:: Sober House Do you presently have visiting nurse or other home services: No Alcohol intake: former Patient Tobacco Use Status: Never used Tobacco Tobacco use type: Cigarette Smoked in Last 30 Days: No Second Hand Smoke Exposure: No Use of substances other than those prescribed or required for medical reasons: No Substance Use Type: Former Substance User, Prescription Drugs and Caffiene Advance Directives: No Advance Directives Information Provided: Yes Do you have a plan to hurt others: No Plan service: No Current occupational status: disabled Sexual orientation: Decline to Answer Physical Exam ED Vital Signs: Vital Signs - 24 hr 11/24/23 09:38 11/24/23 09:54 11/24/23 10:08 Temperature 99.3 F 99.3 F 98.3 F Pulse Rate 64 64 61 Respiratory Rate 14 14 16 Blood Pressure 93/59 L 93/59 L 91/55 L Pulse Oximetry 96 96 94 Oxygen Delivery Method Room Air Room Air Room Air 11/24/23 12:18 11/24/23 13:33 11/24/23 13:33 Temperature 98.5 F Pulse Rate 67 66 66 Respiratory Rate 16 Blood Pressure 122/74 117/65 130/75 Pulse Oximetry 97 Oxygen Delivery Method Room Air 11/24/23 13:34 11/24/23 14:17 11/24/23 15:53 Temperature 98.3 F Pulse Rate 66 68 73 Respiratory Rate 16 20 Blood Pressure 94/61 129/64 149/81 H Pulse Oximetry 94 100 Oxygen Delivery Method Room Air Room Air 11/24/23 16:00 11/24/23 16:01 11/24/23 16:01 Temperature Pulse Rate 72 71 73 Respiratory Rate Blood Pressure 135/75 138/73 133/71 Pulse Oximetry Oxygen Delivery Method BMI result Body Mass Index 35.6 vss Appearance: Alert.? Oriented X3.? No acute distress.? Head: Normocephalic, atraumatic, no step-offs or deformities Eyes: Pupils equal, round and reactive to light.? ENT: Pharynx normal.? Neck: Normal inspection.? Neck supple.? CVS: Normal heart rate and rhythm.? Pulses normal.? Respiratory: No respiratory distress.? Breath sounds normal.? Abdomen: Soft and nontender.? Skin: Skin warm and dry.? Normal skin color.? Normal skin turgor.? Extremities: No lower extremity edema.? No calf ttp. 5/5 strength to bilateral upper and lower extremities Neuro: Oriented X 3.? No motor deficit.? No sensory deficit. CN 2-12 intact Course Reevaluation(s) Reevaluation #1: CBC with normocytic anemia at baseline. Chemistry with pain with elevated BUN of 26, creatinine 1.21, IV fluids ordered for hydration. Troponin negative x2 with nonischemic EKGs. BNP 119 however no signs of fluid overload on exam no crackles auscultated. Patient did have positive orthostatic am hydrating and will repeat ortho stats at a later time. Sign out to [facility] [employer] Time: 15:56 Reevaluation #2: Orthostatic vital signs much better. Patient feeling better. No more chest pain or shortness of breath. Not feeling near syncopal. Feeling back to baseline. Will have him follow-up outpatient with cardiology will have him hydrate at home. Educated patient on diagnosis and treatment plan, answered all question, patient verbalizes understanding. At this time patient will be discharged home, advised to return with new or worsening symptoms. Educated on worrisome signs and symptoms and when to return. At this time I feel comfortable discharge home. Time: 16:11 Medications Administered Discontinued Medications Generic Name Dose Route Start Last Admin Trade Name Sancho PRN Reason Stop Dose Admin Acetaminophen 975 mg 11/24/23 10:19 11/24/23 11:09 Acetaminophen 325 Mg Tablet PO 11/24/23 10:20 975 mg ONCE ONE Administration Sodium Chloride 1,000 mls @ 999 mls/hr 11/24/23 11:00 11/24/23 12:54 Ns IV 11/24/23 12:00 Infused .Q1H1M RADHA Infusion Sodium Chloride 1,000 mls @ 999 mls/hr 11/24/23 13:45 11/24/23 15:45 Ns IV 11/24/23 14:45 Infused .Q1H1M RADHA Infusion Morphine Sulfate 4 mg 11/24/23 12:52 11/24/23 13:04 Morphine Sulfate 4 Mg/Ml Cartridge IVPUSH 11/24/23 12:53 4 mg ONCE ONE Administration Protocol Medical Decision Making Medical Decision Making [facility] Narrative: 0928 63-year-old male presents with chest pain that started this morning he threw himself on the ground due to pain. No head strike or loss of consciousness. Physical exam benign. Patient appears calm and comfortable. History and physical exam concerning for anxiety/noncardiac related chest pain. Unlikely ACS, PE, acute respiratory distress, dissection. Plan labs, imaging. Differential Diagnosis Differential Diagnoses: The differential diagnosis associated with the presentation includes History and physical exam concerning for anxiety/noncardiac related chest pain. Unlikely ACS, PE, acute respiratory distress, dissection. Admission/Observation Consideration of admission/observation: Escalation of care including admission/observation considered Possible Lab Data [facility] Lab Attestation statement: I reviewed the patient's lab results. 11/24/23 10:21 11/24/23 10:21 Labs: Lab Results 11/24/23 11/24/23 Range/Units 10:21 15:11 WBC 5.2 (4.8-10.8) X10*3/uL RBC 4.13 L (4.60-5.80) X10*6/uL Hgb 12.0 L (14.0-18.0) g/dl Hct 35.7 L (42.0-52.0) % MCV 86.4 (80.0-98.0) fL MCH 29.1 (27.0-33.0) pg MCHC 33.6 (31.0-36.0) g/dl RDW 13.8 (11.0-16.0) % Plt Count 81 L (160-400) X10*3/uL MPV 11.2 (9.4-12.4) fL Immature Gran % (Auto) 1.7 H (0.0-0.4) % Neut % (Auto) 60.0 (45-73) % Lymph % (Auto) 19.6 L (20-40) % [place] % (Auto) 9.6 (2-11) % Eos % (Auto) 7.9 H (0-4) % Baso % (Auto) 1.2 (0-2) % Lymph # (Auto) 1.0 L (1.2-4.9) X10*3/uL [place] # (Auto) 0.5 (0.1-1.2) X10*3/uL Eos # (Auto) 0.4 (0.0-0.4) X10*3/uL Baso # (Auto) 0.1 (0.0-0.2) X10*3/uL Abs Immat Gran (auto) 0.09 H (0.00-0.03) X10*3/uL Absolute Neuts (auto) 3.1 (2.0-8.3) x10*3/uL Absolute Nucleated RBC 0.000 (0.0-0.012) X10*3/uL Nucleated RBC % (auto) 0.0 (0.0-0.2) /100WBC Sodium 142 (135-145) mmol/L Potassium 5.1 D (3.3-5.1) mmol/L Chloride 112 H (96-108) mmol/L Carbon Dioxide 25 (22-29) mmol/L Anion Gap 10 L (12-20) BUN 26 H (9-16) mg/dL Creatinine 1.21 (0.5-1.4) mg/dL Estim Creat Clear Calc 78.1 Estimated GFR > 60 Random Glucose 133 H (60-115) mg/dL Calcium 8.1 L (8.4-10.2) mg/dL Magnesium 1.9 (1.6-2.6) mg/dL Total Bilirubin 0.5 (0.0-1.0) mg/dL AST 13 (5-37) U/L ALT 12 (0-40) U/L Alkaline Phosphatase 67 (39-117) U/L Troponin I High Sens < 2.7 < 2.7 (<3.5-35.0) ng/L B-Natriuretic Peptide 119 H (<100) pg/mL Total Protein 5.9 L (6.5-8.0) g/dL Albumin 3.6 (3.5-5.0) g/dL Independent Interpretation I performed an independent interpretation of an: EKG (Vent. Rate : 064 BPM Atrial Rate : 064 BPM P-R Int : 224 ms QRS Dur : 168 ms QT Int : 472 ms P-R-T Axes : 075 108 066 degrees QTc Int : 486 ms Sinus rhythm with 1st degree A-V block Right bundle branch block Abnormal ECG When compared with ECG of 30-SEP-2023 15:45, No ) and Plain X-Ray ( XR/XR chest 1V IMPRESSION: 1. Stable positioning of a left-sided pacer/AICD with similar looping of one of the leads at the level of the left axillary region, correlate with appropriate function. 2. No acute cardiopulmonary findings.) Radiology Impression Discussion of test interpretation with radiology: I have reviewed the radiologist's reading. Critical Care Time Critical Care Time Critical Care Time: Yes Total Critical Care Time: 35 Attestation: I attest to this time spent taking care of the patient, obtaining history, physical, reviewing labs, imaging, fluid hydration for orthostatic hypotension Discharge Plan Discharge Clinical Impression: Chest pain, Orthostatic hypotension Patient Disposition: Home, Self-Care Instructions: Chest Pain (ED), Hypotension (ED) Additional Instructions: Take your medications as prescribed. If you were prescribed antibiotics today, it is important that you take your medication to their entirety, do not skip any doses, do not finish them early. Follow-up with your primary care provider this week. Return to the emergency department with new or worsening symptoms. Such as fevers, chills, chest pain, shortness of breath, nausea, vomiting, dizziness, headache, vision changes, lethargy In case of emergency call 911 Drink plenty of fluids Prescriptions: No Action isosorbide mononitrate 30 mg Tablet Extended Release 24 Hr 30 mg PO DAILY Qty: 0 0RF Protocol: Hold for SBP< HOLD for SBP < : 90 sotalol 80 mg tablet 80 mg PO BID hydroxyzine pamoate 50 mg capsule 50 mg PO BID tamsulosin 0.4 mg capsule 0.4 mg PO BEDTIME nitroglycerin 0.4 mg tablet, sublingual 0.4 mg sublingual Q5M PRN (Reason: Chest Pain) albuterol sulfate 90 mcg/actuation HFA aerosol inhaler 2 puff inhalation Q4H PRN (Reason: Shortness Of Breath) ezetimibe 10 mg Tablet 10 mg PO DAILY 7 Days Qty: 7 0RF risperidone 1 mg tablet 1.5 mg PO BEDTIME Xarelto 20 mg tablet 20 mg PO DAILY@1800 levothyroxine 75 mcg tablet 75 mcg PO DAILY@0600 acetaminophen 325 mg tablet 650 mg PO Q4H PRN (Reason: Fever Or Pain) metformin 500 mg tablet 500 mg PO DAILY trazodone 50 mg tablet 25 mg PO BEDTIME ondansetron HCl 4 mg Tablet 4 mg PO Q4H PRN (Reason: nausea and vomitting) sumatriptan succinate 50 mg tablet 50 mg PO BID PRN (Reason: migraines) Rx Instructions: wait 2 hours between doses calcium carbonate [Tums] 300 mg (750 mg) Tablet,Chewable 300 mg PO Q4H PRN (Reason: Dyspepsia) aspirin 81 mg tablet,delayed release (DR/EC) 81 mg PO DAILY tramadol 50 mg tablet 50 mg PO Q6H PRN (Reason: migraines) quetiapine 100 mg tablet 100 mg PO BEDTIME magnesium hydroxide 400 mg/5 mL Suspension 30 ml PO DAILY PRN (Reason: Constipation) gabapentin 300 mg capsule 300 mg PO BID bisacodyl 5 mg Tablet,Delayed Release (Dr/Ec) 10 mg PO BEDTIME PRN (Reason: Constipation) alum-mag hydroxide-simeth [Mylanta Maximum Strength] 400-400-40 mg/5 mL Suspension 10 ml PO Q4H PRN (Reason: Constipation) escitalopram oxalate 20 mg Tablet 20 mg PO DAILY cyclobenzaprine 5 mg tablet 5 mg PO TID PRN (Reason: muscle spasms) melatonin 10 mg Tablet 10 mg PO BEDTIME PRN (Reason: Insomnia) prednisone 20 mg tablet 20 mg PO DAILY Qty: 5 0RF oxycodone 5 mg tablet 5 mg PO BID PRN (Reason: pain) Qty: 4 0RF Rx Instructions: Partial Fill upon patient request. cyclobenzaprine 10 mg tablet 10 mg PO TID PRN (Reason: muscle spasm) Qty: 10 0RF meclizine 25 mg tablet 25 mg PO DAILY PRN (Reason: dizziness) Qty: 14 0RF lidocaine 5 % adhesive patch,medicated 1 patch topical DAILY PRN (Reason: pain) Qty: 15 0RF Rx Instructions: leave on most painful area for up to 12 hrs acetaminophen [Tylenol] 325 mg capsule 325 mg PO Q4H PRN (Reason: pain) Qty: 30 0RF Referrals: [facility] [Provider Group] - 1 day Print Language: French
[2023-11-24 10:25] LABS: MANUAL DIFF FLAG NO
[2023-11-24 10:26] LABS: Basophils Absolute Auto 0.1 X10*3/uL (0.0-0.2); Basophils Percent Auto 1.2 % (0-2); Eosinophils Absolute Auto 0.4 X10*3/uL (0.0-0.4); Eosinophils Percent Auto 7.9 % (0-4); Hematocrit 35.7 % (42.0-52.0); Imm Gran Abs Auto 0.09 X10*3/uL (0.00-0.03); Imm Gran Pct Auto 1.7 % (0.0-0.4); Lymphocytes Percent Auto 19.6 % (20-40); Mean Corpuscular HGB Conc 33.6 g/dl (31.0-36.0); Mean Corpuscular Hemoglobin 29.1 pg (27.0-33.0); Mean Corpuscular Volume 86.4 fL (80.0-98.0); Mean Platelet Volume 11.2 fL (9.4-12.4); Monocytes Absolute Auto 0.5 X10*3/uL (0.1-1.2); Monocytes Percent Auto 9.6 % (2-11); Neutrophils Absolute Auto 3.1 x10*3/uL (2.0-8.3); Platelet Count 81 X10*3/uL (160-400); Red Blood Count 4.13 X10*6/uL (4.60-5.80); Red Cell Distribution Width 13.8 % (11.0-16.0); White Blood Count 5.2 X10*3/uL (4.8-10.8)
[2023-11-24 10:43] LABS: Alanine Aminotransferase 12 U/L (0-40); Albumin Level 3.6 g/dL (3.5-5.0); Alkaline Phosphatase 67 U/L (39-117); Anion Gap 10 (12-20); Aspartate Amino Transferase 13 U/L (5-37); Bilirubin Total 0.5 mg/dL (0.0-1.0); Blood Urea Nitrogen 26 mg/dL (9-16); Calcium 8.1 mg/dL (8.4-10.2); Carbon Dioxide 25 mmol/L (22-29); Chloride 112 mmol/L (96-108); Creatinine Clr Calc Pharmacy 78.1; Estimated Glomerular Filt Rate > 60; Glucose Random 133 mg/dL (60-115); Magnesium 1.9 mg/dL (1.6-2.6); Potassium 5.1 mmol/L (3.3-5.1); Sodium 142 mmol/L (135-145); Total Protein 5.9 g/dL (6.5-8.0)
[2023-11-24 10:48] LABS: Troponin-I High Sensitivity < 2.7 ng/L (<3.5-35.0)
[2023-11-24] MEDS: Acetaminophen 325 MG TABLET 975 MG PO (11:09)
[2023-11-24 11:23] LABS: B Type Natriuretic Peptide 119 pg/mL (<100)
[2023-11-24] MEDS: 0.9 % Sodium Chloride 1,000 ML 999 ML IV ×2 (11:45→14:21)
[2023-11-24] MEDS: Morphine Sulfate 4 MG/ML CARTRIDGE IVPUSH (13:04)
[2023-11-24 15:38] LABS: Troponin-I High Sensitivity < 2.7 ng/L (<3.5-35.0)
== END 2023-11-24 16:33 | disposition home or self-care (01) ==
PROVIDERS: Physician Assistant; Emergency Provider Emergency Medicine
DX: R07.89 Other chest pain (principal); I95.1 Orthostatic hypotension; E11.9 Type 2 diabetes mellitus without complications; I10 Essential (primary) hypertension; E78.5 Hyperlipidemia, unspecified; J45.909 Unspecified asthma, uncomplicated; Z95.0 Presence of cardiac pacemaker
CPT/HCPCS: 36415; 71045; 80053; 83735; 83880; 84484; 85025; 93005; 96361; 96374; 99285; J2270

== ENCOUNTER 2023-12-12 11:38 | Outpatient (REF) | payer OTHER, SELFPAY ==
[2023-12-12 13:31] LABS: Hematocrit 35.2 % (42.0-52.0); Hemoglobin 11.9 g/dl (14.0-18.0); Mean Corpuscular HGB Conc 33.8 g/dl (31.0-36.0); Mean Corpuscular Hemoglobin 29.2 pg (27.0-33.0); Mean Corpuscular Volume 86.5 fL (80.0-98.0); Mean Platelet Volume 11.4 fL (9.4-12.4); Platelet Count 88 X10*3/uL (160-400); Red Blood Count 4.07 X10*6/uL (4.60-5.80); White Blood Count 11.4 X10*3/uL (4.8-10.8)
[2023-12-12 13:59] LABS: Alanine Aminotransferase 17 U/L (0-40); Albumin Level 3.8 g/dL (3.5-5.0); Alkaline Phosphatase 74 U/L (39-117); Anion Gap 13 (12-20); Aspartate Amino Transferase 14 U/L (5-37); Bilirubin Total 0.4 mg/dL (0.0-1.0); Blood Urea Nitrogen 17 mg/dL (9-16); C Reactive Protein 0.95 mg/dL (< or = 0.50); Calcium 8.5 mg/dL (8.4-10.2); Carbon Dioxide 24 mmol/L (22-29); Chloride 107 mmol/L (96-108); Cholesterol 184 mg/dL (<200); Estimated Glomerular Filt Rate > 60; Glucose Random 211 mg/dL (60-115); HDL Cholesterol 55 mg/dL (>40); Iron 64 mcg/dL (45-160); LDL Cholesterol Calculated 113 mg/dL (<100); Percent Iron Saturation 27 % (15-50); Potassium 4.2 mmol/L (3.3-5.1); Sodium 140 mmol/L (135-145); Total Iron Binding Capacity 234 mcg/dL (228-428); Total Protein 6.2 g/dL (6.5-8.0); Triglycerides 80 mg/dL (<150); Unsaturated Iron Binding 170 ug/dL; Uric Acid 7.7 mg/dL (3.4-7.0)
[2023-12-12 14:03] LABS: Estimated Average Glucose 140 mg/dL; Ferritin 27 ng/mL (20-250); Free T4 (Free Thyroxine) 0.82 ng/dL (0.71-1.85); Hemoglobin A1c % 6.5 % (<6.0); Thyroid Stimulating Hormone 2.35 uIU/mL (0.32-4.0); Vitamin D 25-OH Total 32.3 ng/mL (>30)
[2023-12-12 14:18] LABS: Erythrocyte Sedimentation Rate 6 MM/HR (0-15); Folate 6.8 ng/mL (> or = 4.0); Prostate Specific Antigen 0.49 ng/mL (<0.05-4.0); Vitamin B12 389 pg/mL (200-900)
[2023-12-13 04:36] LABS: Syphilis Screen Nonreactive (Nonreactive)
[2023-12-13 04:42] LABS: HBc Num1 0.15 S/CO (0.00-0.79); HBsAGNum1 0.24 S/CO (0.00-0.99); Hepatitis B Core Antibody Nonreactive (Nonreactive); Hepatitis B Surface Antigen Negative (Negative); ~HepC Num1 0.15 S/CO (0.00-0.79); ~Hepatitis C Antibody Nonreactive (Nonreactive)
[2023-12-13 04:58] LABS: HBS Num1 0.11 mIU/mL (0-7.99); HIV AB/AG Nonreactive (Nonreactive); HIV Num 1 0.95 S/CO (0.00-0.99); ~Hepatitis B Surface Antibody NONREACTIVE (Nonreactive)
[2023-12-16 19:37] LABS: HLA B27 Negative (Negative)
== END 2023-12-12 11:39 | disposition home or self-care (01) ==
LOC: HO.HHCL 11:38
PROVIDERS: Visit Provider Student in an Organized Health Care Education/Training Program
DX: Z00.00 Encounter for general adult medical examination without abnormal findings (principal); M54.50 Low back pain, unspecified; M1A.9XX1 Chronic gout, unspecified, with tophus (tophi); Z12.5 Encounter for screening for malignant neoplasm of prostate; Z13.1 Encounter for screening for diabetes mellitus
CPT/HCPCS: 36415; 80053; 80061; 82306; 82607; 82728; 82746; 83036; 83540; 84153; 84439; 84443; 84550; 85027; 85652; 86140; 86704; 86706; 86780; 86803; 86812; 87340; 87389

== ENCOUNTER 2023-12-26 13:27 | Outpatient (AMB) | payer OTHER, SELFPAY ==
--- NOTE | 2023-12-26 13:48 | A.OFFVIS_ITS ---
Vital Signs 12/26/23 13:54 Height 5 ft 9 in Weight 240 lb BMI 35.4 BP 140/88 H Blood Pressure Location Rt brachial Position Sitting Pulse 120 H Pulse Source Pulse Oximeter Pulse Oximetry (%) 97 Oxygen Delivery Method Room Air Intake Visit Reasons: Radiculopathy Spinal region Intake Note: Pain today 12/11 Staff Anesthesiologist Required: No Accompanied by: Self / Same As Patient Allergies aripiprazole [From Abilify] Allergy (Severe, Verified 12/27/23 09:31) Rash peas Allergy (Severe, Verified 12/26/23 13:57) HIVES atorvastatin [From Lipitor] Allergy (Intermediate, Verified 12/26/23 13:57) Hives bee pollen [bee stings] Adverse Reaction (Severe, Verified 12/26/23 13:57) Anaphylaxis HPI HPI Radiculopathy Spinal region: Details: Patient is a 63 years old with complex medical history, including chronic back pain lumbar radiculopathy, lumbosacral anterolisthesis and spondylosis with lumbar DDD, frequent falls, h/o alcohol abuse (quit 03/23/23), somatoform disorder, pacemaker and defibrillator in place, prior tetralogy of Fallot repair (follows Dr. Nix at [facility] Cardiology), depression and anxiety, developmental delay, diabetes (A1C=6.5 on 12/12/23), presents today for initial evaluation of low back pain with bilateral radiculopathy in L5-S1 distribution. Patient reports multiple ER visits to our hospital, [facility] and [facility] for abdominal, atypical chest pain and chronic back pain. He requests today that I direct admit him to inpatient facility and inpatient physical therapy for pain control and core strengthening. Patient has multiple hospitalizations due to chest pain syndrome and is currently very frustrated with low back pain. Patient reports he went to [facility] for back pain last Monday and had lumbar spine CT scan completed there, this report is not available today. Patient reports he was given ketamine at [facility] and this completely alleviated his back pain. He reports his cardiac pacemaker is not compatible with MRI. Denies previous spine surgery or injections. Imaging completed during [facility] ER visits 2022 significant for severe multilevel degenerative cervical spondylosis and grade 1 anterolisthesis L5 over S1 with mild ventral spondylosis seen throughout lumbar spine sparing the L4-L5 disc level. Vacuum disc phenomena and moderate ventral spurring with loss of disc height L1-L2 disc level is noted. Patient reports 2 mechanical falls in the past 2 weeks due to pain and imbalance. Pain negatively affects his daily activities and functioning, mobility, mood, sleep, social interactions and quality of life. He has difficulty controlling pain with OTC topical and oral medications and has been visiting local ER to manage his pain with opioids, NSAIDs, and muscle relaxants with temporary pain relief. Patient lives at home with his cousin who assists him with ADLs. Denies consumption of alcohol, tobacco use, marijuana use, vaping or illicit drug use. He is currently attending [employer] meetings and reports these are helpful. Denies any fever or chills, cought, cold symptoms, dizziness, chest pain, shortness of breaths, bladder or bowel dysfunction or saddle anesthesia. Reports intermittent weakness of both lower extremities with significant low back pain. Location: Lower back radiates down bilateral legs Duration: Chronic pain, worsening for >1 year Characteristics of symptom or complaint: Stabbing, sharp, shooting, radiating, spasming, cramping, dull, aching Aggravating or associated factors: Movements, walking, laying flat, bending, lifting, cold weather, stress Relieving factors: Ketamine (recent ER at [facility]), opioids, NSAIDs, Tylenol, heat pad, rest Treatment: Pending PT [facility] Medical History Somatoform disorder Depression with suicidal ideation Sleep apnea Seizure RBBB Cardiac defibrillator in place Artificial cardiac pacemaker Hyperthyroidism Hyperlipidemia History of ETOH abuse Hypertension GERD (gastroesophageal reflux disease) Diabetes Developmental delay, mild Depression COPD (chronic obstructive pulmonary disease) Asthma Anxiety Surgical History History of cardiac cath Social History Household Members: Other Household Members Other:: 2 roommates Housing: Apartment Housing Other:: Sober House Do you presently have visiting nurse or other home services: No Alcohol intake: former Patient Tobacco Use Status: Never used Tobacco Tobacco use type: Cigarette Smoked in Last 30 Days: No Second Hand Smoke Exposure: No Use of substances other than those prescribed or required for medical reasons: No Substance Use Type: Former Substance User, Prescription Drugs and Caffiene Advance Directives: Yes Advance Directives Information Provided: No Advance Directives on File: No service: No Current occupational status: disabled Sexual orientation: Decline to Answer Review of Systems Const All systems reviewed & are unremarkable except as noted in HPI and below Reports as per HPI, Denies chills, Reports difficulty sleeping, Reports fatigue, Denies fever(s), Reports frequent falls, Denies malaise, Denies night sweats, Denies poor appetite, Reports weakness and Denies weight loss Neuro Denies confusion, Reports frequent falls and Reports weakness Psych Reports anxiety, Denies confusion, Reports depression, Reports difficulty con centrating (due to pain), Denies auditory hallucinations, Denies panic attacks, Denies visual hallucinations, Denies tactile hallucinations, Denies homicidal ideation and Denies suicidal ideation Endo Reports fatigue Physical Exam Vital Signs: Last Vital Signs Pulse 120 H 12/26/23 13:54 BP 140/88 H 12/26/23 13:54 Pulse Ox 97 12/26/23 13:54 Oxygen Delivery Method Room Air 12/26/23 13:54 BMI result Body Mass Index 35.4 General: Appears afebrile. Alert and oriented. Mood and affect appropriate. Follows and participates in conversation appropriately. Respiratory effort is unlabored. No cough. Able to transition from sit to stand unassisted. Ambulates with bilaterally normal heel strike and toe off, reports BLE weakness and imbalances with severe pain. Const General: No confusion Orientation/consciousness: No confusion General: Yes no CVA tenderness Back/Spine/Pelvis Other: Pain in all ranges of motion, lumbar extension and facet loading bilaterally reproduces moderate pain. Lumbar flexion and bending reproduces moderate-severe symptoms. Strength 4/5 hip flexion bilaterally. Mild tenderness to bilateral GTB. Diminished DTR intact, no clonus. Seated SLR with dorsiflexion positive bilaterally, in L5-S1 distribution. Unable to complete exam due to significant pain. Back: no CVA tenderness Cervical Spine: loss of normal cervical lordosis, cervical muscular tenderness, pain with cervical ROM and No Cervical spine tenderness Thoracic/Lumbar Spine: thoracic and lumbar spine normal to inspection, No Thoracic/lumbar spine scar(s), Lasegue's sign positive bilateral and localized, pain with thoraco-lumbar ROM, paraspinal muscle tenderness, thoraco-lumbar ROM limited, thoracic spinal tenderness (lower thoracic) and lumbar spinal tenderness (L4-S1) Pelvis: buttock tenderness bilaterally and sciatic notch tenderness bilateral Sacroiliac joints: bilaterally tender to palpation Neuro General: No confusion Results Reviewed Results Reviewed: CT cervical spine wo IV con 07/11/22 IMPRESSION: Head CT: Limited exam due to motion artifact. Stable appearance to the small focus of increased attenuation in the periventricular white matter of the left frontal lobe adjacent to the frontal horn of the left lateral ventricle from prior exams probably representing area of calcification. Cervical spine CT: Limited due to patient position and motion. Severe multilevel degenerative spondylosis. CT abdomen pelvis w IV con 07/08/22 OSSEOUS STRUCTURES: There is grade 1 anterolisthesis L5 over S1. Mild ventral spondylosis seen throughout lumbar spine sparing the L4-L5 disc level. Vacuum disc phenomena and moderate ventral spurring with loss of disc height L1-L2 disc level is noted. No lytic or sclerotic process. Assessment & Plan Assessment & Plan (1) Frequent falls: Code(s): R29.6 - Repeated falls Category: Medical (2) Lumbar degenerative disc disease: Code(s): M51.36 - Other intervertebral disc degeneration, lumbar region Category: Medical (3) Chronic low back pain: Code(s): M54.50 - Low back pain, unspecified; G89.29 - Other chronic pain Category: Medical (4) Lumbar radiculopathy: Code(s): M54.16 - Radiculopathy, lumbar region Category: Medical (5) Lumbosacral spondylosis: Code(s): M47.817 - Spondylosis without myelopathy or radiculopathy, lumbosacral region Category: Medical (6) Spondylolisthesis of lumbar region: Code(s): M43.16 - Spondylolisthesis, lumbar region Category: Medical Plan Script sent to [employer] for cane. Patient reports his PCP has ordered PT, this has not been scheduled yet. Patient requests to direct admit him for in-house PT however denies mobility limitations or transportation issues. Will obtain full pertinent medical records from [facility] from recent ER visit and lumbar spine CT scan imaging report. Briefly discussed interventional treatments to address his axial, radicular and discogenic intractable low back pain that is significantly limiting his activities of daily living and causing debilitating symptoms. Short script provided for Percocet for severe pain only. Patient reports Percocet provided him better pain relief than tramadol, which is consistent with [employer] review. Discussed side effects and precautions with patient. He reports his daily medications are administered by his cousin who is his [employer]. Narcan sent today as well. All questions and concerns have been answered and patient agreed with treatment plan. Follow up for CT scan review and sooner as needed. Medications: New miscellaneous medical supply Quad cane use As directed 1 ea 0RF pain M43.16 - Spondylolisthesis, lumbar region, M51.36 - Other intervertebral disc degeneration, lumbar region, M54.16 - Radiculopathy, lumbar region, R29.6 - Repeated falls oxycodone-acetaminophen 5-325 mg Partial Fill upon patient request. 1 tab PO Q8H 7 days PRN 20 tabs 0RF pain (scale score 7-10) M43.16 - Spondylolisthesis, lumbar region, M47.817 - Spondylosis without myelopathy or radiculopathy, lumbosacral region, M51.36 - Other intervertebral disc degeneration, lumbar region naloxone 4 mg/actuation (Narcan) spray 1 dose into ONE nostril; alternate nostrils w each dose until help arrives 4 mg intranasal Q2M PRN 2 ea 0RF opioid overdose Coding Level of Care Code New Pt Level 4 (81347) Complex EM visit Add On G2211 Diagnoses Frequent falls R29.6 Lumbar degenerative disc disease M51.36 Chronic low back pain M54.50; G89.29 Lumbar radiculopathy M54.16 Lumbosacral spondylosis M47.817 Spondylolisthesis of lumbar region M43.16
[2023-12-26 13:54] VITALS: BP 140/88; PULSE 120; O2SAT 97; BMI 35.4
== END 2023-12-26 14:17 | disposition home or self-care (01) ==
PROVIDERS: PCP Student in an Organized Health Care Education/Training Program; Visit Provider Nurse Practitioner Family
DX: R29.6 Repeated falls (principal); M51.36 Other intervertebral disc degeneration, lumbar region; M54.50 Low back pain, unspecified; G89.29 Other chronic pain; M54.16 Radiculopathy, lumbar region; M47.817 Spondylosis without myelopathy or radiculopathy, lumbosacral region; M43.16 Spondylolisthesis, lumbar region
CPT/HCPCS: 99204; G2211

== ENCOUNTER → 2023-12-26 13:27 | Outpatient (BNVA) | payer OTHER, SELFPAY | PROVIDERS: PCP Student in an Organized Health Care Education/Training Program; Visit Provider Nurse Practitioner Family | DX: M51.36 Other intervertebral disc degeneration, lumbar region (principal); M54.50 Low back pain, unspecified; M54.16 Radiculopathy, lumbar region; M47.817 Spondylosis without myelopathy or radiculopathy, lumbosacral region; M43.16 Spondylolisthesis, lumbar region; G89.29 Other chronic pain; R29.6 Repeated falls | CPT/HCPCS: 99202 ==

== ENCOUNTER 2023-12-27 08:47 | Outpatient (REF) | payer OTHER, SELFPAY ==
--- NOTE | ~2023-12-27 | US_ITS ---
EXAMINATION: US COMPLETE ABDOMEN WITH LIVER ELASTOGRAPHY CLINICAL INFORMATION: History of alcohol abuse. COMPARISON: CT abdomen and pelvis dated 12/27/2023 TECHNIQUE: Real-time imaging of the abdominal viscera. Noninvasive ultrasound liver fibrosis assessment is performed using Adolph ElastPQ point quantification shear wave elastography (pSWE) with a C5-2 MHz transducer. Multiple elastography samples are obtained. FINDINGS: PANCREAS: Normal. The visualized pancreatic head and body are normal in appearance. The remainder of the pancreas is obscured from visualization by the overlying bowel gas. ABDOMINAL AORTA: The proximal, middle, and distal aortic segments are normal in caliber. INFERIOR VENA CAVA: Visualized portions are normal. LIVER: Normal. The liver demonstrates normal size, contour and echogenicity. No focal lesion or intrahepatic biliary duct dilatation. The right lobe measures 15.3 cm in length. The left lobe measures 10.1 cm in length. Portal flow is towards the liver (hepatopetal). Shear wave liver elastography median stiffness is 1.36 m/s (reference: normal median stiffness is 1.3 m/s or less). IQR/median stiffness to assess sampling precision is 0.49 (reference: good quality data set is IQR/median stiffness of 0.15 or less). GALLBLADDER: Normal. The gallbladder is physiologically distended without evidence of stones, sludge, polyps, wall thickening or pericholecystic fluid. COMMON BILE DUCT: Normal in caliber measuring 0.2 cm in diameter. RIGHT KIDNEY: Normal. No hydronephrosis. No renal calculi or focal parenchymal lesions. The kidney measures 11.4 cm in maximum dimension. LEFT KIDNEY: Normal. No hydronephrosis. No renal calculi or focal parenchymal lesions. The kidney measures 10.7 cm in maximum dimension. SPLEEN: Normal. The spleen measures 11.5 cm in maximum dimension. FREE FLUID: None. US/US abdomen comp w elastography IMPRESSION: 1. There is generalized increase in hepatic echotexture, consistent with fatty infiltration or hepatocellular disease. Please correlate clinically. No focal hepatic mass or intrahepatic biliary dilatation is seen. 2. Liver elastography: Although measurements appear to rule out compensated advanced chronic liver disease, there is statistical variability of the sampling which decreases accuracy. REFERENCE: Society of Radiologists in Ultrasound Liver Stiffness Thresholds (2020): LIVER STIFFNESS THRESHOLDS: *Liver Stiffness equal or less than 1.3 m/s: High probability of being normal. *Liver Stiffness less than 1.7 m/s: In the absence of other known clinical signs, rules out compensated advanced chronic liver disease. *Liver Stiffness 1.7-2.1 m/s: Suggestive of compensated advanced chronic liver disease but need further test for confirmation. *Liver Stiffness over 2.1 m/s: Rules in compensated advanced chronic liver disease. *Liver Stiffness over 2.4 m/s: Suggestive of clinically significant portal hypertension. QUALITY OF DATA SET: *IQR/Median value equal or less than 0.15 implies a quality data set. *IQR/Median value over 0.15 implies a poor quality data set. SIGNIFICANT CHANGE FROM PRIOR EXAM: Significant change if liver stiffness measurement is 10% or greater from prior exam. OTHER CONSIDERATIONS: The stage of liver fibrosis may be overestimated in the setting of acute hepatitis, liver inflammation, elevated liver function tests, hepatic vascular congestion, obstructive cholestasis, non-fasting state, and infiltrative diseases such as amyloidosis and lymphoma. In some patients with NAFLD, the liver stiffness thresholds for compensated advanced chronic liver disease may be lower. In causes other than viral hepatitis and NAFLD, liver stiffness thresholds are not well established. Electronically signed by: Dank Cam MD 12/28/2023 02:10 PM EDT
== END 2023-12-27 08:48 | disposition home or self-care (01) ==
LOC: HO.US 08:47
PROVIDERS: PCP Student in an Organized Health Care Education/Training Program; Visit Provider Student in an Organized Health Care Education/Training Program
DX: F10.10 Alcohol abuse, uncomplicated (principal); D69.6 Thrombocytopenia, unspecified
CPT/HCPCS: 76700; 76981

== ENCOUNTER 2023-12-27 09:27 | Emergency (ER) | payer OTHER, SELFPAY ==
[2023-12-27] VITALS (8 sets, daily range): BP systolic 84–132; BP diastolic 46–78; PULSE 79–92; RESP 15–20; TEMP 36.4; O2SAT 95–98; BMI 35.4
--- NOTE | 2023-12-27 | ECG_ITS ---
Test Reason : CHEST PAIN/SYNCOPE Blood Pressure : / mmHG Vent. Rate : 088 BPM Atrial Rate : 088 BPM P-R Int : 232 ms QRS Dur : 162 ms QT Int : 436 ms P-R-T Axes : 070 110 052 degrees QTc Int : 527 ms Sinus rhythm with 1st degree A-V block Right axis deviation Non-specific intra-ventricular conduction block Abnormal ECG When compared with ECG of 24-NOV-2023 09:36, Non-specific intra-ventricular conduction block has replaced Right bundle branch block Referred By: Generic ED Physician Electronically Signed By:CHET BAHENA
--- NOTE | ~2023-12-27 | CT_ITS ---
EXAMINATION: CT CERVICAL SPINE WITHOUT CONTRAST CLINICAL INFORMATION: Pain COMPARISON: None available. TECHNIQUE: Thin section axial images are obtained with sagittal and coronal reformats. This CT examination was performed using dose optimization techniques as appropriate, variously including the following: *Automated exposure control *Adjustment of mA and/or kV according to patient size (this includes techniques or standardized protocols for targeted exams where dose is matched to indication/reason for exam; i.e. extremities or head) *Use of iterative reconstruction technique DLP: 713 mGy-cm FINDINGS: Extensive ankylosis seen throughout the C-spine. No fracture or destructive process. No encroachment on the spinal canal. Prevertebral soft tissues are normal. Calcification in the nuchal ligament observed. Productive change in the right sternoclavicular joint noted. CT/CT cervical spine wo IV con IMPRESSION: Extensive degenerative change. No fracture or encroachment on the spinal canal. Fleischner guidelines were followed. Electronically signed by: Jake Hansen MD 12/27/2023 12:45 PM EDT
--- NOTE | ~2023-12-27 | CT_ITS ---
EXAMINATION: CT HEAD WITHOUT CONTRAST CLINICAL INFORMATION: Fall. Hit head COMPARISON: 12/29/2022 TECHNIQUE: Contiguous axial imaging was performed from the skull base to vertex without intravenous administration of contrast. This CT examination was performed using dose optimization techniques as appropriate, variously including the following: *Automated exposure control *Adjustment of mA and/or kV according to patient size (this includes techniques or standardized protocols for targeted exams where dose is matched to indication/reason for exam; i.e. extremities or head) *Use of iterative reconstruction technique DLP: 868 mGy-cm FINDINGS: Small punctate focal hyperdensity adjacent to the frontal horn of the left lateral ventricle is unchanged from 12/21/2022. Today's study shows a fair amount of gliosis compatible with involutional change. There is prominence to the sulci and ventricles. No evidence for intra or extra-axial fluid collection, hemorrhage, mass, or mass effect. Calvarium is intact. CT/CT head/brain wo IV con IMPRESSION: No acute intracranial pathology. Electronically signed by: Jake Hansen MD 12/27/2023 12:37 PM EDT
--- NOTE | ~2023-12-27 | CT_ITS ---
EXAMINATION: CT ABDOMEN AND PELVIS WITH CONTRAST CLINICAL INFORMATION: Back pain after falling COMPARISON: None available. TECHNIQUE: Multidetector volumetric images were obtained from the superior aspect of the liver through the pubic symphysis following administration 85 mL of Omnipaque 350 intravenous contrast. Sagittal and coronal reformatted images were obtained on the technologist's workstation. Oral contrast: No This CT examination was performed using dose optimization techniques as appropriate, variously including the following: *Automated exposure control *Adjustment of mA and/or kV according to patient size (this includes techniques or standardized protocols for targeted exams where dose is matched to indication/reason for exam; i.e. extremities or head) *Use of iterative reconstruction technique DLP: 909 mGy-cm FINDINGS: LUNG BASES: Minor atelectasis left base. LIVER, GALLBLADDER, AND BILIARY TREE: Moderate to advanced hepatic steatosis of the liver. No focal hepatic mass. No intrahepatic biliary dilatation. The gallbladder is unremarkable with no evidence of radiopaque gallstones, gallbladder wall thickening, or obvious pericholecystic inflammatory changes. PANCREAS: Unremarkable. SPLEEN: Unremarkable. ADRENAL GLANDS: Unremarkable. KIDNEYS AND URETERS: The kidneys are normal in size, shape, and attenuation. No hydronephrosis, hydroureter, or calculi seen. No perinephric stranding. BLADDER: Unremarkable. GASTROINTESTINAL TRACT: Moderate stool burden. No bowel obstruction or right or left lower quadrant inflammation. Appendix not visualized. ABDOMINAL WALL: No significant hernia is appreciated. LYMPH NODES: Normal. VASCULAR: There are atherosclerotic but nonaneurysmal. PELVIC VISCERA: Unremarkable. OSSEOUS STRUCTURES: No acute findings. There is advanced spondylitic change and ankylosis of the lower thoracic spine and advanced degenerative change throughout the lumbar spine but no fracture. CT/CT abdomen pelvis w IV con IMPRESSION: Hepatic steatosis. No acute findings. Fleischner guidelines were followed. Electronically signed by: Jake Hansen MD 12/27/2023 12:51 PM EDT
--- NOTE | 2023-12-27 09:43 | ED.SYNCOPE ---
HPI - Syncope General Chief Complaint: Syncope Stated Complaint: CP Lower Quadrant Pain Time Seen by Provider: 12/27/23 09:41 Source: patient Mode of arrival: wheelchair Limitations: no limitations History of Present Illness HPI narrative: 63-year-old male S medical history of chronic back pain lumbar radiculopathy frequent falls COPD defibrillator and pace depression somatoform disorder is already going to pain management who comes to the ER after being seen for an outpatient ultrasound. Patient admits to falling he states he was awake and aware but was not responding to with people were saying. The patient brought to the ER he did hit his head he also states he fell and skinned his knee a few days ago at the doctor's office. He is requesting for physical therapy to see the patient after his workup is negative today. I explained that he will not follow up with physical therapy as an outpatient MD complaint: almost passed out Related Data Home Medications ?Medication ?Instructions ?Recorded ?Confirmed albuterol sulfate 90 mcg/actuation 2 puff inhalation Q4H PRN 08/19/22 01/01/23 aerosol inhaler Shortness Of Breath hydroxyzine pamoate 50 mg capsule 50 mg PO BID Anxiety / Nausea 08/19/22 01/01/23 nitroglycerin 0.4 mg sublingual 0.4 mg sublingual Q5M PRN Chest 08/19/22 01/01/23 tablet Pain sotalol 80 mg tablet 80 mg PO BID 08/19/22 01/01/23 tamsulosin 0.4 mg capsule 0.4 mg PO BEDTIME 08/19/22 01/01/23 levothyroxine 75 mcg tablet 75 mcg PO DAILY@0600 09/08/22 01/01/23 risperidone 1 mg tablet 1.5 mg PO BEDTIME 09/08/22 01/01/23 rivaroxaban 20 mg tablet (Xarelto) 20 mg PO DAILY@1800 09/08/22 01/01/23 acetaminophen 325 mg tablet 650 mg PO Q4H PRN Fever Or Pain 01/01/23 01/01/23 aluminum-mag hydroxide-simethicone 10 ml PO Q4H PRN Constipation 01/01/23 01/01/23 400 mg-400 mg-40 mg/5 mL oral susp (Mylanta Maximum Strength) aspirin 81 mg tablet,delayed 81 mg PO DAILY 01/01/23 01/01/23 release bisacodyl 5 mg tablet,delayed 10 mg PO BEDTIME PRN Constipation 01/01/23 01/01/23 release calcium carbonate (Tums) 300 mg PO Q4H PRN Dyspepsia 01/01/23 01/01/23 cyclobenzaprine 5 mg tablet 5 mg PO TID PRN muscle spasms 01/01/23 01/01/23 escitalopram oxalate 20 mg tablet 20 mg PO DAILY 01/01/23 01/01/23 gabapentin 300 mg capsule 300 mg PO BID 01/01/23 01/01/23 magnesium hydroxide 400 mg/5 mL 30 ml PO DAILY PRN Constipation 01/01/23 01/01/23 oral suspension melatonin 10 mg tablet 10 mg PO BEDTIME PRN Insomnia 01/01/23 01/01/23 metformin 500 mg tablet 500 mg PO DAILY 01/01/23 01/01/23 ondansetron HCl 4 mg tablet 4 mg PO Q4H PRN nausea and 01/01/23 01/01/23 vomitting quetiapine 100 mg tablet 100 mg PO BEDTIME 01/01/23 01/01/23 sumatriptan succinate 50 mg tablet 50 mg PO BID PRN migraines 01/01/23 01/01/23 tramadol 50 mg tablet 50 mg PO Q6H PRN migraines 01/01/23 01/01/23 trazodone 50 mg tablet 25 mg PO BEDTIME 01/01/23 01/01/23 hydroxyzine HCl 50 mg tablet 50 mg PO BEDTIME 12/26/23 trazodone 150 mg tablet 150 mg PO BEDTIME 12/26/23 Previous Rx's ?Medication ?Instructions ?Recorded isosorbide mononitrate 30 mg 30 mg PO DAILY #0 tabs 09/22/21 tablet,extended release 24 hr ezetimibe 10 mg tablet 10 mg PO DAILY 7 days #7 tabs 08/24/22 oxycodone 5 mg tablet 5 mg PO BID PRN pain #4 tabs 01/01/23 prednisone 20 mg tablet 20 mg PO DAILY #5 tabs 01/01/23 cyclobenzaprine 10 mg tablet 10 mg PO TID PRN muscle spasm #10 08/31/23 tabs acetaminophen 325 mg capsule 325 mg PO Q4H PRN pain #30 caps 09/30/23 (Tylenol) lidocaine 5 % topical patch 1 patch topical DAILY PRN pain #15 09/30/23 ea meclizine 25 mg tablet 25 mg PO DAILY PRN dizziness #14 09/30/23 tabs miscellaneous medical supply #1 ea 12/26/23 naloxone 4 mg/actuation nasal 4 mg intranasal Q2M PRN opioid 12/26/23 spray (Narcan) overdose #2 ea oxycodone-acetaminophen 5 mg-325 1 tab PO Q8H PRN pain (scale score 12/26/23 mg tablet 7-10) 7 days #20 tabs Allergies Allergy/AdvReac Type Severity Reaction Status Date / Time aripiprazole [From Abilify] Allergy Severe Rash Verified 12/27/23 09:31 peas Allergy Severe HIVES Verified 12/26/23 13:57 atorvastatin [From Lipitor] Allergy Intermediate Hives Verified 12/26/23 13:57 bee pollen [bee stings] AdvReac Severe Anaphylaxis Verified 12/26/23 13:57 Review of Systems Review of Systems: Review of systems: General: Patient denies any fever chills recent illness or falls Musculoskeletal: Denies back pain or body aches or other injuries HEENT: hit head with headache, dneies runny nose, ear pain Respiratory: shortness of breath, cough Cardiovascular: chest pain or palpitations : denies dysuria, frequency Abdomen: no nausea vomiting denies abdominal pain Extremities: no swelling, no pain Skin: no diaphoresis Yes all other systems are reviewed and are negative PMFSH Past Medical History Medical History Somatoform disorder Depression with suicidal ideation Sleep apnea Seizure RBBB Cardiac defibrillator in place Artificial cardiac pacemaker Hyperthyroidism Hyperlipidemia History of ETOH abuse Hypertension GERD (gastroesophageal reflux disease) Diabetes Developmental delay, mild Depression COPD (chronic obstructive pulmonary disease) Asthma Anxiety Surgical History History of cardiac cath Social History Social History Household Members: Other Household Members Other:: 2 roommates Housing: Apartment Housing Other:: Sober House Do you presently have visiting nurse or other home services: No Alcohol intake: former Patient Tobacco Use Status: Never used Tobacco Tobacco use type: Cigarette Smoked in Last 30 Days: No Second Hand Smoke Exposure: No Use of substances other than those prescribed or required for medical reasons: No Substance Use Type: Former Substance User, Prescription Drugs and Caffiene Advance Directives: Yes Advance Directives Information Provided: No Advance Directives on File: No service: No Current occupational status: disabled Sexual orientation: Decline to Answer Physical Exam Vital Signs: Vital Signs: Last Vital Signs Temp 97.5 F 12/27/23 11:32 Pulse 79 12/27/23 11:32 Resp 15 12/27/23 11:32 BP 116/64 12/27/23 11:32 Pulse Ox 95 12/27/23 11:32 O2 Del Method Room Air 12/27/23 11:32 BMI result Body Mass Index 35.4 General: Well-appearing well-nourished in no signs of distress HEENT: Normocephalic atraumatic no hematotympanum Neck: No signs of JVD, no masses no tenderness or lymphadenopathy Cardiovascular: Regular rate and rhythm Respiratory: Clear to auscultation bilaterally Abdomen: Soft nontender no masses Extremities: Normal pedal pulses no signs of edema Skin: Dry warm no rashes Back: No tenderness full ROM Course Reevaluation(s) Reevaluation #1: Security did review the video of his alleged syncopal episode patient slowly lowered himself to the ground there was no head trauma patient already had CT scan of his head and neck by the time the video was reviewed. Reevaluation #2: Reassuring exam I do think he is safe to go home CT and labs are all unremarkable I will discharge the patient home at this time Medications Administered Discontinued Medications Generic Name Dose Route Start Last Admin Trade Name Freq PRN Reason Stop Dose Admin Diphtheria/Tetanus/Acell Pertussis 0.5 ml 12/27/23 10:05 12/27/23 10:14 Diphth,Pertus(Acell),Tet Adult 0.5 Ml Syringe IM 12/27/23 10:06 Not Given .ONCE ONE Sodium Chloride 1,000 mls @ 999 mls/hr 12/27/23 09:45 12/27/23 13:11 Ns IV 12/27/23 10:45 Infused .Q1H1M RADHA Infusion Iohexol 100 ml 12/27/23 10:50 12/27/23 10:50 Iohexol 350 Mg/Ml 100 Ml Infus..Btl IV 12/27/23 10:51 100 ml ONCE ONE Administration Morphine Sulfate 4 mg 12/27/23 10:04 12/27/23 10:15 Morphine Sulfate 4 Mg/Ml Cartridge IVPUSH 12/27/23 10:05 4 mg ONCE ONE Administration Protocol Ondansetron HCl 4 mg 12/27/23 10:04 12/27/23 10:14 Ondansetron Hcl 4 Mg/2 Ml Vial IVPUSH 12/27/23 10:05 4 mg ONCE ONE Administration Medical Decision Making Medical Decision Making [facility] Narrative: I will get labs for an abdominal workup I would scan of his head and neck and abdomen and I will reassess the patient Differential Diagnosis Differential Diagnoses: The differential diagnosis associated with the presentation includes Fall near-syncope weakness abdominal pain chest pain Admission/Observation Consideration of admission/observation: Escalation of care including admission/observation considered Lab Data [facility] Lab Attestation statement: I reviewed the patient's lab results. 12/27/23 09:40 12/27/23 09:40 Labs: Lab Results 12/27/23 Range/Units 09:40 WBC 5.2 (4.8-10.8) X10*3/uL RBC 4.02 L (4.60-5.80) X10*6/uL Hgb 11.8 L (14.0-18.0) g/dl Hct 34.6 L (42.0-52.0) % MCV 86.1 (80.0-98.0) fL MCH 29.4 (27.0-33.0) pg MCHC 34.1 (31.0-36.0) g/dl RDW 13.6 (11.0-16.0) % Plt Count 84 L (160-400) X10*3/uL MPV 11.3 (9.4-12.4) fL Immature Gran % (Auto) 1.5 H (0.0-0.4) % Neut % (Auto) 61.6 (45-73) % Lymph % (Auto) 19.5 L (20-40) % [place] % (Auto) 10.5 (2-11) % Eos % (Auto) 5.4 H (0-4) % Baso % (Auto) 1.5 (0-2) % Lymph # (Auto) 1.0 L (1.2-4.9) X10*3/uL [place] # (Auto) 0.6 (0.1-1.2) X10*3/uL Eos # (Auto) 0.3 (0.0-0.4) X10*3/uL Baso # (Auto) 0.1 (0.0-0.2) X10*3/uL Abs Immat Gran (auto) 0.08 H (0.00-0.03) X10*3/uL Absolute Neuts (auto) 3.2 (2.0-8.3) x10*3/uL Absolute Nucleated RBC 0.000 (0.0-0.012) X10*3/uL Nucleated RBC % (auto) 0.0 (0.0-0.2) /100WBC Sodium 142 (135-145) mmol/L Potassium 4.4 (3.3-5.1) mmol/L Chloride 109 H (96-108) mmol/L Carbon Dioxide 25 (22-29) mmol/L Anion Gap 12 (12-20) BUN 15 (9-16) mg/dL Creatinine 1.22 (0.5-1.4) mg/dL Estim Creat Clear Calc 77.3 Estimated GFR > 60 Random Glucose 163 H (60-115) mg/dL Calcium 8.2 L (8.4-10.2) mg/dL Total Bilirubin 0.5 (0.0-1.0) mg/dL Direct Bilirubin 0.2 (0.0-0.5) mg/dL AST 14 (5-37) U/L ALT 16 (0-40) U/L Alkaline Phosphatase 63 (39-117) U/L Troponin I High Sens 5.7 D (<3.5-35.0) ng/L Total Protein 5.9 L (6.5-8.0) g/dL Albumin 3.6 (3.5-5.0) g/dL Lipase 16 (8-78) U/L Independent Interpretation I performed an independent interpretation of an: EKG Interpretation: Rate 88 send presents no previous for comparison interpreted by me Radiology Impression Discussion of test interpretation with radiology: I discussed test interpretation with the radiologist and I have reviewed the radiologist's reading. External Record Review External record reviewed: Inpatient record, Office record, Outpatient record, Prior outpatient labs, Prior outpatient radiology and Outside ED record Discharge Plan Discharge Clinical Impression: Abdominal pain, Drug-seeking behavior, Frequent falls Patient Disposition: Home, Self-Care Instructions: Abdominal Pain (ED) Additional Instructions: You were seen today in the emergency department for chest pain and abdominal pain. You had labs CTs of your head neck and abdomen which were all negative. Please call follow up with her doctor. Prescriptions: No Action isosorbide mononitrate 30 mg Tablet Extended Release 24 Hr 30 mg PO DAILY Qty: 0 0RF Protocol: Hold for SBP< HOLD for SBP < : 90 sotalol 80 mg tablet 80 mg PO BID hydroxyzine pamoate 50 mg capsule 50 mg PO BID tamsulosin 0.4 mg capsule 0.4 mg PO BEDTIME nitroglycerin 0.4 mg tablet, sublingual 0.4 mg sublingual Q5M PRN (Reason: Chest Pain) albuterol sulfate 90 mcg/actuation HFA aerosol inhaler 2 puff inhalation Q4H PRN (Reason: Shortness Of Breath) ezetimibe 10 mg Tablet 10 mg PO DAILY 7 Days Qty: 7 0RF risperidone 1 mg tablet 1.5 mg PO BEDTIME Xarelto 20 mg tablet 20 mg PO DAILY@1800 levothyroxine 75 mcg tablet 75 mcg PO DAILY@0600 acetaminophen 325 mg tablet 650 mg PO Q4H PRN (Reason: Fever Or Pain) metformin 500 mg tablet 500 mg PO DAILY trazodone 50 mg tablet 25 mg PO BEDTIME ondansetron HCl 4 mg Tablet 4 mg PO Q4H PRN (Reason: nausea and vomitting) sumatriptan succinate 50 mg tablet 50 mg PO BID PRN (Reason: migraines) Rx Instructions: wait 2 hours between doses calcium carbonate [Tums] 300 mg (750 mg) Tablet,Chewable 300 mg PO Q4H PRN (Reason: Dyspepsia) aspirin 81 mg tablet,delayed release (DR/EC) 81 mg PO DAILY tramadol 50 mg tablet 50 mg PO Q6H PRN (Reason: migraines) quetiapine 100 mg tablet 100 mg PO BEDTIME magnesium hydroxide 400 mg/5 mL Suspension 30 ml PO DAILY PRN (Reason: Constipation) gabapentin 300 mg capsule 300 mg PO BID bisacodyl 5 mg Tablet,Delayed Release (Dr/Ec) 10 mg PO BEDTIME PRN (Reason: Constipation) alum-mag hydroxide-simeth [Mylanta Maximum Strength] 400-400-40 mg/5 mL Suspension 10 ml PO Q4H PRN (Reason: Constipation) escitalopram oxalate 20 mg Tablet 20 mg PO DAILY cyclobenzaprine 5 mg tablet 5 mg PO TID PRN (Reason: muscle spasms) melatonin 10 mg Tablet 10 mg PO BEDTIME PRN (Reason: Insomnia) prednisone 20 mg tablet 20 mg PO DAILY Qty: 5 0RF oxycodone 5 mg tablet 5 mg PO BID PRN (Reason: pain) Qty: 4 0RF Rx Instructions: Partial Fill upon patient request. cyclobenzaprine 10 mg tablet 10 mg PO TID PRN (Reason: muscle spasm) Qty: 10 0RF meclizine 25 mg tablet 25 mg PO DAILY PRN (Reason: dizziness) Qty: 14 0RF lidocaine 5 % adhesive patch,medicated 1 patch topical DAILY PRN (Reason: pain) Qty: 15 0RF Rx Instructions: leave on most painful area for up to 12 hrs acetaminophen [Tylenol] 325 mg capsule 325 mg PO Q4H PRN (Reason: pain) Qty: 30 0RF trazodone 150 mg tablet 150 mg PO BEDTIME hydroxyzine HCl 50 mg tablet 50 mg PO BEDTIME (DME) miscellaneous medical supply Misc See Rx Instructions .Route Qty: 1 0RF Rx Instructions: Quad cane use As directed oxycodone-acetaminophen 5-325 mg tablet 1 tab PO Q8H PRN (Reason: pain (scale score 7-10)) 7 Days Qty: 20 0RF Rx Instructions: Partial Fill upon patient request. naloxone [Narcan] 4 mg/actuation spray,non-aerosol 4 mg intranasal Q2M PRN (Reason: opioid overdose) Qty: 2 0RF Rx Instructions: spray 1 dose into ONE nostril; alternate nostrils w each dose until help arrives Print Language: Latvian
[2023-12-27 09:45] LABS: MANUAL DIFF FLAG NO
[2023-12-27 09:48] LABS: Basophils Absolute Auto 0.1 X10*3/uL (0.0-0.2); Basophils Percent Auto 1.5 % (0-2); Eosinophils Absolute Auto 0.3 X10*3/uL (0.0-0.4); Eosinophils Percent Auto 5.4 % (0-4); Hematocrit 34.6 % (42.0-52.0); Hemoglobin 11.8 g/dl (14.0-18.0); Imm Gran Abs Auto 0.08 X10*3/uL (0.00-0.03); Imm Gran Pct Auto 1.5 % (0.0-0.4); Lymphocytes Percent Auto 19.5 % (20-40); Mean Corpuscular HGB Conc 34.1 g/dl (31.0-36.0); Mean Corpuscular Hemoglobin 29.4 pg (27.0-33.0); Mean Corpuscular Volume 86.1 fL (80.0-98.0); Mean Platelet Volume 11.3 fL (9.4-12.4); Monocytes Absolute Auto 0.6 X10*3/uL (0.1-1.2); Monocytes Percent Auto 10.5 % (2-11); Neutrophils Absolute Auto 3.2 x10*3/uL (2.0-8.3); Neutrophils Percent Auto 61.6 % (45-73); Platelet Count 84 X10*3/uL (160-400); Red Blood Count 4.02 X10*6/uL (4.60-5.80); Red Cell Distribution Width 13.6 % (11.0-16.0); White Blood Count 5.2 X10*3/uL (4.8-10.8)
[2023-12-27 10:03] LABS: Alanine Aminotransferase 16 U/L (0-40); Albumin Level 3.6 g/dL (3.5-5.0); Alkaline Phosphatase 63 U/L (39-117); Anion Gap 12 (12-20); Aspartate Amino Transferase 14 U/L (5-37); Bilirubin Direct 0.2 mg/dL (0.0-0.5); Bilirubin Total 0.5 mg/dL (0.0-1.0); Blood Urea Nitrogen 15 mg/dL (9-16); Calcium 8.2 mg/dL (8.4-10.2); Carbon Dioxide 25 mmol/L (22-29); Chloride 109 mmol/L (96-108); Creatinine Clr Calc Pharmacy 77.3; Estimated Glomerular Filt Rate > 60; Glucose Random 163 mg/dL (60-115); Lipase 16 U/L (8-78); Potassium 4.4 mmol/L (3.3-5.1); Sodium 142 mmol/L (135-145); Total Protein 5.9 g/dL (6.5-8.0)
--- NOTE | 2023-12-27 10:03 | PC.NURSE ---
Pt brought into ED from US as an outpatient response. Pt was at US for right lower ABD pain X4 months with associated nausea and diarrhea. Reports he got up felt faint and had severe chest pain, had syncopal episode with +head hit and LOC. Collared during outpatient response. Alert and oriented, breathing even and unlabored, skin pale. 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 Does report chest pain and right sided ABD pain. Has significant cardiac hx.
[2023-12-27] MEDS: 0.9 % Sodium Chloride 1,000 ML 999 ML IV (10:08)
[2023-12-27 10:11] LABS: Troponin-I High Sensitivity 5.7 ng/L (<3.5-35.0)
[2023-12-27] MEDS: ondansetron HCL 4 MG/2 ML VIAL IVPUSH (10:14)
[2023-12-27] MEDS: Morphine Sulfate 4 MG/ML CARTRIDGE IVPUSH (10:15)
[2023-12-27] MEDS: iohexoL 350 MG/ML 100 ML INFUS..BTL IV (10:50)
--- NOTE | 2023-12-27 13:59 | PC.NURSE ---
Upon d/c, pt noted to sit up and feel a little dizzy. BP checked and is hypotensive as documented. notified, another liter of NS.
--- NOTE | 2023-12-27 15:42 | PC.NURSE ---
Vitals improved, pt feeling well. D/C per .
== END 2023-12-27 15:43 | disposition home or self-care (01) ==
PROVIDERS: Emergency Provider Student in an Organized Health Care Education/Training Program; PCP Student in an Organized Health Care Education/Training Program
DX: M54.16 Radiculopathy, lumbar region (principal); R29.6 Repeated falls; Z76.5 Malingerer [conscious simulation]; J44.9 Chronic obstructive pulmonary disease, unspecified; I10 Essential (primary) hypertension; E78.5 Hyperlipidemia, unspecified; J45.909 Unspecified asthma, uncomplicated; Z79.899 Other long term (current) drug therapy
CPT/HCPCS: 36415; 70450; 72125; 74177; 80053; 82248; 83690; 84484; 85025; 93005; 96361; 96374; 96375; 99285; J2270; J2405; Q9967

== ENCOUNTER 2024-02-18 13:28 | Emergency (ER) | payer OTHER, SELFPAY ==
--- NOTE | ~2024-02-18 | XR_ITS ---
EXAMINATION: XR CHEST CLINICAL INFORMATION: Chest pain. COMPARISON: Prior chest radiographs, most recently 11/24/2023. TECHNIQUE: Frontal and lateral views of the chest were obtained. FINDINGS: There is stable cardiomegaly. A left subclavian AICD is seen, without lead fracture or change in lead tip positions. Lung volumes are somewhat diminished. No infiltrate, effusion or pneumothorax is seen. There is no acute osseous abnormality. There is multi-level thoracolumbar spondylosis, with an appearance suggesting possible DISH (diffuse idiopathic skeletal hyperostosis). XR/XR chest 2V IMPRESSION: There is cardiomegaly, without congestive heart failure. No infiltrate, effusion or pneumothorax is seen. Electronically signed by: Dank Cam MD 02/18/2024 03:17 PM [facility]
--- NOTE | 2024-02-18 13:32 | ECG_ITS ---
Test Reason : CP Blood Pressure : / mmHG Vent. Rate : 083 BPM Atrial Rate : 083 BPM P-R Int : 208 ms QRS Dur : 164 ms QT Int : 444 ms P-R-T Axes : 073 112 059 degrees QTc Int : 521 ms Sinus rhythm with occasional Premature ventricular complexes Right bundle branch block Abnormal ECG When compared with ECG of 27-DEC-2023 09:26, Premature ventricular complexes are now Present Right bundle branch block has replaced Non-specific intra-ventricular conduction block Referred By: Cherie Roque Electronically Signed By:PATO ROMAN MD
[2024-02-18 13:34] VITALS: BP 115/70; PULSE 67; O2SAT 97
--- NOTE | 2024-02-18 13:34 | ED.GENADULT ---
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 Patient reports walking to the dining room at his facility when he had sudden onset sternal chest pain. He states it feels like his pacemaker fired. Reports collapsing to the ground due to the pain. Denies any trauma to his body sustained during fall. Denies head strike or LOC. Since this time, reports sternal chest pain with radiation down left arm. Admits EMS administered nitro and 4 aspirin in route to ED today however this did not resolve his pain. States that this has happened in the past however not this severe. He denies fever, chills, headache, dizziness, palpitations, shortness of breath. Related Data Home Medications ?Medication ?Instructions ?Recorded ?Confirmed albuterol sulfate 90 mcg/actuation 2 puff inhalation Q4H PRN 08/19/22 01/01/23 aerosol inhaler Shortness Of Breath hydroxyzine pamoate 50 mg capsule 50 mg PO BID Anxiety / Nausea 08/19/22 01/01/23 nitroglycerin 0.4 mg sublingual 0.4 mg sublingual Q5M PRN Chest 08/19/22 01/01/23 tablet Pain sotalol 80 mg tablet 80 mg PO BID 08/19/22 01/01/23 tamsulosin 0.4 mg capsule 0.4 mg PO BEDTIME 08/19/22 01/01/23 levothyroxine 75 mcg tablet 75 mcg PO DAILY@0600 09/08/22 01/01/23 risperidone 1 mg tablet 1.5 mg PO BEDTIME 09/08/22 01/01/23 rivaroxaban 20 mg tablet (Xarelto) 20 mg PO DAILY@1800 09/08/22 01/01/23 acetaminophen 325 mg tablet 650 mg PO Q4H PRN Fever Or Pain 01/01/23 01/01/23 aluminum-mag hydroxide-simethicone 10 ml PO Q4H PRN Constipation 01/01/23 01/01/23 400 mg-400 mg-40 mg/5 mL oral susp (Mylanta Maximum Strength) aspirin 81 mg tablet,delayed 81 mg PO DAILY 01/01/23 01/01/23 release bisacodyl 5 mg tablet,delayed 10 mg PO BEDTIME PRN Constipation 01/01/23 01/01/23 release calcium carbonate (Tums) 300 mg PO Q4H PRN Dyspepsia 01/01/23 01/01/23 cyclobenzaprine 5 mg tablet 5 mg PO TID PRN muscle spasms 01/01/23 01/01/23 escitalopram oxalate 20 mg tablet 20 mg PO DAILY 01/01/23 01/01/23 gabapentin 300 mg capsule 300 mg PO BID 01/01/23 01/01/23 magnesium hydroxide 400 mg/5 mL 30 ml PO DAILY PRN Constipation 01/01/23 01/01/23 oral suspension melatonin 10 mg tablet 10 mg PO BEDTIME PRN Insomnia 01/01/23 01/01/23 metformin 500 mg tablet 500 mg PO DAILY 01/01/23 01/01/23 ondansetron HCl 4 mg tablet 4 mg PO Q4H PRN nausea and 01/01/23 01/01/23 vomitting quetiapine 100 mg tablet 100 mg PO BEDTIME 01/01/23 01/01/23 sumatriptan succinate 50 mg tablet 50 mg PO BID PRN migraines 01/01/23 01/01/23 tramadol 50 mg tablet 50 mg PO Q6H PRN migraines 01/01/23 01/01/23 trazodone 50 mg tablet 25 mg PO BEDTIME 01/01/23 01/01/23 hydroxyzine HCl 50 mg tablet 50 mg PO BEDTIME 12/26/23 trazodone 150 mg tablet 150 mg PO BEDTIME 12/26/23 Previous Rx's ?Medication ?Instructions ?Recorded isosorbide mononitrate 30 mg 30 mg PO DAILY #0 tabs 09/22/21 tablet,extended release 24 hr ezetimibe 10 mg tablet 10 mg PO DAILY 7 days #7 tabs 08/24/22 oxycodone 5 mg tablet 5 mg PO BID PRN pain #4 tabs 01/01/23 prednisone 20 mg tablet 20 mg PO DAILY #5 tabs 01/01/23 cyclobenzaprine 10 mg tablet 10 mg PO TID PRN muscle spasm #10 08/31/23 tabs acetaminophen 325 mg capsule 325 mg PO Q4H PRN pain #30 caps 09/30/23 (Tylenol) lidocaine 5 % topical patch 1 patch topical DAILY PRN pain #15 09/30/23 ea meclizine 25 mg tablet 25 mg PO DAILY PRN dizziness #14 09/30/23 tabs miscellaneous medical supply #1 ea 12/26/23 naloxone 4 mg/actuation nasal 4 mg intranasal Q2M PRN opioid 12/26/23 spray (Narcan) overdose #2 ea oxycodone-acetaminophen 5 mg-325 1 tab PO Q8H PRN pain (scale score 12/26/23 mg tablet 7-10) 7 days #20 tabs Allergies Allergy/AdvReac Type Severity Reaction Status Date / Time aripiprazole [From Abilify] Allergy Severe Rash Verified 02/18/24 13:49 peas Allergy Severe HIVES Verified 02/18/24 13:49 atorvastatin [From Lipitor] Allergy Intermediate Hives Verified 02/18/24 13:49 bee pollen [bee stings] AdvReac Severe Anaphylaxis Verified 02/18/24 13:49 Review of Systems Review of Systems: Constitutional: No fever, chills, fatigue, night sweats, weight changes ENT/Mouth: No ear pain, hearing loss, nasal congestion, sinus pain, rhinorrhea, sore throat Eyes: No eye pain, swelling, redness, vision changes, discharge Cardio: No palpitations, HARRIS, orthopnea, peripheral edema, +chest pain Pulm: No SOB, cough, sputum, wheezing, dyspnea, hemoptysis GI: No nausea, vomiting, hematemesis, abdominal pain, diarrhea, constipation, hematochezia, melena : No irregular bleeding, dysuria, frequency, urgency, hesitancy, hematuria, flank pain, urinary flow changes, urinary incontinence or retention MSK: No back pain, neck pain, joint pain, myalgias Skin: No lesions, rashes Neuro: No weakness, numbness, paresthesias, LOC, dizziness, headache Psych: No anxiety/panic, depression, SI/HI, AH/VH All other systems reviewed and are negative. [facility] Past Medical History Attestation statement: The following information was validated with the patient. Source: old records reviewed and nursing notes reviewed Medical History Somatoform disorder Depression with suicidal ideation Sleep apnea Seizure RBBB Cardiac defibrillator in place Artificial cardiac pacemaker Hyperthyroidism Hyperlipidemia History of ETOH abuse Hypertension GERD (gastroesophageal reflux disease) Diabetes Developmental delay, mild Depression COPD (chronic obstructive pulmonary disease) Asthma Anxiety Surgical History History of cardiac cath Social History Social History Household Members: Other Household Members Other:: 2 roommates Housing: Apartment Housing Other:: Sober House Do you presently have visiting nurse or other home services: No Alcohol intake: never Patient Tobacco Use Status: Never used Tobacco Tobacco use type: Cigarette Smoked in Last 30 Days: No Second Hand Smoke Exposure: No Use of substances other than those prescribed or required for medical reasons: No Substance Use Type: Former Substance User, Prescription Drugs and Caffiene Any prior treatment program specific to substance use: No Advance Directives: No Advance Directives Information Provided: Yes Do you have a plan to hurt others: No Plan service: No Current occupational status: disabled Sexual orientation: Decline to Answer Physical Exam ED Vital Signs: Vital Signs - 24 hr 02/18/24 13:48 02/18/24 16:03 02/18/24 18:38 Temperature 97.9 F 98.3 F 98.1 F Pulse Rate 75 69 72 Respiratory Rate 18 16 16 Blood Pressure 116/57 L 149/80 H 148/83 H Pulse Oximetry 98 97 97 Oxygen Delivery Method Room Air Room Air Room Air BMI result Body Mass Index 37.9 Vital signs stable, afebrile General: Well appearing, in no acute distress. Skin: Warm, dry, intact. No rashes or lesions. Head: Normocephalic, atraumatic. EENT: Hearing is intact b/l. Conjunctiva clear. PERRLA. EOM intact. Moist mucous membranes.? Neck: Supple without LAD Cardiac: Chest wall symmetric. RRR. No JVD. No peripheral edema. There is reproducible tenderness to palpation anterior chest wall without palpable deformity, crepitus. Lungs: Normal respiratory effort without accessory muscle use. CTA bilaterally. No rales, rhonchi, or wheezes.? Abdomen: Soft, non-tender, non-distended. No rebound tenderness or guarding Back: No midline spinous or paraspinal tenderness. No step off deformity. Ext: Upper and lower extremities atraumatic, without tenderness, deformity, swelling or erythema. Full ROM throughout. no calf tenderness. Neuro: AOx3. Normal speech. Ambulating with steady gait. Psych: Appropriate mood and affect. Responds appropriately to questions. Course Course Course Narrative: 1534 -- CBC without leukocytosis or left shift. Normocytic anemia, stable when compared to priors. H&H above transfusion threshold. Chemistry without acute electrolyte abnormality requiring intervention. No TIM. Random glucose 171. Normal liver function. Initial troponin undetectable. Will repeat for delta. BNP WNL 84. CHF unlikely. Lipase WNL. Chest x-ray shows cardiomegaly without congestive heart failure. There is no focal consolidation or infiltrate. No effusion. No pneumothorax. EKG showing sinus rhythm with occasional PVCs, rate 83 beats per minute, right bundle-branch block evident on previous EKGs. No acute ischemic changes or ST elevations. > pending repeat troponin and disposition Reevaluation(s) Reevaluation #1: I Pinky Yadav PA-C accepted care Of the patient and signed out pending delta trop I have independently reviewed the following tests: Delta trop is negative Time: 18:01 Medications Administered Discontinued Medications Generic Name Dose Route Start Last Admin Trade Name Freq PRN Reason Stop Dose Admin Acetaminophen 975 mg 02/18/24 14:33 02/18/24 14:49 Acetaminophen 325 Mg Tablet PO 02/18/24 14:34 975 mg ONCE ONE Administration Ibuprofen 600 mg 02/18/24 16:52 02/18/24 16:59 Ibuprofen 600 Mg Tablet PO 02/18/24 16:53 600 mg ONCE ONE Administration Medical Decision Making Medical Decision Making [facility] Narrative: 64-year-old male pmhx significant for COPD, MDD, somatoform disorder, alcohol abuse, ICD/pacemaker, developmental delay presents to the ED today via EMS from living facility for evaluation of chest pain that began approximately 30 minutes ago. Vital signs stable. Afebrile. Not hypoxic. He is nontoxic appearing and in NAD. On exam, RRR. There is reproducible chest wall tenderness with palpation of anterior chest wall. No palpable deformity or crepitus. Lungs are clear. Differential diagnosis includes ACS, arrhythmia, costochondritis, pleuritis, msk sprain/ strain, viral syndrome, pneumonia. Lower suspicion for PE, effusion, rupture aneurysm. Plan for labs, ekg, cxr, and re-evaluation. Differential Diagnosis Differential Diagnoses: The differential diagnosis associated with the presentation includes as above. Admission/Observation not indicated. Lab Data MDM Lab Attestation statement: I reviewed the patient's lab results. as above. 02/18/24 14:17 02/18/24 14:17 Labs: Lab Results 02/18/24 02/18/24 Range/Units 14:17 17:20 WBC 4.5 L (4.8-10.8) X10*3/uL RBC 4.02 L (4.60-5.80) X10*6/uL Hgb 11.7 L (14.0-18.0) g/dl Hct 34.9 L (42.0-52.0) % MCV 86.8 (80.0-98.0) fL MCH 29.1 (27.0-33.0) pg MCHC 33.5 (31.0-36.0) g/dl RDW 12.7 (11.0-16.0) % Plt Count 80 L (160-400) X10*3/uL MPV 10.9 (9.4-12.4) fL Immature Gran % (Auto) 1.6 H (0.0-0.4) % Neut % (Auto) 55.7 (45-73) % Lymph % (Auto) 23.3 (20-40) % Grady % (Auto) 11.6 H (2-11) % Eos % (Auto) 6.7 H (0-4) % Baso % (Auto) 1.1 (0-2) % Lymph # (Auto) 1.1 L (1.2-4.9) X10*3/uL Grady # (Auto) 0.5 (0.1-1.2) X10*3/uL Eos # (Auto) 0.3 (0.0-0.4) X10*3/uL Baso # (Auto) 0.1 (0.0-0.2) X10*3/uL Abs Immat Gran (auto) 0.07 H (0.00-0.03) X10*3/uL Absolute Neuts (auto) 2.5 (2.0-8.3) x10*3/uL Absolute Nucleated RBC 0.000 (0.0-0.012) X10*3/uL Nucleated RBC % (auto) 0.0 (0.0-0.2) /100WBC Sodium 141 (135-145) mmol/L Potassium 4.4 (3.3-5.1) mmol/L Chloride 109 H (96-108) mmol/L Carbon Dioxide 24 (22-29) mmol/L Anion Gap 12 (12-20) BUN 11 (9-16) mg/dL Creatinine 1.03 (0.5-1.4) mg/dL Estim Creat Clear Calc 93.6 Estimated GFR > 60 Random Glucose 171 H (60-115) mg/dL Calcium 7.9 L (8.4-10.2) mg/dL Magnesium 1.8 (1.6-2.6) mg/dL Total Bilirubin 0.3 (0.0-1.0) mg/dL AST 17 (5-37) U/L ALT 18 (0-40) U/L Alkaline Phosphatase 68 (39-117) U/L Troponin I High Sens < 2.7 D < 2.7 (<3.5-35.0) ng/L B-Natriuretic Peptide 84 (<100) pg/mL Total Protein 5.7 L (6.5-8.0) g/dL Albumin 3.5 (3.5-5.0) g/dL Lipase 25 (8-78) U/L Independent Interpretation I performed an independent interpretation of an: EKG and Plain X-Ray Interpretation: EKG showing sinus rhythm with occasional PVCs, rate of 83 beats per minute times, right bundle-branch block evident on prior EKGs, no acute ischemic changes or ST elevations. CXR showing without effusion Radiology Impression Discussion of test interpretation with radiology: I have reviewed the radiologist's reading. Radiologist Impression: EXAMINATION: XR CHEST CLINICAL INFORMATION: Chest pain. COMPARISON: Prior chest radiographs, most recently 11/24/2023. TECHNIQUE: Frontal and lateral views of the chest were obtained. FINDINGS: There is stable cardiomegaly. A left subclavian AICD is seen, without lead fracture or change in lead tip positions. Lung volumes are somewhat diminished. No infiltrate, effusion or pneumothorax is seen. There is no acute osseous abnormality. There is multi-level thoracolumbar spondylosis, with an appearance suggesting possible DISH (diffuse idiopathic skeletal hyperostosis). XR/XR chest 2V IMPRESSION: There is cardiomegaly, without congestive heart failure. No infiltrate, effusion or pneumothorax is seen. Electronically signed by: Dank Cam MD 02/18/2024 03:17 PM [facility] Independent Historian Clinical information obtained from an independent historian. History obtained from or confirmed by: EMS External Record Review External record reviewed: Inpatient record, Office record, Outpatient record, Prior outpatient labs, Prior outpatient radiology, Primary care record and Outside ED record Prescription Management I considered prescription management with: Pain Medication Social Determinants Patient?s care significantly limited by Social Determinants of Health including: Other Social Determinant of Health Critical Care Time Critical Care Time Critical Care Time: No Discharge Plan Discharge Clinical Impression: Chest pain Patient Disposition: Still a Patient Instructions: Chest Pain (ED) Additional Instructions: You were evaluated in the Emergency Department today for chest pain. 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 If you do not have one, a referral has been provided. Please call them to make an appointment, they will not call you. Return to the Emergency Department if you experience worsening or uncontrolled chest pain, shortness of breath, light headedness, feeling faint, nausea, vomiting, or any other concerning symptoms. Prescriptions: No Action isosorbide mononitrate 30 mg Tablet Extended Release 24 Hr 30 mg PO DAILY Qty: 0 0RF Protocol: Hold for SBP< HOLD for SBP < : 90 sotalol 80 mg tablet 80 mg PO BID hydroxyzine pamoate 50 mg capsule 50 mg PO BID tamsulosin 0.4 mg capsule 0.4 mg PO BEDTIME nitroglycerin 0.4 mg tablet, sublingual 0.4 mg sublingual Q5M PRN (Reason: Chest Pain) albuterol sulfate 90 mcg/actuation HFA aerosol inhaler 2 puff inhalation Q4H PRN (Reason: Shortness Of Breath) ezetimibe 10 mg Tablet 10 mg PO DAILY 7 Days Qty: 7 0RF risperidone 1 mg tablet 1.5 mg PO BEDTIME Xarelto 20 mg tablet 20 mg PO DAILY@1800 levothyroxine 75 mcg tablet 75 mcg PO DAILY@0600 acetaminophen 325 mg tablet 650 mg PO Q4H PRN (Reason: Fever Or Pain) metformin 500 mg tablet 500 mg PO DAILY trazodone 50 mg tablet 25 mg PO BEDTIME ondansetron HCl 4 mg Tablet 4 mg PO Q4H PRN (Reason: nausea and vomitting) sumatriptan succinate 50 mg tablet 50 mg PO BID PRN (Reason: migraines) Rx Instructions: wait 2 hours between doses calcium carbonate [Tums] 300 mg (750 mg) Tablet,Chewable 300 mg PO Q4H PRN (Reason: Dyspepsia) aspirin 81 mg tablet,delayed release (DR/EC) 81 mg PO DAILY tramadol 50 mg tablet 50 mg PO Q6H PRN (Reason: migraines) quetiapine 100 mg tablet 100 mg PO BEDTIME magnesium hydroxide 400 mg/5 mL Suspension 30 ml PO DAILY PRN (Reason: Constipation) gabapentin 300 mg capsule 300 mg PO BID bisacodyl 5 mg Tablet,Delayed Release (Dr/Ec) 10 mg PO BEDTIME PRN (Reason: Constipation) alum-mag hydroxide-simeth [Mylanta Maximum Strength] 400-400-40 mg/5 mL Suspension 10 ml PO Q4H PRN (Reason: Constipation) escitalopram oxalate 20 mg Tablet 20 mg PO DAILY cyclobenzaprine 5 mg tablet 5 mg PO TID PRN (Reason: muscle spasms) melatonin 10 mg Tablet 10 mg PO BEDTIME PRN (Reason: Insomnia) prednisone 20 mg tablet 20 mg PO DAILY Qty: 5 0RF oxycodone 5 mg tablet 5 mg PO BID PRN (Reason: pain) Qty: 4 0RF Rx Instructions: Partial Fill upon patient request. cyclobenzaprine 10 mg tablet 10 mg PO TID PRN (Reason: muscle spasm) Qty: 10 0RF meclizine 25 mg tablet 25 mg PO DAILY PRN (Reason: dizziness) Qty: 14 0RF lidocaine 5 % adhesive patch,medicated 1 patch topical DAILY PRN (Reason: pain) Qty: 15 0RF Rx Instructions: leave on most painful area for up to 12 hrs acetaminophen [Tylenol] 325 mg capsule 325 mg PO Q4H PRN (Reason: pain) Qty: 30 0RF trazodone 150 mg tablet 150 mg PO BEDTIME hydroxyzine HCl 50 mg tablet 50 mg PO BEDTIME (DME) miscellaneous medical supply Misc See Rx Instructions .Route Qty: 1 0RF Rx Instructions: Quad cane use As directed oxycodone-acetaminophen 5-325 mg tablet 1 tab PO Q8H PRN (Reason: pain (scale score 7-10)) 7 Days Qty: 20 0RF Rx Instructions: Partial Fill upon patient request. naloxone [Narcan] 4 mg/actuation spray,non-aerosol 4 mg intranasal Q2M PRN (Reason: opioid overdose) Qty: 2 0RF Rx Instructions: spray 1 dose into ONE nostril; alternate nostrils w each dose until help arrives Print Language: Uzbek
[2024-02-18 13:48] VITALS: BP 116/57; PULSE 75; RESP 18; TEMP 36.6; O2SAT 98; BMI 37.9
[2024-02-18 14:22] LABS: Basophils Absolute Auto 0.1 X10*3/uL (0.0-0.2); Basophils Percent Auto 1.1 % (0-2); Eosinophils Absolute Auto 0.3 X10*3/uL (0.0-0.4); Eosinophils Percent Auto 6.7 % (0-4); Hematocrit 34.9 % (42.0-52.0); Hemoglobin 11.7 g/dl (14.0-18.0); Imm Gran Abs Auto 0.07 X10*3/uL (0.00-0.03); Imm Gran Pct Auto 1.6 % (0.0-0.4); Lymphocytes Absolute Auto 1.1 X10*3/uL (1.2-4.9); Lymphocytes Percent Auto 23.3 % (20-40); MANUAL DIFF FLAG NO; Mean Corpuscular HGB Conc 33.5 g/dl (31.0-36.0); Mean Corpuscular Hemoglobin 29.1 pg (27.0-33.0); Mean Corpuscular Volume 86.8 fL (80.0-98.0); Mean Platelet Volume 10.9 fL (9.4-12.4); Monocytes Absolute Auto 0.5 X10*3/uL (0.1-1.2); Monocytes Percent Auto 11.6 % (2-11); Neutrophils Absolute Auto 2.5 x10*3/uL (2.0-8.3); Neutrophils Percent Auto 55.7 % (45-73); Red Blood Count 4.02 X10*6/uL (4.60-5.80); Red Cell Distribution Width 12.7 % (11.0-16.0); White Blood Count 4.5 X10*3/uL (4.8-10.8)
[2024-02-18 14:24] LABS: Platelet Count 80 X10*3/uL (160-400)
[2024-02-18 14:36] LABS: Alanine Aminotransferase 18 U/L (0-40); Albumin Level 3.5 g/dL (3.5-5.0); Alkaline Phosphatase 68 U/L (39-117); Anion Gap 12 (12-20); Aspartate Amino Transferase 17 U/L (5-37); Bilirubin Total 0.3 mg/dL (0.0-1.0); Blood Urea Nitrogen 11 mg/dL (9-16); Calcium 7.9 mg/dL (8.4-10.2); Carbon Dioxide 24 mmol/L (22-29); Chloride 109 mmol/L (96-108); Creatinine Clr Calc Pharmacy 93.6; Estimated Glomerular Filt Rate > 60; Glucose Random 171 mg/dL (60-115); Lipase 25 U/L (8-78); Magnesium 1.8 mg/dL (1.6-2.6); Potassium 4.4 mmol/L (3.3-5.1); Sodium 141 mmol/L (135-145); Total Protein 5.7 g/dL (6.5-8.0)
[2024-02-18 14:42] LABS: B Type Natriuretic Peptide 84 pg/mL (<100)
[2024-02-18 14:45] LABS: Troponin-I High Sensitivity < 2.7 ng/L (<3.5-35.0)
[2024-02-18] MEDS: Acetaminophen 325 MG TABLET 975 MG PO (14:49)
[2024-02-18 16:03] VITALS: BP 149/80; PULSE 69; RESP 16; TEMP 36.8; O2SAT 97
[2024-02-18] MEDS: Ibuprofen 600 MG TABLET PO (16:59)
[2024-02-18 17:58] LABS: Troponin-I High Sensitivity < 2.7 ng/L (<3.5-35.0)
--- NOTE | 2024-02-18 18:26 | PC.NURSE ---
attempt x 2 to call RN at [facility] 2nd floor to give report no anwser. will try again in 10min.
[2024-02-18 18:38] VITALS: BP 148/83; PULSE 72; RESP 16; TEMP 36.7; O2SAT 97
--- NOTE | 2024-02-18 18:43 | PC.NURSE ---
attempt to called [facility] x 2 more times with no anwser. 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
--- NOTE | 2024-02-18 19:01 | PC.NURSE ---
report received from prev rn and pt is waiting for ride home via ambulance at 2030
[2024-02-18 20:38] VITALS: BP 148/83; PULSE 72; RESP 16; TEMP 36.7; O2SAT 97
== END 2024-02-18 20:39 | disposition home or self-care (01) ==
PROVIDERS: Physician Assistant Medical; Emergency Provider Emergency Medicine
DX: R07.89 Other chest pain (principal); R62.50 Unspecified lack of expected normal physiological development in childhood; J44.9 Chronic obstructive pulmonary disease, unspecified; I45.10 Unspecified right bundle-branch block; R94.31 Abnormal electrocardiogram [ECG] [EKG]; Z79.899 Other long term (current) drug therapy
CPT/HCPCS: 36415; 71046; 80053; 83690; 83735; 83880; 84484; 85025; 93005; 99285

== ENCOUNTER → 2024-02-18 13:32 | Outpatient (BNV) | payer OTHER, SELFPAY | PROVIDERS: Emergency Provider Emergency Medicine; Visit Provider Internal Medicine Cardiovascular Disease | DX: I49.3 Ventricular premature depolarization (principal) | CPT/HCPCS: 93010 ==

== ENCOUNTER 2024-02-25 17:47 | Emergency (ER) | payer OTHER, SELFPAY ==
[2024-02-25 17:51] VITALS: BP 128/81; BP 130/64; PULSE 81; PULSE 87; RESP 20; TEMP 36.6; O2SAT 98; O2SAT 99; BMI 37.7
--- NOTE | 2024-02-25 17:54 | ECG_ITS ---
Test Reason : CHEST PAIN Blood Pressure : / mmHG Vent. Rate : 082 BPM Atrial Rate : 082 BPM P-R Int : 216 ms QRS Dur : 172 ms QT Int : 442 ms P-R-T Axes : 071 109 045 degrees QTc Int : 516 ms Sinus rhythm with 1st degree A-V block Right bundle branch block Abnormal ECG When compared with ECG of 18-FEB-2024 13:36, No significant changes seen Referred By: Generic ED Physician Electronically Signed By:PEPE CABALLERO
--- NOTE | 2024-02-25 18:06 | PC.NURSE ---
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 Pt reported she was walking to bathroom when he felt his defib/pacemaker go off causing more pain. Alert and oriented, breathing even and unlabored, skin warm and dry. NSR on bedside obstetrics/gynecology nurse. EMS gave 4mg of IM zofran and 324 mg of ASA.
[2024-02-25 18:22] LABS: MANUAL DIFF FLAG NO
[2024-02-25 18:24] LABS: Basophils Absolute Auto 0.1 X10*3/uL (0.0-0.2); Basophils Percent Auto 1.2 % (0-2); Eosinophils Absolute Auto 0.5 X10*3/uL (0.0-0.4); Eosinophils Percent Auto 8.2 % (0-4); Hematocrit 35.3 % (42.0-52.0); Hemoglobin 11.9 g/dl (14.0-18.0); Imm Gran Abs Auto 0.15 X10*3/uL (0.00-0.03); Imm Gran Pct Auto 2.7 % (0.0-0.4); Lymphocytes Absolute Auto 1.5 X10*3/uL (1.2-4.9); Lymphocytes Percent Auto 25.9 % (20-40); Mean Corpuscular HGB Conc 33.7 g/dl (31.0-36.0); Mean Corpuscular Volume 85.9 fL (80.0-98.0); Mean Platelet Volume 11.1 fL (9.4-12.4); Monocytes Absolute Auto 0.6 X10*3/uL (0.1-1.2); Monocytes Percent Auto 11.2 % (2-11); Neutrophils Absolute Auto 2.9 x10*3/uL (2.0-8.3); Neutrophils Percent Auto 50.8 % (45-73); Red Blood Count 4.11 X10*6/uL (4.60-5.80); Red Cell Distribution Width 12.8 % (11.0-16.0); White Blood Count 5.6 X10*3/uL (4.8-10.8)
[2024-02-25 18:25] LABS: Platelet Count 88 X10*3/uL (160-400)
[2024-02-25 18:40] VITALS: BP 131/72; PULSE 81; RESP 15; TEMP 36.5; O2SAT 97
[2024-02-25 18:53] LABS: Troponin-I High Sensitivity < 2.7 ng/L (<3.5-35.0)
[2024-02-25 18:57] LABS: Alanine Aminotransferase 25 U/L (0-40); Albumin Level 3.7 g/dL (3.5-5.0); Alkaline Phosphatase 79 U/L (39-117); Anion Gap 12 (12-20); Aspartate Amino Transferase 21 U/L (5-37); Bilirubin Total 0.3 mg/dL (0.0-1.0); Blood Urea Nitrogen 17 mg/dL (9-16); Calcium 7.6 mg/dL (8.4-10.2); Carbon Dioxide 26 mmol/L (22-29); Chloride 104 mmol/L (96-108); Creatinine Clr Calc Pharmacy 69.1; Estimated Glomerular Filt Rate 52; Glucose Random 237 mg/dL (60-115); Potassium 4.2 mmol/L (3.3-5.1); Sodium 138 mmol/L (135-145)
--- NOTE | 2024-02-25 19:06 | ED.CHESTPAIN ---
HPI - Chest Pain General Chief Complaint: Chest Pain Stated Complaint: l sided chest pain Time Seen by Provider: 02/25/24 18:34 Source: patient Mode of arrival: EMS Limitations: no limitations History of Present Illness ED Provider: christiano HUANG narrative: 62-year-old male with history of CAD with cardiac defibrillator in place, tetralogy of fallot s/p repair, asthma, anxiety / depression, COPD, controlled type 2 diabetes, hypothyroidism, hypertension, hyperlipidemia, GERD, history of seizure disorder, and obstructive sleep apnea with anxiety disorder comes here as he felt a shock from his defibrillator at 17:30 patient is asking for pain medication feels pain at the site of the defibrillator patient has been here 2 more times for similar reasons no shortness a breath no radiation of the pain Related Data Home Medications ?Medication ?Instructions ?Recorded ?Confirmed albuterol sulfate 90 mcg/actuation 2 puff inhalation Q4H PRN 08/19/22 01/01/23 aerosol inhaler Shortness Of Breath hydroxyzine pamoate 50 mg capsule 50 mg PO BID Anxiety / Nausea 08/19/22 01/01/23 nitroglycerin 0.4 mg sublingual 0.4 mg sublingual Q5M PRN Chest 08/19/22 01/01/23 tablet Pain sotalol 80 mg tablet 80 mg PO BID 08/19/22 01/01/23 tamsulosin 0.4 mg capsule 0.4 mg PO BEDTIME 08/19/22 01/01/23 levothyroxine 75 mcg tablet 75 mcg PO DAILY@0600 09/08/22 01/01/23 risperidone 1 mg tablet 1.5 mg PO BEDTIME 09/08/22 01/01/23 rivaroxaban 20 mg tablet (Xarelto) 20 mg PO DAILY@1800 09/08/22 01/01/23 acetaminophen 325 mg tablet 650 mg PO Q4H PRN Fever Or Pain 01/01/23 01/01/23 aluminum-mag hydroxide-simethicone 10 ml PO Q4H PRN Constipation 01/01/23 01/01/23 400 mg-400 mg-40 mg/5 mL oral susp (Mylanta Maximum Strength) aspirin 81 mg tablet,delayed 81 mg PO DAILY 01/01/23 01/01/23 release bisacodyl 5 mg tablet,delayed 10 mg PO BEDTIME PRN Constipation 01/01/23 01/01/23 release calcium carbonate (Tums) 300 mg PO Q4H PRN Dyspepsia 01/01/23 01/01/23 cyclobenzaprine 5 mg tablet 5 mg PO TID PRN muscle spasms 01/01/23 01/01/23 escitalopram oxalate 20 mg tablet 20 mg PO DAILY 01/01/23 01/01/23 gabapentin 300 mg capsule 300 mg PO BID 01/01/23 01/01/23 magnesium hydroxide 400 mg/5 mL 30 ml PO DAILY PRN Constipation 01/01/23 01/01/23 oral suspension melatonin 10 mg tablet 10 mg PO BEDTIME PRN Insomnia 01/01/23 01/01/23 metformin 500 mg tablet 500 mg PO DAILY 01/01/23 01/01/23 ondansetron HCl 4 mg tablet 4 mg PO Q4H PRN nausea and 01/01/23 01/01/23 vomitting quetiapine 100 mg tablet 100 mg PO BEDTIME 01/01/23 01/01/23 sumatriptan succinate 50 mg tablet 50 mg PO BID PRN migraines 01/01/23 01/01/23 tramadol 50 mg tablet 50 mg PO Q6H PRN migraines 01/01/23 01/01/23 trazodone 50 mg tablet 25 mg PO BEDTIME 01/01/23 01/01/23 hydroxyzine HCl 50 mg tablet 50 mg PO BEDTIME 12/26/23 trazodone 150 mg tablet 150 mg PO BEDTIME 12/26/23 Previous Rx's ?Medication ?Instructions ?Recorded isosorbide mononitrate 30 mg 30 mg PO DAILY #0 tabs 09/22/21 tablet,extended release 24 hr ezetimibe 10 mg tablet 10 mg PO DAILY 7 days #7 tabs 08/24/22 oxycodone 5 mg tablet 5 mg PO BID PRN pain #4 tabs 01/01/23 prednisone 20 mg tablet 20 mg PO DAILY #5 tabs 01/01/23 cyclobenzaprine 10 mg tablet 10 mg PO TID PRN muscle spasm #10 08/31/23 tabs acetaminophen 325 mg capsule 325 mg PO Q4H PRN pain #30 caps 09/30/23 (Tylenol) lidocaine 5 % topical patch 1 patch topical DAILY PRN pain #15 09/30/23 ea meclizine 25 mg tablet 25 mg PO DAILY PRN dizziness #14 09/30/23 tabs miscellaneous medical supply #1 ea 12/26/23 naloxone 4 mg/actuation nasal 4 mg intranasal Q2M PRN opioid 12/26/23 spray (Narcan) overdose #2 ea oxycodone-acetaminophen 5 mg-325 1 tab PO Q8H PRN pain (scale score 12/26/23 mg tablet 7-10) 7 days #20 tabs Allergies Allergy/AdvReac Type Severity Reaction Status Date / Time aripiprazole [From Abilify] Allergy Severe Rash Verified 02/25/24 17:54 peas Allergy Severe HIVES Verified 02/18/24 13:49 atorvastatin [From Lipitor] Allergy Intermediate Hives Verified 02/18/24 13:49 bee pollen [bee stings] AdvReac Severe Anaphylaxis Verified 02/18/24 13:49 Review of Systems Review of Systems: Yes all other systems are reviewed and are negative PMFSH Past Medical History Medical History Somatoform disorder Depression with suicidal ideation Sleep apnea Seizure RBBB Cardiac defibrillator in place Artificial cardiac pacemaker Hyperthyroidism Hyperlipidemia History of ETOH abuse Hypertension GERD (gastroesophageal reflux disease) Diabetes Developmental delay, mild Depression COPD (chronic obstructive pulmonary disease) Asthma Anxiety Surgical History History of cardiac cath Social History Social History Household Members: Other Household Members Other:: 2 roommates Housing: Apartment Housing Other:: Sober House Do you presently have visiting nurse or other home services: No Alcohol intake: never Patient Tobacco Use Status: Never used Tobacco Tobacco use type: Cigarette Smoked in Last 30 Days: No Second Hand Smoke Exposure: No Use of substances other than those prescribed or required for medical reasons: No Substance Use Type: Former Substance User, Prescription Drugs and Caffiene Advance Directives: No Advance Directives Information Provided: Yes service: No Current occupational status: disabled Sexual orientation: Decline to Answer Physical Exam Vital Signs: Vital Signs: Last Vital Signs Temp 97.4 F 02/25/24 22:57 Pulse 80 02/25/24 22:57 Resp 16 02/25/24 22:57 BP 116/70 02/25/24 22:57 Pulse Ox 96 02/25/24 22:57 O2 Del Method Room Air 02/25/24 22:57 BMI result Body Mass Index 37.7 Appearance: Alert. Oriented X3. No acute distress. Anxious Eyes: No pallor or icterus ENT: Pharynx normal. Oral Mucosa moist Neck: Normal inspection. Neck supple. CVS: Normal heart rate and rhythm. Pulses normal. Respiratory: No respiratory distress. Equal air entry bilateral, no wheezing/rales/rhonchi left chest wall tenderness Abdomen: Soft and nontender. Bowel sounds are present, no mass palpable, no CVA tenderness Skin: Skin warm and dry. Normal skin color. Normal skin turgor. Extremities: No lower extremity edema. No calf tenderness Neuro: Oriented X 3. No motor deficit. 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 02/25/24 18:15 02/25/24 18:15 Labs: Lab Results 02/25/24 Range/Units 18:15 WBC 5.6 (4.8-10.8) X10*3/uL RBC 4.11 L (4.60-5.80) X10*6/uL Hgb 11.9 L (14.0-18.0) g/dl Hct 35.3 L (42.0-52.0) % MCV 85.9 (80.0-98.0) fL MCH 29.0 (27.0-33.0) pg MCHC 33.7 (31.0-36.0) g/dl RDW 12.8 (11.0-16.0) % Plt Count 88 L (160-400) X10*3/uL MPV 11.1 (9.4-12.4) fL Immature Gran % (Auto) 2.7 H (0.0-0.4) % Neut % (Auto) 50.8 (45-73) % Lymph % (Auto) 25.9 (20-40) % [place]kin % (Auto) 11.2 H (2-11) % Eos % (Auto) 8.2 H (0-4) % Baso % (Auto) 1.2 (0-2) % Lymph # (Auto) 1.5 (1.2-4.9) X10*3/uL [place]kin # (Auto) 0.6 (0.1-1.2) X10*3/uL Eos # (Auto) 0.5 H (0.0-0.4) X10*3/uL Baso # (Auto) 0.1 (0.0-0.2) X10*3/uL Abs Immat Gran (auto) 0.15 H (0.00-0.03) X10*3/uL Absolute Neuts (auto) 2.9 (2.0-8.3) x10*3/uL Absolute Nucleated RBC 0.000 (0.0-0.012) X10*3/uL Nucleated RBC % (auto) 0.0 (0.0-0.2) /100WBC Sodium 138 (135-145) mmol/L Potassium 4.2 (3.3-5.1) mmol/L Chloride 104 (96-108) mmol/L Carbon Dioxide 26 (22-29) mmol/L Anion Gap 12 (12-20) BUN 17 H (9-16) mg/dL Creatinine 1.39 (0.5-1.4) mg/dL Estim Creat Clear Calc 69.1 Estimated GFR 52 Random Glucose 237 H (60-115) mg/dL Calcium 7.6 L (8.4-10.2) mg/dL Total Bilirubin 0.3 (0.0-1.0) mg/dL AST 21 (5-37) U/L ALT 25 (0-40) U/L Alkaline Phosphatase 79 (39-117) U/L Troponin I High Sens < 2.7 (<3.5-35.0) ng/L Total Protein 6.0 L (6.5-8.0) g/dL Albumin 3.7 (3.5-5.0) g/dL Independent Interpretation I performed an independent interpretation of an: EKG Interpretation: Normal sinus rhythm with first-degree heart block right bundle-branch block no acute STT wave changes no acute ischemia Discharge Plan Discharge Clinical Impression: Atypical chest pain Patient Disposition: Home, Self-Care Instructions: Chest Wall Pain (ED) Additional Instructions: Your defibrillator check was negative for shock No cardiac event noticed 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 Prescriptions: No Action isosorbide mononitrate 30 mg Tablet Extended Release 24 Hr 30 mg PO DAILY Qty: 0 0RF Protocol: Hold for SBP< HOLD for SBP < : 90 sotalol 80 mg tablet 80 mg PO BID hydroxyzine pamoate 50 mg capsule 50 mg PO BID tamsulosin 0.4 mg capsule 0.4 mg PO BEDTIME nitroglycerin 0.4 mg tablet, sublingual 0.4 mg sublingual Q5M PRN (Reason: Chest Pain) albuterol sulfate 90 mcg/actuation HFA aerosol inhaler 2 puff inhalation Q4H PRN (Reason: Shortness Of Breath) ezetimibe 10 mg Tablet 10 mg PO DAILY 7 Days Qty: 7 0RF risperidone 1 mg tablet 1.5 mg PO BEDTIME Xarelto 20 mg tablet 20 mg PO DAILY@1800 levothyroxine 75 mcg tablet 75 mcg PO DAILY@0600 acetaminophen 325 mg tablet 650 mg PO Q4H PRN (Reason: Fever Or Pain) metformin 500 mg tablet 500 mg PO DAILY trazodone 50 mg tablet 25 mg PO BEDTIME ondansetron HCl 4 mg Tablet 4 mg PO Q4H PRN (Reason: nausea and vomitting) sumatriptan succinate 50 mg tablet 50 mg PO BID PRN (Reason: migraines) Rx Instructions: wait 2 hours between doses calcium carbonate [Tums] 300 mg (750 mg) Tablet,Chewable 300 mg PO Q4H PRN (Reason: Dyspepsia) aspirin 81 mg tablet,delayed release (DR/EC) 81 mg PO DAILY tramadol 50 mg tablet 50 mg PO Q6H PRN (Reason: migraines) quetiapine 100 mg tablet 100 mg PO BEDTIME magnesium hydroxide 400 mg/5 mL Suspension 30 ml PO DAILY PRN (Reason: Constipation) gabapentin 300 mg capsule 300 mg PO BID bisacodyl 5 mg Tablet,Delayed Release (Dr/Ec) 10 mg PO BEDTIME PRN (Reason: Constipation) alum-mag hydroxide-simeth [Mylanta Maximum Strength] 400-400-40 mg/5 mL Suspension 10 ml PO Q4H PRN (Reason: Constipation) escitalopram oxalate 20 mg Tablet 20 mg PO DAILY cyclobenzaprine 5 mg tablet 5 mg PO TID PRN (Reason: muscle spasms) melatonin 10 mg Tablet 10 mg PO BEDTIME PRN (Reason: Insomnia) prednisone 20 mg tablet 20 mg PO DAILY Qty: 5 0RF oxycodone 5 mg tablet 5 mg PO BID PRN (Reason: pain) Qty: 4 0RF Rx Instructions: Partial Fill upon patient request. cyclobenzaprine 10 mg tablet 10 mg PO TID PRN (Reason: muscle spasm) Qty: 10 0RF meclizine 25 mg tablet 25 mg PO DAILY PRN (Reason: dizziness) Qty: 14 0RF lidocaine 5 % adhesive patch,medicated 1 patch topical DAILY PRN (Reason: pain) Qty: 15 0RF Rx Instructions: leave on most painful area for up to 12 hrs acetaminophen [Tylenol] 325 mg capsule 325 mg PO Q4H PRN (Reason: pain) Qty: 30 0RF trazodone 150 mg tablet 150 mg PO BEDTIME hydroxyzine HCl 50 mg tablet 50 mg PO BEDTIME (DME) miscellaneous medical supply Misc See Rx Instructions .Route Qty: 1 0RF Rx Instructions: Quad cane use As directed oxycodone-acetaminophen 5-325 mg tablet 1 tab PO Q8H PRN (Reason: pain (scale score 7-10)) 7 Days Qty: 20 0RF Rx Instructions: Partial Fill upon patient request. naloxone [Narcan] 4 mg/actuation spray,non-aerosol 4 mg intranasal Q2M PRN (Reason: opioid overdose) Qty: 2 0RF Rx Instructions: spray 1 dose into ONE nostril; alternate nostrils w each dose until help arrives Interventions: ED Discharge Assessment Last Done: 02/25/24 22:57 Discharge Date/Time: 02/25/24 22:59 Print Language: Wolof
--- NOTE | 2024-02-25 19:21 | PC.NURSE ---
Took over care from JERRELL Cage, Provider at the bedside assess pacer/defib.
--- NOTE | 2024-02-25 20:19 | PC.NURSE ---
pt given a sandwich and drink, awaiting ambulance back to facility
--- NOTE | 2024-02-25 21:05 | PC.NURSE ---
pt given a pudding and a drink.
[2024-02-25 21:18] VITALS: BP 116/70; PULSE 80; RESP 16; TEMP 36.3; O2SAT 96
--- NOTE | 2024-02-25 22:51 | PC.NURSE ---
Call multiple times to facility no answer, called extension 3 was transferred to unit still no answer, call back 4 additional time and was put on hold and then hung up on, Called got a hold of [employer] who said not sure why no one picking up the phone , no one available to take report. In formed them to please have someone call the ER for report.
[2024-02-25 22:57] VITALS: BP 116/70; PULSE 80; RESP 16; TEMP 36.3; O2SAT 96
== END 2024-02-25 22:59 | disposition home or self-care (01) ==
PROVIDERS: Emergency Provider Internal Medicine
DX: R07.89 Other chest pain (principal); I25.10 Atherosclerotic heart disease of native coronary artery without angina pectoris; E11.9 Type 2 diabetes mellitus without complications; I10 Essential (primary) hypertension; E03.9 Hypothyroidism, unspecified; Z79.899 Other long term (current) drug therapy; Z87.891 Personal history of nicotine dependence
CPT/HCPCS: 36415; 80053; 84484; 85025; 93005; 99284; 99285

== ENCOUNTER → 2024-02-25 17:54 | Outpatient (BNV) | payer OTHER, SELFPAY | PROVIDERS: Emergency Provider Internal Medicine; Visit Provider Internal Medicine | DX: R07.9 Chest pain, unspecified (principal); I45.10 Unspecified right bundle-branch block; R94.31 Abnormal electrocardiogram [ECG] [EKG] | CPT/HCPCS: 93010 ==

== ENCOUNTER 2024-03-28 14:40 | Emergency (ER) | payer OTHER, SELFPAY ==
[2024-03-28] VITALS (7 sets, daily range): BP systolic 102–114; BP diastolic 71–79; PULSE 78–91; RESP 14–20; TEMP 36.4–37; O2SAT 97–98; BMI 37.4
--- NOTE | ~2024-03-28 | XR_ITS ---
EXAMINATION: XR CHEST CLINICAL INFORMATION: cp COMPARISON: Numerous priors, most recently 02/18/2024. TECHNIQUE: AP portable view of the chest was obtained. FINDINGS: There is a left chest wall 3-lead pacer/AICD device in place, with leads extending into the right ventricle and right atrium. The cardiac, hilar, and mediastinal contours are normal. High riding aortic arch, unchanged. Prior sternotomy, likely as a child. Lungs appear clear bilaterally. Mild degenerative changes in the spine and both shoulder joints. XR/XR chest 1V IMPRESSION: No active disease. AICD device. Electronically signed by: Lewis Ford MD 03/28/2024 04:12 PM DANYELLE
--- NOTE | 2024-03-28 14:54 | ED_ITS ---
HPI - Chest Pain General Chief Complaint: Chest Pain Stated Complaint: CP FROM PCP OFFICE PER EMS Time Seen by Provider: 03/28/24 14:53 Source: patient, EMS, RN notes reviewed and old records reviewed Mode of arrival: EMS History of Present Illness ED Provider: Yuli Loya PA-C HPI narrative: 64-year-old male with a past medical history developmental delay, somatoform disorder, COPD / asthma, A.fib on Xarelto, V. tach s/p AICD, Tetralogy of Fallot s/p repair, anxiety, depression, COPD, diabetes, hypothyroid, HTN, HLD, GERD, seizure disorder, PONCE, ETOH abuse presenting to the ED via EMS from from [facility] complaining of chest pain and lightheadedness episode [employer]. Patient also reports left-sided headache, nausea, and blurry vision since syncope w/fall & head strike last week which he was evaluated at [facility]. States had CT scans which were unremarkable. States headache/visual changes are unchanged from fall. Denies weakness, vomiting, SOB, pedal tanya Related Data Home Medications ?Medication ?Instructions ?Recorded ?Confirmed albuterol sulfate 90 mcg/actuation 2 puff inhalation Q4H PRN 08/19/22 01/01/23 aerosol inhaler Shortness Of Breath hydroxyzine pamoate 50 mg capsule 50 mg PO BID Anxiety / Nausea 08/19/22 01/01/23 nitroglycerin 0.4 mg sublingual 0.4 mg sublingual Q5M PRN Chest 08/19/22 01/01/23 tablet Pain sotalol 80 mg tablet 80 mg PO BID 08/19/22 01/01/23 tamsulosin 0.4 mg capsule 0.4 mg PO BEDTIME 08/19/22 01/01/23 levothyroxine 75 mcg tablet 75 mcg PO DAILY@0600 09/08/22 01/01/23 risperidone 1 mg tablet 1.5 mg PO BEDTIME 09/08/22 01/01/23 rivaroxaban 20 mg tablet (Xarelto) 20 mg PO DAILY@1800 09/08/22 01/01/23 acetaminophen 325 mg tablet 650 mg PO Q4H PRN Fever Or Pain 01/01/23 01/01/23 aluminum-mag hydroxide-simethicone 10 ml PO Q4H PRN Constipation 01/01/23 01/01/23 400 mg-400 mg-40 mg/5 mL oral susp (Mylanta Maximum Strength) aspirin 81 mg tablet,delayed 81 mg PO DAILY 01/01/23 01/01/23 release bisacodyl 5 mg tablet,delayed 10 mg PO BEDTIME PRN Constipation 01/01/23 01/01/23 release calcium carbonate (Tums) 300 mg PO Q4H PRN Dyspepsia 01/01/23 01/01/23 cyclobenzaprine 5 mg tablet 5 mg PO TID PRN muscle spasms 01/01/23 01/01/23 escitalopram oxalate 20 mg tablet 20 mg PO DAILY 01/01/23 01/01/23 gabapentin 300 mg capsule 300 mg PO BID 01/01/23 01/01/23 magnesium hydroxide 400 mg/5 mL 30 ml PO DAILY PRN Constipation 01/01/23 01/01/23 oral suspension melatonin 10 mg tablet 10 mg PO BEDTIME PRN Insomnia 01/01/23 01/01/23 metformin 500 mg tablet 500 mg PO DAILY 01/01/23 01/01/23 ondansetron HCl 4 mg tablet 4 mg PO Q4H PRN nausea and 01/01/23 01/01/23 vomitting quetiapine 100 mg tablet 100 mg PO BEDTIME 01/01/23 01/01/23 sumatriptan succinate 50 mg tablet 50 mg PO BID PRN migraines 01/01/23 01/01/23 tramadol 50 mg tablet 50 mg PO Q6H PRN migraines 01/01/23 01/01/23 trazodone 50 mg tablet 25 mg PO BEDTIME 01/01/23 01/01/23 hydroxyzine HCl 50 mg tablet 50 mg PO BEDTIME 12/26/23 trazodone 150 mg tablet 150 mg PO BEDTIME 12/26/23 Previous Rx's ?Medication ?Instructions ?Recorded isosorbide mononitrate 30 mg 30 mg PO DAILY #0 tabs 09/22/21 tablet,extended release 24 hr ezetimibe 10 mg tablet 10 mg PO DAILY 7 days #7 tabs 08/24/22 oxycodone 5 mg tablet 5 mg PO BID PRN pain #4 tabs 01/01/23 prednisone 20 mg tablet 20 mg PO DAILY #5 tabs 01/01/23 cyclobenzaprine 10 mg tablet 10 mg PO TID PRN muscle spasm #10 08/31/23 tabs acetaminophen 325 mg capsule 325 mg PO Q4H PRN pain #30 caps 09/30/23 (Tylenol) lidocaine 5 % topical patch 1 patch topical DAILY PRN pain #15 09/30/23 ea meclizine 25 mg tablet 25 mg PO DAILY PRN dizziness #14 09/30/23 tabs miscellaneous medical supply #1 ea 12/26/23 naloxone 4 mg/actuation nasal 4 mg intranasal Q2M PRN opioid 12/26/23 spray (Narcan) overdose #2 ea oxycodone-acetaminophen 5 mg-325 1 tab PO Q8H PRN pain (scale score 12/26/23 mg tablet 7-10) 7 days #20 tabs Allergies Allergy/AdvReac Type Severity Reaction Status Date / Time aripiprazole [From Abilify] Allergy Severe Rash Verified 03/28/24 14:58 peas Allergy Severe HIVES Verified 02/18/24 13:49 atorvastatin [From Lipitor] Allergy Intermediate Hives Verified 02/18/24 13:49 bee pollen [bee stings] AdvReac Severe Anaphylaxis Verified 02/18/24 13:49 Review of Systems 2 Review of Systems: Yes all other systems are reviewed and are negative Constitutional: Constitutional: Reports as per HPI Neurologic: Denies Abnormal speech present [facility] Past Medical History Attestation statement: The following information was validated with the patient. Source: old records reviewed Medical History Somatoform disorder Depression with suicidal ideation Sleep apnea Seizure RBBB Cardiac defibrillator in place Artificial cardiac pacemaker Hyperthyroidism Hyperlipidemia History of ETOH abuse Hypertension GERD (gastroesophageal reflux disease) Diabetes Developmental delay, mild Depression COPD (chronic obstructive pulmonary disease) Asthma Anxiety Surgical History History of cardiac cath Social History Social History Household Members: Other Household Members Other:: 2 roommates Housing: Apartment Housing Other:: Sober House Do you presently have visiting nurse or other home services: No Alcohol intake: never Patient Tobacco Use Status: Never used Tobacco Tobacco use type: Cigarette Smoked in Last 30 Days: No Second Hand Smoke Exposure: No Use of substances other than those prescribed or required for medical reasons: No Substance Use Type: Former Substance User, Prescription Drugs and Caffiene Advance Directives: No Advance Directives Information Provided: No service: No Current occupational status: disabled Sexual orientation: Decline to Answer Physical Exam 2 Vital Signs: Vital Signs: Last Vital Signs Temp 97.6 F 03/28/24 14:57 Pulse 88 03/28/24 14:57 Resp 18 03/28/24 14:57 BP 114/79 03/28/24 14:57 Pulse Ox 97 03/28/24 14:57 O2 Del Method Room Air 03/28/24 14:57 BMI result Body Mass Index 37.4 Const: General: cooperative, healthy appearing and no acute distress O rientation/consciousness: patient oriented x3 Limitations: no limitations HEENT: Head: Yes normal to inspection and Yes atraumatic Ears: hearing grossly normal bilaterally General nose exam: Normal external nose present Face and sinus: Yes normal facial exam Mouth: Normal oral and palatal mucosa present and no drooling Throat: Yes posterior oropharynx normal Eyes: General: appearance normal, both eyes and all related structures P upils: Equal, round and reactive pupils present EOM: EOMs intact bilaterally Neck: Neck: Yes normal visual inspection and Yes no meningeal signs Resp: Effort & Inspection: normal respiratory effort and no respiratory distress Auscultation: clear to auscultation bilaterally, no crackles and no wheezes Cardio: Rate: regular rate Heart sounds: S1 normal heart sound present and S2 normal heart sound present GI: Inspection: Yes normal to inspection Palpation (GI): Soft to palpation, nontender, no guarding and not rigid : General: Yes no CVA tenderness Back/Spine/Pelvis: Back: no CVA tenderness Skin: Rashes: no rashes Wounds: no wounds Neuro: General: patient oriented x3, tone normal, moves all extremities, no meningeal signs, no focal motor deficits and CN's II-XI intact bilaterally C ranial nerves: Yes CN's II-XII intact bilaterally, Yes Equal, round and reactive pupils present and Yes Bilaterally intact EOM present Cognition (Neuro): n ormal cognition Speech: No Abnormal speech present Gait exam (Neuro): N ormal gait present Motor exam (neuro): 5/5 motor strength present throughout Extrem: General: Yes normal to inspection Course Course Course Narrative: -1557--no leukocytosis. H/H stable. -initial troponin negative > will obtain repeat -1630--ED care transferred to [facility] pending remaining labs/repeat troponin, viral studies, CXR, and dispo per results Medications Administered Discontinued Medications Generic Name Dose Route Start Last Admin Trade Name Sancho PRN Reason Stop Dose Admin Acetaminophen 650 mg 03/28/24 15:04 03/28/24 15:16 Acetaminophen 325 Mg Tablet PO 03/28/24 15:05 650 mg ONCE ONE Administration Ondansetron HCl 4 mg 03/28/24 15:03 03/28/24 15:16 Ondansetron Hcl 4 Mg/2 Ml Vial IVPUSH 03/28/24 15:04 4 mg ONCE ONE Administration Medical Decision Making Medical Decision Making MDM Narrative: 64-year-old male with a past medical history developmental delay, somatoform disorder, COPD / asthma, A.fib on Xarelto, V. tach s/p AICD, Tetralogy of Fallot s/p repair, anxiety, depression, COPD, diabetes, hypothyroid, HTN, HLD, GERD, seizure disorder, PONCE, ETOH abuse presenting to the ED via EMS from from [facility] complaining of chest pain and lightheadedness episode [employer]. Patient also reports left-sided headache, nausea, and blurry vision since syncope w/fall & head strike last week which he was evaluated at [facility]. Concern for ACS vs viral illness. Rule out metabolic abnormalities. Low suspicion for PE/DVT, dissection, ICH, CVA/TIA or meningitis/encephalitis at this time. Per [facility] records patient was evaluated at [facility] on 03/19/2024 s/p syncopal episode with head strike, labs and imaging at that time were reassuring. His device was interrogated by EP and they did not know any episodes of V-tach or shocks. Spoke with [facility] today and office reports they sent patient to ED for further eval due to chest pain and lightheadedness. Denies syncope in office. State patient presents to their facility similarly with most of his visits. Vitals were stable - Plan: EKG, labs, CXR, viral studies. No need for repeat head CT or other additional imaging at this time with headache/visual changes unchanged Please refer to course for remaining clinical decision making, interpretation of labs/imaging results, and discussions with consultants and/or family members. Differential Diagnosis Differential Diagnoses: The differential diagnosis associated with the presentation includes As above Admission/Observation Consideration of admission/observation: Escalation of care including admission/observation considered Consult Healthcare Provider Management of the patient was discussed with: Primary Care Provider Lab Data MDM Lab Attestation statement: I reviewed the patient's lab results. 03/28/24 15:31 03/28/24 15:31 Labs: Lab Results 03/28/24 Range/Units 15:31 WBC 6.8 (4.8-10.8) X10*3/uL RBC 4.54 L (4.60-5.80) X10*6/uL Hgb 13.0 L (14.0-18.0) g/dl Hct 38.5 L (42.0-52.0) % MCV 84.8 (80.0-98.0) fL MCH 28.6 (27.0-33.0) pg MCHC 33.8 (31.0-36.0) g/dl RDW 12.9 (11.0-16.0) % Plt Count 107 L (160-400) X10*3/uL MPV 11.2 (9.4-12.4) fL Immature Gran % (Auto) 1.6 H (0.0-0.4) % Neut % (Auto) 58.1 (45-73) % Lymph % (Auto) 23.1 (20-40) % [place] % (Auto) 9.0 (2-11) % Eos % (Auto) 7.2 H (0-4) % Baso % (Auto) 1.0 (0-2) % Lymph # (Auto) 1.6 (1.2-4.9) X10*3/uL [place] # (Auto) 0.6 (0.1-1.2) X10*3/uL Eos # (Auto) 0.5 H (0.0-0.4) X10*3/uL Baso # (Auto) 0.1 (0.0-0.2) X10*3/uL Abs Immat Gran (auto) 0.11 H (0.00-0.03) X10*3/uL Absolute Neuts (auto) 4.0 (2.0-8.3) x10*3/uL Absolute Nucleated RBC 0.000 (0.0-0.012) X10*3/uL Nucleated RBC % (auto) 0.0 (0.0-0.2) /100WBC PT 12.3 (10.9-12.4) SEC INR 1.1 (0.9-1.1) Sodium 139 (135-145) mmol/L Potassium 4.1 (3.3-5.1) mmol/L Chloride 104 (96-108) mmol/L Carbon Dioxide 27 (22-29) mmol/L Anion Gap 12 (12-20) BUN 16 (9-16) mg/dL Creatinine 1.10 (0.5-1.4) mg/dL Estim Creat Clear Calc 86.9 Estimated GFR > 60 Random Glucose 131 H (60-115) mg/dL Calcium 8.5 D (8.4-10.2) mg/dL Magnesium 2.0 (1.6-2.6) mg/dL Total Bilirubin 0.6 (0.0-1.0) mg/dL Direct Bilirubin 0.1 (0.0-0.5) mg/dL AST 30 (5-37) U/L ALT 35 (0-40) U/L Troponin I High Sens < 2.7 (<3.5-35.0) ng/L Total Protein 6.7 (6.5-8.0) g/dL Albumin 3.9 (3.5-5.0) g/dL Independent Interpretation I performed an independent interpretation of an: EKG (My interpretation EKG sinus rhythm with first-degree AV block. Left bundle-branch block has replaced right bundle-branch block when compared to prior. No STEMI. QTC 505) and Plain X-Ray Radiology Impression Discussion of test interpretation with radiology: I have reviewed the radiologist's reading. Independent Historian Clinical information obtained from an independent historian. History obtained from or confirmed by: EMS External Record Review External record reviewed: Inpatient record, Office record, Outpatient record, Prior outpatient labs, Prior outpatient radiology, Primary care record and Outside ED record Tests considered The following testing was considered but not selected: As above Prescription Management I considered prescription management with: Other Chronic Conditions Patient?s care impacted by: Other (AFib, V-tach with AICD, COPD, asthma, anxiety, seizures) Social Determinants Patient?s care significantly limited by Social Determinants of Health including: Low income, Problems related to primary support group, Unemployment and Other Social Determinant of Health Discharge Plan Discharge Clinical Impression: Chest pain, Headache Patient Disposition: Still a Patient Prescriptions: No Action isosorbide mononitrate 30 mg Tablet Extended Release 24 Hr 30 mg PO DAILY Qty: 0 0RF Protocol: Hold for SBP< HOLD for SBP < : 90 sotalol 80 mg tablet 80 mg PO BID hydroxyzine pamoate 50 mg capsule 50 mg PO BID tamsulosin 0.4 mg capsule 0.4 mg PO BEDTIME nitroglycerin 0.4 mg tablet, sublingual 0.4 mg sublingual Q5M PRN (Reason: Chest Pain) albuterol sulfate 90 mcg/actuation HFA aerosol inhaler 2 puff inhalation Q4H PRN (Reason: Shortness Of Breath) ezetimibe 10 mg Tablet 10 mg PO DAILY 7 Days Qty: 7 0RF risperidone 1 mg tablet 1.5 mg PO BEDTIME Xarelto 20 mg tablet 20 mg PO DAILY@1800 levothyroxine 75 mcg tablet 75 mcg PO DAILY@0600 acetaminophen 325 mg tablet 650 mg PO Q4H PRN (Reason: Fever Or Pain) metformin 500 mg tablet 500 mg PO DAILY trazodone 50 mg tablet 25 mg PO BEDTIME ondansetron HCl 4 mg Tablet 4 mg PO Q4H PRN (Reason: nausea and vomitting) sumatriptan succinate 50 mg tablet 50 mg PO BID PRN (Reason: migraines) Rx Instructions: wait 2 hours between doses calcium carbonate [Tums] 300 mg (750 mg) Tablet,Chewable 300 mg PO Q4H PRN (Reason: Dyspepsia) aspirin 81 mg tablet,delayed release (DR/EC) 81 mg PO DAILY tramadol 50 mg tablet 50 mg PO Q6H PRN (Reason: migraines) quetiapine 100 mg tablet 100 mg PO BEDTIME magnesium hydroxide 400 mg/5 mL Suspension 30 ml PO DAILY PRN (Reason: Constipation) gabapentin 300 mg capsule 300 mg PO BID bisacodyl 5 mg Tablet,Delayed Release (Dr/Ec) 10 mg PO BEDTIME PRN (Reason: Constipation) alum-mag hydroxide-simeth [Mylanta Maximum Strength] 400-400-40 mg/5 mL Suspension 10 ml PO Q4H PRN (Reason: Constipation) escitalopram oxalate 20 mg Tablet 20 mg PO DAILY cyclobenzaprine 5 mg tablet 5 mg PO TID PRN (Reason: muscle spasms) melatonin 10 mg Tablet 10 mg PO BEDTIME PRN (Reason: Insomnia) prednisone 20 mg tablet 20 mg PO DAILY Qty: 5 0RF oxycodone 5 mg tablet 5 mg PO BID PRN (Reason: pain) Qty: 4 0RF Rx Instructions: Partial Fill upon patient request. cyclobenzaprine 10 mg tablet 10 mg PO TID PRN (Reason: muscle spasm) Qty: 10 0RF meclizine 25 mg tablet 25 mg PO DAILY PRN (Reason: dizziness) Qty: 14 0RF lidocaine 5 % adhesive patch,medicated 1 patch topical DAILY PRN (Reason: pain) Qty: 15 0RF Rx Instructions: leave on most painful area for up to 12 hrs acetaminophen [Tylenol] 325 mg capsule 325 mg PO Q4H PRN (Reason: pain) Qty: 30 0RF trazodone 150 mg tablet 150 mg PO BEDTIME hydroxyzine HCl 50 mg tablet 50 mg PO BEDTIME (DME) miscellaneous medical supply Misc See Rx Instructions .Route Qty: 1 0RF Rx Instructions: Quad cane use As directed oxycodone-acetaminophen 5-325 mg tablet 1 tab PO Q8H PRN (Reason: pain (scale score 7-10)) 7 Days Qty: 20 0RF Rx Instructions: Partial Fill upon patient request. naloxone [Narcan] 4 mg/actuation spray,non-aerosol 4 mg intranasal Q2M PRN (Reason: opioid overdose) Qty: 2 0RF Rx Instructions: spray 1 dose into ONE nostril; alternate nostrils w each dose until help arrives Print Language: Slovak
--- NOTE | 2024-03-28 15:03 | ECG_ITS ---
Test Reason : CHEST PAIN Blood Pressure : / mmHG Vent. Rate : 080 BPM Atrial Rate : 080 BPM P-R Int : 230 ms QRS Dur : 168 ms QT Int : 438 ms P-R-T Axes : 072 113 057 degrees QTc Int : 505 ms Sinus rhythm with 1st degree A-V block Right bundle branch block Left posterior fascicular block Abnormal ECG When compared with ECG of 25-FEB-2024 17:56, No significant changes seen Referred By: Yuli Loya Electronically Signed By:PATO ROMAN MD
[2024-03-28] MEDS: ondansetron HCL 4 MG/2 ML VIAL IVPUSH (15:16)
[2024-03-28] MEDS: Acetaminophen 325 MG TABLET 650 MG PO (15:16)
[2024-03-28 15:36] LABS: MANUAL DIFF FLAG NO
[2024-03-28 15:43] LABS: INTERNATIONAL NORM RATIO 1.1 (0.9-1.1); Prothrombin Time 12.3 SEC (10.9-12.4)
[2024-03-28 15:47] LABS: Basophils Absolute Auto 0.1 X10*3/uL (0.0-0.2); Eosinophils Absolute Auto 0.5 X10*3/uL (0.0-0.4); Eosinophils Percent Auto 7.2 % (0-4); Hematocrit 38.5 % (42.0-52.0); Imm Gran Abs Auto 0.11 X10*3/uL (0.00-0.03); Imm Gran Pct Auto 1.6 % (0.0-0.4); Lymphocytes Absolute Auto 1.6 X10*3/uL (1.2-4.9); Lymphocytes Percent Auto 23.1 % (20-40); Mean Corpuscular HGB Conc 33.8 g/dl (31.0-36.0); Mean Corpuscular Hemoglobin 28.6 pg (27.0-33.0); Mean Corpuscular Volume 84.8 fL (80.0-98.0); Mean Platelet Volume 11.2 fL (9.4-12.4); Monocytes Absolute Auto 0.6 X10*3/uL (0.1-1.2); Neutrophils Percent Auto 58.1 % (45-73); Platelet Count 107 X10*3/uL (160-400); Red Blood Count 4.54 X10*6/uL (4.60-5.80); Red Cell Distribution Width 12.9 % (11.0-16.0); White Blood Count 6.8 X10*3/uL (4.8-10.8)
[2024-03-28 15:59] LABS: Alanine Aminotransferase 35 U/L (0-40); Albumin Level 3.9 g/dL (3.5-5.0); Anion Gap 12 (12-20); Aspartate Amino Transferase 30 U/L (5-37); Bilirubin Direct 0.1 mg/dL (0.0-0.5); Bilirubin Total 0.6 mg/dL (0.0-1.0); Blood Urea Nitrogen 16 mg/dL (9-16); Calcium 8.5 mg/dL (8.4-10.2); Carbon Dioxide 27 mmol/L (22-29); Chloride 104 mmol/L (96-108); Creatinine Clr Calc Pharmacy 86.9; Estimated Glomerular Filt Rate > 60; Glucose Random 131 mg/dL (60-115); Potassium 4.1 mmol/L (3.3-5.1); Sodium 139 mmol/L (135-145); Total Protein 6.7 g/dL (6.5-8.0); Troponin-I High Sensitivity < 2.7 ng/L (<3.5-35.0)
[2024-03-28] MEDS: Morphine Sulfate 2 MG/ML CARTRIDGE 1 MG IVPUSH (16:10)
[2024-03-28 16:17] LABS: Alkaline Phosphatase 73 U/L (39-117)
[2024-03-28 16:26] LABS: Influenza A PCR NEGATIVE (Negative); Influenza B PCR NEGATIVE (Negative); Resp Syncy Virus RNA Qual PCR NEGATIVE (Negative); SARS COV2 PCR INHOUSE NEGATIVE (Negative)
[2024-03-28] MEDS: Ketorolac Tromethamine 15 MG/ML VIAL IVPUSH (17:06)
[2024-03-28 17:09] LABS: Appearance Urine Clear; Color Urine Yellow; Glucose Urine UA Negative (Negative); Leukocyte Esterase Urine Negative (Negative); Nitrite Urine Negative (Negative); PH 5.5 (5.0-9.0); Urine Blood Negative (Negative); Urine Ketones Negative (Negative); Urine Protein Negative (Neg-Trace)
[2024-03-28 18:50] LABS: B Type Natriuretic Peptide 72 pg/mL (<100)
== END 2024-03-28 19:59 | disposition home or self-care (01) ==
PROVIDERS: Physician Assistant; Physician Assistant Medical; Emergency Provider Emergency Medicine
DX: R07.9 Chest pain, unspecified (principal); R51.9 Headache, unspecified; Z03.818 Encounter for observation for suspected exposure to other biological agents ruled out; E11.9 Type 2 diabetes mellitus without complications; I10 Essential (primary) hypertension; E78.5 Hyperlipidemia, unspecified; E03.9 Hypothyroidism, unspecified; I48.91 Unspecified atrial fibrillation; J45.909 Unspecified asthma, uncomplicated; Z95.810 Presence of automatic (implantable) cardiac defibrillator; Z95.0 Presence of cardiac pacemaker; Z79.01 Long term (current) use of anticoagulants; Z79.84 Long term (current) use of oral hypoglycemic drugs; Z79.82 Long term (current) use of aspirin; Z79.899 Other long term (current) drug therapy
CPT/HCPCS: 0241U; 36415; 71045; 80048; 80076; 81003; 83735; 83880; 84484; 85025; 85610; 93005; 96374; 96375; 99284; 99285; J1885; J2270; J2405

== ENCOUNTER → 2024-03-28 15:03 | Outpatient (BNV) | payer OTHER, SELFPAY | PROVIDERS: Emergency Provider Emergency Medicine; Visit Provider Radiology Diagnostic Radiology | DX: R07.9 Chest pain, unspecified (principal); Z95.810 Presence of automatic (implantable) cardiac defibrillator | CPT/HCPCS: 71045 ==

== ENCOUNTER → 2024-03-28 15:03 | Outpatient (BNV) | payer OTHER, SELFPAY | PROVIDERS: Emergency Provider Emergency Medicine; Visit Provider Internal Medicine Cardiovascular Disease | DX: I44.0 Atrioventricular block, first degree (principal) | CPT/HCPCS: 93010 ==

== ENCOUNTER 2024-04-26 13:23 | Emergency (ER) | payer OTHER, SELFPAY ==
--- NOTE | ~2024-04-26 | CT_ITS ---
EXAMINATION: CT CERVICAL SPINE WITHOUT CONTRAST CLINICAL INFORMATION: Fall downstairs, positive LOC. COMPARISON: Numerous prior exams, most recently 12/27/2023. TECHNIQUE: Spiral CT imaging of the cervical spine performed in axial plane without IV contrast. Sagittal, coronal, and thin section axial reformatted images were constructed from the axial data set. This CT examination was performed using dose optimization techniques as appropriate, variously including the following: *Automated exposure control *Adjustment of mA and/or kV according to patient size (this includes techniques or standardized protocols for targeted exams where dose is matched to indication/reason for exam; i.e. extremities or head) *Use of iterative reconstruction technique FINDINGS: There is a mild levoconvex scoliosis. There is a normal lordosis. There is no evidence of acute fracture, acute compression deformity, or traumatic subluxation. Minimal unchanged degenerative retrolisthesis C3 on C4, and trace anterolisthesis C5 on C6. Craniocervical junction is intact. C1-2 articulation is intact and aligned. There are large ventrally projecting osteophytes arising from the neural arch of C1, and throughout the cervical spine, the largest at C4 and C5. Findings are in keeping with DISH. There is no facet fracture or subluxation. There are multilevel degenerative facet changes. Disc vacuum phenomenon at C3-4. Moderate diffuse disc degeneration throughout the cervical spine. There is no prevertebral soft tissue abnormality. Osteophytes at C4 and C5 mildly indents upon the hypopharynx, unchanged. Thyroid demonstrates no dominant nodule. Refer to the chest CT report for lung and superior mediastinal findings. CT/CT cervical spine wo IV con IMPRESSION: 1. No CT evidence of acute cervical spine fracture or injury. 2. Diffuse degenerative spondylosis with findings in keeping with DISH. There has been no interval change in the appearance from the prior exams. Electronically signed by: Lewis Ford MD 04/26/2024 03:13 PM [facility]
--- NOTE | ~2024-04-26 | CT_ITS ---
EXAMINATION: CT HEAD WITHOUT CONTRAST CLINICAL INFORMATION: Fall downstairs, positive LOC . COMPARISON: Numerous priors, most recently 12/27/2023. TECHNIQUE: Contiguous axial imaging was performed from the skull base to vertex without intravenous administration of contrast. This CT examination was performed using dose optimization techniques as appropriate, variously including the following: *Automated exposure control *Adjustment of mA and/or kV according to patient size (this includes techniques or standardized protocols for targeted exams where dose is matched to indication/reason for exam; i.e. extremities or head) *Use of iterative reconstruction technique FINDINGS: There is no evidence of intracranial hemorrhage or extra-axial fluid collection. There is no mass effect, or edema. No CT evidence of acute territorial infarct. Ventricles, sulci, and cisterns are normal in size and configuration for patient age. No hydrocephalus. No midline shift. There is a stable 8 mm hyperattenuating focus abutting the frontal horn of the left lateral ventricle, without definite surrounding gliosis, most likely a focus of calcification. This unchanged from prior exams. This may represent a cavernous malformation or nonspecific calcification. Doubtful clinical significance. Mild to moderate patchy and confluent white matter hypodensities in the supratentorial region, in keeping with small vessel ischemia. 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 Normal sella. Mild atheromatous calcification of the bilateral carotid siphons. Globes and orbital contents image normally within the confines of motion artifact. No acute extracranial soft tissue abnormalities. Fatty change of the parotid glands. No significant paranasal sinus disease. Mild opacification of the right mastoid tip. Under pneumatization of the left mastoid air cells. Tympanic cavities are normally aerated. No suspicious bony abnormalities. No fractures seen. CT/CT head/brain wo IV con IMPRESSION: No acute intracranial abnormalities. Stable chronic findings. Electronically signed by: Lewis Ford MD 04/26/2024 03:05 PM [facility]
--- NOTE | ~2024-04-26 | CT_ITS ---
EXAMINATION: CT CHEST WITH IV CONTRAST, CT ABDOMEN PELVIS WITH IV CONTRAST INDICATION: fall down COMPARISON: Comparison is made with the prior chest CT dated 09/08/[address] of the abdomen and pelvis dated 12/27/2023. TECHNIQUE: CT scan of the chest, abdomen and pelvis was performed following administration of 85 mL Omnipaque 350 using standard departmental protocol. Coronal and sagittal reformatted images were generated and reviewed. Oral contrast material was not administered at the request of the referring physician. This CT exam was performed with one or more of the following dose reduction techniques: automated exposure control, adjustment of the mA and/or kV according to patient size, use of iterative reconstruction technique. DLP: 1382 mGy-cm CHEST: THYROID: The thyroid is unremarkable. LUNGS: The lungs are clear. MEDIASTINUM: There is no mediastinal lymphadenopathy. AMY: There is no hilar lymphadenopathy. CARDIOVASCULATURE: The heart is normal in size. There is no pericardial effusion. There is dilatation of the ascending thoracic aorta measuring 3.9 cm in diameter. A pacemaker is seen in place. DEGREE OF CORONARY CALCIFICATION: none PLEURA: There is no pleural effusion. No pneumothorax. MAIN AIRWAYS: The mainstem bronchi and proximal branches are patent. AXILLA: There is no axillary lymphadenopathy. SOFT TISSUES: Unremarkable. BONES: Again seen are findings of DISH involving the spine. No fracture is seen. There are old healed bilateral rib fractures. ABDOMEN: LIVER: The liver is normal in size and contour. No liver mass is identified. The hepatic and portal veins are patent. GALLBLADDER / BILE DUCTS: The gallbladder is unremarkable. There is no intra or extrahepatic biliary ductal dilatation. SPLEEN: The spleen is normal in size. No focal splenic lesion is identified. PANCREAS: The pancreas is unremarkable in appearance. ADRENAL GLANDS: Within normal limits. KIDNEYS/RETROPERITONEUM: No renal calculi are identified. There is no hydronephrosis. No renal masses are identified. LYMPH NODES: No abdominal or pelvic lymphadenopathy. VASCULATURE: The abdominal aorta is normal in caliber. MESENTERY/PERITONEUM: No free fluid. No masses. There is no free intraperitoneal gas. STOMACH: The stomach is collapsed, limiting evaluation. SMALL BOWEL: The small bowel is normal in caliber. COLON: The colon is unremarkable. APPENDIX: The appendix is surgically absent. URINARY BLADDER/PELVIC ORGANS: The urinary bladder is unremarkable. The prostate is enlarged. BONES / SOFT TISSUES: There is degenerative disc disease of the spine. There is grade I-II spondylolisthesis of L5 on S1. No fracture is identified. CT/CT abdomen pelvis w IV con IMPRESSION: No evidence of traumatic injury to the chest, abdomen, or pelvis. Incidental findings as discussed above. Electronically signed by: Rocael Golden MD 04/26/2024 03:09 PM [facility]
--- NOTE | 2024-04-26 13:34 | ECG_ITS ---
Test Reason : FALL Blood Pressure : */* mmHG Vent. Rate : 90 BPM Atrial Rate : 90 BPM P-R Int : 206 ms QRS Dur : 170 ms QT Int : 430 ms P-R-T Axes : 65 109 42 degrees QTcB Int : 526 ms Normal sinus rhythm Right bundle branch block Left posterior fascicular block Abnormal ECG When compared with ECG of 28-Mar-2024 15:00, No significant changes seen Referred By: Eduar De Santiago Electronically Signed By: PATO ROMAN MD
[2024-04-26 13:37] VITALS: BP 125/89; PULSE 89; RESP 16; TEMP 37; O2SAT 96
[2024-04-26 13:43] VITALS: BP 118/80; PULSE 95; O2SAT 100; BMI 35.4
[2024-04-26 13:45] LABS: Glucose, Whole Blood 126 mg/dL (60-115)
[2024-04-26 13:46] LABS: MANUAL DIFF FLAG NO
[2024-04-26 13:47] LABS: Basophils Percent Auto 0.8 % (0-2); Eosinophils Absolute Auto 0.2 X10*3/uL (0.0-0.4); Eosinophils Percent Auto 3.6 % (0-4); Hematocrit 38.4 % (42.0-52.0); Hemoglobin 12.7 g/dl (14.0-18.0); Imm Gran Abs Auto 0.06 X10*3/uL (0.00-0.03); Imm Gran Pct Auto 1.1 % (0.0-0.4); Lymphocytes Absolute Auto 1.4 X10*3/uL (1.2-4.9); Lymphocytes Percent Auto 25.8 % (20-40); Mean Corpuscular HGB Conc 33.1 g/dl (31.0-36.0); Mean Corpuscular Hemoglobin 28.2 pg (27.0-33.0); Mean Corpuscular Volume 85.1 fL (80.0-98.0); Mean Platelet Volume 10.1 fL (9.4-12.4); Monocytes Absolute Auto 0.5 X10*3/uL (0.1-1.2); Neutrophils Absolute Auto 3.2 x10*3/uL (2.0-8.3); Neutrophils Percent Auto 59.7 % (45-73); Platelet Count 110 X10*3/uL (160-400); Red Blood Count 4.51 X10*6/uL (4.60-5.80); White Blood Count 5.3 X10*3/uL (4.8-10.8)
[2024-04-26 14:11] LABS: Alanine Aminotransferase 38 U/L (0-40); Albumin Level 3.7 g/dL (3.5-5.0); Alkaline Phosphatase 79 U/L (39-117); Anion Gap 13 (12-20); Aspartate Amino Transferase 40 U/L (5-37); Bilirubin Direct 0.2 mg/dL (0.0-0.5); Bilirubin Total 0.7 mg/dL (0.0-1.0); Blood Urea Nitrogen 13 mg/dL (9-16); Calcium 8.1 mg/dL (8.4-10.2); Carbon Dioxide 25 mmol/L (22-29); Chloride 109 mmol/L (96-108); Creatinine Clr Calc Pharmacy 78.9; Estimated Glomerular Filt Rate > 60; Glucose Random 132 mg/dL (60-115); Lipase 29 U/L (8-78); Potassium 4.1 mmol/L (3.3-5.1); Sodium 143 mmol/L (135-145); Total Protein 6.6 g/dL (6.5-8.0); Troponin-I High Sensitivity 3.5 ng/L (<3.5-35.0)
--- NOTE | 2024-04-26 14:20 | ED_ITS ---
HPI - Head Injury General Chief complaint: Trauma Stated complaint: FALL DOWN 8 STEPS, CP Time Seen by Provider: 04/26/24 13:30 History of Present Illness ED Provider: Eduar De Santiago DO HPI Narrative: 64-year-old male with past medical history of COPD not on home O2, defibrillator placement, chronic back pain with radiculopathy and lumbar degenerative disc disease, atrial fibrillation on rivaroxaban presents to the ED from outside facility due to a fall approximately 8-10 stairs. Per provider from outside facility, the patient was witnessed to fall by security. Patient states he was walking up the stairs when he experienced chest pain and dizziness, causing him to fall. He was reportedly unresponsive for a couple of minutes and promptly responded to naloxone. Unable to provide C-spine collar for immobilization at outside facility nor by EMS. Report is that he did hit his head and had a previous intracranial hematoma. He reportedly was at his baseline mental status after the oxygen was administered. Related Data Home Medications ?Medication ?Instructions ?Recorded ?Confirmed albuterol sulfate 90 mcg/actuation 2 puff inhalation Q4H PRN 08/19/22 01/01/23 aerosol inhaler Shortness Of Breath hydroxyzine pamoate 50 mg capsule 50 mg PO BID Anxiety / Nausea 08/19/22 01/01/23 nitroglycerin 0.4 mg sublingual 0.4 mg sublingual Q5M PRN Chest 08/19/22 01/01/23 tablet Pain sotalol 80 mg tablet 80 mg PO BID 08/19/22 01/01/23 tamsulosin 0.4 mg capsule 0.4 mg PO BEDTIME 08/19/22 01/01/23 levothyroxine 75 mcg tablet 75 mcg PO DAILY@0600 09/08/22 01/01/23 risperidone 1 mg tablet 1.5 mg PO BEDTIME 09/08/22 01/01/23 rivaroxaban 20 mg tablet (Xarelto) 20 mg PO DAILY@1800 09/08/22 01/01/23 acetaminophen 325 mg tablet 650 mg PO Q4H PRN Fever Or Pain 01/01/23 01/01/23 aluminum-mag hydroxide-simethicone 10 ml PO Q4H PRN Constipation 01/01/23 01/01/23 400 mg-400 mg-40 mg/5 mL oral susp (Mylanta Maximum Strength) aspirin 81 mg tablet,delayed 81 mg PO DAILY 01/01/23 01/01/23 release bisacodyl 5 mg tablet,delayed 10 mg PO BEDTIME PRN Constipation 01/01/23 01/01/23 release calcium carbonate (Tums) 300 mg PO Q4H PRN Dyspepsia 01/01/23 01/01/23 cyclobenzaprine 5 mg tablet 5 mg PO TID PRN muscle spasms 01/01/23 01/01/23 escitalopram oxalate 20 mg tablet 20 mg PO DAILY 01/01/23 01/01/23 gabapentin 300 mg capsule 300 mg PO BID 01/01/23 01/01/23 magnesium hydroxide 400 mg/5 mL 30 ml PO DAILY PRN Constipation 01/01/23 01/01/23 oral suspension melatonin 10 mg tablet 10 mg PO BEDTIME PRN Insomnia 01/01/23 01/01/23 metformin 500 mg tablet 500 mg PO DAILY 01/01/23 01/01/23 ondansetron HCl 4 mg tablet 4 mg PO Q4H PRN nausea and 01/01/23 01/01/23 vomitting quetiapine 100 mg tablet 100 mg PO BEDTIME 01/01/23 01/01/23 sumatriptan succinate 50 mg tablet 50 mg PO BID PRN migraines 01/01/23 01/01/23 tramadol 50 mg tablet 50 mg PO Q6H PRN migraines 01/01/23 01/01/23 trazodone 50 mg tablet 25 mg PO BEDTIME 01/01/23 01/01/23 hydroxyzine HCl 50 mg tablet 50 mg PO BEDTIME 12/26/23 trazodone 150 mg tablet 150 mg PO BEDTIME 12/26/23 Previous Rx's ?Medication ?Instructions ?Recorded isosorbide mononitrate 30 mg 30 mg PO DAILY #0 tabs 09/22/21 tablet,extended release 24 hr ezetimibe 10 mg tablet 10 mg PO DAILY 7 days #7 tabs 08/24/22 oxycodone 5 mg tablet 5 mg PO BID PRN pain #4 tabs 01/01/23 prednisone 20 mg tablet 20 mg PO DAILY #5 tabs 01/01/23 cyclobenzaprine 10 mg tablet 10 mg PO TID PRN muscle spasm #10 08/31/23 tabs acetaminophen 325 mg capsule 325 mg PO Q4H PRN pain #30 caps 09/30/23 (Tylenol) lidocaine 5 % topical patch 1 patch topical DAILY PRN pain #15 09/30/23 ea meclizine 25 mg tablet 25 mg PO DAILY PRN dizziness #14 09/30/23 tabs miscellaneous medical supply #1 ea 12/26/23 naloxone 4 mg/actuation nasal 4 mg intranasal Q2M PRN opioid 12/26/23 spray (Narcan) overdose #2 ea oxycodone-acetaminophen 5 mg-325 1 tab PO Q8H PRN pain (scale score 12/26/23 mg tablet 7-10) 7 days #20 tabs Allergies Allergy/AdvReac Type Severity Reaction Status Date / Time aripiprazole [From Abilify] Allergy Severe Rash Verified 04/26/24 13:48 peas Allergy Severe HIVES Verified 02/18/24 13:49 atorvastatin [From Lipitor] Allergy Intermediate Hives Verified 02/18/24 13:49 bee pollen [bee stings] AdvReac Severe Anaphylaxis Verified 02/18/24 13:49 Review of Systems 2 Review of Systems: Yes all other systems are reviewed and are negative PMFSH Past Medical History Medical History Somatoform disorder Depression with suicidal ideation Sleep apnea Seizure RBBB Cardiac defibrillator in place Artificial cardiac pacemaker Hyperthyroidism Hyperlipidemia History of ETOH abuse Hypertension GERD (gastroesophageal reflux disease) Diabetes Developmental delay, mild Depression COPD (chronic obstructive pulmonary disease) Asthma Anxiety Surgical History History of cardiac cath Social History Social History Household Members: Other Household Members Other:: 2 roommates Housing: Apartment Housing Other:: Sober House Do you presently have visiting nurse or other home services: No Alcohol intake: never Patient Tobacco Use Status: Never used Tobacco Tobacco use type: Cigarette Second Hand Smoke Exposure: No Substance Use Type: Former Substance User, Prescription Drugs and Caffiene Advance Directives: Yes Advance Directives Information Provided: Yes Advance Directives on File: No service: No Current occupational status: disabled Sexual orientation: Decline to Answer Physical Exam 2 Vital Signs: Vital Signs: Last Vital Signs Temp 97.8 F 04/26/24 15:38 Pulse 89 04/26/24 15:38 Resp 18 04/26/24 15:38 BP 111/82 04/26/24 15:38 Pulse Ox 97 04/26/24 15:38 O2 Del Method Room Air 04/26/24 15:38 BMI result Body Mass Index 35.4 Constitutional: ?Alert, oriented to person, place, time and situation, speaking in full sentences HEENT: ?Normocephalic, atraumatic, Moist mucous membranes Eyes: ?PERRL, EOMI Neck: ?Supple, nontender Chest: ?No chest wall tenderness Respiratory: ?Lungs clear to auscultation, no increased work of breathing Cardio: ?Regular rate and rhythm, no murmur, 2+ radial and DP pulses symmetrically GI: ?Soft, nondistended, nontender Back: ?Normal range of motion, nontender Skin: ?No rash, no lesions Neuro: ?Alert and oriented to person, place and time, moves all 4 extremities, no focal deficits Extremities: ?No swelling or tenderness, full range of motion Psych: ?Calm, alert and cooperative, appropriate behavior Medications Administered Discontinued Medications Generic Name Dose Route Start Last Admin Trade Name Davidq PRN Reason Stop Dose Admin Acetaminophen 975 mg 04/26/24 15:08 04/26/24 15:36 Acetaminophen 325 Mg Tablet PO 04/26/24 15:09 975 mg ONCE ONE Administration Iohexol 100 ml 04/26/24 14:52 04/26/24 14:52 Iohexol 350 Mg/Ml 100 Ml Infus..Btl IV 04/26/24 14:53 85 ml ONCE ONE Administration Meclizine HCl 25 mg 04/26/24 15:01 04/26/24 15:36 Meclizine Hcl 25 Mg Tablet PO 04/26/24 15:02 25 mg ONCE ONE Administration Morphine Sulfate 4 mg 04/26/24 13:33 04/26/24 14:28 Morphine Sulfate 4 Mg/Ml Cartridge IVPUSH 04/26/24 13:34 4 mg ONCE ONE Administration Protocol Morphine Sulfate 4 mg 04/26/24 15:07 04/26/24 15:36 Morphine Sulfate 4 Mg/Ml Cartridge IVPUSH 04/26/24 15:08 4 mg ONCE ONE Administration Protocol Medical Decision Making Medical Decision Making MDM Narrative: Patient presenting after a fall down multiple steps. Trauma CTs and labs ordered which showed no acute abnormalities. The patient does have chronic degenerative changes which may be related to his chronic pain. I discussed with the patient that he should follow up with a pain specialist if he placed on a pain plan. He discussed with me that he plans to visit group home on Monday as he feels he is slowly becoming less and less able to care for himself at home. He lives with his cousin. He has no current concerning exam findings after his fall. He had some nausea here and has been treated with meclizine in light of his prolonged QTC. Troponin x2 unremarkable. No new ischemia on electrocardiogram. I do not suspect other dangerous etiology of his chest pain and fall such as aortic dissection or pulmonary embolism. The patient is anticoagulated. Regarding the improvement after naloxone administration, there are no signs of opiate withdrawal take illicit drugs and is not currently taking opiates at home. I suspect he may have responded after the naloxone due to the stimulation itself as opposed to the medication effect. Either way, the patient has no signs of withdrawal and has been observed for several hours with no recurrent syncope or respiratory changes. Patient was able to ambulate without difficulty and is not requiring further medication. We discussed following up with his primary care provider and given his chronic back pain with chronic findings, he may benefit from a pain plan with a pain specialist. He also we will follow-up with the group home and return with any worsening symptoms. Admission/Observation Consideration of admission/observation: Escalation of care including admission/observation considered Lab Data MDM Lab Attestation statement: I reviewed the patient's lab results. labs show unremarkable chemistry with mild elevation of AST, unremarkable CBC with a mild baseline anemia. 04/26/24 13:43 04/26/24 13:43 Labs: Lab Results 04/26/24 04/26/24 04/26/24 Range/Units 13:41 13:43 16:01 WBC 5.3 (4.8-10.8) X10*3/uL RBC 4.51 L (4.60-5.80) X10*6/uL Hgb 12.7 L (14.0-18.0) g/dl Hct 38.4 L (42.0-52.0) % MCV 85.1 (80.0-98.0) fL MCH 28.2 (27.0-33.0) pg MCHC 33.1 (31.0-36.0) g/dl RDW 13.0 (11.0-16.0) % Plt Count 110 L (160-400) X10*3/uL MPV 10.1 (9.4-12.4) fL Immature Gran % (Auto) 1.1 H (0.0-0.4) % Neut % (Auto) 59.7 (45-73) % Lymph % (Auto) 25.8 (20-40) % [place] % (Auto) 9.0 (2-11) % Eos % (Auto) 3.6 (0-4) % Baso % (Auto) 0.8 (0-2) % Lymph # (Auto) 1.4 (1.2-4.9) X10*3/uL [place] # (Auto) 0.5 (0.1-1.2) X10*3/uL Eos # (Auto) 0.2 (0.0-0.4) X10*3/uL Baso # (Auto) 0.0 (0.0-0.2) X10*3/uL Abs Immat Gran (auto) 0.06 H (0.00-0.03) X10*3/uL Absolute Neuts (auto) 3.2 (2.0-8.3) x10*3/uL Absolute Nucleated RBC 0.000 (0.0-0.012) X10*3/uL Nucleated RBC % (auto) 0.0 (0.0-0.2) /100WBC Sodium 143 (135-145) mmol/L Potassium 4.1 (3.3-5.1) mmol/L Chloride 109 H (96-108) mmol/L Carbon Dioxide 25 (22-29) mmol/L Anion Gap 13 (12-20) BUN 13 (9-16) mg/dL Creatinine 1.18 (0.5-1.4) mg/dL Estim Creat Clear Calc 78.9 Estimated GFR > 60 POC Glucose 126 H (60-115) mg/dL Random Glucose 132 H (60-115) mg/dL Calcium 8.1 L (8.4-10.2) mg/dL Total Bilirubin 0.7 (0.0-1.0) mg/dL Direct Bilirubin 0.2 (0.0-0.5) mg/dL AST 40 H (5-37) U/L ALT 38 (0-40) U/L Alkaline Phosphatase 79 (39-117) U/L Troponin I High Sens 3.5 3.6 (<3.5-35.0) ng/L Total Protein 6.6 (6.5-8.0) g/dL Albumin 3.7 (3.5-5.0) g/dL Lipase 29 (8-78) U/L Independent Interpretation I performed an independent interpretation of an: EKG Interpretation: Normal sinus rhythm at 90 beats per minute, right bundle branch block, prolonged QTC, no diagnostic ST wave abnormalities, compared to prior dated 03/28/2024 there are no significant changes. Discharge Plan Discharge Clinical Impression: Fall down stairs, Chest pain, Syncope Patient Disposition: Home, Self-Care Instructions: Chest Pain (ED), Fall Prevention (ED), Syncope (ED) Additional Instructions: Your workup today showed no acute abnormalities. We treated you with morphine and meclizine for pain and nausea. You were able to stand and walk without difficulty. If anything changes or worsens, please return, otherwise pursue your follow-up with the group home as well as discussion with primary care provider to evaluate if you should be seen by a pain specialist due to your chronic pain. Prescriptions: No Action isosorbide mononitrate 30 mg Tablet Extended Release 24 Hr 30 mg PO DAILY Qty: 0 0RF Protocol: Hold for SBP< HOLD for SBP < : 90 sotalol 80 mg tablet 80 mg PO BID hydroxyzine pamoate 50 mg capsule 50 mg PO BID tamsulosin 0.4 mg capsule 0.4 mg PO BEDTIME nitroglycerin 0.4 mg tablet, sublingual 0.4 mg sublingual Q5M PRN (Reason: Chest Pain) albuterol sulfate 90 mcg/actuation HFA aerosol inhaler 2 puff inhalation Q4H PRN (Reason: Shortness Of Breath) ezetimibe 10 mg Tablet 10 mg PO DAILY 7 Days Qty: 7 0RF risperidone 1 mg tablet 1.5 mg PO BEDTIME Xarelto 20 mg tablet 20 mg PO DAILY@1800 levothyroxine 75 mcg tablet 75 mcg PO DAILY@0600 acetaminophen 325 mg tablet 650 mg PO Q4H PRN (Reason: Fever Or Pain) metformin 500 mg tablet 500 mg PO DAILY trazodone 50 mg tablet 25 mg PO BEDTIME ondansetron HCl 4 mg Tablet 4 mg PO Q4H PRN (Reason: nausea and vomitting) sumatriptan succinate 50 mg tablet 50 mg PO BID PRN (Reason: migraines) Rx Instructions: wait 2 hours between doses calcium carbonate [Tums] 300 mg (750 mg) Tablet,Chewable 300 mg PO Q4H PRN (Reason: Dyspepsia) aspirin 81 mg tablet,delayed release (DR/EC) 81 mg PO DAILY tramadol 50 mg tablet 50 mg PO Q6H PRN (Reason: migraines) quetiapine 100 mg tablet 100 mg PO BEDTIME magnesium hydroxide 400 mg/5 mL Suspension 30 ml PO DAILY PRN (Reason: Constipation) gabapentin 300 mg capsule 300 mg PO BID bisacodyl 5 mg Tablet,Delayed Release (Dr/Ec) 10 mg PO BEDTIME PRN (Reason: Constipation) alum-mag hydroxide-simeth [Mylanta Maximum Strength] 400-400-40 mg/5 mL Suspension 10 ml PO Q4H PRN (Reason: Constipation) escitalopram oxalate 20 mg Tablet 20 mg PO DAILY cyclobenzaprine 5 mg tablet 5 mg PO TID PRN (Reason: muscle spasms) melatonin 10 mg Tablet 10 mg PO BEDTIME PRN (Reason: Insomnia) prednisone 20 mg tablet 20 mg PO DAILY Qty: 5 0RF oxycodone 5 mg tablet 5 mg PO BID PRN (Reason: pain) Qty: 4 0RF Rx Instructions: Partial Fill upon patient request. cyclobenzaprine 10 mg tablet 10 mg PO TID PRN (Reason: muscle spasm) Qty: 10 0RF meclizine 25 mg tablet 25 mg PO DAILY PRN (Reason: dizziness) Qty: 14 0RF lidocaine 5 % adhesive patch,medicated 1 patch topical DAILY PRN (Reason: pain) Qty: 15 0RF Rx Instructions: leave on most painful area for up to 12 hrs acetaminophen [Tylenol] 325 mg capsule 325 mg PO Q4H PRN (Reason: pain) Qty: 30 0RF trazodone 150 mg tablet 150 mg PO BEDTIME hydroxyzine HCl 50 mg tablet 50 mg PO BEDTIME (DME) miscellaneous medical supply Misc See Rx Instructions .Route Qty: 1 0RF Rx Instructions: Quad cane use As directed oxycodone-acetaminophen 5-325 mg tablet 1 tab PO Q8H PRN (Reason: pain (scale score 7-10)) 7 Days Qty: 20 0RF Rx Instructions: Partial Fill upon patient request. naloxone [Narcan] 4 mg/actuation spray,non-aerosol 4 mg intranasal Q2M PRN (Reason: opioid overdose) Qty: 2 0RF Rx Instructions: spray 1 dose into ONE nostril; alternate nostrils w each dose until help arrives Print Language: [place]
[2024-04-26] MEDS: Morphine Sulfate 4 MG/ML CARTRIDGE IVPUSH ×2 (14:28→15:36)
[2024-04-26] MEDS: iohexoL 350 MG/ML 100 ML INFUS..BTL IV (14:52)
[2024-04-26] MEDS: Acetaminophen 325 MG TABLET 975 MG PO (15:36)
[2024-04-26] MEDS: Meclizine HCl 25 MG TABLET PO (15:36)
[2024-04-26 15:38] VITALS: BP 111/82; PULSE 89; RESP 18; TEMP 36.6; O2SAT 97
[2024-04-26 16:29] LABS: Troponin-I High Sensitivity 3.6 ng/L (<3.5-35.0)
[2024-04-26 21:14] VITALS: BP 111/82; PULSE 89; RESP 18; TEMP 36.6; O2SAT 97
== END 2024-04-26 21:15 | disposition home or self-care (01) ==
PROVIDERS: Emergency Provider Emergency Medicine
DX: S29.9XXA Unspecified injury of thorax, initial encounter (principal); R07.89 Other chest pain; R55 Syncope and collapse; R51.9 Headache, unspecified; R10.2 Pelvic and perineal pain; M54.2 Cervicalgia; W10.9XXA Fall (on) (from) unspecified stairs and steps, initial encounter; Y93.9 Activity, unspecified; Y92.9 Unspecified place or not applicable; Y99.8 Other external cause status; Z79.899 Other long term (current) drug therapy
CPT/HCPCS: 36415; 70450; 71260; 72125; 74177; 80048; 80076; 82947; 83690; 84484; 85025; 93005; 96374; 96376; 99284; 99285; J2270; Q9967

== ENCOUNTER → 2024-04-26 13:32 | Outpatient (BNV) | payer OTHER, SELFPAY | PROVIDERS: Emergency Provider Emergency Medicine; Visit Provider Radiology Diagnostic Radiology | DX: R07.9 Chest pain, unspecified (principal); R55 Syncope and collapse | CPT/HCPCS: 70450; 71260; 72125; 74177 ==

== ENCOUNTER → 2024-04-26 13:34 | Outpatient (BNV) | payer OTHER, SELFPAY | PROVIDERS: Emergency Provider Emergency Medicine; Visit Provider Internal Medicine Cardiovascular Disease | DX: I44.5 Left posterior fascicular block (principal); R94.31 Abnormal electrocardiogram [ECG] [EKG] | CPT/HCPCS: 93010 ==

== ENCOUNTER 2024-05-23 13:02 | Emergency (ER) | payer OTHER, SELFPAY ==
--- NOTE | ~2024-05-23 | XR_ITS ---
EXAMINATION: XR CHEST CLINICAL INFORMATION: chest pain COMPARISON: X-ray 03/28/2024. CT chest 04/26/2024. TECHNIQUE: 2 views of the chest were obtained. FINDINGS: 3-lead AICD/pacer device in place left chest, leads extending into the right atrium, right ventricle, and coronary sinus. There is mild cardiomegaly, unchanged. Mediastinal and hilar contours appear normal. High riding aortic arch. The lungs are clear bilaterally. There is no pneumothorax or pleural effusion. There is no focal osseous or soft tissue abnormality. Tiny sternal wires present at the carinal level. Flowing diffuse disc osteophytes raise the possibility of DISH or possibly ankylosing spondylitis. XR/XR chest 2V IMPRESSION: 1. Mild cardiomegaly with 3-lead AICD. Small sternal wires, indicating a remote sternotomy. 2. No active pulmonary disease. Electronically signed by: Lewis Ford MD 05/23/2024 02:55 PM [facility] [place]
--- NOTE | ~2024-05-23 | CT_ITS ---
CLINICAL HISTORY: syncope, hit head on wall in bathroom CT head without contrast Comparison: Head CT from 04/26/2024 and 09/30/2023. Findings: 8 mm density intra-axial in the left frontal lobe is nonspecific and concerning for blood products and cavernous malformation. Hypervascular mass is not excluded by CT. Vascular malformation such as capillary telangiectasia is also considered given stability compared to 09/30/2023. Mild to moderate white matter lesions as can be seen with small-vessel ischemic disease. No midline shift or hydrocephalus. Mild mucosal thickening of the imaged paranasal sinuses. Small left mastoid effusion of the remodeled mastoid air cells. No acute skull fracture. IMPRESSION: 1. No significant change in left frontal lesion compared to head CT from 04/26/[address] from 09/30/2023. Consider additional nonemergent characterization with MRI of the brain with and without intravenous contrast, if not already achieved. 2. No midline shift or hydrocephalus. This document has been electronically signed by: Trev Man MD on 05/23/2024 20:01:55
--- NOTE | 2024-05-23 13:45 | ECG_ITS ---
Test Reason : CHEST PAIN Blood Pressure : */* mmHG Vent. Rate : 97 BPM Atrial Rate : 97 BPM P-R Int : 196 ms QRS Dur : 164 ms QT Int : 384 ms P-R-T Axes : 61 113 41 degrees QTcB Int : 487 ms Normal sinus rhythm Right bundle branch block Abnormal ECG When compared with ECG of 26-Apr-2024 14:18, No significant change was found Referred By: Generic ED Physician Electronically Signed By: PEPE CABALLERO
[2024-05-23 13:47] VITALS: BP 162/86; PULSE 108; O2SAT 100
[2024-05-23 14:14] VITALS: BP 144/87; PULSE 99; RESP 18; TEMP 36.7; O2SAT 99; BMI 35.4
--- NOTE | 2024-05-23 14:15 | ED.GENADULT ---
HPI - General Adult General Chief complaint: Syncope Stated complaint: CP RADIATING TO L ARM Time Seen by Provider: 05/23/24 22:41 Source: patient, RN notes reviewed and old records reviewed Mode of arrival: EMS Limitations: no limitations History of Present Illness ED Provider: Marcy HPI narrative: 64-year-old male past medical history significant for coronary artery disease, COPD, AICD implantation, depression, anxiety presenting for evaluation of chest pain. Patient reports that he had a syncopal episode this past Monday. He reports that he went to [facility] but left without being seen due to a wait time. He reports that he had a syncopal episode today that was not witnessed. He has associated headache. He reports continued left-sided chest pain that radiates to his left arm. He reports his pain is a 7/10. He got aspirin, nitro and Zofran by EMS prior to arrival While in the waiting room, the patient reported that he had another syncopal episode. Per staff that witnessed this ?it appeared as if he just lowered himself to the ground, no loss of consciousness. Related Data Home Medications ?Medication ?Instructions ?Recorded ?Confirmed albuterol sulfate 90 mcg/actuation 2 puff inhalation Q4H PRN 08/19/22 01/01/23 aerosol inhaler Shortness Of Breath hydroxyzine pamoate 50 mg capsule 50 mg PO BID Anxiety / Nausea 08/19/22 01/01/23 nitroglycerin 0.4 mg sublingual 0.4 mg sublingual Q5M PRN Chest 08/19/22 01/01/23 tablet Pain sotalol 80 mg tablet 80 mg PO BID 08/19/22 01/01/23 tamsulosin 0.4 mg capsule 0.4 mg PO BEDTIME 08/19/22 01/01/23 levothyroxine 75 mcg tablet 75 mcg PO DAILY@0600 09/08/22 01/01/23 risperidone 1 mg tablet 1.5 mg PO BEDTIME 09/08/22 01/01/23 rivaroxaban 20 mg tablet (Xarelto) 20 mg PO DAILY@1800 09/08/22 01/01/23 acetaminophen 325 mg tablet 650 mg PO Q4H PRN Fever Or Pain 01/01/23 01/01/23 aluminum-mag hydroxide-simethicone 10 ml PO Q4H PRN Constipation 01/01/23 01/01/23 400 mg-400 mg-40 mg/5 mL oral susp (Mylanta Maximum Strength) aspirin 81 mg tablet,delayed 81 mg PO DAILY 01/01/23 01/01/23 release bisacodyl 5 mg tablet,delayed 10 mg PO BEDTIME PRN Constipation 01/01/23 01/01/23 release calcium carbonate (Tums) 300 mg PO Q4H PRN Dyspepsia 01/01/23 01/01/23 cyclobenzaprine 5 mg tablet 5 mg PO TID PRN muscle spasms 01/01/23 01/01/23 escitalopram oxalate 20 mg tablet 20 mg PO DAILY 01/01/23 01/01/23 gabapentin 300 mg capsule 300 mg PO BID 01/01/23 01/01/23 magnesium hydroxide 400 mg/5 mL 30 ml PO DAILY PRN Constipation 01/01/23 01/01/23 oral suspension melatonin 10 mg tablet 10 mg PO BEDTIME PRN Insomnia 01/01/23 01/01/23 metformin 500 mg tablet 500 mg PO DAILY 01/01/23 01/01/23 ondansetron HCl 4 mg tablet 4 mg PO Q4H PRN nausea and 01/01/23 01/01/23 vomitting quetiapine 100 mg tablet 100 mg PO BEDTIME 01/01/23 01/01/23 sumatriptan succinate 50 mg tablet 50 mg PO BID PRN migraines 01/01/23 01/01/23 tramadol 50 mg tablet 50 mg PO Q6H PRN migraines 01/01/23 01/01/23 trazodone 50 mg tablet 25 mg PO BEDTIME 01/01/23 01/01/23 hydroxyzine HCl 50 mg tablet 50 mg PO BEDTIME 12/26/23 trazodone 150 mg tablet 150 mg PO BEDTIME 12/26/23 Previous Rx's ?Medication ?Instructions ?Recorded isosorbide mononitrate 30 mg 30 mg PO DAILY #0 tabs 09/22/21 tablet,extended release 24 hr ezetimibe 10 mg tablet 10 mg PO DAILY 7 days #7 tabs 08/24/22 oxycodone 5 mg tablet 5 mg PO BID PRN pain #4 tabs 01/01/23 prednisone 20 mg tablet 20 mg PO DAILY #5 tabs 01/01/23 cyclobenzaprine 10 mg tablet 10 mg PO TID PRN muscle spasm #10 08/31/23 tabs acetaminophen 325 mg capsule 325 mg PO Q4H PRN pain #30 caps 09/30/23 (Tylenol) lidocaine 5 % topical patch 1 patch topical DAILY PRN pain #15 09/30/23 ea meclizine 25 mg tablet 25 mg PO DAILY PRN dizziness #14 09/30/23 tabs miscellaneous medical supply #1 ea 12/26/23 naloxone 4 mg/actuation nasal 4 mg intranasal Q2M PRN opioid 12/26/23 spray (Narcan) overdose #2 ea oxycodone-acetaminophen 5 mg-325 1 tab PO Q8H PRN pain (scale score 12/26/23 mg tablet 7-10) 7 days #20 tabs Allergies Allergy/AdvReac Type Severity Reaction Status Date / Time aripiprazole [From Abilify] Allergy Severe Rash Verified 05/23/24 14:16 peas Allergy Severe HIVES Verified 05/23/24 14:16 atorvastatin [From Lipitor] Allergy Intermediate Hives Verified 05/23/24 14:16 bee pollen [bee stings] AdvReac Severe Anaphylaxis Verified 05/23/24 14:16 Review of Systems Constitutional: Constitutional: Denies body ache(s), Denies chills, Denies fever(s) and Reports headache(s) Eyes: Eyes: Denies blurry vision ENT: Denies vertigo, Reports dizziness and Reports headache(s) Cardiovascular: Cardiovascular: Reports chest pain, Reports chest pain at rest, Reports chest pain with activity, Denies Epigastric Pain and Denies dyspnea Respiratory: Respiratory: Denies cough and Denies dyspnea Gastrointestinal: Gastrointestinal: Denies abdominal pain, Denies nausea and Denies vomiting Musculoskeletal: Musculoskeletal: Denies back pain and Reports radiating pain into limb Integumentary/Breasts: Skin/Breast: Denies rash Neurologic: Denies vertigo, Reports dizziness and Reports headache(s) Psychiatric: Psychiatric: Reports anxiety and Denies suicidal ideation [facility] Past Medical History Medical History Somatoform disorder Depression with suicidal ideation Sleep apnea Seizure RBBB Cardiac defibrillator in place Artificial cardiac pacemaker Hyperthyroidism Hyperlipidemia History of ETOH abuse Hypertension GERD (gastroesophageal reflux disease) Diabetes Developmental delay, mild Depression COPD (chronic obstructive pulmonary disease) Asthma Anxiety Surgical History History of cardiac cath Social History Social History Household Members: Other Household Members Other:: 2 roommates Housing: Apartment Housing Other:: Sober House Do you presently have visiting nurse or other home services: No Alcohol intake: never Patient Tobacco Use Status: Never used Tobacco Tobacco use type: Cigarette Second Hand Smoke Exposure: No Substance Use Type: Former Substance User, Prescription Drugs and Caffiene Advance Directives: No Advance Directives Information Provided: No Do you have a plan to hurt others: No Plan service: No Current occupational status: disabled Sexual orientation: Decline to Answer Physical Exam ED Vital Signs: Vital Signs - 24 hr 05/23/24 14:14 05/23/24 19:12 05/23/24 22:37 Temperature 98.1 F 98.4 F Pulse Rate 99 109 H 98 Respiratory Rate 18 20 16 Blood Pressure 144/87 H 148/89 H 106/67 Pulse Oximetry 99 98 98 Oxygen Delivery Method Room Air Room Air Room Air 05/24/24 00:22 Temperature 98.2 F Pulse Rate 89 Respiratory Rate 18 Blood Pressure 124/65 Pulse Oximetry 97 Oxygen Delivery Method Room Air BMI result Body Mass Index 35.4 Const General: healthy appearing, comfortable, no acute distress, alert and awake Nutritional Appearance: well nourished Orientation/consciousness: patient oriented x3 HENMT Head: Yes normocephalic and Yes atraumatic Eyes Eyelids: Yes eyelids normal Conjunctivae: conjunctivae normal Sclerae: sclerae normal Corneas: corneas normal Pupils: Equal, round and reactive pupils present EOM: EOMs intact bilaterally Neck Neck: Yes full ROM Resp Effort & Inspection: normal respiratory effort, able to speak in complete sentences, no audible wheezes and not labored Auscultation: clear to auscultation bilaterally Cardio Rate: regular rate Rhythm: regular rhythm GI Inspection: No distended Palpation (GI): Soft to palpation, not firm, nontender, no guarding and not rigid Skin General skin exam: elasticity normal Neuro General: patient oriented x3 Cranial nerves: Yes Equal, round and reactive pupils present and Yes Bilaterally intact EOM present Cognition (Neuro): normal cognition Extrem Other: Moving all extremities well without any obvious deformities Course Course Course Narrative: This is a rapid medical exam performed by Hunter Prescott NP: Additional HPI, ROS, PE not included below will be deferred to primary provider. Patient is a 64-year-old male with history of COPD, implanted pacemaker/defibrillator, presenting to the ED with complaint of chest pain and pressure, radiating to left arm, as well as headaches and dizziness since Monday night. Also states that he was at an eye appointment today and had a syncopal episode. Plan: EKG, labs, cxr, viral panel 1911 Patient brought up to triage office by nursing staff, states that he had a syncopal episode in the waiting room bathroom and hit his head on the wall. Vital signs stable. CT head ordered. Medications Administered Discontinued Medications Generic Name Dose Route Start Last Admin Trade Name Freq PRN Reason Stop Dose Admin Morphine Sulfate 4 mg 05/23/24 22:53 05/23/24 22:58 Morphine Sulfate 4 Mg/Ml Cartridge IVPUSH 05/23/24 22:54 4 mg ONCE ONE Administration Protocol Ondansetron HCl 4 mg 05/23/24 22:53 05/23/24 22:58 Ondansetron Hcl 4 Mg/2 Ml Vial IVPUSH 05/23/24 22:54 4 mg ONCE ONE Administration Medical Decision Making Medical Decision Making MDM Narrative: 64-year-old male past medical history as documented above presents for evaluation of chest pain and reported syncopal episode x3, most recently in the waiting room. The patient had a workup that included labs, he has a chronic anemia that is still active bleeding. The patient is on Xarelto which she reports being compliant with. His INR is within normal limits, his PT is just above normal at 12.6. Chemistries with no concerning abnormalities, his troponin was detectable but within normal limits. EKG is unchanged from previous. Sinus rhythm with a wide QRS complex. He has a known right bundle-branch block. No ST segment elevations or depressions. I was able to interrogate the patient's [employer] pacemaker, he had no shocks given over last 2 years. He had a brief episode of nonsustained V-tach lasting less than 1/2 of the 2nd on May 16, 2024 and again on May 17, 2024. He had no other arrhythmias since that time. Discussed with my attending, Dr. Kenyon who feels that the patient can appropriately be discharged given his pacemaker interrogation, negative labs, chest x-ray, EKG that is unchanged. 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 As above 05/23/24 22:15 05/23/24 22:15 Labs: Lab Results 05/23/24 05/23/24 Range/Units 14:38 22:15 WBC 6.9 (4.8-10.8) X10*3/uL RBC 4.27 L (4.60-5.80) X10*6/uL Hgb 12.0 L (14.0-18.0) g/dl Hct 36.0 L (42.0-52.0) % MCV 84.3 (80.0-98.0) fL MCH 28.1 (27.0-33.0) pg MCHC 33.3 (31.0-36.0) g/dl RDW 13.8 (11.0-16.0) % Plt Count 91 L (160-400) X10*3/uL MPV 11.2 (9.4-12.4) fL Immature Gran % (Auto) 0.9 H (0.0-0.4) % Neut % (Auto) 62.6 (45-73) % Lymph % (Auto) 21.5 (20-40) % [place] % (Auto) 8.6 (2-11) % Eos % (Auto) 5.5 H (0-4) % Baso % (Auto) 0.9 (0-2) % Lymph # (Auto) 1.5 (1.2-4.9) X10*3/uL [place] # (Auto) 0.6 (0.1-1.2) X10*3/uL Eos # (Auto) 0.4 (0.0-0.4) X10*3/uL Baso # (Auto) 0.1 (0.0-0.2) X10*3/uL Abs Immat Gran (auto) 0.06 H (0.00-0.03) X10*3/uL Absolute Neuts (auto) 4.3 (2.0-8.3) x10*3/uL Absolute Nucleated RBC 0.000 (0.0-0.012) X10*3/uL Nucleated RBC % (auto) 0.0 (0.0-0.2) /100WBC PT 12.6 H (10.9-12.4) SEC INR 1.1 (0.9-1.1) Sodium 141 (135-145) mmol/L Potassium 4.0 (3.3-5.1) mmol/L Chloride 108 (96-108) mmol/L Carbon Dioxide 23 (22-29) mmol/L Anion Gap 14 (12-20) BUN 14 (9-16) mg/dL Creatinine 1.03 (0.5-1.4) mg/dL Estim Creat Clear Calc 90.4 Estimated GFR > 60 Random Glucose 188 H (60-115) mg/dL Calcium 8.2 L (8.4-10.2) mg/dL Magnesium 1.9 (1.6-2.6) mg/dL Total Bilirubin 0.4 (0.0-1.0) mg/dL AST 26 (5-37) U/L ALT 30 (0-40) U/L Alkaline Phosphatase 79 (39-117) U/L Troponin I High Sens 4.2 (<3.5-35.0) ng/L Total Protein 6.4 L (6.5-8.0) g/dL Albumin 3.7 (3.5-5.0) g/dL Influenza Type A (PCR) NEGATIVE (Negative) Influenza Type B (PCR) NEGATIVE (Negative) RSV RNA Qual (PCR) NEGATIVE (Negative) SARS-CoV-2 RNA (RT-PCR) NEGATIVE (Negative) Independent Interpretation I performed an independent interpretation of an: EKG (As above) Radiology Impression Discussion of test interpretation with radiology: I have reviewed the radiologist's reading. Radiologist Impression: Findings: 8 mm density intra-axial in the left frontal lobe is nonspecific and concerning for blood products and cavernous malformation. Hypervascular mass is not excluded by CT. Vascular malformation such as capillary telangiectasia is also considered given stability compared to 09/30/2023. Mild to moderate white matter lesions as can be seen with small-vessel ischemic disease. No midline shift or hydrocephalus. Mild mucosal thickening of the imaged paranasal sinuses. Small left mastoid effusion of the remodeled mastoid air cells. No acute skull fracture. IMPRESSION: 1. No significant change in left frontal lesion compared to head CT from 04/26/[address] from 09/30/2023. Consider additional nonemergent characterization with MRI of the brain with and without intravenous contrast, if not already achieved. 2. No midline shift or hydrocephalus. This document has been electronically signed by: Trev Man MD on 05/23/2024 20:01:55 FINDINGS: 3-lead AICD/pacer device in place left chest, leads extending into the right atrium, right ventricle, and coronary sinus. There is mild cardiomegaly, unchanged. Mediastinal and hilar contours appear normal. High riding aortic arch. The lungs are clear bilaterally. There is no pneumothorax or pleural effusion. There is no focal osseous or soft tissue abnormality. Tiny sternal wires present at the carinal level. Flowing diffuse disc osteophytes raise the possibility of DISH or possibly ankylosing spondylitis. XR/XR chest 2V IMPRESSION: 1. Mild cardiomegaly with 3-lead AICD. Small sternal wires, indicating a remote sternotomy. 2. No active pulmonary disease. Electronically signed by: Lewis Ford MD 05/23/2024 02:55 PM [facility] [place] Discharge Plan Discharge Clinical Impression: Non-cardiac chest pain Patient Disposition: Home, Self-Care Instructions: Chest Pain (ED) Additional Instructions: Your workup in the ER today was reassuring. This includes her EKG, labs, chest x-ray. I was able to interrogate your pacemaker You did not have any abnormalities today that would cause your syncopal episode I do recommend that you call your hot sealing machine operator to schedule follow-up You may take Tylenol for your pain Prescriptions: No Action isosorbide mononitrate 30 mg Tablet Extended Release 24 Hr 30 mg PO DAILY Qty: 0 0RF Protocol: Hold for SBP< HOLD for SBP < : 90 sotalol 80 mg tablet 80 mg PO BID hydroxyzine pamoate 50 mg capsule 50 mg PO BID tamsulosin 0.4 mg capsule 0.4 mg PO BEDTIME nitroglycerin 0.4 mg tablet, sublingual 0.4 mg sublingual Q5M PRN (Reason: Chest Pain) albuterol sulfate 90 mcg/actuation HFA aerosol inhaler 2 puff inhalation Q4H PRN (Reason: Shortness Of Breath) ezetimibe 10 mg Tablet 10 mg PO DAILY 7 Days Qty: 7 0RF risperidone 1 mg tablet 1.5 mg PO BEDTIME Xarelto 20 mg tablet 20 mg PO DAILY@1800 levothyroxine 75 mcg tablet 75 mcg PO DAILY@0600 acetaminophen 325 mg tablet 650 mg PO Q4H PRN (Reason: Fever Or Pain) metformin 500 mg tablet 500 mg PO DAILY trazodone 50 mg tablet 25 mg PO BEDTIME ondansetron HCl 4 mg Tablet 4 mg PO Q4H PRN (Reason: nausea and vomitting) sumatriptan succinate 50 mg tablet 50 mg PO BID PRN (Reason: migraines) Rx Instructions: wait 2 hours between doses calcium carbonate [Tums] 300 mg (750 mg) Tablet,Chewable 300 mg PO Q4H PRN (Reason: Dyspepsia) aspirin 81 mg tablet,delayed release (DR/EC) 81 mg PO DAILY tramadol 50 mg tablet 50 mg PO Q6H PRN (Reason: migraines) quetiapine 100 mg tablet 100 mg PO BEDTIME magnesium hydroxide 400 mg/5 mL Suspension 30 ml PO DAILY PRN (Reason: Constipation) gabapentin 300 mg capsule 300 mg PO BID bisacodyl 5 mg Tablet,Delayed Release (Dr/Ec) 10 mg PO BEDTIME PRN (Reason: Constipation) alum-mag hydroxide-simeth [Mylanta Maximum Strength] 400-400-40 mg/5 mL Suspension 10 ml PO Q4H PRN (Reason: Constipation) escitalopram oxalate 20 mg Tablet 20 mg PO DAILY cyclobenzaprine 5 mg tablet 5 mg PO TID PRN (Reason: muscle spasms) melatonin 10 mg Tablet 10 mg PO BEDTIME PRN (Reason: Insomnia) prednisone 20 mg tablet 20 mg PO DAILY Qty: 5 0RF oxycodone 5 mg tablet 5 mg PO BID PRN (Reason: pain) Qty: 4 0RF Rx Instructions: Partial Fill upon patient request. cyclobenzaprine 10 mg tablet 10 mg PO TID PRN (Reason: muscle spasm) Qty: 10 0RF meclizine 25 mg tablet 25 mg PO DAILY PRN (Reason: dizziness) Qty: 14 0RF lidocaine 5 % adhesive patch,medicated 1 patch topical DAILY PRN (Reason: pain) Qty: 15 0RF Rx Instructions: leave on most painful area for up to 12 hrs acetaminophen [Tylenol] 325 mg capsule 325 mg PO Q4H PRN (Reason: pain) Qty: 30 0RF trazodone 150 mg tablet 150 mg PO BEDTIME hydroxyzine HCl 50 mg tablet 50 mg PO BEDTIME (DME) miscellaneous medical supply Misc See Rx Instructions .Route Qty: 1 0RF Rx Instructions: Quad cane use As directed oxycodone-acetaminophen 5-325 mg tablet 1 tab PO Q8H PRN (Reason: pain (scale score 7-10)) 7 Days Qty: 20 0RF Rx Instructions: Partial Fill upon patient request. naloxone [Narcan] 4 mg/actuation spray,non-aerosol 4 mg intranasal Q2M PRN (Reason: opioid overdose) Qty: 2 0RF Rx Instructions: spray 1 dose into ONE nostril; alternate nostrils w each dose until help arrives Print Language: Telugu
[2024-05-23 15:49] LABS: Influenza A PCR NEGATIVE (Negative); Influenza B PCR NEGATIVE (Negative); Resp Syncy Virus RNA Qual PCR NEGATIVE (Negative); SARS COV2 PCR INHOUSE NEGATIVE (Negative)
[2024-05-23 19:12] VITALS: BP 148/89; PULSE 109; RESP 20; O2SAT 98
[2024-05-23 22:20] LABS: MANUAL DIFF FLAG NO
[2024-05-23 22:21] LABS: Basophils Absolute Auto 0.1 X10*3/uL (0.0-0.2); Basophils Percent Auto 0.9 % (0-2); Eosinophils Absolute Auto 0.4 X10*3/uL (0.0-0.4); Eosinophils Percent Auto 5.5 % (0-4); Imm Gran Abs Auto 0.06 X10*3/uL (0.00-0.03); Imm Gran Pct Auto 0.9 % (0.0-0.4); Lymphocytes Absolute Auto 1.5 X10*3/uL (1.2-4.9); Lymphocytes Percent Auto 21.5 % (20-40); Mean Corpuscular HGB Conc 33.3 g/dl (31.0-36.0); Mean Corpuscular Hemoglobin 28.1 pg (27.0-33.0); Mean Corpuscular Volume 84.3 fL (80.0-98.0); Mean Platelet Volume 11.2 fL (9.4-12.4); Monocytes Absolute Auto 0.6 X10*3/uL (0.1-1.2); Monocytes Percent Auto 8.6 % (2-11); Neutrophils Absolute Auto 4.3 x10*3/uL (2.0-8.3); Neutrophils Percent Auto 62.6 % (45-73); Platelet Count 91 X10*3/uL (160-400); Red Blood Count 4.27 X10*6/uL (4.60-5.80); Red Cell Distribution Width 13.8 % (11.0-16.0); White Blood Count 6.9 X10*3/uL (4.8-10.8)
[2024-05-23 22:34] LABS: Alanine Aminotransferase 30 U/L (0-40); Albumin Level 3.7 g/dL (3.5-5.0); Alkaline Phosphatase 79 U/L (39-117); Anion Gap 14 (12-20); Aspartate Amino Transferase 26 U/L (5-37); Bilirubin Total 0.4 mg/dL (0.0-1.0); Blood Urea Nitrogen 14 mg/dL (9-16); Calcium 8.2 mg/dL (8.4-10.2); Carbon Dioxide 23 mmol/L (22-29); Chloride 108 mmol/L (96-108); Creatinine Clr Calc Pharmacy 90.4; Estimated Glomerular Filt Rate > 60; Glucose Random 188 mg/dL (60-115); Magnesium 1.9 mg/dL (1.6-2.6); Sodium 141 mmol/L (135-145); Total Protein 6.4 g/dL (6.5-8.0)
[2024-05-23 22:36] LABS: INTERNATIONAL NORM RATIO 1.1 (0.9-1.1); Prothrombin Time 12.6 SEC (10.9-12.4)
[2024-05-23 22:37] VITALS: BP 106/67; PULSE 98; RESP 16; TEMP 36.9; O2SAT 98
[2024-05-23 22:41] LABS: Troponin-I High Sensitivity 4.2 ng/L (<3.5-35.0)
[2024-05-23] MEDS: ondansetron HCL 4 MG/2 ML VIAL IVPUSH (22:58)
[2024-05-23] MEDS: Morphine Sulfate 4 MG/ML CARTRIDGE IVPUSH (22:58)
[2024-05-24 00:22] VITALS: BP 124/65; PULSE 89; RESP 18; TEMP 36.8; O2SAT 97
--- NOTE | 2024-05-24 00:23 | MHC.EDTECH ---
0000 rounding done ,vitals taken ,Patient awake ,drinking dorothy allen ,no apparent distress noted ,Plan of care continue .
--- NOTE | 2024-05-24 00:39 | MHC.EDTECH ---
Patient had ham sandwich and dorothy allen for snack .
[2024-05-24 01:00] VITALS: BP 124/65; PULSE 89; RESP 18; TEMP 36.8; O2SAT 97
== END 2024-05-24 01:00 | disposition home or self-care (01) ==
PROVIDERS: Registered Nurse Emergency; Emergency Provider Emergency Medicine Emergency Medical Services
DX: R55 Syncope and collapse (principal); R07.89 Other chest pain; M79.602 Pain in left arm; R51.9 Headache, unspecified; I25.10 Atherosclerotic heart disease of native coronary artery without angina pectoris; I45.10 Unspecified right bundle-branch block; Z79.899 Other long term (current) drug therapy; Z03.818 Encounter for observation for suspected exposure to other biological agents ruled out
CPT/HCPCS: 0241U; 70450; 71046; 80053; 83735; 84484; 85025; 85610; 93005; 96374; 96375; 99284; J2270; J2405

== ENCOUNTER → 2024-05-23 13:45 | Outpatient (BNV) | payer OTHER, SELFPAY | PROVIDERS: Visit Provider Internal Medicine | DX: I45.10 Unspecified right bundle-branch block (principal) | CPT/HCPCS: 93010 ==

== ENCOUNTER → 2024-05-23 14:17 | Outpatient (BNV) | payer OTHER, SELFPAY | PROVIDERS: Visit Provider Radiology Diagnostic Radiology | DX: R55 Syncope and collapse (principal); I51.7 Cardiomegaly | CPT/HCPCS: 70450; 71046 ==

== ENCOUNTER 2024-07-01 13:29 | Outpatient (REF) | payer OTHER, SELFPAY ==
--- NOTE | ~2024-07-01 | XR_ITS ---
CLINICAL HISTORY: PAIN Radiographs of the chest right ribs Comparison: CR/NC/SR - XR CHEST 2V - 05/23/24 14:[address]/SR - CT CHEST W IV CON - 04/26/24 13:57 EST Findings: No rib fracture or other acute osseous abnormality. Normal heart size. Left chest wall cardiac pacemaker/AICD. Remote median sternotomy. Normal mediastinal contours. No pneumothorax. No opacity. No pleural effusion. Normal upper abdomen. Impression: No rib fracture or other acute findings. This document has been electronically signed by: Ruba Gentile MD on 07/01/2024 15:54:37
--- OUTSIDE RECORDS SUMMARY | 2024-07-01 15:15 | XMS_ITS | Clinical Summary ---
Author Organization [facility] Address [address] [place] [address] Care Team Providers Care Alarm Mechanism Adjuster Name Role Phone Lauren Whittaker MD Primary Care Pro vider Allergies Active Allergy Reactions Criticality Noted Date Comments Atorvastatin Hives,Rash,Shortness of breath High 01/10/2008 Bee Venom 11/15/2023 Beef-Derived Drug Products Itching Low 06/29/2018 Ibuprofen Other 07/31/2018 Impaired renal function Levetiracetam Itching Low 06/05/2018 Morphine Swelling 10/01/2013 Hand swelling, one time Pea Anaphylaxis,Hives,It sue,Shortness of breath High 01/10/2008 Potato Itching Low 06/29/2018 Medications * This document contains information received from the source organization and may not represent a complete record from that organization. sotalol (Betapace) 80 MG tablet Take 1 tablet twice a day by oral route. 06/03/19 20 Active lidocaine (Lidoderm) 5 % patchIndicatio ns:Acute bilateral low back pain with sciatica, sciatica laterality unspecified Apply 1 patch topically Once per day. Remove & discard patch within 12 hours or as directed by . 15 patch 2 11/21/19 24 Active lisinopril 2.5 MG tablet Take 1 tablet (2.5 mg) by mouth Once per day. 30 tablet 3 12/14/19 24 Active Blood Pressure Monitoring (Blood Pressure Kit) kit 1 Device Once per day. 1 kit 12/14/19 24 Active glucose ([facility] Glucose) 4 g chewable tablet Use 16 g in the mouth or throat if needed. 10/02/19 14 Active naloxone (Narcan) 4 mg/0.1 mL nasal spray Administer 4 mg into affected nostril(s) if needed for opioid reversal. 12/26/19 24 Active NIFEdipine XL (Procardia XL) 30 MG 24 hr tablet Take 1 tablet by mouth Once per day. 01/07/20 24 Active levothyroxine (Synthroid, Levoxyl) 75 MCG tablet Take 1 tablet (75 mcg) by mouth Once per day. 30 tablet 3 02/01/20 24 Active Xarelto 20 MG tablet Take 1 tablet (20 mg) by mouth with evening meal. 30 tablet 3 02/01/20 24 025 Active Symbicort 80-4.5 MCG/ACT inhaler Inhale 2 puffs 2 times daily. 1 each 3 02/01/20 24 Active albuterol 108 (90 Base) MCG/ACT inhaler Inhale 2 puffs every 6 (six) hours if needed for wheezing or shortness of breath. 18 g 3 02/01/20 24 Active EPINEPHrine (Epipen) 0.3 MG/0.3ML injection syringe Inject 0.3 mg into the muscle if needed each day. 2 each 1 02/01/20 24 Active isosorbide mononitrate ER (Imdur) 30 MG 24 hr tablet Take 1 tablet (30 mg) by mouth Once per day. 30 tablet 3 02/01/20 24 Active ezetimibe (Zetia) 10 MG tablet Take 1 tablet (10 mg) by mouth Once per day. 30 tablet 3 02/01/20 24 Active metFORMIN (Glucophage) 500 MG tablet Take 1 tablet (500 mg) by mouth with breakfast and with evening meal. 60 tablet 3 03/13/20 24 Active melatonin 10 MG tablet Take 1 tablet (10 mg) by mouth at bedtime. 30 tablet 3 04/24/19 25 Active traZODone (Desyrel) 150 MG tablet Take 1 tablet (150 mg) by mouth at bedtime. 30 tablet 3 06/14/19 25 Active risperiDONE (RisperDAL) 0.5 MG tabletIndicati ons:Schizophre bhumika Take 1 tablet (0.5 mg) by mouth 3 times daily. 90 tablet 3 06/14/19 25 Active QUEtiapine (SEROquel) 100 MG tablet Take 1 tablet (100 mg) by mouth at bedtime. 30 tablet 3 06/14/19 25 Active hydrOXYzine HCl (Atarax) 50 MG tablet Take 1 tablet (50 mg) by mouth if needed at bedtime for anxiety (insomnia). 30 tablet 3 06/14/19 25 Active escitalopram (Lexapro) 20 MG tablet Take 1 tablet (20 mg) by mouth Once per day. 30 tablet 3 06/14/19 25 Active traMADol (Ultram) 50 MG tabletIndicati ons:Rib pain on right side Take 1 tablet (50 mg) by mouth every 6 (six) hours if needed for severe pain for up to 5 days. 15 tablet 07/02/19 25 025 Active tamsulosin (Flomax) 0.4 MG 24 hr capsule Take 1 capsule (0.4 mg) by mouth Once per day. Take 1 capsule every day by oral route. 30 capsule 3 07/02/19 25 Active risperiDONE (RisperDAL) 0.5 MG tablet Take 0.5 mg by mouth 3 times daily. 10/22/19 24 025 Discontinued(Re order (will not trigger notification to Pharmacy)) hydrOXYzine HCl (Atarax) 50 MG tablet Take 1 tablet (50 mg) by mouth if needed at bedtime for anxiety (insomnia). 30 tablet 3 12/11/19 24 025 Discontinued(Re order (will not trigger notification to Pharmacy)) escitalopram (Lexapro) 20 MG tablet Take 1 tablet (20 mg) by mouth Once per day. 30 tablet 3 02/01/20 24 025 Discontinued(Re order (will not trigger notification to Pharmacy)) tamsulosin (Flomax) 0.4 MG 24 hr capsule Take 1 capsule (0.4 mg) by mouth Once per day. Take 1 capsule every day by oral route. 30 capsule 3 02/01/20 24 025 Discontinued(Re order (will not trigger notification to Pharmacy)) traZODone (Desyrel) 150 MG tablet Take 1 tablet (150 mg) by mouth at bedtime. 30 tablet 3 03/13/20 24 025 Discontinued(Re order (will not trigger notification to Pharmacy)) QUEtiapine (SEROquel) 100 MG tablet Take 1 tablet (100 mg) by mouth at bedtime. 30 tablet 3 05/22/19 25 025 Discontinued(Re order (will not trigger notification to Pharmacy)) Hospital, Clinic, or Other Facility Administered Medication Ordered Dose Route Frequency Start Date End Date Status ketorolac (Toradol) injection 30 mgIndications:Rib pain on right side 30 mg IM Once 07/01/2024 07/01/2024 Ended Active Problems Problem Noted Date Diagnosed Date Mixed sleep apnea 07/01/2024 Mild intellectual disability 07/01/2024 Hypothyroidism 07/01/2024 Hyperlipemia 07/01/2024 Gouty arthritis 07/01/2024 Somatoform disorder 07/01/2024 Overview (07/01/2024): vs conversion IFG (impaired fasting glucose) 07/01/2024 [place] respiration 07/01/2024 Asthma 07/01/2024 Overview (07/01/2024): Mild intermittent Last Assessment & Plan: Alcoholism in remission 07/01/2024 History of alcohol abuse 07/01/2024 Rib pain on right side 07/01/2024 Assessment & Plan (07/01/2024 1:26 PM EDT): Seems to be adrenal in origin although with the absence of hematuria today and a normal CT scan, it is less likely unless the stone is already in the bladder. I will order renal ultrasound and restart Flomax nightly. Rx Toradol injection today, he tolerated in the past. Follow-up with PCP after renal ultrasound or earlier as needed Hematuria 07/01/2024 Assessment & Plan (07/01/2024 1:25 PM EDT): On previous UA at the emergency room, will order renal ultrasound to rule out kidney or bladder stones. Restart Flomax nightly and take tramadol as needed Increase p.o. water intake and follow-up with PCP Precordial chest pain 05/03/2024 Assessment & Plan (05/03/2024 11:31 PM EST): Alert does not appear in distress, denies chest pressure, tightness or pain. Denies SOB Plan Continue to take your meds as prescribed. Do not change or discontinue current prescriptions without consulting health care provider Seek immediate medical attention for chest pain, palpitations, SOB, syncope, or sudden changes in mental status. Eat heart healthy diet Family history of colon cancer 01/31/2024 Generalized obesity 01/31/2024 History of Julia-Taussig shunt 01/31/2024 History of disease 01/31/2024 Odynophagia 01/31/2024 Class 1 obesity 11/15/2023 Obesity, morbid 11/15/2023 Thrombocytopenia 11/15/2023 Dysuria 11/15/2023 Numbness 11/15/2023 Chest pain 11/15/2023 Assessment & Plan (05/03/2024 11:30 PM EST): Radiculopathy 11/15/2023 Ankylosing spondylitis of sacrococcygeal region 11/15/2023 History of ETOH abuse 11/15/2023 S/P implantation of automati c cardioverter/defibrillator (AICD) 11/15/2023 Health care maintenance 11/15/2023 Acute neck pain 03/14/2023 Overview (01/31/2024): Last Assessment & Plan: Patient has had multiple falls including the one that caused him to present to the hospital on 03/03 and another fall on 03/08 with associated head strike. CT imaging was negative for any bleed. No fractures seen on CT scan. Patient was placed in a C-collar and orthospine was consulted. He had tenderness in the midline of his neck is where has paraspinal thoracic and lumbar pain. Orthopedic surgery was consulted and they initially evaluated the patient and recommended MRI. MRI unable to be done as the patient has AICD which is not compatible. Orthopedics re-evaluated the patient and suggested CT myelogram which was performed. - CT myelograms read, awaiting C-collar re-evaluation by Orthopedic surgery for clearance V-tach 01/22/2023 Anxiety 10/04/2022 Overview (01/31/2024): Last Assessment & Plan: C/W Quetiapine and trazodone Assessment & Plan (04/29/2024 2:07 PM EST): During IBH Consult Joaquín presenting with excessive worry/anxiety, difficulty controlling worry, anxiety/worry associated to restlessness and/or feeling keyed-up/On edge , easily fatigued , difficulty concentrating and/or mind going blank , irritability, muscle tension , and sleep disturbance difficulty falling asleep, Fear , sense of dread , and auditory hallucinations with no commands; for a period of 18+ mo, for most or all symptoms in the context of financial concern, illness or family illness, housing, and chronic mental health condition, currently without care. Patient carries a diagnosis for schizophrenia and anxiety. Currently feeling very anxious due to his medical condition worsening and his housing situation. He lives with his cousin but it's only temporary. Pt has care nurse rn with [facility] who is assisting with his living situation. Pt is considering transitioning to nursing facility. Positive social support reported from extended family and closed friends. clinician engaged patient with active/reflective listening. Reviewed and assessed for risk, current stressors and protective factors using open-ended questions. Provided information for [facility] center and educated patient about the importance of reaching out to others. Practiced coping strategies during session and provided toolkit to help decrease anxiety. clinician will do referrals for Psychiatry and OP services. Per his preference, patient requested in-person for both services. GERD (gastroesophageal reflux disease) 3 Overview (01/31/2024): Last Assessment & Plan: Cont home PPI. - Continue Protonix Unequal blood pressure in upper extremities 10/01 Overview (01/31/2024): Last Assessment & Plan: The patient has unequal blood pressures in the upper extremities; 145/84 right arm and 114/69 left arm, in the setting of subclavian steal. 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 - f/u with outpatient cardiology for duplex U/S for symptomatic subclavian steal - f/u with vascular surgery for symptomatic subclavian steal Intraparenchymal hematoma of brain 08/27/2019 Overview (01/31/2024): Last Assessment & Plan: CT head showed: left periventricular white matter ill-defined 1 cm acute intraparenchymal hematoma. - Neurosurgery consult - repeat CTH 6 hours from initial then 24 hours (per NSG) - Dilantin x7 days per NSG - Hold ASA per NSG Angina pectoris, unstable 08/18/2019 Overview (01/31/2024): Added automatically from request for surgery [id number] Last Assessment & Plan: Patient complaining of left sided chest pain which is at least sometimes reproducible. Patient has had extensive cardiac workup in the past at [facility], and [facility] which has all been negative. Coronary CT has been -ve, Nuclear stress test was also -ve for any ischemic changes. Patient did have 12 beats of Vtach which was noted on tele but was not seen on ICD interrogration at [facility]. Echo was done at [facility] in February which was normal as well. Patient is on ranexa for angina currently on hold this admission due to syncopal episode. Troponin has been -ve x2. Cardiology has been consulted. Patient is also complaining on epigastric pain which could be GERD. Plan: - Will try SL nitroglycerin on him and place a lidocaine patch. -C/W protonix - follow up cards recs - Holding ranexa until seen by cards NICM (nonischemic cardiomyopathy) 08/18/2019 Overview (01/31/2024): Last Assessment & Plan: Home medications: Lisinopril 2.5 mg p.o. 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 Follows with Dr. Nix at [place]. etiology of HF was Non-ischemic cardiomyopathy, s/p AICD placement. BNP 92, CXR without CHF. Continue with giudeline directed medical therapy while in hospital. Most recent TTE below 08/2019 TTE: ?? S/p tetralogy of fallot repair. ?? Mildly reduced left ventricular ejection fraction is 45%. Global hypokinesis with minor regional variations. ?? Right ventricle not well visualized. The right ventricle appears dilated. Global systolic function is low normal. ?? Mild aortic valve regurgitation. Mild pulmonary regurgitation. ?? Mild to moderate tricuspid regurgitation. - Electrolyte repletion for potassium greater than 4.0 and magnesium greater than 2.0 - Repeat TTE - Telemetry - Continue lisinopril 2.5 mg p.o. daily (home medication) - Titrate GDMT regimen outpatient (patient may be a candidate for SGLT2 inhibitor) Schizophrenia 07/26/2019 Overview (11/15/2023): Last Assessment & Plan: History of schizophrenia. Medications not clarified. Current medications are Seroquel 100 mg nightly, Lexapro 20 mg daily and risperidone 1.5 mg nightly and trazodone 100 mg nightly. Continued on Lexapro, Seroquel and risperidone. Trazodone held in the setting of falls. - Continue Lexapro, Seroquel, Risperdal Tetralogy of Fallot 07/26/2019 Overview (11/15/2023): repaired as an . Last Assessment & Plan: Patient with dx of congenital tetrology of fallot with repair. - Monitor clinically Benign prostatic hyperplasia 05/29/2019 Clostridium difficile colitis 05/29/2019 Type 2 diabetes mellitus wit h hyperglycemia, without long-term current use of insulin 05/29/2019 Overview (11/15/2023): diet controlled Gout 05/29/2019 Paroxysmal atrial fibrillation 05/29/2019 AICD discharge 08/01/2018 Intellectual disability 07/30/2018 Anemia in chronic kidney disease (CKD) 9 CKD (chronic kidney disease) stage 2, GFR 60-89 ml/min 06/15/2018 Punctate hemorrhage of frontal lobe 06/15/2018 Syncope and collapse 06/15/2018 Overview (01/31/2024): Last Assessment & Plan: Presented after episode of syncope and collapse with longstanding history of intermittent syncope. Had pre-syncope symptoms of lightheadedness without postictal confusion. CT head on admission showed stable focal hypodensity in the left periventricular white matter, likely representing a cavernous angioma which has been identified previously. No other acute abnormalities. Neurological exam nonfocal. AICD interrogation negative. Orthostatic positive in the emergency room. Evaluated by Cardiology who stopped his Lisinopril and Ranexa. Sotalol restarted on this hospitalization. Patient did receive fluids. Repeat orthostatic vital signs on 03/06 and 03/13 negative. - HOLD Ranexa and Lisinopril - Continue compression stockings while ambulating. Has been quite effective. - PT recommending rehab - Cardiology following Major depressive disorder, r ecurrent severe without psychotic features 06/06/2018 Contusion of left frontal lobe 06/05/2018 Depression with suicidal ideation 06/02/2018 Dyspnea 06/02/2018 Prolonged QT interval 06/02/2018 Suicidal ideation 04/14/2018 Abnormal LFTs (liver function tests) 12/22/2017 Dyslipidemia 12/22/2017 History of orthostatic hypotension 12/22/2017 Impulse control disorder in adult 03/23/2017 Seizure disorder 11/06/2015 Dual ICD (implantable cardioverter-defibrillator ) in place 11/06/2015 Overview (07/01/2024): [employer] AVILA serial #[id number] Dual Chamber ICD implanted 06/12/08 Obstructive sleep apnea syndrome 11/06/2015 Overview (07/01/2024): Uses BIPAP 14/7 with humidified air, needs to sleep at an incline to avoid hypopnea Tetralogy of Fallot s/p repair 11/06/2015 RBBB 11/04/2015 Seizures 01/06/2015 Migraine without status migrainosus, not intract able 01/05/2015 Cerebral cavernoma 01/05/2015 Type 2 diabetes mellitus 01/05/2015 Personal history of alcoholism 10/13/2014 Obesity 10/13/2014 Chronic chest pain 10/13/2014 Overview (07/01/2024): History of chest pain with negative VQ scan, negative imaging for ischemic disease as well as negative stress test.? Paroxysmal supraventricular tachycardia 10/14/19 15 Overview (07/01/2024): Transient asymptomatic supraventricular tachycardia on Holter monitor.? -AT treated occasionally with ATP via DDD device Hypothyroidism due to acquired atrophy of thyroi d 10/13/2014 Essential hypertension 10/13/2014 Overview (07/01/2024): Setting of florinef use Hypothyroidism (acquired) 10/01/2013 Overview (01/31/2024): Last Assessment & Plan: Continue home dose of levothyroxine 75mg daily. - Continue Levothyroxine Hyperlipidemia 10/01/2013 Overview (11/15/2023): Last Assessment & Plan: Images from the original note were not included. Home medications: Ezetimibe 10 mg daily (allergic to atorvastatin- hives/dyspnea) Patient with a history of Hyperlipidemia, home regimen above. Most recent lipid panel below Latest Ref Rng & Units 10/03/2022 3:57 AM 07/27/2019 5:58 AM 02/02/2011 10:04 PM Lipids Cholesterol <200 mg/dL 172 198 137 Triglycerides <150 mg/dL 389 174 139 Cholesterol, HDL 40 - 59 mg/dL 37 41 36 LDL Cholesterol <100 mg/dL 57 122 73 - Continue home Ezetimibe 10 mg daily (allergic to atorvastatin- hives/dyspnea) - Consider initiation of PCSK9 inhibitor (monitor for LDL > 70) Obstructive sleep apnea 10/01/2013 Mood disorder 10/01/2013 Intermittent asthma, uncontrolled 10/01/2013 Pacemaker 10/01/2013 Wrist pain 08/26/2013 Morbid obesity 07/10/2013 Overview (07/01/2024): BMI 41.05 on 04/26/13. Family history of prostate cancer 02/27/2012 Overview (07/01/2024): Brother 44 Family history of bladder cancer 02/27/2012 Overview (07/01/2024): Father Autonomic dysfunction 12/06/2011 Syncope 10/14/2009 Overview (07/01/2024): Syncope; ?pseudosyncope -He has continued to have recurrent episodes of syncope and is felt to have neurocardiogenic syncope with a positive tilt test and was treated for a period of time with Florinef and compression stockings. This, however, had to be stopped because he was severely hypertensive on the Florinef -Finding of possible subclavian reconstituted vertebral vessels on recent cardiac catheterization. This catheterization was performed at [facility] on May. He was noted to have a completely occluded proximal left subclavian artery with a short occlusion followed by reconstitution of the vessel via retrograde flow from the left vertebral artery via collateral flow what appears to be (difficult visualization secondary to pacemaker placement and respiratory movement with DSA injection) a separate occlusion of the proximal left vertebral artery. Details of this catheterization are scanned into our online medical record.? -Carotid ultrasound performed at [facility] on July 06, 2007, that showed normal left vertebral artery flow. Exercise was not performed during that study, so they were unable to evaluate for reversal of flow.? -CT Head and Neck performed at [facility] on December 20, 2007. No acute territorial infarction. CTA of the head and neck within normal limits. Small hyperdense focus in the left frontal white matter probably representing a small cavernoma. Faint calcific density from prior infection may have this appearance. Less likely, it may be a slow growing mass. If MRI is contraindicated, follow up head CT in one year is suggested. Non-visualization of the origin and proximal left vertebral artery, likely occluded. The contrast seen distally is likely retrograde from the contralateral side. Basilar artery irregularity without high grade stenosis, -Frequent syncope on entrance to [facility], not to other hospitals -Stated VT and ICD shocks : on interrogation, no arrhythmia or shock -Multiple hospitalizations. Most recent October 2014 [facility], negative evaluation, then presented to [facility] via bus from [place], hospitalized, negative evaluation then came to [facility] wanting to be admitted, skilled nursing found 10/09/2014 Depressive disorder 10/14/2009 Overview (07/01/2024): Depression with overdose of Sotalol and Ativan 2012 Encounters * This document contains information received from the source organization and may not represent a complete record from that organization. Date Type Department Care Team Description 07/01/2024 1:40 PM EDT Office Visit [facility] [address] [place] [address] Rib pain on right side (Primary Dx); Hematuria, unspecified type 06/27/2024 Refill [facility] [address] [place] [phone] Gretel Sosa ANP 06/18/[address] [address] Lauren Whittaker MD FYI 06/13/2024 10:40 AM EDT Office Visit [facility] [address] [place] [address] Schizophrenia, unspecified type (CMS/HCC) (Primary Dx); Type 2 diabetes mellitus with hyperglycemia, without long-term current use of insulin (CMS/HCC) 06/11/2024 Telephone [facility] [address] [place] [phone] Lauren Whittaker MD May recalls 06/03/[address] [phone] Provider, Not In System 05/30/2024 Telephone [facility] [address] [place] [phone] Lauren Whittaker MD FYI 05/23/[address] [address] Jesi Vargas RN 05/23/2024 Travel 05/22/2024 Refill [facility] [address] [place] [phone] Lauren Whittaker MD 05/01/2024 Telephone [facility] [address] [place] [phone] Lauren Whittaker MD paperworks 04/26/2024 11:15 AM EST Office Visit [address] [address] DuanebobbioCarmene, PROGRAM PROJECT MANAGER Precordial chest pain (Primary Dx); Anxiety; Schizophrenia, unspecified type (CMS/HCC) 04/26/2024 Telephone [facility] [address] [place] [phone] Letty Han RN RAPID ASSIST 04/26/2024 Orders Only GENERIC EXTERNAL DATA DEPARTMENT Provider, Generic External Data 04/26/2024 Travel 04/24/[address] [address] Edda Reyes RN 04/10/[address] [address] Lauren Whittaker MD ER Follow-up 04/10/[address] [address] Lauren Whittaker MD Med Refill from Last 3 Months Immunizations Name Administration Dates Next Due COVID-19 Non-US Vaccine, Pro duct Unknown 03/08/2022 DTaP 11/26/1996, 3,09/02/1991,07/02,05/27/1991 HiB, unspecified 06/10/1992,199 2,07/03/1991,05/27 Influenza injectable quadriv alent preservative free 03/17/2023,01/05/2022 Influenza, IIV3, injectable 02/17/2022,0 04/17/2018,06/22/2016,03/02,03/19/2013,01/28/2013,01/06/2012 ,01/24/2011,01/17/2010,12/31/2008,01/01 Influenza, Unspecified 01/04/2012 Influenza, live, intranasal 01/21/2009 Influenza, seasonal, injecta ble, preservative free 12/14/2023 Pneumococcal Conjugate PCV 20 12/01/2022 Pneumococcal Polysaccharide PPSV23 02/08/2018, Tdap 12/14/2023,10/05/2012 Family History Medical History Relation Name Comments COPD Brother COPD Father MD at 70s Mother DM2 Sister Relation Name Status Comments Brother Father Mother Sister Social History Tobacco Use Types Packs/Day Years Used Date Smoking Tobacco: Former Cigarettes Passive Smoke Exposure: Never Smokeless Tobacco: Never Comments:Started smoking 21 y of age and stopped 22 y of age -10 cig a day Alcohol Use Standard Drinks/Week Comments Not Currently 0 (1 standard drink = 0.6 oz pure alcohol) hx of heavy rinking but stopped 03/2021 Depression Answer Date Recorded Patient Health Questionnaire-9 Score 12 04/29/2024 Patient Health Questionnaire-9 Score 12 04/29/2024 Last PHQ-9: Questionnaire Data Not on file 0 04/29/2024 Housing Stability Answer Date Recorded What is your housing situation today? I have andrew torres 11/15/[address] you li ve. Do you have problems with any of the following? None of the above 11/15/2023 Food Insecurity Answer Date Recorded Within the past 12 months, y ou worried that your food would run out before you got money to buy more: Never True 11/15/2023 Within the past 12 months,th e food you bought just didn't last and you didn't have enough money to get more: Never True Transportation Answer Date Recorded In the past 12 months, has l ack of transportation kept you from medical appts, meetings, work or from getting things needed for daily living? No 11/15/2023 Utilities Answer Date Recorded In the past 12 months, has t he electric, gas, oil or water company threatened to shut off services in your home? No 11/15/2023 Depression Answer Date Recorded Patient Health Questionnaire-2 Score 2 04/29/2024 Internet Access Answer Date Recorded Internet Access Q1 No 12/04/2023 Internet Access Q2 Not on file 12/04/2023 Sex and Gender Information Value Date Recorded Sex Assigned at Male 08/23/2023 2:31 PM EDT Legal Sex Male 2:27 PM EDT Gender Identity Male 08/23/2023 2:31 PM EDT Sexual Orientation Straight 11/15/2023 8: 40 AM EDT Last Filed Vital Signs Vital Sign Reading Time Taken Comments Blood Pressure 130/75 07/01/2024 12:50 PM EDT Pulse 78 07/01/2024 12:50 PM EDT Temperature 36.8 ??C (98.2 ??F) 07/01/2024 12:50 PM E DT Respiratory Rate 18 07/01/2024 12:50 PM EDT Oxygen Saturation 97% 07/01/2024 12:50 PM EDT Inhaled Oxygen Concentration - - Weight 116 kg (256 lb) 07/01/2024 12:50 PM EDT Height 175.3 cm (5' 9 ) 06/13/2024 10:40 AM EDT Body Mass Index 37.8 06/13/2024 10:40 AM EDT Plan of Treatment Upcoming Encounters Date Type Department Care Team (Late st Contact Info) Description 07/23/2024 10:30 AM EDT Office Visit [facility] [address] [place] [phone] Coral Avendano, OD [address] [place] [address] 08/22/2024 2:15 PM EDT Office Visit [facility] [address] [place] [address] Lauren Whittaker MD [address] [place] [address] Health Maintenance Due Date Last Done Comments CT Colonography 1962 Colonoscopy 1962 Colorectal Cancer Screening 1962 FIT DNA/Cologuard 1962 FIT 1962 FOBT 1962 Sigmoidoscopy 1962 Diabetes: Foot Exam 01/26/1972 Eye Exam 01/26/1972 Alcohol/Substance Use Screening 1974 Zoster Vaccines (1 of 2) 01/26/2012 RSV Patients and Patients Aged 60 years or older (1 - Risk 60-74 years 1-dose series) 2022 COVID-19 Vaccine ( season) 2023 03/08/2022, 06/03/2020, 05/06/2020 Depression Monitoring (PHQ-9) 10/27/2024 04/29/2024, 04/29/2024 Diabetes: Urine Protein Screening 11/14/2024 11/15/2023 SDOH Screening 11/14/2024 11/15/2023 Lipid Panel 12/11/2024 12/12/2023 Diabetes: Hemoglobin A1C 12/14/2024 025, 12/12/2023, 11/15/2023 Depression Screening 04/29/2025 04/29/2024, 04/29/19 Tobacco Screening 06/13/2025 06/13/2024 DTaP/Tdap/Td Vaccines (8 - Td or Tdap) 12/13/2033 12/14/2023, 10/05/2012, 11/26/1996, Additional history exists HIB Vaccines Aged Out 06/10/1992, 04/1991, 07/03/1991, Additional history exists No longer eligible based on patient's age to complete this topic Pneumococcal Vaccine: 50+ Years Completed 12/01/2022, 02/08/2018, 04/19/2011, Additional history exists HIV Screening Completed 12/12/2023 Hepatitis C Screening Completed 12/12/2023 Influenza Vaccine Completed 02/08/2024, , 12/14/2023, Additional history exists HPV Vaccines Aged Out No longer eligi ble based on patient's age to complete this topic Hepatitis A Vaccines Aged Out No long er eligible based on patient's age to complete this topic Hepatitis B Vaccines Aged Out No long er eligible based on patient's age to complete this topic IPV Vaccines Aged Out No longer eligi ble based on patient's age to complete this topic Meningococcal Vaccine Aged Out No waqas mayank eligible based on patient's age to complete this topic RSV under 20 months Aged Out No longe r eligible based on patient's age to complete this topic Rotavirus Vaccines Aged Out No longer eligible based on patient's age to complete this topic Procedures Procedure Name Priority Date/Time Associated Diagnosis Comments POCT GLYCATED HEMOGLOBIN, TOTAL Routine 06/13/2024 11:30 AM EDT Type 2 diabetes mellitus with hyperglycemia, without long-term current use of insulin ([facility]) POCT GLUCOSE Routine 06/13/2024 11:30 AM EDT Type 2 diabetes mellitus with hyperglycemia, without long-term current use of insulin ([facility]) LIPASE Routine 04/26/2024 1:43 PM EST BASIC METABOLIC PANEL Routine 04/26/2024 1:43 PM EST HEPATIC FUNCTION PANEL Routine 04/26/2024 1:43 PM EST HIGH SENSITIVITY TROPONIN I Routine 04/26/2024 1:43 PM EST CBC WITH AUTO DIFFERENTIAL Routine 04/26/2024 1:43 PM EST GLUCOSE, WHOLE BLOOD Routine 04/26/2024 1:41 PM EST HEPATITIS C AB W/REFL TO HCV RNA, QN, PCR Routine 12/12/2023 11:54 AM EDT Annual physical exam HIV 1/2 ANTIGEN/ANTIBODY, FOURTH GENERATION W/RFL Routine 12/12/2023 11:54 AM EDT Annual physical exam LIPID PANEL, STANDARD Routine 12/12/2023 11:54 AM EDT Annual physical exam ALBUMIN, RANDOM URINE W/CREATININE Routine 11/15/2023 9:30 AM EDT Annual physical exam from Last 3 Months or Most Recently Relevant to Health Maintenance Results * (ABNORMAL) POCT A1C (06/13/2024 11:30 AM EDT) Hemoglobin A1C 6.9(A) 4.0 - 6.0 % Blood 06/13/2024 11:3 0 AM EDT Donna Walsh DO POINT OF CARE TEST ENTER/BENJAMIN T ORDERABLES Final Result * POCT glucose manually resulted (06/13/2024 11:30 AM EDT) Pathologist [facility] Glucose Blood, POC 138 60 - 200 mg/dL Blood Capillary blood specimen / Unknown 06/13/2024 11:30 AM EDT Donna Walsh DO POINT OF CARE TEST ENTER/BENJAMIN T ORDERABLES Final Result * High Sensitivity Troponin I (04/26/2024 1:43 PM EST) [facility] TROPONIN I HIGH SENSITIVITY 3.5 <3.5 - 35.0 ng/L [facility] Comment:The [place] high sens itivity Troponin-I results should beused in conjunction with other diagnostic information suchas ECG, clinical observations and information, and patientsymptoms to aid in the diagnosis of MD. 04/26/2024 1:43 PM EST 04/26/2024 1:45 PM EST us Generic External Data Provider LAB BLOOD ORDERAB LES Final Result [facility] [address] [place] [phone] * (ABNORMAL) CBC auto differential (04/26/2024 1:43 PM EST) [facility] White Blood Count 5.3 4.8 - 10.8 X10*3/uL [facility] Red Blood Count 4.51(L) 4.60 - 5.80 X10*6/uL [facility] Hemoglobin 12.7(L) 14.0 - 18.0 g/dl [facility] Hematocrit 38.4(L) 42.0 - 52.0 % [facility] Mean Corpuscular Volume 85.1 80.0 - 98.0 fL [facility] Mean Corpuscular Hemoglobin 28.2 27.0 - 33.0 pg [facility] Mean Corpuscular HGB Conc 33.1 31.0 - 36.0 g/dl [facility] Red Cell Distribution Width 13.0 11.0 - 16.0 % [facility] Platelet Count 110(L) 160 - 400 X10*3/uL [facility] Mean Platelet Volume 10.1 9.4 - 12.4 fL [facility] Neutrophils Percent Auto 59.7 45 - 73 % [facility] Imm Gran Pct Auto 1.1(H) 0.0 - 0.4 % [facility] Lymphocytes Percent Auto 25.8 20 - 40 % [facility] Monocytes Percent Auto 9.0 2 - 11 % [facility] Eosinophils Percent Auto 3.6 0 - 4 % [facility] Basophils Percent Auto 0.8 0 - 2 % [facility] NRBC Pct Auto 0.0 0.0 - 0.2 /100WBC [facility] Neutrophils Absolute Auto 3.2 2.0 - 8.3 x10*3/uL [facility] Imm Gran Abs Auto 0.06(H) 0.00 - 0.03 X10*3/uL [facility] Lymphocytes Absolute Auto 1.4 1.2 - 4.9 X10*3/uL [facility] Monocytes Absolute Auto 0.5 0.1 - 1.2 X10*3/uL [facility] Eosinophils Absolute Auto 0.2 0.0 - 0.4 X10*3/uL [facility] Basophils Absolute Auto 0.0 0.0 - 0.2 X10*3/uL [facility] NRBC Abs Auto 0.000 0.0 - 0.012 X10*3/uL [facility] 04/26/2024 1:43 PM EST 04/26/2024 1:45 PM EST us Generic External Data Provider LAB BLOOD ORDERAB LES Final Result [facility] [address] [place] [phone] [phone] * Lipase (04/26/2024 1:43 PM EST) Lipase 29 8 - 78 U/L [facility] 04/26/2024 1:43 PM EST 04/26/2024 1:45 PM EST us Generic External Data Provider LAB BLOOD ORDERAB LES Final Result [facility] [address] [place] [phone] * (ABNORMAL) Hepatic Function Panel (04/26/2024 1:43 PM EST) Bilirubin, Total 0.7 0.0 - 1.0 mg/dL [facility] Bilirubin, Direct 0.2 0.0 - 0.5 mg/dL [facility] Aspartate Amino Transferase 40(H) 5 - 37 U/L [facility] Alanine Aminotransferase 38 0 - 40 U/L [facility] Total Protein 6.6 6.5 - 8.0 g/dL [facility] Albumin Level 3.7 3.5 - 5.0 g/dL [facility] Alkaline Phosphatase 79 39 - 117 U/L [facility] 04/26/2024 1:43 PM EST 04/26/2024 1:45 PM EST us Generic External Data Provider LAB BLOOD ORDERAB LES Final Result Performing Organization Address City/[facility]/ZIP Co de Phone Number [facility] [address] [place] [phone] * (ABNORMAL) Basic Metabolic Panel (04/26/2024 1:43 PM EST) Sodium 143 135 - 145 mmol/L [facility] Potassium 4.1 3.3 - 5.1 mmol/L [facility] Chloride 109(H) 96 - 108 mmol/L [facility] Carbon Dioxide 25 22 - 29 mmol/L [facility] Anion Gap 13 12 - 20 [facility] Urea Nitrogen (BUN) 13 9 - 16 mg/dL [facility] Creatinine, Serum 1.18 0.5 - 1.4 mg/dL [facility] Creatinine Clr Calc Pharmacy 78.9 [facility] Comment:eGFR (calculated fro m the MDRD study equation) and eCrCl(calculated from the Cockcroft-Gault equation) are based ondifferent parameters and may not yield comparable results.If eCrCl result is absurd, please check patient'sheight/weight. Estimated Glomerular Filt Rate >60 [facility] Comment:Chronic Kidney Disea se: Estimated GFR < 60 mL/min/1.78r2Avwtpj Kidney Disease: Estimated GFR < 15 mL/min/1.73m2 Glucose 132(H) 60 - 115 mg/dL [facility] Calcium 8.1(L) 8.4 - 10.2 mg/dL [facility] 04/26/2024 1:43 PM EST 04/26/2024 1:45 PM EST Generic External Data Provider LAB BLOOD ORDERAB LES Final Result Performing Organization Address City/[facility]/ZIP Co de Phone Number [facility] [address] [place] [phone] * (ABNORMAL) Glucose, Whole Blood (04/26/2024 1:41 PM EST) Glucose, Whole Blood 126(H) 60 - 115 mg/dL [facility] Comment:METER #: [id number] 04/26/2024 1:41 PM EST 04/26/2024 1:44 PM EST Generic External Data Provider LAB BLOOD ORDERAB LES Final Result Performing Organization Address [facility] Co de Phone Number [facility] [address] [place] [phone] * Hepatitis C Antibody with Reflex to HCV, RNA, Quantitative, Real-Time PCR (12/12/2023 11:54 AM EDT) Hepatitis C Antibody Nonreactive Nonreactive [facility] Comment:Antibodies to HCV no t detected; does not exclude early acuteHCV infection. Blood Venous blood specimen / Unknown 12/12/2023 11:54 AM EDT 12/12/2023 1:04 PM EDT us Lauren Solomon MD LAB BLOOD ORDERAB LES Final Result Performing Organization Address [facility]/ZIP Co de Phone Number [facility] [address] [place] [phone] * HIV-1/2 Antigen and Antibodies, Fourth Generation, with Reflexes (12/12/2023 11:54 AM EDT) HIV AB/AG Nonreactive Nonreactive [facility] Comment:HIV-1 p24 Ag and/or HIV-1/HIV-2 Ab not detected.A test result that is nonreactive does not exclude thepossibility of exposure to or infection with HIV-1 and/orHIV-2. Nonreactive results in this assay for individualswith prior exposure to HIV-1 and/or HIV-2 may be due toantigen and antibody levels that are below the limit ofdetection of this assay.The [employer] HIV Ag/Ab Combo assay result andsupplemental assay results should be interpreted inconjunction with the patient's clinical presentation,history and other laboratory results. If the results areinconsistent with clinical evidence, additional testing issuggested to confirm the result. Blood Venous blood specimen / Unknown 12/12/2023 11:54 AM EDT 12/12/2023 1:04 PM EDT us Lauren Solomon MD LAB BLOOD ORDERAB LES Final Result Performing Organization Address [facility]/ZIP Co de Phone Number [facility] [address] [place] [phone] * (ABNORMAL) Lipid Panel, Standard (12/12/2023 11:54 AM EDT) Triglycerides 80 <150 mg/dL [facility] Comment:Desirable Triglyceri de: less than 150 mg/dLBorderline High Triglyceride 150-199 mg/dLHigh Triglyceride: 200-499 mg/dLVery High Triglyceride: greater than or equal to 5OO mg/dL Cholesterol 184 <200 mg/dL [facility] Comment:Desirable Cholestero l: less than 200 mg/dLBorderline High Cholesterol: 200-239 mg/dLHigh Cholesterol: greater than 239 mg/dL LDL Cholesterol Calculated 113(H) <100 mg/dL [facility] Comment:Desirable LDL: less than 100 mg/dLNear Optimal/Above Optimal LDL: 110- 129 mg/dLBorderline High LDL: 130-159 mg/dLHigh LDL: 160-189 mg/dLVery High LDL: greater than or equal to 190 mg/dL HDL Cholesterol 55 >40 mg/dL [facility] Comment:Desirable HDL: great er than 40 mg/dL Note: This HDL assay may give artificially low results in patients with liver disease. Blood Venous blood specimen / Unknown 12/12/2023 11:54 AM EDT 12/12/2023 1:04 PM EDT us Lauren Solomon MD LAB BLOOD ORDERAB LES Final Result Performing Organization Address City/[facility]/ZIP Co de Phone Number [facility] [address] [place] [phone] * Albumin, Random Urine W/Creatinine (11/15/2023 9:30 AM EDT) Creatinine, Urine 88.58 mg/dL [facility] Microalbumin Urine <5.0 mg/L [facility] Microalbum Creatinine Ratio Ur TNP <30 ug/mg cr [facility] Comment:Unable to calculate albumin/creatinine ratio due to lowmicroalbumin or creatinine result. 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
--- OUTSIDE RECORDS SUMMARY | 2024-07-01 15:15 | XMS_ITS | Clinical Summary ---
Author Organization [facility] Address [address] [place] [address] Phone Care Team Providers Care Operations Specialists Name Role Phone DavionmynorattilaAmari virk Primary Care Provider Allergies Active Allergy Reactions Criticality Noted Date Comments Atorvastatin Hives,Rash Medium 10/01/2013 Medications albuterol HFA (PROAIR HFA ; PROVENTIL HFA ; VENTOLIN HFA) 90 mcg/actuation inhaler Inhale 1-2 puffs every 4-6 hours as needed for shortness of breath. 7 g 05/10/19 26 Active Active Problems No known active problems Encounters Date Type Department Care Team Description 06/23/2024 6:06 AM EDT - 06/23/2024 9:24 AM EDT [facility] Emergency [address] [place] [phone] Rex Vargas MD Precordial chest pain (Primary Dx) Discharge Disposition: Home or Self Care 05/10/2024 3:22 PM EST - 05/10/2024 4:32 PM EST [facility] Emergency [address] [place] [phone] Chest pain on breathing (Primary Dx) Discharge Disposition: Home or Self Care 05/05/2024 12:28 PM EST - 05/05/2024 4:48 PM EST [facility] Emergency [address] [place] [address] [place] [phone] Britton Elaine MD Chest pain, unspecified type (Primary Dx) Discharge Disposition: Home or Self Care 04/08/2024 10:32 AM EST - 04/08/2024 3:38 PM EST Emergency [facility] Emergency [address] [place] [phone] Wally Amaral MD Contusion of right elbow, initial encounter (Primary Dx) Discharge Disposition: Home or Self Care from Last 3 Months Surgical History Surgery Date Site/Laterality Comments CARDIAC PACEMAKER PLACEMENT PROCEDURE:CARDIAC PACEMAKER PLACEMENT;COMMENT:[facility] TETRALOGY OF FALLOT REPAIR PROCEDURE:TETRALOGY OF FALLOT REPAIR Medical History Medical History Date Comments Tetralogy of Fallot DX:Tetralogy of Fallot Atrial fibrillation (CMS/HCC) DX :Atrial fibrillation (HCC) Hypertension DX:Hypertension Diabetes mellitus (CMS/HCC) DX:D iabetes mellitus (HCC) Hypercholesteremia DX:Hyperchole steremia Sleep apnea, obstructive DX:Slee p apnea, obstructive Seizures (CMS/HCC) 01/06/2015 DX:Seizures ( [facility]) Family History Medical History Relation Name Comments Cancer Father Heart disease Mother Relation Name Status Comments Father Mother Social History Tobacco Use Types Packs/Day Years Used Date Smoking Tobacco: Never Smokeless Tobacco: Never Alcohol Use Standard Drinks/Week Comments No 0 (1 standard drink = 0.6 oz pur e alcohol) Sex and Gender Information Value Date Recorded Sex Assigned at Male 02/11/2024 7:04 AM EST Legal Sex Male 2:40 AM EST Gender Identity Male 02/11/2024 7:04 AM EST Sexual Orientation Straight 02/11/2024 7: 04 AM EST Obstetrics History Last Filed Vital Signs Vital Sign Reading Time Taken Comments Blood Pressure 103/56 06/23/2024 4:03 AM EDT Pulse 82 06/23/2024 4:03 AM EDT Temperature 36.7 ??C (98.1 ??F) 06/23/2024 4:03 AM ED T Respiratory Rate 18 06/23/2024 4:03 AM EDT Oxygen Saturation 96% 06/23/2024 4:03 AM EDT Inhaled Oxygen Concentration - - Weight 109 kg (240 lb) 06/23/2024 4:03 AM EDT Height 175.3 cm (5' 9 ) 06/23/2024 4:03 AM EDT Body Mass Index 35.44 06/23/2024 4:03 AM EDT Plan of Treatment Health Maintenance Due Date Last Done Comments Diabetes: Annual Foot Exam 01/26/1972 Diabetes: Annual Retina Eye Exam 01/26/1972 Zoster Vaccines (1 of 2) 01/26/2012 RSV Immunization Patients 60+ Years Old (1 - Risk 60-74 years 1-dose series) 2022 Colorectal Cancer Screening: Colonoscopy 03/06/2022 Medicare Annual Wellness Visit 03/06/2022 Social Influencers of Health Screening 03/06/2022 Diabetes: Annual Urine Albumin-Creatinine Ratio (uACR) 03/21/2022 COVID-19 Vaccine ( season) 2023 06/03/2020, 05/06/2020 Diabetes: Blood Sugar Control Test (HGBA1C) 12/14/2024 06/13/2024, 02/12/2024, 12/12/2023, Additional history exists Depression Screening 04/29/2025 04/29/2024 Diabetes: Annual GFR (Glomerular Filtration Rate) 06/23/2025 06/23/2024, 05/10/2024, 05/05/2024, Additional history exists Hypertension/CHF/CAD Annual BMP Blood Test 06/23/2025 06/23/2024, 05/10/2024, 05/05/2024, Additional history exists Cholesterol Screening (Lipid Panel) 12/11/2028 12/12/2023, 08/16/2020 DTaP,Tdap,and Td Vaccines (9 - Td or Tdap) 12/13/2033 12/14/2023, 01/05/2015, 10/05/2012, Additional history exists HIB Vaccines Aged Out 06/10/1992, 04/1991, 07/03/1991, Additional history exists No longer eligible based on patient's age to complete this topic Pneumococcal Vaccine: 50+ Years Completed 12/01/2022, 02/08/2018, 01/05/2015, Additional history exists Pneumococcal Vaccine: Pediatrics (0 to 5 Years) and At-Risk Patients (6 to 64 Years) Completed 12/01/2022, 02/08/2018, 01/05/2015, Additional history exists HIV Screening Completed 12/12/2023 Hepatitis C Screening Completed 12/12/2023 Influenza Vaccine Completed 02/08/2024, , 03/17/2023, Additional history exists HPV Vaccines Aged Out [...] on patient's age to complete this topic MMR Vaccines Aged Out No longer eligi ble based on patient's age to complete this topic Meningococcal ACWY Vaccine Aged Out N o longer eligible based on patient's age to complete this topic Meningococcal B Vacine Aged Out No lo nger eligible based on patient's age to complete this topic RSV Immunization Patients Under 20 months Aged Out No longer eligible based on patient's age to complete this topic Varicella Vaccines Aged Out No longer eligible based on patient's age to complete this topic Procedures Procedure Name Priority Date/Time Associated Diagnosis Comments ECG ANNOTATED 06/24/2024 TROPONIN I HIGH SENSITIVITY STAT 06/23/2024 5:34 AM EDT XR CHEST 2 VIEWS STAT 06/23/2024 4:23 AM EDT CBC WITH AUTO DIFFERENTIAL STAT 06/23/2024 4:13 AM EDT MAGNESIUM STAT 06/23/2024 4:13 AM EDT LIPASE STAT 06/23/2024 4:13 AM EDT COMPREHENSIVE METABOLIC PANEL STAT 06/23/2024 4:13 AM EDT CBC AND DIFFERENTIAL STAT 06/23/2024 4:13 AM EDT TROPONIN I HIGH SENSITIVITY STAT 06/23/2024 4:13 AM EDT ECG 12-LEAD STAT 06/23/2024 3:57 AM EDT XR CHEST 2 VIEWS STAT 05/10/2024 3:48 PM EST ECG 12-LEAD STAT 05/10/2024 2:03 PM EST TROPONIN I HIGH SENSITIVITY STAT 05/10/2024 1:58 PM EST CBC WITH AUTO DIFFERENTIAL STAT 05/10/2024 1:18 PM EST MAGNESIUM STAT 05/10/2024 1:18 PM EST LIPASE STAT 05/10/2024 1:18 PM EST COMPREHENSIVE METABOLIC PANEL STAT 05/10/2024 1:18 PM EST CBC AND DIFFERENTIAL STAT 05/10/2024 1:18 PM EST TROPONIN I HIGH SENSITIVITY STAT 05/10/2024 1:18 PM EST ECG 12-LEAD STAT 05/10/2024 1:07 PM EST ECG ANNOTATED 05/10/2024 ECG ANNOTATED 05/10/2024 ECG 12-LEAD STAT 05/05/2024 2:16 PM EST TROPONIN I HIGH SENSITIVITY STAT 05/05/2024 2:15 PM EST XR CHEST 2 VIEWS STAT 05/05/2024 1:12 PM EST ECG 12-LEAD STAT 05/05/2024 1:01 PM EST CBC WITH AUTO DIFFERENTIAL STAT 05/05/2024 12:55 PM EST B-TYPE NATRIURETIC PEPTIDE STAT 05/05/2024 12:55 PM EST MAGNESIUM STAT 05/05/2024 12:55 PM EST LIPASE STAT 05/05/2024 12:55 PM EST COMPREHENSIVE METABOLIC PANEL STAT 05/05/2024 12:55 PM EST CBC AND DIFFERENTIAL STAT 05/05/2024 12:55 PM EST TROPONIN I HIGH SENSITIVITY STAT 05/05/2024 12:55 PM EST ECG ANNOTATED 05/05/2024 ECG ANNOTATED 05/05/2024 XR ELBOW 3+ VIEWS RIGHT STAT 04/08/2024 12:49 PM EST XR HUMERUS 2+ VIEWS RIGHT STAT 04/08/2024 12:49 PM EST XR CHEST 2 VIEWS STAT 04/08/2024 12:4 9 PM EST ECG 12-LEAD STAT 04/08/2024 12:12 PM EST TROPONIN I HIGH SENSITIVITY STAT 04/08/2024 12:01 PM EST ACTIVATED PARTIAL THROMBOPLASTIN TIME STAT 04/08/2024 11:[address] CERVICAL SPINE WO CONTRAST STAT 04/08/2024 11:[address] HEAD WO CONTRAST STAT 04/08/2024 1 1:20 AM EST CBC WITH AUTO DIFFERENTIAL STAT 04/08/2024 10:53 AM EST B-TYPE NATRIURETIC PEPTIDE STAT 04/08/2024 10:53 AM EST MAGNESIUM STAT 04/08/2024 10:53 AM EST LIPASE STAT 04/08/2024 10:53 AM EST COMPREHENSIVE METABOLIC PANEL STAT 04/08/2024 10:53 AM EST CBC AND DIFFERENTIAL STAT 04/08/2024 10:53 AM EST TROPONIN I HIGH SENSITIVITY STAT 04/08/2024 10:53 AM EST ECG 12-LEAD STAT 04/08/2024 10:50 AM EST ECG ANNOTATED 04/08/2024 ECG ANNOTATED 04/08/2024 ECG OUTSIDE 04/08/2024 HEMOGLOBIN A1C Routine 02/12/2024 6:11 AM EST Hypothyroidism, unspecified Paroxysmal atrial fibrillation (CMS/HCC) from Last 3 Months or Most Recently Relevant to Health Maintenance Results * ECG-Annotated (06/24/2024) Only the most recent of7 resultswithin the time period is included. us Provider Onbase ECG ORDERABLES Final Result * Troponin I high sensitivity (06/23/2024 5:34 AM EDT) Only the most recent of8 resultswithin the time period is included. High Sensitivity Troponin I 5 <=79 ng/L LAB CHEMISTRY METHOD 06/23/2024 6:34 AM EDT [facility] Blood Venous blood specimen / Unknown Venipuncture / Unknown 06/23/2024 5:34 AM EDT 06/23/2024 6:09 AM EDT Narrative [facility] - 06/23/2024 6:34 AM EDT High levels of biotin in samples may falsely decrease hsTroponin values. ??Use caution when interpreting hsTroponin results in patients taking biotin who exhibit renal impairment (eGFR <60) or in patients taking more than 20 mg/day of biotin. us Lyubov Trimble MD LAB BLOOD ORDERABLES Fin al Result [facility] [address] [place] [address], * XR Chest 2 Views (06/23/2024 4:23 AM EDT) Only the most recent of4 resultswithin the time period is included. Anatomical Region Laterality Modality Body Radiographic Masha ging 06/23/2024 8:34 AM EDT Impressions 06/23/2024 8:36 AM EDT Impression: 1. Stable cardiomegaly with ICD in place. 2. No active pulmonary process. Telerad HEAVENLY ([id number]) -------- FINAL REPORT -------- Dictated By: Bruna Flores Dictated Date: 06/23/2024 08:34 ET Assigned Physician: Bruna Flores Reviewed and Electronically Signed By: Bruna Flores Signed Date: 06/23/2024 08:36 ET Workstation ID: [id number] Transcribed By: Self Edit Transcribed Date: 06/23/2024 08:34 ET Narrative 06/23/2024 8:36 AM EDT History: Chest pain. Comparison: 05/10/2024, 02/04/2024 Findings: PA and lateral views. The cardiac silhouette remains mildly enlarged. Sternal sutures are again noted. A left subclavian transvenous ICD is again seen, with leads terminating in the expected locations of the right atrium and ventricle, stable from previous. The david are not enlarged. The pulmonary vascularity is within normal limits. The lungs are clear. The costophrenic angles are sharp. Smooth, flowing hyperostosis is seen along the anterior aspect of the thoracic spine. Procedure Note Bruna Flores MD - 06/23/2024 History: Chest pain. Comparison: 05/10/2024, 02/04/2024 Findings: PA and lateral views. The cardiac silhouette remains mildly enlarged.Sternal sutures are again noted. A left subclavian transvenous ICD isagain seen, with leads terminating in the expected locations of the rightatrium and ventricle, stable from previous. The david are not enlarged. The pulmonary vascularity is within normallimits. The lungs are clear. The costophrenic angles are sharp. Smooth, flowing hyperostosis is seen along the anterior aspect of thethoracic spine. IMPRESSION: Impression: 1. Stable cardiomegaly with ICD in place. 2. No active pulmonary process. Telerad HEAVENLY ([id number]) -------- FINAL REPORT -------- Dictated By: Bruna Flores Dictated Date: 06/23/2024 08:34 ET Assigned Physician: Bruna Flores Reviewed and Electronically Signed By: Bruna Flores Signed Date: 06/23/2024 08:36 ET Workstation ID: [id number] Transcribed By: Self Edit Transcribed Date: 06/23/2024 08:34 ET us Lyubov Trimble MD IMG XR PROCEDURES Final Result * (ABNORMAL) CBC auto differential (06/23/2024 4:13 AM EDT) Only the most recent of4 resultswithin the time period is included. WBC 6.5 4.8 - 10.8 K/mcL LAB [facility] RBC 4.30(L) 4.50 - 5.50 M/mcL LAB HEMETOLOGY METHOD 06/23/2024 4:[address] [facility] Hemoglobin 12.1(L) 13.5 - 17.5 g/dL LAB HEMETOLOGY METHOD 06/23/2024 4:[address] [facility] Hematocrit 37.6(L) 42.0 - 54.0 % LAB HEMETOLOGY METHOD 06/23/2024 4:[address] [facility] MCV 87.6 79.0 - 98.0 FL LAB HEMETOLOGY METHOD 06/23/2024 4:35 AM EDT [facility] MCH 28.2 27.0 - 32.0 pcg LAB HEMETOLOGY METHOD 06/23/2024 4:[address] [facility] MCHC 32.2 32.0 - 37.0 g/dL LAB HEMETOLOGY METHOD 06/23/2024 4:[address] [facility] RDW 13.5 11.0 - 15.0 % LAB HEMETOLOGY METHOD 06/23/2024 4:[address] [facility] Platelets 81(L) 130 - 400 K/mcL LAB HEMETOLOGY METHOD 06/23/2024 4:[address] [facility] Comment:previously verified by slide MPV 11.3(H) 7.0 - 11.0 FL LAB HEMETOLOGY METHOD 06/23/2024 4:[address] [facility] NRBC 0.0 <1.0 % LAB HEMETOLOGY METHOD 06/23/2024 4:[address] [facility] NRBC Absolute 0.00 <0.10 K/mcL LAB HEMETOLOGY METHOD 06/23/2024 4:[address] [facility] Neutrophils Relative 63.5 % LAB HEMETOLOGY METHOD 06/23/2024 4:[address] [facility] Lymphocytes Relative 19.9 % LAB HEMETOLOGY METHOD 06/23/2024 4:[address] [facility] Monocytes Relative 9.6 % LAB HEMETOLOGY METHOD 06/23/2024 4:[address] [facility] Eosinophils Relative 5.1 % LAB HEMETOLOGY METHOD 06/23/2024 4:[address] [facility] Basophils Relative 0.8 % LAB HEMETOLOGY METHOD 06/23/2024 4:[address] [facility] Immature Granulocytes Relative 1.1 % LAB HEMETOLOGY METHOD 06/23/2024 4:[address] [facility] Neutrophils Absolute 4.11 1.50 - 7.00 K/mcL LAB HEMETOLOGY METHOD 06/23/2024 4:[address] [facility] Lymphocytes Absolute 1.29 1.00 - 5.00 K/mcL LAB HEMETOLOGY METHOD 06/23/2024 4:[address] [facility] Monocytes Absolute 0.62 0.20 - 1.00 K/mcL LAB HEMETOLOGY METHOD 06/23/2024 4:35 AM EDT [facility] Eosinophils Absolute 0.33 0.00 - 0.50 K/[facility] LAB HEMETOLOGY METHOD 06/23/2024 4:35 AM EDT [facility] Basophils Absolute 0.05 0.00 - 0.20 K/[facility] LAB HEMETOLOGY METHOD 06/23/2024 4:35 AM EDT [facility] Immature Granulocytes Absolute 0.07(H) 0.00 - 0.03 K/mcL LAB HEMETOLOGY METHOD 06/23/2024 4:35 AM EDT [facility] Blood Venous blood specimen / Unknown Venipuncture / Unknown 06/23/2024 4:13 AM EDT 06/23/2024 4:22 AM EDT Lyubov Trimble MD LAB BLOOD ORDERABLES Fin al Result [facility] [address] [place] [address], [place] [phone] * Magnesium (06/23/2024 4:13 AM EDT) Only the most recent of4 resultswithin the time period is included. Magnesium 2.0 1.9 - 2.6 mg/dL LAB CHEMISTRY METHOD 06/23/2024 5:12 AM EDT [facility] Blood Venous blood specimen / Unknown Venipuncture / Unknown 06/23/2024 4:13 AM EDT 06/23/2024 4:22 AM EDT Lyubov Trimble MD LAB BLOOD ORDERABLES Fin al Result [facility] [address] [place] [address], [place] [phone] * Lipase (06/23/2024 4:13 AM EDT) Only the most recent of4 resultswithin the time period is included. Lipase 39 13 - 75 unit/L LAB CHEMISTRY METHOD 06/23/2024 5:12 AM EDT [facility] Blood Venous blood specimen / Unknown Venipuncture / Unknown 06/23/2024 4:13 AM EDT 06/23/2024 4:22 AM EDT us Lyubov Trimble MD LAB BLOOD ORDERABLES Fin al Result [facility] [address] [place] [address], * (ABNORMAL) Comprehensive metabolic panel (06/23/2024 4:13 AM EDT) Only the most recent of4 resultswithin the time period is included. Pathologist [facility] Sodium 139 133 - 145 mmol/L LAB CHEMISTRY METHOD 06/23/2024 5:[address] [facility] Potassium 4.2 3.5 - 5.5 mmol/L LAB CHEMISTRY METHOD 06/23/2024 5:[address] [facility] Chloride 106 96 - 110 mmol/L LAB CHEMISTRY METHOD 06/23/2024 5:[address] [facility] CO2 30 21 - 32 mmol/L LAB CHEMISTRY METHOD 06/23/2024 5:[address] [facility] Anion Gap 3 3 - 11 LAB CHEMISTRY METHOD 06/23/2024 5:[address] [facility] Glucose 169(H) 70 - 100 mg/dL LAB CHEMISTRY METHOD 06/23/2024 5:[address] [facility] BUN 19 5 - 25 mg/dL LAB CHEMISTRY METHOD 06/23/2024 5:[address] [facility] Creatinine 1.45(H) 0.70 - 1.30 mg/dL LAB CHEMISTRY METHOD 06/23/2024 5:[address] [facility] eGFR 54(L) >=60 mL/min/1. 73m2 LAB CHEMISTRY METHOD 06/23/2024 5:[address] [facility] Comment:Calculation based on the??Chronic Kidney Disease Epidemiology Collaboration (CKD-EPI) equation refit??without adjustment for race. BUN/Creatinine Ratio 13.1 LAB CHEMISTRY METHOD 06/23/2024 5:[address] [facility] Calcium 7.7(L) 8.5 - 10.5 mg/dL LAB CHEMISTRY METHOD 06/23/2024 5:[address] [facility] AST (SGOT) 13 10 - 42 unit/L LAB CHEMISTRY METHOD 06/23/2024 5:[address] [facility] ALT (SGPT) 26 10 - 60 unit/L LAB CHEMISTRY METHOD 06/23/2024 5:[address] [facility] Alkaline Phosphatase 106 42 - 121 unit/L LAB CHEMISTRY METHOD 06/23/2024 5:[address] [facility] Total Protein 6.2 6.0 - 8.0 g/dL LAB CHEMISTRY METHOD 06/23/2024 5:[address] [facility] Albumin 3.4 3.2 - 5.0 g/dL LAB CHEMISTRY METHOD 06/23/2024 5:[address] [facility] Total Bilirubin 0.4 0.0 - 1.4 mg/dL LAB CHEMISTRY METHOD 06/23/2024 5:[address] [facility] Blood Venous blood specimen / Unknown Venipuncture / Unknown 06/23/2024 4:13 AM EDT 06/23/2024 4:22 AM EDT us Lyubov Trimble MD LAB BLOOD ORDERABLES Fin al Result [facility] [address] [place] [address], [place] [phone] * ECG 12 lead (06/23/2024 3:57 AM EDT) Only the most recent of7 resultswithin the time period is included. Ventricular Rate ECG 87 BPM GEMUSE Atrial Rate 87 BPM GEMUSE P-R Interval 206 ms GEMUSE QRS Duration 172 ms GEMUSE Q-T Interval 436 ms GEMUSE QTc 524 ms GEMUSE P Wave Bigler 60 degrees GEMUSE R Bigler 107 degrees GEMUSE T Bigler 54 degrees GEMUSE ECG Interpretation Sinus rhythm with frequent Premature ventricular complexes Right bundle branch block Abnormal ECG When compared with ECG of 10-MAY-2024 14:03, Premature ventricular complexes are now Present Confirmed by OLIMPIA HURD ([id number]) on 06/23/2024 4:54:04 PM GEMUSE 06/23/2024 3:57 AM EDT 06/23/2024 4:54 PM EDT us Lyubov Trimble MD ECG ORDERABLES Final Re sult Performing Organization Address City/[facility]/ZIP Co de Phone Number GEMUSE * B-type natriuretic peptide (05/05/2024 12:55 PM EST) Only the most recent of2 resultswithin the time period is included. Pathologist [facility] BNP 56 <=100 pcg/mL LAB CHEMISTRY METHOD 05/05/2024 2:00 PM EST [facility] Blood Venous blood specimen / Unknown Venipuncture / Unknown 05/05/2024 12:55 PM EST 05/05/2024 1:18 PM EST us Pool BURDICK LAB BLOOD ORDERABLES Raegan l Result [facility] [address] [place] [address], [place] [phone] * XR Elbow 3+ Views Right (04/08/2024 12:49 PM EST) Anatomical Region Laterality Modality Upper Extremities, Elbow Right Radiogr aphic Imaging 04/08/2024 1:00 PM EST Impressions 04/08/2024 1:02 PM EST Impression: 1. Joint effusion, raising the possibility of occult radial head fracture. 2. No acute fracture identified. Telerad HEAVENLY ([id number]) -------- FINAL REPORT -------- Dictated By: Bruna Flores Dictated Date: 04/08/2024 13:00 ET Assigned Physician: Bruna Flores Reviewed and Electronically Signed By: Bruna Flores Signed Date: 04/08/2024 13:02 ET Workstation ID: [id number] Transcribed By: Self Edit Transcribed Date: 04/08/2024 13:00 ET Narrative 04/08/2024 1:02 PM EST History: Right elbow pain after fall. Findings: AP, oblique and lateral views of the right elbow. The anterior and posterior fat pads are displaced, consistent with a joint effusion. The radial head and neck appear intact. No acute fracture or dislocation is seen. There is a tiny olecranon spur. Procedure Note Bruna Flores MD - 04/08/2024 History: Right elbow pain after fall. Findings: AP, oblique and lateral views of the right elbow. The anterior and posterior fat pads are displaced, consistent with a jointeffusion. The radial head and neck appear intact. No acute fracture ordislocation is seen. There is a tiny olecranon spur. IMPRESSION: Impression: 1. Joint effusion, raising the possibility of occult radial headfracture. 2. No acute fracture identified. Telebarrie BURDICK ([id number]) -------- FINAL REPORT -------- Dictated By: Bruna Flores Dictated Date: 04/08/2024 13:00 ET Assigned Physician: Bruna Flores Reviewed and Electronically Signed By: Bruna Flores Signed Date: 04/08/2024 13:02 ET Workstation ID: [id number] Transcribed By: Self Edit Transcribed Date: 04/08/2024 13:00 ET Wally Amaral MD IMG XR PROCEDURES Final Res ult * XR Humerus 2+ Views Right (04/08/2024 12:49 PM EST) Anatomical Region Laterality Modality Upper Extremities, Humerus Right Radio graphic Imaging 04/08/2024 1:03 PM EST Impressions 04/08/2024 1:04 PM EST Impression: No evidence of humerus fracture is seen. Telerad PA ([id number]) -------- FINAL REPORT -------- Dictated By: Bruna Flores Dictated Date: 04/08/2024 13:03 ET Assigned Physician: Bruna Flores Reviewed and Electronically Signed By: Bruna Flores Signed Date: 04/08/2024 13:04 ET Workstation ID: [id number] Transcribed By: Self Edit Transcribed Date: 04/08/2024 13:03 ET Narrative 04/08/2024 1:04 PM EST History: Right arm pain after fall. Findings: AP and lateral views of the right humerus. No acute fracture is seen. Note that evaluation of the shoulder and elbow is incomplete on these images tailored for evaluation of the humerus. The overlying soft tissues appear unremarkable. Procedure Note Bruna Flores MD - 04/08/2024 History: Right arm pain after fall. Findings: AP and lateral views of the right humerus. No acute fracture is seen. Notethat evaluation of the shoulder and elbow is incomplete on these imagestailored for evaluation of the humerus. The overlying soft tissues appear unremarkable. IMPRESSION: Impression: No evidence of humerus fracture is seen. Telerad PA ([id number]) -------- FINAL REPORT -------- Dictated By: Bruna Flores Dictated Date: 04/08/2024 13:03 ET Assigned Physician: Bruna Flores Reviewed and Electronically Signed By: Bruna Flores Signed Date: 04/08/2024 13:04 ET Workstation ID: [id number] Transcribed By: Self Edit Transcribed Date: 04/08/2024 13:03 ET Wally Amaral MD IMG XR PROCEDURES Final Res ult * APTT (04/08/2024 11:45 AM EST) aPTT 29.6 24.1 - 39.3 sec LAB COAGULATION METHOD 04/08/2024 12:29 PM EST [facility] Blood Venous blood specimen / Unknown Venipuncture / Unknown 04/08/2024 11:45 AM EST 04/08/2024 12:11 PM EST us Bee BURDICK LAB BLOOD ORDERABLES Fin al Result [facility] [address] [place] [address], * CT Cervical Spine wo Contrast (04/08/2024 11:20 AM EST) Anatomical Region Laterality Modality Spine, C-spine Computed Tomogra phy 04/08/2024 11:3 5 AM EST Impressions 04/08/2024 11:40 AM EST Impression: 1. No evidence of cervical spine fracture or traumatic subluxation. 2. Probable DISH. 3. Bilateral bony neural foraminal narrowing at C3-4 due to degenerative spurring. No significant change. Telerad HEAVENLY ([id number]) -------- FINAL REPORT -------- Dictated By: Bruna Flores Dictated Date: 04/08/2024 11:35 ET Assigned Physician: Bruna Flores Reviewed and Electronically Signed By: Bruna Flores Signed Date: 04/08/2024 11:40 ET Workstation ID: [id number] Transcribed By: Self Edit Transcribed Date: 04/08/2024 11:35 ET Narrative 04/08/2024 11:40 AM EST History: Neck pain after fall (syncope). Comparison: 09/07/21 Technique: Helical volumetric imaging of the cervical spine was performed. DLP: 1175.57 mGy/cm Finarioer Iterative reconstruction technique Findings: Vertebral alignment is normal. There is thick, flowing hyperostosis along the anterior aspect of the spine, with prominent anterior radiolucent disc extensions, suggesting diffuse idiopathic skeletal hyperostosis (DISH). There has been no significant change. Incidental nuchal ligament calcification is seen. The vertebral bodies maintain normal height and the disc spaces are preserved. The apophyseal joints are intact, with scattered arthritic changes again seen. The craniocervical articulations are well-maintained. The odontoid process is intact. No abnormal widening of the predental distance is seen. Bilateral bony neural foraminal narrowing is seen at C3-4 due to uncovertebral hypertrophy. Narrowing of the AP diameter of the central spinal canal is also seen at C3-4 due to posterior vertebral body spurring. This is without significant change. The prevertebral soft tissues appear within normal limits. A cardiac pacemaker and wires are partially imaged. Procedure Note Bruna Flores MD - 04/08/2024 History: Neck pain after fall (syncope). Comparison: 09/07/21 Technique: Helical volumetric imaging of the cervical spine wasperformed. DLP: 1175.57 mGy/cm Finarioer Iterative reconstruction technique Findings: Vertebral alignment is normal. There is thick, flowing hyperostosis alongthe anterior aspect of the spine, with prominent anterior radiolucent discextensions, suggesting diffuse idiopathic skeletal hyperostosis (DISH).There has been no significant change. Incidental nuchal ligamentcalcification is seen. The vertebral bodies maintain normal height and the disc spaces arepreserved. The apophyseal joints are intact, with scattered arthriticchanges again seen. The craniocervical articulations are well-maintained. The odontoid processis intact. No abnormal widening of the predental distance is seen. Bilateral bony neural foraminal narrowing is seen at C3-4 due touncovertebral hypertrophy. Narrowing of the AP diameter of the central spinal canal is also seen atC3-4 due to posterior vertebral body spurring. This is without significantchange. The prevertebral soft tissues appear within normal limits. A cardiac pacemaker and wires are partially imaged. IMPRESSION: Impression: 1. No evidence of cervical spine fracture or traumatic subluxation. 2. Probable DISH. 3. Bilateral bony neural foraminal narrowing at C3-4 due to degenerativespurring. No significant change. [place] ([id number]) -------- FINAL REPORT -------- Dictated By: Bruna Flores Dictated Date: 04/08/2024 11:35 ET Assigned Physician: Bruna Flores Reviewed and Electronically Signed By: Bruna Flores Signed Date: 04/08/2024 11:40 ET Workstation ID: [id number] Transcribed By: Self Edit Transcribed Date: 04/08/2024 11:35 ET Bee [facility] CT PROCEDURES Final Result * CT Head wo Contrast (04/08/2024 11:20 AM EST) Anatomical Region Laterality Modality Head and Neck Computed Tomogra phy 04/08/2024 11:2 9 AM EST Impressions 04/08/2024 11:35 AM EST Impression: 1. No acute hemorrhage or intracranial mass effect. 2. Extensive, nonspecific deep white matter changes compatible with chronic microvascular ischemia in a patient of this age. No significant change. Telebarrie BURDICK ([id number]) -------- FINAL REPORT -------- Dictated By: Bruna Flores Dictated Date: 04/08/2024 11:29 ET Assigned Physician: Bruna Flores Reviewed and Electronically Signed By: Bruna Flores Signed Date: 04/08/2024 11:35 ET Workstation ID: [id number] Transcribed By: Self Edit Transcribed Date: 04/08/2024 11:29 ET Narrative 04/08/2024 11:35 AM EST History: Brain trauma (syncope, fall). Comparison: 03/10/22 Technique: Contiguous axial images were obtained at 2.5 mm intervals through the posterior fossa and at 5 mm intervals through the remainder of the brain without intravenous contrast. DLP: 1204.10 mGy/cm ScratchJr Iterative reconstruction technique Findings: Mild to moderate generalized cerebral volume loss is probably within normal limits for the stated age. Extensive patchy deep white matter hypodensity is again seen bilaterally, unaccompanied by mass effect or hemorrhage and without significant change. 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 No abnormal intra- or extraaxial masses or fluid collections are seen. There is no evidence of acute intracranial hemorrhage. A small mucous retention cyst or polyp is seen in the left maxillary sinus. The frontal sinuses have not developed, an anatomic variant. The mastoids are poorly pneumatized. No calvarial fracture is seen. Procedure Note Bruna Flores MD - 04/08/2024 History: Brain trauma (syncope, fall). Comparison: 03/10/22 Technique: Contiguous axial images were obtained at 2.5 mm intervalsthrough the posterior fossa and at 5 mm intervals through the remainder ofthe brain without intravenous contrast. DLP: 1204.10 mGy/cm ScratchJr Iterative reconstruction technique Findings: Mild to moderate generalized cerebral volume loss is probably withinnormal limits for the stated age. Extensive patchy deep white matterhypodensity is again seen bilaterally, unaccompanied by mass effect orhemorrhage and without significant change. A 10 mm poorly defined area ofincreased attenuation in the left frontal periventricular white matter isunchanged dating back to the initial, 2006 exam at this institution and islikely secondary to a chronic occult vascular malformation, requiring nospecific follow-up. No abnormal intra- or extraaxial masses or fluid collections are seen.There is no evidence of acute intracranial hemorrhage. A small mucous retention cyst or polyp is seen in the left maxillarysinus. The frontal sinuses have not developed, an anatomic variant. Themastoids are poorly pneumatized. No calvarial fracture is seen. IMPRESSION: Impression: 1. No acute hemorrhage or intracranial mass effect. 2. Extensive, nonspecific deep white matter changes compatible withchronic microvascular ischemia in a patient of this age. No significant change. zulilybarrie BURDICK ([id number]) -------- FINAL REPORT -------- Dictated By: Bruna Flores Dictated Date: 04/08/2024 11:29 ET Assigned Physician: Bruna Flores Reviewed and Electronically Signed By: Bruna Flores Signed Date: 04/08/2024 11:35 ET Workstation ID: [id number] Transcribed By: Self Edit Transcribed Date: 04/08/2024 11:29 ET us Bee BURDICK IMG CT PROCEDURES Final Result * ECG-Outside (04/08/2024) us Provider Onbase ECG ORDERABLES Final Result * (ABNORMAL) Hemoglobin A1c (02/12/2024 6:11 AM EST) Hemoglobin A1C 6.9(H) <6.5 % LAB CHEMISTRY METHOD 02/12/2024 2:17 PM EST [facility] Mean Bld Glu Estim. 151 mg/dL LAB CHEMISTRY METHOD 02/12/2024 2:17 PM EST [facility] Blood Venous blood specimen / Unknown Venipuncture / Unknown 02/12/2024 6:11 AM EST 02/12/2024 9:15 AM EST Erasot Henry MD LAB BLOOD ORDERABLES Final Resul t [facility] [address] [place] [address], from Last 3 Months or Most Recently Relevant to Health Maintenance Insurance [facility] [employer] MEDICARE Member Subscriber Plan / Payer (Ef fective 2013-Present) Name:Joaquín Barrientos Relation to Subscriber:Self Name:Joaquín Barrientos Payer ID:[id number] Group ID:[id number] Type:Not on file Address: [facility] [place] [address] Care Teams Operations Specialists Relationship Specialty Start Date End Date Amari Vyas DO [address] [place] [phone] PCP - General Internal Medicine 8/11/21
--- OUTSIDE RECORDS SUMMARY | 2024-07-01 15:15 | XMS_ITS ---
Author Name [facility] Organization Unknown Encounters Encounter Type Encounter Reason Primary Diagnosis Location Date Ambulatory [facility] 04/12/2024 Emergency Chest pain, unspecified Chest pain, unspecified [facility] 02/24/2023 Observation Other chest pain Other chest pain [facility] 01/21/2023 Emergency Chest pain, unspecified [facility] 03/13/2021 Care Team Organization Name Specialty Phone Email Start Date End Da te [facility] 04/23/2023 [facility] 02/25/2023 [facility] 02/24/2023 02/24/2023 [facility] 01/21/20232022 [facility],Provider Primary Care 03/14/20212024 [facility]ER SYSTEM Primary Care 03/13/20212020 [facility] 03/14/201903/14 08/05/2018 08/05/2018
--- OUTSIDE RECORDS SUMMARY | 2024-07-01 15:15 | XMS_ITS | Encounter Summary ---
Author Organization [facility] Address [address] [place] [address] Care Team Providers Care Hot Stamp Operator Name Role Phone Amari Vyas DO Primary Care Provider [phone] Encounter Details Date Type Department Care Team (Late st Contact Info) Description 02/27/2024 Lab Requisition [facility] - Main Lab [address] [place] [address] Erasto Henry MD [address], [phone] Essential (primary) hypertension Social History Tobacco Use Types Packs/Day Years [...] Orientation Straight 02/11/2024 7: 04 AM EST documented as of this encounter Plan of Treatment Not on file documented as of this encounter Visit Diagnoses Diagnosis Essential (primary) hypertension Unspecified essential hypertension documented in this encounter Care Teams Hot Stamp Operator Relationship Specialty Start Date End Date Amari Vyas DO [address] [place] [phone] PCP - General Internal Medicine 11/11/20 documented as of this encounter
--- OUTSIDE RECORDS SUMMARY | 2024-07-01 15:15 | XMS_ITS | Encounter Summary ---
Author Organization [employer] Address [address] [place] [address] 7 [place] [address] Care Team Providers Care Rubber Tubing Backer Name Role Phone Lauren Whittaker MD Primary Care Pro vider Reason for Visit * Reason Onset Date Comments Med Refill 04/10/2024 Encounter Details Date Type Department Care Team ([facility] st Contact Info) Description 04/10/2024 Telephone [facility] [address] [place] [address] Lauren Whittaker MD [address] [place] [address] Med Refill Social History Tobacco Use Types Packs/Day Years [...] Answer Date Recorded Patient Health Questionnaire-9 Score 0 11/15/2023 Patient Health Questionnaire-9 Score 0 11/15/2023 Last PHQ-9: Questionnaire Data Not on file 0 11/15/2023 Housing Stability Answer Date Recorded What is [...] Answer Date Recorded Patient Health Questionnaire-2 Score 0 11/15/2023 Internet Access Answer Date Recorded Internet Access Q1 No 12/04/2023 Internet Access Q2 Not on file 12/04/2023 Sex and Gender Information Value Date Recorded Sex Assigned at Male 08/23/2023 2:31 PM EDT Legal Sex Male 2:27 PM EDT Gender Identity Male 08/23/2023 2:31 PM EDT Sexual Orientation Straight 11/15/2023 8: 40 AM EDT documented as of this encounter Miscellaneous Notes * Telephone Encounter - Donna Tracey LPN - 04/10/2024 8:44 AM EST Medications should have refills. * Telephone Encounter - Jagdish Altman - 04/10/2024 8:35 AM EST TC from pt requesting medication refill. Medications needing refill: traZODone (Desyrel) 150 MG tablet hydrOXYzine HCl (Atarax) 50 MG tablet To be sent to: [id number] - [address] documented in this encounter Plan of Treatment Upcoming Encounters Date Type Department Care Team (Late st Contact Info) Description 07/23/2024 10:30 AM EDT Office Visit [facility] [address] [place] [address] Coral Avendano, OD [address] [place] [address] 08/22/2024 2:15 PM EDT Office Visit [facility] [address] [place], [place] [phone] Lauren Whittaker MD [address] [place] [phone] documented as of this encounter Visit Diagnoses Not on filedocumented in this encounter Additional Health Concerns Assessment Noted Time PHQ-9 Depression Total Score: 0 11/15/19 24 9:31 AM EDT documented as of this encounter Care Teams Rubber Tubing Backer Relationship Specialty Start Date End Date Lauren Whittaker MD [address] [place] [phone] PCP - General Internal Medicine 11/15/23 [facility] 03/08/24 documented as of this encounter
--- OUTSIDE RECORDS SUMMARY | 2024-07-01 15:15 | XMS_ITS | Encounter Summary ---
Author Organization [employer] Address [address] [facility] 7[address] [place] [address] Care Team Providers Care Manager Epic Name Role Phone Lauren Whittaker MD Primary Care Pro vider Reason for Visit * Reason Comments Med Refill Encounter Details Date Type Department Care Team ([facility] st Contact Info) Description 06/27/2024 Refill [facility] [address] [place], [place] [phone] Gretel Sosa, ANP [address] [place] [address] Social History Tobacco Use Types Packs/Day Years [...] AM EDT documented as of this encounter Plan of Treatment Upcoming Encounters Date Type Department Care Team (Late st Contact Info) Description 07/23/2024 10:30 AM EDT Office Visit [facility] [address] [place] [address] Croal Avendano, OD [address] [place] [address] 08/22/2024 2:15 PM EDT Office Visit [facility] [address] [place] [address] Lauren Whittaker MD [address] [place] [phone] documented as of this encounter Visit Diagnoses Not on filedocumented in this encounter Additional Health Concerns Assessment Noted Time PHQ-9 Depression Total Score: 12 025 12:41 PM EST documented as of this encounter Care Teams Manager Epic Relationship Specialty Start Date End Date Lauren Whittaker MD [address] [place] [phone] PCP - General Internal Medicine 11/15/23 [facility] 03/08/24 documented as of this encounter
--- OUTSIDE RECORDS SUMMARY | 2024-07-01 15:15 | XMS_ITS | Continuity of Care Document ---
Author Organization [facility] Address [address] [place] [phone] Phone Care Team Providers Care Extended Insurance Clerk Name Role Phone Camryn Monroe MD Unavailable Unavailable Advance Directives Directive Yes / No Effective Date File Name No Information Encounters Encounter Description Practice Location Reason(s) For Visit Diagnoses Date Provider [facility], [address] [place] [address], [id number], [place] tel:[phone] [facility] No Information [address] [place] [address], [id number], [place]. tel:[phone] Family History Family Member Type Diagnosis Age [...]
--- OUTSIDE RECORDS SUMMARY | 2024-07-01 15:15 | XMS_ITS | Encounter Summary ---
Author Organization [employer] Address [address] [facility] [address] [place] [address] Care Team Providers Care Marriage And Family Therapist Name Role Phone Lauren Whittaker MD Primary Care Pro vider Reason for Referral * Imaging (Routine) - Authorized Specialty Diagnoses / Procedures Referred By Contac t Referred To Contact Radiology Diagnoses Hematuria, unspecified type Procedures US RENAL BI Gaviota Isaacs MD [address] [place] [address] Phone: tel: fax: [address] Phone: tel: fax: Referral ID Status Reason Start Date Expiration Date V isits Requested Visits Authorized [id number] Authorized 07/01/2024 07/01/2025 1 1 Reason for Visit * Reason Comments Abdominal Pain Encounter Details Date Type Department Care Team (Late st Contact Info) Description 07/01/2024 1:40 PM EDT Office Visit [facility] [address] [place], [place] [phone] Rib pain on right side (Primary Dx); Hematuria, unspecified type Social History Tobacco Use Types Packs/Day Years [...] AM EDT documented as of this encounter Last Filed Vital Signs Vital Sign Reading Time Taken Comments Blood Pressure 130/75 07/01/2024 12:50 PM EDT Pulse 78 07/01/2024 12:50 PM EDT Temperature 36.8 ??C (98.2 ??F) 07/01/2024 12:50 PM E DT Respiratory Rate 18 07/01/2024 12:50 PM EDT Oxygen Saturation 97% 07/01/2024 12:50 PM EDT Inhaled Oxygen Concentration - - Weight 116 kg (256 lb) 07/01/2024 12:50 PM EDT Height - - Body Mass Index 37.8 06/13/2024 10:40 AM EDT documented in this encounter Miscellaneous Notes * Assessment & Plan Note - Gaviota Isaacs MD - 07/01/2024 1:26 PM EDT Associated Problem(s): Rib pain on right side Seems to be adrenal in origin although with the absence of hematuria today and a normal CT scan, itis less likely unless the stone is already in the bladder. I will order renal ultrasound and restart Flomax nightly. Rx Toradol injection today, he tolerated in the past. Follow-up with PCP after renal ultrasound or earlier as needed * Assessment & Plan Note - Gaviota Isaacs MD - 07/01/2024 1:25 PM EDT Associated Problem(s): Hematuria On previous UA at the emergency room, will order renal ultrasound to rule out kidney or bladder stones. Restart Flomax nightly and take tramadol as needed Increase p.o. water intake and follow-up with PCP documented in this encounter Plan of Treatment Upcoming Encounters Date Type Department Care Team (Late st Contact Info) Description 07/23/2024 10:30 AM EDT Office Visit [facility] [address] [place] [address] Coral Avendano, OD [address] [place] [address] 08/22/2024 2:15 PM EDT Office Visit [facility] [address] [place] [address] Lauren Whittaker MD [address] [place] [address] Scheduled Orders Name Type Priority Associated Diagnoses Orde r Schedule US RENAL BI Imaging Routine Hematuria, unspecified type Expected: 07/01/2024 (Approximate), Expires: 07/01/2025 XR Ribs 2 Views Right Imaging Routine Rib pain on right side Expected: 07/01/2024 (Approximate), Expires: 07/01/2025 documented as of this encounter Visit Diagnoses Diagnosis Rib pain on right side- Primary Hematuria, unspecified type documented in this encounter Administered Medications Inactive Administered Medications - up to 3 most recent administrations Medication Order MAR Action Action Date Dose Rate Site ketorolac (Toradol) injection 30 mg 30 mg, Intramuscular, Once, On Mon07/01/24 at 1330, For 1 doseIndications:Rib pain on right side Given 07/01/2024 1:45 PM EDT 30 mg Righ t Deltoid documented in this encounter Additional Health Concerns Assessment Noted Time PHQ-9 Depression Total Score: 12 025 12:41 PM EST documented as of this encounter Care Teams Marriage And Family Therapist Relationship Specialty Start Date End Date Lauren Whittaker MD [address] [place] [phone] PCP - General Internal Medicine 11/15/23 [facility] 03/08/24 documented as of this encounter
--- OUTSIDE RECORDS SUMMARY | 2024-07-01 15:15 | XMS_ITS | Encounter Summary ---
Author Organization [facility] Address [address] [place] [address] Care Team Providers Care Burnisher Name Role Phone JazminAmari virk Primary Care Provider [phone] Encounter Details Date Type Department Care Team (Late st Contact Info) Description 02/12/2024 Lab Requisition [facility] - Main Lab [address] [facility] [place] [address] Erasto Henry MD 38 [facility] [address] [place], [address] Hypothyroidism, unspecified; Paroxysmal atrial fibrillation (CMS/HCC) Social History Tobacco Use Types Packs/Day Years [...] on file documented as of this encounter Procedures Procedure Name Priority Date/Time Associated Diagnosis Comments COMPLETE BLOOD COUNT Routine 02/12/2024 6:11 AM EST Hypothyroidism, unspecified Paroxysmal atrial fibrillation (CMS/HCC) THYROID STIMULATING HORMONE Routine 02/12/2024 6:11 AM EST Hypothyroidism, unspecified Paroxysmal atrial fibrillation (CMS/HCC) HEMOGLOBIN A1C Routine 02/12/2024 6:11 AM EST Hypothyroidism, unspecified Paroxysmal atrial fibrillation (CMS/HCC) COMPREHENSIVE METABOLIC PANEL Routine 02/12/2024 6:11 AM EST Hypothyroidism, unspecified Paroxysmal atrial fibrillation (CMS/HCC) documented in this encounter Results * (ABNORMAL) Hemoglobin A1c (02/12/2024 6:11 AM EST) Hemoglobin A1C 6.9(H) <6.5 % LAB CHEMISTRY METHOD 02/12/2024 2:17 PM EST [facility] Mean Bld Glu Estim. 151 mg/dL LAB CHEMISTRY METHOD 02/12/2024 2:17 PM EST [facility] Blood Venous blood specimen / Unknown Venipuncture / Unknown 02/12/2024 6:11 AM EST 02/12/2024 9:15 AM EST Erasto Henry MD LAB BLOOD ORDERABLES Final Resul t Performing Organization Address City/[facility]/ZIP Co de Phone Number [facility] [address] [place] [address], * (ABNORMAL) Thyroid stimulating hormone (02/12/2024 6:11 AM EST) TSH 4.56(H) 0.40 - 4.00 mcIU/mL LAB CHEMISTRY METHOD 02/12/2024 11:52 AM EST [facility] Blood Venous blood specimen / Unknown Venipuncture / Unknown 02/12/2024 6:11 AM EST 02/12/2024 9:15 AM EST us Erasto Henry MD LAB BLOOD ORDERABLES Final Resul t [facility] [address] [place] [address], * (ABNORMAL) Comprehensive metabolic panel (02/12/2024 6:11 AM EST) Sodium 141 133 - 145 mmol/L LAB CHEMISTRY METHOD 02/12/2024 11:07 AM [facility] Potassium 3.7 3.5 - 5.5 mmol/L LAB CHEMISTRY METHOD 02/12/2024 11:07 AM [facility] Chloride 107 96 - 110 mmol/L LAB CHEMISTRY METHOD 02/12/2024 11:07 AM [facility] CO2 25 21 - 32 mmol/L LAB CHEMISTRY METHOD 02/12/2024 11:07 AM [facility] Anion Gap 9 3 - 11 LAB CHEMISTRY METHOD 02/12/2024 11:07 AM [facility] Glucose 99 70 - 100 mg/dL LAB CHEMISTRY METHOD 02/12/2024 11:07 AM [facility] BUN 17 5 - 25 mg/dL LAB CHEMISTRY METHOD 02/12/2024 11:07 AM [facility] Creatinine 1.20 0.70 - 1.30 mg/dL LAB CHEMISTRY METHOD 02/12/2024 11:07 AM [facility] eGFR 68 >=60 mL/min/1. 73m2 LAB CHEMISTRY METHOD 02/12/2024 11:07 AM [facility] Comment:Calculation based on the??Chronic Kidney Disease Epidemiology Collaboration (CKD-EPI) equation refit??without adjustment for race. BUN/Creatinine Ratio 14.2 LAB CHEMISTRY METHOD 02/12/2024 11:07 AM [facility] Calcium 8.1(L) 8.5 - 10.5 mg/dL LAB CHEMISTRY METHOD 02/12/2024 11:07 AM [facility] AST (SGOT) 14 10 - 42 unit/L LAB CHEMISTRY METHOD 02/12/2024 11:07 AM [facility] ALT (SGPT) 19 10 - 60 unit/L LAB CHEMISTRY METHOD 02/12/2024 11:07 AM [facility] Alkaline Phosphatase 78 42 - 121 unit/L LAB CHEMISTRY METHOD 02/12/2024 11:07 AM [facility] Total Protein 5.9(L) 6.0 - 8.0 g/dL LAB CHEMISTRY METHOD 02/12/2024 11:07 AM [facility] Albumin 3.3 3.2 - 5.0 g/dL LAB CHEMISTRY METHOD 02/12/2024 11:07 AM [facility] Total Bilirubin 0.6 0.0 - 1.4 mg/dL LAB CHEMISTRY METHOD 02/12/2024 11:07 AM [facility] Blood Venous blood specimen / Unknown Venipuncture / Unknown 02/12/2024 6:11 AM EST 02/12/2024 9:15 AM EST us Erasto Henry MD LAB BLOOD ORDERABLES Final Resul t [facility] [address] [place] [address], * (ABNORMAL) Complete blood count (02/12/2024 6:11 AM EST) WBC 5.1 4.8 - 10.8 K/[facility] LAB HEMETOLOGY METHOD 02/12/2024 11:24 AM [facility] RBC 4.10(L) 4.50 - 5.50 M/[facility] LAB HEMETOLOGY METHOD 02/12/2024 11:24 AM [facility] Hemoglobin 11.9(L) 13.5 - 17.5 g/dL LAB HEMETOLOGY METHOD 02/12/2024 11:24 AM [facility] Hematocrit 36.6(L) 42.0 - 54.0 % LAB HEMETOLOGY METHOD 02/12/2024 11:24 AM EST [facility] MCV 88.4 79.0 - 98.0 FL LAB HEMETOLOGY METHOD 02/12/2024 11:24 AM EST [facility] MCH 28.7 27.0 - 32.0 pcg LAB HEMETOLOGY METHOD 02/12/2024 11:24 AM [facility] MCHC 32.5 32.0 - 37.0 g/dL LAB HEMETOLOGY METHOD 02/12/2024 11:24 AM EST [facility] RDW 12.9 11.0 - 15.0 % LAB HEMETOLOGY METHOD 02/12/2024 11:24 AM [facility] Platelets 85(L) 130 - 400 K/mcL LAB HEMETOLOGY METHOD 02/12/2024 11:24 AM [facility] Comment:reviewed by slide MPV 12.1(H) 7.0 - 11.0 FL LAB HEMETOLOGY METHOD 02/12/2024 11:24 AM [facility] NRBC 0.0 <1.0 % LAB HEMETOLOGY METHOD 02/12/2024 11:24 AM [facility] NRBC Absolute 0.00 <0.10 K/mcL LAB HEMETOLOGY METHOD 02/12/2024 11:24 AM [facility] Blood Venous blood specimen / Unknown Venipuncture / Unknown 02/12/2024 6:11 AM EST 02/12/2024 9:15 AM EST us Erasto Henry MD LAB BLOOD ORDERABLES Final Resul t [facility] [address] [place] [address], documented in this encounter Visit Diagnoses Diagnosis Hypothyroidism, unspecified Paroxysmal atrial fibrillation (CMS/HCC) Atrial fibrillation documented in this encounter Care Teams Burnisher Relationship Specialty Start Date End Date Amari Vyas DO [address] [place] [phone] PCP - General Internal Medicine 11/11/20 documented as of this encounter
--- OUTSIDE RECORDS SUMMARY | 2024-07-01 15:15 | XMS_ITS | Encounter Summary ---
Author Organization [facility] Address [address] [place] [address] Care Team Providers Care Second Hand Name Role Phone JazminAmari virk Primary Care Provider [phone] Encounter Details Date Type Department Care Team (Late st Contact Info) Description 02/20/2024 Lab Requisition [facility] - Main Lab [address] [facility] [place] [address] Erasto Henry MD 38 [facility] [address] [place], [address] Essential (primary) hypertension Social History Tobacco [...] Associated Diagnosis Comments COMPLETE BLOOD COUNT Routine 02/21/2024 6:49 AM EST Essential (primary) hypertension BASIC METABOLIC PANEL Routine 02/21/2024 6:49 AM EST Essential (primary) hypertension documented in this encounter Results * (ABNORMAL) Basic metabolic panel (02/21/2024 6:49 AM EST) Sodium 142 133 - 145 mmol/L LAB CHEMISTRY METHOD 02/21/2024 9:59 AM [facility] Potassium 4.3 3.5 - 5.5 mmol/L LAB CHEMISTRY METHOD 02/21/2024 9:59 AM [facility] Chloride 107 96 - 110 mmol/L LAB CHEMISTRY METHOD 02/21/2024 9:59 AM [facility] CO2 30 21 - 32 mmol/L LAB CHEMISTRY METHOD 02/21/2024 9:59 AM [facility] Anion Gap 5 3 - 11 LAB CHEMISTRY METHOD 02/21/2024 9:59 AM [facility] Glucose 136(H) 70 - 100 mg/dL LAB CHEMISTRY METHOD 02/21/2024 9:59 AM [facility] BUN 14 5 - 25 mg/dL LAB CHEMISTRY METHOD 02/21/2024 9:59 AM [facility] Creatinine 1.15 0.70 - 1.30 mg/dL LAB CHEMISTRY METHOD 02/21/2024 9:59 AM [facility] eGFR 72 >=60 mL/min/1. 73m2 LAB CHEMISTRY METHOD 02/21/2024 9:59 AM [facility] Comment:Calculation based on the??Chronic Kidney Disease Epidemiology Collaboration (CKD-EPI) equation refit??without adjustment for race. BUN/Creatinine Ratio 12.2 LAB CHEMISTRY METHOD 02/21/2024 9:59 AM [facility] Calcium 8.4(L) 8.5 - 10.5 mg/dL LAB CHEMISTRY METHOD 02/21/2024 9:59 AM [facility] Blood Venous blood specimen / Unknown Venipuncture / Unknown 02/21/2024 6:49 AM EST 02/21/2024 8:51 AM EST us Erasto Henry MD LAB BLOOD ORDERABLES Final Resul t [facility] [address] [place] [address], * (ABNORMAL) Complete blood count (02/21/2024 6:49 AM EST) WBC 5.5 4.8 - 10.8 K/mcL LAB HEMETOLOGY METHOD 02/21/2024 9:40 AM EST [facility] RBC 4.20(L) 4.50 - 5.50 M/mcL LAB HEMETOLOGY METHOD 02/21/2024 9:40 AM [facility] Hemoglobin 12.1(L) 13.5 - 17.5 g/dL LAB HEMETOLOGY METHOD 02/21/2024 9:40 AM [facility] Hematocrit 37.0(L) 42.0 - 54.0 % LAB HEMETOLOGY METHOD 02/21/2024 9:40 AM EST [facility] MCV 87.9 79.0 - 98.0 FL LAB HEMETOLOGY METHOD 02/21/2024 9:40 AM [facility] MCH 28.7 27.0 - 32.0 pcg LAB HEMETOLOGY METHOD 02/21/2024 9:40 AM [facility] MCHC 32.7 32.0 - 37.0 g/dL LAB HEMETOLOGY METHOD 02/21/2024 9:40 AM [facility] RDW 12.7 11.0 - 15.0 % LAB HEMETOLOGY METHOD 02/21/2024 9:40 AM [facility] Platelets 84(L) 130 - 400 K/mcL LAB HEMETOLOGY METHOD 02/21/2024 9:40 AM [facility] Comment:previously verified by slide MPV 11.9(H) 7.0 - 11.0 FL LAB HEMETOLOGY METHOD 02/21/2024 9:40 AM EST [facility] NRBC 0.0 <1.0 % LAB HEMETOLOGY METHOD 02/21/2024 9:40 AM EST [facility] NRBC Absolute 0.00 <0.10 K/mcL LAB HEMETOLOGY METHOD 02/21/2024 9:40 AM EST [facility] Blood Venous blood specimen / Unknown Venipuncture / Unknown 02/21/2024 6:49 AM EST 02/21/2024 8:51 AM EST us Erasto Henry MD LAB BLOOD ORDERABLES Final Resul t [facility] [address] [place] [address], documented in this encounter Visit Diagnoses Diagnosis Essential (primary) hypertension Unspecified essential hypertension documented in this encounter Care Teams Second Hand Relationship Specialty Start Date End Date Amari Vyas DO [address] [place] [phone] PCP - General Internal Medicine 11/11/20 documented as of this encounter
--- OUTSIDE RECORDS SUMMARY | 2024-07-01 15:15 | XMS_ITS | Encounter Summary ---
Author Organization [employer] Address [address] [facility] [address] [place] [address] Care Team Providers Care Quill Fixer Name Role Phone Lauren Whittaker MD Primary Care Pro vider Encounter Details Date Type Department Care Team ([facility] Contact Info) Description 06/03/[address] [address] Provider, Not In System Social History Tobacco Use Types Packs/Day Years [...] encounter Miscellaneous Notes * Telephone Encounter - Sera Price - 06/03/2024 3:44 PM EST This is not our patient, closing * Telephone Encounter - Ingris Caba - 06/03/2024 2:11 PM EST MARGIE, letting us know they sent this patient to [facility] for chest pains. (He does not appear to be one of ours) documented in this encounter Plan of Treatment Upcoming Encounters Date Type Department Care Team (Late st Contact Info) Description 07/23/2024 10:30 AM EDT Office Visit [facility] [address] [place] [address] Coral Avendano, OD [address] [place] [address] 08/22/2024 2:15 PM EDT Office Visit [facility] [address] [place] [address] Lauren Whittaker MD [address] [place] [address] documented as of this encounter Visit Diagnoses Not on filedocumented in this encounter Additional Health Concerns Assessment Noted Time PHQ-9 Depression Total Score: 12 025 12:41 PM EST documented as of this encounter Care Teams Quill Fixer Relationship Specialty Start Date End Date Lauren Whittaker MD [address] [place] [phone] PCP - General Internal Medicine 11/15/23 [facility] 03/08/24 documented as of this encounter
--- OUTSIDE RECORDS SUMMARY | 2024-07-01 15:15 | XMS_ITS | Encounter Summary ---
Author Organization [employer] Address [address] [place] [address] 7 [place] [address] Care Team Providers Care Sales Route Driver Helper Name Role Phone Lauren Whittaker MD Primary Care Pro vider Encounter Details Date Type Department Care Team ([facility] st Contact Info) Description 03/20/2024 Telephone [facility] [address] [place], [place] [phone] Lauren Whittaker MD [address] [place] [address] Social History Tobacco Use Types Packs/Day Years [...] your housing situation today? I have andrew brian 11/15/[address] you li [...] Description 07/23/2024 10:30 AM EDT Office Visit [facility] [address] [place] [address] Tarka, Coral, OD [address] [place] [address] 08/22/2024 2:15 PM EDT Office Visit [facility] [address] [place] [address] Lauren Whittaker MD [address] [place] [phone] documented as of this encounter Visit Diagnoses Not on filedocumented in this encounter Additional Health Concerns Assessment Noted Time PHQ-9 Depression Total Score: 0 11/15/19 9:31 AM EDT documented as of this encounter Care Teams Sales Route Driver Helper Relationship Specialty Start Date End Date Lauren Whittaker MD [address] [place] [address] PCP - General Internal Medicine 11/15/23 [facility] 03/08/24 documented as of this encounter
--- OUTSIDE RECORDS SUMMARY | 2024-07-01 15:15 | XMS_ITS | Encounter Summary ---
Author Organization [employer] Address [address] [place] [address] 7 [place] [address] Care Team Providers Care Padder Cushion Name Role Phone Lauren Whittaker MD Primary Care Pro vider Encounter Details Date Type Department Care Team ([facility] st Contact Info) Description 01/30/2024 Telephone [facility] [address] [place], [place] [phone] Ioana Antonio, PharmD [address] [place] [address] Social History Tobacco Use Types Packs/Day Years Used Date Smoking Tobacco: Never Passive Smoke Exposure: Never Smokeless Tobacco: Never [...] encounter Miscellaneous Notes * Telephone Encounter - Ellie Stout - 02/05/2024 12:56 PM EST Tc from Pat with [facility] cardiology . States is returning a missed call. Best contact # [phone]. * Telephone Encounter - Ioana Antonio PharmD - 01/30/2024 3:10 PM EDT Please assist in obtaining discharge paperwork from [facility] Patient was discharged on 01/27/2024, and [facility] recent discharge (exact date unknown). Thank you documented in this encounter Plan of Treatment Upcoming Encounters Date Type Department Care Team (Late st Contact Info) Description 07/23/2024 10:30 AM EDT Office Visit [facility] [address] [place] [address] Coral Avendano, OD [address] [place] [address] 08/22/2024 2:15 PM EDT Office Visit [facility] [address] [place] [address] Lauren Whittaker MD [address] [place], [place] [phone] documented as of this encounter Visit Diagnoses Not on filedocumented in this encounter Additional Health Concerns Assessment Noted Time PHQ-9 Depression Total Score: 0 11/15/19 24 9:31 AM EDT documented as of this encounter Care Teams Padder Cushion Relationship Specialty Start Date End Date Lauren Whittaker MD [address] [place] [address] PCP - General Internal Medicine 11/15/23 [facility] 03/08/24 documented as of this encounter
--- OUTSIDE RECORDS SUMMARY | 2024-07-01 15:15 | XMS_ITS | Clinical Summary ---
Author Organization [facility] Address [address] [place] [id number] Care Team Providers Care Associate Software Application Engineer Name Role Phone Jazminsully Amari Primary Care Provider [phone] Allergies Active Allergy Reactions Criticality Noted Date Comments Bee Venom Shortness Of Breath High 12/25/2020 Beef-Derived Drug Products Itching Low 06/29/2018 Ibuprofen Other (See Comments) 07/31/2018 Impaired renal function Levetiracetam Itching Low 06/05/2018 Atorvastatin Hives Medium 06/02/2018 Pea Hives Medium 06/02/2018 Pea Anaphylaxis,Shortnes s Of Breath,Hives,Itching High 01/10/2008 Potato Itching Low 06/29/2018 Medications Medication Sig Dispensed Refills Start Date End Date Status levothyroxine (SYNTHROID, LEVOTHROID) 75 MCG tabletIndications:Hy pothyroidism Take 1 tablet (75 mcg total) by mouth daily on an empty stomach. 30 tablet 06/14/2018 Active EPINEPHrine 0.3 mg/0.3 mL IJ auto-injection Inject 0.3 mL (0.3 mg total) into the shoulder, thigh, or buttocks once as needed for allergic reaction. Active melatonin 5 MG Tab tablet Take 1 tablet (5 mg total) by mouth nightly. Active diphenhydrAMINE (BENADRYL) 25 mg capsule Take 1 capsule (25 mg total) by mouth nightly as needed for allergies (sleep). Active fluticasone (FloNASE) 50 mcg/spray nasal spray 1 spray into each nostril daily as needed for allergies. Active nitroglycerin (NITROSTAT) 0.[address] 1 tablet (0.4 mg total) under the tongue every 5 (five) minutes as needed for chest pain. Active traZODone (DESYREL) 150 MG tablet Take 1 tablet (150 mg total) by mouth nightly. Active tamsulosin (FLOMAX) 0.4 MG capsule Take 1 capsule (0.4 mg total) by mouth daily. Active SUMAtriptan (IMITREX) 50 MG tablet Take 1 tablet (50 mg total) by mouth once as needed for migraine. May repeat in 2 hours if unresolved. Do not exceed 200 mg in 24 hours. Active sotalol (BETAPACE) 80 MG tablet Take 1 tablet (80 mg total) by mouth 2 (two) times a day. Active rivaroxaban (XARELTO) 20 MG tablet Take 1 tablet (20 mg total) by mouth every evening with dinner. Take with meals. Active risperiDONE (RisperDAL) 1 MG tablet Take 1 tablet (1 mg total) by mouth 2 (two) times a day. Active QUEtiapine (SEROquel) 100 MG tablet Take 1 tablet (100 mg total) by mouth nightly. Active oxyCODONE (ROXICODONE) 5 MG immediate release tablet Take 1 tablet (5 mg total) by mouth 2 (two) times a day as needed for severe pain. Active metFORMIN (GLUCOPHAGE) 500 MG tablet Take 1 tablet (500 mg total) by mouth every evening. Active LORazepam (ATIVAN) 0.5 MG tablet Take 1 tablet (0.5 mg total) by mouth nightly as needed. Active lisinopril (PRINIVIL,ZeSTRIL) 2.5 MG tablet Take 1 tablet (2.5 mg total) by mouth daily. Active isosorbide mononitrate (IMDUR) 30 MG 24 hr tablet Take 1 tablet (30 mg total) by mouth daily. Active hydrOXYzine pamoate (VISTARIL) 50 MG capsule Take 1 capsule (50 mg total) by mouth 3 (three) times a day as needed for itching. Active gabapentin (NEURONTIN) 300 MG capsule Take 1 capsule (300 mg total) by mouth 2 (two) times a day. Active ezetimibe (ZeTIA) 10 MG tablet Take 1 tablet (10 mg total) by mouth daily. Active escitalopram (LEXAPRO) 10 MG tablet Take 2 tablets (20 mg total) by mouth daily. Active acetaminophen (TYLENOL) 500 MG tablet Take 1 tablet (500 mg total) by mouth 4 times daily (every 6 hours) as needed for mild pain. Active Budesonide-Formotero l Fumarate (SYMBICORT IN) Inhale 1 Inhalation daily. Active albuterol (PROVENTIL HFA; VENTOLIN HFA) 108 (90 Base) MCG/ACT inhaler Inhale 2 puffs 4 times daily (every 6 hours) as needed for wheezing. Active raNOLazine (raNEXa) 500 MG 12 hr tabletIndications:Ch est wall pain Take 1 tablet (500 mg total) by mouth twice daily (every 12 hours). Swallow tablet whole; do not crush, break, or chew. 60 tablet 01/23/2023 Active Active Problems Problem Noted Date Diagnosed Date V-tach 01/22/2023 Encounter for assessment of automatic implantable cardioverter-defibrillator (AICD) 01/21/2023 Major depressive disorder, r ecurrent severe without psychotic features 06/06/2018 Contusion of left frontal lobe 06/05/2018 Chest pain 06/02/2018 Depression with suicidal ideation 06/02/2018 Atrial fibrillation 06/02/2018 Prolonged QT interval 06/02/2018 Dyspnea 06/02/2018 Social History Tobacco Use Types Packs/Day Years Used Date Smoking Tobacco: Former Smokeless Tobacco: Never Alcohol Use Standard Drinks/Week Comments No 0 (1 standard drink = 0.6 oz pur e alcohol) AUDIT-C Answer Date Recorded Q1: How often do you have a drink containing alcohol? Never 01/22/2023 Q2: How many drinks containi ng alcohol do you have on a typical day when you are drinking? Patient does not drink Q3: How often do you have si x or more drinks on one occasion? Never 01/22/2023 Sex and Gender Information Value Date Recorded Sex Assigned at Male 01/21/2023 8:49 PM EDT Gender Identity Male 01/21/2023 8:49 PM EDT Sexual Orientation Choose not to disclose 2022 8:49 PM EDT Last Filed Vital Signs Vital Sign Reading Time Taken Comments Blood Pressure 140/75 01/23/2023 11:45 AM EDT Pulse 73 01/23/2023 11:45 AM EDT Temperature 35.9 ??C (96.6 ??F) 01/23/2023 11:45 AM E DT Respiratory Rate 18 01/23/2023 11:45 AM EDT Oxygen Saturation 96% 01/23/2023 11:45 AM EDT Inhaled Oxygen Concentration - - Weight 109 kg (240 lb) 01/22/2023 4:10 PM EDT Height 175.3 cm (5' 9 ) 01/22/2023 4:10 PM EDT Body Mass Index 35.44 01/22/2023 4:10 PM EDT Plan of Treatment Health Maintenance Due Date Last Done Comments Hepatitis C Virus Screening 1962 HIV Screening 1975 Microalbumin/Creatinine Ratio Urine 01/26/1980 DTaP/Tdap/Td Vaccines (1 - Tdap) 1981 Colonoscopy 2007 Pneumococcal Vaccines 50+ (1 of 1 - PCV) 01/26/2012 Zoster (Shingles) Vaccine (1 of 2) 01/26/2012 RSV Vaccine 60 years and older and Patients (1 - Risk 60-74 years 1-dose series) 2022 Influenza Vaccine 11/02/2023 02/17/2022, , 04/17/2018, Additional history exists COVID-19 Vaccine ( season) 2023 06/03/2020, 05/06/2020 Hemoglobin A1C Discontinued 01/22/2023, 12/03, 12/06/2020, Additional history exists Hepatitis B Vaccines Aged Out No long er eligible based on patient's age to complete this topic Pneumococcal Vaccine: Pediatric (0-5 Years) and At-Risk Patients (6 to 49 Years) Aged Out No longer eligible based on patient's age to complete this topic Medical Devices Implanted Type Area Tape Cutting Machine Operator Device Identifier Shelf Expiration Date Model / Serial / Lot Icd ICD [employer] [id number] Vinicio Nelson [id number] Implanted:05/04 (Quantity not on file) ICD [employer] [id number] VINICIO NELSON / [id number] / Pacemaker Pacemaker Procedures Procedure Name Priority Date/Time Associated Diagnosis Comments HEMOGLOBIN A1C WITH ESTIMATED AVERAGE GLUCOSE STAT 01/22/2023 7:00 AM EDT from Last 3 Months or Most Recently Relevant to Health Maintenance Results * (ABNORMAL) Hemoglobin A1c with Estimated Average Glucose (01/22/2023 7:00 AM EDT) Hemoglobin A1C 7.1(H) <5.7 % 01/22/2023 8:43 AM EDT [facility] Comment: A1c% ? Interpretation 5.7 - 6.0 ?Increase risk of diabetes 6.1 - 6.4 ?Higher risk of diabetes > or = 6.5 ?? Consistent with diabetes Diabetes Care, 33(Supp 1):S1-S61, 2010 Estimated Average Glucose 157 mg/dL 01/22/2023 8:43 AM EDT [facility] Blood specimen (specimen) Blood specimen / Unknown 01/22/2023 7:00 AM EDT 01/22/2023 7:33 AM EDT Christophe Bullard MD LAB BLOOD ORDER [facility] See Below [facility] [address] [place] [address] from Last 3 Months or Most Recently Relevant to Health Maintenance Advance Directives * Full Code (Latest Code Status on File) Date Activated Date Inactivated Comments 01/22/2023 5:25 AM * Full Code Date Activated Date Inactivated Comments 01/22/2023 12:00 AM 01/22/2023 5:25 AM * Full Code Date Activated Date Inactivated Comments 11/02/2019 10:36 PM 09/04/2020 9:05 PM * Full Code Date Activated Date Inactivated Comments 06/06/2018 4:17 PM 11/02/2019 7:29 PM * Full Code Date Activated Date Inactivated Comments 06/02/2018 2:18 PM 06/06/2018 4:09 PM Care Teams Associate Software Application Engineer Relationship Specialty Start Date End Date Amari Vyas DO [address] [place] [id number] PCP - General Internal Medicine 01/21/23
--- OUTSIDE RECORDS SUMMARY | 2024-07-01 15:16 | XMS_ITS | Encounter Summary ---
Author Organization [employer] Address [address] [place] [address] [address] [place] [address] Care Team Providers Care Captain Assistant Name Role Phone Lauren Whittaker MD Primary Care Pro vider Reason for Visit * Reason Onset Date Comments Nurse Triage 11/21/2023 Encounter Details Date Type Department Care Team ([facility] st Contact Info) Description 11/21/2023 Telephone [facility] MEDICINE [address], [place] [phone] Lauren Whittaker MD [address] [place] [address] Nurse Triage Social History Tobacco Use Types Packs/Day Years [...] Recorded Patient Health Questionnaire-2 Score 0 11/15/2023 Sex and Gender Information Value Date Recorded Sex Assigned at Male 08/23/2023 2:31 PM EDT Legal Sex Male 2:27 PM EDT Gender Identity Male 08/23/2023 2:31 PM EDT Sexual Orientation Straight 11/15/2023 8: 40 AM EDT documented as of this encounter Miscellaneous Notes * Telephone Encounter - Peggy Rey RN - 11/21/2023 2:13 PM EDT Pt reports went to [facility] 11/15/23 to be seen for Back pain. Could a request be made for report for Pt chart. Thank you. * Telephone Encounter - Peggy Rey RN - 11/21/2023 2:12 PM EDT Triage call Pt answered and then let the Visiting nurse on the phone to speak for Pt. Nurse reportsPt is continuing to have right flank/ low back pain which is not being relieved by 500mg tylenol ordered at [facility] 11/15/23. While nurse present Pt was going to sit in the chair and Pt knees buckled and Pt fell to floor on buttocks. Pt is reporting spasms, pain and not able to find position of comfort. Pt went to [facility] 11/15/23 and was given shot of morphine for pain but, no further prescription for pain medication. Pt is advised to come to [facility] for provider to see today. Visiting nurse will bring Pt to [facility] today. Pt agrees with this disposition. Protocol Used: Back Pain (Adult) Protocol-Based Disposition: See in Office or Video Visit Today Video visit not offered Positive Triage Question: * Severe back pain (e.g., excruciating, unable to do any normal activities) and not improved after pain medicine and Care Advice * All higher-acuity triage questions were negative Care Advice Discussed: * Reassurance and Education - Back Pain * Cold or Heat * Sleep * Activity * Pain Medicines * Pain Medicines - Extra Notes and Warnings * Reasons To Call Back - Fever occurs - Numbness or weakness occurs, or bowel/bladder problems - Pain begins to shoot into the leg - Pain persists over 2 weeks - Pain becomes worse - You become worse * Telephone Encounter - Kuldip Meek - 11/21/2023 1:49 PM EDT Symptom: Back Pain - Not From Injury Outcome: Schedule an appointment to be seen within 3 days Reason: Caller denied all higher acuity questions The caller accepted this outcome documented in this encounter Plan of Treatment Upcoming Encounters Date Type Department Care Team (Late st Contact Info) Description 07/23/2024 10:30 AM EDT Office Visit [facility] OPTOMETRY [address] [place] [address] Coral Avendano, OD [address] [place] [address] 08/22/2024 2:15 PM EDT Office Visit [facility] MEDICINE [address] [place] [address] Lauren Whittaker MD [address] [place] [address] documented as of this encounter Visit Diagnoses Not on filedocumented in this encounter Additional Health Concerns Assessment Noted Time PHQ-9 Depression Total Score: 0 11/15/19 24 9:31 AM EDT documented as of this encounter Care Teams Captain Assistant Relationship Specialty Start Date End Date Lauren Whittaker MD [address] [place] [id number] PCP - General Internal Medicine 11/15/23 [facility] 03/08/24 documented as of this encounter
--- OUTSIDE RECORDS SUMMARY | 2024-07-01 15:16 | XMS_ITS | Data Portability ---
Author Organization [facility], Main Office Address [address] [place] [address] [address] [place] [address] Care Team Providers Care Qc Manager Name Role Phone JIM VILLANUEVA - 2ND FLOOR OTHER Assessment Encounter Date Assessment Date Assessment LastModified by Organization Details LastModified Time 07/25/2017 07/25/201707/04: TSH 2.41, 06/20: A1C 6.2 glord Not available 07/25/2017 15:58:09 08/10/2017 08/10/201704/14: bun 21, creat 1.1, wbc 6.78, hgb 11.8, hct 34.8 07/04: TSH 2.41 06/20: A1C 6.2 Not available 08/10/2017 15:07:28 02/12/2024 02/12/202404/14: bun 21, creat 1.1, wbc 6.78, hgb 11.8, hct 34.8 07/04: TSH 2.41 06/20: A1C 6.2 02/12/24: na 141, k 3.7, bun 17, cr 1.20, egfr 68, ast 14, alt 19, alk phos 78, alb 3.3, wbc 5.1, hgb 11.9, hct 36.6, plt 85, tsh 4.56, Not available 02/12/2024 13:59:32 02/16/2024 02/16/202404/14: bun 21, creat 1.1, wbc 6.78, hgb 11.8, hct 34.8 07/04: TSH 2.41 06/20: A1C 6.2 02/12/24: na 141, k 3.7, bun 17, cr 1.20, egfr 68, ast 14, alt 19, alk phos 78, alb 3.3, wbc 5.1, hgb 11.9, hct 36.6, plt 85, tsh 4.56, [place] Not available 02/16/2024 18:22:17 02/22/2024 02/22/202404/14: bun 21, creat 1.1, wbc 6.78, hgb 11.8, hct 34.8 07/04: TSH 2.41 06/20: A1C 6.2 02/12/24: na 141, k 3.7, bun 17, cr 1.20, egfr 68, ast 14, alt 19, alk phos 78, alb 3.3, wbc 5.1, hgb 11.9, hct 36.6, plt 85, tsh 4.56, 02/21/24: wbc 5.5 hgb 12.1, hct 37, plt 84, na 142, k 4.3, bun 14, cr 1.15, egfr 72 Not available 02/22/2024 11:13:13 Plan of Treatment Reminders Order Date Submit Date Provider Last Modified By Organization Details Last Modified Time Details Appointments None recorded . Lab None recorded . Referral None recorded . Procedures None recorded . Surgeries None recorded . Imaging None recorded . Medication Orders oxycodon e-acetam inophen 5 mg-325 mg tablet 024 02/16/20 [facility] , [address] [place] [address], [address], 21:36:06 Patient TargetsNo targets recorded. Patient InstructionsNo instructions recorded. Reason for Referral None Reported. Problems Name Problem SNOMED Code Status Onset Date Resolution Date Notes Provider Name and Address Organization Details Recorded Time Orthostatic hypotension 75586888 Active 2023 Ivelisse Hart MD [address] [facility], [address], [place], [address], [facility] [employer] 4 18:24:49 Chest pain 28329496 Active 2023 Ivelisse Hart MD [address] [facility], [address], [place], [address], [facility] [employer] [facility] 4 18:27:24 Bifascicula r block 34197089 Active 2023 Ivelisse Hart MD [address], [address], [place], [address], [facility] 4 18:31:47 Thrombocyto penic disorder 560248813 Active 2023 Ivelisse Hart MD [address], [address], [place], [address], [facility] 4 18:43:24 Intellectua l disability 744894106 Active 2023 Ivelisse Hart MD [address], [address], [place], [address], [facility] 4 18:44:22 Gastroesoph ageal reflux disease without esophagitis 680522762 Active 2023 Ivelisse Hart MD [address] , [address], [place], [address], [facility] 4 18:54:10 Obesity 657503735 Active 2023 Ivelisse Hart MD [address] [facility], [address], [place], [address], [facility] 4 18:54:57 Mixed anxiety and depressive disorder 158222191 Active 2023 Ivelisse Hart MD [address] [place] [address], [address], [place], [address], [facility] 4 18:57:08 Pain of knee region 8467660479 Active 2023 Ivelisse Hart MD [address] [place] [address], [address], [place], [address], [facility] 4 18:58:16 Obstructive sleep apnea syndrome 43978610 Active 2023 Ivelisse Hart MD [address] [facility], [address], [place], [address], [facility] 4 19:03:46 Alcohol abuse 07415763 Active 2023 Ivelisse Hrat MD [address], [address], [place], [address], [facility] 4 19:06:12 Migraine 42945612 Active 2023 Ivelisse Hart MD [address] [facility], [address], [place], [address], [facility] [employer] [facility] 4 19:10:43 Frequent attender of emergency room 2353877542178 04 Active 2023 Ivelisse Hart MD [address] [facility], [address], [place], [address], [facility] [employer] [facility] 4 19:12:29 Mental retardation Active 2017 Razia Ames null, [facility] 8 16:10:41 Atrial fibrillatio n 35142996 Active 2017 Razia Kitty null, [facility] 8 16:10:46 Tetralogy of Fallot 77363755 Active 2017 Razia Tang null, [facility] 8 16:10:59 Essential hypertensio n 12094406 Active 2017 Razia Melvin null, [facility] 8 16:11:14 Mixed hyperlipide crescencio 694081866 Active 2017 Razia Kitty null, [facility] 8 16:11:21 Benign prostatic hyperplasia 288212471 Active 2017 Razia Kitty null, [facility] 8 16:11:26 Chronic obstructive pulmonary disease 00195818 Active 2017 Razia Melvin null, [facility] 8 16:11:31 Diabetes mellitus 50005004 Active 2017 Razia Melvin null, [facility] 8 16:17:50 Hypothyroid ism 71214099 Active 2017 Razia Kitty null, [facility] 8 16:19:53 Ankle pain 426614554 Active 2017 SHANNON LORD [address] [facility], [address], [place], [address], [facility] [employer] [facility] 8 15:59:07 Problem Notes None recorded. Medical Equipment None Reported. Allergies Allergen ID Allergen Name Allergen Category Reaction Reaction Severity Criticality Documentation Date Start Date Code Code System Note Provider Name and Address Organization Details Recorded Time 98161 Pisum sativum (pea) extract food other Not available high 02/12/2024 07975 12 RxNorm green peas Not Available Not Available Not Available 33905 honey bee venom medicatio n other Not available high 02/12/2024 34692 7 RxNorm unkno wn Not Available Not Available Not Available 9916 Lipitor medicatio n Not available Not available Not available 06/22/2017 51074 5 RxNorm Not Available Not Available Not Available Medications Name Sig Start Date Stop Date Status Note LastModified by Organization Details LastModified Time oxycodone -acetamin ophen 5 mg-325 mg tablet Take 1 tablet every day by oral route at bedtime. 024 active Not Available Not Available Not Avai lable Vitals Date Recorded Body weight Heart rate Respiratory rate Body temperature Oxygen saturation Oxygen saturation in Arterial blood by Pulse oximetry Systolic blood pressure Diastolic blood pressure Provider Name and Address Organization Details Last Updated DateTime 4 911375. 58 g 81 /min 18 /min 97.6 [degF] 94 % 94 % 143 mm[Hg] 83 mm[Hg] Ashley Irwin NP [address] , [address], [place], [address], [facility] [employer] 4 13:22:45 Date Recorded Body height Body mass index (BMI) Body weight Heart rate Respiratory rate Body temperature Oxygen saturation Oxygen saturation in Arterial blood by Pulse oximetry Systolic blood pressure Diastolic blood pressure Provider Name and Address Organization Details Last Updated DateTime 4 175.26 cm 36.5 kg/m2 126698. 11 g 8 /min 18 /min 98 [degF] 98 % 98 % 146 mm[Hg] 76 mm[Hg] Ivelisse Hart MD [address] , [address], [place], [address], [facility] 4 18:18:26 Date Recorded Body height Body mass index (BMI) Body weight Heart rate Respiratory rate Body temperature Oxygen saturation Oxygen saturation in Arterial blood by Pulse oximetry Systolic blood pressure Diastolic blood pressure Provider Name and Address Organization Details Last Updated DateTime 4 175.26 cm 37.1 kg/m2 541490. 68 g 79 /min 16 /min 97.7 [degF] 97 % 97 % 148 mm[Hg] 82 mm[Hg] Ashley Irwin NP [address] [facility], [address], [place], [address], [facility] 4 10:54:45 Date Recorded Heart rate Respiratory rate Body temperature Oxygen saturation Oxygen saturation in Arterial blood by Pulse oximetry Systolic blood pressure Diastolic blood pressure Provider Name and Address Organization Details Last Updated DateTime 8 83 /min 23 /min 98.3 [degF] 97 % 97 % 130 mm[Hg] 71 mm[Hg] SHANNON CALIXTO [address] [facility], [address], [place], [address], [facility] 8 15:45:03 Date Recorded Heart rate Oxygen saturation Oxygen saturation in Arterial blood by Pulse oximetry Systolic blood pressure Diastolic blood pressure Provider Name and Address Organization Details Last Updated DateTime 8 74 /min 96 % 96 % 128 mm[Hg] 76 mm[Hg] Razia Junges [facility] 8 15:09:30 Social History Question Answer Notes LastModified by Organizat ion Details LastModified Time Tobacco Smoking Status Never Smoker Ivelisse Hart MD [address] [facility], [address], [place], [address], [facility] 02/16/2024 17:40:34 Do You Have An Advance Directive? Yes Full Code Information not available 06/22/2017 What Is Your Level Of Alcohol Consumption? None Sober Since 03/2023, About To Hit 11 Months. Information not available 02/16/2024 How Much Tobacco Do You Chew? None Information not available 06/22/2017 What Is Your Code Status? Full Code Information not available 02/12/2024 Where Do You Live? Apartment Recently Moved In With Cousin, Had Been At A Sober House, But Recently graduated Information not available 02/16/2024 Legal Guardian? No Informati on not available 02/16/2024 Do You Have A Medical Power Of As400 Operator? Yes Information not available 02/16/2024 What Was The Date Of Your Most Recent Tobacco Screening? 02/16/2024 Information not available 02/16/2024 Do You Have An Out Of Hospital DNR? No Information not available 02/16/2024 What Is Your Relationship Status? Single Information not available 02/16/2024 How Much Tobacco Do You Smoke? No Information not available 02/12/2024 Do You Use Any Illicit Or Recreational Drugs? No Information not available 02/16/2024 Has Tobacco Cessation Counseling Been Provided? No N/A As Pt Is A Non-smoker. Information not available 02/16/2024 Do You Or Have You Ever Used Any Other Forms Of Tobacco Or Nicotine? No Information not available 02/16/2024 Sex: Unknown Functional Status None recorded. Mental Status None recorded. Family History Nothing Reported Notes:n/c Medical History No medical history recorded. Immunizations Vaccine Type Date Status Note Provider Nam e and Address Organization Details Recorded Time Pneumococcal conjugate PCV 13 3 completed Dary Farmer [facility] 02/12/2024 13:04:57 pneumococcal polysaccharide PPV23 2 completed Dary Farmer [facility] 02/12/2024 13:05:19 pneumococcal polysaccharide PPV23 8 completed Dary [facility] 02/12/2024 13:05:29 influenza, unspecified formulation 2 completed Dary Farmer [facility] 02/12/2024 13:05:46 influenza, unspecified formulation 4 completed Dary Farmer [facility] 02/12/2024 13:05:53 SARS-COV-2 (COVID-19) vaccine, UNSPECIFIED 1 completed Dary Farmer [facility] 02/12/2024 13:06:09 SARS-COV-2 (COVID-19) vaccine, UNSPECIFIED 1 completed Daryshadi Farmer [facility] 02/12/2024 13:06:18 SARS-COV-2 (COVID-19) vaccine, UNSPECIFIED 2 completed Daryshadi Farmer [facility] 02/12/2024 13:06:26 influenza, unspecified formulation 3 completed Dary diggs [facility] 02/12/2024 13:06:49 Tdap 4 completed Dary diggs [facility] 02/12/2024 13:07:12 Past Encounters Encounter ID Performer Location Encounter Start Date Encounter Closed Date Diagnosis/Indication Diagnosis SNOMED-CT Code Diagnosis ICD10 Code Diagnosis Note [id number] Razia Tang [facility] on [address] [place] [address] 06/22/2017 16:05:35 06/27/2017 08:58:26 Mental retardation 21793304 F78 Supportive careHCP not invoked-ap pears capable of making own medical decisions presently Atrial fibrillation 4943 6004 I48.0 Not on anticoagul ationASA 81 mg dailySotal ol 160 mg BIDMonitor HR Tetralogy of Fallot 8629 9006 Q21.3 Hx ofs/p repair and shunt Essential hypertension 65188082 I10 Norvasc 2.5 mg dailySotal ol 160 mg BIDMonitor bp and labs Mixed hyperlipidemia 267 298107 E78.2 Diet controlled Will check lipid panel Benign pro static hyperplasia 203358334 N40.0 s/p TURP in Mar.Report ing dysuria-wi ll obtain urine for UA, C&SMonitor Chronic ob structive pulmonary disease 77376526 J43.8 Duonebs prnMonitor respirator y status Diabetes mellitus 347324 09 E11.9 Glipizide 5 mg dailyMetfo rmin 1000 BID Monitor accuchecks HbA1c excellent 06/20-follo w Hypothyroidism 65053628 E03.8 Levothyrox ine 75 mcg dailyTSH wnl 03/28/17Re peat annually Gastroesop hageal reflux disease without esophagitis 096966346 K21.9 Omeprazole 20 mg dailyMonit or sxs Loose stool 381718074 R1 9.5 Monitor loose stools-if continuing will obtain stool for c. diff [id number] Razia Tang [facility] on [address] [place] [address] 07/14/2017 12:51:22 07/19/2017 09:56:01 Tetralogy of Fallot 51397676 Q21.3 Hx ofs/p repair and shuntCardi ology eval prn Atrial fibrillation 4943 6004 I48.0 Not on anticoagul ationASA 81 mg dailySotal ol 160 mg BID-add parameters to hold for HR <55Obtain EKG due to c/o chest painMonito r and if chest pain worsening or associated with SOB send to ED for eval [id number] SHANNON CALIXTO [facility] on [address] [place] [address] 07/25/2017 15:44:04 07/27/2017 10:54:49 Atrial fibrillation 24558940 I48.0 Not on anticoagul ationASA 81 mg dailySotal ol 160 mg BID-add parameters to hold for HR <55sent back from ED with no changes, chest pain resolved with tramadol 50 mg Tetralogy of Fallot 8629 9006 Q21.3 Hx ofs/p repair and shuntCardi ology eval prn Ankle pain 772709990 M25 .572 Pain in left ankle, achillesPT to eval and treat [id number] Razia Tang [facility] on [address] [place] [address] 08/10/2017 14:47:44 08/17/2017 14:44:41 Atrial fibrillation 73189298 I48.0 Not on anticoagul ationASA 81 mg dailySotal ol 160 mg BIDHR stableF/u with cardiology , PCP Tetralogy of Fallot 8629 9006 Q21.3 Hx ofs/p repair and shuntCardi ology eval prn Ankle pain 379399753 M25 .572 Pain in left ankle, achilles-p atient reports hx of torn achillesPa in control with tramadolOu tpatient f/u with PCP to consider surgical repair Mental retardation 41151 005 F78 Supportive careServic es in place for discharge home Essential hypertension 46205246 I10 Norvasc 2.5 mg dailySotal ol 160 mg BIDBP with good control Mixed hyperlipidemia 267 559490 E78.2 Diet controlled Will check lipid panel Benign pro static hyperplasia 559731100 N40.0 s/p TURP in Mar.F/u with urology prn Chronic ob structive pulmonary disease 93556652 J43.8 Duonebs prnMonitor respirator y status Diabetes mellitus 571988 09 E11.9 Glipizide 5 mg dailyMetfo rmin 1000 BID Monitor accuchecks F/u with PCP Hypothyroidism 28417841 E03.8 Levothyrox ine 75 mcg dailyTSH wnl 03/28/17Re peat annually Gastroesop hageal reflux disease without esophagitis 808129870 K21.9 Omeprazole 20 mg dailyMonit or sxs [id number] Ashley Irwin NP [address] [address] 02/12/2024 12:59:52 02/13/2024 09:38:01 Atrial fibrillation 02455979 I48.0 has AICD with hx of teralogy of fallotriva roxaban 20 mg po dailySotal ol 80 mg BIDHR stableF/u with cardiology on 02/25 and 02/26? Tetralogy of Fallot 8629 9006 Q21.3 Hx ofs/p repair and shunt with AICD in placeCardi ology eval prn Mental retardation 98630 005 F79 Supportive careServic es in place for discharge home Essential hypertension 77910755 I10 contSotalo l 80mg BIDbp stablecons ider restarting lisinopril and isosorbide Mixed hyperlipidemia 267 937062 E78.2 Diet controlled monitor Benign pro static hyperplasia 464717285 N40.0 s/p TURP in Mar.tamulo sin on hold due to ortho bp, consider restarting F/u with urology prn Chronic ob structive pulmonary disease 94839380 J43.8 breo ellipta 100 mcg/25 mcg 1 puff dailyDuone bs prnalb prnMonitor respirator y status Diabetes mellitus 545284 09 E11.9 Metformin 500 mg BIDMonitor accuchecks monitor Hypothyroidism 07912606 E03.8 Levothyrox ine 75 mcg dailytsh aboveRepea t prn Gastroesop hageal reflux disease without esophagitis 967913148 K21.9 esomeprazo le 20 mg dailyMonit or sxs Obesity 621273270 E66.9 pt with obesitydie tician consult for good nutritiona l choicescar diac dietmonito r Peripheral neuropathy due to type 2 diabetes mellitus 4871899516 107 E11.42 gabapentin 300 mg po bidGlipizi de 5 mg dailyMetfo rmin 1000 BIDMonitor accuchecks Mixed anxi ety and depressive disorder 670389403 F41.8 risperidon e 1.5 mg po qhsquetiap ine 100 mg po qhaescital opram 20 mg po dailyhydro xyzine 25 mg po bidlorazep am 0.5 mg po daily prn anxietytra zodone 50 mg po qhsmonitor Pain of knee region 1003 199946 M25.569 xray at [facility] neg for acute concernsno ibuprophen due to xarelto per ptlidocain e patch to right knee on in amtyl 650 mg po tid and prn nte 3 gram/24 hrsmonitor Obstructiv e sleep apnea syndrome 78906668 G47.33 has osapt reports his cpap broke and was supposed to get one today but missed his apptresche d apptmonito r Chest pain 01531511 R07. 9 resolvedpt had chest pain on admission to regalcares een at [facility] and ruled out acute cardiac disease and returned to rehabmonit or Orthostati c hypotension 63180591 I95.1 pt with orthostati c hypotensio n upon standing, resolved with 1 liter of fluid and decreased bp medsencour age po fluidspt educated and aware to get up slowlypt had lisinopril , isosorbide , and tamsulosin heldplan to restart one by one as ableorthos tatic bp daily x 2 weeks, doc in pcc Adult fail ure to thrive syndrome 276732528 R62.7 pt reports 11 hospitaliz ations for falls since 04/2022 and feels if he needs to go back to detention he is open to it.monitor Recurrent falls 33426687 2 R29.6 pt with recurrent fallssuppo rtive caretherap y eval and treatortho static bp, get up slowly with walkermoni tor Asthenia 25690373 R53.1 pt with weaknessPT /OT eval and treatmonit or [id number] Ivelisse Hart MD [facility] [address] 02/16/2024 16:01:25 02/19/2024 11:53:18 Chest pain 45148136 R07.89 Chronic and recurrent ACS ruled out numerous times.Cont inue tx with gabapentin 300 mg TID, APAP 650 mg TID and 650 mg q 4 hrs prn (NTE TD of 3000 mg/d).Does have NTG SL ordered, but unclear if he needs this.Monit or sxs.Do not send to ED for CP unless changes in VS. Orthostati c hypotension 62337367 I95.1 BP has not been orthostati c since here.No other vitals checked since 02/11.Doin g well with rehab.Cont inue PT/OT for strengthen ing, balance, gait training, safety and function.C ontinue fall precaution s.Monitor for safety.Mon itor orthostati c vitals daily and monitor sxs. Atrial fibrillation 4943 6004 I48.0 Rate in good control on sotalol 80 mg BID.Contin ue Xarelto 20 mg qd for AC.Monitor HR and bleeding risk.F/U with cardio. Tetralogy of Fallot 8629 9006 Q21.3 Hx ofs/p repair and shunt placement. F/U with cardio as planned. Essential hypertension 99889955 I10 With some borderline SBPs since here, but mostly in good control off lisinopril , isosorbide and tamsulosin .Would hesitate to restart any anti-hyper tensives unless SBP consistent ly >150, due to hx of orthostasi s.Monitor BP, pulse and labs. Mixed hyperlipidemia 267 630254 E78.2 Continue ezetimibe 10 mg qd.F/U as outpt. Benign pro static hyperplasia 796931358 N40.0 No current sxs.Tamsul osin on hold due to orthostati c hypotensio n, consider restarting .F/u with uro as planned Diabetes mellitus 561540 09 E11.9 Fingerstic ks checked twice fasting since here, both low.Hga1C was borderline at 6.9Continu e metformin 500 mg BIDMonitor fingerstic ks prn and adjust meds as outpt. Hypothyroidism 21421563 E03.8 TSH WNL.Contin ue levothyrox ine 75 mcg qdMonitor TSH yearly. Gastroesop hageal reflux disease without esophagitis 322406887 K21.9 No current sxs.Contin ue esomeprazo le 20 mg qdMonitor GI sxs Obesity 409520356 E66.09 Continue to encourage healthy eating and physical activity.D ietician consult.Chris juanor wts. Mixed anxi ety and depressive disorder 168509683 F41.8 With hx of behaviors, but good since here.Quentin nue risperidon e 1.5 mg qhs, quetiapine 100 mg qhs, escitalopr am 20 mg qd, hydroxyzin e 25 mg BID, trazadone 50 mg qhs, melatonin 10 mg qhs, and lorazepam 0.5 mg po qd prn.Mood good today.Neelima tor mood.Consu lt psych prn Pain of knee region 1003 628922 M25.561 Not discussed today.Cont inue meds as above and lidocaine patch qd.PT/OT as above.Neelima tor Obstructiv e sleep apnea syndrome 35034756 G47.33 Currently without CPAP, needs f/u appt to get new one.Nursin g to reschedule . Recurrent falls 19502833 2 R29.6 As above. Bifascicular block 51706 003 I45.[address]Work ing well per last hosp check.F/U with cardio as planned, on 02/26 at 1:30 for office visit and 2:20 for device check at [address] Thrombocyt openic disorder 567278025 D69.59 Have been running low for many years. I suspect due to EtOH, but much consider rivaroxaba n effect also.No change in tx unless plts drop to <50,000 or signs of bleeding. Intellectu al disability 009099948 F70 Able to make his own decisions. Provide supportive care.Monit or function. Asthma 894275105 J45.30 No current sxs.Contin ue Breo ellipta 100/25 mcg 1 puff qd and albuterol MDI 2 puffs q 4 hrs prn.Monito r resp status Chronic neck pain 235665 1895 107 M54.2 It seems he has different c/o on different days, but today he says he's had neck pain for awhile.Gomez l add Percocet 5/325 mg qhs at pt's request.OK as long as only one tab/day.Co ntinue other meds as above.Cons ider increasing gabapentin . Alcohol abuse 31444885 F 10.11 Sober for almost 11 months, very proud of himself.qu it after almost dying after drinking a whole bottle of peppermint schnapps last march.W as in sober house until recently.N ow following up with AA and sponsor.En courage continued sobriety. Migraine 29760833 G43.90 9 Sees neuro.No sxs since here.Quentin nue sumatripta n 50 mg BID prn.Monito r sxs. Frequent a ttender of emergency room 5152326397 52766 Z76.89 With multiple ED visits at various facilities .Only rarely with documentab le problem.Ne eds to make care plan with PCP and home health as outpt.Avoi d transfer to ED while here unless clearly acute problem. [id number] [facility]win[facility] [address] 02/22/2024 10:53:07 02/23/2024 10:15:01 Orthostatic hypotension 52973044 I95.1 BP has not been orthostati c since here.bp 148/82 todayDoing well with rehab.Cont inue PT/OT for strengthen ing, balance, gait training, safety and function.C ontinue fall precaution s.Monitor for safety.Mon itor orthostati c vitals daily doc in pcc and monitor sxs. Chest pain 86781280 R07. 89 Chronic and recurrent ACS ruled out numerous times.with notable history of tetrology of fallotwork ed up for chest pain in ED 02/20Conti nuegabapen tin 300 mg TID, APAP 650 mg TID and 650 mg q 4 hrs prn (NTE TD of 3000 mg/d).NTG SL prn chest pain, call 911 if he uses thisMonito r sxs. Bifascicular block 16836 003 I45.[address].Work ing well per last hosp check.F/U with cardio as planned, on 02/26 at 1:30 for office visit and 2:20 for device check at [address] Recurrent falls 76625956 2 R29.6 As above. Atrial fibrillation 6413 6004 I48.0 Rate in good control on sotalol 80 mg BID.Contin ueXarelto 20 mg qd for AC.Monitor HR and bleeding risk.F/U with cardio. Tetralogy of Fallot 8629 9006 Q21.3 Hx ofs/p repair and shunt placement. F/U with cardio as planned. Essential hypertension 35610198 I10 overall bp stable with some 140sdecent control off lisinopril , isosorbide and tamsulosin .Would hesitate to restart any anti-hyper tensives unless SBP consistent ly >150, due to hx of orthostasi s.Monitor BP, pulse and labs. Thrombocyt openic disorder [id number] D69.59 Have been running low for many years. I suspect due to EtOH, but much consider rivaroxaba n effect also.No change in tx unless plts drop to <50,000 or signs of bleeding. Intellectu al disability [id number] F70 Able to make his own decisions. Provide supportive care.Monit or function. Chronic neck pain [id number] 0915 107 M54.2 It seems he has different c/o on different days, but today he says he's had neck pain for awhile.con tPercocet 5/325 mg qhs (added per md at pt's request.)C ontinue other meds as above.Cons ider increasing gabapentin if persists Mixed hyperlipidemia [id number] E78.2 Continue ezetimibe 10 mg qd.F/U as outpt. Benign pro static hyperplasia [id number] N40.0 No current sxs.Tamsul osin on hold due to orthostati c hypotensio n, consider restarting .F/u with uro as planned Asthma 110011581 J45.30 No current sxs.Contin ue Breo ellipta 100/25 mcg 1 puff qd and albuterol MDI 2 puffs q 4 hrs prn.Monito r resp status Diabetes mellitus 140535 09 E11.9 Fingerstic ks checked twice fasting since here, both low.Hga1C was borderline at 6.9Continu emetformin 500 mg BIDMonitor fingerstic ks prn and adjust meds as outpt. Hypothyroidism 04991845 E03.8 TSH WNL.Contin uelevothyr oxine 75 mcg qdMonitor TSH yearly. Gastroesop hageal reflux disease without esophagitis [id number] K21.9 No current sxs.Contin ueesomepra zole 20 mg qdMonitor GI sxs Obesity [id number] E66.09 Continue to encourage healthy eating and physical activity.D ietician consult.Mo nitor wts. Mixed anxi ety and depressive disorder [id number] F41.8 With hx of behaviors, but good since here.Quentin nuerisperi done 1.5 mg qhs, quetiapine 100 mg qhs, escitalopr am 20 mg qd, hydroxyzin e 25 mg BID, trazadone 50 mg qhs, melatonin 10 mg qhs, and lorazepam 0.5 mg po qd prn.Monito r mood.Consu lt psych prn Pain of knee region 1003 148895 M25.561 Continue meds as above and lidocaine patch qd.PT/OT as above.Neelima tor Obstructiv e sleep apnea syndrome 60532107 G47.33 Currently without CPAP, needs f/u appt to get new one.Nursin g to reschedule . Alcohol abuse 05800652 F 10.11 Sober for almost 11 monthsquit after almost dying after drinking a whole bottle of peppermint schnapps last march.W as in sober house until recently.N ow following up with AA and sponsor.En courage continued sobriety. Migraine 08143630 G43.90 9 Sees neuro.No sxs since here.Quentin nuesumatri ptan 50 mg BID prn.Monito r sxs. Frequent a ttender of emergency room [id number] 51178 Z76.89 With multiple ED visits at various facilities .Only rarely with documentab le problem.Ne eds to make care plan with PCP and home health as outpt.Avoi d transfer to ED while here unless clearly acute problem. Health Concerns Section Related Observation LastModified by Organization Detai ls LastModified Time None Recorded Concern Status LastModified by Organization Details LastModified Time None Recorded Advance Directives Directive Y: Full code Payers Encounter Date Sequence Insurance Name Policy Number Policy Tapia Covered Member ID Tapia Member ID Guarantor Name 07/25/2017 2 [place] [facility] Joaquín Barrientos [id number] Finance Dept [facility] 07/25/2017 1 [facility] - DOS PRIOR TO 2022 - DUAL ELIGIBLE (MEDICARE REPLACEMENT/AD VANTAGE - HMO) Joaquín Barrientos [id number] Finance Dept [facility] 08/10/2017 2 [place] [facility] Joaquín Maiert [id number] Finance Dept [facility] 08/10/2017 1 [facility] - DOS PRIOR TO 2022 - DUAL ELIGIBLE (MEDICARE REPLACEMENT/AD VANTAGE - HMO) Joaquín Teranrott [id number] Finance Dept [facility] 02/12/2024 2 [place] [facility] Joaquín Teranrott [id number] Finance Dept [facility] 02/12/2024 1 [facility] - DOS ON OR AFTER 2022 - MEDIC[place]AGE [place] (MED[place]ARE REPLACEMENT/AD VANTAGE - PPO) Joaquín Teranrott [id number] Finance Dept [facility] 02/16/2024 2 [place] [facility] Joaquín Teranrott [id number] Finance Dept [facility] 02/16/2024 1 [facility] - DOS ON OR AFTER 2022 - [place]/AD VANTAGE - PPO) Joaquín Teranrott [id number] Finance Dept [facility] 02/22/2024 2 [place] [facility] Joaquín Teranrott [id number] Finance Dept [facility] 02/22/2024 1 [facility] - DOS ON OR AFTER 2022 - [place]IC[place] (MED[place]/AD VANTAGE - PPO) Joaquín Teranrott [id number] Finance Dept [facility] Notes Date Note Type Note Provider Name and Address Organization Details Recorded Time 07/25/2017 text/html Acute rounding v isit on 57 yo male who was sent to the ED for complaint of chest pain that could not be resolved on the unit. Given a dose of tramadol and pain resolved, sent back to unit with no changes to plan of care. Staff reports he is at baseline, no concerns. Pt has complaint of ankle pain from a past torn achilles, he would like PT to evaluate him to see if they can help with the discomfort. SHANNON CALIXTO [address] [place] [address], [address], [place], [address], [facility] [employer] 07/25/2017 16:00:05 08/10/2017 text/html 57 yo male seen in preparation for discharge home tomorrow to live with brother. Patient with hx of mental retardation, a. fib, AICD, tetralogy of fallot s/p repair/shunt, htn, hld, bph, ponce, COPD. Patient with multiple ED visits with c/o chest pain however work-up for ACS negative and no intervention performed. Patient doing well, ambulates independently. Only complaint is left achilles pain-reports hx of torn achilles. Currently managed with pain control, patient considering pursuing surgical repair following discharge. Razia diggs MA - [facility] 08/10/2017 15:11:11 02/12/2024 text/html Pt seen for an initial intake summary. Joaquín is a 64 yo male LTC resident seen [place] [facility] [place] PMH:mental retardation, a. fib, AICD, tetralogy of fallot s/p repair/shunt, htn, hld, bph, ponce, COPD, TURP. Pt is a 64 yr old man who presented to [facility] with weakness and dizziness and right knee pain and it was found to have orthostatic hypotension. Hosp workup showed neg workup except orthostatic bp in which he was given 1 liter NS and lisinopril, isosorbide and tamsulosin were held. It was felt one of these meds could be reintroduced individually as tolerated upon dc to rehab. No new medications started and dc'd on a cardiac diet. While there he had right knee pain and xray was done and dc'd with tyl and ibuprophen as needed. After arrival to rehab he was later sent to [facility] for chest pain on 02/10 and discharged later that day back to rehab. Chest pain workup negative for acute findings with labs, EKG, and chest xray. He was given ketolorac and ondansetron in the ER. 02/11 Pt missed his sleep study to at 11:30am which will need to be resched outpt.02/26 1:[address]26 2:20 AICD device clinic [address](note: pt states his appt are on the 02/25 and 02/26. nursing to fu) On exam, pt is alert and oriented x3. He is smiling and aware of his appt dates, times, and plans for his ailments. He has a history of intellectual disability and currently able to answer all questions appropriately and seems higher functioning. He denies any dizziness, chest pain, knee pain at this time (but it does hurt often aswell as the back), or shortness of breath. MOLST: full code Ashley Irwin, BUILDING DRAFTER [address] [facility], [address], [place], [address], [facility] - [employer] [employer] 02/12/2024 14:58:46 02/16/2024 text/html This is a 64 yo man who is here for rehab after an acute hospitalization for a syncopal episode.[facility] an episode which he described as just walking and thenpassing out.Initial eval in ED was unremarkable, but when they tried to get him up to walk he got dizzy and wasmarkedly orthostatic.He initially got po fluids, and then 1 L of IV fluid bolus and was continued on 100 ml/hr. He remained orthostatic so was admitted.He also began c/o CP while in the ED, which had been a frequent c/o over the past months. His CP was reproducible with palpation and EKG, CXR and labs were non-acute.Of note, he had been in the [facility] ED or admitted 14 times over the past 6 months, also some visits at [facility] and [facility]. With c/o of falls, syncope and CP. Per d/c summary:This is a 64-year-old man who comes in to the emergency room complaining of dizziness and chest pain.ACS was ruled out, chest pain was reproducible on exam, his dizziness was possibly in the setting of orthostatic hypotension, he was given fluids in the hospital, since then orthostatic vitals have improved. On orthostatics checked this morning, his systolic blood pressure does drop by 20 points from laying to standing position however patient walked with a walker with assistance in the hallway of medical floor without any problems, without feeling lightheaded or dizzy.Lisinopril, isosorbide as well as tamsulosin have been held in the hospital, he will be discharged without these, to a rehab. Postdischarge, these could be reintroduced 1 after the other based on his symptoms/blood pressure. He wastransferred here on 02/09.After admission he developed CP on 02/10 and was transferred back to the [facility] ED.W/U was essentially neg, except for sl elevated Cr and troponin, which remained stable on repeat and he was returned here.Of note, pt has hadrecurrent c/o CP over the years, generally attributed to chest wall as it has been reproducible on palpation.Since return he has been working with rehab. He ambulated 500' with CGA.He tells me he felt a little lightheaded today, but otherwise none this week.He tells me he haschronic neck painthat keeps him up at night. When he has gotten percocet at bedtime it enables him to sleep through the night.He says he understands people don't want to give it to him because he is an EtOHic, but he state he only needs it at bedtime.He is glad he is here to get more PT, as the other times he was d/c'd from hospital he didn't feel strong enough.He also tells me he had a little diarrhea this AM, but none previously or since. He wonders if it's from his metformin, but he's been on it for 3 yrs. His PMH includes HTN, bifascicular block with ICD in place, tetralogy of fallot s/p repair/shunt, Afib on rivaroxaban, AODM, asthma, BPH s/p TURP, PONCE-needs CPAP, GERD, gout, anxiety/depression, DD, chronic non-cardiac chest pain,HLD, AUD in remission since 03/2023, and obesity. Ivelisse Hart MD [address] [place] [address], [address], [place], [address], [facility] - [employer] 02/16/2024 19:14:08 02/22/2024 text/html This is a 64 yo man who is here for rehab after an acute hospitalization for a syncopal episode seen for an acute rounding visit. His PMH includes HTN, bifascicular block with ICD in place, tetralogy of fallot s/p repair/shunt, Afib on rivaroxaban, AODM, asthma, BPH s/p TURP, PONCE-needs CPAP, GERD, gout, anxiety/depression, DD, chronic non-cardiac chest pain,HLD, AUD in remission since 03/2023, and obesity. Patient was seen for chest pain in the ED yesterday 02/20 after working with with PT walking in the halls and felt dizziness, chest pain and collapsed to the floor. No paperwork returned from hospital and pt states his workup was negative and sent him back. A similar episode on 02/17 happened and again workup was negative and sent back. ECG, chest xray troponins and labs unremarkable. He has an appointment with Dr Nix on 02/26 plate former per pt. Due to dizziness and syncopal episodes will continue here and reassess if discharge is possible next week. OVerall, he has been doing well apart from these CP episodes and working with therapy and at activities. On exam, Joaquín is up and walking holding on to furniture, stating he lost his walker from yesterdays fall. Nursing looking to find walker for him now. He states he is feeling good except for mild discomfort to the left chest when he pushes on it. He states he is not dizzy and eating and drinking well. No bleeding, nausea, vomiting or other concerns. Labs reviewed: see below Of note, he had been in the [facility] ED or other ED s admitted and for CP 16 times over the past 6 months, also some visits at [facility] and [facility]. With c/o of falls, syncope and CP. Per last admission:Lisinopril, isosorbide as well as tamsulosin have been held in the hospital, he will be discharged without these, to a rehab. [facility] discharge, these could be reintroduced 1 after the other based on his symptoms/blood pressure. Ashley Irwin NP [address] [facility], [address], [place], [address], [facility] [employer] 02/22/2024 11:20:05
== END 2024-07-01 13:30 | disposition home or self-care (01) ==
LOC: HO.HHCX 13:29
PROVIDERS: Visit Provider Internal Medicine
DX: R07.81 Pleurodynia (principal)
CPT/HCPCS: 71101

== ENCOUNTER → 2024-07-01 13:31 | Outpatient (BNV) | payer OTHER, SELFPAY | PROVIDERS: Visit Provider Radiology Diagnostic Radiology | DX: R07.9 Chest pain, unspecified (principal) | CPT/HCPCS: 71101 ==

== ENCOUNTER 2024-07-30 10:54 | Emergency (ER) | payer OTHER, SELFPAY ==
[2024-07-30] VITALS (12 sets, daily range): BP systolic 85–132; BP diastolic 54–74; PULSE 62–76; RESP 14–16; TEMP 36.2–36.5; O2SAT 95–98; BMI 39.4
--- NOTE | ~2024-07-30 | CT_ITS ---
EXAMINATION: CT HEAD WITHOUT CONTRAST CLINICAL INFORMATION: on xeralto, head injury COMPARISON: May 23, 2024. TECHNIQUE: Contiguous axial imaging was performed from the skull base to vertex without intravenous administration of contrast. This CT examination was performed using dose optimization techniques as appropriate, variously including the following: *Automated exposure control *Adjustment of mA and/or kV according to patient size (this includes techniques or standardized protocols for targeted exams where dose is matched to indication/reason for exam; i.e. extremities or head) *Use of iterative reconstruction technique DLP: 866.4 mGy-cm FINDINGS: Limited by patient's motion artifact. The bony calvarium demonstrates no acute cortical disruption. The skull base demonstrates no gross cortical disruption. No acute intracranial hemorrhage, mass effect, midline shift, hydrocephalus or herniation. Bilateral multifocal patchy deep periventricular white matter hyperintense T2 FLAIR signal involving centrum semiovale and katz radiata. There is a focal, 8mm hyperdense attenuation measuring 64 Hounsfield units centered left frontal deep periventricular white matter adjacent to the left frontal horn. Sellar/suprasellar region demonstrated no gross masses or focal hemorrhage. Craniocervical junction is intact. Poor pneumatization of the paranasal sinuses without air-fluid levels. Polypoid left maxillary sinus disease. For pneumatization of the mastoid air cells. Tympanic cavities are aerated. CT/CT head/brain wo IV con IMPRESSION: No acute fracture, bony calvarium. No acute intracranial hemorrhage. Extensive White matter disease likely related to small vessel occlusive disease. 8 mm hypodensity, intra-axial, deep periventricular left frontal white matter. Consider cavernoma/cavernous and jugular. Electronically signed by: Geronimo Monet MD 07/30/2024 12:36 PM EDT
--- NOTE | ~2024-07-30 | XR_ITS ---
EXAMINATION: XR CHEST CLINICAL INFORMATION: sob COMPARISON: July 01, 2024. TECHNIQUE: Frontal view of the chest was obtained. FINDINGS: Mild prominence of the interstitial markings. No consolidation, pleural effusion or pneumothorax. No hyperinflation. Cardiomediastinal silhouette size is unchanged. There are 3 relatively seen in the right heart chambers and likely the coronary sinus. Left-sided pacemaker reservoir. Multilevel thoracic spondylosis. XR/XR chest 1V IMPRESSION: Mild interstitial edema in the correct clinical settings. Electronically signed by: Geronimo Monet MD 07/30/2024 12:23 PM EDT
--- NOTE | ~2024-07-30 | CT_ITS ---
EXAMINATION: CT CERVICAL SPINE WITHOUT CONTRAST CLINICAL INFORMATION: Status post fall. COMPARISON: April 26, 2024. TECHNIQUE: Contiguous axial images through the cervical spine using 3 mm collimation with bone and soft tissue algorithm. Sagittal and coronal reformatted images acquired. This CT examination was performed using dose optimization techniques as appropriate, variously including the following: *Automated exposure control *Adjustment of mA and/or kV according to patient size (this includes techniques or standardized protocols for targeted exams where dose is matched to indication/reason for exam; i.e. extremities or head) *Use of iterative reconstruction technique. DLP: 1481 mGy centimeter. FINDINGS: Craniocervical junction is intact without malalignment. Degenerative changes in the periodontal C1 region. Multilevel syndesmophyte formation and marginal osteophyte formation from C3 to T1. There is preservation of the intervertebral disc height. There is chondrocalcinosis intervertebral discs, C5-6. C1 is intact. Syndesmophyte formation in the anterior arch. C2 is intact. C3 is intact. C4 is intact. C5 is intact. C6 is intact. C7 is intact. Bilateral facet joint hypertrophy at multiple levels. Vacuum phenomenon at C3-4. No prevertebral compartment hematoma, mass or fluid collection. Multilevel central spinal canal stenosis pronounced at C3-4 and C6-7 levels. Electrode leads, left-sided likely from a pacemaker. CT/CT cervical spine wo IV con IMPRESSION: Multilevel cervical spondylosis suggesting DISH without acute fracture or trauma-related listhesis. Fleischner guidelines were followed. Electronically signed by: Geronimo Monet MD 07/30/2024 12:30 PM EDT
--- NOTE | 2024-07-30 11:18 | ECG_ITS ---
Test Reason : CP Blood Pressure : */* mmHG Vent. Rate : 60 BPM Atrial Rate : 60 BPM P-R Int : 192 ms QRS Dur : 172 ms QT Int : 502 ms P-R-T Axes : 59 105 60 degrees QTcB Int : 502 ms Normal sinus rhythm competing with atrial paced rhythm Right bundle branch block Abnormal ECG When compared with ECG of 23-May-2024 13:48, Vent. rate has decreased by 37 bpm Referred By: Lindsey Riley Electronically Signed By: Bryan Juarez
[2024-07-30 11:32] LABS: MANUAL DIFF FLAG NO
[2024-07-30 11:34] LABS: Basophils Absolute Auto 0.1 X10*3/uL (0.0-0.2); Eosinophils Absolute Auto 0.3 X10*3/uL (0.0-0.4); Eosinophils Percent Auto 5.2 % (0-4); Hematocrit 34.2 % (42.0-52.0); Hemoglobin 11.4 g/dl (14.0-18.0); Imm Gran Abs Auto 0.08 X10*3/uL (0.00-0.03); Imm Gran Pct Auto 1.5 % (0.0-0.4); Lymphocytes Absolute Auto 1.3 X10*3/uL (1.2-4.9); Lymphocytes Percent Auto 24.1 % (20-40); Mean Corpuscular HGB Conc 33.3 g/dl (31.0-36.0); Mean Corpuscular Hemoglobin 28.1 pg (27.0-33.0); Mean Corpuscular Volume 84.4 fL (80.0-98.0); Mean Platelet Volume 10.4 fL (9.4-12.4); Monocytes Absolute Auto 0.6 X10*3/uL (0.1-1.2); Monocytes Percent Auto 10.8 % (2-11); Neutrophils Percent Auto 57.4 % (45-73); Red Blood Count 4.05 X10*6/uL (4.60-5.80); Red Cell Distribution Width 14.2 % (11.0-16.0); White Blood Count 5.2 X10*3/uL (4.8-10.8)
[2024-07-30 11:39] LABS: Platelet Count 83 X10*3/uL (160-400)
[2024-07-30 11:49] LABS: INTERNATIONAL NORM RATIO 1.1 (0.9-1.1); Prothrombin Time 12.6 SEC (10.9-12.4)
[2024-07-30 12:04] LABS: Alanine Aminotransferase 21 U/L (0-40); Albumin Level 3.7 g/dL (3.5-5.0); Alkaline Phosphatase 61 U/L (39-117); Anion Gap 12 (12-20); Aspartate Amino Transferase 19 U/L (5-37); Bilirubin Direct 0.2 mg/dL (0.0-0.5); Bilirubin Total 0.5 mg/dL (0.0-1.0); Blood Urea Nitrogen 13 mg/dL (9-16); Calcium 7.8 mg/dL (8.4-10.2); Carbon Dioxide 23 mmol/L (22-29); Chloride 109 mmol/L (96-108); Creatinine Clr Calc Pharmacy 91.9; Estimated Glomerular Filt Rate > 60; Glucose Random 109 mg/dL (60-115); Potassium 4.3 mmol/L (3.3-5.1); Sodium 140 mmol/L (135-145); Troponin-I High Sensitivity < 2.7 ng/L (<3.5-35.0)
--- NOTE | 2024-07-30 12:31 | ED.GENADULT ---
HPI - General Adult General Chief complaint: Fall Stated complaint: CP,FALL PER EMS Time Seen by Provider: 07/30/24 11:05 History of Present Illness HPI narrative: Patient is a 64-year-old male with a history of tetralogy of Fallot history of having a defibrillator history of COPD was coming to the hospital when he was waiting in the bus stopped suddenly felt lightheaded and had syncopal episode and had chest pain. The chest pain is mid chest. It goes to the arm. He has been worked up for similar pain in the past. He has been seen by Cardiology. Being followed normally at [facility] by Dr. Nix. Also see Dr. Dennison from time to time here in [facility]. Patient claims that the chest pain is tight. No fever no chills. His previous cardiology no stated He has a defibrillator, prior tetralogy of Fallot repair, last echocardiogram from last October at [facility] showed mild LV systolic dysfunction as well as dilated RV. He also has moderately dilated aortic root at 5 cm. Reported as having mild pulmonary regurgitation. Patient has multiple hospitalization due to chest pain syndrome which has been labile as noncardiac. Patient is very frustrated with this chest pain syndrome and as a result had suicidal ideation. He was therefore admitted to [facility] here for suicidal ideation. Plan to start him on psychiatric medication there was concern about QT prolongation Denies noticing any blood in the stool. Has a history of being on Xarelto. Claims compliance with medication. Complains that when he had the syncopal episode he might have hit his head. History of somatoform disorder. History of major depression. History of psychiatric admissions in the past for the chest pain. Related Data Home Medications ?Medication ?Instructions ?Recorded ?Confirmed albuterol sulfate 90 mcg/actuation 2 puff inhalation Q4H PRN 08/19/22 01/01/23 aerosol inhaler Shortness Of Breath hydroxyzine pamoate 50 mg capsule 50 mg PO BID Anxiety / Nausea 08/19/22 01/01/23 nitroglycerin 0.4 mg sublingual 0.4 mg sublingual Q5M PRN Chest 08/19/22 01/01/23 tablet Pain sotalol 80 mg tablet 80 mg PO BID 08/19/22 01/01/23 tamsulosin 0.4 mg capsule 0.4 mg PO BEDTIME 08/19/22 01/01/23 levothyroxine 75 mcg tablet 75 mcg PO DAILY@0600 09/08/22 01/01/23 risperidone 1 mg tablet 1.5 mg PO BEDTIME 09/08/22 01/01/23 rivaroxaban 20 mg tablet (Xarelto) 20 mg PO DAILY@1800 09/08/22 01/01/23 acetaminophen 325 mg tablet 650 mg PO Q4H PRN Fever Or Pain 01/01/23 01/01/23 aluminum-mag hydroxide-simethicone 10 ml PO Q4H PRN Constipation 01/01/23 01/01/23 400 mg-400 mg-40 mg/5 mL oral susp (Mylanta Maximum Strength) aspirin 81 mg tablet,delayed 81 mg PO DAILY 01/01/23 01/01/23 release bisacodyl 5 mg tablet,delayed 10 mg PO BEDTIME PRN Constipation 01/01/23 01/01/23 release calcium carbonate (Tums) 300 mg PO Q4H PRN Dyspepsia 01/01/23 01/01/23 cyclobenzaprine 5 mg tablet 5 mg PO TID PRN muscle spasms 01/01/23 01/01/23 escitalopram oxalate 20 mg tablet 20 mg PO DAILY 01/01/23 01/01/23 gabapentin 300 mg capsule 300 mg PO BID 01/01/23 01/01/23 magnesium hydroxide 400 mg/5 mL 30 ml PO DAILY PRN Constipation 01/01/23 01/01/23 oral suspension melatonin 10 mg tablet 10 mg PO BEDTIME PRN Insomnia 01/01/23 01/01/23 metformin 500 mg tablet 500 mg PO DAILY 01/01/23 01/01/23 ondansetron HCl 4 mg tablet 4 mg PO Q4H PRN nausea and 01/01/23 01/01/23 vomitting quetiapine 100 mg tablet 100 mg PO BEDTIME 01/01/23 01/01/23 sumatriptan succinate 50 mg tablet 50 mg PO BID PRN migraines 01/01/23 01/01/23 tramadol 50 mg tablet 50 mg PO Q6H PRN migraines 01/01/23 01/01/23 trazodone 50 mg tablet 25 mg PO BEDTIME 01/01/23 01/01/23 hydroxyzine HCl 50 mg tablet 50 mg PO BEDTIME 09/24/24 trazodone 150 mg tablet 150 mg PO BEDTIME 12/26/23 Previous Rx's ?Medication ?Instructions ?Recorded isosorbide mononitrate 30 mg 30 mg PO DAILY #0 tabs 09/22/21 tablet,extended release 24 hr ezetimibe 10 mg tablet 10 mg PO DAILY 7 days #7 tabs 08/24/22 oxycodone 5 mg tablet 5 mg PO BID PRN pain #4 tabs 01/01/23 prednisone 20 mg tablet 20 mg PO DAILY #5 tabs 01/01/23 cyclobenzaprine 10 mg tablet 10 mg PO TID PRN muscle spasm #10 08/31/23 tabs acetaminophen 325 mg capsule 325 mg PO Q4H PRN pain #30 caps 09/30/23 (Tylenol) lidocaine 5 % topical patch 1 patch topical DAILY PRN pain #15 09/30/23 ea meclizine 25 mg tablet 25 mg PO DAILY PRN dizziness #14 09/30/23 tabs miscellaneous medical supply #1 ea 12/26/23 naloxone 4 mg/actuation nasal 4 mg intranasal Q2M PRN opioid 12/26/23 spray (Narcan) overdose #2 ea oxycodone-acetaminophen 5 mg-325 1 tab PO Q8H PRN pain (scale score 12/26/23 mg tablet 7-10) 7 days #20 tabs Allergies Allergy/AdvReac Type Severity Reaction Status Date / Time aripiprazole [From Abilify] Allergy Severe Rash Verified 07/30/24 11:13 peas Allergy Severe HIVES Verified 07/30/24 11:13 atorvastatin [From Lipitor] Allergy Intermediate Hives Verified 07/30/24 11:13 bee pollen [bee stings] AdvReac Severe Anaphylaxis Verified 07/30/24 11:13 Review of Systems Review of Systems: Positive chest pain positive shortness of breath positive syncopal episode Yes all other systems are reviewed and are negative PMFSH Past Medical History Attestation statement: The following information was validated with the patient. Medical History Somatoform disorder Depression with suicidal ideation Sleep apnea Seizure RBBB Cardiac defibrillator in place Artificial cardiac pacemaker Hyperthyroidism Hyperlipidemia History of ETOH abuse Hypertension GERD (gastroesophageal reflux disease) Diabetes Developmental delay, mild Depression COPD (chronic obstructive pulmonary disease) Asthma Anxiety Surgical History History of cardiac cath Social History Social History Household Members: Other Household Members Other:: 2 roommates Housing: Apartment Housing Other:: Sober House Do you presently have visiting nurse or other home services: No Alcohol intake: never Patient Tobacco Use Status: Never used Tobacco Tobacco use type: Cigarette Second Hand Smoke Exposure: No Substance Use Type: Former Substance User, Prescription Drugs and Caffiene Advance Directives: No Advance Directives Information Provided: Yes service: No Current occupational status: disabled Sexual orientation: Decline to Answer Physical Exam ED Vital Signs: Vital Signs - 24 hr 07/30/24 11:12 07/30/24 12:44 07/30/24 12:45 Temperature 97.4 F Pulse Rate 66 65 65 Respiratory Rate 16 Blood Pressure 85/63 L 114/54 L 113/62 Pulse Oximetry 97 Oxygen Delivery Method Room Air 07/30/24 12:47 07/30/24 14:30 07/30/24 14:37 Temperature 97.3 F Pulse Rate 76 62 Respiratory Rate 16 16 Blood Pressure 94/57 L 123/65 Pulse Oximetry 97 Oxygen Delivery Method Room Air 07/30/24 16:14 07/30/24 16:53 07/30/24 16:55 Temperature 97.2 F Pulse Rate 67 72 71 Respiratory Rate 14 Blood Pressure 115/70 128/74 131/74 Pulse Oximetry 95 Oxygen Delivery Method Room Air 07/30/24 16:55 07/30/24 17:22 Temperature Pulse Rate 72 Respiratory Rate Blood Pressure 114/67 132/57 L Pulse Oximetry Oxygen Delivery Method BMI result Body Mass Index 39.4 Appearance: Alert. Oriented X3. No acute distress. Eyes: Pupils equal, round and reactive to light. ENT: Pharynx normal. Neck: Normal inspection. Neck supple. No lymph nodes noted. No crepitus CVS: Normal heart rate and rhythm. Pulses normal. Normal S1 and S2 Respiratory: No respiratory distress. Breath sounds normal. No Wheezing. No rales Abdomen: Soft and nontender. No rigidity. No distention. good BS x4 Skin: Skin warm and dry. Normal skin color. Normal skin turgor. Extremities: No lower extremity edema. Neurovascular intact to all extremities. No Lacerations. No Rash Neuro: Oriented X 3. No motor deficit. No sensory deficit. Moving all extermities. No slurred speech Medications Administered Discontinued Medications Generic Name Dose Route Start Last Admin Trade Name Sancho PRN Reason Stop Dose Admin Hydromorphone HCl 0.5 mg 07/30/24 13:51 07/30/24 14:37 Hydromorphone Hcl 0.5 Mg/0.5 Ml Syringe IVPUSH 07/30/24 13:52 0.5 mg ONCE ONE Administration Protocol Sodium Chloride 1,000 mls @ 999 mls/hr 07/30/24 12:45 07/30/24 12:43 Ns IV 07/30/24 13:45 999 mls/hr .Q1H1M RADHA Administration Ondansetron HCl 4 mg 07/30/24 12:53 07/30/24 13:24 Ondansetron Hcl 4 Mg/2 Ml Vial IVPUSH 07/30/24 12:54 4 mg ONCE ONE Administration Medical Decision Making Medical Decision Making [facility] Narrative: My interpretation of his EKG showed a sinus rhythm heart rate is 60 OH is normal QRS is wide patient has a right bundle branch block which is old. There is significant T-wave inversion in V1 V2 these findings are old. Not seem from a previous EKG. Patient's previous cardiology report reviewed. Has significant history of chest pain history of somatoform disorder. Was coming to the hospital for chronic abdominal pain. When he developed chest pain and syncopal episode. Because syncopal episode and being on blood thinner. Hitting his head. CT scan of the head and C-spine was done. It showed no acute fracture of the C-spine. No acute bleed by my interpretation. I reviewed radiology's reading. C-collar was then removed. Patient had a syncopal episode his pacemaker/defibrillator was interrogated. Awaiting results. My interpretation of his chest x-ray showed the lead to be in place. There is no focal infiltrate. Radiology's interpretation shows a mild CHF Patient's case consulted by Cardiology. His symptoms are atypical is chest pain is atypical. Patient enzyme is negative. His defibrillator was interrogated. It showed no evidence for arrhythmia. No shock was delivered. Will discharge patient home. Currently in stable condition. IV hydration given. Differential Diagnosis Differential Diagnoses: The differential diagnosis associated with the presentation includes Vasovagal syncope Syncope Anemia Consult Healthcare Provider Management of the patient was discussed with: Commercial Sheet [employer]man (Cardiology) Lab Data MDM Lab Attestation statement: I reviewed the patient's lab results. 07/30/24 11:24 07/30/24 11:24 Labs: Lab Results 07/30/24 Range/Units 11:24 WBC 5.2 (4.8-10.8) X10*3/uL RBC 4.05 L (4.60-5.80) X10*6/uL Hgb 11.4 L (14.0-18.0) g/dl Hct 34.2 L (42.0-52.0) % MCV 84.4 (80.0-98.0) fL MCH 28.1 (27.0-33.0) pg MCHC 33.3 (31.0-36.0) g/dl RDW 14.2 (11.0-16.0) % Plt Count 83 L (160-400) X10*3/uL MPV 10.4 (9.4-12.4) fL Immature Gran % (Auto) 1.5 H (0.0-0.4) % Neut % (Auto) 57.4 (45-73) % Lymph % (Auto) 24.1 (20-40) % [place] % (Auto) 10.8 (2-11) % Eos % (Auto) 5.2 H (0-4) % Baso % (Auto) 1.0 (0-2) % Lymph # (Auto) 1.3 (1.2-4.9) X10*3/uL [place] # (Auto) 0.6 (0.1-1.2) X10*3/uL Eos # (Auto) 0.3 (0.0-0.4) X10*3/uL Baso # (Auto) 0.1 (0.0-0.2) X10*3/uL Abs Immat Gran (auto) 0.08 H (0.00-0.03) X10*3/uL Absolute Neuts (auto) 3.0 (2.0-8.3) x10*3/uL Absolute Nucleated RBC 0.000 (0.0-0.012) X10*3/uL Nucleated RBC % (auto) 0.0 (0.0-0.2) /100WBC PT 12.6 H (10.9-12.4) SEC INR 1.1 (0.9-1.1) Sodium 140 (135-145) mmol/L Potassium 4.3 (3.3-5.1) mmol/L Chloride 109 H (96-108) mmol/L Carbon Dioxide 23 (22-29) mmol/L Anion Gap 12 (12-20) BUN 13 (9-16) mg/dL Creatinine 1.07 (0.5-1.4) mg/dL Estim Creat Clear Calc 91.9 Estimated GFR > 60 Random Glucose 109 (60-115) mg/dL Calcium 7.8 L (8.4-10.2) mg/dL Total Bilirubin 0.5 (0.0-1.0) mg/dL Direct Bilirubin 0.2 (0.0-0.5) mg/dL AST 19 (5-37) U/L ALT 21 (0-40) U/L Alkaline Phosphatase 61 (39-117) U/L Troponin I High Sens < 2.7 (<3.5-35.0) ng/L Total Protein 6.0 L (6.5-8.0) g/dL Albumin 3.7 (3.5-5.0) g/dL Independent Interpretation I performed an independent interpretation of an: EKG (My interpretation patient's EKG showed a sinus rhythm with a right bundle-branch block prolonged QT interval at about 500. EKG is not changed from previous. ), Plain X-Ray (Chest x-ray grossly negative) and CT Scan (CT head showed no evidence of bleeding) External Record Review External record reviewed: Inpatient record Chronic Conditions History of tetralogy of Fallot status post surgery Social Determinants Patient?s care significantly limited by Social Determinants of Health including: Problems related to primary support group Discharge Plan Discharge Clinical Impression: Syncope, vasovagal Patient Disposition: Home, Self-Care Prescriptions: No Action isosorbide mononitrate 30 mg Tablet Extended Release 24 Hr 30 mg PO DAILY Qty: 0 0RF Protocol: Hold for SBP< HOLD for SBP < : 90 sotalol 80 mg tablet 80 mg PO BID hydroxyzine pamoate 50 mg capsule 50 mg PO BID tamsulosin 0.4 mg capsule 0.4 mg PO BEDTIME nitroglycerin 0.4 mg tablet, sublingual 0.4 mg sublingual Q5M PRN (Reason: Chest Pain) albuterol sulfate 90 mcg/actuation HFA aerosol inhaler 2 puff inhalation Q4H PRN (Reason: Shortness Of Breath) ezetimibe 10 mg Tablet 10 mg PO DAILY 7 Days Qty: 7 0RF risperidone 1 mg tablet 1.5 mg PO BEDTIME Xarelto 20 mg tablet 20 mg PO DAILY@1800 levothyroxine 75 mcg tablet 75 mcg PO DAILY@0600 acetaminophen 325 mg tablet 650 mg PO Q4H PRN (Reason: Fever Or Pain) metformin 500 mg tablet 500 mg PO DAILY trazodone 50 mg tablet 25 mg PO BEDTIME ondansetron HCl 4 mg Tablet 4 mg PO Q4H PRN (Reason: nausea and vomitting) sumatriptan succinate 50 mg tablet 50 mg PO BID PRN (Reason: migraines) Rx Instructions: wait 2 hours between doses calcium carbonate [Tums] 300 mg (750 mg) Tablet,Chewable 300 mg PO Q4H PRN (Reason: Dyspepsia) aspirin 81 mg tablet,delayed release (DR/EC) 81 mg PO DAILY tramadol 50 mg tablet 50 mg PO Q6H PRN (Reason: migraines) quetiapine 100 mg tablet 100 mg PO BEDTIME magnesium hydroxide 400 mg/5 mL Suspension 30 ml PO DAILY PRN (Reason: Constipation) gabapentin 300 mg capsule 300 mg PO BID bisacodyl 5 mg Tablet,Delayed Release (Dr/Ec) 10 mg PO BEDTIME PRN (Reason: Constipation) alum-mag hydroxide-simeth [Mylanta Maximum Strength] 400-400-40 mg/5 mL Suspension 10 ml PO Q4H PRN (Reason: Constipation) escitalopram oxalate 20 mg Tablet 20 mg PO DAILY cyclobenzaprine 5 mg tablet 5 mg PO TID PRN (Reason: muscle spasms) melatonin 10 mg Tablet 10 mg PO BEDTIME PRN (Reason: Insomnia) prednisone 20 mg tablet 20 mg PO DAILY Qty: 5 0RF oxycodone 5 mg tablet 5 mg PO BID PRN (Reason: pain) Qty: 4 0RF Rx Instructions: Partial Fill upon patient request. cyclobenzaprine 10 mg tablet 10 mg PO TID PRN (Reason: muscle spasm) Qty: 10 0RF meclizine 25 mg tablet 25 mg PO DAILY PRN (Reason: dizziness) Qty: 14 0RF lidocaine 5 % adhesive patch,medicated 1 patch topical DAILY PRN (Reason: pain) Qty: 15 0RF Rx Instructions: leave on most painful area for up to 12 hrs acetaminophen [Tylenol] 325 mg capsule 325 mg PO Q4H PRN (Reason: pain) Qty: 30 0RF trazodone 150 mg tablet 150 mg PO BEDTIME hydroxyzine HCl 50 mg tablet 50 mg PO BEDTIME (DME) miscellaneous medical supply Misc See Rx Instructions .Route Qty: 1 0RF Rx Instructions: Quad cane use As directed oxycodone-acetaminophen 5-325 mg tablet 1 tab PO Q8H PRN (Reason: pain (scale score 7-10)) 7 Days Qty: 20 0RF Rx Instructions: Partial Fill upon patient request. naloxone [Narcan] 4 mg/actuation spray,non-aerosol 4 mg intranasal Q2M PRN (Reason: opioid overdose) Qty: 2 0RF Rx Instructions: spray 1 dose into ONE nostril; alternate nostrils w each dose until help arrives Referrals: Tamara Reaves, COST REPORT CLERK-C [Nurse Practitioner] - 08/01/24 Print Language: Divehi
[2024-07-30] MEDS: 0.9 % Sodium Chloride 1,000 ML 999 ML IV (12:43)
[2024-07-30] MEDS: ondansetron HCL 4 MG/2 ML VIAL IVPUSH (13:24)
--- OUTSIDE RECORDS SUMMARY | 2024-07-30 14:04 | XMS_ITS | Encounter Summary ---
Author Organization [employer] Address [address] [place] [address] [address] [place] [address] Care Team Providers Care Flash Drier Operator Name Role Phone Lauren Whittaker MD Primary Care Pro vider Encounter Details Date Type Department Care Team ([facility] st Contact Info) Description 01/30/2024 Telephone [facility] [address] [place], [place] [phone] Ioana Antonio, PharmD [address] [place] [address] Social History Tobacco Use Types Packs/Day Years [...] 12:56 PM EST Tc from Pat with [facility] cardiology . States is returning a missed call. Best contact # [phone]. * Telephone Encounter - Ioana Antonio PharmD - 01/30/2024 3:10 PM EDT Please assist in obtaining discharge paperwork from [facility] Patient was discharged on 01/27/2024, and [facility] recent discharge (exact date unknown). Thank you documented in this encounter Plan of Treatment Upcoming Encounters Date Type Department Care Team (Late st Contact Info) Description 08/22/2024 2:15 PM EDT Office Visit [facility] [address] [place] [phone] Lauren Whittaker MD [address] [place] [address] documented as of this encounter Visit Diagnoses Not on filedocumented in this encounter Additional Health Concerns Assessment Noted Time PHQ-9 Depression Total Score: 0 11/15/19 9:31 AM EDT documented as of this encounter Care Teams Flash Drier Operator Relationship Specialty Start Date End Date Lauren Whittaker MD [address] [place] [id number] PCP - General Internal Medicine 11/15/23 [facility] 03/08/24 documented as of this encounter
--- OUTSIDE RECORDS SUMMARY | 2024-07-30 14:04 | XMS_ITS | Encounter Summary ---
Author Organization [employer] Address [address] [place] [address] [address] [place] [address] Care Team Providers Care Medical Review Coordinator Name Role Phone Lauren Whittaker MD Primary Care Pro vider Encounter Details Date Type Department Care Team ([facility] st Contact Info) Description 03/20/2024 Telephone [facility] [address] [place], [place] [phone] Lauren Whittaker MD [address] [place] [address] Social History Tobacco Use Types Packs/Day Years [...] Description 08/22/2024 2:15 PM EDT Office Visit [facility] [address] [place] [phone] Lauren Whittaker MD [address] [place] [phone] documented as of this encounter Visit Diagnoses Not on filedocumented in this encounter Additional Health Concerns Assessment Noted Time PHQ-9 Depression Total Score: 0 11/15/19 9:31 AM EDT documented as of this encounter Care Teams Medical Review Coordinator Relationship Specialty Start Date End Date Lauren Whittaker MD [address] [place] [phone] PCP - General Internal Medicine 11/15/23 [facility] 03/08/24 documented as of this encounter
--- OUTSIDE RECORDS SUMMARY | 2024-07-30 14:04 | XMS_ITS | Clinical Summary ---
Author Organization [facility] Address [address] [place] [id number] Care Team Providers Care Infectious Disease Physician Name Role Phone Lilliam Amaridavin ROSS Primary Care Provider [phone] Allergies Active Allergy Reactions Criticality Noted Date [...] represent a complete record from that organization. levothyroxine (SYNTHROID, LEVOTHROID) 75 MCG tabletIndication s:Hypothyroidism Take 1 tablet (75 mcg total) by mouth daily on an empty stomach. 30 tablet 9 Active EPINEPHrine 0.3 mg/0.3 mL IJ auto-injection [...] by mouth nightly as needed. Active lisinopril (PRINIVIL,ZeSTRI L) 2.5 MG tablet Take 1 tablet (2.5 [...] hours) as needed for mild pain. Active Budesonide-Formo terol Fumarate (SYMBICORT IN) Inhale 1 Inhalation daily. Active albuterol (PROVENTIL HFA; VENTOLIN HFA) 108 (90 Base) MCG/ACT inhaler Inhale 2 puffs 4 times daily (every 6 hours) as needed for wheezing. Active raNOLazine (raNEXa) 500 MG 12 hr tabletIndication s:Chest wall pain Take 1 tablet (500 mg total) by mouth twice daily (every 12 hours). Swallow tablet whole; do not crush, break, or chew. 60 tablet 3 Active Active Problems Problem Noted Date Diagnosed [...] Assigned at Male 01/21/2023 8:49 PM EDT Legal Sex Male 12:20 PM EDT Gender Identity Male 01/21/2023 8:49 [...] C Virus Screening 1962 HIV Screening 1975 DTaP/Tdap/Td Vaccines (1 - Tdap) 1981 Colonoscopy [...] this topic Medical Devices Implanted Type Area Manager Roofing Device Identifier Shelf Expiration Date Model / Serial / Lot Icd ICD [facility] 2411-36c Vinicio Nelson [id number] Implanted:05/04 (Quantity not on file) ICD [employer] 2411-36C VINICIO NELSON / [id number] / Pacemaker Pacemaker Procedures Procedure Name Priority Date/Time Associated Diagnosis Comments HEMOGLOBIN A1C WITH ESTIMATED AVERAGE GLUCOSE STAT 01/22/2023 7:00 AM EDT from Last 3 Months or Most Recently Relevant to Health Maintenance Results * (ABNORMAL) Hemoglobin A1c with Estimated Average Glucose (01/22/2023 7:00 AM EDT) Hemoglobin A1C 7.1(H) <5.7 % 01/22/2023 8:43 AM EDT [facility] Comment: A1c% ? Interpretation 5.7 - 6.0 ?Increase risk of diabetes 6.1 - 6.4 ?Higher risk of diabetes > or = 6.5 ?? Consistent with diabetes Diabetes Care, 33(Supp 1):S1-S61, 2010 Estimated Average Glucose 157 mg/dL 01/22/2023 8:43 AM EDT [facility] Blood specimen (specimen) Blood specimen / Unknown 01/22/2023 7:00 AM EDT 01/22/2023 7:33 AM EDT Christophe Bullard MD LAB BLOOD ORDERABLES Fi nal Result HOSPITAL LAB See Below [address] [address] from Last 3 Months or Most Recently Relevant to Health Maintenance Insurance [facility] MEDICARE OUT OF NETWORK Member Subscriber Plan / Payer (Ef fective 2013-Present) Name:Joaquín Barrientos Relation to Subscriber:Self Name:Joaquín Barrientos Payer ID:Not on file Group ID:Not on file Type:Not on file Address: [address] [facility] MEDICARE OUT OF NETWORK Advance Directives * Full Code (Latest Code [...] 2:18 PM 06/06/2018 4:09 PM Care Teams Infectious Disease Physician Relationship Specialty Start Date End Date Amari Vyas DO [address] [place] [phone] PCP - General Internal Medicine 01/21/23
--- OUTSIDE RECORDS SUMMARY | 2024-07-30 14:04 | XMS_ITS | Continuity of Care Document ---
Author Organization [facility] Address [address] [place] [phone] Phone Care Team Providers Care Acupuncture Physician Name Role Phone Camryn Monroe MD Unavailable Unavailable Advance Directives Directive Yes / No Effective Date File Name No Information Encounters Encounter Description Practice Location Reason(s) For Visit Diagnoses Date Provider [facility], [address] [place] [address], [id number], [place] tel:[phone] No Information 2017 [address] Cowan. [address] [place] [address], [id number], [place]. tel:[phone] Family History Family Member Type Diagnosis Age At Onset No Information Payers Payer name Insurance type Covered alliance party ID Authoriza tion(s) No Information Social History Type Description Quantity Date Captured Comments Sex Male Smoking Status No Information Chief Complaint And Reason For Visit No Information History Of Present Illness Encounter Date Complaint History Of Prese nt Illness No Information Instructions Date Instruction Additional Infor mation No Information Assessments Type Assessment Date No Information
--- OUTSIDE RECORDS SUMMARY | 2024-07-30 14:04 | XMS_ITS | Encounter Summary ---
Author Organization [facility] Address [address] [place] [address] Care Team Providers Care Tub Chucker Name Role Phone Patient, Has No Pcp Or Ref Primary Care Provider Unavailable Encounter Details Date Type Department Care Team (Late st Contact Info) Description 10/05/2022 Telephone [facility] Nuclear Medicine [address] [place] [id number] Pool Rodriguez, RN Social History Tobacco Use Types Packs/Day Years Used Date Smoking Tobacco: Former Cigarettes 1 3 0 04/03/1981 - 04/03/1984 Smokeless Tobacco: Never Alcohol Use Standard Drinks/Week Comments Not Currently 0 (1 standard drink = 0.6 oz pure alcohol) former etoh abuse, last drink March 2019 Sex and Gender Information Value Date Recorded Sex Assigned at Male 07/11/2024 4:11 PM EDT Legal Sex Male 5:37 PM EDT Gender Identity Not on file Sexual Orientation Not on file documented as of this encounter Plan of Treatment Not on file documented as of this encounter Visit Diagnoses Not on filedocumented in this encounter Additional Health Concerns Infection Onset Date Last Indicated Resolved Time R/O Respiratory Virus Infection 03/04/2023 3 03/04/2023 10:10 AM EST R/O Influenza 03/04/2023 03/04/2023 03/04/2023 10: 10 AM EST COVID-19 - Suspected infection 03/04/2023 03/04/2023 03/04/2023 10:10 AM EST documented as of this encounter Care Teams Tub Chucker Relationship Specialty Start Date End Date Patient, Has No Pcp Or Ref DO NOT EDIT THIS RECORD VIA PROVIDER ON THE FLY PCP - General Student Services Counselor 07/11/24 documented as of this encounter
--- OUTSIDE RECORDS SUMMARY | 2024-07-30 14:05 | XMS_ITS | Encounter Summary ---
Author Organization [facility] Address [address] [place] [address] Care Team Providers Care Service Specialist Name Role Phone DavionmynorattilaAmari virk Primary Care Provider [phone] Encounter Details Date Type Department Care Team (Late st Contact Info) Description 02/12/2024 Lab Requisition [facility] - Main Lab [address] [facility] [place] [phone] Erasto Henry MD [address] [place] [address] [address] [place], [phone] Hypothyroidism, unspecified; Paroxysmal atrial fibrillation (CMS/HCC V24, CMS/HCC V28) Social History Tobacco Use Types Packs/Day Years [...] LAB CHEMISTRY METHOD 02/12/2024 2:17 PM EST [facility] Mean Bld Glu Estim. 151 mg/dL LAB CHEMISTRY METHOD 02/12/2024 2:17 PM EST [facility] Blood Venous blood specimen / Unknown Venipuncture / Unknown 02/12/2024 6:11 AM EST 02/12/2024 9:15 AM EST us Erasto Henry MD LAB BLOOD ORDERABLES Final Resul t Performing Organization Address City/[facility]/ZIP Co de Phone Number [facility] [address] [place] [address], * (ABNORMAL) Thyroid stimulating hormone (02/12/2024 6:11 AM EST) TSH 4.56(H) 0.40 - 4.00 mcIU/mL LAB CHEMISTRY METHOD 02/12/2024 11:52 AM EST [facility] Blood Venous blood specimen / Unknown Venipuncture / Unknown 02/12/2024 6:11 AM EST 02/12/2024 9:15 AM EST us Erasto Henry MD LAB BLOOD ORDERABLES Final Resul t [facility] [address] [place] [address], [place] [phone] * (ABNORMAL) Comprehensive metabolic panel (02/12/2024 6:11 AM EST) Sodium 141 133 - 145 mmol/L LAB CHEMISTRY METHOD 02/12/2024 11:07 AM [facility] Potassium 3.7 3.5 - 5.5 mmol/L LAB CHEMISTRY METHOD 02/12/2024 11:07 AM [facility] Chloride 107 96 - 110 mmol/L LAB CHEMISTRY METHOD 02/12/2024 11:07 AM [facility] CO2 25 21 - 32 mmol/L LAB CHEMISTRY METHOD 02/12/2024 11:07 AM [facility] Anion Gap 9 3 - 11 LAB CHEMISTRY METHOD 02/12/2024 11:07 AM [facility] Glucose 99 70 - 100 mg/dL LAB CHEMISTRY METHOD 02/12/2024 11:07 AM [facility] BUN 17 5 - 25 mg/dL LAB CHEMISTRY METHOD 02/12/2024 11:07 AM [facility] Creatinine 1.20 0.70 - 1.30 mg/dL LAB CHEMISTRY METHOD 02/12/2024 11:07 AM [facility] eGFR 68 >=60 mL/min/1. 73m2 LAB CHEMISTRY METHOD 02/12/2024 11:07 AM [facility] Comment:Calculation based on the??Chronic Kidney Disease Epidemiology Collaboration (CKD-EPI) equation refit??without adjustment for race. BUN/Creatinine Ratio 14.2 LAB CHEMISTRY METHOD 02/12/2024 11:07 AM [facility] Calcium 8.1(L) 8.5 - 10.5 mg/dL LAB CHEMISTRY METHOD 02/12/2024 11:07 AM [facility] AST (SGOT) 14 10 - 42 unit/L LAB CHEMISTRY METHOD 02/12/2024 11:07 AM [facility] ALT (SGPT) 19 10 - 60 unit/L LAB CHEMISTRY METHOD 02/12/2024 11:07 AM [facility] Alkaline Phosphatase 78 42 - 121 unit/L LAB CHEMISTRY METHOD 02/12/2024 11:07 AM [facility] Total Protein 5.9(L) 6.0 - 8.0 g/dL LAB CHEMISTRY METHOD 02/12/2024 11:07 AM [facility] Albumin 3.3 3.2 - 5.0 g/dL LAB CHEMISTRY METHOD 02/12/2024 11:07 AM [facility] Total Bilirubin 0.6 0.0 - 1.4 mg/dL LAB CHEMISTRY METHOD 02/12/2024 11:07 AM [facility] Blood Venous blood specimen / Unknown Venipuncture / Unknown 02/12/2024 6:11 AM EST 02/12/2024 9:15 AM EST us Erasto Henry MD LAB BLOOD ORDERABLES Final Resul t [facility] [address] [place] [address], * (ABNORMAL) Complete blood count (02/12/2024 6:11 AM EST) WBC 5.1 4.8 - 10.8 K/mcL LAB HEMETOLOGY METHOD 02/12/2024 11:24 AM [facility] RBC 4.10(L) 4.50 - 5.50 M/mcL LAB HEMETOLOGY METHOD 02/12/2024 11:24 AM [facility] Hemoglobin 11.9(L) 13.5 - 17.5 g/dL LAB HEMETOLOGY METHOD 02/12/2024 11:24 AM [facility] Hematocrit 36.6(L) 42.0 - 54.0 % LAB HEMETOLOGY METHOD 02/12/2024 11:24 AM EST [facility] MCV 88.4 79.0 - 98.0 FL LAB HEMETOLOGY METHOD 02/12/2024 11:24 AM EST [facility] MCH 28.7 27.0 - 32.0 pcg LAB HEMETOLOGY METHOD 02/12/2024 11:24 AM EST [facility] MCHC 32.5 32.0 - 37.0 g/dL LAB HEMETOLOGY METHOD 02/12/2024 11:24 AM EST [facility] RDW 12.9 11.0 - 15.0 % LAB HEMETOLOGY METHOD 02/12/2024 11:24 AM [facility] Platelets 85(L) 130 - 400 K/mcL LAB HEMETOLOGY METHOD 02/12/2024 11:24 AM [facility] Comment:reviewed by slide MPV 12.1(H) 7.0 - 11.0 FL LAB HEMETOLOGY METHOD 02/12/2024 11:24 AM [facility] NRBC 0.0 <1.0 % LAB HEMETOLOGY METHOD 02/12/2024 11:24 AM [facility] NRBC Absolute 0.00 <0.10 K/mcL LAB HEMETOLOGY METHOD 02/12/2024 11:24 AM [facility] Blood Venous blood specimen / Unknown Venipuncture / Unknown 02/12/2024 6:11 AM EST 02/12/2024 9:15 AM EST us Erasto Henry MD LAB BLOOD ORDERABLES Final Resul t [facility] [address] [place] [address], documented in this encounter Visit Diagnoses Diagnosis Hypothyroidism, unspecified Paroxysmal atrial fibrillation (CMS/HCC V24, CMS/HCC V28) Atrial fibrillation documented in this encounter Care Teams Service Specialist Relationship Specialty Start Date End Date Amari Vyas DO [address] [place] [phone] PCP - General Internal Medicine 11/11/20 documented as of this encounter
--- OUTSIDE RECORDS SUMMARY | 2024-07-30 14:05 | XMS_ITS | Data Portability ---
Author Organization [facility] [employer], svmg_admin Address [address] [place] [id number] Care Team Providers Care [employer] Name Role Phone ISAIAH PAYTON Referring Provider [phone] [facility] Primary Care Provider Assessment No assessment recorded. Plan of Treatment Reminders Order Date Submit Date Provider Last Modified By Organization Details Last Modified Time Details Appointments None recorded. Lab lipid panel, serum 2019 020 MARY [facility], [address] [place] [address], [id number], 0 16:07:45 CMP, serum or plasma 2019 020 MARY [facility], [address] [place] [address], [address], 0 16:07:45 magnesium, serum or plasma 2019 020 MARY [facility], [address] [place] [address], [address], 0 16:07:46 BMP, serum or plasma 2019 020 [place] [address] [facility], [address] [place] [address], [address], 0 11:23:52 Referral None recorded. Procedures None recorded. Surgeries None recorded. Imaging US, echocardio gram - 2D colorflow and Doppler, with contrast if clinically indicated per protocol. To be read by Dr. Howell [address] ([facility]), [address] [place] [address], [address], 1 11:42:05 electrocar diogram 2019 [facility], [address] [place] [address], [address], 0 11:06:51 Medication Orders acetaminop hen 500 mg capsule 2019 INTERFACE [facility] #[id number], [address], [place], [id number], 0 09:48:13 amoxicilli n 500 mg capsule 2019 [facility], [address], [place], [id number], 0 09:53:18 sotalol 80 mg tablet 2019 [id number], [address], [place], [id number], 0 09:44:36 amlodipine 2.5 mg tablet 2019 [facility], [address], [place], [id number], 0 09:44:36 lisinopril 5 mg tablet 2019 [facility], [address], [place], [id number], 0 09:48:16 Patient TargetsNo targets recorded. Patient Instructions Encounter Date Encounter Id Patient Instructions Last Modified By Organization Details Last Modified Time 06/03/2019 [id number] heart blocks: care instructions [email or web address] Not available 06/03/2019 10:06:01 sleep apnea: car e instructions mkranis Not available 06/03/2019 09:44:29 high blood pressure: care instructions mkranis Not available 06/03/2019 09:44:29 learning about high blood pressure mkranis Not available 06/03/2019 09:44:29 1. labs today 2 . BMP in 1-2 weeks 3. cont aspirin 4. back on amlidpine 2.5 5. start lisinopril 5 6. cont soatlol 7 Tylenol for pain 1-2 tab as needed every 8 hrs only as needed. 8. lipids 9. abx before dentists, I did prescribe amoxicillin for him today. I also gave him a letter to give to his dentist indicating that he may proceed with any dental procedures including teeth extraction if needed. As long as he takes his prophylactic antibiotics. 10. Depending on his lipid results will decide on if we will start him on statin such as rosuvastatin since she did not tolerate Lipitor in the past. Or if we will put him back on a fenofibrate. A total of 45 minutes were spent [id number] with the patient during this encounter and over half of that time was spent on counseling and coordination of care. We reviewed and discussed in depth the patients cardiac problems and diagnosis. Treatment plan and options discussed. [email or web address] Not available 06/03/2019 12:41:46 Reason for Referral None Reported. Results Created Date Observation Date Name Description Value Unit Range Abnormal Flag Note LastModifiedBy Organization Detail LastModifiedTime 06/03/1906/03/2019 CMP, serum or plasm a glucose 127 mg/dL 65-99 above high normal Not Available [facility] ([facility]) [address] [place], [address], 06/03/2019 16:07:45 06/03/1906/03/2019 CMP, serum or plasm a BUN 21 mg/dL 6-24 Not Available [facility] ([facility]) [address] [place], [address], 06/03/2019 16:07:45 06/03/1906/03/2019 CMP, serum or plasm a creatinine 1.30 mg/dL 0.76-1 .27 above high normal Not Available [facility] ([facility]) [address] [place], [address], 06/03/2019 16:07:45 06/03/19 20 06/03/2019 CMP, serum or plasm a eGFR if nonafricn AM 61 mL/mi n/1.7 3 >59 Not Available [facility] ([facility]) [address] [place], [address], 06/03/2019 16:07:45 06/03/19 20 06/03/2019 CMP, serum or plasm a eGFR if africn AM 70 mL/mi n/1.7 3 >59 Not Available [facility] ([facility]) [address] [place], [address], 06/03/2019 16:07:45 06/03/19 20 06/03/2019 CMP, serum or plasm a BUN/creatini ne ratio 16 9-20 Not Available [facility] ([facility]) [address] [place], [address], 06/03/2019 16:07:45 06/03/19 20 06/03/2019 CMP, serum or plasm a sodium 139 mmol/ L 134-14 4 Not Available [facility] ([facility]) [address] [place], [address], 06/03/2019 16:07:45 06/03/19 20 06/03/2019 CMP, serum or plasm a potassium 4.8 mmol/ L 3.5-5. 2 Not Available [facility] ([facility]) [address] [place], [address], 06/03/2019 16:07:45 06/03/19 20 06/03/2019 CMP, serum or plasm a chloride 102 mmol/ L 96-106 Not Available [facility] ([facility]) [address] [place], [address], 06/03/2019 16:07:45 06/03/19 20 06/03/2019 CMP, serum or plasm a carbon dioxide, total 23 mmol/ L 20-29 Not Available [facility] ([facility]) [address] [facility] [place] [place], [address], 06/03/2019 16:07:45 06/03/19 20 06/03/2019 CMP, serum or plasm a calcium 8.9 mg/dL 8.7-10 .2 Not Available [facility] ([facility]) [address] [facility] [place] [place], [address], 06/03/2019 16:07:45 06/03/19 20 06/03/2019 CMP, serum or plasm a protein, total 6.8 g/dL 6.0-8. 5 Not Available [facility] ([facility]) [address] [facility] [place] [place], [address], 06/03/2019 16:07:45 06/03/19 20 06/03/2019 CMP, serum or plasm a albumin 4.2 g/dL 3.8-4. 9 Not Available [facility] ([facility]) [address] [place], [address], 06/03/2019 16:07:45 06/03/19 20 06/03/2019 CMP, serum or plasm a globulin, total 2.6 g/dL 1.5-4. 5 Not Available [facility] ([facility]) [address] [facility] [place], [address], 06/03/2019 16:07:45 06/03/19 20 06/03/2019 CMP, serum or plasm a A/G ratio 1.6 1.2-2. 2 Not Available [facility] ([facility]) [address] [place], [address], 06/03/2019 16:07:45 06/03/1906/03/2019 CMP, serum or plasm a bilirubin, total 0.7 mg/dL 0.0-1. 2 Not Available [facility] ([facility]) [address] [place], [address], 06/03/2019 16:07:45 06/03/19 20 06/03/2019 CMP, serum or plasm a alkaline phosphatase 84 IU/L 39-117 Not Available [facility]) [address] [facility] [place], [address], 06/03/2019 16:07:45 06/03/19 20 06/03/2019 CMP, serum or plasm a AST (SGOT) 15 IU/L 0-40 Not Available [facility] ([facility]) [address] [facility] [place], [address], 06/03/2019 16:07:45 06/03/19 20 06/03/2019 CMP, serum or plasm a ALT (SGPT) 13 IU/L 0-44 Not Available [facility] ([facility]) [address] [place], [address], 06/03/2019 16:07:45 06/03/19 20 06/03/2019 lipid panel , serum cholesterol, total 207 mg/dL 100-19 9 above high normal Not Available [facility] ([facility]) [address] [place], [address], 06/03/2019 16:07:45 06/03/19 20 06/03/2019 lipid panel , serum triglyceride s 118 mg/dL 0-149 Not Available [facility] ([facility]) [address] [place], [address], 06/03/2019 16:07:45 06/03/19 20 06/03/2019 lipid panel , serum HDL cholesterol 56 mg/dL >39 Not Available [facility] ([facility]) [address] [place], [address], 06/03/2019 16:07:45 06/03/19 20 06/03/2019 lipid panel , serum VLDL cholesterol joanne 24 mg/dL 5-40 Not Available [facility] ([facility]) [address] [place], [address], 06/03/2019 16:07:45 06/03/19 20 06/03/2019 lipid panel , serum LDL cholesterol calc 127 mg/dL 0-99 above high normal Not Available [facility] ([facility]) [address] [place], [address], 06/03/2019 16:07:45 06/03/19 20 06/03/2019 lipid panel , serum 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 3 Not Available [facility] ([facility]) [address] [facility], [place], [address], 06/03/2019 16:07:46 05/10/19 20 05/10/2019 SPECT , myoca rdial perfu manuel, multi ple [facility] Depart ment of Radiol [address], [address] Name: BROOKE MATTHEW : [birth year]10 Date of Servic e: 1016 Acct Number : [id number] Order Number : [id number] Locati on: [facility] Report Number : [id number] Servic e: ADM Navi/ME D Reques ting Physic courtney: Krys Scott th A Catego ry: NUCLEA R MEDICI NE Exam: MYOCAR D PERF CLARITZA MULTI Access ion #: [id number] VH Signs/ Sympto ms: CHEST PAIN Report Status : Sig kayli Myocar dial Perfus ion Imagin g with Stress Gated SPECT and Rest SPECT Images Isotop e: Tc-99m Tetrof awilda; 27mCi stress and 9mCi rest doses. Proced ure: At rest, Tc-99m Tetrof awilda was inject ed and SPECT imagin g was perfor med. Lexisc an was admini stered intrav enousl y follow ing which the patien t perfor med hand-g rip exerci se during which Tc-99m Tetrof awilda was inject ed. Gated SPECT imagin g was perfor med. Scinti graphi c Findin gs: Images obtain ed follow ing pharma cologi c and physio logic stress demons trate decrea sed anteri or and apical activi ty. Images obtain ed at rest demons trate decrea sed anteri or and apical activi ty. The ejecti on fracti on is 48%. Region al wall motion is abnorm al with mild hypoki nesis. The left ventri cular end diasto lic volume is 116ml. The transi ent ischem ic dilata tion index is 1.04. The lung heart ratio is 0.33. Impres manuel: There is no eviden ce of ischem ia. Apical and anteri or myocar dial infarc tion cannot be exclud ed, this is someti mes a normal varian t in a bundle -branc h block. Global left ventri cular functi on is low normal . Region al wall motion is abnorm al septal hypoki nesis. The left ventri cular end-di astoli c volume is normal . The transi ent ischem ic dilata tion index is normal . The lung heart ratio is normal . 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 Interp reting Cardio logist : Baldomero Hood DO, [facility] Date/T mrieille of Dictat ion: 1302 Radiol ogy Reside nt (if applic able): Approv ed By Attend ing Radiol ogist: Jo Arreaga DO 1302 Orderi ng physic courtney: Krys lemus Sonia Other provid ers: Juan Monk, UNKNOW N, Octavio allen, UNKNOW N, , , [email or web address] [facility] (Radiology) [address] [place] [address], [address], 05/10/2019 13:55:43 05/23/19 20 05/23/2019 elect daniel seymour am [facility] [address] [place] [address] PATIEN T: BROOKE MATTHEW DEP ER/ : WER 3810 HEART RATE 87 RR Interv al 690 Atrial Rate 87 P-R Interv al 220 P Durati on 112 P Horizo ntal Munger -22 P Front Munger 85 Q Onset 502 QRSD Interv al 173 QT Interv al 427 QTcB 514 QTcF 483 QRS Horizo ntal Munger QRS Munger 100 I-40 Horizo ntal Munger 26 I-40 Front Munger 17 T-40 Horizo ntal Munger 167 T-40 Front Munger 171 T Horizo ntal Munger -8 T Wave Munger 45 S-T Horizo ntal Munger 2 S-T Front Munger 43 ECG Severi ty - ABNORM AL ECG - ECG Impres manuel Sinus rhythm ECG Impres manuel FIRST DEGREE AV BLOCK ECG Impres manuel RBBB _ (Elect sandra grant Signed by) Trans D T: 1352 Signed D T: 5 Report #: [id number] Orderi ng physic courtney: Room Emerge ncy Other provid ers: Room Emerge ncy, , , Malorie Hall , , , [email or web address] [facility] (Radiology) [address] [place] [address], [address], 05/25/2019 13:45:46 05/29/19 20 05/26/2019 pharm acolo gic nucle ar stres s test [facility] t Hospit al [address] [place] [phone] PATIEN T: BROOKE MATTHEW DIS Navi/ME D 3810 W22S : Non-In vasive Cardio logy Ksenia cruz ___ DATE OF SERVIC E: 2019 PHARMA COLOGI C STRESS INDICA TION: Chest pain. REFERR ING PHYSIC COURTNEY: Octavio allen M.D. INTERP RETING CARDIO LOGIST : Tre Howell D.O for this EKG portio n of the test. SUPERV ISING PRACTI TIONER : Valeriy pena PA-C. BASEL NE DATA: The patien t is 69 inches tall, weighs 239 pounds . Maximu m predic devendra heart rate is 163 beats per minute . Baseli ne EKG demons trates normal sinus rhythm with right bundle -branc h block, heart rate 69 beats per minute , blood pressu re 140/73 mmHg, oxygen satura tion at [facility] ne is 97% on room air. The patien t was assess ed by the practi tioner and deemed approp riate for testin g. Inform ed constonia t was discus sed with the patitonia t and signed by the patien t. TEST DATA: The patien t receiv ed Lexisc an 0.4 mg infuse d intrav enousl y by protoc ol follow ed by 1 minute of handgr ip exerci ses. Peak heart rate 85 beats per minute , which is 52% of the maximu m predic devendra heart rate. Peak blood pressu re 141/83 mmHg. Test termin ated due to comple tion of protoc ol. EKG demons trates sinus rhythm with contin uation of the right bundle -branc h block, no change in morpho logy. There was no angina . There was a rare PVC. CONCLU SIONS: 1. No ischem ic EKG change s with Lexisc an. 2. No angina . 3. Rare PVC. 4. Physio logic data is uninte rpreta ble with Lexisc an admini strati on. 5. Nuclea r myocar dial perfus ion images to follow and to be report ed separa tely. Electr onical ly Authen ticate d By: Tre Howell DO 2019 10:32 P ____ Tre Howell DO es DD: 2019 TD: 11:36 A DT: 2019 TT: 04:25 P Doc #: [id number] cc: MD Tre Sosa , DO Bry whipple, D.O. Orderi ng physic courtney: Other provid ers: Bry whipple, UNKNOW N, Octavio allen, UNKNOW N, Octavio allen, Tre Howell , Bry whipple [email or web address] [facility] (Radiology) [address], [place], [address], 06/03/2019 11:29:21 05/31/19 20 05/23/2019 XR, chest No observ ation record ed. Not Available 2019 10:10:46 05/31/19 20 05/23/2019 CT, brain , w/o contr ast No observ ation record ed. Not Available 2019 10:11:27 05/31/19 20 05/23/2019 CT, cervi joanne spine , w/o contr ast No observ ation record ed. Not Available 2019 10:12:04 05/31/19 20 05/09/2019 XR, chest No observ ation record ed. Not Available 2019 10:12:28 05/31/19 20 09/05/2016 CT, abdom en + pelvi s, w/ contr ast No observ ation record ed. Not Available 2019 10:13:10 05/31/19 20 09/05/2016 XR, chest No observ ation record ed. Not Available 2019 10:13:35 05/31/19 20 09/07/2016 XR, thora colum bar spine , 2 or 3 view No observ ation record ed. Not Available 2019 10:14:34 05/31/19 20 05/10/2019 pharm acolo gic nucle ar stres s test No observ ation record ed. Not Available 2019 10:22:04 05/31/19 20 05/11/2019 US, echoc ardio gram, trans thora cic, compl ete No observ ation record ed. Not Available 2019 10:22:36 05/31/19 20 05/09/2019 elect daniel seymour am No observ ation record ed. Not Available 2019 10:22:56 05/31/19 20 05/15/2019 XR, chest No observ ation record ed. Not Available 2019 10:25:49 05/31/19 20 06/15/2011 XR, chest No observ ation record ed. Not Available 2019 10:26:19 05/31/19 20 02/02/2011 XR, chest No observ ation record ed. [email or web address] Not Available 2019 10:26:59 05/31/19 20 03/23/2011 tilt table study (PROC ) No observ ation record ed. [email or web address] Not Available 2019 10:27:44 05/31/19 20 05/15/2019 elect daniel seymour am inter preta tion* No observ ation record ed. [email or web address] Not Available 2019 10:28:33 06/03/19 elect daniel seymour am No observ ation record ed. [email or web address] [facility] [address] [place] [address], [address], 06/11/2019 15:13:57 07/01/19 20 06/11/2019 XR, chest No observ ation record ed. BARCODE Not Available 2019 13:41:08 07/01/19 20 06/22/2019 CT, abdom en + pelvi s, w/o contr ast No observ ation record ed. BARCODE [address], [address], 07/01/2019 13:41:08 07/27/19 21 07/26/2020 elect daniel seymour am [facility] [address] [address] PATIEN T: JOSE Long,HENR Y ADM Navi/ME D : W22S 3810 HEART RATE 65 RR Interv al 923 Atrial Rate 65 P-R Interv al 230 P Durati on 116 P Horizo ntal Munger -22 P Front Munger 93 Q Onset 499 QRSD Interv al 179 QT Interv al 494 QTcB 514 QTcF 507 QRS Horizo ntal Munger QRS Munger 109 I-40 Horizo ntal Munger 22 I-40 Front Munger 14 T-40 Horizo ntal Munger 181 T-40 Front Munger 158 T Horizo ntal Munger -14 T Wave Munger 71 S-T Horizo ntal Munger -5 S-T Front Munger 68 ECG Severi ty - ABNORM AL ECG - ECG Impres manuel Sinus rhythm ECG Impres manuel FIRST DEGREE AV BLOCK ECG Impres manuel RBBB _ (Elect sandra burns Signed by) Trans D T: 0658 Signed D T: 1040 Report #: [id number] Orderi ng physic courtney: Juan Monk Other provid ers: Juan Monk, Ermelinda gonzales, Ermelinda gonzales, FARSHAD N, , , [email or web address] [facility] (Radiology) [address] [place] [address], [address], 07/27/2020 08:34:06 07/27/19 21 07/25/2020 elect daniel seymour am [facility] t Hospit al [address] [place] [address] PATIEN T: BROOKE MATTHEW Y ADM Navi/ME D : W22S 3810 HEART RATE 69 RR Interv al 870 Atrial Rate 70 P-R Interv al P Durati on 122 P Horizo ntal Munger P Front Munger Q Onset 505 QRSD Interv al 179 QT Interv al 472 QTcB 506 QTcF 494 QRS Horizo ntal Munger 67 QRS Munger 104 I-40 Horizo ntal Munger 16 I-40 Front Munger 29 T-40 Horizo ntal Munger 158 T-40 Front Munger 185 T Horizo ntal Munger -29 T Wave Munger 74 S-T Horizo ntal Munger -30 S-T Front Munger 53 ECG Severi ty - ABNORM AL ECG - ECG Impres manuel Sinus rhythm ECG Impres manuel First degree AV block ECG Impres manuel RBBB _ (Justin burns Signed by) Trans D T: 1311 Signed D T: 1043 Report #: [id number] Orderi ng physic courtney: Michael hernandez Other provid ers: Juan Monk, Ermelinda gonzales, Ermelinda gonzales, UNKNOW N, , , [email or web address] [facility] (Radiology) [address] [place] [address], [address], 07/27/2020 08:36:28 04/21/19 22 03/13/2021 ICD remot e inter rogat ion (PROC ) No observ ation record ed. [email or web address] Not Available 04/21 18:41:45 Result Notes None recorded. Problems Name Problem SNOMED Code Status Onset Date Resolution Date Notes Provider Name and Address Organization Details Recorded Time Hyperlipid emia 59853130 Active 2019 Coni Reynolds [facility] 0 10:18:02 Gout 65624422 Active 2019 Coni diggs [facility] 0 10:18:11 Atrial fibrillati on 17855568 Active 2019 Coni Reynolds [facility] 0 10:18:18 Cardiac pacemaker in situ 398408200 Active 2019 [facility]ICD Coni diggs [facility] 0 10:23:43 Gastroesop hageal reflux disease 008125730 Active 2019 Coni Pandeyvais [facility], [facility] 0 10:18:33 Clostridiu m difficile colitis 881760533 Active 2019 Coni Pandeyvais [facility], [facility] 0 10:18:57 Diabetes mellitus 28086768 Active 2019 diet controlled Coni Reynolds [facility] 0 10:19:27 Hypothyroi dism 06099294 Active 2019 Coni Pandeyvais [facility], [facility] 0 10:19:47 Asthma 786662517 Active 2019 Coni Pandeyvais [facility] 0 10:20:06 Hypertensi ve disorder 38935239 Active 2019 Coni Pandeyvais [facility] 0 10:20:35 Coronary arterioscl erosis 14878964 Active 2019 Coni Pandeyvais [facility] 0 10:20:42 Mood disorder 44635944 Active 2019 Coni Pandeyvais [facility] 0 10:20:55 Benign prostatic hyperplasi a 856632096 Active 2019 Coni Pandeyvais [facility] 0 10:21:07 Anxiety 21791521 Active 2019 Coni Gail [facility] 0 10:21:19 Migraine 77672816 Active 2019 Coni Gail [facility] 0 10:23:01 Obstructiv e sleep apnea syndrome 35660896 Active 2019 Coni Gail [facility] 0 10:24:35 Problem Notes None recorded. Procedures Surgical History Date Name Laterality Status Provider Name and Address Organization Details Recorded Time 05/20/19 17 Aicd, dual chamber [facility] 06/03/2019 11:09:09 06/13/19 09 [facility] 11:13:13 05/05/19 07 Other [facility] 06/03/2019 11:22:53 repair of tetralogy of Fallot completed Coni Pandeyvais [facility] 05/29/2019 10:08:25 Appendectomy completed Coni Gail [facility] 05/29/2019 10:08:33 coronary artery bypass graft completed [facility] 05/29/2019 10:24:05 Imaging Results Imaging Date Name Status LastModified by Organization Details LastModified Time 05/10/2019 SPECT, myocardial perfusion, multiple completed [email or web address] [facility] (Radiology) [address] [place] [address], [address], 05/10/2019 13:55:43 05/23/2019 electrocardiogram completed [address] (Radiology) [address] [place] [address], [address], 05/25/2019 13:45:46 05/26/2019 pharmacologic nuclear stress test completed [address] (Radiology) [address] [place] [address], [address], 06/03/2019 11:29:21 05/23/2019 XR, chest completed Information no t available 05/31/2019 10:10:46 05/23/2019 CT, brain, w/o contrast completed Information not available 05/31/2019 10:11:27 05/23/2019 CT, cervical spine, w/o contrast completed Information not available 05/31/2019 10:12:04 05/09/2019 XR, chest completed Information no t available 05/31/2019 10:12:28 09/05/2016 CT, abdomen + pelvis, w/ contrast completed Information not available 05/31/2019 10:13:10 09/05/2016 XR, chest completed Information no t available 05/31/2019 10:13:35 09/07/2016 XR, thoracolumbar spine, 2 or 3 view completed Information not available 05/31/2019 10:14:34 05/10/2019 pharmacologic nuclear stress test completed Information not available 05/31/2019 10:22:04 05/11/2019 US, echocardiogram, transthoracic, complete completed Information not available 05/31/2019 10:22:36 05/09/2019 electrocardiogram completed Informa tion not available 05/31/2019 10:22:56 05/15/2019 XR, chest completed Information no t available 05/31/2019 10:25:49 06/15/2011 XR, chest completed Information no t available 05/31/2019 10:26:19 02/02/2011 XR, chest completed Information no t available 05/31/2019 10:26:59 03/23/2011 tilt table study (PROC) completed Information not available 05/31/2019 10:27:44 05/15/2019 electrocardiogram interpretation* completed Information not available 05/31/2019 10:28:33 06/03/2019 electrocardiogram completed [email or web address] [facility] [address] [place] [address], [address], 06/11/2019 15:13:57 06/11/2019 XR, chest completed BARCODE Information no t available 07/01/2019 13:41:08 06/22/2019 CT, abdomen + pelvis, w/o contrast completed BAR[facility] [address], [address], 07/01/2019 13:41:08 07/26/2020 electrocardiogram completed [email or web address] [facility] (Radiology) [address] [place] [address], [address], 07/27/2020 08:34:06 07/25/2020 electrocardiogram completed [email or web address] [facility] (Radiology) [address] [facility] [place], [address], 07/27/2020 08:36:28 03/13/2021 ICD remote interrogation (PROC) completed [email or web address] Information not available 04/21/2021 18:41:45 Procedure Notes None recorded. Medical Equipment None Reported. Allergies Allergen ID Allergen Name Allergen Category Reaction Reaction Severity Criticality Documentation Date Start Date Code Code System Note Provider Name and Address Organization Details Recorded Time [id number] Lipitor medicatio n hives Not available Not available 05/29/2019 85702 5 RxNorm Coni diggs [facility] 0 10:17:26 [id number] honey bee venom medicatio n Not available Not available Not available 05/29/2019 83031 7 RxNorm Coni diggs [facility] 0 10:25:46 Medications Name Sig Start Date Stop Date Status Note LastModified by Organization Details LastModified Time amoxicill in 500 mg capsule 4 tab capsules = 2000mg PO 1 hr before dental work or cleaning s 2019 active Not Available Not Available Not Avai lable metoprolo l succinate ER 50 mg tablet,ex tended release 24 hr Take 1 tablet every day by oral route. 06/02 completed Not Available Not Available Not Available sotalol 80 mg tablet Take 1 tablet twice a day by oral route. 2019 active Not Available Not Available Not Avai lable amlodipin e 2.5 mg tablet Take 1 tablet every day by oral route. 2019 active Not Available Not Available Not Avai lable hydroxyzi ne HCl 50 mg tablet Take 1 tablet 4 times a day by oral route. 06/02 completed Not Available Not Available Not Available levothyro xine 75 mcg tablet Take 1 tablet every day by oral route. active Not Available Not Available No t Available oxycodone -acetamin ophen 5 mg-325 mg tablet Take 1 tablet every 6 hours by oral route as needed. 06/02 completed for breakthr ough pain Not Available Not Available Not Available tamsulosi n 0.4 mg capsule Take 1 capsule every day by oral route. active Not Available Not Available No t Available gemfibroz il 600 mg tablet Take 1 tablet every day by oral route. 06/02 completed Not Available Not Available Not Available paroxetin e 20 mg tablet Take 1 tablet every day by oral route. 06/02 completed Not Available Not Available Not Available ibuprofen 200 mg tablet Take 1 tablet every 8 hours by oral route as needed. 06/02 completed Not Available Not Available Not Available omeprazol e 20 mg capsule,d elayed release Take 1 capsule twice a day by oral route. 06/02 completed Not Available Not Available Not Available monteluka st 10 mg tablet Take 1 tablet every day by oral route at bedtime. 06/02 completed Not Available Not Available Not Available ranitidin e 150 mg capsule Take 1 capsule every day by oral route. 06/02 completed Not Available Not Available Not Available lisinopri l 5 mg tablet Take 1 tablet every day by oral route. 2019 active Not Available Not Available Not Avai lable Aspir-81 mg tablet,de layed release Take 1 tablet every day by oral route. 2019 active Not Available Not Available Not Avai lable Imitrex 25 mg tablet Take by oral route as directed . 06/02 completed one tablet at the onset of migraine headache may repeat dose after 2hrs up to max of 2 doses Not Available Not Available Not Available acetamino phen 500 mg capsule 1-2 tablets every 8 hours as needed for pain 2019 active Not Available Not Available Not Avai lable Depakote 500 mg tablet,de layed release Take 1 tablet every day by oral route in the morning. 06/02 completed and 750mg in the evening Not Available Not Available Not Available febuxosta t 80 mg tablet Take 1 tablet every day by oral route. 06/02 completed Not Available Not Available Not Available Vitals Date Recorded Body weight Body mass index (BMI) Body height Systolic blood pressure Diastolic blood pressure Provider Name and Address Organization Details Last Updated DateTime 06/03/2019 777260.7 6 g 35.6 kg/m2 175.26 cm 154 mm[Hg] 100 mm[Hg] Christophe Saldivar [facility] 0 09:19:11 Date Recorded Body height Provider Name an d Address Organization Details Last Updated DateTime 08/09/2019 175.26 cm Andreia Denise RUST 08/09/2019 12:48:10 Social History Question Answer Notes LastModified by Organizat ion Details LastModified Time Tobacco Smoking Status Never Smoker Coni Reynolds dontae [facility] 05/29/2019 10:15:04 What Is Your Level Of Alcohol Consumption? None Pt Used To Be An Alcoholic , Information not available 05/29/2019 What Is Your Level Of Caffeine Consumption? Moderate [email or web address] Information not available 06/03/2019 How Much Tobacco Do You Chew? None Information not available 05/29/2019 What Type Of Diet Are You Following? CARDIAC Information not available 05/29/2019 Do You Or Have You Ever Used E-cigarettes Or Vape? Never Used Electronic Cigarettes [email or web address] Information not available 06/03/2019 What Is Your Occupation? Disabled Information not available 05/29/2019 Cups/cans Per Day: 1 [email or web address] Information not available 06/03/2019 Illicit Drug Use? No Information not available 05/29/2019 Does The Patient Have Fever And Cough Or Shortness Of Breath AND In The Last 14 Days Has The Patient Come In Contact With Someone With Confirmed 2019-nCoV? No Information not available 06/03/2019 How Many Children Do You Have? 0 [email or web address] Information not available 06/03/2019 Do You Or Have You Ever Used Smokeless Tobacco? Never Used Smokeless Tobacco [id number] Information not available 06/03/2019 How Much Tobacco Do You Smoke? No Information not available 05/29/2019 Sex: Unknown Functional Status None recorded. Mental Status None recorded. Family History Relationship Description Onset Age of this Age Resolved Age Notes LastModified by Organization Details LastModified Time Mother Heart disease Not available 2019 10:15:57 Mother Family history of stroke Not available 2019 10:16:21 Brother Chronic obstructive pulmonary disease Not available 2019 10:16:35 Sister Diabetes mellitus Not available 2019 10:16:49 Father Malignant tumor of penis passed Not available 2019 10:17:04 Medical History No medical history recorded. Past Encounters Encounter ID Performer Location Encounter Start Date Encounter Closed Date Diagnosis/Indication Diagnosis SNOMED-CT Code Diagnosis ICD10 Code Diagnosis Note [id number] Tre Howell DO [facility] [address], [address] [place] [address] 06/03/2019 08:26:27 06/03/2019 10:11:27 Tetralogy of Fallot 64616535 Q21.3 He has hx of tetrology of fallot repaired. Doesn't he's had surgery for this doesn't recall specific details. He has seen Dr Vinicio Cordero at [facility] from what he tells me. I will try to obtain those records. His echo of May 2019 shows RVE, normal LVEF, mild MR. RVE expected with Tetralogye trology of fallot.He has mild PI and no sig PS. The PASP could not be evaluated. He should continue to practice antibiotic prophylaxi s before the dentist. He is seen the dentist sooner prescribed antibiotic s Addenum: rom notes we received from Dr Cordero. he underwent Julia-Ta ussig shunt in past. He has history of chronic chest pain syndrome and normal cardiac cath in the past. His ICD was placed for VT. Obstructiv e sleep apnea syndrome 88717658 G47.33 Weight loss advised. He has obstructiv e sleep apnea. He states he seeing someone get set back up with CPAP. I spent mL (especiall y with history of glycogen heart disease to treat his obstructiv e sleep apnea. Precordial pain 50382638 R07.2 Chest pains when he was hospitaliz ed in May 2019. They seem to be more muscular in nature. They were reproducib le. He seems to have a chronic chest pain syndrome. Nuclear stress at the time May 2019. Showed no ischemia. He can use Tylenol As needed. Aortic aneurysm 98015047 I71.9 echo May 2019 a root 4.2 cm AA 4.0 cm BP control as above and echo one year Essential hypertension 19678046 I10 Blood pressure today is elevated.jorge virk states off meds 2 days He previously been on amlodipine 2.5 mg daily. I will represcrib ed this for him. In addition to following a low sodium diet and weight loss. I'm also going to start him on lisinopril BMP in 1 week. 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 He has an ICD in place looks like is a history of ventricula r tachycardi a from what he tells me. Device was interrogat ed today does have some occasional few beats of nonsustain ed VT does meet his device has shocked him in the past but nothing recent His EKG today he has an underlying right bundle-bra nch block. Adjusting for his wide complex with a right bundle-bra nch block his QTC is about 423 ms which is within acceptable limits. Will keep an i on his device we will be setting him up with remote monitoring . If he does have more frequent runs or longer runs of ventricula r tachycardi a where he does get a shock. We'll consider increasing his sotalol if needed in the future. I will check magnesium level today as well in addition to his potassium level. He may replete if needed Mixed hyperlipidemia 267 290517 E78.2 Has history of hyperlipid emia. He tells me that Lipitor gave him hives and was under the resolve which he liked a lot. Recently he was prescribed . Her neck. He is out of this right now. I'll be checking his lipids. I'll reassess lipids and I will make a decision on whether or not we'll need to reinstitut e a fibroid or if he would do better with a statin. I talked to him about maybe trying rosuvastat in if needed he was agreeable to this should his lipid profile showed that he would benefit from a statin. 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 Common finding in patient with congenital underlying heart disease. Automatic implantable cardiac defibrillator in situ [id number] Z95.810 America Castaneda dual-chamb er ICD in place. I interrogat ed her device today. Occasional few beats of nonsustain ed VT. But no recent shocks. Device is otherwise functionin g well. We will take over monitoring his device. We will request transfer of monitoring his device from his primary cardiologi st and they state. Health Concerns Section Related Observation LastModified by Organization Detai ls LastModified Time None Recorded Concern Status LastModified by Organization Details LastModified Time None Recorded Advance Directives Directive N: HCP: Megha Aguayo Payers Encounter Date Sequence Insurance Name Policy Number Policy Tapia Covered Member ID Taipa Member ID Guarantor Name 06/03/2019 1 [facility] - DOS PRIOR TO 2022 - DUAL ELIGIBLE (MEDICARE REPLACEMENT/AD VANTAGE - HMO) Joaquín Barrientos [id number] Joaquín Barrientos Notes Date Note Type Note Provider Name and Address Organization Details Recorded Time 06/03/2019 text/html 59 male. Hx of Tetrology of Fallot. Has Stude ICD and hx of ?VT. He moved here from . Living in Sober house here. Used follow with Saulo Nix at [facility].and Vinicio Cordero at [facility] He was in hosp few weeks ago for chest pain which was musucule in nature. He ahd stress test showing no ischemia, He does have some chronic windedness as well. He hax hx of asthma as well. IN hospital he had nuc stress showing no ischemia. Echo showing LVEF 605, RVE, mild MR, mild AI no . He states he has PONCE and is seeing pulm for this very soon. He has hx of depression and suicaial ideations but this has bene better of late and he is feeling much better now.Going to [facility] now as well. He denies CP. he has bene off his BP meds for last 2 days. No syncope no palpitations. Tre Howell, DO [address] [place], [address], [place] - [facility]. 06/04/2019 13:52:59
--- OUTSIDE RECORDS SUMMARY | 2024-07-30 14:05 | XMS_ITS | Encounter Summary ---
Author Organization [facility] Address [address] [place] [address] Care Team Providers Care Housing Assistant Property Manager Name Role Phone Amari Vyas DO Primary Care Provider [phone] Encounter Details Date Type Department Care Team ([facility] st Contact Info) Description 02/27/2024 Lab Requisition [facility] - Main Lab [address] [facility] [place] [phone] Erasto Henry MD [address] [place] [address], [phone] Essential (primary) hypertension Social History Tobacco [...] hypertension documented in this encounter Care Teams Housing Assistant Property Manager Relationship Specialty Start Date End Date Amari Vyas DO [address] [place] [phone] PCP - General Internal Medicine 11/11/20 documented as of this encounter
--- OUTSIDE RECORDS SUMMARY | 2024-07-30 14:05 | XMS_ITS | Referral Summary ---
Author Organization [facility] Address [address] [place] [address] Care Team Providers Care Alley Cleaner Name Role Phone Patient, Has No Pcp Or Ref Primary Care Provider Unavailable Encounters Date Type Department Care Team Description 07/11/2024 9:51 PM EDT - 07/12/2024 2:59 AM EDT Emergency [facility] Emergency Department [address] [place] [id number] Grant Cox MD Chest pain, unspecified type (Primary Dx) Discharge Disposition: Home or Self Care (01) from Last 3 Months Allergies Active Allergy Reactions Criticality Noted Date Comments Atorvastatin Rash,Dyspnea,Hives High 01/10/2008 Bee Sting Kit Dyspnea High 05/22/2019 Peas Anaphylaxis,Dyspnea,Hives High 01/10/2008 Medications * This document contains information received from the source organization and may not represent a complete record from that organization. levothyroxine (SYNTHROID, LEVOTHROID) 75 mcg tablet Take 1 tablet (75 mcg total) by mouth daily. 90 tablet 08/20/2019 12:52 PM EDT 0 Active acetaminophen (TYLENOL) 325 mg tablet Take 2 tablets (650 mg total) by mouth every 6 hours as needed for pain. 0 Active nitroglycerin (NITROSTAT) 0.[address] 1 tablet (0.4 mg total) under the tongue every 5 minutes as needed for chest pain. If no relief after 3 doses, call 911. 0 Active melatonin 5 mg tablet Take 5 mg by mouth nightly. Active hydrOXYzine (ATARAX) 50 mg tablet Take 50 mg by mouth 2 times a day as needed for anxiety. Active rivaroxaban (XARELTO) 20 mg tablet Take 20 mg by mouth once a day. Active sotalol (BETAPACE) tablet 80 mg Take 80 mg by mouth 2 times a day. Active tamsulosin (FLOMAX) 0.4 mg capsule Take 0.4 mg by mouth once a day. Active gabapentin (NEURONTIN) 300 mg capsule Take 300 mg by mouth 2 (two) times a day. Active Tums 200 mg calcium (500 mg) chewable tablet Chew and swallow 500 mg by mouth every 4 hours as needed for indigestion or heartburn. 3 Active EPINEPHrine (EPIPEN) 0.3 mg/0.3 mL injection syringe Inject 0.3 mg into the shoulder, thigh, or buttocks muscle as directed once daily as needed for anaphylaxis. 0 Active escitalopram (LEXAPRO) 10 mg tablet Take 20 mg by mouth once a day. 3 Active ezetimibe (ZETIA) 10 mg tablet Take 10 mg by mouth daily. 3 Active isosorbide mononitrate ER (IMDUR) 30 mg tablet Take 30 mg by mouth daily. 3 Active aluminum-magnesi um hydroxide-simeth icone (MAALOX) 200-200-20 mg/5 mL suspension Take 30 mL by mouth every 6 hours as needed for indigestion or heartburn. 3 Active metFORMIN (GLUCOPHAGE) 500 mg tablet Take 500 mg by mouth 2 times a day with meals. [address] (PROTONIX) 40 mg tablet Take 40 mg by mouth daily. 3 Active risperiDONE (RisperDAL) 1 mg tablet Take 1.5 mg by mouth nightly. 3 Active QUEtiapine (SEROquel) 100 mg tablet Take 100 mg by mouth nightly. Active traMADoL (ULTRAM) 50 mg tablet Take 50 mg by mouth every 6 hours as needed for pain. Active aspirin chewable tablet 81 mg Chew and swallow 81 mg by mouth once a day. Active ondansetron (ZOFRAN) 4 mg tablet Take 4 mg by mouth every 8 hours as needed for nausea or vomiting. Active lidocaine (LIDODERM) 5% patch Apply 1 patch topically to the affected area once a day. Remove and discard patch within 12 hours or as directed. 3 Active traZODone (DESYREL) 50 mg tablet Take 1 tablet (50 mg total) by mouth nightly as needed for sleep. 30 tablet 3 Active Active Problems Problem Noted Date Diagnosed Date Acute neck pain 03/14/2023 Assessment & Plan (03/17/2023 1:23 PM EST): Patient has had multiple falls including the [...] C-collar re-evaluation by Orthopedic surgery for clearance Thrombocytopenia 03/05/2023 Assessment & Plan (03/17/2023 1:23 PM EST): Chronic thrombocytopenia with unclear etiology. No bleeding history. Holding rivaroxaban currently. Essentially stable during this hospitalization. - Monitor CBC Fall, initial encounter 03/04/2023 Anxiety 10/04/2022 Assessment & Plan (03/04/2023 4:15 PM EST): C/W Quetiapine and trazodone Assessment & Plan (10/04/2022 4:14 PM EDT): - hydroxyzine 25 mg 3 times a day PRN - daily ECG to monitor QT interval (since on sotalol) Atypical chest pain 10/03/2022 Assessment & Plan (10/04/2022 4:19 PM EDT): Patient presenting with atypical chest pain. States that he felt a kick in his chest on Monday night, for which he presented to the emergency room at [facility]. He was discharged from the emergency room, later that same night he started noticing chest pressure radiating to his left ribs around 1 AM last night. He was supposedly on his way to the [facility] when his chest pressure began. He has associated abdominal pain, nausea, and diaphoresis (subjective, not observed on exam). His pain is 7 out of 10 in severity, and intermittent, worse when supine, not relieved by nitroglycerin. EKG was not changed from previous, without any acute ischemic changes. Troponin was negative x2. His AICD was interrogated in the emergency room, and there were no shocks given recently. He underwent a left heart catheterization which found nonobstructive CAD (cath in 08/2019 revealing of proximal LAD lesion of 40% that was IFR negative at 0.96). Chest pain responded completely to IV ketorolac, suggesting MSK source of chest pain. Will undergo stress test tomorrow. - nuclear stress test tomorrow 10/05 - NPO at midnight tonight - Sublingual nitroglycerin as needed - Tylenol 650 every 6 for pain (patient was asking for opioids, Dilaudid by name) - motrin 800 mg 3 times a day PRN for pain with protonix for UGIB ppx GERD (gastroesophageal reflux disease) 3 Assessment & Plan (03/17/2023 1:23 PM EST): Cont home PPI. - Continue Protonix Assessment & Plan (10/04/2022 5:02 PM EDT): Home medications: omeprazole 20 mg PO every 24 hours , maalox prn Patient with a history of GERD on home PPI, which was continued on admission. - Continue home PPI (switch omeprazole to protonix 20 daily as omeprazole is not on formulary here) Unequal blood pressure in upper extremities 10/01 Assessment & Plan (10/14/2019 3:17 PM EDT): The patient has unequal blood pressures in [...] with vascular surgery for symptomatic subclavian steal Syncope and collapse 10/13/2019 Assessment & Plan (03/17/2023 1:23 PM EST): Presented after episode of syncope and collapse [...] - PT recommending rehab - Cardiology following Assessment & Plan (03/04/2023 4:07 PM EST): Patient presented with syncope and collapse. As per him yesterday at 10 am he collapsed and lost consciousness for like 1 min. He has had multiple episodes such as this during the past 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 Vitally stable. Cr was slightly elevated at 1.35 on admission which has since improved. Patient does have a hx of TOF and SVT and has an ICD and is on sotalol and ranexa at home. Ranexa was started recently for recurrent chest pain. Orthostatic vitals -ve Plan: - Cardiology consulted. Would appreciate recs - Resume sotalol but hold ranexa for now as it can cause syncope. - PT/OT recommending Short term rehab. Assessment & Plan (10/15/2019 11:23 AM EDT): The patient presented after an episode of syncope with associated chest pain. He rates the pain as a 9/10 in severity and describes the pain as heaviness in left chest radiating to left arm with associated numbness in left arm and hand. EKG is unchanged from previous showing evidence of RBBB and left posterior fascicular block without ischemic changes. 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 He recently underwent a cardiac catheterization 08/2019 which showed borderline narrowing of LAD(40%) but no significant coronary obstruction and no evidence of atherosclerosis. TTE in 08/2019 showed mildly reduced EF 45%, global hypokinesis, dilated RV, mild AR, mild MA and moderate TR. He has also been evaluated by neurology for dizziness and syncope, with possible differentials being orthostatic hypotension and subclavian steal. 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 Device interrogation was unrevealing of any episodes of tachycardia (VT 1 zone set 150 bpm, set to monitor) thus effectively ruling out an arrhythmic etiology of his syncope.Troponin here has been negative x4 and D dimer wnl 0.42. BP in right arm is 145/84 and BP in left arm is 114/69. Orthostatic vital signs were unremarkable. Per PT. Pt presents below baseline with functional mobility. Reports dizziness with positional changes (see vitals section). Muscle shaking noted and pt reporting soreness with MMT of BLEs. Unsteady gait with directional changes and increased cardiac effort noted with short distance ambulation. Recommend d/c to STR for ongoing skilled PT intervention. - f/u with outpatient cardiology for duplex U/S for symptomatic subclavian steal - f/u with vascular surgery for symptomatic subclavian steal - telemetry monitoring - optimize electrolytes and hydration - discharge to rehab Assessment & Plan (10/13/2019 11:05 PM EDT): Patient presents after an episode of syncope with associated chest pain. On exam in the ED he is alert and oriented, with no focal deficits, however he does still experience some pain over left chest wall and left shoulder. 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 He recently underwent a cardiac catheterization 08/2019 which showed borderline narrowing of LAD but no significant coronary obstruction. TTE in 08/2019 showed mildly reduced EF 45%, global hypokinesis, dilated RV, mild AR, mild MA and moderate TR. He has also been evaluated by neurology for dizziness and syncope, with possible differentials being orthostatic hypotension and subclavian steal. Troponin here has been negative x2. - trend troponin, EKG - telemetry monitoring - orthostatic vital signs - cardiology consult and ICD interrogation - optimize electrolytes and hydration Atypical chest pain 10/13/2019 Assessment & Plan (10/15/2019 1:28 PM EDT): The patient has had several recent hospital encounters for chest pain, which he describes as a non-exertional, sharp pressure over his left chest. Given his cardiac history he recently underwent a cardiac cath in 08/2019, which did not show obstructive CAD. TTE in 08/2019 showed mildly reduced EF 45%, global hypokinesis, and dilated RV. Troponin has been negative x4 and D-dimer was not elevated at 0.42. Device interrogation was unrevealing of any episodes of tachycardia (VT 1 zone set 150 bpm, set to monitor). - telemetry monitoring - continue with ASA 81 mg - continue Toprol XL 100 mg daily; does not appear to be on statin due to allergy - F/u out patient Cards about starting Ezetimibe, lisinopril ? Assessment & Plan (10/13/2019 10:28 PM EDT): Patient had had several recent hospital encounters for chest pain, which he describes as a nonexertional, sharp pressure over his left chest wall. Given his cardiac history he recently underwent a cardiac cath in 08/2019, which did not show obstructive CAD. TTE in 08/2019 showed mildly reduced EF 45%, global hypokinesis, and dilated RV. Troponin has been negative x2 and D-dimer was not elevated. - continue to trend troponin, EKG - telemetry monitoring - cardiology consult and ICD interrogation - continue with ASA 81 mg, Toprol XL 100 mg daily; does not appear to be on statin due to allergy ? Intraparenchymal hematoma of brain 08/27/2019 Assessment & Plan (08/27/2019 10:13 PM EDT): CT head showed: left periventricular white matter ill-defined 1 cm acute intraparenchymal hematoma. - Neurosurgery consult - repeat CTH 6 hours from initial then 24 hours (per NSG) - Dilantin x7 days per NSG - Hold ASA per NSG Closed C2 fracture 08/27/2019 Assessment & Plan (08/27/2019 10:11 PM EDT): CT c-spine showed: focal, partially corticated irregularity along the posterior C2 dens margin may reflect possible subacute to chronic fracture. - HCAAT - MRI c-spine - Completion trauma imaging - Management per ortho spine Intracranial hematoma 08/27/2019 Acute chest pain 08/18/2019 Assessment & Plan (03/17/2023 1:23 PM EST): Patient with hx of chronic chest pain. Patient has had extensive cardiac workup at outside hospitals which was negative. This has included stable TTE in Feb 2023, an a nuclear study in Jan 2023 which showed preserved LVEF, normal coronary flow reserve, artifact from VSD patch, and no obvious coronary calcification. He is on home imdur 30mg daily, gabapentin 300mg BID. Recently had PPI and ranexa added to his regimen. This admit with chest pain at rest with negative troponin and no acute EKG changes. Pain is reproducible on exam. He is on AC with compliance without signs of DVT making PE unlikely. Seen by cardiology. Still with intermittent pain for which patient has been requesting morphine - also documented at OSH previously. Suspect MSK given reproducible nature. Another episode of chest pain on 03/13 where troponin was trended again without any significant elevation. EKG nonischemic. - Continue Imdur and Gabapentin - HOLD Ranexa for soft BP and orthostatic hypotension - Tylenol and Lidoderm patch as needed - NO NSAIDs - Cardiology following, no further ischemic work-up at this time Assessment & Plan (08/27/2019 10:41 PM EDT): Experienced chest pain preceding fall. Patient had cardiac cath and echocardiogram within the last two weeks, no significant CAD identified. Non-ischemic EKG and negative troponin x2 prior to admission. - monitor on telemetry Assessment & Plan (08/20/2019 12:05 PM EDT): Joaquín has a history of tetralogy of fallot s/p surgical repair, NICM s/p AICD, and paroxysmal AF who presents with repeated presentation of chest pain. He was previously admitted 07/25-07/28 for substernal chest pain, deemed to be reproducible and non-cardiac in nature and was discharged with pain management. Today is his fourth presentation to the ED for chest pain since that discharge, with previous presentations with negative troponins, no ischemic ECG changes, and normal functioning AICD (despite patient reporting being shocked). He states that today he was walking from his home to the pharmacy when he experienced sudden onset 8/10 left-sided chest pain, with associated SOB, nausea, and radiation down his left arm. He received 325 mg of aspirin, 4 mg Zofran, 1 nitro, 50 mcg fentanyl per EMS prior to ED arrival, and 1L NS and 5mg oxycodone in the ED. Chest Xray revealed known cardiomegaly, otherwise negative. ECG on admission was a-paced with HR 79bpm, known RBBB, and no acute ischemic changes. Initial troponin was negative, then increased to 0.09 down to 0.01 Heparin GTT was restarted due to Chest pain. Unable to do stress test due to CP. Cath revealed no significant CAD Has allergy to statin. - May consider CT PE, not previously ruled out. - May consider additional interrogation of AICD. NICM (nonischemic cardiomyopathy) 08/18/2019 Assessment & Plan (10/04/2022 4:57 PM EDT): Home medications: Lisinopril 2.5 mg p.o. 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 Follows with Dr. iNx at [facility]. etiology of HF was Non-ischemic cardiomyopathy, s/p [...] may be a candidate for SGLT2 inhibitor) Assessment & Plan (10/15/2019 10:06 AM EDT): The patient has a known history of TOF and NICM, most recent TTE in 08/2019 showed EF 45%, dilated RV, global hypokinesis, with mild aortic and pulmonary regurgitation and moderate tricuspid regurgitation. He has an ICD in place which he has previously reported firing but interrogations were negative. He is on Toprol XL 100 mg. - continue with Toprol XL 100 mg daily - optimize electrolytes, K > 4 Mg > 2 - F/u out patient Cards about starting Ezetimibe, lisiinopril Assessment & Plan (10/13/2019 10:36 PM EDT): Patient has a history of TOF and NICM, most recent TTE in 08/2019 showed EF 45%, dilated RV, global hypokinesis. He has an ICD in place which he has previously reported firing but interrogations were negative. He is on Toprol XL 100 mg. - continue with Toprol XL 100 mg daily - optimize electrolytes, K > 4 Mg > 2 - follow up cardiology recs Assessment & Plan (08/19/2019 4:46 PM EDT): The patient has a history of non-ischemic cardiomyopathy secondary to tetrology of fallot, status post [facility] [facility] AICD placement 05/2016. His primary correspondence coordinator is Dr. Tobin, and takes Toprol Xl 100mg daily. The patient has presented 3 times since his most recent discharge from the hospital on 07/28 with concerns of being pacemaker firing by his AICD, however each interrogation revealed normal device programming, with no evidence of ventricular arrhythmias and discharges. He denies feeling he was shocked prior to this most recent presentation. - resume Toprol 100 mg daily (home dose) - Consider AICD interrogation if remainder of chest pain work-up is negative. Angina pectoris, unstable 08/18/2019 Overview (08/19/2019): Added automatically from request for surgery [id number] Assessment & Plan (03/04/2023 4:14 PM EST): Patient complaining of left sided chest pain which is at least sometimes reproducible. Patient has had extensive cardiac workup in the past at [facility], and [facility] which has all been negative. Coronary CT has been -ve, Nuclear stress test was also -ve for any ischemic changes. Patient did have 12 beats of Vtach which was noted on tele but was not seen on ICD interrogration at [place]. Echo was done at [facility] in February which was normal as [...] - Holding ranexa until seen by cards Assessment & Plan (08/19/2019 4:50 PM EDT): Patient had Chest pain prior to admission with mild troponin elevation (0.09 peak). Treated with heparin gtt, NTG gtt until cath (Unable to do stress test due to CP) Cath revealed nonobstructive CAD Patient has statin allergy, discuss PCSK9. Asa 81 mg daily, home toprol 100 daily Likely DC tomorrow Arrange f/u soon with his primary correspondence coordinator Non-cardiac chest pain 07/26/2019 Assessment & Plan (07/28/2019 10:10 AM EDT): Patient has a known history of CAD, most recent cardiac cath in 2004 was unremarkable, unclear if any stents placed, documented CABG?. Most recent TTE in March 2019 showed repaired tetralogy of fallot, VSD patch repair well constructed without leak, EF 55-60%. Patient has presented to multiple EDs for ACS rule out and has undergone coronary CT angiogram, Nuc stress test in May which were unremarkable. Myocardial perfusion scan which showed no evidence of ischemia although apical anterior DE cannot be excluded due to known right bundle branch block.Patient presented with sscp radiating down arm while riding bus. EKG showing NSR, RBBB with no ischemic changes. Troponin negative x2. Chest pain is not relieved with nitro, lidocaine patch helps. Had a presyncopal event overnight at around 9:30 pm. He was walking and was assisted to the floor by staff, no trauma at the time. Patient recalls feeling woozy and remembers the event but says he couldn't communicate. Telemetry overnight reveals Sinus tach (possible 2:1 flutter) possible PMT, there are episodes with spikes on T waves. Patient states that his Agricultural Economist had discussed ablation with him in the past. -troponins negative x 3, admission EKG w SR w BBB but Bi V device does not appear to be functioning properly -Plan device interrogation, EP consult -Patient is not the most clear as a historian. It's unclear if he is in fact having chest pain or perhaps an unusual feeling in his chest from arrhythmias. He was quite relieved when we told him that we were not going to discharge him today and that we are looking further into his symptoms. Discussed with Nurse: Plan to try to note the exact time of any CP events to help sort out/correlate symptoms w tele Check TSH Consider Echo Monday Increase metoprolol to 50 mg po BID to try to rate control/minimize bursts of tachycardia. Cont ASA 81 mg daily. Cholesterol mildly elevated. Documentation of Lipitor allergy. Patient states he does not take Tricor but it is on his med list Will check with his home pharmacy. - chest pain reproducible to palpation: Continue lidocaine patch. Motrin not helpful per patient. Will DC motrin to avoid possible nephrotoxicity Tetralogy of Fallot 07/26/2019 Assessment & Plan (03/17/2023 1:23 PM EST): Patient with dx of congenital tetrology of fallot with repair. - Monitor clinically Assessment & Plan (03/04/2023 4:22 PM EST): Hx of congenital tetrology of fallot with repair. Assessment & Plan (10/03/2022 2:13 PM EDT): Patient with history of Tetralogy of Fallot, status postrepair (remote). [facility] at [facility]. Assessment & Plan (07/28/2019 10:00 AM EDT): Patient with history of Tetralogy of Fallot, status post surgical repair at a young age. Patient also with ICD placement in 2004 due to history of nonischemic cardiomyopathy, unclear what EF was at that time however most recent TTE in March 2019 showing repaired tetralogy of fallot, VSD patch repair well constructed without leak, EF 55-60%, possibly recovered EF. Patient is on Toprol 50 mg daily at home, no diuretics. On exam, patient only with trace lower extremity edema otherwise appears euvolemic. Metoprolol tartrate now increased to 50 Mg po BID Schizophrenia 07/26/2019 Assessment & Plan (03/17/2023 1:23 PM EST): History of schizophrenia. Medications not clarified. Current medications are Seroquel 100 mg nightly, Lexapro 20 mg daily and risperidone 1.5 mg nightly and trazodone 100 mg nightly. Continued on Lexapro, Seroquel and risperidone. Trazodone held in the setting of falls. - Continue Lexapro, Seroquel, Risperdal Assessment & Plan (03/04/2023 4:21 PM EST): C/W quetiapine and trazodone Assessment & Plan (10/04/2022 4:47 PM EDT): Patient with a history of schizophrenia on Seroquel 12.5 mg p.o. twice daily. Continue while inpatient. - Continue home Seroquel 12.5 mg p.o. twice daily Assessment & Plan (10/14/2019 11:42 AM EDT): Patient has a history of schizophrenia. Mood is stable and affect appears appropriate. - continue with sertraline 50 mg daily Assessment & Plan (10/13/2019 10:29 PM EDT): Patient has a history of schizophrenia. Mood stable and affect appears appropriate. - continue with sertraline 50 mg daily Assessment & Plan (08/20/2019 12:03 PM EDT): The patient reported prior history of schizophrenia with suicide attempts and multiple psychiatric admissions. His current medications include sertraline 50 mg daily and hydroxyzine as needed. He is currently A&O x 3, denies visual/auditory hallucinations and suicidal ideation. - Continue home Zoloft daily and Atarax PRN. - follow up with PCP Tristan Lang arranged. Assessment & Plan (07/28/2019 10:02 AM EDT): Patient with history of schizophrenia, depression with multiple suicide attempts in the past including sotalol overdose, remote history of alcohol use. Patient is currently on Zoloft 50 mg daily. Denies any SI. Appropriate in conversation, though somewhat simple -Continue sertraline 50 mg daily -Melatonin and hydroxyzine as needed nightly at bedtime Hypothyroid 07/26/2019 Assessment & Plan (03/17/2023 1:23 PM EST): Continue home dose of levothyroxine 75mg daily. - Continue Levothyroxine Assessment & Plan (03/04/2023 4:20 PM EST): C/W EQUIPMENT MAINTENANCE SUPERVISOR dose of levothyroxine 75mg daily. Assessment & Plan (10/04/2022 4:47 PM EDT): - Continue home Synthroid 75 mcg p.o. daily Assessment & Plan (10/14/2019 12:55 PM EDT): The patient has a history of hypothyroidism. TSH 10/14/2019 is borderline elevated at 4.494 and free T4 is 1.04. - continue with synthroid 75 mcg daily Assessment & Plan (10/13/2019 10:30 PM EDT): Patient has a history of hypothyroidism. Most recent TSH 3.474. - continue with synthroid 75 mcg daily Assessment & Plan (08/20/2019 12:03 PM EDT): The patient has a history of hypothyroidism, most recent TSH in 07/2019 was normal. - Continue home levothyroxine 75mcg daily. He said he is out of this medication. I will prescribe on discharge but request future fills from PCP Assessment & Plan (07/28/2019 10:03 AM EDT): Patient with history of hypothyroidism, on levothyroxine 75 MCG daily -Continue home medication Check TSH PONCE (obstructive sleep apnea) 07/26/2019 Assessment & Plan (03/17/2023 1:23 PM EST): Hx of PONCE not currently using CPAP as per chart review. - Supplemental oxygen as needed overnight - Monitor mental status for solmnolence due to worsening hypercarbia Assessment & Plan (03/04/2023 4:21 PM EST): Hx of PONCE not currently using CPAP as per chart review. Assessment & Plan (10/04/2022 4:47 PM EDT): Patient with a history of PONCE on nocturnal noninvasive ventilation, nocturnal BiPAP with settings of 14/7. This was ordered to continue care in the hospital. - Continue home nocturnal BiPAP at home settings. Assessment & Plan (07/26/2019 8:00 PM EDT): Patient with history of PONCE, on home CPAP (? BiPAP) nightly, on home settings of 14/7 -Continue home CPAP overnight Hyperlipemia 07/26/2019 Assessment & Plan (10/04/2022 4:47 PM EDT): Images from the original note were not [...] PCSK9 inhibitor (monitor for LDL > 70) Assessment & Plan (07/28/2019 10:05 AM EDT): Patient with history of hyperlipidemia with elevated triglycerides, previously on fenofibrate 54 mg nightly, currently not on any medications.Patient has allergy to statins -Chol 198, TG 174, HDL 41, LDL 122 Patient denies being on Tricor at present Check with home pharmacy regarding statins Chronic atrial fibrillation 07/26/2019 Assessment & Plan (03/17/2023 1:23 PM EST): Known atrial fibrillation on Xarelto and sotalol at home. Previously on metoprolol. Normal sinus rhythm with right bundle branch block on admission. Sotalol initially held for QTc greater than 500 however with correction for right bundle branch block was restarted. QTc has been well-controlled since. Interrogation of AICD and telemetry shows sinus tachycardia. - Continue Sotalol - Resumed Xarelto after myelogram - Serial EKG showed corrected QTc less than 500 (discussed with EP, okay to continue medication) - Restart Metoprolol if breakthrough episodes of Afib RVR Assessment & Plan (03/04/2023 4:24 PM EST): Patient with a hx of Afib on sotalol and xarelto. Holding sotalol as Qtc was 503 this morning. C/W xarelto. Assessment & Plan (10/04/2022 4:56 PM EDT): Images from the original note were not included. Home medications: Sotalol 80 mg p.o. twice daily, Xarelto 20 mg daily Patient with a history of paroxysmal atrial fibrillation on home sotalol 80 daily and Xarelto 20 daily. Of note, he had a previous area on head CT which was concerning for a small 1 cm intraparenchymal bleed in August 2019, however this was stable on repeat CT scans. He has no neurological changes on exam, and no headache today. States that his last dose of Xarelto was at 4 PM on the day prior to admission. Sotalol continued, Xarelto was held in the setting of possible intervention/cardiac cath and possible transition to heparin gtt. - Monitor on telemetry - K > 4.0, mag > 2.0 - Continue home Sotalol 80 mg p.o. twice daily (qtc 502 on admission) - holding home Xarelto pending results of CT coronary - consider transitioning to heparin drip if cardiac cath is warranted [id number] Stroke Risk (5-year stroke rate based on score) Current as of about an hour ago 3 2 - 4 Points: 11-19% 5 - 6 Points: 30-41% >= 7 Points: 41-56% Last Change: N/A Details This score determines the patient's risk of having a stroke if the patient has atrial fibrillation. Points Metrics 0 Age: 62 Current as of about an hour ago 0 Sex: Male Current as of about an hour ago 0 Has Congestive Heart Failure: No Current as of about an hour ago 1 Has Hypertension: Yes Current as of about an hour ago 1 Has Diabetes: Yes Current as of about an hour ago 0 Had Stroke: No Current as of about an hour ago 1 Had Vascular Disease: Yes Current as of about an hour ago Assessment & Plan (10/14/2019 12:50 PM EDT): The patient has a history of paroxysmal atrial fibrillation. He is not on anticoagulation. He has a CHADs-VASC of 2 (+1 LV hypokinesis, +1T2DM). Consider starting apixaban 5 mg bid for antigoagulation. May hold off considering the patient's history of recurrent intraparenchymal bleed. He is on metoprolol for rate control. - continue Toprol XL 100 mg daily Assessment & Plan (10/13/2019 10:33 PM EDT): Patient has a history of paroxysmal atrial fibrillation. He is not on anticoagulation. His on metoprolol for rate control. - continue Toprol XL 100 mg daily Assessment & Plan (08/20/2019 12:04 PM EDT): The patient has a history of paroxysmal AF, not on anticoagulation (ODH4CB2-Lybn of 1). He currently takes Toprol XL 100mg daily at home, and reports compliance. Has decided against Anticoagulation in the past. - Restart home Toprol on DC Assessment & Plan (07/28/2019 10:07 AM EDT): Patient with history of paroxysmal A. fib, previously on sotalol (since stopped due to side effects per patient) on toprol 50mg daily at home, No home AC, CHADS VASC 1-2. EKG on admission showing known RBBB, NSR, no ischemic changes. Tele sinus rhythm but unclear if there could be 2:1 flutter with buried P wave in Ts. EP consult, device interrogation Discuss AC -lopressor increased to 50 mg bid for rate control - baby aspirin -Cont tele monitoring. HTN (hypertension) 07/26/2019 Assessment & Plan (10/04/2022 4:56 PM EDT): Home medications: Lisinopril 2.5 daily Patient with a history of Hypertension, home regimen above. - Plan for HTN per NICM section Assessment & Plan (07/28/2019 10:17 AM EDT): Patient with hx of HTN, previously on amlodipine and lisinopril, at home take sToprol 25 mg daily only -BP stable but increasing BB to 50 BID for rate control as above Continue to monitor Type 2 diabetes mellitus wit h hyperglycemia, without long-term current use of insulin 07/26/2019 Assessment & Plan (03/17/2023 1:23 PM EST): Patient with NIDDM2 on home metformin 500mg BID, and lisinopril 2.5mg po daily. FSBS stable - LD-ISS qAC and qHS - FSBG qAC and qHS - Diabetic diet - Holding home oral diabetic medications while hospitalized - Monitor for signs and symptoms of hypoglycemia Assessment & Plan (03/04/2023 4:19 PM EST): Hx of DM-2 on metformin 500mg daily. Plan: - Accouchecks ACHS and low dose SSI for coverage Assessment & Plan (10/04/2022 4:56 PM EDT): Images from the original note were not included. Home medications: no home meds for diabetes, on gabapentin 300 BID Patient with a history of T2DM With complications in the form of Diabetic Neuropathy. Home regimen above. Most recent a1c below: Latest Ref Rng & Units 07/27/2019 5:58 AM HgbA1c Hemoglobin A1C <5.7 % of total Hgb 6.3 . - Continue home gabapentin 300 BID - Correctional insulin: LDISS Lispro - Diabetic (consistent carbohydrate) Diet Assessment & Plan (07/28/2019 10:18 AM EDT): Patient with documented history of type 2 diabetes, last HbA1c 6.9. Not on any medications A1C now 6.3 F/u PCP Cardiac diet, no concentrated sweets diet CKD (chronic kidney disease) 07/26/2019 Assessment & Plan (10/14/2019 11:51 AM EDT): The patient has a history of CKD. Creatinine and BUN have been wnl during this hospitalization, 1.21 and 16 respectively. - monitor BMP daily - caution with nephrotoxic agents Assessment & Plan (10/13/2019 10:34 PM EDT): Patient has a history of CKD. Creatinine appears to be at baseline. - monitor BMP daily - caution with nephrotoxic agents Assessment & Plan (08/20/2019 12:05 PM EDT): Most recent baseline Cr appears to be 1.2-1.4, he is currently presenting with Cr 1.55. He received 1L LR in the ED. Creatinine improved to 1.19 Follow up w PCP Assessment & Plan (07/27/2019 10:47 AM EDT): Patient with history of CKD, baseline creatinine approximately 1.2-1.3, currently at baseline. -monitor bmp closely given addition of motrin to medication regimen - avoid nephrotoxic agents Mobility impaired Decreased activities of daily living (ADL) Assessment & Plan (03/17/2023 1:23 PM EST): Evaluated by PT recommending rehab once medically clear. - PT recommending rehab Assessment & Plan (03/04/2023 4:18 PM EST): Patient resides at an assisted living facility but has had multiple falls/syncopal episodes recently. PT/OT recommends short term rehab. Plan: -business services sales representative recs for placement -Fall precautions Immunizations Immunization Administration Dates Next Due Influenza, Injectable, Quadrivalent, Preservativ e Free 03/17/2023 Social History Tobacco Use Types Packs/Day Years Used Date Smoking Tobacco: Former Cigarettes 1 3 0 04/03/1981 - 04/03/1984 Smokeless Tobacco: Never Tobacco Cessation:Counseling Given: No Alcohol Use Standard Drinks/Week Comments Not Currently 0 (1 standard drink = 0.6 oz pure alcohol) former etoh abuse, last drink March 2019 Sex and Gender Information Value Date Recorded Sex Assigned at Male 07/11/2024 4:11 PM EDT Legal Sex Male 5:37 PM EDT Gender Identity Not on file Sexual Orientation Not on file Last Filed Vital Signs Vital Sign Reading Time Taken Comments Blood Pressure 140/89 07/11/2024 11:15 PM EDT Pulse 76 07/11/2024 11:15 PM EDT Temperature 36.7 ??C (98 ??F) 07/11/2024 2:30 PM EDT Respiratory Rate 16 07/11/2024 11:15 PM EDT Oxygen Saturation 98% 07/11/2024 11:15 PM EDT Inhaled Oxygen Concentration - - Weight 110 kg (242 lb 8.1 oz) 07/11/2024 2:30 PM EDT Height 175.3 cm (5' 9 ) 03/05/2023 5:13 PM EST Body Mass Index 35.81 03/05/2023 5:13 PM EST Plan of Treatment Not on file Procedures * Due to [place] state law, this organization might not be sharing negative HIV tests. Procedure Name Priority Date/Time Associated Diagnosis Comments XR CHEST 2 VW STAT 07/11/2024 11:48 PM EDT TROPONIN T HIGH SENSITIVITY STAT 07/11/2024 10:59 PM EDT ROMANO TOP, URN Routine 07/11/2024 10:29 PM EDT UA/CULTURE REFLEX Routine 07/11/2024 10: 29 PM EDT URINALYSIS W/REFLEX TO MICROSCOPIC & CULTURE Routine 07/11/2024 10:29 PM EDT LIPASE STAT Add-on 07/11/2024 9:13 PM EDT HEPATIC FUNCTION PANEL STAT Add-on 07/11/2024 9:13 PM EDT TROPONIN T HIGH SENSITIVITY STAT 07/11/2024 9:13 PM EDT ECG 12-LEAD STAT 07/11/2024 3:18 PM EDT ECG 12-LEAD STAT 07/11/2024 2:31 PM EDT TROPONIN T HIGH SENSITIVITY STAT 07/11/2024 2:30 PM EDT BASIC METABOLIC PANEL STAT 07/11/2024 2:30 PM EDT CBC AUTO DIFFERENTIAL STAT 07/11/2024 2:30 PM EDT HEART & VASCULAR - SCANNED 07/11/2024 HEMOGLOBIN A1C Routine 10/03/2022 8:30 AM EDT HEPATITIS C ANTIBODY W/REFLEX TO HCV RNA, QUANTITATIVE PCR STAT 08/27/2019 2:07 PM EDT from Last 3 Months or Most Recently Relevant to Health Maintenance Results * Due to [place] state law, this organization might not be sharing negative HIV tests. * XR Chest 2 vw. Standard (07/11/2024 11:48 PM EDT) Anatomical Region Laterality Modality Body Computed Radiogr aphy 07/12/2024 1:01 AM EDT Impressions 07/12/2024 1:02 AM EDT 1. ??No radiographic evidence of an acute intrathoracic process. If this radiology report contains a blank impression section, it is an incomplete radiology report. ??Please contact the interpreting radiologist or applicable radiology division as soon as possible to obtain the completed interpretation. ? Workstation ID: [id number] Narrative 07/12/2024 1:02 AM EDT EXAMINATION: XR CHEST 2 VW EXAM DATE: ??07/11/2024 11:41 PM TECHNIQUE: ??Frontal and lateral views of the chest are provided. INDICATION: ??chest pain COMPARISON: ??Chest x-ray dated 03/04/2023 FINDINGS: Cardiac silhouette is magnified. Left anterior chest wall AICD is unchanged with respect the prior examination. Libertad appear unremarkable. There is no radiographic evidence for focal infiltrate or pleural effusion. No pneumothorax is seen. Resulting Agency Comment [id number] Procedure Note Sean Arango MD - 07/12/2024 EXAMINATION: XR CHEST 2 VW EXAM DATE: 07/11/2024 11:41 PM TECHNIQUE: Frontal and lateral views of the chest are provided. INDICATION: chest pain COMPARISON: Chest x-ray dated 03/04/2023 FINDINGS: Cardiac silhouette is magnified. Left anterior chest wall AICD isunchanged with respect the prior examination. [place] appear unremarkable.There is no radiographic evidence for focal infiltrate or pleuraleffusion. No pneumothorax is seen. IMPRESSION: 1. No radiographic evidence of an acute intrathoracic process. If this radiology report contains a blank impression section, it is anincomplete radiology report. Please contact the interpreting radiologistor applicable radiology division as soon as possible to obtain thecompleted interpretation. Workstation ID: [id number] us Grant Cox MD IMG XR PROCEDURES Final Res ult * Repeat Troponin #2 (07/11/2024 10:59 PM EDT) Only the most recent of3 resultswithin the time period is included. Troponin T High Sensitivity 9 <=21 ng/L 07/11/2024 11:42 PM EDT [facility] [employer] [facility] Comment: Tl-[id number] level of 52 ng/L or higher at 0-hour at presentation is recommended by the ESC 0/1-hour algorithm for identifying patients at high risk for ruling in acute myocardial infarction (AMI) in the appropriate clinical context. Repeat troponin testing 1-3 hours after the initial sample may be helpful in assessing for ongoing myocardial injury. Troponin elevations can be seen in several other non-infarct conditions, and the change (delta) should be evaluated in line with the 4th [place] Definition of AMI. Troponin baseline and serial elevation for a significant delta should be interpreted with clinical presentation, history, signs and symptoms, ECG, and biomarker concentrations. For inpatient setting: Value <12ng/L is considered negative for all genders. 0-1hr: A delta change of <3 will be considered negative/flat if chest pain onset >3 hours 0-3hr: A delta change of <7 will be considered negative/flat Blood Structure of peripheral vein / Unknown Venipuncture / Unknown 07/11/2024 10:59 PM EDT 07/11/2024 11:14 PM EDT Grant Cox MD LAB BLOOD ORDERABLES Final Result [facility] [employer] [address] [place] [address], [place] * Romano Top, Urine (07/11/2024 10:29 PM EDT) Extra Tube Hold for add-ons. 07/12/2024 3:[address] [facility] Comment:Auto resulted. Urine Urine specimen collection, clean catch / Unknown Non-Blood Collection / Unknown 07/11/2024 10:29 PM EDT 07/11/2024 10:33 PM EDT us Grant Cox MD LAB URINE ORDERABLES Final Result [facility] [address] [place] [address], * Urinalysis W/Reflex to Microscopic & Culture (07/11/2024 10:29 PM EDT) Color, Urine Light Yellow Colorless, Light Yellow, Yellow, Dark Yellow 07/11/2024 10:42 PM EDT [facility] Clarity, Urine Clear Clear 07/11/2024 10:42 PM EDT [facility] Specific [place], Urine 1.013 <1.030 07/11/2024 10:42 PM EDT [facility] pH, Urine 6.0 4.6 - 8.0 07/11/2024 10:42 PM EDT [facility] Protein, Urine Negative Negative 07/11/2024 10:42 PM EDT [facility] Glucose, Urine Normal Normal 07/11/2024 10:42 PM EDT [facility] Ketones, Urine Negative Negative 07/11/2024 10:42 PM EDT [facility] Bilirubin, Urine Negative Negative 07/11/2024 10:42 PM EDT [facility] Blood, Urine Negative Negative 07/11/2024 10:42 PM EDT [facility] Nitrite, Urine Negative Negative 07/11/2024 10:42 PM EDT [facility] Urobilinogen, Urine Normal Normal 07/11/2024 10:42 PM EDT [facility] Leukocyte Esterase, Urine Negative Negative 07/11/2024 10:42 PM EDT [facility] Urine Urine specimen collection, clean catch / Unknown Non-Blood Collection / Unknown 07/11/2024 10:29 PM EDT 07/11/2024 10:33 PM EDT Grant Cox MD LAB URINE ORDERABLES Final Result Performing Organization Address City/[facility]/ZIP Co de Phone Number [facility] [address] [place] [address], * Lipase (07/11/2024 9:13 PM EDT) Pathologist [facility] Lipase 32 13 - 60 U/L 07/11/2024 10:54 PM EDT [facility] Blood Structure of peripheral vein / Unknown Venipuncture / Unknown 07/11/2024 9:13 PM EDT 07/11/2024 9:23 PM EDT Grant Cox MD LAB BLOOD ORDERABLES Final Result Performing Organization Address [facility] Co de Phone Number [facility] [address] [place] [address], [place] * Hepatic Function Panel (07/11/2024 9:13 PM EDT) Pathologist [facility] Total Protein 6.2 6.0 - 8.0 g/dL 07/11/2024 10:54 PM EDT [facility] [employer] [facility] Albumin 3.9 3.5 - 5.2 g/dL 07/11/2024 10:54 PM EDT [facility] Globulin, Total 2.3 2.1 - 4.2 g/dL 07/11/2024 10:54 PM EDT [facility] Bilirubin, Total 0.4 0.2 - 1.2 mg/dL 07/11/2024 10:54 PM EDT [facility] Bilirubin, Direct 0.2 <=0.4 mg/dL 07/11/2024 10:54 PM EDT [facility] Alkaline Phosphatase 69 35 - 129 U/L 07/11/2024 10:54 PM EDT [facility] AST 17 10 - 40 U/L 07/11/2024 10:54 PM EDT [facility] ALT 17 10 - 40 U/L 07/11/2024 10:54 PM EDT [facility] Bilirubin, Indirect 0.20 <=0.70 mg/dL 07/11/2024 10:54 PM EDT [facility] A/G Ratio 1.7 1.5 - 3.0 07/11/2024 10:54 PM EDT [facility] Blood Structure of peripheral vein / Unknown Venipuncture / Unknown 07/11/2024 9:13 PM EDT 07/11/2024 9:23 PM EDT us Grant Cox MD LAB BLOOD ORDERABLES Final Result [facility] [address] [place] [id number], [place] * ECG 12 lead (07/11/2024 3:18 PM EDT) Only the most recent of2 resultswithin the time period is included. Ventricular Rate EKG 75 BPM MUSE EKG Atrial Rate 75 BPM MUSE EKG MA Interval 200 ms MUSE EKG QRS Interval 168 ms MUSE EKG QT Interval 450 ms MUSE EKG QTC Interval 502 ms MUSE EKG P [place] 64 degrees MUSE EKG R [place] 109 degrees MUSE EKG T Wave [place] 57 degrees MUSE EKG 07/11/2024 3:18 PM EDT 07/21/2024 12:51 PM EDT Impressions MUSE EKG - 07/21/2024 12:51 PM EDT NORMAL SINUS RHYTHM RIGHT BUNDLE BRANCH BLOCK ABNORMAL ECG WHEN COMPARED WITH ECG OF 11-JUL-2024 14:31, (UNCONFIRMED) NO SIGNIFICANT CHANGE WAS FOUND Confirmed by Michael Shelton ([id number]) on 07/21/2024 12:51:31 PM us Grant Cox MD ECG ORDERABLES Final Resul t MUSE EKG * (ABNORMAL) CBC Auto Differential (07/11/2024 2:30 PM EDT) WBC 7.5 3.8 - 10.8 10*3/uL 07/11/2024 2:53 PM EDT [email or web address] RBC 4.03(L) 4.20 - 5.80 10*6/uL 07/11/2024 2:53 PM EDT [email or web address] Hemoglobin 11.0(L) 13.2 - 17.1 g/dL 07/11/2024 2:53 PM EDT [facility] Hematocrit 34.5(L) 38.5 - 50.0 % 07/11/2024 2:53 PM EDT [facility] MCV 85.6 80.0 - 100.0 fL 07/11/2024 2:53 PM EDT [facility] MCH 27.3 27.0 - 33.0 pg 07/11/2024 2:53 PM EDT [facility] MCHC 31.9(L) 32.0 - 36.0 g/dL 07/11/2024 2:53 PM EDT [facility] RDW 13.6 11.0 - 15.0 % 07/11/2024 2:53 PM EDT [facility] Platelets 81(L) 140 - 400 10*3/uL 07/11/2024 2:53 PM EDT [facility] MPV 11.7 7.5 - 12.5 fL 07/11/2024 2:53 PM EDT [facility] Neutrophil % 64.9 % 07/11/2024 2:53 PM EDT [facility] Immature Grans % 2.3(H) 0.0 - 0.9 % 07/11/2024 2:53 PM EDT [facility] Lymphocyte % 18.8 % 07/11/2024 2:53 PM EDT [facility] Monocyte % 9.2 % 07/11/2024 2:53 PM EDT [facility] Eosinophil % 3.7 % 07/11/2024 2:53 PM EDT [facility] Basophil % 1.1 % 07/11/2024 2:53 PM EDT [facility] Neutrophil # 4.87 1.50 - 7.80 10*3/uL 07/11/2024 2:53 PM EDT [facility] Immature Grans # 0.17(H) <=0.03 10*3/uL 07/11/2024 2:53 PM EDT [facility] Lymphocyte # 1.40 0.85 - 3.90 10*3/uL 07/11/2024 2:53 PM EDT [facility] Monocyte # 0.70 0.20 - 0.95 10*3/uL 07/11/2024 2:53 PM EDT [facility] Eosinophil # 0.30 0.02 - 0.50 10*3/uL 07/11/2024 2:53 PM EDT [facility] Basophil # 0.10 0.00 - 0.20 10*3/uL 07/11/2024 2:53 PM EDT [facility] nRBC % 0.0 /100 WBCs 07/11/2024 2:53 PM EDT [facility] nRBC # <0.01 <0.01 10*3/uL 07/11/2024 2:53 PM EDT [facility] Blood Structure of peripheral vein / Unknown Venipuncture / Unknown 07/11/2024 2:30 PM EDT 07/11/2024 2:47 PM EDT us Grant Cox MD LAB BLOOD ORDERABLES Final Result [facility] [address] [place] [id number], [place] * (ABNORMAL) Basic Metabolic Panel (07/11/2024 2:30 PM EDT) NA 140 135 - 145 mmol/L 07/11/2024 3:20 PM EDT [facility] [employer] [facility] K 4.1 3.5 - 5.3 mmol/L 07/11/2024 3:20 PM EDT [facility] Cl 105 98 - 107 mmol/L 07/11/2024 3:20 PM EDT [facility] CO2 23 22 - 32 mmol/L 07/11/2024 3:20 PM EDT [facility] BUN 16 7 - 23 mg/dL 07/11/2024 3:20 PM EDT [facility] [employer] [facility] Creatinine 1.25 0.60 - 1.30 mg/dL 07/11/2024 3:20 PM EDT [facility] [employer] [facility] Glucose 156(H) 65 - 99 mg/dL 07/11/2024 3:20 PM EDT [employer] [facility]UN[facility] [employer] Calcium 8.0(L) 8.6 - 10.5 mg/dL 07/11/2024 3:20 PM EDT [facility] Anion Gap 12 5 - 15 07/11/2024 3:20 PM EDT [facility]UN[facility] [employer] [facility] eGFR 65 >=60 mL/min/1. 73m2 07/11/2024 3:20 PM EDT [facility] Comment:The estimated glomer ular filtration rate (eGFR) is calculated using a new formula developed by the NKF-ASN task force to eliminate race-based correction factors. The new formula uses serum/plasma creatinine, age, and gender to determine eGFR. A value below 60mls/min might indicate kidney disease and will be flagged. For additional information, see Damon tom al, Am J Kidney Dis. 2021;79(2):268- 288, A Unifying Approach for GFR estimation: Recommendations of the NKF-ASN Task Force on Reassessing the Inclusion of Race in Diagnosing Kidney Disease . Blood Structure of peripheral vein / Unknown Venipuncture / Unknown 07/11/2024 2:30 PM EDT 07/11/2024 2:47 PM EDT us Grant Cox MD LAB BLOOD ORDERABLES Final Result Performing Organization Address City/[facility]/ZIP Co de Phone Number [facility] [address] [place] [address], [place] * HEART & VASCULAR - SCANNED (07/11/2024) Anatomical Region Laterality Modality Other us Onbase Scan Diane SCANNED PROCEDURES Final Resu lt * (ABNORMAL) Hemoglobin A1c (10/03/2022 8:30 AM EDT) Hemoglobin A1C 6.7(H) <5.7 % of total Hgb 10/03/2022 4:36 PM EDT [facility] Comment: For someone without known diabetes, a hemoglobin A1c value of 6.5% or greater indicates that they may have diabetes and this should be confirmed with a follow-up test. For someone with known diabetes, a value <7% indicates that their diabetes is well controlled and a value greater than or equal to 7% indicates suboptimal control. A1c targets should be individualized based on duration of diabetes, age, comorbid conditions, and other considerations. Currently, no consensus exists regarding use of hemoglobin A1c for diagnosis of diabetes for children. ?? eAG (MG/DL) 146 mg/dL 10/03/2022 4:36 PM EDT [facility] eAG (MMOL/L) 8.1 mmol/L 10/03/2022 4:36 PM EDT [facility] Blood Structure of peripheral vein / Unknown Venipuncture / Unknown 10/03/2022 8:30 AM EDT 10/03/2022 8:36 AM EDT Narrative GEOVANNA MAGANA - 10/03/2022 4:36 PM EDT [facility] Received Date:[id number] us Dank Bob MD LAB BLOOD ORDERABLES Final Res ult GEOVANNA MAGANA [address], [place] [address], [employer] [facility] [address], [place] [address], * Hepatitis C Antibody w/Reflex to HCV RNA, Quantitative PCR (08/27/2019 2:07 PM EDT) Hepatitis C Antibody NON-REACT GALO NON-REACT GALO 08/28/2019 1:42 AM EDT [employer] [facility] Signal To Cut-Off 0.08 <1.00 08/28/2019 1:42 AM EDT [facility] Comment: HCV antibody was non-reactive. There is no laboratory evidence of HCV infection. In most cases, no further action is required. However, if recent HCV exposure is suspected, a test for HCV RNA (test code 42534) is suggested. For additional information please refer to http://education.BIXI/faq/WZO92w8 (This link is being provided for informational/ educational purposes only.) Blood Structure of peripheral vein / Unknown Venipuncture / Unknown 08/27/2019 2:07 PM EDT 08/27/2019 2:13 PM EDT Narrative GEOVANNA MAGANA - 08/28/2019 1:42 AM EDT [facility] Received Date: us Jomar Leung MD LAB BLOOD ORDERABLES Final Resul t GEOVANNA MAGANA [address] [facility] [address] [facility], [place] [address], [employer] [facility] [address], [place] [address], from Last 3 Months or Most Recently Relevant to Health Maintenance Insurance [facility] Advance Directives Documents on File Type Date Recorded 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 Health Care Proxy 10/15/2019 11:08 AM Megha Gravaes Health Care Proxy 10/14/2019 12:47 PM HCP 10/14/19 * Full Code (Latest Code Status on File) Date Activated Date Inactivated Comments 03/04/2023 4:31 AM 03/17/2023 8:08 PM * Full Code Date Activated Date Inactivated Comments 10/03/2022 8:19 AM 10/05/2022 7:56 PM * Full Code Date Activated Date Inactivated Comments 10/03/2022 8:18 AM 10/03/2022 8:19 AM * Full Code Date Activated Date Inactivated Comments 10/13/2019 9:06 PM 10/15/2019 7:41 PM * Presumed Full Code Date Activated Date Inactivated Comments 08/27/2019 10:33 PM 08/29/2019 3:32 PM Healthcare Agents on File Name Relationship Healthcare Agent Relationship Communication Megha Browning Sister Health Care Agent Care Teams Alley Cleaner Relationship Specialty Start Date End Date Patient, Has No Pcp Or Ref DO NOT EDIT THIS RECORD VIA [facility] THE [employer]Y PCP - General Billing Assistant 07/11/24
--- OUTSIDE RECORDS SUMMARY | 2024-07-30 14:05 | XMS_ITS | Encounter Summary ---
Author Organization [facility] Address [address] [place] [address] Care Team Providers Care Systems Software Manager Name Role Phone DavionmynorattilaAmari virk Primary Care Provider [phone] Encounter Details Date Type Department Care Team (Late st Contact Info) Description 02/20/2024 Lab Requisition [facility] - Main Lab [address] [facility] [place] [id number] Erasto Henry MD [address] [place] [address] [address] [place], [address] Essential (primary) hypertension Social History Tobacco [...] mmol/L LAB CHEMISTRY METHOD 02/21/2024 9:59 AM [facility] Potassium 4.3 3.5 - 5.5 mmol/L LAB CHEMISTRY METHOD 02/21/2024 9:59 AM [facility] Chloride 107 96 - 110 mmol/L LAB CHEMISTRY METHOD 02/21/2024 9:59 AM [facility] CO2 30 21 - 32 mmol/L LAB CHEMISTRY METHOD 02/21/2024 9:59 AM [facility] Anion Gap 5 3 - 11 LAB CHEMISTRY METHOD 02/21/2024 9:59 AM [facility] Glucose 136(H) 70 - 100 mg/dL LAB CHEMISTRY METHOD 02/21/2024 9:59 AM [facility] BUN 14 5 - 25 mg/dL LAB CHEMISTRY METHOD 02/21/2024 9:59 AM [facility] Creatinine 1.15 0.70 - 1.30 mg/dL LAB CHEMISTRY METHOD 02/21/2024 9:59 AM [facility] eGFR 72 >=60 mL/min/1. 73m2 LAB CHEMISTRY METHOD 02/21/2024 9:59 AM [facility] Comment:Calculation based on the??Chronic Kidney Disease Epidemiology Collaboration (CKD-EPI) equation refit??without adjustment for race. BUN/Creatinine Ratio 12.2 LAB CHEMISTRY METHOD 02/21/2024 9:59 AM [facility] Calcium 8.4(L) 8.5 - 10.5 mg/dL LAB CHEMISTRY METHOD 02/21/2024 9:59 AM [facility] Blood Venous blood specimen / Unknown Venipuncture / Unknown 02/21/2024 6:49 AM EST 02/21/2024 8:51 AM EST us Erasto Henry MD LAB BLOOD ORDERABLES Final Resul t [facility] [address] [place] [address], * (ABNORMAL) Complete blood count (02/21/2024 6:49 AM EST) WBC 5.5 4.8 - 10.8 K/mcL LAB HEMETOLOGY METHOD 02/21/2024 9:40 AM [facility] RBC 4.20(L) 4.50 - 5.50 M/mcL LAB HEMETOLOGY METHOD 02/21/2024 9:40 AM [facility] Hemoglobin 12.1(L) 13.5 - 17.5 g/dL LAB HEMETOLOGY METHOD 02/21/2024 9:40 AM [facility] Hematocrit 37.0(L) 42.0 - 54.0 % LAB HEMETOLOGY METHOD 02/21/2024 9:40 AM [facility] MCV 87.9 79.0 - 98.0 FL LAB HEMETOLOGY METHOD 02/21/2024 9:40 AM [facility] MCH 28.7 27.0 - 32.0 pcg LAB HEMETOLOGY METHOD 02/21/2024 9:40 AM [facility] MCHC 32.7 32.0 - 37.0 g/dL LAB HEMETOLOGY METHOD 02/21/2024 9:40 AM [facility] RDW 12.7 11.0 - 15.0 % LAB HEMETOLOGY METHOD 02/21/2024 9:40 AM [facility] Platelets 84(L) 130 - 400 K/mcL LAB HEMETOLOGY METHOD 02/21/2024 9:40 AM [facility] Comment:previously verified by slide MPV 11.9(H) 7.0 - 11.0 FL LAB HEMETOLOGY METHOD 02/21/2024 9:40 AM EST [facility] NRBC 0.0 <1.0 % LAB HEMETOLOGY METHOD 02/21/2024 9:40 AM EST [facility] NRBC Absolute 0.00 <0.10 K/mcL LAB HEMETOLOGY METHOD 02/21/2024 9:40 AM EST [facility] Blood Venous blood specimen / Unknown Venipuncture / Unknown 02/21/2024 6:49 AM EST 02/21/2024 8:51 AM EST us Erasto Henry MD LAB BLOOD ORDERABLES Final Resul t [facility] [address] [place] [address], documented in this encounter Visit Diagnoses Diagnosis Essential (primary) hypertension Unspecified essential hypertension documented in this encounter Care Teams Systems Software Manager Relationship Specialty Start Date End Date Amari Vyas DO [address] [place] [id number] PCP - General Internal Medicine 11/11/20 documented as of this encounter
--- OUTSIDE RECORDS SUMMARY | 2024-07-30 14:05 | XMS_ITS | Data Portability ---
Author Organization [facility], Main Office Address [address] [place] [address] [address] [place] [address] Care Team Providers Care Retail Wireless Sales Representative Name Role Phone JIM VILLANUEVA - 2ND [...] inophen 5 mg-325 mg tablet 024 02/16/20 [facility] , [address] [place] [address], [address], 21:36:06 Patient TargetsNo targets recorded. Patient InstructionsNo instructions recorded. Reason for Referral None Reported. Problems Name Problem SNOMED Code Status Onset Date Resolution Date Notes Provider Name and Address Organization Details Recorded Time Orthostatic hypotension 46743180 Active 2023 Ivelisse Hart MD [address] [facility], [address], [place], [address], [facility] 4 18:24:49 Chest pain 03754840 Active 2023 Ivelisse Hart MD 38 [facility], [address], [place], [address], [facility] 4 18:27:24 Bifascicula r block 06588028 Active 2023 Ivelisse Hart MD [address] , [address], [place], [address], [facility] 4 18:31:47 Thrombocyto penic disorder 963667194 Active 2023 Ivelisse Hart MD 38 [facility], [address], [place], [address], [facility] 4 18:43:24 Intellectua l disability 721221042 Active 2023 Ivelisse Hart MD 38 [facility], [address], [place], [address], [facility] 4 18:44:22 Gastroesoph ageal reflux disease without esophagitis 667952492 Active 2023 Ivelisse Hart MD [address] [place] [address], [address], [place], [address], [facility] 4 18:54:10 Obesity 854177147 Active 2023 Ivelisse Hart MD 38 [facility], [address], [place], [address], [facility] 4 18:54:57 Mixed anxiety and depressive disorder 921636344 Active 2023 Ivelisse Hart MD [address] [place] [address], [address], [place], [address], [facility] 4 18:57:08 Pain of knee region 8809414105 Active 2023 Ivelisse Hart MD [address] [place] [address], [address], [place], [address], [facility] 4 18:58:16 Obstructive sleep apnea syndrome 95995272 Active 2023 Ivelisse Hart MD [address] [place] [address], [address], [place], [address], [facility] 4 19:03:46 Harmful pattern of use of alcohol 79867200 Active 2023 Ivelisse Hart MD 38 [facility], [address], [place], [address], [facility] 4 19:06:12 Migraine 63132850 Active 2023 Ivelisse Hart MD 38 [facility], [address], [place], [address], [place] [facility] 4 19:10:43 Frequent attender of emergency room 2004871096988 04 Active 2023 Ivelisse Hart MD 38 [facility], [address], [place], [address], [place] [facility] 4 19:12:29 Mental retardation Active 2017 Razia Brooklin null, [facility] 8 16:10:41 Atrial fibrillatio n 26543514 Active 2017 Razia Kitty null, [facility] 8 16:10:46 Tetralogy of Fallot 17618872 Active 2017 Razia Kitty null, [facility] 8 16:10:59 Essential hypertensio n 20223543 Active 2017 Razia Brooklin null, [facility] 8 16:11:14 Mixed hyperlipide crescencio 400775471 Active 2017 Razia Kitty null, [place] [facility] 8 16:11:21 Benign prostatic hyperplasia 633954952 Active 2017 Razia Brooklin null, [facility] 8 16:11:26 Chronic obstructive pulmonary disease 17933270 Active 2017 Razia Brooklin null, [place] [facility] 8 16:11:31 Diabetes mellitus 77422135 Active 2017 Razia Kitty null, [facility] 8 16:17:50 Hypothyroid ism 34666398 Active 2017 Razia Brooklin null, [place] [facility] 8 16:19:53 Ankle pain 936317227 Active 2017 SHANNON LORD 38 [facility], [address], [place], [address], [facility] 8 15:59:07 Problem Notes None recorded. Medical Equipment None Reported. Allergies Allergen ID Allergen Name Allergen Category Reaction Reaction Severity Criticality Documentation Date Start Date Code Code System Note Provider Name and Address Organization Details Recorded Time 13013 Pisum sativum (pea) extract food other Not available high 02/12/2024 45520 12 RxNorm green peas Not Available Not Available Not Available 88594 honey bee venom medicatio n other Not available high 02/12/2024 10427 7 RxNorm unkno wn Not Available Not Available Not Available 9916 Lipitor medicatio n Not available Not available Not available 06/22/2017 94356 5 RxNorm Not Available Not Available Not [...] Address Organization Details Last Updated DateTime 4 647443. 58 g 81 /min 18 /min 97.6 [degF] 94 % 94 % 143 mm[Hg] 83 mm[Hg] Ashley Irwin NP [address] , [address], [place], [address] , [facility] 4 13:22:45 Date Recorded Body height Body mass index (BMI) Body weight Heart rate Respiratory rate Body temperature Oxygen saturation Oxygen saturation in Arterial blood by Pulse oximetry Systolic blood pressure Diastolic blood pressure Provider Name and Address Organization Details Last Updated DateTime 4 175.26 cm 36.5 kg/m2 768848. 11 g 8 /min 18 /min 98 [degF] 98 % 98 % 146 mm[Hg] 76 mm[Hg] Ivelisse Hart MD [address] , [address], [place], [address], [facility] 4 18:18:26 Date Recorded Body height Body mass index (BMI) Body weight Heart rate Respiratory rate Body temperature Oxygen saturation Oxygen saturation in Arterial blood by Pulse oximetry Systolic blood pressure Diastolic blood pressure Provider Name and Address Organization Details Last Updated DateTime 4 175.26 cm 37.1 kg/m2 363205. 68 g 79 /min 16 /min 97.7 [degF] 97 % 97 % 148 mm[Hg] 82 mm[Hg] Ashley Irwin NP 38 [facility], [address], [place], [address], [facility] 4 10:54:45 Date Recorded Heart rate Respiratory rate Body temperature Oxygen saturation Oxygen saturation in Arterial blood by Pulse oximetry Systolic blood pressure Diastolic blood pressure Provider Name and Address Organization Details Last Updated DateTime 8 83 /min 23 /min 98.3 [degF] 97 % 97 % 130 mm[Hg] 71 mm[Hg] SHANNON CALIXTO 38 [facility], [address], [place], [address], [facility] 8 15:45:03 Date Recorded Heart rate Oxygen saturation Oxygen saturation in Arterial blood by Pulse oximetry Systolic blood pressure Diastolic blood pressure Provider Name and Address Organization Details Last Updated DateTime 8 74 /min 96 % 96 % 128 mm[Hg] 76 mm[Hg] Razia Kitty [facility] 8 15:09:30 Social History Question Answer Notes LastModified by Organizat ion Details LastModified Time Tobacco Smoking Status Never Smoker Ivelisse Hart MD 38 [facility] [address], [place], [address], [facility] 02/16/2024 17:40:34 Do You Have An [...] Do You Have A Medical Power Of Physician Office Nurse? Yes Information not available 02/16/2024 What Was [...] conjugate PCV 13 3 completed Dary Farmer [facility] 02/12/2024 13:04:57 pneumococcal polysaccharide PPV23 2 completed Dary Farmer [facility] 02/12/2024 13:05:19 pneumococcal polysaccharide PPV23 8 completed Dary Farmer [facility] 02/12/2024 13:05:29 influenza, unspecified formulation 2 completed Dary Farmer [facility] 02/12/2024 13:05:46 influenza, unspecified formulation 4 completed Dary Farmer [facility] 02/12/2024 13:05:53 SARS-COV-2 (COVID-19) vaccine, UNSPECIFIED 1 completed Dary Farmer [facility] 02/12/2024 13:06:09 SARS-COV-2 (COVID-19) vaccine, UNSPECIFIED 1 completed Dary Farmer [facility] 02/12/2024 13:06:18 SARS-COV-2 (COVID-19) vaccine, UNSPECIFIED 2 completed Dary Farmer [facility] 02/12/2024 13:06:26 influenza, unspecified formulation 3 completed Daryshadi Farmer dontae [place] [facility] 02/12/2024 13:06:49 Tdap 4 completed Dary diggs [place] [facility] 02/12/2024 13:07:12 Past Encounters Encounter ID Performer Location Encounter Start Date Encounter Closed Date Diagnosis/Indication Diagnosis SNOMED-CT Code Diagnosis ICD10 Code Diagnosis Note [id number] Razia Tang [facility] on [address] [place] [address] 06/22/2017 16:05:35 06/27/2017 08:58:26 Mental retardation 52732522 F78 Supportive careHCP not invoked-ap pears capable of making own medical decisions presently Atrial fibrillation 4943 6004 I48.0 Not on anticoagul ationASA 81 mg dailySotal ol 160 mg BIDMonitor HR Tetralogy of Fallot 8629 9006 Q21.3 Hx ofs/p repair and shunt Essential hypertension 74332961 I10 Norvasc 2.5 mg dailySotal ol 160 mg BIDMonitor bp and labs Mixed hyperlipidemia 267 792258 E78.2 Diet controlled Will check lipid panel Benign pro static hyperplasia 902173276 N40.0 s/p TURP in Mar.Report ing dysuria-wi ll obtain urine for UA, C&SMonitor Chronic ob structive pulmonary disease 10242301 J43.8 Duonebs prnMonitor respirator y status Diabetes mellitus 476841 09 E11.9 Glipizide 5 mg dailyMetfo rmin 1000 BID Monitor accuchecks HbA1c excellent 06/20-follo w Hypothyroidism 79663809 E03.8 Levothyrox ine 75 mcg dailyTSH wnl 03/28/17Re peat annually Gastroesop hageal reflux disease without esophagitis 895760631 K21.9 Omeprazole 20 mg dailyMonit or sxs Loose stool 058041023 R1 9.5 Monitor loose stools-if continuing will obtain [place]. [place] [id number] Razia Tang [facility] on [address] [place] [address] 07/14/2017 12:51:22 07/19/2017 09:56:01 Tetralogy of Fallot 89929462 Q21.3 Hx ofs/p repair and shuntCardi ology eval prn Atrial fibrillation 4943 6004 I48.0 Not on anticoagul ationASA 81 mg dailySotal ol 160 mg BID-add parameters to hold for HR <55Obtain EKG due to c/o chest painMonito r and if chest pain worsening or associated with SOB send to ED for eval [id number] SHANNON CALIXTO [facility] on [address] [place] [address] 07/25/2017 15:44:04 07/27/2017 10:54:49 Atrial fibrillation 49954978 I48.0 Not on anticoagul ationASA 81 mg dailySotal ol 160 mg BID-add parameters to hold for HR <55sent back from ED with no changes, chest pain resolved with tramadol 50 mg Tetralogy of Fallot 8629 9006 Q21.3 Hx ofs/p repair and shuntCardi ology eval prn Ankle pain 013239724 M25 .572 Pain in left ankle, achillesPT to eval and treat [id number] Razia Tang [facility] on [address] [place] [address] 08/10/2017 14:47:44 08/17/2017 14:44:41 Atrial fibrillation 40886615 I48.0 Not on anticoagul ationASA 81 mg dailySotal ol 160 mg BIDHR stableF/u with cardiology , PCP Tetralogy of Fallot 8629 9006 Q21.3 Hx ofs/p repair and shuntCardi ology eval prn Ankle pain 479068024 M25 .572 Pain in left ankle, achilles-p atient reports hx of torn achillesPa in control with tramadolOu tpatient f/u with PCP to consider surgical repair Mental retardation 27747 005 F78 Supportive careServic es in place for discharge home Essential hypertension 52502969 I10 Norvasc 2.5 mg dailySotal ol 160 mg BIDBP with good control Mixed hyperlipidemia 267 421790 E78.2 Diet controlled Will check lipid panel Benign pro static hyperplasia 226408435 N40.0 s/p TURP in Mar.F/u with urology prn Chronic ob structive pulmonary disease 49139173 J43.8 Duonebs prnMonitor respirator y status Diabetes mellitus 230809 09 E11.9 Glipizide 5 mg dailyMetfo rmin 1000 BID Monitor accuchecks F/u with PCP Hypothyroidism 72034175 E03.8 Levothyrox ine 75 mcg dailyTSH wnl 03/28/17Re peat annually Gastroesop hageal reflux disease without esophagitis 345642885 K21.9 Omeprazole 20 mg dailyMonit or sxs [id number] Ashley Irwin NP [address] [place] [address] 02/12/2024 12:59:52 02/13/2024 09:38:01 Atrial fibrillation 33405282 I48.0 has AICD with hx of teralogy of fallotriva roxaban 20 mg po dailySotal ol 80 mg BIDHR stableF/u with cardiology on 02/25 and 02/26? Tetralogy of Fallot 8629 9006 Q21.3 Hx ofs/p repair and shunt with AICD in placeCardi ology eval prn Mental retardation 02009 005 F79 Supportive careServic es in place for discharge home Essential hypertension 63679588 I10 contSotalo l 80mg BIDbp stablecons ider restarting lisinopril and isosorbide Mixed hyperlipidemia 267 502128 E78.2 Diet controlled monitor Benign pro static hyperplasia 918197963 N40.0 s/p TURP in Mar.tamulo sin on hold due to ortho bp, consider restarting F/u with urology prn Chronic ob structive pulmonary disease 62740922 J43.8 breo ellipta 100 mcg/25 mcg 1 puff dailyDuone bs prnalb prnMonitor respirator y status Diabetes mellitus 885996 09 E11.9 Metformin 500 mg BIDMonitor accuchecks monitor Hypothyroidism 14224798 E03.8 Levothyrox ine 75 mcg dailytsh aboveRepea t prn Gastroesop hageal reflux disease without esophagitis 880627019 K21.9 esomeprazo le 20 mg dailyMonit or sxs Obesity 645757762 E66.9 pt with obesitydie tician consult for good nutritiona l choicescar diac dietmonito r Peripheral neuropathy due to type 2 diabetes mellitus 3683761661 107 E11.42 gabapentin 300 mg po bidGlipizi de 5 mg dailyMetfo rmin 1000 BIDMonitor accuchecks Mixed anxi ety and depressive disorder 541314372 F41.8 risperidon e 1.5 mg po qhsquetiap ine 100 mg po qhaescital opram 20 mg po dailyhydro xyzine 25 mg po bidlorazep am 0.5 mg po daily prn anxietytra zodone 50 mg po qhsmonitor Pain of knee region 1003 449015 M25.569 [place] [facility] [place] for acute concernsno ibuprophen due to xarelto per ptlidocain e patch to right knee on in amtyl 650 mg po tid and prn nte 3 gram/24 hrsmonitor Obstructiv e sleep apnea syndrome 23435339 G47.33 has osapt reports his cpap broke and was supposed to get one today but missed his apptresche d apptmonito r Chest pain 98281491 R07. 9 resolvedpt had [facility] [place] [facility] [place] ruled out acute cardiac disease and returned to rehabmonit or Orthostati c hypotension 46413201 I95.1 pt with orthostati c hypotensio n upon standing, resolved with 1 liter of fluid and decreased bp medsencour age po fluidspt educated and aware to get up slowlypt had lisinopril , isosorbide , and tamsulosin heldplan to restart one by one as ableorthos tatic bp daily x 2 weeks, doc in pcc Adult fail ure to thrive syndrome 707465527 R62.7 pt reports 11 hospitaliz ations for falls since 04/2022 and feels if he needs to [facility] he is open to it.monitor Recurrent falls 16151561 2 R29.6 pt with recurrent fallssuppo rtive caretherap y eval and treatortho static bp, get up slowly with walkermoni tor Asthenia 79240500 R53.1 pt with weaknessPT /OT eval and treatmonit or [id number] [facility] [address] 02/16/2024 16:01:25 02/19/2024 11:53:18 Chest pain 89831601 R07.89 Chronic and recurrent ACS ruled out numerous times.Cont inue tx with gabapentin 300 mg TID, APAP 650 mg TID and 650 mg q 4 hrs prn (NTE TD of 3000 mg/d).Does have NTG SL ordered, but unclear if he needs this.Monit or sxs.Do not send to ED for CP unless changes in VS. Orthostati c hypotension 32446476 I95.1 BP has not been orthostati c since here.No other vitals checked since 02/11.Maida mendoza well with rehab.Cont inue PT/OT for strengthen [...] F/U with cardio as planned. Essential hypertension 75027280 I10 With some borderline SBPs since here, but mostly in good control off lisinopril , isosorbide and tamsulosin .Would hesitate to restart any anti-hyper tensives unless SBP consistent ly >150, due to hx of orthostasi s.Monitor BP, pulse and labs. Mixed hyperlipidemia 267 978067 E78.2 Continue ezetimibe 10 mg qd.F/U as outpt. Benign pro static hyperplasia 847274458 N40.0 No current sxs.Tamsul osin on hold due to orthostati c hypotensio n, consider restarting .F/u with uro as planned Diabetes mellitus 425126 09 E11.9 Fingerstic ks checked twice fasting since here, both low.Hga1C was borderline at 6.9Continu e metformin 500 mg BIDMonitor fingerstic ks prn and adjust meds as outpt. Hypothyroidism 89152646 E03.8 TSH WNL.Contin ue levothyrox ine 75 mcg qdMonitor TSH yearly. Gastroesop hageal reflux disease without esophagitis 671454981 K21.9 No current sxs.Contin ue esomeprazo le 20 mg qdMonitor GI sxs Obesity 769003141 E66.09 Continue to encourage healthy eating and physical activity.D ietician consult.Chris juandenis wts. Mixed anxi ety and depressive disorder 153565103 F41.8 With hx of behaviors, but good since here.Quentin nue risperidon e 1.5 mg qhs, quetiapine 100 mg qhs, escitalopr am 20 mg qd, hydroxyzin e 25 mg BID, trazadone 50 mg qhs, melatonin 10 mg qhs, and lorazepam 0.5 mg po qd prn.Mood good today.Neelima tor mood.Consu lt psych prn Pain of knee region 1003 392628 M25.561 Not discussed today.Cont inue meds as above and lidocaine patch qd.PT/OT as above.Neelima tor Obstructiv e sleep apnea syndrome 03951950 G47.33 Currently without CPAP, needs f/u appt to get new one.Nursin g to reschedule . Recurrent falls 27260965 2 R29.6 As above. Bifascicular block 71629 [address] I45[address].Work ing well per last hosp check.F/U with cardio as planned, on 02/26 at 1:30 for office visit and 2:20 for device check at [address] Thrombocyt openic disorder 799357239 D69.59 Have been running low for many years. I suspect due to EtOH, but much consider rivaroxaba n effect also.No change in tx unless plts drop to <50,000 or signs of bleeding. Intellectu al disability 234959063 F70 Able to make his own decisions. Provide supportive care.Monit or function. Asthma 600567664 J45.30 No current sxs.Contin ue Breo ellipta 100/25 mcg 1 puff qd and albuterol MDI 2 puffs q 4 hrs prn.Monito r resp status Chronic neck pain 666965 0358 107 M54.2 It seems he has different c/o on different days, but today he says he's had neck pain for awhile.Gomez l add Percocet 5/325 mg qhs at pt's request.OK as long as only one tab/day.Co ntinue other meds as above.Cons ider increasing gabapentin . Harmful pa ttern of use of alcohol 01227855 F10.11 Sober for almost 11 months, very proud of himself.qu it after almost dying after drinking a whole bottle of peppermint schnapps last march.W as in sober house until recently.N ow following up with AA and sponsor.En courage continued sobriety. Migraine 70395699 G43.90 9 Sees neuro.No sxs since here.Quentin nue sumatripta n 50 mg BID prn.Monito r sxs. Frequent a ttender of emergency room 4417196928 79282 Z76.89 With multiple ED visits at various facilities .Only rarely with documentab le problem.Ne eds to make care plan with PCP and home health as outpt.Avoi d transfer to ED while here unless clearly acute problem. [id number] Ashley Irwin NP [facility] [address] 02/22/2024 10:53:07 02/23/2024 10:15:01 Orthostatic hypotension 31842276 I95.1 BP has not been orthostati c since here.bp 148/82 todayDoing well with rehab.Cont inue PT/OT for strengthen ing, balance, gait training, safety and function.C ontinue fall precaution s.Monitor for safety.Mon itor orthostati c vitals daily doc in the medical center and monitor sxs. Chest pain 68393933 R07. 89 Chronic and recurrent ACS ruled out numerous times.with notable history of tetrology of fallotwork ed up for chest pain in ED 02/20Conti nuegabapen tin 300 mg TID, APAP 650 mg TID and 650 mg q 4 hrs prn (NTE TD of 3000 mg/d).NTG SL prn chest pain, call 911 if he uses thisMonito r sxs. Bifascicular block 62343 003 I45[address].Work ing well per last hosp check.F/U with cardio as planned, on 02/26 at 1:30 for office visit and 2:20 for device check at [address] Recurrent falls 82293484 2 R29.6 As above. Atrial fibrillation 4943 6004 I48.0 Rate in good control on sotalol 80 mg BID.Contin ueXarelto 20 mg qd for AC.Monitor HR and bleeding risk.F/U with cardio. Tetralogy of Fallot 8629 9006 Q21.3 Hx ofs/p repair and shunt placement. F/U with cardio as planned. Essential hypertension 99019680 I10 overall bp stable with some 140sdecent control off lisinopril , isosorbide and tamsulosin .Would hesitate to restart any anti-hyper tensives unless SBP consistent ly >150, due to hx of orthostasi s.Monitor BP, pulse and labs. Thrombocyt openic disorder 684320410 D69.59 Have been running low for many years. I suspect due to EtOH, but much consider rivaroxaba n effect also.No change in tx unless plts drop to <50,000 or signs of bleeding. Intellectu al disability 513811945 F70 Able to make his own decisions. Provide supportive care.Monit or function. Chronic neck pain 827897 3174 107 M54.2 It seems he has different c/o on different days, but today he says he's had neck pain for awhile.con tPercocet 5/325 mg qhs (added per md at pt's request.)C ontinue other meds as above.Cons ider increasing gabapentin if persists Mixed hyperlipidemia 267 013366 E78.2 Continue ezetimibe 10 mg qd.F/U as outpt. Benign pro static hyperplasia 803133532 N40.0 No current sxs.Tamsul osin on hold due to orthostati c hypotensio n, consider restarting .F/u with uro as planned Asthma 263083361 J45.30 No current sxs.Contin ue Breo ellipta 100/25 mcg 1 puff qd and albuterol MDI 2 puffs q 4 hrs prn.Monito r resp status Diabetes mellitus 344046 09 E11.9 Fingerstic ks checked twice fasting since here, both low.Hga1C was borderline at 6.9Continu emetformin 500 mg BIDMonitor fingerstic ks prn and adjust meds as outpt. Hypothyroidism 62119290 E03.8 TSH WNL.Contin uelevothyr oxine 75 mcg qdMonitor TSH yearly. Gastroesop hageal reflux disease without esophagitis 400512005 K21.9 No current sxs.Contin ueesomepra zole 20 mg qdMonitor GI sxs Obesity 432384956 E66.09 Continue to encourage healthy eating and physical activity.D ietician consult.[place] nitor wts. Mixed anxi ety and depressive disorder 808369812 F41.8 With hx of behaviors, but good since here.Quentin nuerisperi done 1.5 mg qhs, quetiapine 100 mg qhs, escitalopr am 20 mg qd, hydroxyzin e 25 mg BID, trazadone 50 mg qhs, melatonin 10 mg qhs, and lorazepam 0.5 mg po qd prn.Monito r mood.Consu lt psych prn Pain of knee region 1003 943391 M25.561 Continue meds as above and lidocaine patch qd.PT/OT as above.Neelima tor Obstructiv e sleep apnea syndrome 99485463 G47.33 Currently without CPAP, needs f/u appt to get new one.Nursin g to reschedule . Harmful pa ttern of use of alcohol 96376700 F10.11 Sober for almost 11 monthsquit after almost dying after drinking a whole bottle of peppermint schnapps last march.W as in sober house until recently.N ow following up with AA and sponsor.En courage continued sobriety. Migraine 65366935 G43.90 9 Sees neuro.No sxs since here.Quentin nuesumatri ptan 50 mg BID prn.Monito r sxs. Frequent a ttender of emergency room 6483884507 32923 Z76.89 With multiple ED visits at various [...] Member ID Guarantor Name 07/25/2017 2 [place] [facility] Joaquín Barrientos [id number] Finance Dept [facility] 07/25/[address] [facility] - DOS PRIOR TO 2022 - DUAL ELIGIBLE (MEDICARE REPLACEMENT/AD VANTAGE - HMO) Joaquín Barrientos [id number] Finance Dept [facility] 08/10/2017 2 [place] [facility] Joaquín Teranrott [id number] Finance Dept [facility] 08/10/2017 1 [facility] - DOS PRIOR TO 2022 - DUAL ELIGIBLE (MEDICARE REPLACEMENT/AD VANTAGE - HMO) Joaquín Teranrott [id number] Finance Dept [facility] 02/12/2024 2 [place] [facility] Joaquín Floyd [id number] Finance Dept [facility] 02/12/2024 1 [facility] - DOS ON OR AFTER 2022 - MEDICARE [place]VANTAGE [place] (MEDICARE REPLACEMENT/AD VANTAGE - PPO) Joaquín Floyd [id number] Finance Dept [facility] 02/16/2024 2 [place] [facility] [facility] Joaquín Floyd [id number] [facility] 02/16/2024 1 [employer] - DOS ON OR AFTER 2022 - MEDIC[place]AGE [place] ([place]IC[place]PLAC[place]/AD VANTAGE - PPO) Joaquín Goehner [id number] [facility] 02/22/2024 2 [place]: [facility] Joaquín Goehner [id number] [facility] 02/22/2024 1 [employer] - DOS ON OR AFTER 2022 - [place]IC[place]AC[place]/AD VANTAGE - PPO) Joaquín Goehner [id number] [facility] Notes Date Note Type [...] can help with the discomfort. SHANNON CALIXTO [address] [place] [address], [address], [place], [address], [facility] 07/25/2017 16:00:05 08/10/2017 text/html 57 yo male [...] repair following discharge. Razia diggs [place] - [facility] 08/10/2017 15:11:11 02/12/2024 text/html Pt seen for an initial intake summary. Joaquín is a 64 yo male LTC resident seen at [facility] for Chest pain PMH:mental retardation, a. fib, AICD, tetralogy of fallot s/p repair/shunt, htn, hld, bph, ponce, COPD, TURP. Pt is a 64 yr old man who presented to [facility] with weakness and dizziness and right knee [...] to rehab he was later sent to [facility] for chest pain on 02/10 and discharged [...] of breath. MOLST: full code Ashley Irwin, EVP OF PRODUCTS & CO FOUNDER [address] [facility], [address], [place], [address], [place] [employer] 02/12/2024 14:58:46 02/16/2024 text/html This is a 64 yo man who is here for rehab after an acute hospitalization for a syncopal episode.[facility] on f[facility] an episode which he [...] non-acute.Of note, he had been in the [facility] ED or admitted 14 times over the past 6 months, also some visits at [facility] and [facility]. With c/o of falls, syncope and CP. [...] on 02/09.After admission he developed CP on 11/10 and was transferred back to the [facility] ED.W/U was essentially neg, except for sl [...] since 03/2023, and obesity. 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 Due to dizziness and syncopal [...] Of note, he had been in the [facility] ED or other ED s admitted and for CP 16 times over the past 6 months, also some visits at [facility] and [facility]. With c/o of falls, syncope and CP. Per last admission:Lisinopril, isosorbide as well as tamsulosin have been held in the hospital, he will be discharged without these, to a rehab. [facility] discharge, these could be reintroduced 1 after the other based on his symptoms/blood pressure. Ashley Irwin NP [address] [facility], [address], [place], [address], [facility] [employer] 02/22/2024 11:20:05
--- OUTSIDE RECORDS SUMMARY | 2024-07-30 14:05 | XMS_ITS | Clinical Summary ---
Author Organization [facility] Address [address] [place] [address] Care Team Providers Care Assembling Machine Operator Name Role Phone Patient, Has No Pcp Or Ref Primary Care Provider Unavailable Allergies Active Allergy Reactions Criticality Noted Date [...] he presented to the emergency room at [facility]. He was discharged from the emergency room, later that same night he started noticing chest pressure radiating to his left ribs around 1 AM last night. He was supposedly on his way to the [facility] and [facility] when his chest pressure began. He has [...] for UGIB ppx GERD (gastroesophageal reflux disease) Assessment & Plan (03/17/2023 1:23 PM EST): [...] global hypokinesis, dilated RV, mild AR, mild AL and moderate TR. He has also been [...] global hypokinesis, dilated RV, mild AR, mild AL and moderate TR. He has also been [...] of 45%. Follows with Dr. Nix at [place]. etiology of HF was Non-ischemic cardiomyopathy, s/p [...] [facility] AICD placement 05/2016. His primary field support rep is Dr. Tobin, and takes Toprol Xl [...] (08/19/2019): Added automatically from request for surgery [id number] Assessment & Plan (03/04/2023 4:14 PM EST): Patient complaining of left sided chest pain which is at least sometimes reproducible. Patient has had extensive cardiac workup in the past at [facility], and [facility] which has all been negative. Coronary CT has been -ve, Nuclear stress test was also -ve for any ischemic changes. Patient did have 12 beats of Vtach which was noted on tele but was not seen on ICD interrogration at [place]. Echo was done at [facility] in February which was normal as [...] tomorrow Arrange f/u soon with his primary field support rep Non-cardiac chest pain 07/26/2019 Assessment & Plan [...] no evidence of ischemia although apical anterior VA cannot be excluded due to known right [...] on T waves. Patient states that his Tip Tester had discussed ablation with him in the [...] of Fallot, status postrepair (remote). Follows at [facility] and [facility]. 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 Assessment [...] heparin drip if cardiac cath is warranted [id number] Stroke Risk (5-year stroke rate based on [...] history of paroxysmal AF, not on anticoagulation ([id number] of 1). He currently takes Toprol XL [...] recently. PT/OT recommends short term rehab. Plan: -environmental services aide recs for placement -Fall precautions Encounters Date Type Department Care Team Description 07/11/2024 9:51 PM EDT - 07/12/2024 2:59 AM EDT Emergency [facility] Emergency Department [address] [place] [address] Grant Cox MD Chest pain, unspecified type (Primary Dx) Discharge Disposition: Home or Self Care (01) from Last 3 Months Immunizations Immunization Administration Dates Next Due Influenza, Injectable, Quadrivalent, Preservativ e Free 03/17/2023 Family History Relation Name Status Comments Father Mother Social [...] 03/05/2023 5:13 PM EST Plan of Treatment Health Maintenance Due Date Last Done Comments Cologuard 1960 Colonoscopy 1962 Sigmoidoscopy 1962 Ophthalmology Exam 01/26/1972 Urine Microalbumin 01/26/1972 Zoster Vaccines (1 of 2) 01/26/2012 RSV Vaccine (60+ years old and patients) (1 - Risk 60-74 years 1-dose series) 2022 COVID-19 Vaccine ( season) 2023 06/03/2020, 05/06/2020 Alcohol/Substance Use Screening 04/03/2024 Depression Screening and Follow-Up 04/03/2024 Social Drivers of Health Annual Screening 04/03/2024 Hemoglobin A1C 12/14/2024 06/13/2024, 01/02, 10/03/2022, Additional history exists Colon Cancer Screening 02/11/2025 FOBT / Fit Test 02/11/2025 02/12/2024 Basic Metabolic Panel 07/11/2025 07/11/2024 , 07/07/2024, 06/23/2024, Additional history exists DTaP,Tdap,and Td Vaccines (8 - Td or Tdap) 12/13/2033 12/14/2023, 10/05/2012, 11/26/1996, Additional history exists Pneumococcal Vaccine: 50+ Years Completed 12/01/2022, 02/08/2018, 04/19/2011, Additional history exists HIV Screening Completed 12/12/2023, 12/12/2023 Hepatitis C Screening Completed 12/12/2023, 020 Influenza Vaccine Completed 02/08/2024, , 03/17/2023, Additional history exists Hepatitis B Vaccines Aged Out No long er eligible based on patient's age to complete this topic Procedures * Due to [place] state law, this organization might not be [...] to Health Maintenance Results * Due to [place] state law, this organization might not be [...] obtain the completed interpretation. ? Workstation ID: [id number] Narrative 07/12/2024 1:02 AM EDT EXAMINATION: XR [...] No pneumothorax is seen. Resulting Agency Comment [id number] Procedure Note Sean Arango MD - 07/12/2024 [...] possible to obtain thecompleted interpretation. Workstation ID: [id number] us Grant Cox MD IMG XR PROCEDURES Final Res ult * Repeat Troponin #2 (07/11/2024 10:59 PM EDT) Only the most recent of3 resultswithin the time period is included. Troponin T High Sensitivity 9 <=21 ng/L 07/11/2024 11:42 PM EDT [facility] Comment: Hj-Pipscven-K level of 52 ng/L or higher at [...] be evaluated in line with the 4th [place] Definition of AMI. Troponin baseline and serial [...] BLOOD ORDERABLES Final Result Performing Organization Address City/[facility]/ZIP Co de Phone Number [facility] [address] [place] [address], [place] * Romano Top, Urine (07/11/2024 10:29 PM EDT) Pathologist [facility] Extra Tube Hold for add-ons. 07/12/2024 3:05 AM EDT [facility] Comment:Auto resulted. Urine Urine specimen collection, clean catch / Unknown Non-Blood Collection / Unknown 07/11/2024 10:29 PM EDT 07/11/2024 10:33 PM EDT Grant Cox MD LAB URINE ORDERABLES Final Result Performing Organization Address City/[facility]/ZIP Co de Phone Number [facility] [employer] [facility] [address] [place] [address], [place] * Urinalysis W/Reflex to Microscopic & Culture (07/11/2024 10:29 PM EDT) Color, Urine Light Yellow Colorless, Light Yellow, Yellow, Dark Yellow 07/11/2024 10:42 PM EDT [facility] Clarity, Urine Clear Clear 07/11/2024 10:42 PM EDT [facility]PITALUromedicaBARBERTON [facility] [employer] [facility] Specific [place], Urine 1.013 <1.030 07/11/2024 10:42 PM EDT [email or web address] pH, Urine 6.0 4.6 - 8.0 07/11/2024 10:42 PM EDT [facility] [employer] [facility] Protein, Urine Negative Negative 07/11/2024 10:42 PM EDT [facility]CTS[facility]NM [facility] [employer] [facility] Glucose, Urine Normal Normal 07/11/2024 10:42 PM EDT [facility]ITALUromedicaBARBERTON [facility] [employer] [facility] Ketones, Urine Negative Negative 07/11/2024 10:42 PM EDT [email or web address] [employer] [facility] Bilirubin, Urine Negative Negative 07/11/2024 10:42 PM EDT [email or web address] Blood, Urine Negative Negative 07/11/2024 10:42 PM EDT [facility] Nitrite, Urine Negative Negative 07/11/2024 10:42 PM EDT [email or web address] Urobilinogen, Urine Normal Normal 07/11/2024 10:42 PM EDT [email or web address] [employer] [facility] Leukocyte Esterase, Urine Negative Negative 07/11/2024 10:42 PM EDT [facility] [employer] [facility] Urine Urine specimen collection, clean catch / Unknown Non-Blood Collection / Unknown 07/11/2024 10:29 PM EDT 07/11/2024 10:33 PM EDT us Grant Cox MD LAB URINE ORDERABLES Final Result [facility] [address] [place] [address], * Lipase (07/11/2024 9:13 PM EDT) Lipase 32 13 - 60 U/L 07/11/2024 10:54 PM EDT [facility] Blood Structure of peripheral vein / Unknown Venipuncture / Unknown 07/11/2024 9:13 PM EDT 07/11/2024 9:23 PM EDT us Grant Cox MD LAB BLOOD ORDERABLES Final Result [facility] [employer] [facility] [facility] [address] [place] [address], * Hepatic Function Panel (07/11/2024 9:13 PM EDT) Total Protein 6.2 6.0 - 8.0 g/dL 07/11/2024 10:54 PM EDT [facility] Albumin 3.9 3.5 - 5.2 g/dL 07/11/2024 10:54 PM EDT [facility] Globulin, Total 2.3 2.1 - 4.2 g/dL 07/11/2024 10:54 PM EDT [facility] Bilirubin, Total 0.4 0.2 - 1.2 mg/dL 07/11/2024 10:54 PM EDT [facility] Bilirubin, Direct 0.2 <=0.4 mg/dL 07/11/2024 10:54 PM EDT [facility] Alkaline Phosphatase 69 35 - 129 U/L 07/11/2024 10:54 PM EDT [facility] AST 17 10 - 40 U/L 07/11/2024 10:54 PM EDT [facility] ALT 17 10 - 40 U/L 07/11/2024 10:54 PM EDT [facility] Bilirubin, Indirect 0.20 <=0.70 mg/dL 07/11/2024 10:54 PM EDT [facility] A/G Ratio 1.7 1.5 - 3.0 07/11/2024 10:54 PM EDT [facility] Blood Structure of peripheral vein / Unknown Venipuncture / Unknown 07/11/2024 9:13 PM EDT 07/11/2024 9:23 PM EDT Grant Cox MD LAB BLOOD ORDERABLES Final Result Performing Organization Address City/[facility]/ZIP Co de Phone Number [facility]ITALGridG[facility] Systems [facility] [address] [place] [address], [place] * ECG 12 lead (07/11/2024 3:18 PM EDT) Only the most recent of2 resultswithin the time period is included. Ventricular Rate EKG 75 BPM MUSE EKG Atrial Rate 75 BPM MUSE EKG AL Interval 200 ms MUSE EKG QRS Interval 168 ms MUSE EKG QT Interval 450 ms MUSE EKG QTC Interval 502 ms MUSE EKG P Star 64 degrees MUSE EKG R Star 109 degrees MUSE EKG T Wave Star 57 degrees MUSE EKG 07/11/2024 3:18 PM EDT 07/21/2024 12:51 PM EDT Impressions MUSE EKG - 07/21/2024 12:51 PM EDT NORMAL SINUS RHYTHM RIGHT BUNDLE BRANCH BLOCK ABNORMAL ECG WHEN COMPARED WITH ECG OF 11-JUL-2024 14:31, (UNCONFIRMED) NO SIGNIFICANT CHANGE WAS FOUND Confirmed by Michael Shelton ([id number]) on 07/21/2024 12:51:31 PM Grant Cox MD ECG ORDERABLES Final Resul t MUSE EKG * (ABNORMAL) CBC Auto Differential (07/11/2024 2:30 PM EDT) WBC 7.5 3.8 - 10.8 10*3/uL 07/11/2024 2:53 PM EDT [facility] RBC 4.03(L) 4.20 - 5.80 10*6/uL 07/11/2024 2:53 PM EDT [facility] Hemoglobin 11.0(L) 13.2 - 17.1 g/dL 07/11/2024 2:53 PM EDT [facility] Hematocrit 34.5(L) 38.5 - 50.0 % 07/11/2024 2:53 PM EDT [facility] MCV 85.6 80.0 - 100.0 fL 07/11/2024 2:53 PM EDT [facility] MCH 27.3 27.0 - 33.0 pg 07/11/2024 2:53 PM EDT [facility] MCHC 31.9(L) 32.0 - 36.0 g/dL 07/11/2024 2:53 PM EDT [facility] RDW 13.6 11.0 - 15.0 % 07/11/2024 2:53 PM EDT [facility] Platelets 81(L) 140 - 400 10*3/uL 07/11/2024 2:53 PM EDT [facility] MPV 11.7 7.5 - 12.5 fL 07/11/2024 2:53 PM EDT [facility] Neutrophil % 64.9 % 07/11/2024 2:53 PM EDT [facility] Immature Grans % 2.3(H) 0.0 - 0.9 % 07/11/2024 2:53 PM EDT [facility] Lymphocyte % 18.8 % 07/11/2024 2:53 PM EDT [facility] Monocyte % 9.2 % 07/11/2024 2:53 PM EDT [facility] Eosinophil % 3.7 % 07/11/2024 2:53 PM EDT [facility] Basophil % 1.1 % 07/11/2024 2:53 PM EDT [facility] Neutrophil # 4.87 1.50 - 7.80 10*3/uL 07/11/2024 2:53 PM EDT [facility]hmatxCTUromedicaBARBERTON [facility] [employer] [facility] Immature Grans # 0.17(H) <=0.03 10*3/uL 07/11/2024 2:53 PM EDT [facility]ITALUromedicaBARBERTON [facility] - [facility] Lymphocyte # 1.40 0.85 - 3.90 10*3/uL 07/11/2024 2:53 PM EDT [facility]ITALUromedicaBARBERT[facility] - [facility] Monocyte # 0.70 0.20 - 0.95 10*3/uL 07/11/2024 2:53 PM EDT [facility]ITALUromedicaBAR[facility] - [facility] Eosinophil # 0.30 0.02 - 0.50 10*3/uL 07/11/2024 2:53 PM EDT [facility]ITALUromedicaBAR[facility] - [facility] Basophil # 0.10 0.00 - 0.20 10*3/uL 07/11/2024 2:53 PM EDT [facility]ITALUromedicaC[facility] [employer] [facility] nRBC % 0.0 /100 WBCs 07/11/2024 2:53 PM EDT [facility]ITALUromedicaCLEVEL[facility] [employer] [facility] nRBC # <0.01 <0.01 10*3/uL 07/11/2024 2:53 PM EDT [facility] [employer] [facility] Blood Structure of peripheral vein / Unknown Venipuncture / Unknown 07/11/2024 2:30 PM EDT 07/11/2024 2:47 PM EDT us Grant Cox MD LAB BLOOD ORDERABLES Final Result [facility] [employer] [facility] [address] [place] [address], [place] * (ABNORMAL) Basic Metabolic Panel (07/11/2024 2:30 PM EDT) NA 140 135 - 145 mmol/L 07/11/2024 3:20 PM EDT [facility]edicaBAR[facility] [employer] [facility] K 4.1 3.5 - 5.3 mmol/L 07/11/2024 3:20 PM EDT [facility] Cl 105 98 - 107 mmol/L 07/11/2024 3:20 PM EDT [facility] [employer] CO2 23 22 - 32 mmol/L 07/11/2024 3:20 PM EDT [facility] [employer] BUN 16 7 - 23 mg/dL 07/11/2024 3:20 PM EDT [facility] [employer] [facility] Creatinine 1.25 0.60 - 1.30 mg/dL 07/11/2024 3:20 PM EDT [facility]ITALUromedicaC[facility] [employer] [facility] Glucose 156(H) 65 - 99 mg/dL 07/11/2024 3:20 PM EDT [facility]ITALUromedicaCLEVEL[facility] [employer] [facility] Calcium 8.0(L) 8.6 - 10.5 mg/dL 07/11/2024 3:20 PM EDT [facility]ITALUromedicaBAR[facility] [employer] [facility] Anion Gap 12 5 - 15 07/11/2024 3:20 PM EDT [facility]ITALUromedicaC[facility] [employer] [facility] eGFR 65 >=60 mL/min/1. 73m2 07/11/2024 3:20 PM EDT [facility]ITALUromedicaC[facility] [employer] [facility] Comment:The estimated glomer ular filtration rate (eGFR) is calculated using a new formula developed by the NKF-ASN task force to eliminate race-based correction factors. The new formula uses serum/plasma creatinine, age, and gender to determine eGFR. A value below 60mls/min might indicate kidney disease and will be flagged. For additional information, see Jose et al, Am J Kidney Dis. 2021;79(2):268- 288, A Unifying Approach for GFR estimation: Recommendations of the NKF-ASN Task Force on Reassessing the Inclusion of Race in Diagnosing Kidney Disease . Blood Structure of peripheral vein / Unknown Venipuncture / Unknown 07/11/2024 2:30 PM EDT 07/11/2024 2:47 PM EDT us Grant Cox MD LAB BLOOD ORDERABLES Final Result [facility] [address] [place] [address], [place] * HEART & VASCULAR - SCANNED (07/11/2024) Anatomical Region Laterality Modality Other us Onbase Scan Diane SCANNED PROCEDURES Final Resu lt * (ABNORMAL) Hemoglobin A1c (10/03/2022 8:30 AM EDT) Hemoglobin A1C 6.7(H) <5.7 % of total Hgb 10/03/2022 4:36 PM EDT [employer] Comment: For someone without known diabetes, a [...] (MG/DL) 146 mg/dL 10/03/2022 4:36 PM EDT [employer] eAG (MMOL/L) 8.1 mmol/L 10/03/2022 4:36 PM EDT [employer] Blood Structure of peripheral vein / Unknown Venipuncture / Unknown 10/03/2022 8:30 AM EDT 10/03/2022 8:36 AM EDT Narrative [facility] - 10/03/2022 4:36 PM EDT [facility] Received Date: Dank Bob MD LAB BLOOD ORDERABLES Final Res ult [place] [address] [facility] [address], [place] [address], [place] [phone] [employer] [facility] [address] [facility] [address], [place] [address], [place] [phone] * Hepatitis C Antibody w/Reflex to HCV RNA, Quantitative PCR (08/27/2019 2:07 PM EDT) Hepatitis C Antibody NON-REACT GALO NON-REACT GALO 08/28/2019 1:42 AM EDT [employer] [facility] Signal To Cut-Off 0.08 <1.00 08/28/2019 1:42 AM EDT [employer] [facility] Comment: HCV antibody was non-reactive. There is no laboratory evidence of HCV infection. In most cases, no further action is required. However, if recent HCV exposure is suspected, a test for HCV RNA (test code 08449) is suggested. For additional information please refer to http://education.[facility]/faq/PLD47t6 (This link is being provided for informational/ educational purposes only.) Blood Structure of peripheral vein / Unknown Venipuncture / Unknown 08/27/2019 2:07 PM EDT 08/27/2019 2:13 PM EDT Narrative [facility] - 08/28/2019 1:42 AM EDT [facility] Received Date: Jomar Leung MD LAB BLOOD ORDERABLES Final Resul t [facility] [address] [facility] [address], [place] [address], [employer] 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
--- OUTSIDE RECORDS SUMMARY | 2024-07-30 14:06 | XMS_ITS | Encounter Summary ---
Author Organization [employer] Address [address] [facility] [address] [place] [address] Care Team Providers Care Credit Specialist Name Role Phone Lauren Whittaker MD Primary Care Pro vider Encounter Details Date Type Department Care Team ([facility] Contact Info) Description 06/03/[address] [address] Provider, Not In System Social [...] us know they sent this patient to [facility] for chest pains. (He does not appear to be one of ours) documented in this encounter Plan of Treatment Upcoming Encounters Date Type Department Care Team (Late st Contact Info) Description 08/22/2024 2:15 PM EDT Office Visit [facility] [address] [place] [address] Lauren Whittaker MD [address] [place] [address] documented as of this encounter Visit Diagnoses Not on filedocumented in this encounter Additional Health Concerns Assessment Noted Time PHQ-9 Depression Total Score: 12 025 12:41 PM EST documented as of this encounter Care Teams Credit Specialist Relationship Specialty Start Date End Date Lauren Whittaker MD [address] [place] [id number] PCP - General Internal Medicine 11/15/23 [facility] 03/08/24 documented as of this encounter
--- OUTSIDE RECORDS SUMMARY | 2024-07-30 14:06 | XMS_ITS | Encounter Summary ---
Author Organization [employer] Address [address] [place] [address] Care Team Providers Care Performance Improvement Consultant Name Role Phone Lauren Whittaker MD Primary Care Pro vider Reason for Visit * Reason Comments Med Refill Encounter Details Date Type Department Care Team ([facility] st Contact Info) Description 06/27/2024 Refill [facility] [address] [place] [address], [place] [phone] Gretel Sosa, ANP [address] [place] [address] Social History Tobacco Use Types Packs/Day Years [...] Description 08/22/2024 2:15 PM EDT Office Visit [facility] [address] [place] [phone] Lauren Whittaker MD [address] [place] [phone] documented as of this encounter Visit Diagnoses Not on filedocumented in this encounter Additional Health Concerns Assessment Noted Time PHQ-9 Depression Total Score: 12 025 12:41 PM EST documented as of this encounter Care Teams Performance Improvement Consultant Relationship Specialty Start Date End Date Lauren Whittaker MD [address] [place] [phone] PCP - General Internal Medicine 11/15/23 [facility] 03/08/24 documented as of this encounter
--- OUTSIDE RECORDS SUMMARY | 2024-07-30 14:06 | XMS_ITS | Clinical Summary ---
Author Organization [facility] [employer] [facility] Address [address] [place] [address] Phone Care Team Providers Care Distribution [facility] Supervisor Name Role Phone DavionAmari kraus Primary Care Provider [phone] Allergies Active Allergy Reactions Criticality Noted Date Comments Atorvastatin Hives,Rash Medium 10/01/2013 Medications albuterol HFA (PROAIR HFA ; PROVENTIL HFA ; VENTOLIN HFA) 90 mcg/actuation inhaler Inhale 1-2 puffs every 4-6 hours as needed for shortness of breath. 7 g 5 05/10/19 26 Active Active Problems No known active problems Encounters Date Type Department Care Team Description 07/24/2024 6:13 AM EDT - 07/24/2024 9:[address] [facility] [address] [place] [address] Aram Sun MD Chest wall pain (Primary Dx) Discharge Disposition: Home or Self Care 07/17/2024 10:35 PM EDT - 07/18/2024 4:[address] [facility] [address] [place] [address] Non-cardiac chest pain (Primary Dx); Chronic right flank pain Discharge Disposition: Home or Self Care 07/07/2024 9:21 AM EDT - 07/07/2024 2:[address] [facility] [address] [place] [address] Britton Elaine MD Chest pain, unspecified type (Primary Dx) Discharge Disposition: Home or Self Care 06/23/2024 6:06 AM EDT - 06/23/2024 9:[address] [facility] [address] [place] [address] Rex Vargas MD Precordial chest pain (Primary Dx) Discharge Disposition: Home or Self Care 05/10/2024 3:22 PM EST - 05/10/2024 4:[address] [facility] [address] [place] [phone] Chest pain on breathing (Primary Dx) Discharge Disposition: Home or Self Care 05/05/2024 12:28 PM EST - 05/05/2024 4:[address] [facility] [address] [place] [phone] Britton Elaine MD Chest pain, unspecified type (Primary Dx) Discharge Disposition: Home or Self Care from Last 3 Months Surgical History Surgery Date Site/Laterality Comments CARDIAC PACEMAKER PLACEMENT PROCEDURE:CARDIAC PACEMAKER PLACEMENT;COMMENT:[facility] TETRALOGY OF FALLOT REPAIR PROCEDURE:TETRALOGY OF FALLOT REPAIR Medical History Medical History Date Comments Tetralogy of Fallot DX:Tetralogy of Fallot Atrial fibrillation ([facility] V24, [facility] V28) DX:Atrial fibrillation (HCC) Hypertension DX:Hypertension Diabetes mellitus ([facility]/HCC V24, [facility] V28) DX:Diabetes mellitus (HCC) Hypercholesteremia DX:Hyperchole steremia Sleep apnea, obstructive DX:Slee p apnea, obstructive Seizures ([facility] V24, [facility] V28) 01/06/2015 DX:Seizures ([facility]) Depression Right bundle branch block Family History Medical History Relation Name Comments [...] Sign Reading Time Taken Comments Blood Pressure 142/70 07/24/2024 9:08 AM EDT Pulse 52 07/24/2024 9:08 AM EDT Temperature 36.7 ??C (98.1 ??F) 07/24/2024 9:08 AM ED T Respiratory Rate 16 07/24/2024 9:08 AM EDT Oxygen Saturation 100% 07/24/2024 9:08 AM EDT Inhaled Oxygen Concentration - - Weight 109 kg (240 lb) 07/24/2024 1:52 AM EDT Height 175.3 cm (5' 9 ) 07/24/2024 1:52 AM EDT Body Mass Index 35.44 07/24/2024 1:52 AM EDT Plan of Treatment Health Maintenance Due Date Last Done Comments Diabetes: Annual Foot Exam 01/26/1972 Diabetes: Annual Retina Eye Exam 01/26/1972 Hepatitis A Vaccines (1 of 2 - Risk 2-dose series) 1981 Zoster Vaccines (1 of 2) 01/26/2012 RSV Immunization Adult Patients (1 - Risk 60-74 years 1-dose series) 2022 Colorectal Cancer Screening: Colonoscopy 03/06/2022 Medicare Annual Wellness Visit 03/06/2022 Social Influencers of Health Screening 03/06/2022 Diabetes: Annual Urine Albumin-Creatinine Ratio (uACR) 03/21/2022 COVID-19 Vaccine ( season) 2023 03/08/2022, 06/03/2020, 05/06/2020 Diabetes: Blood Sugar Control Test (HGBA1C) 12/14/2024 06/13/2024, 02/12/2024, 12/12/2023, Additional history exists Depression Screening 04/29/2025 04/29/2024 Diabetes: Annual GFR (Glomerular Filtration Rate) 07/24/2025 07/24/2024, 07/17/2024, 07/11/2024, Additional history exists Hypertension/CHF/CAD Annual BMP Blood Test 07/24/2025 07/24/2024, 07/17/2024, 07/11/2024, Additional history exists Cholesterol Screening (Lipid Panel) [...] Screening Completed 12/12/2023 Hepatitis C Screening Completed 12/12/2023, 020 [...] age to complete this topic Meningococcal B Vaccine Aged Out No l onger eligible based on patient's age to complete this topic RSV Immunization Patients Under 20 months Aged Out No longer eligible based on patient's age to complete this topic Varicella Vaccines Aged Out No longer eligible based on patient's age to complete this topic Procedures Procedure Name Priority Date/Time Associated Diagnosis Comments ECG ANNOTATED 07/25/2024 CT ABDOMEN PELVIS W CONTRAST STAT 07/24/2024 8:39 AM EDT URINALYSIS WITH REFLEX MICROSCOPIC STAT 07/24/2024 8:01 AM EDT URINALYSIS WITH REFLEX MICROSCOPIC STAT 07/24/2024 8:01 AM EDT TROPONIN I HIGH SENSITIVITY STAT 07/24/2024 6:43 AM EDT CBC WITH AUTO DIFFERENTIAL STAT 07/24/2024 4:40 AM EDT B-TYPE NATRIURETIC PEPTIDE STAT 07/24/2024 4:40 AM EDT MAGNESIUM STAT 07/24/2024 4:40 AM EDT LIPASE STAT 07/24/2024 4:40 AM EDT COMPREHENSIVE METABOLIC PANEL STAT 07/24/2024 4:40 AM EDT CBC AND DIFFERENTIAL STAT 07/24/2024 4:40 AM EDT TROPONIN I HIGH SENSITIVITY STAT 07/24/2024 4:40 AM EDT XR CHEST 2 VIEWS STAT 07/24/2024 2:56 AM EDT ECG 12-LEAD STAT 07/24/2024 2:13 AM EDT WARNER URINE CULTURE TUBE STAT 07/18/2024 2:35 AM EDT URINALYSIS WITH REFLEX MICROSCOPIC AND CULTURE STAT 07/18/2024 2:35 AM EDT URINALYSIS WITH REFLEX MICROSCOPIC AND CULTURE STAT 07/18/2024 2:35 AM EDT TROPONIN I HIGH SENSITIVITY STAT 07/18/2024 1:[address] ABDOMEN PELVIS W CONTRAST STAT 07/18/2024 12:36 AM EDT ECG ANNOTATED 07/18/2024 XR CHEST 2 VIEWS STAT 07/17/2024 11:2 9 PM EDT ECG 12-LEAD STAT 07/17/2024 11:04 PM EDT CBC WITH AUTO DIFFERENTIAL STAT 07/17/2024 10:57 PM EDT B-TYPE NATRIURETIC PEPTIDE STAT 07/17/2024 10:57 PM EDT MAGNESIUM STAT 07/17/2024 10:57 PM EDT LIPASE STAT 07/17/2024 10:57 PM EDT COMPREHENSIVE METABOLIC PANEL STAT 07/17/2024 10:57 PM EDT CBC AND DIFFERENTIAL STAT 07/17/2024 10:57 PM EDT TROPONIN I HIGH SENSITIVITY STAT 07/17/2024 10:57 PM EDT ECG ANNOTATED 07/08/2024 TROPONIN I HIGH SENSITIVITY STAT 07/07/2024 11:36 AM EDT CBC WITH AUTO DIFFERENTIAL STAT 07/07/2024 10:48 AM EDT B-TYPE NATRIURETIC PEPTIDE STAT 07/07/2024 10:48 AM EDT LIPASE STAT 07/07/2024 10:48 AM EDT TROPONIN I HIGH SENSITIVITY STAT 07/07/2024 10:48 AM EDT MAGNESIUM STAT 07/07/2024 10:48 AM EDT CBC AND DIFFERENTIAL STAT 07/07/2024 10:48 AM EDT COMPREHENSIVE METABOLIC PANEL STAT 07/07/2024 10:48 AM EDT ECG 12-LEAD STAT 07/07/2024 10:44 AM EDT XR CHEST 2 VIEWS STAT 07/07/2024 10:0 3 AM EDT ECG ANNOTATED 06/24/2024 TROPONIN I HIGH SENSITIVITY [...] EST ECG ANNOTATED 05/05/2024 ECG ANNOTATED 05/05/2024 HEMOGLOBIN A1C Routine 02/12/2024 6:11 AM EST Hypothyroidism, unspecified Paroxysmal atrial fibrillation (CMS/HCC) from Last 3 Months or Most Recently Relevant to Health Maintenance Results * ECG-Annotated (07/25/2024) Only the most recent of8 resultswithin the time period is included. us Provider Onbase MD ECG ORDERABLES Final Result * CT Abdomen Pelvis w Contrast (07/24/2024 8:39 AM EDT) Only the most recent of2 resultswithin the time period is included. Anatomical Region Laterality Modality Body Computed Tomogra phy 07/24/2024 8:44 AM EDT Impressions 07/24/2024 8:53 AM EDT Impression: No acute abdominal process identified. Telerad PA ([id number]) -------- FINAL REPORT -------- Dictated By: Bruna Flores Dictated Date: 07/24/2024 08:44 ET Assigned Physician: Bruna Flores Reviewed and Electronically Signed By: Bruna Flores Signed Date: 07/24/2024 08:53 ET Workstation ID: [id number] Transcribed By: Self Edit Transcribed Date: 07/24/2024 08:44 ET Narrative 07/24/2024 8:53 AM EDT History: Right flank pain radiating to the right groin. Personal history of tetralogy of Fallot status post repair years ago. Comparison: 07/18/24, 12/11/23 Technique: Helical volumetric imaging of the abdomen and pelvis was performed during the uneventful intravenous administration of 90 cc Isovue-370. DLP: 1364.09 mGy/cm [employer] Locate VCT Iterative reconstruction technique Findings: The liver is normal in size and configuration. No masses are identified. The portal vein is patent. The gallbladder is physiologically distended. No evidence of biliary obstruction is seen. The spleen, pancreas and adrenal glands are unremarkable. The kidneys are small with smooth contours and intact nephrograms. No hydronephrosis or mass is seen. No renal or ureteral calculus is identified. There is mild atherosclerotic vascular calcification. No aortic aneurysm is seen. The hepatic artery is replaced to the SMA, and anatomic variant. There is no ascites. Mild bilateral inguinal lymphadenopathy is without significant change. No developing lymphadenopathy is seen. The prostate is mildly enlarged. The urinary bladder is empty, limiting assessment of its wall. No evidence of bowel obstruction is identified. There are scattered colonic diverticula. No specific findings of diverticulitis are seen. The appendix is normal in caliber and contains a small lists that is unchanged from the previous studies. No abnormal perienteric or pericolonic fat stranding is seen. Cardiac pacemaker leads are partially imaged in the right atrium and ventricle. A grade 1 anterolisthesis is noted at L5-S1, felt to be degenerative, unchanged. Lumbar disc degenerative changes are also seen. Procedure Note Bruna Flores MD - 07/24/2024 History: Right flank pain radiating to the right groin. Personal historyof tetralogy of Fallot status post repair years ago. Comparison: 07/18/24, 12/11/23 Technique: Helical volumetric imaging of the abdomen and pelvis wasperformed during the uneventful intravenous administration of 90 ccIsovue-370. DLP: 1364.09 mGy/cm [employer] VCT Iterative reconstruction technique Findings: The liver is normal in size and configuration. No masses are identified.The portal vein is patent. The gallbladder is physiologically distended.No evidence of biliary obstruction is seen. The spleen, pancreas and adrenal glands are unremarkable. The kidneys are small with smooth contours and intact nephrograms. Nohydronephrosis or mass is seen. No renal or ureteral calculus isidentified. There is mild atherosclerotic vascular calcification. No aortic aneurysmis seen. The hepatic artery is replaced to the SMA, and anatomicvariant. There is no ascites. Mild bilateral inguinal lymphadenopathy is withoutsignificant change. No developing lymphadenopathy is seen. The prostate ismildly enlarged. The urinary bladder is empty, limiting assessment of itswall. No evidence of bowel obstruction is identified. There are scatteredcolonic diverticula. No specific findings of diverticulitis are seen. Theappendix is normal in caliber and contains a small lists that is unchangedfrom the previous studies. No abnormal perienteric or pericolonic fatstranding is seen. Cardiac pacemaker leads are partially imaged in the right atrium andventricle. A grade 1 anterolisthesis is noted at L5-S1, felt to be degenerative,unchanged. Lumbar disc degenerative changes are also seen. IMPRESSION: Impression: No acute abdominal process identified. Parris BURDICK ([id number]) -------- FINAL REPORT -------- Dictated By: Bruna Flores Dictated Date: 07/24/2024 08:44 ET Assigned Physician: Bruna Flores Reviewed and Electronically Signed By: Bruna Flores Signed Date: 07/24/2024 08:53 ET Workstation ID: [id number] Transcribed By: Self Edit Transcribed Date: 07/24/2024 08:44 ET Aram Sun MD IM CT PROCEDURES Final Result * Urinalysis with reflex microscopic (07/24/2024 8:01 AM EDT) Specific [place] Urine 1.024 1.003 - 1.030 LAB URINALYSIS - AUTOMATED METHOD 07/24/2024 8:40 AM [facility] pH, Urine 5.5 5.0 - 8.0 pH LAB URINALYSIS - AUTOMATED METHOD 07/24/2024 8:40 AM [facility] Leukocytes, Urine Negative Negative LAB URINALYSIS - AUTOMATED METHOD 07/24/2024 8:40 AM [facility] Nitrite, Urine Negative Negative LAB URINALYSIS - AUTOMATED METHOD 07/24/2024 8:40 AM [facility] Protein, Urine Negative <=Trace mg/dL LAB URINALYSIS - AUTOMATED METHOD 07/24/2024 8:40 AM [facility] Glucose, Urine Negative Negative mg/dL LAB URINALYSIS - AUTOMATED METHOD 07/24/2024 8:40 AM [facility] Ketones, Urine Negative Negative mg/dL LAB URINALYSIS - AUTOMATED METHOD 07/24/2024 8:40 AM [facility] Urobilinogen, Urine 0.2 0.2 - 1.0 mg/dL LAB URINALYSIS - AUTOMATED METHOD 07/24/2024 8:40 AM [facility] Bilirubin, Urine Negative Negative LAB URINALYSIS - AUTOMATED METHOD 07/24/2024 8:40 AM [facility] Blood, Urine Negative Negative LAB URINALYSIS - AUTOMATED METHOD 07/24/2024 8:40 AM [facility] Urine Urine specimen obtained by clean catch procedure / Unknown Non-blood Collection / Unknown 07/24/2024 8:01 AM EDT 07/24/2024 8:33 AM EDT us Rex Vargas MD LAB URINE ORDERABLES Raegan l Result Performing Organization Address [facility] de Phone Number [facility] [address] [place] [address], [place] [phone] * Troponin I high sensitivity (07/24/2024 6:43 AM EDT) Only the most recent of12 resultswithin the time period is included. [facility] High Sensitivity Troponin I 5 <=79 ng/L LAB CHEMISTRY METHOD 07/24/2024 8:31 AM EDT [facility] Blood Venous blood specimen / Unknown Venipuncture / Unknown 07/24/2024 6:43 AM EDT 07/24/2024 7:54 AM EDT Narrative [facility] - 07/24/2024 8:31 AM EDT High levels of biotin in samples may falsely decrease hsTroponin values. ??Use caution when interpreting hsTroponin results in patients taking biotin who exhibit renal impairment (eGFR <60) or in patients taking more than 20 mg/day of biotin. us Rex Vargas MD LAB BLOOD ORDERABLES Raegan l Result Performing Organization Address [facility] de Phone Number [facility] [address] [place] [address], [place] [phone] * (ABNORMAL) CBC auto differential (07/24/2024 4:40 AM EDT) Only the most recent of6 resultswithin the time period is included. [facility] WBC 6.4 4.8 - 10.8 [facility] LAB HEMETOLOGY METHOD 07/24/2024 5:32 AM EDT [facility] RBC 4.20(L) 4.50 - 5.50 M/mcL LAB HEMETOLOGY METHOD 07/24/2024 5:32 AM [facility] Hemoglobin 11.6(L) 13.5 - 17.5 g/dL LAB HEMETOLOGY METHOD 07/24/2024 5:32 AM [facility] Hematocrit 36.4(L) 42.0 - 54.0 % LAB HEMETOLOGY METHOD 07/24/2024 5:32 AM [facility] MCV 87.3 79.0 - 98.0 FL LAB HEMETOLOGY METHOD 07/24/2024 5:32 AM [facility] MCH 27.8 27.0 - 32.0 pcg LAB HEMETOLOGY METHOD 07/24/2024 5:32 AM [facility] MCHC 31.9(L) 32.0 - 37.0 g/dL LAB HEMETOLOGY METHOD 07/24/2024 5:32 AM [facility] RDW 14.3 11.0 - 15.0 % LAB HEMETOLOGY METHOD 07/24/2024 5:32 AM [facility] Platelets 78(L) 130 - 400 K/mcL LAB HEMETOLOGY METHOD 07/24/2024 5:32 AM [facility] Comment:previously verified by slide MPV 11.7(H) 7.0 - 11.0 FL LAB HEMETOLOGY METHOD 07/24/2024 5:32 AM [facility] NRBC 0.0 <1.0 % LAB HEMETOLOGY METHOD 07/24/2024 5:32 AM [facility] NRBC Absolute 0.00 <0.10 K/mcL LAB HEMETOLOGY METHOD 07/24/2024 5:32 AM [facility] Neutrophils Relative 53.2 % LAB HEMETOLOGY METHOD 07/24/2024 5:32 AM [facility] Lymphocytes Relative 22.0 % LAB HEMETOLOGY METHOD 07/24/2024 5:32 AM [facility] Monocytes Relative 15.3 % LAB HEMETOLOGY METHOD 07/24/2024 5:32 AM [facility] Eosinophils Relative 6.8 % LAB HEMETOLOGY METHOD 07/24/2024 5:32 AM [facility] Basophils Relative 1.1 % LAB HEMETOLOGY METHOD 07/24/2024 5:32 AM [facility] Immature Granulocytes Relative 1.6 % LAB HEMETOLOGY METHOD 07/24/2024 5:32 AM [facility] Neutrophils Absolute 3.38 1.50 - 7.00 K/mcL LAB HEMETOLOGY METHOD 07/24/2024 5:32 AM [facility] Lymphocytes Absolute 1.40 1.00 - 5.00 K/mcL LAB HEMETOLOGY METHOD 07/24/2024 5:32 AM [facility] Monocytes Absolute 0.97 0.20 - 1.00 K/mcL LAB HEMETOLOGY METHOD 07/24/2024 5:32 AM [facility] Eosinophils Absolute 0.43 0.00 - 0.50 K/mcL LAB HEMETOLOGY METHOD 07/24/2024 5:32 AM [facility] Basophils Absolute 0.07 0.00 - 0.20 K/mcL LAB HEMETOLOGY METHOD 07/24/2024 5:32 AM [facility] Immature Granulocytes Absolute 0.10(H) 0.00 - 0.03 K/mcL LAB HEMETOLOGY METHOD 07/24/2024 5:32 AM [facility] Blood Venous blood specimen / Unknown Venipuncture / Unknown 07/24/2024 4:40 AM EDT 07/24/2024 5:06 AM EDT us Rex Vatrenko MD LAB BLOOD ORDERABLES Raegan l Result Performing Organization Address City/[facility]/ZIP Co de Phone Number [facility] [address] [place] [address], [place] [phone] * B-type natriuretic peptide (07/24/2024 4:40 AM EDT) Only the most recent of4 resultswithin the time period is included. Pathologist [facility] BNP 35 <=100 pcg/mL LAB CHEMISTRY METHOD 07/24/2024 6:08 AM EDT [facility] Blood Venous blood specimen / Unknown Venipuncture / Unknown 07/24/2024 4:40 AM EDT 07/24/2024 5:05 AM EDT us Rex Vargas MD LAB BLOOD ORDERABLES Raegan l Result Performing Organization Address [facility] de Phone Number [facility] [address] [place] [address], [place] [phone] * Magnesium (07/24/2024 4:40 AM EDT) Only the most recent of6 resultswithin the time period is included. Pathologist [facility] Magnesium 2.3 1.9 - 2.6 mg/dL LAB CHEMISTRY METHOD 07/24/2024 5:28 AM EDT [facility] Blood Venous blood specimen / Unknown Venipuncture / Unknown 07/24/2024 4:40 AM EDT 07/24/2024 5:06 AM EDT us Rex Vargas MD LAB BLOOD ORDERABLES Raegan l Result Performing Organization Address [facility] Co de Phone Number [facility] [address] [place] [address], [place] [phone] * Lipase (07/24/2024 4:40 AM EDT) Only the most recent of6 resultswithin the time period is included. [facility] Signature Lipase 41 13 - 75 unit/L LAB CHEMISTRY METHOD 07/24/2024 5:28 AM [facility] Blood Venous blood specimen / Unknown Venipuncture / Unknown 07/24/2024 4:40 AM EDT 07/24/2024 5:06 AM EDT us Rex Vargas MD LAB BLOOD ORDERABLES Raegan hernandez Result [facility] [address] [place] [address], [place] [phone] * (ABNORMAL) Comprehensive metabolic panel (07/24/2024 4:40 AM EDT) Only the most recent of6 resultswithin the time period is included. [facility] Sodium 138 133 - 145 mmol/L LAB CHEMISTRY METHOD 07/24/2024 5:28 AM [facility] Potassium 4.3 3.5 - 5.5 mmol/L LAB CHEMISTRY METHOD 07/24/2024 5:28 AM [facility] Chloride 106 96 - 110 mmol/L LAB CHEMISTRY METHOD 07/24/2024 5:28 AM [facility] CO2 29 21 - 32 mmol/L LAB CHEMISTRY METHOD 07/24/2024 5:28 AM [facility] Anion Gap 3 3 - 11 LAB CHEMISTRY METHOD 07/24/2024 5:28 AM [facility] Glucose 116(H) 70 - 100 mg/dL LAB CHEMISTRY METHOD 07/24/2024 5:28 AM [facility] BUN 23 5 - 25 mg/dL LAB CHEMISTRY METHOD 07/24/2024 5:28 AM [facility] Creatinine 1.45(H) 0.70 - 1.30 mg/dL LAB CHEMISTRY METHOD 07/24/2024 5:28 AM [facility] eGFR 54(L) >=60 mL/min/1. 73m2 LAB CHEMISTRY METHOD 07/24/2024 5:28 AM [facility] Comment:Calculation based on the??Chronic Kidney Disease Epidemiology Collaboration (CKD-EPI) equation refit??without adjustment for race. BUN/Creatinine Ratio 15.9 LAB CHEMISTRY METHOD 07/24/2024 5:28 AM [facility] Calcium 7.8(L) 8.5 - 10.5 mg/dL LAB CHEMISTRY METHOD 07/24/2024 5:28 AM [facility] AST (SGOT) 23 10 - 42 unit/L LAB CHEMISTRY METHOD 07/24/2024 5:28 AM [facility] ALT (SGPT) 34 10 - 60 unit/L LAB CHEMISTRY METHOD 07/24/2024 5:28 AM [facility] Alkaline Phosphatase 80 42 - 121 unit/L LAB CHEMISTRY METHOD 07/24/2024 5:28 AM [facility] Total Protein 6.6 6.0 - 8.0 g/dL LAB CHEMISTRY METHOD 07/24/2024 5:28 AM [facility] Albumin 3.6 3.2 - 5.0 g/dL LAB CHEMISTRY METHOD 07/24/2024 5:28 AM [facility] Total Bilirubin 0.5 0.0 - 1.4 mg/dL LAB CHEMISTRY METHOD 07/24/2024 5:28 AM [facility] Blood Venous blood specimen / Unknown Venipuncture / Unknown 07/24/2024 4:40 AM EDT 07/24/2024 5:06 AM EDT us Rex Vargas MD LAB BLOOD ORDERABLES Raegan mary Result [facility] [address] [place] [address], * XR Chest 2 Views (07/24/2024 2:56 AM EDT) Only the most recent of6 resultswithin the time period is included. Anatomical Region Laterality Modality Body Radiographic Masha ging 07/24/2024 8:08 AM EDT Impressions 07/24/2024 8:09 AM EDT No acute findings. -------- FINAL REPORT -------- Dictated By: Wander Hutchison Dictated Date: 07/24/2024 08:08 ET Assigned Physician: Wander Hutchison Reviewed and Electronically Signed By: Wander Hutchison Signed Date: 07/24/2024 08:09 ET Workstation ID: [id number] Transcribed By: Self Edit Transcribed Date: 07/24/2024 08:08 ET Narrative 07/24/2024 8:09 AM EDT PROCEDURE: PA and lateral radiographs of the chest. HISTORY: chest pain. COMPARISON: 07/17/2024. FINDINGS: Left-sided pacemaker/automatic implantable cardiac defibrillator generator with stable right atrial and right ventricular leads. ??Sternotomy wires; most appears fractured. ??Stable mild cardiomegaly. ??Lungs, pleural spaces, and pulmonary vasculature are normal. ??Thin syndesmophytes in the thoracic spine. Procedure Note Wander Hutchison MD - 07/24/2024 PROCEDURE: PA and lateral radiographs of the chest. HISTORY: chest pain. COMPARISON: 07/17/2024. FINDINGS: Left-sided pacemaker/automatic implantable cardiac defibrillator generatorwith stable right atrial and right ventricular leads. Sternotomy wires;most appears fractured. Stable mild cardiomegaly. Lungs, pleural spaces,and pulmonary vasculature are normal. Thin syndesmophytes in the thoracicspine. IMPRESSION: No acute findings. -------- FINAL REPORT -------- Dictated By: Wander Hutchison Dictated Date: 07/24/2024 08:08 ET Assigned Physician: Wander Hutchison Reviewed and Electronically Signed By: Wander Hutchison Signed Date: 07/24/2024 08:09 ET Workstation ID: [id number] Transcribed By: Self Edit Transcribed Date: 07/24/2024 08:08 ET us Rex Vargas MD IMG XR PROCEDURES Final R esult * ECG 12 lead (07/24/2024 2:13 AM EDT) Only the most recent of8 resultswithin the time period is included. Ventricular Rate ECG 82 BPM GEMUSE Atrial Rate 82 BPM GEMUSE P-R Interval 224 ms GEMUSE QRS Duration 180 ms GEMUSE Q-T Interval 436 ms GEMUSE QTc 509 ms GEMUSE P Wave [place] 63 degrees GEMUSE R [place] 103 degrees GEMUSE T [place] 46 degrees GEMUSE ECG Interpretation Sinus rhythm with 1st degree A-V block Right bundle branch block When compared with ECG of 17-JUL-2024 23:04, No significant change was found Confirmed by VIVIAN REID ([id number]) on 07/24/2024 8:53:01 PM GEMUSE 07/24/2024 2:13 AM EDT 07/24/2024 8:53 PM EDT us Rex Vargas MD ECG ORDERABLES Final Res ult GEMUSE * Urinalysis with reflex microscopic and culture (07/18/2024 2:35 AM EDT) Pathologist [facility] [place] Urine 1.015 1.003 - 1.030 LAB URINALYSIS - AUTOMATED METHOD 07/18/2024 3:12 AM EDT [facility] pH, Urine 6.0 5.0 - 8.0 pH LAB URINALYSIS - AUTOMATED METHOD 07/18/2024 3:12 AM EDT [facility] Leukocytes, Urine Negative Negative LAB URINALYSIS - AUTOMATED METHOD 07/18/2024 3:12 AM EDT [facility] Nitrite, Urine Negative Negative LAB URINALYSIS - AUTOMATED METHOD 07/18/2024 3:12 AM EDT [facility] Protein, Urine Negative <=Trace mg/dL LAB URINALYSIS - AUTOMATED METHOD 07/18/2024 3:12 AM EDT [facility] Glucose, Urine Negative Negative mg/dL LAB URINALYSIS - AUTOMATED METHOD 07/18/2024 3:12 AM EDT [facility] Ketones, Urine Negative Negative mg/dL LAB URINALYSIS - AUTOMATED METHOD 07/18/2024 3:12 AM EDT [facility] Urobilinogen, Urine 0.2 0.2 - 1.0 mg/dL LAB URINALYSIS - AUTOMATED METHOD 07/18/2024 3:12 AM EDT [facility] Bilirubin, Urine Negative Negative LAB URINALYSIS - AUTOMATED METHOD 07/18/2024 3:12 AM EDT [facility] Blood, Urine Negative Negative LAB URINALYSIS - AUTOMATED METHOD 07/18/2024 3:12 AM T [facility] Urine Urine specimen obtained by clean catch procedure / Unknown Non-blood Collection / Unknown 07/18/2024 2:35 AM EDT 07/18/2024 2:54 AM EDT us Lewis BURDICK LAB URINE ORDERABLES Final Resul t Performing Organization Address [facility]/ZIP Co de Phone Number [facility] [address] [place] [address], [place] [phone] * Warner urine culture tube (07/18/2024 2:35 AM EDT) Extra Tube Hold for add-ons. 07/18/2024 4:01 AM EDT [facility] Comment:Auto resulted. Urine Urine specimen obtained by clean catch procedure / Unknown Non-blood Collection / Unknown 07/18/2024 2:35 AM EDT 07/18/2024 2:54 AM EDT us Lewis BURDICK LAB URINE ORDERABLES Final Resul t [facility] [address] [place] [address], * (ABNORMAL) Hemoglobin A1c (02/12/2024 6:11 AM EST) Hemoglobin A1C 6.9(H) <6.5 % LAB CHEMISTRY METHOD 02/12/2024 2:17 PM EST [facility] Mean Bld Glu Estim. 151 mg/dL LAB CHEMISTRY METHOD 02/12/2024 2:17 PM EST [facility] Blood Venous blood specimen / Unknown Venipuncture / Unknown 02/12/2024 6:11 AM EST 02/12/2024 9:15 AM EST us Erasto Henry MD LAB BLOOD ORDERABLES Final Resul t [facility] [address] [place] [address], from Last 3 Months or Most Recently Relevant to Health Maintenance Insurance [facility] [employer] Member Subscriber Plan / Payer (Ef fective 2013-Present) Name:Joaquín Barrientos Relation to Subscriber:Self Name:Joaquín Barrientos Payer ID:[id number] Group ID:[id number] Type:Not on file Address: [address] [facility] [place] [phone] Care Teams Distribution Center Supervisor Relationship Specialty Start Date End Date Amari Vyas DO [address] [place] [phone] PCP - General Internal Medicine 11/11/20
--- OUTSIDE RECORDS SUMMARY | 2024-07-30 14:06 | XMS_ITS | Clinical Summary ---
Author Organization [employer] Address [address] 7[address] [place] [address] Care Team Providers Care Director Of Capital Giving Name Role Phone Lauren Whittaker MD Primary [...] day. 30 tablet 3 06/14/19 25 Active tamsulosin (Flomax) 0.4 MG 24 hr capsule Take 1 capsule (0.4 mg) by mouth Once per day. Take 1 capsule every day by oral route. 30 capsule 3 07/02/19 25 Active tamsulosin (Flomax) 0.4 MG 24 hr capsule Take 1 capsule (0.4 mg) by mouth Once per day. Take 1 capsule every day by oral route. 30 capsule 3 02/01/20 24 025 Discontinued(Re order (will not trigger notification to Pharmacy)) traMADol (Ultram) 50 MG tabletIndicati ons:Rib pain on right side Take 1 tablet (50 mg) by mouth every 6 (six) hours if needed for severe pain for up to 5 days. 15 tablet 07/02/19 25 025 Hospital, Clinic, or Other Facility Administered Medication [...] cousin but it's only temporary. Pt has home care assistant with [facility] who is assisting with his living [...] (01/31/2024): Added automatically from request for surgery [id number] Last Assessment & Plan: Patient complaining of left sided chest pain which is at least sometimes reproducible. Patient has had extensive cardiac workup in the past at [facility], and [facility] which has all been negative. Coronary CT has been -ve, Nuclear stress test was also -ve for any ischemic changes. Patient did have 12 beats of Vtach which was noted on tele but was not seen on ICD interrogration at [place]. Echo was done at [facility] in February which was normal as well. [...] of 45%. Follows with Dr. Nix at [place]. etiology of HF was Non-ischemic cardiomyopathy, s/p [...] in place 11/06/2015 Overview (07/01/2024): [facility] AVILA serial #[id number] Dual Chamber ICD implanted 06/12/08 Obstructive sleep apnea syndrome 11/06/2015 Overview (07/01/2024): Uses BIPAP 14/10 with humidified air, needs to sleep at [...] cardiac catheterization. This catheterization was performed at [facility] on May. He was noted to have [...] online medical record.? -Carotid ultrasound performed at [facility] on July 06, 2007, that showed normal left vertebral artery flow. Exercise was not performed during that study, so they were unable to evaluate for reversal of flow.? -CT Head and Neck performed at [facility] on December 20, 2007. No acute [...] grade stenosis, -Frequent syncope on entrance to [facility], not to other hospitals -Stated VT and ICD shocks : on interrogation, no arrhythmia or shock -Multiple hospitalizations. Most recent October 2014 [facility], negative evaluation, then presented to [facility] via bus from [place], hospitalized, negative evaluation then came to [facility] wanting to be admitted, group home found 10/09/2014 Depressive disorder 10/14/2009 Overview (07/01/2024): Depression with overdose of Sotalol and Ativan 2012 Encounters * This document contains information received from the source organization and may not represent a complete record from that organization. Date Type Department Care Team Description 07/23/[address] [facility] [address] [place], [place] [phone] Coral Avendano, [place] 07/16/[address] [facility] [address] [place] [address] Lauren Whittaker MD ER Follow-up 07/01/2024 1:40 PM EDT Office Visit [facility] [address] [place], [place] [phone] Gaviota Isaacs MD Rib pain on right side (Primary Dx); Hematuria, unspecified type 07/01/[address] [facility] [address] [place] [phone] Gaviota Isaacs MD 06/27/[address] [facility] [address] [place] [phone] Gretel Sosa ANP 06/18/[address] [facility] [address] [place] [phone] Lauren Whittaker MD FYI 06/13/2024 10:40 AM EDT Office Visit [facility] [address] [place] [phone] Schizophrenia, unspecified type ([facility]) (Primary Dx); Type 2 diabetes mellitus with hyperglycemia, without long-term current use of insulin ([facility]) 06/11/[address] [phone] Lauren Whittaker MD May recalls 06/03/[address] [phone] Provider, Not In System 05/30/[address] [phone] Lauren Whittaker MD FYI 05/23/[address] [facility] [address] [place] [phone] Jesi Vargas RN 05/23/2024 Travel 05/22/[address] [facility] [address] [place] [phone] Lauren Whittaker MD 05/01/[address] [phone] Lauren Whittaker MD paperworks from Last 3 Months Immunizations Name Administration Dates Next Due COVID-19 Non-US Vaccine, Pro duct Unknown 03/08/2022 DTaP 11/26/1996, 3,09/02/1991,07/02,05/27/1991 HiB, unspecified 06/10/1992, 2,07/03/1991,05/27 Influenza injectable quadriv alent preservative free 03/17/2023,01/05/2022 Influenza, IIV3, injectable 02/17/2022,0 04/17/2018,06/22/2016,03/02,03/19/2013,01/28/2013,01/06/2012 ,01/24/2011,01/17/2010,12/31/2008,01/01 Influenza, Unspecified 01/04/2012 Influenza, live, intranasal 01/21/2009 Influenza, seasonal, injecta ble, preservative free 12/14/2023 Pneumococcal Conjugate PCV 20 12/01/2022 Pneumococcal Polysaccharide PPSV23 02/08/2018, Tdap 12/14/2023,10/05/2012 Family History Medical History Relation Name Comments COPD Brother COPD Father NE at 70s Mother DM2 Sister Relation Name [...] Description 08/22/2024 2:15 PM EDT Office Visit [facility] [address] [place] [phone] Lauren Whittaker MD [address] [place] [address] Health Maintenance Due Date Last Done Comments [...] ( season) 2023 03/08/2022, 06/03/2020, 05/06/2020 Diabetes: Urine Protein Screening 11/14/2024 11/15/2023 SDOH Screening 11/14/2024 11/15/2023 Lipid Panel 12/11/2024 12/12/2023 Diabetes: Hemoglobin A1C 12/14/2024 025, 02/12/2024, 12/12/2023, Additional history exists Depression Screening 04/29/2025 04/29/2024, 04/29/19 Tobacco Screening [...] Name Priority Date/Time Associated Diagnosis Comments XR RIBS 3 VIEWS RIGHT W CHEST 1 VIEW Routine 07/01/2024 3:54 PM EDT POCT GLYCATED HEMOGLOBIN, TOTAL Routine 06/13/2024 11:30 AM EDT Type 2 diabetes mellitus with hyperglycemia, without long-term current use of insulin (CMS/HCC) POCT GLUCOSE Routine 06/13/2024 11:30 AM EDT Type 2 diabetes mellitus with hyperglycemia, without long-term current use of insulin (CMS/HCC) HEPATITIS C AB W/REFL TO HCV RNA, [...] Recently Relevant to Health Maintenance Results * XR Ribs 3 Views Right with Chest 1 View (07/01/2024 3:54 PM EDT) Anatomical Region Laterality Modality Radiographic Masha ging 07/01/2024 3:54 PM EDT Narrative 07/01/2024 3:55 PM EDT ?[facility] ?[address] ?[place] [address] ?XRay Report ? Signed ? Patient: Pierce,Joaquín ?MR#: [id number] ?? 1 ? : 1960 ?Acct:[id number] ? Age/Sex: 64 / M ?ADM Date: 03/31/25 ? Loc: HO.HHCX ? Attending Dr: Gaviota Isaacs MD ? Ordering Physician: Gaviota Isaacs MD ?? Date of Service: 07/01/24 ?? Procedure(s): XR ribs RT min 3V w CXR1V ?? Accession Number(s): [id number] ? cc: Gaviota Isaacs MD ? CLINICAL HISTORY: PAIN ? Radiographs of the chest right ribs ? Comparison: CR/PA/SR - XR CHEST 2V - 05/23/24 14:47 EST ?? CT/SR - CT CHEST W IV CON - 04/26/24 13:57 EST ? Findings: ?? No rib fracture or other acute osseous abnormality. ?? Normal heart size. Left chest wall cardiac pacemaker/AICD. Remote median ?? sternotomy. ?? Normal mediastinal contours. ?? No pneumothorax. No opacity. No pleural effusion. ?? Normal upper abdomen. ? Impression: ?? No rib fracture or other acute findings. ? This document has been electronically signed by: Ruba Gentile MD ?? on 07/01/2024 15:54:37 ? Dictated By: ?Ruba Tristan MD ? Signed By: ?<Electronically signed by Ruba Tristan MD in OV> ? 07/01/24 1555 ? DD/ 1554 ? TD/TT: 07/01/24 1554 ? Digester Cook: ? Procedure Note Mar Farmer - 07/01/[address] [address] XRay Report Signed Patient: Jaret Barrientos#: [id number] 1 : 1960cct:[id number] Age/Sex: 64 / MADM Date: 07/01/24 Loc: HO.HHCX Attending Dr: Gaviota Isaacs MD Ordering Physician: Gaviota Isaacs MD Date of Service: 07/01/24 Procedure(s): XR ribs RT min 3V w CXR1V Accession Number(s): [id number] cc: Gaviota Isaacs MD CLINICAL HISTORY: PAIN Radiographs of the chest right ribs Comparison: CR/PA/SR - XR CHEST 2V - 05/23/24 14:[address]/SR - CT CHEST W IV CON - 04/26/24 13:57 EST Findings: No rib fracture or other acute osseous abnormality. Normal heart size. Left chest wall cardiac pacemaker/AICD. Remote median sternotomy. Normal mediastinal contours. No pneumothorax. No opacity. No pleural effusion. Normal upper abdomen. Impression: No rib fracture or other acute findings. This document has been electronically signed by: Ruba Gentile MD on 07/01/2024 15:54:37 Dictated By: Ruba Tristan MD Signed By: <Electronically signed by Ruba Tristan MD in OV> 07/01/241554 DD/ 155 TD/TT: 07/01/241553 Digester Cook: Gaviota Isaacs MD IMG XR PROCEDURES Final Result * (ABNORMAL) POCT A1C (06/13/2024 11:30 AM EDT) Hemoglobin A1C 6.9(A) 4.0 - 6.0 % Blood 06/13/2024 11:3 0 AM EDT Donna Walsh DO POINT OF CARE TEST ENTER/BENJAMIN T ORDERABLES Final Result * POCT glucose manually resulted (06/13/2024 11:30 AM EDT) Glucose Blood, POC 138 60 - 200 mg/dL Blood Capillary blood specimen / Unknown 06/13/2024 11:30 AM EDT Donna Walsh DO POINT OF CARE TEST ENTER/BENJAMIN T ORDERABLES Final Result * Hepatitis C Antibody with Reflex to HCV, RNA, Quantitative, Real-Time PCR (12/12/2023 11:54 AM EDT) Hepatitis C Antibody Nonreactive Nonreactive [facility] Comment:Antibodies to HCV no t detected; does not exclude early acuteHCV infection. Blood Venous blood specimen / Unknown 12/12/2023 11:54 AM EDT 12/12/2023 1:04 PM EDT Lauren Solomon MD LAB BLOOD ORDERAB LES Final Result [facility] [address] [place] [phone] [phone] * HIV-1/2 Antigen and Antibodies, Fourth Generation, with Reflexes (12/12/2023 11:54 AM EDT) HIV AB/AG Nonreactive Nonreactive [facility] Comment:HIV-1 p24 Ag and/or HIV-1/HIV-2 Ab not detected.A test result that is nonreactive does not exclude thepossibility of exposure to or infection with HIV-1 and/orHIV-2. Nonreactive results in this assay for individualswith prior exposure to HIV-1 and/or HIV-2 may be due toantigen and antibody levels that are below the limit ofdetection of this assay.The [employer] HIV Ag/Ab Combo assay result andsupplemental assay results should be interpreted inconjunction with the patient's clinical presentation,history and other laboratory results. If the results areinconsistent with clinical evidence, additional testing issuggested to confirm the result. Blood Venous blood specimen / Unknown 12/12/2023 11:54 AM EDT 12/12/2023 1:04 PM EDT us Lauren Solomon MD LAB BLOOD ORDERAB LES Final Result [facility] [address] [place] [phone] * (ABNORMAL) Lipid Panel, Standard (12/12/2023 11:54 AM EDT) Triglycerides 80 <150 mg/dL [facility] Comment:Desirable Triglyceri de: less than 150 mg/dLBorderline High Triglyceride 150-199 mg/dLHigh Triglyceride: 200-499 mg/dLVery High Triglyceride: greater than or equal to 5OO mg/dL Cholesterol 184 <200 mg/dL [facility] Comment:Desirable Cholestero l: less than 200 mg/dLBorderline High Cholesterol: 200-239 mg/dLHigh Cholesterol: greater than 239 mg/dL LDL Cholesterol Calculated 113(H) <100 mg/dL [facility] Comment:Desirable LDL: less than 100 mg/dLNear Optimal/Above Optimal LDL: 110- 129 mg/dLBorderline High LDL: 130-159 mg/dLHigh LDL: 160-189 mg/dLVery High LDL: greater than or equal to 190 mg/dL HDL Cholesterol 55 >40 mg/dL [facility] Comment:Desirable HDL: great er than 40 mg/dL Note: This HDL assay may give artificially low results in patients with liver disease. Blood Venous blood specimen / Unknown 12/12/2023 11:54 AM EDT 12/12/2023 1:04 PM EDT us Lauren Solomon MD LAB BLOOD ORDERAB LES Final Result Performing Organization Address [facility]/ZIP Co de Phone Number [facility] [address] [place] [phone] * Albumin, Random Urine W/Creatinine (11/15/2023 9:30 AM EDT) Creatinine, Urine 88.58 mg/dL [facility] Microalbumin Urine <5.0 mg/L [facility] Microalbum Creatinine Ratio Ur TNP <30 ug/mg cr [facility] Comment:Unable to calculate albumin/creatinine ratio due to lowmicroalbumin or creatinine result. Urine (Urine, Random) 11/15/2023 9:30 AM EDT 11/15/2023 1:30 PM EDT us Lauren Solomon MD LAB URINE ORDERAB LES Final Result Performing Organization Address [facility]/ZIP Co de Phone Number [facility] [address] [place] [phone] [phone] from Last 3 Months or Most Recently Relevant to Health Maintenance Insurance [facility] ONE CARE < [address] [place] [phone] Care Teams Director Of Capital Giving Relationship Specialty Start Date End Date Lauren Whittaker MD [address] [place] [phone] PCP - General Internal Medicine 11/15/23 [facility] 03/08/24
--- OUTSIDE RECORDS SUMMARY | 2024-07-30 14:06 | XMS_ITS | Encounter Summary ---
Author Organization [employer] Address [address] [place] [address] 7 [place] [address] Care Team Providers Care Fitness Specialist Name Role Phone Lauren Whittaker MD Primary Care Pro vider Reason for Visit * Reason Onset Date Comments Med Refill 04/10/2024 Encounter Details Date Type Department Care Team ([facility] st Contact Info) Description 04/10/2024 Telephone [facility] [address] [place] [phone] Lauren Whittaker MD [address] [place] [address] Med Refill Social History Tobacco Use Types [...] 50 MG tablet [facility]: [id number] - [address] documented in this encounter Plan of Treatment Upcoming Encounters Date Type Department Care Team ([facility] st Contact Info) Description 08/22/2024 2:15 PM EDT Office Visit [facility] [address] [place] [phone] Lauren Whittaker MD [address] [place] [address] documented as of this encounter Visit Diagnoses Not on filedocumented in this encounter Additional Health Concerns Assessment Noted Time PHQ-9 Depression Total Score: 0 11/15/19 24 9:31 AM EDT documented as of this encounter Care Teams Fitness Specialist Relationship Specialty Start Date End Date Lauren Whittaker MD [address] [place] [phone] PCP - General Internal Medicine 11/15/23 [facility] 03/08/24 documented as of this encounter
--- OUTSIDE RECORDS SUMMARY | 2024-07-30 14:06 | XMS_ITS | Encounter Summary ---
Author Organization [employer] Address [address] [place] [address] 7 [place] [address] Care Team Providers Care Computer Consultant Name Role Phone Lauren Whittaker MD Primary Care Pro vider Reason for Visit * Reason Onset Date Comments Nurse Triage 11/21/2023 Encounter Details Date Type Department Care Team ([facility] st Contact Info) Description 11/21/2023 Telephone [facility] [address] [place], [place] [phone] Lauren Whittaker MD [address] [place] [address] Nurse Triage Social History Tobacco Use Types [...] 2:13 PM EDT Pt reports went to [facility] 11/15/23 to be seen for Back pain. [...] find position of comfort. Pt went to [facility] 11/15/23 and was given shot of morphine for pain but, no further prescription for pain medication. Pt is advised to come to [facility] for provider to see today. Visiting nurse will bring Pt to [facility] today. Pt agrees with this disposition. Protocol [...] 08/22/2024 2:15 PM EDT Office Visit [facility] [address] [place] [phone] Lauren Whittaker MD [address] [place] [phone] documented as of this encounter Visit Diagnoses Not on filedocumented in this encounter Additional Health Concerns Assessment Noted Time PHQ-9 Depression Total Score: 0 11/15/19 9:31 AM EDT documented as of this encounter Care Teams Computer Consultant Relationship Specialty Start Date End Date Lauren Whittaker MD [address] [place] [phone] PCP - General Internal Medicine 11/15/23 [facility] 03/08/24 documented as of this encounter
--- NOTE | 2024-07-30 14:35 | P.CONCA_ITS ---
History of Present Illness History of Present Illness Date of Service: 07/30/24 Requesting physician: Lindsey Riley Chief complaint: CP,FALL PER EMS Narrative: [age] year gentleman with background history of tetralogy of Fallot, wide right bundle-branch block and previous ICD placement in 2013 presenting for chest pain and syncope. He said he was coming through the emergency department to be assess for abdominal pain and passed out. He said he felt dizzy and lightheaded. He is noted to be orthostatic. He is complaining of left-sided chest pain which has been persistently present for hours. He is saying that he has been getting these episodes for long time and has history going back for years. He is describing a pressure-like feeling going to his arm. No reproducible chest discomfort noticed. Blood pressure is low. He is receiving some IV fluids. He follows at [facility] with Dr. Nix who is his primary dipping machine operator. [facility] Past Medical History Medical History Somatoform disorder Depression with suicidal ideation Sleep apnea Seizure RBBB Cardiac defibrillator in place Artificial cardiac pacemaker Hyperthyroidism Hyperlipidemia History of ETOH abuse Hypertension GERD (gastroesophageal reflux disease) Diabetes Developmental delay, mild Depression COPD (chronic obstructive pulmonary disease) Asthma Anxiety Surgical History Surgical History History of cardiac cath Social History Social History Household Members: Other Household Members Other:: 2 roommates Housing: Apartment Housing Other:: Sober House Do you presently have visiting nurse or other home services: No Alcohol intake: never Patient Tobacco Use Status: Never used Tobacco Tobacco use type: Cigarette Second Hand Smoke Exposure: No Substance Use Type: Former Substance User, Prescription Drugs and Caffiene Advance Directives: No Advance Directives Information Provided: Yes service: No Current occupational status: disabled Sexual orientation: Decline to Answer Meds Allergies Allergy/AdvReac Type Severity Reaction Status Date / Time aripiprazole [From Abilify] Allergy Severe Rash Verified 07/30/24 11:13 peas Allergy Severe HIVES Verified 07/30/24 11:13 atorvastatin [From Lipitor] Allergy Intermediate Hives Verified 07/30/24 11:13 bee pollen [bee stings] AdvReac Severe Anaphylaxis Verified 07/30/24 11:13 Home Medications ?Medication ?Instructions ?Recorded ?Confirmed ?Last Taken ?Type albuterol sulfate 90 mcg/actuation 2 puff inhalation Q4H PRN 08/19/22 01/01/23 Unknown History aerosol inhaler Shortness Of Breath hydroxyzine pamoate 50 mg capsule 50 mg PO BID Anxiety / Nausea 08/19/22 01/01/23 Unknown History nitroglycerin 0.4 mg sublingual 0.4 mg sublingual Q5M PRN Chest 08/19/22 01/01/23 Unknown History tablet Pain sotalol 80 mg tablet 80 mg PO BID 08/19/22 01/01/23 09/08/22 09:00 History tamsulosin 0.4 mg capsule 0.4 mg PO BEDTIME 08/19/22 01/01/23 09/07/22 History levothyroxine 75 mcg tablet 75 mcg PO DAILY@0600 09/08/22 01/01/23 09/08/22 06:00 History risperidone 1 mg tablet 1.5 mg PO BEDTIME 09/08/22 01/01/23 09/07/22 History rivaroxaban 20 mg tablet (Xarelto) 20 mg PO DAILY@1800 09/08/22 01/01/23 09/07/22 History acetaminophen 325 mg tablet 650 mg PO Q4H PRN Fever Or Pain 01/01/23 01/01/23 Unknown History aluminum-mag hydroxide-simethicone 10 ml PO Q4H PRN Constipation 01/01/23 01/01/23 Unknown History 400 mg-400 mg-40 mg/5 mL oral susp (Mylanta Maximum Strength) aspirin 81 mg tablet,delayed 81 mg PO DAILY 01/01/23 01/01/23 Unknown History release bisacodyl 5 mg tablet,delayed 10 mg PO BEDTIME PRN Constipation 01/01/23 01/01/23 Unknown History release calcium carbonate (Tums) 300 mg PO Q4H PRN Dyspepsia 01/01/23 01/01/23 Unknown History cyclobenzaprine 5 mg tablet 5 mg PO TID PRN muscle spasms 01/01/23 01/01/23 Unknown History escitalopram oxalate 20 mg tablet 20 mg PO DAILY 01/01/23 01/01/23 Unknown History gabapentin 300 mg capsule 300 mg PO BID 01/01/23 01/01/23 Unknown History magnesium hydroxide 400 mg/5 mL 30 ml PO DAILY PRN Constipation 01/01/23 01/01/23 Unknown History oral suspension melatonin 10 mg tablet 10 mg PO BEDTIME PRN Insomnia 01/01/23 01/01/23 Unknown History metformin 500 mg tablet 500 mg PO DAILY 01/01/23 01/01/23 Unknown History ondansetron HCl 4 mg tablet 4 mg PO Q4H PRN nausea and 01/01/23 01/01/23 Unknown History vomitting quetiapine 100 mg tablet 100 mg PO BEDTIME 01/01/23 01/01/23 Unknown History sumatriptan succinate 50 mg tablet 50 mg PO BID PRN migraines 01/01/23 01/01/23 Unknown History tramadol 50 mg tablet 50 mg PO Q6H PRN migraines 01/01/23 01/01/23 Unknown History trazodone 50 mg tablet 25 mg PO BEDTIME 01/01/23 01/01/23 Unknown History hydroxyzine HCl 50 mg tablet 50 mg PO BEDTIME 12/26/23 Unknown History trazodone 150 mg tablet 150 mg PO BEDTIME 12/26/23 Unknown History Physical Exam 2 Vital Signs: Vital Signs: Last Vital Signs Temp 97.4 F 07/30/24 11:12 Pulse 76 07/30/24 12:47 Resp 16 07/30/24 11:12 BP 94/57 L 07/30/24 12:47 Pulse Ox 97 07/30/24 11:12 O2 Del Method Room Air 07/30/24 11:12 BMI result Body Mass Index 39.4 GENERAL APPEARANCE: in no acute distress, pleasant. NECK: no carotid bruit, no jugular venous distention. SKIN: no suspicious lesions, warm and dry. HEART: no murmurs, regular rate and rhythm. LUNGS: clear to auscultation bilaterally. ABDOMEN: soft, nontender. EXTREMITIES: no edema. PERIPHERAL PULSES: equal. NEUROLOGIC: No gross deficits, AAO X 3 Objective Labs and Meds 07/30/24 11:24 07/30/24 11:24 Lab results: Laboratory Results - last 24 hr 07/30/24 11:24 WBC 5.2 RBC 4.05 L Hgb 11.4 L Hct 34.2 L MCV 84.4 MCH 28.1 MCHC 33.3 RDW 14.2 Plt Count 83 L MPV 10.4 Immature Gran % (Auto) 1.5 H Neut % (Auto) 57.4 Lymph % (Auto) 24.1 [place] % (Auto) 10.8 Eos % (Auto) 5.2 H Baso % (Auto) 1.0 Lymph # (Auto) 1.3 [place] # (Auto) 0.6 Eos # (Auto) 0.3 Baso # (Auto) 0.1 Abs Immat Gran (auto) 0.08 H Absolute Neuts (auto) 3.0 Absolute Nucleated RBC 0.000 Nucleated RBC % (auto) 0.0 PT 12.6 H INR 1.1 Sodium 140 Potassium 4.3 Chloride 109 H Carbon Dioxide 23 Anion Gap 12 BUN 13 Creatinine 1.07 Estim Creat Clear Calc 91.9 Estimated GFR > 60 Random Glucose 109 Calcium 7.8 L Total Bilirubin 0.5 Direct Bilirubin 0.2 AST 19 ALT 21 Alkaline Phosphatase 61 Troponin I High Sens < 2.7 Total Protein 6.0 L Albumin 3.7 Imaging Radiologist's impression: Impressions Head CT 07/30/24 11:18 IMPRESSION: No acute fracture, bony calvarium. No acute intracranial hemorrhage. Extensive White matter disease likely related to small vessel occlusive disease. 8 mm hypodensity, intra-axial, deep periventricular left frontal white matter. Consider cavernoma/cavernous and jugular. Electronically signed by: Geronimo Monet MD 07/30/2024 12:36 PM EDT RP Chest X-Ray 07/30/24 11:44 IMPRESSION: Mild interstitial edema in the correct clinical settings. Electronically signed by: Geronimo Monet MD 07/30/2024 12:23 PM EDT RP Cervical Spine CT 07/30/24 11:48 IMPRESSION: Multilevel cervical spondylosis suggesting DISH without acute fracture or trauma-related listhesis. Fleischner guidelines were followed. Electronically signed by: Geronimo Monet MD 07/30/2024 12:30 PM EDT RP Assessment and Plan (1) Cardiac defibrillator in place: Status: Acute (2) Syncope: Status: Acute (3) Chest pain: Status: Acute Plan [age] year gentleman with background history of tetralogy of follow and previous ICD placement presenting for chest pain. Chest pain is noncardiac in origin. Biomarkers are negative. EKGs showing chronic right bundle-branch block with atrial paced rhythm. ICD interrogation done which did not show any significant arrhythmia. He was noticed to be orthostatic and was given some IV fluids. I think his orthostatics should be repeated and if then improving he can be discharged back home. I think his lisinopril should be held for now given orthostasis. Continue the sotalol. Follow-up with Dr. Saulo Nix at [facility]. Thank you for allowing me to participate in the care of your patient. Please feel free to contact me if you have any questions. Procedures Date of Service Date of Service: 07/30/24
[2024-07-30] MEDS: HYDROmorphone HCl 0.5 MG/0.5 ML SYRINGE IVPUSH (14:37)
== END 2024-07-30 17:54 | disposition home or self-care (01) ==
PROVIDERS: Emergency Provider Emergency Medicine Emergency Medical Services
DX: R55 Syncope and collapse (principal); R07.9 Chest pain, unspecified; Q21.3 Tetralogy of Fallot; J44.9 Chronic obstructive pulmonary disease, unspecified; I10 Essential (primary) hypertension; E11.9 Type 2 diabetes mellitus without complications; Z95.810 Presence of automatic (implantable) cardiac defibrillator; Z79.899 Other long term (current) drug therapy
CPT/HCPCS: 36415; 70450; 71045; 72125; 80048; 80076; 84484; 85025; 85610; 93005; 96374; 96375; 99284; J1171; J2405

== ENCOUNTER → 2024-07-30 11:18 | Outpatient (BNV) | payer OTHER, SELFPAY | PROVIDERS: Emergency Provider Emergency Medicine Emergency Medical Services; Visit Provider Radiology Diagnostic Radiology | DX: M47.812 Spondylosis without myelopathy or radiculopathy, cervical region (principal); R90.82 White matter disease, unspecified; R06.02 Shortness of breath | CPT/HCPCS: 70450; 71045; 72125 ==

== ENCOUNTER → 2024-07-30 11:55 | Outpatient (BNV) | payer OTHER, SELFPAY | PROVIDERS: Emergency Provider Emergency Medicine Emergency Medical Services; Visit Provider Internal Medicine Cardiovascular Disease | DX: R55 Syncope and collapse (principal); R07.9 Chest pain, unspecified; R94.31 Abnormal electrocardiogram [ECG] [EKG]; Z95.810 Presence of automatic (implantable) cardiac defibrillator | CPT/HCPCS: 93010; 99283 ==

== ENCOUNTER 2024-08-20 14:58 | Emergency (ER) | payer OTHER, SELFPAY ==
[2024-08-20 15:19] VITALS: BP 138/75; PULSE 86; RESP 18; TEMP 36.4; O2SAT 97; BMI 32.7
--- NOTE | 2024-08-20 15:22 | ED_ITS ---
HPI - Back Pain/Injury General Chief Complaint: Back Pain/Injury Stated Complaint: Lower back pain Time Seen by Provider: 08/20/24 20:35 Source: patient and old records reviewed Mode of arrival: ambulatory Limitations: no limitations History of Present Illness ED Provider: Dr. Lyubov Trimble HPI Narrative: 63 yo male with history of COPD, tetralogy of Fallot with AICD, COPD, diabetes, developmental delay, GERD, alcohol use disorder-in remission, hypertension, hyperlipidemia, history of C diff colitis, who presents to the ER for evaluation of right lower back pain radiating into his groin and right leg ongoing for the last 3 weeks, worsening over the last several days. Pain is now constant. Worse with movement. Describes it as a sharp, stabbing pain. Associated occasionally with urination, defecation and any movement whatsoever. Patient has tried multiple medications including oxycodone which he was prescribed by [facility] for this back pain. Apparently was started on an antibiotic which he has since completed. He is not sure which medication this was or what infection it was for. Patient has been seen in this emergency department multiple times for this reason. Related Data Home Medications ?Medication ?Instructions ?Recorded ?Confirmed albuterol sulfate 90 mcg/actuation 2 puff inhalation Q4H PRN 08/19/22 01/01/23 aerosol inhaler Shortness Of Breath hydroxyzine pamoate 50 mg capsule 50 mg PO BID Anxiety / Nausea 08/19/22 01/01/23 nitroglycerin 0.4 mg sublingual 0.4 mg sublingual Q5M PRN Chest 08/19/22 01/01/23 tablet Pain sotalol 80 mg tablet 80 mg PO BID 08/19/22 01/01/23 tamsulosin 0.4 mg capsule 0.4 mg PO BEDTIME 08/19/22 01/01/23 levothyroxine 75 mcg tablet 75 mcg PO DAILY@0600 09/08/22 01/01/23 risperidone 1 mg tablet 1.5 mg PO BEDTIME 09/08/22 01/01/23 rivaroxaban 20 mg tablet (Xarelto) 20 mg PO DAILY@1800 09/08/22 01/01/23 acetaminophen 325 mg tablet 650 mg PO Q4H PRN Fever Or Pain 01/01/23 01/01/23 aluminum-mag hydroxide-simethicone 10 ml PO Q4H PRN Constipation 01/01/23 01/01/23 400 mg-400 mg-40 mg/5 mL oral susp (Mylanta Maximum Strength) aspirin 81 mg tablet,delayed 81 mg PO DAILY 01/01/23 01/01/23 release bisacodyl 5 mg tablet,delayed 10 mg PO BEDTIME PRN Constipation 01/01/23 01/01/23 release calcium carbonate (Tums) 300 mg PO Q4H PRN Dyspepsia 01/01/23 01/01/23 cyclobenzaprine 5 mg tablet 5 mg PO TID PRN muscle spasms 01/01/23 01/01/23 escitalopram oxalate 20 mg tablet 20 mg PO DAILY 01/01/23 01/01/23 gabapentin 300 mg capsule 300 mg PO BID 01/01/23 01/01/23 magnesium hydroxide 400 mg/5 mL 30 ml PO DAILY PRN Constipation 01/01/23 01/01/23 oral suspension melatonin 10 mg tablet 10 mg PO BEDTIME PRN Insomnia 01/01/23 01/01/23 metformin 500 mg tablet 500 mg PO DAILY 01/01/23 01/01/23 ondansetron HCl 4 mg tablet 4 mg PO Q4H PRN nausea and 01/01/23 01/01/23 vomitting quetiapine 100 mg tablet 100 mg PO BEDTIME 01/01/23 01/01/23 sumatriptan succinate 50 mg tablet 50 mg PO BID PRN migraines 01/01/23 01/01/23 tramadol 50 mg tablet 50 mg PO Q6H PRN migraines 01/01/23 01/01/23 trazodone 50 mg tablet 25 mg PO BEDTIME 01/01/23 01/01/23 hydroxyzine HCl 50 mg tablet 50 mg PO BEDTIME 12/26/23 trazodone 150 mg tablet 150 mg PO BEDTIME 12/26/23 Previous Rx's ?Medication ?Instructions ?Recorded isosorbide mononitrate 30 mg 30 mg PO DAILY #0 tabs 09/22/21 tablet,extended release 24 hr ezetimibe 10 mg tablet 10 mg PO DAILY 7 days #7 tabs 08/24/22 oxycodone 5 mg tablet 5 mg PO BID PRN pain #4 tabs 01/01/23 prednisone 20 mg tablet 20 mg PO DAILY #5 tabs 01/01/23 cyclobenzaprine 10 mg tablet 10 mg PO TID PRN muscle spasm #10 08/31/23 tabs acetaminophen 325 mg capsule 325 mg PO Q4H PRN pain #30 caps 09/30/23 (Tylenol) lidocaine 5 % topical patch 1 patch topical DAILY PRN pain #15 09/30/23 ea meclizine 25 mg tablet 25 mg PO DAILY PRN dizziness #14 09/30/23 tabs miscellaneous medical supply #1 ea 12/26/23 naloxone 4 mg/actuation nasal 4 mg intranasal Q2M PRN opioid 12/26/23 spray (Narcan) overdose #2 ea oxycodone-acetaminophen 5 mg-325 1 tab PO Q8H PRN pain (scale score 12/26/23 mg tablet 7-10) 7 days #20 tabs Allergies Allergy/AdvReac Type Severity Reaction Status Date / Time aripiprazole [From Abilify] Allergy Severe Rash Verified 08/20/24 15:20 peas Allergy Severe HIVES Verified 08/20/24 15:20 atorvastatin [From Lipitor] Allergy Intermediate Hives Verified 08/20/24 15:20 bee pollen [bee stings] AdvReac Severe Anaphylaxis Verified 08/20/24 15:20 Review of Systems 2 Review of Systems: Yes all other systems are reviewed and are negative PMFSH Past Medical History Medical History Somatoform disorder Depression with suicidal ideation Sleep apnea Seizure RBBB Cardiac defibrillator in place Artificial cardiac pacemaker Hyperthyroidism Hyperlipidemia History of ETOH abuse Hypertension GERD (gastroesophageal reflux disease) Diabetes Developmental delay, mild Depression COPD (chronic obstructive pulmonary disease) Asthma Anxiety Surgical History History of cardiac cath Social History Social History Household Members: Other Household Members Other:: 2 roommates Housing: Apartment Housing Other:: Sober House Do you presently have visiting nurse or other home services: No Alcohol intake: never Patient Tobacco Use Status: Never used Tobacco Tobacco use type: Cigarette Second Hand Smoke Exposure: No Substance Use Type: Former Substance User, Prescription Drugs and Caffiene Advance Directives: Yes Advance Directives Information Provided: Yes Advance Directives on File: No service: No Current occupational status: disabled Sexual orientation: Decline to Answer Physical Exam 2 Vital Signs: Vital Signs: Last Vital Signs Temp 97.2 F 08/20/24 22:11 Pulse 78 08/20/24 22:11 Resp 16 08/20/24 22:11 BP 132/61 08/20/24 22:11 Pulse Ox 96 08/20/24 22:11 O2 Del Method Room Air 08/20/24 22:11 BMI result Body Mass Index 32.7 Exam: Constitutional: ?Chronically ill-appearing, appears uncomfortable HEENT: ?No lymphadenopathy, neck is supple, trachea midline, PERRLA, EOMI, no nystagmus Chest: ?Equal rise, no crepitus, no deformities Respiratory: ?Lungs are clear to auscultation bilaterally, no wheezes/rales/rhonchi Cardio: ?Regular rate and rhythm, systolic ejection murmur heard over the right upper sternal border, no rubs or gallops, peripheral pulses strong GI: ?Soft, nondistended, nontender to palpation, positive bowel sounds in all quadrants : Normal external genitalia, significant tenderness to palpation in bilateral epididymi, no palpable cord, cremasteric reflex intact bilaterally Skin: ?Warm, dry, no rashes Musculoskeletal: ?No deformities, normal tone, tenderness to palpation overlying the right flank and right SI joint, no crepitus, no midline tenderness to palpation, hypertonicity of the paraspinal musculature in the lumbar spine Neuro: ?Alert and oriented, cranial nerves 2-12 intact, equal strength and sensation in bilateral upper and lower extremities, positive straight leg raise on the right leg at 30? Psych: ?Normal affect, appropriate mood, no visual or auditory hallucinations Course Course Course Narrative: 08/20/24 1522 HEAVENLY Wilde This is a Rapid Medical Examination (RME) performed by Leroy Negron PA-C in triage. Full HPI, ROS, assessment and treatment plan per primary provider in the Main ED. Hx: 64 yo M here for eval of right lower back pain radiating to right flank, right abd and right testicle. denies hematuria. admits to dysuria and painful BMs. states he was seen at [facility] x2 w/ unremarkable work up. Plan: labs, UA Medications Administered Discontinued Medications Generic Name Dose Route Start Last Admin Trade Name Freq PRN Reason Stop Dose Admin Diazepam 5 mg 08/20/24 20:45 08/20/24 21:45 Diazepam 5 Mg Tablet PO 08/20/24 20:46 5 mg ONCE ONE Administration Ibuprofen 600 mg 08/20/24 20:45 08/20/24 21:45 Ibuprofen 600 Mg Tablet PO 08/20/24 20:46 600 mg ONCE ONE Administration Medical Decision Making Medical Decision Making MDM Narrative: 63 yo male with history of COPD, tetralogy of Fallot with AICD, COPD, diabetes, developmental delay, GERD, alcohol use disorder-in remission, hypertension, hyperlipidemia, history of C diff colitis, who presents to the ER for evaluation of right lower back pain radiating into his groin and right leg ongoing for the last 3 weeks, worsening over the last several days. Pain is now constant. Worse with movement. Describes it as a sharp, stabbing pain. Associated occasionally with urination, defecation and any movement whatsoever. Patient has tried multiple medications including oxycodone which he was prescribed by [facility] for this back pain. Apparently was started on an antibiotic which he has since completed. He is not sure which medication this was or what infection it was for. Patient has been seen in this emergency department multiple times for this reason. Differential diagnosis includes: Lumbar strain, radiculopathy, UTI, pyelonephritis, testicular torsion, epididymitis, chronic low back pain, malingering, among many others. Course: 9:10 p.m. my interpretation of the patient's laboratory results includes: Baseline renal function, creatinine of 1.16, slight hyperglycemia which is also baseline for him with sugar of 201, slight anemia with downtrending over the last several months with a hemoglobin of 10.9, hematocrit of 32.2, platelets are low as well which is also not far from his baseline at 82, no evidence of infection with a normal. Patient has taken multiple pain medications at home including oxycodone, Tylenol and Lidoderm patch without relief of his pain today. He does have some hypertonicity overlying the right paraspinal musculature. Plan for muscle relaxer including Valium as well as a single dose of ibuprofen for muscle pain. Very low suspicion for infectious process given his exam and blood work. He is complaining of testicular pain. However, his pain is mostly originating in the lumbar spine and radiating to the testicle rather than the opposite. Patient is currently located in a hallway bed. We will attempt to find a more private space to do a exam. Meanwhile we will see how his pain is controlled with these new medications. Holding off on IV pain medication at this time. 11:22 p.m. patient continues to report unchanged pain in his right flank. You do feel there is a component of chronic pain today. No red flags on exam or history. I plan to discharge him home to follow up with his primary care doctor as scheduled on 08/22/24. He has [facility]cod[facility] prescriptions by 15 different providers in the last year. Encouraged follow-up as well as discuss strict return precautions. Discharged home in stable condition. Admission/Observation Consideration of admission/observation: Escalation of care including admission/observation considered Lab Data MDM Lab Attestation statement: I reviewed the patient's lab results. 08/20/24 15:35 08/20/24 15:35 Labs: Lab Results 08/20/24 Range/Units 15:35 WBC 5.4 (4.8-10.8) X10*3/uL RBC 3.83 L (4.60-5.80) X10*6/uL Hgb 10.9 L (14.0-18.0) g/dl Hct 32.2 L (42.0-52.0) % MCV 84.1 (80.0-98.0) fL MCH 28.5 (27.0-33.0) pg MCHC 33.9 (31.0-36.0) g/dl RDW 14.4 (11.0-16.0) % Plt Count 82 L (160-400) X10*3/uL MPV 11.5 (9.4-12.4) fL Immature Gran % (Auto) 1.7 H (0.0-0.4) % Neut % (Auto) 64.9 (45-73) % Lymph % (Auto) 21.6 (20-40) % Frontier % (Auto) 6.2 (2-11) % Eos % (Auto) 4.9 H (0-4) % Baso % (Auto) 0.7 (0-2) % Lymph # (Auto) 1.2 (1.2-4.9) X10*3/uL Frontier # (Auto) 0.3 (0.1-1.2) X10*3/uL Eos # (Auto) 0.3 (0.0-0.4) X10*3/uL Baso # (Auto) 0.0 (0.0-0.2) X10*3/uL Abs Immat Gran (auto) 0.09 H (0.00-0.03) X10*3/uL Absolute Neuts (auto) 3.5 (2.0-8.3) x10*3/uL Absolute Nucleated RBC 0.000 (0.0-0.012) X10*3/uL Nucleated RBC % (auto) 0.0 (0.0-0.2) /100WBC Sodium 140 (135-145) mmol/L Potassium 4.0 (3.3-5.1) mmol/L Chloride 109 H (96-108) mmol/L Carbon Dioxide 22 (22-29) mmol/L Anion Gap 13 (12-20) BUN 17 H (9-16) mg/dL Creatinine 1.16 (0.5-1.4) mg/dL Estim Creat Clear Calc 77.0 Estimated GFR > 60 Random Glucose 201 H (60-115) mg/dL Calcium 8.1 L (8.4-10.2) mg/dL Magnesium 1.8 (1.6-2.6) mg/dL Total Bilirubin 0.4 (0.0-1.0) mg/dL AST 19 (5-37) U/L ALT 18 (0-40) U/L Alkaline Phosphatase 68 (39-117) U/L Total Protein 6.2 L (6.5-8.0) g/dL Albumin 3.8 (3.5-5.0) g/dL Urine Color Yellow Urine Appearance Clear Urine pH 5.5 (5.0-9.0) Ur Specific [place] 1.025 (1.005-1.025) Urine Protein Negative (Neg-Trace) mg/dL Urine Glucose (UA) Negative (Negative) mg/dL Urine Ketones Trace (Negative) mg/dL Urine Blood Negative (Negative) Urine Nitrite Negative (Negative) Ur Leukocyte Esterase Negative (Negative) External Record Review External record reviewed: Inpatient record, Prior outpatient labs and Outside ED record Chronic Conditions Patient?s care impacted by: Other (CAD, COPD, degenerative disc disease) Discharge Plan Discharge Clinical Impression: Chronic low back pain, Lumbar radiculopathy Patient Disposition: Home, Self-Care Instructions: Chronic Pain (ED), Lumbar Radiculopathy (ED) Additional Instructions: Keep your appointment with your primary care doctor on . Return to the emergency department immediately with any new or worsening symptoms including: Worsening pain despite home treatment, fevers greater than 100?, falls, any new symptom that concerns you. Call 911 with any medical emergency. Prescriptions: No Action isosorbide mononitrate 30 mg Tablet Extended Release 24 Hr 30 mg PO DAILY Qty: 0 0RF Protocol: Hold for SBP< HOLD for SBP < : 90 sotalol 80 mg tablet 80 mg PO BID hydroxyzine pamoate 50 mg capsule 50 mg PO BID tamsulosin 0.4 mg capsule 0.4 mg PO BEDTIME nitroglycerin 0.4 mg tablet, sublingual 0.4 mg sublingual Q5M PRN (Reason: Chest Pain) albuterol sulfate 90 mcg/actuation HFA aerosol inhaler 2 puff inhalation Q4H PRN (Reason: Shortness Of Breath) ezetimibe 10 mg Tablet 10 mg PO DAILY 7 Days Qty: 7 0RF risperidone 1 mg tablet 1.5 mg PO BEDTIME Xarelto 20 mg tablet 20 mg PO DAILY@1800 levothyroxine 75 mcg tablet 75 mcg PO DAILY@0600 acetaminophen 325 mg tablet 650 mg PO Q4H PRN (Reason: Fever Or Pain) metformin 500 mg tablet 500 mg PO DAILY trazodone 50 mg tablet 25 mg PO BEDTIME ondansetron HCl 4 mg Tablet 4 mg PO Q4H PRN (Reason: nausea and vomitting) sumatriptan succinate 50 mg tablet 50 mg PO BID PRN (Reason: migraines) Rx Instructions: wait 2 hours between doses calcium carbonate [Tums] 300 mg (750 mg) Tablet,Chewable 300 mg PO Q4H PRN (Reason: Dyspepsia) aspirin 81 mg tablet,delayed release (DR/EC) 81 mg PO DAILY tramadol 50 mg tablet 50 mg PO Q6H PRN (Reason: migraines) quetiapine 100 mg tablet 100 mg PO BEDTIME magnesium hydroxide 400 mg/5 mL Suspension 30 ml PO DAILY PRN (Reason: Constipation) gabapentin 300 mg capsule 300 mg PO BID bisacodyl 5 mg Tablet,Delayed Release (Dr/Ec) 10 mg PO BEDTIME PRN (Reason: Constipation) alum-mag hydroxide-simeth [Mylanta Maximum Strength] 400-400-40 mg/5 mL Suspension 10 ml PO Q4H PRN (Reason: Constipation) escitalopram oxalate 20 mg Tablet 20 mg PO DAILY cyclobenzaprine 5 mg tablet 5 mg PO TID PRN (Reason: muscle spasms) melatonin 10 mg Tablet 10 mg PO BEDTIME PRN (Reason: Insomnia) prednisone 20 mg tablet 20 mg PO DAILY Qty: 5 0RF oxycodone 5 mg tablet 5 mg PO BID PRN (Reason: pain) Qty: 4 0RF Rx Instructions: Partial Fill upon patient request. cyclobenzaprine 10 mg tablet 10 mg PO TID PRN (Reason: muscle spasm) Qty: 10 0RF meclizine 25 mg tablet 25 mg PO DAILY PRN (Reason: dizziness) Qty: 14 0RF lidocaine 5 % adhesive patch,medicated 1 patch topical DAILY PRN (Reason: pain) Qty: 15 0RF Rx Instructions: leave on most painful area for up to 12 hrs acetaminophen [Tylenol] 325 mg capsule 325 mg PO Q4H PRN (Reason: pain) Qty: 30 0RF trazodone 150 mg tablet 150 mg PO BEDTIME hydroxyzine HCl 50 mg tablet 50 mg PO BEDTIME (DME) miscellaneous medical supply Misc See Rx Instructions .Route Qty: 1 0RF Rx Instructions: Quad cane use As directed oxycodone-acetaminophen 5-325 mg tablet 1 tab PO Q8H PRN (Reason: pain (scale score 7-10)) 7 Days Qty: 20 0RF Rx Instructions: Partial Fill upon patient request. naloxone [Narcan] 4 mg/actuation spray,non-aerosol 4 mg intranasal Q2M PRN (Reason: opioid overdose) Qty: 2 0RF Rx Instructions: spray 1 dose into ONE nostril; alternate nostrils w each dose until help arrives Print Language: Cambodian
[2024-08-20 15:39] LABS: MANUAL DIFF FLAG NO
[2024-08-20 15:41] LABS: Appearance Urine Clear; Color Urine Yellow; Glucose Urine UA Negative (Negative); Leukocyte Esterase Urine Negative (Negative); Nitrite Urine Negative (Negative); PH 5.5 (5.0-9.0); Specific Gravity - Urine 1.025 (1.005-1.025); Urine Blood Negative (Negative); Urine Ketones Trace mg/dL (Negative); Urine Protein Negative (Neg-Trace)
[2024-08-20 15:44] LABS: Basophils Percent Auto 0.7 % (0-2); Eosinophils Absolute Auto 0.3 X10*3/uL (0.0-0.4); Eosinophils Percent Auto 4.9 % (0-4); Hematocrit 32.2 % (42.0-52.0); Hemoglobin 10.9 g/dl (14.0-18.0); Imm Gran Abs Auto 0.09 X10*3/uL (0.00-0.03); Imm Gran Pct Auto 1.7 % (0.0-0.4); Lymphocytes Absolute Auto 1.2 X10*3/uL (1.2-4.9); Lymphocytes Percent Auto 21.6 % (20-40); Mean Corpuscular HGB Conc 33.9 g/dl (31.0-36.0); Mean Corpuscular Hemoglobin 28.5 pg (27.0-33.0); Mean Corpuscular Volume 84.1 fL (80.0-98.0); Mean Platelet Volume 11.5 fL (9.4-12.4); Monocytes Absolute Auto 0.3 X10*3/uL (0.1-1.2); Monocytes Percent Auto 6.2 % (2-11); Neutrophils Absolute Auto 3.5 x10*3/uL (2.0-8.3); Neutrophils Percent Auto 64.9 % (45-73); Red Blood Count 3.83 X10*6/uL (4.60-5.80); Red Cell Distribution Width 14.4 % (11.0-16.0); White Blood Count 5.4 X10*3/uL (4.8-10.8)
[2024-08-20 15:46] LABS: Platelet Count 82 X10*3/uL (160-400)
[2024-08-20 16:05] LABS: Alanine Aminotransferase 18 U/L (0-40); Albumin Level 3.8 g/dL (3.5-5.0); Anion Gap 13 (12-20); Aspartate Amino Transferase 19 U/L (5-37); Bilirubin Total 0.4 mg/dL (0.0-1.0); Blood Urea Nitrogen 17 mg/dL (9-16); Calcium 8.1 mg/dL (8.4-10.2); Carbon Dioxide 22 mmol/L (22-29); Chloride 109 mmol/L (96-108); Estimated Glomerular Filt Rate > 60; Glucose Random 201 mg/dL (60-115); Magnesium 1.8 mg/dL (1.6-2.6); Sodium 140 mmol/L (135-145); Total Protein 6.2 g/dL (6.5-8.0)
[2024-08-20 16:08] LABS: Alkaline Phosphatase 68 U/L (39-117)
[2024-08-20 17:00] VITALS: BP 102/75; PULSE 77; RESP 16; TEMP 36.4; O2SAT 98
[2024-08-20 18:29] VITALS: BP 122/59; PULSE 78; RESP 16; TEMP 36.3; O2SAT 98
--- OUTSIDE RECORDS SUMMARY | 2024-08-20 18:35 | XMS_ITS | Clinical Summary ---
Author Organization [facility] Address [address] [place] [id number] Care Team Providers Care Carbon Lamp Cleaner Name Role Phone Lilliam Amaridavin ROSS Primary Care Provider [phone] Allergies Active Allergy Reactions Criticality Noted Date [...] COVID-19 Vaccine ( season) 2023 06/03/2020, 05/06/2020 Influenza Vaccine 11/01/2024 02/17/2022, , 04/17/2018, Additional history exists Hemoglobin A1C Discontinued 01/22/2023, 12/03, 12/06/2020, Additional history exists Hepatitis B Vaccines Aged Out No long er eligible based on patient's age to complete this topic Medical Devices Implanted Type Area Filterer Device Identifier Shelf Expiration Date Model / Serial / Lot Icd ICD [facility] 2411-36c Vinicio Nelson [id number] Implanted:05/04 (Quantity not on file) ICD [employer] 2411-36C VINICIO NELSON / [id number] / Pacemaker Pacemaker Procedures Procedure Name Priority Date/Time Associated Diagnosis Comments HEMOGLOBIN A1C WITH ESTIMATED AVERAGE GLUCOSE STAT 01/22/2023 7:00 AM EDT from Last 3 Months or Most Recently Relevant to Health Maintenance Results * (ABNORMAL) Hemoglobin A1c with Estimated Average Glucose (01/22/2023 7:00 AM EDT) Hemoglobin A1C 7.1(H) <5.7 % 01/22/2023 8:43 AM EDT [facility] Comment: A1c% ? Interpretation 5.7 - 6.0 ?Increase risk of diabetes 6.1 - 6.4 ?Higher risk of diabetes > or = 6.5 ?? Consistent with diabetes Diabetes Care, 33(Supp 1):S1-S61, 2010 Estimated Average Glucose 157 mg/dL 01/22/2023 8:43 AM EDT [facility] Blood specimen (specimen) Blood specimen / Unknown 01/22/2023 7:00 AM EDT 01/22/2023 7:33 AM EDT Christophe Bullard MD LAB BLOOD ORDERABLES Fi nal Result HOSPITAL LAB See Below [address] [id number] from Last 3 Months or Most Recently Relevant to Health Maintenance Insurance [facility] Member Subscriber Plan / Payer (Ef fective 2013-Present) Name:Joaquín Barrientos Relation to Subscriber:Self Name:Joaquín Barrientos Payer ID:Not on file Group ID:Not on file Type:Not on file Address: [address] [facility] Advance Directives * [...] 2:18 PM 06/06/2018 4:09 PM Care Teams Carbon Lamp Cleaner Relationship Specialty Start Date End Date Amari Vyas DO [address] [place] [id number] PCP - General Internal Medicine 01/21/23
--- OUTSIDE RECORDS SUMMARY | 2024-08-20 18:35 | XMS_ITS | Encounter Summary ---
Author Organization [employer] Address [address] [place] [address] [place] [address] Care Team Providers Care Mason Tender Name Role Phone Lauren Whittaker MD Primary Care Pro vider Encounter Details Date Type Department Care Team ([facility] st Contact Info) Description 01/30/2024 Telephone [facility]INE [address] [place], [place] [phone] Ioana Antonio, PharmD [address] [place] [address] Social History Tobacco Use Types Packs/Day Years [...] 12:56 PM EST Tc from Pat with [facility] cardiology . States is returning a missed call. Best contact # [phone]. * Telephone Encounter - Ioana Antonio PharmD - 01/30/2024 3:10 PM EDT Please assist in obtaining discharge paperwork from [facility] Patient was discharged on 01/27/2024, and [facility] recent discharge (exact date unknown). Thank you documented in this encounter Plan of Treatment Upcoming Encounters Date Type Department Care Team (Late st Contact Info) Description 08/22/2024 2:15 PM EDT Office Visit [facility] [address] [place] [phone] Lauren Whittaker MD [address] [place] [address] documented as of this encounter Visit Diagnoses Not on filedocumented in this encounter Additional Health Concerns Assessment Noted Time PHQ-9 Depression Total Score: 0 11/15/19 9:31 AM EDT documented as of this encounter Care Teams Mason Tender Relationship Specialty Start Date End Date Lauren Whittaker MD [address] [place] [id number] PCP - General Internal Medicine 11/15/23 [facility] 03/08/24 documented as of this encounter
--- OUTSIDE RECORDS SUMMARY | 2024-08-20 18:35 | XMS_ITS | Encounter Summary ---
Author Organization [employer] Address [address] [place] [address] [place] [address] Care Team Providers Care Train Clerk Name Role Phone Lauren Whittaker MD Primary Care Pro vider Encounter Details Date Type Department Care Team ([facility] st Contact Info) Description 03/20/2024 Telephone [facility] MEDICINE [address] [place], [place] [phone] Lauren Whittaker MD [address] [place] [address] Social History Tobacco Use Types Packs/Day Years [...] Description 08/22/2024 2:15 PM EDT Office Visit [facility] MEDICINE [address] [place] [phone] Lauren Whittaker MD [address] [place] [phone] documented as of this encounter Visit Diagnoses Not on filedocumented in this encounter Additional Health Concerns Assessment Noted Time PHQ-9 Depression Total Score: 0 11/15/19 9:31 AM EDT documented as of this encounter Care Teams Train Clerk Relationship Specialty Start Date End Date Lauren Whittaker MD [address] [place] [id number] PCP - General Internal Medicine 11/15/23 [facility] 03/08/24 documented as of this encounter
--- OUTSIDE RECORDS SUMMARY | 2024-08-20 18:35 | XMS_ITS | Encounter Summary ---
Author Organization [facility] Address [address] [place] [address] Care Team Providers Care Filter Tank Tender Name Role Phone Patient, Has No Pcp Or Ref Primary Care Provider Unavailable Encounter Details Date Type Department Care Team (Late st Contact Info) Description 10/05/2022 Telephone [facility] Nuclear Medicine [address] [place] [phone] Pool Rodriguez, RN Social History Tobacco Use [...] documented as of this encounter Care Teams Filter Tank Tender Relationship Specialty Start Date End Date Patient, Has No Pcp Or Ref DO NOT EDIT THIS RECORD VIA PROVIDER ON THE FLY PCP - General Clipper Operator 07/11/24 documented as of this encounter
--- OUTSIDE RECORDS SUMMARY | 2024-08-20 18:35 | XMS_ITS | Clinical Summary ---
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 Active escitalopram oxalate (LEXAPRO) 20 mg tablet Take 1 tablet (20 mg total) by mouth daily. 5 Active hydrOXYzine (ATARAX) 50 mg tablet Take 1 tablet (50 mg total) by mouth Every 12 hours as needed. 5 Active isosorbide mononitrate (IMDUR) 30 mg 24 hr extended release tablet Take 1 tablet (30 mg total) by mouth daily. 4 Active lisinopriL (PRINIVIL,ZESTR IL) 2.5 mg tablet Take 1 tablet (2.5 mg total) by mouth daily. 4 Active metFORMIN (GLUCOPHAGE) 500 mg Immediate Release tablet Take 1 tablet (500 mg total) by mouth 2 (two) times daily with breakfast and dinner. 4 Active QUEtiapine (SEROQUEL) 100 mg Immediate Release tablet Take 1 tablet (100 mg total) by mouth nightly. 5 Active risperiDONE (RISPERDAL) 0.5 mg tablet Take 1 tablet (0.5 mg total) by mouth 3 (three) times daily. 5 Active rivaroxaban (XARELTO) 20 mg tablet Take 1 tablet (20 mg total) by mouth Daily @1700. 4 Active traZODone (DESYREL) 150 mg tablet Take 1 tablet (150 mg total) by mouth nightly. 5 Active sotaloL (BETAPACE) 80 mg tablet Take 1 tablet (80 mg total) by mouth 2 (two) times daily. Active melatonin 10 mg Tab Take 10 mg by mouth daily. Active oxyCODONE-aceta minophen (PERCOCET) 5-325 mg per tablet Take 1 tablet by mouth every 4 (four) hours as needed for pain. 8 tablet 5 Active gemfibrozil (LOPID) 600 MG tablet Take 600 mg by mouth 2 (two) times daily before breakfast and dinner. 08/04/19 25 Discontinu ed(!Delete Cleanup (No Cancel Msg)) divalproex (DEPAKOTE DR) 500 MG 12 hr tablet Take 500 mg by mouth 2 (two) times daily. 08/04/19 25 Discontinu ed(!Delete Cleanup (No Cancel Msg)) aspirin 81 MG EC tablet Take 81 mg by mouth daily. 08/04/19 25 Discontinu ed(!Delete Cleanup (No Cancel Msg)) omeprazole (PRILOSEC) 10 MG capsule Take 10 mg by mouth daily. 08/04/19 25 Discontinu ed(!Delete Cleanup (No Cancel Msg)) diltiazem (CARDIZEM CD) 120 MG 24 hr capsule Take 120 mg by mouth nightly. 08/04/19 25 Discontinu ed(!Delete Cleanup (No Cancel Msg)) PARoxetine (PAXIL) 20 MG tablet Take 20 mg by mouth nightly. 08/04/19 25 Discontinu ed(!Delete Cleanup (No Cancel Msg)) montelukast (SINGULAIR) 10 mg tablet Take 10 mg by mouth nightly. 08/04/19 25 Discontinu ed(!Delete Cleanup (No Cancel Msg)) BUTALB/ACETAMIN OPHEN/CAFFEINE (FIORICET ORAL) Take by mouth daily as needed. 08/08/19 25 Discontinu ed(!Delete Cleanup (No Cancel Msg)) ALBUTEROL INHL Inhale into the lungs as needed. 08/04/19 25 Discontinu ed(!Delete Cleanup (No Cancel Msg)) oxyCODONE-aceta minophen (PERCOCET) 5-325 mg per tablet Take 1 tablet by mouth daily as needed. 08/08/19 25 Discontinu ed(!Delete Cleanup (No Cancel Msg)) febuxostat (ULORIC) 80 mg TabIndications: prevention of acute gout attack Take 80 mg by mouth daily. 08/04/19 25 Discontinu ed(!Delete Cleanup (No Cancel Msg)) tiotropium (SPIRIVA) 18 mcg capsule for inhaler Inhale 18 mcg into the lungs daily. 08/04/19 25 Discontinu ed(!Delete Cleanup (No Cancel Msg)) sotalol (BETAPACE) 160 MG tablet Take 0.5 tablets (80 mg total) by mouth daily. 30 tablet 6 08/04/19 25 Discontinu ed(!Delete Cleanup (No Cancel Msg)) tamsulosin (FLOMAX) 0.4 mg Cp24 24 hr capsule Take 1 capsule (0.4 mg total) by mouth daily. 30 capsule 6 08/04/19 25 Discontinu ed(!Delete Cleanup (No Cancel Msg)) cefuroxime (CEFTIN) 500 mg tablet Take 1 tablet (500 mg total) by mouth 2 (two) times daily for 2 days. 4 tablet 5 08/11/19 25 Active Problems Problem Noted Date Diagnosed Date Class 2 severe obesity due t o excess calories with serious comorbidity and body mass index (BMI) of 36.0 to 36.9 in adult (HC Code) 08/06/2024 Current use of intermediate frame tender anticoagulation 025 Atrial fibrillation (HC Code) 08/06/2024 Anxiety and depression 08/06/2024 Schizophrenia 08/06/2024 Recurrent syncope 08/02/2024 Obstructive sleep apnea hypopnea, severe 016 Overview (11/06/2015): Uses BIPAP 14/7 with humidified air, needs to sleep at an incline to avoid hypopnea Tetralogy of Fallot s/p repair 11/06/2015 Hypothyroidism 11/06/2015 Seizure disorder (HC Code) 11/06/2015 Dual ICD (implantable cardioverter-defibrillator ) in place 11/06/2015 Overview (11/06/2015): [facility] serial #[id number] Dual Chamber ICD implanted 06/12/08 Type 2 diabetes mellitus 11/06/2015 Syncope and collapse 11/04/2015 Other chest pain 11/04/2015 Right bundle branch block 11/04/2015 Resolved Problems Problem Noted Date Diagnosed Date Resolved Date Flank pain, acute 08/06/2024 08/08/2024 Encounters Date Type Department Care Team Description 08/11/[address] [facility] Call Center [address] [place] [id number] Donna Linder RN Hospital Discharge Follow Up 08/08/2024 3:02 PM EDT - 08/08/2024 9:28 PM EDT Emergency [facility] Emergency Department [facility] [place] [address] Coral Fofana MD Mansour, Amir J, MD Syncope, unspecified syncope type (Primary Dx) Discharge Disposition: Another Health Care Institution Not Defined Elsewhere in List 08/08/2024 Travel 08/02/2024 9:55 AM EDT - 08/08/2024 10:42 AM EDT Hospital Encounter [facility] [address] [place] [phone] Octavio Boyd MD Haider, Salman, MD Victor, Wasnard, MD Iyengar, Steve Evans MD Recurrent syncope (Primary Dx); Minor head injury, initial encounter; Dual ICD (implantable cardioverter-defibr illator) in place; Hypothyroidism, unspecified type; Tetralogy of Fallot s/p repair; Syncope and collapse; Current use of intermediate frame tender anticoagulation; Schizophrenia, unspecified type (HC Code) ; Anxiety and depression; Flank pain, acute; Atrial fibrillation, unspecified type (HC Code) ; Type 2 diabetes mellitus with hyperglycemia, without long-term current use of insulin (HC Code) ; Class 2 severe obesity due to excess calories with serious comorbidity and body mass index (BMI) of 36.0 to 36.9 in adult (HC Code) (HC CODE) Discharge Disposition: Home or Self Care 08/02/2024 Travel from Last 3 Months Social History Tobacco Use Types Packs/Day Years Used Date Smoking Tobacco: Former Alcohol Use Standard Drinks/Week Comments No 0 (1 standard drink = 0.6 oz pur e alcohol) 5yrs sober [facility] Utilities Answer Date Recorded In the past 12 months has th e electric, gas, oil, or water company threatened to shut off services in your home? No 08/04/2024 PHQ-2 Answer Date Recorded PHQ-2 Total Score 0 08/04/2024 Hunger Vital Sign Answer Date Recorded Within the past 12 months, y ou worried that your food would run out before you got the money to buy more. Never true 08/05/19 25 Within the past 12 months, t he food you bought just didn't last and you didn't have money to get more. Never true 08/04/2024 PRAPARE - Transportation Answer Date Re corded In the past 12 months, has l ack of transportation kept you from medical appointments or from getting medications? No 07/2024 In the past 12 months, has l ack of transportation kept you from meetings, work, or from getting things needed for daily living? No 08/04/2024 Housing Stability Answer Date Recorded What is your living situation today? I have a [facility] place to live 08/04/2024 Housing Stability Not on file 08/04/2024 Interpersonal Safety Answer Date Record ed Is there anyone in your life that is hurting or threatening you in anyway? no 08/08/2024 Physical Indicators of Abuse No evidence of phys ical abuse 08/08/2024 Sex and Gender Information Value Date Recorded Sex Assigned at Male 08/08/2024 5:08 PM EDT Legal Sex Male 11:12 AM EDT Gender Identity Male 08/08/2024 5:08 PM EDT Sexual Orientation Not on file Last Filed Vital Signs Vital Sign Reading Time Taken Comments Blood Pressure 114/74 08/08/2024 8:57 PM EDT Pulse 80 08/08/2024 8:57 PM EDT Temperature 36.5 ??C (97.7 ??F) 08/08/2024 8:57 PM ED T Respiratory Rate 20 08/08/2024 8:57 PM EDT Oxygen Saturation 99% 08/08/2024 8:57 PM EDT Inhaled Oxygen Concentration - - Weight 113 kg (249 lb 1.9 oz) 08/07/2024 7:00 AM EDT Height 175.3 cm (5' 9 ) 08/04/2024 12:03 PM EDT Body Mass Index 36.79 08/04/2024 12:03 PM EDT Plan of Treatment Health Maintenance Due Date Last Done Comments Diabetic eye exam 01/26/1972 Diabetic foot exam 01/26/1972 LDL monitoring 01/26/1972 Hepatitis C screening 01/26/1980 Colon cancer screening, Colonoscopy 2007 Shingles vaccine (Shingrix) (1 of 2 - Shingrix (RZV) 2 Dose Standard Series) 01/26/2012 Urine Microalbumin 11/04/2016 11/05/2015 RSV Immunization (1 - Risk 60-74 years 1-dose series) 2022 Covid-19 vaccine series () 12/03/2023 06/03/2020, 05/06/2020 Influenza vaccine 12/02/2024 02/08/2024, , 03/17/2023, Additional history exists Hemoglobin A1C 02/04/2025 08/04/2024, 01/02, 10/03/2022, Additional history exists Tetanus adult (Td q 10,TDAP once) 12/13/2033 12/14/2023, 01/05/2015, 10/05/2012, Additional history exists Pneumococcal Vaccine (2 - 49 years) Discontinued 12/01/2022, 02/08/2018, 01/05/2015, Additional history exists Pneumococcal Vaccine (50+ years) Completed 12/01/2022, 02/08/2018, 01/05/2015, Additional history exists HIV screening Completed 12/12/2023 Meningococcal Vaccine Aged Out No waqas mayank eligible based on patient's age to complete this topic Procedures Procedure Name Priority Date/Time Associated Diagnosis Comments CT HEAD CERVICAL SPINE WO IV CONTRAST ([facility]) Within 2 hours (STAT) 08/08/2024 8:37 PM EDT EKG STAT 08/08/2024 7:18 PM EDT XR CHEST PA AND LATERAL STAT 08/08/2024 5:25 PM EDT FENTANYL, URINE, WITH NO CONFIRMATION ([facility]) STAT 08/08/2024 4:56 PM EDT URINE DRUG SCREEN W/ NO CONF ([facility]) STAT 08/08/2024 4:56 PM EDT URINE DRUG SCREEN W/ NO CONF ([facility]) STAT 08/08/2024 4:56 PM EDT TROPONIN T HIGH SENSITIVITY, 1 HOUR WITH REFLEX ([facility]) STAT - Timed 08/08/2024 4:40 PM EDT CBC AND DIFFERENTIAL STAT 08/08/2024 3:25 PM EDT BASIC METABOLIC PANEL STAT 08/08/2024 3:25 PM EDT IMMATURE PLATELET FRACTION ([facility]) STAT 08/08/2024 3:25 PM EDT MANUAL DIFFERENTIAL STAT 08/08/2024 3 :25 PM EDT CBC WITH AUTO DIFFERENTIAL STAT 08/08/2024 3:25 PM EDT BASIC METABOLIC PANEL STAT 08/08/2024 3:25 PM EDT TROPONIN T HIGH SENSITIVITY, 0 HOUR BASELINE WITH REFLEX ([facility]) STAT 08/08/2024 3:25 PM EDT MAGNESIUM STAT 08/08/2024 3:25 PM EDT EKG STAT 08/08/2024 3:09 PM EDT COMPREHENSIVE METABOLIC PANEL Routine 08/08/2024 5:18 AM EDT CBC AND DIFFERENTIAL Routine 08/08/2024 5:18 AM EDT IMMATURE PLATELET FRACTION ([facility]) Routine 08/08/2024 5:18 AM EDT COMPREHENSIVE METABOLIC PANEL Routine 08/08/2024 5:18 AM EDT CBC WITH AUTO DIFFERENTIAL Routine 08/08/2024 5:18 AM EDT EKG Routine 08/07/2024 10:28 AM EDT COMPREHENSIVE METABOLIC PANEL Routine 08/07/2024 6:04 AM EDT CBC AND DIFFERENTIAL Routine 08/07/2024 6:04 AM EDT IMMATURE PLATELET FRACTION ([facility]) Routine 08/07/2024 6:04 AM EDT COMPREHENSIVE METABOLIC PANEL Routine 08/07/2024 6:04 AM EDT CBC WITH AUTO DIFFERENTIAL Routine 08/07/2024 6:04 AM EDT VITAMIN B12 Early AM 08/07/2024 6:04 AM EDT TSH W/REFLEX TO FT4 ([facility]) Early AM 08/07/2024 6:04 AM EDT POCT GLUCOSE Routine 08/06/2024 8:20 PM EDT POCT GLUCOSE Routine 08/06/2024 5:38 PM EDT POCT GLUCOSE Routine 08/06/2024 12:44 PM EDT POCT GLUCOSE Routine 08/06/2024 9:54 AM EDT COMPREHENSIVE METABOLIC PANEL Routine 08/06/2024 5:28 AM EDT CBC AND DIFFERENTIAL Routine 08/06/2024 5:28 AM EDT PSA, TOTAL (SCREENING) ( [facility]) Add-On 08/06/2024 5:28 AM EDT IMMATURE PLATELET FRACTION ( [facility]) Routine 08/06/2024 5:28 AM EDT COMPREHENSIVE METABOLIC PANEL Routine 08/06/2024 5:28 AM EDT CBC WITH AUTO DIFFERENTIAL Routine 08/06/2024 5:28 AM EDT EKG Routine 08/06/2024 5:23 AM EDT POCT GLUCOSE Routine 08/05/2024 9:01 PM EDT POCT GLUCOSE Routine 08/05/2024 5:49 PM EDT EEG ([facility] ONLY) Routine 08/05/2024 1:39 PM EDT URINALYSIS WITH CULTURE REFLEX ([facility]) Routine 08/05/2024 1:38 PM EDT UA REFLEX CULTURE Routine 08/05/2024 1:3 8 PM EDT URINALYSIS WITH CULTURE REFLEX Routine 08/05/2024 1:38 PM EDT CBC AND DIFFERENTIAL Early AM 08/04/2024 5:28 AM EDT BASIC METABOLIC PANEL Early AM 08/04/2024 5:28 AM EDT HEMOGLOBIN A1C Add-On 08/04/2024 5:28 AM EDT IMMATURE PLATELET FRACTION ( [facility]) Routine 08/04/2024 5:28 AM EDT CBC WITH AUTO DIFFERENTIAL Early AM 08/04/2024 5:28 AM EDT BASIC METABOLIC PANEL Early AM 08/04/2024 5:28 AM EDT CARDIAC MISC.?? RESULT SCAN 08/04/2024 12:00 AM EDT CARDIAC EVENT MONITOR RESULT SCAN 08/04/2024 12:00 AM EDT CBC AND DIFFERENTIAL Early AM 08/03/2024 5:34 AM EDT BASIC METABOLIC PANEL Early AM 08/03/2024 5:34 AM EDT IMMATURE PLATELET FRACTION ([facility]) Routine 08/03/2024 5:34 AM EDT CBC WITH AUTO DIFFERENTIAL Early AM 08/03/2024 5:34 AM EDT BASIC METABOLIC PANEL Early AM 08/03/2024 5:34 AM EDT EKG Routine 08/02/2024 9:58 PM EDT TROPONIN T HIGH SENSITIVITY, 1 HOUR WITH REFLEX ([facility]) STAT - Timed 08/02/2024 12:[address] ABDOMEN PELVIS W IV CONTRAST Within 2 hours (STAT) 08/02/2024 11:07 AM EDT CTA CHEST (PE) W IV CONTRAST Within 2 hours (STAT) 08/02/2024 11:[address] HEAD CERVICAL SPINE WO IV CONTRAST ( [facility]) Life/Limb Threatening (Within 1 hour) 08/02/2024 10:41 AM EDT XR PELVIS 1 OR 2 VIEWS STAT 08/02/2024 10:20 AM EDT XR CHEST PA OR AP STAT 08/02/2024 10:19 AM EDT BASIC METABOLIC PANEL Routine 08/02/2024 10:05 AM EDT CBC AND DIFFERENTIAL Routine 08/02/2024 10:05 AM EDT IMMATURE PLATELET FRACTION ( [facility]) Routine 08/02/2024 10:05 AM EDT MAGNESIUM Routine 08/02/2024 10:05 AM EDT LIPASE STAT 08/02/2024 10:05 AM EDT BASIC METABOLIC PANEL Routine 08/02/2024 10:05 AM EDT CBC WITH AUTO DIFFERENTIAL Routine 08/02/2024 10:05 AM EDT TROPONIN T HIGH SENSITIVITY, 0 HOUR BASELINE WITH REFLEX ( [facility]) STAT 08/02/2024 10:05 AM EDT PROTIME AND INR STAT 08/02/2024 10:05 AM EDT HEPATIC FUNCTION PANEL Routine 08/02/2024 10:05 AM EDT ETHANOL ( [facility]) Routine 08/02/2024 10:05 AM EDT EKG STAT 08/02/2024 9:59 AM EDT ED CRITICAL CARE Routine 08/02/2024 9:48 AM EDT CARDIAC DEVICE INTERROGATION RESULT SCAN 08/02/2024 12:00 AM EDT CARDIAC EKG RESULT SCAN 08/02/2024 12:00 AM EDT CREATININE, URINE, RANDOM Urgent 11/05/2015 7:03 PM EDT from Last 3 Months or Most Recently Relevant to Health Maintenance Results * CT Head Cervical Spine wo IV Contrast (08/08/2024 8:37 PM EDT) Only the most recent of2 resultswithin the time period is included. Anatomical Region Laterality Modality Head, C-spine, Spine, Ortho C-spine Computed Tomography 08/08/2024 7:39 PM EDT Impressions 08/08/2024 7:55 PM EDT 1. No evidence of new acute intracranial abnormality. ??Unchanged hyperdense focus in the left frontal lobe since August 2, possibly cavernous malformation versus less likely stable hemorrhage. 2. No evidence for acute cervical spine fracture or traumatic subluxation. Please note that Noncontrast Head CT is not sensitive for the detection of ischemic infarct. If ischemic infarct is of clinical concern, additional clinical or imaging evaluation is recommended. [facility] Classification: Routine. Report initiated by: ??Naldo Lozano MD Reported and signed by: Hema Vincent MD [facility] Narrative 08/08/2024 7:[address] HEAD CERVICAL SPINE WO IV CONTRAST ( [facility]) INDICATION: fall on xarelto. COMPARISON: CT HEAD CERVICAL SPINE WO IV CONTRAST ([facility]) 2024-08-02 TECHNIQUE: CT images were obtained from the vertex through T1 without intravenous contrast. Coronal and sagittal multiplanar reformatted images were provided. FINDINGS: Brain: Unchanged 1 cm hyperdense focus adjacent to the anterior horn of the left lateral ventricle. There is no new intracranial hemorrhage, edema, mass, mass effect or midline shift. There is no evidence of acute major vascular distribution infarct. The ventricles and sulci are symmetric and normal in size. The basal cisterns are patent. Mucous retention cyst/polyp in the left maxillary sinus. Remainder of the paranasal sinuses and mastoid air cells are clear. ??The visualized orbits and osseous structures are unremarkable. Cervical Spine: There is no compression deformity or evidence for acute fracture or subluxation. The atlanto-occipital and atlanto-axial articulations are intact. Advanced multilevel degenerative changes including flowing anterior osteophytes. The prevertebral soft tissues are within normal limits. The visualized lung apices are clear. Procedure Note Hema Vincent MD - 08/08/2024 CT HEAD CERVICAL SPINE WO IV CONTRAST ([facility]) INDICATION: fall on xarelto. COMPARISON: CT HEAD CERVICAL SPINE WO IV CONTRAST ([facility]) 2024-08-02 TECHNIQUE: CT images were obtained from the vertex through T1 withoutintravenous contrast. Coronal and sagittal multiplanar reformatted imageswere provided. FINDINGS: Brain: Unchanged 1 cm hyperdense focus adjacent to the anterior horn of the leftlateral ventricle. There is no new intracranial hemorrhage, edema, mass, mass effect ormidline shift. There is no evidence of acute major vascular distributioninfarct. The ventricles and sulci are symmetric and normal in size. Thebasal cisterns are patent. Mucous retention cyst/polyp in the left maxillary sinus. Remainder of theparanasal sinuses and mastoid air cells are clear. The visualized orbitsand osseous structures are unremarkable. Cervical Spine: There is no compression deformity or evidence for acute fracture orsubluxation. The atlanto-occipital and atlanto-axial articulations areintact. Advanced multilevel degenerative changes including flowinganterior osteophytes. The prevertebral soft tissues are within normal limits. The visualized lung apices are clear. IMPRESSION: 1. No evidence of new acute intracranial abnormality. Unchangedhyperdense focus in the left frontal lobe since August 2, possibly cavernousmalformation versus less likely stable hemorrhage. 2. No evidence for acute cervical spine fracture or traumaticsubluxation. Please note that Noncontrast Head CT is not sensitive for the detection ofischemic infarct. If ischemic infarct is of clinical concern, additionalclinical or imaging evaluation is recommended. [facility] Classification: Routine. Report initiated by: Naldo Lozano MD Reported and signed by: Hema Vincent MD [facility] us Coral Fofana MD IMG CT ORDERABLES Final Resu lt * EKG (08/08/2024 7:18 PM EDT) Only the most recent of6 resultswithin the time period is included. Heart Rate 87 bpm SRC EKG QRS Interval 180 ms SRC EKG QT Interval 424 ms SRC EKG QTC Interval 510 ms SRC EKG P [place] 61 deg SRC EKG QRS [place] 104 deg SRC EKG T Wave [place] 14 deg SRC EKG P-R Interval 248 msec SRC EKG SEVERITY Abnormal ECG severity SRC EKG Comment::Sinus rhythm:Prolon ged LA interval:Right bundle branch block:Electronically Signed On 08-08-2024 19:23:54 EDT by Coral Fofana MD 08/08/2024 7:18 PM EDT Coral Fofana MD ECG ORDERABLES Final Result SRC EKG * CXR (08/08/2024 5:25 PM EDT) Anatomical Region Laterality Modality Chest Digital Radiogra phy 08/08/2024 5:21 PM EDT Impressions 08/08/2024 5:22 PM EDT No overt edema or focal consolidation. [facility] Notify [facility] Classification: Routine. Reported and signed by: Kenia Davidson MD [facility] Narrative 08/08/2024 5:22 PM EDT XR CHEST PA AND LATERAL INDICATION: syncope COMPARISON: August 02, 2024 FINDINGS: ?? The cardiomediastinal silhouette is stably enlarged and sternotomy. Pacer leads are in expected position. The lungs are clear. The pleural spaces are clear. There is no acute osseous injury. Procedure Note Kenia Davidson MD - 08/08/2024 XR CHEST PA AND LATERAL INDICATION: syncope COMPARISON: August 02, 2024 FINDINGS: The cardiomediastinal silhouette is stably enlarged and sternotomy. Pacerleads are in expected position. The lungs are clear. The pleural spaces are clear. There is no acute osseous injury. IMPRESSION: No overt edema or focal consolidation. [facility] Notify [facility] Classification: Routine. Reported and signed by: Kenia Davidson MD [facility] Coral Fofana MD IMG DIAGNOSTIC IMAGING ORDER ADRIANNE Final Result * (ABNORMAL) Urine drug screen w/no conf ([facility]) (08/08/2024 4:56 PM EDT) Barbiturate Screen, Urine, No Conf. Negative Negative 08/08/2024 5:50 PM EDT [facility] Benzodiazepines Screen, Urine, No Conf. Negative Negative 08/08/2024 5:50 PM EDT [facility] Cannabinoids Screen, Urine, No Conf. Negative Negative 08/08/2024 5:50 PM EDT [facility] Cocaine Screen, Urine, No Conf. Negative Negative 08/08/2024 5:50 PM EDT [facility] Methadone Metabolite Screen, Urine, No Conf. Negative Negative 08/08/2024 5:50 PM EDT [facility] Opiates Screen, Urine, No Conf. Negative Negative 08/08/2024 5:50 PM EDT [facility] Oxycodone Screen, Urine, No Conf. Positive(A) Negative 08/08/2024 5:50 PM EDT [facility] Phencyclidine (PCP) Screen, Urine, No Conf. Negative Negative 08/08/2024 5:50 PM EDT [facility] Amphetamine Screen, Urine, No Conf. Negative Negative 08/08/2024 5:50 PM EDT [facility] Drugs Of Abuse Note See Comment 08/08/2024 5:50 PM T [facility] Comment: Drugs of Abuse Note: - These screening cutoffs are for medical/treatment/clinical purposes only. - For all non-medical purposes, samples should be referred for confirmatory testing - The concentration value must be greater than or equal to the cutoff to be reported as positive, and less than the cutoff to be reported as negative. - Follow-up confirmation testing by mass spectrometry is recommended for unexpected results. - Interpretive questions should be directed to the laboratory. - This test was performed in a CLIA certified laboratory. Analyte ?Cutoff (ng/mL) Amphetamine ?1000 Barbiturate ?200 Benzodiazepine ? 200 Cannabinoids ? 50 Cocaine ?300 Methadone/Methadone Metabolite* ?100 Opiates ?300 Oxycodone ?100 Phencyclidine (PCP) ?25 * At -, , and [facility] the screening cutoff for Methadone is 300 ng/mL. Urine Collection / Unknown 08/08/2024 4:56 PM EDT 08/08/2024 5:16 PM EDT Coral Fofana MD URINE ORDERABLES Final Resul t [facility] [address] [place] [address], [facility] [phone] * Fentanyl, urine, with no confirmation ([facility]) (08/08/2024 4:56 PM EDT) [facility] Fentanyl Screen, Urine Negative Negative 08/08/2024 5:50 PM EDT [facility] Comment: This immunoassay is reported as negative if the reactivity is below that of a 5 ng/mL calibrator. Effective 09/20/22, the Clinical Chemistry Laboratory at [facility] is running the urine fentanyl immunoassay test using [place] recommended reagents. Drugs Of Abuse Note 08/08/2024 5:50 PM EDT [facility] Comment: Formal chain of custody documentation not maintained on clinical specimens. Results are intended for medical management purposes only. Urine Collection / Unknown 08/08/2024 4:56 PM EDT 08/08/2024 5:16 PM EDT us Coral Fofana MD URINE ORDERABLES Final Resul t Performing Organization Address [facility] [place] [address], [facility] [phone] * Troponin T High Sensitivity, 1 Hour With Reflex ([facility]) (08/08/2024 4:40 PM EDT) Only the most recent of2 resultswithin the time period is included. [facility] High Sensitivity Troponin T 10 See Comment ng/L 08/08/2024 5:44 PM EDT [facility] Comment:High Sensitivity Tro ponin T levels should be interpreted in the context of the [facility] Care Signature pathway. 1 hour Delta from 0 Hour, HS-Troponin T -1 ng/L 08/08/2024 5:44 PM EDT [facility] Blood Venipuncture / Unknown 08/08/2024 4:40 PM EDT 08/08/2024 4:55 PM EDT Coral Fofana MD LAB BLOOD ORDERABLES Final R esult Performing Organization Address [facility] de Phone Number [address] [phone] * Immature Platelet Fraction ([facility]) (08/08/2024 3:25 PM EDT) Only the most recent of7 resultswithin the time period is included. [facility] Immature Platelet Fraction 5.8 1.2 - 8.6 % 08/08/2024 4:51 PM EDT [facility] Comment:In a patient with th rombocytopenia, a non-elevated IPF is suggestive of a hypoproliferative marrow state. If the IPF is elevated in a thrombocytopenic patient, this is suggestive of a destructive or consumptive process. Absolute Immature Platelet Fraction 4.1 <20.0 x1000/??L 08/08/2024 4:51 PM EDT [facility] Blood Venipuncture / Unknown 08/08/2024 3:25 PM EDT 08/08/2024 3:30 PM EDT us Coral Fofana MD LAB BLOOD ORDERABLES Final R esult [facility] [address] [place] [address], [facility] [phone] * (ABNORMAL) Basic metabolic panel (08/08/2024 3:25 PM EDT) Only the most recent of4 resultswithin the time period is included. Sodium 140 136 - 144 mmol/L 08/08/2024 3:50 PM EDT [facility] Potassium 4.7 3.3 - 5.3 mmol/L 08/08/2024 3:50 PM EDT [facility] Chloride 104 98 - 107 mmol/L 08/08/2024 3:50 PM EDT [facility] CO2 27 20 - 30 mmol/L 08/08/2024 3:50 PM EDT [facility] Anion Gap 9 7 - 17 08/08/2024 3:50 PM EDT [facility] Glucose 115(H) 70 - 100 mg/dL 08/08/2024 3:50 PM EDT [facility] BUN 21 8 - 23 mg/dL 08/08/2024 3:50 PM EDT [facility] Creatinine 1.60(H) 0.40 - 1.30 mg/dL 08/08/2024 3:50 PM EDT [facility] Calcium 8.4(L) 8.8 - 10.2 mg/dL 08/08/2024 3:50 PM EDT [facility] BUN/Creatinine Ratio 13.1 8.0 - 23.0 08/08/2024 3:50 PM EDT [facility] eGFR (Creatinine) 48(L) >=60 mL/min/1.73 m2 08/08/2024 3:50 PM EDT [facility] Comment: [facility] utilizes CKD-EPI Creatinine 2020 to report eGFR. Values < 60 mL/min/1.73 m2 may indicate CKD if present for more than three months AND creatinine is at steady state. The eGFR provides a rough estimate of kidney function. For further guidance, please refer to the CKD: Adult [employer] Signature pathway. Creatinine Delta 0.58(H) See Comment 08/08/2024 3:50 PM EDT [facility] Comment: Delta creatinine is the difference between the current creatinine and the most recent prior creatinine (if available within the previous 12 months). It is intended to detect significant changes in kidney function for patients whose creatinine is <5 mg/dL. A delta is not calculated for patients whose baseline creatinine is >=5 mg/dL or those who do not have a baseline within the last year. The following deltas will flag as critical (triggering a call from the laboratory): a) Deltas >= +1.5 mg/dL for patients with baseline creatinine <= 1.5 mg/dL. b) Deltas >= +3 mg/dL for patients with baseline creatinine between 1.5 and 5 mg/dL. Blood Venipuncture / Unknown 08/08/2024 3:25 PM EDT 08/08/2024 3:30 PM EDT us Coral Fofana MD LAB BLOOD ORDERABLES Final R esult [facility] [address] [place] [address], [facility] [phone] * Troponin T High Sensitivity, Emergency; 0 hour baseline AND 1 hour with reflex (3 hour) (:25 PM EDT) Only the most recent of2 resultswithin the time period is included. [facility] High Sensitivity Troponin T 11 See Comment ng/L 08/08/2024 3:52 PM EDT [facility] Comment:High Sensitivity Tro ponin T levels should be interpreted in the context of the [facility] Care Signature pathway. Blood Venipuncture / Unknown 08/08/2024 3:25 PM EDT 08/08/2024 3:30 PM EDT us Coral Fofana MD LAB BLOOD ORDERABLES Final R esult [facility] [address] [place] [address], [facility] [phone] * (ABNORMAL) Manual Differential (08/08/2024 3:25 PM EDT) Neutrophils 74.3(H) 39.0 - 72.0 % 08/08/2024 4:51 PM EDT [facility] Lymphocytes 15.4(L) 17.0 - 50.0 % 08/08/2024 4:51 PM EDT [facility] Monocytes 4.3 4.0 - 12.0 % 08/08/2024 4:51 PM EDT [facility] Eosinophils 6.0(H) 0.0 - 5.0 % 08/08/2024 4:51 PM EDT [facility] Basophil 0.0 0.0 - 1.4 % 08/08/2024 4:51 PM EDT [facility] Neutrophils Absolute 4.24 2.00 - 7.60 x 1000/??L 08/08/2024 4:51 PM EDT [facility] Lymphocyte Absolute 0.88 0.60 - 3.70 x 1000/??L 08/08/2024 4:51 PM EDT [facility] Monocyte Absolute Count 0.25 0.00 - 1.00 x 1000/??L 08/08/2024 4:51 PM EDT [facility] Eosinophil Absolute Count 0.34 0.00 - 1.00 x 1000/??L 08/08/2024 4:51 PM EDT [facility] Basophil Absolute Count 0.00 0.00 - 1.00 x 1000/??L 08/08/2024 4:51 PM EDT [facility] RBC Morphology Reviewed 08/08/2024 4:51 PM EDT [facility] Ovalocytes 1+(A) None 08/08/2024 4:51 PM EDT [facility] Blood Venipuncture / Unknown 08/08/2024 3:25 PM EDT 08/08/2024 3:30 PM EDT us Coral Fofana MD LAB BLOOD ORDERABLES Final R esult [facility] [address] [place] [address], [facility] [phone] * (ABNORMAL) CBC auto differential (08/08/2024 3:25 PM EDT) Only the most recent of7 resultswithin the time period is included. WBC 5.7 4.0 - 11.0 x1000/??L 08/08/2024 4:51 PM EDT [facility] RBC 4.05 4.00 - 6.00 M/??L 08/08/2024 4:51 PM EDT [facility] Hemoglobin 11.4(L) 13.2 - 17.1 g/dL 08/08/2024 4:51 PM EDT [facility] Hematocrit 35.90(L) 38.50 - 50.00 % 08/08/2024 4:51 PM EDT [facility] MCV 88.6 80.0 - 100.0 fL 08/08/2024 4:51 PM EDT [facility] MCH 28.1 27.0 - 33.0 pg 08/08/2024 4:51 PM EDT [facility] MCHC 31.8 31.0 - 36.0 g/dL 08/08/2024 4:51 PM EDT [facility] RDW-CV 14.2 11.0 - 15.0 % 08/08/2024 4:51 PM EDT [facility] Platelets 76(L) 150 - 420 x1000/??L 08/08/2024 4:51 PM EDT [facility] Comment:Platelet count verif ied by smear. MPV 12.1(H) 8.0 - 12.0 fL 08/08/2024 4:51 PM EDT [facility] nRBC 0.0 0.0 - 1.0 % 08/08/2024 4:51 PM EDT [facility] Absolute nRBC 0.00 0.00 - 1.00 x 1000/??L 08/08/2024 4:51 PM EDT [facility] Blood Venipuncture / Unknown 08/08/2024 3:25 PM EDT 08/08/2024 3:30 PM EDT Coral Fofana MD LAB BLOOD ORDERABLES Final R esult Performing Organization Address City/[facility]/ZIP [place] [address], [facility] [phone] * Magnesium (08/08/2024 3:25 PM EDT) Only the most recent of2 resultswithin the time period is included. Magnesium 2.1 1.7 - 2.4 mg/dL 08/08/2024 3:50 PM EDT [facility] Blood Venipuncture / Unknown 08/08/2024 3:25 PM EDT 08/08/2024 3:30 PM EDT Coral Fofana MD LAB BLOOD ORDERABLES Final R esult Performing Organization Address City/[facility]/ZIP Co de Phone Number [facility] [address] [place] [address], [facility] [phone] * (ABNORMAL) Comprehensive metabolic panel (08/08/2024 5:18 AM EDT) Only the most recent of3 resultswithin the time period is included. Sodium 139 136 - 144 mmol/L 08/08/2024 5:50 AM EDT [facility] Potassium 4.2 3.3 - 5.3 mmol/L 08/08/2024 5:50 AM [facility] Chloride 105 98 - 107 mmol/L 08/08/2024 5:50 AM [facility] CO2 25 20 - 30 mmol/L 08/08/2024 5:50 AM [facility] Anion Gap 9 7 - 17 08/08/2024 5:50 AM [facility] Glucose 147(H) 70 - 100 mg/dL 08/08/2024 5:50 AM [facility] BUN 16 8 - 23 mg/dL 08/08/2024 5:50 AM [facility] Creatinine 1.02 0.40 - 1.30 mg/dL 08/08/2024 5:50 AM [facility] Calcium 7.8(L) 8.8 - 10.2 mg/dL 08/08/2024 5:50 AM [facility] BUN/Creatinine Ratio 15.7 8.0 - 23.0 08/08/2024 5:50 AM [facility] Total Protein 5.8(L) 5.9 - 8.3 g/dL 025 5:50 AM [facility] Comment:As of 2023, th e reference interval for Total Protein has been changed from (6.6 to 8.7 g/dL) to (5.9 to 8.3 g/dL). Albumin 3.5(L) 3.6 - 5.1 g/dL 08/08/2024 5:50 AM [facility] Comment:As of 2023, th e reference interval for Albumin has been changed from (3.6 to 4.9 g/dL) to (3.6 to 5.1 g/dL). Total Bilirubin 0.2 <=1.2 mg/dL 08/09/19 25 5:50 AM [facility] Alkaline Phosphatase 70 9 - 122 U/L 08/08/2024 5:50 AM [facility] Alanine Aminotransferase (ALT) 16 9 - 59 U/L 08/08/2024 5:50 AM [facility] Comment:Calcium dobesilate c an cause artificially low ALT results at therapeutic concentrations Aspartate Aminotransferase (AST) 17 10 - 35 U/L 08/08/2024 5:50 AM [facility] Globulin 2.3 2.0 - 3.9 g/dL 08/08/2024 5:50 AM [facility] Comment:As of 2023, th e reference interval for Globulin has been changed from (2.3 to 3.5 g/dL) to (2.0 to 3.9 g/dL). A/G Ratio 1.5 1.0 - 2.2 08/08/2024 5:50 AM [facility] AST/ALT Ratio 1.1 Reference Range Not Established 08/08/2024 5:50 AM [facility] eGFR (Creatinine) >60 >=60 mL/min/1.73m2 08/08/2024 5:50 AM [facility] Comment: [facility] utilizes CKD-EPI Creatinine 2020 to report eGFR. Values < 60 mL/min/1.73 m2 may indicate CKD if present for more than three months AND creatinine is at steady state. The eGFR provides a rough estimate of kidney function. For further guidance, please refer to the CKD: Adult [employer] Signature pathway. Creatinine Delta -0.14 See Comment 5:50 AM [facility] Comment: Delta creatinine is the difference between the current creatinine and the most recent prior creatinine (if available within the previous 12 months). It is intended to detect significant changes in kidney function for patients whose creatinine is <5 mg/dL. A delta is not calculated for patients whose baseline creatinine is >=5 mg/dL or those who do not have a baseline within the last year. The following deltas will flag as critical (triggering a call from the laboratory): a) Deltas >= +1.5 mg/dL for patients with baseline creatinine <= 1.5 mg/dL. b) Deltas >= +3 mg/dL for patients with baseline creatinine between 1.5 and 5 mg/dL. Blood ARM NEC / Unknown Venipuncture / Unknown 08/08/2024 5:18 AM EDT 08/08/2024 5:25 AM EDT us Courtney Combs MD LAB BLOOD ORDERABLES Final Res ult [address] [phone] * TSH w/reflex to FT4 (08/07/2024 6:04 AM EDT) Thyroid Stimulating Hormone 2.910 See Comment ??IU/mL 08/07/2024 7:02 AM EDT [facility] Comment: Male & Non- Females: 0.270-4.200 ??IU/mL 1st Trimester: 0.110-3.480 ??IU/mL 2nd Trimester: 0.320-3.850 ??IU/mL Blood ARM NEC / Unknown Venipuncture / Unknown 08/07/2024 6:04 AM EDT 08/07/2024 6:17 AM EDT us Courtney Combs MD LAB BLOOD ORDERABLES Final Res ult Performing Organization Address [facility]/ZIP Co de Phone Number [address] [phone] * Vitamin B12 (08/07/2024 6:04 AM EDT) Vitamin B12 358 232 - 1,245 pg/mL 08/07/2024 7:02 AM EDT [facility] Blood ARM NEC / Unknown Venipuncture / Unknown 08/07/2024 6:04 AM EDT 08/07/2024 6:17 AM EDT us Courtney Combs MD LAB BLOOD ORDERABLES Final Res ult Performing Organization Address City/[facility]/ZIP Co de Phone Number [address] [phone] * (ABNORMAL) POC Glucose (Fingerstick) (08/06/2024 8:20 PM EDT) Only the most recent of6 resultswithin the time period is included. Glucose, Meter 173(H) 70 - 100 mg/dL 08/06/2024 8:20 PM EDT [facility] Blood 08/06/2024 8:20 PM EDT 08/06/2024 8:20 PM EDT us Courtney Combs MD POINT OF CARE TEST ORDERABLES Final Result Performing Organization Address [facility] Co de Phone Number [address] [phone] * PSA, total (screening) (08/06/2024 5:28 AM EDT) Prostate Specific Antigen, Screening 0.556 <=4.000 ng/mL 08/06/2024 10:27 AM EDT [facility] Comment: This assay is performed on the [employer] platform using WHO standards. A total PSA value of 4ng/mL may not be an appropriate actionable threshold in all clinical situations. For healthcare providers, see institutional care pathway via [employer] Tools > Integrated Care Models > Abnormal Prostate http://webhs.[email or web address]/uploads/abnormal%20Prostate%20stewardship%20ICM%20algorith m.pdf The results cannot be interpreted as absolute evidence of the presence or absence of malignant disease. ??The values obtained from a different assay method or kits cannot be used interchangeably. ??This test was performed on the Hector [id number] manufactured by [employer] using an ElectroChemiLuminescence immunoassay. Blood Venipuncture / Unknown 08/06/2024 5:28 AM EDT 08/06/2024 5:35 AM EDT us Courtney Combs MD LAB BLOOD ORDERABLES Final Res ult Performing Organization Address [facility] Co de Phone Number [address] [phone] * EEG (08/05/2024 1:39 PM EDT) Narrative [facility] NEUROPHYSIOLOGY - 08/05/2024 1:39 PM EDT Maria De Jesus Cordero MD ? 08/06/2024 ??1:36 PM [facility] Epilepsy [facility] Inpatient EEG Report Name: Joaquín Barrientos Date of : 1960 Date of Study: ?? 08/05/2024 Start time: 10:51 ?? Finish time: ??12:06 Study Duration: ??>60 minutes Leads: 19 leads (no inferior temporal chains) Type: Inpatient video-EEG ?? Location & Service: [facility] Inpatient; Internal Medicine Requesting Provider: Courtney Combs MD Reason for Study: ??This is a 64 y.o. male with tetralogy of Fallot status post repair in childhood, heart failure with reduced ejection fraction and nonischemic cardiomyopathy, atrial fibrillation on Xarelto, ICD placement, type 2 diabetes, anxiety, schizophrenia, and hypothyroidism presenting for syncope. Prior EEGs ?? None Relevant Medications: 1) Anti-seizure medications: None 2) Other relevant medications: Escitalopram oxalate Quetiapine Risperidone Trazodone Interpretation: Background activity: The most awake background was continuous, reactive, and consisted of alpha and beta frequencies, normal voltage. There was a 11 Hz posterior dominant rhythm that was symmetric and well-formed. ?? Symmetry and focal abnormalities: ??Symmetric. Epileptiform activity: No epileptiform patterns or seizures. Other notable findings: None Sleep rhythms: Drowsiness captured, no N2 sleep transients. Activation procedures: None EKG: Regular rate. Video events: No clinical events or seizures captured. Signed: Javy Edmond (R. EEG T., [facility]) Neurophysiologist EEG Impression: ?Normal >60-minute awake and drowsy inpatient video EEG. - No seizures or epileptiform patterns. No prior study for comparison. Interpreted by: ?? Epilepsy Attending Physician's Attestation: I have personally reviewed the EEG, reviewed/edited the final report, and agree with the above read. Maria De Jesus Cordero MD us Patricia Alas MD NEUROLOGY ORDERABLES Final Resu lt [facility] NEUROPHYSIOLOGY [address] [place] [address] * Urinalysis with culture reflex ([facility]) (08/05/2024 1:38 PM EDT) Clarity, UA Clear Clear 08/05/2024 2:32 PM EDT [facility] Color, UA Yellow Yellow, Colorless 08/05/2024 2:32 PM EDT [facility] Specific Ailey, UA 1.015 1.005 - 1.030 08/05/2024 2:32 PM EDT [facility] pH, UA 7.0 5.5 - 7.5 08/05/2024 2:32 PM EDT [facility] Protein, UA Negative Negative, Trace 08/05/2024 2:32 PM EDT [facility] Glucose, UA Negative Negative 08/05/2024 2:32 PM EDT [facility] Ketones, UA Negative Negative 08/05/2024 2:32 PM EDT [facility] Blood, UA Negative Negative 08/05/2024 2:32 PM EDT [facility] Bilirubin, UA Negative Negative 08/05/2024 2:32 PM EDT [facility] Leukocytes, UA Negative Negative 08/05/2024 2:32 PM EDT [facility] Nitrite, UA Negative Negative 08/05/2024 2:32 PM EDT [facility] Urobilinogen, UA <=2.0 <=2.0 mg/dL 08/05/2024 2:32 PM EDT [facility] Warner Top Tube Received ? Yes 08/05/2024 2:32 PM EDT [facility] Urine Collection / Unknown 08/05/2024 1:38 PM EDT 08/05/2024 1:41 PM EDT us Courtney Combs MD URINE ORDERABLES Final Result [address] [phone] * UA reflex to culture (08/05/2024 1:38 PM EDT) Reflex Urine Culture See Comment 08/05/2024 7:00 PM EDT [facility] Urine Collection / Unknown 08/05/2024 1:38 PM EDT 08/05/2024 1:41 PM EDT Narrative [facility] DEPARTMENT OF LABORATORY MEDICINE - 08/05/2024 7:00 PM EDT Urine culture will be reflexed if indicated by urinalysis results. ??Please check microbiology results for urine culture. us Courtney Combs MD URINE ORDERABLES Final Result [facility] DEPARTMENT OF LABORATORY MEDICINE [address] [place] [id number] [phone] [phone] * (ABNORMAL) Hemoglobin A1c (08/04/2024 5:28 AM EDT) Hemoglobin A1c 6.5(H) 4.0 - 5.6 % 08/05/2024 5:52 PM EDT [facility] Comment: Hemoglobin A1c values of 5.7-6.4 % identify individuals with an increased risk for future diabetes and to whom the term pre-diabetes may be applied. ??Hemoglobin A1c values greater than 6.4% on more than one occasion are diagnostic of diabetes. Lowering HbA1c to below 7% is considered to reduce microvascular and neuropathic complications of diabetes. This boronate affinity Hb A1c method provides accurate analytical results in the presence of nearly all Hb variants. Hb F higher than 10% of total Hb may yield falsely low results. Conditions that shorten red cell survival, such as the presence of unstable hemoglobins like Hb SS, Hb CC, and Hb SC, or other causes of hemolytic anemia may yield falsely low results. Iron deficiency anemia may yield falsely high results. Estimated Average Glucose mg/dL 140 mg/dL 08/05/2024 5:52 PM EDT [facility] Comment: Estimated average glucose (eAG) is a calculated value designed to estimate ??the expected average blood glucose level throughout the day from a single ??measurement of ??glycated hemoglobin A1C (HbA1c) and follows the calculation proposed by the [place] [employer] (Diabetes Care 31: 1-6, 2008). It may have less accuracy in children, women and patients with certain erythrocyte disorders. Blood Venipuncture / Unknown 08/04/2024 5:28 AM EDT 08/04/2024 5:35 AM EDT us Courtney Combs MD LAB BLOOD ORDERABLES Final Res ult Performing Organization Address [facility]/ZIP Co de Phone Number [address] [phone] * Cardiac Misc.?? Result Scan (08/04/2024 12:00 AM EDT) us Provider Not In System CV CARDIAC REPORT (CVR) F inal Result * Cardiac Event Monitor Result Scan (08/04/2024 12:00 AM EDT) us Provider Not In System CV CARDIAC REPORT (CVR) F inal Result * CT Abdomen Pelvis w IV Contrast and NO PO Contrast (08/02/2024 11:07 AM EDT) Anatomical Region Laterality Modality Abdomen, Pelvis, Ortho Pelvis, Abdomen and Pelvi s Computed Tomography 08/02/2024 11:0 7 AM EDT Impressions 08/02/2024 11:23 AM EDT [address]. No CT evidence of acute intra-abdominal traumatic injury. 2. Irregular filling defect within the bladder, probably indentation from enlarged prostate, however cannot rule out bladder (or prostate) neoplasm. Recommend urology consult and cystoscopy. [facility] Notify System Classification: Unexpected findings. Report initiated by: Patricio Ochoa MD Reported and signed by: Lashanda Alexandra MD Narrative 08/02/2024 11:[address] ABDOMEN PELVIS W IV CONTRAST HISTORY: Abdominal trauma, blunt COMPARISON: None TECHNIQUE: CT images of the abdomen and pelvis were obtained from the diaphragms to the pubic symphysis after the administration of intravenous contrast. IV CONTRAST: ??100 mL iohexoL (OMNIPAQUE) 350 mg iodine/mL injection FINDINGS: LUNG BASES: Please see accompanying CTA PE from same day for findings above the diaphragm. LIVER: Unremarkable. GALLBLADDER: There are probably noncalcified gallstones, for example in series 4 image 223. SPLEEN: Unremarkable. PANCREAS: Unremarkable. ADRENALS: Unremarkable. KIDNEYS: Unremarkable. BOWEL: Unremarkable. APPENDIX: There is post appendectomy. PERITONEUM: Unremarkable. LYMPH NODES: Unremarkable. VESSELS: Atherosclerosis. URINARY BLADDER: Bladder is filled with contrast, a filling defect along posterior bladder wall (measuring up to 1.7 x 1.8 x 2 cm, best appreciated on sagittal, see series 6 image 123) PELVIS: Unremarkable. BONES & SOFT TISSUE: Bilateral fat-containing inguinal hernias. Grade 2 anterolisthesis of L5 on S1. Grade 1 retrolisthesis of L1 on L2 and L2 on L3. Fused flowing syndesmophytes in the thoracolumbar spine, DISH. Procedure Note Lashanda Alexandra MD - 08/02/2024 CT ABDOMEN PELVIS W IV CONTRAST HISTORY: Abdominal trauma, blunt COMPARISON: None TECHNIQUE: CT images of the abdomen and pelvis were obtained from thediaphragms to the pubic symphysis after the administration of intravenouscontrast. IV CONTRAST: 100 mL iohexoL (OMNIPAQUE) 350 mg iodine/mL injection FINDINGS: LUNG BASES: Please see accompanying CTA PE from same day for findingsabove the diaphragm. LIVER: Unremarkable. GALLBLADDER: There are probably noncalcified gallstones, for example inseries 4 image 223. SPLEEN: Unremarkable. PANCREAS: Unremarkable. ADRENALS: Unremarkable. KIDNEYS: Unremarkable. BOWEL: Unremarkable. APPENDIX: There is post appendectomy. PERITONEUM: Unremarkable. LYMPH NODES: Unremarkable. VESSELS: Atherosclerosis. URINARY BLADDER: Bladder is filled with contrast, a filling defect alongposterior bladder wall (measuring up to 1.7 x 1.8 x 2 cm, best appreciatedon sagittal, see series 6 image 123) PELVIS: Unremarkable. BONES & SOFT TISSUE: Bilateral fat-containing inguinal hernias. Grade 2anterolisthesis of L5 on S1. Grade 1 retrolisthesis of L1 on L2 and L2 onL3. Fused flowing syndesmophytes in the thoracolumbar spine, DISH. IMPRESSION: 1. No CT evidence of acute intra-abdominal traumatic injury. 2. Irregular filling defect within the bladder, probably indentation fromenlarged prostate, however cannot rule out bladder (or prostate) neoplasm.Recommend urology consult and cystoscopy. [facility] Classification: Unexpected findings. Report initiated by: Patricio Ochoa MD Reported and signed by: Lashanda Alexandra MD Octavio Boyd MD [facility] [facility] ORDER[place]LES Final Result * CTA Chest (PE) w IV Contrast (08/02/2024 11:06 AM EDT) Anatomical Region Laterality Modality Chest Computed Tomogra phy 08/02/2024 10:4 4 AM EDT Impressions 08/02/2024 12:10 PM EDT Very limited exam with no evidence of proximal pulmonary embolism up to the level of segmental arteries. Cardiomegaly. Small airway disease. Diffuse idiopathic skeletal hyperostosis (DISH). [facility] Notify System Classification: Routine. Reported and signed by: Lashanda Alexandra MD Narrative 08/02/2024 12:10 PM EDT CTA PE (CHEST) INDICATION: Pulmonary embolism (PE) suspected, high prob COMPARISON: None TECHNIQUE: CT images of the chest were obtained from the lung bases through the apices after the intravenous administration of contrast. Coronal and oblique 3D/MIPS reformats are provided. IV CONTRAST: 100 milliliters Omnipaque 350 TECHNICAL LIMITATIONS: Poor contrast bolus. FINDINGS: PULMONARY ARTERIES: There is no evidence of filling defects in the proximal pulmonary arteries to suspect pulmonary embolism. However, study is very limited especially distal to the lobar arteries. Bilateral main pulmonary arteries are prominent, nonspecific finding that can be seen in setting of underlying pulmonary hypertension HEART: The heart is globally enlarged with cardiac leads in place. RV/LV RATIO: The RV/LV ratio measures less than 1. ??There is no reflux of contrast into the IVC or hepatic veins. SYSTEMIC VASCULATURE: Aorta and major branches are unremarkable. LUNGS: Bilateral subsegmental atelectasis. Scattered micronodules. AIRWAYS: Mild diffuse bronchial wall thickening. PLEURA: Fat indentation/Bochdalek's herniation in the vicinity of left lower lung. MEDIASTINUM: Status post median sternotomy. LYMPH NODES: No adenopathy. UPPER ABDOMEN: Limited evaluation of the upper abdomen is unremarkable. BONES & SOFT TISSUES: Flowing syndesmophytes are again seen anterior to the thoracic vertebrae, consistent with diffuse idiopathic skeletal hyperostosis. Cardiac defibrillator implanted left chest wall with leads in place. These findings were corroborated on the MIP images. Procedure Note Lashanda Alexandra MD - 08/02/2024 CTA PE (CHEST) INDICATION: Pulmonary embolism (PE) suspected, high prob COMPARISON: None TECHNIQUE: CT images of the chest were obtained from the lung basesthrough the apices after the intravenous administration of contrast.Coronal and oblique 3D/MIPS reformats are provided. IV CONTRAST: 100 milliliters Omnipaque 350 TECHNICAL LIMITATIONS: Poor contrast bolus. FINDINGS: PULMONARY ARTERIES: There is no evidence of filling defects in theproximal pulmonary arteries to suspect pulmonary embolism. However, studyis very limited especially distal to the lobar arteries. Bilateral mainpulmonary arteries are prominent, nonspecific finding that can be seen insetting of underlying pulmonary hypertension HEART: The heart is globally enlarged with cardiac leads in place. RV/LV RATIO: The RV/LV ratio measures less than 1. There is no reflux ofcontrast into the IVC or hepatic veins. SYSTEMIC VASCULATURE: Aorta and major branches are unremarkable. LUNGS: Bilateral subsegmental atelectasis. Scattered micronodules.AIRWAYS: Mild diffuse bronchial wall thickening. PLEURA: Fat indentation/Bochdalek's herniation in the vicinity of leftlower lung. MEDIASTINUM: Status post median sternotomy. LYMPH NODES: No adenopathy. UPPER ABDOMEN: Limited evaluation of the upper abdomen is unremarkable. BONES & SOFT TISSUES: Flowing syndesmophytes are again seen anterior tothe thoracic vertebrae, consistent with diffuse idiopathic skeletalhyperostosis. Cardiac defibrillator implanted left chest wall with leadsin place. These findings were corroborated on the MIP images. IMPRESSION: Very limited exam with no evidence of proximal pulmonary embolism up tothe level of segmental arteries. Cardiomegaly. Small airway disease.Diffuse idiopathic skeletal hyperostosis (DISH). [facility] Notify System Classification: Routine. Reported and signed by: Lashanda Alexandra MD Octavio Boyd MD IM CT ORDERABLES Final Result * Pelvis (08/02/2024 10:20 AM EDT) Anatomical Region Laterality Modality Pelvis, Ortho Pelvis, RCC Abdomen/Pelvis Computed Radiography 08/02/2024 10:2 5 AM EDT Impressions 08/02/2024 10:33 AM EDT No acute osseous injury. [facility] Notify [facility] Classification: Routine. Report initiated by: Patricio Ochoa MD Reported and signed by: Lashanda Alexandra MD Narrative 08/02/2024 10:33 AM EDT STUDY: XR PELVIS 1 OR 2 VIEWS INDICATION: trauma COMPARISON: None FINDINGS: No fracture, dislocation or radiopaque foreign body. Contrast material within the underdistended urinary bladder. Procedure Note Lashanda Alexandra MD - 08/02/2024 STUDY: XR PELVIS 1 OR 2 VIEWS INDICATION: trauma COMPARISON: None FINDINGS: No fracture, dislocation or radiopaque foreign body. Contrast material within the underdistended urinary bladder. IMPRESSION: No acute osseous injury. [facility] Notify System Classification: Routine. Report initiated by: Patricio Ochoa MD Reported and signed by: Lashanda Alexandra MD Octavio Boyd MD [facility] ORDERABL ES Final Result * CXR portable (08/02/2024 10:19 AM EDT) Anatomical Region Laterality Modality Chest Computed Radiogr aphy 08/02/2024 10:2 4 AM EDT Impressions 08/02/2024 10:32 AM EDT No acute cardiothoracic abnormality. [facility] Notify [facility] Classification: Routine. Report initiated by: Patricio Ochoa MD Reported and signed by: Lashanda Alexandra MD [facility] 08/02/2024 10:32 AM EDT XR CHEST PA OR AP INDICATION: trauma COMPARISON: None FINDINGS: ?? The cardiomediastinal silhouette is normal. AICD/defibrillator in place. The lungs are clear. The pleural spaces are clear. There is no acute osseous injury. Procedure Note Lashanda Alexandra MD - 08/02/2024 XR CHEST PA OR AP INDICATION: trauma COMPARISON: None FINDINGS: The cardiomediastinal silhouette is normal. AICD/defibrillator in place. The lungs are clear. The pleural spaces are clear. There is no acute osseous injury. IMPRESSION: No acute cardiothoracic abnormality. [facility] Notify System Classification: Routine. Report initiated by: Patricio Ochoa MD Reported and signed by: Lashanda Alexandra MD us Octavio Boyd MD [facility] ORDERABL ES Final Result * PT/INR (08/02/2024 10:05 AM EDT) Prothrombin Time 11.4 9.5 - 12.1 seconds 08/02/2024 10:23 AM EDT [facility] INR 1.09 0.90 - 1.16 08/02/2024 10:23 AM EDT [facility] Blood Venipuncture / Unknown 08/02/2024 10:05 AM EDT 08/02/2024 10:09 AM EDT Octavio Boyd MD LAB BLOOD ORDERABLES Final Resu lt Performing Organization Address [facility] Co de Phone Number [address] [phone] * Lipase (08/02/2024 10:05 AM EDT) Lipase 31 11 - 55 U/L 08/02/2024 10:38 AM EDT [facility] Blood Venipuncture / Unknown 08/02/2024 10:05 AM EDT 08/02/2024 10:09 AM EDT us Octavio Boyd MD LAB BLOOD ORDERABLES Final Resu lt Performing Organization Address [facility] Co de Phone Number [address] [phone] * Ethanol ([facility]) (08/02/2024 10:05 AM EDT) Ethanol <10 <10 mg/dL 08/02/2024 10:38 AM EDT [facility] Blood Venipuncture / Unknown 08/02/2024 10:05 AM EDT 08/02/2024 10:09 AM EDT us Octavio Boyd MD LAB BLOOD ORDERABLES Final Resu lt Performing Organization Address [facility] Co de Phone Number [address] [phone] * Hepatic function panel (08/02/2024 10:05 AM EDT) Total Bilirubin 0.4 <=1.2 mg/dL 08/03/19 10:38 AM [facility] Bilirubin, Direct 0.1 <=0.2 mg/dL 2024 10:38 AM [facility] Alkaline Phosphatase 69 9 - 122 U/L 08/02/2024 10:38 AM [facility] Alanine Aminotransferase (ALT) 29 9 - 59 U/L 08/02/2024 10:38 AM [facility] Comment:Calcium dobesilate c an cause artificially low ALT results at therapeutic concentrations Aspartate Aminotransferase (AST) 29 10 - 35 U/L 08/02/2024 10:38 AM [facility] AST/ALT Ratio 1.0 Reference Range Not Established 08/02/2024 10:38 AM [facility] Total Protein 6.6 5.9 - 8.3 g/dL 025 10:38 AM [facility] Comment:As of 2023, th e reference interval for Total Protein has been changed from (6.6 to 8.7 g/dL) to (5.9 to 8.3 g/dL). Albumin 4.0 3.6 - 5.1 g/dL 08/02/2024 10:38 AM [facility] Comment:As of 2023, th e reference interval for Albumin has been changed from (3.6 to 4.9 g/dL) to (3.6 to 5.1 g/dL). Globulin 2.6 2.0 - 3.9 g/dL 08/02/2024 10:38 AM [facility] Comment:As of 2023, th e reference interval for Globulin has been changed from (2.3 to 3.5 g/dL) to (2.0 to 3.9 g/dL). A/G Ratio 1.5 1.0 - 2.2 08/02/2024 10:38 AM [facility] Blood Venipuncture / Unknown 08/02/2024 10:05 AM EDT 08/02/2024 10:09 AM EDT us Octavio Boyd MD LAB BLOOD ORDERABLES Final Resu lt [place] [id number], [facility] [phone] * ED CRITICAL CARE (08/02/2024 9:48 AM EDT) Narrative Octavio Boyd MD - 08/02/2024 9:48 AM EDT Octavio Boyd MD ? 08/04/2024 ??5:42 PM ED Critical Care Performed by: Octavio Boyd MD Authorized by: Octavio Boyd MD ?? Critical care provider statement: ??Critical care time (minutes): ??50 ??Critical care time was exclusive of: ??Separately billable procedures and treating other patients and teaching time ??Critical care was time spent personally by me on the following activities: ??Trauma, examination of patient, discussions with consultants, ordering and review of radiographic studies and ordering and review of laboratory studies us Octavio Boyd MD PROCEDURE/MINOR SURGICAL ORDERA BLES Final Result * Cardiac EKG Result Scan (08/02/2024 12:00 AM EDT) us Provider Not In System CV CARDIAC REPORT (CVR) F inal Result * Cardiac Device Interrogation Result Scan (08/02/2024 12:00 AM EDT) us Provider Not In System CV CARDIAC REPORT (CVR) F inal Result * Creatinine, urine, random (11/05/2015 7:03 PM EDT) Creatinine, Urine, Random 42 Reference Range not established mg/dL 11/05/2015 7:32 PM EDT [facility] Urine specimen (specimen) Collection / Unknown 11/05/2015 7:03 PM EDT 11/05/2015 7:11 PM EDT Narrative [facility] - 11/05/2015 7:32 PM EDT R1 us Carlos Lara CLIENT DIRECTOR URINE ORDERABLES Fi nal Result [facility] [address] [place], [place] [address] [phone] from Last 3 Months or Most Recently Relevant to Health Maintenance Insurance MEDICARE MEDICARE MANAGED [facility] [place] [place] MEDICARE MEDICARE MANAGED [facility] [place] [place] MEDICARE MEDICARE MANAGED [facility] [place] [place] [id number] MEDICAID MEDICARE MANAGED [facility] [place] [place] MEDICARE [id number] MEDICAID MEDICARE [facility] MEDICARE [id number] MEDICAID MEDICARE MANAGED [facility] [place] [place] [id number] MEDICAID MEDICARE MANAGED MISC MEDICARE Advance Directives * Full Code (Latest Code Status on File) Date Activated Date Inactivated Comments 08/02/2024 2:10 PM 08/08/2024 2:42 PM * Full Interventions Date Activated Date Inactivated Comments 11/04/2015 8:13 PM 11/06/2015 6:27 PM Question Answer Comments With Whom was the Code Statu s Discussed? Health Care Accounts Payable Associate Specify Individuals' Names: Kinza preciado, healthcare proxy and foster flanging operator * Full Interventions Date Activated Date Inactivated Comments 11/04/2015 6:05 PM 11/04/2015 8:09 PM Care Teams Photoengraving Etcher Apprentice Relationship Specialty Start Date End Date Obtain, Unable To PCP - General 08/02/24
--- OUTSIDE RECORDS SUMMARY | 2024-08-20 18:35 | XMS_ITS | Clinical Summary ---
Author Organization [facility] Address [address] [place] [address] Care Team Providers Care Single Needle Operator Name Role Phone Patient, Has No [...] he presented to the emergency room at [facility]. He was discharged from the emergency room, later that same night he started noticing chest pressure radiating to his left ribs around 1 AM last night. He was supposedly on his way to the [facility] and [facility] when his chest pressure began. He [...] global hypokinesis, dilated RV, mild AR, mild CO and moderate TR. He has also been [...] global hypokinesis, dilated RV, mild AR, mild CO and moderate TR. He has also been [...] of 45%. Follows with Dr. Nix at [place]. etiology of HF was Non-ischemic cardiomyopathy, s/p [...] [facility] AICD placement 05/2016. His primary manager pediatric is Dr. Tobin, and takes Toprol Xl [...] (08/19/2019): Added automatically from request for surgery [id number] Assessment & Plan (03/04/2023 4:14 PM EST): Patient complaining of left sided chest pain which is at least sometimes reproducible. Patient has had extensive cardiac workup in the past at [facility], and [facility] which has all been negative. Coronary CT has been -ve, Nuclear stress test was also -ve for any ischemic changes. Patient did have 12 beats of Vtach which was noted on tele but was not seen on ICD interrogration at [place]. Echo was done at [facility] in February which was normal as [...] tomorrow Arrange f/u soon with his primary manager pediatric Non-cardiac chest pain 07/26/2019 Assessment & Plan [...] no evidence of ischemia although apical anterior RI cannot be excluded due to known right [...] on T waves. Patient states that his [employer] Stamper had discussed ablation with him in the [...] of Fallot, status postrepair (remote). Follows at [facility] and [facility] for congenital heart disease. 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 Assessment & [...] heparin drip if cardiac cath is warranted [id number] Stroke Risk (5-year stroke rate based on [...] history of paroxysmal AF, not on anticoagulation ([id number] of 1). He currently takes Toprol XL [...] recently. PT/OT recommends short term rehab. Plan: -manager technical services recs for placement -Fall precautions Encounters Date Type Department Care Team Description 07/11/2024 9:51 PM EDT - 07/12/2024 2:59 AM EDT [facility] Emergency Department [address] [place] [address] Grant Cox MD Chest pain, unspecified type [...] complete this topic Procedures * Due to [place] state law, [...] obtain the completed interpretation. ? Workstation ID: [id number] Narrative 07/12/2024 1:02 AM EDT EXAMINATION: XR [...] No pneumothorax is seen. Resulting Agency Comment [id number] Procedure Note Sean Arango MD - 07/12/2024 [...] possible to obtain thecompleted interpretation. Workstation ID: [id number] us Grant Cox MD IMG XR PROCEDURES Final Res ult * Repeat Troponin #2 (07/11/2024 10:59 PM EDT) Only the most recent of3 resultswithin the time period is included. Troponin T High Sensitivity 9 <=21 ng/L 07/11/2024 11:42 PM EDT [facility] Comment: Wu-Vybepcgu-P level of 52 ng/L or higher at [...] be evaluated in line with the 4th Ethan Definition of AMI. Troponin baseline and serial [...] BLOOD ORDERABLES Final Result Performing Organization Address City/[facility]/ZIP Co de Phone Number [facility] [address] [place] [address], [place] * Romano Top, Urine (07/11/2024 10:29 PM EDT) Pathologist [facility] Extra Tube Hold for add-ons. 07/12/2024 3:05 AM EDT [facility] Comment:Auto resulted. Urine Urine specimen collection, clean catch / Unknown Non-Blood Collection / Unknown 07/11/2024 10:29 PM EDT 07/11/2024 10:33 PM EDT Grant Cox MD LAB URINE ORDERABLES Final Result Performing Organization Address City/[facility]/ZIP Co de Phone Number [facility] [address] [place] [address], [place] * Urinalysis W/Reflex to Microscopic & Culture (07/11/2024 10:29 PM EDT) Color, Urine Light Yellow Colorless, Light Yellow, Yellow, Dark Yellow 07/11/2024 10:42 PM EDT [facility] Clarity, Urine Clear Clear 07/11/2024 10:42 PM EDT [facility] Specific [place], Urine 1.013 <1.030 07/11/2024 10:42 PM EDT [facility] pH, Urine 6.0 4.6 - 8.0 07/11/2024 10:42 PM EDT [facility] Protein, Urine Negative Negative 07/11/2024 10:42 PM EDT [email or web address] Glucose, Urine Normal Normal 07/11/2024 10:42 PM EDT [facility] Ketones, Urine Negative Negative 07/11/2024 10:42 PM EDT [email or web address] Bilirubin, Urine Negative Negative 07/11/2024 10:42 PM EDT [facility] Blood, Urine Negative Negative 07/11/2024 10:42 PM EDT [facility] Nitrite, Urine Negative Negative 07/11/2024 10:42 PM EDT [facility] Urobilinogen, Urine Normal Normal 07/11/2024 10:42 PM EDT [facility] Leukocyte Esterase, Urine Negative Negative 07/11/2024 10:42 PM EDT [facility] Urine Urine specimen collection, clean catch / Unknown Non-Blood Collection / Unknown 07/11/2024 10:29 PM EDT 07/11/2024 10:33 PM EDT us Grant Cox MD LAB URINE ORDERABLES Final Result [facility] [address] [place] [address], * Lipase (07/11/2024 9:13 PM EDT) Lipase 32 13 - 60 U/L 07/11/2024 10:54 PM EDT [facility] Blood Structure of peripheral vein / Unknown Venipuncture / Unknown 07/11/2024 9:13 PM EDT 07/11/2024 9:23 PM EDT us Grant Cox MD LAB BLOOD ORDERABLES Final Result [facility] [address] [place] [address], * Hepatic Function Panel (07/11/2024 9:13 PM EDT) Total Protein 6.2 6.0 - 8.0 g/dL 07/11/2024 10:54 PM EDT [facility] Albumin 3.9 3.5 - 5.2 g/dL 07/11/2024 10:54 PM EDT [facility] Globulin, Total 2.3 2.1 - 4.2 g/dL 07/11/2024 10:54 PM EDT [facility] Bilirubin, Total 0.4 0.2 - 1.2 mg/dL 07/11/2024 10:54 PM EDT [facility] Bilirubin, Direct 0.2 <=0.4 mg/dL 07/11/2024 10:54 PM EDT [facility] Alkaline Phosphatase 69 35 - 129 U/L 07/11/2024 10:54 PM EDT [facility] AST 17 10 - 40 U/L 07/11/2024 10:54 PM EDT [facility] ALT 17 10 - 40 U/L 07/11/2024 10:54 PM EDT [facility] Bilirubin, Indirect 0.20 <=0.70 mg/dL 07/11/2024 10:54 PM EDT [facility] A/G Ratio 1.7 1.5 - 3.0 07/11/2024 10:54 PM EDT [facility] Blood Structure of peripheral vein / Unknown Venipuncture / Unknown 07/11/2024 9:13 PM EDT 07/11/2024 9:23 PM EDT Grant Cox MD LAB BLOOD ORDERABLES Final Result Performing Organization Address City/[facility]/ZIP Co de Phone Number [facility] [address] [place] [address], [place] * ECG 12 lead (07/11/2024 3:18 PM EDT) Only the most recent of2 resultswithin the time period is included. Ventricular Rate EKG 75 BPM MUSE EKG Atrial Rate 75 BPM MUSE EKG CO Interval 200 ms MUSE EKG QRS Interval 168 ms MUSE EKG QT Interval 450 ms MUSE EKG QTC Interval 502 ms MUSE EKG P [place] 64 degrees MUSE EKG R [place] 109 degrees MUSE EKG T Wave [place] 57 degrees MUSE EKG 07/11/2024 3:18 PM [...] - 10.8 10*3/uL 07/11/2024 2:53 PM EDT [facility] RBC 4.03(L) 4.20 - 5.80 10*6/uL 07/11/2024 2:53 PM EDT [facility] Hemoglobin 11.0(L) 13.2 - 17.1 g/dL 07/11/2024 2:53 PM EDT [facility] Hematocrit 34.5(L) 38.5 - 50.0 % 07/11/2024 2:53 PM EDT [facility] MCV 85.6 80.0 - 100.0 fL 07/11/2024 2:53 PM EDT [facility] MCH 27.3 27.0 - 33.0 pg 07/11/2024 2:53 PM EDT [facility] MCHC 31.9(L) 32.0 - 36.0 g/dL 07/11/2024 2:53 PM EDT [facility] RDW 13.6 11.0 - 15.0 % 07/11/2024 2:53 PM EDT [facility] Platelets 81(L) 140 - 400 10*3/uL 07/11/2024 2:53 PM EDT [facility] MPV 11.7 7.5 - 12.5 fL 07/11/2024 2:53 PM EDT [facility] Neutrophil % 64.9 % 07/11/2024 2:53 PM EDT [facility] Immature Grans % 2.3(H) 0.0 - 0.9 % 07/11/2024 2:53 PM EDT [facility] Lymphocyte % 18.8 % 07/11/2024 2:53 PM EDT [email or web address] Monocyte % 9.2 % 07/11/2024 2:53 PM EDT [facility] Eosinophil % 3.7 % 07/11/2024 2:53 PM EDT [facility] Basophil % 1.1 % 07/11/2024 2:53 PM EDT [facility] Neutrophil # 4.87 1.50 - 7.80 10*3/uL 07/11/2024 2:53 PM EDT [email or web address] Immature Grans # 0.17(H) <=0.03 10*3/uL 07/11/2024 2:53 PM EDT [facility] Lymphocyte # 1.40 0.85 - 3.90 10*3/uL 07/11/2024 2:53 PM EDT [facility] Monocyte # 0.70 0.20 - 0.95 10*3/uL 07/11/2024 2:53 PM EDT [facility] Eosinophil # 0.30 0.02 - 0.50 10*3/uL 07/11/2024 2:53 PM EDT [facility] Basophil # 0.10 0.00 - 0.20 10*3/uL 07/11/2024 2:53 PM EDT [facility] nRBC % 0.0 /100 WBCs 07/11/2024 2:53 PM EDT [facility] nRBC # <0.01 <0.01 10*3/uL 07/11/2024 2:53 PM EDT [facility] Blood Structure of peripheral vein / Unknown Venipuncture / Unknown 07/11/2024 2:30 PM EDT 07/11/2024 2:47 PM EDT us Grant Cox MD LAB BLOOD ORDERABLES Final Result [facility] [address] [place] [address], [place] * (ABNORMAL) Basic Metabolic Panel (07/11/2024 2:30 PM EDT) NA 140 135 - 145 mmol/L 07/11/2024 3:20 PM EDT [email or web address] K 4.1 3.5 - 5.3 mmol/L 07/11/2024 3:20 PM EDT [email or web address] Cl 105 98 - 107 mmol/L 07/11/2024 3:20 PM EDT [facility] CO2 23 22 - 32 mmol/L 07/11/2024 3:20 PM EDT [facility] BUN 16 7 - 23 mg/dL 07/11/2024 3:20 PM EDT [facility] Creatinine 1.25 0.60 - 1.30 mg/dL 07/11/2024 3:20 PM EDT [facility] Glucose 156(H) 65 - 99 mg/dL 07/11/2024 3:20 PM EDT [facility] Calcium 8.0(L) 8.6 - 10.5 mg/dL 07/11/2024 3:20 PM EDT [facility] Anion Gap 12 5 - 15 07/11/2024 3:20 PM EDT [facility] eGFR 65 >=60 mL/min/1. 73m2 07/11/2024 3:20 PM EDT [facility] Comment:The estimated glomer ular [...] [facility] [address] [place] [address], [place] * HEART & VASCULAR - SCANNED (07/11/2024) Anatomical Region Laterality Modality Other us Onbase Scan [place]aine SCANNED PROCEDURES Final Resu lt * (ABNORMAL) Hemoglobin A1c (10/03/2022 8:30 AM EDT) Hemoglobin A1C 6.7(H) <5.7 % of total Hgb 10/03/2022 4:36 PM EDT [facility] Comment: For someone without known diabetes, a [...] (MG/DL) 146 mg/dL 10/03/2022 4:36 PM EDT [facility] eAG (MMOL/L) 8.1 mmol/L 10/03/2022 4:36 PM EDT [facility] Blood Structure of peripheral vein / Unknown Venipuncture / Unknown 10/03/2022 8:30 AM EDT 10/03/2022 8:36 AM EDT Narrative [facility] - 10/03/2022 4:36 PM EDT [facility] Received Date: Dank Bob MD LAB BLOOD ORDERABLES Final Res ult [place] [place] [address], [place] [address], [place] [phone] [employer] [facility] [address], [place] [address], [place] [phone] * Hepatitis C Antibody w/Reflex to HCV RNA, Quantitative PCR (08/27/2019 2:07 PM EDT) Hepatitis C Antibody NON-REACT GALO NON-REACT GALO 08/28/2019 1:42 AM EDT [facility] Signal To Cut-Off 0.08 <1.00 08/28/2019 1:42 AM EDT [employer] [facility] Comment: HCV antibody was non-reactive. There is no laboratory evidence of HCV infection. In most cases, no further action is required. However, if recent HCV exposure is suspected, a test for HCV RNA (test code 23863) is suggested. For additional information please refer to http://education.Jostle/faq/YGA95a6 (This link is being provided for informational/ educational purposes only.) Blood Structure of peripheral vein / Unknown Venipuncture / Unknown 08/27/2019 2:07 PM EDT 08/27/2019 2:13 PM EDT Narrative [facility] - 08/28/2019 1:42 AM EDT [facility] Received Date: Jomar Leung MD LAB BLOOD ORDERABLES Final Resul t [facility] [address], [place] [address], [facility] [address], [place] [address], [place] [phone] from Last 3 Months or Most Recently Relevant to Health Maintenance Insurance [facility] [employer] Advance Directives Documents on File Type Date Recorded Patient Crew Member Expl anation Health Care Proxy 10/15/2019 11:08 [...] Browning Sister Health Care Agent Care Teams Single Needle Operator Relationship Specialty Start Date End Date Patient, Has No Pcp Or Ref DO NOT EDIT THIS RECORD VIA PROVIDER ON THE FLY PCP - General Alligator Trapper 07/11/24
--- OUTSIDE RECORDS SUMMARY | 2024-08-20 18:35 | XMS_ITS | Data Portability ---
Author Organization [facility], Main Office Address [address] [place] [address] [address] [place] [address] Care Team Providers Care Wool Classer Name Role Phone JIM VILLANUEVA - 2ND [...] inophen 5 mg-325 mg tablet 024 02/16/20 [facility] , [address] [place] [address], [address], 21:36:06 Patient TargetsNo targets recorded. Patient InstructionsNo instructions recorded. Reason for Referral None Reported. Problems Name Problem SNOMED Code Status Onset Date Resolution Date Notes Provider Name and Address Organization Details Recorded Time Orthostatic hypotension 81763490 Active 2023 Ivelisse Hart MD [address] [facility], [address], [place], [address], [facility] [employer] 4 18:24:49 Chest pain 39950940 Active 2023 Ivelisse Hart MD [address], [address], [place], [address], [facility] [employer] [facility] 4 18:27:24 Bifascicula r block 70418427 Active 2023 Ivelisse Hart MD [address] , [address], [place], [address], [facility] 4 18:31:47 Thrombocyto penic disorder 385628342 Active 2023 Ivelisse Hart MD [address], [address], [place], [address], [facility] 4 18:43:24 Intellectua l disability 942011660 Active 2023 Ivelisse Hart MD [address], [address], [place], [address], [facility] 4 18:44:22 Gastroesoph ageal reflux disease without esophagitis 209176267 Active 2023 Ivelisse Hart MD [address] [place] [address], [address], [place], [address], [facility] 4 18:54:10 Obesity 921421694 Active 2023 Ivelisse Hart MD [address] [facility], [address], [place], [address], [facility] 4 18:54:57 Mixed anxiety and depressive disorder 839568852 Active 2023 Ivelisse Hart MD [address] [place] [address], [address], [place], [address], [facility] 4 18:57:08 Pain of knee region 1739938226 Active 2023 Ivelisse Hart MD [address] [place] [address], [address], [place], [address], [facility] 4 18:58:16 Obstructive sleep apnea syndrome 09400218 Active 2023 Ivelisse Hart MD [address] [place] [address], [address], [place], [address], [facility] 4 19:03:46 Harmful pattern of use of alcohol 71009721 Active 2023 Ivelisse Hart MD [address] [facility], [address], [place], [address], [facility] 4 19:06:12 Migraine 39408868 Active 2023 Ivelisse Hart MD [address], [address], [place], [address], [place] [facility] [facility] 4 19:10:43 Frequent attender of emergency room 3754298971993 04 Active 2023 Ivelisse Hart MD [address], [address], [place], [address], [place] [employer] 4 19:12:29 Mental retardation Active 2017 Razia Kitty null, [facility] 8 16:10:41 Atrial fibrillatio n 03007992 Active 2017 Razia Upton null, [facility] 8 16:10:46 Tetralogy of Fallot 53097156 Active 2017 Razia Kitty null, [facility] 8 16:10:59 Essential hypertensio n 88706386 Active 2017 Razia Upton null, [facility] 8 16:11:14 Mixed hyperlipide crescencio 858402639 Active 2017 Razia Kitty null, [place] [employer] [facility] 8 16:11:21 Benign prostatic hyperplasia 155441523 Active 2017 Razia Kitty null, [facility] 8 16:11:26 Chronic obstructive pulmonary disease 97185468 Active 2017 Razia Kitty null, [place] [employer] [facility] 8 16:11:31 Diabetes mellitus 86395867 Active 2017 Razia Kitty null, [facility] [employer] [facility] 8 16:17:50 Hypothyroid ism 34475889 Active 2017 Razia Upton null, [place] [employer] [facility] 8 16:19:53 Ankle pain 280176667 Active 2017 SHANNON LORD [address], [address], [place], [address], [employer] [facility] 8 15:59:07 Problem Notes None recorded. Medical Equipment None Reported. Allergies Allergen ID Allergen Name Allergen Category Reaction Reaction Severity Criticality Documentation Date Start Date Code Code System Note Provider Name and Address Organization Details Recorded Time 37225 Pisum sativum (pea) extract food other Not available high 02/12/2024 53562 12 RxNorm green peas Ashley Irwin NP [address], [address], [place], [address], [employer] [facility] [facility] 4 13:11:02 25344 honey bee venom medicatio n other Not available high 02/12/2024 54811 7 RxNorm unkno wn Ashley Irwin NP [address], [address], [place], [address], [facility] 4 13:11:27 9916 Lipitor medicatio n Not available Not available Not available 06/22/2017 72580 5 RxNorm Razia Tang [facility], [employer] 8 16:05:13 Medications Name Sig Start Date Stop Date [...] Address Organization Details Last Updated DateTime 4 630540. 58 g 81 /min 18 /min 97.6 [degF] 94 % 94 % 143 mm[Hg] 83 mm[Hg] Ashley Irwin NP [address] [facility], [address], [place], [address], [facility] 4 13:22:45 Date Recorded Body height Body mass index (BMI) Body weight Heart rate Respiratory rate Body temperature Oxygen saturation Oxygen saturation in Arterial blood by Pulse oximetry Systolic blood pressure Diastolic blood pressure Provider Name and Address Organization Details Last Updated DateTime 4 175.26 cm 36.5 kg/m2 653226. 11 g 8 /min 18 /min 98 [degF] 98 % 98 % 146 mm[Hg] 76 mm[Hg] Ivelisse Hart MD [address] [facility] [address], [address], [place], [address], [facility] 4 18:18:26 Date Recorded Body height Body mass index (BMI) Body weight Heart rate Respiratory rate Body temperature Oxygen saturation Oxygen saturation in Arterial blood by Pulse oximetry Systolic blood pressure Diastolic blood pressure Provider Name and Address Organization Details Last Updated DateTime 4 175.26 cm 37.1 kg/m2 590860. 68 g 79 /min 16 /min 97.7 [degF] 97 % 97 % 148 mm[Hg] 82 mm[Hg] Ashley Irwin NP [address] [facility] [address], [place], [address], [facility] 4 10:54:45 Date Recorded Heart rate Respiratory rate Body temperature Oxygen saturation Oxygen saturation in Arterial blood by Pulse oximetry Systolic blood pressure Diastolic blood pressure Provider Name and Address Organization Details Last Updated DateTime 8 83 /min 23 /min 98.3 [degF] 97 % 97 % 130 mm[Hg] 71 mm[Hg] SHANNON CALIXTO [address] [facility], [address], [place], [address], [facility] 8 15:45:03 Date Recorded Heart rate Oxygen saturation Oxygen saturation in Arterial blood by Pulse oximetry Systolic blood pressure Diastolic blood pressure Provider Name and Address Organization Details Last Updated DateTime 8 74 /min 96 % 96 % 128 mm[Hg] 76 mm[Hg] Razia Tang [facility] 8 15:09:30 Social History Question Answer Notes LastModified by Organizat ion Details LastModified Time Tobacco Smoking Status Never Smoker Ivelisse Hart MD [address] [facility] [address], [facility] [address], [place], [address], [employer] 02/16/2024 17:40:34 Do You Have An Advance Directive? Yes Full Code Information not available 06/22/2017 How Much Tobacco Do You Chew? None Information not available 06/22/2017 What Is Your Code Status? Full Code Information not available 02/12/2024 Where Do You Live? Apartment Recently Moved In With Cousin, Had Been At A Sober House, But Recently graduated [employer] Information not available 02/16/2024 Legal Guardian? No Informati on not available 02/16/2024 Do You Have A Medical Power Of Network Diagnostic Support Specialist? Yes Information not available 02/16/2024 What Was The Date Of Your Most Recent Tobacco Screening? 02/16/2024 Information not available 02/16/2024 Do You Have An Out Of Hospital DNR? No Information not available 02/16/2024 What Is Your Relationship Status? Single Information not available 02/16/2024 How Much Tobacco Do You Smoke? No Information not available 02/12/2024 Has Tobacco Cessation Counseling Been Provided? No N/A As Pt Is A Non-smoker. Information not available 02/16/2024 Sex: Unknown Functional Status Question Answer Note LastModified by Organizat ion Details LastModified Time Do you use any illicit or recreational drugs? No Information not available 02/16/2024 Do you or have you ever used any other forms of tobacco or nicotine? No Information not available 02/16/2024 What is your level of alcohol consumption? None Sober since 03/2023, about to hit 11 months. Information not available 02/16/2024 Mental Status None recorded. Family History Nothing Reported Notes:n/c Medical History No medical history recorded. Immunizations Vaccine Type Date Status Note Provider Nam e and Address Organization Details Recorded Time Pneumococcal conjugate PCV 13 3 completed Dary Farmer [facility] 02/12/2024 13:04:57 pneumococcal polysaccharide PPV23 2 completed Dary Farmer [facility] 02/12/2024 13:05:19 pneumococcal polysaccharide PPV23 8 completed Dary Farmer [facility] 02/12/2024 13:05:29 influenza, unspecified formulation 2 completed Dary Farmer [facility] 02/12/2024 13:05:46 influenza, unspecified formulation 4 completed Dary Farmer [facility] 02/12/2024 13:05:53 SARS-COV-2 (COVID-19) vaccine, UNSPECIFIED 1 completed Dary Farmer [facility] 02/12/2024 13:06:09 SARS-COV-2 (COVID-19) vaccine, UNSPECIFIED 1 completed Dary Farmer [facility] 02/12/2024 13:06:18 SARS-COV-2 (COVID-19) vaccine, UNSPECIFIED 2 completed Dary Farmer [facility] 02/12/2024 13:06:26 influenza, unspecified formulation 3 completed Dary [facility] 02/12/2024 13:06:49 Tdap 4 completed Dary [facility] 02/12/2024 13:07:12 Past Encounters Encounter ID Performer Location Encounter Start Date Encounter Closed Date Diagnosis/Indication Diagnosis SNOMED-CT Code Diagnosis ICD10 Code Diagnosis Note [id number] JEN Rendon [facility] on [address] [place] [address] 06/22/2017 16:05:35 06/27/2017 08:58:26 Mental retardation 17881048 F78 Supportive careHCP not invoked-ap pears capable of making own medical decisions presently Atrial fibrillation 4943 6004 I48.0 Not on anticoagul ationASA 81 mg dailySotal ol 160 mg BIDMonitor HR Tetralogy of Fallot 8629 9006 Q21.3 Hx ofs/p repair and shunt Essential hypertension 54590302 I10 Norvasc 2.5 mg dailySotal ol 160 mg BIDMonitor bp and labs Mixed hyperlipidemia 267 844425 E78.2 Diet controlled Will check lipid panel Benign pro static hyperplasia 806823216 N40.0 s/p TURP in Mar.Report ing dysuria-wi ll obtain urine for UA, C&SMonitor Chronic ob structive pulmonary disease 53838294 J43.8 Duonebs prnMonitor respirator y status Diabetes mellitus 041041 09 E11.9 Glipizide 5 mg dailyMetfo rmin 1000 BID Monitor accuchecks HbA1c excellent 06/20-follo w Hypothyroidism 85358423 E03.8 Levothyrox ine 75 mcg dailyTSH wnl 03/28/17Re peat annually Gastroesop hageal reflux disease without esophagitis 699421365 K21.9 Omeprazole 20 mg dailyMonit or sxs Loose stool 344125273 R1 9.5 Monitor loose stools-if continuing will obtain stool for c. diff [id number] JEN Rendon [facility] on [address] [place] [address] 07/14/2017 12:51:22 07/19/2017 09:56:01 Tetralogy of Fallot 12594420 Q21.3 Hx ofs/p repair and shuntCardi ology eval prn Atrial fibrillation 4943 6004 I48.0 Not on anticoagul ationASA 81 mg dailySotal ol 160 mg BID-add parameters to hold for HR <55Obtain EKG due to c/o chest painMonito r and if chest pain worsening or associated with SOB send to ED for eval [id number] SHANNON CALIXTO [facility] on [address] [place] [phone] 07/25/2017 15:44:04 07/27/2017 10:54:49 Atrial fibrillation 76380064 I48.0 Not on anticoagul ationASA 81 mg dailySotal ol 160 mg BID-add parameters to hold for HR <55sent back from ED with no changes, chest pain resolved with tramadol 50 mg Tetralogy of Fallot 8629 9006 Q21.3 Hx ofs/p repair and shuntCardi ology eval prn Ankle pain 702543176 M25 .572 Pain in left ankle, achillesPT to eval and treat [id number] JEN Rendon [facility] on [address] [place] [id number] 08/10/2017 14:47:44 08/17/2017 14:44:41 Atrial fibrillation 17859860 I48.0 Not on anticoagul ationASA 81 mg dailySotal ol 160 mg BIDHR stableF/u with cardiology , PCP Tetralogy of Fallot 8629 9006 Q21.3 Hx ofs/p repair and shuntCardi ology eval prn Ankle pain 890342995 M25 .572 Pain in left ankle, achilles-p atient reports hx of torn achillesPa in control with tramadolOu tpatient f/u with PCP to consider surgical repair Mental retardation 45060 005 F78 Supportive careServic es in place for discharge home Essential hypertension 05375530 I10 Norvasc 2.5 mg dailySotal ol 160 mg BIDBP with good control Mixed hyperlipidemia 267 751720 E78.2 Diet controlled Will check lipid panel Benign pro static hyperplasia 266235539 N40.0 s/p TURP in Dec.F/u with urology prn Chronic ob structive pulmonary disease 22784323 J43.8 Duonebs prnMonitor respirator y status Diabetes mellitus 868842 09 E11.9 Glipizide 5 mg dailyMetfo rmin 1000 BID Monitor accuchecks F/u with PCP Hypothyroidism 04130885 E03.8 Levothyrox ine 75 mcg dailyTSH wnl 03/28/17Re peat annually Gastroesop hageal reflux disease without esophagitis 850257544 K21.9 Omeprazole 20 mg dailyMonit or sxs [id number] Ashley Irwin NP [address] [address] 02/12/2024 12:59:52 02/13/2024 09:38:01 Atrial fibrillation 43083262 I48.0 has AICD with hx of teralogy of fallotriva roxaban 20 mg po dailySotal ol 80 mg BIDHR stableF/u with cardiology on 02/25 and 02/26? Tetralogy of Fallot 8629 9006 Q21.3 Hx ofs/p repair and shunt with AICD in placeCardi ology eval prn Mental retardation 13007 005 F79 Supportive careServic es in place for discharge home Essential hypertension 26485676 I10 contSotalo l 80mg BIDbp stablecons ider restarting lisinopril and isosorbide Mixed hyperlipidemia 267 197862 E78.2 Diet controlled monitor Benign pro static hyperplasia 471431390 N40.0 s/p TURP in Mar.tamulo sin on hold due to ortho bp, consider restarting F/u with urology prn Chronic ob structive pulmonary disease 78895953 J43.8 breo ellipta 100 mcg/25 mcg 1 puff dailyDuone bs prnalb prnMonitor respirator y status Diabetes mellitus 873343 09 E11.9 Metformin 500 mg BIDMonitor accuchecks monitor Hypothyroidism 30380217 E03.8 Levothyrox ine 75 mcg dailytsh aboveRepea t prn Gastroesop hageal reflux disease without esophagitis 542038554 K21.9 esomeprazo le 20 mg dailyMonit or sxs Obesity 855411021 E66.9 pt with obesitydie tician consult for good nutritiona l choicescar diac dietmonito r Peripheral neuropathy due to type 2 diabetes mellitus 7135772381 107 E11.42 gabapentin 300 mg po bidGlipizi de 5 mg dailyMetfo rmin 1000 BIDMonitor accuchecks Mixed anxi ety and depressive disorder 335426500 F41.8 risperidon e 1.5 mg po qhsquetiap ine 100 mg po qhaescital opram 20 mg po dailyhydro xyzine 25 mg po bidlorazep am 0.5 mg po daily prn anxietytra zodone 50 mg po qhsmonitor Pain of knee region 1003 395011 M25.569 xray at [facility] neg for acute concernsno ibuprophen due to xarelto per ptlidocain e patch to right knee on in amtyl 650 mg po tid and prn nte 3 gram/24 hrsmonitor Obstructiv e sleep apnea syndrome 95392016 G47.33 has osapt reports his cpap broke and was supposed to get one today but missed his apptresche d apptmonito r Chest pain 25452120 R07. 9 resolvedpt [facility] and ruled out acute cardiac disease and returned to rehabmonit or Orthostati c hypotension 93438284 I95.1 pt with orthostati c hypotensio n upon standing, resolved with 1 liter of fluid and decreased bp medsencour age po fluidspt educated and aware to get up slowlypt had lisinopril , isosorbide , and tamsulosin heldplan to restart one by one as ableorthos tatic bp daily x 2 weeks, doc in pcc Adult fail ure to thrive syndrome 993497767 R62.7 pt reports 11 hospitaliz ations for falls since 04/2022 and feels if he needs to go back to long-term he is open to it.monitor Recurrent falls 45746260 2 R29.6 pt with recurrent fallssuppo rtive caretherap y eval and treatortho static bp, get up slowly with walkermoni tor Asthenia 29548804 R53.1 pt with weaknessPT /OT eval and treatmonit or [id number] Ivelisse Hart MD [address] [address] 02/16/2024 16:01:25 02/19/2024 11:53:18 Chest pain 12009256 R07.89 Chronic and recurrent ACS ruled out numerous times.Cont inue tx with gabapentin 300 mg TID, APAP 650 mg TID and 650 mg q 4 hrs prn (NTE TD of 3000 mg/d).Does have NTG SL ordered, but unclear if he needs this.Monit or sxs.Do not send to ED for CP unless changes in VS. Orthostati c hypotension 14914633 I95.1 BP has not been orthostati c [...] F/U with cardio as planned. Essential hypertension 12200096 I10 With some borderline SBPs since here, but mostly in good control off lisinopril , isosorbide and tamsulosin .Would hesitate to restart any anti-hyper tensives unless SBP consistent ly >150, due to hx of orthostasi s.Monitor BP, pulse and labs. Mixed hyperlipidemia 267 324913 E78.2 Continue ezetimibe 10 mg qd.F/U as outpt. Benign pro static hyperplasia 397848682 N40.0 No current sxs.Tamsul osin on hold due to orthostati c hypotensio n, consider restarting .F/u with uro as planned Diabetes mellitus 823451 09 E11.9 Fingerstic ks checked twice fasting since here, both low.Hga1C was borderline at 6.9Continu e metformin 500 mg BIDMonitor fingerstic ks prn and adjust meds as outpt. Hypothyroidism 36985172 E03.8 TSH WNL.Contin ue levothyrox ine 75 mcg qdMonitor TSH yearly. Gastroesop hageal reflux disease without esophagitis 221991578 K21.9 No current sxs.Contin ue esomeprazo le 20 mg qdMonitor GI sxs Obesity 595051973 E66.09 Continue to encourage healthy eating and physical activity.D ietician consult.Mo yessicaor wts. Mixed anxi ety and depressive disorder 622513370 F41.8 With hx of behaviors, but good since here.Quentin nue risperidon e 1.5 mg qhs, quetiapine 100 mg qhs, escitalopr am 20 mg qd, hydroxyzin e 25 mg BID, trazadone 50 mg qhs, melatonin 10 mg qhs, and lorazepam 0.5 mg po qd prn.Mood good today.Neelima tor mood.Consu lt psych prn Pain of knee region 1003 285161 M25.561 Not discussed today.Cont inue meds as above and lidocaine patch qd.PT/OT as above.Neelima tor Obstructiv e sleep apnea syndrome 82144004 G47.33 Currently without CPAP, needs f/u appt to get new one.Nursin g to reschedule . Recurrent falls 30382146 2 R29.6 As above. Bifascicular block 04996 003 I45[address]Work ing well per last hosp check.F/U with cardio as planned, on 02/26 at 1:30 for office visit and 2:20 for device check at [address] Thrombocyt openic disorder 908756864 D69.59 Have been running low for many years. I suspect due to EtOH, but much consider rivaroxaba n effect also.No change in tx unless plts drop to <50,000 or signs of bleeding. Intellectu al disability 745082642 F70 Able to make his own decisions. Provide supportive care.Monit or function. Asthma 799350018 J45.30 No current sxs.Contin ue Breo ellipta 100/25 mcg 1 puff qd and albuterol MDI 2 puffs q 4 hrs prn.Monito r resp status Chronic neck pain 492986 2014 107 M54.2 It seems he has different c/o on different days, but today he says he's had neck pain for awhile.Gomez l add Percocet 5/325 mg qhs at pt's request.OK as long as only one tab/day.Co ntinue other meds as above.Cons ider increasing gabapentin . 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 Migraine 15850635 G43.90 9 Sees neuro.No sxs since here.Quentin nue sumatripta n 50 mg BID prn.Monito r sxs. Frequent a ttender of emergency room 1074441912 90481 Z76.89 With multiple ED visits at various facilities .Only rarely with documentab le problem.Ne eds to make care plan with PCP and home health as outpt.Avoi d transfer to ED while here unless clearly acute problem. [id number] Ashley Irwin, [facility] [address] 02/22/2024 10:53:07 02/23/2024 10:15:01 Orthostatic hypotension 63575762 I95.1 BP has not been orthostati c since here.bp 148/82 todayDoing well with rehab.Cont inue PT/OT for strengthen ing, balance, gait training, safety and function.C ontinue fall precaution s.Monitor for safety.Mon itor orthostati c vitals daily doc in pcc and monitor sxs. Chest pain 36549986 R07. 89 Chronic and recurrent ACS ruled out numerous times.with notable history of tetrology of fallotwork ed up for chest pain in ED 02/20Conti nuegabapen tin 300 mg TID, APAP 650 mg TID and 650 mg q 4 hrs prn (NTE TD of 3000 mg/d).NTG SL prn chest pain, call 911 if he uses thisMonito r sxs. Bifascicular block 98387 003 I45.[address].Work ing well per last hosp check.F/U with cardio as planned, on 02/26 at 1:30 for office visit and 2:20 for device check at [address] Recurrent falls 86592901 2 R29.6 As above. Atrial fibrillation 4943 6004 I48.0 Rate in good control on sotalol 80 mg BID.Contin ueXarelto 20 mg qd for AC.Monitor HR and bleeding risk.F/U with cardio. Tetralogy of Fallot 8629 9006 Q21.3 Hx ofs/p repair and shunt placement. F/U with cardio as planned. Essential hypertension 30249966 I10 overall bp stable with some 140sdecent control off lisinopril , isosorbide and tamsulosin .Would hesitate to restart any anti-hyper tensives unless SBP consistent ly >150, due to hx of orthostasi s.Monitor BP, pulse and labs. Thrombocyt openic disorder 582977574 D69.59 Have been running low for many years. I suspect due to EtOH, but much consider rivaroxaba n effect also.No change in tx unless plts drop to <50,000 or signs of bleeding. Intellectu al disability 169018700 F70 Able to make his own decisions. Provide supportive care.Monit or function. Chronic neck pain 246625 9817 107 M54.2 It seems he has different c/o on different days, but today he says he's had neck pain for awhile.con tPercocet 5/325 mg qhs (added per md at pt's request.)C ontinue other meds as above.Cons ider increasing gabapentin if persists Mixed hyperlipidemia 267 551550 E78.2 Continue ezetimibe 10 mg qd.F/U as outpt. Benign pro static hyperplasia 044747293 N40.0 No current sxs.Tamsul osin on hold due to orthostati c hypotensio n, consider restarting .F/u with uro as planned Asthma 490678963 J45.30 No current sxs.Contin ue Breo ellipta 100/25 mcg 1 puff qd and albuterol MDI 2 puffs q 4 hrs prn.Monito r resp status Diabetes mellitus 012756 09 E11.9 Fingerstic ks checked twice fasting since here, both low.Hga1C was borderline at 6.9Continu emetformin 500 mg BIDMonitor fingerstic ks prn and adjust meds as outpt. Hypothyroidism 36547913 E03.8 TSH WNL.Contin uelevothyr oxine 75 mcg qdMonitor TSH yearly. Gastroesop hageal reflux disease without esophagitis 576825092 K21.9 No current sxs.Contin ueesomepra zole 20 mg qdMonitor GI sxs Obesity 897762716 E66.09 Continue to encourage healthy eating and physical activity.D ietician consult.Chris gonsales wts. Mixed anxi ety and depressive disorder 493129644 F41.8 With hx of behaviors, but good since here.Quentin nuerisperi done 1.5 mg qhs, quetiapine 100 mg qhs, escitalopr am 20 mg qd, hydroxyzin e 25 mg BID, trazadone 50 mg qhs, melatonin 10 mg qhs, and lorazepam 0.5 mg po qd prn.Monito r mood.Consu lt psych prn Pain of knee region 1003 397976 M25.561 Continue meds as above and lidocaine patch qd.PT/OT as above.Neelima tor Obstructiv e sleep apnea syndrome 75806924 G47.33 Currently without CPAP, needs f/u appt to get new one.Nursin g to reschedule . 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 Migraine [id number] G43.90 9 Sees neuro.No sxs since here.Quentin nuesumatri ptan 50 mg BID prn.Monito r sxs. Frequent a ttender of emergency room [id number] Z76.89 With multiple ED visits at various [...] Member ID Guarantor Name 07/25/2017 2 [place] [facility] Joaquín Teranrott [id number] [employer] [facility] 07/25/2017 1 [employer] - DOS PRIOR TO 2022 - DUAL ELIGIBLE (MEDICARE REPLACEMENT/AD VANTAGE - HMO) Joaquín Floyd [id number] [employer] [facility] 08/10/2017 2 [place] [facility] Joaquín Floyd [id number] [employer] [facility] 08/10/2017 1 [employer] - DOS PRIOR TO 2022 - DUAL ELIGIBLE (MEDICARE REPLACEMENT/AD VANTAGE - HMO) Joaquín Floyd [id number] [employer] [facility] 02/12/2024 2 [place] [facility] Joaquín Montague [id number] [employer] [facility] 02/12/2024 1 [employer] - DOS ON OR AFTER 2022 - [place]IC[place]AGE [place] ([place] REPLACEMENT/AD VANTAGE - PPO) Joaquín Montague [id number] [employer] [facility] 02/16/2024 2 [place] [facility] Joaquín Floyd [id number] [employer] [facility] 02/16/2024 1 [employer] - DOS ON OR AFTER 2022 - [place]ANT[place] - PPO) Joaquín Floyd [id number] [employer] [facility] 02/22/2024 2 [place] [facility] Joaquín Montague [id number] [employer] [facility] 02/22/2024 1 [employer] - DOS ON OR AFTER 2022 - [place] ([place]IC[place]AC[place]/AD VANTAGE - PPO) Joaquín Floyd [id number] [employer] [facility] Notes Date Note Type [...] can help with the discomfort. SHANNON CALIXTO [address], [address], [place], [address], [employer] 07/25/2017 16:00:05 08/10/2017 text/html 57 yo male [...] considering pursuing surgical repair following discharge. Razia diggs, [employer] 08/10/2017 15:11:11 02/12/2024 text/html Pt seen for an initial intake summary. Joaquín is a 64 yo male LTC resident seen at [facility] for Chest pain PMH:mental retardation, a. fib, AICD, tetralogy of fallot s/p repair/shunt, htn, hld, bph, ponce, COPD, TURP. Pt is a 64 yr old man who presented to [facility] with weakness and dizziness and right knee [...] to rehab he was later sent to [facility] for chest pain on 02/10 and discharged [...] of breath. MOLST: full code Ashley Irwin, BANDAR [address], [address], [place], [address], [employer] 02/12/2024 14:58:46 02/16/2024 text/html This is a 64 yo man who is here for rehab after an acute hospitalization for a syncopal episode.[facility] fter an episode which he [...] non-acute.Of note, he had been in the [facility] ED or admitted 14 times over the past 6 months, also some visits at [facility] and [facility]. With c/o of falls, syncope and CP. [...] 02/10 and was transferred back to the [facility] ED.W/U was essentially neg, except for sl [...] since 03/2023, and obesity. 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 Due to dizziness and syncopal [...] Of note, he had been in the [facility] ED or other ED s admitted and for CP 16 times over the past 6 months, also some visits at [facility] and [facility]. With c/o of falls, syncope and CP. Per last admission:Lisinopril, isosorbide as well as tamsulosin have been held in the hospital, he will be discharged without these, to a rehab. [facility] discharge, these could be reintroduced 1 after the other based on his symptoms/blood pressure. Ashley Irwin NP [address], [address], [place], [address], [facility] - [employer] 02/22/2024 11:20:05
--- OUTSIDE RECORDS SUMMARY | 2024-08-20 18:36 | XMS_ITS | Continuity of Care Document ---
Author Organization [facility] Address [address] [place] [phone] Phone Care Team Providers Care Home Care Consultant Name Role Phone Camryn Monroe MD Unavailable Unavailable Advance Directives Directive Yes / No Effective Date File Name No Information Encounters Encounter Description Practice Location Reason(s) For Visit Diagnoses Date Provider [facility], [address] [place] [address], [id number], [place] tel:[phone] No Information 2017 Fer Cowan. [address] [place] [address], [id number], [place]. tel:[phone] Family History Family Member Type Diagnosis Age At Onset No Information Payers Payer name Insurance type Covered green party ID Authoriza tion(s) No Information Social History Type Description Quantity Date Captured Comments Sex Male Smoking Status No Information Chief Complaint And Reason For Visit No Information History Of Present Illness Encounter Date Complaint History Of Prese nt Illness No Information Instructions Date Instruction Additional Infor mation No Information Assessments Type Assessment Date No Information
--- OUTSIDE RECORDS SUMMARY | 2024-08-20 18:36 | XMS_ITS | Clinical Summary ---
Author Organization [facility] Address [address] [place] [address] Phone Care Team Providers Care Body Art Technician Name Role Phone Amari Vyas DO Primary Care Provider [phone] Allergies Active Allergy Reactions Criticality Noted Date Comments Atorvastatin Hives,Rash Medium 10/01/2013 Medications albuterol HFA (PROAIR HFA ; PROVENTIL HFA ; VENTOLIN HFA) 90 mcg/actuation inhaler Inhale 1-2 puffs every 4-6 hours as needed for shortness of breath. 7 g 5 05/10/19 26 Active Active Problems No known active problems Encounters Date Type Department Care Team Description 08/20/2024 10:11 AM EDT - 08/20/2024 2:10 PM EDT [facility] [address] [place] [address] Aram Sun MD Chest pain, unspecified type (Primary Dx); Syncope and collapse Discharge Disposition: Home or Self Care 07/24/2024 6:13 AM EDT - 07/24/2024 9:42 AM EDT [facility] [address] [place] [address] Aram Sun MD Chest wall pain (Primary Dx) Discharge Disposition: Home or Self Care 07/17/2024 10:35 PM EDT - 07/18/2024 4:31 AM EDT Emergency [facility] Emergency [address] [place] [address] Non-cardiac chest pain (Primary Dx); Chronic right flank pain Discharge Disposition: Home or Self Care 07/07/2024 9:21 AM EDT - 07/07/2024 2:50 PM EDT [facility] [address] [place] [address] Britton Elaine MD Chest pain, unspecified type (Primary Dx) Discharge Disposition: Home or Self Care 06/23/2024 6:06 AM EDT - 06/23/2024 9:24 AM EDT [facility] [address] [place] [address] Rex Vargas MD Precordial chest pain (Primary Dx) Discharge Disposition: Home or Self Care from Last 3 Months Surgical History Surgery Date Site/Laterality Comments CARDIAC PACEMAKER PLACEMENT PROCEDURE:CARDIAC PACEMAKER PLACEMENT;COMMENT:[facility] TETRALOGY OF FALLOT REPAIR PROCEDURE:TETRALOGY OF FALLOT REPAIR Medical History Medical History Date Comments Tetralogy of Fallot DX:Tetralogy of Fallot Atrial fibrillation ([facility] V24, [facility] V28) DX:Atrial fibrillation (HCC) Hypertension DX:Hypertension Diabetes mellitus (CMS/HCC V24, CMS/HCC V28) DX:Diabetes mellitus (HCC) Hypercholesteremia DX:Hyperchole steremia Sleep apnea, obstructive DX:Slee p apnea, obstructive Seizures ([facility] V24, [facility] V28) 01/06/2015 DX:Seizures ([facility]) Depression Right bundle branch block Family History [...] Sign Reading Time Taken Comments Blood Pressure 116/65 08/20/2024 1:19 PM EDT Pulse 73 08/20/2024 1:19 PM EDT Temperature 36.7 ??C (98.1 ??F) 08/20/2024 1:19 PM ED T Respiratory Rate 11 08/20/2024 1:19 PM EDT Oxygen Saturation 97% 08/20/2024 1:19 PM EDT Inhaled Oxygen Concentration - - Weight 109 kg (240 lb) 08/20/2024 10:43 AM EDT Height 175.3 cm (5' 9 ) 08/20/2024 10:43 AM EDT Body Mass Index 35.44 08/20/2024 10:43 AM EDT Plan of Treatment Health Maintenance [...] 05/06/2020 Diabetes: Blood Sugar Control Test (HGBA1C) 02/04/2025 08/04/2024, 06/13/2024, 02/12/2024, Additional history exists Depression Screening 04/29/2025 04/29/2024 Diabetes: Annual GFR (Glomerular Filtration Rate) 08/20/2025 08/20/2024, 08/08/2024, 08/08/2024, Additional history exists Hypertension/CHF/CAD Annual BMP Blood Test 08/20/2025 08/20/2024, 08/08/2024, 08/08/2024, Additional history exists Cholesterol Screening (Lipid Panel) [...] Name Priority Date/Time Associated Diagnosis Comments ECG 12-LEAD STAT 08/20/2024 12:19 PM EDT TROPONIN I HIGH SENSITIVITY STAT 08/20/2024 12:[address] CERVICAL SPINE WO CONTRAST STAT 08/20/2024 11:[address] HEAD WO CONTRAST STAT 08/20/2024 1 1:50 AM EDT CBC WITH AUTO DIFFERENTIAL STAT 08/20/2024 10:36 AM EDT B-TYPE NATRIURETIC PEPTIDE STAT 08/20/2024 10:36 AM EDT MAGNESIUM STAT 08/20/2024 10:36 AM EDT LIPASE STAT 08/20/2024 10:36 AM EDT COMPREHENSIVE METABOLIC PANEL STAT 08/20/2024 10:36 AM EDT CBC AND DIFFERENTIAL STAT 08/20/2024 10:36 AM EDT TROPONIN I HIGH SENSITIVITY STAT 08/20/2024 10:36 AM EDT POCT GLUCOSE BLOOD Routine 08/20/2024 10 :29 AM EDT ECG 12-LEAD STAT 08/20/2024 10:18 AM EDT ECG ANNOTATED 07/25/2024 CT ABDOMEN PELVIS W [...] ECG 12-LEAD STAT 06/23/2024 3:57 AM EDT HEMOGLOBIN A1C Routine 02/12/2024 6:11 AM EST Hypothyroidism, unspecified Paroxysmal atrial fibrillation (CMS/HCC) from Last 3 Months or Most Recently Relevant to Health Maintenance Results * Troponin I high sensitivity (08/20/2024 12:12 PM EDT) Only the most recent of10 resultswithin the time period is included. High Sensitivity Troponin I 5 <=79 ng/L LAB CHEMISTRY METHOD 08/20/2024 12:[address] [facility] Blood Venous blood specimen / Unknown Venipuncture / Unknown 08/20/2024 12:12 PM EDT 08/20/2024 12:[address] [facility] - 08/20/2024 12:57 PM EDT High levels of biotin in samples may falsely decrease hsTroponin values. ??Use caution when interpreting hsTroponin results in patients taking biotin who exhibit renal impairment (eGFR <60) or in patients taking more than 20 mg/day of biotin. us Aram Sun MD LAB BLOOD ORDERABLES Final Res ult [facility] [address] [place] [address], * CT Cervical Spine wo Contrast (08/20/2024 11:50 AM EDT) Anatomical Region Laterality Modality Spine, C-spine Computed Tomogra phy 08/20/2024 12:1 1 PM EDT Impressions 08/20/2024 12:19 PM EDT No acute cervical spine fracture. -------- FINAL REPORT -------- Dictated By: JOURDAN FISH Dictated Date: 08/20/2024 12:11 ET Assigned Physician: JOURDAN FISH Reviewed and Electronically Signed By: JOURDAN FISH Signed Date: 08/20/2024 12:19 ET Workstation ID: [id number] Transcribed By: Self Edit Transcribed Date: 08/20/2024 12:11 ET Narrative 08/20/2024 12:19 PM EDT PROCEDURE: Cervical spine CT INDICATION: Pain TECHNIQUE: Noncontrast CT of the cervical spine with multiplanar reformats. The examination was performed utilizing dose reduction techniques. ??Total DLP 2097 COMPARISON: ??04/08/2024. FINDINGS: ?? No acute fracture or prevertebral swelling. Unchanged widening at the anterior C1-2 articulation which may be due to old trauma or degenerative change. ??Cervical alignment is similar compared to prior. Multilevel degenerative changes are seen throughout the cervical spine with uncovertebral spurring and facet arthropathy present. ??Bulky anterior osteophytes throughout the cervical spine are similar compared to prior. ??Degenerative fusion across several cervical facet joints is also unchanged. No pneumothorax at the lung apices. ??Pacemaker leads partially visualized. ??Paraspinal muscles are normal. Procedure Note Jourdan Fish MD - 08/20/2024 PROCEDURE: Cervical spine CT INDICATION: Pain TECHNIQUE: Noncontrast CT of the cervical spine with multiplanarreformats. The examination was performed utilizing dose reduction techniques. TotalDLP 2097 COMPARISON: 04/08/2024. FINDINGS: No acute fracture or prevertebral swelling. Unchanged widening at the anterior C1-2 articulation which may be due toold trauma or degenerative change. Cervical alignment is similar comparedto prior. Multilevel degenerative changes are seen throughout the cervical spinewith uncovertebral spurring and facet arthropathy present. Bulky anteriorosteophytes throughout the cervical spine are similar compared to prior.Degenerative fusion across several cervical facet joints is alsounchanged. No pneumothorax at the lung apices. Pacemaker leads partially visualized.Paraspinal muscles are normal. IMPRESSION: No acute cervical spine fracture. -------- FINAL REPORT -------- Dictated By: JOURDAN FISH Dictated Date: 08/20/2024 12:11 ET Assigned Physician: JOURDAN FISH Reviewed and Electronically Signed By: JOURDAN FISH Signed Date: 08/20/2024 12:19 ET Workstation ID: [id number] Transcribed By: Self Edit Transcribed Date: 08/20/2024 12:11 ET Aram Sun MD IMG CT PROCEDURES Final Result * CT Head wo Contrast (08/20/2024 11:50 AM EDT) Anatomical Region Laterality Modality Head and Neck Computed Tomogra phy 08/20/2024 12:3 7 PM EDT Impressions 08/20/2024 12:40 PM EDT No acute intracranial abnormality -------- FINAL REPORT -------- Dictated By: JOURDAN FISH Dictated Date: 08/20/2024 12:37 ET Assigned Physician: JOURDAN FISH Reviewed and Electronically Signed By: JOURDAN FISH Signed Date: 08/20/2024 12:40 ET Workstation ID: [id number] Transcribed By: Self Edit Transcribed Date: 08/20/2024 12:37 ET Narrative 08/20/2024 12:40 PM EDT PROCEDURE: HEAD CT INDICATION: Syncope TECHNIQUE: CT of the head without intravenous contrast. Multiplanar reformats. The examination was performed utilizing dose reduction techniques. Total DLP 2097 COMPARISON: ??04/08/2024 FINDINGS: ?? No acute territorial infarct, mass effect, or intracranial hemorrhage. Mild scattered periventricular and subcortical white matter hypodensities are most likely related to chronic small vessel ischemic change. 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 Ventricles are normal in size. ??No hydrocephalus. Sinuses are clear. ??Hypoplastic frontal sinuses and left mastoid air cells. ??Small fluid in the right mastoid air cells. No scalp hematoma or skull fracture. Procedure Note Jourdan Fish MD - 08/20/2024 PROCEDURE: HEAD CT INDICATION: Syncope TECHNIQUE: CT of the head without intravenous contrast. Multiplanarreformats. The examination was performed utilizing dose reductiontechniques. Total DLP 2097 COMPARISON: 04/08/2024 FINDINGS: No acute territorial infarct, mass effect, or intracranial hemorrhage. Mild scattered periventricular and subcortical white matter hypodensitiesare most likely related to chronic small vessel ischemic change.Hyperdensity in the left frontal lobe is similar compared to prior andmost likely a benign cavernous malformation. Ventricles are normal in size. No hydrocephalus. Sinuses are clear. Hypoplastic frontal sinuses and left mastoid aircells. Small fluid in the right mastoid air cells. No scalp hematoma or skull fracture. IMPRESSION: No acute intracranial abnormality -------- FINAL REPORT -------- Dictated By: JOURDAN FISH Dictated Date: 08/20/2024 12:37 ET Assigned Physician: JOURDAN FISH Reviewed and Electronically Signed By: JOURDAN FISH Signed Date: 08/20/2024 12:40 ET Workstation ID: [id number] Transcribed By: Self Edit Transcribed Date: 08/20/2024 12:37 ET Aram Sun MD IM CT PROCEDURES Final Result * (ABNORMAL) CBC auto differential (08/20/2024 10:36 AM EDT) Only the most recent of5 resultswithin the time period is included. WBC 5.7 4.8 - 10.8 K/mcL LAB HEMETOLOGY METHOD 08/20/2024 11:[address] [facility] RBC 3.90(L) 4.50 - 5.50 M/mcL LAB HEMETOLOGY METHOD 08/20/2024 11:[address] [facility] Hemoglobin 10.9(L) 13.5 - 17.5 g/dL LAB HEMETOLOGY METHOD 08/20/2024 11:14 AM [facility] Hematocrit 33.5(L) 42.0 - 54.0 % LAB HEMETOLOGY METHOD 08/20/2024 11:14 AM [facility] MCV 86.8 79.0 - 98.0 FL LAB HEMETOLOGY METHOD 08/20/2024 11:14 AM [facility] MCH 28.2 27.0 - 32.0 pcg LAB HEMETOLOGY METHOD 08/20/2024 11:14 AM [facility] MCHC 32.5 32.0 - 37.0 g/dL LAB HEMETOLOGY METHOD 08/20/2024 11:14 AM [facility] RDW 14.2 11.0 - 15.0 % LAB HEMETOLOGY METHOD 08/20/2024 11:14 AM [facility] Platelets 76(L) 130 - 400 K/mcL LAB HEMETOLOGY METHOD 08/20/2024 11:14 AM [facility] MPV 11.7(H) 7.0 - 11.0 FL LAB HEMETOLOGY METHOD 08/20/2024 11:14 AM [facility] NRBC 0.0 <1.0 % LAB HEMETOLOGY METHOD 08/20/2024 11:14 AM [facility] NRBC Absolute 0.00 <0.10 K/mcL LAB HEMETOLOGY METHOD 08/20/2024 11:14 AM [facility] Neutrophils Relative 66.1 % LAB HEMETOLOGY METHOD 08/20/2024 11:14 AM [facility] Lymphocytes Relative 16.3 % LAB HEMETOLOGY METHOD 08/20/2024 11:14 AM [facility] Monocytes Relative 10.3 % LAB HEMETOLOGY METHOD 08/20/2024 11:14 AM [facility] Eosinophils Relative 4.8 % LAB HEMETOLOGY METHOD 08/20/2024 11:14 AM [facility] Basophils Relative 1.1 % LAB HEMETOLOGY METHOD 08/20/2024 11:14 AM [facility] Immature Granulocytes Relative 1.4 % LAB HEMETOLOGY METHOD 08/20/2024 11:[address] [facility] Neutrophils Absolute 3.74 1.50 - 7.00 K/mcL LAB HEMETOLOGY METHOD 08/20/2024 11:[address] [facility] Lymphocytes Absolute 0.92(L) 1.00 - 5.00 K/mcL LAB HEMETOLOGY METHOD 08/20/2024 11:[address] [facility] Monocytes Absolute 0.58 0.20 - 1.00 K/[facility] LAB HEMETOLOGY METHOD 08/20/2024 11:[address] [facility] Eosinophils Absolute 0.27 0.00 - 0.50 K/[facility] LAB HEMETOLOGY METHOD 08/20/2024 11:[address] [facility] Basophils Absolute 0.06 0.00 - 0.20 K/mcL LAB HEMETOLOGY METHOD 08/20/2024 11:[address] [facility] Immature Granulocytes Absolute 0.08(H) 0.00 - 0.03 K/[facility] LAB HEMETOLOGY METHOD 08/20/2024 11:[address] [facility] Blood Venous blood specimen / Unknown Venipuncture / Unknown 08/20/2024 10:36 AM EDT 08/20/2024 10:51 AM EDT Aram Sun MD LAB BLOOD ORDERABLES Final Res ult [facility] [address] [place] [address], * B-type natriuretic peptide (08/20/2024 10:36 AM EDT) Only the most recent of4 resultswithin the time period is included. BNP 91 <=100 pcg/mL LAB CHEMISTRY METHOD 08/20/2024 11:[address] [facility] Blood Venous blood specimen / Unknown Venipuncture / Unknown 08/20/2024 10:36 AM EDT 08/20/2024 10:52 AM EDT us Aram Sun MD LAB BLOOD ORDERABLES Final Res ult Performing Organization Address City/[facility]/ZIP Co de Phone Number [facility] [address] [place] [address], [place] [phone] * Magnesium (08/20/2024 10:36 AM EDT) Only the most recent of5 resultswithin the time period is included. Magnesium 1.9 1.9 - 2.6 mg/dL LAB CHEMISTRY METHOD 08/20/2024 11:[address] [facility] Blood Venous blood specimen / Unknown Venipuncture / Unknown 08/20/2024 10:36 AM EDT 08/20/2024 10:51 AM EDT us Aram Sun MD LAB BLOOD ORDERABLES Final Res ult Performing Organization Address [facility] Phone Number [facility] [address] [place] [address], [place] [phone] * Lipase (08/20/2024 10:36 AM EDT) Only the most recent of5 resultswithin the time period is included. Lipase 29 13 - 75 unit/L LAB CHEMISTRY METHOD 08/20/2024 11:[address] [facility] Blood Venous blood specimen / Unknown Venipuncture / Unknown 08/20/2024 10:36 AM EDT 08/20/2024 10:51 AM EDT us Aram Sun MD LAB BLOOD ORDERABLES Final Res ult Performing Organization Address City/[facility]/ZIP Co de Phone Number [facility] [address] [place] [address], [place] [phone] * (ABNORMAL) Comprehensive metabolic panel (08/20/2024 10:36 AM EDT) Only the most recent of5 resultswithin the time period is included. Sodium 140 133 - 145 mmol/L LAB CHEMISTRY METHOD 08/20/2024 11:29 AM [facility] Potassium 4.3 3.5 - 5.5 mmol/L LAB CHEMISTRY METHOD 08/20/2024 11:29 AM [facility] Chloride 110 96 - 110 mmol/L LAB CHEMISTRY METHOD 08/20/2024 11:29 AM [facility] CO2 27 21 - 32 mmol/L LAB CHEMISTRY METHOD 08/20/2024 11:29 AM [facility] Anion Gap 3 3 - 11 LAB CHEMISTRY METHOD 08/20/2024 11:29 AM [facility] Glucose 117(H) 70 - 100 mg/dL LAB CHEMISTRY METHOD 08/20/2024 11:29 AM [facility] BUN 15 5 - 25 mg/dL LAB CHEMISTRY METHOD 08/20/2024 11:29 AM [facility] Creatinine 1.13 0.70 - 1.30 mg/dL LAB CHEMISTRY METHOD 08/20/2024 11:29 AM [facility] eGFR 73 >=60 mL/min/1. 73m2 LAB CHEMISTRY METHOD 08/20/2024 11:29 AM [facility] Comment:Calculation based on the Chronic Kidney Disease Epidemiology Collaboration (CKD-EPI) equation refit without adjustment for race. BUN/Creatinine Ratio 13.3 LAB CHEMISTRY METHOD 08/20/2024 11:29 AM [facility] Calcium 7.7(L) 8.5 - 10.5 mg/dL LAB CHEMISTRY METHOD 08/20/2024 11:29 AM [facility] AST (SGOT) 13 10 - 42 unit/L LAB CHEMISTRY METHOD 08/20/2024 11:29 AM [facility] ALT (SGPT) 21 10 - 60 unit/L LAB CHEMISTRY METHOD 08/20/2024 11:[address] [facility] Alkaline Phosphatase 68 42 - 121 unit/L LAB CHEMISTRY METHOD 08/20/2024 11:[address] [facility] Total Protein 6.2 6.0 - 8.0 g/dL LAB CHEMISTRY METHOD 08/20/2024 11:[address] [facility] Albumin 3.4 3.2 - 5.0 g/dL LAB CHEMISTRY METHOD 08/20/2024 11:[address] [facility] Total Bilirubin 0.5 0.0 - 1.4 mg/dL LAB CHEMISTRY METHOD 08/20/2024 11:[address] [facility] Blood Venous blood specimen / Unknown Venipuncture / Unknown 08/20/2024 10:36 AM EDT 08/20/2024 10:51 AM EDT us Aram Sun MD LAB BLOOD ORDERABLES Final Res ult [facility] [address] [place] [address], [place] [phone] * (ABNORMAL) POCT Glucose, blood (08/20/2024 10:29 AM EDT) Glucose POCT 120(H) 70 - 100 mg/dL 08/20/2024 10:[address] [facility] Blood Capillary blood specimen / Unknown 08/20/2024 10:29 AM EDT 08/20/2024 10:31 AM EDT us Generic Provider Poct LAB POINT OF CARE TEST DOCKED DEVICE UNSOLICITED RESULTS Final Result Performing Organization Address City/[facility]/ZIP Co de Phone Number [facility] [address] [place] [address], [place] [phone] * ECG-Annotated (07/25/2024) Only the most recent of4 resultswithin the time period is included. us Provider Onbase MD ECG ORDERABLES Final Result * CT Abdomen Pelvis w Contrast (07/24/2024 8:39 AM EDT) Only the most recent of2 resultswithin the time period is included. Anatomical Region Laterality Modality Body Computed Tomogra phy 07/24/2024 8:44 AM EDT Impressions 07/24/2024 8:53 AM EDT Impression: No acute abdominal process identified. Telerad HEAVENLY ([id number]) -------- FINAL REPORT -------- Dictated By: Bruna Flores Dictated Date: 07/24/2024 08:44 ET Assigned Physician: Bruna Flores Reviewed and Electronically Signed By: Bruna Flores Signed Date: 07/24/2024 08:53 ET Workstation ID: [id number] Transcribed By: Self Edit Transcribed Date: 07/24/2024 08:44 ET Narrative 07/24/2024 8:53 AM EDT History: Right flank pain radiating to the right groin. Personal history of tetralogy of Fallot status post repair years ago. Comparison: 07/18/24, 12/11/23 Technique: Helical volumetric imaging of the abdomen and pelvis was performed during the uneventful intravenous administration of 90 cc Isovue-370. DLP: 1364.09 mGy/cm [id number] VCT Iterative reconstruction technique Findings: The liver [...] administration of 90 ccIsovue-370. DLP: 1364.09 mGy/cm 3Scan VCT Iterative reconstruction technique Findings: The liver [...] IMPRESSION: Impression: No acute abdominal process identified. Telerad PA ([id number]) -------- FINAL REPORT -------- Dictated By: Bruna Flores Dictated Date: 07/24/2024 08:44 ET Assigned Physician: Bruna Flores Reviewed and Electronically Signed By: Bruna Flores Signed Date: 07/24/2024 08:53 ET Workstation ID: [id number] Transcribed By: Self Edit Transcribed Date: 07/24/2024 08:44 ET Aram Sun MD IM CT PROCEDURES Final Result * Urinalysis with reflex microscopic (07/24/2024 8:01 AM EDT) Specific [place] Urine 1.024 1.003 - 1.030 LAB URINALYSIS - AUTOMATED METHOD 07/24/2024 8:40 AM [facility] pH, Urine 5.5 5.0 - 8.0 pH LAB URINALYSIS - AUTOMATED METHOD 07/24/2024 8:40 AM [facility] Leukocytes, Urine Negative Negative LAB URINALYSIS - AUTOMATED METHOD 07/24/2024 8:40 AM [facility] Nitrite, Urine Negative Negative LAB URINALYSIS - AUTOMATED METHOD 07/24/2024 8:40 AM [facility] Protein, Urine Negative <=Trace mg/dL LAB URINALYSIS - AUTOMATED METHOD 07/24/2024 8:40 AM [facility] Glucose, Urine Negative Negative mg/dL LAB URINALYSIS - AUTOMATED METHOD 07/24/2024 8:40 AM [facility] Ketones, Urine Negative Negative mg/dL LAB URINALYSIS - AUTOMATED METHOD 07/24/2024 8:40 AM [facility] Urobilinogen, Urine 0.2 0.2 - 1.0 mg/dL LAB URINALYSIS - AUTOMATED METHOD 07/24/2024 8:40 AM [facility] Bilirubin, Urine Negative Negative LAB URINALYSIS - AUTOMATED METHOD 07/24/2024 8:[address] [facility] Blood, Urine Negative Negative LAB URINALYSIS - AUTOMATED METHOD 07/24/2024 8:[address] [facility] Urine Urine specimen obtained by clean catch procedure / Unknown Non-blood Collection / Unknown 07/24/2024 8:01 AM EDT 07/24/2024 8:33 AM EDT us Rex Vargas MD LAB URINE ORDERABLES Raegan hernandez Result [facility] [address] [place] [address], [place] [phone] * XR Chest 2 Views (07/24/2024 2:56 AM EDT) Only the most recent of4 [...] Signed Date: 07/24/2024 08:09 ET Workstation ID: [id number] Transcribed By: Self Edit Transcribed Date: 07/24/2024 [...] Signed Date: 07/24/2024 08:09 ET Workstation ID: [id number] Transcribed By: Self Edit Transcribed Date: 07/24/2024 08:08 ET us Rex Vargas MD IMG XR PROCEDURES Final R esult * ECG 12 lead (07/24/2024 2:13 AM EDT) Only the most recent of4 resultswithin the time period is included. Ventricular Rate ECG 82 BPM GEMUSE Atrial Rate 82 BPM GEMUSE P-R Interval 224 ms GEMUSE QRS Duration 180 ms GEMUSE Q-T Interval 436 ms GEMUSE QTc 509 ms GEMUSE P Wave [place] 63 degrees GEMUSE R [place] 103 degrees GEMUSE T [place] 46 degrees GEMUSE ECG Interpretation Sinus rhythm [...] and culture (07/18/2024 2:35 AM EDT) Pathologist [facility] Specific [place] Urine 1.015 1.003 - 1.030 LAB URINALYSIS - AUTOMATED METHOD 07/18/2024 3:12 AM [facility] pH, Urine 6.0 5.0 - 8.0 pH LAB URINALYSIS - AUTOMATED METHOD 07/18/2024 3:12 AM [facility] Leukocytes, Urine Negative Negative LAB URINALYSIS - AUTOMATED METHOD 07/18/2024 3:12 AM [facility] Nitrite, Urine Negative Negative LAB URINALYSIS - AUTOMATED METHOD 07/18/2024 3:12 AM [facility] Protein, Urine Negative <=Trace mg/dL LAB URINALYSIS - AUTOMATED METHOD 07/18/2024 3:12 AM [facility] Glucose, Urine Negative Negative mg/dL LAB URINALYSIS - AUTOMATED METHOD 07/18/2024 3:12 AM [facility] Ketones, Urine Negative Negative mg/dL LAB URINALYSIS - AUTOMATED METHOD 07/18/2024 3:12 AM [facility] Urobilinogen, Urine 0.2 0.2 - 1.0 mg/dL LAB URINALYSIS - AUTOMATED METHOD 07/18/2024 3:12 AM [facility] Bilirubin, Urine Negative Negative LAB URINALYSIS - AUTOMATED METHOD 07/18/2024 3:12 AM [facility] Blood, Urine Negative Negative LAB URINALYSIS - AUTOMATED METHOD 07/18/2024 3:12 AM [facility] Urine Urine specimen obtained by clean catch procedure / Unknown Non-blood Collection / Unknown 07/18/2024 2:35 AM EDT 07/18/2024 2:54 AM EDT us Lewis BURDICK LAB URINE ORDERABLES Final Resul t [facility] [address] [place] [address], [place] [phone] * Warner urine culture tube (07/18/2024 2:35 AM EDT) [facility] Extra Tube Hold for add-ons. 07/18/2024 4:[address] [facility] Comment:Auto resulted. Urine Urine specimen obtained by clean catch procedure / Unknown Non-blood Collection / Unknown 07/18/2024 2:35 AM EDT 07/18/2024 2:54 AM EDT Lewis BURDICK LAB URINE ORDERABLES Final Resul t Performing Organization Address City/[facility] Co de Phone Number [facility] [address] [place] [address], [place] [phone] * (ABNORMAL) Hemoglobin A1c (02/12/2024 6:11 AM EST) [facility] Hemoglobin A1C 6.9(H) <6.5 % LAB CHEMISTRY METHOD 02/12/2024 2:[address] [facility] Mean Bld Glu Estim. 151 mg/dL LAB CHEMISTRY METHOD 02/12/2024 2:[address] [facility] Blood Venous blood specimen / Unknown Venipuncture / Unknown 02/12/2024 6:11 AM EST 02/12/2024 9:15 AM EST us Erasto Henry MD LAB BLOOD ORDERABLES Final Resul t [facility] [address] [place] [address], [place] [phone] from Last 3 Months or Most Recently Relevant to Health Maintenance Insurance [facility] MEDICARE Member Subscriber Plan / Payer (Ef fective 2013-Present) Name:WASHINGTON SARABIA Relation to Subscriber:Self Name:Washington Sarabia Payer ID:[id number] Group ID:[id number] Type:Not on file Address: [place] [address] [address] [phone] Care Teams Body Art Technician Relationship Specialty Start Date End Date Amari Vyas DO [address] [place] [phone] PCP - General Internal Medicine 11/11/20
--- OUTSIDE RECORDS SUMMARY | 2024-08-20 18:36 | XMS_ITS | Referral Summary ---
Author Organization [facility] Address [address] [place] [address] Care Team Providers Care Utilities Estimator And Drafter Name Role Phone Patient, Has No Pcp Or Ref Primary Care Provider Unavailable Encounters Date Type Department Care Team Description 07/11/2024 9:51 PM EDT - 07/12/2024 2:59 AM EDT Emergency [facility] Emergency Department [address] [place] [id number] Grant Cox MD Chest pain, unspecified type [...] presented to the emergency room at [facility]. He was discharged from the emergency room, later that same night he started noticing chest pressure radiating to his left ribs around 1 AM last night. He was supposedly on his way to [facility] when his chest pressure began. He [...] global hypokinesis, dilated RV, mild AR, mild TX and moderate TR. He has also been [...] global hypokinesis, dilated RV, mild AR, mild TX and moderate TR. He has also been [...] of 45%. Follows with Dr. Nix at [place]. etiology of HF was Non-ischemic cardiomyopathy, s/p [...] [facility] AICD placement 05/2016. His primary head end desizing machine operator is Dr. Tobin, and takes Toprol Xl [...] (08/19/2019): Added automatically from request for surgery [id number] Assessment & Plan (03/04/2023 4:14 PM EST): Patient complaining of left sided chest pain which is at least sometimes reproducible. Patient has had extensive cardiac workup in the past at [facility], and [facility] which has all been negative. Coronary CT has been -ve, Nuclear stress test was also -ve for any ischemic changes. Patient did have 12 beats of Vtach which was noted on tele but was not seen on ICD interrogration at [place]. Echo was done at [facility] in February which was normal as well. [...] tomorrow Arrange f/u soon with his primary head end desizing machine operator Non-cardiac chest pain 07/26/2019 Assessment & Plan [...] no evidence of ischemia although apical anterior SC cannot be excluded due to known right [...] on T waves. Patient states that his Timber Inspector had discussed ablation with him in the [...] of Fallot, status postrepair (remote). Follows at [facility] and [facility] for congenital heart disease. Assessment [...] & Plan (03/04/2023 4:20 PM EST): C/W ELEMENTARY READING TUTOR dose of levothyroxine 75mg daily. Assessment & [...] heparin drip if cardiac cath is warranted [id number] Stroke Risk (5-year stroke rate based on [...] history of paroxysmal AF, not on anticoagulation ([id number] of 1). He currently takes Toprol XL [...] recently. PT/OT recommends short term rehab. Plan: -supervisor special services recs for placement -Fall precautions Immunizations Immunization [...] Not on file Procedures * Due to [place] state law, this organization might not be sharing negative HIV tests. Procedure Name Priority Date/Time Associated Diagnosis Comments XR CHEST 2 VW STAT 07/11/2024 11:48 PM EDT TROPONIN T HIGH SENSITIVITY STAT 07/11/2024 10:59 PM EDT ROMAON TOP, URN Routine 07/11/2024 10:29 PM EDT [...] to Health Maintenance Results * Due to [place] state law, this organization might not be [...] obtain the completed interpretation. ? Workstation ID: [id number] Narrative 07/12/2024 1:02 AM EDT EXAMINATION: XR [...] No pneumothorax is seen. Resulting Agency Comment [id number] Procedure Note Sean Arango MD - 07/12/2024 [...] possible to obtain thecompleted interpretation. Workstation ID: [id number] us Grant Cox MD IMG XR PROCEDURES Final Res ult * Repeat Troponin #2 (07/11/2024 10:59 PM EDT) Only the most recent of3 resultswithin the time period is included. Troponin T High Sensitivity 9 <=21 ng/L 07/11/2024 11:42 PM EDT [facility] [employer] [facility] Comment: [id number] level of 52 ng/L or higher at [...] be evaluated in line with the 4th What Cheer Definition of AMI. Troponin baseline and serial [...] MD LAB BLOOD ORDERABLES Final Result [facility] [employer] [facility] [address] [place] [address], [place] * Romano Top, Urine (07/11/2024 10:29 PM EDT) Extra Tube Hold for add-ons. 07/12/2024 3:05 AM EDT [facility] [employer] [facility] Comment:Auto resulted. Urine Urine specimen collection, clean catch / Unknown Non-Blood Collection / Unknown 07/11/2024 10:29 PM EDT 07/11/2024 10:33 PM EDT us Grant Cox MD LAB URINE ORDERABLES Final Result [facility] [address] [place] [address], * Urinalysis W/Reflex to Microscopic & Culture (07/11/2024 10:29 PM EDT) Color, Urine Light Yellow Colorless, Light Yellow, Yellow, Dark Yellow 07/11/2024 10:42 PM EDT [employer] [facility] Clarity, Urine Clear Clear 07/11/2024 10:42 PM EDT [employer] [facility] Specific [place], Urine 1.013 <1.030 07/11/2024 10:42 PM EDT [employer] [facility] pH, Urine 6.0 4.6 - 8.0 07/11/2024 10:42 PM EDT [employer] [facility] Protein, Urine Negative Negative 07/11/2024 10:42 PM EDT [employer] [facility] Glucose, Urine Normal Normal 07/11/2024 10:42 PM EDT [employer] [facility] Ketones, Urine Negative Negative 07/11/2024 10:42 PM EDT [employer] [facility] Bilirubin, Urine Negative Negative 07/11/2024 10:42 PM EDT [employer] [facility] Blood, Urine Negative Negative 07/11/2024 10:42 PM EDT [employer] [facility] Nitrite, Urine Negative Negative 07/11/2024 10:42 PM EDT [employer] [facility] Urobilinogen, Urine Normal Normal 07/11/2024 10:42 PM EDT [employer] [facility] Leukocyte Esterase, Urine Negative Negative 07/11/2024 10:42 PM EDT [employer] [facility] Urine Urine specimen collection, clean catch / Unknown Non-Blood Collection / Unknown 07/11/2024 10:29 PM EDT 07/11/2024 10:33 PM EDT Grant Cox MD LAB URINE ORDERABLES Final Result Performing Organization Address City/[facility]/ZIP Co de Phone Number [employer] [facility] [address] [place] [address], * Lipase (07/11/2024 9:13 PM EDT) Pathologist [facility] Lipase 32 13 - 60 U/L 07/11/2024 10:54 PM EDT [employer] [facility] Blood Structure of peripheral vein / Unknown Venipuncture / Unknown 07/11/2024 9:13 PM EDT 07/11/2024 9:23 PM EDT Grant Cox MD LAB BLOOD ORDERABLES Final Result Performing Organization Address [facility] Co de Phone Number [employer] [facility] [address] [place] [address], [place] * Hepatic Function Panel (07/11/2024 9:13 PM EDT) Pathologist [facility] Total Protein 6.2 6.0 - 8.0 g/dL 07/11/2024 10:54 PM EDT [facility] [employer] [facility] Albumin 3.9 3.5 - 5.2 g/dL 07/11/2024 10:54 PM EDT [employer] [facility] Globulin, Total 2.3 2.1 - 4.2 g/dL 07/11/2024 10:54 PM EDT [employer] [facility] Bilirubin, Total 0.4 0.2 - 1.2 mg/dL 07/11/2024 10:54 PM EDT [employer] [facility] Bilirubin, Direct 0.2 <=0.4 mg/dL 07/11/2024 10:54 PM EDT [employer] [facility] Alkaline Phosphatase 69 35 - 129 U/L 07/11/2024 10:54 PM EDT [employer] [facility] AST 17 10 - 40 U/L 07/11/2024 10:54 PM EDT [employer] [facility] ALT 17 10 - 40 U/L 07/11/2024 10:54 PM EDT [facility] LAB[facility] Bilirubin, Indirect 0.20 <=0.70 mg/dL 07/11/2024 10:54 PM EDT [facility] A/G Ratio 1.7 1.5 - 3.0 07/11/2024 10:54 PM EDT [facility] Blood Structure of peripheral vein / Unknown Venipuncture / Unknown 07/11/2024 9:13 PM EDT 07/11/2024 9:23 PM EDT us Grant Cox MD LAB BLOOD ORDERABLES Final Result [facility] LAB[facility] [address] [place] [address], [place] * ECG 12 lead (07/11/2024 3:18 PM EDT) Only the most recent of2 resultswithin the time period is included. Ventricular Rate EKG 75 BPM MUSE EKG Atrial Rate 75 BPM MUSE EKG TX Interval 200 ms MUSE EKG QRS Interval 168 ms MUSE EKG QT Interval 450 ms MUSE EKG QTC Interval 502 ms MUSE EKG P [place] 64 degrees MUSE EKG R [place] 109 degrees MUSE EKG T Wave [place] 57 degrees MUSE EKG 07/11/2024 3:18 PM [...] - 10.8 10*3/uL 07/11/2024 2:53 PM EDT [facility] RBC 4.03(L) 4.20 - 5.80 10*6/uL 07/11/2024 2:53 PM EDT [facility] Hemoglobin 11.0(L) 13.2 - 17.1 g/dL 07/11/2024 2:53 PM EDT [facility] Hematocrit 34.5(L) 38.5 - 50.0 % 07/11/2024 2:53 PM EDT [facility] MCV 85.6 80.0 - 100.0 fL 07/11/2024 2:53 PM EDT [facility] MCH 27.3 27.0 - 33.0 pg 07/11/2024 2:53 PM EDT [facility] MCHC 31.9(L) 32.0 - 36.0 g/dL 07/11/2024 2:53 PM EDT [facility] RDW 13.6 11.0 - 15.0 % 07/11/2024 2:53 PM EDT [facility] Platelets 81(L) 140 - 400 10*3/uL 07/11/2024 2:53 PM EDT [facility] MPV 11.7 7.5 - 12.5 fL 07/11/2024 2:53 PM EDT [facility] Neutrophil % 64.9 % 07/11/2024 2:53 PM EDT [facility] Immature Grans % 2.3(H) 0.0 - 0.9 % 07/11/2024 2:53 PM EDT [facility] Lymphocyte % 18.8 % 07/11/2024 2:53 PM EDT [facility] Monocyte % 9.2 % 07/11/2024 2:53 PM EDT [employer] [facility] Eosinophil % 3.7 % 07/11/2024 2:53 PM EDT [facility] [employer] [facility] Basophil % 1.1 % 07/11/2024 2:53 PM EDT [facility] [employer] [facility] Neutrophil # 4.87 1.50 - 7.80 10*3/uL 07/11/2024 2:53 PM EDT [facility] [employer] [facility] Immature Grans # 0.17(H) <=0.03 10*3/uL 07/11/2024 2:53 PM EDT [facility] [employer] [facility] Lymphocyte # 1.40 0.85 - 3.90 10*3/uL 07/11/2024 2:53 PM EDT [facility] [employer] [facility] Monocyte # 0.70 0.20 - 0.95 10*3/uL 07/11/2024 2:53 PM EDT [facility] [facility] [employer] [facility] Eosinophil # 0.30 0.02 - 0.50 10*3/uL 07/11/2024 2:53 PM EDT [facility] [facility] [employer] [facility] Basophil # 0.10 0.00 - 0.20 10*3/uL 07/11/2024 2:53 PM EDT [employer] [facility] nRBC % 0.0 /100 WBCs 07/11/2024 2:53 PM EDT [employer] [facility] nRBC # <0.01 <0.01 10*3/uL 07/11/2024 2:53 PM EDT [employer] [facility] Blood Structure of peripheral vein / Unknown Venipuncture / Unknown 07/11/2024 2:30 PM EDT 07/11/2024 2:47 PM EDT us Grant Cox MD LAB BLOOD ORDERABLES Final Result [facility] [address] [place] [address], [place] * (ABNORMAL) Basic Metabolic Panel (07/11/2024 2:30 PM EDT) NA 140 135 - 145 mmol/L 07/11/2024 3:20 PM EDT [facility] [employer] [facility] K 4.1 3.5 - 5.3 mmol/L 07/11/2024 3:20 PM EDT [facility]Rec[facility] [employer] [facility] Cl 105 98 - 107 mmol/L 07/11/2024 3:20 PM EDT [facility] [employer] [facility] CO2 23 22 - 32 mmol/L 07/11/2024 3:20 PM EDT [facility]ec[facility] [employer] [facility] BUN 16 7 - 23 mg/dL 07/11/2024 3:20 PM EDT [facility]ENTER[facility] [employer] [facility] Creatinine 1.25 0.60 - 1.30 mg/dL 07/11/2024 3:20 PM EDT [facility]ENTERRec[facility] [employer] [facility] Glucose 156(H) 65 - 99 mg/dL 07/11/2024 3:20 PM EDT [facility]NCRecycled [facility] SolutionsW[facility] [employer] [facility] Calcium 8.0(L) 8.6 - 10.5 mg/dL 07/11/2024 3:20 PM EDT [facility] [employer] [facility] Anion Gap 12 5 - 15 07/11/2024 3:20 PM EDT [facility]ENTERRecycl[facility] SolutionsW[facility] [employer] [facility] eGFR 65 >=60 mL/min/1. 73m2 07/11/2024 3:20 PM EDT [facility]ENTERRecycl[facility] SolutionsGR[facility] [employer] [facility] Comment:The estimated glomer ular [...] BLOOD ORDERABLES Final Result Performing Organization Address City/[facility]/ZIP Co de Phone Number [facility] [address] [place] [address], [place] * HEART & VASCULAR - SCANNED (07/11/2024) Anatomical Region Laterality Modality Other us On[employer] Scan Diane SCANNED PROCEDURES Final Resu lt * (ABNORMAL) Hemoglobin A1c (10/03/2022 8:30 AM EDT) Hemoglobin A1C 6.7(H) <5.7 % of total Hgb 10/03/2022 4:36 PM EDT [employer] Comment: For someone without known diabetes, a [...] (MG/DL) 146 mg/dL 10/03/2022 4:36 PM EDT [employer] eAG (MMOL/L) 8.1 mmol/L 10/03/2022 4:36 PM EDT [employer] Blood Structure of peripheral vein / Unknown Venipuncture / Unknown 10/03/2022 8:30 AM EDT 10/03/2022 8:36 AM EDT Narrative GEOVANNA MAGANA - 10/03/2022 4:36 PM EDT [facility] Received Date:[id number] us Dank Bob MD LAB BLOOD ORDERABLES Final Res ult GEOVANNA MAGANA [address], [address] [place] [address], [employer] [facility] [address], [place] [address], * Hepatitis C Antibody w/Reflex to HCV RNA, Quantitative PCR (08/27/2019 2:07 PM EDT) Hepatitis C Antibody NON-REACT GALO NON-REACT GALO 08/28/2019 1:42 AM EDT [employer] [facility] Signal To Cut-Off 0.08 <1.00 08/28/2019 1:42 AM EDT [employer] [facility] Comment: HCV antibody was non-reactive. There is no laboratory evidence of HCV infection. In most cases, no further action is required. However, if recent HCV exposure is suspected, a test for HCV RNA (test code 01905) is suggested. For additional information please refer to http://education.[employer]/faq/SON82e3 (This link is being provided for informational/ educational purposes only.) Blood Structure of peripheral vein / Unknown Venipuncture / Unknown 08/27/2019 2:07 PM EDT 08/27/2019 2:13 PM EDT Narrative GEOVANNA MAGANA - 08/28/2019 1:42 AM EDT [facility] Received Date: us Jomar Leung MD LAB BLOOD ORDERABLES Final Resul t GEOVANNA MAGANA [address] [facility] [address] [facility], [place] [address], [employer] [facility] [address], [place] [address], from Last 3 Months or Most Recently Relevant to Health Maintenance Insurance [facility] Advance Directives Documents on File Type Date Recorded Patient Ultrasonic Tester Expl anation Health Care Proxy 10/15/2019 11:08 [...] Browning Sister Health Care Agent Care Teams Utilities Estimator And Drafter Relationship Specialty Start Date End Date Patient, Has No Pcp Or Ref DO NOT EDIT THIS RECORD VIA PROVIDER ON THE FLY PCP - General Door To Door Selling Distributor 07/11/24
--- OUTSIDE RECORDS SUMMARY | 2024-08-20 18:36 | XMS_ITS | Encounter Summary ---
Author Organization [employer] Address [address] [facility] 7 [place] [address] Care Team Providers Care Annealing Furnace Operator Name Role Phone Lauren Whittaker MD Primary Care Pro vider Reason for Visit * Reason Comments Pre-visit Planning SDOH unable to reach LVM Encounter Details Date Type Department Care Team ([facility] st Contact Info) Description 08/15/2024 Patient Outreach [facility] [address] [place] [address] Lauren Whittaker MD [address] [place] [address] Pre-visit Planning (SDOH unable to reach LVM) Social History Tobacco Use Types Packs/Day Years [...] AM EDT documented as of this encounter Progress Notes * Afsaneh Rodriguez - 08/15/2024 3:52 PM EDT LIANNE Butcher placed outbound call to patient to complete pre-visit planning. No answer at this time. Patient name and were not confirmed. CC left voicemail requesting return call. Direct contactinformation provided. documented in this encounter Plan of Treatment Upcoming Encounters Date Type Department Care Team (Late st Contact Info) Description 08/22/2024 2:15 PM EDT Office Visit [facility] [address] [place] [phone] Lauren Whittaker MD [address] [place], [place] [phone] documented as of this encounter Visit Diagnoses Not on filedocumented in this encounter Additional Health Concerns Assessment Noted Time PHQ-9 Depression Total Score: 12 025 12:41 PM EST documented as of this encounter Care Teams Annealing Furnace Operator Relationship Specialty Start Date End Date Lauren Whittaker MD [address] [place] [id number] PCP - General Internal Medicine 11/15/23 [facility] 03/08/24 documented as of this encounter
--- OUTSIDE RECORDS SUMMARY | 2024-08-20 18:36 | XMS_ITS | Encounter Summary ---
Author Organization [facility] Address [address] [place] [address] Care Team Providers Care Pharmacy Account Director Name Role Phone DavionmynorattilaAmari virk Primary Care Provider [phone] Encounter Details Date Type Department Care Team (Late st Contact Info) Description 02/12/2024 Lab Requisition [facility] - Main Lab 299 [facility] [place] [phone] Erasto Henry MD [address] [place] [address] [address], [phone] Hypothyroidism, unspecified; Paroxysmal atrial fibrillation (CMS/HCC [...] LAB CHEMISTRY METHOD 02/12/2024 2:17 PM EST [facility] Mean Bld Glu Estim. 151 mg/dL LAB CHEMISTRY METHOD 02/12/2024 2:17 PM EST [facility] Blood Venous blood specimen / Unknown Venipuncture / Unknown 02/12/2024 6:11 AM EST 02/12/2024 9:15 AM EST us Erasto Henry MD LAB BLOOD ORDERABLES Final Resul t Performing Organization Address City/[facility]/ZIP Co de Phone Number [facility] [address] [place] [address], * (ABNORMAL) Thyroid stimulating hormone (02/12/2024 6:11 AM EST) TSH 4.56(H) 0.40 - 4.00 mcIU/mL LAB CHEMISTRY METHOD 02/12/2024 11:52 AM EST [facility] Blood Venous blood specimen / Unknown Venipuncture / Unknown 02/12/2024 6:11 AM EST 02/12/2024 9:15 AM EST us Erasto Henry MD LAB BLOOD ORDERABLES Final Resul t [facility] [address] [place] [address], [place] [phone] * (ABNORMAL) Comprehensive metabolic panel (02/12/2024 6:11 AM EST) Sodium 141 133 - 145 mmol/L LAB CHEMISTRY METHOD 02/12/2024 11:07 AM [facility] Potassium 3.7 3.5 - 5.5 mmol/L LAB CHEMISTRY METHOD 02/12/2024 11:07 AM [facility] Chloride 107 96 - 110 mmol/L LAB CHEMISTRY METHOD 02/12/2024 11:07 AM [facility] CO2 25 21 - 32 mmol/L LAB CHEMISTRY METHOD 02/12/2024 11:07 AM [facility] Anion Gap 9 3 - 11 LAB CHEMISTRY METHOD 02/12/2024 11:07 AM [facility] Glucose 99 70 - 100 mg/dL LAB CHEMISTRY METHOD 02/12/2024 11:07 AM [facility] BUN 17 5 - 25 mg/dL LAB CHEMISTRY METHOD 02/12/2024 11:07 AM [facility] Creatinine 1.20 0.70 - 1.30 mg/dL LAB CHEMISTRY METHOD 02/12/2024 11:07 AM [facility] eGFR 68 >=60 mL/min/1. 73m2 LAB CHEMISTRY METHOD 02/12/2024 11:07 AM [facility] Comment:Calculation based on the??Chronic Kidney Disease Epidemiology Collaboration (CKD-EPI) equation refit??without adjustment for race. BUN/Creatinine Ratio 14.2 LAB CHEMISTRY METHOD 02/12/2024 11:07 AM [facility] Calcium 8.1(L) 8.5 - 10.5 mg/dL LAB CHEMISTRY METHOD 02/12/2024 11:07 AM [facility] AST (SGOT) 14 10 - 42 unit/L LAB CHEMISTRY METHOD 02/12/2024 11:07 AM [facility] ALT (SGPT) 19 10 - 60 unit/L LAB CHEMISTRY METHOD 02/12/2024 11:07 AM [facility] Alkaline Phosphatase 78 42 - 121 unit/L LAB CHEMISTRY METHOD 02/12/2024 11:07 AM [facility] Total Protein 5.9(L) 6.0 - 8.0 g/dL LAB CHEMISTRY METHOD 02/12/2024 11:07 AM [facility] Albumin 3.3 3.2 - 5.0 g/dL LAB CHEMISTRY METHOD 02/12/2024 11:07 AM [facility] Total Bilirubin 0.6 0.0 - 1.4 mg/dL LAB CHEMISTRY METHOD 02/12/2024 11:07 AM [facility] Blood Venous blood specimen / Unknown Venipuncture / Unknown 02/12/2024 6:11 AM EST 02/12/2024 9:15 AM EST us Erasto Henry MD LAB BLOOD ORDERABLES Final Resul t [facility] [address] [place] [address], * (ABNORMAL) Complete blood count (02/12/2024 6:11 AM EST) WBC 5.1 4.8 - 10.8 K/mcL LAB HEMETOLOGY METHOD 02/12/2024 11:24 AM [facility] RBC 4.10(L) 4.50 - 5.50 M/mcL LAB HEMETOLOGY METHOD 02/12/2024 11:24 AM [facility] Hemoglobin 11.9(L) 13.5 - 17.5 g/dL LAB HEMETOLOGY METHOD 02/12/2024 11:24 AM [facility] Hematocrit 36.6(L) 42.0 - 54.0 % LAB HEMETOLOGY METHOD 02/12/2024 11:24 AM EST [facility] MCV 88.4 79.0 - 98.0 FL LAB HEMETOLOGY METHOD 02/12/2024 11:24 AM EST [facility] MCH 28.7 27.0 - 32.0 pcg LAB HEMETOLOGY METHOD 02/12/2024 11:24 AM EST [facility] MCHC 32.5 32.0 - 37.0 g/dL LAB HEMETOLOGY METHOD 02/12/2024 11:24 AM EST [facility] RDW 12.9 11.0 - 15.0 % LAB HEMETOLOGY METHOD 02/12/2024 11:24 AM [facility] Platelets 85(L) 130 - 400 K/mcL LAB HEMETOLOGY METHOD 02/12/2024 11:24 AM [facility] Comment:reviewed by slide MPV 12.1(H) 7.0 - 11.0 FL LAB HEMETOLOGY METHOD 02/12/2024 11:24 AM [facility] NRBC 0.0 <1.0 % LAB HEMETOLOGY METHOD 02/12/2024 11:24 AM [facility] NRBC Absolute 0.00 <0.10 K/mcL LAB HEMETOLOGY METHOD 02/12/2024 11:24 AM [facility] Blood Venous blood specimen / Unknown Venipuncture / Unknown 02/12/2024 6:11 AM EST 02/12/2024 9:15 AM EST us Erasto Henry MD LAB BLOOD ORDERABLES Final Resul t [facility] [address] [place] [address], documented in this encounter Visit Diagnoses Diagnosis Hypothyroidism, unspecified Paroxysmal atrial fibrillation (CMS/HCC V24, CMS/HCC V28) Atrial fibrillation documented in this encounter Care Teams Pharmacy Account Director Relationship Specialty Start Date End Date Amari Vyas DO [address] [place] [phone] PCP - General Internal Medicine 11/11/20 documented as of this encounter
--- OUTSIDE RECORDS SUMMARY | 2024-08-20 18:36 | XMS_ITS | Encounter Summary ---
Author Organization [facility] Address [address] [place] [address] Care Team Providers Care Blueprint Clerk Name Role Phone DavionmynorattilaAmari virk Primary Care Provider [phone] Encounter Details Date Type Department Care Team (Late st Contact Info) Description 02/20/[address] [facility] - Main Lab [address] [facility] [place] [phone] Erasto Henry MD [address] [place] [address] [address] [place], [phone] Essential (primary) hypertension Social History Tobacco [...] mmol/L LAB CHEMISTRY METHOD 02/21/2024 9:[address] [facility] Potassium 4.3 3.5 - 5.5 mmol/L LAB CHEMISTRY METHOD 02/21/2024 9:[address] [facility] Chloride 107 96 - 110 mmol/L LAB CHEMISTRY METHOD 02/21/2024 9:[address] [facility] CO2 30 21 - 32 mmol/L LAB CHEMISTRY METHOD 02/21/2024 9:[address] [facility] Anion Gap 5 3 - 11 LAB CHEMISTRY METHOD 02/21/2024 9:[address] [facility] Glucose 136(H) 70 - 100 mg/dL LAB CHEMISTRY METHOD 02/21/2024 9:[address] [facility] BUN 14 5 - 25 mg/dL LAB CHEMISTRY METHOD 02/21/2024 9:[address] [facility] Creatinine 1.15 0.70 - 1.30 mg/dL LAB CHEMISTRY METHOD 02/21/2024 9:[address] [facility] eGFR 72 >=60 mL/min/1. 73m2 LAB CHEMISTRY METHOD 02/21/2024 9:[address] [facility] Comment:Calculation based on the??Chronic Kidney Disease Epidemiology Collaboration (CKD-EPI) equation refit??without adjustment for race. BUN/Creatinine Ratio 12.2 LAB CHEMISTRY METHOD 02/21/2024 9:[address] [facility] Calcium 8.4(L) 8.5 - 10.5 mg/dL LAB CHEMISTRY METHOD 02/21/2024 9:[address] [facility] Blood Venous blood specimen / Unknown Venipuncture / Unknown 02/21/2024 6:49 AM EST 02/21/2024 8:51 AM EST us Erasto Henry MD LAB BLOOD ORDERABLES Final Resul t [facility] [address] [place] [address], * (ABNORMAL) Complete blood count (02/21/2024 6:49 AM EST) WBC 5.5 4.8 - 10.8 K/mcL LAB HEMETOLOGY METHOD 02/21/2024 9:[address] [facility] RBC 4.20(L) 4.50 - 5.50 M/mcL LAB HEMETOLOGY METHOD 02/21/2024 9:[address] [facility] Hemoglobin 12.1(L) 13.5 - 17.5 g/dL LAB HEMETOLOGY METHOD 02/21/2024 9:[address] [facility] Hematocrit 37.0(L) 42.0 - 54.0 % LAB HEMETOLOGY METHOD 02/21/2024 9:[address] [facility] MCV 87.9 79.0 - 98.0 FL LAB HEMETOLOGY METHOD 02/21/2024 9:[address] [facility] MCH 28.7 27.0 - 32.0 pcg LAB HEMETOLOGY METHOD 02/21/2024 9:[address] [facility] MCHC 32.7 32.0 - 37.0 g/dL LAB HEMETOLOGY METHOD 02/21/2024 9:[address] [facility] RDW 12.7 11.0 - 15.0 % LAB HEMETOLOGY METHOD 02/21/2024 9:[address] [facility] Platelets 84(L) 130 - 400 K/mcL LAB HEMETOLOGY METHOD 02/21/2024 9:[address] [facility] Comment:previously verified by slide MPV 11.9(H) 7.0 - 11.0 FL LAB HEMETOLOGY METHOD 02/21/2024 9:40 AM EST [facility] NRBC 0.0 <1.0 % LAB HEMETOLOGY METHOD 02/21/2024 9:40 AM EST [facility] NRBC Absolute 0.00 <0.10 K/mcL LAB HEMETOLOGY METHOD 02/21/2024 9:40 AM EST [facility] Blood Venous blood specimen / Unknown Venipuncture / Unknown 02/21/2024 6:49 AM EST 02/21/2024 8:51 AM EST us Erasto Henry MD LAB BLOOD ORDERABLES Final Resul t [facility] [address] [place] [address], documented in this encounter Visit Diagnoses Diagnosis Essential (primary) hypertension Unspecified essential hypertension documented in this encounter Care Teams Blueprint Clerk Relationship Specialty Start Date End Date Amari Vyas DO [address] [place] [phone] PCP - General Internal Medicine 11/11/20 documented as of this encounter
--- OUTSIDE RECORDS SUMMARY | 2024-08-20 18:36 | XMS_ITS | Encounter Summary ---
Author Organization [facility] Address [address] [place] [address] Care Team Providers Care Farm Equipment Mechanic Name Role Phone Amari Vyas DO Primary Care Provider Encounter Details Date Type Department Care Team ([facility] st Contact Info) Description 02/27/2024 Lab Requisition [facility] - Main Lab 299 [facility] [place] [phone] Erasto Henry MD [address] [place] [address], [phone] Essential (primary) hypertension Social History Tobacco [...] hypertension documented in this encounter Care Teams Farm Equipment Mechanic Relationship Specialty Start Date End Date Amari Vyas DO [address] [place] [phone] PCP - General Internal Medicine 11/11/20 documented as of this encounter
--- OUTSIDE RECORDS SUMMARY | 2024-08-20 18:36 | XMS_ITS | Encounter Summary ---
Author Organization [employer] Address [address] [place] [address] [place] [address] Care Team Providers Care Field Sales Specialist Name Role Phone Lauren Whittaker MD Primary Care Pro vider Reason for Visit * Reason Onset Date Comments Nurse Triage 11/21/2023 Encounter Details Date Type Department Care Team ([facility] st Contact Info) Description 11/21/2023 Telephone [facility] [address] [place] [address] Lauren Whittaker MD [address] [place] [address] Nurse Triage Social History Tobacco Use Types [...] 2:13 PM EDT Pt reports went to [facility] 11/15/23 to be seen for Back [...] find position of comfort. Pt went to [facility] 11/15/23 and was given shot of morphine for pain but, no further prescription for pain medication. Pt is advised to come to [facility] for provider to see today. Visiting nurse will bring Pt to [facility] today. Pt agrees with this disposition. [...] Description 08/22/2024 2:15 PM EDT Office Visit [facility] [address] [place] [phone] Lauren Whittaker MD [address] [place] [phone] documented as of this encounter Visit Diagnoses Not on filedocumented in this encounter Additional Health Concerns Assessment Noted Time PHQ-9 Depression Total Score: 0 11/15/19 9:31 AM EDT documented as of this encounter Care Teams Field Sales Specialist Relationship Specialty Start Date End Date Lauren Whittaker MD [address] [place] [phone] PCP - General Internal Medicine 11/15/23 [facility] 03/08/24 documented as of this encounter
--- OUTSIDE RECORDS SUMMARY | 2024-08-20 18:36 | XMS_ITS | Encounter Summary ---
Author Organization [employer] Address [address] [place] [address] [address] [place] [address] Care Team Providers Care Process Safety Manager Name Role Phone Lauren Whittaker MD Primary Care Pro vider Reason for Visit * Reason Comments Med Refill Encounter Details Date Type Department Care Team ([facility] st Contact Info) Description 06/27/2024 Refill [facility] [address] [place], [place] [phone] Gretel Sosa, ANP [address] [place] [address] Social History Tobacco Use Types Packs/Day Years [...] 08/22/2024 2:15 PM EDT Office Visit [facility] [address] [place] [phone] Lauren Whittaker MD [address] [place] [phone] documented as of this encounter Visit Diagnoses Not on filedocumented in this encounter Additional Health Concerns Assessment Noted Time PHQ-9 Depression Total Score: 12 025 12:41 PM EST documented as of this encounter Care Teams Process Safety Manager Relationship Specialty Start Date End Date Lauren Whittaker MD [address] [place] [phone] PCP - General Internal Medicine 11/15/23 [facility] 03/08/24 documented as of this encounter
--- OUTSIDE RECORDS SUMMARY | 2024-08-20 18:36 | XMS_ITS | Data Portability ---
Author Organization [facility] Actionality, svmg_admin Address [address] [place] [address] Care Team Providers Care Intake Assessor Name Role Phone ISAIAH PAYTON Referring Provider [phone] [facility] Primary Care Provider Assessment No assessment recorded. Plan of Treatment Reminders Order Date Submit Date Provider Last Modified By Organization Details Last Modified Time Details Appointments None recorded. Lab lipid panel, serum 2019 020 MARY [facility], [address] [place] [address], [id number], 0 16:07:45 CMP, serum or plasma 2019 020 MARY [facility], [address] [place] [address], [address], 0 16:07:45 magnesium, serum or plasma 2019 020 MARY [facility], [address] [place] [address], [address], 0 16:07:46 BMP, serum or plasma 2019 020 [place] [address] [facility], [address] [place] [address], [address], 0 11:23:52 Referral None recorded. Procedures None recorded. Surgeries None recorded. Imaging US, echocardio gram - 2D colorflow and Doppler, with contrast if clinically indicated per protocol. To be read by Dr. Howell [address] ([facility]), [address] [place] [address], [address], 1 11:42:05 electrocar diogram 2019 [facility], [address] [place] [address], [address], 0 11:06:51 Medication Orders acetaminop hen 500 mg capsule 2019 INTERFACE [facility] #[id number], [address], [place], [id number], 0 09:48:13 amoxicilli n 500 mg capsule 2019 [id number], [address], [place], [id number], 0 09:53:18 sotalol 80 mg tablet 2019 INTERFACE [facility] #32105, [address], [place], [id number], 0 09:44:36 amlodipine 2.5 mg tablet 2019 INTERFACE [facility] #90746, [address], [place], [id number], 0 09:44:36 lisinopril 5 mg tablet 2019 INTERFACE [facility] #[id number], [address], [place], [id number], 0 09:48:16 Patient TargetsNo targets recorded. Patient Instructions Encounter Date Encounter Id Patient Instructions Last Modified By Organization Details Last Modified Time 06/03/2019 [id number] heart blocks: care instructions [email or web address] Not available [...] A total of 45 minutes were spent [id number] with the patient during this encounter and [...] 65-99 above high normal Not Available [facility] ([facility]) [address] [place], [address], 06/03/2019 16:07:45 06/03/1906/03/2019 CMP, serum or plasm a BUN 21 mg/dL 6-24 Not Available [facility] ([facility]) [address] [place], [address], 06/03/2019 16:07:45 06/03/1906/03/2019 CMP, serum or plasm a creatinine 1.30 mg/dL 0.76-1 .27 above high normal Not Available [facility] ([facility]) [address] [place], [address], 06/03/2019 16:07:45 06/03/19 20 06/03/2019 CMP, serum or plasm a eGFR if nonafricn AM 61 mL/mi n/1.7 3 >59 Not Available [facility] ([facility]) [address] [place], [address], 06/03/2019 16:07:45 06/03/19 20 06/03/2019 CMP, serum or plasm a eGFR if africn AM 70 mL/mi n/1.7 3 >59 Not Available [facility] ([facility]) [address] [place], [address], 06/03/2019 16:07:45 06/03/19 20 06/03/2019 CMP, serum or plasm a BUN/creatini ne ratio 16 9-20 Not Available [facility] ([facility]) [address] [place], [address], 06/03/2019 16:07:45 06/03/19 20 06/03/2019 CMP, serum or plasm a sodium 139 mmol/ L 134-14 4 Not Available [facility] ([facility]) [address] [place], [address], 06/03/2019 16:07:45 06/03/19 20 06/03/2019 CMP, serum or plasm a potassium 4.8 mmol/ L 3.5-5. 2 Not Available [facility] ([facility]) [address] [place], [address], 06/03/2019 16:07:45 06/03/19 20 06/03/2019 CMP, serum or plasm a chloride 102 mmol/ L 96-106 Not Available [facility] ([facility]) [address] [place], [address], 06/03/2019 16:07:45 06/03/19 20 06/03/2019 CMP, serum or plasm a carbon dioxide, total 23 mmol/ L 20-29 Not Available [facility] ([facility]) [address] [facility] [place], [address], 06/03/2019 16:07:45 06/03/19 20 06/03/2019 CMP, serum or plasm a calcium 8.9 mg/dL 8.7-10 .2 Not Available [facility] ([facility]) [address] [facility] [place], [address], 06/03/2019 16:07:45 06/03/19 20 06/03/2019 CMP, serum or plasm a protein, total 6.8 g/dL 6.0-8. 5 Not Available [facility] ([facility]) [address] [facility] [place], [address], 06/03/2019 16:07:45 06/03/19 20 06/03/2019 CMP, serum or plasm a albumin 4.2 g/dL 3.8-4. 9 Not Available [facility] ([facility]) [address] [place], [address], 06/03/2019 16:07:45 06/03/19 20 06/03/2019 CMP, serum or plasm a globulin, total 2.6 g/dL 1.5-4. 5 Not Available [facility] ([facility]) [address] [facility] [place], [address], 06/03/2019 16:07:45 06/03/19 20 06/03/2019 CMP, serum or plasm a A/G ratio 1.6 1.2-2. 2 Not Available [facility] ([facility]) [address] [place], [address], 06/03/2019 16:07:45 06/03/1906/03/2019 CMP, serum or plasm a bilirubin, total 0.7 mg/dL 0.0-1. 2 Not Available [facility] ([facility]) [address] [place], [address], 06/03/2019 16:07:45 06/03/19 20 06/03/2019 CMP, serum or plasm a alkaline phosphatase 84 IU/L 39-117 Not Available [facility] ([facility]) [address] [facility] [place], [address], 06/03/2019 16:07:45 06/03/19 20 06/03/2019 CMP, serum or plasm a AST (SGOT) 15 IU/L 0-40 Not Available [facility] ([facility]) [address] [facility] [place], [address], 06/03/2019 16:07:45 06/03/19 20 06/03/2019 CMP, serum or plasm a ALT (SGPT) 13 IU/L 0-44 Not Available [facility] ([facility]) [address] [place], [address], 06/03/2019 16:07:45 06/03/19 20 06/03/2019 lipid panel , serum cholesterol, total 207 mg/dL 100-19 9 above high normal Not Available [facility] ([facility]) [address] [place], [address], 06/03/2019 16:07:45 06/03/19 20 06/03/2019 lipid panel , serum triglyceride s 118 mg/dL 0-149 Not Available [facility] ([facility]) [address] [place], [address], 06/03/2019 16:07:45 06/03/19 20 06/03/2019 lipid panel , serum HDL cholesterol 56 mg/dL >39 Not Available [facility] ([facility]) [address] [place], [address], 06/03/2019 16:07:45 06/03/19 20 06/03/2019 lipid panel , serum VLDL cholesterol joanne 24 mg/dL 5-40 Not Available [facility] ([facility]) [address] [place], [address], 06/03/2019 16:07:45 06/03/19 20 06/03/2019 lipid panel , serum LDL cholesterol calc 127 mg/dL 0-99 above high normal Not Available [facility] ([facility]) [address] [place], [address], 06/03/2019 16:07:45 06/03/19 20 06/03/2019 lipid panel , serum comment: CLIENT SERVICE COORDINATOR Not Available [facility] ([facility]) [address] [facility], [place], [address], 06/03/2019 16:07:45 06/03/19 20 06/03/2019 magne sium, serum or plasm a magnesium 2.1 mg/dL 1.6-2. 3 Not Available [facility] ([facility]) [address] [facility], [place], [address], 06/03/2019 16:07:46 05/10/19 20 05/10/2019 SPECT , myoca rdial perfu manuel, multi ple [facility] Depart ment of Radiol [address], [address] Name: BROOKE MATTHEW : 3810 Date of Servic e: 1016 Acct Number : [id number] Order Number : [id number] Locati on: [facility] Report Number : [id number] Servic e: ADM Navi/ME D Reques ting Physic courtney: Krys Scott th A Catego ry: NUCLEA R MEDICI NE Exam: MYOCAR D PERF CLARITZA MULTI Access ion #: [id number] VH Signs/ Sympto ms: CHEST PAIN [...] reting Cardio logist : Baldomero Hood DO, [facility] Date/T mireille of Dictat ion: 1302 Radiol ogy Reside nt (if applic able): Approv ed By Attend ing Radiol ogist: Jo Arreaga DO 1302 Orderi ng physic courtney: Krys lemus Sonia Other provid ers: Juan Monk, UNKNOW N, Octavio allen, UNKNOW N, , , [email or web address] [facility] (Radiology) [address] [place] [address], [address], 05/10/2019 13:55:43 05/23/19 20 05/23/2019 elect daniel seymour am [facility] [address] [place] [address] PATIEN T: BROOKE MATTHEW DEP ER/ : WER 3810 HEART RATE 87 RR Interv al 690 Atrial Rate 87 P-R Interv al 220 P Durati on 112 P Horizo ntal Larue -22 P Front Larue 85 Q Onset 502 QRSD Interv al 173 QT Interv al 427 QTcB 514 QTcF 483 QRS Horizo ntal Larue QRS Larue 100 I-40 Horizo ntal Larue 26 I-40 Front Larue 17 T-40 Horizo ntal Larue 167 T-40 Front Larue 171 T Horizo ntal Larue -8 T Wave Larue 45 S-T Horizo ntal Larue 2 S-T Front Larue 43 ECG Severi ty - ABNORM AL ECG - ECG Impres manuel Sinus rhythm ECG Impres manuel FIRST DEGREE AV BLOCK ECG Impres manuel RBBB _ (Elect sandra grant Signed by) Trans D T: 1352 Signed D T: 5 Report #: [id number] Orderi ng physic courtney: Room Emerge ncy Other provid ers: Room Emerge ncy, , , Malorie Hall , , , [email or web address] [facility] (Radiology) [address] [place] [address], [address], 05/25/2019 13:45:46 05/29/19 20 05/26/2019 pharm acolo gic nucle ar stres s test [facility] t Hospit al [address] [place] [address] PATIEN T: BROOKE MATTHEW DIS Navi/ME D [...] re 140/73 mmHg, oxygen satura tion at [facility] ne is 97% on room [...] DT: 2019 TT: 04:25 P Doc #: [id number] cc: MD Tre Soas , DO Bry whipple, D.O. Orderi ng physic courtney: Other provid ers: Bry whipple, UNKNOW N, Octavio allen, UNKNOW N, Octavio allen, Tre Howell , Bry whipple [email or web address] [facility] (Radiology) [address], [place], [address], 06/03/2019 11:29:21 05/31/19 20 05/23/2019 XR, chest [...] seymour am No observ ation record ed. [email or web address] [facility] [address] [place] [address], [address], 06/11/2019 15:13:57 07/01/19 20 06/11/2019 XR, chest No observ ation record ed. BARCODE Not Available 2019 13:41:08 07/01/19 20 06/22/2019 CT, abdom en + pelvi s, w/o contr ast No observ ation record ed. BARCODE [address], [address], 07/01/2019 13:41:08 07/27/19 21 07/26/2020 elect daniel seymour am [facility] [address] [address] PATIEN T: JOSE Long,HENR Y ADM Navi/ME D : W22S 3810 HEART RATE 65 RR Interv al 923 Atrial Rate 65 P-R Interv al 230 P Durati on 116 P Horizo ntal Larue -22 P Front Larue 93 Q Onset 499 QRSD Interv al 179 QT Interv al 494 QTcB 514 QTcF 507 QRS Horizo ntal Larue QRS Larue 109 I-40 Horizo ntal Larue 22 I-40 Front Larue 14 T-40 Horizo ntal Larue 181 T-40 Front Larue 158 T Horizo ntal Larue -14 T Wave Larue 71 S-T Horizo ntal Larue -5 S-T Front Larue 68 ECG Severi ty - ABNORM AL ECG - ECG Impres manuel Sinus rhythm ECG Impres manuel FIRST DEGREE AV BLOCK ECG Impres manuel RBBB _ (Elect sandra burns Signed by) Trans D T: 0658 Signed D T: 1040 Report #: [id number] Orderi ng physic courtney: Juan Monk Other provid ers: Juan Monk, Ermelinda gonzales, Ermelinda gonzales, FARSHAD N, , , [email or web address] [facility] (Radiology) [address] [place] [address], [address], 07/27/2020 08:34:06 07/27/19 21 07/25/2020 elect daniel seymour am [facility] t Hospit al [address] [place] [address] PATIEN T: BROOKE MATTHEW Y ADM Navi/ME D : W22S 3810 HEART RATE 69 RR Interv al 870 Atrial Rate 70 P-R Interv al P Durati on 122 P Horizo ntal Larue P Front Larue Q Onset 505 QRSD Interv al 179 QT Interv al 472 QTcB 506 QTcF 494 QRS Horizo ntal Larue 67 QRS Larue 104 I-40 Horizo ntal Larue 16 I-40 Front Larue 29 T-40 Horizo ntal Larue 158 T-40 Front Larue 185 T Horizo ntal Larue -29 T Wave Larue 74 S-T Horizo ntal Larue -30 S-T Front Larue 53 ECG Severi ty - ABNORM AL ECG - ECG Impres manuel Sinus rhythm ECG Impres manuel First degree AV block ECG Impres manuel RBBB _ (Justin burns Signed by) Trans D T: 1311 Signed D T: 1043 Report #: [id number] Orderi ng physic courtney: Michael hernandez Other provid ers: Juan Monk, Ermelinda gonzales, Ermelinda gonzales, UNKNOW N, , , [email or web address] [facility] (Radiology) [address] [place] [address], [address], 07/27/2020 08:36:28 04/21/19 22 03/13/2021 ICD remot e inter rogat ion (PROC ) No observ ation record ed. [email or web address] Not Available 04/21 18:41:45 Result Notes None recorded. Problems Name Problem SNOMED Code Status Onset Date Resolution Date Notes Provider Name and Address Organization Details Recorded Time Hyperlipid emia 23955503 Active 2019 Coni Reynolds [facility] 0 10:18:02 Gout 55720866 Active 2019 Coni diggs [facility] 0 10:18:11 Atrial fibrillati on 73408821 Active 2019 Coni Reynolds [facility] 0 10:18:18 Cardiac pacemaker in situ 915918887 Active 2019 AICD Coni diggs [facility] 0 10:23:43 Gastroesop hageal reflux disease 464742010 Active 2019 Coni Pandeyvais [facility], [facility] 0 10:18:33 Clostridiu m difficile colitis 957842392 Active 2019 Coni Pandeyvais [facility], [facility] 0 10:18:57 Diabetes mellitus 28674480 Active 2019 diet controlled Coni Reynolds [facility] 0 10:19:27 Hypothyroi dism 67108428 Active 2019 Coni Pandeyvais [facility], [facility] 0 10:19:47 Asthma 607298643 Active 2019 Coni Pandeyvais [facility] 0 10:20:06 Hypertensi ve disorder 17014575 Active 2019 Coni Pandeyvais [facility] 0 10:20:35 Coronary arterioscl erosis 19917207 Active 2019 Coni Pandeyvais [facility] 0 10:20:42 Mood disorder 63982911 Active 2019 Coni Pandeyvais [facility] 0 10:20:55 Benign prostatic hyperplasi a 690085330 Active 2019 Coni Pandeyvais [facility] 0 10:21:07 Anxiety 29899970 Active 2019 Coni Gail [facility] 0 10:21:19 Migraine 33208332 Active 2019 Coni Savoy [facility] 0 10:23:01 Obstructiv e sleep apnea syndrome 92499958 Active 2019 Coni Gail [facility] 0 10:24:35 Problem Notes None recorded. Procedures Surgical History Date Name Laterality Status Provider Name and Address Organization Details Recorded Time 05/20/19 17 Aicd, dual chamber completed [facility] 06/03/2019 11:09:09 06/13/19 09 Other [facility] 06/03/2019 11:13:13 05/05/19 07 Other Surgeries [facility] 06/03/2019 11:22:53 repair of tetralogy of Fallot completed Coni Pandeyvais [facility] 05/29/2019 10:08:25 Appendectomy completed Coni Savoy [facility] 05/29/2019 10:08:33 coronary artery bypass graft completed [facility] 05/29/2019 10:24:05 Imaging Results Imaging Date Name Status LastModified by Organization Details LastModified Time 05/10/2019 SPECT, myocardial perfusion, multiple completed [email or web address] [facility] (Radiology) [address] [place] [address], [address], 05/10/2019 13:55:43 05/23/2019 electrocardiogram completed [address] (Radiology) [address] [place] [address], [address], 05/25/2019 13:45:46 05/26/2019 pharmacologic nuclear stress test completed [address] (Radiology) [address] [place] [address], [address], 06/03/2019 11:29:21 05/23/2019 XR, chest completed Information [...] not available 05/31/2019 10:28:33 06/03/2019 electrocardiogram completed [email or web address] [facility] [address] [place] [address], [address], 06/11/2019 15:13:57 06/11/2019 XR, chest completed [facility] Information no t available 07/01/2019 13:41:08 06/22/2019 CT, abdomen + pelvis, w/o contrast completed [facility] [address], [address], 07/01/2019 13:41:08 07/26/2020 electrocardiogram completed [email or web address] [facility] (Radiology) [address] [place] [address], [address], 07/27/2020 08:34:06 07/25/2020 electrocardiogram completed [email or web address] [facility] (Radiology) [address] [facility], [place], [address], 07/27/2020 08:36:28 03/13/2021 ICD remote interrogation (PROC) completed [email or web address] Information not available 04/21/2021 18:41:45 Procedure Notes None recorded. Medical Equipment None Reported. Allergies Allergen ID Allergen Name Allergen Category Reaction Reaction Severity Criticality Documentation Date Start Date Code Code System Note Provider Name and Address Organization Details Recorded Time 20331109 Lipitor medicatio n hives Not available Not available 05/29/2019 73120 5 RxNorm Coni diggs [facility] 0 10:17:26 629394 honey bee venom medicatio n Not available Not available Not available 05/29/2019 22210 7 RxNorm Coni diggs [facility] 0 10:25:46 Medications Name Sig Start Date [...] Address Organization Details Last Updated DateTime 06/03/2019 135596.7 6 g 35.6 kg/m2 175.26 cm 154 mm[Hg] 100 mm[Hg] Christophe Saldivar [facility] 0 09:19:11 Date Recorded Body height Provider Name an d Address Organization Details Last Updated DateTime 08/09/2019 175.26 cm Andreia Denise [facility] 08/09/2019 12:48:10 Social History Question Answer Notes LastModified by Amuso Details LastModified Time Tobacco Smoking Status Never Smoker Coni Reynolds dontae [facility] 05/29/2019 10:15:04 What Is Your Level Of Caffeine Consumption? Moderate [email or web address] Information not available 06/03/2019 How Much Tobacco Do You Chew? None Information not available 05/29/2019 What Type Of Diet Are You Following? CARDIAC Information not available 05/29/2019 Cups/cans Per Day: 1 [email or web address] Information not available 06/03/2019 Illicit Drug Use? No Information not available 05/29/2019 Does The Patient Have Fever And Cough Or Shortness Of Breath AND In The Last 14 Days Has The Patient Come In Contact With Someone With Confirmed 2019-nCoV? No [email or web address] Information not available 06/03/2019 How Many Children Do You Have? 0 [email or web address] Information not available 06/03/2019 How Much Tobacco Do You Smoke? No Information not available 05/29/2019 Sex: Unknown Functional Status Question Answer Note LastModified by Amuso Details LastModified Time What is your level of alcohol consumption? 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 Never used smokeless tobacco [email or web address] Information not available 06/03/2019 What is your occupation? disabled Information not available 05/29/2019 Do you or have you ever used e-cigarettes or vape? Never used electronic cigarettes [email or web address] Information not available 06/03/2019 Mental Status None recorded. Family History Relationship [...] SNOMED-CT Code Diagnosis ICD10 Code Diagnosis Note [id number] Tre Howell [facility] [address], [address] [place] [address] 06/03/2019 08:26:27 06/03/2019 10:11:27 Tetralogy of Fallot 76038622 Q21.3 He has hx of tetrology of fallot repaired. Doesn't he's had surgery for this doesn't recall specific details. He has seen Dr Vinicio Cordero at [facility] from what he tells me. I [...] for VT. Obstructiv e sleep apnea syndrome 13938233 G47.33 Weight loss advised. He has obstructiv e sleep apnea. He states he seeing someone get set back up with CPAP. I spent mL (especiall y with history of glycogen heart disease to treat his obstructiv e sleep apnea. Precordial pain 89333044 R07.2 Chest pains when he was hospitaliz ed in May 2019. They seem to be more muscular in nature. They were reproducib le. He seems to have a chronic chest pain syndrome. Nuclear stress at the time May 2019. Showed no ischemia. He can use Tylenol As needed. Aortic aneurysm 78769210 I71.9 echo May 2019 a root 4.2 cm AA 4.0 cm BP control as above and echo one year Essential hypertension 01713293 I10 Blood pressure today is elevated.h sully states off meds 2 days He previously been on amlodipine 2.5 mg daily. I will represcrib ed this for him. In addition to following a low sodium diet and weight loss. I'm also going to start him on lisinopril BMP in 1 week. Ventricula r tachycardia 42151906 I47.2 He is on sotalol 80 mg [...] may replete if needed Mixed hyperlipidemia 267 727684 E78.2 Has history of hyperlipid emia. He [...] a statin. 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 Common finding in patient with congenital underlying heart disease. Automatic implantable cardiac defibrillator in situ 917233985 Z95.810 [place] Castaneda dual-chamb er ICD in [...] Member ID Tapia Member ID Guarantor Name 06/03/2019 1 [facility] - DOS PRIOR TO 2022 - DUAL ELIGIBLE (MEDICARE REPLACEMENT/AD VANTAGE - HMO) Joaquín Barrientos [id number] Joaquín Barrientos Notes Date Note Type Note Provider Name and Address Organization Details Recorded Time 06/03/2019 text/html 59 male. Hx of Tetrology of Fallot. Has Stude ICD and hx of ?VT. He moved here from . Living in Sober house here. [facility] follow [facility] Sa[facility].and [facility] at [facility] He was in hosp few weeks ago [...] he is feeling much better now.Going to [facility] now as well. He denies CP. he has bene off his BP meds for last 2 days. No syncope no palpitations. Tre Howell, DO [address] [place], [address], [place] - [facility]. 06/04/2019 13:52:59
--- OUTSIDE RECORDS SUMMARY | 2024-08-20 18:36 | XMS_ITS | Encounter Summary ---
Author Organization [employer] Address [address] [place] [address] [place] [address] Care Team Providers Care Slitter Service And Setter Name Role Phone Lauren Whittaker MD Primary Care Pro vider Reason for Visit * Reason Onset Date Comments Med Refill 04/10/2024 Encounter Details Date Type Department Care Team ([facility] st Contact Info) Description 04/10/2024 Telephone [facility] MEDICINE [address] [place] [address] Lauren Whittaker MD [address] [place] [address] Med Refill Social History Tobacco Use Types [...] 50 MG tablet [id number] [address] documented in this encounter Plan of Treatment Upcoming Encounters Date Type Department Care Team ([facility] st Contact Info) Description 08/22/2024 2:15 PM EDT Office Visit [facility] MEDICINE [address] [place] [phone] Lauren Whittaker MD [address] [place] [address] documented as of this encounter Visit Diagnoses Not on filedocumented in this encounter Additional Health Concerns Assessment Noted Time PHQ-9 Depression Total Score: 0 11/15/19 24 9:31 AM EDT documented as of this encounter Care Teams Slitter Service And Setter Relationship Specialty Start Date End Date Lauren Whittaker MD [address] [place] [address] [phone] PCP - General Internal Medicine 11/15/23 [facility] 03/08/24 documented as of this encounter
--- OUTSIDE RECORDS SUMMARY | 2024-08-20 18:36 | XMS_ITS | Encounter Summary ---
Author Organization [employer] Address [address] [facility] 7t [place] [address] Care Team Providers Care Grinder Watch Parts Name Role Phone Lauren Whittaker MD Primary Care Pro vider Encounter Details Date Type Department Care Team ([facility] Contact Info) Description 06/03/[address] [phone] Provider, Not In System Social [...] us know they sent this patient to [facility] for chest pains. (He does not appear to be one of ours) documented in this encounter Plan of Treatment Upcoming Encounters Date Type Department Care Team (Late st Contact Info) Description 08/22/2024 2:15 PM EDT Office Visit [facility] MEDICINE [address] [place] [address] Lauren Whittaker MD [address] [place] [address] documented as of this encounter Visit Diagnoses Not on filedocumented in this encounter Additional Health Concerns Assessment Noted Time PHQ-9 Depression Total Score: 12 025 12:41 PM EST documented as of this encounter Care Teams Grinder [employer] Relationship Specialty Start Date End Date Lauren Whittaker MD [address] [place] [phone] PCP - General Internal Medicine 11/15/23 [facility] 03/08/24 documented as of this encounter
--- OUTSIDE RECORDS SUMMARY | 2024-08-20 18:36 | XMS_ITS | Clinical Summary ---
Author Organization [employer] Address [address] [place] [address] 7t [place] [address] Care Team Providers Care Nurse Tech Name Role Phone Lauren Whittaker MD Primary [...] tablet twice a day by oral route. 0 Active lidocaine (Lidoderm) 5 % patchIndications :Acute bilateral low back pain with sciatica, sciatica laterality unspecified Apply 1 patch topically Once per day. Remove & discard patch within 12 hours or as directed by MD. 15 patch 2 4 Active lisinopril 2.5 MG tablet Take 1 tablet (2.5 mg) by mouth Once per day. 30 tablet 3 4 Active Blood Pressure Monitoring (Blood Pressure Kit) kit 1 Device Once per day. 1 kit 4 Active glucose ([facility] Glucose) 4 g chewable tablet Use 16 g in the mouth or throat if needed. 4 Active naloxone (Narcan) 4 mg/0.1 mL nasal spray Administer 4 mg into affected nostril(s) if needed for opioid reversal. 4 Active NIFEdipine XL (Procardia XL) 30 MG 24 hr tablet Take 1 tablet by mouth Once per day. 4 Active levothyroxine (Synthroid, Levoxyl) 75 MCG tablet Take 1 tablet (75 mcg) by mouth Once per day. 30 tablet 3 4 Active Xarelto 20 MG tablet Take 1 tablet (20 mg) by mouth with evening meal. 30 tablet 3 4 10/29/19 25 Active Symbicort 80-4.5 MCG/ACT inhaler Inhale 2 puffs 2 times daily. 1 each 3 4 Active albuterol 108 (90 Base) MCG/ACT inhaler Inhale 2 puffs every 6 (six) hours if needed for wheezing or shortness of breath. 18 g 3 4 Active EPINEPHrine (Epipen) 0.3 MG/0.3ML injection syringe Inject 0.3 mg into the muscle if needed each day. 2 each 1 4 Active isosorbide mononitrate ER (Imdur) 30 MG 24 hr tablet Take 1 tablet (30 mg) by mouth Once per day. 30 tablet 3 4 Active ezetimibe (Zetia) 10 MG tablet Take 1 tablet (10 mg) by mouth Once per day. 30 tablet 3 4 Active metFORMIN (Glucophage) 500 MG tablet Take 1 tablet (500 mg) by mouth with breakfast and with evening meal. 60 tablet 3 4 Active melatonin 10 MG tablet Take 1 tablet (10 mg) by mouth at bedtime. 30 tablet 3 5 Active traZODone (Desyrel) 150 MG tablet Take 1 tablet (150 mg) by mouth at bedtime. 30 tablet 3 5 Active risperiDONE (RisperDAL) 0.5 MG tabletIndication s:Schizophrenia Take 1 tablet (0.5 mg) by mouth 3 times daily. 90 tablet 3 5 Active QUEtiapine (SEROquel) 100 MG tablet Take 1 tablet (100 mg) by mouth at bedtime. 30 tablet 3 Active hydrOXYzine HCl (Atarax) 50 MG tablet Take 1 tablet (50 mg) by mouth if needed at bedtime for anxiety (insomnia). 30 tablet 3 Active escitalopram (Lexapro) 20 MG tablet Take 1 tablet (20 mg) by mouth Once per day. 30 tablet 3 Active tamsulosin (Flomax) 0.4 MG 24 hr capsule Take 1 capsule (0.4 mg) by mouth Once per day. Take 1 capsule every day by oral route. 30 capsule 3 5 Active Active Problems Problem Noted Date Diagnosed [...] cousin but it's only temporary. Pt has morning caregiver with [facility] who is assisting with his living [...] for both services. GERD (gastroesophageal reflux disease) Overview (01/31/2024): Last Assessment & Plan: Cont [...] (01/31/2024): Added automatically from request for surgery [id number] Last Assessment & Plan: Patient complaining of left sided chest pain which is at least sometimes reproducible. Patient has had extensive cardiac workup in the past at [facility], and [facility] which has all been negative. Coronary CT has been -ve, Nuclear stress test was also -ve for any ischemic changes. Patient did have 12 beats of Vtach which was noted on tele but was not seen on ICD interrogration at [facility]. Echo was done at [facility] in February which was normal [...] of 45%. Follows with Dr. Nix at [facility]. etiology of HF was Non-ischemic cardiomyopathy, s/p [...] 11/06/2015 Overview (07/01/2024): [facility] serial #[id number] Dual Chamber ICD implanted 06/12/08 Obstructive sleep [...] Essential hypertension 10/13/2014 Overview (07/01/2024): Setting of [facility] use Hypothyroidism (acquired) 10/01/2013 Overview (01/31/2024): Last [...] cardiac catheterization. This catheterization was performed at [facility] on May. He was noted to [...] online medical record.? -Carotid ultrasound performed at [facility] on July 06, 2007, that showed normal left vertebral artery flow. Exercise was not performed during that study, so they were unable to evaluate for reversal of flow.? -CT Head and Neck performed at [facility] on December 20, 2007. No acute [...] grade stenosis, -Frequent syncope on entrance to [facility], not to other hospitals -Stated VT and ICD shocks : on interrogation, no arrhythmia or shock -Multiple hospitalizations. Most recent October 2014 [facility], negative evaluation, then presented to [facility] via bus from [place], hospitalized, negative evaluation then came to [facility] wanting to be admitted, alf found 10/09/2014 Depressive disorder 10/14/2009 Overview (07/01/2024): Depression with overdose of Sotalol and Ativan 2011 Encounters Date Type Department Care Team Description 08/15/2024 Patient Outreach [facility] MED & PEDS [address] [place], [place] [phone] Lauren Whittaker MD Pre-visit Planning (SDOH unable to reach LVM) 07/23/2024 Telephone [facility] OPTOMETRY [address] [place] [address] Coral Avendano, OD 07/16/2024 Telephone [facility] MEDICINE [address] [place] [address] Lauren Whittaker MD ER Follow-up 07/01/2024 1:40 PM EDT Office Visit [facility] [address] [place] [address] Gaviota Isaacs MD Rib pain on right side (Primary Dx); Hematuria, unspecified type 07/01/2024 Orders Only [facility] MEDICINE [address] [place] [phone] Gaviota Isaacs MD 06/27/2024 Refill [facility] MEDICINE [address] [place] [address] Gretel Sosa ANP 06/18/2024 Telephone [facility] MEDICINE [address] [place] [address] Lauren Whitatker MD FYI 06/13/2024 10:40 AM EDT Office Visit [facility] [address] [place] [address] Donna Walsh DO Schizophrenia, unspecified type (CMS/HCC) (Primary Dx); Type 2 diabetes mellitus with hyperglycemia, without long-term current use of insulin ([facility]) 06/11/[address] [address] Lauren Whittaker MD August recalls 06/03/[address] [phone] Provider, Not In System 05/30/[address] [address] Lauren Whittaker MD FYI 05/23/[address] [phone] Jesi Vargas RN 05/23/2024 Travel from Last 3 Months Immunizations Immunization Administration Dates Next Due COVID-19 Non-US Vaccine, [...] Relation Name Comments COPD Brother COPD Father MO at 70s Mother DM2 Sister Relation Name [...] Description 08/22/2024 2:15 PM EDT Office Visit [facility] MEDICINE [address] [place] [phone] Lauren Whittaker MD [address] [place], [place] [phone] Health Maintenance Due Date Last Done Comments CT Colonography 1962 Colonoscopy 1962 Colorectal Cancer Screening 1962 FIT DNA/Cologuard 1962 FIT 1962 FOBT 1962 Sigmoidoscopy 1962 Disability Screening 1962 Diabetes: Foot Exam 01/26/1972 Eye Exam 01/26/1972 Alcohol/Substance Use Screening 1974 Zoster Vaccines (1 of 2) 01/26/2012 RSV Patients and Patients Aged 60 years or older (1 - Risk 60-74 years 1-dose series) 2022 COVID-19 Vaccine ( season) 2023 03/08/2022, 06/03/2020, 05/06/2020 Diabetes: Urine Protein Screening 11/14/2024 11/15/2023 SDOH Screening 11/14/2024 11/15/2023 Lipid Panel 12/11/2024 12/12/2023 Diabetes: Hemoglobin A1C 02/04/2025 0504 025, 06/13/2024, 02/12/2024, Additional history exists Depression Screening 04/29/2025 04/29/2024, 04/29/19 25 Tobacco Screening 06/13/2025 06/13/2024 DTaP/Tdap/Td Vaccines (8 [...] PM EDT Narrative 07/01/2024 3:55 PM EDT ?[facility] ?[address] ?[place] [address] ?XRay Report ? Signed ? Patient: Floyd,Joaquín ?MR#: [id number] ?? 1 ? : 1960 ?Acct:[id number] ? Age/Sex: 64 / M ?ADM Date: 07/01/24 ? Loc: HO.HHCX ? Attending Dr: Gaviota Isaacs MD ? Ordering Physician: Gaviota Isaacs MD ?? Date of Service: 07/01/24 ?? Procedure(s): XR ribs RT min 3V w CXR1V ?? Accession Number(s): [id number] ? cc: Gaviota Isaacs MD ? CLINICAL HISTORY: PAIN ? Radiographs of the chest right ribs ? Comparison: CR/WA/SR - XR CHEST 2V - 05/23/24 14:47 [...] by Ruba Tristan MD in OV> ? 07/01/245 ? DD/ 53 ? TD/TT: 07/01/244 ? Tieing Machine Operator: ? Procedure Note Donpauly, Image - 07/01/2024 [facility] [address] [place] [address] XRay Report Signed Patient: Jaret Barrientos#: [id number] 1 : 2Acct:[id number] Age/Sex: 64 / MADM Date: 07/01/24 Loc: HO.HHCX Attending Dr: Gaviota Isaacs MD Ordering Physician: Gaviota Isaacs MD Date of Service: 07/01/24 Procedure(s): XR ribs RT min 3V w CXR1V Accession Number(s): [id number] cc: Gaviota Isaacs MD CLINICAL HISTORY: PAIN Radiographs of the chest right ribs Comparison: CR/WA/SR - XR CHEST 2V - 05/23/24 14:47 [...] signed by Ruba Tristan MD in OV> 07/01/24 1555 DD/ 1554 TD/TT: 07/01/244 Tieing Machine Operator: Gaviota Isaacs MD IMG XR PROCEDURES Final Result * (ABNORMAL) POCT A1C (06/13/2024 11:30 AM EDT) Hemoglobin A1C 6.9(A) 4.0 - 6.0 % Blood 06/13/2024 11:3 0 AM EDT Donna Walsh DO POINT OF CARE TEST ENTER/BENJAMIN T ORDERABLES Final Result * POCT glucose manually resulted (06/13/2024 11:30 AM EDT) [facility] Glucose Blood, POC 138 60 - 200 mg/dL Blood Capillary blood specimen / Unknown 06/13/2024 11:30 AM EDT Donna Walsh DO POINT OF CARE TEST ENTER/BENJAMIN T ORDERABLES Final Result * Hepatitis C Antibody with Reflex to HCV, RNA, Quantitative, Real-Time PCR (12/12/2023 11:54 AM EDT) [facility] Hepatitis C Antibody Nonreactive Nonreactive [facility] Comment:Antibodies to HCV no t detected; does not exclude early acuteHCV infection. Blood Venous blood specimen / Unknown 12/12/2023 11:54 AM EDT 12/12/2023 1:04 PM EDT Lauren Solomon MD LAB BLOOD ORDERAB LES Final Result [facility] [address] [place] [phone] * HIV-1/2 Antigen and Antibodies, Fourth Generation, with Reflexes (12/12/2023 11:54 AM EDT) [facility] HIV AB/AG Nonreactive Nonreactive [facility] Comment:HIV-1 p24 Ag and/or HIV-1/HIV-2 Ab not detected.A test result that is nonreactive does not exclude thepossibility of exposure to or infection with HIV-1 and/orHIV-2. Nonreactive results in this assay for individualswith prior exposure to HIV-1 and/or HIV-2 may be due toantigen and antibody levels that are below the limit ofdetection of this assay.The lensgen HIV Ag/Ab Combo assay result andsupplemental assay results should be interpreted inconjunction with the patient's clinical presentation,history and other laboratory results. If the results areinconsistent with clinical evidence, additional testing issuggested to confirm the result. Blood Venous blood specimen / Unknown 12/12/2023 11:54 AM EDT 12/12/2023 1:04 PM EDT us Lauren Solomon MD LAB BLOOD ORDERAB LES Final Result Performing Organization Address [facility] Co de Phone Number [facility] [address] [place] [phone] * (ABNORMAL) Lipid Panel, Standard (12/12/2023 11:54 AM EDT) Triglycerides 80 <150 mg/dL [facility] Comment:Desirable Triglyceri de: less than 150 mg/dLBorderline High Triglyceride 150-199 mg/dLHigh Triglyceride: 200-499 mg/dLVery High Triglyceride: greater than or equal to 5OO mg/dL Cholesterol 184 <200 mg/dL [facility] Comment:Desirable Cholestero l: less than 200 mg/dLBorderline High Cholesterol: 200-239 mg/dLHigh Cholesterol: greater than 239 mg/dL LDL Cholesterol Calculated 113(H) <100 mg/dL [facility] Comment:Desirable LDL: less than 100 mg/dLNear Optimal/Above Optimal LDL: 110- 129 mg/dLBorderline High LDL: 130-159 mg/dLHigh LDL: 160-189 mg/dLVery High LDL: greater than or equal to 190 mg/dL HDL Cholesterol 55 >40 mg/dL [facility] Comment:Desirable HDL: great er than 40 mg/dL Note: This HDL assay may give artificially low results in patients with liver disease. Blood Venous blood specimen / Unknown 12/12/2023 11:54 AM EDT 12/12/2023 1:04 PM EDT us Lauren Solomon MD LAB BLOOD ORDERAB LES Final Result Performing Organization Address City/[facility]/ZIP Co de Phone Number [facility] [address] [place] [phone] * Albumin, Random Urine W/Creatinine (11/15/2023 9:30 AM EDT) Creatinine, Urine 88.58 mg/dL [facility] Microalbumin Urine <5.0 mg/L [facility] Microalbum Creatinine Ratio Ur TNP <30 ug/mg cr [facility] Comment:Unable to calculate albumin/creatinine ratio due to lowmicroalbumin or creatinine result. Urine (Urine, Random) 11/15/2023 9:30 AM EDT 11/15/2023 1:30 PM EDT us Lauren Solomon MD LAB URINE ORDERAB LES Final Result [facility] [address] [place] [phone] from Last 3 Months or Most Recently Relevant to Health Maintenance Insurance [facility] ONE CARE < 65 Care Teams Nurse Tech Relationship Specialty Start Date End Date Lauren Whittaker MD [address] [place] [phone] PCP - General Internal Medicine 11/15/23 [facility] 03/08/24
--- NOTE | 2024-08-20 19:18 | PC.NURSE ---
this rn assumed care of pt , pt reports lower back pain radiating into testis at this time. pt able to urinate but reports pain with bowel movement. pt awaiting provider at this time.
[2024-08-20 20:01] VITALS: BP 126/66; PULSE 67; RESP 20; TEMP 36.3; O2SAT 96
[2024-08-20] MEDS: diazePAM 5 MG TABLET PO (21:45)
[2024-08-20] MEDS: Ibuprofen 600 MG TABLET PO (21:45)
[2024-08-20 22:11] VITALS: BP 132/61; PULSE 78; RESP 16; TEMP 36.2; O2SAT 96
[2024-08-20 23:37] VITALS: BP 132/61; PULSE 78; RESP 16; TEMP 36.2; O2SAT 96
== END 2024-08-21 01:41 | disposition home or self-care (01) ==
PROVIDERS: Physician Assistant Medical; Emergency Provider Emergency Medicine; PCP Student in an Organized Health Care Education/Training Program
DX: M54.16 Radiculopathy, lumbar region (principal); M54.50 Low back pain, unspecified; Z79.899 Other long term (current) drug therapy
CPT/HCPCS: 36415; 80053; 81003; 83735; 85025; 99283; 99284

== ENCOUNTER 2024-08-22 16:11 | Outpatient (REF) | payer OTHER, SELFPAY ==
--- OUTSIDE RECORDS SUMMARY | 2024-08-22 16:14 | XMS_ITS | Encounter Summary ---
Author Organization [facility] Address [address] [place] [address] Care Team Providers Care Vp Account Director Name Role Phone Amari Vyas DO Primary Care Provider [phone] Reason for Visit * Reason Comments Chest Pain Syncope Encounter Details Date Type Department Care Team (Late st Contact Info) Description 08/20/2024 10:11 AM EDT - 08/20/2024 2:10 PM EDT Emergency [facility] Emergency [address] [place] [id number] Aram Sun MD [address] [place] [phone] Chest pain, unspecified type (Primary Dx); Syncope and collapse Discharge Disposition: Home or Self Care Social History Tobacco Use Types Packs/Day Years [...] AM EST documented as of this encounter Last Filed [...] Mass Index 35.44 08/20/2024 10:43 AM EDT documented in this encounter Functional Status * Are you deaf or do you have serious difficulty hearing? Answer Date of Assessment Author No 07/17/2024 10:45 PM EDT Niesha Gutiérrez RN * Are you blind or do you have serious difficulty seeing, even when wearing glasses? Answer Date of Assessment Author No 07/17/2024 10:45 PM EDT Niesha Gutiérrez RN * Do you have serious difficulty walking or climbing stairs? Answer Date of Assessment Author No 07/17/2024 10:45 PM EDT Niesha Gutiérrez RN * Do you have serious difficulty dressing or bathing? Answer Date of Assessment Author No 07/17/2024 10:45 PM EDT Niesha Gutiérrez RN * Because of a physical, mental, or emotional condition, do you have serious difficulty doing errandsalone such as visiting the doctor? Answer Date of Assessment Author No 07/17/2024 10:45 PM EDT Niesha Gutiérrez RN documented as of this encounter Mental Status * Because of a physical, mental, or emotional condition, do you have serious difficulty concentrating, remembering, or making decisions? (5 years old or older) Answer Entry Date Author No 07/17/2024 10:45 PM EDT Niesha Gutiérrez RN documented in this encounter Discharge Instructions * Discharge Instructions* Aram Sun MD - 08/20/2024 1:39 PM EDT Follow-up with your PCP. If you feel lightheaded or nauseous or have symptoms make sure you sit down so you do not pass out and fall again. Return if worse Also follow-up with Dr. Toi Caban. Call [phone] to arrange follow-up * Attachments The following attachments cannot be sent through Care Everywhere. * Chest Pain: Musculoskeletal (Nepalese) * Fainting (Nepalese) documented in this encounter Medications at Time of Discharge albuterol HFA (PROAIR HFA ; PROVENTIL HFA ; VENTOLIN HFA) 90 mcg/actuation inhaler Inhale 1-2 puffs every 4-6 hours as needed for shortness of breath. 7 g 05/10/2024 documented as of this encounter Discharge Disposition Disposition Code Departure Means Destination Comment s Home or Self Care documented in this encounter Progress Notes * Carlota Wright RN - 08/20/2024 2:09 PM EDT Pt seen and cleared for d/c by ED provider, d/c instructions reviewed, all questions answered. Painmanagement techniques reviewed with pt. Follow-up information provided. IV removed. Pt seen ambulating out of department with a steady gait. * Carlota Wright RN - 08/20/2024 10:17 AM EDT BIBA from bus stop with c/o of Chest pain and an unwitnessed syncopal episode with possible head strike. On Xarelto. C-Collar in place. Hx of tetralogy of fallot, internal defibrillator. Frequent syncopal episodes per pt and MES. 324 mg Aspirin given by EMS. * Aram Sun MD - 08/20/2024 10:05 AM EDT HPI Chief Complaint Patient presents with ??? Chest Pain ??? Syncope Patient with a history of tetralogy of Fallot, pacemaker, frequent episodes of syncope, presents with an episode of syncope today at the bus stop. Unwitnessed. Patient states he hit the back of his head. Also complaining of chronic right sided flank pain radiating to the right abdomen. Prior workups including CAT scans have all been negative. He states when he gets this pain he gets nauseous and he sometimes gets lightheaded and passes out.That is what he believes happened today. He complains of pain at the back of his head where he believes he struck it on the ground. His neckis sore. No weakness numbness or paresthesias. He does not feel dizzy or lightheaded at the moment. No recent acute illness. His main steel cutter is at [facility]. The steel cutter who inserted his pacemaker is Dr. Ramires, here at [facility]. Nancy Coma Scale Score: 15 Patient History Past Medical History: Diagnosis Date ??? Atrial fibrillation (CMS/HCC V24, CMS/HCC V28) DX:Atrial fibrillation (HCC) ??? Depression ??? Diabetes mellitus (CMS/HCC V24, CMS/HCC V28) DX:Diabetes mellitus (HCC) ??? Hypercholesteremia DX:Hypercholesteremia ??? Hypertension DX:Hypertension ??? Right bundle branch block ??? Seizures (CMS/HCC V24, CMS/HCC V28) 01/06/2015 DX:Seizures (HCC) ??? Sleep apnea, obstructive DX:Sleep apnea, obstructive ??? Tetralogy of Fallot DX:Tetralogy of Fallot Past Surgical History: Procedure Laterality Date ??? CARDIAC PACEMAKER PLACEMENT PROCEDURE:CARDIAC PACEMAKER PLACEMENT;COMMENT:[facility] ??? TETRALOGY OF FALLOT REPAIR PROCEDURE:TETRALOGY OF FALLOT REPAIR Family History Problem Relation Name Age of Onset ??? Heart disease Mother ??? Cancer Father Social History Tobacco Use ??? Smoking status: Never ??? Smokeless tobacco: Never Substance Use Topics ??? Alcohol use: No ??? Drug use: No Review of Systems Review of Systems Constitutional: Negative for chills and fever. Respiratory: Negative for cough, chest tightness and shortness of breath. Cardiovascular: Negative for chest pain. Gastrointestinal: Positive for abdominal pain and nausea. Negative for diarrhea and vomiting. Musculoskeletal: Positive for back pain, neck pain and neck stiffness. Right flank pain Skin: Negative for color change. Physical Exam ED Triage Vitals [08/20/24 1016] Temp Heart Rate Resp BP 36.6 ??C (97.9 ??F) 73 20 122/67 SpO2 Temp src Heart Rate Source Patient Position 98 % -- -- -- BP Location FiO2 (%) -- -- Physical Exam Constitutional: Appearance: He is well-developed. HENT: Head: Normocephalic. Comments: Some tenderness to the right side of his occiput without obvious swelling. Skin is intactwithout ecchymosis Neck: Comments: Patient is in c-collar. He has diffuse C-spine tenderness and paraspinous muscle tenderness without crepitus or deformity. No focal or point tenderness Cardiovascular: Rate and Rhythm: Normal rate and regular rhythm. Comments: Systolic murmur Pulmonary: Effort: Pulmonary effort is normal. Breath sounds: Normal breath sounds. Abdominal: Palpations: Abdomen is soft. Comments: Tender right side of abdomen consistent with prior evaluation by myself. Musculoskeletal: General: Normal range of motion. Skin: General: Skin is warm and dry. Findings: No erythema. Neurological: General: No focal deficit present. Mental Status: He is alert and oriented to person, place, and time. ED Course & MDM ED Course as of 08/20/24 1452 August 20, 2024 1316 Troponins are normal [LD] 1316 CT of head and neck unremarkable [LD] ED Course User Index [LD] Aram Sun MD Clinical Impressions as of 08/20/24 1452 Chest pain, unspecified type Syncope and collapse Medical Decision Making Patient with syncope in the setting of tetralogy of Fallot with pacemaker insertion. Long history of similar presentations, typically with negative workup. Differential would include dysrhythmia Vasovagal syncope Hypotension Valve abnormality Also with head trauma on Eliquis. Rule out intracranial hemorrhage Scalp contusion Neck pain Cervical strain versus fracture CT brain and neck ordered. Cardiac workup pending. EKG shows sinus rhythm without ischemic or dysrhythmic changes 1:38 PM. Workup is reassuring. CAT scan of brain and neck showed no acute traumatic abnormalities. Cardiac workup including 2 troponins is negative. He is stable for discharge home Procedures Aram Sun MD 08/20/24 1153 Aram Sun MD 08/20/24 1452 Aram Sun MD 08/20/24 1905 documented in this encounter Plan of Treatment Not on file documented as of this encounter Procedures Procedure Name Priority Date/Time Associated Diagnosis Comments ECG ANNOTATED 08/21/2024 ECG 12-LEAD STAT 08/20/2024 12:19 PM EDT TROPONIN I HIGH SENSITIVITY STAT 08/20/2024 12:[address] CERVICAL SPINE WO CONTRAST STAT 08/20/2024 11:[address] HEAD WO CONTRAST STAT 08/20/2024 1 1:50 AM EDT TROPONIN I HIGH SENSITIVITY STAT 08/20/2024 10:36 AM EDT CBC WITH AUTO DIFFERENTIAL STAT 08/20/2024 10:36 AM EDT CBC AND DIFFERENTIAL STAT 08/20/2024 10:36 AM EDT B-TYPE NATRIURETIC PEPTIDE STAT 08/20/2024 10:36 AM EDT MAGNESIUM STAT 08/20/2024 10:36 AM EDT LIPASE STAT 08/20/2024 10:36 AM EDT COMPREHENSIVE METABOLIC PANEL STAT 08/20/2024 10:36 AM EDT POCT GLUCOSE BLOOD Routine 08/20/2024 10 :29 AM EDT ECG 12-LEAD STAT 08/20/2024 10:18 AM EDT documented in this encounter Results * ECG-Annotated (08/21/2024) us Provider Onbase MD ECG ORDERABLES Final Result * ECG 12 lead (08/20/2024 12:19 PM EDT) Ventricular Rate ECG 75 BPM GEMUSE Atrial Rate 75 BPM GEMUSE P-R Interval 200 ms GEMUSE QRS Duration 174 ms GEMUSE Q-T Interval 466 ms GEMUSE QTc 520 ms GEMUSE P Wave [place] 60 degrees GEMUSE R [place] 107 degrees GEMUSE T [place] 51 degrees GEMUSE ECG Interpretation Normal sinus rhythm Right bundle branch block Abnormal ECG When compared with ECG of 20-AUG-2024 10:18, (unconfirmed) No significant change was found Confirmed by Zuly RAMIRES JOHN ([id number]) on 08/20/2024 7:08:57 PM GEMUSE 08/20/2024 12:1 9 PM EDT 08/20/2024 7:08 PM EDT us Aram Sun MD ECG ORDERABLES Final Result Performing Organization Address [facility] de Phone Number GEMUSE * Troponin I high sensitivity (08/20/2024 12:12 PM EDT) [facility] High Sensitivity Troponin I 5 <=79 ng/L LAB CHEMISTRY METHOD 08/20/2024 12:57 PM EDT [facility] Blood Venous blood specimen / Unknown Venipuncture / Unknown 08/20/2024 12:12 PM EDT 08/20/2024 12:19 PM EDT Narrative [facility] - 08/20/2024 12:57 PM EDT High levels of biotin in samples may falsely decrease hsTroponin values. ??Use caution when interpreting hsTroponin results in patients taking biotin who exhibit renal impairment (eGFR <60) or in patients taking more than 20 mg/day of biotin. us Aram Sun MD LAB BLOOD ORDERABLES Final Res ult Performing Organization Address City/[facility]/ZIP Co de Phone Number [facility] [address] [place] [address], [place] [phone] * CT Cervical Spine wo Contrast (08/20/2024 11:50 AM EDT) Anatomical Region Laterality Modality Spine, C-spine Computed Tomogra phy 08/20/2024 12:1 1 PM EDT Impressions 08/20/2024 12:19 PM EDT No acute cervical spine fracture. -------- FINAL REPORT -------- Dictated By: WANG FISH Dictated Date: 08/20/2024 12:11 ET Assigned Physician: WANG FISH Reviewed and Electronically Signed By: WANG FISH Signed Date: 08/20/2024 12:19 ET Workstation ID: [id number] Transcribed By: Self Edit Transcribed Date: 08/20/2024 [...] visualized. ??Paraspinal muscles are normal. Procedure Note Wang Fish MD - 08/20/2024 PROCEDURE: Cervical spine [...] fracture. -------- FINAL REPORT -------- Dictated By: WANG FISH Dictated Date: 08/20/2024 12:11 ET Assigned Physician: WANG FISH Reviewed and Electronically Signed By: WANG FISH Signed Date: 08/20/2024 12:19 ET Workstation ID: [id number] Transcribed By: Self Edit Transcribed Date: 08/20/2024 12:11 ET Aram Sun MD IMG CT PROCEDURES Final Result * CT Head wo Contrast (08/20/2024 11:50 AM EDT) Anatomical Region Laterality Modality Head and Neck Computed Tomogra phy 08/20/2024 12:3 7 PM EDT Impressions 08/20/2024 12:40 PM EDT No acute intracranial abnormality -------- FINAL REPORT -------- Dictated By: WANG FISH Dictated Date: 08/20/2024 12:37 ET Assigned Physician: WANG FISH Reviewed and Electronically Signed By: WANG FISH Signed Date: 08/20/2024 12:40 ET Workstation ID: [id number] Transcribed By: Self Edit Transcribed Date: 08/20/2024 [...] scalp hematoma or skull fracture. Procedure Note Wang Fish MD - 08/20/2024 PROCEDURE: HEAD CT [...] abnormality -------- FINAL REPORT -------- Dictated By: WANG FISH Dictated Date: 08/20/2024 12:37 ET Assigned Physician: WANG FISH Reviewed and Electronically Signed By: WANG FISH Signed Date: 08/20/2024 12:40 ET Workstation ID: [id number] Transcribed By: Self Edit Transcribed Date: 08/20/2024 12:37 ET Aram Sun MD [facility] CT PROCEDURES Final Result * (ABNORMAL) CBC auto differential (08/20/2024 10:36 AM EDT) [facility] WBC 5.7 4.8 - 10.8 K/[facility] LAB HEMETOLOGY METHOD 08/20/2024 11:14 AM EDT [facility] RBC 3.90(L) 4.50 - 5.50 M/[facility] LAB HEMETOLOGY METHOD 08/20/2024 11:14 AM EDT [facility] Hemoglobin 10.9(L) 13.5 - 17.5 g/dL LAB HEMETOLOGY METHOD 08/20/2024 11:14 AM [facility] Hematocrit 33.5(L) 42.0 - 54.0 % LAB HEMETOLOGY METHOD 08/20/2024 11:14 AM [facility] MCV 86.8 79.0 - 98.0 FL LAB HEMETOLOGY METHOD 08/20/2024 11:14 AM [facility] MCH 28.2 27.0 - 32.0 pcg LAB HEMETOLOGY METHOD 08/20/2024 11:14 AM [facility] MCHC 32.5 32.0 - 37.0 g/dL LAB HEMETOLOGY METHOD 08/20/2024 11:14 AM [facility] RDW 14.2 11.0 - 15.0 % LAB HEMETOLOGY METHOD 08/20/2024 11:14 AM [facility] Platelets 76(L) 130 - 400 K/mcL LAB HEMETOLOGY METHOD 08/20/2024 11:14 AM [facility] MPV 11.7(H) 7.0 - 11.0 FL LAB HEMETOLOGY METHOD 08/20/2024 11:14 AM [facility] NRBC 0.0 <1.0 % LAB HEMETOLOGY METHOD 08/20/2024 11:14 AM [facility] NRBC Absolute 0.00 <0.10 K/mcL LAB HEMETOLOGY METHOD 08/20/2024 11:14 AM [facility] Neutrophils Relative 66.1 % LAB HEMETOLOGY METHOD 08/20/2024 11:14 AM [facility] Lymphocytes Relative 16.3 % LAB HEMETOLOGY METHOD 08/20/2024 11:14 AM [facility] Monocytes Relative 10.3 % LAB HEMETOLOGY METHOD 08/20/2024 11:14 AM [facility] Eosinophils Relative 4.8 % LAB HEMETOLOGY METHOD 08/20/2024 11:14 AM EDT [facility] Basophils Relative 1.1 % LAB HEMETOLOGY METHOD 08/20/2024 11:14 AM EDT [facility] Immature Granulocytes Relative 1.4 % LAB HEMETOLOGY METHOD 08/20/2024 11:14 AM EDT [facility] Neutrophils Absolute 3.74 1.50 - 7.00 K/mcL LAB HEMETOLOGY METHOD 08/20/2024 11:14 AM EDT [facility] Lymphocytes Absolute 0.92(L) 1.00 - 5.00 K/mcL LAB HEMETOLOGY METHOD 08/20[facility]2024 11:[facility] Monocytes Absolute 0.58 0.20 - 1.00 K/mcL LAB HEMETOLOGY METHOD 08/20/2024 11:14 AM EDT [facility] Eosinophils Absolute 0.27 0.00 - 0.50 K/mcL LAB HEMETOLOGY METHOD 08/20/2024 11:14 AM EDT [facility] Basophils Absolute 0.06 0.00 - 0.20 K/mcL LAB HEMETOLOGY METHOD 08/20/2024 11:14 [facility] Immature Granulocytes Absolute 0.08(H) 0.00 - 0.03 K/mcL LAB HEMETOLOGY METHOD 08/20/2024 11:14 AM EDT [facility] Blood Venous blood specimen / Unknown Venipuncture / Unknown 08/20/2024 10:36 AM EDT 08/20/2024 10:51 AM EDT us Aram Sun MD LAB BLOOD ORDERABLES Final Res ult [facility] [address] [place] [address], * B-type natriuretic peptide (08/20/2024 10:36 AM EDT) BNP 91 <=100 pcg/mL LAB CHEMISTRY METHOD 08/20/2024 11:34 AM EDT [facility] Blood Venous blood specimen / Unknown Venipuncture / Unknown 08/20/2024 10:36 AM EDT 08/20/2024 10:52 AM EDT us Aram Sun MD LAB BLOOD ORDERABLES Final Res ult [facility] [address] [place] [address], [place] [phone] * Magnesium (08/20/2024 10:36 AM EDT) Pathologist [facility] Magnesium 1.9 1.9 - 2.6 mg/dL LAB CHEMISTRY METHOD 08/20/2024 11:29 AM EDT [facility] Blood Venous blood specimen / Unknown Venipuncture / Unknown 08/20/2024 10:36 AM EDT 08/20/2024 10:51 AM EDT us Aram Sun MD LAB BLOOD ORDERABLES Final Res ult Performing Organization Address City/[facility]/ZIP Co de Phone Number [facility] [address] [place] [address], [place] [phone] * Lipase (08/20/2024 10:36 AM EDT) Pathologist [facility] Lipase 29 13 - 75 unit/L LAB CHEMISTRY METHOD 08/20/2024 11:29 AM EDT [facility] Blood Venous blood specimen / Unknown Venipuncture / Unknown 08/20/2024 10:36 AM EDT 08/20/2024 10:51 AM EDT us Aram Sun MD LAB BLOOD ORDERABLES Final Res ult [facility] [address] [place] [address], * (ABNORMAL) Comprehensive metabolic panel (08/20/2024 10:36 AM EDT) Sodium 140 133 - 145 mmol/L LAB CHEMISTRY METHOD 08/20/2024 11:29 AM [facility] Potassium 4.3 3.5 - 5.5 mmol/L LAB CHEMISTRY METHOD 08/20/2024 11:29 AM [facility] Chloride 110 96 - 110 mmol/L LAB CHEMISTRY METHOD 08/20/2024 11:29 AM [facility] CO2 27 21 - 32 mmol/L LAB CHEMISTRY METHOD 08/20/2024 11:29 AM [facility] Anion Gap 3 3 - 11 LAB CHEMISTRY METHOD 08/20/2024 11:29 AM [facility] Glucose 117(H) 70 - 100 mg/dL LAB CHEMISTRY METHOD 08/20/2024 11:29 AM [facility] BUN 15 5 - 25 mg/dL LAB CHEMISTRY METHOD 08/20/2024 11:29 AM [facility] Creatinine 1.13 0.70 - 1.30 mg/dL LAB CHEMISTRY METHOD 08/20/2024 11:29 AM [facility] eGFR 73 >=60 mL/min/1. 73m2 LAB CHEMISTRY METHOD 08/20/2024 11:29 AM [facility] Comment:Calculation based on the Chronic Kidney Disease Epidemiology Collaboration (CKD-EPI) equation refit without adjustment for race. BUN/Creatinine Ratio 13.3 LAB CHEMISTRY METHOD 08/20/2024 11:29 AM [facility] Calcium 7.7(L) 8.5 - 10.5 mg/dL LAB CHEMISTRY METHOD 08/20/2024 11:29 AM [facility] AST (SGOT) 13 10 - 42 unit/L LAB CHEMISTRY METHOD 08/20/2024 11:29 AM EDT [facility] ALT (SGPT) 21 10 - 60 unit/L LAB CHEMISTRY METHOD 08/20/2024 11:29 AM EDT [facility] Alkaline Phosphatase 68 42 - 121 unit/L LAB CHEMISTRY METHOD 08/20/2024 11:29 AM EDT [facility] Total Protein 6.2 6.0 - 8.0 g/dL LAB CHEMISTRY METHOD 08/20/2024 11:29 AM EDT [facility] Albumin 3.4 3.2 - 5.0 g/dL LAB CHEMISTRY METHOD 08/20/2024 11:29 AM EDT [facility] Total Bilirubin 0.5 0.0 - 1.4 mg/dL LAB CHEMISTRY METHOD 08/20/2024 11:29 AM EDT [facility] Blood Venous blood specimen / Unknown Venipuncture / Unknown 08/20/2024 10:36 AM EDT 08/20/2024 10:51 AM EDT us Aram Sun MD LAB BLOOD ORDERABLES Final Res ult [facility] [address] [place] [address], * Troponin I high sensitivity (08/20/2024 10:36 AM EDT) High Sensitivity Troponin I 4 <=79 ng/L LAB CHEMISTRY METHOD 08/20/2024 11:28 AM EDT [facility] Blood Venous blood specimen / Unknown Venipuncture / Unknown 08/20/2024 10:36 AM EDT 08/20/2024 10:52 AM EDT Narrative [facility] - 08/20/2024 11:28 AM EDT High levels of biotin in samples may falsely decrease hsTroponin values. ??Use caution when interpreting hsTroponin results in patients taking biotin who exhibit renal impairment (eGFR <60) or in patients taking more than 20 mg/day of biotin. Aram Sun MD LAB BLOOD ORDERABLES Final Res ult Performing Organization Address [facility]/ZIP Co de Phone Number [facility] [address] [place] [address], [place] [phone] * (ABNORMAL) POCT Glucose, blood (08/20/2024 10:29 AM EDT) Pathologist [facility] Glucose POCT 120(H) 70 - 100 mg/dL 08/20/2024 10:30 AM EDT [facility] Blood Capillary blood specimen / Unknown 08/20/2024 10:29 AM EDT 08/20/2024 10:31 AM EDT Generic Provider Poct LAB POINT OF CARE TEST DOCKED DEVICE UNSOLICITED RESULTS Final Result Performing Organization Address [facility] de Phone Number [facility] [address] [place] [address], [place] [phone] * ECG 12 lead (08/20/2024 10:18 AM EDT) [facility] Signature Ventricular Rate ECG 70 BPM GEMUSE Atrial Rate 70 BPM GEMUSE P-R Interval 226 ms GEMUSE QRS Duration 170 ms GEMUSE Q-T Interval 468 ms GEMUSE QTc 505 ms GEMUSE P Wave [place] 65 degrees GEMUSE R [place] 108 degrees GEMUSE T [place] 70 degrees GEMUSE ECG Interpretation Sinus rhythm with 1st degree A-V block Right bundle branch block Abnormal ECG When compared with ECG of 24-JUL-2024 02:13, No significant change was found Confirmed by Zuly RAMIRES JOHN ([id number]) on 08/20/2024 7:05:10 PM GEMUSE 08/20/2024 10:1 8 AM EDT 08/20/2024 7:05 PM EDT Aram Sun MD ECG ORDERABLES Final Result GEMUSE documented in this encounter Visit Diagnoses Diagnosis Chest pain, unspecified type- Primary Syncope and collapse documented in this encounter Administered Medications Inactive Administered Medications - up to 3 most recent administrations Medication Order MAR Action Action Date Dose Rate Site ketorolac (TORADOL) injection 15 mg 15 mg, intravenous, Once, On 08/20/24 at 1310, For 1 dose Given 08/20/2024 1:18 PM EDT 15 mg ondansetron (PF) (ZOFRAN) injection 4 mg 4 mg, intravenous, Once, On Mon08/20/24 at 1123, For 1 dose Given 08/20/2024 11:34 AM EDT 4 mg documented in this encounter Active and Recently Administered Medications Times are shown in EDT. Scheduled Medication Order 08/18/2024 08/19/2024 08/20/2024 ketorolac (TORADOL) injection 15 mg (COMPLETED) 15 mg, intravenous, Once, On 08/20/24 at 1310, For 1 dose 1318 (Given - Provid er: Carlota Wright RN) ondansetron (PF) (ZOFRAN) injection 4 mg (COMPLETED) 4 mg, intravenous, Once, On e 08/20/24 at 1123, For 1 dose 1134 (Given - Provid er: Carlota Wright RN) documented in this encounter Orders Lab Orders Without Results Count Last Ordered D ate First Ordered Date POCT GLUCOSE, BLOOD 1 08/20/2024 documented in this encounter Care Teams Vp Account Director Relationship Specialty Start Date End Date Amari Vyas DO [address] [place] [phone] PCP - General Internal Medicine 11/11/20 documented as of this encounter
[2024-08-22 16:20] LABS: Appearance Urine Clear; Color Urine Yellow; Glucose Urine UA Negative (Negative); Leukocyte Esterase Urine Negative (Negative); Nitrite Urine Negative (Negative); PH 5.5 (5.0-9.0); Urine Blood Negative (Negative); Urine Ketones Trace mg/dL (Negative); Urine Protein Negative (Neg-Trace)
[2024-08-22 16:22] LABS: Bacteria Urine None Seen (None Seen); Hyaline Casts Urine 0-2 /LPF (0-2); RBC Urine 0-2 /HPF (0-2); Squamous Epithelial Cell Urine 0-2 /HPF (0-2); WBC Urine 0-5 /HPF (0-5)
[2024-08-22 17:36] LABS: Microalbum/Creatinine Ratio Ur 2.9 ug/mg cr (<30)
== END 2024-08-22 16:12 | disposition home or self-care (01) ==
LOC: HO.HHCLNP 16:11
PROVIDERS: Visit Provider Student in an Organized Health Care Education/Training Program
DX: E11.65 Type 2 diabetes mellitus with hyperglycemia (principal); R10.10 Upper abdominal pain, unspecified
CPT/HCPCS: 81001; 82043; 82570

== ENCOUNTER 2024-09-02 07:29 | Outpatient (REF) | payer OTHER, SELFPAY ==
--- OUTSIDE RECORDS SUMMARY | 2024-09-02 07:32 | XMS_ITS | Encounter Summary ---
Author Organization [employer] Address [address] [place] [address] [place] [address] Care Team Providers Care Network Liaison Name Role Phone Lauren Whittaker MD Primary Care Pro vider Encounter Details Date Type Department Care Team ([facility] st Contact Info) Description 01/30/2024 Telephone [facility] [address] [place], [place] [phone] Ioana Antonio, PharmD [address] [place] [address] Social History Tobacco Use Types Packs/Day Years [...] 12:56 PM EST [place] [facility] [place] . States is returning a missed call. Best contact # [phone]. * Telephone Encounter - Ioana Antonio PharmD - 01/30/2024 3:10 PM EDT Please assist in obtaining discharge [place] [facility] [place] on 01/27/2024, and [facility] recent discharge (exact date unknown). Thank you documented in this encounter Plan of Treatment Upcoming Encounters Date Type Department Care Team (Late st Contact Info) Description 09/17/2024 2:30 PM EDT Medication Management [facility] [address] [place] [id number] 10/24/2024 11:30 AM EDT Office Visit [facility] [address] [place] [phone] Lauren Whittaker MD [address] [place] [phone] documented as of this encounter Visit Diagnoses Not on filedocumented in this encounter Additional Health Concerns Assessment Noted Time PHQ-9 Depression Total Score: 0 11/15/19 24 9:31 AM EDT documented as of this encounter Care Teams Network Liaison Relationship Specialty Start Date End Date Lauren Whittaker MD [address] [place] [address] PCP - General Internal Medicine 11/15/23 [facility] 03/08/24 documented as of this encounter
== END 2024-09-02 07:30 | disposition home or self-care (01) ==
LOC: HO.US 07:29
PROVIDERS: PCP Student in an Organized Health Care Education/Training Program; Visit Provider Student in an Organized Health Care Education/Training Program
DX: Z13.89 Encounter for screening for other disorder (principal)

== ENCOUNTER 2024-09-02 07:46 | Emergency (ER) | payer OTHER, SELFPAY ==
--- NOTE | ~2024-09-02 | CT_ITS ---
EXAMINATION: CT CERVICAL SPINE WITHOUT CONTRAST CLINICAL INFORMATION: Fall, neck pain. COMPARISON: Numerous priors, most recently 07/30/2024. TECHNIQUE: Spiral CT imaging of the cervical spine performed in axial plane without contrast. Multiplanar reformatted images were constructed from the axial data set. This CT examination was performed using dose optimization techniques as appropriate, variously including the following: *Automated exposure control *Adjustment of mA and/or kV according to patient size (this includes techniques or standardized protocols for targeted exams where dose is matched to indication/reason for exam; i.e. extremities or head) *Use of iterative reconstruction technique FINDINGS: CORONAL ALIGNMENT: -There is a mild levoconvex scoliosis. SAGITTAL ALIGNMENT: -Normal lordosis. -And no evidence of traumatic subluxation. -Minimal degenerative retrolisthesis of C3 on C4, and anterolisthesis C5 on C6. C1-C2 AND CRANIOCERVICAL JUNCTION: -Intact and aligned. There are moderate degenerative changes at the atlantoaxial joint with ventral osteophytes. VERTEBRAL BODIES AND FACETS: -No fractures, compression deformities, or suspicious bone lesions. No traumatic malalignment. -There are large ventral disc and vertebral osteophytes throughout the cervical spine, some fused (i.e. spanning C4-C7), in keeping with DISH. -Normal facet alignment with multilevel degenerative facet change. DISCS: -Moderate disc degeneration present C5-6. There is otherwise mild disc degeneration. CENTRAL CANAL: -Suspect high-grade central canal stenosis at C3-4, and possibly at C5-6 and C6-7. PREVERTEBRAL AND PARAVERTEBRAL SOFT TISSUES: -No prevertebral or paravertebral soft tissue swelling or edema. No abnormal fluid collection. -Osteophytes at C3-C5 indent upon the hypopharynx, unchanged. -Normal thyroid without nodule. LUNG APICES: -Not included in the imaging. CT/CT cervical spine wo IV con IMPRESSION: 1. No CT evidence of acute cervical spine fracture or injury. 2. Diffuse degenerative spondylosis with findings in keeping with DISH. There has been no significant interval change in the appearance from the prior exams. 3. Osteophytes at C3-C5 indent upon the hypopharynx, unchanged. Electronically signed by: Lewis Ford MD 09/02/2024 10:41 AM EDT
--- NOTE | ~2024-09-02 | XR_ITS ---
EXAMINATION: XR CHEST CLINICAL INFORMATION: cp COMPARISON: 07/30/2024 TECHNIQUE: Frontal view of the chest was obtained. FINDINGS: Left-sided pacer/AICD device in place, with 3 leads extending into the right atrium and right ventricle. Tiny prior median sternotomy wires. There is mild cardiac enlargement, stable. Mediastinal and hilar contours appear normal. The lungs are clear bilaterally. No pneumothorax or effusion. No focal osseous or soft tissue abnormality. XR/XR chest 1V IMPRESSION: 1. Mild cardiomegaly with 3-lead AICD. Small sternal wires, indicating a remote sternotomy. 2. No active pulmonary disease. Electronically signed by: Lewis Ford MD 09/02/2024 08:19 AM EDT
--- NOTE | ~2024-09-02 | CT_ITS ---
EXAMINATION: CT HEAD WITHOUT CONTRAST CLINICAL INFORMATION: Altered mental status. Fall. COMPARISON: Numerous priors, most recently 07/30/2024. TECHNIQUE: Contiguous axial imaging was performed from the skull base to vertex without intravenous administration of contrast. This CT examination was performed using dose optimization techniques as appropriate, variously including the following: *Automated exposure control *Adjustment of mA and/or kV according to patient size (this includes techniques or standardized protocols for targeted exams where dose is matched to indication/reason for exam; i.e. extremities or head) *Use of iterative reconstruction technique FINDINGS: There is no evidence of intracranial hemorrhage or extra-axial fluid collection. There is no mass effect, or edema. No CT evidence of acute territorial infarct. Ventricles, sulci, and cisterns are normal in size and configuration for patient age. No hydrocephalus. No midline shift. There is a stable 8 mm hyperattenuating focus abutting the frontal horn of the left lateral ventricle, without definite surrounding gliosis, most likely a focus of calcification. This unchanged from prior exams. This may represent a cavernous malformation or nonspecific calcification. Doubtful clinical significance. Mild to moderate patchy and confluent white matter hypodensities in the supratentorial region, in keeping with small vessel ischemia. 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 Normal sella. Mild atheromatous calcification of the bilateral carotid siphons. Globes and orbital contents image normally within the confines of motion artifact. No acute extracranial soft tissue abnormalities. Fatty change of the parotid glands. No significant paranasal sinus disease. Mild opacification of the right mastoid tip. Under pneumatization of the left mastoid air cells. Tympanic cavities are normally aerated. No suspicious bony abnormalities. No fractures seen. CT/CT head/brain wo IV con IMPRESSION: No acute intracranial abnormalities. Stable chronic findings. Electronically signed by: Lewis Ford MD 09/02/2024 10:24 AM EDT
[2024-09-02 07:48] VITALS: BP 91/40; PULSE 74; RESP 16; TEMP 36.7; O2SAT 98; BMI 35.5
--- NOTE | 2024-09-02 07:49 | ECG_ITS ---
Test Reason : CP Blood Pressure : */* mmHG Vent. Rate : 64 BPM Atrial Rate : 64 BPM P-R Int : 194 ms QRS Dur : 172 ms QT Int : 482 ms P-R-T Axes : 63 106 67 degrees QTcB Int : 497 ms Normal sinus rhythm with intermittent atrial pacing Right bundle branch block Abnormal ECG When compared with ECG of 30-Jul-2024 11:33, No significant change was found Referred By: Generic ED Physician Electronically Signed By: PEPE CABALLERO
[2024-09-02 08:04] VITALS: BP 106/53; PULSE 64; RESP 16; O2SAT 97
[2024-09-02 08:06] LABS: MANUAL DIFF FLAG NO
[2024-09-02 08:09] LABS: Basophils Percent Auto 0.8 % (0-2); Eosinophils Absolute Auto 0.3 X10*3/uL (0.0-0.4); Eosinophils Percent Auto 5.6 % (0-4); Hematocrit 30.7 % (42.0-52.0); Hemoglobin 10.6 g/dl (14.0-18.0); Imm Gran Abs Auto 0.06 X10*3/uL (0.00-0.03); Imm Gran Pct Auto 1.1 % (0.0-0.4); Lymphocytes Percent Auto 19.4 % (20-40); Mean Corpuscular HGB Conc 34.5 g/dl (31.0-36.0); Mean Corpuscular Hemoglobin 29.1 pg (27.0-33.0); Mean Corpuscular Volume 84.3 fL (80.0-98.0); Mean Platelet Volume 11.2 fL (9.4-12.4); Monocytes Absolute Auto 0.6 X10*3/uL (0.1-1.2); Monocytes Percent Auto 11.3 % (2-11); Neutrophils Absolute Auto 3.3 x10*3/uL (2.0-8.3); Neutrophils Percent Auto 61.8 % (45-73); Platelet Count 71 X10*3/uL (160-400); Red Blood Count 3.64 X10*6/uL (4.60-5.80); Red Cell Distribution Width 14.1 % (11.0-16.0); White Blood Count 5.3 X10*3/uL (4.8-10.8)
--- NOTE | 2024-09-02 08:10 | PC.NURSE ---
patient was at scheduled outpatient US for his abdomen, states he has been having pain in his stomach after pooping and peeing . ?syncopal episode while waiting for US prior to arrival. denies dizziness prior to fall, endorses neck pain and chest pain radiating down left arm. alert and oriented, no obvious signs/symptoms of distress noted. call wallace within reach.
[2024-09-02 08:14] LABS: INTERNATIONAL NORM RATIO 1.5 (0.9-1.1)
[2024-09-02 08:22] LABS: Alanine Aminotransferase 16 U/L (0-40); Albumin Level 3.8 g/dL (3.5-5.0); Alkaline Phosphatase 59 U/L (39-117); Anion Gap 12 (12-20); Aspartate Amino Transferase 15 U/L (5-37); Bilirubin Total 0.4 mg/dL (0.0-1.0); Blood Urea Nitrogen 14 mg/dL (9-16); Calcium 7.9 mg/dL (8.4-10.2); Carbon Dioxide 26 mmol/L (22-29); Chloride 111 mmol/L (96-108); Creatinine Clr Calc Pharmacy 80.3; Estimated Glomerular Filt Rate > 60; Glucose Random 122 mg/dL (60-115); Sodium 145 mmol/L (135-145); Total Protein 5.9 g/dL (6.5-8.0)
[2024-09-02 08:31] LABS: Troponin-I High Sensitivity < 2.7 ng/L (<3.5-35.0)
[2024-09-02 08:44] LABS: Influenza A PCR NEGATIVE (Negative); Influenza B PCR NEGATIVE (Negative); Resp Syncy Virus RNA Qual PCR NEGATIVE (Negative); SARS COV2 PCR INHOUSE NEGATIVE (Negative)
[2024-09-02 09:01] VITALS: BP 109/60; PULSE 60; RESP 14; TEMP 36.6; O2SAT 96
--- NOTE | 2024-09-02 09:02 | PC.NURSE ---
provider at bedside to interrogate pacemaker, patient continues to rest quietly in room
[2024-09-02] MEDS: Ondansetron ODT 4 MG TAB.RAPDIS TRANSLINGU (09:26)
[2024-09-02] MEDS: Acetaminophen 325 MG TABLET 975 MG PO (09:30)
--- NOTE | 2024-09-02 10:08 | ED.CHESTPAIN ---
HPI - Chest Pain General Chief Complaint: Chest Pain Stated Complaint: Fall, Head Injury Time Seen by Provider: 09/02/24 08:44 History of Present Illness HPI narrative: Patient is a 64-year-old male with a history of depression history of a pacemaker status post AICD placement presented today with having a possible syncopal episode. Patient from home. Question head injury. There is no focal weakness. No nausea no vomiting. No chest pain or diaphoresis moving all extremity at this time. Has a history of somatoform disorder. Related Data Home Medications ?Medication ?Instructions ?Recorded ?Confirmed albuterol sulfate 90 mcg/actuation 2 puff inhalation Q4H PRN 08/19/22 01/01/23 aerosol inhaler Shortness Of Breath hydroxyzine pamoate 50 mg capsule 50 mg PO BID Anxiety / Nausea 08/19/22 01/01/23 nitroglycerin 0.4 mg sublingual 0.4 mg sublingual Q5M PRN Chest 08/19/22 01/01/23 tablet Pain sotalol 80 mg tablet 80 mg PO BID 08/19/22 01/01/23 tamsulosin 0.4 mg capsule 0.4 mg PO BEDTIME 08/19/22 01/01/23 levothyroxine 75 mcg tablet 75 mcg PO DAILY@0600 09/08/22 01/01/23 risperidone 1 mg tablet 1.5 mg PO BEDTIME 09/08/22 01/01/23 rivaroxaban 20 mg tablet (Xarelto) 20 mg PO DAILY@1800 09/08/22 01/01/23 acetaminophen 325 mg tablet 650 mg PO Q4H PRN Fever Or Pain 01/01/23 01/01/23 aluminum-mag hydroxide-simethicone 10 ml PO Q4H PRN Constipation 01/01/23 01/01/23 400 mg-400 mg-40 mg/5 mL oral susp (Mylanta Maximum Strength) aspirin 81 mg tablet,delayed 81 mg PO DAILY 01/01/23 01/01/23 release bisacodyl 5 mg tablet,delayed 10 mg PO BEDTIME PRN Constipation 01/01/23 01/01/23 release calcium carbonate (Tums) 300 mg PO Q4H PRN Dyspepsia 01/01/23 01/01/23 cyclobenzaprine 5 mg tablet 5 mg PO TID PRN muscle spasms 01/01/23 01/01/23 escitalopram oxalate 20 mg tablet 20 mg PO DAILY 01/01/23 01/01/23 gabapentin 300 mg capsule 300 mg PO BID 01/01/23 01/01/23 magnesium hydroxide 400 mg/5 mL 30 ml PO DAILY PRN Constipation 01/01/23 01/01/23 oral suspension melatonin 10 mg tablet 10 mg PO BEDTIME PRN Insomnia 01/01/23 01/01/23 metformin 500 mg tablet 500 mg PO DAILY 01/01/23 01/01/23 ondansetron HCl 4 mg tablet 4 mg PO Q4H PRN nausea and 01/01/23 01/01/23 vomitting quetiapine 100 mg tablet 100 mg PO BEDTIME 01/01/23 01/01/23 sumatriptan succinate 50 mg tablet 50 mg PO BID PRN migraines 01/01/23 01/01/23 tramadol 50 mg tablet 50 mg PO Q6H PRN migraines 01/01/23 01/01/23 trazodone 50 mg tablet 25 mg PO BEDTIME 01/01/23 01/01/23 hydroxyzine HCl 50 mg tablet 50 mg PO BEDTIME 12/26/23 trazodone 150 mg tablet 150 mg PO BEDTIME 12/26/23 Previous Rx's ?Medication ?Instructions ?Recorded isosorbide mononitrate 30 mg 30 mg PO DAILY #0 tabs 09/22/21 tablet,extended release 24 hr ezetimibe 10 mg tablet 10 mg PO DAILY 7 days #7 tabs 08/24/22 oxycodone 5 mg tablet 5 mg PO BID PRN pain #4 tabs 01/01/23 prednisone 20 mg tablet 20 mg PO DAILY #5 tabs 01/01/23 cyclobenzaprine 10 mg tablet 10 mg PO TID PRN muscle spasm #10 08/31/23 tabs acetaminophen 325 mg capsule 325 mg PO Q4H PRN pain #30 caps 09/30/23 (Tylenol) lidocaine 5 % topical patch 1 patch topical DAILY PRN pain #15 09/30/23 ea meclizine 25 mg tablet 25 mg PO DAILY PRN dizziness #14 09/30/23 tabs miscellaneous medical supply #1 ea 12/26/23 naloxone 4 mg/actuation nasal 4 mg intranasal Q2M PRN opioid 12/26/23 spray (Narcan) overdose #2 ea oxycodone-acetaminophen 5 mg-325 1 tab PO Q8H PRN pain (scale score 24/24 mg tablet 7-10) 7 days #20 tabs Allergies Allergy/AdvReac Type Severity Reaction Status Date / Time aripiprazole [From Abilify] Allergy Severe Rash Verified 09/02/24 07:50 peas Allergy Severe HIVES Verified 09/02/24 07:50 atorvastatin [From Lipitor] Allergy Intermediate Hives Verified 09/02/24 07:50 bee pollen [bee stings] AdvReac Severe Anaphylaxis Verified 09/02/24 07:50 Review of Systems Review of Systems: Positive possible syncopal episode [facility] Past Medical History Attestation statement: The following information was validated with the patient. Medical History Somatoform disorder Depression with suicidal ideation Sleep apnea Seizure RBBB Cardiac defibrillator in place Artificial cardiac pacemaker Hyperthyroidism Hyperlipidemia History of ETOH abuse Hypertension GERD (gastroesophageal reflux disease) Diabetes Developmental delay, mild Depression COPD (chronic obstructive pulmonary disease) Asthma Anxiety Surgical History History of cardiac cath Social History Social History Household Members: Other Household Members Other:: 2 roommates Housing: Apartment Housing Other:: Sober House Do you presently have visiting nurse or other home services: No Alcohol intake: never Patient Tobacco Use Status: Never used Tobacco Tobacco use type: Cigarette Second Hand Smoke Exposure: No Substance Use Type: Former Substance User, Prescription Drugs and Caffiene Advance Directives: No Advance Directives Information Provided: Yes Do you have a plan to hurt others: No Plan service: No Current occupational status: disabled Sexual orientation: Decline to Answer Physical Exam Vital Signs: Vital Signs: Last Vital Signs Temp 97.3 F 09/02/24 12:11 Pulse 78 09/02/24 12:11 Resp 14 09/02/24 12:11 BP 119/66 09/02/24 12:11 Pulse Ox 96 09/02/24 12:11 O2 Del Method Room Air 09/02/24 12:11 BMI result Body Mass Index 35.5 Appearance: Alert. Oriented X3. No acute distress. Eyes: Pupils equal, round and reactive to light. ENT: Pharynx normal. Neck: Normal inspection. Neck supple. No lymph nodes noted. No crepitus CVS: Normal heart rate and rhythm. Pulses normal. Normal S1 and S2 Respiratory: No respiratory distress. Breath sounds normal. No Wheezing. No rales Abdomen: Soft and nontender. No rigidity. No distention. good BS x4 Skin: Skin warm and dry. Normal skin color. Normal skin turgor. Extremities: No lower extremity edema. Neurovascular intact to all extremities. No Lacerations. No Rash Neuro: Oriented X 3. No motor deficit. No sensory deficit. Moving all extermities. No slurred speech Medications Administered Discontinued Medications Generic Name Dose Route Start Last Admin Trade Name Freq PRN Reason Stop Dose Admin Acetaminophen 975 mg 09/02/24 09:27 09/02/24 09:30 Acetaminophen 325 Mg Tablet PO 09/02/24 09:28 975 mg ONCE ONE Administration Ondansetron HCl 4 mg 09/02/24 09:24 09/02/24 09:26 Ondansetron Odt 4 Mg Tab.Rapdis TRANSLINGU 09/02/24 09:25 4 mg ONCE ONE Administration Medical Decision Making Medical Decision Making [facility] Narrative: I interrogated patient's defibrillator there is there is no evidence of any ventricular tachycardia. He has no ventricular pacing. My interpretation patient's EKG showed a sinus rhythm heart rate was 70 there is a right bundle branch block it is not acutely changed from previous EKGs. Because patient is on Xarelto. CT scan of the head and C-spine was ordered. Patient's electrolytes ordered. In no acute distress. Patient's CT scan of the head and C-spines all both negative. On blood thinner unlikely to have a PE. Patient AICD was interrogated. Per the report there is no detectable ventricular tachycardia. There is no shocks delivered. There is no arrhythmia. Patient's troponin is negative. COVID flu RSV are negative. My interpretation patient's chest x-ray is negative. Will discharge patient home. Close follow-up outpatient basis Differential Diagnosis Differential Diagnoses: The differential diagnosis associated with the presentation includes Fall syncope Admission/Observation Consideration of admission/observation: Escalation of care including admission/observation considered Lab Data [facility] Lab Attestation statement: I reviewed the patient's lab results. 09/02/24 08:03 09/02/24 08:03 Labs: Lab Results 09/02/24 Range/Units 08:03 WBC 5.3 (4.8-10.8) X10*3/uL RBC 3.64 L (4.60-5.80) X10*6/uL Hgb 10.6 L (14.0-18.0) g/dl Hct 30.7 L (42.0-52.0) % MCV 84.3 (80.0-98.0) fL MCH 29.1 (27.0-33.0) pg MCHC 34.5 (31.0-36.0) g/dl RDW 14.1 (11.0-16.0) % Plt Count 71 L (160-400) X10*3/uL MPV 11.2 (9.4-12.4) fL Immature Gran % (Auto) 1.1 H (0.0-0.4) % Neut % (Auto) 61.8 (45-73) % Lymph % (Auto) 19.4 L (20-40) % [place] % (Auto) 11.3 H (2-11) % Eos % (Auto) 5.6 H (0-4) % Baso % (Auto) 0.8 (0-2) % Lymph # (Auto) 1.0 L (1.2-4.9) X10*3/uL [place] # (Auto) 0.6 (0.1-1.2) X10*3/uL Eos # (Auto) 0.3 (0.0-0.4) X10*3/uL Baso # (Auto) 0.0 (0.0-0.2) X10*3/uL Abs Immat Gran (auto) 0.06 H (0.00-0.03) X10*3/uL Absolute Neuts (auto) 3.3 (2.0-8.3) x10*3/uL Absolute Nucleated RBC 0.000 (0.0-0.012) X10*3/uL Nucleated RBC % (auto) 0.0 (0.0-0.2) /100WBC PT 17.0 H D (10.9-12.4) SEC INR 1.5 H (0.9-1.1) Sodium 145 (135-145) mmol/L Potassium 4.0 (3.3-5.1) mmol/L Chloride 111 H (96-108) mmol/L Carbon Dioxide 26 (22-29) mmol/L Anion Gap 12 (12-20) BUN 14 (9-16) mg/dL Creatinine 1.16 (0.5-1.4) mg/dL Estim Creat Clear Calc 80.3 Estimated GFR > 60 Random Glucose 122 H (60-115) mg/dL Calcium 7.9 L (8.4-10.2) mg/dL Total Bilirubin 0.4 (0.0-1.0) mg/dL AST 15 (5-37) U/L ALT 16 (0-40) U/L Alkaline Phosphatase 59 (39-117) U/L Troponin I High Sens < 2.7 (<3.5-35.0) ng/L Total Protein 5.9 L (6.5-8.0) g/dL Albumin 3.8 (3.5-5.0) g/dL Influenza Type A (PCR) NEGATIVE (Negative) Influenza Type B (PCR) NEGATIVE (Negative) RSV RNA Qual (PCR) NEGATIVE (Negative) SARS-CoV-2 RNA (RT-PCR) NEGATIVE (Negative) Independent Interpretation I performed an independent interpretation of an: EKG (Sinus heart rate is 80 there is a right bundle branch block noted. There is no acute ST segment elevation. There is T-wave inversion. Old.) and Plain X-Ray (Chest x-ray grossly negative for pneumonia pneumothorax) Independent Historian Clinical information obtained from an independent historian. History obtained from or confirmed by: EMS External Record Review External record reviewed: Inpatient record Chronic Conditions Patient?s care impacted by: Hypertension History of irregular heartbeat Social Determinants Patient?s care significantly limited by Social Determinants of Health including: Problems related to primary support group Discharge Plan Discharge Clinical Impression: Chest pain, Syncope Patient Disposition: Home, Self-Care Instructions: Chest Pain (ED), Syncope (DC) Prescriptions: No Action isosorbide mononitrate 30 mg Tablet Extended Release 24 Hr 30 mg PO DAILY Qty: 0 0RF Protocol: Hold for SBP< HOLD for SBP < : 90 sotalol 80 mg tablet 80 mg PO BID hydroxyzine pamoate 50 mg capsule 50 mg PO BID tamsulosin 0.4 mg capsule 0.4 mg PO BEDTIME nitroglycerin 0.4 mg tablet, sublingual 0.4 mg sublingual Q5M PRN (Reason: Chest Pain) albuterol sulfate 90 mcg/actuation HFA aerosol inhaler 2 puff inhalation Q4H PRN (Reason: Shortness Of Breath) ezetimibe 10 mg Tablet 10 mg PO DAILY 7 Days Qty: 7 0RF risperidone 1 mg tablet 1.5 mg PO BEDTIME Xarelto 20 mg tablet 20 mg PO DAILY@1800 levothyroxine 75 mcg tablet 75 mcg PO DAILY@0600 acetaminophen 325 mg tablet 650 mg PO Q4H PRN (Reason: Fever Or Pain) metformin 500 mg tablet 500 mg PO DAILY trazodone 50 mg tablet 25 mg PO BEDTIME ondansetron HCl 4 mg Tablet 4 mg PO Q4H PRN (Reason: nausea and vomitting) sumatriptan succinate 50 mg tablet 50 mg PO BID PRN (Reason: migraines) Rx Instructions: wait 2 hours between doses calcium carbonate [Tums] 300 mg (750 mg) Tablet,Chewable 300 mg PO Q4H PRN (Reason: Dyspepsia) aspirin 81 mg tablet,delayed release (DR/EC) 81 mg PO DAILY tramadol 50 mg tablet 50 mg PO Q6H PRN (Reason: migraines) quetiapine 100 mg tablet 100 mg PO BEDTIME magnesium hydroxide 400 mg/5 mL Suspension 30 ml PO DAILY PRN (Reason: Constipation) gabapentin 300 mg capsule 300 mg PO BID bisacodyl 5 mg Tablet,Delayed Release (Dr/Ec) 10 mg PO BEDTIME PRN (Reason: Constipation) alum-mag hydroxide-simeth [Mylanta Maximum Strength] 400-400-40 mg/5 mL Suspension 10 ml PO Q4H PRN (Reason: Constipation) escitalopram oxalate 20 mg Tablet 20 mg PO DAILY cyclobenzaprine 5 mg tablet 5 mg PO TID PRN (Reason: muscle spasms) melatonin 10 mg Tablet 10 mg PO BEDTIME PRN (Reason: Insomnia) prednisone 20 mg tablet 20 mg PO DAILY Qty: 5 0RF oxycodone 5 mg tablet 5 mg PO BID PRN (Reason: pain) Qty: 4 0RF Rx Instructions: Partial Fill upon patient request. cyclobenzaprine 10 mg tablet 10 mg PO TID PRN (Reason: muscle spasm) Qty: 10 0RF meclizine 25 mg tablet 25 mg PO DAILY PRN (Reason: dizziness) Qty: 14 0RF lidocaine 5 % adhesive patch,medicated 1 patch topical DAILY PRN (Reason: pain) Qty: 15 0RF Rx Instructions: leave on most painful area for up to 12 hrs acetaminophen [Tylenol] 325 mg capsule 325 mg PO Q4H PRN (Reason: pain) Qty: 30 0RF trazodone 150 mg tablet 150 mg PO BEDTIME hydroxyzine HCl 50 mg tablet 50 mg PO BEDTIME (DME) miscellaneous medical supply Misc See Rx Instructions .Route Qty: 1 0RF Rx Instructions: Quad cane use As directed oxycodone-acetaminophen 5-325 mg tablet 1 tab PO Q8H PRN (Reason: pain (scale score 7-10)) 7 Days Qty: 20 0RF Rx Instructions: Partial Fill upon patient request. naloxone [Narcan] 4 mg/actuation spray,non-aerosol 4 mg intranasal Q2M PRN (Reason: opioid overdose) Qty: 2 0RF Rx Instructions: spray 1 dose into ONE nostril; alternate nostrils w each dose until help arrives Referrals: Physician,Unknown J [Primary Care Provider] - 09/04/24 Print Language: Luxembourgish
[2024-09-02 12:04] VITALS: BP 120/52; PULSE 74; RESP 16; TEMP 37.1; O2SAT 97
--- NOTE | 2024-09-02 12:07 | PC.NURSE ---
continues to endorse chest pain. patient awaiting dispo - provided with sandwich and dorothy allen.
[2024-09-02 12:11] VITALS: BP 119/66; PULSE 78; RESP 14; TEMP 36.3; O2SAT 96
[2024-09-02 13:02] VITALS: BP 119/66; PULSE 78; RESP 14; TEMP 36.3; O2SAT 96
== END 2024-09-02 13:03 | disposition home or self-care (01) ==
PROVIDERS: Emergency Provider Emergency Medicine Emergency Medical Services
DX: R07.89 Other chest pain (principal); R55 Syncope and collapse; R51.9 Headache, unspecified; Z79.899 Other long term (current) drug therapy; Z03.818 Encounter for observation for suspected exposure to other biological agents ruled out
CPT/HCPCS: 0241U; 36415; 70450; 71045; 72125; 80053; 84484; 85025; 85610; 93005; 99284; 99285

== ENCOUNTER → 2024-09-02 07:49 | Outpatient (BNV) | payer OTHER, SELFPAY | PROVIDERS: Emergency Provider Emergency Medicine Emergency Medical Services; Visit Provider Internal Medicine | DX: I45.10 Unspecified right bundle-branch block (principal) | CPT/HCPCS: 93010 ==

== ENCOUNTER → 2024-09-02 08:05 | Outpatient (BNV) | payer OTHER, SELFPAY | PROVIDERS: Emergency Provider Emergency Medicine Emergency Medical Services; Visit Provider Radiology Diagnostic Radiology | DX: M47.812 Spondylosis without myelopathy or radiculopathy, cervical region (principal); M25.78 Osteophyte, vertebrae; R41.82 Altered mental status, unspecified; R07.9 Chest pain, unspecified; W19.XXXA Unspecified fall, initial encounter | CPT/HCPCS: 70450; 71045; 72125 ==

== ENCOUNTER 2024-09-16 09:29 | Emergency (ER) | payer OTHER, SELFPAY ==
--- NOTE | ~2024-09-16 | CT_ITS ---
EXAMINATION: CT HEAD WITHOUT CONTRAST CLINICAL INFORMATION: syncope/fall COMPARISON: September 02, 2024. July 30, 2024.. TECHNIQUE: Contiguous axial imaging was performed from the skull base to vertex without intravenous administration of contrast. This CT examination was performed using dose optimization techniques as appropriate, variously including the following: *Automated exposure control *Adjustment of mA and/or kV according to patient size (this includes techniques or standardized protocols for targeted exams where dose is matched to indication/reason for exam; i.e. extremities or head) *Use of iterative reconstruction technique DLP: 754 mGy-cm FINDINGS: There is an 8 mm, ovoid shaped, intra-axial hyperdensity centered in the left frontal deep periventricular white matter adjacent to the left frontal horn of the lateral ventricle. No acute intracranial hemorrhage, mass effect, midline shift, hydrocephalus or herniation. Bilateral multifocal patchy deep periventricular white matter hypodensity involving centrum semiovale and katz radiata. Posterior cranial fossa contents demonstrated no acute intracranial hemorrhage or mass effect. Sellar/suprasellar region demonstrated no gross masses. Craniocervical junction demonstrates normal position of the cerebellar tonsils. No acute abnormality within the bony calvarium or the skull base. Small retention cysts versus polyp in the left maxillary sinus. Poor pneumatization left mastoid cells. Tympanic cavities are aerated. CT/CT head/brain wo IV con IMPRESSION: No acute fracture or bony calvarium. No acute intracranial hemorrhage. Stable 8mm intra-axial hyperdensity, left frontal lobe may correspond to a cavernous malformation. Electronically signed by: Geronimo Monet MD 09/16/2024 01:25 PM EDT
--- NOTE | ~2024-09-16 | XR_ITS ---
EXAMINATION: XR CHEST CLINICAL INFORMATION: left sided chest pain COMPARISON: 09/02/2024, 07/30/2024. TECHNIQUE: 2 views of the chest were obtained. FINDINGS: Left-sided 3-lead AICD device in place with leads extending into the right atrium and right ventricle. There is been prior median sternotomy with small sternal wires noted. The cardiac, hilar, and mediastinal contours are normal. The lungs are clear bilaterally. There is no pneumothorax or pleural effusion. There is no focal osseous or soft tissue abnormality. There are a few syndesmophytes throughout the thoracic spine, findings suggestive of DISH. XR/XR chest 2V IMPRESSION: No active pulmonary disease. Electronically signed by: Lewis Ford MD 09/16/2024 12:20 PM EDT
[2024-09-16 09:39] VITALS: BP 149/82; PULSE 97; RESP 14; TEMP 36.1; O2SAT 98; BMI 36.1
--- NOTE | 2024-09-16 09:43 | ECG_ITS ---
Test Reason : CP Blood Pressure : */* mmHG Vent. Rate : 94 BPM Atrial Rate : 94 BPM P-R Int : 216 ms QRS Dur : 160 ms QT Int : 402 ms P-R-T Axes : 68 114 67 degrees QTcB Int : 502 ms Sinus rhythm with 1st degree A-V block with occasional , and consecutive Premature ventricular complexes Right bundle branch block Abnormal ECG When compared with ECG of 02-Sep-2024 07:51, Premature ventricular complexes are now Present Referred By: Generic ED Physician Electronically Signed By: Bryan Juarez
[2024-09-16 10:36] VITALS: BP 139/78; PULSE 88; RESP 18; O2SAT 100
[2024-09-16 10:52] LABS: MANUAL DIFF FLAG NO
[2024-09-16 10:58] LABS: Basophils Absolute Auto 0.1 X10*3/uL (0.0-0.2); Basophils Percent Auto 0.8 % (0-2); Eosinophils Absolute Auto 0.3 X10*3/uL (0.0-0.4); Hematocrit 32.4 % (42.0-52.0); Hemoglobin 10.8 g/dl (14.0-18.0); Imm Gran Abs Auto 0.11 X10*3/uL (0.00-0.03); Imm Gran Pct Auto 1.7 % (0.0-0.4); Lymphocytes Absolute Auto 1.2 X10*3/uL (1.2-4.9); Lymphocytes Percent Auto 17.7 % (20-40); Mean Corpuscular HGB Conc 33.3 g/dl (31.0-36.0); Mean Corpuscular Hemoglobin 28.8 pg (27.0-33.0); Mean Corpuscular Volume 86.4 fL (80.0-98.0); Monocytes Absolute Auto 0.7 X10*3/uL (0.1-1.2); Monocytes Percent Auto 10.4 % (2-11); Neutrophils Absolute Auto 4.3 x10*3/uL (2.0-8.3); Neutrophils Percent Auto 65.4 % (45-73); Red Blood Count 3.75 X10*6/uL (4.60-5.80); Red Cell Distribution Width 14.1 % (11.0-16.0); White Blood Count 6.6 X10*3/uL (4.8-10.8)
[2024-09-16 10:59] LABS: Platelet Count 86 X10*3/uL (160-400)
[2024-09-16 11:09] LABS: Alanine Aminotransferase 15 U/L (0-40); Albumin Level 4.1 g/dL (3.5-5.0); Alkaline Phosphatase 66 U/L (39-117); Anion Gap 13 (12-20); Aspartate Amino Transferase 24 U/L (5-37); Bilirubin Total 0.4 mg/dL (0.0-1.0); Blood Urea Nitrogen 23 mg/dL (9-16); Calcium 8.4 mg/dL (8.4-10.2); Carbon Dioxide 27 mmol/L (22-29); Chloride 108 mmol/L (96-108); Creatinine Clr Calc Pharmacy 73.4; Estimated Glomerular Filt Rate 57; Glucose Random 121 mg/dL (60-115); Potassium 4.5 mmol/L (3.3-5.1); Sodium 143 mmol/L (135-145); Total Protein 6.4 g/dL (6.5-8.0)
[2024-09-16 11:16] LABS: Troponin-I High Sensitivity 2.8 ng/L (<3.5-35.0)
--- NOTE | 2024-09-16 11:16 | ED.CHESTPAIN ---
HPI - Chest Pain General Chief Complaint: Chest Pain Stated Complaint: CP, FROM WALK IN CLINIC PER EMS Time Seen by Provider: 09/16/24 11:14 Source: patient, EMS, RN notes reviewed and old records reviewed Mode of arrival: EMS Limitations: no limitations History of Present Illness ED Provider: Genie HPI narrative: Patient is a 64-year-old male with history of tetralogy of Fallot, tachybradycardia syndrome with AICD in place, orthostatic hypotension, somatic symptom disorder, hypertension, hyperlipidemia, COPD, frequent falls presenting to the ED with complaint of lightheadedness, and chest pain. States symptoms began yesterday, reports syncopal episode at [facility] which caused him to fall backwards in the chair he was sitting in and hit his head against the wall. Seen in the ED at [facility] and discharged. Walked to [facility] and reports having second syncopal episode there as well as left sided chest pain radiating to left arm. Denies dyspnea, headache, blurred or double vision. Denies nausea or vomiting. MD complaint: chest pain Related Data Home Medications ?Medication ?Instructions ?Recorded ?Confirmed albuterol sulfate 90 mcg/actuation 2 puff inhalation Q4H PRN 08/19/22 01/01/23 aerosol inhaler Shortness Of Breath hydroxyzine pamoate 50 mg capsule 50 mg PO BID Anxiety / Nausea 08/19/22 01/01/23 nitroglycerin 0.4 mg sublingual 0.4 mg sublingual Q5M PRN Chest 08/19/22 01/01/23 tablet Pain sotalol 80 mg tablet 80 mg PO BID 08/19/22 01/01/23 tamsulosin 0.4 mg capsule 0.4 mg PO BEDTIME 08/19/22 01/01/23 levothyroxine 75 mcg tablet 75 mcg PO DAILY@0600 09/08/22 01/01/23 risperidone 1 mg tablet 1.5 mg PO BEDTIME 09/08/22 01/01/23 rivaroxaban 20 mg tablet (Xarelto) 20 mg PO DAILY@1800 09/08/22 01/01/23 acetaminophen 325 mg tablet 650 mg PO Q4H PRN Fever Or Pain 01/01/23 01/01/23 aluminum-mag hydroxide-simethicone 10 ml PO Q4H PRN Constipation 01/01/23 01/01/23 400 mg-400 mg-40 mg/5 mL oral susp (Mylanta Maximum Strength) aspirin 81 mg tablet,delayed 81 mg PO DAILY 01/01/23 01/01/23 release bisacodyl 5 mg tablet,delayed 10 mg PO BEDTIME PRN Constipation 01/01/23 01/01/23 release calcium carbonate (Tums) 300 mg PO Q4H PRN Dyspepsia 01/01/23 01/01/23 cyclobenzaprine 5 mg tablet 5 mg PO TID PRN muscle spasms 01/01/23 01/01/23 escitalopram oxalate 20 mg tablet 20 mg PO DAILY 01/01/23 01/01/23 gabapentin 300 mg capsule 300 mg PO BID 01/01/23 01/01/23 magnesium hydroxide 400 mg/5 mL 30 ml PO DAILY PRN Constipation 01/01/23 01/01/23 oral suspension melatonin 10 mg tablet 10 mg PO BEDTIME PRN Insomnia 01/01/23 01/01/23 metformin 500 mg tablet 500 mg PO DAILY 01/01/23 01/01/23 ondansetron HCl 4 mg tablet 4 mg PO Q4H PRN nausea and 01/01/23 01/01/23 vomitting quetiapine 100 mg tablet 100 mg PO BEDTIME 01/01/23 01/01/23 sumatriptan succinate 50 mg tablet 50 mg PO BID PRN migraines 01/01/23 01/01/23 tramadol 50 mg tablet 50 mg PO Q6H PRN migraines 01/01/23 01/01/23 trazodone 50 mg tablet 25 mg PO BEDTIME 01/01/23 01/01/23 hydroxyzine HCl 50 mg tablet 50 mg PO BEDTIME 12/26/23 trazodone 150 mg tablet 150 mg PO BEDTIME 12/26/23 Previous Rx's ?Medication ?Instructions ?Recorded isosorbide mononitrate 30 mg 30 mg PO DAILY #0 tabs 09/22/21 tablet,extended release 24 hr ezetimibe 10 mg tablet 10 mg PO DAILY 7 days #7 tabs 08/24/22 oxycodone 5 mg tablet 5 mg PO BID PRN pain #4 tabs 01/01/23 prednisone 20 mg tablet 20 mg PO DAILY #5 tabs 01/01/23 cyclobenzaprine 10 mg tablet 10 mg PO TID PRN muscle spasm #10 08/31/23 tabs acetaminophen 325 mg capsule 325 mg PO Q4H PRN pain #30 caps 09/30/23 (Tylenol) lidocaine 5 % topical patch 1 patch topical DAILY PRN pain #15 09/30/23 ea meclizine 25 mg tablet 25 mg PO DAILY PRN dizziness #14 09/30/23 tabs miscellaneous medical supply #1 ea 12/26/23 naloxone 4 mg/actuation nasal 4 mg intranasal Q2M PRN opioid 12/26/23 spray (Narcan) overdose #2 ea oxycodone-acetaminophen 5 mg-325 1 tab PO Q8H PRN pain (scale score 12/26/23 mg tablet 7-10) 7 days #20 tabs Allergies Allergy/AdvReac Type Severity Reaction Status Date / Time aripiprazole [From Abilify] Allergy Severe Rash Verified 09/02/24 07:50 peas Allergy Severe HIVES Verified 09/02/24 07:50 atorvastatin [From Lipitor] Allergy Intermediate Hives Verified 09/02/24 07:50 levetiracetam Allergy Itching Verified 09/16/24 09:42 potato Allergy Itching Verified 09/16/24 09:42 bee pollen [bee stings] AdvReac Severe Anaphylaxis Verified 09/02/24 07:50 Review of Systems Review of Systems: As per HPI Yes all other systems are reviewed and are negative Constitutional: Constitutional: Reports as per HPI PMFSH Past Medical History Medical History Somatoform disorder Depression with suicidal ideation Sleep apnea Seizure RBBB Cardiac defibrillator in place Artificial cardiac pacemaker Hyperthyroidism Hyperlipidemia History of ETOH abuse Hypertension GERD (gastroesophageal reflux disease) Diabetes Developmental delay, mild Depression COPD (chronic obstructive pulmonary disease) Asthma Anxiety Surgical History History of cardiac cath Social History Social History Household Members: Other Household Members Other:: 2 roommates Housing: Apartment Housing Other:: Sober House Do you presently have visiting nurse or other home services: No Alcohol intake: never Patient Tobacco Use Status: Never used Tobacco Tobacco use type: Cigarette Second Hand Smoke Exposure: No Substance Use Type: Former Substance User, Prescription Drugs and Caffiene Advance Directives: Yes Advance Directives Information Provided: Yes Advance Directives on File: No Do you have a plan to hurt others: No Plan service: No Current occupational status: disabled Sexual orientation: Decline to Answer Physical Exam Vital Signs: Vital Signs: Last Vital Signs Temp 97 F 09/16/24 09:39 Pulse 96 09/16/24 14:06 Resp 16 09/16/24 14:06 BP 165/73 H 09/16/24 14:06 Pulse Ox 95 09/16/24 14:06 O2 Del Method Room Air 09/16/24 14:06 BMI result Body Mass Index 36.1 Const: General: cooperative, healthy appearing and no acute distress Orientation/consciousness: oriented to person, oriented to place, oriented to time and patient oriented x3 Limitations: no limitations HEENT: Head: Yes normocephalic and Yes atraumatic Ears: external ears normal General nose exam: Normal external nose present Face and sinus: Yes face symmetric Mouth: oropharynx normal and moist mucous membranes Throat: Yes uvula midline Eyes: Pupils: Equal, round and reactive pupils present Neck: Neck: Yes normal visual inspection and Yes supple Resp: Effort & Inspection: normal respiratory effort and able to speak in complete sentences Auscultation: clear to auscultation bilaterally Cardio: Rate: regular rate Rhythm: regular rhythm Heart sounds: S1 normal heart sound present and S2 normal heart sound present GI: Palpation (GI): Soft to palpation and nontender Auscultation: normoactive bowel sounds : General: Yes no CVA tenderness Back/Spine/Pelvis: Back: no CVA tenderness Skin: General skin exam: elasticity normal and turgor normal Neuro: General: oriented to person, oriented to place, oriented to time, patient oriented x3, gait normal, tone normal, moves all extremities, Normal light touch and pain sensation, no focal motor deficits, CN's II-XI intact bilaterally and deep tendon reflexes 2+ bilaterally Cranial nerves: Yes Equal, round and reactive pupils present Cognition (Neuro): normal cognition Motor exam (neuro): 5/5 motor strength present throughout, Pronator motor function not present, Normal motor muscle tone present throughout and Motor abnormalities not present Extrem: General: Yes full ROM, Yes no pedal edema and Yes no calf tenderness Psych: Mental Status: mental status grossly normal Affect: normal affect Thought process: Normal thought process present NIH Stroke Scale Internal: Initial- Upon Arrival Time: 11:24 Level of Consciousness: Alert Level of Consciousness Questions: Answers both questions correctly Level of Consciousness Commands: Performs both tasks correctly Best Gaze: Normal Visual: No visual loss Facial Palsy: Normal Motor Arm (Right): No drift Motor Arm (Left): No drift Motor Leg (Right): No drift Motor Leg (Left): No drift Limb Ataxia: Absent Sensory: Normal Best Language: No aphasia Dysarthia: Normal Extinction and Inattention: No abnormality Score: 0 Medical Decision Making Medical Decision Making [facility] Narrative: Patient is a 64-year-old male with history of tetralogy of Fallot, tachybradycardia syndrome with AICD in place, orthostatic hypotension, somatic symptom disorder, hypertension, hyperlipidemia, COPD, frequent falls presenting to the ED with complaint of lightheadedness, and chest pain. On exam patient is awake, A+Ox3, VS WNL, afebrile, normal neurological exam without focal deficits, physical exam findings as above. Patient presents to both this ED and [facility] ED frequently with similar complaints. He was seen at [facility] ED 7 times this month. Discharged from [facility] ED yesterday after negative workup. Given reported symptoms and physical exam findings, initial differential includes but is not limited to cardiac arrhythmia, anemia, electrolyte abnormality, ICH. Unlikely ACS. Labs notable for chronic stable anemia, no leukocytosis, no significant electrolyte abnormalities, negative troponin. X-ray chest notable for no evidence of pneumonia, cardiomegaly, pneumothorax. CT head without evidence of ICH, mass. My interpretation is in agreement with the radiologist's interpretation. Patient is currently pain-free. Results discussed with patient and all questions answered. Feel he is stable for discharge back to [facility]. Return precautions discussed. Patient verbalized understanding of and agreement with plan. Differential Diagnosis Differential Diagnoses: The differential diagnosis associated with the presentation includes As per [facility] Admission/Observation Consideration of admission/observation: Escalation of care including admission/observation considered Patient would have been admitted to the hospital had their work up had any findings where hospital admission was appropriate and their clinical presentation warranted hospital admission. Lab Data [facility] Lab Attestation statement: I reviewed the patient's lab results. as per [facility] 09/16/24 10:45 09/16/24 10:45 Labs: Lab Results 09/16/24 Range/Units 10:45 WBC 6.6 (4.8-10.8) X10*3/uL RBC 3.75 L (4.60-5.80) X10*6/uL Hgb 10.8 L (14.0-18.0) g/dl Hct 32.4 L (42.0-52.0) % MCV 86.4 (80.0-98.0) fL MCH 28.8 (27.0-33.0) pg MCHC 33.3 (31.0-36.0) g/dl RDW 14.1 (11.0-16.0) % Plt Count 86 L (160-400) X10*3/uL MPV 11.0 (9.4-12.4) fL Immature Gran % (Auto) 1.7 H (0.0-0.4) % Neut % (Auto) 65.4 (45-73) % Lymph % (Auto) 17.7 L (20-40) % [place] % (Auto) 10.4 (2-11) % Eos % (Auto) 4.0 (0-4) % Baso % (Auto) 0.8 (0-2) % Lymph # (Auto) 1.2 (1.2-4.9) X10*3/uL [place] # (Auto) 0.7 (0.1-1.2) X10*3/uL Eos # (Auto) 0.3 (0.0-0.4) X10*3/uL Baso # (Auto) 0.1 (0.0-0.2) X10*3/uL Abs Immat Gran (auto) 0.11 H (0.00-0.03) X10*3/uL Absolute Neuts (auto) 4.3 (2.0-8.3) x10*3/uL Absolute Nucleated RBC 0.000 (0.0-0.012) X10*3/uL Nucleated RBC % (auto) 0.0 (0.0-0.2) /100WBC Sodium 143 (135-145) mmol/L Potassium 4.5 (3.3-5.1) mmol/L Chloride 108 (96-108) mmol/L Carbon Dioxide 27 (22-29) mmol/L Anion Gap 13 (12-20) BUN 23 H (9-16) mg/dL Creatinine 1.28 (0.5-1.4) mg/dL Estim Creat Clear Calc 73.4 Estimated GFR 57 Random Glucose 121 H (60-115) mg/dL Calcium 8.4 D (8.4-10.2) mg/dL Total Bilirubin 0.4 (0.0-1.0) mg/dL AST 24 (5-37) U/L ALT 15 (0-40) U/L Alkaline Phosphatase 66 (39-117) U/L Troponin I High Sens 2.8 (<3.5-35.0) ng/L Total Protein 6.4 L (6.5-8.0) g/dL Albumin 4.1 (3.5-5.0) g/dL Independent Interpretation I performed an independent interpretation of an: EKG (sinus rhythm with 1st degree AV block, rate 94bpm, slightly prolonged IL interval and QTc, RBBB, occasional PVCs, no significant change from prior), Plain X-Ray and CT Scan Interpretation: CXR without evidence of pneumonia, ptx, cardiomegaly CT head without evidence of ICH, fracture Radiology Impression Discussion of test interpretation with radiology: I have reviewed the radiologist's reading. Radiologist Impression: XR/XR chest 2V IMPRESSION: No active pulmonary disease. CT/CT head/brain wo IV con IMPRESSION: No acute fracture or bony calvarium. No acute intracranial hemorrhage. Stable 8mm intra-axial hyperdensity, left frontal lobe may correspond to a cavernous malformation. External Record Review External record reviewed: Inpatient record, Office record and Outpatient record Discharge Plan Discharge Clinical Impression: Chest pain Patient Disposition: Home, Self-Care Instructions: Chest Pain (DC) Additional Instructions: You were evaluated in the emergency department today for chest pain. Your evaluation has shown no signs of medical conditions requiring emergent intervention at this time, however we recommend that you follow-up with your primary care physician or your [employer] supervisor for further testing as an outpatient. Please schedule an appointment for follow-up with your primary care physician as soon as possible. Return to the emergency department if you experience worsening or uncontrolled chest pain, shortness of breath, lightheadedness, feeling faint, loss of consciousness, nausea, vomiting, or any other concerning symptoms. Prescriptions: No Action isosorbide mononitrate 30 mg Tablet Extended Release 24 Hr 30 mg PO DAILY Qty: 0 0RF Protocol: Hold for SBP< HOLD for SBP < : 90 sotalol 80 mg tablet 80 mg PO BID hydroxyzine pamoate 50 mg capsule 50 mg PO BID tamsulosin 0.4 mg capsule 0.4 mg PO BEDTIME nitroglycerin 0.4 mg tablet, sublingual 0.4 mg sublingual Q5M PRN (Reason: Chest Pain) albuterol sulfate 90 mcg/actuation HFA aerosol inhaler 2 puff inhalation Q4H PRN (Reason: Shortness Of Breath) ezetimibe 10 mg Tablet 10 mg PO DAILY 7 Days Qty: 7 0RF risperidone 1 mg tablet 1.5 mg PO BEDTIME Xarelto 20 mg tablet 20 mg PO DAILY@1800 levothyroxine 75 mcg tablet 75 mcg PO DAILY@0600 acetaminophen 325 mg tablet 650 mg PO Q4H PRN (Reason: Fever Or Pain) metformin 500 mg tablet 500 mg PO DAILY trazodone 50 mg tablet 25 mg PO BEDTIME ondansetron HCl 4 mg Tablet 4 mg PO Q4H PRN (Reason: nausea and vomitting) sumatriptan succinate 50 mg tablet 50 mg PO BID PRN (Reason: migraines) Rx Instructions: wait 2 hours between doses calcium carbonate [Tums] 300 mg (750 mg) Tablet,Chewable 300 mg PO Q4H PRN (Reason: Dyspepsia) aspirin 81 mg tablet,delayed release (DR/EC) 81 mg PO DAILY tramadol 50 mg tablet 50 mg PO Q6H PRN (Reason: migraines) quetiapine 100 mg tablet 100 mg PO BEDTIME magnesium hydroxide 400 mg/5 mL Suspension 30 ml PO DAILY PRN (Reason: Constipation) gabapentin 300 mg capsule 300 mg PO BID bisacodyl 5 mg Tablet,Delayed Release (Dr/Ec) 10 mg PO BEDTIME PRN (Reason: Constipation) alum-mag hydroxide-simeth [Mylanta Maximum Strength] 400-400-40 mg/5 mL Suspension 10 ml PO Q4H PRN (Reason: Constipation) escitalopram oxalate 20 mg Tablet 20 mg PO DAILY cyclobenzaprine 5 mg tablet 5 mg PO TID PRN (Reason: muscle spasms) melatonin 10 mg Tablet 10 mg PO BEDTIME PRN (Reason: Insomnia) prednisone 20 mg tablet 20 mg PO DAILY Qty: 5 0RF oxycodone 5 mg tablet 5 mg PO BID PRN (Reason: pain) Qty: 4 0RF Rx Instructions: Partial Fill upon patient request. cyclobenzaprine 10 mg tablet 10 mg PO TID PRN (Reason: muscle spasm) Qty: 10 0RF meclizine 25 mg tablet 25 mg PO DAILY PRN (Reason: dizziness) Qty: 14 0RF lidocaine 5 % adhesive patch,medicated 1 patch topical DAILY PRN (Reason: pain) Qty: 15 0RF Rx Instructions: leave on most painful area for up to 12 hrs acetaminophen [Tylenol] 325 mg capsule 325 mg PO Q4H PRN (Reason: pain) Qty: 30 0RF trazodone 150 mg tablet 150 mg PO BEDTIME hydroxyzine HCl 50 mg tablet 50 mg PO BEDTIME (DME) miscellaneous medical supply Misc See Rx Instructions .Route Qty: 1 0RF Rx Instructions: Quad cane use As directed oxycodone-acetaminophen 5-325 mg tablet 1 tab PO Q8H PRN (Reason: pain (scale score 7-10)) 7 Days Qty: 20 0RF Rx Instructions: Partial Fill upon patient request. naloxone [Narcan] 4 mg/actuation spray,non-aerosol 4 mg intranasal Q2M PRN (Reason: opioid overdose) Qty: 2 0RF Rx Instructions: spray 1 dose into ONE nostril; alternate nostrils w each dose until help arrives Print Language: Spanish
[2024-09-16 14:06] VITALS: BP 165/73; PULSE 96; RESP 16; O2SAT 95
[2024-09-16] MEDS: Acetaminophen 325 MG TABLET 650 MG PO (14:47)
== END 2024-09-16 15:04 | disposition home or self-care (01) ==
PROVIDERS: Emergency Provider Emergency Medicine Emergency Medical Services
DX: R07.9 Chest pain, unspecified (principal); R29.700 NIHSS score 0; I49.5 Sick sinus syndrome; I95.1 Orthostatic hypotension; Q21.3 Tetralogy of Fallot; F45.9 Somatoform disorder, unspecified; I10 Essential (primary) hypertension; E78.5 Hyperlipidemia, unspecified; J44.9 Chronic obstructive pulmonary disease, unspecified; R29.6 Repeated falls; Z91.81 History of falling; Z79.899 Other long term (current) drug therapy; Z79.84 Long term (current) use of oral hypoglycemic drugs; Z79.82 Long term (current) use of aspirin; Z79.01 Long term (current) use of anticoagulants
CPT/HCPCS: 36415; 70450; 71046; 80053; 84484; 85025; 93005; 99284

== ENCOUNTER → 2024-09-16 09:43 | Outpatient (BNV) | payer OTHER, SELFPAY | PROVIDERS: Emergency Provider Emergency Medicine Emergency Medical Services; Visit Provider Internal Medicine Cardiovascular Disease | DX: I44.0 Atrioventricular block, first degree (principal); I49.3 Ventricular premature depolarization; I45.10 Unspecified right bundle-branch block | CPT/HCPCS: 93010 ==

== ENCOUNTER → 2024-09-16 11:24 | Outpatient (BNV) | payer OTHER, SELFPAY | PROVIDERS: Emergency Provider Emergency Medicine Emergency Medical Services; Visit Provider Radiology Diagnostic Radiology | DX: G93.89 Other specified disorders of brain (principal); R07.9 Chest pain, unspecified | CPT/HCPCS: 70450; 71046 ==

== ENCOUNTER 2024-10-21 11:01 | Emergency (ER) | payer OTHER, SELFPAY ==
--- OUTSIDE RECORDS SUMMARY | 2018-03-07 04:25 | XMS_ITS | Continuity of Care Document ---
Author Organization [facility] Address [address] [place] [phone] Phone Care Team Providers Care Credit Authorizer Name Role Phone Camryn Monroe MD Unavailable Unavailable Advance Directives Directive Yes / No Effective Date File Name No Information Encounters Encounter Description Practice Location Reason(s) For Visit Diagnoses Date Provider [facility], [address] [place] [address], [id number], [place] tel:[phone] [facility] No Information [address]. [address] [place] [address], [id number], [place]. tel:[phone] Family History Family Member Type Diagnosis Age At Onset No Information Payers Payer name Insurance type Covered constitution party ID Authoriza tion(s) No Information Social History Type Description Quantity Date Captured Comments Sex Male Smoking Status No Information Chief Complaint And Reason For Visit No Information History Of Present Illness Encounter Date Complaint History Of Prese nt Illness No Information Instructions Date Instruction Additional Infor mation No Information Assessments Type Assessment Date No Information
[2024-10-21] VITALS (7 sets, daily range): BP systolic 115–150; BP diastolic 56–84; PULSE 74–82; RESP 16–22; TEMP 36.4–37; O2SAT 96–99; BMI 35.4
--- NOTE | ~2024-10-21 | XR_ITS ---
EXAMINATION: XR CHEST 1 VIEW HISTORY: chest pain COMPARISON: Comparison is made with the prior examination dated 09/16/2024. FINDINGS: Two AP portable views of the chest performed at 11:33 AM are submitted. A left subclavian dual-chamber pacemaker is unchanged in position. The lungs are expanded and clear. There is no pleural effusion, pneumothorax, or pulmonary vascular congestion. The heart is normal in size. The bones are intact. XR/XR chest 1V IMPRESSION: No acute cardiopulmonary abnormality. Electronically signed by: Rocael Golden MD 10/21/2024 11:37 AM EDT
--- NOTE | 2024-10-21 11:12 | ECG_ITS ---
Test Reason : chest pain Blood Pressure : */* mmHG Vent. Rate : 86 BPM Atrial Rate : 86 BPM P-R Int : 160 ms QRS Dur : 178 ms QT Int : 466 ms P-R-T Axes : 55 101 18 degrees QTcB Int : 557 ms Normal sinus rhythm Rightward axis Right bundle branch block Abnormal ECG When compared with ECG of 16-Sep-2024 09:58, Premature ventricular complexes are no longer Present TN interval has decreased Referred By: Generic ED Physician Electronically Signed By: Bryan Juarez
--- NOTE | 2024-10-21 11:20 | ED.CHESTPAIN ---
HPI - Chest Pain General Chief Complaint: Chest Pain Stated Complaint: CP/ASA GIVEN, FROM [facility]ULT [facility] PER EMS Time Seen by Provider: 10/21/24 11:13 Source: patient Mode of arrival: EMS History of Present Illness HPI narrative: This is a 64 years old the patient with intellectual disability who lives in a [facility] also history of tetralogy of Fallot with right bundle-branch block and ICD placed in 2013 presented with a chief complaint of chest pain radiated to the left arm. Patient well known to this emergency department multiple visit MD complaint: chest pain Onset (ago): hour(s) (1) Timing of current episode: episodic Onset: during rest Pain location: left chest Severity: moderate Relieving factors: nothing Exacerbating factors: nothing Risk Factors Thoracic aortic dissection risk factors: none Related Data Home Medications ?Medication ?Instructions ?Recorded ?Confirmed albuterol sulfate 90 mcg/actuation 2 puff inhalation Q4H PRN 08/19/22 01/01/23 aerosol inhaler Shortness Of Breath hydroxyzine pamoate 50 mg capsule 50 mg PO BID Anxiety / Nausea 08/19/22 01/01/23 nitroglycerin 0.4 mg sublingual 0.4 mg sublingual Q5M PRN Chest 08/19/22 01/01/23 tablet Pain sotalol 80 mg tablet 80 mg PO BID 08/19/22 01/01/23 tamsulosin 0.4 mg capsule 0.4 mg PO BEDTIME 08/19/22 01/01/23 levothyroxine 75 mcg tablet 75 mcg PO DAILY@0600 09/08/22 01/01/23 risperidone 1 mg tablet 1.5 mg PO BEDTIME 09/08/22 01/01/23 rivaroxaban 20 mg tablet (Xarelto) 20 mg PO DAILY@1800 09/08/22 01/01/23 acetaminophen 325 mg tablet 650 mg PO Q4H PRN Fever Or Pain 01/01/23 01/01/23 aluminum-mag hydroxide-simethicone 10 ml PO Q4H PRN Constipation 01/01/23 01/01/23 400 mg-400 mg-40 mg/5 mL oral susp (Mylanta Maximum Strength) aspirin 81 mg tablet,delayed 81 mg PO DAILY 01/01/23 01/01/23 release bisacodyl 5 mg tablet,delayed 10 mg PO BEDTIME PRN Constipation 01/01/23 01/01/23 release calcium carbonate (Tums) 300 mg PO Q4H PRN Dyspepsia 01/01/23 01/01/23 cyclobenzaprine 5 mg tablet 5 mg PO TID PRN muscle spasms 01/01/23 01/01/23 escitalopram oxalate 20 mg tablet 20 mg PO DAILY 01/01/23 01/01/23 gabapentin 300 mg capsule 300 mg PO BID 01/01/23 01/01/23 magnesium hydroxide 400 mg/5 mL 30 ml PO DAILY PRN Constipation 01/01/23 01/01/23 oral suspension melatonin 10 mg tablet 10 mg PO BEDTIME PRN Insomnia 01/01/23 01/01/23 metformin 500 mg tablet 500 mg PO DAILY 01/01/23 01/01/23 ondansetron HCl 4 mg tablet 4 mg PO Q4H PRN nausea and 01/01/23 01/01/23 vomitting quetiapine 100 mg tablet 100 mg PO BEDTIME 01/01/23 01/01/23 sumatriptan succinate 50 mg tablet 50 mg PO BID PRN migraines 01/01/23 01/01/23 tramadol 50 mg tablet 50 mg PO Q6H PRN migraines 01/01/23 01/01/23 trazodone 50 mg tablet 25 mg PO BEDTIME 01/01/23 01/01/23 hydroxyzine HCl 50 mg tablet 50 mg PO BEDTIME 12/26/23 trazodone 150 mg tablet 150 mg PO BEDTIME 12/26/23 Previous Rx's ?Medication ?Instructions ?Recorded isosorbide mononitrate 30 mg 30 mg PO DAILY #0 tabs 09/22/21 tablet,extended release 24 hr ezetimibe 10 mg tablet 10 mg PO DAILY 7 days #7 tabs 08/24/22 oxycodone 5 mg tablet 5 mg PO BID PRN pain #4 tabs 01/01/23 prednisone 20 mg tablet 20 mg PO DAILY #5 tabs 01/01/23 cyclobenzaprine 10 mg tablet 10 mg PO TID PRN muscle spasm #10 08/31/23 tabs acetaminophen 325 mg capsule 325 mg PO Q4H PRN pain #30 caps 09/30/23 (Tylenol) lidocaine 5 % topical patch 1 patch topical DAILY PRN pain #15 09/30/23 ea meclizine 25 mg tablet 25 mg PO DAILY PRN dizziness #14 09/30/23 tabs miscellaneous medical supply #1 ea 12/26/23 naloxone 4 mg/actuation nasal 4 mg intranasal Q2M PRN opioid 12/26/23 spray (Narcan) overdose #2 ea oxycodone-acetaminophen 5 mg-325 1 tab PO Q8H PRN pain (scale score 12/26/23 mg tablet 7-10) 7 days #20 tabs Allergies Allergy/AdvReac Type Severity Reaction Status Date / Time aripiprazole (From Abilify) Allergy Severe Rash Verified 10/21/24 11:26 peas Allergy Severe HIVES Verified 10/21/24 11:26 atorvastatin (From Lipitor) Allergy Intermediate Hives Verified 10/21/24 11:26 levetiracetam Allergy Itching Verified 10/21/24 11:26 potato Allergy Itching Verified 10/21/24 11:26 bee pollen (bee stings) AdvReac Severe Anaphylaxis Verified 10/21/24 11:26 Review of Systems Constitutional: Constitutional: Reports no additional constitutional complaints Cardiovascular: Cardiovascular: Reports as per [facility] Past Medical History Attestation statement: The following information was validated with the patient. Medical History Somatoform disorder Depression with suicidal ideation Sleep apnea Seizure RBBB Cardiac defibrillator in place Artificial cardiac pacemaker Hyperthyroidism Hyperlipidemia History of ETOH abuse Hypertension GERD (gastroesophageal reflux disease) Diabetes Developmental delay, mild Depression COPD (chronic obstructive pulmonary disease) Asthma Anxiety Surgical History History of cardiac cath Social History Social History Household Members: Other Household Members Other:: 2 roommates Housing: Apartment Housing Other:: Sober House Do you presently have visiting nurse or other home services: No Alcohol intake: never Patient Tobacco Use Status: Never used Tobacco Tobacco use type: Cigarette Second Hand Smoke Exposure: No Substance Use Type: Former Substance User, Prescription Drugs and Caffiene Advance Directives: No Advance Directives Information Provided: Yes service: No Current occupational status: disabled Sexual orientation: Decline to Answer Physical Exam Exam: Exam: Awake and alert not acute distress Vital Signs: Vital Signs: Last Vital Signs Temp 98.6 F 10/21/24 14:59 Pulse 74 10/21/24 14:59 Resp 18 10/21/24 14:59 BP 144/73 H 10/21/24 14:59 Pulse Ox 99 10/21/24 14:59 O2 Del Method Room Air 10/21/24 14:59 BMI result Body Mass Index 35.4 Const: General: cooperative Nutritional Appearance: well nourished Orientation/consciousness: oriented to person and patient oriented x3 HEENT: Head: Yes normal to inspection General nose exam: Normal external nose present Face and sinus: Yes normal facial exam Neck: Neck: Yes normal visual inspection and Yes full ROM Chest: Chest palpation & inspection: normal inspection of the chest Resp: Effort & Inspection: normal respiratory effort Auscultation: clear to auscultation bilaterally Cardio: Palpation: normal PMI Rate: regular rate Rhythm: regular rhythm GI: Inspection: Yes normal to inspection Palpation (GI): Soft to palpation, not firm and nontender Auscultation: normal bowel sounds Skin: General skin exam: no rashes or lesions noted Lesions: no lesions Rashes: no rashes Neuro: General: oriented to person and patient oriented x3 Course Reevaluation(s) Reevaluation #1: On re-examination he is doing better delta troponin is flat I acute coronary syndrome he has been ruled out at this point we will discharge home the patient is comfortable with the plan Time: 14:57 Medications Administered Discontinued Medications Generic Name Dose Route Start Last Admin Trade Name Freq PRN Reason Stop Dose Admin Metoclopramide HCl 10 mg 10/21/24 13:05 10/21/24 13:16 Metoclopramide Hcl 10 Mg/2 Ml Vial IVPUSH 10/21/24 13:06 10 mg ONCE ONE Administration Morphine Sulfate 4 mg 10/21/24 11:24 10/21/24 12:12 Morphine Sulfate 4 Mg/Ml Cartridge IVPUSH 10/21/24 11:25 4 mg ONCE ONE Administration Protocol Ondansetron HCl 4 mg 10/21/24 11:24 10/21/24 12:12 Ondansetron Hcl 4 Mg/2 Ml Vial IVPUSH 10/21/24 11:25 4 mg ONCE ONE Administration Medical Decision Making Medical Decision Making [facility] Narrative: Patient is here complaining of chest pain we will check EKG high sensitive troponin 15:00 is feeling much better at this point troponin x2 is negative ACS has been ruled out he can be discharged home he is comfortable with the plan he will follow-up with the his primary care physician Differential Diagnosis Differential Diagnoses: The differential diagnosis associated with the presentation includes Acute coronary syndrome/atypical chest pain/musculoskeletal pain Admission/Observation Consideration of admission/observation: Escalation of care including admission/observation considered Lab Data MDM Lab Attestation statement: I reviewed the patient's lab results. 10/21/24 11:42 10/21/24 11:42 Labs: Lab Results 10/21/24 10/21/24 Range/Units 11:42 13:15 WBC 7.8 (4.8-10.8) X10*3/uL RBC 3.65 L (4.60-5.80) X10*6/uL Hgb 10.3 L (14.0-18.0) g/dl Hct 30.8 L (42.0-52.0) % MCV 84.4 (80.0-98.0) fL MCH 28.2 (27.0-33.0) pg MCHC 33.4 (31.0-36.0) g/dl RDW 13.4 (11.0-16.0) % Plt Count 99 L (160-400) X10*3/uL MPV 11.9 (9.4-12.4) fL Immature Gran % (Auto) 1.5 H (0.0-0.4) % Neut % (Auto) 88.9 H (45-73) % Lymph % (Auto) 6.7 L (20-40) % Boyle % (Auto) 2.2 (2-11) % Eos % (Auto) 0.3 (0-4) % Baso % (Auto) 0.4 (0-2) % Lymph # (Auto) 0.5 L (1.2-4.9) X10*3/uL Boyle # (Auto) 0.2 (0.1-1.2) X10*3/uL Eos # (Auto) 0.0 (0.0-0.4) X10*3/uL Baso # (Auto) 0.0 (0.0-0.2) X10*3/uL Abs Immat Gran (auto) 0.12 H (0.00-0.03) X10*3/uL Absolute Neuts (auto) 6.9 (2.0-8.3) x10*3/uL Absolute Nucleated RBC 0.000 (0.0-0.012) X10*3/uL Nucleated RBC % (auto) 0.0 (0.0-0.2) /100WBC Sodium 140 (135-145) mmol/L Potassium 4.2 (3.3-5.1) mmol/L Chloride 110 H (96-108) mmol/L Carbon Dioxide 23 (22-29) mmol/L Anion Gap 11 L (12-20) BUN 18 H (9-16) mg/dL Creatinine 1.16 (0.5-1.4) mg/dL Estim Creat Clear Calc 80.2 Estimated GFR > 60 Random Glucose 221 H (60-115) mg/dL Calcium 7.8 L D (8.4-10.2) mg/dL Total Bilirubin 0.4 (0.0-1.0) mg/dL AST 16 (5-37) U/L ALT 17 (0-40) U/L Alkaline Phosphatase 73 (39-117) U/L Troponin I High Sens < 2.7 < 2.7 (<3.5-35.0) ng/L Total Protein 5.9 L (6.5-8.0) g/dL Albumin 3.9 (3.5-5.0) g/dL Independent Interpretation I performed an independent interpretation of an: EKG and Plain X-Ray (Chest x-ray reviewed by me not acute disease) Interpretation: EKG was reviewed interpreted by me as right bundle-branch block which is old sinus rhythm rate 86 unchanged EKG Radiology Impression Discussion of test interpretation with radiology: I have reviewed the radiologist's reading. Radiologist Impression: unchanged in position. The lungs are expanded and clear. There is no pleural effusion, pneumothorax, or pulmonary vascular congestion. The heart is normal in size. The bones are intact. XR/XR chest 1V IMPRESSION: No acute cardiopulmonary abnormality. Electronically signed by: Rocael Golden MD 10/21/2024 11:37 AM EDT Dictated By: Rocael Golden MD Signed By: <Electronically signed by Rocael Golden MD in OV> External Record Review External record reviewed: Inpatient record Chronic Conditions Tetralogy of Fallot, right bundle-branch block ICD Discharge Plan Discharge Clinical Impression: Chest pain Qualifiers: Chest pain type: unspecified Qualified Code(s): R07.9 - Chest pain, unspecified Patient Disposition: Home, Self-Care Instructions: Chest Pain (DC) Additional Instructions: Follow-up with your primary care physician you have been evaluated for chest pain we will check the blood test for heart attack x2 both times negative Prescriptions: No Action isosorbide mononitrate 30 mg Tablet Extended Release 24 Hr 30 mg PO DAILY Qty: 0 0RF Protocol: Hold for SBP< HOLD for SBP < : 90 sotalol 80 mg tablet 80 mg PO BID hydroxyzine pamoate 50 mg capsule 50 mg PO BID tamsulosin 0.4 mg capsule 0.4 mg PO BEDTIME nitroglycerin 0.4 mg tablet, sublingual 0.4 mg sublingual Q5M PRN (Reason: Chest Pain) albuterol sulfate 90 mcg/actuation HFA aerosol inhaler 2 puff inhalation Q4H PRN (Reason: Shortness Of Breath) ezetimibe 10 mg Tablet 10 mg PO DAILY 7 Days Qty: 7 0RF risperidone 1 mg tablet 1.5 mg PO BEDTIME Xarelto 20 mg tablet 20 mg PO DAILY@1800 levothyroxine 75 mcg tablet 75 mcg PO DAILY@0600 acetaminophen 325 mg tablet 650 mg PO Q4H PRN (Reason: Fever Or Pain) metformin 500 mg tablet 500 mg PO DAILY trazodone 50 mg tablet 25 mg PO BEDTIME ondansetron HCl 4 mg Tablet 4 mg PO Q4H PRN (Reason: nausea and vomitting) sumatriptan succinate 50 mg tablet 50 mg PO BID PRN (Reason: migraines) Rx Instructions: wait 2 hours between doses calcium carbonate [Tums] 300 mg (750 mg) Tablet,Chewable 300 mg PO Q4H PRN (Reason: Dyspepsia) aspirin 81 mg tablet,delayed release (DR/EC) 81 mg PO DAILY tramadol 50 mg tablet 50 mg PO Q6H PRN (Reason: migraines) quetiapine 100 mg tablet 100 mg PO BEDTIME magnesium hydroxide 400 mg/5 mL Suspension 30 ml PO DAILY PRN (Reason: Constipation) gabapentin 300 mg capsule 300 mg PO BID bisacodyl 5 mg Tablet,Delayed Release (Dr/Ec) 10 mg PO BEDTIME PRN (Reason: Constipation) alum-mag hydroxide-simeth [Mylanta Maximum Strength] 400-400-40 mg/5 mL Suspension 10 ml PO Q4H PRN (Reason: Constipation) escitalopram oxalate 20 mg Tablet 20 mg PO DAILY cyclobenzaprine 5 mg tablet 5 mg PO TID PRN (Reason: muscle spasms) melatonin 10 mg Tablet 10 mg PO BEDTIME PRN (Reason: Insomnia) prednisone 20 mg tablet 20 mg PO DAILY Qty: 5 0RF oxycodone 5 mg tablet 5 mg PO BID PRN (Reason: pain) Qty: 4 0RF Rx Instructions: Partial Fill upon patient request. cyclobenzaprine 10 mg tablet 10 mg PO TID PRN (Reason: muscle spasm) Qty: 10 0RF meclizine 25 mg tablet 25 mg PO DAILY PRN (Reason: dizziness) Qty: 14 0RF lidocaine 5 % adhesive patch,medicated 1 patch topical DAILY PRN (Reason: pain) Qty: 15 0RF Rx Instructions: leave on most painful area for up to 12 hrs acetaminophen [Tylenol] 325 mg capsule 325 mg PO Q4H PRN (Reason: pain) Qty: 30 0RF trazodone 150 mg tablet 150 mg PO BEDTIME hydroxyzine HCl 50 mg tablet 50 mg PO BEDTIME (DME) miscellaneous medical supply Misc See Rx Instructions .Route Qty: 1 0RF Rx Instructions: Quad cane use As directed oxycodone-acetaminophen 5-325 mg tablet 1 tab PO Q8H PRN (Reason: pain (scale score 7-10)) 7 Days Qty: 20 0RF Rx Instructions: Partial Fill upon patient request. naloxone [Narcan] 4 mg/actuation spray,non-aerosol 4 mg intranasal Q2M PRN (Reason: opioid overdose) Qty: 2 0RF Rx Instructions: spray 1 dose into ONE nostril; alternate nostrils w each dose until help arrives Referrals: [facility] [Primary Care Provider, Medical] - 10/24/24 Print Language: Welsh
[2024-10-21 11:48] LABS: MANUAL DIFF FLAG NO
[2024-10-21 11:50] LABS: Hematocrit 30.8 % (42.0-52.0); Hemoglobin 10.3 g/dl (14.0-18.0); Imm Gran Abs Auto 0.12 X10*3/uL (0.00-0.03); Imm Gran Pct Auto 1.5 % (0.0-0.4); Lymphocytes Absolute Auto 0.5 X10*3/uL (1.2-4.9); Mean Corpuscular HGB Conc 33.4 g/dl (31.0-36.0); Mean Corpuscular Hemoglobin 28.2 pg (27.0-33.0); Mean Corpuscular Volume 84.4 fL (80.0-98.0); NRBC Abs Auto 0.000 X10*3/uL (0.0-0.012); NRBC Pct Auto 0.0 /100WBC (0.0-0.2); Red Blood Count 3.65 X10*6/uL (4.60-5.80); White Blood Count 7.8 X10*3/uL (4.8-10.8)
[2024-10-21 11:53] LABS: Platelet Count 99 X10*3/uL (160-400)
[2024-10-21 12:05] LABS: Alanine Aminotransferase 17 U/L (0-40); Albumin Level 3.9 g/dL (3.5-5.0); Alkaline Phosphatase 73 U/L (39-117); Anion Gap 11 (12-20); Aspartate Amino Transferase 16 U/L (5-37); Blood Urea Nitrogen 18 mg/dL (9-16); Calcium 7.8 mg/dL (8.4-10.2); Carbon Dioxide 23 mmol/L (22-29); Chloride 110 mmol/L (96-108); Creatinine Clr Calc Pharmacy 80.2; Estimated Glomerular Filt Rate > 60; Potassium 4.2 mmol/L (3.3-5.1); Sodium 140 mmol/L (135-145); Total Protein 5.9 g/dL (6.5-8.0)
[2024-10-21 12:18] LABS: Troponin-I High Sensitivity < 2.7 ng/L (<3.5-35.0)
--- OUTSIDE RECORDS SUMMARY | 2024-10-21 12:53 | XMS_ITS ---
Author Name [facility] Organization Unknown Results Test Name/Text Value Interpretation Date Range Source BKR DRUGS OF ABUSE NOTE 08/08/2024 [facility] fentaNYL Ur Ql Scn Negative 08/08/2024 - [facility] Benzodiaz Ur Ql Scn Negative 08/08/2024 - [facility] Opiates Ur Ql Scn Negative 08/08/2024 - [facility] Methadone Ur Ql Scn Negative 08/08/2024 - [facility] BZE Ur Ql Scn Negative 08/08/2024 - [facility] oxyCODONE Ur Ql Scn Positive Abnormal 08/08/2024 - [facility] Barbiturates Ur Ql Scn Negative 08/08/2024 - [facility] PCP Ur Ql Scn>25 ng/mL Negative 08/08/2024 - [facility] Cannabinoids Ur Ql Scn Negative 08/08/2024 - [facility] Amphetamines Ur Ql Scn Negative 08/08/2024 - [facility] BKR DRUGS OF ABUSE DISCLAIMER See Comment 08/08/2024 [facility] Troponin T SerPl HS-mCnc -1.0 ng/L 08/08/2024 [facility] Platelets.reticulate d # Bld Auto 4.1 x1000/uL 08/08/2024 - 20 [facility] Platelets.reticulate d NFr Bld Auto 5.8 % 08/08/2024 1.2 - 8.6 [facility] MCHC RBC Auto-mCnc 31.8 g/dL 08/08/2024 31 - 36 [facility] nRBC # Bld Auto 0.0 x 1000/uL 08/08/2024 0 - 1 [facility] WBC # Bld Auto 5.7 x1000/uL 08/08/2024 4 - 11 [facility] Platelet # Bld Auto 76.0 x1000/uL Below low normal 5 150 - 420 [facility] MCH RBC Qn Auto 28.1 pg 08/08/2024 27 - 33 [facility] RBC # Bld Auto 4.05 M/uL 08/08/2024 4 - 6 [facility] PMV Bld Auto 12.1 fL Above high normal 08/08/2024 8 - 12 [facility] Hct VFr Bld Auto 35.9 % Below low normal 08/08/2024 38.5 - 50 [facility] RDW RBC Auto-Rto 14.2 % 08/08/2024 11 - 15 [facility] MCV RBC Auto 88.6 fL 08/08/2024 80 - [address] nRBC/100 WBC Bld Auto-Rto 0.0 % 08/08/2024 0 - 1 [facility] Hgb Bld-mCnc 11.4 g/dL Below low normal 08/08/2024 13.2 - 17 .1 [facility] Basophils/leuk NFr Bld 0.0 % 08/08/2024 0 - 1.4 [facility] Ovalocytes Bld Ql Smear 1+ Abnormal 08/08/2024 - [facility] Monocytes/leuk NFr Bld Manual 4.3 % 08/08/2024 4 - 12 [facility] Basophils # Bld 0.0 x 1000/uL 08/08/2024 0 - 1 [facility] Monocytes # Bld Manual 0.25 x 1000/uL 08/08/2024 0 - 1 [facility] Eosinophil/leuk NFr Bld Manual 6.0 % Above high normal 08/08/2024 0 - 5 [facility] Lymphocytes # Bld Manual 0.88 x 1000/uL 08/08/2024 0.6 - 3.7 [facility] Neutrophils # Bld Manual 4.24 x 1000/uL 08/08/2024 2 - 7.6 [facility] Eosinophil # Bld Manual 0.34 x 1000/uL 08/08/2024 0 - 1 [facility] Lymphocytes/leuk NFr Bld Manual 15.4 % Below low normal 08/08/2024 17 - 50 [facility] Neuts Seg/leuk NFr Bld Manual 74.3 % Above high normal 08/08/2024 39 - 72 [facility] Normochromic Bld Ql Smear Reviewed 08/08/2024 [facility] Troponin T SerPl HS-mCnc 11.0 ng/L 08/08/2024 - [facility] Magnesium SerPl-mCnc 2.1 mg/dL 08/08/2024 1.7 - 2. 4 [facility] HCO3 SerPl-sCnc 27.0 mmol/L 08/08/2024 20 - 30 [facility] BKR CREATININE DELTA 0.58 Above high normal 08/08/2024 - [facility] Glucose SerPl-mCnc 115.0 mg/dL Above high normal 08/08/2024 70 - 100 [facility] Creat SerPl-mCnc 1.6 mg/dL Above high normal 08/08/2024 0.4 - 1.3 [facility] Sodium SerPl-sCnc 140.0 mmol/L 08/08/2024 136 - 14 4 [facility] BUN SerPl-mCnc 21.0 mg/dL 08/08/2024 8 - 23 [facility] Anion Gap3 SerPl-sCnc 9.0 08/08/2024 7 - 17 [facility] GFR/BSA.pred SerPlBld WCM-EEA-RwBOmf 48.0 mL/min/1.73m2 Below low normal 08/08/2024 - [facility] Potassium SerPl-sCnc 4.7 mmol/L 08/08/2024 3.3 - 5 .3 [facility] Chloride SerPl-sCnc 104.0 mmol/L 08/08/2024 98 - 1 07 [facility] BUN/Creat SerPl 13.1 08/08/2024 8 - 23 [facility] Calcium SerPl-mCnc 8.4 mg/dL Below low normal 08/08/2024 8.8 - 10.2 [facility] ALP SerPl-cCnc 70.0 U/L 08/08/2024 9 - 122 [facility] Albumin SerPl BCG-mCnc 3.5 g/dL Below low normal 08/08/2024 3.6 - 5.1 [facility] Potassium SerPl-sCnc 4.2 mmol/L 08/08/2024 3.3 - 5 .3 [facility] Prot SerPl-mCnc 5.8 g/dL Below low normal 08/08/2024 5.9 - 8.3 [facility] BUN/Creat SerPl 15.7 08/08/2024 8 - 23 [facility] BKR CREATININE DELTA -0.14 08/08/2024 - [facility] Bilirub SerPl-mCnc 0.2 mg/dL 08/08/2024 - [facility] Calcium SerPl-mCnc 7.8 mg/dL Below low normal 08/08/2024 8.8 - 10.2 [facility] ALT SerPl w/o P-5'-P-cCnc 16.0 U/L 08/08/2024 9 - 59 [facility] GFR/BSA.pred SerPlBld FEE-ZCC-XsNUju >60.0 mL/min/1.73m2 08/08/2024 - [facility] AST SerPl w P-5'-P-cCnc 17.0 U/L 08/08/2024 10 - 35 [facility] HCO3 SerPl-sCnc 25.0 mmol/L 08/08/2024 20 - 30 [facility] Anion Gap3 SerPl-sCnc 9.0 08/08/2024 7 - 17 [facility] Albumin/Glob SerPl 1.5 08/08/2024 1 - 2.2 [facility] Glucose SerPl-mCnc 147.0 mg/dL Above high normal 08/08/2024 70 - 100 [facility] BUN SerPl-mCnc 16.0 mg/dL 08/08/2024 8 - 23 [facility] AST/ALT SerPl-cRto 1.1 08/08/2024 - [facility] Sodium SerPl-sCnc 139.0 mmol/L 08/08/2024 136 - 14 4 [facility] Globulin Plas-mCnc 2.3 g/dL 08/08/2024 2 - 3.9 [facility] Creat SerPl-mCnc 1.02 mg/dL 08/08/2024 0.4 - 1.3 [facility] Chloride SerPl-sCnc 105.0 mmol/L 08/08/2024 98 - 1 07 [facility] Eosinophil/leuk NFr Bld Auto 7.6 % Above high normal 08/08/2024 0 - 5 [facility] Basophils # Bld Auto 0.05 x 1000/uL 08/08/2024 0 - 1 [facility] PMV Bld Auto 11.3 fL 08/08/2024 8 - 12 [facility] T RDW RBC Auto-Rto 14.0 % 08/08/2024 11 - 15 [facility] Eosinophil # Bld Auto 0.33 x 1000/uL 08/08/2024 0 - 1 [facility] Imm Granulocytes/leuk NFr Bld Auto 1.4 % Above high normal 08/08/2024 0 - 1 [facility] Platelet # Bld Auto 67.0 x1000/uL Below low normal 150 - 420 [facility] Monocytes # Bld Auto 0.54 x 1000/uL 08/08/2024 0 - 1 [facility] Neutrophils/leuk NFr Bld Auto 50.5 % 08/08/2024 39 - 72 [facility] MCHC RBC Auto-mCnc 32.9 g/dL 08/08/2024 31 - 36 [facility] Lymphocytes/leuk NFr Bld Auto 27.0 % 08/08/2024 17 - 50 [facility] nRBC/100 WBC Bld Auto-Rto 0.0 % 08/08/2024 0 - 1 [facility] RBC # Bld Auto 3.95 M/uL Below low normal 08/08/2024 4 - 6 [facility] Basophils/leuk NFr Bld Auto 1.1 % 08/08/2024 0 - 1.4 [facility] Lymphocytes # Bld Auto 1.18 x 1000/uL 08/08/2024 0.6 - 3.7 [facility] MCV RBC Auto 87.8 fL 08/08/2024 80 - 100 [facility] T nRBC # Bld Auto 0.0 x 1000/uL 08/08/2024 0 - 1 [facility] Monocytes/leuk NFr Bld Auto 12.4 % Above high normal 08/08/2024 4 - 12 [facility] Neutrophils # Bld Auto 2.21 x 1000/uL 08/08/2024 2 - 7.6 [facility] MCH RBC Qn Auto 28.9 pg 08/08/2024 27 - 33 [facility] Hct VFr Bld Auto 34.7 % Below low normal 08/08/2024 38.5 - 50 [facility] WBC # Bld Auto 4.4 x1000/uL 08/08/2024 4 - 11 [facility] Hgb Bld-mCnc 11.4 g/dL Below low normal 08/08/2024 13.2 - 17 .1 [facility] Imm Granulocytes # Bld Auto 0.06 x 1000/uL 08/08/2024 0 - 0.3 [facility] Platelets.reticulate d # Bld Auto 3.6 x1000/uL 08/08/2024 - 20 [facility] Platelets.reticulate d NFr Bld Auto 5.3 % 08/08/2024 1.2 - 8.6 [facility] TSH SerPl DL<=0.005 mIU/L-aCnc 2.91 uIU/mL 08/07/2024 - [facility] Vit B12 SerPl-mCnc 358.0 pg/mL 08/07/2024 232 - 12 45 [facility] Globulin Plas-mCnc 2.2 g/dL 08/07/2024 2 - 3.9 [facility] GFR/BSA.pred SerPlBld NUG-TLZ-CqQXzc >60.0 mL/min/1.73m2 08/07/2024 - [facility] BUN/Creat SerPl 17.2 08/07/2024 8 - 23 [facility] Albumin SerPl BCG-mCnc 3.8 g/dL 08/07/2024 3.6 - 5.1 [facility] Anion Gap3 SerPl-sCnc 9.0 08/07/2024 7 - 17 [facility] BKR CREATININE DELTA 0.13 08/07/2024 - [facility] Chloride SerPl-sCnc 106.0 mmol/L 08/07/2024 98 - 1 07 [facility] ALT SerPl w/o P-5'-P-cCnc 17.0 U/L 08/07/2024 9 - 59 [facility] Calcium SerPl-mCnc 8.4 mg/dL Below low normal 08/07/2024 8.8 - 10.2 [facility] Albumin/Glob SerPl 1.7 08/07/2024 1 - 2.2 [facility] AST/ALT SerPl-cRto 0.7 08/07/2024 - [facility] Sodium SerPl-sCnc 141.0 mmol/L 08/07/2024 136 - 14 4 [facility] BUN SerPl-mCnc 20.0 mg/dL 08/07/2024 8 - 23 [facility] Bilirub SerPl-mCnc 0.2 mg/dL 08/07/2024 - [facility] Creat SerPl-mCnc 1.16 mg/dL 08/07/2024 0.4 - 1.3 [facility] AST SerPl w P-5'-P-cCnc 12.0 U/L 08/07/2024 10 - 35 [facility] Prot SerPl-mCnc 6.0 g/dL 08/07/2024 5.9 - 8.3 [facility] Potassium SerPl-sCnc 4.4 mmol/L 08/07/2024 3.3 - 5 .3 [facility] HCO3 SerPl-sCnc 26.0 mmol/L 08/07/2024 20 - 30 [facility] ALP SerPl-cCnc 73.0 U/L 08/07/2024 9 - 122 [facility] Glucose SerPl-mCnc 134.0 mg/dL Above high normal 08/07/2024 70 - 100 [facility] Platelets.reticulate d # Bld Auto 3.5 x1000/uL 08/07/2024 - 20 [facility] Platelets.reticulate d NFr Bld Auto 5.0 % 08/07/2024 1.2 - 8.6 [facility] Monocytes/leuk NFr Bld Auto 12.4 % Above high normal 08/07/2024 4 - 12 [facility] nRBC/100 WBC Bld Auto-Rto 0.0 % 08/07/2024 0 - 1 [facility] Neutrophils # Bld Auto 2.41 x 1000/uL 08/07/2024 2 - 7.6 [facility] Imm Granulocytes # Bld Auto 0.07 x 1000/uL 08/07/2024 0 - 0.3 [facility] MCH RBC Qn Auto 28.2 pg 08/07/2024 27 - 33 [facility] Basophils # Bld Auto 0.05 x 1000/uL 08/07/2024 0 - 1 [facility] Eosinophil/leuk NFr Bld Auto 7.3 % Above high normal 08/07/2024 0 - 5 [facility] MCV RBC Auto 86.9 fL 08/07/2024 80 - 100 [facility] T Eosinophil # Bld Auto 0.34 x 1000/uL 08/07/2024 0 - 1 [facility] WBC # Bld Auto 4.7 x1000/uL 08/07/2024 4 - 11 [facility] RBC # Bld Auto 4.11 M/uL 08/07/2024 4 - 6 [facility] Hgb Bld-mCnc 11.6 g/dL Below low normal 08/07/2024 13.2 - 17 .1 [facility] Lymphocytes # Bld Auto 1.22 x 1000/uL 08/07/2024 0.6 - 3.7 [facility] Monocytes # Bld Auto 0.58 x 1000/uL 08/07/2024 0 - 1 [facility] Neutrophils/leuk NFr Bld Auto 51.6 % 08/07/2024 39 - 72 [facility] Platelet # Bld Auto 69.0 x1000/uL Below low normal 150 - 420 [facility] Imm Granulocytes/leuk NFr Bld Auto 1.5 % Above high normal 08/07/2024 0 - 1 [facility] Basophils/leuk NFr Bld Auto 1.1 % 08/07/2024 0 - 1.4 [facility] nRBC # Bld Auto 0.0 x 1000/uL 08/07/2024 0 - 1 [facility] PMV Bld Auto 11.0 fL 08/07/2024 8 - 12 [facility] T Hct VFr Bld Auto 35.7 % Below low normal 08/07/2024 38.5 - 50 [facility] MCHC RBC Auto-mCnc 32.5 g/dL 08/07/2024 31 - 36 [facility] RDW RBC Auto-Rto 14.0 % 08/07/2024 11 - 15 [facility] Lymphocytes/leuk NFr Bld Auto 26.1 % 08/07/2024 17 - 50 [facility] PSA SerPl-mCnc 0.556 ng/mL 08/06/2024 - [facility] BUN/Creat SerPl 15.5 08/06/2024 8 - 23 [facility] Globulin Plas-mCnc 2.1 g/dL 08/06/2024 2 - 3.9 [facility] ALP SerPl-cCnc 65.0 U/L 08/06/2024 9 - 122 [facility] GFR/BSA.pred SerPlBld LJU-WXH-RdREki >60.0 mL/min/1.73m2 08/06/2024 - [facility] Creat SerPl-mCnc 1.03 mg/dL 08/06/2024 0.4 - 1.3 [facility] Albumin SerPl BCG-mCnc 3.7 g/dL 08/06/2024 3.6 - 5.1 [facility] Calcium SerPl-mCnc 7.9 mg/dL Below low normal 08/06/2024 8.8 - 10.2 [facility] Glucose SerPl-mCnc 115.0 mg/dL Above high normal 08/06/2024 70 - 100 [facility] ALT SerPl w/o P-5'-P-cCnc 17.0 U/L 08/06/2024 9 - 59 [facility] Albumin/Glob SerPl 1.8 08/06/2024 1 - 2.2 [facility] HCO3 SerPl-sCnc 25.0 mmol/L 08/06/2024 20 - 30 [facility] BUN SerPl-mCnc 16.0 mg/dL 08/06/2024 8 - 23 [facility] Potassium SerPl-sCnc 4.5 mmol/L 08/06/2024 3.3 - 5 .3 [facility] Sodium SerPl-sCnc 140.0 mmol/L 08/06/2024 136 - 14 4 [facility] Anion Gap3 SerPl-sCnc 11.0 08/06/2024 7 - 17 [facility] AST SerPl w P-5'-P-cCnc 20.0 U/L 08/06/2024 10 - 35 [facility] Bilirub SerPl-mCnc 0.3 mg/dL 08/06/2024 - [facility] Prot SerPl-mCnc 5.8 g/dL Below low normal 08/06/2024 5.9 - 8.3 [facility] AST/ALT SerPl-cRto 1.2 08/06/2024 - [facility] Chloride SerPl-sCnc 104.0 mmol/L 08/06/2024 98 - 1 07 [facility] BKR CREATININE DELTA -0.06 08/06/2024 - [facility] Platelets.reticulate d NFr Bld Auto 5.9 % 08/06/2024 1.2 - 8.6 [facility] Platelets.reticulate d # Bld Auto 4.1 x1000/uL 08/06/2024 - 20 [facility] MCV RBC Auto 86.8 fL 08/06/2024 80 - 100 [facility] T Hct VFr Bld Auto 34.7 % Below low normal 08/06/2024 38.5 - 50 [facility] WBC # Bld Auto 4.8 x1000/uL 08/06/2024 4 - 11 [facility] Eosinophil/leuk NFr Bld Auto 6.5 % Above high normal 08/06/2024 0 - 5 [facility] Lymphocytes/leuk NFr Bld Auto 24.9 % 08/06/2024 17 - 50 [facility] MCHC RBC Auto-mCnc 32.9 g/dL 08/06/2024 31 - 36 [facility] Basophils/leuk NFr Bld Auto 1.0 % 08/06/2024 0 - 1.4 [facility] Lymphocytes # Bld Auto 1.19 x 1000/uL 08/06/2024 0.6 - 3.7 [facility] RDW RBC Auto-Rto 14.0 % 08/06/2024 11 - 15 [facility] RBC # Bld Auto 4.0 M/uL 08/06/2024 4 - 6 [facility] PMV Bld Auto 12.2 fL Above high normal 08/06/2024 8 - 12 [facility] Imm Granulocytes/leuk NFr Bld Auto 1.3 % Above high normal 08/06/2024 0 - 1 [facility] Basophils # Bld Auto 0.05 x 1000/uL 08/06/2024 0 - 1 [facility] Imm Granulocytes # Bld Auto 0.06 x 1000/uL 08/06/2024 0 - 0.3 [facility] Platelet # Bld Auto 69.0 x1000/uL Below low normal 150 - 420 [facility] Neutrophils # Bld Auto 2.57 x 1000/uL 08/06/2024 2 - 7.6 [facility] Monocytes # Bld Auto 0.59 x 1000/uL 08/06/2024 0 - 1 [facility] Neutrophils/leuk NFr Bld Auto 53.9 % 08/06/2024 39 - 72 [facility] nRBC/100 WBC Bld Auto-Rto 0.0 % 08/06/2024 0 - 1 [facility] Eosinophil # Bld Auto 0.31 x 1000/uL 08/06/2024 0 - 1 [facility] Monocytes/leuk NFr Bld Auto 12.4 % Above high normal 08/06/2024 4 - 12 [facility] nRBC # Bld Auto 0.0 x 1000/uL 08/06/2024 0 - 1 [facility] MCH RBC Qn Auto 28.5 pg 08/06/2024 27 - 33 [facility] Hgb Bld-mCnc 11.4 g/dL Below low normal 08/06/2024 13.2 - 17 .1 [facility] BKR REFLEX URINE CULTURE See Comment 08/05/2024 [facility] Hgb Ur Ql Strip.auto Negative 08/05/2024 - [facility] WBC # Ur Strip Negative 08/05/2024 - [facility] Clarity Ur Refract.auto Clear 08/05/2024 - [facility] Glucose Ur Strip.auto-mCnc Negative 08/05/2024 - [facility] Color Ur Auto Yellow 08/05/2024 - [facility] Nitrite Ur Ql Strip.auto Negative 08/05/2024 - [facility] Prot Ur Strip.auto-mCnc Negative 08/05/2024 - [facility] Sp Gr Ur Refract.auto 1.015 08/05/2024 1.005 - 1.03 [facility] pH Ur Strip.auto 7.0 08/05/2024 5.5 - 7.5 [facility] Urobilinogen Ur Strip-mCnc <=2.0 mg/dL [facility]/05[facility]2024 [facility].auto-mCnc Negative 08/05/2024 - [facility] BKR TEST RECEIVED Yes 08/05/2024 [facility] Bilirub Ur Ql Strip.auto Negative 08/05/2024 - [facility] HbA1c MFr Bld 6.5 % Above high normal 08/05/2024 4 - 5.6 [facility] BKR ESTIMATED AVERAGE GLUCOSE 140.0 mg/dL 08/05/2024 [facility] Sodium SerPl-sCnc 142.0 mmol/L Normal 08/04/2024 136 - 14 4 [facility] Potassium SerPl-sCnc 4.4 mmol/L Normal 08/04/2024 3.3 - 5 .3 [facility] Anion Gap3 SerPl-sCnc 8.0 Normal 08/04/2024 7 - 17 [facility] BUN/Creat SerPl 13.8 Normal 08/04/2024 8 - 23 [facility] Calcium SerPl-mCnc 7.9 mg/dL Below low normal 08/04/2024 8.8 - 10.2 [facility] HCO3 SerPl-sCnc 28.0 mmol/L Normal 08/04/2024 20 - 30 [facility] Creat SerPl-mCnc 1.09 mg/dL Normal 08/04/2024 0.4 - 1.3 [facility] BUN SerPl-mCnc 15.0 mg/dL Normal 08/04/2024 8 - 23 [facility] Glucose SerPl-mCnc 115.0 mg/dL Above high normal 08/04/2024 70 - 100 [facility] BKR CREATININE DELTA -0.09 Normal 08/04/2024 - [facility] GFR/BSA.pred SerPlBld EUF-DZK-VwJMnb >60.0 mL/min/1.73m2 Normal 08/04/2024 - [facility] Chloride SerPl-sCnc 106.0 mmol/L Normal 08/04/2024 98 - 1 07 [facility] Platelets.reticulate d NFr Bld Auto 4.8 % Normal 08/04/2024 1.2 - 8.6 [facility] Platelets.reticulate d # Bld Auto 3.2 x1000/uL Normal 08/04/2024 - 20 [facility] Hct VFr Bld Auto 33.9 % Below low normal 08/04/2024 38.5 - 50 [facility] WBC # Bld Auto 4.9 x1000/uL Normal 08/04/2024 4 - 11 [facility] Lymphocytes/leuk NFr Bld Auto 20.0 % Normal 08/04/2024 17 - 50 [facility] Monocytes # Bld Auto 0.55 x 1000/uL Normal 08/04/2024 0 - 1 [facility] MCH RBC Qn Auto 28.1 pg Normal 08/04/2024 27 - 33 [facility] MCV RBC Auto 86.5 fL Normal 08/04/2024 80 - 100 [facility] T Eosinophil/leuk NFr Bld Auto 6.3 % Above high normal 08/04/2024 0 - 5 [facility] RDW RBC Auto-Rto 14.1 % Normal 08/04/2024 11 - 15 [facility] nRBC/100 WBC Bld Auto-Rto 0.0 % Normal 08/04/2024 0 - 1 [facility] nRBC # Bld Auto 0.0 x 1000/uL Normal 08/04/2024 0 - 1 [facility] Imm Granulocytes # Bld Auto 0.06 x 1000/uL Normal 08/04/2024 0 - 0.3 [facility] Monocytes/leuk NFr Bld Auto 11.1 % Normal 08/04/2024 4 - 12 [facility] RBC # Bld Auto 3.92 M/uL Below low normal 08/04/2024 4 - 6 [facility] Lymphocytes # Bld Auto 0.99 x 1000/uL Normal 08/04/2024 0.6 - 3.7 [facility] Neutrophils # Bld Auto 2.98 x 1000/uL Normal 08/04/2024 2 - 7.6 [facility] Basophils # Bld Auto 0.05 x 1000/uL Normal 08/04/2024 0 - 1 [facility] Hgb Bld-mCnc 11.0 g/dL Below low normal 08/04/2024 13.2 - 17 .1 [facility] Basophils/leuk NFr Bld Auto 1.0 % Normal 08/04/2024 0 - 1.4 [facility] Platelet # Bld Auto 67.0 x1000/uL Below low normal 150 - 420 [facility] MCHC RBC Auto-mCnc 32.4 g/dL Normal 08/04/2024 31 - 36 [facility] Imm Granulocytes/leuk NFr Bld Auto 1.2 % Above high normal 08/04/2024 0 - 1 [facility] Eosinophil # Bld Auto 0.31 x 1000/uL Normal 08/04/2024 0 - 1 [facility] Neutrophils/leuk NFr Bld Auto 60.4 % Normal 08/04/2024 39 - 72 [facility] PMV Bld Auto 11.5 fL Normal 08/04/2024 8 - 12 [facility] T Sodium SerPl-sCnc 143.0 mmol/L Normal 08/03/2024 136 - 14 4 [facility] BUN SerPl-mCnc 15.0 mg/dL Normal 08/03/2024 8 - 23 [facility] BKR CREATININE DELTA -0.23 Normal 08/03/2024 - [facility] HCO3 SerPl-sCnc 25.0 mmol/L Normal 08/03/2024 20 - 30 [facility] Potassium SerPl-sCnc 4.5 mmol/L Normal 08/03/2024 3.3 - 5 .3 [facility] GFR/BSA.pred SerPlBld UJL-PDF-EiWGye >60.0 mL/min/1.73m2 Normal 08/03/2024 - [facility] Anion Gap3 SerPl-sCnc 9.0 Normal 08/03/2024 7 - 17 [facility] Chloride SerPl-sCnc 109.0 mmol/L Above high normal 98 - 107 [facility] Creat SerPl-mCnc 1.18 mg/dL Normal 08/03/2024 0.4 - 1.3 [facility] BUN/Creat SerPl 12.7 Normal 08/03/2024 8 - 23 [facility] Glucose SerPl-mCnc 114.0 mg/dL Above high normal 08/03/2024 70 - 100 [facility] Calcium SerPl-mCnc 7.8 mg/dL Below low normal 08/03/2024 8.8 - 10.2 [facility] MCV RBC Auto 87.3 fL Normal 08/03/2024 80 - 100 [facility] T Eosinophil # Bld Auto 0.3 x 1000/uL Normal 08/03/2024 0 - 1 [facility] Monocytes # Bld Auto 0.58 x 1000/uL Normal 08/03/2024 0 - 1 [facility] nRBC # Bld Auto 0.0 x 1000/uL Normal 08/03/2024 0 - 1 [facility] Platelet # Bld Auto 67.0 x1000/uL Below low normal 150 - 420 [facility] RBC # Bld Auto 3.87 M/uL Below low normal 08/03/2024 4 - 6 [facility] Basophils # Bld Auto 0.04 x 1000/uL Normal 08/03/2024 0 - 1 [facility] Eosinophil/leuk NFr Bld Auto 6.5 % Above high normal 08/03/2024 0 - 5 [facility] Neutrophils # Bld Auto 2.45 x 1000/uL Normal 08/03/2024 2 - 7.6 [facility] Monocytes/leuk NFr Bld Auto 12.6 % Above high normal 08/03/2024 4 - 12 [facility] Hct VFr Bld Auto 33.8 % Below low normal 08/03/2024 38.5 - 50 [facility] Lymphocytes # Bld Auto 1.19 x 1000/uL Normal 08/03/2024 0.6 - 3.7 [facility] MCHC RBC Auto-mCnc 32.5 g/dL Normal 08/03/2024 31 - 36 [facility] PMV Bld Auto 11.3 fL Normal 08/03/2024 8 - 12 [facility] T Imm Granulocytes # Bld Auto 0.05 x 1000/uL Normal 08/03/2024 0 - 0.3 [facility] nRBC/100 WBC Bld Auto-Rto 0.0 % Normal 08/03/2024 0 - 1 [facility] Imm Granulocytes/leuk NFr Bld Auto 1.1 % Above high normal 08/03/2024 0 - 1 [facility] Lymphocytes/leuk NFr Bld Auto 25.8 % Normal 08/03/2024 17 - 50 [facility] RDW RBC Auto-Rto 14.2 % Normal 08/03/2024 11 - 15 [facility] WBC # Bld Auto 4.6 x1000/uL Normal 08/03/2024 4 - 11 [facility] MCH RBC Qn Auto 28.4 pg Normal 08/03/2024 27 - 33 [facility] Neutrophils/leuk NFr Bld Auto 53.1 % Normal 08/03/2024 39 - 72 [facility] Hgb Bld-mCnc 11.0 g/dL Below low normal 08/03/2024 13.2 - 17 .1 [facility] Basophils/leuk NFr Bld Auto 0.9 % Normal 08/03/2024 0 - 1.4 [facility] Platelets.reticulate d # Bld Auto 3.1 x1000/uL Normal 08/03/2024 - 20 [facility] Platelets.reticulate d NFr Bld Auto 4.7 % Normal 08/03/2024 1.2 - 8.6 [facility] Troponin T SerPl HS-mCnc -2.0 ng/L Normal 08/02/2024 [facility] Lipase SerPl-cCnc 31.0 U/L Normal 08/02/2024 11 - 55 [facility] Calcium SerPl-mCnc 7.8 mg/dL Below low normal 08/02/2024 8.8 - 10.2 [facility] Chloride SerPl-sCnc 105.0 mmol/L Normal 08/02/2024 98 - 1 07 [facility] Creat SerPl-mCnc 1.41 mg/dL Above high normal 08/02/2024 0.4 - 1.3 [facility] BUN SerPl-mCnc 16.0 mg/dL Normal 08/02/2024 8 - 23 [facility] HCO3 SerPl-sCnc 23.0 mmol/L Normal 08/02/2024 20 - 30 [facility] Anion Gap3 SerPl-sCnc 11.0 Normal 08/02/2024 7 - 17 [facility] Sodium SerPl-sCnc 139.0 mmol/L Normal 08/02/2024 136 - 14 4 [facility] Potassium SerPl-sCnc 4.3 mmol/L Normal 08/02/2024 3.3 - 5 .3 [facility] BKR CREATININE DELTA Normal 08/02/2024 [facility] BUN/Creat SerPl 11.3 Normal 08/02/2024 8 - 23 [facility] Glucose SerPl-mCnc 161.0 mg/dL Above high normal 08/02/2024 70 - 100 [facility] GFR/BSA.pred SerPlBld OTL-PCU-ZwMPdd 56.0 mL/min/1.73m2 Below low normal 08/02/2024 - [facility] Ethanol SerPl-mCnc <10.0 mg/dL Normal 08/02/2024 - 10 [facility] Magnesium SerPl-mCnc 2.1 mg/dL Normal 08/02/2024 1.7 - 2. 4 [facility] ALT SerPl w/o P-5'-P-cCnc 29.0 U/L Normal 08/02/2024 9 - 59 [facility] Globulin Plas-mCnc 2.6 g/dL Normal 08/02/2024 2 - 3.9 [facility] Prot SerPl-mCnc 6.6 g/dL Normal 08/02/2024 5.9 - 8.3 [facility] Albumin/Glob SerPl 1.5 Normal 08/02/2024 1 - 2.2 [facility] AST SerPl w P-5'-P-cCnc 29.0 U/L Normal 08/02/2024 10 - 35 [facility] AST/ALT SerPl-cRto 1.0 Normal 08/02/2024 - [facility] ALP SerPl-cCnc 69.0 U/L Normal 08/02/2024 9 - 122 [facility] Bilirub Direct SerPl-mCnc 0.1 mg/dL Normal 08/02/2024 - [facility] Bilirub SerPl-mCnc 0.4 mg/dL Normal 08/02/2024 - [facility] Albumin SerPl BCG-mCnc 4.0 g/dL Normal 08/02/2024 3.6 - 5.1 [facility] Troponin T SerPl HS-mCnc 9.0 ng/L Normal 08/02/2024 - [facility] Prothrombin time 11.4 seconds Normal 08/02/2024 9.5 - 12. 1 [facility] INR PPP 1.09 Normal 08/02/2024 0.9 - 1.16 [facility] Platelets.reticulate d # Bld Auto 3.7 x1000/uL Normal 08/02/2024 - 20 [facility] Platelets.reticulate d NFr Bld Auto 4.8 % Normal 08/02/2024 1.2 - 8.6 [facility] Neutrophils # Bld Auto 3.86 x 1000/uL Normal 08/02/2024 2 - 7.6 [facility] Monocytes/leuk NFr Bld Auto 7.9 % Normal 08/02/2024 4 - 12 [facility] RBC # Bld Auto 4.06 M/uL Normal 08/02/2024 4 - 6 [facility] MCHC RBC Auto-mCnc 33.1 g/dL Normal 08/02/2024 31 - 36 [facility] Lymphocytes # Bld Auto 0.92 x 1000/uL Normal 08/02/2024 0.6 - 3.7 [facility] Eosinophil/leuk NFr Bld Auto 4.0 % Normal 08/02/2024 0 - 5 [facility] Eosinophil # Bld Auto 0.22 x 1000/uL Normal 08/02/2024 0 - 1 [facility] WBC # Bld Auto 5.6 x1000/uL Normal 08/02/2024 4 - 11 [facility] Hct VFr Bld Auto 35.0 % Below low normal 08/02/2024 38.5 - 50 [facility] PMV Bld Auto 11.2 fL Normal 08/02/2024 8 - 12 [facility] T nRBC # Bld Auto 0.0 x 1000/uL Normal 08/02/2024 0 - 1 [facility] Hgb Bld-mCnc 11.6 g/dL Below low normal 08/02/2024 13.2 - 17 .1 [facility] nRBC/100 WBC Bld Auto-Rto 0.0 % Normal 08/02/2024 0 - 1 [facility] RDW RBC Auto-Rto 14.1 % Normal 08/02/2024 11 - 15 [facility] Lymphocytes/leuk NFr Bld Auto 16.5 % Below low normal 08/02/2024 17 - 50 [facility] Basophils # Bld Auto 0.05 x 1000/uL Normal 08/02/2024 0 - 1 [facility] MCV RBC Auto 86.2 fL Normal 08/02/2024 80 - 100 [facility] T Neutrophils/leuk NFr Bld Auto 69.4 % Normal 08/02/2024 39 - 72 [facility] MCH RBC Qn Auto 28.6 pg Normal 08/02/2024 27 - 33 [facility] Monocytes # Bld Auto 0.44 x 1000/uL Normal 08/02/2024 0 - 1 [facility] Platelet # Bld Auto 77.0 x1000/uL Below low normal 150 - 420 [facility] Imm Granulocytes/leuk NFr Bld Auto 1.3 % Above high normal 08/02/2024 0 - 1 [facility] Imm Granulocytes # Bld Auto 0.07 x 1000/uL Normal 08/02/2024 0 - 0.3 [facility] Basophils/leuk NFr Bld Auto 0.9 % Normal 08/02/2024 0 - 1.4 [facility] History of Medication Use Medication Directions Dispensed Refills Start Date End Date Stat cefuroxime (CEFTIN) 500 mg tablet Take 1 tablet (500 mg total) by mouth 2 (two) times daily for 2 days. 08/08/2024 08/12/19 active cefTRIAXone (ROCEPHIN) 1 g in sodium chloride 0.9% PF 10 mL (100 mg/mL) 1 g (rounded from 1,000 mg), IV Push, EVERY 24 HOURS, First dose on Mon08/05/24 at 1415, For 5 days, Intravenous ceftriaxone must not be infused through the same line as calcium containing fluids (including calcium gluconate, calcium chloride, Lactated Ringers, total parenteral nutrition, dialysis so 08/05/2024 08/09/19 25 aborted dextrose (GLUCOSE) oral liquid 15 g [Order 1 Start] Name: dextrose (GLUCOSE) oral liquid 15 g Signed Summary: 15 g, Oral, EVERY 15 MIN PRN, If blood glucose 50 - 69 mg/dL (or 70 - 79 mg/dL with symptoms of hypoglycemia), Starting on Mon08/05/24 at 1724, If alert and able to tolerate enteral intake (not NPO or vomiting). Only administe 08/05/2024 08/09/19 aborted dextrose (GLUCOSE) oral liquid 30 g [Order 1 Start] Name: dextrose (GLUCOSE) oral liquid 30 g Signed Summary: 30 g, Oral, EVERY 15 MIN PRN, If blood glucose less than 50 mg/dL, Starting on Mon08/05/24 at 1724, If alert and able to tolerate enteral intake (not NPO or vomiting). Only administer ONE treatment option. Notify covering cli 08/05/2024 08/09/19 aborted dextrose 10% injection 125 mL 125 mL (12.5 g), Intravenous, Administer over 15 Minutes, EVERY 15 MIN PRN, blood glucose 50 - 69 mg/dL (or 70 -79 mg/dL with symptoms of hypoglycemia), Starting on Mon08/05/24 at 1724, Only administer if patient is NOT alert, not cooperative or unable to take enteral (NPO or vomiting). Notify cover 08/05/2024 08/09/19 aborted dextrose 10% injection 250 mL 250 mL (25 g), Intravenous, Administer over 15 Minutes, EVERY 15 MIN PRN, blood glucose less than 50 mg/dL, Starting on Mon08/05/24 at 1724, Only administer if patient is NOT alert, not cooperative or unable to take enteral (NPO or vomiting). Notify covering clinician, repeat blood glucose (BG) IMME 08/05/2024 08/09/19 aborted glucagon 1 mg in water for injection, sterile 1 mL (1 mg/mL) 1 mg, Intramuscular, ONCE PRN, If blood glucose less than 70 mg/dL (or 70 - 79 mg/dL with symptoms of hypoglycemia), Starting on Mon08/05/24 at 1724, For 1 dose, Only administer if patient has NO IV ACCESS available AND is not alert, not cooperative or unable to take enteral (NPO or vomiting). Notify 08/05/2024 08/09/19 aborted lidocaine 4 % topical patch 1 patch 1 patch, Transdermal, Administer over 12 Hours, EVERY 24 HOURS, First dose on Mon08/05/24 at 1415, Apply to: Back, Right 08/05/2024 08/09/19 aborted oxyCODONE-acetaminop hen (PERCOCET) 5-325 mg per tablet Take 1 tablet by mouth every 4 (four) hours as needed for pain. 08/05/2024 08/09/19 active insulin lispro (Admelog, HumaLOG) Correction Scale 1-18 Units 1-18 Units, Subcutaneous, 3 Times Daily Before Meals, First dose on 08/05/24 at 1730, IF PATIENT EATING: ADD TO PRE-MEAL BOLUS WHEN BG IS HIGH BEFORE MEAL; IN NPO PATIENTS: GIVE ALONE q6H Notify MD/KANDI if blood glucose is > 400 mg/dL Common Side Effects: Hypoglycemia., Select Sliding Scale Inten 08/05/2024 08/08/19 aborted LORazepam (ATIVAN) tablet 0.5 mg 0.5 mg, Oral, ONCE, On Mon08/05/24 at 1815, For 1 dose, Common Side Effects: Confusion, dizziness, drowsiness, mood changes. 08/05/2024 08/06/19 completed acetaminophen (TYLENOL) tablet 650 mg 650 mg, Oral, EVERY 6 HOURS PRN, mild Pain (PIS 1-3), for adult patients may also give for higher pain score per patient preference, Starting on Mon08/04/24 at 1006, Maximum dose of acetaminophen is 4000 mg from all sources in 24 hours. 08/04/2024 08/09/19 aborted escitalopram oxalate (LEXAPRO) tablet 20 mg 20 mg, Oral, Daily, First dose on Mon08/03/24 at 0900, OP SIG:Take 1 tablet (20 mg total) by mouth daily. 08/03/2024 08/09/19 aborted levothyroxine (SYNTHROID, LEVOTHROID) tablet 75 mcg 75 mcg, Oral, Daily @0600, First dose (after last modification) on Mon08/07/24 at 0600, Administer on an empty stomach (30 to 60 minutes before food or at least 3 hours after meal). If patient receiving enteral tube feeds, HOLD for 1 hour before and after levothyroxine administration., OP SIG:Take 1 08/03/2024 08/09/19 aborted QUEtiapine (SEROquel) Immediate Release tablet 100 mg 100 mg, Oral, Nightly, First dose on Mon08/02/24 at 2100, Common Side Effects: Drowsiness, headache, weight gain, extrapyramidal symptoms., OP SIG:Take 1 tablet (100 mg total) by mouth nightly. 08/03/2024 08/09/19 aborted sodium chloride 0.9 % flush 3 mL 3 mL, IV Push, Every 8 Hours Scheduled, First dose on Mon08/02/24 at 2200, For PIV lock flush only. 08/03/2024 08/09/19 aborted sotaloL (BETAPACE) tablet 80 mg 80 mg, Oral, 2 Times Daily Scheduled, First dose on Mon08/02/24 at 2100, Hold for SBP < 90 mm Hg or HR < 50 BPM, Reason For Use: Atrial fibrillation/flutte r, OP SIG:Take 1 tablet (80 mg total) by mouth 2 (two) times daily. 08/03/2024 08/09/19 aborted melatonin tablet 3 mg 3 mg, Oral, Nightly PRN, insomnia, Starting on Mon08/02/24 at 1738, Recommended to administer at least 60 minutes prior to intended bedtime 08/02/2024 08/09/19 aborted acetaminophen (TYLENOL) tablet 975 mg 975 mg, Oral, ONCE, On Mon08/02/24 at 1230, For 1 dose, Exclusion Criteria: o History of liver disease or liver transplant o Active Vomiting o Known allergy to acetaminophen o Patients who have taken acetaminophen in the past 4 hours or have had a combined total 24 hour dose of 4 grams of acetamino 08/02/2024 08/03/19 completed diphenhydrAMINE (BENADRYL) capsule 25 mg 25 mg, Oral, ONCE, On Mon08/02/24 at 1315, For 1 dose, Common Side Effects: Drowsiness, stomach upset, confusion, dry mouth. 08/02/2024 08/03/19 completed iohexoL (OMNIPAQUE) 350 mg iodine/mL injection 100 mL 100 mL, Intravenous, IMG ONCE PRN, other, Starting on Mon08/02/24 at 1106, For 1 dose, Vesicant agents may cause severe tissue damage, including necrosis, if they extravasate into tissue; Common Side Effects: Headache, nausea, allergic reaction. 08/02/2024 08/03/19 completed metoclopramide (REGLAN) injection 10 mg 10 mg, Intravenous, ONCE, On Mon08/02/24 at 1315, For 1 dose, Pharmacist will implement Pharmacist IV to Enteral Conversion Protocol unless otherwise specified: Implement Protocol, Pharmacist will implement [facility] Renal Dose Adjustment Protocol unless otherwise specified: Implement Protocol 08/02/2024 08/03/19 completed ondansetron (PF) (ZOFRAN) injection 4 mg 4 mg, IV Push, ONCE, On Mon08/02/24 at 1045, For 1 dose, Maximum IV Push dose of 16 mg. If ordered IV Push administer undiluted over 2 minutes. Common side effects include: lightheaded, stomach upset, and headache. Irritant 08/02/2024 08/03/19 completed risperiDONE (RisperDAL) tablet 0.5 mg 0.5 mg, Oral, 3 Times Daily Scheduled, First dose on Mon08/02/24 at 2100, OP SIG:Take 1 tablet (0.5 mg total) by mouth 3 (three) times daily. 06/13/2024 08/09/19 aborted traZODone (DESYREL) tablet 150 mg 150 mg, Oral, Nightly, First dose on Mon08/02/24 at 2100, Common Side Effects: Sedation, headache, dizziness, nausea., OP SIG:Take 1 tablet (150 mg total) by mouth nightly. 06/13/2024 08/09/19 aborted escitalopram oxalate (LEXAPRO) 20 mg tablet Take 1 tablet (20 mg total) by mouth daily. 06/13/2024 active hydrOXYzine (ATARAX) 50 mg tablet Take 1 tablet (50 mg total) by mouth Every 12 hours as needed. 06/13/2024 active QUEtiapine (SEROQUEL) 100 mg Immediate Release tablet Take 1 tablet (100 mg total) by mouth nightly. 06/13/2024 active metFORMIN (GLUCOPHAGE) 500 mg Immediate Release tablet Take 1 tablet (500 mg total) by mouth 2 (two) times daily with breakfast and dinner. 03/13/2024 active rivaroxaban (XARELTO) tablet Tab 20 mg 20 mg, Oral, Daily @1700, First dose (after last modification) on Mon08/02/24 at 1745, For ORAL administration, may crush tablets and mix with applesauce. For GASTRIC TUBE administration, crush tablet and suspend in 50 mL of water. Suspension should be immediately delivered via NG/OG/PEG tube. Flush 02/01/2024 08/09/19 25 aborted isosorbide mononitrate (IMDUR) 30 mg 24 hr extended release tablet Take 1 tablet (30 mg total) by mouth daily. 02/01/2024 active lisinopriL (PRINIVIL,ZESTRIL) tablet 2.5 mg 2.5 mg, Oral, Daily, First dose on 08/03/24 at 0900, Hold for SBP < 90 mm Hg Common Side Effects: Hypotension, dizziness., OP SIG:Take 1 tablet (2.5 mg total) by mouth daily. 12/14/2023 08/09/19 25 aborted sotalol (BETAPACE) 160 MG tablet Take 0.5 tablets (80 mg total) by mouth daily. 11/06/2015 08/04/19 25 aborted tamsulosin (FLOMAX) 0.4 mg Cp24 24 hr capsule Take 1 capsule (0.4 mg total) by mouth daily. 11/06/2015 08/04/19 25 aborted ALBUTEROL INHL Inhale into the lungs as needed. 08/08/19 25 aborted aspirin 81 MG EC tablet Take 81 mg by mouth daily. 08/04/19 25 aborted diltiazem (CARDIZEM CD) 120 MG 24 hr capsule Take 120 mg by mouth nightly. 08/04/19 25 aborted divalproex (DEPAKOTE DR) 500 MG 12 hr tablet Take 500 mg by mouth 2 (two) times daily. 08/04/19 25 aborted febuxostat (ULORIC) 80 mg Tab Take 80 mg by mouth daily. 08/04/19 25 aborted gemfibrozil (LOPID) 600 MG tablet Take 600 mg by mouth 2 (two) times daily before breakfast and dinner. 08/04/19 25 aborted montelukast (SINGULAIR) 10 mg tablet Take 10 mg by mouth nightly. 08/04/19 25 aborted omeprazole (PRILOSEC) 10 MG capsule Take 10 mg by mouth daily. 08/04/19 25 aborted PARoxetine (PAXIL) 20 MG tablet Take 20 mg by mouth nightly. 08/04/19 25 aborted tiotropium (SPIRIVA) 18 mcg capsule for inhaler Inhale 18 mcg into the lungs daily. 08/04/19 25 aborted levothyroxine (SYNTHROID, LEVOTHROID) 75 MCG tablet Take 1 tablet (75 mcg total) by mouth daily. active melatonin 10 mg Tab Take 10 mg by mouth daily. active Allergies Allergen Reaction Severity Comment Documented Date Source Statu s ATORVASTATIN HIVES 11/04/2015 [facility] active Problems Problem Status Onset Date Problem Type Date of Resolution Source Flank pain, acute active EncounterDiagnosisAct [facility] Class 2 severe obesity due to excess calories with serious comorbidity and body mass index (BMI) of 36.0 to 36.9 in adult active 2024-08-06 ProblemAct [facility] Minor head injury, initial encounter active EncounterDiagnosisAct [facility] Hypothyroidism active 2015-11-06 ProblemAct [facility] Current use of pipe bowl paint trimmer anticoagulation active 2024-08-06 ProblemAct [facility] Obstructive sleep apnea hypopnea, severe active 2015-11-06 ProblemAct [facility] Anxiety and depression active 2024-08-06 ProblemAct [facility] Other chest pain active 2015-11-04 ProblemAct [facility] Type 2 diabetes mellitus with hyperglycemia, without long-term current use of insulin (HC Code) active EncounterDiagnosisAct [facility] Schizophrenia active 2024-08-06 [facility] Right bundle branch block active 2015-11-04 ProblemAct [facility] Type 2 diabetes mellitus active 2015-11-06 ProblemAct [facility] 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 active 2015-11-06 ProblemAct [facility] Tetralogy of Fallot s/p repair active 2015-11-06 ProblemAct [facility] Atrial fibrillation active 2024-08-06 ProblemAct [facility] Seizure disorder active 2015-11-06 ProblemAct [facility] Recurrent syncope active 2024-08-02 ProblemAct [facility] Encounters Encounter Type Encounter Reason Primary Diagnosis Location Date Emergency Syncope and collapse Syncope and collapse [facility] 08/08/2024 Inpatient Syncope and collapse Syncope and collapse [facility] 08/02/2024 Ambulatory [facility] 04/12/2024 Emergency Chest pain, unspecified Chest pain, unspecified [facility] 02/24/2023 Observation Other chest pain Other chest pain [facility] 01/21/2023 Emergency Chest pain, unspecified [facility] 03/13/2021 Care Team Organization Name Specialty Phone Email Start Date End Da te [facility] 08/08/2024 [facility] 08/08/2024 [facility] 08/02/2024 0 08/31/2024 [facility] 08/02/2024 [facility] 04/23/2023 [facility] 02/25/2023 10/15/2024 [facility] 02/24/2023 02/24/2023 [facility] Primary Care 01/21/20232022 [facility],Provider Primary Care 03/14/20212024 [employer] [facility]ER SYSTEM Primary Care 03/13/20212020 [facility] 03/14/201903/14 [facility] 08/05/2018 08/05/2018
--- OUTSIDE RECORDS SUMMARY | 2024-10-21 12:54 | XMS_ITS | Encounter Summary ---
Author Organization [facility] Address [address] [place] [address] Care Team Providers Care County Attorney Name Role Phone Patient, Has No Pcp Or Ref Primary Care Provider Unavailable Encounter Details Date Type Department Care Team (Late st Contact Info) Description 10/05/2022 Telephone [facility] Nuclear Medicine [address] [place] [address] Pool Rodriguez, RN Social History Tobacco Use [...] documented as of this encounter Care Teams County Attorney Relationship Specialty Start Date End Date Patient, Has No Pcp Or Ref DO NOT EDIT THIS RECORD VIA PROVIDER ON THE FLY PCP - General Logistical Engineer 07/11/24 documented as of this encounter
--- OUTSIDE RECORDS SUMMARY | 2024-10-21 12:54 | XMS_ITS | Clinical Summary ---
Author Organization [facility] Address [address] [place] [address] Care Team Providers Care Protozoology Teacher Name Role Phone Lilliam Amaridavin ROSS Primary Care Provider [phone] Allergies Active Allergy Reactions Criticality Noted Date [...] 73 01/23/2023 11:45 AM EDT Temperature 35.9 C (96.6 F) 01/23/2023 11:45 AM EDT Respiratory Rate 18 01/23/2023 11:45 AM EDT [...] Zoster (Shingles) Vaccine (1 of 2) 01/26/2012 COVID-19 Vaccine ( season) 2023 06/03/2020, 05/06/2020 Influenza Vaccine 11/01/2024 02/17/2022, , 04/17/2018, Additional history exists RSV Vaccine 60 years and older and Patients (1 - 1-dose 75+ series) 2037 Hemoglobin A1C Discontinued 01/22/2023, 12/03, 12/06/2020, Additional history exists Hepatitis B Vaccines Aged Out No long er eligible based on patient's age to complete this topic Medical Devices Implanted Type Area Hand Booked Folder And Stitcher Device Identifier Shelf Expiration Date Model / Serial / Lot Icd ICD [employer] [facility] 2411-36c Vinicio Nelson [id number] Implanted:05/04 (Quantity not on file) ICD [employer] 2411-36C VINICIO NELSON / [id number] / Pacemaker Pacemaker Procedures Procedure Name Priority Date/Time Associated Diagnosis Comments HEMOGLOBIN A1C WITH ESTIMATED AVERAGE GLUCOSE STAT 01/22/2023 7:00 AM EDT from Last 3 Months or Most Recently Relevant to Health Maintenance Results * (ABNORMAL) Hemoglobin A1c with Estimated Average Glucose (01/22/2023 7:00 AM EDT) Hemoglobin A1C 7.1(H) <5.7 % 01/22/2023 8:43 AM EDT [facility] Comment: A1c% Interpretation 5.7 - 6.0 Increase risk of diabetes 6.1 - 6.4 Higher risk of diabetes > or = 6.5 Consistent with diabetes Diabetes Care, 33(Supp 1):S1-S61, 2010 Estimated Average Glucose 157 mg/dL 01/22/2023 8:43 AM EDT [facility] Blood specimen (specimen) Blood specimen / Unknown 01/22/2023 7:00 AM EDT 01/22/2023 7:33 AM EDT Christophe Bullard MD LAB BLOOD ORDERABLES Fi nal Result HOSPITAL LAB See Below [address] [id number] from Last 3 Months or Most Recently Relevant to Health Maintenance Insurance [facility] MEDICARE OUT OF NETWORK [facility] [place] MEDICARE OUT OF NETWORK Advance Directives * [...] 2:18 PM 06/06/2018 4:09 PM Care Teams Protozoology Teacher Relationship Specialty Start Date End Date Amari Vyas DO [address] [place] [id number] PCP - General Internal Medicine 01/21/23
--- OUTSIDE RECORDS SUMMARY | 2024-10-21 12:54 | XMS_ITS | Encounter Summary ---
Author Organization [employer] Address [address] [place] [address] [place] [address] Care Team Providers Care Weather Teacher Name Role Phone Lauren Whittaker MD Primary Care Pro vider Encounter Details Date Type Department Care Team ([facility] st Contact Info) Description 01/30/2024 Telephone [facility] [address] [place], [place] [phone] Ioana Antonio, PharmD [address] [place] [address] Social History Tobacco Use Types Packs/Day Years [...] 12:56 PM EST Tc from Pat with [facility] cardiology . States is returning a missed call. Best contact # [phone]. * Telephone Encounter - Ioana Antonio PharmD - 01/30/2024 3:10 PM EDT Please assist in obtaining discharge paperwork from [facility] Patient was discharged on 01/27/2024, and [facility] recent discharge (exact date unknown). Thank you documented in this encounter Plan of Treatment Upcoming Encounters Date Type Department Care Team (Late st Contact Info) Description 10/24/2024 11:30 AM EDT Office Visit [facility] [address] [place] [phone] Lauren Whittaker MD [address] [place] [address] documented as of this encounter Visit Diagnoses Not on filedocumented in this encounter Additional Health Concerns Assessment Noted Time PHQ-9 Depression Total Score: 0 11/15/19 9:31 AM EDT documented as of this encounter Care Teams Weather Teacher Relationship Specialty Start Date End Date Lauren Whittaker MD [address] [place] [id number] PCP - General Internal Medicine 11/15/23 [facility] 03/08/24 documented as of this encounter
--- OUTSIDE RECORDS SUMMARY | 2024-10-21 12:54 | XMS_ITS | Encounter Summary ---
Author Organization [facility] Address [address] [place] [address] Care Team Providers Care Ornithology Teacher Name Role Phone Lauren Hdez MD Primary Care Provide r Encounter Details Date Type Department Care Team (Late st Contact Info) Description 02/27/2024 Lab Requisition [facility] - Main Lab [address] [facility] [place] [phone] Erasto Henry MD [address] [place] [address] [address] [place], [phone] Essential (primary) hypertension Social History Tobacco [...] hypertension documented in this encounter Care Teams Ornithology Teacher Relationship Specialty Start Date End Date Lauren Hdez MD [address] [facility] [place] [address] PCP - General Internal Medicine 10/09/24 documented as of this encounter
--- OUTSIDE RECORDS SUMMARY | 2024-10-21 12:54 | XMS_ITS | Data Portability ---
Author Organization [facility], Main Office Address [address] [facility] [address] [place] [address] Care Team Providers Care Clinical Research Monitor Name Role Phone JIM VILLANUEVA - 2ND [...] inophen 5 mg-325 mg tablet 024 02/16/20 24 [facility] , [address] [place] [address], [address], 21:36:06 Patient TargetsNo targets recorded. Patient InstructionsNo instructions recorded. Reason for Referral None Reported. Problems Name Problem SNOMED Code Status Onset Date Resolution Date Notes Provider Name and Address Organization Details Recorded Time Mental retardation Active 2017 Razia diggs [employer] 8 16:10:41 Atrial fibrillatio n 60222368 Active 2017 Razia diggs [employer] 8 16:10:46 Tetralogy of Fallot 64332712 Active 2017 Razia diggs [employer] 8 16:10:59 Essential hypertensio n 03840477 Active 2017 Razia diggs [facility] 8 16:11:14 Mixed hyperlipide crescencio 453352443 Active 2017 Razia Tang null, [facility] 8 16:11:21 Benign prostatic hyperplasia 539784216 Active 2017 Razia Tang null, [facility] 8 16:11:26 Chronic obstructive pulmonary disease 93515686 Active 2017 Razia Tang null, [facility] 8 16:11:31 Diabetes mellitus 85337841 Active 2017 Razia Tang null, [facility] 8 16:17:50 Hypothyroid ism 82229949 Active 2017 Razia Tang null, [facility] 8 16:19:53 Ankle pain 444355166 Active 2017 SHANNON LORD [address] [facility], [address], [place], [address], [facility] 8 15:59:07 Orthostatic hypotension 40147953 Active 2023 Ivelisse Hart MD [address] [facility], [address], [place], [address], [facility] 4 18:24:49 Chest pain 92352274 Active 2023 Ivelisse Hart MD [address] [facility], [address], [place], [address], [facility] 4 18:27:24 Bifascicula r block 73014311 Active 2023 Ivelisse Hart MD [address] [facility], [address], [place], [address], [facility] [employer] [facility] 4 18:31:47 Thrombocyto penic disorder 346105513 Active 2023 Ivelisse Hart MD [address], [address], [place], [address], [facility] [employer] [facility] 4 18:43:24 Intellectua l disability 153004979 Active 2023 Ivelisse Hart MD [address] [facility], [address], [place], [address], [facility] [employer] [facility] 4 18:44:22 Gastroesoph ageal reflux disease without esophagitis 996906959 Active 2023 Ivelisse Hart MD [address], [address], [place], [address], [facility] [employer] [facility] 4 18:54:10 Obesity 267298988 Active 2023 Ivelisse Hart MD [address], [address], [place], [address], [facility] 4 18:54:57 Mixed anxiety and depressive disorder 012235521 Active 2023 Ivelisse Hart MD [address], [address], [place], [address], [facility] [employer] [facility] 4 18:57:08 Pain of knee region 6113203243 Active 2023 Ivelisse Hart MD [address], [address], [place], [address], [facility] [employer] 4 18:58:16 Obstructive sleep apnea syndrome 61061525 Active 2023 Ivelisse Hart MD [address], [address], [place], [address], [facility] [employer] [facility] 4 19:03:46 Harmful pattern of use of alcohol 46185651 Active 2023 Ivelisse Hart MD [address], [address], [place], [address], [facility] [employer] [facility] 4 19:06:12 Migraine 18868216 Active 2023 Ivelisse Hart MD [address], [address], [place], [address], [facility] [employer] 4 19:10:43 Frequent attender of emergency room 8853539425546 04 Active 2023 Ivelisse Hart MD [address], [address], [place], [address], [employer] 4 19:12:29 Problem Notes None recorded. Medical Equipment None Reported. Allergies Allergen ID Allergen Name Allergen Category Reaction Reaction Severity Criticality Documentation Date Start Date Code Code System Note Provider Name and Address Organization Details Recorded Time 26862 Pisum sativum (pea) extract food other Not available high 02/12/2024 18637 12 RxNorm green peas Ashley Irwin, BANDAR [address] [facility], [address], [place], [address], [facility] 4 13:11:02 19145 honey bee venom medicatio n other Not available high 02/12/2024 71904 7 RxNorm unkno wn Ashley Irwin, BANDAR [address] [facility], [address], [place], [address], [employer] 4 13:11:27 9916 Lipitor medicatio n Not available Not available Not available 06/22/2017 60679 5 RxNorm Razia Tang [facility], [employer] 8 16:05:13 Medications Name Sig Start Date Stop Date Status Note LastModified by Organization Details LastModified Time oxycodone -acetamin ophen 5 mg-325 mg tablet Take 1 tablet every day by oral route at bedtime. 024 active Not Available Not Available Not Avai lable Vitals Date Recorded Heart rate Respiratory rate Body temperature Oxygen saturation Oxygen saturation in Arterial blood by Pulse oximetry Systolic And Diastolic Provider Name and Address Organization Details Last Updated DateTime 8 83 /min 23 /min 98.3 [degF] 97 % 97 % 130/71 mm[Hg] SHANNON CALIXTO [address] [facility], [facility] [address], [place], [address], [facility] 8 15:45:03 Date Recorded Heart rate Oxygen saturation Oxygen saturation in Arterial blood by Pulse oximetry Systolic And Diastolic Provider Name and Address Organization Details Last Updated DateTime 08/10/2017 74 /min 96 % 96 % 128/76 mm[Hg] Razia Tang [facility] 8 15:09:30 Date Recorded Body weight Heart rate Respiratory rate Body temperature Oxygen saturation Oxygen saturation in Arterial blood by Pulse oximetry Systolic And Diastolic Provider Name and Address Organization Details Last Updated DateTime 4 199350. 58 g 81 /min 18 /min 97.6 [degF] 94 % 94 % 143/83 mm[Hg] Ashley Irwin NP [address] [facility], [facility] [address], [place], [address], [employer] 4 13:22:45 Date Recorded Body height Body mass index (BMI) Body weight Heart rate Respiratory rate Body temperature Oxygen saturation Oxygen saturation in Arterial blood by Pulse oximetry Systolic And Diastolic Provider Name and Address Organization Details Last Updated DateTime 4 175.26 cm 36.5 kg/m2 776517. 11 g 8 /min 18 /min 98 [degF] 98 % 98 % 146/76 mm[Hg] Ivelisse Hart MD [address] [facility], [facility] [address], [place], [address], [employer] 4 18:18:26 Date Recorded Body height Body mass index (BMI) Body weight Heart rate Respiratory rate Body temperature Oxygen saturation Oxygen saturation in Arterial blood by Pulse oximetry Systolic And Diastolic Provider Name and Address Organization Details Last Updated DateTime 4 175.26 cm 37.1 kg/m2 084355. 68 g 79 /min 16 /min 97.7 [degF] 97 % 97 % 148/82 mm[Hg] Ashley Irwin NP [address] [facility], [facility] [address], [place], [address], [employer] 4 10:54:45 Social History Question Answer Notes LastModified by Organizat ion Details LastModified Time Tobacco Smoking Status Never Smoker Ivelisse Hart MD [address] [facility], [facility] [address], [place], [address], [employer] 02/16/2024 17:40:34 Do You Have An Advance Directive? Yes Full Code Information not available 06/22/2017 How Much Tobacco Do You Chew? None Information not available 06/22/2017 What Is Your Code Status? Full Code Information not available 02/12/2024 Where Do You Live? Apartment Recently Moved In With Cousin, Had Been At A Sober House, But Recently graduated [email or web address] Information not available 02/16/2024 Legal Guardian? No [employer] on not available 02/16/2024 Do You Have A Medical Power Of Desk Officer? Yes Information not available 02/16/2024 What Was [...] conjugate PCV [address] [facility] 02/12/2024 13:04:57 pneumococcal polysaccharide PPV23 2 completed Dary [facility] 02/12/2024 13:05:19 pneumococcal polysaccharide PPV23 [address] [facility] 02/12/2024 13:05:29 influenza, unspecified formulation [address] [facility] 02/12/2024 13:05:46 influenza, unspecified formulation [address] [facility] 02/12/2024 13:05:53 SARS-COV-2 (COVID-19) vaccine, UNSPECIFIED [address] [facility] 02/12/2024 13:06:09 SARS-COV-2 (COVID-19) vaccine, UNSPECIFIED [address] [facility] 02/12/2024 13:06:18 SARS-COV-2 (COVID-19) vaccine, UNSPECIFIED [address] [facility] 02/12/2024 13:06:26 influenza, unspecified formulation [address] [facility] 02/12/2024 13:06:49 Tdap [address] [facility] 02/12/2024 13:07:12 Past Encounters Encounter ID Performer Location Encounter Start Date Encounter Closed Date Diagnosis/Indication Diagnosis SNOMED-CT Code Diagnosis ICD10 Code Diagnosis Note [id number] JEN Rendon [employer] on [address] [place] [address] 06/22/2017 16:05:35 06/27/2017 08:58:26 Mental retardation 85824434 F78 Supportive careHCP not invoked-ap pears capable of making own medical decisions presently Atrial fibrillation 4943 6004 I48.0 Not on anticoagul ationASA 81 mg dailySotal ol 160 mg BIDMonitor HR Tetralogy of Fallot 8629 9006 Q21.3 Hx ofs/p repair and shunt Essential hypertension 34385849 I10 Norvasc 2.5 mg dailySotal ol 160 mg BIDMonitor bp and labs Mixed hyperlipidemia 267 573346 E78.2 Diet controlled Will check lipid panel Benign pro static hyperplasia 178792830 N40.0 s/p TURP in Mar.Report ing dysuria-wi ll obtain urine for UA, C&SMonitor Chronic ob structive pulmonary disease 24009819 J43.8 Duonebs prnMonitor respirator y status Diabetes mellitus 118789 09 E11.9 Glipizide 5 mg dailyMetfo rmin 1000 BID Monitor accuchecks HbA1c excellent 06/20-follo w Hypothyroidism 55438973 E03.8 Levothyrox ine 75 mcg dailyTSH wnl 03/28/17Re peat annually Gastroesop hageal reflux disease without esophagitis 022183042 K21.9 Omeprazole 20 mg dailyMonit or sxs Loose stool 989700669 R1 9.5 Monitor loose stools-if continuing will obtain [place]. diff [id number] JEN Rendon [employer] on [address] [place] [address] 07/14/2017 12:51:22 07/19/2017 09:56:01 Tetralogy of Fallot 98066063 Q21.3 Hx ofs/p repair and shuntCardi ology eval prn Atrial fibrillation 4943 6004 I48.0 Not on anticoagul ationASA 81 mg dailySotal ol 160 mg BID-add parameters to hold for HR <55Obtain EKG due to c/o chest painMonito r and if chest pain worsening or associated with SOB send to ED for eval [id number] SHANNON CALIXTO [employer] on [address] [place] [address] 07/25/2017 15:44:04 07/27/2017 10:54:49 Atrial fibrillation 95707967 I48.0 Not on anticoagul ationASA 81 mg dailySotal ol 160 mg BID-add parameters to hold for HR <55sent back from ED with no changes, chest pain resolved with tramadol 50 mg Tetralogy of Fallot 8629 9006 Q21.3 Hx ofs/p repair and shuntCardi ology eval prn Ankle pain 499662648 M25 .572 Pain in left ankle, achillesPT to eval and treat [id number] JEN Rendon [employer] on [address] [place] [address] 08/10/2017 14:47:44 08/17/2017 14:44:41 Atrial fibrillation 79768336 I48.0 Not on anticoagul ationASA 81 mg dailySotal ol 160 mg BIDHR stableF/u with cardiology , PCP Tetralogy of Fallot 8629 9006 Q21.3 Hx ofs/p repair and shuntCardi ology eval prn Ankle pain 689246122 M25 .572 Pain in left ankle, achilles-p atient reports hx of torn achillesPa in control with tramadolOu tpatient f/u with PCP to consider surgical repair Mental retardation 85100 005 F78 Supportive careServic es in place for discharge home Essential hypertension 55990618 I10 Norvasc 2.5 mg dailySotal ol 160 mg BIDBP with good control Mixed hyperlipidemia 267 540740 E78.2 Diet controlled Will check lipid panel Benign pro static hyperplasia 154440159 N40.0 s/p TURP in Mar.F/u with urology prn Chronic ob structive pulmonary disease 22718733 J43.8 Duonebs prnMonitor respirator y status Diabetes mellitus 067684 09 E11.9 Glipizide 5 mg dailyMetfo rmin 1000 BID Monitor accuchecks F/u with PCP Hypothyroidism 77764366 E03.8 Levothyrox ine 75 mcg dailyTSH wnl 03/28/17Re peat annually Gastroesop hageal reflux disease without esophagitis 859489780 K21.9 Omeprazole 20 mg dailyMonit or sxs [id number] Ashley [facility] NP [facility] [address] [address] 02/12/2024 12:59:52 02/13/2024 09:38:01 Atrial fibrillation 62999588 I48.0 has AICD with hx of teralogy of fallotriva roxaban 20 mg po dailySotal ol 80 mg BIDHR stableF/u with cardiology on 02/25 and 02/26? Tetralogy of Fallot 8629 9006 Q21.3 Hx ofs/p repair and shunt with AICD in placeCardi ology eval prn Mental retardation 11795 005 F79 Supportive careServic es in place for discharge home Essential hypertension 18401069 I10 contSotalo l 80mg BIDbp stablecons ider restarting lisinopril and isosorbide Mixed hyperlipidemia 267 166224 E78.2 Diet controlled monitor Benign pro static hyperplasia 705851377 N40.0 s/p TURP in Mar.tamulo sin on hold due to ortho bp, consider restarting F/u with urology prn Chronic ob structive pulmonary disease 03375125 J43.8 breo ellipta 100 mcg/25 mcg 1 puff dailyDuone bs prnalb prnMonitor respirator y status Diabetes mellitus 670941 09 E11.9 Metformin 500 mg BIDMonitor accuchecks monitor Hypothyroidism 87142418 E03.8 Levothyrox ine 75 mcg dailytsh aboveRepea t prn Gastroesop hageal reflux disease without esophagitis 473487430 K21.9 esomeprazo le 20 mg dailyMonit or sxs Obesity 013986489 E66.9 pt with obesitydie tician consult for good nutritiona l choicescar diac dietmonito r Peripheral neuropathy due to type 2 diabetes mellitus 6858260560 107 E11.42 gabapentin 300 mg po bidGlipizi de 5 mg dailyMetfo rmin 1000 BIDMonitor accuchecks Mixed anxi ety and depressive disorder 539943292 F41.8 risperidon e 1.5 mg po qhsquetiap ine 100 mg po qhaescital opram 20 mg po dailyhydro xyzine 25 mg po bidlorazep am 0.5 mg po daily prn anxietytra zodone 50 mg po qhsmonitor Pain of knee region 1003 614345 M25.569 xray at [facility] neg for acute concernsno ibuprophen due to xarelto per ptlidocain e patch to right knee on in amtyl 650 mg po tid and prn nte 3 gram/24 hrsmonitor Obstructiv e sleep apnea syndrome 43982843 G47.33 has osapt reports his cpap broke and was supposed to get one today but missed his apptresche d apptmonito r Chest pain 08905638 R07. 9 resolvedpt had chest pain on admission to [facility] at [facility] and ruled out acute cardiac disease and returned to rehabmonit or Orthostati c hypotension 82547201 I95.1 pt with orthostati c hypotensio n upon standing, resolved with 1 liter of fluid and decreased bp medsencour age po fluidspt educated and aware to get up slowlypt had lisinopril , isosorbide , and tamsulosin heldplan to restart one by one as ableorthos tatic bp daily x 2 weeks, doc in pcc Adult fail ure to thrive syndrome 500442199 R62.7 pt reports 11 hospitaliz ations for falls since 04/2022 and feels if he needs to go back to longterm he is open to it.monitor Recurrent falls 19974193 2 R29.6 pt with recurrent fallssuppo rtive caretherap y eval and treatortho static bp, get up slowly with walkermoni tor Asthenia 43258028 R53.1 pt with weaknessPT /OT eval and treatmonit or [id number] Ivelisse Hart MD [address] [address] 02/16/2024 16:01:25 02/19/2024 11:53:18 Chest pain 57511988 R07.89 Chronic and recurrent ACS ruled out numerous times.Cont inue tx with gabapentin 300 mg TID, APAP 650 mg TID and 650 mg q 4 hrs prn (NTE TD of 3000 mg/d).Does have NTG SL ordered, but unclear if he needs this.Monit or sxs.Do not send to ED for CP unless changes in VS. Orthostati c hypotension 80651603 I95.1 BP has not been orthostati c [...] F/U with cardio as planned. Essential hypertension 40191769 I10 With some borderline SBPs since here, but mostly in good control off lisinopril , isosorbide and tamsulosin .Would hesitate to restart any anti-hyper tensives unless SBP consistent ly >150, due to hx of orthostasi s.Monitor BP, pulse and labs. Mixed hyperlipidemia 267 902561 E78.2 Continue ezetimibe 10 mg qd.F/U as outpt. Benign pro static hyperplasia 414575951 N40.0 No current sxs.Tamsul osin on hold due to orthostati c hypotensio n, consider restarting .F/u with uro as planned Diabetes mellitus 784783 09 E11.9 Fingerstic ks checked twice fasting since here, both low.Hga1C was borderline at 6.9Continu e metformin 500 mg BIDMonitor fingerstic ks prn and adjust meds as outpt. Hypothyroidism 60371131 E03.8 TSH WNL.Contin ue levothyrox ine 75 mcg qdMonitor TSH yearly. Gastroesop hageal reflux disease without esophagitis 325077502 K21.9 No current sxs.Contin ue esomeprazo le 20 mg qdMonitor GI sxs Obesity 030083901 E66.09 Continue to encourage healthy eating and physical activity.D ietician consult.Chris gonsales wts. Mixed anxi ety and depressive disorder 541840759 F41.8 With hx of behaviors, but good since here.Quentin nue risperidon e 1.5 mg qhs, quetiapine 100 mg qhs, escitalopr am 20 mg qd, hydroxyzin e 25 mg BID, trazadone 50 mg qhs, melatonin 10 mg qhs, and lorazepam 0.5 mg po qd prn.Mood good today.Neelima tor mood.Consu lt psych prn Pain of knee region 1003 603572 M25.561 Not discussed today.Cont inue meds as above and lidocaine patch qd.PT/OT as above.Neelima tor Obstructiv e sleep apnea syndrome 46010813 G47.33 Currently without CPAP, needs f/u appt to get new one.Nursin g to reschedule . Recurrent falls 32293534 2 R29.6 As above. Bifascicular block 78249 003 I45.[address]Work ing well per last hosp check.F/U with cardio as planned, on 02/26 at 1:30 for office visit and 2:20 for device check at [address] [facility]. Thrombocyt openic disorder 190563374 D69.59 Have been running low for many years. I suspect due to EtOH, but much consider rivaroxaba n effect also.No change in tx unless plts drop to <50,000 or signs of bleeding. Intellectu al disability 294735753 F70 Able to make his own decisions. Provide supportive care.Monit or function. Asthma 740944764 J45.30 No current sxs.Contin ue Breo ellipta 100/25 mcg 1 puff qd and albuterol MDI 2 puffs q 4 hrs prn.Monito r resp status Chronic neck pain 054012 1595 107 M54.2 It seems he has different c/o on different days, but today he says he's had neck pain for awhile.Gomez l add Percocet 5/325 mg qhs at pt's request.OK as long as only one tab/day.Co ntinue other meds as above.Cons ider increasing gabapentin . Harmful pa ttern of use of alcohol 22740579 F10.11 Sober for almost 11 months, very proud of himself.qu it after almost dying after drinking a whole bottle of peppermint schnapps last march.W as in sober house until recently.N ow following up with AA and sponsor.En courage continued sobriety. Migraine 25912324 G43.90 9 Sees neuro.No sxs since here.Quentin nue sumatripta n 50 mg BID prn.Monito r sxs. Frequent a ttender of emergency room 8837415719 08387 Z76.89 With multiple ED visits at various facilities .Only rarely with documentab le problem.Ne eds to make care plan with PCP and home health as outpt.Avoi d transfer to ED while here unless clearly acute problem. [id number] Ashley Irwin, BANDAR [facility] [address] [address] 02/22/2024 10:53:07 02/23/2024 10:15:01 Orthostatic hypotension 19299925 I95.1 BP has not been orthostati c since here.bp 148/82 todayDoing well with rehab.Cont inue PT/OT for strengthen ing, balance, gait training, safety and function.C ontinue fall precaution s.Monitor for safety.Mon itor orthostati c vitals daily doc in pcc and monitor sxs. Chest pain 53156936 R07. 89 Chronic and recurrent ACS ruled out numerous times.with notable history of tetrology of fallotwork ed up for chest pain in ED 02/20Conti nuegabapen tin 300 mg TID, APAP 650 mg TID and 650 mg q 4 hrs prn (NTE TD of 3000 mg/d).NTG SL prn chest pain, call 911 if he uses thisMonito r sxs. Bifascicular block 98154 003 I45.[address].Work ing well per last hosp check.F/U with cardio as planned, on 02/26 at 1:30 for office visit and 2:20 for device check at [address] Recurrent falls 79376222 2 R29.6 As above. Atrial fibrillation 4943 6004 I48.0 Rate in good control on sotalol 80 mg BID.Contin ueXarelto 20 mg qd for AC.Monitor HR and bleeding risk.F/U with cardio. Tetralogy of Fallot 8629 9006 Q21.3 Hx ofs/p repair and shunt placement. F/U with cardio as planned. Essential hypertension 31102929 I10 overall bp stable with some 140sdecent control off lisinopril , isosorbide and tamsulosin .Would hesitate to restart any anti-hyper tensives unless SBP consistent ly >150, due to hx of orthostasi s.Monitor BP, pulse and labs. Thrombocyt openic disorder 707447890 D69.59 Have been running low for many years. I suspect due to EtOH, but much consider rivaroxaba n effect also.No change in tx unless plts drop to <50,000 or signs of bleeding. Intellectu al disability 357737772 F70 Able to make his own decisions. Provide supportive care.Monit or function. Chronic neck pain 459954 0383 107 M54.2 It seems he has different c/o on different days, but today he says he's had neck pain for awhile.con tPercocet 5/325 mg qhs (added per md at pt's request.)C ontinue other meds as above.Cons ider increasing gabapentin if persists Mixed hyperlipidemia 267 748626 E78.2 Continue ezetimibe 10 mg qd.F/U as outpt. Benign pro static hyperplasia 731465466 N40.0 No current sxs.Tamsul osin on hold due to orthostati c hypotensio n, consider restarting .F/u with uro as planned Asthma 666600761 J45.30 No current sxs.Contin ue Breo ellipta 100/25 mcg 1 puff qd and albuterol MDI 2 puffs q 4 hrs prn.Monito r resp status Diabetes mellitus 088976 09 E11.9 Fingerstic ks checked twice fasting since here, both low.Hga1C was borderline at 6.9Continu emetformin 500 mg BIDMonitor fingerstic ks prn and adjust meds as outpt. Hypothyroidism 47118116 E03.8 TSH WNL.Contin uelevothyr oxine 75 mcg qdMonitor TSH yearly. Gastroesop hageal reflux disease without esophagitis 381957236 K21.9 No current sxs.Contin ueesomepra zole 20 mg qdMonitor GI sxs Obesity 782336795 E66.09 Continue to encourage healthy eating and physical activity.D ietician consult.Chris gonsales wts. Mixed anxi ety and depressive disorder 554834064 F41.8 With hx of behaviors, but good since here.Quentin nuerisperi done 1.5 mg qhs, quetiapine 100 mg qhs, escitalopr am 20 mg qd, hydroxyzin e 25 mg BID, trazadone 50 mg qhs, melatonin 10 mg qhs, and lorazepam 0.5 mg po qd prn.Monito r mood.Consu lt psych prn Pain of knee region 1003 306761 M25.561 Continue meds as above and lidocaine patch qd.PT/OT as above.Neelima tor Obstructiv e sleep apnea syndrome 82393758 G47.33 Currently without CPAP, needs f/u appt to get new one.Nursin g to reschedule . Harmful pa ttern of use of alcohol 53175727 F10.11 Sober for almost 11 monthsquit after almost dying after drinking a whole bottle of peppermint schnapps last march.W as in sober house until recently.N ow following up with AA and sponsor.En courage continued sobriety. Migraine 94478859 G43.90 9 Sees neuro.No sxs since here.Quentin nuesumatri ptan 50 mg BID prn.Monito r sxs. Frequent a ttender of emergency room 3598866978 40479 Z76.89 With multiple ED visits at various [...] Advance Directives Directive Y: Full code Payers Insurance Date Sequence Insurance Name Policy Number Policy Tapia Covered Member ID Tapia Member ID Guarantor Name 02/27/2024 1 [place]: [employer] Joaquín Barrientos [id number] [facility] 02/27/2024 2 [place] [facility] Joaqu[facility] Barrientos [id number] [facility] 02/27/2024 1 [facility]IG[facility] (MEDICARE REPLACEMENT/AD VANTAGE - HMO) Joaquín Barrientos [id number] [facility] 02/27/2024 1 [facility] - DOS ON OR AFTER 2022 - MEDICARE ADVANTAGE [place] (MEDICARE REPLACEMENT/AD VANTAGE - PPO) Joaquín Barrientos [id number] [facility] Notes Date Note Type Note Provider Name [...] can help with the discomfort. SHANNON CALIXTO [address] [place] [address], [address], [place], [address], [employer] 07/25/2017 16:00:05 08/10/2017 text/html 57 yo male [...] pursuing surgical repair following discharge. Razia diggs, [employer] 08/10/2017 15:11:11 02/12/2024 text/html Pt seen for an initial intake summary. Joaquín is a 64 yo male LTC [place] [facility] [place] PMH:mental retardation, a. fib, AICD, tetralogy of fallot s/p repair/shunt, htn, hld, bph, ponce, COPD, TURP. Pt is a 64 yr old man who presented to [facility] with weakness and dizziness and right knee [...] to rehab he was later sent to [facility] for chest pain on 02/10 and discharged [...] MOLST: full code Ashley Irwin, BANDAR [address] [facility], [address], [place], [address], [employer] 02/12/2024 14:58:46 02/16/2024 text/html This is a 64 yo man who is here for rehab after an acute hospitalization for a syncopal episode.[facility] fter an episode which he [...] non-acute.Of note, he had been in the [facility] ED or admitted 14 times over the past 6 months, also some visits at [facility] and [facility]. With c/o of falls, syncope and CP. [...] 02/10 and was transferred back to the [facility] ED.W/U was essentially neg, except for sl [...] since 03/2023, and obesity. 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 Due to dizziness and syncopal [...] Of note, he had been in the [facility] ED or other ED s admitted and for CP 16 times over the past 6 months, also some visits at [facility] and [facility] With c/o of falls, syncope and CP. Per last admission:Lisinopril, isosorbide as well as tamsulosin have been held in the hospital, he will be discharged without these, to a rehab. [facility] discharge, these could be reintroduced 1 after the other based on his symptoms/blood pressure. Ashley Irwin NP [address] [facility], [address], [place], [address], [facility] [employer] 02/22/2024 11:20:05
--- OUTSIDE RECORDS SUMMARY | 2024-10-21 12:54 | XMS_ITS | Clinical Summary ---
Author Organization [address] Address [address] [place] [phone] Phone Care Team Providers Care Application Performance Engineer Name Role Phone Obtain, Unable To Primary [...] total) by mouth daily. 4 Active lisinopriL (PRINIVIL,ZESTRI L) 2.5 mg tablet Take 1 tablet (2.5 [...] Take 10 mg by mouth daily. Active oxyCODONE-acetam inophen (PERCOCET) 5-325 mg per tablet Take 1 tablet by mouth every 4 (four) hours as needed for pain. 8 tablet 5 Active Active Problems Problem Noted Date Diagnosed Date Class 2 severe obesity due t o excess calories with serious comorbidity and body mass index (BMI) of 36.0 to 36.9 in adult (HC Code) 08/06/2024 Current use of termite helper anticoagulation 025 Atrial fibrillation (HC Code) 08/06/2024 [...] 11/06/2015 Overview (11/06/2015): [facility] serial #[id number] Dual Chamber ICD implanted 06/12/08 Type 2 diabetes mellitus 11/06/2015 Syncope and collapse 11/04/2015 Other chest pain 11/04/2015 Right bundle branch block 11/04/2015 Resolved Problems Problem Noted Date Diagnosed Date Resolved Date Flank pain, acute 08/06/2024 08/08/2024 Encounters Date Type Department Care Team Description 08/11/2024 Patient Outreach [facility] Call Center [address] [place] [id number] Donna Linder RN Hospital Discharge Follow Up 08/08/2024 3:02 PM EDT - 08/08/2024 9:28 PM EDT Emergency [facility] Emergency Department [address] [place] [address] Coral Fofana MD Mansour, Amir J, MD Syncope, unspecified syncope type (Primary Dx) Discharge Disposition: Another Health Care Institution Not Defined Elsewhere in List 08/08/2024 Travel 08/02/2024 9:55 AM EDT - 08/08/2024 10:42 AM EDT Hospital Encounter [facility][1] [address] [place] [id number] Octavio Boyd MD Haider, Salman, MD Victor, Wasnard, MD Iyengar, Steve Evans MD Recurrent syncope (Primary Dx); Minor head injury, initial encounter; Dual ICD (implantable cardioverter-defibr illator) in place; Hypothyroidism, unspecified type; Tetralogy of Fallot s/p repair; Syncope and collapse; Current use of termite helper anticoagulation; Schizophrenia, unspecified type (HC Code) ; [...] 0.6 oz pur e alcohol) 5yrs sober [facility] Utilities Answer Date Recorded In the past 12 months has [employer], gas, oil, or water [employer] threatened to shut off services in your [...] your living situation today? I have a [facility] [place] place to live 08/04/2024 Housing Stability Not [...] 80 08/08/2024 8:57 PM EDT Temperature 36.5 C (97.7 F) 08/08/2024 8:57 PM EDT Respiratory Rate 20 08/08/2024 8:57 PM EDT [...] Standard Series) 01/26/2012 Urine Microalbumin 11/04/2016 11/05/2015 Covid-19 vaccine series ( season) 2023 03/08/2022, 06/03/2020, 05/06/2020 Influenza vaccine 12/02/2024 02/08/2024, , 03/17/2023, Additional history exists Hemoglobin A1C 02/04/2025 08/04/2024, 01/02, 10/03/2022, Additional history exists Tetanus adult (Td q 10,TDAP once) 12/13/2033 12/14/2023, 01/05/2015, 10/05/2012, Additional history exists RSV Immunization (1 - 1-dose 75+ series) 2037 Pneumococcal Vaccine (2 - 49 years) Discontinued 12/01/2022, 02/08/2018, 01/05/2015, Additional history exists Pneumococcal Vaccine (50+ years) Completed 12/01/2022, 02/08/2018, 01/05/2015, Additional history exists HIV screening Completed 12/12/2023 Meningococcal Vaccine Aged Out No waqas mayank eligible based on patient's age to complete this topic Procedures Procedure Name Priority Date/Time Associated Diagnosis Comments CT HEAD CERVICAL SPINE WO IV CONTRAST ([facility]) Within 2 hours (STAT) 08/08/2024 8:37 PM EDT EKG STAT 08/08/2024 7:18 PM EDT XR CHEST PA AND LATERAL STAT 08/08/2024 5:25 PM EDT FENTANYL, URINE, WITH NO CONFIRMATION ([facility] ) STAT 08/08/2024 4:56 PM EDT URINE DRUG SCREEN W/ NO CONF ([facility]) STAT 08/08/2024 4:56 PM EDT URINE DRUG SCREEN W/ NO CONF ([facility]) STAT 08/08/2024 4:56 PM EDT TROPONIN T HIGH SENSITIVITY, 1 HOUR WITH REFLEX ([facility]) STAT - Timed 08/08/2024 4:40 PM EDT CBC AND DIFFERENTIAL STAT 08/08/2024 3:25 PM EDT BASIC METABOLIC PANEL STAT 08/08/2024 3:25 PM EDT IMMATURE PLATELET FRACTION ([facility]W [facility]) STAT 08/08/2024 3:25 PM EDT MANUAL DIFFERENTIAL STAT 08/08/2024 3 :25 PM EDT CBC WITH AUTO DIFFERENTIAL STAT 08/08/2024 3:25 PM EDT BASIC METABOLIC PANEL STAT 08/08/2024 3:25 PM EDT TROPONIN T HIGH SENSITIVITY, 0 HOUR BASELINE WITH REFLEX ([facility]) STAT 08/08/2024 3:25 PM EDT [...] 6:04 AM EDT TSH W/REFLEX TO FT4 ( GH LMW Q Y[facility]) Early AM 08/07/2024 [...] 08/06/2024 5:28 AM EDT IMMATURE PLATELET FRACTION ([facility]) Routine 08/06/2024 5:28 AM [...] 08/04/2024 5:28 AM EDT IMMATURE PLATELET FRACTION ([facility]) Routine 08/04/2024 5:28 AM EDT CBC WITH AUTO DIFFERENTIAL Early AM 08/04/2024 5:28 AM EDT BASIC METABOLIC PANEL Early AM 08/04/2024 5:28 AM EDT CARDIAC MISC. RESULT SCAN 08/04/2024 12:00 AM EDT CARDIAC EVENT MONITOR RESULT SCAN 08/04/2024 12:00 AM EDT CBC AND DIFFERENTIAL Early AM 08/03/2024 5:34 AM EDT BASIC METABOLIC PANEL Early AM 08/03/2024 5:34 AM EDT IMMATURE PLATELET FRACTION ([facility]) Routine 08/03/2024 5:34 AM EDT CBC WITH AUTO DIFFERENTIAL Early AM 08/03/2024 5:34 AM EDT BASIC METABOLIC PANEL Early AM 08/03/2024 5:34 AM EDT EKG Routine 08/02/2024 9:58 PM EDT TROPONIN T HIGH SENSITIVITY, 1 HOUR WITH REFLEX ( [facility]) STAT - Timed 08/02/2024 12:26 [...] 08/02/2024 10:05 AM EDT IMMATURE PLATELET FRACTION ([facility] LM[facility]) Routine 08/02/2024 10:05 AM EDT [...] No evidence of new acute intracranial abnormality. Unchanged hyperdense focus in the left frontal lobe since August 2, possibly cavernous malformation versus less likely stable hemorrhage. 2. No evidence for acute cervical spine fracture or traumatic subluxation. Please note that Noncontrast Head CT is not sensitive for the detection of ischemic infarct. If ischemic infarct is of clinical concern, additional clinical or imaging evaluation is recommended. [facility] Classification: Routine. Report initiated by: Naldo Lozano MD Reported and signed by: Hema Vincent MD [facility] Narrative 08/08/2024 7:[address] HEAD CERVICAL SPINE WO IV CONTRAST ([facility]) INDICATION: fall on xarelto. COMPARISON: CT HEAD CERVICAL SPINE WO IV CONTRAST ([facility]) 2024-08-02 TECHNIQUE: CT images were obtained from [...] mastoid air cells are clear. The visualized orbits and osseous structures are unremarkable. [...] CT HEAD CERVICAL SPINE WO IV CONTRAST ([facility]) INDICATION: fall on xarelto. COMPARISON: CT HEAD CERVICAL SPINE WO IV CONTRAST ([facility]) 2024-08-02 TECHNIQUE: CT images were obtained from [...] in the left frontal lobe since August 02, possibly cavernousmalformation versus less likely stable hemorrhage. 2. No evidence for acute cervical spine fracture or traumaticsubluxation. Please note that Noncontrast Head CT is not sensitive for the detection ofischemic infarct. If ischemic infarct is of clinical concern, additionalclinical or imaging evaluation is recommended. [facility] Classification: Routine. Report initiated by: Naldo Lozano MD Reported and signed by: Hema Vincent MD [facility] us Coral Fofana MD IMG CT ORDERABLES Final Resu lt * EKG (08/08/2024 7:18 PM EDT) Only the most recent of6 resultswithin the time period is included. Heart Rate 87 bpm SRC EKG QRS Interval 180 ms SRC EKG QT Interval 424 ms SRC EKG QTC Interval 510 ms SRC EKG P [place] 61 deg SRC EKG QRS [place] 104 deg SRC EKG T Wave [place] 14 deg SRC EKG P-R Interval 248 msec SRC EKG SEVERITY Abnormal ECG severity SRC EKG Comment::Sinus rhythm:Prolon ged VT interval:Right bundle branch block:Electronically Signed On 08-08-2024 19:23:54 EDT by Coral Fofana MD 08/08/2024 7:18 PM EDT us Coral Fofana MD ECG ORDERABLES Final Result SRC EKG * CXR (08/08/2024 5:25 PM EDT) Anatomical Region Laterality Modality Chest Digital Radiogra phy 08/08/2024 5:21 PM EDT Impressions 08/08/2024 5:22 PM EDT No overt edema or focal consolidation. [facility] Classification: Routine. Reported and signed by: Kenia Davidson MD [facility] Narrative 08/08/2024 5:22 [...] IMPRESSION: No overt edema or focal consolidation. [facility] Classification: Routine. Reported and signed by: Kenia Davidson MD [facility] Coral Fofana MD IMG DIAGNOSTIC IMAGING ORDER ADRIANNE Final Result * (ABNORMAL) Urine drug screen w/no conf ([facility]) (08/08/2024 4:56 PM EDT) Barbiturate Screen, Urine, No Conf. Negative Negative 08/08/2024 5:50 PM EDT [facility] Benzodiazepines Screen, Urine, No Conf. Negative Negative 08/08/2024 5:50 PM EDT [facility] Cannabinoids Screen, Urine, No Conf. Negative Negative 08/08/2024 5:50 PM EDT [facility] Cocaine Screen, Urine, No Conf. Negative Negative 08/08/2024 5:50 PM EDT [facility] Methadone Metabolite Screen, Urine, No Conf. Negative Negative 08/08/2024 5:50 PM EDT [facility] Opiates Screen, Urine, No Conf. Negative Negative 08/08/2024 5:50 PM EDT [facility] Oxycodone Screen, Urine, No Conf. Positive(A) Negative 08/08/2024 5:50 PM EDT [facility] Phencyclidine (PCP) Screen, Urine, No Conf. Negative Negative 08/08/2024 5:50 PM EDT [facility] Amphetamine Screen, Urine, No Conf. Negative Negative 08/08/2024 5:50 PM EDT [facility] Drugs Of Abuse Note See Comment 08/08/2024 5:50 PM EDT [facility] Comment: Drugs of Abuse Note: - [...] performed in a CLIA certified laboratory. Analyte Cutoff (ng/mL) Amphetamine 1000 Barbiturate 200 Benzodiazepine 200 Cannabinoids 50 Cocaine 300 Methadone/Methadone Metabolite* 100 Opiates 300 Oxycodone 100 Phencyclidine (PCP) 25 * At [facility], , and [facility] the screening cutoff for Methadone is 300 ng/mL. Urine Collection / Unknown 08/08/2024 4:56 PM EDT 08/08/2024 5:16 PM EDT us Coral Fofana MD URINE ORDERABLES Final Resul t [facility] [address] [place] [address], [facility] [phone] * Fentanyl, urine, with no confirmation ([facility]) (08/08/2024 4:56 PM EDT) [facility] Fentanyl Screen, Urine Negative Negative 08/08/2024 5:50 PM EDT [facility] Comment: This immunoassay is reported as negative if the reactivity is below that of a 5 ng/mL calibrator. Effective 09/20/22, the Clinical Chemistry Laboratory at [facility] is running the urine fentanyl immunoassay test using [employer]inn recommended reagents. Drugs Of Abuse Note 08/08/2024 5:50 PM EDT [facility] Comment: Formal chain of custody documentation not maintained on clinical specimens. Results are intended for medical management purposes only. Urine Collection / Unknown 08/08/2024 4:56 PM EDT 08/08/2024 5:16 PM EDT Coral Fofana MD URINE ORDERABLES Final Resul t Performing Organization Address [facility] Co de Phone Number [facility] [address] [place] [address] * Troponin T High Sensitivity, 1 Hour With Reflex ([facility]) (08/08/2024 4:40 PM EDT) Only the most recent of2 resultswithin the time period is included. [facility] High Sensitivity Troponin T 10 See Comment ng/L 08/08/2024 5:44 PM EDT [facility] Comment:High Sensitivity Tro ponin T levels should be interpreted in the context of the [facility] Care Signature pathway. 1 hour Delta from 0 Hour, HS-Troponin T -1 ng/L 08/08/2024 5:44 PM EDT [facility] Blood Venipuncture / Unknown 08/08/2024 4:40 PM EDT 08/08/2024 4:55 PM EDT Coral Fofana MD LAB BLOOD ORDERABLES Final R esult Performing Organization Address City/[facility] Co de Phone Number [facility] [address] [place] [address], [facility] [phone] * Immature Platelet Fraction ( [facility]) (08/08/2024 3:25 PM EDT) Only the most recent of7 resultswithin the time period is included. [facility] Immature Platelet Fraction 5.8 1.2 - 8.6 % 08/08/2024 4:51 PM EDT [facility] Comment:In a patient with th rombocytopenia, a non-elevated IPF is suggestive of a hypoproliferative marrow state. If the IPF is elevated in a thrombocytopenic patient, this is suggestive of a destructive or consumptive process. Absolute Immature Platelet Fraction 4.1 <20.0 x1000/ L 08/08/2024 4:51 PM EDT [facility] Blood Venipuncture / Unknown 08/08/2024 3:25 PM EDT 08/08/2024 3:30 PM EDT us Coral Fofana MD LAB BLOOD ORDERABLES Final R esult [facility] [address] [place] [address], [facility] [phone] * (ABNORMAL) Basic metabolic panel (08/08/2024 3:25 PM EDT) Only the most recent of4 resultswithin the time period is included. Sodium 140 136 - 144 mmol/L 08/08/2024 3:50 PM EDT [facility] Potassium 4.7 3.3 - 5.3 mmol/L 08/08/2024 3:50 PM EDT [facility] Chloride 104 98 - 107 mmol/L 08/08/2024 3:50 PM EDT [facility] CO2 27 20 - 30 mmol/L 08/08/2024 3:50 PM EDT [facility] Anion Gap 9 7 - 17 08/08/2024 3:50 PM EDT [facility] Glucose 115(H) 70 - 100 mg/dL 08/08/2024 3:50 PM EDT [facility] BUN 21 8 - 23 mg/dL 08/08/2024 3:50 PM EDT [facility] Creatinine 1.60(H) 0.40 - 1.30 mg/dL 08/08/2024 3:50 PM EDT [facility] Calcium 8.4(L) 8.8 - 10.2 mg/dL 08/08/2024 3:50 PM EDT [facility] BUN/Creatinine Ratio 13.1 8.0 - 23.0 08/08/2024 3:50 PM EDT [facility] eGFR (Creatinine) 48(L) >=60 mL/min/1.73 m2 08/08/2024 3:50 PM EDT [facility] Comment: [facility] utilizes CKD-EPI Creatinine 2020 to report eGFR. Values < 60 mL/min/1.73 m2 may indicate CKD if present for more than three months AND creatinine is at steady state. The eGFR provides a rough estimate of kidney function. For further guidance, please refer to the CKD: Adult Medical Claims Representative Signature pathway. Creatinine Delta 0.58(H) See Comment 08/08/2024 3:50 PM EDT [facility] Comment: Delta creatinine is the difference [...] MD LAB BLOOD ORDERABLES Final R esult [facility] [address] [place] [address], [facility] [phone] * Troponin T High Sensitivity, Emergency; 0 hour baseline AND 1 hour with reflex (3 hour) (:25 PM EDT) Only the most recent of2 resultswithin the time period is included. [facility] Signature High Sensitivity Troponin T 11 See Comment ng/L 08/08/2024 3:52 PM EDT [facility] Comment:High Sensitivity Tro ponin T levels should be interpreted in the context of the [facility] Care Signature pathway. Blood Venipuncture / Unknown 08/08/2024 3:25 PM EDT 08/08/2024 3:30 PM EDT us Coral Fofana MD LAB BLOOD ORDERABLES Final R esult [facility] [address] [place] [address], [facility] [phone] * (ABNORMAL) Manual Differential (08/08/2024 3:25 PM EDT) Neutrophils 74.3(H) 39.0 - 72.0 % 08/08/2024 4:51 PM EDT [facility] Lymphocytes 15.4(L) 17.0 - 50.0 % 08/08/2024 4:51 PM EDT [facility] Monocytes 4.3 4.0 - 12.0 % 08/08/2024 4:51 PM EDT [facility] Eosinophils 6.0(H) 0.0 - 5.0 % 08/08/2024 4:51 PM EDT [facility] Basophil 0.0 0.0 - 1.4 % 08/08/2024 4:51 PM EDT [facility] Neutrophils Absolute 4.24 2.00 - 7.60 x 1000/ L 08/08/2024 4:51 PM EDT [facility] Lymphocyte Absolute 0.88 0.60 - 3.70 x 1000/ L 08/08/2024 4:51 PM EDT [facility] Monocyte Absolute Count 0.25 0.00 - 1.00 x 1000/ L 08/08/2024 4:51 PM EDT [facility] Eosinophil Absolute Count 0.34 0.00 - 1.00 x 1000/ L 08/08/2024 4:51 PM EDT [facility] Basophil Absolute Count 0.00 0.00 - 1.00 x 1000/ L 08/08/2024 4:51 PM EDT [facility] RBC Morphology Reviewed 08/08/2024 4:51 PM EDT [facility] Ovalocytes 1+(A) None 08/08/2024 4:51 PM EDT [facility] Blood Venipuncture / Unknown 08/08/2024 3:25 PM EDT 08/08/2024 3:30 PM EDT us Coral Fofana MD LAB BLOOD ORDERABLES Final R esult [address] [phone] * (ABNORMAL) CBC auto differential (08/08/2024 3:25 PM EDT) Only the most recent of7 resultswithin the time period is included. WBC 5.7 4.0 - 11.0 x1000/ L 08/08/2024 4:51 PM EDT [facility] RBC 4.05 4.00 - 6.00 M/ L 08/08/2024 4:51 PM EDT [facility] Hemoglobin 11.4(L) 13.2 - 17.1 g/dL 08/08/2024 4:51 PM EDT [facility] Hematocrit 35.90(L) 38.50 - 50.00 % 08/08/2024 4:51 PM EDT [facility] MCV 88.6 80.0 - 100.0 fL 08/08/2024 4:51 PM EDT [facility] MCH 28.1 27.0 - 33.0 pg 08/08/2024 4:51 PM EDT [facility] MCHC 31.8 31.0 - 36.0 g/dL 08/08/2024 4:51 PM EDT [facility] RDW-CV 14.2 11.0 - 15.0 % 08/08/2024 4:51 PM EDT [facility] Platelets 76(L) 150 - 420 x1000/ L 08/08/2024 4:51 PM EDT [facility] Comment:Platelet count verif ied by smear. MPV 12.1(H) 8.0 - 12.0 fL 08/08/2024 4:51 PM EDT [facility] nRBC 0.0 0.0 - 1.0 % 08/08/2024 4:51 PM EDT [facility] Absolute nRBC 0.00 0.00 - 1.00 x 1000/ L 08/08/2024 4:51 PM EDT [facility] Blood Venipuncture / Unknown 08/08/2024 3:25 PM EDT 08/08/2024 3:30 PM EDT Coral Fofana MD LAB BLOOD ORDERABLES Final R esult Performing Organization Address City/[facility]/[place] [address], [facility] [phone] * Magnesium (08/08/2024 3:25 PM EDT) Only the most recent of2 resultswithin the time period is included. Magnesium 2.1 1.7 - 2.4 mg/dL 08/08/2024 3:50 PM EDT [facility] Blood Venipuncture / Unknown 08/08/2024 3:25 PM EDT 08/08/2024 3:30 PM EDT Coral Fofana MD LAB BLOOD ORDERABLES Final R esult Performing Organization Address City/[facility] Co de Phone Number [address] [phone] * (ABNORMAL) Comprehensive metabolic panel (08/08/2024 5:18 AM EDT) Only the most recent of3 resultswithin the time period is included. Sodium 139 136 - 144 mmol/L 08/08/2024 5:50 AM [facility] Potassium 4.2 3.3 - 5.3 mmol/L 08/08/2024 5:50 AM [facility] Chloride 105 98 - 107 mmol/L 08/08/2024 5:50 AM [facility] CO2 25 20 - 30 mmol/L 08/08/2024 5:50 AM [facility] Anion Gap 9 7 - 17 08/08/2024 5:50 AM [facility] Glucose 147(H) 70 - 100 mg/dL 08/08/2024 5:50 AM [facility] BUN 16 8 - 23 mg/dL 08/08/2024 5:50 AM [facility] Creatinine 1.02 0.40 - 1.30 mg/dL 08/08/2024 5:50 AM [facility] Calcium 7.8(L) 8.8 - 10.2 mg/dL 08/08/2024 5:50 AM [facility] BUN/Creatinine Ratio 15.7 8.0 - 23.0 08/08/2024 5:50 AM [facility] Total Protein 5.8(L) 5.9 - 8.3 g/dL 025 5:50 AM [facility] Comment:As of 2023, th e reference interval for Total Protein has been changed from (6.6 to 8.7 g/dL) to (5.9 to 8.3 g/dL). Albumin 3.5(L) 3.6 - 5.1 g/dL 08/08/2024 5:50 AM [facility] Comment:As of 2023, th e reference interval for Albumin has been changed from (3.6 to 4.9 g/dL) to (3.6 to 5.1 g/dL). Total Bilirubin 0.2 <=1.2 mg/dL 08/09/19 25 5:50 AM [facility] Alkaline Phosphatase 70 9 - 122 U/L 08/08/2024 5:50 AM [facility] Alanine Aminotransferase (ALT) 16 9 - 59 U/L 08/08/2024 5:50 AM [facility] Comment:Calcium dobesilate c an cause artificially low ALT results at therapeutic concentrations Aspartate Aminotransferase (AST) 17 10 - 35 U/L 08/08/2024 5:50 AM [facility] Globulin 2.3 2.0 - 3.9 g/dL 08/08/2024 5:50 AM [facility] Comment:As of 2023, e reference interval for Globulin has been changed from (2.3 to 3.5 g/dL) to (2.0 to 3.9 g/dL). A/G Ratio 1.5 1.0 - 2.2 08/08/2024 5:50 AM [facility] AST/ALT Ratio 1.1 Reference Range Not Established 08/08/2024 5:50 AM [facility] eGFR (Creatinine) >60 >=60 mL/min/1.73m2 08/08/2024 5:50 AM [facility] Comment: [facility] utilizes CKD-EPI Creatinine 2020 to report eGFR. Values < 60 mL/min/1.73 m2 may indicate CKD if present for more than three months AND creatinine is at steady state. The eGFR provides a rough estimate of kidney function. For further guidance, please refer to the CKD: Adult Medical Claims Representative Signature pathway. Creatinine Delta -0.14 See Comment 5:50 AM [facility] Comment: Delta creatinine is the difference [...] ORDERABLES Final Res ult Performing Organization Address [facility] de Phone Number [address] [phone] * TSH w/reflex to FT4 (08/07/2024 6:04 AM EDT) Thyroid Stimulating Hormone 2.910 See Comment IU/mL 08/07/2024 7:02 AM EDT [facility] Comment: Male & Non- Females: 0.270-4.200 IU/mL 1st Trimester: 0.110-3.480 IU/mL 2nd Trimester: 0.320-3.850 IU/mL Blood ARM NEC / Unknown Venipuncture / Unknown 08/07/2024 6:04 AM EDT 08/07/2024 6:17 AM EDT us Courtney Combs MD LAB BLOOD ORDERABLES Final Res ult Performing Organization Address [facility] Co de Phone Number [address] [phone] * Vitamin B12 (08/07/2024 6:04 AM EDT) [facility] Vitamin B12 358 232 - 1,245 pg/mL 08/07/2024 7:02 AM EDT [facility] Blood ARM NEC / Unknown Venipuncture / Unknown 08/07/2024 6:04 AM EDT 08/07/2024 6:17 AM EDT us Courtney Combs MD LAB BLOOD ORDERABLES Final Res ult Performing Organization Address [facility] de Phone Number [address] [phone] * (ABNORMAL) POC Glucose (Fingerstick) (08/06/2024 8:20 PM EDT) Only the most recent of6 resultswithin the time period is included. Glucose, Meter 173(H) 70 - 100 mg/dL 08/06/2024 8:20 PM EDT [facility] Blood 08/06/2024 8:20 PM EDT 08/06/2024 8:20 PM EDT us Courtney Combs MD POINT OF CARE TEST ORDERABLES Final Result Performing Organization Address [facility]/ZIP Co de Phone Number [address] [phone] * PSA, total (screening) (08/06/2024 5:28 AM EDT) Prostate Specific Antigen, Screening 0.556 <=4.000 ng/mL 08/06/2024 10:27 AM EDT [facility] Comment: This assay is performed on the [employer] platform using WHO standards. A total PSA value of 4ng/mL may not be an appropriate actionable threshold in all clinical situations. For healthcare providers, see institutional care pathway via Epic Tools > Integrated Care Models > Abnormal Prostate [email or web address] [email or web address] The results cannot be interpreted as absolute evidence of the presence or absence of malignant disease. The values obtained from a different assay method or kits cannot be used interchangeably. This test was performed on the Hector [id number] manufactured by [employer] using an ElectroChemiLuminescence immunoassay. Blood Venipuncture / Unknown 08/06/2024 5:28 AM EDT 08/06/2024 5:35 AM EDT us Courtney Combs MD LAB BLOOD ORDERABLES [place] [address], [facility] [phone] * EEG (08/05/2024 1:39 PM EDT) Narrative [facility] NEUROPHYSIOLOGY - 08/05/2024 1:39 PM EDT Maria De Jesus Cordero MD 08/06/2024 1:36 PM [facility] Epilepsy [facility] Inpatient EEG Report Name: Joaquín Barrientos Date of : 1960 Date of Study: 08/05/2024 Start time: 10:51 Finish time: 12:06 Study Duration: >60 minutes Leads: 19 leads (no inferior temporal chains) Type: Inpatient video-EEG Location & Service: [facility] Inpatient; Internal Medicine Requesting Provider: Courtney Combs MD Reason for Study: This is a 64 y.o. male with tetralogy of Fallot status post repair in childhood, heart failure with reduced ejection fraction and nonischemic cardiomyopathy, atrial fibrillation on Xarelto, ICD placement, type 2 diabetes, anxiety, schizophrenia, and hypothyroidism presenting for syncope. Prior EEGs None Relevant Medications: 1) Anti-seizure medications: None 2) Other relevant medications: Escitalopram oxalate Quetiapine Risperidone Trazodone Interpretation: Background activity: The most awake background was continuous, reactive, and consisted of alpha and beta frequencies, normal voltage. There was a 11 Hz posterior dominant rhythm that was symmetric and well-formed. Symmetry and focal abnormalities: Symmetric. Epileptiform activity: No epileptiform patterns or seizures. Other notable findings: None Sleep rhythms: Drowsiness captured, no N2 sleep transients. Activation procedures: None EKG: Regular rate. Video events: No clinical events or seizures captured. Signed: Javy Edmond (R. EEG T., [facility]) Neurophysiologist EEG Impression: Normal >60-minute awake and drowsy inpatient video EEG. - No seizures or epileptiform patterns. No prior study for comparison. Interpreted by: Epilepsy Attending Physician's Attestation: I have personally reviewed the EEG, reviewed/edited the final report, and agree with the above read. Maria De Jesus Cordero MD us Patricia Alas MD NEUROLOGY ORDERABLES Final Resu lt [facility] NEUROPHYSIOLOGY [address] [place] [id number] * Urinalysis with culture reflex ([facility]) (08/05/2024 1:38 PM EDT) Clarity, UA Clear Clear 08/05/2024 2:32 PM EDT [facility] Color, UA Yellow Yellow, Colorless 08/05/2024 2:32 PM EDT [facility] Specific Stanley, UA 1.015 1.005 - 1.030 08/05/2024 2:32 PM EDT [facility] pH, UA 7.0 5.5 - 7.5 08/05/2024 2:32 PM EDT [facility] Protein, UA Negative Negative, Trace 08/05/2024 2:32 PM EDT [facility] Glucose, UA Negative Negative 08/05/2024 2:32 PM EDT [facility] Ketones, UA Negative Negative 08/05/2024 2:32 PM EDT [facility] Blood, UA Negative Negative 08/05/2024 2:32 PM EDT [facility] Bilirubin, UA Negative Negative 08/05/2024 2:32 PM EDT [facility] Leukocytes, UA Negative Negative 08/05/2024 2:32 PM EDT [facility] Nitrite, UA Negative Negative 08/05/2024 2:32 PM EDT [facility] Urobilinogen, UA <=2.0 <=2.0 mg/dL 08/05/2024 2:32 PM EDT [facility] Warner Top Tube Received ? Yes 08/05/2024 2:32 PM EDT [facility] Urine Collection / Unknown 08/05/2024 1:38 PM EDT 08/05/2024 1:41 PM EDT us Courtney Combs MD URINE ORDERABLES Final Result Performing Organization Address [facility]/State/ZIP Co de Phone Number [address] [phone] * UA reflex to culture (08/05/2024 1:38 PM EDT) Reflex Urine Culture See Comment 08/05/2024 7:00 PM EDT [facility] Urine Collection / Unknown 08/05/2024 1:38 PM EDT 08/05/2024 1:41 PM EDT Narrative [facility] DEPARTMENT OF LABORATORY MEDICINE - 08/05/2024 7:00 PM EDT Urine culture will be reflexed if indicated by urinalysis results. Please check microbiology results for urine culture. us Courtney Combs MD URINE ORDERABLES Final Result Performing Organization Address City/[facility]/ZIP Co de Phone Number [facility] DEPARTMENT OF LABORATORY MEDICINE [address] [place] [id number] [place] [address] [phone] * (ABNORMAL) Hemoglobin A1c (08/04/2024 5:28 AM EDT) Hemoglobin A1c 6.5(H) 4.0 - 5.6 % 08/05/2024 5:52 PM EDT [facility] Comment: Hemoglobin A1c values of 5.7-6.4 % identify individuals with an increased risk for future diabetes and to whom the term pre-diabetes may be applied. Hemoglobin A1c values greater than 6.4% on more [...] mg/dL 140 mg/dL 08/05/2024 5:52 PM EDT [facility] Comment: Estimated average glucose (eAG) is a calculated value designed to estimate the expected average blood glucose level throughout the day from a single measurement of glycated hemoglobin A1C (HbA1c) and follows the calculation proposed by the [place] [employer] (Diabetes Care 31: 1-6, 2008). It may have less accuracy in children, women and patients with certain erythrocyte disorders. Blood Venipuncture / Unknown 08/04/2024 5:28 AM EDT 08/04/2024 5:35 AM EDT Courtney Combs MD LAB BLOOD ORDERABLES Final Res ult [address] [phone] * Cardiac Misc.?? Result Scan (08/04/2024 12:00 [...] prostate) neoplasm. Recommend urology consult and cystoscopy. [facility] Not[facility] Classification: Unexpected findings. Report initiated by: Patircio Ochoa MD Reported and signed by: Lashanda Alexandra MD Narrative 08/02/2024 11:[address] ABDOMEN PELVIS W IV CONTRAST HISTORY: Abdominal trauma, blunt COMPARISON: None TECHNIQUE: CT images of the abdomen and pelvis were obtained from the diaphragms to the pubic symphysis after the administration of intravenous contrast. IV CONTRAST: 100 mL iohexoL (OMNIPAQUE) 350 [...] (or prostate) neoplasm.Recommend urology consult and cystoscopy. [facility] Classification: Unexpected findings. Report initiated by: Patricio Ochoa MD Reported and signed by: Lashanda Alexandra MD Octavio Boyd MD IM CT ORDERABLES Final Result * CTA Chest (PE) w IV Contrast (08/02/2024 11:06 AM EDT) Anatomical Region Laterality Modality Chest Computed Tomogra phy 08/02/2024 10:4 4 AM EDT Impressions 08/02/2024 12:10 PM EDT Very limited exam with no evidence of proximal pulmonary embolism up to the level of segmental arteries. Cardiomegaly. Small airway disease. Diffuse idiopathic skeletal hyperostosis (DISH). [facility] Classification: Routine. Reported and [...] less than 1. There is no reflux of contrast into the [...] Small airway disease.Diffuse idiopathic skeletal hyperostosis (DISH). [facility] Not[facility] Classification: Routine. Reported and signed by: Lashanda Alexandra MD Octavio Boyd MD IM CT ORDERABLES Final Result * Pelvis (08/02/2024 10:20 AM EDT) Anatomical Region Laterality Modality Pelvis, Ortho Pelvis, RCC Abdomen/Pelvis Computed Radiography 08/02/2024 10:2 5 AM EDT Impressions 08/02/2024 10:33 AM EDT No acute osseous injury. [facility] Classification: Routine. Report initiated [...] urinary bladder. IMPRESSION: No acute osseous injury. [facility] Classification: Routine. Report initiated by: Patricio Ochoa MD Reported and signed by: Lashanda Alexandra MD Octavio Boyd MD [facility] DIAGNOSTIC IMAGING ORDERABL ES Final Result * CXR portable (08/02/2024 10:19 AM EDT) Anatomical Region Laterality Modality Chest Computed Radiogr aphy 08/02/2024 10:2 4 AM EDT Impressions 08/02/2024 10:32 AM EDT No acute cardiothoracic abnormality. [facility] Classification: Routine. Report initiated by: Patricio Ochoa MD Reported and signed by: Lashanda Alexandra MD [facility] 08/02/2024 10:32 AM EDT XR CHEST PA [...] osseous injury. IMPRESSION: No acute cardiothoracic abnormality. [facility] Not[facility] Classification: Routine. Report initiated by: Patricio Ochoa MD Reported and signed by: Lashanda Alexandra MD Octavio Boyd MD [facility] DIAGNOSTIC IMAGING ORDERABL ES Final Result * PT/INR (08/02/2024 10:05 AM EDT) Prothrombin Time 11.4 9.5 - 12.1 seconds 08/02/2024 10:23 AM EDT [facility] INR 1.09 0.90 - 1.16 08/02/2024 10:23 AM EDT [facility] Blood Venipuncture / Unknown 08/02/2024 10:05 AM EDT 08/02/2024 10:09 AM EDT Octavio Boyd MD LAB BLOOD ORDERABLES Final Resu lt Performing Organization Address [facility]/ZIP Co de Phone Number [address] [phone] * Lipase (08/02/2024 10:05 AM EDT) Lipase 31 11 - 55 U/L 08/02/2024 10:38 AM EDT [facility] Blood Venipuncture / Unknown 08/02/2024 10:05 AM EDT 08/02/2024 10:09 AM EDT Octavio Boyd MD LAB BLOOD ORDERABLES Final Resu lt Performing Organization Address [facility] Co de Phone Number [address] [phone] * Ethanol ([facility]) (08/02/2024 10:05 AM EDT) Ethanol <10 <10 mg/dL 08/02/2024 10:38 AM EDT [facility] Blood Venipuncture / Unknown 08/02/2024 10:05 AM EDT 08/02/2024 10:09 AM EDT Octavio Boyd MD LAB BLOOD ORDERABLES Final Resu lt Performing Organization Address [facility] Co de Phone Number [address] [phone] * Hepatic function panel (08/02/2024 10:05 AM EDT) Total Bilirubin 0.4 <=1.2 mg/dL 08/03/19 10:38 AM EDT [facility] Bilirubin, Direct 0.1 <=0.2 mg/dL 2024 10:38 AM [facility] Alkaline Phosphatase 69 9 - 122 U/L 08/02/2024 10:38 AM [facility] Alanine Aminotransferase (ALT) 29 9 - 59 U/L 08/02/2024 10:38 AM [facility] Comment:Calcium dobesilate c an cause artificially low ALT results at therapeutic concentrations Aspartate Aminotransferase (AST) 29 10 - 35 U/L 08/02/2024 10:38 AM [facility] AST/ALT Ratio 1.0 Reference Range Not Established 08/02/2024 10:38 AM [facility] Total Protein 6.6 5.9 - 8.3 g/dL 025 10:38 AM [facility] Comment:As of 2023, th e reference interval for Total Protein has been changed from (6.6 to 8.7 g/dL) to (5.9 to 8.3 g/dL). Albumin 4.0 3.6 - 5.1 g/dL 08/02/2024 10:38 AM [facility] Comment:As of 2023, th e reference interval for Albumin has been changed from (3.6 to 4.9 g/dL) to (3.6 to 5.1 g/dL). Globulin 2.6 2.0 - 3.9 g/dL 08/02/2024 10:38 AM [facility] Comment:As of 2023, th e reference interval for Globulin has been changed from (2.3 to 3.5 g/dL) to (2.0 to 3.9 g/dL). A/G Ratio 1.5 1.0 - 2.2 08/02/2024 10:38 AM [facility] Blood Venipuncture / Unknown 08/02/2024 10:05 AM EDT 08/02/2024 10:09 AM EDT us Octavio Boyd MD LAB BLOOD ORDERABLES Final Resu lt [place], [place] [address] [phone] * ED CRITICAL CARE (08/02/2024 9:48 AM EDT) Narrative Octavio Boyd MD - 08/02/2024 9:48 AM EDT Octavio Boyd MD 08/04/2024 5:42 PM ED Critical Care Performed by: Octavio Boyd MD Authorized by: Octavio Boyd MD Critical care provider statement: Critical care time (minutes): 50 Critical care time was exclusive of: Separately billable procedures and treating other patients and teaching time Critical care was time spent personally by me on the following activities: Trauma, examination of patient, discussions with consultants, ordering and review of radiographic studies and ordering and review of laboratory studies Octavio Boyd MD PROCEDURE/MINOR SURGICAL ORDERA BLES Final Result * Cardiac EKG Result Scan (08/02/2024 12:00 AM EDT) Provider Not In System CV CARDIAC REPORT (CVR) F inal Result * Cardiac Device Interrogation Result Scan (08/02/2024 12:00 AM EDT) Provider Not In System CV CARDIAC REPORT (CVR) F inal Result * Creatinine, urine, random (11/05/2015 7:03 PM EDT) Creatinine, Urine, Random 42 Reference Range not established mg/dL 11/05/2015 7:32 PM EDT [facility] Urine specimen (specimen) Collection / Unknown 11/05/2015 7:03 PM EDT 11/05/2015 7:11 PM EDT Narrative [facility] - 11/05/2015 7:32 PM EDT R1 us Carlos Lara AIRPORT MAINTENANCE CHIEF URINE ORDERABLES Fi nal Result [facility] [address] [place] [id number], [facility] [phone] from Last 3 Months or Most Recently Relevant to Health Maintenance Insurance [place]ICARE MEDICARE [facility] [facility] [place] MEDICARE [facility] [facility] [place] [facility] [id number] MEDICAID MEDICARE [place] [facility] [place] [id number] MEDICAID MEDICARE MANAGED MISC MEDICARE [id number] MEDICAID MEDICARE [place] [facility] [id number] MEDICAID MEDICARE MANAGED MISC MEDICARE Advance Directives * Full Code (Latest Code Status on File) Date Activated Date Inactivated Comments 08/02/2024 2:10 PM 08/08/2024 2:42 PM * Full Interventions Date Activated Date Inactivated Comments 11/04/2015 8:13 PM 11/06/2015 6:27 PM Question Answer Comments With Whom was the Code Statu s Discussed? Health Care Associate Director Financial Aid Specify Individuals' Names: Kinza preciado, healthcare proxy and foster speed operator * Full Interventions Date Activated Date Inactivated Comments 11/04/2015 6:05 PM 11/04/2015 8:09 PM Care Teams Application Performance Engineer Relationship Specialty Start Date End Date Obtain, Unable To PCP - General 08/02/24
--- OUTSIDE RECORDS SUMMARY | 2024-10-21 12:54 | XMS_ITS | Clinical Summary ---
Author Organization [facility] Address [address] [facility] [place] [address] Care Team Providers Care Sleeping Room Cleaner Name Role Phone Unknown Primary Care Provider Unavailabl e Social History Tobacco Use Types Packs/Day Years Used Date Smoking Tobacco: Never Assessed Sex and Gender Information Value Date Recorded Sex Assigned at Not on file Legal Sex Male 5:30 PM EDT Gender Identity Not on file Sexual Orientation Not on file Plan of Treatment Health Maintenance Due Date Last Done Comments CT Colonography 1960 Colonoscopy 1960 Colorectal Cancer Screening 1960 FIT DNA 1960 FIT 1960 Sigmoidoscopy (10 year) with FIT yearly 1960 Sigmoidoscopy 1960 HIV screen 01/26/1980 Hepatitis C Screening 01/26/1980 Lipid Screening 01/26/1980 Tetanus/Diphtheria/Pertussis Vaccines (1 - Tdap) 01/25 Pneumoccocal Vaccine: 50+ (1 of 1 - PCV) 01/26/2012 Zoster vaccine (1 of 2) 01/26/2012 Advance Directive 2017 Covid-19 Vaccine (1 - season) 2023 Influenza (Flu) vaccine (1 o f 1 - Influenza standard series) 12/02/2024 Medical Devices Implanted Type Area Hiv Counselor Device Identifier Shelf Expiration Date Model / Serial / Lot Defibrillato r-06/12/2008 Implanted:Qt y: 1 on 06/12/2008 Defibrillator Left: Chest [employer] - [id number] [facility] 2207-[address] AVILA / [id number] / Lead- 7 Implanted:Qt y: 1 on 05/05/[address] [employer] - [id number] [facility] 1688TC TENDRIL SDX / [id number] / Description:RA LEAD Lead-06/13/19 09 Implanted:Qt y: 1 on 06/12/[address] [employer] - [id number] [facility] 7121 EULALIO / [id number] / Description:RV LEAD Care Teams Sleeping Room Cleaner Relationship Specialty Start Date End Date Unknown None PCP - General 03/20/17
--- NOTE | 2024-10-21 13:05 | PC.NURSE ---
Pt reporting he is still nauseous and still at a 7/10 for CPMD Tobar aware, he reports he is going to place some repeat lab work and more nausea medication at this time.
[2024-10-21 13:47] LABS: Troponin-I High Sensitivity < 2.7 ng/L (<3.5-35.0)
== END 2024-10-21 15:06 | disposition home or self-care (01) ==
PROVIDERS: Emergency Provider Emergency Medicine
DX: R07.9 Chest pain, unspecified (principal); E11.9 Type 2 diabetes mellitus without complications; I10 Essential (primary) hypertension; E78.5 Hyperlipidemia, unspecified; J45.909 Unspecified asthma, uncomplicated; Z95.0 Presence of cardiac pacemaker; Z79.899 Other long term (current) drug therapy; Z79.84 Long term (current) use of oral hypoglycemic drugs; Z79.82 Long term (current) use of aspirin
CPT/HCPCS: 36415; 71045; 80053; 84484; 85025; 93005; 96374; 96375; 99284; 99285; J2270; J2405; J2765

== ENCOUNTER → 2024-10-21 11:12 | Outpatient (BNV) | payer OTHER, SELFPAY | PROVIDERS: Emergency Provider Emergency Medicine; Visit Provider Internal Medicine Cardiovascular Disease | DX: I45.10 Unspecified right bundle-branch block (principal) | CPT/HCPCS: 93010 ==

== ENCOUNTER → 2024-10-21 11:18 | Outpatient (BNV) | payer OTHER, SELFPAY | PROVIDERS: Emergency Provider Emergency Medicine; Visit Provider Radiology Diagnostic Radiology | DX: R52 Pain, unspecified (principal) | CPT/HCPCS: 71045 ==

== ENCOUNTER 2024-11-05 14:46 | Emergency (ER) | payer OTHER, SELFPAY ==
--- NOTE | ~2024-11-05 | XR_ITS ---
EXAMINATION: XR CHEST 2 VIEWS HISTORY: L sided chest pain COMPARISON: Comparison is made with the prior examination dated 10/21/2024. FINDINGS: PA and lateral views of the chest are submitted. A left subclavian pacemaker is unchanged in position. The lungs are expanded and clear. There is no pleural effusion, pneumothorax, or pulmonary vascular congestion. The heart is normal in size. There is degenerative disc disease of the spine. XR/XR chest 2V IMPRESSION: No acute cardiopulmonary abnormality. Electronically signed by: Rocael Golden MD 11/05/2024 03:43 PM EDT
[2024-11-05 14:52] VITALS: BP 120/75; PULSE 76; O2SAT 100
[2024-11-05 14:57] VITALS: BP 120/75; PULSE 84; RESP 16; TEMP 36.4; O2SAT 98; BMI 35.1
--- NOTE | 2024-11-05 15:01 | ECG_ITS ---
Test Reason : CP Blood Pressure : */* mmHG Vent. Rate : 77 BPM Atrial Rate : 77 BPM P-R Int : 192 ms QRS Dur : 168 ms QT Int : 448 ms P-R-T Axes : 51 102 62 degrees QTcB Int : 506 ms Sinus rhythm with sinus arrhythmia with occasional Premature ventricular complexes Right bundle branch block Abnormal ECG When compared with ECG of 21-Oct-2024 11:13, Premature ventricular complexes are now Present No significant changes seen Referred By: Generic ED Physician Electronically Signed By: PEPE CABALLERO
--- NOTE | 2024-11-05 15:02 | ED.CHESTPAIN ---
HPI - Chest Pain General Chief Complaint: Chest Pain Stated Complaint: SUDDEN CRUSHING L CP RAD TO L ARM W/FACE NUMB,NSR Time Seen by Provider: 11/05/24 15:02 Source: patient and EMS Mode of arrival: EMS Limitations: no limitations History of Present Illness ED Provider: DEBO NEGRON PA-C HPI narrative: 64 year old male with pmhx significant for COPD, MDD, somatoform disorder, alcohol abuse, tetralogy of Fallot with right bundle-branch block in ICD placed in 2013, intellectual disability presents to the ED today via EMS from [facility] for evaluation of intermittent left-sided chest pain x4 days, worsening today. Pain is described as crushing. Pain radiates down his left arm. Reports associated nausea without vomiting. He was administered 324 of aspirin by EMS in route to our facility however states this did not help his discomfort. Patient states that he was evaluated at [facility] on Monday (4 days ago) for same. He was told his potassium, magnesium and calcium are low and he received repletion while there and discharged to a rehab facility ([facility]) due to unstable gait. He reports arriving there yesterday. Reports intermittent left sided chest pain x4 days. Trialing Tylenol without improvement. He states that morphine and dilaudid typically alleviate his chest pain. Related Data Home Medications ?Medication ?Instructions ?Recorded ?Confirmed albuterol sulfate 90 mcg/actuation 2 puff inhalation Q4H PRN 08/19/22 01/01/23 aerosol inhaler Shortness Of Breath hydroxyzine pamoate 50 mg capsule 50 mg PO BID Anxiety / Nausea 08/19/22 01/01/23 nitroglycerin 0.4 mg sublingual 0.4 mg sublingual Q5M PRN Chest 08/19/22 01/01/23 tablet Pain sotalol 80 mg tablet 80 mg PO BID 08/19/22 01/01/23 tamsulosin 0.4 mg capsule 0.4 mg PO BEDTIME 08/19/22 01/01/23 levothyroxine 75 mcg tablet 75 mcg PO DAILY@0600 09/08/22 01/01/23 risperidone 1 mg tablet 1.5 mg PO BEDTIME 09/08/22 01/01/23 rivaroxaban 20 mg tablet (Xarelto) 20 mg PO DAILY@1800 09/08/22 01/01/23 acetaminophen 325 mg tablet 650 mg PO Q4H PRN Fever Or Pain 01/01/23 01/01/23 aluminum-mag hydroxide-simethicone 10 ml PO Q4H PRN Constipation 01/01/23 01/01/23 400 mg-400 mg-40 mg/5 mL oral susp (Mylanta Maximum Strength) aspirin 81 mg tablet,delayed 81 mg PO DAILY 01/01/23 01/01/23 release bisacodyl 5 mg tablet,delayed 10 mg PO BEDTIME PRN Constipation 01/01/23 01/01/23 release calcium carbonate (Tums) 300 mg PO Q4H PRN Dyspepsia 01/01/23 01/01/23 cyclobenzaprine 5 mg tablet 5 mg PO TID PRN muscle spasms 01/01/23 01/01/23 escitalopram oxalate 20 mg tablet 20 mg PO DAILY 01/01/23 01/01/23 gabapentin 300 mg capsule 300 mg PO BID 01/01/23 01/01/23 magnesium hydroxide 400 mg/5 mL 30 ml PO DAILY PRN Constipation 01/01/23 01/01/23 oral suspension melatonin 10 mg tablet 10 mg PO BEDTIME PRN Insomnia 01/01/23 01/01/23 metformin 500 mg tablet 500 mg PO DAILY 01/01/23 01/01/23 ondansetron HCl 4 mg tablet 4 mg PO Q4H PRN nausea and 01/01/23 01/01/23 vomitting quetiapine 100 mg tablet 100 mg PO BEDTIME 01/01/23 01/01/23 sumatriptan succinate 50 mg tablet 50 mg PO BID PRN migraines 01/01/23 01/01/23 tramadol 50 mg tablet 50 mg PO Q6H PRN migraines 01/01/23 01/01/23 trazodone 50 mg tablet 25 mg PO BEDTIME 01/01/23 01/01/23 hydroxyzine HCl 50 mg tablet 50 mg PO BEDTIME 12/26/23 trazodone 150 mg tablet 150 mg PO BEDTIME 12/26/23 Previous Rx's ?Medication ?Instructions ?Recorded isosorbide mononitrate 30 mg 30 mg PO DAILY #0 tabs 09/22/21 tablet,extended release 24 hr ezetimibe 10 mg tablet 10 mg PO DAILY 7 days #7 tabs 08/24/22 oxycodone 5 mg tablet 5 mg PO BID PRN pain #4 tabs 01/01/23 prednisone 20 mg tablet 20 mg PO DAILY #5 tabs 01/01/23 cyclobenzaprine 10 mg tablet 10 mg PO TID PRN muscle spasm #10 08/31/23 tabs acetaminophen 325 mg capsule 325 mg PO Q4H PRN pain #30 caps 09/30/23 (Tylenol) lidocaine 5 % topical patch 1 patch topical DAILY PRN pain #15 09/30/23 ea meclizine 25 mg tablet 25 mg PO DAILY PRN dizziness #14 09/30/23 tabs miscellaneous medical supply #1 ea 12/26/23 naloxone 4 mg/actuation nasal 4 mg intranasal Q2M PRN opioid 12/26/23 spray (Narcan) overdose #2 ea oxycodone-acetaminophen 5 mg-325 1 tab PO Q8H PRN pain (scale score 12/26/23 mg tablet 7-10) 7 days #20 tabs Allergies Allergy/AdvReac Type Severity Reaction Status Date / Time aripiprazole (From Abilify) Allergy Severe Rash Verified 11/05/24 15:00 peas Allergy Severe HIVES Verified 11/05/24 15:00 atorvastatin (From Lipitor) Allergy Intermediate Hives Verified 11/05/24 15:00 levetiracetam Allergy Itching Verified 11/05/24 15:00 bee pollen (bee stings) AdvReac Severe Anaphylaxis Verified 11/05/24 15:00 Review of Systems Review of Systems: Constitutional: No fever, chills, fatigue, night sweats, weight changes ENT/Mouth: No ear pain, hearing loss, nasal congestion, sinus pain, rhinorrhea, sore throat Eyes: No eye pain, swelling, redness, vision changes, discharge Cardio: No palpitations, HARRIS, orthopnea, peripheral edema, +chest pain Pulm: No SOB, cough, sputum, wheezing, dyspnea, hemoptysis GI: No nausea, vomiting, hematemesis, abdominal pain, diarrhea, constipation, hematochezia, melena : No irregular bleeding, dysuria, frequency, urgency, hesitancy, hematuria, flank pain, urinary flow changes, urinary incontinence or retention MSK: No back pain, neck pain, joint pain, myalgias Skin: No lesions, rashes Neuro: No weakness, numbness, paresthesias, LOC, dizziness, headache Psych: No anxiety/panic, depression, SI/HI, AH/VH All other systems reviewed and are negative. [facility] Past Medical History Attestation statement: The following information was validated with the patient. Source: old records reviewed and nursing notes reviewed Medical History Somatoform disorder Depression with suicidal ideation Sleep apnea Seizure RBBB Cardiac defibrillator in place Artificial cardiac pacemaker Hyperthyroidism Hyperlipidemia History of ETOH abuse Hypertension GERD (gastroesophageal reflux disease) Diabetes Developmental delay, mild Depression COPD (chronic obstructive pulmonary disease) Asthma Anxiety Surgical History History of cardiac cath Social History Social History Household Members: Other Household Members Other:: 2 roommates Housing: Apartment Housing Other:: Sober House Do you presently have visiting nurse or other home services: No Alcohol intake: never Patient Tobacco Use Status: Never used Tobacco Tobacco use type: Cigarette Smoked in Last 30 Days: No Second Hand Smoke Exposure: No Use of substances other than those prescribed or required for medical reasons: No Substance Use Type: Former Substance User, Prescription Drugs and Caffiene Advance Directives: No Advance Directives Information Provided: No Do you have a plan to hurt others: No Plan service: No Current occupational status: disabled Sexual orientation: Decline to Answer Physical Exam Vital Signs: Vital Signs: Last Vital Signs Temp 97.6 F 11/05/24 18:10 Pulse 86 11/05/24 18:10 Resp 20 11/05/24 18:10 BP 139/75 11/05/24 18:10 Pulse Ox 97 11/05/24 18:10 O2 Del Method Room Air 11/05/24 18:10 BMI result Body Mass Index 35.1 Vital signs stable Const: General: cooperative, healthy appearing, comfortable and no acute distress Orientation/consciousness: patient oriented x3 Limitations: no limitations HEENT: Head: Yes normal to inspection, Yes No palpable skull fracture present, Yes normocephalic and Yes atraumatic Eyes: General: appearance normal, both eyes and all related structures Conjunctivae: conjunctivae normal Sclerae: sclerae normal Pupils: Equal, round and reactive pupils present EOM: EOMs intact bilaterally Neck: Neck: Yes normal visual inspection, Yes full ROM, Yes no lymphadenopathy and Yes no JVD Chest: Chest palpation & inspection: normal inspection of the chest and normal palpation of entire chest wall Resp: Effort & Inspection: normal respiratory effort and able to speak in complete sentences Auscultation: clear to auscultation bilaterally Cardio: Other: + 2+ radial pulses Jugular venous distension: no JVD Rate: regular rate Rhythm: regular rhythm GI: Inspection: Yes normal to inspection Skin: General skin exam: no rashes or lesions noted Neuro: General: patient oriented x3 and gait normal Cranial nerves: Yes Equal, round and reactive pupils present Extrem: General: Yes normal to inspection Course Course Course Narrative: CBC without leukocytosis or left shift. chronic normocytic anemia, h&h stable when compared to priors. chemistry without acute electrolyte abnormality requiring intervention. chest xray without infiltrate or consolidation. Troponin flat x2. EKG showing sinus rhythm with sinus arrhythmia and occasional PVCs, rate of 77 beats per minute, known right bundle-branch block, no acute ischemic changes or ST elevations > on re-evaluation, patient reports significant improvement in pain after receiving morphine. Workup unremarkable. I do not have concern for ACS or PE (vitals stable, well appearing, no pleuritic cp). Patient may be discharged back to facility. Patient has remained stable throughout ED visit today. Discussed worrisome signs and symptoms and when to return to the ED. All questions answered at this time. Patient is agreeable with disposition and stable for discharge. Medications Administered Discontinued Medications Generic Name Dose Route Start Last Admin Trade Name Sancho PRN Reason Stop Dose Admin Morphine Sulfate 4 mg 11/05/24 15:24 11/05/24 15:49 Morphine Sulfate 4 Mg/Ml Cartridge IVPUSH 11/05/24 15:25 4 mg ONCE ONE Administration Protocol Ondansetron HCl 4 mg 11/05/24 15:24 11/05/24 15:49 Ondansetron Hcl 4 Mg/2 Ml Vial IVPUSH 11/05/24 15:25 4 mg ONCE ONE Administration Medical Decision Making Medical Decision Making [facility] Narrative: 64 year old male with pmhx significant for COPD, MDD, somatoform disorder, alcohol abuse, tetralogy of Fallot with right bundle-branch block in ICD placed in 2013, intellectual disability presents to the ED today via EMS from [facility] for evaluation of intermittent left-sided chest pain x4 days, worsening today. Differential diagnosis includes ACS, arrhythmia, costochondritis, pleuritis, msk sprain/ strain, viral syndrome, pneumonia. Lower suspicion for PE, effusion, rupture aneurysm. Plan for labs, ekg, cxr, and re-evaluation. Differential Diagnosis Differential Diagnoses: The differential diagnosis associated with the presentation includes as above. Admission/Observation not indicated. Lab Data MDM Lab Attestation statement: I reviewed the patient's lab results. as above. 11/05/24 15:16 11/05/24 15:16 Labs: Lab Results 11/05/24 11/05/24 Range/Units 15:16 17:33 WBC 5.1 (4.8-10.8) X10*3/uL RBC 3.68 L (4.60-5.80) X10*6/uL Hgb 10.3 L (14.0-18.0) g/dl Hct 30.9 L (42.0-52.0) % MCV 84.0 (80.0-98.0) fL MCH 28.0 (27.0-33.0) pg MCHC 33.3 (31.0-36.0) g/dl RDW 13.4 (11.0-16.0) % Plt Count 92 L (160-400) X10*3/uL MPV 11.8 (9.4-12.4) fL Immature Gran % (Auto) 1.0 H (0.0-0.4) % Neut % (Auto) 65.4 (45-73) % Lymph % (Auto) 17.6 L (20-40) % [place] % (Auto) 9.3 (2-11) % Eos % (Auto) 6.1 H (0-4) % Baso % (Auto) 0.6 (0-2) % Lymph # (Auto) 0.9 L (1.2-4.9) X10*3/uL [place] # (Auto) 0.5 (0.1-1.2) X10*3/uL Eos # (Auto) 0.3 (0.0-0.4) X10*3/uL Baso # (Auto) 0.0 (0.0-0.2) X10*3/uL Abs Immat Gran (auto) 0.05 H (0.00-0.03) X10*3/uL Absolute Neuts (auto) 3.3 (2.0-8.3) x10*3/uL Absolute Nucleated RBC 0.000 (0.0-0.012) X10*3/uL Nucleated RBC % (auto) 0.0 (0.0-0.2) /100WBC PT 13.6 H (10.9-12.4) SEC INR 1.2 H (0.9-1.1) Sodium 144 (135-145) mmol/L Potassium 4.2 (3.3-5.1) mmol/L Chloride 107 (96-108) mmol/L Carbon Dioxide 30 H (22-29) mmol/L Anion Gap 11 L (12-20) BUN 13 (9-16) mg/dL Creatinine 1.29 (0.5-1.4) mg/dL Estim Creat Clear Calc 71.8 Estimated GFR 56 Random Glucose 121 H (60-115) mg/dL Calcium 8.3 L D (8.4-10.2) mg/dL Magnesium 1.8 (1.6-2.6) mg/dL Total Bilirubin 0.4 (0.0-1.0) mg/dL AST 18 (5-37) U/L ALT 17 (0-40) U/L Alkaline Phosphatase 69 (39-117) U/L Troponin I High Sens < 2.7 < 2.7 (<3.5-35.0) ng/L Total Protein 6.4 L (6.5-8.0) g/dL Albumin 3.9 (3.5-5.0) g/dL Independent Interpretation I performed an independent interpretation of an: EKG and Plain X-Ray Interpretation: EKG showing sinus rhythm with sinus arrhythmia and occasional PVCs, rate of 77 beats per minute, known right bundle-branch block, no acute ischemic changes or ST elevations chest xr without infiltrate or consolidation Radiology Impression Discussion of test interpretation with radiology: I have reviewed the radiologist's reading. Radiologist Impression: Date of Service: 11/05/24 Procedure(s): XR chest 2V Accession Number(s): [id number] cc: [facility]; Debo Negron~ EXAMINATION: XR CHEST 2 VIEWS HISTORY: L sided chest pain COMPARISON: Comparison is made with the prior examination dated 10/21/2024. FINDINGS: PA and lateral views of the chest are submitted. A left subclavian pacemaker is unchanged in position. The lungs are expanded and clear. There is no pleural effusion, pneumothorax, or pulmonary vascular congestion. The heart is normal in size. There is degenerative disc disease of the spine. XR/XR chest 2V IMPRESSION: No acute cardiopulmonary abnormality. Electronically signed by: Rocael Golden MD 11/05/2024 03:43 PM EDT RP Independent Historian Clinical information obtained from an independent historian. History obtained from or confirmed by: EMS External Record Review External record reviewed: Inpatient record and Office record Prescription Management I considered prescription management with: Pain Medication Social Determinants Patient?s care significantly limited by Social Determinants of Health including: Other Social Determinant of Health Critical Care Time Critical Care Time Critical Care Time: No Discharge Plan Discharge Clinical Impression: Atypical chest pain Patient Disposition: Home, Self-Care Instructions: Chest Pain (ED) Additional Instructions: You were evaluated in the Emergency Department today for chest pain. 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 If you do not have one, a referral has been provided. Please call them to make an appointment, they will not call you. Return to the Emergency Department if you experience worsening or uncontrolled chest pain, shortness of breath, light headedness, feeling faint, nausea, vomiting, or any other concerning symptoms. Prescriptions: No Action isosorbide mononitrate 30 mg Tablet Extended Release 24 Hr 30 mg PO DAILY Qty: 0 0RF Protocol: Hold for SBP< HOLD for SBP < : 90 sotalol 80 mg tablet 80 mg PO BID hydroxyzine pamoate 50 mg capsule 50 mg PO BID tamsulosin 0.4 mg capsule 0.4 mg PO BEDTIME nitroglycerin 0.4 mg tablet, sublingual 0.4 mg sublingual Q5M PRN (Reason: Chest Pain) albuterol sulfate 90 mcg/actuation HFA aerosol inhaler 2 puff inhalation Q4H PRN (Reason: Shortness Of Breath) ezetimibe 10 mg Tablet 10 mg PO DAILY 7 Days Qty: 7 0RF risperidone 1 mg tablet 1.5 mg PO BEDTIME Xarelto 20 mg tablet 20 mg PO DAILY@1800 levothyroxine 75 mcg tablet 75 mcg PO DAILY@0600 acetaminophen 325 mg tablet 650 mg PO Q4H PRN (Reason: Fever Or Pain) metformin 500 mg tablet 500 mg PO DAILY trazodone 50 mg tablet 25 mg PO BEDTIME ondansetron HCl 4 mg Tablet 4 mg PO Q4H PRN (Reason: nausea and vomitting) sumatriptan succinate 50 mg tablet 50 mg PO BID PRN (Reason: migraines) Rx Instructions: wait 2 hours between doses calcium carbonate [Tums] 300 mg (750 mg) Tablet,Chewable 300 mg PO Q4H PRN (Reason: Dyspepsia) aspirin 81 mg tablet,delayed release (DR/EC) 81 mg PO DAILY tramadol 50 mg tablet 50 mg PO Q6H PRN (Reason: migraines) quetiapine 100 mg tablet 100 mg PO BEDTIME magnesium hydroxide 400 mg/5 mL Suspension 30 ml PO DAILY PRN (Reason: Constipation) gabapentin 300 mg capsule 300 mg PO BID bisacodyl 5 mg Tablet,Delayed Release (Dr/Ec) 10 mg PO BEDTIME PRN (Reason: Constipation) alum-mag hydroxide-simeth [Mylanta Maximum Strength] 400-400-40 mg/5 mL Suspension 10 ml PO Q4H PRN (Reason: Constipation) escitalopram oxalate 20 mg Tablet 20 mg PO DAILY cyclobenzaprine 5 mg tablet 5 mg PO TID PRN (Reason: muscle spasms) melatonin 10 mg Tablet 10 mg PO BEDTIME PRN (Reason: Insomnia) prednisone 20 mg tablet 20 mg PO DAILY Qty: 5 0RF oxycodone 5 mg tablet 5 mg PO BID PRN (Reason: pain) Qty: 4 0RF Rx Instructions: Partial Fill upon patient request. cyclobenzaprine 10 mg tablet 10 mg PO TID PRN (Reason: muscle spasm) Qty: 10 0RF meclizine 25 mg tablet 25 mg PO DAILY PRN (Reason: dizziness) Qty: 14 0RF lidocaine 5 % adhesive patch,medicated 1 patch topical DAILY PRN (Reason: pain) Qty: 15 0RF Rx Instructions: leave on most painful area for up to 12 hrs acetaminophen [Tylenol] 325 mg capsule 325 mg PO Q4H PRN (Reason: pain) Qty: 30 0RF trazodone 150 mg tablet 150 mg PO BEDTIME hydroxyzine HCl 50 mg tablet 50 mg PO BEDTIME (DME) miscellaneous medical supply Misc See Rx Instructions .Route Qty: 1 0RF Rx Instructions: Quad cane use As directed oxycodone-acetaminophen 5-325 mg tablet 1 tab PO Q8H PRN (Reason: pain (scale score 7-10)) 7 Days Qty: 20 0RF Rx Instructions: Partial Fill upon patient request. naloxone [Narcan] 4 mg/actuation spray,non-aerosol 4 mg intranasal Q2M PRN (Reason: opioid overdose) Qty: 2 0RF Rx Instructions: spray 1 dose into ONE nostril; alternate nostrils w each dose until help arrives Referrals: [facility] [Primary Care Provider, Medical] Print Language: Ukrainian
[2024-11-05 15:20] LABS: MANUAL DIFF FLAG NO
[2024-11-05 15:26] LABS: Hematocrit 30.9 % (42.0-52.0); Hemoglobin 10.3 g/dl (14.0-18.0); Imm Gran Abs Auto 0.05 X10*3/uL (0.00-0.03); Imm Gran Pct Auto 1.0 % (0.0-0.4); Lymphocytes Absolute Auto 0.9 X10*3/uL (1.2-4.9); Mean Corpuscular HGB Conc 33.3 g/dl (31.0-36.0); Mean Corpuscular Hemoglobin 28.0 pg (27.0-33.0); Mean Corpuscular Volume 84.0 fL (80.0-98.0); NRBC Abs Auto 0.000 X10*3/uL (0.0-0.012); NRBC Pct Auto 0.0 /100WBC (0.0-0.2); Red Blood Count 3.68 X10*6/uL (4.60-5.80); White Blood Count 5.1 X10*3/uL (4.8-10.8)
[2024-11-05 15:30] LABS: INTERNATIONAL NORM RATIO 1.2 (0.9-1.1); Prothrombin Time 13.6 SEC (10.9-12.4)
[2024-11-05 15:37] LABS: Alanine Aminotransferase 17 U/L (0-40); Albumin Level 3.9 g/dL (3.5-5.0); Alkaline Phosphatase 69 U/L (39-117); Anion Gap 11 (12-20); Aspartate Amino Transferase 18 U/L (5-37); Blood Urea Nitrogen 13 mg/dL (9-16); Calcium 8.3 mg/dL (8.4-10.2); Carbon Dioxide 30 mmol/L (22-29); Chloride 107 mmol/L (96-108); Creatinine Clr Calc Pharmacy 71.8; Estimated Glomerular Filt Rate 56; Magnesium 1.8 mg/dL (1.6-2.6); Potassium 4.2 mmol/L (3.3-5.1); Sodium 144 mmol/L (135-145); Total Protein 6.4 g/dL (6.5-8.0)
--- OUTSIDE RECORDS SUMMARY | 2024-11-05 15:42 | XMS_ITS | Encounter Summary ---
Author Organization [facility] Address [address] [place] [address] Care Team Providers Care Protection Consultant Name Role Phone Patient, Has No Pcp Or Ref Primary Care Provider Unavailable Encounter Details Date Type Department Care Team (Late st Contact Info) Description 10/05/2022 Telephone [facility] Nuclear Medicine [address] [place] [id number] [address] Rdoriguez, RN Social History Tobacco Use Types Packs/Day [...] documented as of this encounter Care Teams Protection Consultant Relationship Specialty Start Date End Date Patient, Has No Pcp Or Ref DO NOT EDIT THIS RECORD VIA PROVIDER ON THE FLY PCP - General Pi/Senior Research Associate 07/11/24 documented as of this encounter
--- OUTSIDE RECORDS SUMMARY | 2024-11-05 15:42 | XMS_ITS | Encounter Summary ---
Author Organization [employer] Address [address] [place] [address] [place] [address] Care Team Providers Care Finance Lecturer Name Role Phone Lauren Whittaker MD Primary Care Pro vider Encounter Details Date Type Department Care Team ([facility] st Contact Info) Description 01/30/2024 Telephone [facility] MEDICINE [address] [place], [place] [id number] Ioana Antonio, PharmD [address] [place] [address] Social History Tobacco Use Types Packs/Day Years [...] 12:56 PM EST Tc from Pat with [facility] cardiology . States is returning a missed call. Best contact # [phone]. * Telephone Encounter - Ioana Antonio PharmD - 01/30/2024 3:10 PM EDT Please assist in obtaining discharge paperwork from [facility] Patient was discharged on 01/27/2024, and [facility] recent discharge (exact date unknown). Thank you documented in this encounter Plan of Treatment Not on file documented as of this encounter Visit Diagnoses Not on filedocumented in this encounter Additional Health Concerns Assessment Noted Time PHQ-9 Depression Total Score: 0 11/15/19 9:31 AM EDT documented as of this encounter Care Teams Finance Lecturer Relationship Specialty Start Date End Date Lauren Whittaker MD [address] [place] [address] PCP - General Internal Medicine 11/15/23 [facility] 03/08/24 documented as of this encounter
--- OUTSIDE RECORDS SUMMARY | 2024-11-05 15:42 | XMS_ITS | Clinical Summary ---
Author Organization [facility] Address [facility] [place] [address] Care Team Providers Care Cutting Machine Fixer Name Role Phone Unknown Primary Care Provider [...] series) 12/02/2024 Medical Devices Implanted Type Area Attorney General Device Identifier Shelf Expiration Date Model / Serial / Lot Defibrillato r-06/12/2008 Implanted:Qt y: 1 on 06/12/2008 Defibrillator Left: Chest [facility] [employer] - [id number] [facility] 2207-[address] AVILA / [id number] / Lead- 7 Implanted:Qt y: 1 on 05/05/[address] [employer] - [id number] [facility] 1688TC TENDRIL SDX / [id number] / Description:RA LEAD Lead-06/13/19 09 Implanted:Qt y: 1 on 06/12/[address] [employer] - [id number] [facility] 7121 EULALIO / [id number] / Description:RV LEAD Care Teams Cutting Machine Fixer Relationship Specialty Start Date End Date Unknown None PCP - General 03/20/17
--- OUTSIDE RECORDS SUMMARY | 2024-11-05 15:42 | XMS_ITS | Clinical Summary ---
Author Organization [facility] Address [address] [place] [id number] Care Team Providers Care Tool Crib Supervisor Name Role Phone Lilliam Amaridavin ROSS Primary Care Provider [phone] Allergies Active Allergy Reactions Criticality Noted Date [...] this topic Medical Devices Implanted Type Area Assistant Director Device Identifier Shelf Expiration Date Model / Serial / Lot Icd ICD [facility] 2411-36c Vinicio Nelson [id number] Implanted:05/04 (Quantity not on file) ICD [employer] 2411-36C VINICIO NELSON / [id number] / Pacemaker Pacemaker Procedures Procedure Name Priority Date/Time Associated Diagnosis Comments HEMOGLOBIN A1C WITH ESTIMATED AVERAGE GLUCOSE STAT 01/22/2023 7:00 AM EDT from Last 3 Months or Most Recently Relevant to Health Maintenance Results * (ABNORMAL) Hemoglobin A1c with Estimated Average Glucose (01/22/2023 7:00 AM EDT) Hemoglobin A1C 7.1(H) <5.7 % 01/22/2023 8:43 AM EDT [facility] Comment: A1c% Interpretation 5.7 - 6.0 Increase risk of diabetes 6.1 - 6.4 Higher risk of diabetes > or = 6.5 Consistent with diabetes Diabetes Care, 33(Supp 1):S1-S61, 2010 Estimated Average Glucose 157 mg/dL 01/22/2023 8:43 AM EDT [facility] Blood specimen (specimen) Blood specimen / Unknown 01/22/2023 7:00 AM EDT 01/22/2023 7:33 AM EDT Christophe Bullard MD LAB BLOOD ORDERABLES Fi nal Result HOSPITAL LAB See Below [address] [address] from Last 3 Months or Most Recently Relevant to Health Maintenance Insurance [facility] MEDICARE OUT OF NETWORK [facility]IC[place] OUT OF NETWORK Advance Directives [...] 2:18 PM 06/06/2018 4:09 PM Care Teams Tool Crib Supervisor Relationship Specialty Start Date End Date Amari Vyas DO [address] [place] [id number] PCP - General Internal Medicine 01/21/23
--- OUTSIDE RECORDS SUMMARY | 2024-11-05 15:42 | XMS_ITS | Clinical Summary ---
Author Organization [address] Address [address] [place] [phone] Phone Care Team Providers [employer] Lab Technician Name Role Phone Obtain, Unable To Primary [...] adult (HC Code) 08/06/2024 Current use of assisted anticoagulation 025 Atrial fibrillation (HC Code) 08/06/2024 [...] 11/06/2015 Overview (11/06/2015): [facility] [employer] [facility] serial #[id number] Dual Chamber ICD implanted 06/12/08 Type 2 diabetes mellitus 11/06/2015 Syncope and collapse 11/04/2015 Other chest pain 11/04/2015 Right bundle branch block 11/04/2015 Resolved Problems Problem Noted Date Diagnosed Date Resolved Date Flank pain, acute 08/06/2024 08/08/2024 Encounters Date Type Department Care Team Description 08/11/2024 Patient Outreach [facility] Call Center [address] [place] [id number] Donna Linder RN Hospital Discharge Follow Up 08/08/2024 3:02 PM EDT - 08/08/2024 9:28 PM EDT Emergency [facility] Emergency Department [address] [place] [address] Coral Fofana MD Mansour, Amir J, MD Syncope, unspecified syncope type (Primary Dx) Discharge Disposition: Another Health Care Institution Not Defined Elsewhere in List 08/08/2024 Travel 08/02/2024 9:55 AM EDT - 08/08/2024 10:42 AM EDT Hospital Encounter [facility] [address] [place] [address] Octavio Boyd MD Haider, Salman, MD Victor, Wasnard, MD Iyengar, Steve Evans MD Recurrent syncope (Primary Dx); Minor head injury, initial encounter; Dual ICD (implantable cardioverter-defibr illator) in place; Hypothyroidism, unspecified type; Tetralogy of Fallot s/p repair; Syncope and collapse; Current use of intermediate project manager anticoagulation; Schizophrenia, unspecified type (HC Code) ; [...] CODE) Discharge Disposition: Home or Self Care from Last 3 Months Social History Tobacco Use Types Packs/Day Years Used Date Smoking Tobacco: Former Alcohol Use Standard Drinks/Week Comments No 0 (1 standard drink = 0.6 oz pur e alcohol) 5yrs sober [facility] Utilities Answer Date Recorded In the past 12 months has AIM, gas, oil, or water [employer] threatened to shut off services in your [...] PM EDT FENTANYL, URINE, WITH NO CONFIRMATION ([facility] ) STAT 08/08/2024 4:56 PM EDT URINE DRUG SCREEN W/ NO CONF (COUNT INCLUDES THE [facility]) STAT 08/08/2024 4:56 PM EDT URINE DRUG SCREEN W/ NO CONF (COUNT INCLUDES THE [facility]) STAT 08/08/2024 4:56 PM EDT TROPONIN T HIGH SENSITIVITY, 1 HOUR WITH REFLEX ([facility]) STAT - Timed 08/08/2024 4:40 PM EDT [...] GLUCOSE Routine 08/05/2024 5:49 PM EDT EEG ([facility], ONLY) Routine 08/05/2024 1:39 PM EDT URINALYSIS WITH CULTURE REFLEX ([facility]) Routine 08/05/2024 1:38 PM EDT UA REFLEX CULTURE Routine 08/05/2024 1:3 8 PM EDT URINALYSIS WITH CULTURE REFLEX Routine 08/05/2024 1:38 PM EDT HEMOGLOBIN A1C Add-On 08/04/2024 5:28 AM EDT CREATININE, URINE, RANDOM Urgent 11/05/2015 7:03 PM EDT from Last 3 Months or Most Recently Relevant to Health Maintenance Results * CT Head Cervical Spine wo IV Contrast (08/08/2024 8:37 PM EDT) Anatomical Region Laterality Modality Head, C-spine, Spine, [...] additional clinical or imaging evaluation is recommended. [facility] Classification: Routine. Report initiated by: Naldo Lozano MD Reported and signed by: Hema Vincent MD [facility] Narrative 08/08/2024 7:[address] HEAD CERVICAL SPINE WO IV CONTRAST ([facility]) INDICATION: fall on xarelto. COMPARISON: CT HEAD CERVICAL SPINE WO IV CONTRAST ([facility]) 2024-08-02 TECHNIQUE: CT images were [...] SPINE WO IV CONTRAST ([facility]) INDICATION: fall on xarelto. COMPARISON: CT HEAD CERVICAL SPINE WO IV CONTRAST ([facility]) 2024-08-02 TECHNIQUE: CT images were [...] concern, additionalclinical or imaging evaluation is recommended. [facility] Classification: Routine. Report initiated by: Naldo Lozano MD Reported and signed by: Hema Vincent MD [facility] us Coral Fofana MD IMG CT ORDERABLES Final Resu lt * EKG (08/08/2024 7:18 PM EDT) Only the most recent of4 resultswithin the time period is included. Heart Rate 87 bpm SRC EKG QRS Interval 180 ms SRC EKG QT Interval 424 ms SRC EKG QTC Interval 510 ms SRC EKG P [place] 61 deg SRC EKG QRS [place] 104 deg SRC EKG T Wave [place] 14 deg SRC EKG P-R Interval 248 msec SRC EKG SEVERITY Abnormal ECG severity SRC EKG Comment::Sinus rhythm:Prolon ged NV interval:Right bundle branch block:Electronically Signed On 08-08-2024 19:23:54 EDT by Coral Fofana MD 08/08/2024 7:18 PM EDT us Coral Fofana MD ECG ORDERABLES Final Result SRC EKG * CXR (08/08/2024 5:25 PM EDT) Anatomical Region Laterality Modality Chest Digital Radiogra phy 08/08/2024 5:21 PM EDT Impressions 08/08/2024 5:22 PM EDT No overt edema or focal consolidation. [facility] Classification: Routine. Reported and signed by: Kenia Davidson MD [facility] Narrative 08/08/2024 5:22 [...] IMPRESSION: No overt edema or focal consolidation. [facility] Classification: Routine. Reported and signed by: Kenia Davidson MD [facility] us Coral Fofana MD IMG DIAGNOSTIC IMAGING ORDER ADRIANNE Final Result * (ABNORMAL) Urine drug screen w/no conf (COUNT INCLUDES [facility]) (08/08/2024 4:56 PM EDT) Barbiturate Screen, Urine, No Conf. Negative Negative 08/08/2024 5:50 PM EDT [facility] Benzodiazepines Screen, Urine, No Conf. Negative Negative 08/08/2024 5:50 PM EDT [facility] Cannabinoids Screen, Urine, No Conf. Negative Negative 08/08/2024 5:50 PM EDT [facility] Cocaine Screen, Urine, No Conf. Negative Negative 08/08/2024 5:50 PM EDT [facility] Methadone Metabolite Screen, Urine, No Conf. Negative Negative 08/08/2024 5:50 PM EDT [facility] Opiates Screen, Urine, No Conf. Negative Negative 08/08/2024 5:50 PM EDT [facility] Oxycodone Screen, Urine, No Conf. Positive(A) Negative 08/08/2024 5:50 PM EDT [facility] Phencyclidine (PCP) Screen, Urine, No Conf. Negative Negative 08/08/2024 5:50 PM EDT [facility] Amphetamine Screen, Urine, No Conf. Negative Negative 08/08/2024 5:50 PM EDT [facility] Drugs Of Abuse Note See Comment 08/08/2024 5:50 PM EDT [facility] Comment: Drugs of Abuse Note: [...] Oxycodone 100 Phencyclidine (PCP) 25 * At [facility], , and [facility] the screening cutoff for Methadone is 300 ng/mL. Urine Collection / Unknown 08/08/2024 4:56 PM EDT 08/08/2024 5:16 PM EDT us Coral Fofana MD URINE ORDERABLES Final Resul t [facility] [address] [place] [address] * Fentanyl, urine, with no confirmation ([facility]) (08/08/2024 4:56 PM EDT) Fentanyl Screen, Urine Negative Negative 08/08/2024 5:50 PM EDT [facility] Comment: This immunoassay is reported as negative if the reactivity is below that of a 5 ng/mL calibrator. Effective 09/20/22, the Clinical Chemistry Laboratory at [facility] is running the urine fentanyl immunoassay test using [employer] recommended reagents. Drugs Of Abuse Note 08/08/2024 5:50 PM EDT [facility] Comment: Formal chain of custody documentation not maintained on clinical specimens. Results are intended for medical management purposes only. Urine Collection / Unknown 08/08/2024 4:56 PM EDT 08/08/2024 5:16 PM EDT Coral Fofana MD URINE ORDERABLES Final Resul t Performing Organization Address City/[facility]/ZIP Co de Phone Number [facility] [address] [place] [address], [facility] [phone] * Troponin T High Sensitivity, 1 Hour With Reflex ([facility] Y) (08/08/2024 4:40 PM EDT) [facility] High Sensitivity Troponin T 10 See Comment ng/L 08/08/2024 5:44 PM EDT [facility] Comment:High Sensitivity Tro ponin T levels should be interpreted in the context of the [facility] Care Signature pathway. 1 hour Delta from 0 Hour, HS-Troponin T -1 ng/L 08/08/2024 5:44 PM EDT [facility] Blood Venipuncture / Unknown 08/08/2024 4:40 PM EDT 08/08/2024 4:55 PM EDT Coral Fofana MD LAB BLOOD ORDERABLES Final R esult Performing Organization Address City/[facility]/ZIP Co de Phone Number [facility] [address] [place] [address], [facility] [phone] * Immature Platelet Fraction ([facility]) (08/08/2024 3:25 PM EDT) Only the most recent of4 resultswithin the time period is included. [facility] Immature Platelet Fraction 5.8 1.2 - 8.6 % 08/08/2024 4:51 PM EDT [facility] Comment:In a patient with th rombocytopenia, a non-elevated IPF is suggestive of a hypoproliferative marrow state. If the IPF is elevated in a thrombocytopenic patient, this is suggestive of a destructive or consumptive process. Absolute Immature Platelet Fraction 4.1 <20.0 x1000/ L 08/08/2024 4:51 PM EDT [facility] Blood Venipuncture / Unknown 08/08/2024 3:25 PM EDT 08/08/2024 3:30 PM EDT Coral Fofana MD LAB BLOOD ORDERABLES Final R esult [facility] [address] [phone] * (ABNORMAL) Basic metabolic panel (08/08/2024 3:25 PM EDT) Sodium 140 136 - 144 mmol/L 08/08/2024 3:50 PM EDT [facility] Potassium 4.7 3.3 - 5.3 mmol/L 08/08/2024 3:50 PM EDT [facility] Chloride 104 98 - 107 mmol/L 08/08/2024 3:50 PM EDT [facility] CO2 27 20 - 30 mmol/L 08/08/2024 3:50 PM EDT [facility] Anion Gap 9 7 - 17 08/08/2024 3:50 PM EDT [facility] Glucose 115(H) 70 - 100 mg/dL 08/08/2024 3:50 PM EDT [facility] BUN 21 8 - 23 mg/dL 08/08/2024 3:50 PM EDT [facility] Creatinine 1.60(H) 0.40 - 1.30 mg/dL 08/08/2024 3:50 PM EDT [facility] Calcium 8.4(L) 8.8 - 10.2 mg/dL 08/08/2024 3:50 PM EDT [facility] BUN/Creatinine Ratio 13.1 8.0 - 23.0 08/08/2024 3:50 PM EDT [facility] eGFR (Creatinine) 48(L) >=60 mL/min/1.73 m2 08/08/2024 3:50 PM EDT [facility] Comment: [facility] utilizes CKD-EPI Creatinine 2020 to report eGFR. Values < 60 mL/min/1.73 m2 may indicate CKD if present for more than three months AND creatinine is at steady state. The eGFR provides a rough estimate of kidney function. For further guidance, please refer to the CKD: Adult Cash Management Officer Signature pathway. Creatinine Delta 0.58(H) See Comment 08/08/2024 3:50 PM EDT [facility] Comment: Delta creatinine is the [...] MD LAB BLOOD ORDERABLES Final R esult [facility] [address] [place] [address], [facility] [phone] * Troponin T High Sensitivity, Emergency; 0 hour baseline AND 1 hour with reflex (3 hour) (53:25 PM EDT) [facility] High Sensitivity Troponin T 11 See Comment ng/L 08/08/2024 3:52 PM EDT [facility] Comment:High Sensitivity Tro ponin T levels should be interpreted in the context of the [facility] Care Signature pathway. Blood Venipuncture / Unknown 08/08/2024 3:25 PM EDT 08/08/2024 3:30 PM EDT us Coral Fofana MD LAB BLOOD ORDERABLES Final R esult [facility] [address] [place] [address], [facility] [phone] * (ABNORMAL) Manual Differential (08/08/2024 3:25 PM EDT) Neutrophils 74.3(H) 39.0 - 72.0 % 08/08/2024 4:51 PM EDT [facility] Lymphocytes 15.4(L) 17.0 - 50.0 % 08/08/2024 4:51 PM EDT [facility] Monocytes 4.3 4.0 - 12.0 % 08/08/2024 4:51 PM EDT [facility] Eosinophils 6.0(H) 0.0 - 5.0 % 08/08/2024 4:51 PM EDT [facility] Basophil 0.0 0.0 - 1.4 % 08/08/2024 4:51 PM EDT [facility] Neutrophils Absolute 4.24 2.00 - 7.60 x 1000/ L 08/08/2024 4:51 PM EDT [facility] Lymphocyte Absolute 0.88 0.60 - 3.70 x 1000/ L 08/08/2024 4:51 PM EDT [facility] Monocyte Absolute Count 0.25 0.00 - 1.00 x 1000/ L 08/08/2024 4:51 PM EDT [facility] Eosinophil Absolute Count 0.34 0.00 - 1.00 x 1000/ L 08/08/2024 4:51 PM EDT [facility] Basophil Absolute Count 0.00 0.00 - 1.00 x 1000/ L 08/08/2024 4:51 PM EDT [facility] RBC Morphology Reviewed 08/08/2024 4:51 PM EDT [facility] Ovalocytes 1+(A) None 08/08/2024 4:51 PM EDT [facility] Blood Venipuncture / Unknown 08/08/2024 3:25 PM EDT 08/08/2024 3:30 PM EDT Coral Fofana MD LAB BLOOD ORDERABLES Final R esult [facility] [address] [place] [address] * (ABNORMAL) CBC auto differential (08/08/2024 3:25 PM EDT) Only the most recent of4 resultswithin the time period is included. WBC 5.7 4.0 - 11.0 x1000/ L 08/08/2024 4:51 PM EDT [facility] RBC 4.05 4.00 - 6.00 M/ L 08/08/2024 4:51 PM EDT [facility] Hemoglobin 11.4(L) 13.2 - 17.1 g/dL 08/08/2024 4:51 PM EDT [facility] Hematocrit 35.90(L) 38.50 - 50.00 % 08/08/2024 4:51 PM EDT [facility] MCV 88.6 80.0 - 100.0 fL 08/08/2024 4:51 PM EDT [facility] MCH 28.1 27.0 - 33.0 pg 08/08/2024 4:51 PM EDT [facility] MCHC 31.8 31.0 - 36.0 g/dL 08/08/2024 4:51 PM EDT [facility] RDW-CV 14.2 11.0 - 15.0 % 08/08/2024 4:51 PM EDT [facility] Platelets 76(L) 150 - 420 x1000/ L 08/08/2024 4:51 PM EDT [facility] Comment:Platelet count verif ied by smear. MPV 12.1(H) 8.0 - 12.0 fL 08/08/2024 4:51 PM EDT [facility] nRBC 0.0 0.0 - 1.0 % 08/08/2024 4:51 PM EDT [facility] Absolute nRBC 0.00 0.00 - 1.00 x 1000/ L 08/08/2024 4:51 PM EDT [facility] Blood Venipuncture / Unknown 08/08/2024 3:25 PM EDT 08/08/2024 3:30 PM EDT Coral Fofana MD LAB BLOOD ORDERABLES Final R esult Performing Organization Address City/[facility]/ZIP Co de Phone Number [facility] [address] [place] [address] * Magnesium (08/08/2024 3:25 PM EDT) Magnesium 2.1 1.7 - 2.4 mg/dL 08/08/2024 3:50 PM EDT [facility] Blood Venipuncture / Unknown 08/08/2024 3:25 PM EDT 08/08/2024 3:30 PM EDT Coral Fofana MD LAB BLOOD ORDERABLES Final R esult Performing Organization Address City/[facility]/ZIP Co de Phone Number [facility] [address] [place] [address] * (ABNORMAL) Comprehensive metabolic panel (08/08/2024 5:18 AM EDT) Only the most recent of3 resultswithin the time period is included. Sodium 139 136 - 144 mmol/L 08/08/2024 5:50 AM EDT [facility] Potassium 4.2 3.3 - 5.3 mmol/L 08/08/2024 5:50 AM EDT [facility] Chloride 105 98 - 107 mmol/L 08/08/2024 5:50 AM EDT [facility] CO2 25 20 - 30 mmol/L [...] g/dL). Total Bilirubin 0.2 <=1.2 mg/dL 08/09/19 5:50 AM [facility] Alkaline [...] 1.5 1.0 - 2.2 08/08/2024 5:50 AM T [facility] AST/ALT Ratio 1.1 Reference Range Not Established 08/08/2024 5:50 AM T [facility] eGFR (Creatinine) >60 >=60 mL/min/1.73m2 08/08/2024 5:50 AM T [facility] Comment: [facility] utilizes CKD-EPI Creatinine 2020 to report eGFR. Values < 60 mL/min/1.73 m2 may indicate CKD if present for more than three months AND creatinine is at steady state. The eGFR provides a rough estimate of kidney function. For further guidance, please refer to the CKD: Adult Cash Management Officer Signature pathway. Creatinine Delta -0.14 See Comment 025 5:50 AM T [facility] Comment: Delta creatinine is the difference [...] MD LAB BLOOD ORDERABLES [place] [address], [facility] [phone] * TSH w/reflex to FT4 (08/07/2024 6:04 AM EDT) Thyroid Stimulating Hormone 2.910 See Comment IU/mL 08/07/2024 7:02 AM EDT [facility] Comment: Male & Non- Females: 0.270-4.200 IU/mL 1st Trimester: 0.110-3.480 IU/mL 2nd Trimester: 0.320-3.850 IU/mL Blood ARM NEC / Unknown Venipuncture / Unknown 08/07/2024 6:04 AM EDT 08/07/2024 6:17 AM EDT us Courtney Combs MD LAB BLOOD ORDERABLES Final Res ult Performing Organization Address [facility]/ZIP Co de Phone Number [address] [phone] * Vitamin B12 (08/07/2024 6:04 AM EDT) [facility] Vitamin B12 358 232 - 1,245 pg/mL 08/07/2024 7:02 AM EDT [facility] Blood ARM NEC / Unknown Venipuncture / Unknown 08/07/2024 6:04 AM EDT 08/07/2024 6:17 AM EDT us Courtney Combs MD LAB BLOOD ORDERABLES Final Res ult Performing Organization Address [facility] Co de Phone Number [address] [phone] * (ABNORMAL) POC Glucose (Fingerstick) (08/06/2024 8:20 PM EDT) Only the most recent of6 resultswithin the time period is included. Glucose, Meter 173(H) 70 - 100 mg/dL 08/06/2024 8:20 PM EDT [facility] Blood 08/06/2024 8:20 PM EDT 08/06/2024 8:20 PM EDT us Courtney Combs MD POINT OF CARE TEST ORDERABLES Final Result Performing Organization Address [facility] Co de Phone Number [id number] [phone] * PSA, total (screening) (08/06/2024 5:28 AM EDT) Prostate Specific Antigen, Screening 0.556 <=4.000 ng/mL 08/06/2024 10:27 AM EDT [facility] Comment: This assay is performed on the Linn platform using WHO standards. A total PSA value of 4ng/mL may not be an appropriate actionable threshold in all clinical situations. For healthcare providers, see institutional care pathway via [employer] Tools > Integrated Care Models > Abnormal Prostate http://[facility].org/uploads/abnormal%20Prostate%20stewardship%20ICM%20algorith m.pdf The results cannot be interpreted as [...] MD LAB BLOOD ORDERABLES Final Res ult [address] [phone] * EEG (08/05/2024 1:39 PM EDT) Narrative [facility] NEUR[facility] - 08/05/2024 1:39 PM EDT Maria De Jesus Cordero MD 08/06/2024 1:[address] [facility] Inpatient EEG Report Name: Joaquín Barrientos Date of : 1960 Date of Study: 08/05/2024 Start time: 10:51 Finish time: 12:06 Study Duration: >60 minutes Leads: 19 leads (no inferior temporal chains) Type: Inpatient video-EEG Location & Service: [facility] Inpatient; Internal Medicine Requesting Provider: Courtney [...] captured. Signed: Javy Edmond (R. EEG T., [facility]) Neurophysiologist EEG Impression: Normal >60-minute awake and drowsy inpatient video EEG. - No seizures or epileptiform patterns. No prior study for comparison. Interpreted by: Epilepsy Attending Physician's Attestation: I have personally reviewed the EEG, reviewed/edited the final report, and agree with the above read. Maria De Jesus Cordero MD us Patricia Alas MD NEUROLOGY ORDERABLES Final Resu lt [facility] [address] [place] [id number] * Urinalysis with culture reflex ( [facility]) (08/05/2024 1:38 PM EDT) Clarity, UA Clear Clear 08/05/2024 2:32 PM EDT [facility] Color, UA Yellow Yellow, Colorless 08/05/2024 2:32 PM EDT [facility] Specific Mark, UA 1.015 1.005 - 1.030 08/05/2024 2:32 PM EDT [facility] pH, UA 7.0 5.5 - 7.5 08/05/2024 2:32 PM EDT [facility] Protein, UA Negative Negative, Trace 08/05/2024 2:32 PM EDT [facility] Glucose, UA Negative Negative 08/05/2024 2:32 PM EDT [facility] Ketones, UA Negative Negative 08/05/2024 2:32 PM EDT [facility] Blood, UA Negative Negative 08/05/2024 2:32 PM EDT [facility] Bilirubin, UA Negative Negative 08/05/2024 2:32 PM EDT [facility] Leukocytes, UA Negative Negative 08/05/2024 2:32 PM EDT [facility] Nitrite, UA Negative Negative 08/05/2024 2:32 PM EDT [facility] Urobilinogen, UA <=2.0 <=2.0 mg/dL 08/05/2024 2:32 PM EDT [facility] Warner Top Tube Received ? Yes 08/05/2024 2:32 PM EDT [facility] Urine Collection / Unknown 08/05/2024 1:38 PM EDT 08/05/2024 1:41 PM EDT us Courtney Combs MD URINE ORDERABLES Final Result Performing Organization Address City/[facility]/ZIP Co de Phone Number [address] [phone] * UA reflex to culture (08/05/2024 1:38 PM EDT) Reflex Urine Culture See Comment 08/05/2024 7:00 PM EDT [facility] Urine Collection / Unknown 08/05/2024 1:38 PM EDT 08/05/2024 1:41 PM EDT Narrative [facility] - 08/05/2024 7:00 PM EDT Urine culture will be reflexed if indicated by urinalysis results. Please check microbiology results for urine culture. us Courtney Combs MD URINE ORDERABLES Final Result [facility] [address] [place] [id number], [facility] [phone] [phone] * (ABNORMAL) Hemoglobin A1c (08/04/2024 5:28 AM EDT) Hemoglobin A1c 6.5(H) 4.0 - 5.6 % 08/05/2024 5:52 PM EDT [facility] Comment: Hemoglobin A1c values of 5.7-6.4 [...] mg/dL 140 mg/dL 08/05/2024 5:52 PM EDT [facility] Comment: Estimated average glucose (eAG) is a calculated value designed to estimate the expected average blood glucose level throughout the day from a single measurement of glycated hemoglobin A1C (HbA1c) and follows the calculation proposed by the [place] Diabetes Association (Diabetes Care 31: 1-6, 2008). It may have less accuracy in children, women and patients with certain erythrocyte disorders. Blood Venipuncture / Unknown 08/04/2024 5:28 AM EDT 08/04/2024 5:35 AM EDT us Courtney Combs MD LAB BLOOD ORDERABLES Final Res ult [address] [phone] * Creatinine, urine, random (11/05/2015 7:03 PM EDT) Creatinine, Urine, Random 42 Reference Range not established mg/dL 11/05/2015 7:32 PM EDT [facility] Urine specimen (specimen) Collection / Unknown 11/05/2015 7:03 PM EDT 11/05/2015 7:11 PM EDT Narrative [facility] - 11/05/2015 7:32 PM EDT R1 Carlos Lara RADIO DISPATCHER URINE ORDERABLES Fi nal Result [facility] [address] [place] [address], [facility] [phone] from Last 3 Months or Most Recently Relevant to Health Maintenance Insurance MEDICARE MEDIC[place] [facility] [place] [facility] [place] [facility] [place] [id number] MEDICAID MEDICARE [place] [facility] [place] [id number] MEDICAID MEDICARE MANAGED MISC MEDICARE [id number] MEDICAID MEDICARE [place] [facility] [place] [id number] [place] MEDICARE [place] [facility] [place] Advance Directives * Full Code (Latest Code Status on File) Date Activated Date Inactivated Comments 08/02/2024 2:10 PM 08/08/2024 2:42 PM * Full Interventions Date Activated Date Inactivated Comments 11/04/2015 8:13 PM 11/06/2015 6:27 PM Question Answer Comments With Whom was the Code Statu s Discussed? Health Care Jawbone Breaker Specify Individuals' Names: Kinza preciado, healthcare proxy and foster lithographers printer * Full Interventions Date Activated Date Inactivated Comments 11/04/2015 6:05 PM 11/04/2015 8:09 PM Care Teams Semiconductor Lab Technician Relationship Specialty Start Date End Date Obtain, Unable To PCP - General 08/02/24
[2024-11-05 15:46] LABS: Platelet Count 92 X10*3/uL (160-400); Troponin-I High Sensitivity < 2.7 ng/L (<3.5-35.0)
--- NOTE | 2024-11-05 15:52 | PC.NURSE ---
PT request for IV in L hand. IV placed, informed patient he will need another IV if CT scan needed. Patient verbalized understanding.
--- NOTE | 2024-11-05 16:06 | MHC.EDTECH ---
300mL of pale yellow urine output into urinal
[2024-11-05 16:38] VITALS: BP 127/71; PULSE 79; RESP 17; TEMP 36.4; O2SAT 99
[2024-11-05 18:03] LABS: Troponin-I High Sensitivity < 2.7 ng/L (<3.5-35.0)
[2024-11-05 18:10] VITALS: BP 139/75; PULSE 86; RESP 20; TEMP 36.4; O2SAT 97
[2024-11-05 20:11] VITALS: BP 139/75; PULSE 86; RESP 20; TEMP 36.4; O2SAT 97
== END 2024-11-05 20:12 | disposition home or self-care (01) ==
PROVIDERS: Physician Assistant Medical; Emergency Provider Emergency Medicine
DX: R07.89 Other chest pain (principal); J44.9 Chronic obstructive pulmonary disease, unspecified; F32.9 Major depressive disorder, single episode, unspecified; F10.10 Alcohol abuse, uncomplicated; F79 Unspecified intellectual disabilities
CPT/HCPCS: 36415; 71046; 80053; 83735; 84484; 85025; 85610; 93005; 96374; 96375; 99284; 99285; J2270; J2405

== ENCOUNTER → 2024-11-05 15:01 | Outpatient (BNV) | payer OTHER, SELFPAY | PROVIDERS: Emergency Provider Emergency Medicine; Visit Provider Internal Medicine | DX: I49.3 Ventricular premature depolarization (principal); I49.9 Cardiac arrhythmia, unspecified; I45.10 Unspecified right bundle-branch block | CPT/HCPCS: 93010 ==

== ENCOUNTER → 2024-11-05 15:03 | Outpatient (BNV) | payer OTHER, SELFPAY | PROVIDERS: Emergency Provider Emergency Medicine; Visit Provider Radiology Diagnostic Radiology | DX: R07.89 Other chest pain (principal) | CPT/HCPCS: 71046 ==

== ENCOUNTER 2024-11-08 19:11 | Emergency (ER) | payer OTHER, SELFPAY ==
--- NOTE | 2024-11-08 | ECG_ITS ---
Test Reason : CP Blood Pressure : */* mmHG Vent. Rate : 86 BPM Atrial Rate : 86 BPM P-R Int : 216 ms QRS Dur : 166 ms QT Int : 444 ms P-R-T Axes : 57 99 52 degrees QTcB Int : 531 ms Sinus rhythm with 1st degree A-V block with frequent Premature ventricular complexes Right bundle branch block Abnormal ECG When compared with ECG of 05-Nov-2024 15:03, No significant change was found Referred By: Generic ED Physician Electronically Signed By: PEPE CABALLERO
[2024-11-08 19:17] VITALS: BP 108/62; BP 126/58; PULSE 81; TEMP 37; O2SAT 97; BMI 20.7
--- NOTE | 2024-11-08 19:24 | ED.CHESTPAIN ---
HPI - Chest Pain General Chief Complaint: Chest Pain Stated Complaint: chest pain Time Seen by Provider: 11/08/24 19:20 Source: patient Mode of arrival: EMS Limitations: no limitations History of Present Illness ED Provider: HPI narrative: Patient's history of tetralogy of Fallot right bundle-branch block [employer] ICD placed in 2013 comes here as having chest pain after ICD shocks patient has similar incident happened in the past with interrogation of the ICD was negative for any arrhythmias-shock were few months ago apparently today patient was resting and noticed a shock at 18:30 since then complaining of pain in the chest going to the shoulder Related Data Home Medications ?Medication ?Instructions ?Recorded ?Confirmed albuterol sulfate 90 mcg/actuation 2 puff inhalation Q4H PRN 08/19/22 01/01/23 aerosol inhaler Shortness Of Breath hydroxyzine pamoate 50 mg capsule 50 mg PO BID Anxiety / Nausea 08/19/22 01/01/23 nitroglycerin 0.4 mg sublingual 0.4 mg sublingual Q5M PRN Chest 08/19/22 01/01/23 tablet Pain sotalol 80 mg tablet 80 mg PO BID 08/19/22 01/01/23 tamsulosin 0.4 mg capsule 0.4 mg PO BEDTIME 08/19/22 01/01/23 levothyroxine 75 mcg tablet 75 mcg PO DAILY@0600 09/08/22 01/01/23 risperidone 1 mg tablet 1.5 mg PO BEDTIME 09/08/22 01/01/23 rivaroxaban 20 mg tablet (Xarelto) 20 mg PO DAILY@1800 09/08/22 01/01/23 acetaminophen 325 mg tablet 650 mg PO Q4H PRN Fever Or Pain 01/01/23 01/01/23 aluminum-mag hydroxide-simethicone 10 ml PO Q4H PRN Constipation 01/01/23 01/01/23 400 mg-400 mg-40 mg/5 mL oral susp (Mylanta Maximum Strength) aspirin 81 mg tablet,delayed 81 mg PO DAILY 01/01/23 01/01/23 release bisacodyl 5 mg tablet,delayed 10 mg PO BEDTIME PRN Constipation 01/01/23 01/01/23 release calcium carbonate (Tums) 300 mg PO Q4H PRN Dyspepsia 01/01/23 01/01/23 cyclobenzaprine 5 mg tablet 5 mg PO TID PRN muscle spasms 01/01/23 01/01/23 escitalopram oxalate 20 mg tablet 20 mg PO DAILY 01/01/23 01/01/23 gabapentin 300 mg capsule 300 mg PO BID 01/01/23 01/01/23 magnesium hydroxide 400 mg/5 mL 30 ml PO DAILY PRN Constipation 01/01/23 01/01/23 oral suspension melatonin 10 mg tablet 10 mg PO BEDTIME PRN Insomnia 01/01/23 01/01/23 metformin 500 mg tablet 500 mg PO DAILY 01/01/23 01/01/23 ondansetron HCl 4 mg tablet 4 mg PO Q4H PRN nausea and 01/01/23 01/01/23 vomitting quetiapine 100 mg tablet 100 mg PO BEDTIME 01/01/23 01/01/23 sumatriptan succinate 50 mg tablet 50 mg PO BID PRN migraines 01/01/23 01/01/23 tramadol 50 mg tablet 50 mg PO Q6H PRN migraines 01/01/23 01/01/23 trazodone 50 mg tablet 25 mg PO BEDTIME 01/01/23 01/01/23 hydroxyzine HCl 50 mg tablet 50 mg PO BEDTIME 12/26/23 trazodone 150 mg tablet 150 mg PO BEDTIME 12/26/23 Previous Rx's ?Medication ?Instructions ?Recorded isosorbide mononitrate 30 mg 30 mg PO DAILY #0 tabs 09/22/21 tablet,extended release 24 hr ezetimibe 10 mg tablet 10 mg PO DAILY 7 days #7 tabs 08/24/22 oxycodone 5 mg tablet 5 mg PO BID PRN pain #4 tabs 01/01/23 prednisone 20 mg tablet 20 mg PO DAILY #5 tabs 01/01/23 cyclobenzaprine 10 mg tablet 10 mg PO TID PRN muscle spasm #10 08/31/23 tabs acetaminophen 325 mg capsule 325 mg PO Q4H PRN pain #30 caps 09/30/23 (Tylenol) lidocaine 5 % topical patch 1 patch topical DAILY PRN pain #15 09/30/23 ea meclizine 25 mg tablet 25 mg PO DAILY PRN dizziness #14 09/30/23 tabs miscellaneous medical supply #1 ea 12/26/23 naloxone 4 mg/actuation nasal 4 mg intranasal Q2M PRN opioid 12/26/23 spray (Narcan) overdose #2 ea oxycodone-acetaminophen 5 mg-325 1 tab PO Q8H PRN pain (scale score 12/26/23 mg tablet 7-10) 7 days #20 tabs Allergies Allergy/AdvReac Type Severity Reaction Status Date / Time aripiprazole (From Abilify) Allergy Severe Rash Verified 11/08/24 19:19 peas Allergy Severe HIVES Verified 11/08/24 19:19 atorvastatin (From Lipitor) Allergy Intermediate Hives Verified 11/08/24 19:19 levetiracetam Allergy Itching Verified 11/08/24 19:19 bee pollen (bee stings) AdvReac Severe Anaphylaxis Verified 11/08/24 19:19 Review of Systems Review of Systems: Yes all other systems are reviewed and are negative PMFSH Past Medical History Medical History Somatoform disorder Depression with suicidal ideation Sleep apnea Seizure RBBB Cardiac defibrillator in place Artificial cardiac pacemaker Hyperthyroidism Hyperlipidemia History of ETOH abuse Hypertension GERD (gastroesophageal reflux disease) Diabetes Developmental delay, mild Depression COPD (chronic obstructive pulmonary disease) Asthma Anxiety Surgical History History of cardiac cath Social History Social History Household Members: Other Household Members Other:: 2 roommates Housing: Apartment Housing Other:: Sober House Do you presently have visiting nurse or other home services: No Alcohol intake: never Patient Tobacco Use Status: Never used Tobacco Tobacco use type: Cigarette Smoked in Last 30 Days: No Second Hand Smoke Exposure: No Use of substances other than those prescribed or required for medical reasons: No Substance Use Type: Former Substance User, Prescription Drugs and Caffiene Advance Directives: No Advance Directives Information Provided: No service: No Current occupational status: disabled Sexual orientation: Decline to Answer Physical Exam Vital Signs: Vital Signs: Last Vital Signs Temp 97.6 F 11/08/24 22:35 Pulse 95 11/08/24 22:35 Resp 16 11/08/24 22:35 BP 119/73 11/08/24 22:35 Pulse Ox 97 11/08/24 22:35 O2 Del Method Room Air 11/08/24 22:35 BMI result Body Mass Index 20.7 Appearance: Alert. Oriented X3. No acute distress. Eyes: PERRLA, No Nystagmus ENT: Pharynx normal. Oral Mucosa moist Neck: Normal inspection. Neck supple. CVS: Normal heart rate and rhythm. Pulses normal. Respiratory: No respiratory distress. Equal air entry bilateral, no wheezing/rales/rhonchi left chest wall tenderness++ Abdomen: Soft and nontender. Bowel sounds are present, no mass palpable, no CVA tenderness Skin: Skin warm and dry. Normal skin color. Normal skin turgor. Extremities: No lower extremity edema. No calf tenderness Neuro: Oriented X 3. No motor deficit. No sensory deficit.No cerebellar signs , cranial nerves II-XII intact Medications Administered Discontinued Medications Generic Name Dose Route Start Last Admin Trade Name Freq PRN Reason Stop Dose Admin Ondansetron HCl 4 mg 11/08/24 20:21 11/08/24 20:26 Ondansetron Odt 4 Mg Tab.Rapdis TRANSLINGU 11/08/24 20:22 4 mg ONCE ONE Administration Oxycodone HCl 5 mg 11/08/24 20:16 11/08/24 20:26 Oxycodone Hcl Immed Release 5 Mg Tablet PO 11/08/24 20:17 5 mg ONCE ONE Administration Medical Decision Making Medical Decision Making [facility] Narrative: Patient has frequent shocks from AICD with interrogation negative likely phantom pain AICD was interrogated pending results AICD interrogation revealed no episode of any arrhythmia no shocks will discharge patient home likely patient has a phantom pain Lab Data [facility] Lab Attestation statement: I reviewed the patient's lab results. 11/08/24 19:39 11/08/24 19:39 Labs: Lab Results 11/08/24 Range/Units 19:39 WBC 5.8 (4.8-10.8) X10*3/uL RBC 3.65 L (4.60-5.80) X10*6/uL Hgb 10.3 L (14.0-18.0) g/dl Hct 30.3 L (42.0-52.0) % MCV 83.0 (80.0-98.0) fL MCH 28.2 (27.0-33.0) pg MCHC 34.0 (31.0-36.0) g/dl RDW 13.4 (11.0-16.0) % Plt Count 74 L (160-400) X10*3/uL MPV 10.9 (9.4-12.4) fL Immature Gran % (Auto) 1.2 H (0.0-0.4) % Neut % (Auto) 59.8 (45-73) % Lymph % (Auto) 21.6 (20-40) % Crenshaw % (Auto) 10.1 (2-11) % Eos % (Auto) 6.8 H (0-4) % Baso % (Auto) 0.5 (0-2) % Lymph # (Auto) 1.2 (1.2-4.9) X10*3/uL Crenshaw # (Auto) 0.6 (0.1-1.2) X10*3/uL Eos # (Auto) 0.4 (0.0-0.4) X10*3/uL Baso # (Auto) 0.0 (0.0-0.2) X10*3/uL Abs Immat Gran (auto) 0.07 H (0.00-0.03) X10*3/uL Absolute Neuts (auto) 3.4 (2.0-8.3) x10*3/uL Absolute Nucleated RBC 0.000 (0.0-0.012) X10*3/uL Nucleated RBC % (auto) 0.0 (0.0-0.2) /100WBC PT 13.3 H (10.9-12.4) SEC INR 1.2 H (0.9-1.1) Sodium 139 (135-145) mmol/L Potassium 4.5 (3.3-5.1) mmol/L Chloride 106 (96-108) mmol/L Carbon Dioxide 23 (22-29) mmol/L Anion Gap 15 (12-20) BUN 24 H (9-16) mg/dL Creatinine 1.41 H (0.5-1.4) mg/dL Estim Creat Clear Calc 48.7 Estimated GFR 51 Random Glucose 148 H (60-115) mg/dL Calcium 7.8 L D (8.4-10.2) mg/dL Magnesium 2.1 (1.6-2.6) mg/dL Troponin I High Sens < 2.7 (<3.5-35.0) ng/L Independent Interpretation I performed an independent interpretation of an: EKG Interpretation: Normal sinus rhythm heart rate 86 beats per minute right bundle-branch block no acute ST-T changes no acute ischemia Discharge Plan Discharge Clinical Impression: Atypical chest pain Patient Disposition: Home, Self-Care Instructions: Chest Wall Pain (ED) Additional Instructions: There was no firing of the defibrillator Your pain is musculoskeletal take Tylenol/Motrin for pain as needed Prescriptions: No Action isosorbide mononitrate 30 mg Tablet Extended Release 24 Hr 30 mg PO DAILY Qty: 0 0RF Protocol: Hold for SBP< HOLD for SBP < : 90 sotalol 80 mg tablet 80 mg PO BID hydroxyzine pamoate 50 mg capsule 50 mg PO BID tamsulosin 0.4 mg capsule 0.4 mg PO BEDTIME nitroglycerin 0.4 mg tablet, sublingual 0.4 mg sublingual Q5M PRN (Reason: Chest Pain) albuterol sulfate 90 mcg/actuation HFA aerosol inhaler 2 puff inhalation Q4H PRN (Reason: Shortness Of Breath) ezetimibe 10 mg Tablet 10 mg PO DAILY 7 Days Qty: 7 0RF risperidone 1 mg tablet 1.5 mg PO BEDTIME Xarelto 20 mg tablet 20 mg PO DAILY@1800 levothyroxine 75 mcg tablet 75 mcg PO DAILY@0600 acetaminophen 325 mg tablet 650 mg PO Q4H PRN (Reason: Fever Or Pain) metformin 500 mg tablet 500 mg PO DAILY trazodone 50 mg tablet 25 mg PO BEDTIME ondansetron HCl 4 mg Tablet 4 mg PO Q4H PRN (Reason: nausea and vomitting) sumatriptan succinate 50 mg tablet 50 mg PO BID PRN (Reason: migraines) Rx Instructions: wait 2 hours between doses calcium carbonate [Tums] 300 mg (750 mg) Tablet,Chewable 300 mg PO Q4H PRN (Reason: Dyspepsia) aspirin 81 mg tablet,delayed release (DR/EC) 81 mg PO DAILY tramadol 50 mg tablet 50 mg PO Q6H PRN (Reason: migraines) quetiapine 100 mg tablet 100 mg PO BEDTIME magnesium hydroxide 400 mg/5 mL Suspension 30 ml PO DAILY PRN (Reason: Constipation) gabapentin 300 mg capsule 300 mg PO BID bisacodyl 5 mg Tablet,Delayed Release (Dr/Ec) 10 mg PO BEDTIME PRN (Reason: Constipation) alum-mag hydroxide-simeth [Mylanta Maximum Strength] 400-400-40 mg/5 mL Suspension 10 ml PO Q4H PRN (Reason: Constipation) escitalopram oxalate 20 mg Tablet 20 mg PO DAILY cyclobenzaprine 5 mg tablet 5 mg PO TID PRN (Reason: muscle spasms) melatonin 10 mg Tablet 10 mg PO BEDTIME PRN (Reason: Insomnia) prednisone 20 mg tablet 20 mg PO DAILY Qty: 5 0RF oxycodone 5 mg tablet 5 mg PO BID PRN (Reason: pain) Qty: 4 0RF Rx Instructions: Partial Fill upon patient request. cyclobenzaprine 10 mg tablet 10 mg PO TID PRN (Reason: muscle spasm) Qty: 10 0RF meclizine 25 mg tablet 25 mg PO DAILY PRN (Reason: dizziness) Qty: 14 0RF lidocaine 5 % adhesive patch,medicated 1 patch topical DAILY PRN (Reason: pain) Qty: 15 0RF Rx Instructions: leave on most painful area for up to 12 hrs acetaminophen [Tylenol] 325 mg capsule 325 mg PO Q4H PRN (Reason: pain) Qty: 30 0RF trazodone 150 mg tablet 150 mg PO BEDTIME hydroxyzine HCl 50 mg tablet 50 mg PO BEDTIME (DME) miscellaneous medical supply Misc See Rx Instructions .Route Qty: 1 0RF Rx Instructions: Quad cane use As directed oxycodone-acetaminophen 5-325 mg tablet 1 tab PO Q8H PRN (Reason: pain (scale score 7-10)) 7 Days Qty: 20 0RF Rx Instructions: Partial Fill upon patient request. naloxone [Narcan] 4 mg/actuation spray,non-aerosol 4 mg intranasal Q2M PRN (Reason: opioid overdose) Qty: 2 0RF Rx Instructions: spray 1 dose into ONE nostril; alternate nostrils w each dose until help arrives Interventions: ED Discharge Assessment Last Done: 11/08/24 22:35 Discharge Date/Time: 11/08/24 22:35 Print Language: Turkmen
[2024-11-08 19:42] LABS: MANUAL DIFF FLAG NO
[2024-11-08 19:43] LABS: Hematocrit 30.3 % (42.0-52.0); Hemoglobin 10.3 g/dl (14.0-18.0); Imm Gran Abs Auto 0.07 X10*3/uL (0.00-0.03); Imm Gran Pct Auto 1.2 % (0.0-0.4); Lymphocytes Absolute Auto 1.2 X10*3/uL (1.2-4.9); Mean Corpuscular HGB Conc 34.0 g/dl (31.0-36.0); Mean Corpuscular Hemoglobin 28.2 pg (27.0-33.0); Mean Corpuscular Volume 83.0 fL (80.0-98.0); NRBC Abs Auto 0.000 X10*3/uL (0.0-0.012); NRBC Pct Auto 0.0 /100WBC (0.0-0.2); Red Blood Count 3.65 X10*6/uL (4.60-5.80); White Blood Count 5.8 X10*3/uL (4.8-10.8)
[2024-11-08 19:45] LABS: Platelet Count 74 X10*3/uL (160-400)
[2024-11-08 19:59] LABS: Anion Gap 15 (12-20); Blood Urea Nitrogen 24 mg/dL (9-16); Calcium 7.8 mg/dL (8.4-10.2); Carbon Dioxide 23 mmol/L (22-29); Chloride 106 mmol/L (96-108); Creatinine Clr Calc Pharmacy 48.7; Estimated Glomerular Filt Rate 51; Magnesium 2.1 mg/dL (1.6-2.6); Potassium 4.5 mmol/L (3.3-5.1); Sodium 139 mmol/L (135-145)
[2024-11-08 20:03] LABS: INTERNATIONAL NORM RATIO 1.2 (0.9-1.1); Prothrombin Time 13.3 SEC (10.9-12.4)
[2024-11-08 20:06] LABS: Troponin-I High Sensitivity < 2.7 ng/L (<3.5-35.0)
[2024-11-08 20:25] VITALS: BP 112/59; PULSE 89; RESP 15; TEMP 37; O2SAT 97
[2024-11-08] MEDS: oxyCODONE HCl Immed Release 5 MG TABLET PO (20:26)
--- NOTE | 2024-11-08 21:52 | PC.NURSE ---
Spoke with nurse at [facility] Shun all questions answered at this time, awaiting EMS for transport back
[2024-11-08 22:15] VITALS: BP 119/73; PULSE 95; RESP 16; TEMP 36.4; O2SAT 97
[2024-11-08 22:35] VITALS: BP 119/73; PULSE 95; RESP 16; TEMP 36.4; O2SAT 97
== END 2024-11-08 22:35 | disposition home or self-care (01) ==
PROVIDERS: Emergency Provider Internal Medicine
DX: R07.89 Other chest pain (principal); I10 Essential (primary) hypertension; E11.9 Type 2 diabetes mellitus without complications; K21.9 Gastro-esophageal reflux disease without esophagitis; J44.9 Chronic obstructive pulmonary disease, unspecified; Z79.899 Other long term (current) drug therapy
CPT/HCPCS: 36415; 80048; 83735; 84484; 85025; 85610; 93005; 99283; 99284

== ENCOUNTER → 2024-11-08 19:20 | Outpatient (BNV) | payer OTHER, SELFPAY | PROVIDERS: Emergency Provider Internal Medicine; Visit Provider Internal Medicine | DX: I44.0 Atrioventricular block, first degree (principal); I49.3 Ventricular premature depolarization; I45.10 Unspecified right bundle-branch block | CPT/HCPCS: 93010 ==

== ENCOUNTER 2024-11-17 03:11 | Emergency (ER) | payer OTHER, SELFPAY ==
--- OUTSIDE RECORDS SUMMARY | 2018-03-07 04:25 | XMS_ITS | Continuity of Care Document ---
Author Organization [facility] Address [address] [place] [phone] Phone Care Team Providers Care Compound Mixer Name Role Phone Camryn Monroe MD Unavailable Unavailable Advance Directives Directive Yes / No Effective Date File Name No Information Encounters Encounter Description Practice Location Reason(s) For Visit Diagnoses Date Provider [facility], [address] [place] [address], [id number], [place] tel:[phone] [facility] No Information [address]. [address] [place] [address], [id number], [place]. tel:[phone] Family History Family Member Type Diagnosis Age At Onset No Information Payers Payer name Insurance type Covered republican ID Authoriza tion(s) No Information Social History Type Description Quantity Date Captured Comments Sex Male Smoking Status No Information Chief Complaint And Reason For Visit No Information History Of Present Illness Encounter Date Complaint History Of Prese nt Illness No Information Instructions Date Instruction Additional Infor mation No Information Assessments Type Assessment Date No Information
--- NOTE | 2024-11-17 03:15 | ECG_ITS ---
Test Reason : CP Blood Pressure : */* mmHG Vent. Rate : 78 BPM Atrial Rate : 78 BPM P-R Int : 192 ms QRS Dur : 170 ms QT Int : 464 ms P-R-T Axes : 61 104 36 degrees QTcB Int : 528 ms Normal sinus rhythm Right bundle branch block Left anterior fascicular block Abnormal ECG When compared with ECG of 08-Nov-2024 19:20, Premature ventricular complexes are no longer Present Referred By: Cherie Roque Electronically Signed By: Bryan Juarez
[2024-11-17 03:18] VITALS: BP 111/72; BP 117/73; PULSE 81; PULSE 84; RESP 17; TEMP 37; O2SAT 97; O2SAT 99; BMI 36.6
[2024-11-17 03:39] LABS: MANUAL DIFF FLAG NO
[2024-11-17 03:40] LABS: Hematocrit 30.9 % (42.0-52.0); Hemoglobin 10.5 g/dl (14.0-18.0); Imm Gran Abs Auto 0.31 X10*3/uL (0.00-0.03); Imm Gran Pct Auto 4.3 % (0.0-0.4); Lymphocytes Absolute Auto 1.3 X10*3/uL (1.2-4.9); Mean Corpuscular HGB Conc 34.0 g/dl (31.0-36.0); Mean Corpuscular Hemoglobin 27.9 pg (27.0-33.0); Mean Corpuscular Volume 82.0 fL (80.0-98.0); NRBC Abs Auto 0.000 X10*3/uL (0.0-0.012); NRBC Pct Auto 0.0 /100WBC (0.0-0.2); Platelet Count 111 X10*3/uL (160-400); Red Blood Count 3.77 X10*6/uL (4.60-5.80); White Blood Count 7.1 X10*3/uL (4.8-10.8)
--- NOTE | 2024-11-17 03:43 | PC.NURSE ---
[facility], respirations even and unlabored. pt reports sudden onset of left sided chest pain that had woken him from his sleep, reports he has had this in the past but not like this . pt vss. pt denies nausea and sob. ekg and labs obtained on arrival
[2024-11-17 03:58] LABS: Alanine Aminotransferase 17 U/L (0-40); Albumin Level 3.8 g/dL (3.5-5.0); Alkaline Phosphatase 74 U/L (39-117); Anion Gap 14 (12-20); Aspartate Amino Transferase 17 U/L (5-37); Blood Urea Nitrogen 19 mg/dL (9-16); Calcium 7.9 mg/dL (8.4-10.2); Carbon Dioxide 25 mmol/L (22-29); Chloride 108 mmol/L (96-108); Creatinine Clr Calc Pharmacy 73.0; Estimated Glomerular Filt Rate > 60; Magnesium 2.0 mg/dL (1.6-2.6); Potassium 4.0 mmol/L (3.3-5.1); Sodium 143 mmol/L (135-145); Total Protein 6.0 g/dL (6.5-8.0)
[2024-11-17 04:00] LABS: B Type Natriuretic Peptide 60 pg/mL (<100)
--- OUTSIDE RECORDS SUMMARY | 2024-11-17 04:02 | XMS_ITS | Clinical Summary ---
Author Organization [facility] Address [address] [facility] [place] [address] Care Team Providers Care Samples And Repairs Preparer Name Role Phone Unknown Primary Care Provider [...] series) 12/02/2024 Medical Devices Implanted Type Area Wirer Helper Device Identifier Shelf Expiration Date Model / Serial / Lot Defibrillato r-06/12/2008 Implanted:Qt y: 1 on 06/12/2008 Defibrillator Left: Chest [facility] [employer] - [id number] [facility] 2207-[address] AVILA / [id number] / Lead- 7 Implanted:Qt y: 1 on 05/05/[address] [employer] - [id number] [facility] 1688TC TENDRIL SDX / [id number] / Description:RA LEAD Lead-06/13/19 09 Implanted:Qt y: 1 on 06/12/[address] [employer] - [id number] [facility] 7121 EULALIO / [id number] / Description:RV LEAD Care Teams Samples And Repairs Preparer Relationship Specialty Start Date End Date Unknown None PCP - General 03/20/17
--- OUTSIDE RECORDS SUMMARY | 2024-11-17 04:02 | XMS_ITS | Clinical Summary ---
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 025 Atrial fibrillation (HC Code) 08/06/2024 [...] 11/06/2015 Overview (11/06/2015): [facility] [employer] AVILA serial #[id number] Dual Chamber ICD implanted 06/12/08 Type 2 diabetes mellitus 11/06/2015 Syncope and collapse 11/04/2015 Other chest pain 11/04/2015 Right bundle branch block 11/04/2015 Resolved Problems Problem Noted Date Diagnosed Date Resolved Date Flank pain, acute 08/06/2024 08/08/2024 Social History Tobacco Use Types Packs/Day Years Used Date Smoking Tobacco: Former Alcohol Use Standard Drinks/Week Comments No 0 (1 standard drink = 0.6 oz pur e alcohol) 5yrs sober [facility] Utilities Answer Date Recorded In the past 12 months has [employer], oil, or water [employer] threatened to shut off services in your home? No 08/04/2024 PHQ-2 Answer Date Recorded PHQ-2 Total Score 0 08/04/2024 Hunger Vital Sign Answer Date Recorded Within the past 12 months, y ou worried that your food would run out before you got the money to buy more. Never true 08/05/19 Within the past 12 months, t he [...] your living situation today? I have a [facility] place to live 08/04/2024 Housing Stability [...] Priority Date/Time Associated Diagnosis Comments HEMOGLOBIN A1C Add-On 08/04/2024 5:28 AM EDT CREATININE, URINE, RANDOM Urgent 11/05/2015 7:03 PM EDT from Last 3 Months or Most Recently Relevant to Health Maintenance Results * (ABNORMAL) Hemoglobin A1c (08/04/2024 5:28 AM EDT) Hemoglobin A1c 6.5(H) 4.0 - 5.6 % 08/05/2024 5:52 PM EDT [facility] Comment: Hemoglobin A1c values of 5.7-6.4 [...] mg/dL 140 mg/dL 08/05/2024 5:52 PM EDT [facility] Comment: Estimated average glucose (eAG) is a calculated value designed to estimate the expected average blood glucose level throughout the day from a single measurement of glycated hemoglobin A1C (HbA1c) and follows the calculation proposed by the [place] [employer] (Diabetes Care 31: 1-6, 2008). It may have less accuracy in children, women and patients with certain erythrocyte disorders. Blood Venipuncture / Unknown 08/04/2024 5:28 AM EDT 08/04/2024 5:35 AM EDT us Courtney Combs MD LAB BLOOD ORDERABLES Final Res ult [address] [phone] * Creatinine, urine, random (11/05/2015 7:03 PM EDT) Creatinine, Urine, Random 42 Reference Range not established mg/dL 11/05/2015 7:32 PM EDT [facility] Urine specimen (specimen) Collection / Unknown 11/05/2015 7:03 PM EDT 11/05/2015 7:11 PM EDT Narrative [facility] - 11/05/2015 7:32 PM EDT R1 us Carlos Lara APRN URINE ORDERABLES Fi nal Result Performing Organization Address City/[facility]/ZIP Co de Phone Number [facility] [address] [place] [id number], [facility] [phone] from Last 3 Months or Most Recently Relevant to Health Maintenance Insurance MEDICARE MEDICARE MANAGED [facility] MEDICARE MEDICARE MANAGED [facility] MEDICARE MEDICARE MANAGED [facility] [id number] MEDICAID MEDICARE MANAGED [facility] MEDICARE [id number] MEDICAID MEDICARE MANAGED MISC MEDICARE [id number] MEDICAID MEDICARE MANAGED [facility] [id number] MEDICAID MEDICARE MANAGED [facility] MEDICARE Advance Directives * Full Code (Latest Code Status on File) Date Activated Date Inactivated Comments 08/02/2024 2:10 PM 08/08/2024 2:42 PM * Full Interventions Date Activated Date Inactivated Comments 11/04/2015 8:13 PM 11/06/2015 6:27 PM Question Answer Comments With Whom was the Code Statu s Discussed? Health Care Web Producer Specify Individuals' Names: Kinza preciado, healthcare proxy and foster solutions development analyst * Full Interventions Date Activated Date Inactivated Comments 11/04/2015 6:05 PM 11/04/2015 8:09 PM Care Teams Chicken Boner Relationship Specialty Start Date End Date Obtain, Unable To PCP - General 08/02/24
--- OUTSIDE RECORDS SUMMARY | 2024-11-17 04:02 | XMS_ITS | Clinical Summary ---
Author Organization [facility] Address [address] [place] [address] Care Team Providers Care Drink Mixer Name Role Phone Lilliam Amaridavin ROSS Primary Care Provider [phone] Allergies Active Allergy Reactions Criticality Noted Date [...] this topic Medical Devices Implanted Type Area Collection Systems Administrator Device Identifier Shelf Expiration Date Model / Serial / Lot Icd ICD [facility] 2411-36c Vinicio Nelson [id number] Implanted:05/04 (Quantity not on file) ICD [facility] [employer] 2411-36C VINICIO NELSON / [id number] / Pacemaker Pacemaker Procedures Procedure Name Priority Date/Time Associated Diagnosis Comments HEMOGLOBIN A1C WITH ESTIMATED AVERAGE GLUCOSE STAT 01/22/2023 7:00 AM EDT from Last 3 Months or Most Recently Relevant to Health Maintenance Results * (ABNORMAL) Hemoglobin A1c with Estimated Average Glucose (01/22/2023 7:00 AM EDT) Hemoglobin A1C 7.1(H) <5.7 % 01/22/2023 8:43 AM EDT [facility] Comment: A1c% Interpretation 5.7 - 6.0 Increase risk of diabetes 6.1 - 6.4 Higher risk of diabetes > or = 6.5 Consistent with diabetes Diabetes Care, 33(Supp 1):S1-S61, 2010 Estimated Average Glucose 157 mg/dL 01/22/2023 8:43 AM EDT [facility] Blood specimen (specimen) Blood specimen / Unknown 01/22/2023 7:00 AM EDT 01/22/2023 7:33 AM EDT Christophe Bullard MD LAB BLOOD ORDERABLES Fi nal Result HOSPITAL LAB See Below [address] [id number] from Last 3 Months or Most Recently Relevant to Health Maintenance Insurance [facility] MEDIC[facility] OUT OF NETWORK [facility] [place] [place] MGD MEDICARE OUT OF NETWORK Advance Directives [...] 2:18 PM 06/06/2018 4:09 PM Care Teams Drink Mixer Relationship Specialty Start Date End Date Amari Vyas DO [address] [place] [id number] PCP - General Internal Medicine 01/21/23
--- OUTSIDE RECORDS SUMMARY | 2024-11-17 04:02 | XMS_ITS | Encounter Summary ---
Author Organization [employer] Address [address] [place] [address] [place] [address] Care Team Providers Care Edge Inker Name Role Phone Lauren Whittaker MD Primary Care Pro vider Encounter Details Date Type Department Care Team ([facility] st Contact Info) Description 01/30/2024 Telephone [facility] [address], [place] [phone] Ioana Antonio, PharmD [address] [place] [address] Social History Tobacco Use Types Packs/Day Years [...] 12:56 PM EST Tc from Pat with [facility] cardiology . States is returning a missed call. Best contact # [phone]. * Telephone Encounter - Ioana Antonio PharmD - 01/30/2024 3:10 PM EDT Please assist in obtaining discharge paperwork from [facility] Patient was discharged on 01/27/2024, and [facility] recent discharge (exact date unknown). Thank you documented in this encounter Plan of Treatment Upcoming Encounters Date Type Department Care Team (Late st Contact Info) Description 12/05/2024 10:00 AM EDT Office Visit [facility] [address] [place] [phone] Lauren Whittaker MD [address] [place] [address] documented as of this encounter Visit Diagnoses Not on filedocumented in this encounter Additional Health Concerns Assessment Noted Time PHQ-9 Depression Total Score: 0 11/15/19 9:31 AM EDT documented as of this encounter Care Teams Edge Inker Relationship Specialty Start Date End Date Lauren Whittaker MD [address] [place] [phone] PCP - General Internal Medicine 11/15/23 [facility] 03/08/24 documented as of this encounter
--- OUTSIDE RECORDS SUMMARY | 2024-11-17 04:02 | XMS_ITS | Encounter Summary ---
Author Organization [facility] Address [address] [place] [address] Care Team Providers Care [employer] Name Role Phone Patient, Has No Pcp Or Ref Primary Care Provider Unavailable Encounter Details Date Type Department Care Team (Late st Contact Info) Description 10/05/2022 Telephone [facility] Medicine [address] [place] [id number] Pool Rodriguez, RN Social History Tobacco [...] documented as of this encounter Care Teams [employer] Relationship Specialty Start Date End Date Patient, Has No Pcp Or Ref DO NOT EDIT THIS RECORD VIA PROVIDER ON THE FLY PCP - General Industrial Psychologist 07/11/24 documented as of this encounter
[2024-11-17 04:08] LABS: Troponin-I High Sensitivity < 2.7 ng/L (<3.5-35.0)
--- NOTE | 2024-11-17 04:12 | ED.CHESTPAIN ---
HPI - Chest Pain General Chief Complaint: Chest Pain Stated Complaint: CP,FROM SNF PER EMS Time Seen by Provider: 11/17/24 04:06 Source: patient, EMS and old records reviewed Mode of arrival: EMS Limitations: no limitations History of Present Illness ED Provider: JAVI HUANG narrative: 64 yo male with PMH of COPD, depression, AICD, MDD, alcohol abuse, tetralogy of fallot with RBBB, intellectual disability frequent visits and reports of firing AICD, chest pain with request for IV morphine - he was just seen at [facility] from [facility] it was found to be calcification. He comes in tonight with c/o awaking at 130am with abrupt onset L chest pain. He also c/o headaches and neck pain from a recent fall had work up and saw NSGY at [facility]. He denies sob/nausea. He states I don't know why I always get these chest pains. No recent URI MD complaint: chest pain Pertinent past history: other Onset (ago): hour(s) (130am ) Timing of current episode: constant Prior episodes: Yes Onset: during rest Pain location: left chest Pain radiation: none Severity: moderate Quality: aching Relieving factors: nothing Exacerbating factors: nothing Context: recent illness Treatment prior to arrival: none Related Data Home Medications ?Medication ?Instructions ?Recorded ?Confirmed albuterol sulfate 90 mcg/actuation 2 puff inhalation Q4H PRN 08/19/22 01/01/23 aerosol inhaler Shortness Of Breath hydroxyzine pamoate 50 mg capsule 50 mg PO BID Anxiety / Nausea 08/19/22 01/01/23 nitroglycerin 0.4 mg sublingual 0.4 mg sublingual Q5M PRN Chest 08/19/22 01/01/23 tablet Pain sotalol 80 mg tablet 80 mg PO BID 08/19/22 01/01/23 tamsulosin 0.4 mg capsule 0.4 mg PO BEDTIME 08/19/22 01/01/23 levothyroxine 75 mcg tablet 75 mcg PO DAILY@0600 09/08/22 01/01/23 risperidone 1 mg tablet 1.5 mg PO BEDTIME 09/08/22 01/01/23 rivaroxaban 20 mg tablet (Xarelto) 20 mg PO DAILY@1800 09/08/22 01/01/23 acetaminophen 325 mg tablet 650 mg PO Q4H PRN Fever Or Pain 01/01/23 01/01/23 aluminum-mag hydroxide-simethicone 10 ml PO Q4H PRN Constipation 01/01/23 01/01/23 400 mg-400 mg-40 mg/5 mL oral susp (Mylanta Maximum Strength) aspirin 81 mg tablet,delayed 81 mg PO DAILY 01/01/23 01/01/23 release bisacodyl 5 mg tablet,delayed 10 mg PO BEDTIME PRN Constipation 01/01/23 01/01/23 release calcium carbonate (Tums) 300 mg PO Q4H PRN Dyspepsia 01/01/23 01/01/23 cyclobenzaprine 5 mg tablet 5 mg PO TID PRN muscle spasms 01/01/23 01/01/23 escitalopram oxalate 20 mg tablet 20 mg PO DAILY 01/01/23 01/01/23 gabapentin 300 mg capsule 300 mg PO BID 01/01/23 01/01/23 magnesium hydroxide 400 mg/5 mL 30 ml PO DAILY PRN Constipation 01/01/23 01/01/23 oral suspension melatonin 10 mg tablet 10 mg PO BEDTIME PRN Insomnia 01/01/23 01/01/23 metformin 500 mg tablet 500 mg PO DAILY 01/01/23 01/01/23 ondansetron HCl 4 mg tablet 4 mg PO Q4H PRN nausea and 01/01/23 01/01/23 vomitting quetiapine 100 mg tablet 100 mg PO BEDTIME 01/01/23 01/01/23 sumatriptan succinate 50 mg tablet 50 mg PO BID PRN migraines 01/01/23 01/01/23 tramadol 50 mg tablet 50 mg PO Q6H PRN migraines 01/01/23 01/01/23 trazodone 50 mg tablet 25 mg PO BEDTIME 01/01/23 01/01/23 hydroxyzine HCl 50 mg tablet 50 mg PO BEDTIME 12/26/23 trazodone 150 mg tablet 150 mg PO BEDTIME 12/26/23 Previous Rx's ?Medication ?Instructions ?Recorded isosorbide mononitrate 30 mg 30 mg PO DAILY #0 tabs 09/22/21 tablet,extended release 24 hr ezetimibe 10 mg tablet 10 mg PO DAILY 7 days #7 tabs 08/24/22 oxycodone 5 mg tablet 5 mg PO BID PRN pain #4 tabs 01/01/23 prednisone 20 mg tablet 20 mg PO DAILY #5 tabs 01/01/23 cyclobenzaprine 10 mg tablet 10 mg PO TID PRN muscle spasm #10 08/31/23 tabs acetaminophen 325 mg capsule 325 mg PO Q4H PRN pain #30 caps 09/30/23 (Tylenol) lidocaine 5 % topical patch 1 patch topical DAILY PRN pain #15 09/30/23 ea meclizine 25 mg tablet 25 mg PO DAILY PRN dizziness #14 09/30/23 tabs miscellaneous medical supply #1 ea 12/26/23 naloxone 4 mg/actuation nasal 4 mg intranasal Q2M PRN opioid 12/26/23 spray (Narcan) overdose #2 ea oxycodone-acetaminophen 5 mg-325 1 tab PO Q8H PRN pain (scale score 12/26/23 mg tablet 7-10) 7 days #20 tabs Allergies Allergy/AdvReac Type Severity Reaction Status Date / Time aripiprazole (From Abilify) Allergy Severe Rash Verified 11/17/24 03:21 peas Allergy Severe HIVES Verified 11/17/24 03:21 atorvastatin (From Lipitor) Allergy Intermediate Hives Verified 11/17/24 03:21 levetiracetam Allergy Itching Verified 11/17/24 03:21 bee pollen (bee stings) AdvReac Severe Anaphylaxis Verified 11/17/24 03:21 Review of Systems Review of Systems: Constitutional : No Weight loss, No Fever, No Chills ENT/Mouth : No sore throat, No Rhinorrhea Eyes: No Eye Pain, No Swelling Cardiovascular : pos Chest Pain, no SOB, no Dyspnea on Exertion, No Orthopnea, No Edema, No Palpitations Respiratory : No Cough, No Sputum Gastrointestinal : pos Nausea, No Vomiting, No Diarrhea, No abdominal Pain, No Hematochezia, No Melena Genitourinary : No Dysuria, No Urinary Frequency Musculoskeletal : No joint pain, No Myalgias, No Joint Swelling Skin : No Skin Lesions, No rash Neuro : No Weakness, No Numbness, No Dizziness, No Headache All other systems reviewed and are negative PMFSH Past Medical History Attestation statement: The following information was validated with the patient. Source: old records reviewed Medical History Somatoform disorder Depression with suicidal ideation Sleep apnea Seizure RBBB Cardiac defibrillator in place Artificial cardiac pacemaker Hyperthyroidism Hyperlipidemia History of ETOH abuse Hypertension GERD (gastroesophageal reflux disease) Diabetes Developmental delay, mild Depression COPD (chronic obstructive pulmonary disease) Asthma Anxiety Surgical History History of cardiac cath Social History Social History Household Members: Other Household Members Other:: 2 roommates Housing: Apartment Housing Other:: Sober House Do you presently have visiting nurse or other home services: No Alcohol intake: never Patient Tobacco Use Status: Never used Tobacco Tobacco use type: Cigarette Second Hand Smoke Exposure: No Substance Use Type: Former Substance User, Prescription Drugs and Caffiene Advance Directives: Yes Advance Directives on File: Yes Advance Directives Date on File: 11/12/24 service: No Current occupational status: disabled Sexual orientation: Decline to Answer Physical Exam Vital Signs: Vital Signs: Last Vital Signs Temp 98.6 F 11/17/24 03:18 Pulse 81 11/17/24 03:18 Resp 17 11/17/24 03:18 BP 111/72 11/17/24 03:18 Pulse Ox 99 11/17/24 03:18 O2 Del Method Room Air 11/17/24 03:18 BMI result Body Mass Index 36.6 Appearance: Alert. Oriented X3. No acute distress. Eyes: Pupils equal, round and reactive to light. ENT: Pharynx normal. Neck: Normal inspection. Neck supple. CVS: Normal heart rate and rhythm. Pulses normal. Respiratory: No respiratory distress. Breath sounds normal. Abdomen: Soft and nontender. Skin: Skin warm and dry. Normal skin color. Extremities: No lower extremity edema. Neuro: Oriented X 3. No motor deficit. No sensory deficit. CN2-12 intact Medical Decision Making Medical Decision Making MDM Narrative: 64 yo male with PMH of COPD, depression, AICD, MDD, alcohol abuse, tetralogy of fallot with RBBB, intellectual disability now here with abrupt onset chest 130 - he is in no distress no dyspnea, no fevers, no nausea, he is drinking dorothy allen will obtain EKG, trop x 2. If negative stable for DC, no dyspnea no tachycardia doubt VTE. Differential Diagnosis Differential Diagnoses: The differential diagnosis associated with the presentation includes chest pain, MSK pain Admission/Observation Consideration of admission/observation: Escalation of care including admission/observation considered work up neg flat trop stable for DC Lab Data MDM Lab Attestation statement: I reviewed the patient's lab results. neg trop x 2 11/17/24 03:30 11/17/24 03:30 Labs: Lab Results 11/17/24 11/17/24 Range/Units 03:30 05:37 WBC 7.1 (4.8-10.8) X10*3/uL RBC 3.77 L (4.60-5.80) X10*6/uL Hgb 10.5 L (14.0-18.0) g/dl Hct 30.9 L (42.0-52.0) % MCV 82.0 (80.0-98.0) fL MCH 27.9 (27.0-33.0) pg MCHC 34.0 (31.0-36.0) g/dl RDW 13.4 (11.0-16.0) % Plt Count 111 L D (160-400) X10*3/uL MPV 11.7 (9.4-12.4) fL Immature Gran % (Auto) 4.3 H (0.0-0.4) % Neut % (Auto) 60.5 (45-73) % Lymph % (Auto) 17.6 L (20-40) % Bonner % (Auto) 10.9 (2-11) % Eos % (Auto) 6.0 H (0-4) % Baso % (Auto) 0.7 (0-2) % Lymph # (Auto) 1.3 (1.2-4.9) X10*3/uL Bonner # (Auto) 0.8 (0.1-1.2) X10*3/uL Eos # (Auto) 0.4 (0.0-0.4) X10*3/uL Baso # (Auto) 0.1 (0.0-0.2) X10*3/uL Abs Immat Gran (auto) 0.31 H (0.00-0.03) X10*3/uL Absolute Neuts (auto) 4.3 (2.0-8.3) x10*3/uL Absolute Nucleated RBC 0.000 (0.0-0.012) X10*3/uL Nucleated RBC % (auto) 0.0 (0.0-0.2) /100WBC Sodium 143 (135-145) mmol/L Potassium 4.0 (3.3-5.1) mmol/L Chloride 108 (96-108) mmol/L Carbon Dioxide 25 (22-29) mmol/L Anion Gap 14 (12-20) BUN 19 H (9-16) mg/dL Creatinine 1.10 (0.5-1.4) mg/dL Estim Creat Clear Calc 73.0 Estimated GFR > 60 Random Glucose 140 H (60-115) mg/dL Calcium 7.9 L (8.4-10.2) mg/dL Magnesium 2.0 (1.6-2.6) mg/dL Total Bilirubin 0.4 (0.0-1.0) mg/dL Direct Bilirubin 0.1 (0.0-0.5) mg/dL AST 17 (5-37) U/L ALT 17 (0-40) U/L Alkaline Phosphatase 74 (39-117) U/L Troponin I High Sens < 2.7 < 2.7 (<3.5-35.0) ng/L B-Natriuretic Peptide 60 (<100) pg/mL Total Protein 6.0 L (6.5-8.0) g/dL Albumin 3.8 (3.5-5.0) g/dL Independent Interpretation I performed an independent interpretation of an: EKG Interpretation: Rate: 78 Rhythm: NSR [place]: normal Normal P waves. Normal BRITTANY. RBBB ST T wave : inverted t waves V1 and V2 no CADY qTC: 528 prior studies: The study has been interpreted contemporaneously by me. . Independent Historian Clinical information obtained from an independent historian. History obtained from or confirmed by: EMS External Record Review External record reviewed: Inpatient record and Outpatient record Discharge Plan Discharge Clinical Impression: Chest pain Qualifiers: Chest pain type: precordial pain Qualified Code(s): R07.2 - Precordial pain Patient Disposition: Home, Self-Care Instructions: Chest Pain (ED) Additional Instructions: EKG and labs are reassuring return for any worsening symptoms or concerns Prescriptions: No Action isosorbide mononitrate 30 mg Tablet Extended Release 24 Hr 30 mg PO DAILY Qty: 0 0RF Protocol: Hold for SBP< HOLD for SBP < : 90 sotalol 80 mg tablet 80 mg PO BID hydroxyzine pamoate 50 mg capsule 50 mg PO BID tamsulosin 0.4 mg capsule 0.4 mg PO BEDTIME nitroglycerin 0.4 mg tablet, sublingual 0.4 mg sublingual Q5M PRN (Reason: Chest Pain) albuterol sulfate 90 mcg/actuation HFA aerosol inhaler 2 puff inhalation Q4H PRN (Reason: Shortness Of Breath) ezetimibe 10 mg Tablet 10 mg PO DAILY 7 Days Qty: 7 0RF risperidone 1 mg tablet 1.5 mg PO BEDTIME Xarelto 20 mg tablet 20 mg PO DAILY@1800 levothyroxine 75 mcg tablet 75 mcg PO DAILY@0600 acetaminophen 325 mg tablet 650 mg PO Q4H PRN (Reason: Fever Or Pain) metformin 500 mg tablet 500 mg PO DAILY trazodone 50 mg tablet 25 mg PO BEDTIME ondansetron HCl 4 mg Tablet 4 mg PO Q4H PRN (Reason: nausea and vomitting) sumatriptan succinate 50 mg tablet 50 mg PO BID PRN (Reason: migraines) Rx Instructions: wait 2 hours between doses calcium carbonate [Tums] 300 mg (750 mg) Tablet,Chewable 300 mg PO Q4H PRN (Reason: Dyspepsia) aspirin 81 mg tablet,delayed release (DR/EC) 81 mg PO DAILY tramadol 50 mg tablet 50 mg PO Q6H PRN (Reason: migraines) quetiapine 100 mg tablet 100 mg PO BEDTIME magnesium hydroxide 400 mg/5 mL Suspension 30 ml PO DAILY PRN (Reason: Constipation) gabapentin 300 mg capsule 300 mg PO BID bisacodyl 5 mg Tablet,Delayed Release (Dr/Ec) 10 mg PO BEDTIME PRN (Reason: Constipation) alum-mag hydroxide-simeth [Mylanta Maximum Strength] 400-400-40 mg/5 mL Suspension 10 ml PO Q4H PRN (Reason: Constipation) escitalopram oxalate 20 mg Tablet 20 mg PO DAILY cyclobenzaprine 5 mg tablet 5 mg PO TID PRN (Reason: muscle spasms) melatonin 10 mg Tablet 10 mg PO BEDTIME PRN (Reason: Insomnia) prednisone 20 mg tablet 20 mg PO DAILY Qty: 5 0RF oxycodone 5 mg tablet 5 mg PO BID PRN (Reason: pain) Qty: 4 0RF Rx Instructions: Partial Fill upon patient request. cyclobenzaprine 10 mg tablet 10 mg PO TID PRN (Reason: muscle spasm) Qty: 10 0RF meclizine 25 mg tablet 25 mg PO DAILY PRN (Reason: dizziness) Qty: 14 0RF lidocaine 5 % adhesive patch,medicated 1 patch topical DAILY PRN (Reason: pain) Qty: 15 0RF Rx Instructions: leave on most painful area for up to 12 hrs acetaminophen [Tylenol] 325 mg capsule 325 mg PO Q4H PRN (Reason: pain) Qty: 30 0RF trazodone 150 mg tablet 150 mg PO BEDTIME hydroxyzine HCl 50 mg tablet 50 mg PO BEDTIME (DME) miscellaneous medical supply Misc See Rx Instructions .Route Qty: 1 0RF Rx Instructions: Quad cane use As directed oxycodone-acetaminophen 5-325 mg tablet 1 tab PO Q8H PRN (Reason: pain (scale score 7-10)) 7 Days Qty: 20 0RF Rx Instructions: Partial Fill upon patient request. naloxone [Narcan] 4 mg/actuation spray,non-aerosol 4 mg intranasal Q2M PRN (Reason: opioid overdose) Qty: 2 0RF Rx Instructions: spray 1 dose into ONE nostril; alternate nostrils w each dose until help arrives Print Language: [place]uran
[2024-11-17 06:04] LABS: Troponin-I High Sensitivity < 2.7 ng/L (<3.5-35.0)
[2024-11-17 06:30] VITALS: BP 111/62; PULSE 83; RESP 16; TEMP 36.2; O2SAT 97
[2024-11-17 07:26] VITALS: BP 111/62; PULSE 83; RESP 16; TEMP 36.2; O2SAT 97
== END 2024-11-17 07:27 | disposition skilled nursing facility (03) ==
PROVIDERS: Emergency Provider Emergency Medicine; PCP Internal Medicine
DX: R07.2 Precordial pain (principal); R07.9 Chest pain, unspecified; J44.9 Chronic obstructive pulmonary disease, unspecified; Z95.810 Presence of automatic (implantable) cardiac defibrillator
CPT/HCPCS: 36415; 80048; 80076; 83735; 83880; 84484; 85025; 93005; 99283; 99285

== ENCOUNTER → 2024-11-17 03:15 | Outpatient (BNV) | payer OTHER, SELFPAY | PROVIDERS: Emergency Provider Emergency Medicine; PCP Internal Medicine; Visit Provider Internal Medicine Cardiovascular Disease | DX: I45.10 Unspecified right bundle-branch block (principal); I44.4 Left anterior fascicular block | CPT/HCPCS: 93010 ==

== ENCOUNTER 2024-12-10 09:42 | Emergency (ER) | payer OTHER, SELFPAY ==
--- OUTSIDE RECORDS SUMMARY | 2018-03-07 04:25 | XMS_ITS | Continuity of Care Document ---
Author Organization [facility] Address [address] [place] [phone] Phone Care Team Providers Care Insurance Claims Supervisor Name Role Phone Camryn Monroe MD Unavailable Unavailable Advance Directives Directive Yes / No Effective Date File Name No Information Encounters Encounter Description Practice Location Reason(s) For Visit Diagnoses Date Provider [facility], [address] [place] [address], [id number], [place] tel:[phone] [facility] No Information [address]. [address] [place] [address], [id number], [place]. tel:[phone] Family History Family Member Type Diagnosis Age [...]
--- OUTSIDE RECORDS SUMMARY | 2024-12-05 15:18 | XMS_ITS | Encounter Summary ---
Author Organization [facility] Address [address] [place] [address] Care Team Providers Care Craft Coordinator Name Role Phone Anabella Solomon MD MPH Primary Care Provider [phone] Reason for Visit * Reason Comments Chest Pain Fall Syncope * Auth/Cert (Routine) Specialty Diagnoses / Procedures Referred By Contcamille t Referred To Contact Diagnoses Encounter for examination and observation for unspecified reason Referral ID Status Reason Start Date Expiration Date Visits Re quested Visits Authorized [id number] 99 99 Encounter Details Date Type Department Care Team (Latest Contact Info) Description 12/05/2024 3:18 PM EDT - 12/06/2024 1:15 AM EDT Hospital Encounter [facility] Emergency Department [address] [place] [address] [phone] Aden Baldwin MD [address] [place] [phone] Shreyas Mann MD [address] [place] [address] [phone] Chest pain, unspecified type (Primary Dx) Discharge Disposition: Home or Self Care () Social History Tobacco Use Types Packs/Day Years [...] on file documented as of this encounter Last Filed Vital Signs Vital Sign Reading Time Taken Comments Blood Pressure 136/86 12/06/2024 12:45 AM EDT Pulse 79 12/06/2024 12:45 AM EDT Temperature 36.4 C (97.5 F) 12/06/2024 12:45 AM EDT Respiratory Rate 18 12/06/2024 12:45 AM EDT Oxygen Saturation 95% 12/06/2024 12:45 AM EDT Inhaled Oxygen Concentration - - Weight - - Height - - Body Mass Index - - documented in this encounter Discharge Instructions * Discharge Instructions* Shira Lopez DO - 12/06/2024 12:11 AM EDT You were seen here today for evaluation of chest pain. Your rash is due to healing scabies. Your imaging was all reassuring. All of your labs were reassuring. CT head shows stable 8 mm probable cavernoma in the left frontal lobe. You were given pain medications here We discussed with cardiology and overall believe that your pain is not cardiac in nature You should follow up with your PCP in 3-5 days for reevaluation documented in this encounter Medications at Time of Discharge acetaminophen (TYLENOL) 325 mg tablet Take 2 tablets (650 mg total) by mouth every 6 hours as needed for pain. 08/29/2019 aluminum-magnesiu m hydroxide-simethi cone (MAALOX) 200-200-20 mg/5 mL suspension Take 30 mL by mouth every 6 hours as needed for indigestion or heartburn. 06/28/2022 aspirin chewable tablet 81 mg Chew and swallow 81 mg by mouth once a day. EPINEPHrine (EPIPEN) 0.3 mg/0.3 mL injection syringe Inject 0.3 mg into the shoulder, thigh, or buttocks muscle as directed once daily as needed for anaphylaxis. 07/17/2019 escitalopram (LEXAPRO) 10 mg tablet Take 20 mg by mouth once a day. 07/26/2022 ezetimibe (ZETIA) 10 mg tablet Take 10 mg by mouth daily. 09/19/2022 gabapentin (NEURONTIN) 300 mg capsule Take 300 mg by mouth 2 (two) times a day. hydrOXYzine (ATARAX) 50 mg tablet Take 50 mg by mouth 2 times a day as needed for anxiety. isosorbide mononitrate ER (IMDUR) 30 mg tablet Take 30 mg by mouth daily. 07/26/2022 lidocaine (LIDODERM) 5% patch Apply 1 patch topically to the affected area once a day. Remove and discard patch within 12 hours or as directed. 03/17/2023 melatonin 5 mg tablet Take 5 mg by mouth nightly. metFORMIN (GLUCOPHAGE) 500 mg tablet Take 500 mg by mouth 2 times a day with meals. 11/06/2022 nitroglycerin (NITROSTAT) 0.[address] 1 tablet (0.4 mg total) under the tongue every 5 minutes as needed for chest pain. If no relief after 3 doses, call 911. 10/15/2019 ondansetron (ZOFRAN) 4 mg tablet Take 4 mg by mouth every 8 hours as needed for nausea or vomiting. pantoprazole DR (PROTONIX) 40 mg tablet Take 40 mg by mouth daily. 02/14/2023 QUEtiapine (SEROquel) 100 mg tablet Take 100 mg by mouth nightly. risperiDONE (RisperDAL) 1 mg tablet Take 1.5 mg by mouth nightly. 06/28/2022 rivaroxaban (XARELTO) 20 mg tablet Take 20 mg by mouth once a day. sotalol (BETAPACE) tablet 80 mg Take 80 mg by mouth 2 times a day. tamsulosin (FLOMAX) 0.4 mg capsule Take 0.4 mg by mouth once a day. traMADoL (ULTRAM) 50 mg tablet Take 50 mg by mouth every 6 hours as needed for pain. Tums 200 mg calcium (500 mg) chewable tablet Chew and swallow 500 mg by mouth every 4 hours as needed for indigestion or heartburn. 06/28/2022 documented as of this encounter Progress Notes * Gilbert Stearns MD - 12/05/2024 4:21 PM EDT Direct to CT Initial Evaluation Note I was alerted by clinical staff of the imminent arrival of a potentially critical patient. I met the patient emergently in the CT scanner upon arrival. Given the potential high acuity, history was obtained from EMS regarding events prior to arrival to facilitate rapid imaging. Initial concern was for intracranial hemorrhage or stroke. I discussed the case with the trauma attending. I was involvedin the initial care of this patient to determine if they were stable for continued care in the general emergency department. CT images were personally reviewed and significant for no acute ich. documented in this encounter ED Notes * Shira Lopez, - 12/05/2024 2:56 PM EDT History HPI: Chief Complaint Patient presents with Chest Pain Fall Syncope HPI This is a 64-year-old male with a past medical history significant for pzk-rkrfgkb-mvkoletma type 2diabetes mellitus, hypertension, hyperlipidemia, seizure disorder, atrial fibrillation chronically anticoagulant Xarelto status post AICD placement, frequent admissions to the hospital for recurrent n oncardiac chest pain/left-sided to [facility], [facility], living in a snf in [facility] presenting here due to left-sided chest pain and fall. He says he was walking and he experienced his 10 out of 10 left-sided chest pain that radiated up to his neck and down his left arm, stabbing feeling, this is the same chest pain he has had in the past. Because of the severity of the pain he then fell and struck his head. He did not lose loss of consciousness. He did not have any prodromal symptoms besides his chest pain that made him mechanically fall. Of note he was treated for scabies last week, since he finished his medication, his skin is longer no longer itchy but feels likehe has a new rash, this rash started last week and has been stable. The rash is over the areas thathad bumps from his scabies that he then itched and bled a little bit. He is asking for Dilaudid multiple times through the conversation, as this is what to have with his pain in the past. He denies vision changes, nausea, vomiting, abdominal pain, fevers, chills, numbness, tingling Patient History Past Medical History: Diagnosis Date CAD (coronary artery disease) HTN (hypertension) Hyperlipidemia Hypothyroid PONCE (obstructive sleep apnea) Schizophrenia Tetralogy of Fallot Past Surgical History: Procedure Laterality Date APPENDECTOMY CARDIAC CATHETERIZATION N/A 08/19/2019 Procedure: Coronary angiography; Surgeon: Sukhjinder Capone MD; Location: [facility] V[facility] Int Lab; Service: Invasive Cardiology CARDIAC CATHETERIZATION N/A 08/19/2019 Procedure: Percutaneous coronary intervention; Surgeon: Sukhjinder Capone MD; [facility]; Service: Invasive Cardiology CARDIAC CATHETERIZATION N/A 08/19/2019 Procedure: Pressure Wire; Surgeon: Sukhjinder Capone MD; Location: [facility]; Service: Invasive Cardiology TETRALOGY OF FALLOT REPAIR No family history on file. Social History Tobacco Use Smoking status: Former Current packs/day: 0.00 Average packs/day: 1 pack/day for 3.0 years (3.0 ttl pk-yrs) Types: Cigarettes Start date: 04/03/1981 Quit date: 04/03/1984 Years since quittin.7 Smokeless tobacco: Never Vaping Use Vaping status: Never Used Substance Use Topics Alcohol use: Not Currently Comment: former etoh abuse, last drink March 2019 Drug use: Never Vaping Questions Responses Vaping Use Never User Sexuality and Gender Identity Sexuality Legal Information Legal first name: [place] Legal last name: No Legal sex: Male Gender Identity Patient's sex assigned at : Male Organ Inventory Organs the patient currently has: Organs present at or expected at to develop: Organs surgically enhanced or constructed: Organs hormonally enhanced or developed: breasts cervix ovaries uterus vagina penis prostate testes Review of Systems REVIEW OF SYSTEMS: Physical Exam Physical Exam ED Triage Vitals [12/05/24 1525] Temp Heart Rate Resp BP SpO2 36.7 ??C (98.1 ??F) 73 17 131/66 99 % Temp Source Heart Rate Source Patient Position BP Location Set FiO2 (O2%) Oral Monitor Lying Right arm -- Physical Exam Vitals and nursing note reviewed. Constitutional: Appearance: He is well-developed. HENT: Head: Normocephalic and atraumatic. Eyes: General: No visual field deficit. Conjunctiva/sclera: Conjunctivae normal. Cardiovascular: Rate and Rhythm: Normal rate and regular rhythm. Heart sounds: No murmur heard. Pulmonary: Effort: Pulmonary effort is normal. No respiratory distress. Breath sounds: Normal breath sounds. Abdominal: Palpations: Abdomen is soft. Tenderness: There is no abdominal tenderness. Musculoskeletal: Cervical back: Neck supple. Comments: No tenderness or deformity of the bilateral upper extremities No tenderness or deformity of the hips No tenderness or deformity of the bilateral lower extremities No tenderness or deformity of chest wall No midline bony tenderness of the spine Paraspinal muscle tenderness in thoracic and lumbar region Skin: General: Skin is warm and dry. Comments: Petechiae rash, nonblanching. Areas of scabs over the petechiae, some flat, some raised areas. This is over his, some raised areas. This is over his abdomen, chest, arms bilaterally, bilateral legs and back. He has no rash in his mouth or on his palms or on his feet. He has no blisters or sloughing off of skin. Rash is nonpruritic and nonpainful Neurological: General: No focal deficit present. Mental Status: He is alert and oriented to person, place, and time. Mental status is at baseline. Cranial Nerves: Cranial nerves 2-12 are intact. No cranial nerve deficit, dysarthria or facial asymmetry. Sensory: Sensation is intact. No sensory deficit. Motor: Motor function is intact. No weakness, tremor or pronator drift. Coordination: Coordination is intact. Eueozh-Wnqe-Tuhdnu Test and Heel to Angel Test normal. Gait: Gait is intact. Gait normal. Medical Decision Making and ED Course MDM This is a 64-year-old male history as above presenting here today as a direct to CT after a fall onEliquis. He presents after mechanical fall secondary to chest pain that he experienced, chest pain is typical to his chronic chest pain that he is experiencing has had extensive workup in [facility] in the past. On arrival his vitals are stable. His head appears atraumatic. He has no midline spinal tenderness he does have paraspinal muscular tenderness. He has no abdominal pain. His lungsare clear bilaterally and he has a regular rate and rhythm. He has a non blanching petechiae rash over areas that are now scabbing secondary to his scabies that he experienced last week. Overall the rash is consistent with micro abrasions due to itching from his scabies that have scabbed over and now are healing, likely more red due to the fact that he is on Eliquis. Initial CT head and C-spine are without any acute abnormalities. It does show that he has a known 8 mm cavernoma in his frontal lobe, he is aware of this. He does not have any headache and his neuroexam is intact. C-collar removed. Back reassessed with no midline spinal tenderness. Differential diagnosis includes ACS, MSK related pain, I do not think this is dissection is pulses are equal. Given morphine for pain control withimprovement of pain. Ordered EKG, CBC, BMP, troponins, chest x-ray. EKG without any ischemic changes CBC and BMP overall unremarkable troponins trended from 6, 6, 8. Hemoglobin 9.4 this is close to his baseline. Reviewed prior imaging he had CT coronary done 2 years ago at that point his calcium score is 2. He did have ongoing pain while he was here given another dose of morphine. And Tylenol andTigan due to nausea. Overall well-appearing and does not have any more pain. I discussed with cardio logy to see if there is any further ACS workup that could be done. Based on calcium score to have repeat CT coronary would be unrevealing and unhelpful, less likely ACS related pain at this point. Discussed this with patient and he is agreeable to go home. He is from [place] will need assistance getting home, I discussed this with nursing who will coordinate. Discharged home with strict return precautions ED Course as of 12/06/24 1442 Rocio Dec 05, 20242222 Patient re-evaluated for cervical spine precautions. Cervical collar in place. CT of the cervical spine showed no evidence of fracture. On exam, patient denied any bony tenderness of the cervical spine on palpation. Patient had pain free ROM to 30 degrees in extension as well as flexion, 45 degrees in right and left rotation. Collar removed, no further need for cervical spine precautions. [EC] MonDec 06, 2024 0000 Paged cardiology [EC] 0013 Discussed with cardiology and they reviewed labs and imaging. Last Cta coronary showed calciumscore of 2, unlikely ACS [EC] ED Course User Index [EC] DO [place] Freeman : 1960 CSN: [id number] Shira Lopez DO Resident 12/06/24 1452 Cosigned by Aden Baldwin MD at 12/08/2024 2:54 AM EDT Associated attestation - Aden Baldwin MD - 12/08/2024 2:54 AM EDT I saw, examined and evaluated the patient, discussed the case with the resident/fellow/KANDI and agree with the findings and plan as documented in the record. Shukla elements, clarifications and/or exceptions are noted by me. I am responsible for a substantial portion of the medical decision making which included a review of the patient's condition, diagnostic tests, and approving the treatment plan. Care signed out pending cardiology recs [place] Barrientos : 1960 CSN: [id number] documented in this encounter Miscellaneous Notes * ED Observation - Aden Baldwin MD - 12/05/2024 11:46 PM EDT ED Observation Initiation No family history on file. Observation status on: 12/05/2024 11:46 PM Reason for observation: ED Obs Reason: Chest Pain Observation plan: Telemetry monitoring, ACS rule out Report given from: Aden Baldwin MD Report given to: Luz Barrientos : 1960 CSN: [id number] Aden Baldwin MD 12/05/24 2347 * ED Continuation of Care - Yonny Alonzo MD - 12/05/2024 11:42 PM EDT ED Continuation of Care 12/05/24 11:42 PM Sign out [address] Dr. Rand 64-year-old male with a past medical history significant for oww-jhtloem-jnnwyyjsc type 2 diabetes mellitus, hypertension, hyperlipidemia, seizure disorder, atrial fibrillation chronically anticoagulant Xarelto status post AICD placement, frequent admissions to the hospital for recurrent noncardiacchest pain/left-sided with recent cardiac testing performed which was nonrevealing, PONCE Chest pain-> CDU Diffuse petechia rash possibly from scabies or prior tx->not currently pruritic [facility] ED Course as of 12/09/24 1556 Rocio Dec 05, 2024 2223 Patient re-evaluated for cervical spine precautions. Cervical collar in place. CT of the cervical spine showed no evidence of fracture. On exam, patient denied any bony tenderness of the cervical spine on palpation. Patient had pain free ROM to 30 degrees in extension as well as flexion, 45 degrees in right and left rotation. Collar removed, no further need for cervical spine precautions. [EC] Fri Dec 06, 2024 0000 Paged cardiology [EC] 0013 Discussed with cardiology and they reviewed labs and imaging. Last Cta coronary showed calciumscore of 2, unlikely ACS [EC] ED Course User Index [EC] DO [place] Freeman : 1960 CSN: [id number] Cosigned by Shreyas Mann MD at 12/09/2024 11:49 PM EDT Associated attestation - Shreyas Mann MD - 12/09/2024 11:49 PM EDT I discussed the case with the resident/fellow/KANDI and agree with the findings and plan as documented in the record. If I performed an independent exam, it is documented by me. If the patient was received in sign-out from another physician/KANDI I discussed the case with the previous physician/KANDI. [place] Barrientos : 1960 CSN: [id number] * Emergency Department Information Exchange - SIMON - Mobile Interface - 12/05/2024 2:57 PM EDT [facility] NOTIFICATION 12/05/2024 08:56 NO [place] : 1960 [facility]'s patient encounter information: MRN:?[id number] Account Number:?[id number] Billing Account Number:?[id number] Criteria Met High-Utilizers Standard: 6 ED visits within 6 months Traveling Patients Standard: 3 Different EDs within 90 days Security and Safety No Security Events were found. ED Care Guidelines There are currently no ED Care Guidelines for this patient. Please check your facility's medical records system. Prescription Drug Data No Prescription Drug Data was found. E.D. Visit Count (12 mo.) Facility Visits [facility] 44 [facility] [place] 21 [facility] 7 [facility] 3 [facility] 3 [facility] ED 2 [facility] 2 [facility] 2 [facility] 1 Total 85 Note: Visits indicate total known visits. Recent Emergency Department Visit Summary Showing 10 most recent visits out of 85 in the past 12 months Date Facility [facility] Type Diagnoses or Chief Complaint [facility] GRISEL[facility] Emergency Dec 03, 2024 Yisel Cruz [place] Emergency Syncope and collapse Chest pain, unspecified Chest Pain [facility] Dec 01, 2024 Fadi Joel [place] Emergency Spontaneous ecchymoses Chest pain, unspecified Rash Loss of Consciousness chest pain Nov 30, 2024 Jean Claude Cruz [place] Emergency Chief Complaint: SYNCOPE Nov 28, 2024 Jean Claude Cruz [place] Emergency Chief Complaint: CHEST PAIN Nov 25, 2024 Yisel Cruz [place] Emergency Chest pain, unspecified Unspecified injury of head, initial encounter Chest Pain Fall GEN Nov 19, 2024 Jean Claude Cruz [place] Emergency 99. Chest pain, unspecified Nov 17, 2024 Hao Patel [place] Emergency Chief Complaint: CP,FROM SNF PER EMS Nov 10, 2024 Fadi Joel [place] Emergency Chest pain, unspecified Syncope and collapse Fall chest pain Nov 02, 2024 Yisel Cruz [place] Emergency Chest pain, unspecified Chest Pain gen-ems Recent Inpatient Visit Summary Date Facility [facility] Type Diagnoses or Chief Complaint Oct 30, 2024 [facility] Surgery 1. Traumatic subarachnoid hemorrhage with loss of consciousness of 30 minutes or less, initial encounter 2. Hemorrhagic disorder due to extrinsic circulating anticoagulants 3. Atherosclerotic heart disease of [place] coronary artery without angina pectoris 4. Paroxysmal atrial fibrillation 5. Hypothyroidism, unspecified 6. Personal history of nicotine dependence 7. Adverse effect of anticoagulants, initial encounter 8. Presence of automatic (implantable) cardiac defibrillator 9. Type 2 diabetes mellitus without complications 10. Morbid (severe) obesity due to excess calories May 07, 2024 [facility] Inpatient 99. Influenza due to other identified influenza virus with other respiratory manifestations Mar 05, 2024 [facility] General Medicine 99. Gastro-esophageal reflux disease without esophagitis 99. Tachycardia, unspecified 99. Unspecified asthma, uncomplicated 99. Type 2 diabetes mellitus without complications 99. Bipolar disorder, unspecified 99. Other specified anxiety disorders 99. Chronic kidney disease, unspecified 99. Thrombocytopenia, unspecified 99. Hypothyroidism, unspecified 99. Hyperlipidemia, unspecified Feb 07, 2024 [facility] General Medicine Chief Complaint: DIZZINESS ORTHOSTATIC HYPOTENSION Care Team Provider Specialty Phone Fax Service Dates SWEETIE YU NP E, CFNP Nurse Practitioner: Family Current KADEN BAKER M.D Internal Medicine Current LELE CLEARY NP Nurse Practitioner: Gerontology Current ED Physician, [facility] Current JUDITH NOLEN, PA-C Physician Sausage Stuffer: Medical Current ANABELLA CHEUNG MD Internal Medicine Current SPRING SHELBY D.O. Emergency Medicine Current JUWAN MOODY MD, MD Family Medicine Current DIANN WIGGINS MD Family Medicine Current ILDA WALDEN PCP OR, M.D. Internal Medicine Current ANABELLA TINOCO MD Internal Medicine Current DANIELE ADRIAN, MSN, NUMERICAL CONTROL LATHE OPERATOR Nurse Practitioner: Family Current SIGIFREDO TAYLOR NP, RACE CAR MECHANIC Nurse Practitioner: Family Current JESSICA BURNETTE, JEN BC, RN, MSN Nurse Practitioner Current ROXI JUÁREZ MD Family Medicine Current [employer] This patient has registered at the [facility] Emergency Department For more information visit: [email or web address] PLEASE NOTE: 1. Any care recommendations and other clinical information are provided as guidelines or for historical purposes only, and providers should exercise their own clinical judgment when providing care. 2. You may only use this information for purposes of treatment, payment or health care operations activities, and subject to the limitations of applicable [employer] Policies. 3. You should consult directly with the organization that provided a care guideline or other clinical history with any questions about additional information or accuracy or completeness of information provided. ? 2024 [employer] - [email or web address] documented in this encounter Plan of Treatment Not on file documented as of this encounter Procedures * Due to [place] state law, this organization might not be sharing negative HIV tests. Procedure Name Priority Date/Time Associated Diagnosis Comments TROPONIN T HIGH SENSITIVITY Timed 12/05/2024 8:48 PM EDT XR CHEST 2 VW STAT 12/05/2024 7:31 PM EDT TROPONIN T HIGH SENSITIVITY STAT 12/05/2024 6:36 PM EDT TROPONIN T HIGH SENSITIVITY STAT 12/05/2024 5:27 PM EDT CBC AUTO DIFFERENTIAL STAT 12/05/2024 5:27 PM EDT BASIC METABOLIC PANEL STAT 12/05/2024 5:[address] CERVICAL SPINE WO CONTRAST (TRAUMA) STAT 12/05/2024 3:[address] HEAD WO CONTRAST (TRAUMA) STAT 12/05/2024 3:03 PM EDT HEART & VASCULAR - SCANNED 12/05/2024 HEART & VASCULAR - SCANNED 12/05/2024 documented in this encounter Results * Due to [place] state law, this organization might not be sharing negative HIV tests. * Troponin T, High Sensitivity (12/05/2024 8:48 PM EDT) Troponin T High Sensitivity 8 <=21 ng/L 12/05/2024 9:28 PM EDT [facility] Comment: Br-Itgihovo-X level of 52 ng/L or higher at [...] be evaluated in line with the 4th [place] Definition of AMI. Troponin baseline and serial [...] peripheral vein / Unknown Venipuncture / Unknown 12/05/2024 8:48 PM EDT 12/05/2024 8:54 PM EDT us Aden Baldwin MD LAB BLOOD ORDERABLES Final R esult [facility] [address] [place] [address], [place] * XR Chest 2 vw. Standard (12/05/2024 7:31 PM EDT) Anatomical Region Laterality Modality Body Computed Radiogr aphy 12/05/2024 7:32 PM EDT Impressions 12/05/2024 7:32 PM EDT The lungs are hypoaerated with bibasilar atelectasis. There is no focal consolidation, pleural effusion or pneumothorax. The left-sided AICD and cardiomegaly are stable. The pulmonary vasculature is within normal limits. There are no focal osseus lesions. There is no pneumomediastinum or subdiaphragmatic free air. If this radiology report contains a blank impression section, it is an incomplete radiology report. Please contact the interpreting radiologist or applicable radiology division as soon as possible to obtain the completed interpretation. Workstation ID: [id number] Narrative 12/05/2024 7:32 PM EDT COMPARISON: 07/11/2024. FINDINGS AND Resulting Agency Comment [id number] Procedure Note Mack Cook MD - 12/05/2024 COMPARISON: 07/11/2024. FINDINGS AND IMPRESSION: The lungs are hypoaerated with bibasilar atelectasis. There is no focalconsolidation, pleural effusion or pneumothorax. The left-sided AICD andcardiomegaly are stable. The pulmonary vasculature is within normallimits. There are no focal osseus lesions. There is no pneumomediastinumor subdiaphragmatic free air. If this radiology report contains a blank impression section, it is anincomplete radiology report. Please contact the interpreting radiologistor applicable radiology division as soon as possible to obtain thecompleted interpretation. Workstation ID: [id number] us Aden Baldwin MD IMG XR PROCEDURES Final Resu lt * Repeat Troponin #1 (12/05/2024 6:36 PM EDT) Troponin T High Sensitivity 8 <=21 ng/L 12/05/2024 7:37 PM EDT [facility] Comment: Lw-Wtohdjrs-Q level of 52 ng/L or higher at [...] be evaluated in line with the 4th [place] Definition of AMI. Troponin baseline and serial [...] peripheral vein / Unknown Venipuncture / Unknown 12/05/2024 6:36 PM EDT 12/05/2024 6:53 PM EDT us Aden Baldwin MD LAB BLOOD ORDERABLES Final R esult [facility] [address] [place] [id number], * Troponin T, High Sensitivity (12/05/2024 5:27 PM EDT) Troponin T High Sensitivity 7 <=21 ng/L 12/05/2024 6:13 PM EDT [facility] Comment: Ta-Kgojmdxc-B level of 52 ng/L or higher at [...] be evaluated in line with the 4th [place] Definition of AMI. Troponin baseline and serial [...] peripheral vein / Unknown Venipuncture / Unknown 12/05/2024 5:27 PM EDT 12/05/2024 5:42 PM EDT us Aden Baldwin MD LAB BLOOD ORDERABLES Final R esult [facility] [address] [place] [address], * (ABNORMAL) BMP - Basic Metabolic Panel (12/05/2024 5:27 PM EDT) NA 140 135 - 145 mmol/L 12/05/2024 6:13 PM EDT [facility] K 4.5 3.5 - 5.3 mmol/L 12/05/2024 6:13 PM EDT [facility] Cl 107 98 - 107 mmol/L 12/05/2024 6:13 PM EDT [facility] CO2 23 22 - 32 mmol/L 12/05/2024 6:13 PM EDT [facility] BUN 19 7 - 23 mg/dL 12/05/2024 6:13 PM EDT [facility] Creatinine 1.26 0.60 - 1.30 mg/dL 12/05/2024 6:13 PM EDT [facility] Glucose 95 65 - 99 mg/dL 12/05/2024 6:13 PM EDT [facility] Calcium 8.1(L) 8.6 - 10.5 mg/dL 12/05/2024 6:13 PM EDT [facility] Anion Gap 10 5 - 15 12/05/2024 6:13 PM EDT [facility] eGFR 64 >=60 mL/min/1. 73m2 12/05/2024 6:13 PM EDT [facility] Comment:The estimated glomer ular filtration rate (eGFR) is calculated using a new formula developed by the NKF-ASN task force to eliminate race-based correction factors. The new formula uses serum/plasma creatinine, age, and gender to determine eGFR. A value below 60mls/min might indicate kidney disease and will be flagged. For additional information, see Damon et al, Am J Kidney Dis. 2021;79(2):268- 288, A Unifying Approach for GFR estimation: Recommendations of the NKF-ASN Task Force on Reassessing the Inclusion of Race in Diagnosing Kidney Disease . Blood Structure of peripheral vein / Unknown Venipuncture / Unknown 12/05/2024 5:27 PM EDT 12/05/2024 5:42 PM EDT us Aden Baldwin MD LAB BLOOD ORDERABLES Final R esult [facility] [address] [place] [id number], * (ABNORMAL) CBC Auto Differential (12/05/2024 5:27 PM EDT) WBC 4.9 3.8 - 10.8 10*3/uL 12/05/2024 6:03 PM EDT [facility] RBC 3.50(L) 4.20 - 5.80 10*6/uL 12/05/2024 6:03 PM EDT [facility] Hemoglobin 9.4(L) 13.2 - 17.1 g/dL 12/05/2024 6:03 PM EDT [facility] Hematocrit 29.7(L) 38.5 - 50.0 % 12/05/2024 6:03 PM EDT [facility] MCV 84.9 80.0 - 100.0 fL 12/05/2024 6:03 PM EDT [facility] MCH 26.9(L) 27.0 - 33.0 pg 12/05/2024 6:03 PM EDT [facility] MCHC 31.6(L) 32.0 - 36.0 g/dL 12/05/2024 6:03 PM EDT [facility] RDW 13.6 11.0 - 15.0 % 12/05/2024 6:03 PM EDT [facility] Platelets 92(L) 140 - 400 10*3/uL 12/05/2024 6:03 PM EDT [facility] MPV 11.6 7.5 - 12.5 fL 12/05/2024 6:03 PM EDT [facility] Neutrophil % 55.6 % 12/05/2024 6:03 PM EDT [facility] Immature Grans % 1.0(H) 0.0 - 0.9 % 12/05/2024 6:03 PM EDT [facility] Lymphocyte % 25.5 % 12/05/2024 6:03 PM EDT [facility] Monocyte % 11.8 % 12/05/2024 6:03 PM EDT [facility] Eosinophil % 5.5 % 12/05/2024 6:03 PM EDT [facility] Basophil % 0.6 % 12/05/2024 6:03 PM EDT [facility] Neutrophil # 2.72 1.50 - 7.80 10*3/uL 12/05/2024 6:03 PM EDT [facility] Immature Grans # 0.05(H) <=0.03 10*3/uL 12/05/2024 6:03 PM EDT [facility] Lymphocyte # 1.30 0.85 - 3.90 10*3/uL 12/05/2024 6:03 PM EDT [facility] Monocyte # 0.60 0.20 - 0.95 10*3/uL 12/05/2024 6:03 PM EDT [facility] Eosinophil # 0.30 0.02 - 0.50 10*3/uL 12/05/2024 6:03 PM EDT [facility] Basophil # <0.03 0.00 - 0.20 10*3/uL 12/05/2024 6:03 PM EDT [facility] nRBC % 0.0 /100 WBCs 12/05/2024 6:03 PM EDT [facility] nRBC # <0.01 <0.01 10*3/uL 12/05/2024 6:03 PM EDT [facility] Blood Structure of peripheral vein / Unknown Venipuncture / Unknown 12/05/2024 5:27 PM EDT 12/05/2024 5:37 PM EDT us Adne Baldwin MD LAB BLOOD ORDERABLES Final R esult [facility] [address] [place] [address], [place] * CT Cervical Spine WO Contrast (12/05/2024 3:03 PM EDT) Anatomical Region Laterality Modality Spine, C-spine Computed Tomogra phy 12/05/2024 3:16 PM EDT Impressions 12/05/2024 3:22 PM EDT No acute fracture or subluxation of the cervical spine. Advanced degenerative changes of the cervical spine, particularly at C3-C4 where there appears to be severe spinal canal stenosis and severe right and moderate to severe left neuroforaminal stenosis. If this radiology report contains a blank impression section, it is an incomplete radiology report. Please contact the interpreting radiologist or applicable radiology division as soon as possible to obtain the completed interpretation. Workstation ID: [id number] Up-to-date CT equipment and radiation dose reduction techniques were employed. CTDIvol: 27.0 - 59.9 mGy. DLP: 1851 mGy-cm. The following accession numbers are related to this dose report [id number]: [id number] Narrative 12/05/2024 3:22 PM EDT Examination: CT of cervical spine without contrast TECHNIQUE: Helical CT scan of the cervical spine was performed without intravenous administration with sagittal and coronal reformats. CLINICAL INFORMATION: Neck trauma. Suspect cervical spine fracture. COMPARISON: CT of the cervical spine from 03/15/2023. FINDINGS: Alignment of the cervical spine is maintained. Vertebral body heights are maintained. Configuration of the posterior cranial cervical junction is maintained. The prevertebral and paraspinal soft tissues are grossly maintained. No acute fracture of the cervical spine is identified. Diffuse idiopathic skeletal hyperostosis is noted. Multilevel degenerative changes are noted of the cervical spine, particularly at C3-C4 where there appears to be severe spinal canal stenosis and severe right and moderate to severe left neuroforaminal stenosis. Resulting Agency Comment [id number] Procedure Note Daron Garza MD - 12/05/2024 Examination: CT of cervical spine without contrast TECHNIQUE: Helical CT scan of the cervical spine was performed without intravenousadministration with sagittal and coronal reformats. CLINICAL INFORMATION: Neck trauma. Suspect cervical spine fracture. COMPARISON: CT of the cervical spine from 03/15/2023. FINDINGS: Alignment of the cervical spine is maintained. Vertebral body heights aremaintained. Configuration of the posterior cranial cervical junction ismaintained. The prevertebral and paraspinal soft tissues are grosslymaintained. No acute fracture of the cervical spine is identified. Diffuse idiopathic skeletal hyperostosis is noted. Multilevel degenerative changes are noted of the cervical spine,particularly at C3-C4 where there appears to be severe spinal canalstenosis and severe right and moderate to severe left neuroforaminalstenosis. IMPRESSION: No acute fracture or subluxation of the cervical spine. Advanced degenerative changes of the cervical spine, particularly at C3-U6aykbn there appears to be severe spinal canal stenosis and severe rightand moderate to severe left neuroforaminal stenosis. If this radiology report contains a blank impression section, it is anincomplete radiology report. Please contact the interpreting radiologistor applicable radiology division as soon as possible to obtain thecompleted interpretation. Workstation ID: [id number] Up-to-date CT equipment and radiation dose reduction techniques wereemployed. CTDIvol: 27.0 - 59.9 mGy. DLP: 1851 mGy-cm. The followingaccession numbers are related to this dose report [id number]: [id number] Gilbert Stearns MD IMG CT PROCEDURES Final Result * CT Head WO Contrast (12/05/2024 3:03 PM EDT) Anatomical Region Laterality Modality Head and Neck Computed Tomogra phy 12/05/2024 3:13 PM EDT Impressions 12/05/2024 3:16 PM EDT No acute intracranial abnormality is identified. 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 Old lacunar infarct in the right basal ganglia. Mild chronic small vessel ischemic changes. These findings remain stable. If this radiology report contains a blank impression section, it is an incomplete radiology report. Please contact the interpreting radiologist or applicable radiology division as soon as possible to obtain the completed interpretation. Workstation ID: [id number] Up-to-date CT equipment and radiation dose reduction techniques were employed. CTDIvol: 27.0 - 59.9 mGy. DLP: 1851 mGy-cm. The following accession numbers are related to this dose report [id number]: [id number] Narrative 12/05/2024 3:16 PM EDT EXAMINATION: CT of head without contrast TECHNIQUE: CT of the head performed without intravenous contrast. Multiplanar reformats and 3-D volume rendered images were created at the CT scanner at the time of the study under my concurrent supervision. CLINICAL INFORMATION: Head trauma. Moderate to severe. COMPARISON: CT of the head from 05/10/2022. FINDINGS: There is a small hyperdense focus in the white matter just anterior to the left frontal horn measuring up to 8 mm. This is unchanged from the prior head CT from 2022 an again may be compatible with a small cavernoma. No acute intracranial bleed is identified. No acute infarct is identified. An old lacunar infarct is present in the head of the right caudate nucleus. Mild chronic small vessel ischemic changes are present. The ventricles and extra-axial CSF spaces are maintained. No hydrocephalus. The cerebellar tonsils are normal in position. No fracture is identified. A small mucous retention cyst or polyp is present in the inferior left maxillary sinus. No significant inflammatory changes are identified in the paranasal sinuses. There is partial opacification of a few inferior right mastoid air cells. Resulting Agency Comment [id number] Procedure Note Daron Garza MD - 12/05/2024 EXAMINATION: CT of head without contrast TECHNIQUE: CT of the head performed without intravenous contrast. Multiplanarreformats and 3-D volume rendered images were created at the CT scanner atthe time of the study under my concurrent supervision. CLINICAL INFORMATION: Head trauma. Moderate to severe. COMPARISON: CT of the head from 05/10/2022. FINDINGS: There is a small hyperdense focus in the white matter just anterior to theleft frontal horn measuring up to 8 mm. This is unchanged from the priorhead CT from 2022 an again may be compatible with a small cavernoma. No acute intracranial bleed is identified. No acute infarct is identified.An old lacunar infarct is present in the head of the right caudatenucleus. Mild chronic small vessel ischemic changes are present. The ventricles and extra-axial CSF spaces are maintained. Nohydrocephalus. The cerebellar tonsils are normal in position. No fracture is identified. A small mucous retention cyst or polyp ispresent in the inferior left maxillary sinus. No significant inflammatorychanges are identified in the paranasal sinuses. There is partialopacification of a few inferior right mastoid air cells. IMPRESSION: No acute intracranial abnormality is identified. 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 Old lacunar infarct in the right basal ganglia. Mild chronic small vesselischemic changes. These findings remain stable. If this radiology report contains a blank impression section, it is anincomplete radiology report. Please contact the interpreting radiologistor applicable radiology division as soon as possible to obtain thecompleted interpretation. Workstation ID: [id number] Up-to-date CT equipment and radiation dose reduction techniques wereemployed. CTDIvol: 27.0 - 59.9 mGy. DLP: 1851 mGy-cm. The followingaccession numbers are related to this dose report [id number]: [id number] Gilbert Stearns MD [facility] PROCEDURES Final Result * HEART & VASCULAR - SCANNED (12/05/2024) Anatomical Region Laterality Modality Other us Onbase Scan Diane SCANNED PROCEDURES Final Resu lt * HEART & VASCULAR - SCANNED (12/05/2024) Anatomical Region Laterality Modality Other us Onbase Scan Diane SCANNED PROCEDURES Final Resu lt documented in this encounter Visit Diagnoses Diagnosis Chest pain, unspecified type- Primary documented in this encounter Administered Medications Inactive Administered Medications - up to 3 most recent administrations Medication Order MAR Action Action Date Dose Rate Site acetaminophen (TYLENOL) tablet 650 mg 650 mg, oral, Once, On Rocio 12/05/24 at 1655, 1 dose Given 12/05/2024 5:27 PM EDT 650 mg morphine injection 4 mg 4 mg, intravenous, Once, On Rocio 12/05/24 at 1655, 1 dose, Assess pain, sedation, and respiratory rate prior to each opioid administration. Given 12/05/2024 5:27 PM EDT 4 mg morphine injection 4 mg 4 mg, intravenous, Once, On Rocio 12/05/24 at 2255, 1 dose, Assess pain, sedation, and respiratory rate prior to each opioid administration. Given 12/05/2024 11:03 PM EDT 4 mg trimethobenzamide (TIGAN) injection 200 mg 200 mg, intramuscular, 3 times daily, First dose on Rocio 12/05/24 at 2100, Until Discontinued, Inject deep into upper outer quadrant of gluteal muscle. Given 12/05/2024 8:54 PM EDT 200 mg Right Gluteus Medius documented in this encounter Active and Recently Administered Medications Times are shown in EDT. Scheduled Medication Order 12/04/2024 12/05/2024 12/06/2024 acetaminophen (TYLENOL) tablet 650 mg (COMPLETED) 650 mg, oral, Once, On Rocio 12/05/24 at 1655, 1 dose 172 (Given - Provider: Mary Carmen Lerner RN) morphine injection 4 mg (COMPLETED) 4 mg, intravenous, Once, On Rocio 12/05/24 at 1655, 1 dose, Assess pain, sedation, and respiratory rate prior to each opioid administration. 172 (Given - Provider: Mary Carmen Lerner RN) morphine injection 4 mg (COMPLETED) 4 mg, intravenous, Once, On Rocio 12/05/24 at 2255, 1 dose, Assess pain, sedation, and respiratory rate prior to each opioid administration. 2302 (Given - Provider: Mary Carmen Lerner RN) trimethobenzamide (TIGAN) injection 200 mg 200 mg, intramuscular, 3 times daily, First dose on Rocio 12/05/24 at 2100, Until Discontinued, Inject deep into upper outer quadrant of gluteal muscle. 2053 (Given - Provider: Dasia Zhu RN) documented in this encounter Care Teams Craft Coordinator Relationship Specialty Start Date End Date Anabella Solomon MD MPH [address] [place] [address] PCP - [facility] Medicine 12/05/24 documented as of this encounter
--- NOTE | 2024-12-10 09:44 | ECG_ITS ---
Test Reason : CP Blood Pressure : */* mmHG Vent. Rate : 86 BPM Atrial Rate : 86 BPM P-R Int : 232 ms QRS Dur : 168 ms QT Int : 422 ms P-R-T Axes : 59 107 52 degrees QTcB Int : 504 ms Sinus rhythm with 1st degree A-V block with occasional Premature ventricular complexes Right bundle branch block Abnormal ECG When compared with ECG of 17-Nov-2024 03:25, Premature ventricular complexes are now Present NE interval has increased Referred By: Tanisha Prescott Electronically Signed By: PATO ROMAN MD
--- NOTE | 2024-12-10 09:46 | ED.GENADULT ---
HPI - General Adult General Chief complaint: Chest Pain Stated complaint: LT SIDED CP, LT ARM/JAW PAIN PER EMS Time Seen by Provider: 12/10/24 09:43 Source: patient, EMS, RN notes reviewed and old records reviewed Mode of arrival: EMS Limitations: no limitations History of Present Illness ED Provider: Genie HPI narrative: Patient is a 64-year-old male with history of tetralogy of Fallot, tachybradycardia syndrome with AICD in place, orthostatic hypotension, somatic symptom disorder, hypertension, hyperlipidemia, COPD, frequent falls presenting to the emergency department with complaint of chest pain which began around 30 minutes prior to arrival. Also reports petechial rash to extremities and trunk for the past 3 weeks, states his platelets have been running low. Denies any palpitations, dyspnea, dizziness or lightheadedness. Denies any episodes of syncope. Denies any recent weight gain or pedal edema. States that he was on his way to his PCP office when the chest pain began and he called 911. MD complaint: chest pain Onset (ago): minute(s) Related Data Home Medications ?Medication ?Instructions ?Recorded ?Confirmed albuterol sulfate 90 mcg/actuation 2 puff inhalation Q4H PRN 08/19/22 01/01/23 aerosol inhaler Shortness Of Breath hydroxyzine pamoate 50 mg capsule 50 mg PO BID Anxiety / Nausea 08/19/22 01/01/23 nitroglycerin 0.4 mg sublingual 0.4 mg sublingual Q5M PRN Chest 08/19/22 01/01/23 tablet Pain sotalol 80 mg tablet 80 mg PO BID 08/19/22 01/01/23 tamsulosin 0.4 mg capsule 0.4 mg PO BEDTIME 08/19/22 01/01/23 levothyroxine 75 mcg tablet 75 mcg PO DAILY@0600 09/08/22 01/01/23 risperidone 1 mg tablet 1.5 mg PO BEDTIME 09/08/22 01/01/23 rivaroxaban 20 mg tablet (Xarelto) 20 mg PO DAILY@1800 09/08/22 01/01/23 acetaminophen 325 mg tablet 650 mg PO Q4H PRN Fever Or Pain 01/01/23 01/01/23 aluminum-mag hydroxide-simethicone 10 ml PO Q4H PRN Constipation 01/01/23 01/01/23 400 mg-400 mg-40 mg/5 mL oral susp (Mylanta Maximum Strength) aspirin 81 mg tablet,delayed 81 mg PO DAILY 01/01/23 01/01/23 release bisacodyl 5 mg tablet,delayed 10 mg PO BEDTIME PRN Constipation 01/01/23 01/01/23 release calcium carbonate (Tums) 300 mg PO Q4H PRN Dyspepsia 01/01/23 01/01/23 cyclobenzaprine 5 mg tablet 5 mg PO TID PRN muscle spasms 01/01/23 01/01/23 escitalopram oxalate 20 mg tablet 20 mg PO DAILY 01/01/23 01/01/23 gabapentin 300 mg capsule 300 mg PO BID 01/01/23 01/01/23 magnesium hydroxide 400 mg/5 mL 30 ml PO DAILY PRN Constipation 01/01/23 01/01/23 oral suspension melatonin 10 mg tablet 10 mg PO BEDTIME PRN Insomnia 01/01/23 01/01/23 metformin 500 mg tablet 500 mg PO DAILY 01/01/23 01/01/23 ondansetron HCl 4 mg tablet 4 mg PO Q4H PRN nausea and 01/01/23 01/01/23 vomitting quetiapine 100 mg tablet 100 mg PO BEDTIME 01/01/23 01/01/23 sumatriptan succinate 50 mg tablet 50 mg PO BID PRN migraines 01/01/23 01/01/23 tramadol 50 mg tablet 50 mg PO Q6H PRN migraines 01/01/23 01/01/23 trazodone 50 mg tablet 25 mg PO BEDTIME 01/01/23 01/01/23 hydroxyzine HCl 50 mg tablet 50 mg PO BEDTIME 12/26/23 trazodone 150 mg tablet 150 mg PO BEDTIME 12/26/23 Previous Rx's ?Medication ?Instructions ?Recorded isosorbide mononitrate 30 mg 30 mg PO DAILY #0 tabs 09/22/21 tablet,extended release 24 hr ezetimibe 10 mg tablet 10 mg PO DAILY 7 days #7 tabs 08/24/22 oxycodone 5 mg tablet 5 mg PO BID PRN pain #4 tabs 01/01/23 prednisone 20 mg tablet 20 mg PO DAILY #5 tabs 01/01/23 cyclobenzaprine 10 mg tablet 10 mg PO TID PRN muscle spasm #10 05/30/24 tabs acetaminophen 325 mg capsule 325 mg PO Q4H PRN pain #30 caps 09/30/23 (Tylenol) lidocaine 5 % topical patch 1 patch topical DAILY PRN pain #15 09/30/23 ea meclizine 25 mg tablet 25 mg PO DAILY PRN dizziness #14 09/30/23 tabs miscellaneous medical supply #1 ea 12/26/23 naloxone 4 mg/actuation nasal 4 mg intranasal Q2M PRN opioid 12/26/23 spray (Narcan) overdose #2 ea oxycodone-acetaminophen 5 mg-325 1 tab PO Q8H PRN pain (scale score 12/26/23 mg tablet 7-10) 7 days #20 tabs Allergies Allergy/AdvReac Type Severity Reaction Status Date / Time aripiprazole (From Abilify) Allergy Severe Rash Verified 12/10/24 09:51 peas Allergy Severe HIVES Verified 12/10/24 09:51 atorvastatin (From Lipitor) Allergy Intermediate Hives Verified 12/10/24 09:51 levetiracetam Allergy Itching Verified 12/10/24 09:51 bee pollen (bee stings) AdvReac Severe Anaphylaxis Verified 12/10/24 09:51 PMFSH Past Medical History Medical History Somatoform disorder Depression with suicidal ideation Sleep apnea Seizure RBBB Cardiac defibrillator in place Artificial cardiac pacemaker Hyperthyroidism Hyperlipidemia History of ETOH abuse Hypertension GERD (gastroesophageal reflux disease) Diabetes Developmental delay, mild Depression COPD (chronic obstructive pulmonary disease) Asthma Anxiety Surgical History History of cardiac cath Social History Social History Household Members: Other Household Members Other:: 2 roommates Housing: Apartment Housing Other:: Sober House Do you presently have visiting nurse or other home services: No Alcohol intake: former Patient Tobacco Use Status: Never used Tobacco Tobacco use type: Cigarette Smoked in Last 30 Days: No Second Hand Smoke Exposure: No Use of substances other than those prescribed or required for medical reasons: No Substance Use Type: Former Substance User, Prescription Drugs and Caffiene Advance Directives: Yes Advance Directives on File: Yes Advance Directives Date on File: 11/12/24 service: No Current occupational status: disabled Sexual orientation: Decline to Answer Physical Exam ED Vital Signs: Vital Signs - 24 hr 12/10/24 09:48 12/10/24 10:00 12/10/24 12:46 Temperature 98.1 F 98.2 F 98.3 F Pulse Rate 82 85 76 Respiratory Rate 18 16 18 Blood Pressure 100/65 100/64 100/80 Pulse Oximetry 98 98 Oxygen Delivery Method Room Air Room Air Room Air 12/10/24 13:01 Temperature Pulse Rate 75 Respiratory Rate 20 Blood Pressure 117/66 Pulse Oximetry 100 Oxygen Delivery Method Room Air BMI result Body Mass Index 35.5 Medications Administered Discontinued Medications Generic Name Dose Route Start Last Admin Trade Name Freq PRN Reason Stop Dose Admin Acetaminophen 975 mg 12/10/24 09:58 12/10/24 10:34 Acetaminophen 325 Mg Tablet PO 12/10/24 09:59 975 mg ONCE ONE Administration Al Hydroxide/Mg Hydroxide 30 ml 12/10/24 12:51 12/10/24 13:03 Magnesium Hydrox/Alum Hydrox 30 Ml Oral.Susp PO 12/10/24 12:52 30 ml ONCE ONE Administration Lidocaine HCl 15 ml 12/10/24 12:51 12/10/24 13:03 Lidocaine Hcl Viscous 2 % 15 Ml Solution MUCOUS MEM 12/10/24 12:52 15 ml ONCE ONE Administration Medical Decision Making Medical Decision Making [facility] Narrative: Patient is a 64-year-old male with history of tetralogy of Fallot, tachybradycardia syndrome with AICD in place, orthostatic hypotension, somatic symptom disorder, hypertension, hyperlipidemia, COPD, frequent falls presenting to the emergency department with complaint of chest pain which began around 30 minutes prior to arrival. On exam patient is awake, in no acute distress, A+Ox3, VS WNL, afebrile, normal neurological exam without focal deficits, physical exam findings as above. Given reported symptoms and physical exam findings, initial differential includes but is not limited to musculoskeletal pain, GERD, thrombocytopenia. Less likely ACS as he is well appearing, presents frequently for similar complaints, but will check EKG and troponin x2. Labs notable for thrombocytopenia which appears to be at baseline, negative troponin x 2. Feel he is stable for discharge home at this time for outpatient follow up. Return precautions discussed. Patient verbalized understanding of and agreement with plan. Differential Diagnosis Differential Diagnoses: The differential diagnosis associated with the presentation includes as per [facility] Admission/Observation Consideration of admission/observation: Escalation of care including admission/observation considered Patient would have been admitted to the hospital had their clinical presentation warranted hospital admission. Lab Data [facility] Lab Attestation statement: I reviewed the patient's lab results. as per [facility] 12/10/24 10:11 12/10/24 10:11 Labs: Lab Results 12/10/24 12/10/24 Range/Units 10:11 13:05 WBC 4.5 L (4.8-10.8) X10*3/uL RBC 3.64 L (4.60-5.80) X10*6/uL Hgb 9.9 L (14.0-18.0) g/dl Hct 30.3 L (42.0-52.0) % MCV 83.2 (80.0-98.0) fL MCH 27.2 (27.0-33.0) pg MCHC 32.7 (31.0-36.0) g/dl RDW 13.9 (11.0-16.0) % Plt Count 88 L (160-400) X10*3/uL MPV 11.4 (9.4-12.4) fL Immature Gran % (Auto) 1.5 H (0.0-0.4) % Neut % (Auto) 63.2 (45-73) % Lymph % (Auto) 17.7 L (20-40) % [place] % (Auto) 10.0 (2-11) % Eos % (Auto) 6.9 H (0-4) % Baso % (Auto) 0.7 (0-2) % Lymph # (Auto) 0.8 L (1.2-4.9) X10*3/uL [place] # (Auto) 0.5 (0.1-1.2) X10*3/uL Eos # (Auto) 0.3 (0.0-0.4) X10*3/uL Baso # (Auto) 0.0 (0.0-0.2) X10*3/uL Abs Immat Gran (auto) 0.07 H (0.00-0.03) X10*3/uL Absolute Neuts (auto) 2.9 (2.0-8.3) x10*3/uL Absolute Nucleated RBC 0.000 (0.0-0.012) X10*3/uL Nucleated RBC % (auto) 0.0 (0.0-0.2) /100WBC PT 13.2 H (10.9-12.4) SEC INR 1.2 H (0.9-1.1) Sodium 144 (135-145) mmol/L Potassium 4.5 (3.3-5.1) mmol/L Chloride 111 H (96-108) mmol/L Carbon Dioxide 26 (22-29) mmol/L Anion Gap 12 (12-20) BUN 21 H (9-16) mg/dL Creatinine 1.23 (0.5-1.4) mg/dL Estim Creat Clear Calc 75.8 Estimated GFR 60 Random Glucose 164 H (60-115) mg/dL Calcium 7.8 L (8.4-10.2) mg/dL Magnesium 2.1 (1.6-2.6) mg/dL Total Bilirubin 0.4 (0.0-1.0) mg/dL AST 18 (5-37) U/L ALT 14 (0-40) U/L Alkaline Phosphatase 59 (39-117) U/L Troponin I High Sens < 2.7 < 2.7 (<3.5-35.0) ng/L Total Protein 6.0 L (6.5-8.0) g/dL Albumin 3.9 (3.5-5.0) g/dL Independent Interpretation I performed an independent interpretation of an: EKG (sinus rhythm with 1st degree AV block rate 86 bpm, prolonged QTc, RBBB) External Record Review External record reviewed: Inpatient record, Office record and Outpatient record Discharge Plan Discharge Clinical Impression: Atypical chest pain Patient Disposition: Home, Self-Care Instructions: Chest Wall Pain (ED), Chest Pain (DC), Noncardiac Chest Pain (ED) Additional Instructions: You were evaluated in the emergency department today for chest pain. Your evaluation has shown no signs of medical conditions requiring emergent intervention at this time, however we recommend that you follow-up with your primary care physician or your healthcare science specialist for further testing as an outpatient. Please schedule an appointment for follow-up with your primary care physician as soon as possible. Return to the emergency department if you experience worsening or uncontrolled chest pain, shortness of breath, lightheadedness, feeling faint, loss of consciousness, nausea, vomiting, or any other concerning symptoms. Prescriptions: No Action isosorbide mononitrate 30 mg Tablet Extended Release 24 Hr 30 mg PO DAILY Qty: 0 0RF Protocol: Hold for SBP< HOLD for SBP < : 90 sotalol 80 mg tablet 80 mg PO BID hydroxyzine pamoate 50 mg capsule 50 mg PO BID tamsulosin 0.4 mg capsule 0.4 mg PO BEDTIME nitroglycerin 0.4 mg tablet, sublingual 0.4 mg sublingual Q5M PRN (Reason: Chest Pain) albuterol sulfate 90 mcg/actuation HFA aerosol inhaler 2 puff inhalation Q4H PRN (Reason: Shortness Of Breath) ezetimibe 10 mg Tablet 10 mg PO DAILY 7 Days Qty: 7 0RF risperidone 1 mg tablet 1.5 mg PO BEDTIME Xarelto 20 mg tablet 20 mg PO DAILY@1800 levothyroxine 75 mcg tablet 75 mcg PO DAILY@0600 acetaminophen 325 mg tablet 650 mg PO Q4H PRN (Reason: Fever Or Pain) metformin 500 mg tablet 500 mg PO DAILY trazodone 50 mg tablet 25 mg PO BEDTIME ondansetron HCl 4 mg Tablet 4 mg PO Q4H PRN (Reason: nausea and vomitting) sumatriptan succinate 50 mg tablet 50 mg PO BID PRN (Reason: migraines) Rx Instructions: wait 2 hours between doses calcium carbonate [Tums] 300 mg (750 mg) Tablet,Chewable 300 mg PO Q4H PRN (Reason: Dyspepsia) aspirin 81 mg tablet,delayed release (DR/EC) 81 mg PO DAILY tramadol 50 mg tablet 50 mg PO Q6H PRN (Reason: migraines) quetiapine 100 mg tablet 100 mg PO BEDTIME magnesium hydroxide 400 mg/5 mL Suspension 30 ml PO DAILY PRN (Reason: Constipation) gabapentin 300 mg capsule 300 mg PO BID bisacodyl 5 mg Tablet,Delayed Release (Dr/Ec) 10 mg PO BEDTIME PRN (Reason: Constipation) alum-mag hydroxide-simeth [Mylanta Maximum Strength] 400-400-40 mg/5 mL Suspension 10 ml PO Q4H PRN (Reason: Constipation) escitalopram oxalate 20 mg Tablet 20 mg PO DAILY cyclobenzaprine 5 mg tablet 5 mg PO TID PRN (Reason: muscle spasms) melatonin 10 mg Tablet 10 mg PO BEDTIME PRN (Reason: Insomnia) prednisone 20 mg tablet 20 mg PO DAILY Qty: 5 0RF oxycodone 5 mg tablet 5 mg PO BID PRN (Reason: pain) Qty: 4 0RF Rx Instructions: Partial Fill upon patient request. cyclobenzaprine 10 mg tablet 10 mg PO TID PRN (Reason: muscle spasm) Qty: 10 0RF meclizine 25 mg tablet 25 mg PO DAILY PRN (Reason: dizziness) Qty: 14 0RF lidocaine 5 % adhesive patch,medicated 1 patch topical DAILY PRN (Reason: pain) Qty: 15 0RF Rx Instructions: leave on most painful area for up to 12 hrs acetaminophen [Tylenol] 325 mg capsule 325 mg PO Q4H PRN (Reason: pain) Qty: 30 0RF trazodone 150 mg tablet 150 mg PO BEDTIME hydroxyzine HCl 50 mg tablet 50 mg PO BEDTIME (DME) miscellaneous medical supply Misc See Rx Instructions .Route Qty: 1 0RF Rx Instructions: Quad cane use As directed oxycodone-acetaminophen 5-325 mg tablet 1 tab PO Q8H PRN (Reason: pain (scale score 7-10)) 7 Days Qty: 20 0RF Rx Instructions: Partial Fill upon patient request. naloxone [Narcan] 4 mg/actuation spray,non-aerosol 4 mg intranasal Q2M PRN (Reason: opioid overdose) Qty: 2 0RF Rx Instructions: spray 1 dose into ONE nostril; alternate nostrils w each dose until help arrives Print Language: Occitan
[2024-12-10 09:48] VITALS: BP 100/65; BP 126/72; PULSE 82; PULSE 90; RESP 18; TEMP 36.7; O2SAT 100; O2SAT 98; BMI 35.5
[2024-12-10 10:00] VITALS: BP 100/64; PULSE 85; RESP 16; TEMP 36.8; O2SAT 98
[2024-12-10 10:17] LABS: MANUAL DIFF FLAG NO
[2024-12-10 10:19] LABS: Hematocrit 30.3 % (42.0-52.0); Hemoglobin 9.9 g/dl (14.0-18.0); Imm Gran Abs Auto 0.07 X10*3/uL (0.00-0.03); Imm Gran Pct Auto 1.5 % (0.0-0.4); Lymphocytes Absolute Auto 0.8 X10*3/uL (1.2-4.9); Mean Corpuscular HGB Conc 32.7 g/dl (31.0-36.0); Mean Corpuscular Hemoglobin 27.2 pg (27.0-33.0); Mean Corpuscular Volume 83.2 fL (80.0-98.0); NRBC Abs Auto 0.000 X10*3/uL (0.0-0.012); NRBC Pct Auto 0.0 /100WBC (0.0-0.2); Platelet Count 88 X10*3/uL (160-400); Red Blood Count 3.64 X10*6/uL (4.60-5.80); White Blood Count 4.5 X10*3/uL (4.8-10.8)
[2024-12-10 10:32] LABS: INTERNATIONAL NORM RATIO 1.2 (0.9-1.1); Prothrombin Time 13.2 SEC (10.9-12.4)
[2024-12-10 10:38] LABS: Alanine Aminotransferase 14 U/L (0-40); Albumin Level 3.9 g/dL (3.5-5.0); Alkaline Phosphatase 59 U/L (39-117); Anion Gap 12 (12-20); Aspartate Amino Transferase 18 U/L (5-37); Blood Urea Nitrogen 21 mg/dL (9-16); Calcium 7.8 mg/dL (8.4-10.2); Carbon Dioxide 26 mmol/L (22-29); Chloride 111 mmol/L (96-108); Creatinine Clr Calc Pharmacy 75.8; Estimated Glomerular Filt Rate 60; Magnesium 2.1 mg/dL (1.6-2.6); Potassium 4.5 mmol/L (3.3-5.1); Sodium 144 mmol/L (135-145); Total Protein 6.0 g/dL (6.5-8.0)
[2024-12-10 10:47] LABS: Troponin-I High Sensitivity < 2.7 ng/L (<3.5-35.0)
--- NOTE | 2024-12-10 10:47 | PC.NURSE ---
Pt was on his way to see a doctor about his rash. He says it might itch a little. Small, wide spread red/purple spots on all extremities, torso. Chest pain still 10/10. He says nothing really helps except maybe morphine. He says he will wait and see how the tylenol helps. Ambulating to bathroom without assistance.
[2024-12-10 10:54] VITALS: PULSE 83
--- OUTSIDE RECORDS SUMMARY | 2024-12-10 11:42 | XMS_ITS | Encounter Summary ---
Author Organization [employer] Address [address] [place] [address] 7 [place] [address] Care Team Providers Care Camp Cook Name Role Phone Lauren Whittaker MD Primary Care Pro vider Encounter Details Date Type Department Care Team ([facility] Contact Info) Description 10/09/2024 Orders Only [facility] [address] [place] [address] Provider, MD Aaron Social History Tobacco Use Types Packs/Day Years [...] Date Recorded Patient Health Questionnaire-9 Score 0 08/22/2024 Patient Health Questionnaire-9 Score 0 08/22/2024 Last PHQ-9: Questionnaire Data Not on file 0 08/22/2024 Housing Stability Answer Date Recorded What is [...] Date Recorded Patient Health Questionnaire-2 Score 0 08/22/2024 Internet Access Answer Date Recorded Internet Access [...] Priority Date/Time Associated Diagnosis Comments CT HEAD WO CONTRAST Routine 10/09/2024 2:39 PM EDT documented in this encounter Results * CT Head w/o Contrast (10/09/2024 2:39 PM EDT) Anatomical Region Laterality Modality Head, Neck Computed Tomogra phy us Historical Provider MD GEORGE CT PROCEDURES Final R esult documented in this encounter Visit Diagnoses Not on filedocumented in this encounter Additional Health Concerns Assessment Noted Time PHQ-9 Depression Total Score: 0 08/23/19 25 2:30 PM EDT documented as of this encounter Care Teams Camp Cook Relationship Specialty Start Date End Date Lauren Whittaker MD [address] [place] [id number] PCP - General Internal Medicine 11/15/23 [facility] 03/08/24 12/02/24 [facility] 10/11/24 documented as of this encounter
--- OUTSIDE RECORDS SUMMARY | 2024-12-10 11:42 | XMS_ITS | Encounter Summary ---
Author Organization [employer] Address [address] [place] [address] [place] [address] Care Team Providers Care Boilermaker Welder Name Role Phone Lauren Whittaker MD Primary Care Pro vider Encounter Details Date Type Department Care Team ([facility] st Contact Info) Description 03/20/2024 Telephone [facility] MEDICINE [address] [place], [place] [phone] Lauren Whittaker MD [address] [place] [address] Social History Tobacco Use Types Packs/Day Years [...] documented as of this encounter Care Teams Boilermaker Welder Relationship Specialty Start Date End Date Lauren Whittaker MD [address] [place] [address] PCP - General Internal Medicine 11/15/23 [facility] 03/08/24 12/02/24 [facility] 10/11/24 documented as of this encounter
--- OUTSIDE RECORDS SUMMARY | 2024-12-10 11:42 | XMS_ITS | Encounter Summary ---
Author Organization [employer] Address [address] [place] [address] [place] [address] Care Team Providers Care Machine Tool Dresser Name Role Phone Lauren Whittaker MD Primary Care Pro vider Encounter Details Date Type Department Care Team ([facility] st Contact Info) Description 01/30/2024 Telephone [facility] MEDICINE [address] [place], [place] [phone] Ioana Antonio, PharmD [address] [place] [address] Social History Tobacco Use Types Packs/Day Years [...] 12:56 PM EST Tc from Pat with [facility] cardiology . States is returning a missed call. Best contact # [phone]. * Telephone Encounter - Ioana Antonio PharmD - 01/30/2024 3:10 PM EDT Please assist in obtaining discharge paperwork from [facility] Patient was discharged on 01/27/2024, and [facility] recent discharge (exact date unknown). Thank you documented in this encounter Plan of Treatment Not on file documented as of this encounter Visit Diagnoses Not on filedocumented in this encounter Additional Health Concerns Assessment Noted Time PHQ-9 Depression Total Score: 0 11/15/19 9:31 AM EDT documented as of this encounter Care Teams Machine Tool Dresser Relationship Specialty Start Date End Date Lauren Whittaker MD [address] [place] [address] PCP - General Internal Medicine 11/15/23 [facility] 03/08/24 12/02/24 [facility] 10/11/24 documented as of this encounter
--- OUTSIDE RECORDS SUMMARY | 2024-12-10 11:43 | XMS_ITS | Encounter Summary ---
Author Organization [employer] Address [address] [place] [address] [place] [address] Care Team Providers Care Gps Navigation Installer Name Role Phone Lauren Whittaker MD Primary Care Pro vider Reason for Visit * Reason Onset Date Comments No Show 12/05/2024 Encounter Details Date Type Department Care Team ([facility] st Contact Info) Description 12/05/2024 Telephone [facility] MEDICINE [address] [place], [place] [phone] Lauren Whittaker MD [address] [place] [address] No Show Social History Tobacco Use Types Packs/Day Years [...] encounter Miscellaneous Notes * Telephone Encounter - Kinza Valladares - 12/05/2024 3:19 PM EDT Patient no showed to hospital f/u on 12/05/2024. documented in this encounter Plan of Treatment Not on file documented as of this encounter Visit Diagnoses Not on filedocumented in this encounter Additional Health Concerns Assessment Noted Time PHQ-9 Depression Total Score: 0 08/23/19 2:30 PM EDT documented as of this encounter Care Teams Gps Navigation Installer Relationship Specialty Start Date End Date Lauren Whittaker MD [address] [place] [address] PCP - General Internal Medicine 11/15/23 [facility] 10/11/24 documented as of this encounter
--- OUTSIDE RECORDS SUMMARY | 2024-12-10 11:43 | XMS_ITS | Encounter Summary ---
Author Organization [employer] Address [address] [facility] [address] [place] [address] Care Team Providers Care Rn Referral Name Role Phone Lauren Whittaker MD Primary Care Pro vider Encounter Details Date Type Department Care Team ([facility] [address] Contact Info) Description 06/03/[address] [phone] Provider, Not In System Social [...] us know they sent this patient to [facility] for chest pains. (He does not appear to be one of ours) documented in this encounter Plan of Treatment Not on file documented as of this encounter Visit Diagnoses Not on filedocumented in this encounter Additional Health Concerns Assessment Noted Time PHQ-9 Depression Total Score: 12 025 12:41 PM EST documented as of this encounter Care Teams Rn Referral Relationship Specialty Start Date End Date Lauren Whittaker MD [address] [place] [address] PCP - General Internal Medicine 11/15/23 [facility] 03/08/24 12/02/24 [facility] 10/11/24 documented as of this encounter
--- OUTSIDE RECORDS SUMMARY | 2024-12-10 11:43 | XMS_ITS | Encounter Summary ---
Author Organization [employer] Address [address] [place] [address] 7t [place] [address] Care Team Providers Care Admissions Coordinator Name Role Phone Lauren Whittaker MD Primary Care Pro vider Reason for Visit * Reason Comments Med Refill Encounter Details Date Type Department Care Team ([facility] st Contact Info) Description 06/27/2024 Refill [facility] MEDICINE [address] [place], [place] [phone] Gretel Sosa, ANP [address] [place] [address] Social History Tobacco Use Types Packs/Day Years [...] documented as of this encounter Care Teams Admissions Coordinator Relationship Specialty Start Date End Date Lauren Whittaker MD [address] [place] [id number] PCP - General Internal Medicine 11/15/23 [facility] 03/08/24 12/02/24 [facility] 10/11/24 documented as of this encounter
--- OUTSIDE RECORDS SUMMARY | 2024-12-10 11:43 | XMS_ITS | Clinical Summary ---
Author Organization [facility] Address [address] [place] [id number] Care Team Providers Care Slitter Scorer Name Role Phone Lilliam Amaridavin ROSS Primary Care Provider [phone] Allergies Active Allergy Reactions Criticality Noted Date [...] Zoster (Shingles) Vaccine (1 of 2) 01/26/2012 Influenza Vaccine 11/01/2024 02/17/2022, , 04/17/2018, Additional history exists COVID-19 Vaccine ( season) 2024 06/03/2020, 05/06/2020 RSV Vaccine 60 years and older and Patients (1 - 1-dose 75+ series) 2037 Hemoglobin A1C Discontinued 01/22/2023, 12/03, 12/06/2020, Additional history exists Hepatitis B Vaccines Aged Out No long er eligible based on patient's age to complete this topic Medical Devices Implanted Type Area Research Chief Engineer Device Identifier Shelf Expiration Date Model / Serial / Lot Icd ICD [facility] 2411-36c Vinicio Nelson [id number] Implanted:05/04 (Quantity not on file) ICD [facility] [employer] 2411-36C VINICIO NELSON / [id number] / Pacemaker Pacemaker Procedures Procedure Name Priority Date/Time Associated Diagnosis Comments HEMOGLOBIN A1C WITH ESTIMATED AVERAGE GLUCOSE STAT 01/22/2023 7:00 AM EDT from Last 3 Months or Most Recently Relevant to Health Maintenance Results * (ABNORMAL) Hemoglobin A1c with Estimated Average Glucose (01/22/2023 7:00 AM EDT) Hemoglobin A1C 7.1(H) <5.7 % 01/22/2023 8:43 AM EDT [facility] Comment: A1c% Interpretation 5.7 - 6.0 Increase risk of diabetes 6.1 - 6.4 Higher risk of diabetes > or = 6.5 Consistent with diabetes Diabetes Care, 33(Supp 1):S1-S61, 2010 Estimated Average Glucose 157 mg/dL 01/22/2023 8:43 AM EDT [facility] Blood specimen (specimen) Blood specimen / Unknown 01/22/2023 7:00 AM EDT 01/22/2023 7:33 AM EDT Christophe Bullard MD LAB BLOOD ORDERABLES Fi nal Result HOSPITAL LAB See Below [address] [address] from Last 3 Months or Most Recently Relevant to Health Maintenance [facility] MEDICARE OUT OF NETWORK [facility] MEDIC[facility] OUT OF NETWORK Advance Directives [...] 2:18 PM 06/06/2018 4:09 PM Care Teams Slitter Scorer Relationship Specialty Start Date End Date Amari Vyas DO [address] [place] [address] PCP - General Internal Medicine 01/21/23
--- OUTSIDE RECORDS SUMMARY | 2024-12-10 11:43 | XMS_ITS | Clinical Summary ---
Author Organization [facility] Address [facility] [address] Care Team Providers Care Collar Turner Name Role Phone Unknown Primary Care Provider [...] Directive 2017 Covid-19 Vaccine (1 - season) 2024 Influenza (Flu) vaccine (1 o f 1 - Influenza standard series) 12/02/2024 Medical Devices Implanted Type Area Medical Insurance Clerk Device Identifier Shelf Expiration Date Model / Serial / Lot Defibrillato r-06/12/2008 Implanted:Qt y: 1 on 06/12/2008 Defibrillator Left: Chest [facility] - [id number] [facility] 2207-[address] AVILA / [id number] / Lead- 7 Implanted:Qt y: 1 on 05/05/[address] [facility] - [id number] [facility] 1688TC TENDRIL SDX / [id number] / Description:RA LEAD Lead-06/13/19 09 Implanted:Qt y: 1 on 06/12/[address] [facility] - [id number] [facility] 7121 EULALIO / [id number] / Description:RV LEAD Care Teams Collar Turner Relationship Specialty Start Date End Date Unknown None PCP - General 03/20/17
--- OUTSIDE RECORDS SUMMARY | 2024-12-10 11:43 | XMS_ITS | Encounter Summary ---
Author Organization [employer] Address [address] [place] [address] 7 [place] [address] Care Team Providers Care Tax Attorney Name Role Phone Lauren Whittaker MD Primary Care Pro vider Encounter Details Date Type Department Care Team ([facility] Contact Info) Description 10/28/2024 Orders Only [facility] [address] [place] [address] Provider, MD Aaron Social History Tobacco Use [...] Name Priority Date/Time Associated Diagnosis Comments CT CERVICAL SPINE WO CONTRAST Routine 10/23/2024 11:[address] HEAD WO CONTRAST Routine 10/23/2024 11:48 AM EDT documented in this encounter Results * CT Cervical Spine w/o Contrast (10/23/2024 11:56 AM EDT) Anatomical Region Laterality Modality Spine, C-spine Computed Tomogra phy Historical Provider MD GEORGE CT PROCEDURES Final R esult * CT Head w/o Contrast (10/23/2024 11:48 AM EDT) Anatomical Region Laterality Modality Head, Neck Computed Tomogra phy us Historical Provider MD GEORGE CT PROCEDURES Final R esult documented in this encounter Visit Diagnoses Not on filedocumented in this encounter Additional Health Concerns Assessment Noted Time PHQ-9 Depression Total Score: 0 08/23/19 25 2:30 PM EDT documented as of this encounter Care Teams Tax Attorney Relationship Specialty Start Date End Date Lauren Whittaker MD [address] [place] [address] PCP - General Internal Medicine 11/15/23 [facility] 03/08/24 12/02/24 [facility] 10/11/24 documented as of this encounter
--- OUTSIDE RECORDS SUMMARY | 2024-12-10 11:43 | XMS_ITS | Clinical Summary ---
Author Organization [facility] Address [address] [place] [address] Care Team Providers Care Selling Underwriter Name Role Phone Lauren Solomon MD MPH Primary Care Provider [phone] Allergies Active Allergy Reactions Criticality Noted Date [...] he presented to the emergency room at [facility]. He was discharged from the emergency room, later that same night he started noticing chest pressure radiating to his left ribs around 1 AM last night. He was supposedly on his way to the [facility] and [facility] when his chest pressure began. He has [...] global hypokinesis, dilated RV, mild AR, mild [place] and moderate TR. He has also been [...] global hypokinesis, dilated RV, mild AR, mild [place] and moderate TR. 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 Follows with Dr. Nix at [place]. etiology of HF was Non-ischemic cardiomyopathy, s/p AICD placement. BNP 92, CXR without CHF. Continue with giudeline directed medical therapy while in hospital. Most recent TTE below 08/2019 TTE: S/p tetralogy of fallot repair. Mildly reduced left ventricular ejection fraction is 45%. Global hypokinesis with minor regional variations. Right ventricle not well visualized. The right ventricle appears dilated. Global systolic function is low normal. Mild aortic valve regurgitation. Mild pulmonary regurgitation. Mild to moderate tricuspid regurgitation. - Electrolyte [...] [facility] AICD placement 05/2016. His primary oil sprayer is Dr. Tobin, and takes Toprol Xl [...] (08/19/2019): Added automatically from request for surgery [id number] Assessment & Plan (03/04/2023 4:14 PM EST): Patient complaining of left sided chest pain which is at least sometimes reproducible. Patient has had extensive cardiac workup in the past at [facility], and [facility] which has all been negative. Coronary CT has been -ve, Nuclear stress test was also -ve for any ischemic changes. Patient did have 12 beats of Vtach which was noted on tele but was not seen on ICD interrogration at [place]. Echo was done at [facility] in February which was normal [...] tomorrow Arrange f/u soon with his primary oil sprayer Non-cardiac chest pain 07/26/2019 Assessment & Plan [...] no evidence of ischemia although apical anterior NE cannot be excluded due to known right [...] on T waves. Patient states that his Cartographic Technician had discussed ablation with him in the [...] of Fallot, status postrepair (remote). Follows at [facility] and [facility]. Assessment & Plan [...] & Plan (03/04/2023 4:20 PM EST): C/W ON LINE CSR dose of levothyroxine 75mg daily. Assessment & [...] heparin drip if cardiac cath is warranted [id number] Stroke Risk (5-year stroke rate based on [...] history of paroxysmal AF, not on anticoagulation ([id number]-Oakt of 1). He currently takes Toprol XL [...] recently. PT/OT recommends short term rehab. Plan: -security services specialist recs for placement -Fall precautions Encounters Date Type Department Care Team Description 12/05/2024 3:18 PM EDT - 12/06/2024 1:15 AM EDT Hospital Encounter [facility] Emergency Department [address] [place] [address] Aden Baldwin MD Patel, Viral C., MD Chest pain, unspecified type (Primary Dx) [...] Colonoscopy 1962 Sigmoidoscopy 1962 Ophthalmology Exam 01/26/1972 Zoster Vaccines (1 of 2) 01/26/2012 Urine Microalbumin 11/04/2016 11/05/2015 RSV Vaccine (60+ years old and patients) (1 - Risk 60-74 years 1-dose series) 2022 Alcohol/Substance Use Screening 04/03/2024 Depression Screening and Follow-Up 04/03/2024 Social Drivers of Health Annual Screening 04/03/2024 COVID-19 Vaccine ( season) 2024 03/08/2022, 03/08/2022, 06/03/2020, Additional history exists Influenza Vaccine (#1) 2024 , 12/14/2023, 03/17/2023, Additional history exists Hemoglobin A1C 02/04/2025 08/04/2024, 06/01, 01/22/2023, Additional history exists Colon Cancer Screening 11/11/2025 FOBT / Fit Test 11/11/2025 11/11/2024, 02/12/2024 Basic Metabolic Panel 12/05/2025 12/05/2024 , 12/03/2024, 11/25/2024, Additional history exists DTaP,Tdap,and Td Vaccines (8 - Td or Tdap) 12/13/2033 12/14/2023, 10/05/2012, 11/26/1996, Additional history exists Pneumococcal Vaccine: 50+ Years Completed 12/01/2022, 02/08/2018, 04/19/2011, Additional history exists HIV Screening Completed 12/12/2023, 12/12/2023 Hepatitis C Screening Completed 12/12/2023, 020 Hepatitis B Vaccines Aged Out No long er eligible based on patient's age to complete this topic Procedures * Due to [place] state law, this organization might not be sharing negative HIV tests. Procedure Name Priority Date/Time Associated Diagnosis Comments TROPONIN T HIGH SENSITIVITY Timed 12/05/2024 8:48 PM EDT XR CHEST 2 VW STAT 12/05/2024 7:31 PM EDT TROPONIN T HIGH SENSITIVITY STAT 12/05/2024 6:36 PM EDT TROPONIN T HIGH SENSITIVITY STAT 12/05/2024 5:27 PM EDT BASIC METABOLIC PANEL STAT 12/05/2024 5:27 PM EDT CBC AUTO DIFFERENTIAL STAT 12/05/2024 5:[address] CERVICAL SPINE WO CONTRAST (TRAUMA) STAT 12/05/2024 3:[address] HEAD WO CONTRAST (TRAUMA) STAT 12/05/2024 3:03 PM EDT HEART & VASCULAR - SCANNED 12/05/2024 HEART & VASCULAR - SCANNED 12/05/2024 HEMOGLOBIN A1C Routine 10/03/2022 8:30 AM EDT HEPATITIS C ANTIBODY W/REFLEX TO HCV RNA, QUANTITATIVE PCR STAT 08/27/2019 2:07 PM EDT from Last 3 Months or Most Recently Relevant to Health Maintenance Results * Due to [place] state law, this organization might not be sharing negative HIV tests. * Troponin T, High Sensitivity (12/05/2024 8:48 PM EDT) Only the most recent of3 resultswithin the time period is included. Troponin T High Sensitivity 8 <=21 ng/L 12/05/2024 9:28 PM EDT [facility] Comment: Rd-Wfriyhiv-N level of 52 ng/L or higher at [...] be evaluated in line with the 4th [place] Definition of AMI. Troponin baseline and serial [...] 8:48 PM EDT 12/05/2024 8:54 PM EDT Aden Baldwin MD LAB BLOOD ORDERABLES Final R esult [facility] [address] [place] [address], [place] * XR Chest 2 vw. Standard [...] to obtain the completed interpretation. Workstation ID: [id number] Narrative 12/05/2024 7:32 PM EDT COMPARISON: 07/11/2024. FINDINGS AND Resulting Agency Comment [id number] Procedure Note Mack Cook MD - 12/05/2024 [...] possible to obtain thecompleted interpretation. Workstation ID: [id number] us Aden Baldwin MD IMG XR PROCEDURES Final Resu lt * (ABNORMAL) CBC Auto Differential (12/05/2024 5:27 PM EDT) WBC 4.9 3.8 - 10.8 10*3/uL 12/05/2024 6:03 PM EDT [facility] RBC 3.50(L) 4.20 - 5.80 10*6/uL 12/05/2024 6:03 PM EDT [facility] Hemoglobin 9.4(L) 13.2 - 17.1 g/dL 12/05/2024 6:03 PM EDT [facility] Hematocrit 29.7(L) 38.5 - 50.0 % 12/05/2024 6:03 PM EDT [facility] MCV 84.9 80.0 - 100.0 fL 12/05/2024 6:03 PM EDT [facility] - [facility] MCH 26.9(L) 27.0 - 33.0 pg 12/05/2024 6:03 PM EDT [facility] MCHC 31.6(L) 32.0 - 36.0 g/dL 12/05/2024 6:03 PM EDT [facility] RDW 13.6 11.0 - 15.0 % 12/05/2024 6:03 PM EDT [facility] Platelets 92(L) 140 - 400 10*3/uL 12/05/2024 6:03 PM EDT [facility] MPV 11.6 7.5 - 12.5 fL 12/05/2024 6:03 PM EDT [facility] Neutrophil % 55.6 % 12/05/2024 6:03 PM EDT [facility] Immature Grans % 1.0(H) 0.0 - 0.9 % 12/05/2024 6:03 PM EDT [facility] Lymphocyte % 25.5 % 12/05/2024 6:03 PM EDT [facility] Monocyte % 11.8 % 12/05/2024 6:03 PM EDT [facility] Eosinophil % 5.5 % 12/05/2024 6:03 PM EDT [facility] Basophil % 0.6 % 12/05/2024 6:03 PM EDT [facility] Neutrophil # 2.72 1.50 - 7.80 10*3/uL 12/05/2024 6:03 PM EDT [facility] Immature Grans # 0.05(H) <=0.03 10*3/uL 12/05/2024 6:03 PM EDT [facility] Lymphocyte # 1.30 0.85 - 3.90 10*3/uL 12/05/2024 6:03 PM EDT [facility] Monocyte # 0.60 0.20 - 0.95 10*3/uL 12/05/2024 6:03 PM EDT [facility] Eosinophil # 0.30 0.02 - 0.50 10*3/uL 12/05/2024 6:03 PM EDT [facility] Basophil # <0.03 0.00 - 0.20 10*3/uL 12/05/2024 6:03 PM EDT [facility] nRBC % 0.0 /100 WBCs 12/05/2024 6:03 PM EDT [facility] nRBC # <0.01 <0.01 10*3/uL 12/05/2024 6:03 PM EDT [facility] Blood Structure of peripheral vein / Unknown Venipuncture / Unknown 12/05/2024 5:27 PM EDT 12/05/2024 5:37 PM EDT us Aden Baldwin MD LAB BLOOD ORDERABLES Final R esult [facility] [address] [place] [address], * (ABNORMAL) BMP - Basic Metabolic Panel (12/05/2024 5:27 PM EDT) NA 140 135 - 145 mmol/L 12/05/2024 6:13 PM EDT [facility] K 4.5 3.5 - 5.3 mmol/L 12/05/2024 6:13 PM EDT [facility] Cl 107 98 - 107 mmol/L 12/05/2024 6:13 PM EDT [facility] CO2 23 22 - 32 mmol/L 12/05/2024 6:13 PM EDT [facility] [facility] BUN 19 7 - 23 mg/dL 12/05/2024 6:13 PM EDT [facility] Creatinine 1.26 0.60 - 1.30 mg/dL 12/05/2024 6:13 PM EDT [facility] Glucose 95 65 - 99 mg/dL 12/05/2024 6:13 PM EDT [facility] Calcium 8.1(L) 8.6 - 10.5 mg/dL 12/05/2024 6:13 PM EDT [facility] Anion Gap 10 5 - 15 12/05/2024 6:13 PM EDT [facility] eGFR 64 >=60 mL/min/1. 73m2 12/05/2024 6:13 PM EDT [facility] Comment:The estimated glomer ular [...] MD LAB BLOOD ORDERABLES Final R esult [facility] [address] [place] [address], [place] * CT Cervical Spine WO Contrast [...] to obtain the completed interpretation. Workstation ID: [id number] Up-to-date CT equipment and radiation dose reduction techniques were employed. CTDIvol: 27.0 - 59.9 mGy. DLP: 1851 mGy-cm. The following accession numbers are related to this dose report [id number]: [id number] Narrative 12/05/2024 3:22 PM EDT Examination: CT [...] severe left neuroforaminal stenosis. Resulting Agency Comment [id number] Procedure Note Daron Garza MD - 12/05/2024 [...] changes of the cervical spine, particularly at C3-F3suwyr there appears to be severe spinal canal stenosis and severe rightand moderate to severe left neuroforaminal stenosis. If this radiology report contains a blank impression section, it is anincomplete radiology report. Please contact the interpreting radiologistor applicable radiology division as soon as possible to obtain thecompleted interpretation. Workstation ID: [id number] Up-to-date CT equipment and radiation dose reduction techniques wereemployed. CTDIvol: 27.0 - 59.9 mGy. DLP: 1851 mGy-cm. The followingaccession numbers are related to this dose report [id number]: [id number] Gilbert Stearns MD [facility] CT PROCEDURES Final Result * CT Head [...] to obtain the completed interpretation. Workstation ID: [id number] Up-to-date CT equipment and radiation dose reduction techniques were employed. CTDIvol: 27.0 - 59.9 mGy. DLP: 1851 mGy-cm. The following accession numbers are related to this dose report [id number]: [id number] Narrative 12/05/2024 3:16 PM EDT EXAMINATION: CT [...] right mastoid air cells. Resulting Agency Comment [id number] Procedure Note Daron Garza MD - 12/05/2024 [...] possible to obtain thecompleted interpretation. Workstation ID: [id number] Up-to-date CT equipment and radiation dose reduction techniques wereemployed. CTDIvol: 27.0 - 59.9 mGy. DLP: 1851 mGy-cm. The followingaccession numbers are related to this dose report [id number]: [id number] Gilbert Stearns MD IM CT PROCEDURES Final Result * HEART & VASCULAR - SCANNED (12/05/2024) Only the most recent of2 resultswithin the time period is included. Anatomical Region Laterality Modality Other us Onbase Scan Diane SCANNED PROCEDURES Final Resu lt * (ABNORMAL) Hemoglobin A1c (10/03/2022 8:30 AM EDT) Hemoglobin A1C 6.7(H) <5.7 % of total Hgb 10/03/2022 4:36 PM EDT [facility] Comment: For someone without known diabetes, a [...] A1c for diagnosis of diabetes for children. eAG (MG/DL) 146 mg/dL 10/03/2022 4:36 PM EDT [facility] eAG (MMOL/L) 8.1 mmol/L 10/03/2022 4:36 PM EDT [facility] Blood Structure of peripheral vein / Unknown Venipuncture / Unknown 10/03/2022 8:30 AM EDT 10/03/2022 8:36 AM EDT Narrative [facility] - 10/03/2022 4:36 PM EDT [facility] Received Date: Dank Bob MD LAB BLOOD ORDERABLES Final Res ult [facility] [address] [facility] [address] [facility], [place] [address], [employer] [facility] [address], [place] [address], * Hepatitis C Antibody w/Reflex to HCV RNA, Quantitative PCR (08/27/2019 2:07 PM EDT) Hepatitis C Antibody NON-REACT GALO NON-REACT GALO 08/28/2019 1:42 AM EDT [facility] Signal To Cut-Off 0.08 <1.00 08/28/2019 1:42 AM EDT [facility] Comment: HCV antibody was non-reactive. There is no laboratory evidence of HCV infection. In most cases, no further action is required. However, if recent HCV exposure is suspected, a test for HCV RNA (test code 27238) is suggested. For additional information please refer to http://education.[employer]/faq/VXE93y1 (This link is being provided for informational/ educational purposes only.) Blood Structure of peripheral vein / Unknown Venipuncture / Unknown 08/27/2019 2:07 PM EDT 08/27/2019 2:13 PM EDT Narrative [facility] - 08/28/2019 1:42 AM EDT [facility] Received Date: us Jomar Leung MD LAB BLOOD ORDERABLES Final Resul t [facility] [address] [facility] [address], [place] [address], [place] [phone] [employer] [facility] [address] [facility] [address]rd Floor, [place] [address], from Last 3 Months or Most Recently Relevant to Health Maintenance Insurance [facility] [id number] Advance Directives Documents on File Type Date Recorded Patient [place] Operator Expl anation Health Care Proxy 10/15/2019 [...] Browning Sister Health Care Agent Care Teams Selling Underwriter Relationship Specialty Start Date End Date Lauren Solomon MD MPH [address] [place] [address] PCP - [facility] Medicine 12/05/24
--- OUTSIDE RECORDS SUMMARY | 2024-12-10 11:43 | XMS_ITS | Encounter Summary ---
Author Organization [employer] Address [address] [place] [address] [place] [address] Care Team Providers Care Tile Sorter Name Role Phone Lauren Whittaker MD Primary Care Pro vider Reason for Visit * Reason Onset Date Comments Nurse Triage 11/21/2023 Encounter Details Date Type Department Care Team ([facility] st Contact Info) Description 11/21/[address] [facility] [address] [place] [address] Lauren Whittaker MD [address] [place] [address] Nurse Triage Social History Tobacco Use Types [...] 2:13 PM EDT Pt reports went to [facility] 11/15/23 to be seen for Back [...] find position of comfort. Pt went to [facility] 11/15/23 and was given shot of morphine for pain but, no further prescription for pain medication. Pt is advised to come to [facility] for provider to see today. Visiting nurse will bring Pt to [facility] today. Pt agrees with this disposition. Protocol [...] documented as of this encounter Care Teams Tile Sorter Relationship Specialty Start Date End Date Lauren Whittaker MD [address] [place] [address] PCP - General Internal Medicine 11/15/23 [facility] 03/08/24 12/02/24 [facility] 10/11/24 documented as of this encounter
--- OUTSIDE RECORDS SUMMARY | 2024-12-10 11:43 | XMS_ITS | Encounter Summary ---
Author Organization [facility] Address [address] [place] [address] Care Team Providers Care Sample Taker Operator Name Role Phone Lauren Solomon MD MPH Primary Care Provider [phone]- [phone] Encounter Details Date Type Department Care Team (Late st Contact Info) Description 10/05/2022 Telephone [facility] Nuclear Medicine [address] [place] [address] [phone] Pool Rodriguez RN Social History Tobacco Use Types Packs/Day [...] Resolved Time R/O Respiratory Virus Infection 03/04/2023 03/04/2023 10:10 AM EST R/O Influenza 03/04/2023 03/04/2023 03/04/2023 10: 10 AM EST COVID-19 - Suspected infection 03/04/2023 03/04/2023 03/04/2023 10:10 AM EST documented as of this encounter Care Teams Sample Taker Operator Relationship Specialty Start Date End Date Lauren Solomon MD MPH [address] [place] [phone] PCP - General [facility] Medicine 12/05/24 documented as of this encounter
--- OUTSIDE RECORDS SUMMARY | 2024-12-10 11:43 | XMS_ITS | Clinical Summary ---
Author Organization [employer] Address [address] [place] [address] [address] [place] [address] Care Team Providers Care Surgical Aides Teacher Name Role Phone Lauren Whittaker MD [...] mouth or throat if needed. 4 Active NIFEdipine XL (Procardia XL) 30 MG 24 hr tablet Take 1 tablet by mouth Once per day. 4 Active levothyroxine (Synthroid, Levoxyl) 75 MCG tablet Take 1 tablet (75 mcg) by mouth Once per day. 30 tablet 3 4 Active Xarelto 20 MG tablet Take 1 tablet (20 mg) by mouth with evening meal. 30 tablet 3 4 Active Symbicort 80-4.5 MCG/ACT inhaler Inhale 2 [...] at bedtime. 30 tablet 3 5 Active hydrOXYzine HCl (Atarax) 50 MG tablet Take 1 tablet (50 mg) by mouth if needed at bedtime for anxiety (insomnia). 30 tablet 3 5 Active escitalopram (Lexapro) 20 MG tablet Take 1 tablet (20 mg) by mouth Once per day. 30 tablet 3 5 Active tamsulosin (Flomax) 0.4 MG 24 hr capsule Take 1 capsule (0.4 mg) by mouth Once per day. Take 1 capsule every day by oral route. 30 capsule 3 5 Active lidocaine-priloc abdi (Emla) 2.5-2.5 % cream Apply topically if needed each day for mild pain. 30 g 2 5 Active Active Problems Problem Noted Date Diagnosed Date Abdominal pain 08/23/2024 Mild intellectual disability 07/01/2024 Hypothyroidism 07/01/2024 Somatoform disorder 07/01/2024 Overview (07/01/2024): vs conversion [place] respiration 07/01/2024 Asthma 07/01/2024 Overview (07/01/2024): Mild intermittent Last Assessment & Plan: Alcoholism in remission 07/01/2024 Family history of colon cancer 01/31/2024 History of Julia-Taussig shunt 01/31/2024 Odynophagia 01/31/2024 Obesity, morbid 11/15/2023 Thrombocytopenia 11/15/2023 Dysuria 11/15/2023 Numbness 11/15/2023 Radiculopathy 11/15/2023 Ankylosing spondylitis of sacrococcygeal region 11/15/2023 Health care maintenance 11/15/2023 V-tach 01/22/2023 Anxiety 10/04/2022 Overview (01/31/2024): Last Assessment & Plan: C/W Quetiapine and trazodone Assessment & Plan (08/28/2024 4:15 PM EDT): During IBH Consult Joaquín presenting with excessive worry/anxiety, difficulty controlling worry, anxiety/worry associated to restlessness and/or feeling keyed-up/On edge , easily fatigued , difficulty concentrating and/or mind going blank , irritability, and sleep disturbance difficulty falling asleep, and Fear ; for a period of 0-6 mo, for most or all symptoms in the context of illness or family illness. Joaquín's presenting concern is associated with chronic pain and anxiety. Due to increase abdominal pain, pt worries and is not able ton control his fears of the unknown. His sleeping and appetite has also changed with decrease food intake. Joaquín lives in a halfway [facility] located in [place]. He was referred in the past to services but due to changing his number he wasn't reachable. Assessment & Plan (04/29/2024 2:07 PM EST): [...] cousin but it's only temporary. Pt has rn care transition with [facility] who is assisting with his living situation. [...] with vascular surgery for symptomatic subclavian steal Angina pectoris, unstable 08/18/2019 Overview (01/31/2024): Added automatically from request for surgery [id number] Last Assessment & Plan: Patient complaining of left sided chest pain which is at least sometimes reproducible. Patient has had extensive cardiac workup in the past at [facility], and [facility] which has all been negative. Coronary CT has been -ve, Nuclear stress test was also -ve for any ischemic changes. Patient did have 12 beats of Vtach which was noted on tele but was not seen on ICD interrogration at [facility]. Echo was done at [facility] in February which was normal as [...] of 45%. Follows with Dr. Nix at [place]. etiology of HF was Non-ischemic cardiomyopathy, s/p [...] of falls. - Continue Lexapro, Seroquel, Risperdal Benign prostatic hyperplasia 05/29/2019 Clostridium difficile colitis 05/29/2019 Gout 05/29/2019 Paroxysmal atrial fibrillation 05/29/2019 Anemia in chronic kidney disease (CKD) 9 CKD (chronic kidney disease) stage 2, GFR 60-89 ml/min 06/15/2018 Syncope and collapse 06/15/2018 Overview (01/31/2024): [...] rehab - Cardiology following Assessment & Plan (09/17/2024 6:27 PM EDT): 24 hours ago, with negative workup for cardiac ischemia or CVA at ED last night, will follow-up the results. Given recurrence of symptoms and new neurological S/S, will refer back to ED via ambulance for further evaluation, rule out CVA. Major depressive disorder, r ecurrent severe without psychotic features 06/06/2018 Contusion of left frontal lobe 06/05/2018 Dyspnea 06/02/2018 Prolonged QT interval 06/02/2018 Suicidal ideation 04/14/2018 Abnormal LFTs (liver function tests) 12/22/2017 History of orthostatic hypotension 12/22/2017 Impulse control disorder in adult 03/23/2017 Seizure disorder 11/06/2015 Dual ICD (implantable cardioverter-defibrillator ) in place 11/06/2015 Overview (07/01/2024): [facility] [employer] serial #[id number] Dual Chamber ICD implanted 06/12/08 Obstructive sleep apnea syndrome 11/06/2015 Overview (07/01/2024): Uses BIPAP 14/7 with humidified air, needs to sleep at an incline to avoid hypopnea Tetralogy of Fallot s/p repair 11/06/2015 RBBB 11/04/2015 Migraine without status migrainosus, not intract able 01/05/2015 Cerebral cavernoma 01/05/2015 Type 2 diabetes mellitus wit h other specified complication, without long-term current use of insulin 01/05/2015 Paroxysmal supraventricular tachycardia 10/14/19 15 Overview (07/01/2024): Transient asymptomatic supraventricular tachycardia on Holter monitor.? -AT treated occasionally with ATP via DDD device Essential hypertension 10/13/2014 Overview (07/01/2024): Setting of florinef use Assessment & Plan (09/17/2024 6:23 PM EDT): Unclear if patient is having hypertension emergency with TIA versus anxiety due to perioral and left-sided numbness. He also has labored breathing. Will refer to ED to rule out CVA Consider med administration by [facility] at halfway, needs medication, CHF S/S monitoring and education regarding calling inst[facility]Ed as needed and follow-up closely with cardiology. PCP to follow-up Hyperlipidemia 10/01/2013 Overview (11/15/2023): Last Assessment & [...] PCSK9 inhibitor (monitor for LDL > 70) Pacemaker 10/01/2013 Family history of prostate cancer 02/27/2012 Overview (07/01/2024): Brother 44 Family history of bladder cancer 02/27/2012 Overview (07/01/2024): Father Autonomic dysfunction 12/06/2011 Encounters * This document contains information received from the source organization and may not represent a complete record from that organization. Date Type Department Care Team Description 12/05/[address] [facility] [address] [place] [phone] Lauren Whittaker MD No Show 11/17/2024 Orders Only GENERIC EXTERNAL DATA DEPARTMENT Provider, Generic External Data 11/14/[address] [facility] [address] [facility] [place] [address] Lauren Whittaker MD Transition Of Care (Tcm) (HDF scheduled) 11/11/[address] [facility] [address] [place] [phone] Lauren Whittaker MD oct recall 11/08/2024 Orders Only GENERIC EXTERNAL DATA DEPARTMENT Provider, Generic External Data 11/05/2024 Orders Only GENERIC EXTERNAL DATA DEPARTMENT Provider, Generic External Data 11/04/[address] [address] Lauren Whittaker MD FYI 10/28/2024 Orders Only [facility] [address] [place] [phone] Aaron Wray MD 10/24/[address] [address] Lauren Whittaker MD No Show 10/24/[address] [facility] [address] [place] [phone] Lauren Whittaker MD Medication Question 10/21/2024 Orders Only GENERIC EXTERNAL DATA DEPARTMENT Provider, Generic External Data 10/16/[address] [address] Lauren Whittaker MD 10/11/[address] [address] Lauren Whittaker MD FYI 10/09/2024 Orders Only [facility] [address] [place] [phone] Aaron Wray MD 09/18/[address] [facility] [address] [address] Gaviota Isaacs MD Right knee pain, unspecified chronicity; Right ankle pain, unspecified chronicity 09/16/2024 9:20 AM EDT Office Visit [facility] [address] [address] Gaviota Isaacs MD Essential hypertension (Primary Dx); Syncope and collapse 09/10/[address] [facility] [address] [place] [address] [phone] Lauren Whittaker MD Call Back Request from Last 3 Months Immunizations Immunization Administration Dates Next Due COVID-19 Non-US Vaccine, Pro duct Unknown 03/08/2022 DTaP 11/26/1996, 3,09/02/1991,07/02,05/27/1991 HiB, unspecified 06/10/1992, 2,07/03/1991,05/27 Influenza injectable quadriv alent preservative free 03/17/2023,02/17/2022,01/05/2022 Influenza, IIV3, injectable 02/08/2024,1 04/19/2021,04/17/2018,06/22,03/02/2016,03/19/2013,01/28/2013 ,01/06/2012,01/24/2011,01/17/2010,01/02,12/31/2008,01/10/2007 Influenza, Injectable, MDCK, preservative free 12/24/2014 Influenza, Unspecified 01/04/2012,12/21/2007 Influenza, live, intranasal 01/21/2009 Influenza, seasonal, injecta ble, preservative free 02/08/2024,12/14/2023,03/02/2016,03/19,01/24/2011,01/17/2010,01/21/2009 ,12/31/2008,01/10/2007 Moderna Covid-19 Vaccine 6+ Bivalent 03/08/2022 Pneumococcal Conjugate PCV 20 12/01/2022 Pneumococcal Polysaccharide PPSV23 02/08/2018,,01/11/2008 Pneumococcal, Unspecified 01/11/2008 Tdap 12/14/2023,10/05/2012 Family History Medical History Relation Name Comments COPD Brother COPD Father NH at 70s Mother DM2 Sister Relation Name Status Comments Brother Father Mother Sister Social History Tobacco Use Types Packs/Day Years Used Date Smoking Tobacco: Former Cigarettes Passive Smoke Exposure: Never Smokeless Tobacco: Never Tobacco Cessation:Counseling Given: Not Answered Comments:Started smoking 21 y of age and [...] is your housing situation today? I have anderw torres 11/15/[address] you [...] Sign Reading Time Taken Comments Blood Pressure 155/98 09/16/2024 8:46 AM EDT Pulse 105 09/16/2024 8:46 AM EDT Temperature 36.3 C (97.4 F) 08/22/2024 2:29 PM EDT Respiratory Rate 20 08/22/2024 2:29 PM EDT Oxygen Saturation 99% 09/16/2024 8:46 AM EDT RA Inhaled Oxygen Concentration - - Weight 109 kg (240 lb) 08/22/2024 2:29 PM EDT Height 175.3 cm (5' 9 ) 08/22/2024 2:29 PM EDT Body Mass Index 35.44 08/22/2024 2:29 PM EDT Plan of Treatment Health Maintenance [...] - Risk 60-74 years 1-dose series) 2022 SDOH Screening 11/14/2024 11/15/2023 COVID-19 Vaccine ( - season) 2024 03/08/2022, 06/03/2020, 05/06/2020 Influenza Vaccine (#1) 2024 , 02/08/2024, 12/14/2023, Additional history exists Lipid Panel 12/11/2024 12/12/2023 Diabetes: Hemoglobin A1C 02/11/2025 025, 06/13/2024, 02/12/2024, Additional history exists Depression Screening 08/22/2025 08/22/2024, 08/23/19 Diabetes: Urine Protein Screening 08/22/2025 08/22/2024, 11/15/2023 Tobacco Screening 08/22/2025 08/22/2024 DTaP/Tdap/Td Vaccines (8 - Td or Tdap) 12/13/2033 12/14/2023, 10/05/2012, 11/26/1996, Additional history exists HIB Vaccines Aged Out 06/10/1992, 0604/1991, 07/03/1991, Additional history exists No longer eligible based on patient's age to complete this topic Pneumococcal Vaccine: 50+ Years Completed 12/01/2022, 02/08/2018, 04/19/2011, Additional history exists HIV Screening Completed 12/12/2023 Hepatitis C Screening Completed 12/12/2023 HPV Vaccines Aged Out No longer eligi [...] Procedure Name Priority Date/Time Associated Diagnosis Comments HIGH SENSITIVITY TROPONIN I Routine 11/17/2024 5:37 AM EDT CBC WITH AUTO DIFFERENTIAL Routine 11/08/2024 7:39 PM EDT HIGH SENSITIVITY TROPONIN I Routine 11/05/2024 5:33 PM EDT CBC WITH AUTO DIFFERENTIAL Routine 11/05/2024 3:16 PM EDT HIGH SENSITIVITY TROPONIN I Routine 11/05/2024 3:16 PM EDT MAGNESIUM Routine 11/05/2024 3:16 PM EDT COMPREHENSIVE METABOLIC PANEL Routine 11/05/2024 3:16 PM EDT PROTHROMBIN TIME-INR Routine 11/05/2024 3:16 PM EDT XR CHEST 2 VIEWS Routine 11/05/2024 2:[address] CERVICAL SPINE WO CONTRAST Routine 10/23/2024 11:[address] HEAD WO CONTRAST Routine 10/23/2024 1 1:48 AM EDT HIGH SENSITIVITY TROPONIN I Routine 10/21/2024 1:15 PM EDT HIGH SENSITIVITY TROPONIN I Routine 10/21/2024 11:42 AM EDT COMPREHENSIVE METABOLIC PANEL Routine 10/21/2024 11:[address] HEAD WO CONTRAST Routine 10/09/2024 2 :39 PM EDT ECG 12-LEAD Routine 09/18/2024 2:05 PM EDT Essential hypertension ALBUMIN, RANDOM URINE W/CREATININE Routine 08/22/2024 3:20 PM EDT Type 2 diabetes mellitus with hyperglycemia, without long-term current use of insulin (CMS/HCC) POCT GLYCATED HEMOGLOBIN, TOTAL Routine 06/13/2024 11:30 [...] 12/12/2023 11:54 AM EDT Annual physical exam from Last 3 Months or Most Recently Relevant to Health Maintenance Results * High Sensitivity Troponin I (11/17/2024 5:37 AM EDT) Only the most recent of5 resultswithin the time period is included. TROPONIN I HIGH SENSITIVITY <2.7 <3.5 - 35.0 ng/L [facility] Comment:The [place] high sens itivity Troponin-I results should beused in conjunction with other diagnostic information suchas ECG, clinical observations and information, and patientsymptoms to aid in the diagnosis of NH. 11/17/2024 5:37 AM EDT 11/17/2024 5:40 AM EDT us Generic External Data Provider LAB BLOOD ORDERAB LES Final Result [facility] [address] [place] [address] [phone] * (ABNORMAL) CBC auto differential (11/08/2024 7:39 PM EDT) Only the most recent of2 resultswithin the time period is included. White Blood Count 5.8 4.8 - 10.8 X10*3/uL [facility] Red Blood Count 3.65(L) 4.60 - 5.80 X10*6/uL [facility] Hemoglobin 10.3(L) 14.0 - 18.0 g/dl [facility] Hematocrit 30.3(L) 42.0 - 52.0 % [facility] Mean Corpuscular Volume 83.0 80.0 - 98.0 fL [facility] Mean Corpuscular Hemoglobin 28.2 27.0 - 33.0 pg [facility] Mean Corpuscular HGB Conc 34.0 31.0 - 36.0 g/dl [facility] Red Cell Distribution Width 13.4 11.0 - 16.0 % [facility] Platelet Count 74(L) 160 - 400 X10*3/uL [facility] Mean Platelet Volume 10.9 9.4 - 12.4 fL [facility] Neutrophils Percent Auto 59.8 45 - 73 % [facility] Imm Gran Pct Auto 1.2(H) 0.0 - 0.4 % [facility] Lymphocytes Percent Auto 21.6 20 - 40 % [facility] Monocytes Percent Auto 10.1 2 - 11 % [facility] Eosinophils Percent Auto 6.8(H) 0 - 4 % [facility] Basophils Percent Auto 0.5 0 - 2 % [facility] NRBC Pct Auto 0.0 0.0 - 0.2 /100WBC [facility] Neutrophils Absolute Auto 3.4 2.0 - 8.3 x10*3/uL [facility] Imm Gran Abs Auto 0.07(H) 0.00 - 0.03 X10*3/uL [facility] Lymphocytes Absolute Auto 1.2 1.2 - 4.9 X10*3/uL [facility] Monocytes Absolute Auto 0.6 0.1 - 1.2 X10*3/uL [facility] Eosinophils Absolute Auto 0.4 0.0 - 0.4 X10*3/uL [facility] Basophils Absolute Auto 0.0 0.0 - 0.2 X10*3/uL [facility] NRBC Abs Auto 0.000 0.0 - 0.012 X10*3/uL [facility] 11/08/2024 7:39 PM EDT 11/08/2024 7:41 PM EDT us Generic External Data Provider LAB BLOOD ORDERAB LES Final Result Performing Organization Address City/State/[facility] Co de Phone Number [facility] [address] [place] [phone] * (ABNORMAL) Prothrombin Time-INR (11/05/2024 3:16 PM EDT) Prothrombin Time 13.6(H) 10.9 - 12.4 SEC [facility] INTERNATIONAL NORM RATIO 1.2(H) 0.9 - 1.1 [facility] Comment:INTERNATIONAL NORMAL IZED RATIO (INR) REFERENCE RANGES Reference RangeFor patients not on anticoagulant therapy: 0.9 - 1.1INR ranges for oral anticoagulanttherapy:For prevention and treatment of venous thrombosis and pulmonary embolism: 2.0 - 3.0For acute myocardial infarction with aspirin therapy: 2.0 - 3.0For acute myocardial infarction without aspirin therapy: 3.0 - 4.0For patients with mechanical prosthetic heart valves: 2.5 - 3.5 11/05/2024 3:16 PM EDT 11/05/2024 3:18 PM EDT us Generic External Data Provider LAB BLOOD ORDERAB LES Final Result Performing Organization Address City/[facility]/ZIP Co de Phone Number [facility] [address] [place] [address] [phone] * Magnesium (11/05/2024 3:16 PM EDT) Pathologist [facility] Magnesium 1.8 1.6 - 2.6 mg/dL [facility] 11/05/2024 3:16 PM EDT 11/05/2024 3:18 PM EDT us Generic External Data Provider LAB BLOOD ORDERAB LES Final Result Performing Organization Address [facility] Co de Phone Number [facility] [address] [place] [address] [phone] * (ABNORMAL) Comprehensive Metabolic Panel (11/05/2024 3:16 PM EDT) Only the most recent of2 resultswithin the time period is included. Pathologist [facility] Sodium 144 135 - 145 mmol/L [facility] Potassium 4.2 3.3 - 5.1 mmol/L [facility] Chloride 107 96 - 108 mmol/L [facility] Carbon Dioxide 30(H) 22 - 29 mmol/L [facility] Anion Gap 11(L) 12 - 20 [facility] Urea Nitrogen (BUN) 13 9 - 16 mg/dL [facility] Creatinine, Serum 1.29 0.5 - 1.4 mg/dL [facility] Creatinine Clr Calc Pharmacy 71.8 [facility] Comment:eGFR (calculated fro m the MDRD study equation) and eCrCl(calculated from the Cockcroft-Gault equation) are based ondifferent parameters and may not yield comparable results.If eCrCl result is absurd, please check patient'sheight/weight. Estimated Glomerular Filt Rate 56 [facility] Comment:Chronic Kidney Disea se: Estimated GFR < 60 mL/min/1.66j6Akoopt Kidney Disease: Estimated GFR < 15 mL/min/1.73m2 Glucose 121(H) 60 - 115 mg/dL [facility] Calcium 8.3(L) 8.4 - 10.2 mg/dL [facility] Bilirubin, Total 0.4 0.0 - 1.0 mg/dL [facility] Aspartate Amino Transferase 18 5 - 37 U/L [facility] Alanine Aminotransferase 17 0 - 40 U/L [facility] Total Protein 6.4(L) 6.5 - 8.0 g/dL [facility] Albumin Level 3.9 3.5 - 5.0 g/dL [facility] Alkaline Phosphatase 69 39 - 117 U/L [facility] 11/05/2024 3:16 PM EDT 11/05/2024 3:18 PM EDT us Generic External Data Provider LAB BLOOD ORDERAB LES Final Result Performing Organization Address City/State/[facility] Co de Phone Number [facility] [address] [place] [phone] * XR Chest 2 Views (11/05/2024 2:36 PM EDT) Anatomical Region Laterality Modality Chest Radiographic Masha ging 11/05/2024 2:36 PM EDT Narrative 11/05/2024 3:46 PM EDT [address] [address] XRay Report Signed Patient: Joaquín Barrientos MR#: [id number] 1 : 1960 Acct:[id number] Age/Sex: 64 / M ADM Date: 11/05/24 Loc: .ED Attending Dr: Ordering Physician: Debo Negron Date of Service: 11/05/24 Procedure(s): XR chest 2V Accession Number(s): [id number] cc: [facility]; Debo Negron EXAMINATION: XR CHEST 2 VIEWS HISTORY: L sided chest pain COMPARISON: Comparison is made with the prior examination dated 10/21/2024. FINDINGS: PA and lateral views of the chest are submitted. A left subclavian pacemaker is unchanged in position. The lungs are expanded and clear. There is no pleural effusion, pneumothorax, or pulmonary vascular congestion. The heart is normal in size. There is degenerative disc disease of the spine. XR/XR chest 2V IMPRESSION: No acute cardiopulmonary abnormality. Electronically signed by: Rocael Golden MD 11/05/2024 03:43 PM EDT RP Dictated By: Rocael Golden MD Signed By: <Electronically signed by Rocael Golden MD in OV> 11/05/24 1543 DD/ 1436 TD/TT: 11/05/24 1537 Backer Up: Procedure Note Donotuseinterpreter, Image - 11/05/[address] [address] XRay Report Signed Patient: Jaret Barrientos#: [id number] 1 : 1960cct:[id number] Age/Sex: 64 / MADM Date: 11/05/24 Loc: .ED Attending Dr: Ordering Physician: Debo Negron Date of Service: 11/05/24 Procedure(s): XR chest 2V Accession Number(s): [id number] cc: [facility]; Debo Negron EXAMINATION: XR CHEST 2 VIEWS HISTORY: L sided chest pain COMPARISON: Comparison is made with the prior examination dated 10/21/2024. FINDINGS: PA and lateral views of the chest are submitted. A left subclavian pacemaker is unchanged in position. The lungs are expanded and clear. There is no pleural effusion, pneumothorax, or pulmonary vascular congestion. The heart is normal in size. There is degenerative disc disease of the spine. XR/XR chest 2V IMPRESSION: No acute cardiopulmonary abnormality. Electronically signed by: Rocael Golden MD 11/05/2024 03:43 PM EDT RP Dictated By: Rocael Golden MD Signed By: <Electronically signed by Rocael Golden MD in OV> 11/05/24 1543 DD/ 1436 TD/TT: 11/05/24 1537 Backer Up: [facility] External Provider IMG XR PROCEDURES Edited Result - Final * CT Cervical Spine w/o Contrast (10/23/2024 11:56 AM EDT) Anatomical Region Laterality Modality Spine, C-spine Computed Tomogra phy Historical Provider IMG CT PROCEDURES Final R esult * CT Head w/o Contrast (10/23/2024 11:48 AM EDT) Only the most recent of2 resultswithin the time period is included. Anatomical Region Laterality Modality Head, Neck Computed Tomogra phy Result [facility] Historical Provider IMG CT PROCEDURES Final R esult * ECG 12 lead (09/18/2024 2:05 PM EDT) Narrative Gaviota Isaacs MD - 09/18/2024 2:05 PM EDT Sinus tachycardia at 98 bpm, right axis deviation. RBBB. PVCs Result [facility] Gaviota Isaacs MD ECG ORDERABLES Final Re sult * Albumin, Random Urine W/Creatinine (08/22/2024 3:20 PM EDT) Creatinine, Urine 168.70 mg/dL [facility] Microalbumin Urine 5.0 mg/L [facility] Microalbum Creatinine Ratio Ur 2.9 <30 ug/mg cr [facility] Comment:Albumin/Creatinine R atio Reference Ranges: Normal: < 30 ug/mg creatinine Microalbuminuria: 30 - 300 ug/mg creatinineClinical Albuminuria: > 300 ug/mg creatinine Urine (Urine, Random) 08/22/2024 3:20 PM EDT 08/22/2024 4:12 PM EDT Result [facility] Lauren Solomon MD LAB URINE ORDERAB LES Final Result [facility] [address] [place] [address] [phone] * (ABNORMAL) POCT A1C (06/13/2024 11:30 AM EDT) Pathologist [facility] Hemoglobin A1C 6.9(A) 4.0 - 6.0 % Blood 06/13/2024 11:3 0 AM EDT Donna Nico DO POINT OF CARE TEST ENTER/BENJAMIN T ORDERABLES Final Result * Hepatitis C Antibody with Reflex to HCV, RNA, Quantitative, Real-Time PCR (12/12/2023 11:54 AM EDT) Pathologist [facility] Hepatitis C Antibody Nonreactive Nonreactive [facility] Comment:Antibodies to HCV no t detected; does not exclude early acuteHCV infection. Blood Venous blood specimen / Unknown 12/12/2023 11:54 AM EDT 12/12/2023 1:04 PM EDT Lauren Solomon MD LAB BLOOD ORDERAB LES Final Result [facility] [address] [place] [phone] * HIV-1/2 Antigen and Antibodies, Fourth Generation, with Reflexes (12/12/2023 11:54 AM EDT) Pathologist [facility] HIV AB/AG Nonreactive Nonreactive [facility] Comment:HIV-1 p24 Ag and/or HIV-1/HIV-2 Ab not detected.A test result that is nonreactive does not exclude thepossibility of exposure to or infection with HIV-1 and/orHIV-2. Nonreactive results in this assay for individualswith prior exposure to HIV-1 and/or HIV-2 may be due toantigen and antibody levels that are below the limit ofdetection of this assay.[employer] HIV Ag/Ab Combo assay result andsupplemental assay results should be interpreted inconjunction with the patient's clinical presentation,history and other laboratory results. If the results areinconsistent with clinical evidence, additional testing issuggested to confirm the result. Blood Venous blood specimen / Unknown 12/12/2023 11:54 AM EDT 12/12/2023 1:04 PM EDT us Lauren Solomon MD LAB BLOOD ORDERAB LES Final Result Performing Organization Address [facility]/ZIP Co de Phone Number [facility] [address] [place] [address] [phone] * (ABNORMAL) Lipid Panel, Standard (12/12/2023 11:54 AM EDT) Triglycerides 80 <150 mg/dL [facility] Comment:Desirable Triglyceri de: less than 150 mg/dLBorderline High Triglyceride 150-199 mg/dLHigh Triglyceride: 200-499 mg/dLVery High Triglyceride: greater than or equal to 5OO mg/dL Cholesterol 184 <200 mg/dL [facility] Comment:Desirable Cholestero l: less than 200 mg/dLBorderline High Cholesterol: 200-239 mg/dLHigh Cholesterol: greater than 239 mg/dL LDL Cholesterol Calculated 113(H) <100 mg/dL [facility] Comment:Desirable LDL: less than 100 mg/dLNear Optimal/Above Optimal LDL: 110- 129 mg/dLBorderline High LDL: 130-159 mg/dLHigh LDL: 160-189 mg/dLVery High LDL: greater than or equal to 190 mg/dL HDL Cholesterol 55 >40 mg/dL [facility] Comment:Desirable HDL: great er than 40 mg/dL Note: This HDL assay may give artificially low results in patients with liver disease. Blood Venous blood specimen / Unknown 12/12/2023 11:54 AM EDT 12/12/2023 1:04 PM EDT Lauren Solomon MD LAB BLOOD ORDERAB LES Final Result Performing Organization Address [facility]/ZIP Co de Phone Number [facility] [address] [place] [address] [phone] from Last 3 Months or Most Recently Relevant to Health Maintenance Insurance [facility] ONE CARE < [address] [place] [id number] Care Teams Surgical Aides Teacher Relationship Specialty Start Date End Date Lauren Whittaker MD [address] [place] [phone] PCP - General Internal Medicine 11/15/23 [facility] 10/11/24
--- OUTSIDE RECORDS SUMMARY | 2024-12-10 11:43 | XMS_ITS | Clinical Summary ---
Author Organization [address] Address [address] [place] [phone] Phone Care Team Providers Care Taker Off Drying Kiln Name Role Phone Obtain, Unable To Primary [...] 11/06/2015 Overview (11/06/2015): [facility] serial #[id number] Dual Chamber ICD implanted 06/12/08 Type 2 [...] 0.6 oz pur e alcohol) 5yrs sober [facility] Utilities Answer Date Recorded In the past 12 months has mobli, oil, or water [employer] threatened to shut off services in your [...] your living situation today? I have a [facility] place to live 08/04/2024 Housing Stability Not [...] 11/04/2016 11/05/2015 Covid-19 vaccine series ( season) 2024 03/08/2022, 06/03/2020, 05/06/2020 Influenza vaccine 12/02/2024 02/08/2024, [...] history exists HIV screening Completed 12/12/2023 Meningococcal B Vaccine Aged Out No l [...] and follows the calculation proposed by the [place] [employer] (Diabetes Care 31: 1-6, 2008). It may have less accuracy in children, women and patients with certain erythrocyte disorders. Blood Venipuncture / Unknown 08/04/2024 5:28 AM EDT 08/04/2024 5:35 AM EDT us Courtney Combs MD LAB BLOOD ORDERABLES Final Res ult Performing Organization Address City/[facility] Co de Phone Number [address] [phone] * Creatinine, urine, random (11/05/2015 7:03 PM EDT) Creatinine, Urine, Random 42 Reference Range not established mg/dL 11/05/2015 7:32 PM EDT [facility] Urine specimen (specimen) Collection / Unknown 11/05/2015 7:03 PM EDT 11/05/2015 7:11 PM EDT Narrative [facility] - 11/05/2015 7:32 PM EDT R1 us Carlos Lara APRN URINE ORDERABLES Fi nal Result [facility] [address] [place] [address], [facility] [phone] from Last 3 Months or Most Recently Relevant to Health Maintenance Insurance MEDICARE MEDICARE [place]NAG[place] [facility] [place] [id number] MEDICARE MEDICARE MANAGED [facility] [place] [facility] [place] [id number] [place]ICAID MEDICARE MANAGED [facility] [place] [id number] MEDICAID MEDICARE MANAGED MISC MEDICARE [id number] MEDICAID MEDICARE MANAG[place] [facility] [place] [id number] [place]ID MEDICARE [place] [facility] [place] Advance Directives * Full Code (Latest Code Status on File) Date Activated Date Inactivated Comments 08/02/2024 2:10 PM 08/08/2024 2:42 PM * Full Interventions Date Activated Date Inactivated Comments 11/04/2015 8:13 PM 11/06/2015 6:27 PM Question Answer Comments With Whom was the Code Statu s Discussed? [facility] Nurse Specify Individuals' Names: Kinza preciado, healthcare proxy and foster postal worker * Full Interventions Date Activated Date Inactivated Comments 11/04/2015 6:05 PM 11/04/2015 8:09 PM Care Teams Taker Off Drying Kiln Relationship Specialty Start Date End Date Obtain, Unable To PCP - General 08/02/24
--- OUTSIDE RECORDS SUMMARY | 2024-12-10 11:43 | XMS_ITS | Encounter Summary ---
Author Organization [employer] Address [address] [place] [address] [place] [address] Care Team Providers Care Classroom Instructional Aide Name Role Phone Lauren Whittaker MD Primary Care Pro vider Reason for Visit * Reason Onset Date Comments Med Refill 04/10/2024 Encounter Details Date Type Department Care Team ([facility] st Contact Info) Description 04/10/2024 Telephone [facility] [address] [place] [address] Lauren Whittaker MD [address] [place] [address] Med Refill Social History Tobacco Use Types [...] 50 MG tablet To be sent to: [id number] - [address] documented in this encounter Plan of Treatment Not on file documented as of this encounter Visit Diagnoses Not on filedocumented in this encounter Additional Health Concerns Assessment Noted Time PHQ-9 Depression Total Score: 0 11/15/19 24 9:31 AM EDT documented as of this encounter Care Teams Classroom Instructional Aide Relationship Specialty Start Date End Date Lauren Whittaker MD [address] [place] [phone] PCP - General Internal Medicine 11/15/23 [facility] 03/08/24 12/02/24 [facility] 10/11/24 documented as of this encounter
[2024-12-10 12:46] VITALS: BP 100/80; PULSE 76; RESP 18; TEMP 36.8
[2024-12-10 13:01] VITALS: BP 117/66; PULSE 75; RESP 20; O2SAT 100
[2024-12-10] MEDS: Magnesium Hydrox/Alum Hydrox 30 ML ORAL.SUSP PO (13:03)
[2024-12-10] MEDS: Lidocaine HCl Viscous 2 % 15 ML SOLUTION MUCOUS MEM (13:03)
[2024-12-10 13:32] LABS: Troponin-I High Sensitivity < 2.7 ng/L (<3.5-35.0)
[2024-12-10 14:02] VITALS: BP 117/66; PULSE 75; RESP 20; TEMP 36.8; O2SAT 100
== END 2024-12-10 14:08 | disposition home or self-care (01) ==
PROVIDERS: Registered Nurse Emergency; Emergency Provider Emergency Medicine
DX: R07.89 Other chest pain (principal); M79.602 Pain in left arm; I10 Essential (primary) hypertension; Z79.899 Other long term (current) drug therapy
CPT/HCPCS: 36415; 80053; 83735; 84484; 85025; 85610; 93005; 99283; 99285

== ENCOUNTER → 2024-12-10 09:44 | Outpatient (BNV) | payer OTHER, SELFPAY | PROVIDERS: Emergency Provider Emergency Medicine; Visit Provider Internal Medicine Cardiovascular Disease | DX: I44.0 Atrioventricular block, first degree (principal); I49.1 Atrial premature depolarization; I45.10 Unspecified right bundle-branch block | CPT/HCPCS: 93010 ==

== ENCOUNTER 2025-02-14 12:26 | Emergency (ER) | payer OTHER, SELFPAY ==
--- OUTSIDE RECORDS SUMMARY | 2018-03-07 03:25 | XMS_ITS | Continuity of Care Document ---
Author Organization [facility] Address [address] [place] [phone] Phone Care Team Providers Care Mainstreaming Facilitator Name Role Phone Camryn Monroe MD Unavailable Unavailable Advance Directives Directive Yes / No Effective Date File Name No Information Encounters Encounter Description Practice Location Reason(s) For Visit Diagnoses Date Provider [facility], [address] [place] [address], [id number], [place] tel:[phone] [facility] No Information [address]. [address] [place] [address], [id number], [place]. tel:[phone] Family History Family Member Type Diagnosis Age At Onset No Information Payers Payer name Insurance type Covered democrat ID Authoriza tion(s) No Information Social History Type Description Quantity Date Captured Comments Sex Male Smoking Status No Information Chief Complaint And Reason For Visit No Information History Of Present Illness Encounter Date Complaint History Of Prese nt Illness No Information Instructions Date Instruction Additional Infor mation No Information Assessments Type Assessment Date No Information
--- OUTSIDE RECORDS SUMMARY | 2018-03-07 03:25 | XMS_ITS | Continuity of Care Document ---
Author Organization [facility] Address [address] [place] [phone] Phone Care Team Providers Care Non Destructive Testing Inspector Name Role Phone Camryn Monroe MD Unavailable Unavailable Advance Directives Directive Yes / No Effective Date File Name No Information Encounters Encounter Description Practice Location Reason(s) For Visit Diagnoses Date Provider [facility], [address] [place] [address], [id number], [place] tel:[phone] [facility] No Information [address]. [address] [place] [address], [id number], [place]. tel:[phone] Family History Family Member Type Diagnosis Age At Onset No Information Payers Payer name Insurance type Covered libertarian ID Authoriza tion(s) No Information Social History Type Description Quantity Date Captured Comments Sex Male Smoking Status No Information Chief Complaint And Reason For Visit No Information History Of Present Illness Encounter Date Complaint History Of Prese nt Illness No Information Instructions Date Instruction Additional Infor mation No Information Assessments Type Assessment Date No Information
--- NOTE | 2025-02-14 12:28 | ECG_ITS ---
Test Reason : CP Blood Pressure : */* mmHG Vent. Rate : 85 BPM Atrial Rate : 85 BPM P-R Int : 206 ms QRS Dur : 166 ms QT Int : 418 ms P-R-T Axes : 63 102 44 degrees QTcB Int : 497 ms Normal sinus rhythm Right bundle branch block Abnormal ECG When compared with ECG of 10-Dec-2024 09:53, Premature ventricular complexes are no longer Present Referred By: Generic ED Physician Electronically Signed By: PATO ROMAN MD
[2025-02-14 12:40] VITALS: BP 151/71; PULSE 87; RESP 18; TEMP 36.9; O2SAT 98; BMI 35.5
--- NOTE | 2025-02-14 12:41 | ED.GENADULT ---
HPI - General Adult General Chief complaint: General Medical Stated complaint: chest pain Time Seen by Provider: 02/14/25 14:41 Source: patient Mode of arrival: ambulatory Limitations: no limitations History of Present Illness ED Provider: HPI narrative: 65-year-old male with history of tetralogy of Fallot, tachybradycardia syndrome with AICD in place,Presenting with chest pain states it was the going down his left arm and in his jaw this is a recurrent issue, he is also complaining of chronic right-sided low back pain, he states he has went to emergency department at [facility] last week for same symptoms, has had multiple ER visits for same in the emergency department here. 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 and an a few months the battery on the AICD/pacer will need to be exchanged Related Data Home Medications ?Medication ?Instructions ?Recorded ?Confirmed albuterol sulfate 90 mcg/actuation 2 puff inhalation Q4H PRN 08/19/22 01/01/23 aerosol inhaler Shortness Of Breath hydroxyzine pamoate 50 mg capsule 50 mg PO BID Anxiety / Nausea 08/19/22 01/01/23 nitroglycerin 0.4 mg sublingual 0.4 mg sublingual Q5M PRN Chest 08/19/22 01/01/23 tablet Pain sotalol 80 mg tablet 80 mg PO BID 08/19/22 01/01/23 tamsulosin 0.4 mg capsule 0.4 mg PO BEDTIME 08/19/22 01/01/23 levothyroxine 75 mcg tablet 75 mcg PO DAILY@0600 09/08/22 01/01/23 risperidone 1 mg tablet 1.5 mg PO BEDTIME 09/08/22 01/01/23 rivaroxaban 20 mg tablet (Xarelto) 20 mg PO DAILY@1800 09/08/22 01/01/23 acetaminophen 325 mg tablet 650 mg PO Q4H PRN Fever Or Pain 01/01/23 01/01/23 aluminum-mag hydroxide-simethicone 10 ml PO Q4H PRN Constipation 01/01/23 01/01/23 400 mg-400 mg-40 mg/5 mL oral susp (Mylanta Maximum Strength) aspirin 81 mg tablet,delayed 81 mg PO DAILY 01/01/23 01/01/23 release bisacodyl 5 mg tablet,delayed 10 mg PO BEDTIME PRN Constipation 01/01/23 01/01/23 release calcium carbonate (Tums) 300 mg PO Q4H PRN Dyspepsia 01/01/23 01/01/23 cyclobenzaprine 5 mg tablet 5 mg PO TID PRN muscle spasms 01/01/23 01/01/23 escitalopram oxalate 20 mg tablet 20 mg PO DAILY 01/01/23 01/01/23 gabapentin 300 mg capsule 300 mg PO BID 01/01/23 01/01/23 magnesium hydroxide 400 mg/5 mL 30 ml PO DAILY PRN Constipation 01/01/23 01/01/23 oral suspension melatonin 10 mg tablet 10 mg PO BEDTIME PRN Insomnia 01/01/23 01/01/23 metformin 500 mg tablet 500 mg PO DAILY 01/01/23 01/01/23 ondansetron HCl 4 mg tablet 4 mg PO Q4H PRN nausea and 01/01/23 01/01/23 vomitting quetiapine 100 mg tablet 100 mg PO BEDTIME 01/01/23 01/01/23 sumatriptan succinate 50 mg tablet 50 mg PO BID PRN migraines 01/01/23 01/01/23 tramadol 50 mg tablet 50 mg PO Q6H PRN migraines 01/01/23 01/01/23 trazodone 50 mg tablet 25 mg PO BEDTIME 01/01/23 01/01/23 hydroxyzine HCl 50 mg tablet 50 mg PO BEDTIME 12/26/23 trazodone 150 mg tablet 150 mg PO BEDTIME 12/26/23 Previous Rx's ?Medication ?Instructions ?Recorded isosorbide mononitrate 30 mg 30 mg PO DAILY #0 tabs 09/22/21 tablet,extended release 24 hr ezetimibe 10 mg tablet 10 mg PO DAILY 7 days #7 tabs 08/24/22 oxycodone 5 mg tablet 5 mg PO BID PRN pain #4 tabs 01/01/23 prednisone 20 mg tablet 20 mg PO DAILY #5 tabs 01/01/23 cyclobenzaprine 10 mg tablet 10 mg PO TID PRN muscle spasm #10 08/31/23 tabs acetaminophen 325 mg capsule 325 mg PO Q4H PRN pain #30 caps 09/30/23 (Tylenol) lidocaine 5 % topical patch 1 patch topical DAILY PRN pain #15 09/30/23 ea meclizine 25 mg tablet 25 mg PO DAILY PRN dizziness #14 09/30/23 tabs miscellaneous medical supply #1 ea 12/26/23 naloxone 4 mg/actuation nasal 4 mg intranasal Q2M PRN opioid 12/26/23 spray (Narcan) overdose #2 ea oxycodone-acetaminophen 5 mg-325 1 tab PO Q8H PRN pain (scale score 12/26/23 mg tablet 7-10) 7 days #20 tabs acetaminophen 500 mg capsule 1,000 mg (2 x 500 mg) PO Q6H PRN 02/14/25 pain 5 days #20 caps cyclobenzaprine 5 mg tablet 5 mg PO TID PRN muscle spasm 2 02/14/25 days #7 tabs lidocaine 5 % topical patch 1 patch topical DAILY 15 days #15 02/14/25 ea Allergies Allergy/AdvReac Type Severity Reaction Status Date / Time aripiprazole (From Abilify) Allergy Severe Rash Verified 02/14/25 12:42 peas Allergy Severe HIVES Verified 02/14/25 12:42 atorvastatin (From Lipitor) Allergy Intermediate Hives Verified 02/14/25 12:42 levetiracetam Allergy Itching Verified 02/14/25 12:42 bee pollen (bee stings) AdvReac Severe Anaphylaxis Verified 02/14/25 12:42 Review of Systems Constitutional: Constitutional: Reports as per HPI [facility] Past Medical History Medical History Somatoform disorder Depression with suicidal ideation Sleep apnea Seizure RBBB Cardiac defibrillator in place Artificial cardiac pacemaker Hyperthyroidism Hyperlipidemia History of ETOH abuse Hypertension GERD (gastroesophageal reflux disease) Diabetes Developmental delay, mild Depression COPD (chronic obstructive pulmonary disease) Asthma Anxiety Surgical History History of cardiac cath Social History Social History Household Members: Other Household Members Other:: 2 roommates Housing: Apartment Housing Other:: Sober House Do you presently have visiting nurse or other home services: No Alcohol intake: former Patient Tobacco Use Status: Never used Tobacco Tobacco use type: Cigarette Second Hand Smoke Exposure: No Substance Use Type: Former Substance User, Prescription Drugs and Caffiene Advance Directives: Yes Advance Directives on File: Yes Advance Directives Date on File: 11/12/24 Do you have a plan to hurt others: No Plan service: No Current occupational status: disabled Sexual orientation: Decline to Answer Physical Exam ED Exam Exam: General: Appears of stated age ? PERRLA, EOMI, MMM, ? Neck: short neck, no JVD ? CV: RRR, no obvious murmurs appreciated, left-sided chest wall tenderness ? Resp: ?No wheezing rales rhonchi no stridor moving air well ? Abd: ?Bowel sounds are present, no tenderness no rebound no rigidity ? MSK: right paraspinal tenderness, no midline tenderness, no CVA tenderness ? Skin: Warm, dry, intact, no lower extremity edema ? Neuro: ?Alert and oriented x3, moving upper and lower extremities symmetrically, no obvious facial asymmetry noted, cranial nerves 2-12 intact Vital Signs: Vital Signs - 24 hr 02/14/25 12:40 Temperature 98.4 F Pulse Rate 87 Respiratory Rate 18 Blood Pressure 151/71 H Pulse Oximetry 98 Oxygen Delivery Method Room Air BMI result Body Mass Index 35.5 Course Course Course Narrative: This is a rapid medical exam performed by Hunter Prescott NP: Additional HPI, ROS, PE not included below will be deferred to primary provider. Patient is a 65y/o M presenting with complaint of chest pain which began this am, resolved then returned. Also complains of right flank pain and dysuria. Plan: EKG, labs, UA Medical Decision Making Medical Decision Making [facility] Narrative: 2:56 PM 02/14/2025 (Dr. Rex Vargas): This is a proximally 12th visit for chest pain or back pain to this department alone, patient also goes to [facility] for same symptoms, his workup today included ECG, cardiac enzymes, no indication for chest x-ray there is no evidence for heart failure, pneumothorax and physical examination, he is also complaining of back pain that is chronic musculoskeletal, without any loss of bowel or bladder function, IV drug use or weakness in the lower extremities, patient has follow up pain management providers for this Differential Diagnosis Differential Diagnoses: The differential diagnosis associated with the presentation includes (ACS, pneumothorax, aortic dissection, PE, Boerhaave syndrome) Admission/Observation Consideration of admission/observation: Escalation of care including admission/observation considered Lab Data MDM Lab Attestation statement: I reviewed the patient's lab results. 02/14/25 12:52 02/14/25 12:52 Labs: Lab Results 02/14/25 02/14/25 Range/Units 12:52 14:19 WBC 4.7 L (4.8-10.8) X10*3/uL RBC 4.09 L (4.60-5.80) X10*6/uL Hgb 10.4 L (14.0-18.0) g/dl Hct 32.7 L (42.0-52.0) % MCV 80.0 (80.0-98.0) fL MCH 25.4 L (27.0-33.0) pg MCHC 31.8 (31.0-36.0) g/dl RDW 14.2 (11.0-16.0) % Plt Count 109 L (160-400) X10*3/uL MPV 11.6 (9.4-12.4) fL Immature Gran % (Auto) 0.6 H (0.0-0.4) % Neut % (Auto) 65.8 (45-73) % Lymph % (Auto) 17.4 L (20-40) % Ventura % (Auto) 8.5 (2-11) % Eos % (Auto) 6.8 H (0-4) % Baso % (Auto) 0.9 (0-2) % Lymph # (Auto) 0.8 L (1.2-4.9) X10*3/uL Ventura # (Auto) 0.4 (0.1-1.2) X10*3/uL Eos # (Auto) 0.3 (0.0-0.4) X10*3/uL Baso # (Auto) 0.0 (0.0-0.2) X10*3/uL Abs Immat Gran (auto) 0.03 (0.00-0.03) X10*3/uL Absolute Neuts (auto) 3.1 (2.0-8.3) x10*3/uL Absolute Nucleated RBC 0.000 (0.0-0.012) X10*3/uL Nucleated RBC % (auto) 0.0 (0.0-0.2) /100WBC Sodium 140 (135-145) mmol/L Potassium 4.2 (3.3-5.1) mmol/L Chloride 107 (96-108) mmol/L Carbon Dioxide 24 (22-29) mmol/L Anion Gap 13 (12-20) BUN 20 H (9-16) mg/dL Creatinine 1.26 (0.5-1.4) mg/dL Estim Creat Clear Calc 73.0 Estimated GFR 58 Random Glucose 161 H (60-115) mg/dL Calcium 8.1 L (8.4-10.2) mg/dL Total Bilirubin 0.5 (0.0-1.0) mg/dL AST 20 (5-37) U/L ALT 14 (0-40) U/L Alkaline Phosphatase 72 (39-117) U/L Troponin I High Sens < 2.7 (<3.5-35.0) ng/L Total Protein 6.6 (6.5-8.0) g/dL Albumin 4.1 (3.5-5.0) g/dL Urine Color Yellow Urine Appearance Clear Urine pH 5.5 (5.0-9.0) Ur Specific Mcfaddin 1.010 (1.005-1.025) Urine Protein Negative (Neg-Trace) mg/dL Urine Glucose (UA) Negative (Negative) mg/dL Urine Ketones Negative (Negative) mg/dL Urine Blood Negative (Negative) Urine Nitrite Negative (Negative) Ur Leukocyte Esterase Negative (Negative) Independent Interpretation I performed an independent interpretation of an: EKG ( 85 beats per minute otherwise normal ECG without dysrhythmia, AV tarsha blocks or ST-T changes to suspect underlying ACS, my independent interpretation) Tests considered The following testing was considered but not selected: Chest x-ray Discharge Plan Discharge Clinical Impression: Chest pain, precordial Instructions: Chest Pain (ED) Additional Instructions: between [facility] in [facility] you have been evaluated frequently for recurrent chest pain, reassuringly your cardiac enzymes has been unremarkable, ECG without underlying cardiac issues, you can take Tylenol 975 mg every 6 hours as needed for pain, and discuss with the your PCP whether you need additional medications for your chronic back pain, I can recommend lidocaine patches, cyclobenzaprine but otherwise additional pain control she would be done by your PCP Prescriptions: New lidocaine 5 % adhesive patch,medicated 1 patch topical DAILY 15 Days Qty: 15 0RF Rx Instructions: leave on most painful area for up to 12 hrs acetaminophen 500 mg capsule 1,000 mg PO Q6H PRN (Reason: pain) 5 Days Qty: 20 0RF cyclobenzaprine 5 mg tablet 5 mg PO TID PRN (Reason: muscle spasm) 2 Days Qty: 7 0RF No Action isosorbide mononitrate 30 mg Tablet Extended Release 24 Hr 30 mg PO DAILY Qty: 0 0RF Protocol: Hold for SBP< HOLD for SBP < : 90 sotalol 80 mg tablet 80 mg PO BID hydroxyzine pamoate 50 mg capsule 50 mg PO BID tamsulosin 0.4 mg capsule 0.4 mg PO BEDTIME nitroglycerin 0.4 mg tablet, sublingual 0.4 mg sublingual Q5M PRN (Reason: Chest Pain) albuterol sulfate 90 mcg/actuation HFA aerosol inhaler 2 puff inhalation Q4H PRN (Reason: Shortness Of Breath) ezetimibe 10 mg Tablet 10 mg PO DAILY 7 Days Qty: 7 0RF risperidone 1 mg tablet 1.5 mg PO BEDTIME Xarelto 20 mg tablet 20 mg PO DAILY@1800 levothyroxine 75 mcg tablet 75 mcg PO DAILY@0600 acetaminophen 325 mg tablet 650 mg PO Q4H PRN (Reason: Fever Or Pain) metformin 500 mg tablet 500 mg PO DAILY trazodone 50 mg tablet 25 mg PO BEDTIME ondansetron HCl 4 mg Tablet 4 mg PO Q4H PRN (Reason: nausea and vomitting) sumatriptan succinate 50 mg tablet 50 mg PO BID PRN (Reason: migraines) Rx Instructions: wait 2 hours between doses calcium carbonate [Tums] 300 mg (750 mg) Tablet,Chewable 300 mg PO Q4H PRN (Reason: Dyspepsia) aspirin 81 mg tablet,delayed release (DR/EC) 81 mg PO DAILY tramadol 50 mg tablet 50 mg PO Q6H PRN (Reason: migraines) quetiapine 100 mg tablet 100 mg PO BEDTIME magnesium hydroxide 400 mg/5 mL Suspension 30 ml PO DAILY PRN (Reason: Constipation) gabapentin 300 mg capsule 300 mg PO BID bisacodyl 5 mg Tablet,Delayed Release (Dr/Ec) 10 mg PO BEDTIME PRN (Reason: Constipation) alum-mag hydroxide-simeth [Mylanta Maximum Strength] 400-400-40 mg/5 mL Suspension 10 ml PO Q4H PRN (Reason: Constipation) escitalopram oxalate 20 mg Tablet 20 mg PO DAILY cyclobenzaprine 5 mg tablet 5 mg PO TID PRN (Reason: muscle spasms) melatonin 10 mg Tablet 10 mg PO BEDTIME PRN (Reason: Insomnia) prednisone 20 mg tablet 20 mg PO DAILY Qty: 5 0RF oxycodone 5 mg tablet 5 mg PO BID PRN (Reason: pain) Qty: 4 0RF Rx Instructions: Partial Fill upon patient request. cyclobenzaprine 10 mg tablet 10 mg PO TID PRN (Reason: muscle spasm) Qty: 10 0RF meclizine 25 mg tablet 25 mg PO DAILY PRN (Reason: dizziness) Qty: 14 0RF lidocaine 5 % adhesive patch,medicated 1 patch topical DAILY PRN (Reason: pain) Qty: 15 0RF Rx Instructions: leave on most painful area for up to 12 hrs acetaminophen [Tylenol] 325 mg capsule 325 mg PO Q4H PRN (Reason: pain) Qty: 30 0RF trazodone 150 mg tablet 150 mg PO BEDTIME hydroxyzine HCl 50 mg tablet 50 mg PO BEDTIME (DME) miscellaneous medical supply Misc See Rx Instructions .Route Qty: 1 0RF Rx Instructions: Quad cane use As directed oxycodone-acetaminophen 5-325 mg tablet 1 tab PO Q8H PRN (Reason: pain (scale score 7-10)) 7 Days Qty: 20 0RF Rx Instructions: Partial Fill upon patient request. naloxone [Narcan] 4 mg/actuation spray,non-aerosol 4 mg intranasal Q2M PRN (Reason: opioid overdose) Qty: 2 0RF Rx Instructions: spray 1 dose into ONE nostril; alternate nostrils w each dose until help arrives Referrals: Lauren Hdez MD [Primary Care Provider, Internal Medicine] - 2 weeks Clinical Impression: Chest pain, precordial Print Language: Korean
[2025-02-14 13:00] LABS: MANUAL DIFF FLAG NO
[2025-02-14 13:02] LABS: Hematocrit 32.7 % (42.0-52.0); Hemoglobin 10.4 g/dl (14.0-18.0); Imm Gran Abs Auto 0.03 X10*3/uL (0.00-0.03); Imm Gran Pct Auto 0.6 % (0.0-0.4); Lymphocytes Absolute Auto 0.8 X10*3/uL (1.2-4.9); Mean Corpuscular HGB Conc 31.8 g/dl (31.0-36.0); Mean Corpuscular Hemoglobin 25.4 pg (27.0-33.0); Mean Corpuscular Volume 80.0 fL (80.0-98.0); NRBC Abs Auto 0.000 X10*3/uL (0.0-0.012); NRBC Pct Auto 0.0 /100WBC (0.0-0.2); Platelet Count 109 X10*3/uL (160-400); Red Blood Count 4.09 X10*6/uL (4.60-5.80); White Blood Count 4.7 X10*3/uL (4.8-10.8)
[2025-02-14 13:17] LABS: Alanine Aminotransferase 14 U/L (0-40); Albumin Level 4.1 g/dL (3.5-5.0); Alkaline Phosphatase 72 U/L (39-117); Anion Gap 13 (12-20); Aspartate Amino Transferase 20 U/L (5-37); Blood Urea Nitrogen 20 mg/dL (9-16); Calcium 8.1 mg/dL (8.4-10.2); Carbon Dioxide 24 mmol/L (22-29); Chloride 107 mmol/L (96-108); Creatinine Clr Calc Pharmacy 73.0; Estimated Glomerular Filt Rate 58; Potassium 4.2 mmol/L (3.3-5.1); Sodium 140 mmol/L (135-145); Total Protein 6.6 g/dL (6.5-8.0)
[2025-02-14 13:27] LABS: Troponin-I High Sensitivity < 2.7 ng/L (<3.5-35.0)
[2025-02-14 14:30] LABS: Appearance Urine Clear; Glucose Urine UA Negative (Negative); PH 5.5 (5.0-9.0); Specific Gravity - Urine 1.010 (1.005-1.025)
[2025-02-14 15:12] VITALS: BP 156/63; PULSE 85; RESP 14; O2SAT 98
--- NOTE | 2025-02-14 15:12 | PC.NURSE ---
Pt roomed and placed on full monitor- seen by provider. Pt made aware of plan for DC. NAD, states back pain and some CP. provider aware-NSR on monitor no ectopy
[2025-02-14] MEDS: Lidocaine 4 % Patch ADH..PATCH 1 PATCH TRANSDERMA (15:16)
[2025-02-14 15:47] VITALS: BP 156/63; PULSE 85; RESP 14; TEMP 36.9; O2SAT 98
--- OUTSIDE RECORDS SUMMARY | 2025-02-14 21:22 | XMS_ITS | Clinical Summary ---
Author Organization [facility] Address [address] [place] [address] Care Team Providers Care Property Utilization Manager Name Role Phone Pcp, No MD Primary Care Provider Unavailabl e Allergies Active Allergy Reactions Criticality Noted Date Comments Atorvastatin Hives,Shortness of breath High 12/20/19 Peas Hives,Shortness of breath High 12/19/2024 Medications budesonide-formo teroL (SYMBICORT) 80-4.5 mcg/actuation inhaler Inhale 2 puffs in the morning and 2 puffs before bedtime. Active escitalopram (LEXAPRO) 20 mg tablet Take 20 mg by mouth in the morning. Active ezetimibe (ZETIA) 10 mg tablet Take 10 mg by mouth in the morning. Active hydrOXYzine (ATARAX) 50 mg tablet Take 50 mg by mouth daily as needed for itching. Active isosorbide mononitrate ER (IMDUR) 30 mg 24 hr tablet Take 30 mg by mouth in the morning. Active levothyroxine (SYNTHROID) 75 mcg tablet Take 75 mcg by mouth Daily before breakfast. Active lisinopriL (PRINIVIL) 2.5 mg tablet Take 2.5 mg by mouth in the morning. Active melatonin 10 mg tablet Take 10 mg by mouth nightly as needed. Active metFORMIN (GLUCOPHAGE) 500 mg tablet Take 500 mg by mouth in the morning and 500 mg in the evening. Take with meals. Active NIFEdipine XL (PROCARDIA XL) 30 mg 24 hr tablet Take 30 mg by mouth in the morning. Active QUEtiapine (SEROquel) 100 mg tablet Take 100 mg by mouth nightly. Active RisperiDONE (RisperDAL) 0.5 mg tablet Take 0.5 mg by mouth in the morning and 0.5 mg before bedtime. Active Xarelto tablet Take 20 mg by mouth in the morning. Active sotaloL (BETAPACE) 80 mg tablet Take 80 mg by mouth in the morning and 80 mg before bedtime. Active tamsulosin (Flomax) capsule Take 0.4 mg by mouth in the morning. Active traZODone (DESYREL) 150 mg tablet Take 150 mg by mouth nightly. Active albuterol HFA 90 mcg/actuation inhaler Inhale 2 puffs every 6 (six) hours as needed for wheezing. Active Encounters Date Type Department Care Team Description 12/19/2024 8:17 PM EDT - 12/20/2024 10:29 AM EDT Emergency [facility] Department of Emergency Services [address] [place] [address] Emili Castillo MD Blomstrom, Sara A, MD Chest wall pain (Primary Dx) Discharge Disposition: Home or Self Care from Last 3 Months Social History Tobacco Use Types Packs/Day Years Used Date Smoking Tobacco: Never Assessed Sex and Gender Information Value Date Recorded Sex Assigned at Not on file Legal Sex Male 8:17 PM EDT Gender Identity Not on file Sexual Orientation Not on file Last Filed Vital Signs Vital Sign Reading Time Taken Comments Blood Pressure 153/84 12/20/2024 10:12 AM EDT Pulse 87 12/20/2024 10:12 AM EDT Temperature 36.4 C (97.6 F) 12/20/2024 10:12 AM EDT Respiratory Rate 20 12/20/2024 10:12 AM EDT Oxygen Saturation 97% 12/20/2024 10:12 AM EDT Inhaled Oxygen Concentration - - Weight 104 kg (230 lb) 12/19/2024 8:36 PM EDT Height 175.3 cm (5' 9 ) 12/19/2024 8:36 PM EDT Body Mass Index 33.97 12/19/2024 8:36 PM EDT Plan of Treatment Health Maintenance Due Date Last Done Comments CT Colonography 1960 Colonoscopy 1960 Colorectal Cancer Screening 1960 Diabetes: Kidney Health Evaluation 1960 FIT-DNA (Cologuard) 1962 FIT 1960 FOBT 1960 Flex Sigmoidoscopy - 5y 1960 HIV Screening 1960 Diabetes: Retinopathy Screening 01/26/1980 Hepatitis C Screening 01/26/1980 Zoster Vaccines (1 of 2) 01/26/2012 COVID-19 Vaccine (2 - season) 2024 03/08/2022 Influenza Vaccine (#1) 2024 , 02/08/2024, 12/14/2023, Additional history exists Diabetes: Hemoglobin A1C 05/14/2025 025, 08/04/2024, 06/13/2024, Additional history exists DTaP,Tdap,and Td Vaccines (9 - Td or Tdap) 12/13/2033 12/14/2023, 01/05/2015, 10/05/2012, Additional history exists Pneumococcal Vaccine, 50+ Years Completed 12/01/2022, 02/08/2018, 01/05/2015, Additional history exists HPV Vaccines Aged Out [...] Associated Diagnosis Comments HIGH SENSITIVITY TROPONIN I STAT 12/19/2024 10:30 PM EDT XR CHEST - PA OR AP STAT 12/19/2024 1 0:23 PM EDT LIGHT GREEN TOP STAT 12/19/2024 9:06 PM EDT LAVENDER TOP STAT 12/19/2024 9:06 PM EDT COMPLETE BLOOD COUNT WITH AUTO DIFFERENTIAL STAT 12/19/2024 9:06 PM EDT COMPLETE BLOOD COUNT AND DIFFERENTIAL STAT 12/19/2024 9:06 PM EDT BASIC METABOLIC PANEL STAT 12/19/2024 9:06 PM EDT RAINBOW DRAW STAT 12/19/2024 9:06 PM EDT ECG 12-LEAD STAT 12/19/2024 8:32 PM EDT from Last 3 Months Results * High Sensitivity Troponin I (12/19/2024 10:30 PM EDT) high sensitivity Troponin I <3 <=35 ng/L 12/19/2024 11:15 PM EDT [facility] Comment:Refer to the high se nsitivity TnI algorithm for further workup Blood Venous blood specimen / Unknown Venipuncture / Unknown 12/19/2024 10:30 PM EDT 12/19/2024 10:42 PM EDT Emili Castillo MD LAB BLOOD ORDERABLES Final Resul t [facility] [address] [place] [address], * XR chest - pa or ap (12/19/2024 10:23 PM EDT) Anatomical Region Laterality Modality Chest Computed Radiogr aphy 12/20/2024 6:38 AM EDT Impressions 12/20/2024 6:43 AM EDT Likely some degree of cardiomegaly without evidence of any congestive heart failure fluid overload. Left-sided implantable cardiac defibrillator in place. Reminder to Patients and Legally Authorized Representatives: Language in this report is designed for medical communication with other treating physicians and clinical practitioners. Please speak with your provider(s) about any questions or concerns related to the content of this report. Fernando Camejo MD AF^0 Narrative 12/20/2024 6:43 AM EDT EXAMINATION: CHEST: PA or AP and lateral views: XR CHEST - PA OR AP 12/19/2024 10:23 PM 64-year-old male Patient : 1960 INDICATIONS: CHEST PAIN, NONSPECIFIC. FROM THE EPIC TRIAGE NURSING NOTE: BIBA for chest pain. Per EMS, pt is from a [facility] in [place], [place], pt took bus to [place]. Around 1:30pm, pt was on the bus back to [place] and began experiencing L sided chest pain radiating down right arm, also had syncopal episode with head strike. Pt on Xarelto. 64-year-old male who resides in a [facility] with a history of congenital heart disease, atrial fibrillation on Xarelto, status post AICD, hypertension, type 2 diabetes, hyperlipidemia, seizure disorder, PONCE and so on who presents with chest pain FINDINGS: Two views of the chest are reviewed. The cardiac silhouette is slightly prominent with likely LVH and some mild dilatation left atrium. There is evidence of some prominence the central pulmonary vessels but no evidence of any overt congestive heart failure. Lung mcneal and pleural spaces appear unremarkable. There is a left-sided subpectoral AICD device with 3 leads in good position. No active cardiopulmonary process is demonstrated. Specifically, there is no air space disease, congestive heart failure or pleural effusions evident. Procedure Note Fernando Camejo MD - 12/20/2024 EXAMINATION: CHEST: PA or AP and lateral views: XR CHEST - PA OR AP 12/19/2024 10:23 PM 64-year-old male Patient : 1960 INDICATIONS: CHEST PAIN, NONSPECIFIC. FROM THE EPIC TRIAGE NURSING NOTE: BIBA for chest pain. Per EMS, pt isfrom a [facility] in [place], [place], pt took bus to [place]. Around1:30pm, pt was on the bus back to [place] and began experiencing L sided chestpain radiating down right arm, also had syncopal episode with head strike.Pt on Xarelto. 64-year-old male who resides in a [facility] with a history of congenitalheart disease, atrial fibrillation on Xarelto, status post AICD,hypertension, type 2 diabetes, hyperlipidemia, seizure disorder, PONCE andso on who presents with chest pain FINDINGS: Two views of the chest are reviewed. The cardiac silhouette is slightly prominent with likely LVH and some milddilatation left atrium. There is evidence of some prominence the central pulmonary vessels but noevidence of any overt congestive heart failure. Lung mcneal and pleural spaces appear unremarkable. There is a left-sided subpectoral AICD device with 3 leads in goodposition. No active cardiopulmonary process is demonstrated. Specifically, there isno air space disease, congestive heart failure or pleural effusionsevident. IMPRESSION: Likely some degree of cardiomegaly without evidence of any congestiveheart failure fluid overload. Left-sided implantable cardiac defibrillatorin place. Reminder to Patients and Legally Authorized Representatives: Language in this report is designed for medical communication with othertreating physicians and clinical practitioners. Please speak with your provider(s) about any questions or concernsrelated to the content of this report. Fernando Camejo MD AF^0 Emili Castillo MD IMG XR PROCEDURES Final Result * (ABNORMAL) Complete Blood Count with Auto Differential (12/19/2024 9:06 PM EDT) White Cell Count 4.5 3.8 - 10.6 10*3/uL 12/19/2024 10:23 PM EDT [facility] Red Cell Count 3.39(L) 4.40 - 5.90 10*6/ L 12/19/2024 10:23 PM EDT [facility] Hemoglobin 9.2(L) 13.0 - 18.0 g/dL 12/19/2024 10:23 PM EDT [facility] Hematocrit 28.9(L) 40.0 - 52.0 % 12/19/2024 10:23 PM EDT [facility] MCV 85.3 80.0 - 100.0 fL 12/19/2024 10:23 PM EDT [facility] MCH 27.1 26.0 - 34.0 pg 12/19/2024 10:23 PM EDT [facility] MCHC 31.8(L) 32.0 - 36.0 g/dL 12/19/2024 10:23 PM EDT [facility] RBC Distribution Width 14.0 11.6 - 14.8 % 12/19/2024 10:23 PM EDT [facility] Platelet count 79(L) 150 - 440 10*3/uL 12/19/2024 10:23 PM EDT [facility] Neutrophils 58.7 40.0 - 70.0 % 12/19/2024 10:23 PM EDT [facility] Immature Granulocytes 0.7(H) 0.0 - 0.6 % 12/19/2024 10:23 PM EDT [facility] Lymphocytes 20.2 20.0 - 50.0 % 12/19/2024 10:23 PM EDT [facility] Monocytes 10.8 4.0 - 12.0 % 12/19/2024 10:23 PM EDT [facility] Eosinophils 8.7(H) 0.0 - 6.0 % 12/19/2024 10:23 PM EDT [facility] Basophils 0.9 0.0 - 2.0 % 12/19/2024 10:23 PM EDT [facility] Absolute Neutrophil Ct. 2.62 1.40 - 6.30 10*3/uL 12/19/2024 10:23 PM EDT [facility] Absolute Lymphocyte Ct. 0.90 0.70 - 4.50 10*3/uL 12/19/2024 10:23 PM EDT [facility] Absolute Monocyte Ct. 0.48 0.20 - 0.80 10*3/uL 12/19/2024 10:23 PM EDT [facility] Absolute Eosinophil Ct. 0.39(H) 0.00 - 0.30 10*3/uL 12/19/2024 10:23 PM EDT [facility] Absolute Basophil Ct. 0.04 0.00 - 0.20 10*3/uL 12/19/2024 10:23 PM EDT [facility] nRBC 0.0 0.0 - 0.0 % 12/19/2024 10:23 PM EDT [facility] MPV 12.8(H) 9.4 - 12.4 fL 12/19/2024 10:23 PM EDT [facility] IPF 4.5 1.0 - 7.9 % 12/19/2024 10:23 PM EDT [facility] Absolute immature granulocytes 0.03 10*3/uL 12/19/2024 10:23 PM EDT [facility] Blood Venous blood specimen / Unknown Venipuncture / Unknown 12/19/2024 9:06 PM EDT 12/19/2024 9:12 PM EDT us Emili Castillo MD LAB BLOOD ORDERABLES Final Resul t [facility] [address] [place] [address], [place] [phone] * Lavender top (12/19/2024 9:06 PM EDT) Extra Tube, Coagulation LAV 12/19/2024 9:16 PM EDT [facility] Blood Venous blood specimen / Unknown Venipuncture / Unknown 12/19/2024 9:06 PM EDT 12/19/2024 9:12 PM EDT us Emili Castillo MD LAB BLOOD ORDERABLES Final Resul t Performing Organization Address City/[facility]/ZIP Co de Phone Number [facility] [address] [place] [address], [place] [phone] * Light green top (12/19/2024 9:06 PM EDT) Extra Tube, Coagulation 12/19/2024 10:12 PM EDT [facility] Blood Venous blood specimen / Unknown Venipuncture / Unknown 12/19/2024 9:06 PM EDT 12/19/2024 9:12 PM EDT us Emili Castillo MD LAB BLOOD ORDERABLES Final Resul t Performing Organization Address City/[facility]/ZIP Co de Phone Number [facility] [address] [place] [address], [place] [phone] * (ABNORMAL) Basic metabolic panel (12/19/2024 9:06 PM EDT) Sodium 141 137 - 144 mmol/L 12/19/2024 10:33 PM EDT [facility] Potassium 4.0 3.6 - 5.1 mmol/L 12/19/2024 10:33 PM EDT [facility] Chloride 110 100 - 111 mmol/L 12/19/2024 10:33 PM EDT [facility] CO2 22(L) 23 - 32 mmol/L 12/19/2024 10:33 PM EDT [facility] Anion gap 9 3 - 11 mmol/L 12/19/2024 10:33 PM T [facility] BUN 19 8 - 24 mg/dL 12/19/2024 10:33 PM T [facility] Creatinine 1.30(H) 0.60 - 1.20 mg/dL 12/19/2024 10:33 PM EDT [facility] Glucose 157 70 - 200 mg/dL 12/19/2024 10:33 PM T [facility] Comment: Normal fasting glucose 75-99 mg/dL Impaired fasting glucose 100 - 125 mg/dL Fasting glucose >125 mg/dL - provisional diagnosis of diabetes mellitus Random glucose >= 200 mg/dl is considered diagnostic for diabetes ADA Guidelines: Classification and Diagnosis of Diabetes: Standards of Medical Care in Diabetes - 202, Diabetes Care 2020; S15-S33. Calcium 7.9(L) 8.4 - 10.2 mg/dL 12/19/2024 10:33 PM EDT [facility] eGFR 62 >60 mL/min/1. 73m*2 12/19/2024 10:33 PM T [facility] Comment: Calculation based on the Chronic Kidney Disease Epidemiology Collaboration (CKD-EPI) equation refit without adjustment for race. Chronic Kidney Disease less than 60 ml/min/1.73 m2 Kidney Failure less than 15 ml/min/1.73 m2 Age (Years) Average GFR 20 - 29 116 ml/min/1.73 m2 30 - 39 107 ml/min/1.73 m2 40 - 49 99 ml/min/1.73 m2 50 - 59 93 ml/min/1.73 m2 60 - 69 85 ml/min/1.73 m2 70 + 75 ml/min/1.73 m2 Pursuant to [place] Public Act 06120(1)(b)(1). The 2020 CKD-EPI calculation used to estimate eGFR has only been validated for patients 18 years or older. Blood Venous blood specimen / Unknown Venipuncture / Unknown 12/19/2024 9:06 PM EDT 12/19/2024 9:12 PM EDT us Emili Castillo MD LAB BLOOD ORDERABLES Final Resul t [facility] [address] [place] [address], * ECG 12 lead (12/19/2024 8:32 PM EDT) 12/19/2024 8:32 PM EDT 12/20/2024 7:17 AM EDT Narrative [facility] (MUSE) - 12/20/2024 7:17 AM EDT Ventricular Rate: 79 BPM Atrial Rate: 79 BPM P-R Interval: 210 ms QRS Duration: 180 ms Q-T Interval: 448 ms QTC Calculation(Bazett): 513 ms P Ivanhoe: 66 degrees R Ivanhoe: 100 degrees T Ivanhoe: 46 degrees Diagnosis: Sinus rhythm with 1st degree A-V block with premature ventricular or aberrantly conducted complexes Right bundle branch block Abnormal ECG No previous ECGs available Confirmed by Quinton Vazquez ([id number]) on 12/19/2024 9:28:49 PM Also confirmed by Quinton Vazquez ([id number]), film and video editor Leroy Jansen ([id number]) on 12/20/2024 7:17:08 AM Procedure Note Quinton Vazquez MD - 09/19/2025 Ventricular Rate: 79 BPM Atrial Rate: 79 BPM P-R Interval: 210 ms QRS Duration: 180 ms Q-T Interval: 448 ms QTC Calculation(Bazett): 513 ms P Ivanhoe: 66 degrees R Ivanhoe: 100 degrees T Ivanhoe: 46 degrees Diagnosis: Sinus rhythm with 1st degree A-V block with prematureventricular or aberrantly conducted complexes Right bundle branch block Abnormal ECG No previous ECGs available Confirmed by Quinton Vazquez ([id number]) on 12/19/2024 9:28:49 PM Also confirmed by Quinton Vazquez ([id number]), film and video editor Leroy Jansen ([id number])on 12/20/2024 7:17:08 AM us Emili Castillo MD ECG ORDERABLES Final Result [facility] ([place] [place] [address], [place] from Last 3 Months Insurance MEDICAID OUT OF STATE MEDICARE MANAGED - MISCELLANEOUS [place]OR[place] [id number] Care Teams Property Utilization Manager Relationship Specialty Start Date End Date Pcp, MD Nadiya [address] [place] [address] PCP - General Internal Medicine 12/19/24
--- OUTSIDE RECORDS SUMMARY | 2025-02-14 21:22 | XMS_ITS | Encounter Summary ---
Author Organization [facility] Address [address] [place] [address] Care Team Providers Care Collector Of Aquarium Specimens Name Role Phone Lauren Solomon MD MPH Primary Care Provider [phone] Encounter Details Date Type Department Care Team (Late st Contact Info) Description 10/05/2022 Telephone [facility] Nuclear Medicine [address] [place] [address] Pool Rodriguez RN Social History Tobacco Use [...] on file documented as of this encounter Functional Status documented as of this encounter Plan of [...] documented as of this encounter Care Teams Collector Of Aquarium Specimens Relationship Specialty Start Date End Date Lauren Solomon MD MPH [address] [place] [address] [facility]CP [facility] 12/05/24 documented as of this encounter
--- OUTSIDE RECORDS SUMMARY | 2025-02-14 21:22 | XMS_ITS | Clinical Summary ---
Author Organization [address] Address [address] [place] [phone] Phone Care Team Providers Care Supervisor Phosphorus Processing Name Role Phone Obtain, Unable To Primary [...] (BMI) of 36.0 to 36.9 in adult 08/06/2024 Current use of computer terminal operator anticoagulation 025 Atrial fibrillation (HC Code) 08/06/2024 [...] 11/06/2015 Overview (11/06/2015): [facility] serial #[id number] Dual Chamber ICD implanted 06/12/08 Type 2 [...] 0.6 oz pur e alcohol) 5yrs sober [facility] Utilities Answer Date Recorded In the past 12 months has [employer], gas, oil, or water [employer] threatened to shut off services in your [...] your living situation today? [facility] 08/04/2024 Housing Stability [...] Standard Series) 01/26/2012 Urine Microalbumin 11/04/2016 11/05/2015 Influenza vaccine 11/01/2024 02/08/2024, , 03/17/2023, Additional history exists Covid-19 vaccine series ( season) 2024 03/08/2022, 06/03/2020, 05/06/2020 Hemoglobin A1C 02/04/2025 08/04/2024, 01/02, 10/03/2022, Additional [...] - 5.6 % 08/05/2024 5:52 PM EDT [facility] Comment: Hemoglobin A1c values of 5.7-6.4 [...] mg/dL 140 mg/dL 08/05/2024 5:52 PM EDT [facility] Comment: Estimated average glucose (eAG) is a calculated value designed to estimate the expected average blood glucose level throughout the day from a single measurement of glycated hemoglobin A1C (HbA1c) and follows the calculation proposed by the [place] [employer] (Diabetes Care 31: 1-6, 2008). It may have less accuracy in children, women and patients with certain erythrocyte disorders. Blood Venipuncture / Unknown 08/04/2024 5:28 AM EDT 08/04/2024 5:35 AM EDT us Courtney Combs MD LAB BLOOD ORDERABLES Final Res ult [address] [phone] * Creatinine, urine, random (11/05/2015 7:03 PM EDT) Creatinine, Urine, Random 42 Reference Range not established mg/dL 11/05/2015 7:32 PM EDT [facility] Urine specimen (specimen) Collection / Unknown 11/05/2015 7:03 PM EDT 11/05/2015 7:11 PM EDT Narrative [facility] - 11/05/2015 7:32 PM EDT R1 us Carlos Lara APRN URINE ORDERABLES Fi nal Result [id number] [address] [place] [address], [facility] [phone] from Last 3 Months or Most Recently Relevant to Health Maintenance Insurance MEDICARE MEDICARE MANAGED [facility] [place] [id number] MEDICARE MEDICARE MANAGED [facility] [place]ICARE MEDICARE MANAG[place] [facility] [place] [id number] MEDICAID MEDICARE MANAGED [facility] [place] [id number] MEDICAID MEDICARE MANAGED MISC MEDICARE [id number] MEDICAID MEDICARE MANAG[place] [facility] [place] [id number] MEDICAID MEDICARE [place]NA[place] [facility] [place]IC[place] Advance Directives * Full Code (Latest Code Status on File) Date Activated Date Inactivated Comments 08/02/2024 2:10 PM 08/08/2024 2:42 PM * Full Interventions Date Activated Date Inactivated Comments 11/04/2015 8:13 PM 11/06/2015 6:27 PM Question Answer Comments With Whom was the Code Statu s Discussed? Health Care General Lot Attendant Specify Individuals' Names: Kinza preciado, healthcare proxy and foster lumber press operator * Full Interventions Date Activated Date Inactivated Comments 11/04/2015 6:05 PM 11/04/2015 8:09 PM Care Teams Supervisor Phosphorus Processing Relationship Specialty Start Date End Date Obtain, Unable To PCP - General 08/02/24
--- OUTSIDE RECORDS SUMMARY | 2025-02-14 21:22 | XMS_ITS | Data Portability ---
Author Organization [facility], Main Office Address [address] [facility] [address] [place] [address] Care Team Providers Care Staff Radiologist Name Role Phone JIM VILLANUEVA - 2ND [...] 5 mg-325 mg tablet 024 02/16/20 24 [facility] , [address] [place] [address], [address], 21:36:06 Patient TargetsNo targets recorded. Patient InstructionsNo instructions recorded. Reason for Referral None Reported. Problems Name Problem SNOMED Code Status Onset Date Resolution Date Notes Provider Name and Address Organization Details Recorded Time Mental retardation Active 2017 Razia diggs [facility] 8 16:10:41 Atrial fibrillatio n 45973551 Active 2017 Razia diggs [facility] 8 16:10:46 Tetralogy of Fallot 54027704 Active 2017 Razia diggs [facility] 8 16:10:59 Essential hypertensio n 24398506 Active 2017 Razia diggs [facility] 8 16:11:14 Mixed hyperlipide crescencio 452594864 Active 2017 Razia Tang null, [facility] 8 16:11:21 Benign prostatic hyperplasia 601984683 Active 2017 Razia Tang null, [facility] 8 16:11:26 Chronic obstructive pulmonary disease 58048405 Active 2017 Razia Tang null, [facility] 8 16:11:31 Diabetes mellitus 17881493 Active 2017 Razia Tang null, [facility] 8 16:17:50 Hypothyroid ism 50141636 Active 2017 Razia Tang null, [facility] 8 16:19:53 Ankle pain 901723080 Active 2017 SHANNON LORD [address], [address], [place], [address], [facility] 8 15:59:07 Orthostatic hypotension 03206316 Active 2023 Ivelisse Hart MD [address], [address], [place], [address], [facility] 4 18:24:49 Chest pain 08654240 Active 2023 Ivelisse Hart MD [address], [address], [place], [address], [facility] 4 18:27:24 Bifascicula r block 59194474 Active 2023 Ivelisse Hart MD [address], [address], [place], [address], [facility] [employer] [facility] 4 18:31:47 Thrombocyto penic disorder 304971561 Active 2023 Ivelisse Hart MD [address], [address], [place], [address], [facility] [employer] [facility] 4 18:43:24 Intellectua l disability 770956387 Active 2023 Ivelisse Hart MD [address], [address], [place], [address], [facility] [employer] [facility] 4 18:44:22 Gastroesoph ageal reflux disease without esophagitis 204611325 Active 2023 Ivelisse Hart MD [address], [address], [place], [address], [facility] [employer] [facility] 4 18:54:10 Obesity 804217949 Active 2023 Ivelisse Hart MD [address], [address], [place], [address], [facility] 4 18:54:57 Mixed anxiety and depressive disorder 313003868 Active 2023 Ivelisse Hart MD [address], [address], [place], [address], [facility] [employer] [facility] 4 18:57:08 Pain of knee region 7658716646 Active 2023 Ivelisse Hart MD [address], [address], [place], [address], [facility] 4 18:58:16 Obstructive sleep apnea syndrome 34343813 Active 2023 Ivelisse Hart MD [address], [address], [place], [address], [facility] [employer] [facility] 4 19:03:46 Harmful pattern of use of alcohol 57652827 Active 2023 Ivelisse Hart MD [address], [address], [place], [address], [facility] [employer] [facility] 4 19:06:12 Migraine 27643792 Active 2023 Ivelisse Hart MD [address], [address], [place], [address], [facility] [employer] 4 19:10:43 Frequent attender of emergency room 0353411260184 04 Active 2023 Ivelisse Hart MD [address], [address], [place], [address], [facility] 4 19:12:29 Problem Notes None recorded. Medical Equipment None Reported. Allergies Allergen ID Allergen Name Allergen Category Reaction Reaction Severity Criticality Documentation Date Start Date Code Code System Note Provider Name and Address Organization Details Recorded Time 36371 Pisum sativum (pea) extract food other Not available high 02/12/2024 34691 12 RxNorm green peas Ashley Irwin, BANDAR [address], [address], [place], [address], [facility] 4 13:11:02 09385 honey bee venom medicatio n other Not available high 02/12/2024 07480 7 RxNorm unkno wn Ashley Irwin, BANDAR [address], [address], [place], [address], [facility] 4 13:11:27 9916 Lipitor medicatio n Not available Not available Not available 06/22/2017 70506 5 RxNorm Razia Tang [facility], [facility] 8 16:05:13 Medications Name Sig Start Date [...] [degF] 97 % 97 % 130/71 mm[Hg] SHANONN CALIXTO [address], [facility] [address], [place], [address], [facility] 8 15:45:03 Date Recorded Heart rate Oxygen saturation Oxygen saturation in Arterial blood by Pulse oximetry Systolic And Diastolic Provider Name and Address Organization Details Last Updated DateTime 08/10/2017 74 /min 96 % 96 % 128/76 mm[Hg] Razia Tang [facility] 8 15:09:30 Date Recorded Body weight Heart rate Respiratory rate Body temperature Oxygen saturation Oxygen saturation in Arterial blood by Pulse oximetry Systolic And Diastolic Provider Name and Address Organization Details Last Updated DateTime 4 424909. 58 g 81 /min 18 /min 97.6 [degF] 94 % 94 % 143/83 mm[Hg] Ashley Irwin NP [address] [facility], [facility] [address], [place], [address], [facility] 4 13:22:45 Date Recorded Body height Body mass index (BMI) Body weight Heart rate Respiratory rate Body temperature Oxygen saturation Oxygen saturation in Arterial blood by Pulse oximetry Systolic And Diastolic Provider Name and Address Organization Details Last Updated DateTime 4 175.26 cm 36.5 kg/m2 268875. 11 g 8 /min 18 /min 98 [degF] 98 % 98 % 146/76 mm[Hg] Ivelisse Hart MD [address] [facility], [facility] [address], [place], [address], [facility] 4 18:18:26 Date Recorded Body height Body mass index (BMI) Body weight Heart rate Respiratory rate Body temperature Oxygen saturation Oxygen saturation in Arterial blood by Pulse oximetry Systolic And Diastolic Provider Name and Address Organization Details Last Updated DateTime 4 175.26 cm 37.1 kg/m2 412701. 68 g 79 /min 16 /min 97.7 [degF] 97 % 97 % 148/82 mm[Hg] Ashley Irwin NP [address] [facility], [facility] [address], [place], [address], [facility] 4 10:54:45 Social History Question Answer Notes LastModified by Organizat ion Details LastModified Time Tobacco Smoking Status Never Smoker Ivelisse Hart MD [address] [facility], [facility] [address], [place], [address], [facility] 02/16/2024 17:40:34 Do You Have An Advance [...] Do You Have A Medical Power Of Safety Leader? Yes Information not available 02/16/2024 What Was [...] Time Pneumococcal conjugate PCV 13 3 completed Dayr Farmer [facility] 02/12/2024 13:04:57 pneumococcal polysaccharide PPV23 2 completed Dary [facility] 02/12/2024 13:05:19 pneumococcal polysaccharide PPV23 8 completed Dary Farmer [facility] 02/12/2024 13:05:29 influenza, unspecified formulation 2 completed Dary Farmer [facility] 02/12/2024 13:05:46 influenza, unspecified formulation 4 completed Dary Farmer [facility] 02/12/2024 13:05:53 SARS-COV-2 (COVID-19) vaccine, UNSPECIFIED 1 completed Dary Farmer [facility] 02/12/2024 13:06:09 SARS-COV-2 (COVID-19) vaccine, UNSPECIFIED 1 completed Dary Farmer [facility] 02/12/2024 13:06:18 SARS-COV-2 (COVID-19) vaccine, UNSPECIFIED 2 completed Dary Farmer [facility] 02/12/2024 13:06:26 influenza, unspecified formulation 3 completed Dary Farmer [facility] 02/12/2024 13:06:49 Tdap 4 completed Dary Farmer [facility] 02/12/2024 13:07:12 Past Encounters Encounter ID Performer Location Encounter Start Date Encounter Closed Date Diagnosis/Indication Diagnosis SNOMED-CT Code Diagnosis ICD10 Code Diagnosis IMO Codes Diagnosis Note [id number] JEN Rendon [facility] on [address] [place] [address] 06/22/2017 16:05:35 06/27/2017 08:58:26 Mental retardation 62241550 F78 Supportive careHCP not invoked-ap pears capable of making own medical decisions presently Atrial fibrillation 4943 6004 I48.0 Not on anticoagul ationASA 81 mg dailySotal ol 160 mg BIDMonitor HR Tetralogy of Fallot 8629 9006 Q21.3 Hx ofs/p repair and shunt Essential hypertension 94257691 I10 Norvasc 2.5 mg dailySotal ol 160 mg BIDMonitor bp and labs Mixed hyperlipidemia 267 115935 E78.2 Diet controlled Will check lipid panel Benign pro static hyperplasia 461123172 N40.0 s/p TURP in Mar.Report ing dysuria-wi ll obtain urine for UA, C&SMonitor Chronic ob structive pulmonary disease 08806995 J43.8 Duonebs prnMonitor respirator y status Diabetes mellitus 141132 09 E11.9 Glipizide 5 mg dailyMetfo rmin 1000 BID Monitor accuchecks HbA1c excellent 06/20-follo w Hypothyroidism 82015970 E03.8 Levothyrox ine 75 mcg dailyTSH wnl 03/28/17Re peat annually Gastroesop hageal reflux disease without esophagitis 633918855 K21.9 Omeprazole 20 mg dailyMonit or sxs Loose stool 918517601 R1 9.5 Monitor loose stools-if continuing will obtain stool for c. diff [id number] JEN Rendon [facility] on [address] [place] [address] 07/14/2017 12:51:22 07/19/2017 09:56:01 Tetralogy of Fallot 11235913 Q21.3 Hx ofs/p repair and shuntCardi ology eval prn Atrial fibrillation 4943 6004 I48.0 Not on anticoagul ationASA 81 mg dailySotal ol 160 mg BID-add parameters to hold for HR <55Obtain EKG due to c/o chest painMonito r and if chest pain worsening or associated with SOB send to ED for eval [id number] SHANNON CALIXTO [facility] on [address] [place] [address] 07/25/2017 15:44:04 07/27/2017 10:54:49 Atrial fibrillation 60787344 I48.0 Not on anticoagul ationASA 81 mg dailySotal ol 160 mg BID-add parameters to hold for HR <55sent back from ED with no changes, chest pain resolved with tramadol 50 mg Tetralogy of Fallot 8629 9006 Q21.3 Hx ofs/p repair and shuntCardi ology eval prn Ankle pain 654898879 M25 .572 Pain in left ankle, achillesPT to eval and treat [id number] JEN Rendon [facility] on [address] [place] [address] 08/10/2017 14:47:44 08/17/2017 14:44:41 Atrial fibrillation 27533775 I48.0 Not on anticoagul ationASA 81 mg dailySotal ol 160 mg BIDHR stableF/u with cardiology , PCP Tetralogy of Fallot 8629 9006 Q21.3 Hx ofs/p repair and shuntCardi ology eval prn Ankle pain 525319383 M25 .572 Pain in left ankle, achilles-p atient reports hx of torn achillesPa in control with tramadolOu tpatient f/u with PCP to consider surgical repair Mental retardation 65231 005 F78 Supportive careServic es in place for discharge home Essential hypertension 00598526 I10 Norvasc 2.5 mg dailySotal ol 160 mg BIDBP with good control Mixed hyperlipidemia 267 524626 E78.2 Diet controlled Will check lipid panel Benign pro static hyperplasia 029085740 N40.0 s/p TURP in Dec.F/u with urology prn Chronic ob structive pulmonary disease 65670904 J43.8 Duonebs prnMonitor respirator y status Diabetes mellitus 000459 09 E11.9 Glipizide 5 mg dailyMetfo rmin 1000 BID Monitor accuchecks F/u with PCP Hypothyroidism 95115704 E03.8 Levothyrox ine 75 mcg dailyTSH wnl 03/28/17Re peat annually Gastroesop hageal reflux disease without esophagitis 950844834 K21.9 Omeprazole 20 mg dailyMonit or sxs [id number] Ashley Irwin NP [facility] [address] 02/12/2024 12:59:52 02/13/2024 09:38:01 Atrial fibrillation 06623786 I48.0 has AICD with hx of teralogy of fallotriva roxaban 20 mg po dailySotal ol 80 mg BIDHR stableF/u with cardiology on 02/25 and 02/26? Tetralogy of Fallot 8629 9006 Q21.3 Hx ofs/p repair and shunt with AICD in placeCardi ology eval prn Mental retardation 22577 005 F79 Supportive careServic es in place for discharge home Essential hypertension 60084733 I10 contSotalo l 80mg BIDbp stablecons ider restarting lisinopril and isosorbide Mixed hyperlipidemia 267 575964 E78.2 Diet controlled monitor Benign pro static hyperplasia 747436426 N40.0 s/p TURP in Mar.tamulo sin on hold due to ortho bp, consider restarting F/u with urology prn Chronic ob structive pulmonary disease 36908398 J43.8 breo ellipta 100 mcg/25 mcg 1 puff dailyDuone bs prnalb prnMonitor respirator y status Diabetes mellitus 014704 09 E11.9 Metformin 500 mg BIDMonitor accuchecks monitor Hypothyroidism 20274298 E03.8 Levothyrox ine 75 mcg dailytsh aboveRepea t prn Gastroesop hageal reflux disease without esophagitis 219797907 K21.9 esomeprazo le 20 mg dailyMonit or sxs Obesity 669284229 E66.9 pt with obesitydie tician consult for good nutritiona l choicescar diac dietmonito r Peripheral neuropathy due to type 2 diabetes mellitus 8230532201 107 E11.42 gabapentin 300 mg po bidGlipizi de 5 mg dailyMetfo rmin 1000 BIDMonitor accuchecks Mixed anxi ety and depressive disorder 171884355 F41.8 risperidon e 1.5 mg po qhsquetiap ine 100 mg po qhaescital opram 20 mg po dailyhydro xyzine 25 mg po bidlorazep am 0.5 mg po daily prn anxietytra zodone 50 mg po qhsmonitor Pain of knee region 1003 053260 M25.569 xray at [facility] neg for acute concernsno ibuprophen due to xarelto per ptlidocain e patch to right knee on in amtyl 650 mg po tid and prn nte 3 gram/24 hrsmonitor Obstructiv e sleep apnea syndrome 54655923 G47.33 has osapt reports his cpap broke and was supposed to get one today but missed his apptresche d apptmonito r Chest pain 09878012 R07. 9 resolvedpt had chest pain on admission to regalcares een at [facility] and ruled out acute cardiac disease and returned to rehabmonit or Orthostati c hypotension 09329832 I95.1 pt with orthostati c hypotensio n upon standing, resolved with 1 liter of fluid and decreased bp medsencour age po fluidspt educated and aware to get up slowlypt had lisinopril , isosorbide , and tamsulosin heldplan to restart one by one as ableorthos tatic bp daily x 2 weeks, doc in pcc Adult fail ure to thrive syndrome 580091564 R62.7 pt reports 11 hospitaliz ations for falls since 04/2022 and feels if he needs to go back to intermediate he is open to it.monitor Recurrent falls 28880436 2 R29.6 pt with recurrent fallssuppo rtive caretherap y eval and treatortho static bp, get up slowly with walkermoni tor Asthenia 43503589 R53.1 pt with weaknessPT /OT eval and treatmonit or [id number] Ivelisse Hart MD [address] [place] [address] 02/16/2024 16:01:25 02/19/2024 11:53:18 Chest pain 59427050 R07.89 Chronic and recurrent ACS ruled out numerous times.Cont inue tx with gabapentin 300 mg TID, APAP 650 mg TID and 650 mg q 4 hrs prn (NTE TD of 3000 mg/d).Does have NTG SL ordered, but unclear if he needs this.Monit or sxs.Do not send to ED for CP unless changes in VS. Orthostati c hypotension 05410962 I95.1 BP has not been orthostati c [...] F/U with cardio as planned. Essential hypertension 16442024 I10 With some borderline SBPs since here, but mostly in good control off lisinopril , isosorbide and tamsulosin .Would hesitate to restart any anti-hyper tensives unless SBP consistent ly >150, due to hx of orthostasi s.Monitor BP, pulse and labs. Mixed hyperlipidemia 267 236993 E78.2 Continue ezetimibe 10 mg qd.F/U as outpt. Benign pro static hyperplasia 815768169 N40.0 No current sxs.Tamsul osin on hold due to orthostati c hypotensio n, consider restarting .F/u with uro as planned Diabetes mellitus 698591 09 E11.9 Fingerstic ks checked twice fasting since here, both low.Hga1C was borderline at 6.9Continu e metformin 500 mg BIDMonitor fingerstic ks prn and adjust meds as outpt. Hypothyroidism 26161939 E03.8 TSH WNL.Contin ue levothyrox ine 75 mcg qdMonitor TSH yearly. Gastroesop hageal reflux disease without esophagitis 431315080 K21.9 No current sxs.Contin ue esomeprazo le 20 mg qdMonitor GI sxs Obesity 839726141 E66.09 Continue to encourage healthy eating and physical activity.D ietician consult.Mo yessicaor wts. Mixed anxi ety and depressive disorder 193348532 F41.8 With hx of behaviors, but good since here.Quentin nue risperidon e 1.5 mg qhs, quetiapine 100 mg qhs, escitalopr am 20 mg qd, hydroxyzin e 25 mg BID, trazadone 50 mg qhs, melatonin 10 mg qhs, and lorazepam 0.5 mg po qd prn.Mood good today.Neelima tor mood.Consu lt psych prn Pain of knee region 1003 881144 M25.561 Not discussed today.Cont inue meds as above and lidocaine patch qd.PT/OT as above.Neelima tor Obstructiv e sleep apnea syndrome 57932482 G47.33 Currently without CPAP, needs f/u appt to get new one.Nursin g to reschedule . Recurrent falls 11205413 2 R29.6 As above. Bifascicular block 30480 003 I45.[address]Work ing well per last hosp check.F/U with cardio as planned, on 02/26 at 1:30 for office visit and 2:20 for device check at [address] [facility]. Thrombocyt openic disorder 259574760 D69.59 Have been running low for many years. I suspect due to EtOH, but much consider rivaroxaba n effect also.No change in tx unless plts drop to <50,000 or signs of bleeding. Intellectu al disability 694885090 F70 Able to make his own decisions. Provide supportive care.Monit or function. Asthma 520231264 J45.30 No current sxs.Contin ue Breo ellipta 100/25 mcg 1 puff qd and albuterol MDI 2 puffs q 4 hrs prn.Monito r resp status Chronic neck pain 512057 1845 107 M54.2 It seems he has different c/o on different days, but today he says he's had neck pain for awhile.Gomez l add Percocet 5/325 mg qhs at pt's request.OK as long as only one tab/day.Co ntinue other meds as above.Cons ider increasing gabapentin . Harmful pa ttern of use of alcohol 12293955 F10.11 Sober for almost 11 months, very proud of himself.qu it after almost dying after drinking a whole bottle of peppermint schnapps last march.W as in sober house until recently.N ow following up with AA and sponsor.En courage continued sobriety. Migraine 59046946 G43.90 9 Sees neuro.No sxs since here.Quentin nue sumatripta n 50 mg BID prn.Monito r sxs. Frequent a ttender of emergency room 5097329543 64738 Z76.89 With multiple ED visits at various facilities .Only rarely with documentab le problem.Ne eds to make care plan with PCP and home health as outpt.Avoi d transfer to ED while here unless clearly acute problem. [id number] Ashley Irwin, [facility] [address] 02/22/2024 10:53:07 02/23/2024 10:15:01 Orthostatic hypotension 72708100 I95.1 BP has not been orthostati c since here.bp 148/82 todayDoing well with rehab.Cont inue PT/OT for strengthen ing, balance, gait training, safety and function.C ontinue fall precaution s.Monitor for safety.Mon itor orthostati c vitals daily doc in pcc and monitor sxs. Chest pain 67280754 R07. 89 Chronic and recurrent ACS ruled out numerous times.with notable history of tetrology of fallotwork ed up for chest pain in ED 02/20Conti nuegabapen tin 300 mg TID, APAP 650 mg TID and 650 mg q 4 hrs prn (NTE TD of 3000 mg/d).NTG SL prn chest pain, call 911 if he uses thisMonito r sxs. Bifascicular block 85959 [address] I45[address].Work ing well per last hosp check.F/U with cardio as planned, on 02/26 at 1:30 for office visit and 2:20 for device check at [address] Recurrent falls 05156294 2 R29.6 As above. Atrial fibrillation 4943 6004 I48.0 Rate in good control on sotalol 80 mg BID.Contin ueXarelto 20 mg qd for AC.Monitor HR and bleeding risk.F/U with cardio. Tetralogy of Fallot 8629 9006 Q21.3 Hx ofs/p repair and shunt placement. F/U with cardio as planned. Essential hypertension 17137707 I10 overall bp stable with some 140sdecent control off lisinopril , isosorbide and tamsulosin .Would hesitate to restart any anti-hyper tensives unless SBP consistent ly >150, due to hx of orthostasi s.Monitor BP, pulse and labs. Thrombocyt openic disorder 107387862 D69.59 Have been running low for many years. I suspect due to EtOH, but much consider rivaroxaba n effect also.No change in tx unless plts drop to <50,000 or signs of bleeding. Intellectu al disability 020583305 F70 Able to make his own decisions. Provide supportive care.Monit or function. Chronic neck pain 696993 4031 107 M54.2 It seems he has different c/o on different days, but today he says he's had neck pain for awhile.con tPercocet 5/325 mg qhs (added per md at pt's request.)C ontinue other meds as above.Cons ider increasing gabapentin if persists Mixed hyperlipidemia 267 728588 E78.2 Continue ezetimibe 10 mg qd.F/U as outpt. Benign pro static hyperplasia 752954672 N40.0 No current sxs.Tamsul osin on hold due to orthostati c hypotensio n, consider restarting .F/u with uro as planned Asthma 019651757 J45.30 No current sxs.Contin ue Breo ellipta 100/25 mcg 1 puff qd and albuterol MDI 2 puffs q 4 hrs prn.Monito r resp status Diabetes mellitus 565377 09 E11.9 Fingerstic ks checked twice fasting since here, both low.Hga1C was borderline at 6.9Continu emetformin 500 mg BIDMonitor fingerstic ks prn and adjust meds as outpt. Hypothyroidism 21668954 E03.8 TSH WNL.Contin uelevothyr oxine 75 mcg qdMonitor TSH yearly. Gastroesop hageal reflux disease without esophagitis 404529935 K21.9 No current sxs.Contin ueesomepra zole 20 mg qdMonitor GI sxs Obesity 277533960 E66.09 Continue to encourage healthy eating and physical activity.D ietician consult.Mo ilda wts. Mixed anxi ety and depressive disorder 873090155 F41.8 With hx of behaviors, but good since here.Quentin nuerisperi done 1.5 mg qhs, quetiapine 100 mg qhs, escitalopr am 20 mg qd, hydroxyzin e 25 mg BID, trazadone 50 mg qhs, melatonin 10 mg qhs, and lorazepam 0.5 mg po qd prn.Monito r mood.Consu lt psych prn Pain of knee region 1003 888926 M25.561 Continue meds as above and lidocaine patch qd.PT/OT as above.Neelima tor Obstructiv e sleep apnea syndrome 37684586 G47.33 Currently without CPAP, needs f/u appt to get new one.Nursin g to reschedule . Harmful pa ttern of use of alcohol 81005036 F10.11 Sober for almost 11 monthsquit after almost dying after drinking a whole bottle of peppermint schnapps last march.W as in sober house until recently.N ow following up with AA and sponsor.En courage continued sobriety. Migraine 16111997 G43.90 9 Sees neuro.No sxs since here.Quentin nuesumatri ptan 50 mg BID prn.Monito r sxs. Frequent a ttender of emergency room 5704207637 60552 Z76.89 With multiple ED visits at various [...] Guarantor Name 02/27/2024 1 [place] [employer] Joaquín Barrientos [id number] [facility] 02/27/2024 2 [place] [facility] Joaquín Barrientos [id number] [facility] 02/27/2024 1 [id number] ELIG[facility] (MEDICARE REPLACEMENT/AD VANTAGE - HMO) Joaquín Barrientos [id number] [facility] 02/27/2024 1 [facility] - DOS ON OR AFTER 2022 - MEDICARE [place]VANTAGE [place] (MEDICARE REPLACEMENT/AD VANTAGE - PPO) Joaquín Barrientos [id number] [facility] Notes Date Note Type Note Provider Name and Address Organization Details Recorded Time 07/25/2017 text/html Acute rounding visit on 57 yo male who was sent [...] can help with the discomfort. SHANNON CALIXTO [address] [place] [address], [address], [place], [address], [facility] 07/25/2017 16:00:05 08/10/2017 text/html 57 yo male [...] pursuing surgical repair following discharge. Razia diggs, [facility] 08/10/2017 15:11:11 02/12/2024 text/html Pt seen for an initial intake summary. Joaquín is a 64 yo male LTC resident [place] [facility] [place] PMH:mental retardation, a. fib, AICD, tetralogy of fallot s/p repair/shunt, htn, hld, bph, ponce, COPD, TURP. Pt is a 64 yr old man who presented to [facility] with weakness and dizziness and right knee [...] to rehab he was later sent to [facility] for chest pain on 02/10 and discharged [...] MOLST: full code Ashley Irwin, BANDAR [address], [address], [place], [address], [facility] - [employer] 02/12/2024 14:58:46 02/16/2024 text/html This is a 64 yo man who is here for rehab after an acute hospitalization for a syncopal episode.He [facility] on fter an episode which he described as just walking and thenpassing out.Initial eval in ED was unremarkable, but when they tried to get him up to walk he got dizzy and was markedly orthostatic.He initially got po fluids, and then 1 L of IV fluid bolus and was continued on 100 ml/hr. He remained orthostatic so was admitted.He also began c/o CP while in the ED, which had been a frequent c/o over the past months. His CP was reproducible with palpation and EKG, CXR and labs were non-acute.Of note, he had been in the [facility] ED or admitted 14 times over the past 6 months, also some visits at [facility] and [facility]. With c/o of falls, syncope and CP. [...] 02/10 and was transferred back to the [facility] ED.W/U was essentially neg, except for sl [...] since 03/2023, and obesity. Ivelisse Hart MD [address] [place] [address], [address], [place], [address], [facility] [employer] 02/16/2024 19:14:08 02/22/2024 text/html This is a [...] an appointment with Dr Nix on 02/26 starch dumper per pt. Due to dizziness and syncopal [...] Of note, he had been in the [facility] ED or other ED s admitted and for CP 16 times over the past 6 months, also some visits at [facility] and [facility]. With c/o of falls, syncope and CP. Per last admission:Lisinopril, isosorbide as well as tamsulosin have been held in the hospital, he will be discharged without these, to a rehab. [facility] discharge, these could be reintroduced 1 after the other based on his symptoms/blood pressure. Ashley Irwin NP [address], [address], [place], [address], [facility] [employer] 02/22/2024 11:20:05
--- OUTSIDE RECORDS SUMMARY | 2025-02-14 21:22 | XMS_ITS | Clinical Summary ---
Author Organization [facility] Address [address] [place] [address] Care Team Providers Care Digital Account Supervisor Name Role Phone Amari Vyas DO Primary Care Provider [phone] Allergies Active Allergy Reactions Criticality Noted Date Comments Bee Venom Shortness Of Breath High 12/25/2020 Ibuprofen Other (See Comments) 07/31/2018 Impaired renal function Levetiracetam Itching Low 06/05/2018 Atorvastatin Hives Medium 06/02/2018 Pea Hives Medium 06/02/2018 Pea Anaphylaxis,Shortnes s Of Breath,Hives,Itching High 01/10/2008 Medications * This document contains [...] 06/02/2018 Prolonged QT interval 06/02/2018 Dyspnea 06/02/2018 Encounters Date Type Department Care Team Description 12/19/2024 3:26 PM EDT - 12/19/2024 7:11 PM EDT [facility] Emergency Department [address] [place] [id number] Daron Floyd DO Chronic pain (Primary Dx); Chest pain Discharge Disposition: Home or Self Care 12/19/2024 Travel from Last 3 Months Social History [...] Sign Reading Time Taken Comments Blood Pressure 158/79 12/19/2024 6:59 PM EDT Pulse 84 12/19/2024 6:59 PM EDT Temperature 36.8 C (98.3 F) 12/19/2024 6:59 PM EDT Respiratory Rate 18 12/19/2024 6:59 PM EDT Oxygen Saturation 97% 12/19/2024 6:59 PM EDT Inhaled Oxygen Concentration - - Weight 109 kg (240 lb) 12/19/2024 3:22 PM EDT Height 175.3 cm (5' 9 ) 12/19/2024 3:22 PM EDT Body Mass Index 35.44 12/19/2024 3:22 PM EDT Plan of Treatment Health Maintenance Due Date Last Done Comments Hepatitis C Virus Screening 1960 DTaP/Tdap/Td Vaccines (1 - Tdap) 1981 Colonoscopy 2007 Pneumococcal Vaccines 50+ (1 of 1 - PCV) 01/26/2012 RSV Vaccine 50 years and older and Patients (1 - Risk 50-74 years 1-dose series) 01/26/2012 Zoster (Shingles) Vaccine (1 of 2) 01/26/2012 Influenza Vaccine 11/01/2024 02/08/2024, , 12/14/2023, Additional history exists COVID-19 Vaccine ( season) 2024 03/08/2022, 06/03/2020, 05/06/2020 HIV Screening Completed 12/12/2023 Hemoglobin A1C Discontinued 08/04/2024, 01/02, 12/24/2020, Additional history exists Hepatitis B Vaccines Aged Out No long er eligible based on patient's age to complete this topic Medical Devices 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 Device 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 Shelf Expiration Date Model / Serial / Lot Icd ICD [employer] 2411-36c Yeni Nelson [id number] Implanted:05/04 (Quantity not on file) ICD [employer] [id number] ELLIPSE NELSON / [id number] / Pacemaker Pacemaker Procedures Procedure Name Priority Date/Time Associated Diagnosis Comments HIGH SENSITIVITY TROPONIN T STAT 12/19/2024 5:[address] HEAD W/O CONTRAST STAT 12/19/2024 5:04 PM EDT LACTIC ACID, PLASMA STAT 12/19/2024 3 :49 PM EDT HIGH SENSITIVITY TROPONIN T CARD 12/19/2024 3:49 PM EDT LIPASE STAT 12/19/2024 3:49 PM EDT COMPLETE BLOOD COUNT, WITH DIFFERENTIAL STAT 12/19/2024 3:49 PM EDT MAGNESIUM STAT 12/19/2024 3:49 PM EDT COMPREHENSIVE METABOLIC PANEL STAT 12/19/2024 3:49 PM EDT HEMOGLOBIN A1C WITH ESTIMATED AVERAGE GLUCOSE STAT 01/22/2023 7:00 AM EDT from Last 3 Months or Most Recently Relevant to Health Maintenance Results * High Sensitivity Troponin T (12/19/2024 5:37 PM EDT) Only the most recent of2 resultswithin the time period is included. High Sensitivity Troponin T 8 <23 ng/L 12/19/2024 6:12 PM EDT [facility] Delta (Change) NO CHANGE <3 12/19/2024 6:12 PM EDT [facility] Blood Blood specimen / Unknown 12/19/2024 5:37 PM EDT 12/19/2024 5:42 PM EDT Daron Floyd DO LAB BLOOD ORDERABLES Final Res ult [address] [address], [address] [address] * CT Head w/o contrast (12/19/2024 5:04 PM EDT) Anatomical Region Laterality Modality Head Computed Tomogra phy 12/19/2024 5:06 PM EDT Impressions 12/19/2024 5:10 PM EDT 1. Similar appearance of increased density in the left frontal white matter, which could represent an area of calcification/mineralization. The apparent lack of interval change is suggestive of a benign process. 2. Mild volume loss and likely chronic small vessel ischemic changes, but no definite acute intracranial abnormality identified. Narrative 12/19/2024 5:10 PM EDT STUDY: CT HEAD W/O CONTRAST INDICATION: possible syncope, head injury COMPARISON: 09/04/2020. INTRAVENOUS CONTRAST: None. TECHNIQUE: Axial images were acquired from the skull base to the vertex. Iterative reconstruction was employed. FINDINGS: No acute intracranial hemorrhage, mass effect, or midline shift is seen. There is a stable area of increased density in the left frontal white matter adjacent to the left frontal horn. There is no CT evidence of an acute, major vascular distribution infarction. Small hypodensities are seen in the basal ganglia regions bilaterally, likely chronic lacunar type infarctions. The ventricles and sulci are somewhat enlarged, consistent with mild volume loss. There is patchy bilateral periventricular and subcortical white matter hypodensity, likely due to chronic small vessel ischemic changes. There is mild left maxillary sinus thickening. Procedure Note Soumya Godinez MD - 12/19/2024 STUDY: CT HEAD W/O CONTRAST INDICATION: possible syncope, head injury COMPARISON: 09/04/2020. INTRAVENOUS CONTRAST: None. TECHNIQUE: Axial images were acquired from the skull base to the vertex.Iterative reconstruction was employed. FINDINGS: No acute intracranial hemorrhage, mass effect, or midline shift is seen.There is a stable area of increased density in the left frontal whitematter adjacent to the left frontal horn. There is no CT evidence of anacute, major vascular distribution infarction. Small hypodensities are seen in the basal ganglia regionsbilaterally, likely chronic lacunar type infarctions. The ventricles andsulci are somewhat enlarged, consistent with mild volume loss. There ispatchy bilateral periventricular and subcortical white matter hypodensity, likely due to chronic small vesselischemic changes. There is mild left maxillary sinus thickening. IMPRESSION: 1. Similar appearance of increased density in the left frontal whitematter, which could represent an area of calcification/mineralization. Theapparent lack of interval change is suggestive of a benign process. 2. Mild volume loss and likely chronic small vessel ischemic changes, butno definite acute intracranial abnormality identified. Daron Floyd DO IMG CT ORDERABLES Final Result * (ABNORMAL) Complete Blood Count, with Differential (12/19/2024 3:49 PM EDT) Pathologist [facility] White Blood Cell Count 5.2 4.0 - 11.0 Thou/uL 12/19/2024 4:00 PM EDT [facility] Platelet Count 83(L) 150 - 450 Thou/uL 12/19/2024 4:00 PM T [facility] Comment:Test results repeate d. Hemoglobin 9.4(L) 13.0 - 17.7 g/dL 12/19/2024 4:00 PM T [facility] Hematocrit 30.1(L) 39.0 - 54.0 % 12/19/2024 4:00 PM T [facility] Red Blood Cell Count 3.54(L) 4.50 - 6.20 Mil/uL 12/19/2024 4:00 PM EDT [facility] MCV 85 80 - 100 fL 12/19/2024 4:00 PM EDT [facility] MCH 26.6(L) 27.0 - 31.0 pg 12/[facility]24 [facility] 31.2 30.0 - 36.0 g/dL 12/19/2024 4:00 PM T [facility] RDW 13.9 11.5 - 14.5 % 12/19/2024 4:[address] [facility] MPV 11.9 7.5 - 12.5 fL 12/19/2024 4:[address] [facility] Immature Platelet Fraction 3.7 1.2 - 8.6 % 12/19/2024 [facility] Neutrophils Auto 56.4 % 12/20/19 25 4:01 PM EDT [facility] Immature Granulocytes 0.8 % 12/19/2024 4:01 PM EDT [facility] Lymphocytes Auto 23.0 % 12/20/19 25 4:01 PM EDT [facility] Monocytes Auto 11.3 % 12/19/2024 4:01 PM EDT [facility] Eosinophils Auto 7.7 % 12/20/19 25 4:01 PM EDT [facility] Basophils Auto 0.8 % 12/19/2024 4:01 PM EDT [facility] Abs Neutrophils Auto 2.94 2.00 - 7.50 Thou/uL 12/19/2024 4:01 PM EDT [facility] Abs Immature Granulocytes 0.04 0.00 - 0.10 Thou/uL 12/19/2024 4:01 PM EDT [facility] Abs Lymphocytes Auto 1.20(L) 1.50 - 4.50 Thou/uL 12/19/2024 4:01 PM EDT [facility] Abs Monocytes Auto 0.59 0.20 - 1.50 Thou/uL 12/19/2024 4:01 PM EDT [facility] Abs Eosinophils Auto 0.40 0.00 - 0.70 Thou/uL 12/19/2024 4:01 PM EDT [facility] Abs Basophils Auto 0.04 0.00 - 0.20 Thou/uL 12/19/2024 4:01 PM EDT [facility] Blood Blood specimen / Unknown 12/19/2024 3:49 PM EDT 12/19/2024 3:52 PM EDT Daron Floyd DO LAB BLOOD ORDERABLES Final Res ult [address] [address], [address] [address] * Magnesium (12/19/2024 3:49 PM EDT) Magnesium 2.0 1.6 - 2.7 mg/dL 12/19/2024 4:22 PM EDT [facility] Blood Blood specimen / Unknown 12/19/2024 3:49 PM EDT 12/19/2024 3:52 PM EDT us Daron Floyd DO LAB BLOOD ORDERABLES Final Res ult [address] [address], [address] [address] * Lipase (12/19/2024 3:49 PM EDT) Lipase 34 13 - 60 U/L 12/19/2024 4:22 PM EDT [facility] Blood Blood specimen / Unknown 12/19/2024 3:49 PM EDT 12/19/2024 3:52 PM EDT us Daron Floyd DO LAB BLOOD ORDERABLES Final Res ult Performing Organization Address City/[facility] [address]/ZIP Co de Phone Number [address] [address], [address] [address] * Lactic Acid, Plasma Now and repeat in 2h (12/19/2024 3:49 PM EDT) Lactic Acid 1.1 0.5 - 1.9 mmol/L 12/19/2024 4:15 PM EDT [facility] Blood Blood specimen / Unknown 12/19/2024 3:49 PM EDT 12/19/2024 3:52 PM EDT us Daron Floyd DO LAB BLOOD ORDERABLES Final Res ult [address] [address], [address] [address] * (ABNORMAL) Comprehensive Metabolic Panel (12/19/2024 3:49 PM EDT) Glucose 104(H) 65 - 99 mg/dL 12/19/2024 4:22 PM EDT [facility] Comment:Fasting: <100 mg/dL, Non-Fasting: <200 mg/dL (ADA 2005) Blood Urea Nitrogen (BUN) 18 8 - 21 mg/dL 12/19/2024 4:[address] [facility] Creatinine 1.24 0.50 - 1.30 mg/dL 12/19/2024 4:[address] [facility] eGFR 66 >59 12/19/2024 4:[address] [facility] Comment:CKD-EPI (2020) in mL /min/1.73 sq meters. Sodium 141 136 - 145 mmol/L 12/19/2024 4:[address] [facility] Potassium 4.5 3.4 - 5.3 mmol/L 12/19/2024 4:[address] [facility] Chloride 108(H) 98 - 107 mmol/L 12/19/2024 4:[address] [facility] CO2 21(L) 22 - 33 mmol/L 12/19/2024 4:[address] [facility] Calcium 8.2(L) 8.7 - 10.5 mg/dL 12/19/2024 4:[address] [facility] Alkaline Phosphatase 69 45 - 128 U/L 12/19/2024 4:[address] [facility] Aspartate Aminotrans (AST) 14 10 - 55 U/L 12/19/2024 4:[address] [facility] Alanine Aminotrans (ALT) 12 10 - 55 U/L 12/19/2024 4:[address] [facility] Bilirubin, Total 0.4 0.2 - 1.0 mg/dL 12/19/2024 4:[address] [facility] Protein, Total 5.9(L) 6.3 - 8.3 g/dL 12/19/2024 4:[address] [facility] Albumin 3.8 3.4 - 4.8 g/dL 12/19/2024 4:[address] [facility] BUN/Creatinine Ratio 15 10.0 - 25.0 Ratio 12/19/2024 4:[address] [facility] Globulin 2.1 1.5 - 3.9 g/dL 12/19/2024 4:[address] [facility] Albumin/Globulin Ratio 1.8 1.0 - 3.0 Ratio 12/19/2024 4:22 PM EDT [facility] Anion Gap 12 7 - 17 12/19/2024 4:41 PM EDT [facility] Blood Blood specimen / Unknown 12/19/2024 3:49 PM EDT 12/19/2024 3:52 PM EDT Daron Floyd DO LAB BLOOD ORDERABLES Final Res ult [address] [address], [address] [address] * (ABNORMAL) Hemoglobin A1c with Estimated Average Glucose (01/22/2023 7:00 AM EDT) Hemoglobin A1C 7.1(H) <5.7 % 01/22/2023 8:43 AM EDT [facility] Comment: A1c% Interpretation 5.7 - 6.0 Increase risk of diabetes 6.1 - 6.4 Higher risk of diabetes > or = 6.5 Consistent with diabetes Diabetes Care, 33(Supp 1):S1-S61, 2010 Estimated Average Glucose 157 mg/dL 01/22/2023 8:43 AM EDT [facility] Blood specimen (specimen) Blood specimen / Unknown 01/22/2023 7:00 AM EDT 01/22/2023 7:33 AM EDT Christophe Bullard MD LAB BLOOD ORDERABLES Fi nal Result HOSPITAL LAB See Below [address] [address] from Last 3 Months or Most Recently Relevant to Health Maintenance Insurance [facility] [place] MEDICARE OUT OF NETWORK Member Subscriber Plan / Payer (Ef fective 2013-Present) Name:Joaquín Barrientos Relation to Subscriber:Self Name:Joaquín Barrientos Payer ID:Not on file Group ID:Not on file Type:Not on file Address: [address] [facility] [place] OUT OF NETWORK Advance Directives * Full Code (Latest Code Status on File) Date Activated Date Inactivated Comments 01/22/2023 5:25 AM 12/19/2024 3:16 PM * Full Code Date Activated Date Inactivated Comments 01/22/2023 12:00 AM 01/22/2023 5:25 AM * Full Code Date Activated Date Inactivated Comments 11/02/2019 10:36 PM 09/04/2020 9:05 PM * Full Code Date Activated Date Inactivated Comments 06/06/2018 4:17 PM 11/02/2019 7:29 PM * Full Code Date Activated Date Inactivated Comments 06/02/2018 2:18 PM 06/06/2018 4:09 PM Care Teams Digital Account Supervisor Relationship Specialty Start Date End Date Amari Vyas DO [address] [place] [id number] PCP - General Internal Medicine 01/21/23
--- OUTSIDE RECORDS SUMMARY | 2025-02-14 21:22 | XMS_ITS | Data Portability ---
Author Organization [facility], svmg_admin Address [address] [place] [id number] Care Team Providers Care Zinc Plate Cutter Name Role Phone YULIET ALEMANN Referring Provider [facility] Primary Care Provider Assessment No assessment recorded. Plan of Treatment Reminders Order Date Submit Date Provider Last Modified By Organization Details Last Modified Time Details Appointments None recorded. Lab lipid panel, serum 2019 020 MARY [facility], [address] [place] [address], [address], 0 16:07:45 CMP, serum or plasma 2019 020 MARY [facility], [address] [place] [address], [address], 0 16:07:45 magnesium, serum or plasma 2019 020 MARY [facility], [address] [place] [address], [address], 0 16:07:46 BMP, serum or plasma 2019 020 [place] [address] [facility], [address] [place] [address], [address], 0 11:23:52 Referral None recorded. Procedures None recorded. Surgeries None recorded. Imaging US, echocardio gram - 2D colorflow and Doppler, with contrast if clinically indicated per protocol. To be read by Dr. Howell [address] ([facility]), [address] [place], [address], 1 11:42:05 electrocar diogram 2019 020 [facility], [address] [place], [address], 0 11:06:51 Medication Orders acetaminop hen 500 mg capsule 2019 020 INTERFACE Not available 0 09:48:13 amoxicilli n 500 mg capsule 2019 INTERFACE Not available 0 09:53:18 sotalol 80 mg tablet 2019 020 INTERFACE Not available 0 09:44:36 amlodipine 2.5 mg tablet 2019 020 INTERFACE Not available 0 09:44:36 lisinopril 5 mg tablet 2019 020 INTERFACE Not available 0 09:48:16 Patient TargetsNo targets recorded. Patient Instructions Encounter Date Encounter Id Patient Instructions Last Modified By Organization Details Last Modified Time 06/03/2019 [id number] heart blocks: care instructions [email or web address] Not available [...] A total of 45 minutes were spent [id number] with the patient during this encounter and [...] Available [facility] ([facility]) [address] [place], [address], 06/03/2019 16:07:45 06/03/19 20 06/03/2019 CMP, serum or plasm a BUN 21 mg/dL 6-24 Not Available [facility] ([facility]) [address] [place], [address], 06/03/2019 16:07:45 06/03/19 20 06/03/2019 CMP, serum or plasm a creatinine 1.30 mg/dL 0.76-1 .27 above high normal Not Available [facility] ([facility]) [address] [place], [address], 06/03/2019 16:07:45 06/03/19 20 06/03/2019 CMP, serum or plasm a eGFR if nonafricn AM 61 mL/mi n/1.7 3 >59 Not Available [facility] ([facility]) [address] [place], [address], 06/03/2019 16:07:45 06/03/19 20 06/03/2019 CMP, serum or plasm a eGFR if africn AM 70 mL/mi n/1.7 3 >59 Not Available [facility] ([facility]) [address] [place], [address], 06/03/2019 16:07:45 06/03/19 20 06/03/2019 CMP, serum or plasm a BUN/creatini ne ratio 16 9-20 Not Available [facility] ([facility]) [address] [place], [address], 06/03/2019 16:07:45 06/03/19 20 06/03/2019 CMP, serum or plasm a sodium 139 mmol/ L 134-14 4 Not Available [facility] ([facility]) [address] [place], [address], 06/03/2019 16:07:45 06/03/19 20 06/03/2019 CMP, serum or plasm a potassium 4.8 mmol/ L 3.5-5. 2 Not Available [facility] ([facility]) [address] [place], [address], 06/03/2019 16:07:45 06/03/19 20 06/03/2019 CMP, serum or plasm a chloride 102 mmol/ L 96-106 Not Available [facility] ([facility]) [address] [place], [address], 06/03/2019 16:07:45 06/03/19 20 06/03/2019 CMP, serum or plasm a carbon dioxide, total 23 mmol/ L 20-29 Not Available [facility] ([facility]) [address] [place], [address], 06/03/2019 16:07:45 06/03/19 20 06/03/2019 CMP, serum or plasm a calcium 8.9 mg/dL 8.7-10 .2 Not Available [facility] ([facility]) [address] [place], [address], 06/03/2019 16:07:45 06/03/19 20 06/03/2019 CMP, serum or plasm a protein, total 6.8 g/dL 6.0-8. 5 Not Available [facility] ([facility]) [address] [place], [address], 06/03/2019 16:07:45 06/03/19 20 06/03/2019 CMP, serum or plasm a albumin 4.2 g/dL 3.8-4. 9 Not Available [facility] ([facility]) [address] [facility] [place], [address], 06/03/2019 16:07:45 06/03/19 20 06/03/2019 CMP, serum or plasm a globulin, total 2.6 g/dL 1.5-4. 5 Not Available [facility] ([facility]) [address] [place], [address], 06/03/2019 16:07:45 06/03/19 20 06/03/2019 CMP, serum or plasm a A/G ratio 1.6 1.2-2. 2 Not Available [facility] ([facility]) [address] [place], [address], 06/03/2019 16:07:45 06/03/19 20 06/03/2019 CMP, serum or plasm a bilirubin, total 0.7 mg/dL 0.0-1. 2 Not Available [facility] ([facility]) [address] [place], [address], 06/03/2019 16:07:45 06/03/19 20 06/03/2019 CMP, serum or plasm a alkaline phosphatase 84 IU/L 39-117 Not Available [facility] ([facility]) [address] [place], [address], 06/03/2019 16:07:45 06/03/19 20 06/03/2019 CMP, serum or plasm a AST (SGOT) 15 IU/L 0-40 Not Available [facility] ([facility]) [address] [place], [address], 06/03/2019 16:07:45 06/03/19 20 06/03/2019 CMP, serum or plasm a ALT (SGPT) 13 IU/L 0-44 Not Available [facility] ([facility]) [address] [place], [address], 06/03/2019 16:07:45 06/03/19 20 06/03/2019 lipid panel , serum cholesterol, total 207 mg/dL 100-19 9 above high normal Not Available [facility] ([facility]) [address] [place], [address], 06/03/2019 16:07:45 06/03/19 20 06/03/2019 lipid panel , serum triglyceride s 118 mg/dL 0-149 Not Available [facility] ([facility]) [address] [place], [address], 06/03/2019 16:07:45 06/03/19 20 06/03/2019 lipid panel , serum HDL cholesterol 56 mg/dL >39 Not Available [facility] ([facility]) [address] [place], [address], 06/03/2019 16:07:45 06/03/19 20 06/03/2019 lipid panel , serum VLDL cholesterol joanne 24 mg/dL 5-40 Not Available [facility] ([facility]) [address] [place], [address], 06/03/2019 16:07:45 06/03/19 20 06/03/2019 lipid panel , serum LDL cholesterol calc 127 mg/dL 0-99 above high normal Not Available [facility] ([facility]) [address] [place], [address], 06/03/2019 16:07:45 06/03/19 20 06/03/2019 lipid panel , serum comment: ANSWERER Not Available [facility] ([facility]) [address] [place], [address], 06/03/2019 16:07:45 06/03/19 20 06/03/2019 magne sium, serum or plasm a magnesium 2.1 mg/dL 1.6-2. 3 Not Available [facility] ([facility]) [address] [facility] [place], [address], 06/03/2019 16:07:46 05/10/19 20 05/10/2019 SPECT , myoca rdial perfu manuel, multi ple [facility] [address], [address] Name: BROOKE MATTHEW : [id number] Date of Servic e: 101 Acct Number : [id number] Order Number : [id number] Locati on: WSURGE Report Number : [id number] Servic e: ADM Navi/ME D Reques ting Physic courtney: Krys Scott th A Catego ry: NUCLEA R MEDICI NE Exam: MYOCAR D PERF CLARITZA MULTI Access ion #: [id number] VH Signs/ Sympto ms: CHEST PAIN [...] reting Cardio logist : Baldomero Hood DO, [facility] Date/T mireille of Dictat ion: 1302 Radiol ogy Reside nt (if applic able): Approv ed By Attend ing Radiol ogist: Jo Arreaga DO 1302 Orderi ng physic courtney: Krys Scott Other provid ers: Juan Monk, UNKNOW N, Octavio allen, UNKNOW N, , , [email or web address] (Radiology) [address] [place] [address], [address], 05/10/2019 13:55:43 05/23/19 20 05/23/2019 elect daniel dawn crandall [facility] [address] [place] [address] PATIEN T: PARROT T,HENR Y DEP ER/ : WER 3810 HEART RATE 87 RR Interv al 690 Atrial Rate 87 P-R Interv al 220 P Durati on 112 P Horizo ntal Dalhart -22 P Front Dalhart 85 Q Onset 502 QRSD Interv al 173 QT Interv al 427 QTcB 514 QTcF 483 QRS Horizo ntal Dalhart QRS Dalhart 100 I-40 Horizo ntal Dalhart 26 I-40 Front Dalhart 17 T-40 Horizo ntal Dalhart 167 T-40 Front Dalhart 171 T Horizo ntal Dalhart -8 T Wave Dalhart 45 S-T Horizo ntal Dalhart 2 S-T Front Dalhart 43 ECG Severi ty - ABNORM AL ECG - ECG Impres manuel Sinus rhythm ECG Impres manuel FIRST DEGREE AV BLOCK ECG Impres manuel RBBB _ (Justin burns Signed by) Trans D T: 1352 Signed D T: 8339 Report #: [id number] Orderi physic courtney: Room Emerge ncy Other provid ers: Room Emerge ncy, , , Malorie Hall , , , [email or web address] [facility] (Radiology) [address] [place] [address], [address], 05/25/2019 13:45:46 05/29/19 20 05/26/2019 pharm acolo gic nucle ar stres s test [facility] [address] [place] [address] PATIEN T: JOSE T,KERIR Y DIS Navi/ME D 3810 W22S : Non-In vasive Cardio logy Labora tory ___ DATE OF SERVIC E: 2019 PHARMA COLOGI C STRESS INDICA TION: Chest pain. REFERR ING PHYSIC COURTNEY: Octavio allen M.D. INTERP RETING CARDIO LOGIST : Tre Howell D.O for this EKG portio n of the test. SUPERV ISING PRACTI TIONER : Valeriy pena PA-C. TRINITY RODNEY DATA: The annia sanchez is 69 inches tall, weighs 239 pounds . Maximu m predic devendra heart rate is 163 beats per minute . Trinity rodney EKG demons trates normal sinus rhythm with right bundle -branc h block, heart rate 69 beats per minute , blood pressu re 140/73 mmHg, oxygen satura tion at baseli ne is 97% on room air. The patien t was assess ed by the jairoti tioner and deemed approp riate for emiin g. Inform ed constonia t was discus sed with the patitonia t and signed by the patien t. TEST DATA: The patitonia t receiv ed Lexisc an 0.4 mg [...] DT: 2019 TT: 04:25 P Doc #: [id number] cc: MD Tre Sosa DO Neil Scanne ll, DJosselinOJosselin Orderi real physic courtney: Other provid ers: Bry whipple, UNKNOW N, Octavio allen, UNKNOW N, Octavio allen, Bry Martin [email or web address] [facility] (Radiology) [address] [place] [address], [place], [address], 06/03/2019 11:29:21 05/31/19 20 05/23/2019 XR, chest No observ ation record ed. [email or web address] Not Available 2019 10:10:46 05/31/19 20 05/23/2019 CT, brain , w/o contr ast No observ ation record ed. Not Available 2019 10:11:27 05/31/19 20 05/23/2019 CT, cervi joanne spine , w/o contr ast No observ ation record ed. [email or web address] Not Available 2019 10:12:04 05/31/19 20 05/09/2019 XR, chest No observ ation record ed. ervai Not Available 2019 10:12:28 05/31/19 20 09/05/2016 CT, abdom en + pelvi s, w/ contr ast No observ ation record ed. [email or web address] Not Available 2019 10:13:10 05/31/19 20 09/05/2016 XR, chest No observ ation record ed. erv Not Available 2019 10:13:35 05/31/19 20 09/07/2016 XR, thora colum bar spine , 2 or 3 view No observ ation record ed. [email or web address] Not Available 2019 10:14:34 05/31/19 20 05/10/2019 [...] Available 2019 10:27:44 05/31/19 20 05/15/2019 elect rocar diogr am inter preta tion* No observ ation record ed. [email or web address] Not Available 2019 10:28:33 06/03/19 20 elect rocar diogr am No observ ation record ed. [email or web address] [facility] [address] [place] [address], [address], 06/11/2019 15:13:57 07/01/19 20 06/11/2019 XR, chest No observ ation record ed. [email or web address] Not Available 2019 13:41:08 07/01/19 20 06/22/2019 CT, abdom en + pelvi s, w/o contr ast No observ ation record ed. [address], [address], 07/01/2019 13:41:08 07/27/19 21 07/26/2020 elect daniel acevedogr am [facility] [address] [place] [address] [phone] PATIEN T: PARROT T,HENR Y ADM Navi/ME D : W22S 3810 HEART RATE 65 RR Interv al 923 Atrial Rate 65 P-R Interv al 230 P Durati on 116 P Horizo ntal Dalhart -22 P Front Dalhart 93 Q Onset 499 QRSD Interv al 179 QT Interv al 494 QTcB 514 QTcF 507 QRS Horizo ntal Dalhart QRS Dalhart 109 I-40 Horizo ntal Dalhart 22 I-40 Front Dalhart 14 T-40 Horizo ntal Dalhart 181 T-40 Front Dalhart 158 T Horizo ntal Dalhart -14 T Wave Dalhart 71 S-T Horizo ntal Dalhart -5 S-T Front Dalhart 68 ECG Severi ty - ABNORM AL ECG - ECG Impres manuel Sinus rhythm ECG Impres manuel FIRST DEGREE AV BLOCK ECG Impres manuel RBBB _ (Elect sandra lly Signed by) Trans D T: 0658 Signed D T: 1040 Report #: [id number] Orderog ng physic courtney: Juan Monk Other provid ers: Juan Monk, Ermelinda Powell ni, Ermelinda n Sherry ni, UNKNOW N, , , [email or web address] [facility] (Radiology) [address] [place] [address], [address], 07/27/2020 08:34:06 07/27/19 21 07/25/2020 elect daniel seymour am [facility] [address] [place] [address] PATIEN T: JOSE T,HENR Y ADM Navi/ME D : W22S 3810 HEART RATE 69 RR Interv al 870 Atrial Rate 70 P-R Interv al P Durati on 122 P Horizo ntal Dalhart P Front Dalhart Q Onset 505 QRSD Interv al 179 QT Interv al 472 QTcB 506 QTcF 494 QRS Horizo ntal Dalhart 67 QRS Dalhart 104 I-40 Horizo ntal Dalhart 16 I-40 Front Dalhart 29 T-40 Horizo ntal Dalhart 158 T-40 Front Dalhart 185 T Horizo ntal Dalhart -29 T Wave Dalhart 74 S-T Horizo ntal Dalhart -30 S-T Front Dalhart 53 ECG Severi ty - ABNORM AL ECG - ECG Impres manuel Sinus rhythm ECG Impres manuel First degree AV block ECG Impres manuel RBBB _ (Elect sandra lly Signed by) Trans D T: 1311 Signed D T: 1043 Report #: [id number] Orderi ng physic courtney: Michael hernandez Other provid ers: Juan Monk, Ermelinda gonzales, Ermelinda n Sherry ni, UNKNOW N, , , [email or web address] [facility] (Radiology) [address], [place], [address], 07/27/2020 08:36:28 04/21/19 22 03/13/2021 ICD remot e inter rogat ion (PROC ) No observ ation record ed. [email or web address] Not Available 04/21 18:41:45 Result Notes None recorded. Problems Name Problem SNOMED Code Status Onset Date Resolution Date Notes Provider Name and Address Organization Details Recorded Time Hyperlipid emia 32418891 Active 2019 Coni Reynolds [facility] 0 10:18:02 Gout 65996125 Active 2019 Coni Reynolds [facility] 0 10:18:11 Atrial fibrillati on 86260824 Active 2019 Coni Plymouth [facility] 0 10:18:18 Cardiac pacemaker in situ 165475686 Active 2019 AICD Coni Plymouth [facility] 0 10:23:43 Gastroesop hageal reflux disease 473551983 Active 2019 Coni Reynolds [facility] 0 10:18:33 Clostridiu m difficile colitis 240382479 Active 2019 Coni Pandeyvais [facility] 0 10:18:57 Diabetes mellitus 95306127 Active 2019 diet controlled Coni Gail [facility] 0 10:19:27 Hypothyroi dism 33324572 Active 2019 Coni Pandeyvais [facility] 0 10:19:47 Asthma 170165048 Active 2019 Coni Gail null, [facility] 0 10:20:06 Hypertensi ve disorder 95435555 Active 2019 Coni Gail null, [facility] 0 10:20:35 Coronary arterioscl erosis 45915803 Active 2019 Coni Plymouth null, [facility] 0 10:20:42 Mood disorder 45345694 Active 2019 Coni Gail null, [facility] 0 10:20:55 Benign prostatic hyperplasi a 468522443 Active 2019 Coni Pandeyvais [facility], [facility] 0 10:21:07 Anxiety 34500938 Active 2019 Coni Gail [facility], [facility] 0 10:21:19 Migraine 57598861 Active 2019 Coni Plymouth null, [facility] 0 10:23:01 Obstructiv e sleep apnea syndrome 57646980 Active 2019 Coni Pandeyvais [facility] 0 10:24:35 Problem Notes None recorded. Procedures Surgical History Date Name Laterality Status Provider Name and Address Organization Details Recorded Time 05/20/19 17 Aicd, dual chamber completed Jules faustin [facility] 06/03/2019 11:09:09 06/13/19 09 Other Surgeries completed Jules faustin [facility] 06/03/2019 11:13:13 05/05/19 07 Other Surgeries completed Jules faustin [facility] 06/03/2019 11:22:53 repair of tetralogy of Fallot completed Coni Reynolds [facility] 05/29/2019 10:08:25 Appendectomy completed Coni Reynolds [facility] 05/29/2019 10:08:33 coronary artery bypass graft completed Coni Reynolds [facility] 05/29/2019 10:24:05 Imaging Results None recorded. Procedure Notes None recorded. Medical Equipment None Reported. Allergies Allergen ID Allergen Name Allergen Category Reaction Reaction Severity Criticality Documentation Date Start Date Code Code System Note Provider Name and Address Organization Details Recorded Time 20331109 Lipitor medicatio n hives Not available Not available 05/29/2019 23596 5 RxNorm Coni Reynolds [facility] 0 10:17:26 251000 honey bee venom medicatio n Not available Not available Not available 05/29/2019 34696 7 RxNorm Coni Reynolds [facility] 0 10:25:46 Medications Name Sig [...] Body mass index (BMI) Body height Systolic And Diastolic Provider Name and Address Organization Details Last Updated DateTime 06/03/2019 950803.76 g 35.6 kg/m2 175.26 cm 154/100 mm[Hg] Christophe Saldivar [facility] 06/03/2019 09:19:11 Date Recorded Body height Provider Name an d Address Organization Details Last Updated DateTime 08/09/2019 175.26 cm Andreia Denise [facility] 08/09/2019 12:48:10 Social History Question Answer Notes LastModified by Organizat ion Details LastModified Time Tobacco Smoking Status Never Smoker Coni Reynolds [facility] [place] - [facility] 05/29/2019 10:15:04 What Is Your Level Of Caffeine Consumption? Moderate [email or web address] Information not available 06/03/2019 How Much Tobacco Do You Chew? None Information not available 05/29/2019 What Type Of Diet Are You Following? CARDIAC Information not available 05/29/2019 Cups/cans Per Day: 1 [email or web address] Information not available 06/03/2019 Illicit Drug Use? No Information not available 05/29/2019 Does The Patient Have Fever And Cough Or Shortness Of Breath AND In The Last 14 Days Has The Patient Come In Contact With Someone With Confirmed 2019-nCoV? No [email or web address] Information not available 06/03/2019 How Many Children Do You Have? 0 [email or web address] Information not available 06/03/2019 How Much Tobacco Do You Smoke? No Information not available 05/29/2019 Sex: Unknown Functional Status Question Answer Note LastModified by Organizat ion Details LastModified Time What is your level of alcohol consumption? 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 Never used smokeless tobacco [email or web address] Information not available 06/03/2019 What is your occupation? disabled Information not available 05/29/2019 Do you or have you ever used e-cigarettes or vape? Never used electronic cigarettes [email or web address] Information not available 06/03/2019 Mental Status None recorded. Family History Relationship Description Onset Age of this Age Resolved Age Notes LastModified by Organization Details LastModified Time Mother Heart disease Not available 2019 10:15:57 Mother Family history of stroke Not available 2019 10:16:21 Brother Chronic obstructive pulmonary disease Not available 2019 10:16:35 Sister Diabetes mellitus Not available 2019 10:16:49 Father Malignant neoplasm of penis passed Not available 2019 10:17:04 Medical History No medical history recorded. Past Encounters Encounter ID Performer Location Encounter Start Date Encounter Closed Date Diagnosis/Indication Diagnosis SNOMED-CT Code Diagnosis ICD10 Code Diagnosis IMO Codes Diagnosis Note [id number] Tre Howell DO [facility] [address], [address] [place] [address] 06/03/2019 08:26:27 06/03/2019 10:11:27 Tetralogy of Fallot 30315223 Q21.3 He has hx of tetrology of fallot repaired. Doesn't he's had surgery for this doesn't recall specific details. He has seen Dr Vinicio Cordero at [facility] from what he tells me. I [...] for VT. Obstructiv e sleep apnea syndrome 88290072 G47.33 Weight loss advised. He has obstructiv e sleep apnea. He states he seeing someone get set back up with CPAP. I spent mL (especiall y with history of glycogen heart disease to treat his obstructiv e sleep apnea. Precordial pain 71744496 R07.2 Chest pains when he was hospitaliz ed in May 2019. They seem to be more muscular in nature. They were reproducib le. He seems to have a chronic chest pain syndrome. Nuclear stress at the time May 2019. Showed no ischemia. He can use Tylenol As needed. Aortic aneurysm 45450195 I71.9 echo May 2019 a root 4.2 cm AA 4.0 cm BP control as above and echo one year Essential hypertension 64071144 I10 Blood pressure today is elevated.h e states off meds 2 days He previously been on amlodipine 2.5 mg daily. I will represcrib ed this for him. In addition to following a low sodium diet and weight loss. I'm also going to start him on lisinopril BMP in 1 week. Ventricula r tachycardia 54545611 I47.2 He is on sotalol 80 mg [...] may replete if needed Mixed hyperlipidemia 267 590567 E78.2 Has history of hyperlipid emia. He [...] a statin. Right bund le branch block 79737129 I45.19 Bipolar branch block underlying sinus rhythm also has a first-degr ee AV block. Common finding in patient with congenital underlying heart disease. Automatic implantable cardiac defibrillator in situ 303298557 Z95.810 Seen Leonel dual-chamb er ICD in place. I interrogat ed her device today. Occasional few beats of nonsustain ed VT. But no recent shocks. Device is otherwise functionin g well. We will take over monitoring his device. We will request transfer of monitoring his device from his primary cardiologi and they state. Health Concerns Section Related Observation LastModified by Organization Detai ls LastModified Time None Recorded Concern Status LastModified by Organization Details LastModified Time None Recorded Advance Directives Directive N: HCP: Megha Aguayo Payers Insurance Date Sequence Insurance Name Policy Number Policy Tapia Covered Member ID Tapia Member ID Guarantor Name 04/26/2021 1 [facility] - DOS PRIOR TO 2022 - DUAL ELIGIBLE (MEDICARE REPLACEMENT/AD VANTAGE - HMO) Joaquín Teranrott [id number] Joaquín Floyd 07/29/2020 2 [place] [facility] Joaquín Floyd [id number] Joaquín Trinway 09/05/2016 1 *SELF PAY* He nry Trinway 07/29/2020 2 [place] [facility] Joaquín Floyd [id number] Joaquín Teranrott Notes Date Note Type Note Provider Name and Address Organization Details Recorded Time 06/03/2019 text/html ROS as noted in the HPI 59 male. Hx of Tetrology of Fallot. Has Stude ICD and hx of ?VT. He moved here from . Living in [facility] here. Used follow with Saulo Nix at [facility].and Vinicio Cordero at [facility] He was in hosp few weeks [...] he is feeling much better now.Going to [facility] now as well. He denies CP. he has bene off his BP meds for last 2 days. No syncope no palpitations. Tre Howell, DO [address] [facility], [place], [address], [facility] - [facility]. 06/04/2019 13:52:59
--- OUTSIDE RECORDS SUMMARY | 2025-02-14 21:23 | XMS_ITS | Clinical Summary ---
Author Organization [facility] Address [address] [place] [address] Care Team Providers Care Fire Inspector Name Role Phone Lauren Solomon MD MPH Primary Care Provider [phone]- [phone] Allergies Active Allergy Reactions Criticality Noted Date [...] he presented to the emergency room at [facility]. He was discharged from the emergency room, later that same night he started noticing chest pressure radiating to his left ribs around 1 AM last night. He was supposedly on his way to the [facility] when his chest pressure began. [...] global hypokinesis, dilated RV, mild AR, mild ME and moderate TR. He has also been [...] global hypokinesis, dilated RV, mild AR, mild ME and moderate TR. He has also been [...] of 45%. Follows with Dr. Nix at [facility]. etiology of HF was Non-ischemic cardiomyopathy, s/p [...] [facility] AICD placement 05/2016. His primary fruit thinner is Dr. Tobin, and takes Toprol Xl [...] (08/19/2019): Added automatically from request for surgery [id number] Assessment & Plan (03/04/2023 4:14 PM EST): Patient complaining of left sided chest pain which is at least sometimes reproducible. Patient has had extensive cardiac workup in the past at [facility], and [facility] which has all been negative. Coronary CT has been -ve, Nuclear stress test was also -ve for any ischemic changes. Patient did have 12 beats of Vtach which was noted on tele but was not seen on ICD interrogration at [facility]. Echo was done at [facility] in February which was normal as well. [...] tomorrow Arrange f/u soon with his primary fruit thinner Non-cardiac chest pain 07/26/2019 Assessment & Plan [...] no evidence of ischemia although apical anterior MD cannot be excluded due to known right [...] on T waves. Patient states that his Clinical Reimbursement Specialist had discussed ablation with him in the [...] of Fallot, status postrepair (remote). Follows at [facility] and [facility] for congenital heart disease. 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 Assessment & [...] heparin drip if cardiac cath is warranted [id number] Stroke Risk (5-year stroke rate based on [...] history of paroxysmal AF, not on anticoagulation ([id number] of 1). He currently takes Toprol XL [...] recently. PT/OT recommends short term rehab. Plan: -health services rn recs for placement -Fall precautions Encounters Date Type Department Care Team Description 12/05/2024 3:18 PM EDT - 12/06/2024 1:15 AM EDT Hospital Encounter [facility] Emergency Department [address] [place] [address] Aden Baldwin MD Patel, Viral C., MD [...] 04/03/2024 COVID-19 Vaccine ( season) 2024 03/08/2022, 06/03/2020, 05/06/2020 Influenza Vaccine (#1) 2024 , 12/14/2023, 03/17/2023, [...] complete this topic Procedures * Due to [place] state law, this organization might not be [...] AUTO DIFFERENTIAL STAT 12/05/2024 5:27 PM EDT ECG 12-LEAD STAT 12/05/2024 3:[address] CERVICAL SPINE WO CONTRAST [...] to Health Maintenance Results * Due to [place] state law, this organization might not be sharing negative HIV tests. * Troponin T, High Sensitivity (12/05/2024 8:48 PM EDT) Only the most recent of3 resultswithin the time period is included. Troponin T High Sensitivity 8 <=21 ng/L 12/05/2024 9:28 PM EDT [facility] Comment: Gu-Pyiyakti-T level of 52 ng/L or higher at [...] be evaluated in line with the 4th [place] Definition of AMI. Troponin baseline and serial [...] MD LAB BLOOD ORDERABLES Final R esult [facility] [address] [place] [address], [place] * XR Chest 2 vw. Standard [...] to obtain the completed interpretation. Workstation ID: [id number] Narrative 12/05/2024 7:32 PM EDT COMPARISON: 07/11/2024. FINDINGS AND Resulting Agency Comment [id number] Procedure Note Mack Cook MD - 12/05/2024 [...] possible to obtain thecompleted interpretation. Workstation ID: [id number] us Aden Baldwin MD IMG XR PROCEDURES Final Resu lt * (ABNORMAL) CBC Auto Differential (12/05/2024 5:27 PM EDT) WBC 4.9 3.8 - 10.8 10*3/uL 12/05/2024 6:03 PM EDT [facility] RBC 3.50(L) 4.20 - 5.80 10*6/uL 12/05/2024 6:03 PM EDT [facility] Hemoglobin 9.4(L) 13.2 - 17.1 g/dL 12/05/2024 6:03 PM EDT [facility] Hematocrit 29.7(L) 38.5 - 50.0 % 12/05/2024 6:03 PM EDT [facility] MCV 84.9 80.0 - 100.0 fL 12/05/2024 6:03 PM EDT [facility] MCH 26.9(L) 27.0 - 33.0 pg 12/05/2024 6:03 PM EDT [facility] MCHC 31.6(L) 32.0 - 36.0 g/dL 12/05/2024 6:03 PM EDT [facility] RDW 13.6 11.0 - 15.0 % 12/05/2024 6:03 PM EDT [facility] Platelets 92(L) 140 - 400 10*3/uL 12/05/2024 6:03 PM EDT [facility] MPV 11.6 7.5 - 12.5 fL 12/05/2024 6:03 PM EDT [facility] Neutrophil % 55.6 % 12/05/2024 6:03 PM EDT [facility] Immature Grans % 1.0(H) 0.0 - 0.9 % 12/05/2024 6:03 PM EDT [facility] Lymphocyte % 25.5 % 12/05/2024 6:03 PM EDT [facility] Monocyte % 11.8 % 12/05/2024 6:03 PM EDT [facility] Eosinophil % 5.5 % 12/05/2024 6:03 PM EDT [facility] Basophil % 0.6 % 12/05/2024 6:03 PM EDT [facility] Neutrophil # 2.72 1.50 - 7.80 10*3/uL 12/05/2024 6:03 PM EDT [facility] Immature Grans # 0.05(H) <=0.03 10*3/uL 12/05/2024 6:03 PM EDT [facility] Lymphocyte # 1.30 0.85 - 3.90 10*3/uL 12/05/2024 6:03 PM EDT [facility] Monocyte # 0.60 0.20 - 0.95 10*3/uL 12/05/2024 6:03 PM EDT [facility] Eosinophil # 0.30 0.02 - 0.50 10*3/uL 12/05/2024 6:03 PM EDT [facility] Basophil # <0.03 0.00 - 0.20 10*3/uL 12/05/2024 6:03 PM EDT [facility] nRBC % 0.0 /100 WBCs 12/05/2024 6:03 PM EDT [facility] nRBC # <0.01 <0.01 10*3/uL 12/05/2024 6:03 PM EDT [facility] Blood Structure of peripheral vein / Unknown Venipuncture / Unknown 12/05/2024 5:27 PM EDT 12/05/2024 5:37 PM EDT us Aden Baldwin MD LAB BLOOD ORDERABLES Final R esult [facility] [address] [place] [address], [place] * (ABNORMAL) BMP - Basic Metabolic Panel (12/05/2024 5:27 PM EDT) NA 140 135 - 145 mmol/L 12/05/2024 6:13 PM EDT [facility] K 4.5 3.5 - 5.3 mmol/L 12/05/2024 6:13 PM EDT [facility] Cl 107 98 - 107 mmol/L 12/05/2024 6:13 PM EDT [facility] CO2 23 22 - 32 mmol/L 12/05/2024 6:13 PM EDT [facility] BUN 19 7 - 23 mg/dL 12/05/2024 6:13 PM EDT [facility] Creatinine 1.26 0.60 - 1.30 mg/dL 12/05/2024 6:13 PM EDT [facility] Glucose 95 65 - 99 mg/dL 12/05/2024 6:13 PM EDT [facility] Calcium 8.1(L) 8.6 - 10.5 mg/dL 12/05/2024 6:13 PM EDT [facility] Anion Gap 10 5 - 15 12/05/2024 6:13 PM EDT [facility] eGFR 64 >=60 mL/min/1. 73m2 12/05/2024 6:13 PM EDT [facility] Comment:The estimated glomer ular [...] MD LAB BLOOD ORDERABLES Final R esult [facility] [address] [place] [id number], [place] * ECG 12 lead (12/05/2024 3:27 PM EDT) Ventricular Rate EKG 74 BPM MUSE EKG Atrial Rate 74 BPM MUSE EKG ME Interval 208 ms MUSE EKG QRS Interval 176 ms MUSE EKG QT Interval 478 ms MUSE EKG QTC Interval 530 ms MUSE EKG P [place] 66 degrees MUSE EKG R [place] 106 degrees MUSE EKG T Wave [place] 54 degrees MUSE EKG 12/05/2024 3:27 PM EDT 12/13/2024 10:22 AM EDT Impressions MUSE EKG - 12/13/2024 10:22 AM EDT NORMAL SINUS RHYTHM WITH FREQUENT ATRIAL PACED COMPLEXES AND PREMATURE ATRIAL CONTRACTIONS RIGHT BUNDLE BRANCH BLOCK ABNORMAL ECG WHEN COMPARED WITH ECG OF 11-Jul-2024 15:18, PREMATURE ATRIAL COMPLEXES AND ATRIAL PACED COMPLEXES ARE NOW PRESENT Confirmed by Titus Daley ([id number]) on 12/13/2024 10:22:13 AM Narrative Procedure Note Titus Daley MD - 12/13/2024 IMPRESSION: NORMAL SINUS RHYTHM WITH FREQUENT ATRIAL PACED COMPLEXES AND PREMATUREATRIAL CONTRACTIONS RIGHT BUNDLE BRANCH BLOCK ABNORMAL ECG WHEN COMPARED WITH ECG OF 11-Jul-2024 15:18, PREMATURE ATRIAL COMPLEXES AND ATRIAL PACED COMPLEXES ARE NOW PRESENT Confirmed by Titus Daley ([id number]) on 12/13/2024 10:22:13 AM us Aden Baldwin MD ECG ORDERABLES Final Result MUSE EKG * CT Cervical Spine WO Contrast (12/05/2024 [...] to obtain the completed interpretation. Workstation ID: [id number] Up-to-date CT equipment and radiation dose reduction techniques were employed. CTDIvol: 27.0 - 59.9 mGy. DLP: 1851 mGy-cm. The following accession numbers are related to this dose report [id number]: [id number] Narrative 12/05/2024 3:22 PM EDT Examination: CT [...] severe left neuroforaminal stenosis. Resulting Agency Comment [id number] Procedure Note Daron Garza MD - 12/05/2024 [...] changes of the cervical spine, particularly at C3-M2kdzzq there appears to be severe spinal canal stenosis and severe rightand moderate to severe left neuroforaminal stenosis. If this radiology report contains a blank impression section, it is anincomplete radiology report. Please contact the interpreting radiologistor applicable radiology division as soon as possible to obtain thecompleted interpretation. Workstation ID: [id number] Up-to-date CT equipment and radiation dose reduction techniques wereemployed. CTDIvol: 27.0 - 59.9 mGy. DLP: 1851 mGy-cm. The followingaccession numbers are related to this dose report [id number]: [id number] Gilbert Stearns MD IMG CT PROCEDURES Final [...] to obtain the completed interpretation. Workstation ID: [id number] Up-to-date CT equipment and radiation dose reduction techniques were employed. CTDIvol: 27.0 - 59.9 mGy. DLP: 1851 mGy-cm. The following accession numbers are related to this dose report [id number]: [id number] Narrative 12/05/2024 3:16 PM EDT EXAMINATION: CT [...] right mastoid air cells. Resulting Agency Comment [id number] Procedure Note Daron Garza MD - 12/05/2024 [...] possible to obtain thecompleted interpretation. Workstation ID: [id number] Up-to-date CT equipment and radiation dose reduction techniques wereemployed. CTDIvol: 27.0 - 59.9 mGy. DLP: 1851 mGy-cm. The followingaccession numbers are related to this dose report [id number]: [id number] Gilbert Stearns MD [facility] CT PROCEDURES Final Result * HEART & VASCULAR - SCANNED (12/05/2024) Only the most recent of2 resultswithin the time period is included. Anatomical Region Laterality Modality Other Onbase Scan Diane SCANNED PROCEDURES Final Resu lt * (ABNORMAL) Hemoglobin A1c (10/03/2022 8:30 AM EDT) Hemoglobin A1C 6.7(H) <5.7 % of total Hgb 10/03/2022 4:36 PM EDT [facility] Comment: For someone without known diabetes, a [...] (MG/DL) 146 mg/dL 10/03/2022 4:36 PM EDT [facility] eAG (MMOL/L) 8.1 mmol/L 10/03/2022 4:36 PM EDT [facility] Blood Structure of peripheral vein / Unknown Venipuncture / Unknown 10/03/2022 8:30 AM EDT 10/03/2022 8:36 AM EDT Narrative [facility] IZZY - 10/03/2022 4:36 PM EDT [facility] Received Date:[id number] Dank Bob MD LAB BLOOD ORDERABLES Final Res ult [facility] [place] [address] [facility] [address], [place] [address], [facility] [address], [place] [address], * Hepatitis C Antibody w/Reflex to HCV RNA, Quantitative PCR (08/27/2019 2:07 PM EDT) Hepatitis C Antibody NON-REACT GALO NON-REACT GALO 08/28/2019 1:42 AM EDT [facility] Signal To Cut-Off 0.08 <1.00 08/28/2019 1:42 AM EDT [facility] Comment: HCV antibody was non-reactive. There is no laboratory evidence of HCV infection. In most cases, no further action is required. However, if recent HCV exposure is suspected, a test for HCV RNA (test code 68351) is suggested. For additional information please refer to http://education.myGreek/faq/CFI54j5 (This link is being provided for informational/ educational purposes only.) Blood Structure of peripheral vein / Unknown Venipuncture / Unknown 08/27/2019 2:07 PM EDT 08/27/2019 2:13 PM EDT Narrative GEOVANNA MAGANA - 08/28/2019 1:42 AM EDT [facility] Received Date:[id number] Jomar Leung MD LAB BLOOD ORDERABLES Final Resul t [facility] [address] [facility] [address], [place] [address], [place] [phone] [employer] [address], [place] [address], [place] [phone] from Last 3 Months or Most Recently Relevant to Health Maintenance Insurance [facility] [place] [id number] Advance Directives Documents on File Type Date Recorded 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
== END 2025-02-14 15:48 | disposition home or self-care (01) ==
PROVIDERS: Registered Nurse Emergency; Emergency Provider Emergency Medicine; PCP Internal Medicine
DX: R07.2 Precordial pain (principal); M54.50 Low back pain, unspecified; R00.0 Tachycardia, unspecified; Z95.810 Presence of automatic (implantable) cardiac defibrillator; Z79.899 Other long term (current) drug therapy
CPT/HCPCS: 36415; 80053; 81003; 84484; 85025; 93005; 99284

== ENCOUNTER → 2025-02-14 12:28 | Outpatient (BNV) | payer OTHER, SELFPAY | PROVIDERS: Emergency Provider Emergency Medicine; PCP Internal Medicine; Visit Provider Internal Medicine Cardiovascular Disease | DX: I45.10 Unspecified right bundle-branch block (principal) | CPT/HCPCS: 93010 ==